=== PATIENT | female | born 1940 | race Caucasian/White ===

== ENCOUNTER 2024-11-30 10:23 | Observation (INO) | payer MEDICARE, SELFPAY ==
[2024-11-30 10:24] VITALS: BP 135/61; PULSE 84; RESP 14; TEMP 36.6; O2SAT 94; BMI 23.0
--- NOTE | 2024-11-30 10:35 | EDS_ITS ---
HPI History of Present Illness Chief Complaint: Back Detail of Chief Complaint: Atraumatic neck pain Informant: patient Onset/Context/Timing Onset: Days Context: Sudden Onset Timing: Continuous Quality: Sharp pain Location: Posterior neck Current Severity: Mild Maximum Severity: Severe Worsened by: Any type of movement Relieved by: Nothing Associated Symptoms Associated Symptoms: No radicular pain, no paresthesia, no weakness in her upper extremities Narrative Narrative: Patient is an 84-year-old woman. She presents from home by ambulance because of severe pain. Her daughter called the ambulance. She has taken [id number] medication and applied heat with no benefit. She denies direct or indirect trauma. She denies fall asleep on the sofa or chair. She denies radicular pain. She states she had some tingling in all her fingers yesterday. She did not have that before. She denies headache. She denies visual, ocular auditory symptoms. She denies cardiac or respiratory symptoms. She denies any new symptoms in her legs. She had fusion of the lumbar spine by Dr. El Jo at [facility]. She denies fever, chills night sweats. Denies weight gain or weight loss. She denies any recent dental procedures. Prior similar symptoms: No Recent Illness/Hospitalization: Yes [facility]SH [facility], 1928–1983 Home Medications ?Medication ?Instructions ?Recorded ?Last Taken ?Type hydroxyzine HCl 10 mg tablet 10 mg PO QHS 11/30/24 Unk nown History sertraline 100 mg tablet 200 mg PO DAILY 11/30/24 Unk nown History sumatriptan succinate 50 mg tablet mg PO 11/30/24 Unkn own History Allergy/AdvReac Type Severity Reaction Status Date / Time No Known Allergies Allergy Verified 11/30/24 10:25 Social History (Updated 11/30/24 @ 10:[address] Dorian Ballard MD) household members: family Smoking Status: Never smoker ROS ROS ED Constitutional Constitutional ED: Denies chills, fever(s), subjective, sweats or weight loss Eyes Eyes: Denies blurry vision or change in vision ENT ENT ED: Denies ear pain, rhinorrhea or sore throat Cardiovascular Cardiovascular: Denies chest pain, palpitations or racing heartbeat Respiratory/Chest Respiratory/Chest: Denies cough, dyspnea or dyspnea on exertion Gastrointestinal Gastrointestinal: Denies abdominal pain, nausea or vomiting Genitourinary Genitourinary ED: Denies dysuria, hematuria or urinary frequency Musculoskeletal Musculoskeletal: Reports neck pain; Denies arthralgias, back pain or myalgias Integumentary Denies rash Neurologic Neurologic: Denies paresthesias or weakness Hematologic/Lymphatic Hematologic/Lymphatic: Reports systems reviewed and no addt'l complaints, except as documented EXAM Physical Exam Const Vital Signs: 11/30/24 10:24 11/30/24 13:18 Temperature 98 F 98.1 F Temperature Source Temporal Pulse Rate 84 70 Respiratory Rate 14 14 Blood Pressure 135/61 H 113/66 Blood Pressure Mean 85 81 Pulse Ox 94 93 Oxygen Delivery Method Room Air Positive well nourished and well developed Constitutional Narrative: Patient appears uncomfortable. She is a thin woman. General Appearance ED: well developed; Negative for cyanotic, diaphoretic, NAD or pallor HEENT Reports moist mucous membranes HEENT Narrative: Head is atraumatic and normocephalic. Ears are normal. TMs normal. Nares are patent. Posterior pharynx is normal. trauma and tenderness Eyes PERRL and EOMs intact bilaterally General Eye ED: Negative for pale conjunctiva or scleral icterus Neck no lymphadenopathy, No supple and no JVD Neck Narrative: Patient has limited range of motion i.e. flexion, extension rotation right or left. She has predominantly Ilir lateral posterior cervical spine tenderness. There is no posterior cervical lymphadenopathy. There are no dermatologic lesions noted. Resp normal respiratory effort and clear to auscultation bilaterally Cardio regular rate, regular rhythm, S1 normal heart sound, S2 normal heart sound and no murmurs GI normal to inspection, nondistended, normoactive bowel sounds, non-tender, non-distended and no masses; Negative for hepatosplenomegaly Back/Spine Cervical Spine: cervical spine tenderness Cervical Spine Tenderness Details: C2, C3, C4, C5, C6 and C7 Thoracic Spine / Upper Back: Negative for thoracic spinal tenderness Lumbar Spine / Lower Back: Negative for lumbar spinal tenderness Extremity Extremity Narrative: Patient has significant surgical scar right knee. There is no clubbing or cyanosis of the upper or lower extremities. Patient has palpable distal pulses upper and lower extremity. Neuro oriented x3, CN's II-XII intact bilaterally and no sensory deficits noted Neuro Narrative: DTR are 3-4+ bicep, brachialis and tricep and 1+ at the patella and ankle. There is no abnormal sensation see 5 through T1 dermatome right or left upper extremity. Sensorium / Orientation: alert Motor Exam: strength 5/5 throughout Skin no rashes or lesions noted, no wounds and skin turgor normal General Skin Exam: Negative for elasticity normal, jaundice or pallor MDM MDM MDM Narrative Medical decision making narrative: Patient with atraumatic neck pain without radicular pain or sensory deficit. Her reflexes are hyperreflexic. Will start with x-ray. She was medicated with morphine for her pain. There are no prior records available Lab Data Attestation: I reviewed the patient's lab results. Lab results narrative: White count is slightly elevated. Patient does have anemia with normal indices. BMP has a normal BUN and creatinine however estimated creatinine clearance calculated is 37.5 with an estimated GFR of 80. Glucose slightly evaded at 112. Labs: Laboratory Results - last 24 hr 11/30/24 10:49 WBC 12.4 H RBC 3.31 L Hgb 9.0 L Hct 28.3 L MCV 85.5 MCH 27.2 MCHC 31.8 L RDW Std Deviation 45.6 H RDW Coeff of David 14.6 Plt Count 334 MPV 10.4 Sodium 141 Potassium 4.1 Chloride 102 Carbon Dioxide 27.9 Anion Gap 11 BUN 10 Creatinine 0.74 Estim Creat Clear Calc 37.60 L Est GFR (MDRD) Non-Af 80 BUN/Creatinine Ratio 14.0 Glucose 112 H Calcium 8.6 Radiography Chest X-Ray - ED: Read by ED Physician (5 view x-ray of the neck reveals some minimal degenerative changes. No significant narrowing of the cervical foramens right or left.) Diagnostic Testing: Clinical Impression(s) from Imaging Studies Cervical Spine X-Ray 11/30/24 11:00 IMPRESSION: Moderate cervical degenerative changes. Slight leftward offset of the dens of the axis, likely due to patient positioning. If continued clinical concern, CT C-spine could be obtained for further evaluation. Reading Location: [id number] Management Discussion w/another healthcare provider: Hospitalist (Spoke to Dr. Larkin. Clarification guarding patient's paresthesia, observation with consult to OT PT and case management) Treatment and Re-Evaluation :: There is states they were able to get patient off. She did ambulate with walker. She ambulated slowly. Concern by her nurse, Stevenson, is that daughter is not able to lift her so that she is able to walk. Comments:: The social services technician informed that her insurance requires a 3-day hospital stay. She just had qualified for 3-day hospital stay. She recommend observation status with OP and PT evaluation and case management to work with her insurance company for placement at nursing facility based on her age and risk for fall. Discharge Plan Dx/Rx/DC Orders Clinical Impression: Acute cervical myofascial strain, Difficulty in walking, Adult failure to thrive, Chronic anemia, Elevated blood-pressure reading without diagnosis of hypertension Disposition Disposition: Acute Care Hospital [facility]
[2024-11-30 10:55] LABS: Hematocrit 28.3 % (37-47); Mean Corp Hgb Conc 31.8 g/dL (32-36); Mean Corpuscular Hgb 27.2 pg (27.0-32.0); Mean Corpuscular Volume 85.5 fL (81-99); Mean Platelet Vol. 10.4 fl (6.2-12.0); Platelet Count 334 K/mm3 (150-450); RBC Distribution Width CV 14.6 % (11.6-14.6); RBC Distribution Width SD 45.6 fl (35.1-43.9); Red Blood Count 3.31 M/mm3 (4.2-5.4); White Blood Count 12.4 K/mm3 (4.4-11.0)
[2024-11-30] MEDS: Ondansetron 4 MG/2 ML Vial IV (10:55)
[2024-11-30] MEDS: Morphine 4 MG/ML Syringe IV (10:55)
--- NOTE | 2024-11-30 11:00 | RAD_ITS ---
PROCEDURE: CERV SPINE 4 OR 5 VIEWS 11/30/2024 REASON FOR EXAM: NECK PAIN TECHNIQUE: CERV SPINE 4 OR 5 VIEWS COMPARISON: None. FINDINGS: Vertebrae: Severe osseous demineralization. Mild multilevel vertebral body height loss. Slight leftward offset of the dens of axis on the odontoid radiograph. The bilateral lateral atlantoaxial joints are grossly symmetric. Disc spaces: At least moderate multilevel degenerative disc disease. Alignment: No obvious traumatic listhesis. Soft tissues: Unremarkable. RAD/Cerv Spine 4 or 5 Views IMPRESSION: Moderate cervical degenerative changes. Slight leftward offset of the dens of the axis, likely due to patient positioning. If continued clinical concern, CT C-spine could be obtained for further evaluation . Reading Location: [id number]
--- NOTE | 2024-11-30 11:00 | RAD_ITS ---
PROCEDURE: CERV SPINE 4 OR 5 VIEWS 11/30/2024 REASON FOR EXAM: NECK PAIN TECHNIQUE: CERV SPINE 4 OR 5 VIEWS COMPARISON: None. FINDINGS: Vertebrae: Severe osseous demineralization. Mild multilevel vertebral body height loss. Slight leftward offset of the dens of axis on the odontoid radiograph. The bilateral lateral atlantoaxial joints are grossly symmetric. Disc spaces: At least moderate multilevel degenerative disc disease. Alignment: No obvious traumatic listhesis. Soft tissues: Unremarkable. RAD/Cerv Spine 4 or 5 Views IMPRESSION: Moderate cervical degenerative changes. Slight leftward offset of the dens of the axis, likely due to patient positioning. If continued clinical concern, CT C-spine could be obtained for further evaluation . Reading Location: [id number]
[2024-11-30 11:11] LABS: Anion Gap 11 (5-15); BUN 10 mg/dL (4-19); Calcium,Total 8.6 mg/dL (7.6-11.0); Carbon Dioxide 27.9 mmol/L (21.0-32.0); Chloride 102 mmol/L (98-108); Creatinine, Serum 0.74 mg/dL (0.70-1.20); EST Glomerular Filtration Rate 80 (>60); Glucose 112 mg/dL (70-99); Potassium 4.1 mmol/L (3.3-5.1); Sodium Level 141 mmol/L (133-145)
[2024-11-30 13:18] VITALS: BP 113/66; PULSE 70; RESP 14; TEMP 36.7; O2SAT 93
--- NOTE | 2024-11-30 13:20 | CASEMGMT ---
Care Management Face to Face with patient for initial transition planning/care coordination assessment in the ED.? This screenplay writer introduced self and role at [facility]. Patient alert and oriented. Patient willing to participate in assessment and is able to answer all questions appropriately.? Care providers, pharmacy, and demographics verified. ?Patient?s daughter, Hyun Purcell, was also present and assisted when needed. Admitting Diagnosis: Acute Cervical Myofascial Strain Other diagnosis history: Including but not limited to: History of back and hand surgery, removal of kidney. PCP: Dr. Leonardo Lyles Specialists: Pain Management through [facility] in [place] (1x month), back surgeon: Dr. Tatiana Morrison and hand surgeon: Dr. Quintero [facility]: [facility] Insurance: Medicare Advantage/[facility] AARP Prescription Benefit: Yes with some co-pays Living Will/HPOA: Yes. Chemical Etch Operator requested Hyun to bring in a copy which she verbalized she would do. LNOK: Patient is and has two daughters.? Hyun resides in [place] and the whereabouts of Cheri are currently unknown as patient does not have any contact with her at this time. Living Arrangements: Patient lives alone in a [facility] apartment. Patient does not have any stairs leading in/out of apartment and denied any environmental barriers. ? Transportation: Patient drives and Hyun also assists when needed. DME: Standard walker, shower chair and grab bar in shower.? Patient appears to be in need of a RTS with handles, grab bar by toilet, lift chair, possible guard rails for bed to pull self-up, Emergency Response Device with a fall detection sensor, and a rollator in case patient needs to sit while ambulating. HHC: PT twice a week through [facility] that is supposed to start this week. Patient also reported she has a nurse and a pillowcase cutter that come out once a week through [facility]. ? SNF/Rehab: Previous SNF stay that was before 1989 after having kidney removed. Patient stated it was in [place]. Community Resources: Denied. Behavioral Health History: Anxiety, not medically treated. Patient described herself as anxious ?every day?. Patient goals: Patient wishes to discharge to an inpatient rehab/shelter facility so that she can receive more intensive skilled therapy so patient can improve strength so that she can transfer on her own, ambulate with ease and decrease overall fall risk.? Patient?s daughter Hyun has been staying with patient in her apartment since patient was discharged following a recent back surgery at [facility].? Patient stated it was supposed to be a 3 day inpatient stay that turned into a 3 week stay so patient declined therapy at that time, thinking she would be able to do it on her own, however patient has declined, become weaker and has developed a new pain in her neck that has developed since her surgery. Patient has been home for roughly a week and a half and Hyun believes that patient had already been approved for [facility]?s TCU. Patient denies any further needs or concerns at this time. Disposition Plan: Observation with referrals for OT and PT; RN CM/SW to follow for discharge planning needs that may arise. Thu Kurtz, CHIEF LOCK OPERATOR, CHAIN PERSON
--- NOTE | 2024-11-30 13:20 | CASEMGMT ---
Care Management Face to Face with patient for initial transition planning/care coordination assessment in the ED.? This flex o writer operator introduced self and role at [facility]. Patient alert and oriented. Patient willing to participate in assessment and is able to answer all questions appropriately.? Care providers, pharmacy, and demographics verified. ?Patient?s daughter, Hyun Purcell, was also present and assisted when needed. Admitting Diagnosis: Acute Cervical Myofascial Strain Other diagnosis history: Including but not limited to: History of back and hand surgery, removal of kidney. PCP: Dr. Leonardo Lyles Specialists: Pain Management through [facility] in [place] (1x month), back surgeon: Dr. Tatiana Morrison and hand surgeon: Dr. Quintero [facility]acy: [facility] Insurance: Medicare Advantage/[facility] AARP Prescription Benefit: Yes with some co-pays Living Will/HPOA: Yes. Animal Health Technician requested Hyun to bring in a copy which she verbalized she would do. LNOK: Patient is and has two daughters.? Hyun resides in [place] and the whereabouts of Cheri are currently unknown as patient does not have any contact with her at this time. Living Arrangements: Patient lives alone in a [facility] apartment. Patient does not have any stairs leading in/out of apartment and denied any environmental barriers. ? Transportation: Patient drives and Hyun also assists when needed. DME: Standard walker, shower chair and grab bar in shower.? Patient appears to be in need of a RTS with handles, grab bar by toilet, lift chair, possible guard rails for bed to pull self-up, Emergency Response Device with a fall detection sensor, and a rollator in case patient needs to sit while ambulating. HHC: PT twice a week through [facility] that is supposed to start this week. Patient also reported she has a nurse and a case filler that come out once a week through [facility]. ? SNF/Rehab: Previous SNF stay that was before 1989 after having kidney removed. Patient stated it was in [place]. Community Resources: Denied. Behavioral Health History: Anxiety, not medically treated. Patient described herself as anxious ?every day?. Patient goals: Patient wishes to discharge to an inpatient rehab/residential facility so that she can receive more intensive skilled therapy so patient can improve strength so that she can transfer on her own, ambulate with ease and decrease overall fall risk.? Patient?s daughter Hyun has been staying with patient in her apartment since patient was discharged following a recent back surgery at [facility].? Patient stated it was supposed to be a 3 day inpatient stay that turned into a 3 week stay so patient declined therapy at that time, thinking she would be able to do it on her own, however patient has declined, become weaker and has developed a new pain in her neck that has developed since her surgery. Patient has been home for roughly a week and a half and Hyun believes that patient had already been approved for [facility]?s TCU. Patient denies any further needs or concerns at this time. Disposition Plan: Observation with referrals for OT and PT; RN CM/SW to follow for discharge planning needs that may arise. Thu Kurtz, GAUGE AND WEIGH MACHINE OPERATOR, EXPORT FREIGHT SPECIALIST
[2024-11-30 13:54] VITALS: BMI 23.0
[2024-11-30] MEDS: Acetaminophen 325 MG Tablet 650 MG PO (14:29)
[2024-11-30] MEDS: oxyCODONE 5 MG Tablet PO ×2 (14:29→21:40)
[2024-11-30 14:38] VITALS: BP 107/57; PULSE 75; RESP 16; TEMP 36.8; O2SAT 94
--- NOTE | 2024-11-30 15:41 | PCM.HP.STD ---
HPI - General General Date of Admission: 11/30/24 Date of Service: 11/30/24 Chief Complaint: Weakness HPI Narrative JERSON TAMEZ, is a 84 F who presents with weakness. Approximate 3 weeks ago, patient underwent back surgery by Dr. Morrison at [facility]. Patient said that she was doing well and then became sick. And when she was sick she was not seen by therapy during then nor thereafter. And she is just progressively gotten weaker during this time. Addition over the past week she has had significant neck pain. She denies any falls or injury. But because the neck pain and weakness, she was seen in the emergency room here. She did have a CAT scan that showed questionable issue with the dens but was given patient had not fallen. But given that she was unable to ambulate safely, the hospital service was contacted for admission. [facility] Medical History Colitis due to Clostridioides difficile Pain in right hip Infection due to Norovirus species Vitamin D deficiency Severe malnutrition Gastroenteritis and colitis, viral Stress incontinence in female Bursitis of hip, right Postsurgical hypothyroidism Adjustment disorder with mixed anxiety and depressed mood Anxiety associated with depression Spinal stenosis of lumbar region Thyrotoxicosis Osteopenia of multiple sites Atrophy of vagina Major depressive disorder Low back pain Urgency of urination Myalgia Osteoporosis of lumbar spine Migraines Chronic GERD without esophagitis GERD (gastroesophageal reflux disease) Hysterectomy planned Colonoscopy planned Home Medications ?Medication ?Instructions ?Recorded ?Last Taken ?Type gabapentin 300 mg capsule 300 mg PO BID 11/30/24 11/29/24 History hydroxyzine HCl 10 mg tablet 10 mg PO QHS 11/30/24 Unknown History levothyroxine 88 mcg tablet 88 mcg PO DAILY 11/30/24 11/30/24 History oxycodone 10 mg tablet 10 mg PO Q4H PRN pain 11/30/24 11/29/24 History sertraline 100 mg tablet 200 mg PO DAILY 11/30/24 11/29/24 History sumatriptan succinate 50 mg tablet 50 mg PO .COMPLEX 11/30/24 Unknown History Allergy/AdvReac Type Severity Reaction Status Date / Time No Known Allergies Allergy Verified 11/30/24 10:25 Surgical History History of arthroplasty of right ankle History of thyroidectomy, total History of nephrectomy, right History of total hip replacement Hx of esophagogastroduodenoscopy Hx of cholecystectomy History of back surgery Social History household members: family Smoking Status: Never smoker ROS ROS Narrative All review of systems were negative except as mentioned above in the history of present illness and the other review of systems. Vital Signs Vital Signs Vital Signs: 11/30/24 10:24 11/30/24 13:18 11/30/24 14:38 Temperature 36.6 C 36.7 C 36.8 C Temperature Source Temporal Oral Pulse Rate 84 70 75 Respiratory Rate 14 14 16 Respiratory Effort Respiratory Depth Respiratory Pattern Blood Pressure 135/61 H 113/66 107/57 L Blood Pressure Mean 85 81 73 Blood Pressure Source Monitor Blood Pressure Position Semi-Fowlers Blood Pressure Location Left Arm Pulse Ox 94 93 94 Oxygen Delivery Method Room Air Room Air 11/30/24 14:46 Temperature Temperature Source Pulse Rate Respiratory Rate Respiratory Effort Normal Non-Labored Respiratory Depth Normal Respiratory Pattern Normal Blood Pressure Blood Pressure Mean Blood Pressure Source Blood Pressure Position Blood Pressure Location Pulse Ox Oxygen Delivery Method Room Air Weight Weight: 53.5 kg Body Mass Index (BMI) 23.0 Physical Exam Const alert and no apparent distress HEENT normocephalic and head/scalp atraumatic Eyes Eyes Narrative: No icterus Neck Neck Narrative: Bilateral posterior cervical muscle tenderness with that being more prominent on the left than on the right. Resp normal respiratory effort, no retractions, no use of accessory muscles and clear to auscultation bilaterally Cardio regular rate, regular rhythm, S1 normal heart sound and S2 normal heart sound GI normal to inspection, nondistended, normoactive bowel sounds, soft to palpation, non-tender and non-distended Extremity normal to inspection and no clubbing, cyanosis or edema Neuro moves all extremities Sensorium / Orientation: awake and alert Psych affect normal Results Lab / Micro Data 11/30/24 10:49 11/30/24 10:49 Labs: Laboratory Results - last 24 hr 11/30/24 10:49: WBC 12.4 H, RBC 3.31 L, Hgb 9.0 L, Hct 28.3 L, MCV 85.5, MCH 27.2, MCHC 31.8 L, RDW Std Deviation 45.6 H, RDW Coeff of David 14.6, Plt Count 334, MPV 10.4, Sodium 141, Potassium 4.1, Chloride 102, Carbon Dioxide 27.9, Anion Gap 11, BUN 10, Creatinine 0.74, Estim Creat Clear Calc 37.60 L, Est GFR (MDRD) Non-Af 80, BUN/Creatinine Ratio 14.0, Glucose 112 H, Calcium 8.6 Imaging Radiology Impression Cervical Spine X-Ray 11/30/24 11:00 IMPRESSION: Moderate cervical degenerative changes. Slight leftward offset of the dens of the axis, likely due to patient positioning. If continued clinical concern, CT C-spine could be obtained for further evaluation. Reading Location: [id number] Assessment & Plan Assessment/Plan (1) Adult failure to thrive: PLAN: Secondary recent back surgery and not being able to engage in therapy due to recent illness and then just not getting reestablished. PT OT evaluate and treat Case management to assist with disposition Anticipate the patient will require [facility] when she is ready for discharge. (2) Acute cervical myofascial strain: PLAN: Atraumatic. I suspect it is probably due to some position she may have slept in. There is no trauma so I do not feel the issue with her dens is concerning at all as she has full range of motion. Neck pain seems to be more muscular anyways. Will schedule acetaminophen, add as needed ketorolac and a Lidoderm patch. PLAN: Plan Recent back surgery: Incision appears to be clean and intact. Follow-up with Dr. Morrison as outpatient. VTE prophylaxis with enoxaparin CODE STATUS: Addressed with the patient. Patient wishes to be full code Charges/Coding Visit Charges Inpatient E&M: 59979 Init Hosp L2
[2024-11-30] MEDS: Lidocaine 5% Patch 1 PATCH TOPICAL (16:40)
[2024-11-30] MEDS: Ketorolac 15 MG/ML Vial IV (16:40)
[2024-11-30] MEDS: 0.9% Saline Lock 10 ML Syringe IV (16:40)
[2024-11-30 21:28] VITALS: BP 116/60; PULSE 65; RESP 16; TEMP 36.6; O2SAT 97
[2024-11-30] MEDS: hydrOXYzine 10 MG Tablet PO (21:40)
[2024-11-30] MEDS: Acetaminophen 500 MG Tablet 1000 MG PO (21:41)
[2024-12-01 05:15] VITALS: BP 123/67; PULSE 69; RESP 16; TEMP 36.7; O2SAT 95
[2024-12-01] MEDS: Acetaminophen 500 MG Tablet 1000 MG PO ×2 (05:17→15:04)
[2024-12-01] MEDS: 0.9% Saline Lock 10 ML Syringe IV ×2 (05:18→12:25)
[2024-12-01] MEDS: Ketorolac 15 MG/ML Vial IV ×2 (05:18→12:24)
--- NOTE | 2024-12-01 07:40 | PN.HOSP_ITS ---
Reason for Visit Reason for Visit: Diagnoses Adult failure to thrive (11/30/24) Strain of muscle, fascia and tendon at neck level, initial encounter (11/30/24) Subjective Subjective Neck pain feeling better Objective Data Objective Data Vital Signs: Vital Signs Temp Pulse Resp BP Pulse Ox O2 Del Method 36.7 C 69 16 123/67 H 95 Room Air 12/01/24 05:15 12/01/24 05:15 12/01/24 05:15 12/01/24 05:15 12/01/24 05:15 12/01/24 05:15 Oxygen Delivery Method Room Air Weight: 53.5 kg Body Mass Index (BMI) 23.0 Intake & Output: Intake and Output for Last 24 Hours 11/29/24 11/30/24 12/01/24 23:59 23:59 23:59 Intake Total 400 / 400 Balance 400 / 400 Lab / Micro Data 11/30/24 10:49 11/30/24 10:49 Labs: Laboratory Results - last 24 hr 11/30/24 10:49: WBC 12.4 H, RBC 3.31 L, Hgb 9.0 L, Hct 28.3 L, MCV 85.5, MCH 27.2, MCHC 31.8 L, RDW Std Deviation 45.6 H, RDW Coeff of David 14.6, Plt Count 334, MPV 10.4, Sodium 141, Potassium 4.1, Chloride 102, Carbon Dioxide 27.9, Anion Gap 11, BUN 10, Creatinine 0.74, Estim Creat Clear Calc 37.60 L, Est GFR (MDRD) Non-Af 80, BUN/Creatinine Ratio 14.0, Glucose 112 H, Calcium 8.6 Radiography Diagnostic Testing: Radiology Impression Cervical Spine X-Ray 11/30/24 11:00 IMPRESSION: Moderate cervical degenerative changes. Slight leftward offset of the dens of the axis, likely due to patient positioning. If continued clinical concern, CT C-spine could be obtained for further evaluation. Reading Location: [id number] Physical Exam Const alert and no apparent distress HEENT head/scalp atraumatic and moist oral mucous membranes Neck Neck Narrative: bilateral paraspinal muscle tenderness, improved. Resp normal respiratory effort, no retractions, no use of accessory muscles and clear to auscultation bilaterally Cardio regular rate, regular rhythm, S1 normal heart sound and S2 normal heart sound GI normal to inspection, nondistended, normoactive bowel sounds, soft to palpation, non-tender and non-distended Extremity normal to inspection, full ROM and no clubbing, cyanosis or edema Neuro oriented x3 and CN's II-XII intact bilaterally Sensorium / Orientation: awake and alert Assessment & Plan Assessment/Plan (1) Adult failure to thrive: PLAN: Secondary recent back surgery and not being able to engage in therapy due to recent illness and then just not getting reestablished. PT OT evaluate and treat Case management to assist with disposition Anticipate the patient will require [facility]ent[facility] facility when she is ready for discharge. (2) Acute cervical myofascial strain: PLAN: Atraumatic. I suspect it is probably due to some position she may have slept in. There is no trauma so I do not feel the issue with her dens is concerning at all as she has full range of motion. Neck pain seems to be more muscular Will schedule acetaminophen, add as needed ketorolac and a Lidoderm patch. PLAN: Plan Recent back surgery: Incision appears to be clean and intact. Follow-up with Dr. Morrison as outpatient. VTE prophylaxis with enoxaparin CODE STATUS: Addressed with the patient. Patient wishes to be full code Charges/Coding Visit Charges Inpatient E&M: 13835 Subs Hosp L1
[2024-12-01 09:17] VITALS: BP 115/54; PULSE 84; RESP 16; TEMP 36.5; O2SAT 96
[2024-12-01] MEDS: Lidocaine 5% Patch 1 PATCH TOPICAL (09:37)
[2024-12-01] MEDS: Enoxaparin 40 MG/0.4 ML Syringe SC (09:37)
[2024-12-01] MEDS: Sertraline 100 MG Tablet 200 MG PO (09:37)
[2024-12-01] MEDS: oxyCODONE 5 MG Tablet PO ×2 (09:38→15:04)
--- NOTE | 2024-12-01 11:45 | CASEMGMT ---
Addendum entered by Tonia Rodriguez 12/01/24 14:26: Social Work- SW received notice that TCU accepted and precert started. Physician notified. Pt notified. SW remains available to follow. KIM Morrison Original Note: Social Work- SW met with pt and pt dtr Hyun to discuss discharge planning. SW introduced self and role; pt agreeable to meeting. Pt dtr reports that pt was referred to TCU over a week ago while pt was at [facility]; pt dtr reports that they did not know if pt was approved. Pt reports TCU remains FOC. SW completed referral to TCU. SW remains available to follow. KIM Morrison
--- NOTE | 2024-12-01 11:45 | CASEMGMT ---
Addendum entered by Tonia Rodriguez 12/01/24 14:26: Social Work- SW received notice that TCU accepted and precert started. Physician notified. Pt notified. SW remains available to follow. KIM Morrison Original Note: Social Work- SW met with pt and pt dtr Hyun to discuss discharge planning. SW introduced self and role; pt agreeable to meeting. Pt dtr reports that pt was referred to TCU over a week ago while pt was at [facility]; pt dtr reports that they did not know if pt was approved. Pt reports TCU remains FOC. SW completed referral to TCU. SW remains available to follow. KIM Morrison
--- NOTE | 2024-12-01 12:25 | CASEMGMT ---
Received tc from Emma at [facility] stating pt was active and requesting update in [facility]. Update sent at this time.
--- NOTE | 2024-12-01 12:25 | CASEMGMT ---
Received tc from Emma at [facility] stating pt was active and requesting update in [facility]. Update sent at this time.
[2024-12-01 14:36] LABS: Absolute Lymphocyte Count 1.92 X10^3/uL (0.83-4.51); Absolute Neutrophil Count 6.6 X10^3/uL (2.0-7.7); Basophil# 0.03 X10^3/uL; Basophil% 0.3 % (0-1); Eosinophil# 0.02 X10^3/uL; Eosinophils% 0.2 % (0-5); Hematocrit 29.5 % (37-47); Hemoglobin 9.2 g/dL (12.0-15.0); Lymphocyte # 1.92 X10^3/ul (0.83-4.51); Lymphocyte % 17.7 % (19-41); Mean Corp Hgb Conc 31.2 g/dL (32-36); Mean Corpuscular Hgb 27.4 pg (27.0-32.0); Mean Corpuscular Volume 87.8 fL (81-99); Mean Platelet Vol. 10.7 fl (6.2-12.0); Monocyte# 2.17 X10^3/uL; NRBC Flagged by Analyzer 0 % (0-5); Neutrophil # 6.56 X10^3/uL (2.7-7.7); Neutrophil % 60.5 % (47-70); POSITIVE DIFFERENTIAL YES; Platelet Count 321 K/mm3 (150-450); RBC Distribution Width CV 14.7 % (11.6-14.6); RBC Distribution Width SD 47.7 fl (35.1-43.9); Red Blood Count 3.36 M/mm3 (4.2-5.4); White Blood Count 10.8 K/mm3 (4.4-11.0)
[2024-12-01 15:16] LABS: Differential Indicated SCAN CRITERIA MET
[2024-12-01 15:31] LABS: Anion Gap 12 (5-15); BUN 21 mg/dL (4-19); BUN/Creat Ratio 20.4 RATIO (10-20); Calcium,Total 8.6 mg/dL (7.6-11.0); Carbon Dioxide 27.7 mmol/L (21.0-32.0); Chloride 103 mmol/L (98-108); Creatinine, Serum 1.04 mg/dL (0.70-1.20); EST Glomerular Filtration Rate 53 (>60); Estimated Creatinine Clearance 28.92 ml/min (50-250); Glucose 108 mg/dL (70-99); Potassium 3.9 mmol/L (3.3-5.1); Sodium Level 142 mmol/L (133-145)
--- NOTE | 2024-12-01 15:37 | CASEMGMT ---
Met with patient to complete PETERS form. PETERS form and its content were verbally explained and patient's questions were answered to the best of my ability.? Patient voiced understanding and signed PETERS form.? Patient provided a copy of signed PETERS form and original placed in patient's chart.? Patient had no further questions. Emma Hernández, Discharge Planning Asst
[2024-12-01 15:55] VITALS: BP 125/59; PULSE 72; RESP 16; TEMP 36.8; O2SAT 96
--- NOTE | 2024-12-01 15:57 | PCM.TXEXTCAR ---
Diet Diet Order/Speech Therapy: INPATIENT Hospital Diet / Speech Therapy Order(s) 11/30/24 13:54 Diet: Regular - General Food consistency:: Regular Liquid Consistency:: Regular/Thin Routine Orders/Code Status Code Status: Full Code DC O2, CPAP, BIPAP needs Home O2 Discharge instructions: No Wound(s) left arm: Wound Type: Abrasion Therapies Physical Therapy: Eval and Treat Occupational Therapy: Eval and Treat Problem/Diagnosis (1) Adult failure to thrive: Status: Acute Code(s): R62.7 - Adult failure to thrive Plan: Secondary recent back surgery and not being able to engage in therapy due to recent illness and then just not getting reestablished. PT OT evaluate and treat Case management to assist with disposition Anticipate the patient will require senior care facility when she is ready for discharge. (2) Acute cervical myofascial strain: Status: Acute Code(s): S16.1XXA - Strain of muscle, fascia and tendon at neck level, initial encounter Plan: Atraumatic. I suspect it is probably due to some position she may have slept in. There is no trauma so I do not feel the issue with her dens is concerning at all as she has full range of motion. Neck pain seems to be more muscular Will schedule acetaminophen, add as needed ketorolac and a Lidoderm patch. Improving. Plan Recent back surgery: Incision appears to be clean and intact. Follow-up with Dr. Morrison as outpatient. VTE prophylaxis with enoxaparin CODE STATUS: Addressed with the patient. Patient wishes to be full code Allergies/Procedures Done in Hospital Allergies No Known Allergies Allergy (Verified 11/30/24 10:25) Type of Care/Length of Stay Estimated LOS: Convalescent Care Less Than 30 days Type of Care Needed: Skilled Rehab Potential: Good Prognosis: Good Additional Orders/Day of Discharge Day of Discharge: 12/01/24 Discharge Plan Admission Admit Date/Time: 11/30/24 13:18 Primary Reason for Your Visit: debility. neck strain. Attending Provider: Iván Larkin Primary Care Provider: [facility] ,Out of Discharge Orders/Prescriptions Prescriptions: New acetaminophen 500 mg Tablet 1,000 mg PO Q8 Qty: 0 0RF lidocaine 5 % Adhesive Patch,Medicated 1 patch topical DAILY Qty: 0 0RF Protocol: *Topical Application Instructions APPLICATION INSTRUCTIONS: to neck Continued sertraline 100 mg tablet 200 mg PO DAILY sumatriptan succinate 50 mg tablet 50 mg PO .COMPLEX Rx Instructions: 50 mg orally AT ONSET OF HANKS; hydroxyzine HCl 10 mg tablet 10 mg PO QHS levothyroxine 88 mcg tablet 88 mcg PO DAILY gabapentin 300 mg capsule 300 mg PO BID oxycodone 10 mg tablet 10 mg PO Q4H PRN (Reason: pain) 3 Days Qty: 12 0RF Referrals / Follow Up: [facility] Doctor,Out of [Primary Care Provider] - Disposition Disposition (needs filled in before D/C Order can be placed): [facility] Facility
--- NOTE | 2024-12-01 16:02 | DS.PCM_ITS ---
Providers Date of Admission: 11/30/24 Primary Care Physician: Out of [facility] Doctor Reason For Visit: FAILURE TO THRIVE Diagnosis Discharge Diagnosis (1) Adult failure to thrive: Status: Acute Code(s): R62.7 - Adult failure to thrive Plan: Secondary recent back surgery and not being able to engage in therapy due to recent illness and then just not getting reestablished. PT OT evaluate and treat Case management to assist with disposition Anticipate the patient will require snf facility when she is ready for discharge. (2) Acute cervical myofascial strain: Status: Acute Code(s): S16.1XXA - Strain of muscle, fascia and tendon at neck level, initial encounter Plan: Atraumatic. I suspect it is probably due to some position she may have slept in. There is no trauma so I do not feel the issue with her dens is concerning at all as she has full range of motion. Neck pain seems to be more muscular Will schedule acetaminophen, add as needed ketorolac and a Lidoderm patch. Improving. Plan Recent back surgery: Incision appears to be clean and intact. Follow-up with Dr. Morrison as outpatient. VTE prophylaxis with enoxaparin CODE STATUS: Addressed with the patient. Patient wishes to be full code Medications at Discharge Home Medications gabapentin 300 mg capsule 300 mg PO BID 11/30/24 hydroxyzine HCl 10 mg tablet 10 mg PO QHS 11/30/24 levothyroxine 88 mcg tablet 88 mcg PO DAILY 11/30/24 sertraline 100 mg tablet 200 mg PO DAILY 11/30/24 sumatriptan succinate 50 mg tablet 50 mg PO .COMPLEX 11/30/24 acetaminophen 500 mg tablet 1,000 mg (2 x 500 mg) PO Q8 #0 tabs 12/01/24 lidocaine 5 % topical patch 1 patch topical DAILY #0 ea 12/01/24 oxycodone 10 mg tablet 10 mg PO Q4H PRN pain 3 days #12 tabs 12/01/24 Hospital Course Operations None Procedures None Summary of Care Provided Minutes Spent on Discharge: 32 Hospital Course: This is an 84-year-old female presents with weakness. 3 weeks prior had had back surgery and was doing well but then became sick and then was not seen during therapy and then had not gotten reestablished with therapy just continue to get weaker and weaker. Complicating this she developed severe neck pain that was atraumatic. Neck pain was musculoskeletal and. Patient was brought in pain control was initiated and patient felt better. Patient was evaluated and was deemed appropriate for the transitional care unit and patient will be discharged there today. Weight / BMI Weight Weight: 53.5 kg Body Mass Index (BMI) 23.0 ABG / Lab / Microbiology Data 12/01/24 14:24 12/01/24 14:24 Laboratory: Laboratory Results - last 24 hr 12/01/24 14:24: WBC 10.8, RBC 3.36 L, Hgb 9.2 L, Hct 29.5 L, MCV 87.8, MCH 27.4, MCHC 31.2 L, RDW Std Deviation 47.7 H, RDW Coeff of David 14.7 H, Plt Count 321, MPV 10.7, Immature Gran % (Auto) 1.300 H, Neut % (Auto) 60.5, Lymph % (Auto) 17.7 L, [place] % (Auto) 20.0 H, Eos % (Auto) 0.2, Baso % (Auto) 0.3, Absolute Neuts (auto) 6.6, Absolute Lymphs (auto) 1.92, Nucleated RBC % 0, Sodium 142, Potassium 3.9, Chloride 103, Carbon Dioxide 27.7, Anion Gap 12, BUN 21 H, Creatinine 1.04, Estim Creat Clear Calc 28.92 L, Est GFR (MDRD) Non-Af 53 L, B UN/Creatinine Ratio 20.4 H, Glucose 108 H, Calcium 8.6 D/C Instructions Discharge Diet: No restrictions DC O2, CPAP, BIPAP Needs Home O2 Discharge instructions: No Meaningful Use Info Meaningful Use Meaningful Use Diagnoses (Choose all that apply): None applicable Ischemic Stroke Statin Dosing Therapy Reference: STATIN DOSE THERAPY REFERENCE: * Patients > 75 years receive moderate or high dose statin therapy. * Patients 75 years or YOUNGER should receive HIGH intensity statin dose unless contraindicated. You will be required to document reason for non-treatment if statin daily dose does not meet guidelines. HIGH DOSE STATIN THERAPY DAILY Atorvastatin > than or = to 40 mg Rosuvastatin > than or = to 20 mg Amlodipine + Atorvastatin > than or = to 2.5/40 mg Ezetimibe + Simvastatin 10/80 mg Simvastatin 80mg Discharge Plan Admission Admit Date/Time: 11/30/24 13:18 Primary Reason for Your Visit: debility. neck strain. Attending Provider: Iván Larkin Primary Care Provider: Dwayne Snyder,Out of Discharge Orders/Prescriptions Prescriptions: New acetaminophen 500 mg Tablet 1,000 mg PO Q8 Qty: 0 0RF lidocaine 5 % Adhesive Patch,Medicated 1 patch topical DAILY Qty: 0 0RF Protocol: *Topical Application Instructions APPLICATION INSTRUCTIONS: to neck Continued sertraline 100 mg tablet 200 mg PO DAILY sumatriptan succinate 50 mg tablet 50 mg PO .COMPLEX Rx Instructions: 50 mg orally AT ONSET OF HANKS; hydroxyzine HCl 10 mg tablet 10 mg PO QHS levothyroxine 88 mcg tablet 88 mcg PO DAILY gabapentin 300 mg capsule 300 mg PO BID oxycodone 10 mg tablet 10 mg PO Q4H PRN (Reason: pain) 3 Days Qty: 12 0RF Referrals / Follow Up: Dwayne Snyder,Out of [Primary Care Provider] - Disposition Disposition (needs filled in before D/C Order can be placed): [facility] Facility Charges/Coding Visit Charges Inpatient E&M: 05476 Disch Hosp >30min
[2024-12-01 16:20] LABS: Platelet Estimate A (ADEQ)
--- NOTE | 2024-12-01 16:42 | CASEMGMT ---
Social Work- TCU received precert. Physician updated and feels pt is medically ready for discharge. Pt notified. Pt bedside nurse updated. SW left a non-descript voicemil for pt dtr. Plan: TCU; skilled level of care KIM Morrison
== END 2024-12-01 17:30 | disposition skilled nursing facility (03) ==
LOC: ED 13:26 → MS3 13:28
PROVIDERS: Emergency Provider Emergency Medicine
DX: S16.1XXA Strain of muscle, fascia and tendon at neck level, initial encounter (principal); R62.7 Adult failure to thrive; D64.9 Anemia, unspecified; R26.2 Difficulty in walking, not elsewhere classified; R03.0 Elevated blood-pressure reading, without diagnosis of hypertension; R53.1 Weakness; Z79.890 Hormone replacement therapy; Z98.1 Arthrodesis status; Z79.899 Other long term (current) drug therapy; E07.9 Disorder of thyroid, unspecified; Z68.23 Body mass index [BMI] 23.0-23.9, adult; X58.XXXA Exposure to other specified factors, initial encounter
CPT/HCPCS: 72050; 80048; 85025; 85027; 96372; 96374; 96375; 96376; 97162; 97166; 99221; 99285; A4216; G0378; J2405

== ENCOUNTER 2024-12-01 17:40 | Inpatient (IN) | payer MEDICARE, SELFPAY ==
[2024-12-01 18:11] VITALS: BP 117/60; PULSE 67; RESP 16; TEMP 36.3; O2SAT 93; BMI 22.4
[2024-12-01 20:20] VITALS: BP 116/50; PULSE 64; RESP 16; O2SAT 96
--- NOTE | 2024-12-01 20:32 | HP.PCM_ITS ---
HPI - General General Date of Admission: 12/01/24 Date of Service: 12/02/24 Chief Complaint: Here for rehabilitation. HPI Narrative JERSON TAMEZ, is a 84 Female who presents with followin11/30/2024 [facility] ED atraumatic neck pain, back pain. OTC medications, heat not helpful, tingling in all fingers which is new. History lumbar spine surgery with Dr. Morrison at [facility] recently. Reflexes hyperreflexic, Morphine given for pain. Unable to get up, but able to walk slowly with walker. Unable to be cared for at home, daughter not able to lift her. 11/30/2024 Admit [facility]. Recent back surgery. PT/OT/CM for SNF. Tylenol, Toradol, Lidoderm for pain control. 12/01/2024 Neck pain better. PT/OT SNF, FTT 2/2 inability to do PT after spine surgery due to illness. Continue pain medications. 12/01/2024 Admit to TCU with debility, here for rehabilitation, strengthening, prior to discharge home with family. COUNT INCLUDES [facility] Medical History (Updated 12/01/24 @ 20:[address] Ramana Tsai MD) Colitis due to Clostridioides difficile Pain in right hip Infection due to Norovirus species Vitamin D deficiency Severe malnutrition Gastroenteritis and colitis, viral Stress incontinence in female Bursitis of hip, right Postsurgical hypothyroidism Adjustment disorder with mixed anxiety and depressed mood Anxiety associated with depression Spinal stenosis of lumbar region Thyrotoxicosis Osteopenia of multiple sites Atrophy of vagina Major depressive disorder Low back pain Urgency of urination Myalgia Osteoporosis of lumbar spine Migraines Chronic GERD without esophagitis GERD (gastroesophageal reflux disease) Hysterectomy planned Colonoscopy planned Home Medications ?Medication ?Instructions ?Recorded ?Last Taken ?Type gabapentin 300 mg capsule 300 mg PO BID Nerve Pain 11/29/24 History hydroxyzine HCl 10 mg tablet 10 mg PO QHS Anxiety 11/1011/30/24 21:40 History levothyroxine 88 mcg tablet 88 mcg PO DAILY Thyroid 11/30/24 History sertraline 100 mg tablet 200 mg PO DAILY Mood 5 12/01/24 09:40 History sumatriptan succinate 50 mg tablet 50 mg PO .COMPLEX H eadache 11/30/24 Unknown History acetaminophen 500 mg tablet 1,000 mg (2 x 500 mg) PO Q 8 Pain 12/01/24 12/01/24 15:05 Rx #0 tabs lidocaine 5 % topical patch 1 patch topical DAILY Pain #0 ea 12/01/24 12/01/24 09:40 Rx oxycodone 10 mg tablet 10 mg PO Q4H PRN pain 3 days #12 12/01/24 11/29/24 Rx tabs Allergy/AdvReac Type Severity Reaction Status Date / Time No Known Allergies Allergy Verified 11/30/24 10:25 Surgical History (Updated 12/01/24 @ 20:[address] Ramana Tsai MD) History of arthroplasty of right ankle History of thyroidectomy, total History of nephrectomy, right History of total hip replacement Hx of esophagogastroduodenoscopy Hx of cholecystectomy History of back surgery Social History (Updated 12/01/24 @ 20:[address] Ramana Tsai MD) household members: family Smoking Status: Never smoker alcohol intake: never substance use type: does not use ROS Constitutional Constitutional: Reports weakness; Denies chills, fever(s) or weight gain ENT HEENT: Denies headache(s), nasal congestion or nasal discharge Cardiovascular Cardiovascular: Denies chest pain or palpitations Respiratory/Chest Respiratory/Chest: Denies cough, excessive phlegm production or shortness of breath with exertion Gastrointestinal Gastrointestinal: Denies abdominal pain, nausea or vomiting Genitourinary Genitourinary: Denies dysuria Musculoskeletal Musculoskeletal: Denies joint pain or joint swelling Integumentary Integumentary: Denies rash or wounds Neurologic Neurologic: Denies focal weakness, numbness or tingling Psychiatric Psychiatric: Denies anxiety, auditory hallucinations, depression, homicidal ideation or suicidal ideation Vital Signs Vital Signs Vital Signs: 12/01/24 18:11 12/01/24 20:20 Temperature 97.3 F L Temperature Source Temporal Pulse Rate 67 64 Respiratory Rate 16 16 Blood Pressure 117/60 116/50 L Blood Pressure Mean 79 72 Blood Pressure Source Monitor Monitor Blood Pressure Position Semi-Fowlers Semi-Fowlers Blood Pressure Location Right Arm Left Arm Pulse Ox 93 96 Oxygen Delivery Method Room Air Room Air Weight Weight: 52.072 kg Body Mass Index (BMI) 22.4 Physical Exam Const alert General Appearance: cooperative HEENT normocephalic Eyes PERRL and EOMs intact bilaterally Neck supple, no JVD and no carotid bruits Resp normal respiratory effort, normal air movement and clear to auscultation bilaterally Cardio regular rate and regular rhythm GI normal to inspection, nondistended, normoactive bowel sounds, non-tender and non-distended Extremity normal capillary refill General Extremity: Negative for edema Skin no rashes or lesions noted General Skin Exam: no breakdown Psych affect normal Appearance: appropriate Results Lab / Micro Data 12/02/24 05:18 12/02/24 05:18 Assessment & Plan Assessment/Plan (1) Debility: (2) Failure to thrive: (3) Neck pain: (4) History of lumbosacral spine surgery: (5) Pruritus: (6) Depression: (7) Migraines: PLAN: Plan 84 year old female with below past medical history hospitalized for failure to thrive, intractable neck pain, recent lumbar spine surgery, admitted to TCU with debility, here for rehabilitation, strengthening, prior to discharge home with family. * Debility - PT/OT. * Pain - Tylenol 1000mg q8, Oxycodone 10mg q4 prn pain (1-10), Lidoderm patch td daily. * Bowel - senna/colace 2 tablets bid, Magnesium citrate 300mL daily prn. * Adult immunization - Administer pneumonia vaccine, covid vaccine, flu vaccine as appropriate. * DVT prophylaxis - Lovenox 40mg sc daily. * Neuropathic pain - Gabapentin 300mg bid. * Insomnia - Hydroxyzine 10mg qhs. * Hypothyroidism - Levothyroxine 88mcg daily. * Migraine - Maxalt 10mg x 1 prn. The following psychotropic medication was present on admission: Sertraline 200mg daily. Psychotropic medication therapy is indicated for a diagnosis of: Major Depression. Based on my clinical evaluation, continuation of the medication is necessary at this time. Gradual dose reduction plan (select one): ____ GDR will be attempted. Will monitor patient symptoms and behaviors in response to GDR. __x__ GRD contraindicated. Reason contraindicated: stable chronic group home use.
[2024-12-01] MEDS: Senna/Docusate Sodium 1 Tablet 2 TABLET PO (22:49)
[2024-12-02 05:58] LABS: Hematocrit 28.5 % (37-47); Hemoglobin 8.9 g/dL (12.0-15.0); Immature Granulocytes Count 0.150 X10^3/uL (0.0-0.0); Mean Corp Hgb Conc 31.2 g/dL (32-36); Mean Corpuscular Volume 87.4 fL (81-99); Mean Platelet Vol. 11.1 fl (6.2-12.0); NRBC Flagged by Analyzer 0 % (0-5); POSITIVE DIFFERENTIAL YES; Platelet Count 310 K/mm3 (150-450); RBC Distribution Width CV 14.6 % (11.6-14.6); RBC Distribution Width SD 46.9 fl (35.1-43.9); Red Blood Count 3.26 M/mm3 (4.2-5.4); White Blood Count 9.2 K/mm3 (4.4-11.0)
[2024-12-02 06:33] LABS: Anion Gap 12 (5-15); BUN 21 mg/dL (4-19); BUN/Creat Ratio 24.6 RATIO (10-20); Calcium,Total 8.7 mg/dL (7.6-11.0); Carbon Dioxide 26.6 mmol/L (21.0-32.0); Chloride 104 mmol/L (98-108); Estimated Creatinine Clearance 35.39 ml/min (50-250); Glucose 98 mg/dL (70-99); Potassium 3.6 mmol/L (3.3-5.1)
[2024-12-02 07:09] LABS: Differential Indicated SCAN CRITERIA MET
[2024-12-02 08:57] VITALS: BP 91/47; PULSE 74; RESP 16; TEMP 36.6; O2SAT 93
[2024-12-02 09:00] VITALS: BP 98/50; PULSE 72
[2024-12-02] MEDS: Lidocaine 5% Patch 1 PATCH TOPICAL (09:03)
[2024-12-02] MEDS: Senna/Docusate Sodium 1 Tablet 2 TABLET PO (09:04)
[2024-12-02] MEDS: 0.9% Saline Lock 10 ML Syringe IV (09:10)
[2024-12-02] MEDS: Tuberculin,Purif.prot.deriv. 50 TU/ML Vial 0.1 ML ID (09:12)
--- NOTE | 2024-12-02 11:18 | PCM.PN.DRR ---
Documented by User: Marie Ac 12/02/24 11:41 TCU RX Drug Regimen Review Subjective/Objective Subjective/Objective Subjective: TCU Admission. 84 YOF presented to the ER with neck/back pain. Hospitalized for failure to thrive, intractable neck pain, recent lumbar spine surgery. Admitted to TCU with debility for strengthening and rehabilitation. Objective: Allergies No Known Allergies Allergy (Verified 11/30/24 10:25) Current Medications Generic Name Dose Route Start Last Admin Trade Name Dee PRN Reason Stop Dose Admin Acetaminophen 1,000 mg 12/01/24 22:00 12/02/24 06:29 Acetaminophen 500 Mg Tablet PO 1,000 mg Q8 ELFEGO Administration Enoxaparin Sodium 30 mg 12/02/24 06:00 12/02/24 06:29 Enoxaparin 30 Mg/0.3 Ml Syringe SC 30 mg DAILY@0600 ELFEGO Administration Gabapentin 300 mg 12/01/24 22:00 12/02/24 09:07 Gabapentin 300 Mg Capsule PO 300 mg BID ELFEGO Administration Hydroxyzine HCl 10 mg 12/01/24 22:00 12/01/24 22:50 Hydroxyzine 10 Mg Tablet PO 10 mg QHS ELFEGO Administration Sodium Chloride 250 mls @ 15 mls/hr 12/01/24 19:09 IV .[id number] PRN Saline Flush Sodium Chloride 250 mls @ 15 mls/hr 12/01/24 19:09 IV .[id number] PRN Additional IVPB Infusion Levothyroxine Sodium 88 mcg 12/02/24 06:00 12/02/24 06:29 Levothyroxine 88 Mcg Tablet PO 88 mcg DAILY@0600 ELFEGO Administration Lidocaine 1 patch 12/02/24 10:00 12/02/24 09:03 Lidocaine 5% Patch TOPICAL 1 patch DAILY ELFEGO Administration Protocol Magnesium Citrate 300 ml 12/01/24 20:44 Magnesium Citrate 300 Ml PO DAILY PRN Constipation Oxycodone HCl 10 mg 12/01/24 18:44 12/02/24 06:29 Oxycodone 5 Mg Tablet PO 10 mg Q4H PRN Administration Pain Score 1-10 or Pre PT/OT Rizatriptan Benzoate 10 mg 12/01/24 19:13 Rizatriptan Benzoate 10 Mg Tablet PO X1 PRN MIGRAINE SYMPTOMS Senna/Docusate Sodium 2 tablet 12/01/24 22:00 12/02/24 09:04 Senna/Docusate Sodium 1 Tablet PO 2 tablet BID ELFEGO Administration Sertraline HCl 200 mg 12/02/24 10:00 12/02/24 09:04 Sertraline 100 Mg Tablet PO 200 mg DAILY ELFEGO Administration Sodium Chloride 10 - 40 ml 12/01/24 19:09 12/02/24 09:10 0.9% Saline Lock 10 Ml Syringe IV 10 ml UD PRN Administration SALINE FLUSH Tuberculin PPD 0.1 ml 12/09/24 10:00 Tuberculin,Purif.Prot.Deriv. 50 Tu/Ml Vial ID 12/09/24 10:01 X1 ONE Problem List Migraines (Acute) Depression (Acute) Pruritus (Acute) History of lumbosacral spine surgery (Acute) Neck pain (Acute) Failure to thrive (Acute) Debility (Acute) Vital Signs Temp Pulse Resp BP Pulse Ox O2 Del Method 97.8 F 72 16 98/50 L 93 Room Air 12/02/24 08:57 12/02/24 09:00 12/02/24 08:57 12/02/24 09:00 12/02/24 08:57 12/02/24 08:57 Oxygen Delivery Method Room Air Weight: 52.072 kg Body Mass Index (BMI) 22.4 Sodium 142 mmol/L (133-145) 12/02/24 05:18 Potassium 3.6 mmol/L (3.3-5.1) 12/02/24 05:18 Chloride 104 mmol/L (98-108) 12/02/24 05:18 Carbon Dioxide 26.6 mmol/L (21.0-32.0) 12/02/24 05:18 Anion Gap 12 (5-15) 12/02/24 05:18 BUN 21 mg/dL (4-19) H 12/02/24 05:18 Creatinine 0.85 mg/dL (0.70-1.20) 12/02/24 05:18 Est GFR (MDRD) Non-Af 68 (>60) 12/02/24 05:18 BUN/Creatinine Ratio 24.6 RATIO (10-20) H 12/02/24 05:18 Glucose 98 mg/dL (70-99) 12/02/24 05:18 Assessment/Plan: 1. Pain: acetaminophen 1000mg PO Q8, lidocaine 5% patch 1 patch topical daily and oxycodone 10mg PO Q4H PRN pain 1-10. Resident has had 2 doses of oxycodone for pain scores of 8-9 in the back. Please continue to monitor for increased pain, PRN usage, constipation, respiratory depression, topical irritation and falls (BEERs). 2. Bowel: senna/docusate 2T PO BID and magnesium citrate 300mL PO daily PRN constipation. No PRN doses given. Please continue to monitor for constipation and PRN usage. Last documented bowel movement was 12/01/24. 3. DVT prophylaxis: enoxaparin 40mg SC daily. Changed back to 40mg from 30 mg due to CrCl of 35 mL/min per policy. Please continue to monitor for S/S of bleeding, hemoglobin (last 8.9g/dL), platelets (last 310,000) and renal function. 4. Neuropathic pain: gabapentin 300mg PO BID. Please continue to monitor for neuropathic pain, confusion, falls/fractures (BEERs) and renal function. 5. Hypothyroidism: levothyroxine 88mcg PO daily. No history of TSH in chart. Please consider ordering a TSH if clinically appropriate. Thanks. Please continue to monitor for S/S of hypo/hyperthyroidism. 6. Migraine: rizatriptan 10mg PO x1 PRN migraine. No doses given. Please continue to monitor for PRN usage and migraines. 7. Insomnia: hydroxyzine 10mg PO QHS. Please continue to monitor for excessive daytime drowsiness, anticholinergic side effects (BEERs), dementia/delirium (BEERs), falls/fractures (BEERs). Assessment/Plan for indications treated with psychotropic medications: 1. Major depression: sertraline 200mg PO daily. Please see physician note regarding GDR. Monitor for diarrhea, nausea, headache, anxiety or drowsiness, suicidal thoughts or behaviors (Boxed Warning), symptoms of bleeding, symptoms of serotonin syndrome (including agitation, confusion, hyperreflexia, rigidity/myoclonus, tremor, tachycardia, tachypnea), sodium levels (last Na = 142mmol/L 12/02/24). Monitor for efficacy including resident symptoms, behaviors and indications of distress. Monitor for tolerability including mental status, cognition, excessive sleepiness, withdrawal or decreased participation in activities and decline in physical functioning. Maximize use of nonpharmacologic/behavioral interventions to facilitate dose reduction or discontinuation as appropriate. Please evaluate the appropriateness of GDR unless contraindicated. If appropriate, GDR should be attempted in 2 separate quarters within the first year of use or admission to TCU. If GDR attempted, monitor resident symptoms/behaviors. Medical chart and medication regimen reviewed. The following medication irregularities or issues were identified: 1. Levothyroxine 88mcg PO daily. No history of TSH in chart. Please consider ordering a TSH if clinically appropriate. Thanks. Date Date of Note: 12/02/24 Documented by User: Dr. Ramana Tsai MD 12/02/24 17:04 TCU RX Drug Regimen Review Provider Comments Provider responsibility Provider Comments to Recommendations by Pharmacy Agree
--- NOTE | 2024-12-02 11:29 | CASEMGMT ---
Social Work SW met with patient to complete initial assessment. Introduced self and role. Verified contacts. Discussed code status with pt. SW educated to differences and pt wishes to be DNR-CCA, no intubation. Nursing notified. Educated to [facility] insurance with [employer]D 12/03 and continued stay is not guaranteed with each review, providing a 3-day notice for DC date. Pt's goal is to return home alone to [facility]. SW will continue to follow for DC planning. Michelle Kirk DRYING CAN WORKER EXPERIMENTAL DISPLAY BUILDER
[2024-12-02 13:44] VITALS: BMI 22.1
[2024-12-03 09:35] VITALS: BP 140/64; PULSE 68; RESP 14; TEMP 36.7; O2SAT 95
[2024-12-03] MEDS: Lidocaine 5% Patch 1 PATCH TOPICAL (09:38)
[2024-12-03 10:00] VITALS: PULSE 69; RESP 16; O2SAT 95
--- NOTE | 2024-12-03 15:33 | NURSING ---
Licensed Sales Assistant Note; Activity Asset: Dontrell Pearlta is independent in her choice of daily activities. She prefers to do her own activities in her room at this time such as, tv, reading word puzzles and visiting w/ family. She welcomes visits from the shirt creaser and therapy dog when available. Staff will encourage social activities, remind her of weekly activities and respect her right to say no.
--- NOTE | 2024-12-03 17:30 | RAD_ITS ---
PROCEDURE: ABDOMEN SINGLE VIEW 12/03/2024 REASON FOR EXAM: POOR APPETITE, NAUSEA. TECHNIQUE: ABDOMEN SINGLE VIEW COMPARISON: None. FINDINGS: Hardware: Surgical clips along the left hemiabdomen. Prior posterior instrumentation and spinal fixation of the lumbar spine. Bladder stimulator with right flank battery pack. Bowel gas: Bowel gas pattern is normal. No evidence of bowel obstruction. Bones: There are degenerative changes of the spine. Bilateral hip arthrosis. RAD/Abdomen Single View IMPRESSION: NO ACUTE FINDINGS Reading Location: [id number]
--- NOTE | 2024-12-03 17:30 | NURSING ---
pt off unit to xray at this time
--- NOTE | 2024-12-03 17:58 | NURSING ---
dr freire notified of pt requesting imodium for loose stools, staff noted x1 liquid BM today. new order for KUB and PRN imodium. pt updated.
[2024-12-04 08:05] VITALS: PULSE 68; RESP 16; O2SAT 95
[2024-12-04] MEDS: Lidocaine 5% Patch 1 PATCH TOPICAL (09:55)
[2024-12-04 09:59] VITALS: BP 117/53; PULSE 60; RESP 16; TEMP 36.4; O2SAT 93
[2024-12-05 09:00] VITALS: BP 125/63; PULSE 68; RESP 18; TEMP 36.3; O2SAT 96
[2024-12-05] MEDS: Lidocaine 5% Patch 1 PATCH TOPICAL (09:02)
[2024-12-05] MEDS: Senna/Docusate Sodium 1 Tablet 2 TABLET PO (09:02)
[2024-12-05 10:00] VITALS: PULSE 67; RESP 21; O2SAT 95
--- NOTE | 2024-12-05 15:21 | CASEMGMT ---
Social Work SW completed BIMS (04/25) and PHQ-9 (04/06) for MDS assessment. SW explored pt's positive responses and pt expresses the decline in mood is d/t hardships medically, along with loss of independence. SW discussed medication management and counseling to assist. Pt agreed for Dr to review medications and possibly add Remeron, but denied counseling resources. - SW spoke with Dr. Tsai. Pt is on highest dose of Zoloft but agreed to add Remeron. will continue to monitor. Michelle Kirk PHYSIOLOGIST IMPORT EXPORT MANAGER
--- NOTE | 2024-12-05 20:37 | NURSING ---
Per [facility], patients benefit plan does not require a prior authorization for CT of brain without contrast. . See request below. Juanjose GUIDRY, Medical Or Surgical Instrument Maker
[2024-12-05 21:00] VITALS: BP 127/57; PULSE 68; RESP 16; TEMP 36.6; O2SAT 96
[2024-12-05 23:00] VITALS: BP 135/59; PULSE 67; RESP 16; TEMP 36.4; O2SAT 95
--- NOTE | 2024-12-06 04:23 | NURSING ---
PATIENT PUSHED BATHROOM CALL [place] AT APPROXIMATELY 1945 THIS SHIFT, THIS NURSE APPROACHED PATIENT IN BATHROOM AND FOUND PATIENT ON THE FLOOR SHE HAD FALLEN. THIS NURSE IMMEDIATELY NOTIFIED RN (Cuate.H) AND ASKED FOR HER HELP. THIS NURSE AND RN, ASSESSED PATIENT AND HELPED HER OFF OF FLOOR, PATIENT CLAIMED SHE WALKED HERSELF TO THE BATHROOM AND SLID OFF OF THE TOILET WHEN TRYING TO GET BACK TO HER BED. THIS NURSE AND RN CLEANED PATIENT UP AND RETURNED PATIENT TO HER BED. THIS NURSE AND RN EDUCATED PATIENT ON THE USE OF HER CALL LIGHT AND WAITING FOR HELP TO GET UP. THIS NURSE THEN COMPLETED NEURO CHECKS Q15 MINUTES FOR 1 HOUR, AND BP CHECKS. NOTIFIED BY RN, CT ORDERED AND PATIENT TAKEN DOWN BY WHEELCHAIR TO CT. PATIENT EXPRESSED THE NEED / WANT FOR IMODIUM, COMMUNICATION NOTE MADE FOR . PATIENT RETURNED TO BED, AND RESTING WITH EYES CLOSED. THIS NURSE AND RN NOTIFIED FAMILY. WILL CONTINUE TO MONITOR.
[2024-12-06 09:04] VITALS: BP 105/54; PULSE 75; RESP 16; TEMP 36.2; O2SAT 96
[2024-12-06] MEDS: Lidocaine 5% Patch 1 PATCH TOPICAL (09:08)
--- NOTE | 2024-12-06 10:37 | NURSING ---
Pt complains of loose stools. Imodium ordered PRN per Dr. Tsai and Berryna changed to PRN.
[2024-12-06 14:06] VITALS: BP 104/48; PULSE 67; RESP 20; TEMP 36.3; O2SAT 97
[2024-12-06 14:22] VITALS: PULSE 70; RESP 20; O2SAT 97
[2024-12-06 18:46] VITALS: BP 101/57; PULSE 72; RESP 16; TEMP 36.7; O2SAT 98
[2024-12-07 09:45] VITALS: BP 113/57; PULSE 61; RESP 16; TEMP 36.1; O2SAT 95
[2024-12-07] MEDS: Lidocaine 5% Patch 1 PATCH TOPICAL (09:49)
--- NOTE | 2024-12-07 10:30 | NURSING ---
ACCOUNTING OFFICER reported that pt requesting pain medication, entered room to administer and pt sleeping, snoring. did not disturb. will monitor. call light in reach.
--- NOTE | 2024-12-07 13:40 | NURSING ---
pt called out requesting pain med 9/10 pain, oxyir 10mg given. pt with poor appetite as well. pt's friend feels that pt is really depressed, messafe left for dr freire. pt on 200mg zoloft routinely.
[2024-12-07 15:22] VITALS: BP 139/89; PULSE 75; RESP 16; TEMP 37; O2SAT 95
[2024-12-07 21:45] VITALS: PULSE 69; RESP 18; O2SAT 96
--- NOTE | 2024-12-08 08:28 | NURSING ---
Tight Cooper Note; MDS for 12/08/2024 Complete
[2024-12-08] MEDS: Lidocaine 5% Patch 1 PATCH TOPICAL (08:53)
--- NOTE | 2024-12-08 09:02 | NURSING ---
Offered covid vaccine, VIS provided. Resident declines.
[2024-12-08 10:00] VITALS: PULSE 64; RESP 16; O2SAT 94
[2024-12-08 10:07] VITALS: BP 99/48; PULSE 68; RESP 16; TEMP 36.7; O2SAT 92
--- NOTE | 2024-12-08 12:26 | PCM.CONS.GEN ---
Assessment & Plan Assessment/Plan (1) History of lumbosacral spine surgery: (2) Acute cervical myofascial strain: PLAN: Plan She appears to be improving significantly from her low back surgery. She was in the hospital for rehab facility for the past month as she had a GI infection shortly after surgery subsequently had significant weakness. She has been starting to ambulate and move around better. She is continuing her work at [employer] to improve her debility. As her neck pain, it has only been around for about 2 weeks without clear inciting event. It is axial in nature. It appears to be most likely facetogenic versus myofascial. She does feel that it is improving a bit. Chronically she is on opioids from [facility]. Prior to surgery she was on 10-325 norco BID. She has been on 10mg oxycodone 2-4 times a day since surgery. She was already planning to switch to pain management in [place] as she moved to [facility] 1-2 weeks prior to her surgery, but had not been able to accomplish this. I discussed with her at length that given the recency of her pain and no significant clear neurologic defecit and atraumatic inciting event that further imaging could be deferred for now. If it persists or worsens would obtain CT scan. She states she cannot have MRI due to bladder stimulator. She is on oycodone 10mg up to 4x per day. Today she had not yet had a dose when I saw her around noon time. I discussed that she should try to minimize dosing as tolerated. The low back pain should continue to improve and hopefully the acute neck pain will as well. She can follow up in our office as outpatient upon discharge. Continue PT/OT. She is to also follow up with her surgical team. HPI Consult Data Date of Consult: 12/08/24 HPI Narrative HPI Narrative: JERSON TAMEZ, is a 84 F who presents with neck and lower back pain. She had lumbar fusion surgery in [place] with Dr. Pompa 11/04. She unfortunately developed a GI he will this and was treated in the hospital with antibiotics. She states she got quite weak during this time. she is then sent to rehab facility for strengthening conditioning. She has noted about a 2 week history of acute onset axial cervical pain. It waxes and wanes but can be as severe as 10/10. She denies any trauma or inciting event. She says she simply woke up 1 morning and had the pain. It has been improving a bit since her stay in the [facility]. She denies any radicular symptoms or new onset weakness. She does say she has issues with occasionally dropping items with the right hand but this she says has been the case since her hand surgeries years ago. She does feel a bit unsteady, but feels this is likely related to postoperative status. She chronically is on opioids for her pain management doctor in [place]. She was on norco 10-325 BID prior to her surgery. She has been on 10mg oxycodone since that surgery. she feels that her back pain has improved and she is hoping that the neck pain we will continue to improve as well. Cervical xray impression noted moderate cervical degenerative changes. She says the physical therapy has been helping and she is able to ambulate around the floor much better now. She is hoping to leave soon she says. She says that she was planning on trying to switch pain management to [place] as she had just moved to [place] from [place] 1-2 weeks prior to her surgery, but the referral had not been completed yet from her prior pain management she says. [facility] Medical History (Updated 12/01/24 @ 20:[address] Ramana Tsai MD) Colitis due to Clostridioides difficile Pain in right hip Infection due to Norovirus species Vitamin D deficiency Severe malnutrition Gastroenteritis and colitis, viral Stress incontinence in female Bursitis of hip, right Postsurgical hypothyroidism Adjustment disorder with mixed anxiety and depressed mood Anxiety associated with depression Spinal stenosis of lumbar region Thyrotoxicosis Osteopenia of multiple sites Atrophy of vagina Major depressive disorder Low back pain Urgency of urination Myalgia Osteoporosis of lumbar spine Migraines Chronic GERD without esophagitis GERD (gastroesophageal reflux disease) Hysterectomy planned Colonoscopy planned Home Medications ?Medication ?Instructions ?Recorded ?Last Taken ?Type gabapentin 300 mg capsule 300 mg PO BID Nerve Pain 11/30/24 11/29/24 History hydroxyzine HCl 10 mg tablet 10 mg PO QHS Anxiety 11/30/24 11/30/24 21:40 History levothyroxine 88 mcg tablet 88 mcg PO DAILY Thyroid 11/30/24 11/30/24 History sertraline 100 mg tablet 200 mg PO DAILY Mood 11/30/24 12/01/24 09:40 History sumatriptan succinate 50 mg tablet 50 mg PO .COMPLEX Headache 11/30/24 Unknown History acetaminophen 500 mg tablet 1,000 mg (2 x 500 mg) PO Q8 Pain 12/01/24 12/01/24 15:05 Rx #0 tabs lidocaine 5 % topical patch 1 patch topical DAILY Pain #0 ea 12/01/24 12/01/24 09:40 Rx oxycodone 10 mg tablet 10 mg PO Q4H PRN pain 3 days #12 12/01/24 11/29/24 Rx tabs Allergy/AdvReac Type Severity Reaction Status Date / Time No Known Allergies Allergy Verified 11/30/24 10:25 Surgical History (Updated 12/01/24 @ 20:[address] Ramana Tsai MD) History of arthroplasty of right ankle History of thyroidectomy, total History of nephrectomy, right History of total hip replacement Hx of esophagogastroduodenoscopy Hx of cholecystectomy History of back surgery Social History (Updated 12/01/24 @ 20:[address] Ramana Tsai MD) household members: family Smoking Status: Never smoker alcohol intake: never substance use type: does not use ROS Constitutional Constitutional: Reports weakness; Denies chills, fever(s) or weight gain ENT HEENT: Denies headache(s), nasal congestion or nasal discharge Cardiovascular Cardiovascular: Denies chest pain or palpitations Respiratory/Chest Respiratory/Chest: Denies cough, excessive phlegm production or shortness of breath with exertion Gastrointestinal Gastrointestinal: Denies abdominal pain, nausea or vomiting Genitourinary Genitourinary: Denies dysuria Musculoskeletal Musculoskeletal: Denies joint pain or joint swelling Integumentary Integumentary: Denies rash or wounds Neurologic Neurologic: Denies focal weakness, numbness or tingling Psychiatric Psychiatric: Denies anxiety, auditory hallucinations, depression, homicidal ideation or suicidal ideation Physical Exam Narrative Cervical paraspinal tenderness + bilaterally Facet load + bilaterally Spurling negative for radicular pain Lumbar paraspinal tenderness + bilaterally Incision looks c/d/i SLR - bilaterally DTR 2/4 in upper and lower extremities Sensation intact in upper and lower extremities 4+/5 upper extremity strength diffusely. 5/5 strength in lower extremities Const alert and oriented x3 Lab / Micro Data 12/02/24 05:18 12/02/24 05:18
[2024-12-09 06:20] LABS: Hematocrit 29.5 % (37-47); Hemoglobin 9.3 g/dL (12.0-15.0); Immature Granulocytes Count 0.240 X10^3/uL (0.0-0.0); Mean Corp Hgb Conc 31.5 g/dL (32-36); Mean Corpuscular Volume 86.8 fL (81-99); Mean Platelet Vol. 11.7 fl (6.2-12.0); NRBC Flagged by Analyzer 0 % (0-5); POSITIVE DIFFERENTIAL YES; Platelet Count 224 K/mm3 (150-450); RBC Distribution Width CV 16.2 % (11.6-14.6); RBC Distribution Width SD 50.5 fl (35.1-43.9); Red Blood Count 3.40 M/mm3 (4.2-5.4); White Blood Count 9.7 K/mm3 (4.4-11.0)
[2024-12-09 06:23] LABS: Differential Indicated SCAN CRITERIA MET
[2024-12-09 06:56] LABS: Anion Gap 10 (5-15); BUN 14 mg/dL (4-19); BUN/Creat Ratio 20.6 RATIO (10-20); Calcium,Total 8.4 mg/dL (7.6-11.0); Carbon Dioxide 26.6 mmol/L (21.0-32.0); Chloride 106 mmol/L (98-108); Estimated Creatinine Clearance 37.60 ml/min (50-250); Glucose 100 mg/dL (70-99); Potassium 3.6 mmol/L (3.3-5.1)
[2024-12-09 08:58] VITALS: BP 114/56; PULSE 66; RESP 16; TEMP 36.8; O2SAT 97
[2024-12-09] MEDS: Lidocaine 5% Patch 1 PATCH TOPICAL (09:01)
[2024-12-09] MEDS: Tuberculin,Purif.prot.deriv. 50 TU/ML Vial 0.1 ML ID (11:12)
[2024-12-09 13:00] VITALS: BMI 21.9
[2024-12-09 22:00] VITALS: PULSE 72; RESP 17; O2SAT 93
[2024-12-10] MEDS: Lidocaine 5% Patch 1 PATCH TOPICAL (08:26)
--- NOTE | 2024-12-10 09:33 | CASEMGMT ---
Social Work IDT met with patient then dtr via conference call for care plan meeting. Discussed patient's progress in PT/OT/ST/SN/RDN. Educated to [facility] insurance with NRD 12/10 and continued stay is not guaranteed; EDC 12/16. Provided pt/family with written communication of insurance process and copay coverage during stay. IDT recommending 24/ care for CGA and safety. Pt attempted to ambulate on her own to the bathroom and fell during stay. Dtr lives out of town and stated upon admission she cannot care for pt and live with her. Recommending assistance with IADLs and meds/finances. ST noted pt needs 50% help with executive functioning tasks. Offered to refer to [facility] for assistance with caregivers, MOW, life alert and possible [place] Waiver. SW also provided resources on the DHAD program, and listed programs, and [facility] list for assist with utilities and other needs that is identified in the future. SW educated to applying for Medicaid to assist with programs. Pt agreed to apply. SW educated to referral to [facility]. Dtr agrees pt needs assistance with IADLs, and requesting a 3-in-1 commode. SW encouraged dtr check in frequently with pt. DHAD programs will take time to assess and pt cannot pay for caregivers to assist in the home at [place]. Stressed the importance of pt being safe at home to prevent further falls or injury. Pt and dtr agreed. Pt appreciative of resources. Pt agreed to remain until insurance issued DC date. Discussed skilled HHC and offered to provide list proactively. Pt and dtr agreed. Pt prefers printed list and dtr prefers text link. SW provided list of skilled HHC agencies within geographical area, INN with insurance, that include quality and resource data via [employer] guide. SW educated HHC agency will contact pt for SOC date date, but typically 2-3 days after DC, pending PCP signing orders. Pt/dtr appreciative and expressed understanding. SW to place referrals to DHAD, [facility], and coordinate [facility] and skilled HHC at [place]. Michelle Kirk TESTER REGULATOR TACK PICKER
[2024-12-10 10:00] VITALS: RESP 18; O2SAT 95
--- NOTE | 2024-12-10 13:51 | CASEMGMT ---
Addendum entered by Michelle Kirk 12/10/24 18:24: [facility] can accept. but their PT will evaluate for OT needs. Order updated. Addendum entered by Michelle Kirk 12/10/24 15:45: SW followed up with pt for pt's choice of HHC. [facility]. SW sent referral via [facility]. Original Note: Social Work Insurance issued LCD 12/12, DC 12/13 SW spoke with pt to inform her of DC date. SW provided NOM[facility] to pt and educated to appeal rights. Pt verbalized understanding and denied appeal. Pt is agreeable to DC. Pt to notify dtr and converse on skilled HHC preference. Pt will notify this worker of agency of choice. SW to send referral to [facility] for 3-in-1 commode. Dtr will transport pt at [place]. SW sent referral to [facility], [facility] and [facility] for Care Coordination program. Plan: DC home alone 12/13, HHC PT/OT/ST/SN, BSC Michelle Kirk MOP MAN SAFETY INVESTIGATOR
--- NOTE | 2024-12-10 15:50 | NURSING ---
stool sample tested positive for Cdiff. pt notified and MD notified. New order for Vancomycin liquid. patient remains on contact precautions.
[2024-12-10 16:00] VITALS: BP 118/58; PULSE 79; RESP 18; TEMP 36.6; O2SAT 18
[2024-12-10] MEDS: Vancomycin 125 MG/5 ML Susp PO.SYRINGE PO ×2 (17:35→23:37)
--- NOTE | 2024-12-10 19:07 | PCM.DC.SUM ---
Providers Date of Admission: 12/01/24 Primary Care Physician: Out of [facility] Doctor Consultations 12/08/24 07:28 Consult: Pain Management Routine Consulting Provider: Aaron Alcantara Reason for Consult: Opioid overuse, chronic pain. EMERGENT Consult: No MD Notified: Yes Date Notified: 12/08/24 Time Notified: 08:00 Method of Notification: Text Reason For Visit: FAILURE TO THRIVE Diagnosis Discharge Diagnosis (1) History of lumbosacral spine surgery: Status: Acute Code(s): Z98.890 - Other specified postprocedural states (2) Acute cervical myofascial strain: Status: Acute Code(s): S16.1XXA - Strain of muscle, fascia and tendon at neck level, initial encounter Plan 84 year old female with below past medical history hospitalized for failure to thrive, intractable neck pain, recent lumbar spine surgery, admitted to TCU with debility, here for rehabilitation, strengthening, prior to discharge home with family. Debility - PT/OT. Pain - Tylenol 1000mg q8, Oxycodone 10mg q4 prn pain (1-10), Lidoderm patch td daily. Bowel - senna/colace 2 tablets bid, Magnesium citrate 300mL daily prn. Adult immunization - Administer pneumonia vaccine, covid vaccine, flu vaccine as appropriate. DVT prophylaxis - Lovenox 40mg sc daily. Neuropathic pain - Gabapentin 300mg bid. Insomnia - Hydroxyzine 10mg qhs. Hypothyroidism - Levothyroxine 88mcg daily. Migraine - Maxalt 10mg x 1 prn. The following psychotropic medication was present on admission: Sertraline 200mg daily. Psychotropic medication therapy is indicated for a diagnosis of: Major Depression. Based on my clinical evaluation, continuation of the medication is necessary at this time. Gradual dose reduction plan (select one): ____ GDR will be attempted. Will monitor patient symptoms and behaviors in response to GDR. __x__ GRD contraindicated. Reason contraindicated: stable chronic halfway use. Medications at Discharge Home Medications gabapentin 300 mg capsule 300 mg PO BID Nerve Pain 11/30/24 hydroxyzine HCl 10 mg tablet 10 mg PO QHS Anxiety 11/30/24 levothyroxine 88 mcg tablet 88 mcg PO DAILY Thyroid 11/30/24 sertraline 100 mg tablet 200 mg PO DAILY Mood 11/30/24 sumatriptan succinate 50 mg tablet 50 mg PO .COMPLEX Headache 11/30/24 acetaminophen 500 mg tablet 1,000 mg (2 x 500 mg) PO Q8 #0 tabs 12/10/24 lidocaine 5 % topical patch 1 patch topical DAILY 30 days #30 ea 12/10/24 mirtazapine 15 mg tablet 7.5 mg (1/2 x 15 mg) PO QHS 30 days #15 tabs 12/10/24 oxycodone 5 mg tablet 10 mg (2 x 5 mg) PO Q4H PRN Pain Score 1-10 Or Pre Pt/Ot 3 days #36 tabs 12/10/24 vancomycin 25 mg/mL oral solution (Firvanq) 125 mg (5 mL) PO Q6 7 days #140 mL 12/10/24 Hospital Course Operations None Procedures None Summary of Care Provided Minutes Spent on Discharge: 35 Hospital Course: 84 year old female with below past medical history hospitalized for failure to thrive, intractable neck pain, recent lumbar spine surgery, admitted to TCU with debility, here for rehabilitation, strengthening, prior to discharge home with family. 12/10/2024 C. 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 Diff, but cost maybe an issue. Discharge home alone 12/13/2024, [facility] PT/OT/ST/SN, BSC. 3-in-1 commode: Patient confined to a single room unable to safely access toilet. Patient is confined to one level of the home environment and there is no toilet on that level. Physical Exam Const alert General Appearance: cooperative HEENT normocephalic Eyes PERRL and EOMs intact bilaterally Neck supple, no JVD and no carotid bruits Resp normal respiratory effort, normal air movement and clear to auscultation bilaterally Cardio regular rate and regular rhythm GI normal to inspection, nondistended, normoactive bowel sounds, non-tender and non-distended Extremity normal capillary refill General Extremity: Negative for edema Skin no rashes or lesions noted General Skin Exam: no breakdown Psych affect normal Appearance: appropriate Weight / BMI Weight Weight: 50.887 kg Body Mass Index (BMI) 21.9 ABG / Lab / Microbiology Data 12/09/24 05:14 12/09/24 05:14 Microbiology: Microbiology 12/09/24 12:00 Stool C. difficile GDH Antigen & Toxins - Final 12/09/24 12:00 Stool Clostridioides difficile (PCR) - Final D/C Instructions Discharge Diet: No restrictions Discharge Activity: Return to Normal Activity, May Shower and Use Walker Weight Bearing Status: Weight bearing as tolerated Call your doctor if you observe: Fever of 101 or Higher, Inability to urinate, Inability to have a bowel movement, Shortness of breath, Dizziness, Fainting spells, Swelling in the ankles, Chest pain and Uncontrolled pain DC O2, CPAP, BIPAP Needs Home O2 Discharge instructions: No Additional Instructions: Discharge home alone 12/13/2024, [facility] PT/OT/ST/SN, BSC. 3-in-1 commode: Patient confined to a single room unable to safely access toilet. Patient is confined to one level of the home environment and there is no toilet on that level. Meaningful Use Info Meaningful Use Meaningful Use Diagnoses (Choose all that apply): None applicable Ischemic Stroke Statin Dosing Therapy Reference: STATIN DOSE THERAPY REFERENCE: * Patients > 75 years receive moderate or high dose statin therapy. * Patients 75 years or YOUNGER should receive HIGH intensity statin dose unless contraindicated. You will be required to document reason for non-treatment if statin daily dose does not meet guidelines. HIGH DOSE STATIN THERAPY DAILY Atorvastatin > than or = to 40 mg Rosuvastatin > than or = to 20 mg Amlodipine + Atorvastatin > than or = to 2.5/40 mg Ezetimibe + Simvastatin 10/80 mg Simvastatin 80mg Discharge Plan Admission Admit Date/Time: 12/01/24 17:40 Primary Reason for Your Visit: Debility. Attending Provider: Ramana Tsai Chi Primary Care Provider: [facility] ,Out of Consulting Providers: Aaron Alcantara Instructions Additional Instructions / Restrictions: Discharge home alone 12/13/2024, [facility] PT/OT/ST/SN, BSC. 3-in-1 commode: Patient confined to a single room unable to safely access toilet. Patient is confined to one level of the home environment and there is no toilet on that level. Discharge Orders/Prescriptions Prescriptions: New acetaminophen 500 mg Tablet 1,000 mg PO Q8 Qty: 0 0RF lidocaine 5 % Adhesive Patch,Medicated 1 patch topical DAILY 30 Days Qty: 30 0RF Protocol: *Topical Application Instructions APPLICATION INSTRUCTIONS: Apply to neck mirtazapine 15 mg Tablet 7.5 mg PO QHS 30 Days Qty: 15 0RF vancomycin [Firvanq] 25 mg/mL Recon Soln 125 mg PO Q6 7 Days Qty: 140 0RF oxycodone 5 mg Tablet 10 mg PO Q4H PRN (Reason: Pain Score 1-10 Or Pre Pt/Ot) 3 Days Qty: 36 0RF Continued sertraline 100 mg tablet 200 mg PO DAILY sumatriptan succinate 50 mg tablet 50 mg PO .COMPLEX Rx Instructions: 50 mg orally AT ONSET OF HANKS; hydroxyzine HCl 10 mg tablet 10 mg PO QHS levothyroxine 88 mcg tablet 88 mcg PO DAILY gabapentin 300 mg capsule 300 mg PO BID Discontinued acetaminophen 500 mg Tablet 1,000 mg PO Q8 Qty: 0 0RF lidocaine 5 % Adhesive Patch,Medicated 1 patch topical DAILY Qty: 0 0RF Protocol: *Topical Application Instructions APPLICATION INSTRUCTIONS: to neck oxycodone 10 mg tablet 10 mg PO Q4H PRN (Reason: pain) 3 Days Qty: 12 0RF Referrals / Follow Up: Aaron Alcantara MD [Med Staff - Active Staff] - (Follow up after DC from TCU) Ramana Tsai Chi, MD [Med Staff - Active Staff] - Within 1 Week (Transition Care Management/new office patient appt.) Disposition Disposition (needs filled in before D/C Order can be placed): Home Health Service
[2024-12-11] MEDS: Vancomycin 125 MG/5 ML Susp PO.SYRINGE PO ×4 (05:39→23:56)
[2024-12-11] MEDS: Lidocaine 5% Patch 1 PATCH TOPICAL (08:49)
[2024-12-11] MEDS: Lactobacillis Acidophilus 1 CAP PO ×2 (08:51→22:50)
[2024-12-11 08:57] VITALS: BP 105/52; PULSE 71; RESP 16; TEMP 36.5; O2SAT 94
--- NOTE | 2024-12-11 09:32 | MDS.RN ---
Information for the MDS was obtained from review of the clinical record, interview of resident, staff, and direct observation of resident?s care.
--- NOTE | 2024-12-11 10:59 | CASEMGMT ---
Social Work Clinical information sent to [facility] [place] [facility] [place] [facility] [place]. KIM Gomez
--- NOTE | 2024-12-11 17:41 | CASEMGMT ---
Social Work Teresa at [employer] called SW stating that pt will likely meet qualifications for Medicaid benefits and Teresa will assist pt in applying for benefits on Sunday. KIM Quiles
[2024-12-12] MEDS: Vancomycin 125 MG/5 ML Susp PO.SYRINGE PO ×4 (06:05→23:03)
[2024-12-12] MEDS: Lactobacillis Acidophilus 1 CAP PO ×2 (08:11→21:43)
[2024-12-12] MEDS: Lidocaine 5% Patch 1 PATCH TOPICAL (08:11)
[2024-12-12 16:00] VITALS: BP 116/63; PULSE 65; RESP 18; TEMP 36.6; O2SAT 95
[2024-12-13] MEDS: Vancomycin 125 MG/5 ML Susp PO.SYRINGE PO (05:43)
[2024-12-13] MEDS: Lactobacillis Acidophilus 1 CAP PO (10:01)
[2024-12-13] MEDS: Lidocaine 5% Patch 1 PATCH TOPICAL (10:02)
[2024-12-13 11:00] VITALS: BP 156/67; PULSE 78; RESP 16; TEMP 36.7; O2SAT 96
== END 2024-12-13 11:25 | disposition home health service (06) | DRG 560 ==
PROVIDERS: Admitting Provider Family Medicine Geriatric Medicine; Referring Provider Family Medicine Geriatric Medicine; Visit Provider Family Medicine Geriatric Medicine
DX: Z47.89 Encounter for other orthopedic aftercare (principal); A04.71 Enterocolitis due to Clostridium difficile, recurrent; R62.7 Adult failure to thrive; E89.0 Postprocedural hypothyroidism; M48.061 Spinal stenosis, lumbar region without neurogenic claudication; F41.8 Other specified anxiety disorders; G62.9 Polyneuropathy, unspecified; L29.9 Pruritus, unspecified; G43.909 Migraine, unspecified, not intractable, without status migrainosus; M54.2 Cervicalgia; S16.1XXD Strain of muscle, fascia and tendon at neck level, subsequent encounter; G47.00 Insomnia, unspecified; Z79.899 Other long term (current) drug therapy; Z79.890 Hormone replacement therapy; Z98.1 Arthrodesis status; N39.3 Stress incontinence (female) (male); X58.XXXD Exposure to other specified factors, subsequent encounter; Z79.891 Long term (current) use of opiate analgesic
CPT/HCPCS: 36415; 74018; 80048; 84443; 85025; 87493; 92507; 92523; 97110; 97112; 97116; 97162; 97166; 97530; 97535; 97802; A4216

== ENCOUNTER → 2024-12-05 | Outpatient (CLI) | payer MEDICARE, SELFPAY ==
--- NOTE | 2024-12-05 20:38 | CT_ITS ---
EXAM: CT Head Without Intravenous Contrast CLINICAL INDICATION: FALL TECHNIQUE: Axial computed tomography images of the head/brain without intravenous contrast. This CT exam was performed using one or more of the following dose reduction techniques: automated exposure control, adjustment of the mA and/or kV according to patient size, and/or use of iterative reconstruction technique. COMPARISON: No relevant prior studies available. FINDINGS: BRAIN AND EXTRA-AXIAL SPACES: The cerebral and cerebellar sulci are mildly prominent consistent with mild brain atrophy. No acute intracranial hemorrhage, midline shift or mass effect. If symptoms persist, further evaluation with MRI is recommended. Mild areas of decreased attenuation in the deep cerebral white matter are consistent with mild small vessel ischemic/degenerative changes. BONES/JOINTS: Unremarkable. No acute fracture. SOFT TISSUES: Unremarkable. SINUSES: Unremarkable as visualized. No acute sinusitis. MASTOID AIR CELLS: Unremarkable as visualized. No mastoid effusion. CT/Brain/Head without Contrast IMPRESSION: 1. No acute intracranial hemorrhage, midline shift or mass effect. If symptoms persist, further evaluation with MRI is recommended. 2. Mild small vessel ischemic/degenerative changes. Reading Location: [id number]
--- OUTSIDE RECORDS SUMMARY | 2024-12-05 20:44 | XMS RPT_ITS | CCD ---
Author Organization [facility] Care Team Providers Care Machine Repairer Name Role Phone Giovanni Dumont Primary Care Provider Farage [employer] SAF[employer], Leonardo P Primary Care Provider Marques De La Cruz MD Unavailable Farage [employer], Leonardo P Primary Care Provider [phone] Farage [employer], Leonardo P Primary Care Provider Farage [employer]AF[employer], Leonardo P Primary Care Provider [phone] Farage [employer], Leonardo P Primary Care Provider Farage, Leonardo P Primary Care Provider KEVIN WOOD Referring Unavailable FARAGE, LEONARDO P Primary Care Unavailable CJ DALE Referring Unavail able FARAGE, LEONARDO P Primary Care Unavailable LYNDON MIRANDA Referring Unavailable FARAGE, LEONARDO P Primary Care Unavailable FARAGE, LEONARDO P Primary Care Unavailable Farage, Leonardo P Primary Care Provider Prince Turpin MD, Cali Unavailable NONE, PCP Referring Unavailable FARAGE, LEONARDO Primary Care Unavailable SHERRY PRUITT Admitting Unavailable JUAN A HINDS JR Attending Unavailable FARAGE, LEONARDO Primary Care Unavailable KIARA LUND Consulting Unavailable SHELDON BERUMEN Attending Unavailable SHELDON BERUMEN Admitting Unavailable TALIWAL, CALI Attending Unavailable FRANCOISIWAL, CALI Referring Unavailable FARAGE, LEONARDO Primary Care Unavailable PRINCE, CALI Attending Unavailable FRANCOISIWAL, CALI Referring Unavailable FARAGE, LEONARDO Primary Care Unavailable Stephen MAYORGA, Mercedes Cuello Unavailable Elio ARZOLA, Dr. Alarcon Emergency Provider [facility] Doctor, Out of Primary Care Provider Jim Larkin DO, Dr. Minor Admit Provider [phone] Trae PORTILLO, Dr. Minor Attending Provider [phone] Trae PORTILLO, Dr. Minor Other Provider [phone] GABY, ALLEN Primary Care Unavailable SABDB ARZOLA~[id number], SABLE Theresa NAVEEN Attending Unavailable SABDB ARZOLA~[id number], SABLE Theresa NAVEEN Admitting Unavailable GABY, ALLEN Primary Care Unavailable SABDB ARZOLA~[id number], SABLE J NAVEEN Attending Unavailable SABDB ARZOLA~[id number], SABLE J NAVEEN Admitting Unavailable SABDB MD~[id number], SABLE Theresa NAVEEN Attending Unavailable GABY, ALLEN Primary Care Unavailable SABDB ARZOLA~[id number], SABLE J NAVEEN Admitting Unavailable SABDB ARZOLA~[id number], SABLE J NAVEEN Attending Unavailable SABDB ARZOLA~[id number], SABLE J NAVEEN Admitting Unavailable FARAGE, LEONARDO Primary Care Unavailable SABDB ARZOLA~[id number], SABLE J NAVEEN Attending Unavailable SABDB ARZOLA~[id number], SABLE J NAVEEN Admitting Unavailable FARAGE, LEONARDO Primary Care Unavailable GABY, ALLEN Primary Care Unavailable SABDB ARZOLA~[id number], SABLE J NAVEEN Attending Unavailable SABDB ARZOLA~[id number], SABLE J NAVEEN Admitting Unavailable GABY, ALLEN Primary Care Unavailable SABDB ARZOLA~[id number], SABLE J NAVEEN Attending Unavailable SABDB ARZOLA~[id number], SABLE J NAVEEN Admitting Unavailable FARAGE, LEONARDO P Primary Care Unavailable FARAGE, LEONARDO P Attending Unavailable SELF Referring Unavailable FARAGE, LEONARDO P Primary Care Unavailable FARAGE, LEONARDO P Primary Care Unavailable MINICH, VERENICE MORGAN Attending Unavailable SELF Referring Unavailable FARAGE, LEONARDO P Primary Care Unavailable MINICH, VERENICE MORGAN Referring Unavailable FARAGE, LEONARDO P Primary Care Unavailable ANGELCHVERENICE Attending Unavailable BHARATI DUMONT JR Attending Unav ailable FARAGE, LEONARDO P Primary Care Unavailable FARAGE, LEONARDO P Primary Care Unavailable BHARATI DUMONT JR Attending Unav ailable SELF Referring Unavailable BHARATI DUMONT JR Attending Unav ailable FARAGE, LEONARDO P Primary Care Unavailable SELF Referring Unavailable FARAGE, LEONARDO P Primary Care Unavailable KEVIN WOOD Attending Unavailable FARAGE, LEONARDO P Primary Care Unavailable CHITO CJCuate JACINTO Attending Unavail able FARAGE, LEONARDO P Primary Care Unavailable SELF Referring Unavailable KEVIN WOOD Attending Unavailable FARAGE, LEONARDO P Primary Care Unavailable Iván Larkin Attending Unavailable Iván Larkin Consulting Unavailable Jopperi, Iván Admitting Unavailable [facility] Doctor, Out of Primary Care Unavailable Eulalio, Ramana Chi Referring Unavailable Eulalio, Ramana Chi Attending Unavailable Eulalio, Ramana Chi Admitting Unavailable [facility] Doctor, Out of Primary Care Unavailable Pedro [facility]arkinic Attending Unavailable Trae Iván Admitting Unavailable [facility] Doctor, Out of Primary Care Unavailable Medications Current Medications Medication Drug Class(es) Dates Sig (Normalized) Sig (Original) acetaminophen 500 mg oral tablet (20 sources) Start: 12-01-2024 take 2 tablets by mouth every eight hours Acetaminophen 500 mg Tablet Active 1000 mg PO EVERY 8 HOURS 0 December 01, 2024 12:00am Start: 11-07-2024 End: 11-18-2024 take 1 tablet by mouth every six hours as needed for pain and fever acetaminophen (Tylenol) tablet 650 mg Start: 07-18-2024 End: 07-24-2024 take 1 tablet by mouth every six hours as needed for pain and fever acetaminophen (Tylenol) tablet 650 mg Start: 05-08-2021 acetaminophen (TYLENOL) tablet 650 mg Start: 04-21-2021 acetaminophen (TYLENOL) tablet 650 mg Start: 08-19-2020 End: 08-24-2020 take 2 tablets by mouth four times daily as needed for pain acetaminophen (TYLENOL) 500 MG tablet Take 2 tablets by mouth 4 times daily as needed for Pain 20 tablet 0 08/19/2020 Active take 1 tablet by jeancarlos th every six hours as needed acetaminophen (Tylenol Extra Strength) 500 MG tablet Take 1 tablet by mouth every 6 hours as needed. Active amoxicillin 875 mg / clavulanate 125 mg oral tablet (11 sources) Penicillin-class Antibacterial Start: 07-05-2022 End: 08-06-2022 take 1 tablet by mouth every twelve hours amoxicillin-clavulanic acid (AUGMENTIN) 875-125 mg per tablet Take 1 tablet by mouth every 12 hours for 21 days. 42 tablet 0 07/16/2022 08/06/2022 Active Start: 06-02-2022 End: 06-12-2022 take 1 tablet by mouth twice daily amoxicillin-clavulanic acid (AUGMENTIN) 875-125 mg per tablet Indications: Trigger middle finger of right hand Take 1 tablet by mouth twice daily for 10 days. 20 tablet 0 06/02/2022 06/08/2022 Discontinued Start: 10-07-2021 End: 10-14-2021 take 1 tablet by mouth every twelve hours amoxicillin-clavulanic acid (AUGMENTIN) 875-125 mg per tablet Indications: Acute bronchitis, unspecified organism Take 1 tablet by mouth every 12 hours for 7 days. 14 tablet 0 10/07/2021 10/14/2021 Active Comment on above: Take 1 tablet by jeancarlos th every 12 hours for 7 days. Take 1 tablet by jeancarlos th twice daily for 10 days. Take 1 tablet by jeancarlos th every 12 hours for 10 days. Take 1 tablet by jeancarlos th every 12 hours for 21 days. azelastine hydrochloride 0.137 mg/actuat metered dose nasal spray (1 source) Histamine-1 Receptor Antagonist Start: End: take 1 spray(s) nasal route twice daily azelastine (ASTELIN) 0.1% nasal spray Indications: URI, acute , Cough Use 1 [place] in each nostril twice daily. 30 mL 0 09/02/2021 10/07/2021 Discontinued Comment on above: Use 1 [place] in each nostril twice daily. chlorzoxazone 500 mg oral tablet (20 sources) Muscle Relaxant Start: 023 End: take 1 tablet by mouth four times daily as needed chlorzoxazone (PARAFON FORTE DSC) 500 mg tablet Indications: Neck pain Take 1 tablet by mouth four times a day as needed. 30 tablet 05/29/2023 07/10/2024 Discontinued Comment on above: Take 1 tablet by jeancarlos th four times a day as needed. cholecalciferol 0.025 mg oral tablet (7 sources) Vitamin D Start: 019 take 1 tablet by mouth once daily vitamin D (CHOLECALCIFEROL) 1000 UNIT TABS tablet Take 1 tablet by mouth daily 60 tablet 1 08/07/2018 Active ciprofloxacin 250 mg oral tablet (2 sources) Quinolone Antimicrobial Start: 025 End: take 1 tablet by mouth twice daily ciprofloxacin HCl (CIPRO) 250 mg tablet Indications: Recurrent UTI (urinary tract infection) Take 1 tablet by mouth two times a day for 7 days. 14 tablet 09/05/2024 09/12/2024 Active clindamycin 300 mg oral capsule (3 sources) Lincosamide Antibacterial Start: 023 End: take 1 capsule by mouth every eight hours clindamycin (CLEOCIN) 300 mg capsule Indications: Postoperative state Take 1 capsule by mouth every 8 hours for 10 days. 30 capsule 0 06/14/2022 06/24/2022 Active Comment on above: Take 1 capsule by mo [facility] every 8 hours for 10 days. clonazePAM 0.5 mg oral tablet (6 sources) Benzodiazepine Start: clonazePAM (KLONOPIN) 0.5 MG tablet Take 0.5 mg by mouth daily.. 0 07/18/2018 Active colestipol hydrochloride 1000 mg oral tablet (20 sources) Bile Acid Sequestrant Start: 023 End: take 1 tablet by mouth twice daily colestipol (COLESTID) 1 gram tablet Indications: Diarrhea, unspecified type Take 1 tablet by mouth two times a day. 180 tablet 05/29/2023 07/10/2024 Discontinued Start: 08-04-2022 End: 09-03-2022 take 1 tablet by mouth twice daily colestipol (COLESTID) 1 gram tablet Indications: Diarrhea, unspecified type Take 1 tablet by mouth twice daily. 60 tablet 2 08/04/2022 Active Comment on above: Take 1 tablet by [facility]ancarlos twice daily. [facility] cyclobenzaprine hydrochloride 5 mg oral tablet (2 sources) Muscle Relaxant Start: 10-11-19 End: 10-16-19 take 1 tablet by mouth once daily as needed for muscle spasms cyclobenzaprine (FLEXERIL) 5 MG tablet Take 1 tablet by mouth daily as needed for Muscle spasms 5 tablet 0 10/10/2021 10/15/2021 Active Start: 05-09-2021 cyclobenzaprin e (FLEXERIL) tablet 5 mg 1 ml denosumab 60 mg/ml prefilled syringe (20 sources) RANK Ligand Inhibitor Start: 03-16-2021 End: 07-10-2024 denosumab (PROLIA) 60 mg/mL Indications: Osteopenia of multiple sites Inject 1 mL subcutaneously once every 6 months. 1 mL 2 03/16/2021 07/10/2024 Discontinued Comment on above: Inject 1 mL subcutan eously once every 6 months. erythromycin 0.005 mg/mg ophthalmic ointment (1 source) Macrolide, Macrolide Antimicrobial Start: 03-20-2023 End: 03-27-2023 erythromycin (ROMYCIN) 5 mg/gram (0.5 %) ophthalmic ointment Indications: Eye drainage Use 1 application in both eyes four times daily for 7 days. 3.5 g 0 03/20/2023 03/27/2023 Active Comment on above: Use 1 application in both eyes four times daily for 7 days. gabapentin 300 mg oral capsule (20 sources) Anti-epileptic Agent Start: 09-20-2020 take 1 capsule by mouth once daily GABAPENTIN 100 MG CAPS 1 capsule by mouth every night gabapentin [id number] Trever Gutierrez LPN Start: 06-07-2018 End: 11-18-2024 take 1 capsule by mouth twice daily Gabapentin 300 mg capsule Active 300 mg PO TWICE A DAY November 30, 2024 12:00am Comment on above: Take 300 mg by mouth twice daily. Pain MGMT Take 300 mg by mouth two times a day. Pain MGMT hydrOXYzine hydrochloride 10 mg oral tablet (20 sources) Antihistamine Start: 12-01-19 take 1 tablet by mouth at bedtime Hydroxyzine Hcl 10 mg tablet Active 10 mg PO AT BEDTIME November 30, 2024 12:00am Start: 11-07-2024 End: 11-18-2024 take 1 tablet by mouth every six hours as needed for anxiety Start: 03-17-2024 End: 07-24-2024 take 1 tablet by mouth every six hours as needed hydrOXYzine HCl (Atarax) 10 MG tablet Take 10 mg by mouth every 6 hours as needed. 03/17/2024 Active Start: 09-13-2023 End: 09-05-2024 take 1 tablet by mouth once daily at bedtime hydrOXYzine HCl (ATARAX) 10 mg tablet Indications: Adjustment disorder with mixed anxiety and depressed mood Take 1 tablet by mouth daily at bedtime. 90 tablet 1 08/14/2024 09/05/2024 Discontinued Start: 05-29-2023 End: 08-27-2023 take 1 tablet by mouth at bedtime as needed for anxiety hydrOXYzine HCl (ATARAX) 10 mg tablet Indications: Adjustment disorder with mixed anxiety and depressed mood Take 1 tablet by mouth at bedtime as needed. For Anxiety 90 tablet 0 05/29/2023 08/27/2023 Active Start: 11-24-2021 End: 02-14-2023 take 1 tablet by mouth at bedtime as needed for anxiety hydrOXYzine HCl (ATARAX) 10 mg tablet Indications: Adjustment disorder with mixed anxiety and depressed mood TAKE ONE TABLET BY MOUTH AT BEDTIME NEEDED FOR ANXIETY 90 tablet 0 02/14/2023 Active Start: 07-08-2021 take 1 tablet by jeancarlos th at bedtime as needed for anxiety hydrOXYzine HCl (ATARAX) 10 mg tablet Indications: Adjustment disorder with mixed anxiety and depressed mood Take 1 tablet by mouth at bedtime as needed for anxiety. 90 tablet 1 07/08/2021 Active Comment on above: Take 1 tablet by jeancarlos th at bedtime as needed for anxiety. TAKE ONE TABLET BY M OUTH AT BEDTIME NEEDED FOR ANXIETY Take 1 tablet by jeancarlos th at bedtime as needed. For Anxiety TAKE ONE TABLET BY M OUTH EVERY DAY AT BEDTIME NEEDED FOR ANXIETY levothyroxine sodium 0.088 mg oral tablet (20 sources) l-Thyroxine Start: 11-08-2024 End: 11-18-2024 take 88 ug by mouth every twenty-four hours 88 mcg, Oral, Every 24 hours, First dose on 11/08/24 at 0600, Tube feeding (TF) interaction, obtain physician order to manage, recommend holding TF for 30 minutes before and after dose. Start: 03-17-2024 End: 07-24-2024 take 1 tablet by mouth every twenty-four hours Synthroid 88 MCG tablet Take 88 mcg by mouth Every 24 hours. 03/17/2024 Active Start: 05-29-2023 End: 10-20-2024 take 1 tablet by mouth once daily Levothyroxine 88 mcg tablet Active 88 ug PO DAILY November 30, 2024 12:00am Start: 08-10-2016 End: 02-16-2023 take 1 tablet by mouth once daily levothyroxine (SYNTHROID) 88 mcg tablet Indications: Postsurgical hypothyroidism Take 1 tablet by mouth once daily. 90 tablet 1 02/16/2023 Active Comment on above: Take 1 tablet by jeancarlos th once daily. take 1 tablet by jeancarlos th once daily take one tablet by m out once daily lidocaine 0.05 mg/mg medicated patch (17 sources) Antiarrhythmic, Amide Local Anesthetic Start: 12-01-2024 Lidocaine 5 % Adhesive Patch,Medicated Active 1 NMA TOPICAL DAILY 0 December 01, 2024 12:00am Please contact the information source for Protocol details. Start: 10-27-2024 End: 10-27-2024 1 mL, Injection - FOR ORTHO USE ONLY, ONCE, 1 dose, Starting on Sun10/27/24 at 1409, Until Sun10/27/24 at 1409 Start: 10-27-2024 End: 10-27-2024 lidocaine (PF) 10 mg/mL (1 % ) 1 mL injection (XYLOCAINE) Start: 04-16-2024 End: 04-16-2024 As needed, Starting on Sun06/16/23 at 1113, Intraprocedure Start: 02-15-2024 End: 02-15-2024 1 mL, Injection - FOR ORTHO USE ONLY, ONCE, 1 dose, Starting on Sun02/15/24 at 0923, Until Sun02/15/24 at 0923 Start: 02-15-2024 End: 02-15-2024 lidocaine (PF) 10 mg/mL (1 % ) 1 mL injection (XYLOCAINE) Start: 12-20-2022 End: 12-20-2022 lidocaine (PF) 10 mg/mL (1 % ) 2 mL injection (XYLOCAINE) Start: 04-07-2022 End: 04-07-2022 lidocaine (PF) 10 mg/mL (1 % ) 1 mL injection (XYLOCAINE) Start: 04-07-2022 End: 04-07-2022 lidocaine (PF) 10 mg/mL (1 % ) 1 mL injection (XYLOCAINE) Start: 10-10-2021 End: 10-20-2021 lidocaine (LIDODERM) 5 % Penny ce 1 patch onto the skin daily for 10 days 12 hours on, 12 hours off. 10 patch 0 10/10/2021 10/20/2021 Active Start: 08-19-2020 End: 09-18-2020 apply 1 dose transdermal route once daily lidocaine 4 % external patch Place 1 patch onto the skin daily 30 patch 0 08/19/2020 09/18/2020 Active loperamide hydrochloride 2 mg oral capsule (1 source) Opioid Agonist Start: 04-24-2021 loperamide (IMODIUM) capsule 2 mg meloxicam 15 mg oral tablet (1 source) Nonsteroidal Anti-inflammatory Drug Start: 10-10-2021 take 1 tablet by mouth once daily meloxicam (MOBIC) 15 MG tablet Take 1 tablet by mouth daily 30 tablet 0 10/10/2021 Active nitrofurantoin, macrocrystals 25 mg / nitrofurantoin, monohydrate 75 mg oral capsule (1 source) Nitrofuran Antibacterial Start: 07-04-2024 End: 07-09-2024 take 1 capsule by mouth twice daily nitrofurantoin monohydrate and macrocrystal (MACROBID) 100 mg capsule Indications: Urinary tract infection without hematuria, site unspecified Take 1 capsule by mouth two times a day for 5 days. 10 capsule 07/04/2024 07/09/2024 Active ondansetron 8 mg oral tablet (9 sources) Serotonin-3 Receptor Antagonist Start: 06-07-2022 End: 06-24-2022 take 1 tablet by mouth every twelve hours as needed for nausea ondansetron (ZOFRAN) 8 mg tablet Indications: Postoperative state , Nausea Take 1 tablet by mouth every 12 hours as needed for nausea/vomiting for up to 10 days. 20 tablet 1 06/14/2022 06/24/2022 Active Start: 10-10-2021 End: 10-10-2021 ondansetron (ZOFRAN) injecti on 4 mg Start: 04-21-2021 End: 04-21-2021 ondansetron (ZOFRAN) injecti on 4 mg Start: 04-21-2021 End: 04-21-2021 ondansetron (ZOFRAN) 4 MG/2M L injection Comment on above: Take 1 tablet by jeancarlos th every 12 hours as needed for nausea/vomiting. Take 1 tablet by jeancarlos th every 12 hours as needed for nausea/vomiting for up to 10 days. ondansetron (ZOFRAN-ODT) disintegrating tablet 4 mg (2 sources) Start: 05-08-2021 ondansetron (ZOFRAN-ODT) disintegrating tablet 4 mg Start: 04-21-2021 ondansetron (Z OFRAN-ODT) disintegrating tablet 4 mg oxyCODONE hydrochloride 10 mg oral tablet (6 sources) Opioid Agonist Start: 11-30-2024 End: 12-01-2024 take 1 tablet by mouth every four hours as needed for pain Oxycodone 10 mg tablet Active 10 mg PO Q4H as needed for pain 12 December 01, 2024 4:00pm Start: 07-17-2022 End: 07-22-2022 take 1 tablet by mouth every six hours as needed for pain oxyCODONE IR (ROXICODONE) 5 mg immediate release tablet Indications: Abscess of right middle finger Take 1 tablet by mouth every 6 hours as needed for pain for up to 5 days. 20 tablet 0 07/17/2022 07/22/2022 Active Start: 05-07-2021 oxyCODONE (ABNER ICODONE) immediate release tablet 5 mg Comment on above: Take 1 tablet by jeancarlos th every 6 hours as needed for pain for up to 5 days. pantoprazole 40 mg delayed release oral tablet (8 sources) Proton Pump Inhibitor Start: 9 take 1 tablet by mouth once daily before breakfast pantoprazole (PROTONIX) 40 MG tablet Take 1 tablet by mouth every morning (before breakfast) 30 tablet 0 08/07/2018 Active perflutren lipid microspheres (DEFINITY) injection 1.65 mg (1 source) Start: 1 End: 1 perflutren lipid microspheres (DEFINITY) injection 1.65 mg sertraline 100 mg oral tablet (20 sources) Serotonin Reuptake Inhibitor Start: 5 End: 5 take 200 mg by mouth once daily 200 mg, Oral, Daily, First dose on 11/08/24 at 0800 Start: 07-18-2024 End: 07-24-2024 take 200 mg by mouth once daily 200 mg, Oral, Daily, F irst dose on Sun07/18/24 at 1800 Start: 05-29-2023 End: 10-20-2024 take 2 tablets by mouth once daily Sertraline 100 mg tablet Active 200 mg PO DAILY November 30, 2024 12:00am Start: 07-08-2021 End: 02-14-2023 take 2 tablets by mouth once daily sertraline (ZOLOFT) 100 mg tablet Indications: Adjustment disorder with mixed anxiety and depressed mood TAKE TWO TABLETS BY MOUTH ONCE DAILY 180 tablet 0 02/14/2023 Active Start: 07-18-2018 sertraline (ZO LOFT) 50 MG tablet Take 50 mg by mouth 0 07/18/2018 Active Comment on above: Take 2 tablets by mo uth once daily. take 2 tablets by mo uth once daily TAKE TWO TABLETS BY MOUTH once DAILY sodium chloride flush 0.9 % injection 3 mL (2 sources) Start: 05-07-2021 sodium chloride flush 0.9 % injection 3 mL Start: 04-21-2021 sodium chlorid e flush 0.9 % injection 3 mL SUMAtriptan 50 mg oral table t (20 sources) Serotonin-1b and Serotonin-1d Receptor Agonist Start: 07-18-2024 End: 07-24-2024 Start: 05-29-2023 End: 10-20-2024 Sumatriptan Succinate 50 mg tablet Active 50 mg PO .COMPLEX November 30, 2024 12:00am 50 mg orally AT ONSET OF HANKS; Start: 05-29-2023 take 2 tablets by mo uth once as needed SUMAtriptan (Imitrex) 50 MG tablet Take 100 mg by mouth Once as needed for migraine. 05/29/2023 Active Start: 09-02-2021 [facility] two hours as needed for headache SUMAtriptan (IMITREX) 50 mg tablet Indications: Migraine without status migrainosus, not intractable, unspecified migraine type Take 1 tablet by mouth as needed (at onset of headache. May repeat after 2 hours.). 9 tablet 1 09/02/2021 Active Start: 05-09-2021 End: 05-09-2021 SUMAtriptan (IMITREX) tablet 50 mg Start: 08-10-2016 IMITREX 25 MG TABS tablet by mouth as needed sumatriptan succinate [id number] Dinah Wood AT Comment on above: Take 1 tablet by jeancarlos th as needed (at onset of headache. May repeat after 2 hours.). Take 1 tablet (50 mg ) by mouth as needed (at onset of headache. May repeat after 2 hours.). vancomycin 125 mg oral capsule (4 sources) Glycopeptide Antibacterial Start: End: take 1 capsule by mouth four times daily vancomycin (Vancocin) 125 MG capsule Take 1 capsule (125 mg) by mouth 4 times daily for 4 days. 16 capsule 07/23/2024 07/27/2024 Active Start: 07-20-2024 End: 07-24-2024 take 1 dose by mouth four times daily 125 mg, Oral, Every 6 hours scheduled (4 times per day), First dose on Sun07/20/24 at 1630, For 10 days, Suspected Indication (Select all that apply): Infectious Diarrhea Completed/Discontinued Medications Medication Drug Class(es) Dates Sig (Normalized) Sig (Original) Acetaminophen / HYDROcodone (20 sources) Opioid Agonist Start: 11-07-2024 End: 11-18-2024 take 1 tablet by mouth every four hours as needed for pain HYDROcodone-aceta minophen ([place]) 5-325 MG per tablet 1 tablet Start: 07-18-2024 End: 07-24-2024 take 2 tablets by mouth every six hours as needed for pain and pain 2 tablet, Oral, Every 6 hours PRN, severe pain (7-10), moderate pain (4-6), Starting on Sun07/18/24 at 1820, Maximum dose of acetaminophen is 4000 mg from all sources in 24 hours. Start: 07-18-2023 take 1 tablet by jeancarlos th every six hours as needed HYDROcodone-acetaminophen (Vicodin) 10-300 MG tablet Take 1 tablet by mouth every 6 hours as needed. 07/18/2023 Active Start: 04-21-2021 End: 04-22-2021 HYDROcodone-acetaminophen (N ORCO) 5-325 MG per tablet 1 tablet Start: 08-19-2020 End: 08-19-2020 HYDROcodone-acetaminophen (N ORCO) 5-325 MG per tablet 1 tablet Start: 09-02-2018 take 1 tablet by jeancarlos th twice daily HYDROcodone-Acetaminophen (NORCO) 7.5-325 mg per tablet Take 1 tablet by mouth twice daily. 0 09/02/2018 Suspended Start: 01-04-2017 End: 04-22-2021 HYDROcodone-acetaminophen (N ORCO) 5-325 MG per tablet Take 1 tablet by mouth 2 times daily.. 0 01/04/2017 Active Comment on above: Take 1 tablet by jeancarlos th twice daily. albuterol 0.83 mg/ml inhalation solution (2 sources) beta2-Adrenergic Agonist Start: End: 2.5 mg, Nebulization, Every 2 hour PRN, wheezing, Starting on Sun11/07/24 at 2229, Initiate RT Bronchodilator Protocol: albuterol 0.833 mg/ml / ipratropium bromide 0.167 mg/ml inhalation solution (2 sources) Anticholinergic, beta2-Adrenergic Agonist Start: End: 3 mL, Nebulization, 4 times daily, First dose (after last modification) on Sun11/08/24 at 0800 ALPRAZolam 0.5 mg disintegrating oral tablet (2 sources) Benzodiazepine Start: End: take 1 tablet by mouth once 1 mg, Oral, Once, On Sun04/16/24 at 1030, For 1 dose, Using dry hands, place tablet on top of tongue and allow to disintegrate. Administration with water is not necessary. Start: 04-16-2024 End: 04-16-2024 take 1 tablet by mouth once 1 mg, Oral, Once, On Sun06/16/23 at 1030, For 1 dose, Using dry hands, place tablet on top of tongue and allow to disintegrate. Administration with water is not necessary. azithromycin 250 mg oral tablet (2 sources) Macrolide Antimicrobial Start: 11-07-2024 End: 11-08-2024 take 1 capsule by mouth every twenty-four hours 500 mg, Oral, Every 24 hours, First dose on Sun11/07/24 at 2300, For 3 doses, Suspected Indication (Select all that apply): Pneumonia (CAP) benzonatate 100 mg oral capsule (12 sources) Non-narcotic Antitussive Start: 09-02-2021 End: 10-07-2021 take 1 capsule by mouth three times daily as needed for cough benzonatate (TESSALON PERLES) 100 mg capsule Indications: Acute bronchitis, unspecified organism Take 1 capsule by mouth three times daily as needed for cough. 30 capsule 0 10/07/2021 Active Comment on above: Take 1 capsule by [facility] three times daily as needed for cough. betamethasone 3 mg/ml / betamethasone acetate 3 mg/ml injectable suspension (9 sources) Corticosteroid Start: 10-27-2024 End: 10-27-2024 6 mg, Injection - FOR ORTHO USE ONLY, ONCE, 1 dose, Starting on Sun10/27/24 at 1409, Until Sun10/27/24 at 1409 Start: 10-27-2024 End: 10-27-2024 betamethasone acetate-betame thasone sodium phosphate 6 mg injection (CELESTONE) Start: 02-15-2024 End: 02-15-2024 6 mg, Injection - FOR ORTHO USE ONLY, ONCE, 1 dose, Starting on Sun02/15/24 at 0923, Until Sun02/15/24 at 0923 Start: 02-15-2024 End: 02-15-2024 betamethasone acetate-betame thasone sodium phosphate 6 mg injection (CELESTONE) Start: 12-20-2022 End: 12-20-2022 betamethasone acetate-betame thasone sodium phosphate 12 mg injection (CELESTONE) 168 hr buprenorphine 0.005 mg/hr transdermal system (6 sources) Partial Opioid Agonist Start: 02-26-2024 End: 07-24-2024 apply 1 dose transdermal route every week buprenorphine (Butrans) 5 MCG/HR Place 1 patch on the skin 1 (one) time per week. 02/26/2024 07/24/2024 Discontinued (Stop taking at discharge) calcium chloride 0.0014 meq/ml / potassium chloride 0.004 meq/ml / sodium chloride 0.103 meq/ml / sodium lactate 0.028 meq/ml injectable solution (6 sources) Start: 07-18-2024 End: 07-18-2024 500 mL, IntraVENous, at 1,000 mL/hr, Administer over 30 Minutes, Once, On Sun07/18/24 at 1805, For 1 dose, In accordance with Surviving Sepsis Campaign, infuse 30 mL/kg fluid challenge as rapidly as possible without overloading patient (target 30 to 60 minutes). If calculated rate exceeds 999 mL/hr, may administer wide open or using other rapid infusion mechanism. Start: 07-18-2024 End: 07-18-2024 150 mL/hr, IntraVENous, Once , On Sun07/18/24 at 1430, For 1 dose cefepime (Maxipime) 2,000 mg in sodium chloride 0.9 % 50 mL IVPB Mini-Bag Plus (4 sources) Start: 11-08-2024 End: 11-08-2024 take 2000 mg intravenously every twelve hours 2,000 mg, IntraVENous, at 12.5 mL/hr, Administer over 240 Minutes, Every 12 hours, First dose (after last modification) on Sun11/08/24 at 1100, Dosage or interval has been adjusted per [facility] Renal Dosing policy. Mini-Bag Plus bag, Suspected Indication (Select all that apply): Pneumonia (CAP) Start: 11-07-2024 End: 11-08-2024 2,000 mg, IntraVENous, at 10 0 mL/hr, Administer over 30 Minutes, Once, On Sun11/07/24 at 2245, For 1 dose, Mini-Bag Plus bag, Suspected Indication (Select all that apply): Pneumonia (CAP) cephalexin 500 mg oral capsule (1 source) Cephalosporin Antibacterial Start: 08-16-2023 End: 08-21-2023 take 1 capsule by mouth three times daily cephALEXin (KEFLEX) 500 mg capsule Take 1 capsule by mouth three times a day for 5 days. 15 capsule 0 08/16/2023 08/21/2023 Comment on above: Take 1 capsule by mo [facility] three times a day for 5 days. cetirizine hydrochloride 10 mg oral tablet (11 sources) Histamine-1 Receptor Antagonist Start: 09-02-2021 take 1 tablet by mouth once daily cetirizine (ZYRTEC) 10 mg tablet Indications: URI, acute Take 1 tablet by mouth once daily. 30 tablet 1 09/02/2021 Active Comment on above: Take 1 tablet by [facility] once daily. dicyclomine hydrochloride 10 mg oral capsule (20 sources) Anticholinergic Start: 07-18-2022 End: 08-14-2024 take 1 capsule by mouth every eight hours as needed for diarrhea and diarrhea dicyclomine (BENTYL) 10 mg capsule Indications: Diarrhea, unspecified type Take 1 capsule by mouth three times daily as needed (for abdominal pain). 60 capsule 1 07/18/2022 08/14/2024 Discontinued Comment on above: Take 1 capsule by mo [facility] three times daily as needed (for abdominal pain). doxycycline hyclate 100 mg oral tablet (9 sources) Tetracycline-class Drug Start: 05-24-2022 End: 06-03-2022 take 1 tablet by mouth twice daily doxycycline (VIBRA-TABS) 100 mg tablet Indications: Trigger middle finger of left hand Take 1 tablet by mouth twice daily for 10 days. 20 tablet 0 05/24/2022 06/03/2022 Comment on above: Take 1 tablet by [facility] twice daily for 10 days. 0.3 ml enoxaparin sodium 100 mg/ml prefilled syringe (4 sources) Low Molecular Weight Heparin Start: 07-18-2024 End: 07-24-2024 inject 30 mg by subcutaneous injection every twenty-four hours 30 mg, SubCUTAneous, Every 24 hours scheduled (Daily), First dose on Sun07/18/24 at 1805, Renal dosing, Indication of Use: Prophylaxis-DVT/PE, Indications: Prophylaxis of Venous Thromboembolism Start: 05-08-2021 enoxaparin (LO VENOX) injection 40 mg Start: 04-21-2021 enoxaparin (LO VENOX) injection 40 mg famotidine 20 mg oral tablet (20 sources) Histamine-2 Receptor Antagonist Start: 07-18-2024 End: 07-24-2024 take 20 mg by mouth once daily 20 mg, Oral, Daily, First dose on Sun07/18/24 at 1800 Start: 04-01-2024 End: 08-14-2024 take 1 tablet by mouth twice daily famotidine (Pepcid) 20 MG tablet Take 20 mg by mouth twice a day. 04/01/2024 Active fidaxomicin 200 mg oral tablet (2 sources) Macrolide Antibacterial Start: 11-07-2024 End: 11-17-2024 take 200 mg by mouth twice daily 200 mg, Oral, 2 times daily, First dose on Sun11/07/24 at 2130, For 10 days, Suspected Indication (Select all that apply): Intra-Abdominal Infection fluconazole 100 mg oral tablet (1 source) Azole Antifungal Start: 07-05-2022 take 1 tablet by mouth once daily fluconazole (DIFLUCAN) 100 mg tablet Indications: Trigger middle finger of right hand Take 1 tablet by mouth once daily. 14 tablet 0 07/05/2022 Active Comment on above: Take 1 tablet by jeancarlos once daily. 2 ml furosemide 10 mg/ml injection (4 sources) Loop Diuretic Start: 11-08-2024 End: 11-18-2024 20 mg, IntraVENous, 2 times daily, First dose on 11/08/24 at 2145, On hold since 11/09/2024 at 1009 until manually unheld Start: 11-08-2024 End: 11-08-2024 20 mg, IntraVENous, Once, On 11/08/24 at 0530, For 1 dose iopamidol (ISOVUE-300) 61 % injection 25 mL (1 source) Start: 11-09-2020 End: 11-09-2020 iopamidol (ISOVUE-300) 61 % injection 25 mL 1 ml ketorolac tromethamine 30 mg/ml cartridge (1 source) Nonsteroidal Anti-inflammatory Drug, Cyclooxygenase Inhibitor Start: 10-10-2021 End: 10-10-2021 ketorolac (TORADOL) injection 9.9 mg 50 ml magnesium sulfate 40 mg/ml injection (2 sources) Start: 11-08-2024 End: 11-08-2024 2,000 mg, IntraVENous, at 25 mL/hr, Administer over 2 Hours, Once, On 11/08/24 at 0100, For 1 dose, Recommended infusion rate not to exceed 1,000 mg (milligrams) per hour. melatonin 3 mg oral tablet (2 sources) Start: 07-22-2024 End: 07-24-2024 take 3 mg by mouth once daily as needed for sleep 3 mg, Oral, Nightly PRN, sleep, Starting on Sun07/22/24 at 0104 methocarbamol 500 mg oral tablet (2 sources) Muscle Relaxant Start: 07-21-2024 End: 02-13-2025 take 1 tablet by mouth every eight hours as needed 500 mg, Oral, Every 8 hours PRN, muscle spasms, Starting on Sun07/21/24 at 1551 methylPREDNISolone (13 sources) Corticosteroid Start: 10-27-2022 methylPREDNISolone (MEDROL, CHUCKY,) 4 mg Dose-Pack Indications: acute gouty arthritis 6 day therapy as Instructed per package 1 tablet 0 10/27/2022 Active Start: 09-13-2022 methylPREDNISo lone (MEDROL, CHUCKY,) 4 mg Dose-Pack Indications: acute gouty arthritis 6 day therapy as Instructed per package 1 tablet 1 09/13/2022 Active Comment on above: 6 day therapy as Ins tructed per package midodrine hydrochloride 2.5 mg oral tablet (13 sources) alpha-Adrenergic Agonist Start: 3 End: 3 take 1 tablet by mouth twice daily midodrine (PROAMATINE) 2.5 mg tablet Take 1 tablet by mouth twice daily for 7 days. Hold for SBP>140. 14 tablet 0 07/17/2022 Active Comment on above: Take 1 tablet by jeancarlos twice daily for 7 days. Hold for SBP>140. 1 ml morphine sulfate 4 mg/ml injection (2 sources) Opioid Agonist Start: 2 End: 2 morphine sulfate (PF) injection 4 mg Start: 04-21-2021 End: 04-21-2021 morphine sulfate (PF) inject ion 4 mg 1 ml naloxone hydrochloride 0.4 mg/ml injection (4 sources) Opioid Antagonist Start: 11-07-2024 End: 11-18-2024 0.4 mg, IntraVENous, Every 5 min PRN, opioid reversal, respiratory depression, Starting on Sun11/07/24 at 2157, +++ For RR Start: 07-18-2024 End: 07-24-2024 0.4 mg, IntraVENous, Every 5 min PRN, opioid reversal, respiratory depression, Starting on Sun07/18/24 at 1822, +++ For RR ondansetron ODT (Zofran-ODT) disintegrating tablet 4 mg (4 sources) Start: 11-07-2024 End: 11-18-2024 take 1 tablet by mouth every eight hours as needed for nausea and vomiting ondansetron ODT (Zofran-ODT) disintegrating tablet 4 mg Start: 07-18-2024 End: 07-24-2024 take 1 tablet by mouth every eight hours as needed for nausea and vomiting ondansetron ODT (Zofran-ODT) disintegrating tablet 4 mg piperacillin-tazobactam (Zosyn) 4,500 mg in sodium chloride 0.9 % 100 mL IVPB Mini-Bag Plus (2 sources) Start: 11-08-2024 End: 11-14-2024 take 4500 mg intravenously every six hours 4,500 mg, IntraVENous, at 33.3 mL/hr, Administer over 3 Hours, Every 6 hours, First dose on 11/08/24 at 1800, For 25 doses, Mini-Bag Plus bag, Suspected Indication (Select all that apply): Pneumonia (CAP) polyethylene glycol 3350 78723 mg powder for oral solution (4 sources) Osmotic Laxative Start: 07-18-2024 End: 07-24-2024 take 17 g by mouth every twenty-four hours as needed for constipation 17 g, Oral, Daily PRN, constipation, Starting on Sun07/18/24 at 1759, 1st line for treatment of constipation - give scheduled if no bowel movement in past 24 hours. Start: 05-08-2021 polyethylene g lycol (GLYCOLAX) packet 17 g Start: 04-21-2021 polyethylene g lycol (GLYCOLAX) packet 17 g microencapsulated potassium chloride 10 meq extended release oral tablet (20 sources) Start: 11-15-2024 End: 11-15-2024 40 mEq, Oral, Once, On Sun11/15/24 at 1400, For 1 dose, Best given with food and plenty of water to minimize gastric irritation. Do not crush or chew. Start: 11-11-2024 End: 11-11-2024 40 mEq, Oral, Once, On Sun at 1145, For 1 dose, Best given with food and plenty of water to minimize gastric irritation. Do not crush or chew. Start: 11-10-2024 End: 11-10-2024 take 1 [oz_av] by mouth once 40 mEq, Oral, Once, On Mo 11/10/24 at 0245, For 1 dose, Dissolve each packet in 4 ounces of water = 5 mEq per 1 oz fluid., Indications: Hypokalemia Start: 11-10-2024 End: 11-10-2024 40 mEq, IntraVENous, at 125 mL/hr, Administer over 4 Hours, Once, On 11/10/24 at 0245, For 1 dose, Max infusion rate = 10 mEq/hr Start: 11-08-2024 End: 11-09-2024 40 mEq, IntraVENous, at 125 mL/hr, Administer over 4 Hours, Once, On 11/08/24 at 2145, For 1 dose, Max infusion rate = 10 mEq/hr Start: 11-08-2024 End: 11-08-2024 take 1 [oz_av] by mouth once 40 mEq, Oral, Once, On Sa t 11/08/24 at 2145, For 1 dose, Dissolve each packet in 4 ounces of water = 5 mEq per 1 oz fluid., Indications: Hypokalemia Start: 11-08-2024 End: 11-08-2024 40 mEq, IntraVENous, at 125 mL/hr, Administer over 4 Hours, Once, On 11/08/24 at 0300, For 1 dose, Max infusion rate = 10 mEq/hr Start: 07-23-2024 End: 07-24-2024 take 1 [oz_av] by mouth twice daily at mealtime 40 mEq, Oral, 2 times daily with meals, First dose (after last reorder) on [place] 07/24/24 at 0900, For 2 doses, Dissolve each packet in 4 ounces of water = 5 mEq per 1 oz fluid. Start: 07-20-2024 End: 07-23-2024 take 1 [oz_av] by mouth once 40 mEq, Oral, Once, On Mo n 07/21/24 at 0930, For 1 dose, Dissolve each packet in 4 ounces of water = 5 mEq per 1 oz fluid. Start: 04-26-2021 End: 04-26-2021 potassium chloride (KLOR-CON M) extended release tablet 40 mEq Start: 04-22-2021 End: 04-23-2021 potassium chloride (KLOR-CON M) extended release tablet 40 mEq Start: 04-22-2021 End: 04-22-2021 potassium chloride 10 mEq/10 0 mL IVPB (Peripheral Line) 1 ml promethazine hydrochloride 25 mg/ml injection (1 source) Phenothiazine Start: 04-21-2021 End: 04-21-2021 promethazine (PHENERGAN) injection 6.25 mg Start: 04-21-2021 End: 04-21-2021 promethazine (PHENERGAN) inj ection 6.25 mg 5 ml sodium chloride 9 mg/ml injection (20 sources) Start: 11-07-2024 End: 11-18-2024 10 mL, IntraVENous, Every 12 hours scheduled (2 times per day), First dose on Sun11/07/24 at 2130 Start: 11-07-2024 End: 11-18-2024 take 100 mL intravenously every hour as needed, then take 20 mL intravenously every hour as needed 5-250 mL/hr, IntraVENous, PRN, if patient receiving piggyback infusions and maintenance fluids are not ordered OR KVO fluids to protect IV site / prevent frequent line interruptions/ long duration, Starting on Sun11/07/24 at 2120, For piggyback infusion, administer at same rate as piggyback for a total of 25 mL. Enter 25 mL into dose field and piggyback rate into rate field of order. If piggyback is infusing at a rate less than 100 mL/hr, enter 25 mL into dose field and 100 mL/hr into rate field of order. For KVO fluids, enter rate of 20 mL/hr or less into rate field of order. Start: 11-07-2024 End: 11-18-2024 take 10 mL intravenously once as needed 10 mL, IntraVENous, PRN, line care, Starting on Sun11/07/24 at 2120, After every IV line use Start: 07-18-2024 End: 07-24-2024 10 mL, IntraVENous, Every 12 hours scheduled (2 times per day), First dose on Sun07/18/24 at 2100 Start: 07-18-2024 End: 07-23-2024 take 75 mL intravenously every hour 75 mL/hr, IntraVENous, Continuous, Starting on Sun07/19/24 at 1115, For 8 hours Start: 07-18-2024 End: 07-24-2024 take 100 mL intravenously every hour as needed, then take 20 mL intravenously every hour as needed 5-250 mL/hr, IntraVENous, PRN, if patient receiving piggyback infusions and maintenance fluids are not ordered OR KVO fluids to protect IV site / prevent frequent line interruptions/ long duration, Starting on Sun07/18/24 at 1759, For piggyback infusion, administer at same rate as piggyback for a total of 25 mL. Enter 25 mL into dose field and piggyback rate into rate field of order. If piggyback is infusing at a rate less than 100 mL/hr, enter 25 mL into dose field and 100 mL/hr into rate field of order. For KVO fluids, enter rate of 20 mL/hr or less into rate field of order. Start: 07-18-2024 End: 07-24-2024 take 10 mL intravenously once as needed 10 mL, IntraVENous, PRN, line care, Starting on Sun07/18/24 at 1759, After every IV line use Start: 04-16-2024 End: 04-17-2024 take 50 mL intravenously every hour 50 mL/hr, IntraVENous, Continuous, Starting on Sun04/16/24 at 0900, Preprocedure Start: 05-08-2021 0.9 % sodium c hloride infusion Start: 05-08-2021 End: 05-11-2021 sodium chloride flush 0.9 % injection 5-40 mL Start: 05-07-2021 End: 05-07-2021 0.9 % sodium chloride bolus Start: 04-21-2021 IntraVENous, a t 75 mL/hr, CONTINUOUS, Starting on [place] 04/21/21 at 1345 Start: 04-21-2021 sodium chlorid e flush 0.9 % injection 5-40 mL Start: 04-21-2021 End: 04-21-2021 0.9 % sodium chloride bolus sulfamethoxazole 800 mg / trimethoprim 160 mg oral tablet (1 source) Dihydrofolate Reductase Inhibitor Antibacterial, Sulfonamide Antimicrobial Start: 06-08-2022 End: 06-14-2022 take 1 tablet by mouth twice daily sulfamethoxazole-trimethoprim (BACTRIM DS) 800-160 mg per tablet Indications: Trigger middle finger of right hand , Postoperative infection, unspecified type, subsequent encounter , Postoperative state Take 1 tablet by mouth twice daily for 10 days. 20 tablet 0 06/08/2022 06/14/2022 Discontinued (Changing Therapy/Dosage Form) Comment on above: Take 1 tablet by jeancarlos th twice daily for 10 days. tiZANidine 4 mg oral tablet (20 sources) Central alpha-2 Adrenergic Agonist Start: 08-25-2020 take 1 tablet by mouth every twenty-fo ur hours as needed for muscle spasms and muscle spasms tiZANidine (ZANAFLEX) 4 mg tablet Indications: Muscle spasm of right shoulder Take 1 tablet by mouth at bedtime as needed. 20 tablet 0 08/25/2020 Active Comment on above: Take 1 tablet by jeancarlos th at bedtime as needed. traMADol hydrochloride 50 mg oral tablet (3 sources) Opioid Agonist Start: 06-02-2022 End: 06-08-2022 take 1-2 tablets by mouth every eight hours as needed for pain traMADol (ULTRAM) 50 mg tablet Indications: Trigger middle finger of right hand Take 1-2 tablets by mouth every 8 hours as needed for pain. for pain. 9 tablet 0 06/02/2022 06/08/2022 Discontinued Comment on above: Take 1-2 tablets by mouth every 8 hours as needed for pain. for pain. 1 ml triamcinolone acetonide 40 mg/ml injection (2 sources) Corticosteroid Start: 04-07-2022 End: 04-07-2022 triamcinolone acetonide 40 m g injection (KeNALog 40) Start: 04-07-2022 End: 04-07-2022 triamcinolone acetonide 40 m g injection (KeNALog 40) Problems Active Problems Problem Classification Problem Date Documented Date Episodic/Chronic Acute bronchitis (2 sources) Acute bronchitis; Translations: [Acute bronchitis, unspecified] Episodic Adjustment disorders (20 sources) Adjustment disorder with mixed anxiety and depressed mood; Translations: [Adjustment disorder with mixed anxiety and depressed mood] Onset: 02-02-2020 05-07-2021 Chronic Anxiety disorders (20 sources) Mixed anxiety and depressive disorder; Translations: [Other specified anxiety disorders] Onset: 09-10-2015 05-07-2021 Chronic Complications of surgical procedures or medical care (20 sources) Postoperative hypothyroidism; Translations: [Postprocedural hypothyroidism] Onset: 09-10-2015 05-07-2021 Chronic Complications of surgical procedures or medical care (1 source) Postoperative infection; Translations: [Infection following a procedure, unspecified, subsequent encounter] Episodic Deficiency and other anemia (1 source) Anemia; Translations: [Anemia, unspecified] 08-14-2024 Episodic Deficiency and other anemia (4 sources) Chronic anemia; Translations: [Anemia, unspecified] 11-30-2024 Episodic Diseases of white blood cells (4 sources) Leukocytosis; Translations: [Elevated white blood cell count, unspecified] Onset: 07-18-2024 07-18-2024 Chronic Disorders of lipid metabolism (3 sources) Mixed hyperlipidemia; Translations: [Mixed hyperlipidemia] Onset: 08-18-2024 Chronic Esophageal disorders (20 sources) Gastroesophageal reflux disease without esophagitis; Translations: [Gastro-esophageal reflux disease without esophagitis] Onset: 10-22-2018 05-07-2021 Chronic External cause codes: Fall (2 sources) Fall; Translations: [Fall, initial encounter] Genitourinary symptoms and ill-defined conditions (20 sources) Incontinence; Translations: [Mixed incontinence] Onset: 01-25-2016 05-07-2021 Chronic Genitourinary symptoms and ill-defined conditions (20 sources) Urgent desire to urinate; Translations: [Urgency of urination] Onset: 09-10-2015 Resolved: 06-24-2018 05-07-2021 Episodic Headache; including migraine (20 sources) Migraine; Translations: [Migraine, unspecified, not intractable, without status migrainosus] Onset: 09-10-2015 05-07-2021 Chronic Intestinal infection (2 sources) Infection caused by Norovirus; Translations: [Infection due to Norovirus species] Onset: 08-06-2018 08-06-2018 Malaise and fatigue (1 source) Fatigue; Translations: [Other fatigue] Episodic Menopausal disorders (20 sources) Atrophy of vagina; Translations: [Postmenopausal atrophic vaginitis] Onset: 01-25-2016 05-07-2021 Chronic Mood disorders (20 sources) Major depression, single episode; Translations: [Major depressive disorder, single episode, unspecified] Onset: 10-22-2018 05-07-2021 Chronic Nausea and vomiting (2 sources) Nausea and vomiting; Translations: [Nausea with vomiting, unspecified] Episodic Nutritional deficiencies (20 sources) Vitamin D deficiency; Translations: [Nutritional marasmus] Onset: 08-06-2018 08-06-2018 Chronic Osteoarthritis (5 sources) Primary osteoarthritis, right hand; Translations: [Arthropathy, unspecified, hand] Onset: 02-15-2024 08-08-2023 Chronic Osteoporosis (20 sources) Osteoporosis; Translations: [Age-related osteoporosis without current pathological fracture] Onset: 12-30-2018 05-07-2021 Chronic Other aftercare (1 source) group home (current) use of opiate analgesic; Translations: [BATT PACKER CURRNT USE OPIATE ANALGES] Onset: 11-24-2024 Episodic Other aftercare (1 source) 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 therapy; Translations: [OTH BATT PACKER CURRENT DRUG THERAPY] Onset: 11-24-2024 Episodic Other circulatory disease (4 sources) Elevated blood-pressure reading without diagnosis of hypertension; Translations: [Elevated blood-pressure reading, without diagnosis of hypertension] 11-30-2024 Episodic Other connective tissue disease (1 source) Impingement syndrome of shoulder region; Translations: [Impingement syndrome of left shoulder] Onset: 09-19-2021 09-19-2021 Episodic Other connective tissue disease (8 sources) Pain in right hand; Translations: [Pain in right hand] Episodic Other connective tissue disease (3 sources) Subluxation of tendon, wrist or hand; Translations: [Spontaneous rupture of extensor tendons, right hand] 09-19-2023 Episodic Other connective tissue disease (1 source) Trigger finger, left middle finger; Translations: [Trigger middle finger of left hand] Onset: 10-27-2024 Episodic Other connective tissue disease (1 source) Trigger finger, left ring finger; Translations: [Trigger ring finger of left hand] Onset: 10-27-2024 Episodic Other ear and sense organ disorders (1 source) Bilateral hearing loss; Translations: [Unspecified hearing loss, bilateral] Chronic Other injuries and conditions due to external causes (2 sources) Osteoarthritis of wrist; Translations: [Other specified injuries of right wrist, hand and finger(s), initial encounter] Episodic Other injuries and conditions due to external causes (2 sources) Injury of left ankle; Translations: [Unspecified injury of left ankle, initial encounter] 02-01-2024 Episodic Other lower respiratory disease (3 sources) Acute pulmonary edema; Translations: [Acute pulmonary edema] Onset: 11-07-2024 11-08-2024 Episodic Other lower respiratory disease (1 source) Acute pulmonary edema; Translations: [Acute pulmonary edema (HCC)] Onset: 11-07-2024 Episodic Other nervous system disorders (20 sources) Chronic pain; Translations: [Other chronic pain] Onset: 07-22-2017 05-07-2021 Chronic Other nervous system disorders (20 sources) Chronic pain syndrome; Translations: [Chronic pain syndrome] Onset: 09-18-2017 06-28-2018 Chronic Other nervous system disorders (1 source) Carpal tunnel syndrome of right wrist; Translations: [Carpal tunnel syndrome, right upper limb] 12-20-2022 Chronic Other nervous system disorders (8 sources) Unable to walk; Translations: [Difficulty in walking, not elsewhere classified] Onset: 07-18-2024 07-18-2024 Chronic Other nervous system disorders (1 source) Other chronic pain; Translations: [Other chronic pain] Onset: 03-24-2022 Chronic Other nervous system disorders (2 sources) Difficulty in walking, not elsewhere classified; Translations: [Difficulty in walking, not elsewhere classified] Onset: 07-18-2024 Chronic Other nervous system disorders (4 sources) Difficulty walking; Translations: [Difficulty in walking, not elsewhere classified] 11-30-2024 Chronic Other nervous system disorders (1 source) Abnormal reflex; Translations: [ABNORMAL REFLEX] Onset: 11-24-2024 Episodic Other non-traumatic joint disorders (3 sources) Joint stiffness; Translations: [Stiffness of unspecified joint, not elsewhere classified] 08-29-2023 Episodic Other non-traumatic joint disorders (1 source) Pain of left wrist; Translations: [Pain in left wrist] 08-29-2023 Episodic Other nutritional; endocrine; and metabolic disorders (4 sources) Adult failure to thrive syndrome; Translations: [Adult failure to thrive] 11-30-2024 Episodic Other nutritional; endocrine; and metabolic disorders (2 sources) Adult failure to thrive; Translations: [Adult failure to thrive] Onset: 12-01-2024 Episodic Other screening for suspected conditions (not mental disorders or infectious disease) (2 sources) Patient encounter status; Translations: [Encounter for screening for diabetes mellitus] Episodic Residual codes; unclassified (4 sources) Other specified postprocedural states; Translations: [Other postprocedural status] Onset: 10-30-2016 10-30-2016 Episodic Residual codes; unclassified (3 sources) Postoperative state; Translations: [Other specified postprocedural states] Episodic Spondylosis; intervertebral disc disorders; other back problems (20 sources) Cervical spondylosis with radiculopathy; Translations: [Other spondylosis with radiculopathy, cervical region] Onset: 08-10-2016 01-22-2017 Chronic Sprains and strains (8 sources) Shoulder strain; Translations: [Strain of neck muscle] Onset: 12-01-2024 11-30-2024 Episodic Substance-related disorders (1 source) Noncompliance with medication regimen; Translations: [Continuous overuse of medication] 04-01-2024 Chronic Thyroid disorders (20 sources) Thyrotoxicosis; Translations: [Thyrotoxicosis, unspecified without thyrotoxic crisis or storm] Onset: 10-22-2018 05-07-2021 Chronic Unclassified (2 sources) Low back pain, unspecified; Translations: [Low back pain, unspecified] Onset: 03-24-2022 Unclassified (1 source) LOW BACK PAIN, UNSPECIFIED; Translations: [LOW BACK PAIN, UNSPECIFIED] Onset: 11-24-2024 Urinary tract infections (8 sources) Urinary tract infectious disease; Translations: [Urinary tract infection, site not specified] Onset: 09-15-2024 07-04-2024 Episodic Past or Other Problems Problem Classification Problem Date Documented Da te Episodic/Chronic Abdominal pain (14 sources) Abdominal pain; Translations: [Unspecified abdominal pain] Onset: 08-03-2018 08-03-2018 Episodic Deficiency and other anemia (1 source) Anemia, unspecified; Translations: [Anemia, unspecified type] Onset: 08-18-2024 Episodic E Codes: Fall (18 sources) Fall; Translations: [Unspecified fall, initial encounter] Onset: 05-07-2021 Episodic Fluid and electrolyte disorders (6 sources) Dehydration; Translations: [Dehydration] Onset: 07-18-2024 07-18-2024 Episodic Heart valve disorders (20 sources) Mitral valve prolapse; Translations: [Nonrheumatic mitral (valve) prolapse] Onset: 09-10-2015 Resolved: 07-18-2018 07-18-2018 Chronic Inflammation; infection of eye (except that caused by tuberculosis or sexually transmitteddisease) (1 source) Unspecified acute conjunctivitis, bilateral; Translations: [Acute conjunctivitis of both eyes, unspecified acute conjunctivitis type] Onset: 01-01-2024 Episodic Intestinal infection (20 sources) Viral gastroenteritis; Translations: [Infection caused by Norovirus] Onset: 08-06-2018 08-06-2018 Episodic Noninfectious gastroenteritis (4 sources) Chronic diarrhea; Translations: [Noninfective gastroenteritis and colitis, unspecified] Onset: 07-18-2024 07-18-2024 Episodic Other acquired deformities (7 sources) Lumbar spondylolisthesis; Translations: [Spondylolisthesis, lumbar region] Onset: 04-16-2024 04-16-2024 Episodic Other acquired deformities (1 source) Spondylolisthesis, lumbar region; Translations: [Spondylolisthesis, lumbar region] Onset: 04-16-2024 Episodic Other aftercare (20 sources) Long-term current use of drug therapy; Translations: [Other retirement (current) drug therapy] Onset: 09-18-2017 11-18-2018 Episodic Other aftercare (1 source) Encounter for follow-up examination after completed treatment for conditions other than malignant neoplasm; Translations: [Encounter for examination following treatment at hospital] Onset: 08-18-2024 Episodic Other bone disease and musculoskeletal deformities (20 sources) Osteopenia; Translations: [Other specified disorders of bone density and structure, multiple sites] Onset: 12-30-2018 05-07-2021 Episodic Other connective tissue disease (20 sources) Muscle pain; Translations: [Myalgia, unspecified site] Onset: 09-18-2017 05-07-2021 Episodic Other connective tissue disease (20 sources) Bursitis of right hip; Translations: [Other bursitis of hip, right hip] Onset: 06-20-2018 05-07-2021 Episodic Other connective tissue disease (1 source) Adhesive capsulitis of shoulder; Translations: [Adhesive capsulitis of right shoulder] Onset: 10-11-2020 10-11-2020 Episodic Other connective tissue disease (1 source) Disorder of rotator cuff; Translations: [Unspecified rotator cuff tear or rupture of right shoulder, not specified as traumatic] Onset: 10-11-2020 10-11-2020 Episodic Other connective tissue disease (20 sources) Bursitis of left hip; Translations: [Other bursitis of hip, left hip] Onset: 06-20-2018 06-28-2018 Episodic Other connective tissue disease (20 sources) Bursitis of hip; Translations: [Other bursitis of hip, unspecified hip] Onset: 05-23-2018 06-28-2018 Episodic Other connective tissue disease (20 sources) Triggering of digit; Translations: [Trigger finger, left middle finger] Onset: 07-26-2023 Episodic Other connective tissue disease (2 sources) Myalgia, unspecified site; Translations: [Myalgia, unspecified site] Onset: 03-24-2022 Episodic Other connective tissue disease (1 source) Repeated falls; Translations: [REPEATED FALLS] Onset: 09-01-2024 Episodic Other connective tissue disease (1 source) Pain in right leg; Translations: [PAIN IN RIGHT LEG] Onset: 05-14-2024 Episodic Other gastrointestinal disorders (16 sources) Diarrhea; Translations: [Diarrhea, unspecified] Onset: 04-21-2021 Episodic Other gastrointestinal disorders (20 sources) Incontinence of feces; Translations: [Full incontinence of feces] Onset: 01-25-2016 Resolved: 06-24-2018 06-24-2018 Episodic Other nervous system disorders (1 source) Unspecified abnormalities of gait and mobility; Translations: [UNS ABNORMALITIES GAIT AND MOBILITY] Onset: 05-14-2024 Episodic Other non-traumatic joint disorders (20 sources) Pain in right hip joint; Translations: [Pain in right hip] Onset: 11-13-2017 05-07-2021 Episodic Other non-traumatic joint disorders (20 sources) Hip pain; Translations: [Pain in left hip] Onset: 03-27-2018 06-28-2018 Episodic Other non-traumatic joint disorders (3 sources) Pain in left knee; Translations: [Pain in joint, lower leg] Onset: 02-01-2024 02-01-2024 Episodic Other non-traumatic joint disorders (1 source) Pain in unspecified hip; Translations: [PAIN IN UNSPECIFIED HIP] Onset: 01-24-2024 Episodic Other nutritional; endocrine; and metabolic disorders (3 sources) Loss of appetite; Translations: [Anorexia] Onset: 07-18-2024 07-18-2024 Episodic Other nutritional; endocrine; and metabolic disorders (1 source) Anorexia; Translations: [Anorexia] Onset: 07-18-2024 Episodic Pneumonia (except that caused by tuberculosis or sexually transmitted disease) (4 sources) Pneumonia; Translations: [Pneumonia, unspecified organism] Onset: 07-18-2024 07-18-2024 Episodic Residual codes; unclassified (1 source) Harmful pattern of use of nicotine; Translations: [Tobacco use] Onset: 09-20-2020 09-20-2020 Episodic Residual codes; unclassified (1 source) History of operative procedure on lumbar spinal structure; Translations: [Other specified postprocedural states] Onset: 08-10-2016 08-10-2016 Episodic Residual codes; unclassified (20 sources) Postprocedural state finding; Translations: [Other specified postprocedural states] Onset: 06-20-2018 06-20-2018 Episodic Residual codes; unclassified (1 source) Pain, unspecified; Translations: [PAIN UNSPECIFIED] Onset: 03-17-2024 Episodic Screening and history of mental health and substance abuse codes (20 sources) H/O: drug dependency; Translations: [Personal history of nicotine dependence] Onset: 09-18-2017 11-18-2018 Episodic Septicemia (except in labor) (6 sources) Sepsis; Translations: [Sepsis, unspecified organism] Onset: 07-18-2024 07-18-2024 Episodic Skin and subcutaneous tissue infections (20 sources) Abscess of finger; Translations: [Cutaneous abscess of right hand] Onset: 07-13-2022 07-13-2022 Episodic Spondylosis; intervertebral disc disorders; other back problems (20 sources) Low back pain; Translations: [Low back pain] Onset: 09-10-2015 05-07-2021 Episodic Unclassified (1 source) Problem Unclassified (3 sources) Postprocedural state finding 04-16-2024 Unclassified (1 source) Low back pain, unspecified; Translations: [Low back pain, unspecified] Onset: 07-18-2024 Results Test Name Value Interpretation Reference Range Facility Basic Metabolic Profile (BMP )on 12-31-2024 BUN Normal - [facility] Comment on above: Result Comment: Canc elled via OM: Order Changed Performed By: #### L [id number] #### [facility] [place], [address] BUN/CRE Normal - [facility] Comment on above: Result Comment: Canc elled via OM: Order Changed Performed By: #### L [id number] #### [facility] [address] [place], [address] Calcium Normal 7.6-11.0 [facility] Comment on above: Result Comment: Canc elled via OM: Order Changed Performed By: #### L [id number] #### [facility] [address] [place], [address] CL Normal 98-108 [facility] Comment on above: Result Comment: Canc elled via OM: Order Changed Performed By: #### L [id number] #### [facility] [address] [place], [address] CO2 Normal 21.0-32.0 [facility] Comment on above: Result Comment: Canc elled via OM: Order Changed Performed By: #### L [id number] #### [facility] [address] [place], [address] CREAT,SERUM Normal 0.70-1.20 [facility] Comment on above: Result Comment: Canc elled via OM: Order Changed Performed By: #### L [id number] #### [facility] [address] [place], [address] eGFR Normal >60 [facility] Comment on above: Result Comment: Canc elled via OM: Order Changed Performed By: #### L [id number] #### [facility] [address] [place], [address] GAP Normal 5-15 [facility] Comment on above: Result Comment: Canc elled via OM: Order Changed Performed By: #### L 500.2500 #### [facility] [address] [place], [address] GLU Normal 70-99 [facility] Comment on above: Result Comment: Canc elled via OM: Order Changed Performed By: #### L 500.2500 #### [facility] [address] [place], [address] Potassium Normal 3.3-5.1 [facility] Comment on above: Result Comment: Canc elled via OM: Order Changed Performed By: #### L 500.2500 #### [facility] [address] [place], [address] Basic Metabolic Profile (BMP) Normal 133-145 [facility] Comment on above: Result Comment: Canc elled via OM: Order Changed Performed By: #### L 500.2500 #### [facility] [address] [place], [address] BUN Normal 4-19 [facility] Comment on above: Result Comment: Canc elled via OM: Order Changed Performed By: #### L 500.2500 #### [facility] [address] [place], [address] BUN/CRE Normal 10-20 [facility] Comment on above: Result Comment: Canc elled via OM: Order Changed Performed By: #### L 500.2500 #### [facility] [address] [place], [address] Calcium Normal 7.6-11.0 [facility] Comment on above: Result Comment: Canc elled via OM: Order Changed Performed By: #### L 500.2500 #### [facility] [address] [place], [address] CL Normal 98-108 [facility] Comment on above: Result Comment: Canc elled via OM: Order Changed Performed By: #### L 500.2500 #### [facility] [address] [place], [address] CO2 Normal 21.0-32.0 [facility] Comment on above: Result Comment: Canc elled via OM: Order Changed Performed By: #### L 500.2500 #### [facility] [address] [place], [address] CREAT,SERUM Normal 0.70-1.20 [facility] Comment on above: Result Comment: Canc elled via OM: Order Changed Performed By: #### L 500.2500 #### [facility] [address] [place], [address] eGFR Normal >60 [facility] Comment on above: Result Comment: Canc elled via OM: Order Changed Performed By: #### L 500.2500 #### [facility] [address] [place], [address] GAP Normal 5-15 [facility] Comment on above: Result Comment: Canc elled via OM: Order Changed Performed By: #### L 500.2500 #### [facility] [address] [place], [address] GLU Normal 70-99 [facility] Comment on above: Result Comment: Canc elled via OM: Order Changed Performed By: #### L 500.2500 #### [facility] [address] [place], [address] Potassium Normal 3.3-5.1 [facility] Comment on above: Result Comment: Canc elled via OM: Order Changed Performed By: #### L 500.2500 #### [facility] [address] [place], [address] Basic Metabolic Profile (BMP) Normal 133-145 [facility] Comment on above: Result Comment: Canc elled via OM: Order Changed Performed By: #### L 500.2500 #### [facility] [address] [place], [address] Basic Metabolic Profile (BMP )on 12-24-2024 BUN Normal 4-19 [facility] Comment on above: Result Comment: Canc elled via OM: Order Changed Performed By: #### L 500.2500 #### [facility] [address] [place], [address] BUN/CRE Normal 10-20 [facility] Comment on above: Result Comment: Canc elled via OM: Order Changed Performed By: #### L 500.2500 #### [facility] [address] [place], [address] Calcium Normal 7.6-11.0 [facility] Comment on above: Result Comment: Canc elled via OM: Order Changed Performed By: #### L 500.2500 #### [facility] [address] [place], [address] CL Normal 98-108 [facility] Comment on above: Result Comment: Canc elled via OM: Order Changed Performed By: #### L 500.2500 #### [facility] [address] [place], [address] CO2 Normal 21.0-32.0 [facility] Comment on above: Result Comment: Canc elled via OM: Order Changed Performed By: #### L 500.2500 #### [facility] [address] [place], [address] CREAT,SERUM Normal 0.70-1.20 [facility] Comment on above: Result Comment: Canc elled via OM: Order Changed Performed By: #### L 500.2500 #### [facility] [address] [place], [address] eGFR Normal >60 [facility] Comment on above: Result Comment: Canc elled via OM: Order Changed Performed By: #### L 500.2500 #### [facility] [address] [place], [address] GAP Normal 5-15 [facility] Comment on above: Result Comment: Canc elled via OM: Order Changed Performed By: #### L 500.2500 #### [facility] [address] [place], [address] GLU Normal 70-99 [facility] Comment on above: Result Comment: Canc elled via OM: Order Changed Performed By: #### L 500.2500 #### [facility] [address] [place], [address] Potassium Normal 3.3-5.1 [facility] Comment on above: Result Comment: Canc elled via OM: Order Changed Performed By: #### L 500.2500 #### [facility] [address] [place], [address] Basic Metabolic Profile (BMP) Normal 133-145 [facility] Comment on above: Result Comment: Canc elled via OM: Order Changed Performed By: #### L 500.2500 #### [facility] [address] [place], [address] BUN Normal 4-19 [facility] Comment on above: Result Comment: Canc elled via OM: Order Changed Performed By: #### L 500.2500 #### [facility] [address] [place], [address] BUN/CRE Normal 10-20 [facility] Comment on above: Result Comment: Canc elled via OM: Order Changed Performed By: #### L 500.2500 #### [facility] [address] [place], [address] Calcium Normal 7.6-11.0 [facility] Comment on above: Result Comment: Canc elled via OM: Order Changed Performed By: #### L 500.2500 #### [facility] [address] [place], [address] CL Normal 98-108 [facility] Comment on above: Result Comment: Canc elled via OM: Order Changed Performed By: #### L 500.2500 #### [facility] [address] [place], [address] CO2 Normal 21.0-32.0 [facility] Comment on above: Result Comment: Canc elled via OM: Order Changed Performed By: #### L 500.2500 #### [facility] [address] [place], [address] CREAT,SERUM Normal 0.70-1.20 [facility] Comment on above: Result Comment: Canc elled via OM: Order Changed Performed By: #### L 500.2500 #### [facility] [address] [place], [address] eGFR Normal >60 [facility] Comment on above: Result Comment: Canc elled via OM: Order Changed Performed By: #### L 500.2500 #### [facility] [address] [place], [address] GAP Normal 5-15 [facility] Comment on above: Result Comment: Canc elled via OM: Order Changed Performed By: #### L 500.2500 #### [facility] [address] [place], [address] GLU Normal 70-99 [facility] Comment on above: Result Comment: Canc elled via OM: Order Changed Performed By: #### L 500.2500 #### [facility] [address] [place], [address] Potassium Normal 3.3-5.1 [facility] Comment on above: Result Comment: Canc elled via OM: Order Changed Performed By: #### L 500.2500 #### [facility] [address] [place], [address] Basic Metabolic Profile (BMP) Normal 133-145 [facility] Comment on above: Result Comment: Canc elled via OM: Order Changed Performed By: #### L 500.2500 #### [facility] [address] [place], [address] Basic Metabolic Profile (BMP )on 12-17-2024 BUN Normal 4-19 [facility] Comment on above: Result Comment: Canc elled via OM: Order Changed Performed By: #### L 500.2500 #### [facility] [address] [place], [address] BUN/CRE Normal 10-20 [facility] Comment on above: Result Comment: Canc elled via OM: Order Changed Performed By: #### L 500.2500 #### [facility] [address] [place], [address] Calcium Normal 7.6-11.0 [facility] Comment on above: Result Comment: Canc elled via OM: Order Changed Performed By: #### L 500.2500 #### [facility] [address] [place], [address] CL Normal 98-108 [facility] Comment on above: Result Comment: Canc elled via OM: Order Changed Performed By: #### L 500.2500 #### [facility] [address] [place], [address] CO2 Normal 21.0-32.0 [facility] Comment on above: Result Comment: Canc elled via OM: Order Changed Performed By: #### L 500.2500 #### [facility] [address] [place], [address] CREAT,SERUM Normal 0.70-1.20 [facility] Comment on above: Result Comment: Canc elled via OM: Order Changed Performed By: #### L 500.2500 #### [facility] [address] [place], [address] eGFR Normal >60 [facility] Comment on above: Result Comment: Canc elled via OM: Order Changed Performed By: #### L 500.2500 #### [facility] [address] [place], [address] GAP Normal 5-15 [facility] Comment on above: Result Comment: Canc elled via OM: Order Changed Performed By: #### L 500.2500 #### [facility] [address] [place], [address] GLU Normal 70-99 [facility] Comment on above: Result Comment: Canc elled via OM: Order Changed Performed By: #### L 500.2500 #### [facility] [address] [place], [address] Potassium Normal 3.3-5.1 [facility] Comment on above: Result Comment: Canc elled via OM: Order Changed Performed By: #### L 500.2500 #### [facility] [address] [place], [address] Basic Metabolic Profile (BMP) Normal 133-145 [facility] Comment on above: Result Comment: Canc elled via OM: Order Changed Performed By: #### L 500.2500 #### [facility] [address] [place], [address] BUN Normal 4-19 [facility] Comment on above: Result Comment: Canc elled via OM: Order Changed Performed By: #### L 500.2500 #### [facility] [address] [place], [address] BUN/CRE Normal 10-20 [facility] Comment on above: Result Comment: Canc elled via OM: Order Changed Performed By: #### L 500.2500 #### [facility] [address] [place], [address] Calcium Normal 7.6-11.0 [facility] Comment on above: Result Comment: Canc elled via OM: Order Changed Performed By: #### L 500.2500 #### [facility] [address] [place], [address] CL Normal 98-108 [facility] Comment on above: Result Comment: Canc elled via OM: Order Changed Performed By: #### L 500.2500 #### [facility] [address] [place], [address] CO2 Normal 21.0-32.0 [facility] Comment on above: Result Comment: Canc elled via OM: Order Changed Performed By: #### L 500.2500 #### [facility] [address] [place], [address] CREAT,SERUM Normal 0.70-1.20 [facility] Comment on above: Result Comment: Canc elled via OM: Order Changed Performed By: #### L 500.2500 #### [facility] [address] [place], [address] eGFR Normal >60 [facility] Comment on above: Result Comment: Canc elled via OM: Order Changed Performed By: #### L 500.2500 #### [facility] [address] [place], [address] GAP Normal 5-15 [facility] Comment on above: Result Comment: Canc elled via OM: Order Changed Performed By: #### L 500.2500 #### [facility] [address] [place], [address] GLU Normal 70-99 [facility] Comment on above: Result Comment: Canc elled via OM: Order Changed Performed By: #### L 500.2500 #### [facility] [address] [place], [address] Potassium Normal 3.3-5.1 [facility] Comment on above: Result Comment: Canc elled via OM: Order Changed Performed By: #### L 500.2500 #### [facility] [address] [place], [address] Basic Metabolic Profile (BMP) Normal 133-145 [facility] Comment on above: Result Comment: Canc elled via OM: Order Changed Performed By: #### L 500.2500 #### [facility] [address] [place], [address] Basic Metabolic Profile (BMP )on 12-10-2024 BUN Normal 4-19 [facility] Comment on above: Result Comment: Canc elled via OM: Order Changed Performed By: #### L [id number] #### [facility] [address] [place], [address] BUN/CRE Normal 10-20 [facility] Comment on above: Result Comment: Canc elled via OM: Order Changed Performed By: #### L 500.2500 #### [facility] [address] [place], [address] Calcium Normal 7.6-11.0 [facility] Comment on above: Result Comment: Canc elled via OM: Order Changed Performed By: #### L 500.2500 #### [facility] [address] [place], [address] CL Normal 98-108 [facility] Comment on above: Result Comment: Canc elled via OM: Order Changed Performed By: #### L 500.2500 #### [facility] [address] [place], [address] CO2 Normal 21.0-32.0 [facility] Comment on above: Result Comment: Canc elled via OM: Order Changed Performed By: #### L 500.2500 #### [facility] [address] [place], [address] CREAT,SERUM Normal 0.70-1.20 [facility] Comment on above: Result Comment: Canc elled via OM: Order Changed Performed By: #### L 500.2500 #### [facility] [address] [place], [address] eGFR Normal >60 [facility] Comment on above: Result Comment: Canc elled via OM: Order Changed Performed By: #### L 500.2500 #### [facility] [address] [place], [address] GAP Normal 5-15 [facility] Comment on above: Result Comment: Canc elled via OM: Order Changed Performed By: #### L 500.2500 #### [facility] [address] [place], [address] GLU Normal 70-99 [facility] Comment on above: Result Comment: Canc elled via OM: Order Changed Performed By: #### L 500.2500 #### [facility] [address] [place], [address] Potassium Normal 3.3-5.1 [facility] Comment on above: Result Comment: Canc elled via OM: Order Changed Performed By: #### L 500.2500 #### [facility] [address] [place], [address] Basic Metabolic Profile (BMP) Normal 133-145 [facility] Comment on above: Result Comment: Canc elled via OM: Order Changed Performed By: #### L 500.2500 #### [facility] [address] [place], [address] BUN Normal 4-19 [facility] Comment on above: Result Comment: Canc elled via OM: Order Changed Performed By: #### L 500.2500 #### [facility] [address] [place], [address] BUN/CRE Normal 10-20 [facility] Comment on above: Result Comment: Canc elled via OM: Order Changed Performed By: #### L 500.2500 #### [facility] [address] [place], [address] Calcium Normal 7.6-11.0 [facility] Comment on above: Result Comment: Canc elled via OM: Order Changed Performed By: #### L 500.2500 #### [facility] [address] [place], [address] CL Normal 98-108 [facility] Comment on above: Result Comment: Canc elled via OM: Order Changed Performed By: #### L 500.2500 #### [facility] [address] [place], [address] CO2 Normal 21.0-32.0 [facility] Comment on above: Result Comment: Canc elled via OM: Order Changed Performed By: #### L 500.2500 #### [facility] [address] [place], [address] CREAT,SERUM Normal 0.70-1.20 [facility] Comment on above: Result Comment: Canc elled via OM: Order Changed Performed By: #### L 500.2500 #### [facility] [address] [place], [address] eGFR Normal >60 [facility] Comment on above: Result Comment: Canc elled via OM: Order Changed Performed By: #### L 500.2500 #### [facility] [address] [place], [address] GAP Normal 5-15 [facility] Comment on above: Result Comment: Canc elled via OM: Order Changed Performed By: #### L 500.2500 #### [facility] [address] [place], [address] GLU Normal 70-99 [facility] Comment on above: Result Comment: Canc elled via OM: Order Changed Performed By: #### L 500.2500 #### [facility] [address] [place], [address] Potassium Normal 3.3-5.1 [facility] Comment on above: Result Comment: Canc elled via OM: Order Changed Performed By: #### L 500.2500 #### [facility] [address] [place], [address] Basic Metabolic Profile (BMP) Normal 133-145 [facility] Comment on above: Result Comment: Canc elled via OM: Order Changed Performed By: #### L 500.2500 #### [facility] [address] [place], [address] Abdomen Single Viewon 2024 Abdomen Single View [facility] [address] [place] [address] Abdomen Single View MR#: [id number] Acct: [id number] Name: KATHRYN TAMEZ I Rep #: [id number] : 1940 F 84 From: Caitlyn Rg nd, MD PCP: OUT OF [facility] DOCTOR Status: ADM IN Study: Abdomen Single View Date of Exam: 12/03/24 Exam# [id number] Ordering Dr: Ramana Tsai MD PROCEDURE: ABDOMEN SINGLE VIEW 12/03/2024 REASON FOR EXAM: POOR APPETITE, NAUSEA. TECHNIQUE: ABDOMEN SINGLE VIEW COMPARISON: None. FINDINGS: Hardware: Surgical clips along the left hemiabdomen. Prior posterior instrumentation and spinal fixation of the lumbar spine. Bladder stimulator with right flank battery pack. Bowel gas: Bowel gas pattern is normal. No evidence of bowel obstruction. Bones: There are degenerative changes of the spine. Bilateral hip arthrosis. RAD/Abdomen Single View IMPRESSION: NO ACUTE FINDINGS Reading Location: [facility] CC: Dr. Ramana Tsai MD Contamination Consultant: Signed Normal [facility] Basic Metabolic Profile (BMP )on 12-03-2024 BUN Normal 4-19 [facility] Comment on above: Result Comment: Canc elled via OM: Order Changed Performed By: #### L 500.2500 #### [facility] [address] [place] [place], [address] BUN/CRE Normal 10-20 [facility] Comment on above: Result Comment: Canc elled via OM: Order Changed Performed By: #### L 500.2500 #### [facility] [address] [place] [place], [address] Calcium Normal 7.6-11.0 [facility] Comment on above: Result Comment: Canc elled via OM: Order Changed Performed By: #### L 500.2500 #### [facility] [address] [place], [address] CL Normal 98-108 [facility] Comment on above: Result Comment: Canc elled via OM: Order Changed Performed By: #### L 500.2500 #### [facility] [address] [place], [address] CO2 Normal 21.0-32.0 [facility] Comment on above: Result Comment: Canc elled via OM: Order Changed Performed By: #### L 500.2500 #### [facility] [address] [place], [address] CREAT,SERUM Normal 0.70-1.20 [facility] Comment on above: Result Comment: Canc elled via OM: Order Changed Performed By: #### L 500.2500 #### [facility] [address] [place], [address] eGFR Normal >60 [facility] Comment on above: Result Comment: Canc elled via OM: Order Changed Performed By: #### L 500.2500 #### [facility] [address] [place], [address] GAP Normal 5-15 [facility] Comment on above: Result Comment: Canc elled via OM: Order Changed Performed By: #### L 500.2500 #### [facility] [address] [place], [address] GLU Normal 70-99 [facility] Comment on above: Result Comment: Canc elled via OM: Order Changed Performed By: #### L 500.2500 #### [facility] [address] [place], [address] Potassium Normal 3.3-5.1 [facility] Comment on above: Result Comment: Canc elled via OM: Order Changed Performed By: #### L 500.2500 #### [facility] [address] [place], [address] Basic Metabolic Profile (BMP) Normal 133-145 [facility] Comment on above: Result Comment: Canc elled via OM: Order Changed Performed By: #### L 500.2500 #### [facility] [address] [place], [address] BUN Normal 4-19 [facility] Comment on above: Result Comment: Canc elled via OM: Order Changed Performed By: #### L 500.2500 #### [facility] [address] [place], [address] BUN/CRE Normal 10-20 [facility] Comment on above: Result Comment: Canc elled via OM: Order Changed Performed By: #### L 500.2500 #### [facility] [address] [place], [address] Calcium Normal 7.6-11.0 [facility] Comment on above: Result Comment: Canc elled via OM: Order Changed Performed By: #### L 500.2500 #### [facility] [address] [place], [address] CL Normal 98-108 [facility] Comment on above: Result Comment: Canc elled via OM: Order Changed Performed By: #### L 500.2500 #### [facility] [address] [place], [address] CO2 Normal 21.0-32.0 [facility] Comment on above: Result Comment: Canc elled via OM: Order Changed Performed By: #### L 500.2500 #### [facility] [address] [place], [address] CREAT,SERUM Normal 0.70-1.20 [facility] Comment on above: Result Comment: Canc elled via OM: Order Changed Performed By: #### L 500.2500 #### [facility] [address] [place], [address] eGFR Normal >60 [facility] Comment on above: Result Comment: Canc elled via OM: Order Changed Performed By: #### L 500.2500 #### [facility] [address] [place], [address] GAP Normal 5-15 [facility] Comment on above: Result Comment: Canc elled via OM: Order Changed Performed By: #### L 500.2500 #### [facility] [address] [place], [address] GLU Normal 70-99 [facility] Comment on above: Result Comment: Canc elled via OM: Order Changed Performed By: #### L 500.2500 #### [facility] [address] [place], [address] Potassium Normal 3.3-5.1 [facility] Comment on above: Result Comment: Canc elled via OM: Order Changed Performed By: #### L 500.2500 #### [facility] [address] [place], [address] Basic Metabolic Profile (BMP) Normal 133-145 [facility] Comment on above: Result Comment: Canc elled via OM: Order Changed Performed By: #### L 500.2500 #### [facility] [address] [place], [address] [facility] KATHRYN TAMEZ I ([id number]) [address] [facility] Date Time Provider Department 12/03/24 LEONARDO LYLES During your visit today, we recorded the following information about you: Queenie Kirkpatrick 12/03/2024 1:46 PM Signed Cheri from [facility] called into the office and states that pt missed PT today due to being admitted into the hospital. Cheri states pt will most likely be discharged from Home Care and will have to resume once discharged from the hospital. Cheri can be reached at [phone] Queenieilan Kirkpatrick December 03, 2024 1:46 PM Leonardo Lyles, JESSICA[employer] 12/03/2024 3:31 PM Signed Noted. Leonardo Lyles APRN.MIKAEL Allergies As of Date: 12/03/2024 (No Known Allergies) Date Reviewed: 10/27/2024 Reviewed by: Kerrie Hoffmann MA - Fully Assessed Reason for Visit: Patient Update [1234] Cmt: PT update Prescriptions as of 12/03/2024 - levothyroxine (SYNTHROID) 88 mcg tablet Take 1 tablet by mouth once daily. - sertraline (ZOLOFT) 100 mg tablet Take 2 tablets by mouth once daily. - SUMAtriptan (IMITREX) 50 mg tablet Take 1 tablet by mouth as needed (at onset of headache. May repeat after 2 hours.). - gabapentin (NEURONTIN) 300 mg capsule Take 300 mg by mouth two times a day. 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] 01/25/2016 Frequency of urination [R35.0] 01/25/2016 06/24/2018 Fecal incontinence [R15.9] 01/25/2016 06/24/2018 Mixed incontinence [N39.46] 01/25/2016 Urgency of urination [R39.15] 01/25/2016 Stress incontinence in female [N39.3] 01/25/2016 Urge incontinence of urine [N39.41] 01/25/2016 Chronic pain disorder [G89.4] 09/18/2017 Low back pain [M54.50] 09/18/2017 Lumbar radiculopathy [M54.16] 06/20/2018 Myalgia [M79.10] 09/18/2017 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 therapy [Z79.899]09/18/2017 Other chronic pain [G89.29] 07/22/2017 Personal history of nicotine dependence [Z87.89*09/18/2017 Postprocedural state [Z98.890] 06/20/2018 Radiculopathy, lumbar region [M54.16] 09/18/2017 Feeling of incomplete bladder emptying [R39.14] 11/13/2017 Other bursitis of hip, left hip [M70.72] 06/20/2018 Other bursitis of hip, right hip [M70.71] 06/20/2018 Other bursitis of hip, unspecified hip [M70.70] 05/23/2018 Pain in left hip [M25.552] 03/27/2018 Pain in right hip [M25.551] 03/27/2018 Postlaminectomy syndrome, not elsewhere classif*01/24/2018 Radiculopathy, lumbosacral region [M54.17] 05/23/2018 Gastro-esophageal reflux disease without esopha*10/22/2018 Major depressive disorder, single episode, unsp*10/22/2018 Thyrotoxicosis, unspecified without thyrotoxic *10/22/2018 Gastroenteritis and colitis, viral [A08.4] 08/06/2018 Infection due to Norovirus species [A08.11] 08/06/2018 Vitamin D deficiency [E55.9] 08/06/2018 Severe malnutrition (HCC) [E43] 08/06/2018 Osteopenia of multiple sites [M85.89] 12/30/2018 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] 12/30/2018 Adjustment disorder with mixed anxiety and depr*02/02/2020 Abscess of right middle finger [L02.511] 07/13/2022 Preop examination [Z01.818] 07/26/2023 Trigger ring finger of right hand [M65.341] 07/26/2023 Trigger little finger of right hand [M65.351] 07/26/2023 Hypothyroidism [E03.9] 07/26/2023 Encounter Status:Closed by QUEENIE KIRKPATRICK on 12/03/24 Normal [facility] Basic Metabolic Profile (BMP )on 12-02-2024 BUN Normal 4-19 [facility] Comment on above: Result Comment: [facility]PLICATE ORDER. Performed By: #### L 500.2500 #### [facility] [address] [place], [address] BUN/CRE Normal 10-20 [facility] Comment on above: Result Comment: [facility] SAID IT WAS DUPLICATE ORDER. Performed By: #### L 500.2500 #### [facility] [address] [place], [address] Calcium Normal 7.6-11.0 [facility] Comment on above: Result Comment: [facility] SA[facility] IT WAS DUPLICATE ORDER. Performed By: #### L 500.2500 #### [facility] [address] [place], [address] CL Normal 98-108 [facility] Comment on above: Result Comment: [facility] SAID IT WAS DUPLICATE ORDER. Performed By: #### L 500.2500 #### [facility] [address] [place], [address] CO2 Normal 21.0-32.0 [facility] Comment on above: Result Comment: [facility] SAID IT WAS DUPLICATE ORDER. Performed By: #### L 500.2500 #### [facility] [address] [place], [address] CREAT,SERUM Normal 0.70-1.20 [facility] Comment on above: Result Comment: @[facility] MOLLY SAID IT WAS DUPLICATE ORDER. Performed By: #### L 500.2500 #### [facility] [address] [place], [address] eGFR Normal >60 [facility] Comment on above: Result Comment: @[facility] SAID IT WAS DUPLICATE ORDER. Performed By: #### L 500.2500 #### [facility] [address] [place], [address] GAP Normal 5-15 [facility] Comment on above: Result Comment: [facility] SAID IT WAS DUPLICATE ORDER. Performed By: #### L 500.2500 #### [facility] [address] [place], [address] GLU Normal 70-99 [facility] Comment on above: Result Comment: [facility] SAID IT WAS DUPLICATE ORDER. Performed By: #### L 500.2500 #### [facility] [address] [place], [address] Potassium Normal 3.3-5.1 [facility] Comment on above: Result Comment: [facility] SAID IT WAS DUPLICATE ORDER. Performed By: #### L 500.2500 #### [facility] [address] [place], [address] Basic Metabolic Profile (BMP) Normal 133-145 [facility] Comment on above: Result Comment: [facility] SAID IT WAS DUPLICATE ORDER. Performed By: #### L 500.2500 #### [facility] [address] [place], [address] BUN/CRE 24.6 RATIO High 10-20 [facility] Comment on above: Performed By: #### L 100.0100, L500.2500 #### [facility] [address] [place], [address] Calcium [Mass/Vol] 8.7 mg/dL Normal 7.6-11.0 [facility] Comment on above: Performed By: #### L 100.0100, L500.2500 #### [facility] [address] [place], [address] Chloride [Moles/Vol] 104 mmol/L Normal 98-108 [facility] Comment on above: Performed By: #### L 100.0100, L500.2500 #### [facility] [address] [place], [address] CO2 [Moles/Vol] 26.6 mmol/L Normal 21.0-32.0 [facility] Comment on above: Performed By: #### L 100.0100, L500.2500 #### [facility] [address] [place], [address] Creatinine [Mass/Vol] 0.85 mg/dL Normal 0.70-1.20 [facility] Comment on above: Performed By: #### L 100.0100, L500.2500 #### [facility] [address] [place], [address] ECRCL 35.39 ml/min Low 50-250 [facility] Comment on above: Performed By: #### L 100.0100, L500.2500 #### [facility] [address] [place], [address] GAP 12 Normal 5-15 [facility] Comment on above: Performed By: #### L 100.0100, L500.2500 #### [facility] [address] [place], [address] GFR/1.73 sq M.predicted among non-blacks MDRD (S/P/Bld) [Vol rate/Area] 68 mL/min/{1.73_m2} Normal >60 [facility] Comment on above: Result Comment: mL/m in/1.73m2 CKD-EPI Creatinine Equation (2020) Performed By: #### L 100.0100, L500.2500 #### [facility] [address] [place], [address] Glucose [Mass/Vol] 98 mg/dL Normal 70-99 [facility] Comment on above: Performed By: #### L 100.0100, L500.2500 #### [facility] [address] [place], [address] Potassium [Moles/Vol] 3.6 mmol/L Normal 3.3-5.1 [facility] Comment on above: Performed By: #### L 100.0100, L500.2500 #### [facility] [address] [place], [address] Sodium [Moles/Vol] 142 mmol/L Normal 133-145 [facility] Comment on above: Performed By: #### L 100.0100, L500.2500 #### [facility] [address] [place], [address] Urea nitrogen [Mass/Vol] 21 mg/dL High 4-19 [facility] Comment on above: Performed By: #### L 100.0100, L500.2500 #### [facility] [address] [place], [address] CBC W/Diff, Automatedon 06-2 -2024 Absolute Lymph 2.30 X10 3/uL Normal 0.83-4.51 [facility] Comment on above: Performed By: #### L 100.0100, L500.2500 #### [facility] [address] [place], [address] Absolute Neut 4.6 X10 3/uL Normal 2.0-7.7 [facility] Comment on above: Performed By: #### L 100.0100, L500.2500 #### [facility] [address] [place], [address] Basophils/100 WBC (Bld) 0.4 % Normal 0-1 [facility] Comment on above: Performed By: #### L 100.0100, L500.2500 #### [facility] [address] [place], [address] Eosinophils/100 WBC (Bld) 0.0 % Normal 0-5 [facility] Comment on above: Performed By: #### L 100.0100, L500.2500 #### [facility] [address] [place], [address] Erythrocyte distribution width (RBC) [Ratio] 14.6 % Normal 11.6-14.6 [facility] Comment on above: Performed By: #### L 100.0100, L500.2500 #### [facility] [address] [place], [address] Hematocrit (Bld) [Volume fraction] 28.5 % Low 37-47 [facility] Comment on above: Performed By: #### L 100.0100, L500.2500 #### [facility] [address] [place], [address] Hemoglobin (Bld) [Mass/Vol] 8.9 g/dL Low 12.0-15.0 [facility] Comment on above: Performed By: #### L 100.0100, L500.2500 #### [facility] [address] [place], [address] IG% 1.600 High 0.0-0.9 [facility] Comment on above: Result Comment: IG% - Immature Granulocytes (promyelocytes, myelocytes and metamyelocytes) > 1% indicates that a LEFT SHIFT is Present. Performed By: #### L 100.0100, L500.2500 #### [facility] [address] [place], [address] Lymphocytes/100 WBC (Bld) 25.1 % Normal 19-41 [facility] Comment on above: Performed By: #### L 100.0100, L500.2500 #### [facility] [address] [place], [address] MCH (RBC) [Entitic mass] 27.3 pg Normal 27.0-32.0 [facility] Comment on above: Performed By: #### L 100.0100, L500.2500 #### [facility] [address] [place], [address] MCHC (RBC) [Mass/Vol] 31.2 g/dL Low 32-36 [facility] Comment on above: Performed By: #### L 100.0100, L500.2500 #### [facility] [address] [place], [address] MCV (RBC) [Entitic vol] 87.4 fL Normal 81-99 [facility] Comment on above: Performed By: #### L 100.0100, L500.2500 #### [facility] [address] [place], [address] Monocytes/100 WBC (Bld) 22.2 % High 0-10 [facility] Comment on above: Performed By: #### L 100.0100, L500.2500 #### [facility] [address] [place], [address] Neutrophils/100 WBC (Bld) 50.7 % Normal 47-70 [facility] Comment on above: Performed By: #### L 100.0100, L500.2500 #### [facility] [address] [place], [address] Nucleated RBC (Bld) [#/Vol] 0 10*3/uL Normal 0-5 [facility] Comment on above: Performed By: #### L 100.0100, L500.2500 #### [facility] [address] [place], [address] Platelet mean volume (Bld) [Entitic vol] 11.1 fL Normal 6.2-12.0 [facility] Comment on above: Performed By: #### L 100.0100, L500.2500 #### [facility] [address] [place], [address] Platelets (Bld) [#/Vol] 310 10*3/uL Normal 150-450 [facility] Comment on above: Performed By: #### L 100.0100, L500.2500 #### [facility] [address] [place], [address] RBC (Bld) [#/Vol] 3.26 10*6/uL Low 4.2-5.4 [facility] Comment on above: Performed By: #### L 100.0100, L500.2500 #### [facility] [address] [place], [address] RDW SD 46.9 fl High 35.1-43.9 [facility] Comment on above: Performed By: #### L 100.0100, L500.2500 #### [facility] [address] [place], [address] WBC (Bld) [#/Vol] 9.2 10*3/uL Normal 4.4-11.0 [facility] Comment on above: Performed By: #### L 100.0100, L500.2500 #### [facility] [address] [place], [address] Thyroid Stim Hormone (TSH)on 12-02-2024 TSH 3.710 uIU/mL Normal 0.300-4.20 0 [facility] Comment on above: Performed By: #### L 501.9520 #### [facility] [address] [place], [address] Absolute lymphocyte countOrd ered By: Iván Larkin on 12-01-2024 Lymphocytes Auto (Unsp spec) [#/Vol] 1.92 10*3/uL 0.83-4.51 [facility] Absolute neutrophil countOrd ered By: Iván Larkin on 12-01-2024 Neutrophils (Bld) [#/Vol] 6.6 10*3/uL 2.0-7.7 [facility] Anion gap in Serum or Plasma Ordered By: Iván Larkin on 12-01-2024 Anion gap [Moles/Vol] 12 mmol/L 5-15 [facility] Automated lymphocyte count a s percentage of total leukocytesOrdered By: Iván Larkin on 12-01-2024 Lymphocytes/100 WBC Auto (Unsp spec) 17.7 % Low 19-41 [facility] BUN/creatinine ratioOrdered By: Iván Larkin on 12-01-2024 Urea nitrogen/Creatinine [Mass ratio] 20.4 mg/mg High 10-20 [facility] Basic Metabolic Profile (BMP )on 12-01-2024 BUN/CRE 20.4 RATIO High 10-20 [facility] Comment on above: Performed By: #### L 500.2500, L100.0100 #### [facility] [facility] [address] [place], [address] Calcium [Mass/Vol] 8.6 mg/dL Normal 7.6-11.0 [facility] Comment on above: Performed By: #### L 500.2500, L100.0100 #### [facility] [address] [place], [address] Chloride [Moles/Vol] 103 mmol/L Normal 98-108 [facility] Comment on above: Performed By: #### L 500.2500, L100.0100 #### [facility] [address] [place], [address] CO2 [Moles/Vol] 27.7 mmol/L Normal 21.0-32.0 [facility] Comment on above: Performed By: #### L 500.2500, L100.0100 #### [facility] [address] [place], [address] Creatinine [Mass/Vol] 1.04 mg/dL Normal 0.70-1.20 [facility] Comment on above: Performed By: #### L 500.2500, L100.0100 #### [facility] [address] [place], [address] ECRCL 28.92 ml/min Low 50-250 [facility] Comment on above: Performed By: #### L 500.2500, L100.0100 #### [facility] [address] [place], [address] GAP 12 Normal 5-15 [facility] Comment on above: Performed By: #### L 500.2500, L100.0100 #### [facility] [address] [place], [address] GFR/1.73 sq M.predicted among non-blacks MDRD (S/P/Bld) [Vol rate/Area] 53 mL/min/{1.73_m2} Low >60 [facility] Comment on above: Result Comment: mL/m in/1.73m2 CKD-EPI Creatinine Equation (2020) Performed By: #### L 500.2500, L100.0100 #### [facility] [address] [place], [address] Glucose [Mass/Vol] 108 mg/dL High 70-99 [facility] Comment on above: Performed By: #### L 500.2500, L100.0100 #### [facility] [address] [place], [address] Potassium [Moles/Vol] 3.9 mmol/L Normal 3.3-5.1 [facility] Comment on above: Performed By: #### L 500.2500, L100.0100 #### [facility] [address] [place], [address] Sodium [Moles/Vol] 142 mmol/L Normal 133-145 [facility] Comment on above: Performed By: #### L 500.2500, L100.0100 #### [facility] [address] [place], [address] Urea nitrogen [Mass/Vol] 21 mg/dL High 4-19 [facility] Comment on above: Performed By: #### L 500.2500, L100.0100 #### [facility] [address] [place], [address] Basophil percentageOrdered B y: Iván Larkin on 12-01-2024 Basophils/100 WBC (Bld) 0.3 % 0-1 [facility] CBC W/Diff, Automatedon 06- PLT EST A Normal ADEQ [facility] Comment on above: Performed By: #### L 500.2500, L100.0100 #### [facility] [address] [place] [place], [address] [facility] [facility] Telephone ([employer]) KATHRYN TAMEZ I ([id number]) 1940 F [facility] Date Time Provider Department 12/01/24 LEONARDO LYLES [facility] During your visit today, we recorded the following information about you: Queenie Kirkpatrick 12/01/2024 8:49 AM Signed Varun from [facility] called to update on pt. Varun states that he met with pt and daughter and did an evaluation on pt. Varun states that he discussed a passport program with pt and daughter which could provide terminal supervisor assistance at home for pt. Pt and daughter were agreeable to the program. Varun states he made a referral for pt for the program and should her something back in a week or so. Any questions, varun can be reached at [phone] Queenie Kirkpatrick December 01, 2024 8:49 AM Leonardo Lyles APRN.CNP 12/01/2024 1:26 PM Signed Noted. Leonardo Lyles APRN.CNP Allergies As of Date: 12/01/2024 (No Known Allergies) Date Reviewed: 10/27/2024 Reviewed by: Kerrie Hoffmann MA - Fully Assessed Reason for Visit: Patient Update [1234] Cmt: update Prescriptions as of 12/01/2024 - levothyroxine (SYNTHROID) 88 mcg tablet Take 1 tablet by mouth once daily. - sertraline (ZOLOFT) 100 mg tablet Take 2 tablets by mouth once daily. - SUMAtriptan (IMITREX) 50 mg tablet Take 1 tablet by mouth as needed (at onset of headache. May repeat after 2 hours.). - gabapentin (NEURONTIN) 300 mg capsule Take 300 mg by mouth two times a day. 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] 01/25/2016 Frequency of urination [R35.0] 01/25/2016 06/24/2018 Fecal incontinence [R15.9] 01/25/2016 06/24/2018 Mixed incontinence [N39.46] 01/25/2016 Urgency of urination [R39.15] 01/25/2016 Stress incontinence in female [N39.3] 01/25/2016 Urge incontinence of urine [N39.41] 01/25/2016 Chronic pain disorder [G89.4] 09/18/2017 Low back pain [M54.50] 09/18/2017 Lumbar radiculopathy [M54.16] 06/20/2018 Myalgia [M79.10] 09/18/2017 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 therapy [Z79.899]09/18/2017 Other chronic pain [G89.29] 07/22/2017 Personal history of nicotine dependence [Z87.89*09/18/2017 Postprocedural state [Z98.890] 06/20/2018 Radiculopathy, lumbar region [M54.16] 09/18/2017 Feeling of incomplete bladder emptying [R39.14] 11/13/2017 Other bursitis of hip, left hip [M70.72] 06/20/2018 Other bursitis of hip, right hip [M70.71] 06/20/2018 Other bursitis of hip, unspecified hip [M70.70] 05/23/2018 Pain in left hip [M25.552] 03/27/2018 Pain in right hip [M25.551] 03/27/2018 Postlaminectomy syndrome, not elsewhere classif*01/24/2018 Radiculopathy, lumbosacral region [M54.17] 05/23/2018 Gastro-esophageal reflux disease without esopha*10/22/2018 Major depressive disorder, single episode, unsp*10/22/2018 Thyrotoxicosis, unspecified without thyrotoxic *10/22/2018 Gastroenteritis and colitis, viral [A08.4] 08/06/2018 Infection due to Norovirus species [A08.11] 08/06/2018 Vitamin D deficiency [E55.9] 08/06/2018 Severe malnutrition (HCC) [E43] 08/06/2018 Osteopenia of multiple sites [M85.89] 12/30/2018 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] 12/30/2018 Adjustment disorder with mixed anxiety and depr*02/02/2020 Abscess of right middle finger [L02.511] 07/13/2022 Preop examination [Z01.818] 07/26/2023 Trigger ring finger of right hand [M65.341] 07/26/2023 Trigger little finger of right hand [M65.351] 07/26/2023 Hypothyroidism [E03.9] 07/26/2023 Encounter Status:Closed by QUEENIE KIRKPATRICK on 12/01/24 Normal [facility] Carbon dioxide, total [Moles /volume] in Central venous bloodOrdered By: Iván Larkin on 12-01-2024 CO2 [Moles/Vol] 27.7 mmol/L 21.0-32.0 [facility] Chloride assayOrdered By: Pedro Larkin on 12-01-2024 Chloride [Moles/Vol] 103 mmol/L 98-108 [facility] Eosinophil percentageOrdered By: Iván Larkin on 12-01-2024 Eosinophils/100 WBC (Bld) 0.2 % 0-5 [facility] Erythrocyte distribution wid th ratioOrdered By: Iván Larkin on 12-01-2024 Erythrocyte distribution width (RBC) [Ratio] 14.7 % High 11.6-14.6 [facility] Erythrocyte distribution wid th standard deviationOrdered By: Iván Larkin on 12-01-2024 Erythrocyte distribution width (RBC) [Ratio] 47.7 fl High 35.1-43.9 [facility] Glomerular filtration rate ( GFR) estimation/1.73 sq m using serum, plasma, or whole bOrdered By: Iván Larkin on 12-01-2024 GFR/1.73 sq M.predicted among non-blacks MDRD (S/P/Bld) [Vol rate/Area] 53 mL/min/{1.73_m2} Low >60 [facility] Comment on above: mL/min/1.73m2 CKD-EP I Creatinine Equation (2020) Hematocrit Auto (Bld) [Volum e fraction]Ordered By: Iván Larkin on 12-01-2024 Hematocrit (Bld) [Volume fraction] 29.5 % Low 37-47 [facility] Hemoglobin measurementOrdere d By: Iván Larkin on 12-01-2024 Hemoglobin (Bld) [Mass/Vol] 9.2 g/dL Low 12.0-15.0 [facility] Immature granulocytes/100 WB C Auto (Bld)Ordered By: Iván Larkin on 12-01-2024 Immature granulocytes/100 WBC (Bld) 1.300 % High 0.0-0.9 [facility] Comment on above: IG% - Immature Granu locytes (promyelocytes, myelocytes and metamyelocytes) > 1% indicates that a LEFT SHIFT is Present. MCV (mean corpuscular volume ) determinationOrdered By: Iván Larkin on 12-01-2024 MCV (RBC) [Entitic vol] 87.8 fL 81-99 [facility] Mean corpuscular hemoglobin (MCH) determinationOrdered By: Iván Larkin on 12-01-2024 MCH (RBC) [Entitic mass] 27.4 pg 27.0-32.0 [facility] Mean corpuscular hemoglobin concentration (MCHC) determinationOrdered By: Iván Larkin on 12-01-2024 MCHC (RBC) [Mass/Vol] 31.2 g/dL Low 32-36 [facility] Mean platelet volume determi nationOrdered By: Iván Larkin on 12-01-2024 Platelet mean volume (Bld) [Entitic vol] 10.7 fL 6.2-12.0 [facility] Monocyte percentageOrdered B y: Iván Larkin on 12-01-2024 Monocytes/100 WBC (Bld) 20.0 % High 0-10 [facility] Neutrophil percentageOrdered By: Iván Larkin on 12-01-2024 Neutrophils/100 WBC (Bld) 60.5 % 47-70 [facility] Nucleated red blood cell per centageOrdered By: Iván Larkin on 12-01-2024 Nucleated RBC/100 WBC (Bld) [Ratio] 0 % 0-5 [facility] Platelet countOrdered By: Pedro Larkin on 12-01-2024 Platelets (Bld) [#/Vol] 321 10*3/uL 150-450 [facility] Platelet estimateOrdered By: Iván Larkin on 12-01-2024 Platelets LM Ql (Bld) A ADEQ [facility] Potassium measurement (mass/ volume)Ordered By: Iván Larkin on 12-01-2024 Potassium (Unsp spec) [Mass/Vol] 3.9 mmol/L 3.3-5.1 [facility] RBC Auto (Bld) [#/Vol]Ordere d By: Iván Larkin on 12-01-2024 RBC (Bld) [#/Vol] 3.36 10*6/uL Low 4.2-5.4 [facility] Serum creatinine measurement (mass/volume)Ordered By: Iván Larkin on 12-01-2024 Creatinine [Mass/Vol] 1.04 mg/dL 0.70-1.20 [facility] Serum glucose measurement (m ass/volume)Ordered By: Iván Larkin on 12-01-2024 Glucose [Mass/Vol] 108 mg/dL High 70-99 [facility] Serum or plasma calcium larry urement (mass/volume)Ordered By: Iván Larkin on 12-01-2024 Calcium [Mass/Vol] 8.6 mg/dL 7.6-11.0 [facility] Serum or plasma urea nitroge n measurement (mass/volume)Ordered By: Iván Larkin on 12-01-2024 Urea nitrogen [Mass/Vol] 21 mg/dL High 4-19 [facility] Sodium levelOrdered By: Iván Larkin on 12-01-2024 Sodium [Moles/Vol] 142 mmol/L 133-145 [facility] White blood cell (WBC) count Ordered By: Iván Larkin on 12-01-2024 WBC (Bld) [#/Vol] 10.8 10*3/uL 4.4-11.0 [facility] Anion gap in Serum or Plasma Ordered By: Dorian Ballard on 11-30-2024 Anion gap [Moles/Vol] 11 mmol/L 5-15 [facility] BUN/creatinine ratioOrdered By: Dorian Ballard on 11-30-2024 Urea nitrogen/Creatinine [Mass ratio] 14.0 mg/mg 10- [facility] Basic Metabolic Profile (BMP )on 11-30-2024 BUN/CRE 14.0 RATIO Normal 03-30 [facility] Comment on above: Performed By: #### L 500.2500 #### [facility] [address] [place], [address] Calcium [Mass/Vol] 8.6 mg/dL Normal 7.6-11.0 [facility] Comment on above: Performed By: #### L 500.2500 #### [facility] [address] [place], [address] Chloride [Moles/Vol] 102 mmol/L Normal 98-108 [facility] Comment on above: Performed By: #### L 500.2500 #### [facility] [address] [place], [address] CO2 [Moles/Vol] 27.9 mmol/L Normal 21.0-32.0 [facility] Comment on above: Performed By: #### L 500.2500 #### [facility] [address] [place], [address] Creatinine [Mass/Vol] 0.74 mg/dL Normal 0.70-1.20 [facility] Comment on above: Performed By: #### L 500.2500 #### [facility] [address] [place], [address] ECRCL 37.60 ml/min Low 50-250 [facility] Comment on above: Performed By: #### L 500.2500 #### [facility] [address] [place], [address] GAP 11 Normal 5-15 [facility] Comment on above: Performed By: #### L 500.2500 #### [facility] [address] [place], [address] GFR/1.73 sq M.predicted among non-blacks MDRD (S/P/Bld) [Vol rate/Area] 80 mL/min/{1.73_m2} Normal >60 [facility] Comment on above: Result Comment: mL/m in/1.73m2 CKD-EPI Creatinine Equation (2020) Performed By: #### L 500.2500 #### [facility] [address] [place], [address] Glucose [Mass/Vol] 112 mg/dL High 70-99 [facility] Comment on above: Performed By: #### L 500.2500 #### [facility] [address] [place], [address] Potassium [Moles/Vol] 4.1 mmol/L Normal 3.3-5.1 [facility] Comment on above: Result Comment: Hemo lysis present, Results??could be affected. ?? Performed By: #### L 500.2500 #### [facility] [address] [place], [address] Sodium [Moles/Vol] 141 mmol/L Normal 133-145 [facility] Comment on above: Performed By: #### L 500.2500 #### [facility] [address] [place], [address] Urea nitrogen [Mass/Vol] 10 mg/dL Normal 4-19 [facility] Comment on above: Performed By: #### L 500.2500 #### [facility] [address] [place], [address] CBC-Complete Blood Cnt No Di ffon 11-30-2024 Erythrocyte distribution width (RBC) [Ratio] 14.6 % Normal 11.6-14.6 [facility] Comment on above: Performed By: #### L 500.2500 #### [facility] [address] [place], [address] Hematocrit (Bld) [Volume fraction] 28.3 % Low 37-47 [facility] Comment on above: Performed By: #### L 500.2500 #### [facility] [address] [place], [address] Hemoglobin (Bld) [Mass/Vol] 9.0 g/dL Low 12.0-15.0 [facility] Comment on above: Performed By: #### L 500.2500 #### [facility] [address] [place], [address] MCH (RBC) [Entitic mass] 27.2 pg Normal 27.0-32.0 [facility] Comment on above: Performed By: #### L 500.2500 #### [facility] [address] [place], [address] MCHC (RBC) [Mass/Vol] 31.8 g/dL Low 32-36 [facility] Comment on above: Performed By: #### L 500.2500 #### [facility] [address] [place], [address] MCV (RBC) [Entitic vol] 85.5 fL Normal 81-99 [facility] Comment on above: Performed By: #### L 500.2500 #### [facility] [address] [place], [address] Platelet mean volume (Bld) [Entitic vol] 10.4 fL Normal 6.2-12.0 [facility] Comment on above: Performed By: #### L 500.2500 #### [facility] [address] [place], [address] Platelets (Bld) [#/Vol] 334 10*3/uL Normal 150-450 [facility] Comment on above: Performed By: #### L 500.2500 #### [facility] [address] [place], [address] RBC (Bld) [#/Vol] 3.31 10*6/uL Low 4.2-5.4 [facility] Comment on above: Performed By: #### L 500.2500 #### [facility] [address] [place], [address] RDW SD 45.6 fl High 35.1-43.9 [facility] Comment on above: Performed By: #### L 500.2500 #### [facility] [address] [place], [address] WBC (Bld) [#/Vol] 12.4 10*3/uL High 4.4-11.0 [facility] Comment on above: Performed By: #### L 500.2500 #### [facility] [address] [place], [address] Carbon dioxide, total [Moles /volume] in Central venous bloodOrdered By: Dorian Ballard on 11-30-2024 CO2 [Moles/Vol] 27.9 mmol/L 21.0-32.0 [facility] Cerv Spine 4 or 5 Viewson Cerv Spine 4 or 5 Views [facility] [address] [place], [place] [address] Cerv Spine 4 or 5 Views MR#: [id number] Acct: [id number] Name: KATHRYN TAMEZ I Rep #: [id number] : 1940 F 84 From: Caitlyn Rg nd, MD PCP: OUT OF [facility] DOCTOR Status: REG ER Study: Cerv Spine 4 or 5 Views Date of Exam: 11/30/24 Exam# [id number] Ordering Dr: Dorian Ballard MD PROCEDURE: CERV SPINE 4 OR 5 VIEWS 11/30/2024 REASON FOR EXAM: NECK PAIN TECHNIQUE: CERV SPINE 4 OR 5 VIEWS COMPARISON: None. FINDINGS: Vertebrae: Severe osseous demineralization. Mild multilevel vertebral body height loss. Slight leftward offset of the dens of axis on the odontoid radiograph. The bilateral lateral atlantoaxial joints are grossly symmetric. Disc spaces: At least moderate multilevel degenerative disc disease. Alignment: No obvious traumatic listhesis. Soft tissues: Unremarkable. RAD/Cerv Spine 4 or 5 Views IMPRESSION: Moderate cervical degenerative changes. Slight leftward offset of the dens of the axis, likely due to patient positioning. If continued clinical concern, CT C-spine could be obtained for further evaluation. Reading Location: [id number] CC: Dr. Dorian Ballard MD Contamination Consultant: Signed Normal [facility] Chloride assayOrdered By: Jason Ballard on 11-30-2024 Chloride [Moles/Vol] 102 mmol/L 98-108 [facility] Emergency Department Summary on 11-30-2024 Emergency Department Summary [facility] Medical Records Department [address] [place] [address] Emergency Department Summary 11/30/24 MR#: [id number] Acct: [id number] Name: KATHRYN TAMEZ I Rep #: [id number] : 1940 84 From: Dorian Ballard MD PCP: OUT OF TOWN DOCTOR Status:REG ER Location: ED HPI History of Present Illness Chief Complaint: Back Detail of Chief Complaint: Atraumatic neck pain Informant: patient Onset/Context/Timing Onset: Days Context: Sudden Onset Timing: Continuous Quality: Sharp pain Location: Posterior neck Current Severity: Mild Maximum Severity: Severe Worsened by: Any type of movement Relieved by: Nothing Associated Symptoms Associated Symptoms: No radicular pain, no paresthesia, no weakness in her upper extremities Narrative Narrative: Patient is an 84-year-old woman. She presents from home by ambulance because of severe pain. Her daughter called the ambulance. She has taken [id number] medication and applied heat with no benefit. She denies direct or indirect trauma. She denies fall asleep on the sofa or chair. She denies radicular pain. She states she had some tingling in all her fingers yesterday. She did not have that before. She denies headache. She denies visual, ocular auditory symptoms. She denies cardiac or respiratory symptoms. She denies any new symptoms in her legs. She had fusion of the lumbar spine by Dr. El Jo at [facility]. She denies fever, chills night sweats. Denies weight gain or weight loss. She denies any recent dental procedures. Prior similar symptoms: No Recent Illness/Hospitalization: Yes PFSH PFSH Home Medications ???Medication ???Instructions ???Recorded ???Last Taken ???Type hydroxyzine HCl 10 mg tablet 10 mg PO QHS 11/30/24 Unknown Hist ory sertraline 100 mg tablet 200 mg PO DAILY 11/30/24 Unknown H istory sumatriptan succinate 50 mg tablet mg PO 11/30/24 Unknown History Allergy/AdvReac Type Severity Reaction Status Date / Time No Known Allergies Allergy Verified 11/30/24 10:25 Social History (Updated 11/30/24 @ 10:[address] Dorian Ballard MD) household members: family Smoking Status: Never smoker ROS ROS ED Constitutional Constitutional ED: Denies chills, fever(s), subjective, sweats or weight loss Eyes Eyes: Denies blurry vision or change in vision ENT ENT ED: Denies ear pain, rhinorrhea or sore throat Cardiovascular Cardiovascular: Denies chest pain, palpitations or racing heartbeat Respiratory/Chest Respiratory/Chest: Denies cough, dyspnea or dyspnea on exertion Gastrointestinal Gastrointestinal: Denies abdominal pain, nausea or vomiting Genitourinary Genitourinary ED: Denies dysuria, hematuria or urinary frequency Musculoskeletal Musculoskeletal: Reports neck pain; Denies arthralgias, back pain or myalgias Integumentary Denies rash Neurologic Neurologic: Denies paresthesias or weakness Hematologic/Lymphatic Hematologic/Lymphatic: Reports systems reviewed and no addt'l complaints, except as documented EXAM Physical Exam Const Vital Signs: 11/30/24 10:24 11/30/24 13:18 Temperature 98 F 98.1 F Temperature Source Temporal Pulse Rate 84 70 Respiratory Rate 14 14 Blood Pressure 135/61 H 113/66 Blood Pressure Mean 85 81 Pulse Ox 94 93 Oxygen Delivery Method Room Air Positive well nourished and well developed Constitutional Narrative: Patient appears uncomfortable. She is a thin woman. General Appearance ED: well developed; Negative for cyanotic, diaphoretic, NAD or pallor HEENT Reports moist mucous membranes HEENT Narrative: Head is atraumatic and normocephalic. Ears are normal. TMs normal. Nares are patent. Posterior pharynx is normal. trauma and tenderness Eyes PERRL and EOMs intact bilaterally General Eye ED: Negative for pale conjunctiva or scleral icterus Neck no lymphadenopathy, No supple and no JVD Neck Narrative: Patient has limited range of motion i.e. flexion, extension rotation right or left. She has predominantly Ilir lateral posterior cervical spine tenderness. There is no posterior cervical lymphadenopathy. There are no dermatologic lesions noted. Resp normal respiratory effort and clear to auscultation bilaterally Cardio regular rate, regular rhythm, S1 normal heart sound, S2 normal heart sound and no murmurs GI normal to inspection, nondistended, normoactive bowel sounds, non-tender, non-distended and no masses; Negative for hepatosplenomegaly Back/Spine Cervical Spine: cervical spine tenderness Cervical Spine Tenderness Details: C2, C3, C4, C5, C6 and C7 Thoracic Spine / Upper Back: Negative for thoracic spinal tenderness Lumbar Spine / Lower Back: Negative for lumbar spinal tenderness Extremity Extremity Narrative: Patient has significant surgical scar right knee. There i (more content not included)... Normal [facility] Erythrocyte distribution wid th ratioOrdered By: Dorian Ballard on 11-30-2024 Erythrocyte distribution width (RBC) [Ratio] 14.6 % 11.6-14.6 [facility] Erythrocyte distribution wid th standard deviationOrdered By: Dorian Daviso on 11-30-2024 Erythrocyte distribution width (RBC) [Ratio] 45.6 fl High 35.1-43.9 [facility] Glomerular filtration rate ( GFR) estimation/1.73 sq m using serum, plasma, or whole bOrdered By: Dorian Ballard on 11-30-2024 GFR/1.73 sq M.predicted among non-blacks MDRD (S/P/Bld) [Vol rate/Area] 80 mL/min/{1.73_m2} >60 [facility] Comment on above: mL/min/1.73m2 CKD-EP I Creatinine Equation (2020) H AND P Exam - [facility] 11-30-2024 H&P Exam - Hospitalist [facility] Medical Records Department [address] [place] [address] H P Exam - Hospitalist 11/30/24 1541 MR#: [id number] Acct: [id number] Name: KATHRYN TAMEZ I Rep #: [id number] : 1940 84 From: Iván Larkin DO PCP: OUT OF TOWN DOCTOR Status:ADM STEVAN Location: [place] [id number] HPI - General General Date of Admission: 11/30/24 Date of Service: 11/30/24 Chief Complaint: Weakness HPI Narrative KATHRYN TAMEZ, is a 84 F who presents with weakness. Approximate 3 weeks ago, patient underwent back surgery by Dr. Morrison at [facility]. Patient said that she was doing well and then became sick. And when she was sick she was not seen by therapy during then nor thereafter. And she is just progressively gotten weaker during this time. Addition over the past week she has had significant neck pain. She denies any falls or injury. But because the neck pain and weakness, she was seen in the emergency room here. She did have a CAT scan that showed questionable issue with the dens but was given patient had not fallen. But given that she was unable to ambulate safely, the hospital service was contacted for admission. [facility] Medical History Colitis due to Clostridioides difficile Pain in right hip Infection due to Norovirus species Vitamin D deficiency Severe malnutrition Gastroenteritis and colitis, viral Stress incontinence in female Bursitis of hip, right Postsurgical hypothyroidism Adjustment disorder with mixed anxiety and depressed mood Anxiety associated with depression Spinal stenosis of lumbar region Thyrotoxicosis Osteopenia of multiple sites Atrophy of vagina Major depressive disorder Low back pain Urgency of urination Myalgia Osteoporosis of lumbar spine Migraines Chronic GERD without esophagitis GERD (gastroesophageal reflux disease) Hysterectomy planned Colonoscopy planned Home Medications ???Medication ???Instructions ???Recorded ???Last Taken ???Type gabapentin 300 mg capsule 300 mg PO BID 11/30/24 11/29/24 Hi story hydroxyzine HCl 10 mg tablet 10 mg PO QHS 11/30/24 Unknown Hist ory levothyroxine 88 mcg tablet 88 mcg PO DAILY 11/30/24 11/30/24 History oxycodone 10 mg tablet 10 mg PO Q4H PRN pain 11/30/24 History sertraline 100 mg tablet 200 mg PO DAILY 11/30/24 11/29/24 History sumatriptan succinate 50 mg tablet 50 mg PO .COMPLEX 11/30/24 Unkno wn History Allergy/AdvReac Type Severity Reaction Status Date / Time No Known Allergies Allergy Verified 11/30/24 10:25 Surgical History History of arthroplasty of right ankle History of thyroidectomy, total History of nephrectomy, right History of total hip replacement Hx of esophagogastroduodenoscopy Hx of cholecystectomy History of back surgery Social History household members: family Smoking Status: Never smoker ROS ROS Narrative All review of systems were negative except as mentioned above in the history of present illness and the other review of systems. Vital Signs Vital Signs Vital Signs: 11/30/24 10:24 11/30/24 13:18 11/30/24 14:38 Temperature 36.6 C 36.7 C 36.8 C Temperature Source Temporal Oral Pulse Rate 84 70 75 Respiratory Rate 14 14 16 Respiratory Effort Respiratory Depth Respiratory Pattern Blood Pressure 135/61 H 113/66 107/57 L Blood Pressure Mean 85 81 73 Blood Pressure Source Monitor Blood Pressure Position Semi-Fowlers Blood Pressure Location Left Arm Pulse Ox 94 93 94 Oxygen Delivery Method Room Air Room Air 11/30/24 14:46 Temperature Temperature Source Pulse Rate Respiratory Rate Respiratory Effort Normal Non-Labored Respiratory Depth Normal Respiratory Pattern Normal Blood Pressure Blood Pressure Mean Blood Pressure Source Blood Pressure Position Blood Pressure Location Pulse Ox Oxygen Delivery Method Room Air Weight Weight: 53.5 kg Body Mass Index (BMI) 23.0 Physical Exam Const alert and no apparent distress HEENT normocephalic and head/scalp atraumatic Eyes Eyes Narrative: No icterus Neck Neck Narrative: Bilateral posterior cervical muscle tenderness with that being more prominent on the left than on the right. Resp normal respiratory effort, no retractions, no use of accessory muscles and clear to auscultation bilaterally Cardio regular rate, regular rhythm, S1 normal heart sound and S2 normal heart sound GI normal to inspection, nondistended, normoactive bowel sounds, soft to palpation, non-tender and non- distended Extremity normal to inspection and no clubbing, cyanosis or edema N (more content not included)... Normal [facility] Hematocrit Auto (Bld) [Volum e fraction]Ordered By: Dorian Ballard on 11-30-2024 Hematocrit (Bld) [Volume fraction] 28.3 % Low 37-47 [facility] Hemoglobin measurementOrdere d By: Dorian Ballard on 11-30-2024 Hemoglobin (Bld) [Mass/Vol] 9.0 g/dL Low 12.0-15.0 [facility] MCV (mean corpuscular volume ) determinationOrdered By: Dorian Ballard on 11-30-2024 MCV (RBC) [Entitic vol] 85.5 fL 81-99 [facility] Mean corpuscular hemoglobin (MCH) determinationOrdered By: Dorian Ballard on 11-30-2024 MCH (RBC) [Entitic mass] 27.2 pg 27.0-32.0 [facility] Mean corpuscular hemoglobin concentration (MCHC) determinationOrdered By: Dorian Ballard on 11-30-2024 MCHC (RBC) [Mass/Vol] 31.8 g/dL Low 32-36 [facility] Mean platelet volume determi nationOrdered By: Dorian Ballard on 11-30-2024 Platelet mean volume (Bld) [Entitic vol] 10.4 fL 6.2-12.0 [facility] Platelet countOrdered By: Jason Ballard on 11-30-2024 Platelets (Bld) [#/Vol] 334 10*3/uL 150-450 [facility] Potassium measurement (mass/ volume)Ordered By: Dorian Ballard on 11-30-2024 Potassium (Unsp spec) [Mass/Vol] 4.1 mmol/L 3.3-5.1 [facility] Comment on above: Hemolysis present, R esults could be affected. RBC Auto (Bld) [#/Vol]Ordere d By: Dorian Ballard on 11-30-2024 RBC (Bld) [#/Vol] 3.31 10*6/uL Low 4.2-5.4 [facility] Serum creatinine measurement (mass/volume)Ordered By: Dorian Ballard on 11-30-2024 Creatinine [Mass/Vol] 0.74 mg/dL 0.70-1.20 [facility] Serum glucose measurement (m ass/volume)Ordered By: Dorian Ballard on 11-30-2024 Glucose [Mass/Vol] 112 mg/dL High 70-99 [facility] Serum or plasma calcium larry urement (mass/volume)Ordered By: Dorian Ballard on 11-30-2024 Calcium [Mass/Vol] 8.6 mg/dL 7.6-11.0 [facility] Serum or plasma urea nitroge n measurement (mass/volume)Ordered By: Dorian Ballard on 11-30-2024 Urea nitrogen [Mass/Vol] 10 mg/dL 4-19 [facility] Sodium levelOrdered By: Dorian Ballard on 11-30-2024 Sodium [Moles/Vol] 141 mmol/L 133-145 [facility] White blood cell (WBC) count Ordered By: Dorian Ballard on 11-30-2024 WBC (Bld) [#/Vol] 12.4 10*3/uL High 4.4-11.0 [facility] CNPNon 11-25-2024 [facility] KATHRYN TAMEZ I ([id number]) [address] [facility] Date Time Provider Department 11/25/24 LEONARDO LYLES During your visit today, we recorded the following information about you: Dena Guy 11/25/2024 4:11 PM Signed Emma from [facility] ([phone]) [facility] stating that the pt's daughter is requesting orders for a home health aid to help the pt shower and dress. Emma states that is usually 1/2 times a week for 4 weeks. Emma also asked if she could also have an order for social work to see if there are any community resources for some retirement home health aids. Emma stated that she can take a verbal for those or they can be faxed to [phone]. Please advise. Dena Guy November 25, 2024 4:11 PM Leonardo Lyles APRN.[employer] 11/26/2024 2:49 PM Signed Please give verbal ok Leonardo Neves. JESSICA Lyles.Dena Morfin 11/26/2024 4:33 PM Signed Emma notified of verbal orders. Dena Guy November 26, 2024 4:33 PM Allergies As of Date: 11/25/2024 (No Known Allergies) Date Reviewed: 10/27/2024 Reviewed by: Kerrie Hoffmann MA - Fully Assessed Reason for Visit: Orders [681] Cmt: Home health aid and social work Prescriptions as of 11/26/2024 - levothyroxine (SYNTHROID) 88 mcg tablet Take 1 tablet by mouth once daily. - sertraline (ZOLOFT) 100 mg tablet Take 2 tablets by mouth once daily. - SUMAtriptan (IMITREX) 50 mg tablet Take 1 tablet by mouth as needed (at onset of headache. May repeat after 2 hours.). - gabapentin (NEURONTIN) 300 mg capsule Take 300 mg by mouth two times a day. Pain MGMT Problem List As Of Date 11/25/2024 Noted Resolved Spinal stenosis, lumbar region, without neuroge*09/10/2015 Anxiety associated with depression [F41.8] 09/10/2015 MVP (mitral valve prolapse) [I34.1] 09/10/2015 07/18/2018 Postsurgical hypothyroidism [E89.0] 09/10/2015 Migraines [G43.909] 09/10/2015 Urinary frequency [R35.0] 09/10/2015 06/24/2018 Spinal stenosis of lumbar region with neurogeni*09/24/2015 Atrophy of vagina [N95.2] 01/25/2016 Frequency of urination [R35.0] 01/25/2016 06/24/2018 Fecal incontinence [R15.9] 01/25/2016 06/24/2018 Mixed incontinence [N39.46] 01/25/2016 Urgency of urination [R39.15] 01/25/2016 Stress incontinence in female [N39.3] 01/25/2016 Urge incontinence of urine [N39.41] 01/25/2016 Chronic pain disorder [G89.4] 09/18/2017 Low back pain [M54.50] 09/18/2017 Lumbar radiculopathy [M54.16] 06/20/2018 Myalgia [M79.10] 09/18/2017 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 therapy [Z79.899]09/18/2017 Other chronic pain [G89.29] 07/22/2017 Personal history of nicotine dependence [Z87.89*09/18/2017 Postprocedural state [Z98.890] 06/20/2018 Radiculopathy, lumbar region [M54.16] 09/18/2017 Feeling of incomplete bladder emptying [R39.14] 11/13/2017 Other bursitis of hip, left hip [M70.72] 06/20/2018 Other bursitis of hip, right hip [M70.71] 06/20/2018 Other bursitis of hip, unspecified hip [M70.70] 05/23/2018 Pain in left hip [M25.552] 03/27/2018 Pain in right hip [M25.551] 03/27/2018 Postlaminectomy syndrome, not elsewhere classif*01/24/2018 Radiculopathy, lumbosacral region [M54.17] 05/23/2018 Gastro-esophageal reflux disease without esopha*10/22/2018 Major depressive disorder, single episode, unsp*10/22/2018 Thyrotoxicosis, unspecified without thyrotoxic *10/22/2018 Gastroenteritis and colitis, viral [A08.4] 08/06/2018 Infection due to Norovirus species [A08.11] 08/06/2018 Vitamin D deficiency [E55.9] 08/06/2018 Severe malnutrition (HCC) [E43] 08/06/2018 Osteopenia of multiple sites [M85.89] 12/30/2018 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] 12/30/2018 Adjustment disorder with mixed anxiety and depr*02/02/2020 Abscess of right middle finger [L02.511] 07/13/2022 Preop examination [Z01.818] 07/26/2023 Trigger ring finger of right hand [M65.341] 07/26/2023 Trigger little finger of right hand [M65.351] 07/26/2023 Hypothyroidism [E03.9] 07/26/2023 Encounter Status:Closed by DENA GUY on 11/25/24 [facility] 30on 11-18-2024 30 Normal [facility] [id number] 11-18-2024 [id number] HCL has tried brigido murray times today to reach both patient and daughter Hyun. Message left, awaiting response. PCP agreeable to follow for home care. [facility] [id number] 11-18-[id number] [facility] BASIC METABOLIC PANELon 11-09 Anion gap [Moles/Vol] 8 mmol/L Normal 3-13 [facility] Comment on above: Performed By: #### L [id number] ####Staff Field Engineer: LYDIA LION ([id number])[facility] ([address] Calcium [Mass/Vol] 8.3 mg/dL Low 8.8-10.0 [facility] Comment on above: Performed By: #### L AB15 ####Staff Field Engineer: LYDIA LION ([id number])[facility] ([facility])[address] [place] [address] Chloride [Moles/Vol] 107 mmol/L Normal 98-107 [facility] Comment on above: Performed By: #### L AB15 ####Staff Field Engineer: LYDIA LION ([id number])[facility] ([facility])[address] [place] [address] CO2 [Moles/Vol] 26 mmol/L Normal 23-31 [facility] Comment on above: Performed By: #### L AB15 ####Staff Field Engineer: LYDIA LION ([id number])[facility] ([facility])[address] [place] [address] Creatinine [Mass/Vol] 0.68 mg/dL Normal 0.57-1.11 [facility] Comment on above: Performed By: #### L AB15 ####Staff Field Engineer: LYDIA LION ([id number])[facility] ([facility])[address] [place] [address] GLOMERULAR FILTRATION RATE ML/MIN/1.73 SQ M.PREDICTED 86.0 mL/min/1.73m*2 Normal >60.0 [facility] Comment on above: Result Comment: Calc ulation based on the Chronic Kidney Disease Epidemiology Collaboration (CKD-EPI) equation refit without adjustment for race Performed By: #### L AB15 ####Staff Field Engineer: LYDIA LION ([id number])[facility] ([facility])[address] [place] [address] Glucose [Mass/Vol] 97 mg/dL Normal 82-115 [facility] Comment on above: Performed By: #### L AB15 ####Staff Field Engineer: LYDIA LION ([id number])[facility] ([facility])[address] [place] [address] Potassium [Moles/Vol] 4.3 mmol/L Normal 3.5-5.1 [facility] Comment on above: Result Comment: [facility] potassium values may be up to 0.5 mmol/L lower than serum values. Performed By: #### L AB15 ####Staff Field Engineer: LYDIA LION ([id number])[facility] ([facility])[address] [place] [address] Sodium [Moles/Vol] 141 mmol/L Normal 136-145 [facility] Comment on above: Performed By: #### L AB15 ####Staff Field Engineer: LYDIA LION ([id number])[facility] ([facility])[address] [place] [address] Urea nitrogen [Mass/Vol] 10 mg/dL Normal 9-23 [facility] Comment on above: Performed By: #### L AB15 ####Staff Field Engineer: LYDIA LION ([id number])[facility] ([facility])[address] [place] [address] Basic metabolic 1998 panelon 11-18-2024 Anion gap [Moles/Vol] 8 mmol/L 3 - 13 mmol/L [facility] Calcium [Mass/Vol] 8.3 mg/dL Low 8.8 - 10. 0 mg/dL [facility] Chloride [Moles/Vol] 107 mmol/L 98 - 10 7 mmol/L [facility] CO2 [Moles/Vol] 26 mmol/L 23 - 31 mmol/L [facility] Creatinine [Mass/Vol] 0.68 mg/dL 0.57 - 1.11 mg/dL [facility] GFR/1.73 sq M.predicted (S/P/Bld) [Vol rate/Area] 86 mL/min - PINF [facility] Comment on above: Calculation based on the Chronic Kidney Disease Epidemiology Collaboration (CKD-EPI) equation refit without adjustment for race Glucose [Mass/Vol] 97 mg/dL 82 - 115 mg/dL [facility] Interpretation and review of laboratory results Abnormal [facility] Potassium [Moles/Vol] 4.3 mmol/L 3.5 - 5.1 mmol/L [facility] Comment on above: Plasma potassium chandler ues may be up to 0.5 mmol/L lower than serum values. Sodium [Moles/Vol] 141 mmol/L 136 - 145 mmol/L [facility] Urea nitrogen [Mass/Vol] 10 mg/dL 9 - 23 mg/dL [facility] CBC W Auto Differential pane l (Bld)on 11-18-2024 Erythrocyte distribution width (RBC) [Ratio] 16.5 % High 11.5 - 15.0 % [facility] Hematocrit (Bld) [Volume fraction] 27.4 % Low 35.0 - 47.0 % [facility] Hemoglobin (Bld) [Mass/Vol] 8.7 g/dL Low 11.7 - 16.0 g/dL [facility] Interpretation and review of laboratory results Abnormal [facility] MCH (RBC) [Entitic mass] 27.4 pg 26.0 - 34.0 pg [facility] MCHC (RBC) [Mass/Vol] 31.8 % 30.5 - 36.0 % [facility] MCV (RBC) [Entitic vol] 86.4 fL 77.0 - 99.0 fL [facility] Platelet mean volume (Bld) [Entitic vol] 11.3 fL 9.0 - 12.7 fL [facility] Platelets (Bld) [#/Vol] 367 10*3/uL 140 - 440 10*3/uL [facility] RBC (Bld) [#/Vol] 3.17 10*6/uL Low 3.80 - 5.20 10*6/uL [facility] WBC (Bld) [#/Vol] 18.1 10*3/uL High 3.6 - 10.7 10*3/uL [facility] CBC WITH AUTO DIFFERENTIALon 11-18-2024 Erythrocyte distribution width (RBC) [Ratio] 16.5 % High 11.5-15.0 [facility] Comment on above: Performed By: #### L [id number], [id number] ####Staff Field Engineer: LYDIA LION ([id number])[address] Hematocrit (Bld) [Volume fraction] 27.4 % Low 35.0-47.0 [facility] Comment on above: Performed By: #### L [id number], [id number] ####Staff Field Engineer: LYDIA [id number])[facility] ([facility])[address] [place] [address] Hemoglobin (Bld) [Mass/Vol] 8.7 g/dL Low 11.7-16.0 [facility] Comment on above: Performed By: #### L [id number], [id number] ####Staff Field Engineer: LYDIA LION ([id number])[facility])[address] [place] [address] MCH (RBC) [Entitic mass] 27.4 pg Normal 26.0-34.0 [facility] Comment on above: Performed By: #### L [id number], [id number] ####Staff Field Engineer: LYDIA LION ([id number])[facility])[address] [place] [address] MCHC 31.8 % Normal 30.5-36.0 [facility] Comment on above: Performed By: #### L [id number], [id number] ####Staff Field Engineer: LYDIA LION ([id number])[facility] ([facility])[address] [place] [address] MCV (RBC) [Entitic vol] 86.4 fL Normal 77.0-99.0 [facility] Comment on above: Performed By: #### L [id number], [id number] ####Staff Field Engineer: LYDIA LION ([id number])[facility])[address] [place] [address] Platelet mean volume (Bld) [Entitic vol] 11.3 fL Normal 9.0-12.7 [facility] Comment on above: Performed By: #### L [id number], [id number] ####Staff Field Engineer: LYDIA LION ([id number])[address] Platelets (Bld) [#/Vol] 367 10*3/uL Normal 140-440 [facility] Comment on above: Performed By: #### L [id number], [id number] ####Staff Field Engineer: LYDIA LION ([id number])[facility])[address] [place] [address] RBC (Bld) [#/Vol] 3.17 10*6/uL Low 3.80-5.20 [facility] Comment on above: Performed By: #### L [id number], [id number] ####Staff Field Engineer: LYDIA LION ([id number])[facility])[address] [place] [address] WBC (Bld) [#/Vol] 18.1 10*3/uL High 3.6-10.7 [facility] Comment on above: Performed By: #### L [id number], [id number] ####Staff Field Engineer: LYDIA LION ([id number])[facility])[address] [place] [address] 11-18-2024 MIKAELN Telephone ([facility]) KATHRYN TAMEZ I ([id number]) 1940 [facility] Date Time Provider Department 11/18/24 LEONARDO LYLES During your visit today, we recorded the following information about you: Amee Otto, PSS 11/18/2024 2:46 PM Signed Anabell [facility] communication center coordinator calling asking if Leonardo will follow for home care. Please Advise. Amee Otto, PSS November 18, 2024 2:44 PM [phone] Leonardo Lyles APRN.[employer] 11/18/2024 2:49 PM Signed Yes I can Leonardo Neves. JESSICA Lyles.Dena Morfin 11/18/2024 3:33 PM Signed [facility] notified that Leonardo will follow. Spoke to a Anabell but she was not the right Anabell. The phone number provided was not correct. Dena Guy November 18, 2024 3:33 PM Allergies As of Date: 11/18/2024 (No Known Allergies) Date Reviewed: 10/27/2024 Reviewed by: Kerrie Hoffmann MA - Fully Assessed Reason for Visit: Orders [681] Prescriptions as of 11/18/2024 - levothyroxine (SYNTHROID) 88 mcg tablet Take 1 tablet by mouth once daily. - sertraline (ZOLOFT) 100 mg tablet Take 2 tablets by mouth once daily. - SUMAtriptan (IMITREX) 50 mg tablet Take 1 tablet by mouth as needed (at onset of headache. May repeat after 2 hours.). - gabapentin (NEURONTIN) 300 mg capsule Take 300 mg by mouth two times a day. 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] 01/25/2016 Frequency of urination [R35.0] 01/25/2016 06/24/2018 Fecal incontinence [R15.9] 01/25/2016 06/24/2018 Mixed incontinence [N39.46] 01/25/2016 Urgency of urination [R39.15] 01/25/2016 Stress incontinence in female [N39.3] 01/25/2016 Urge incontinence of urine [N39.41] 01/25/2016 Chronic pain disorder [G89.4] 09/18/2017 Low back pain [M54.50] 09/18/2017 Lumbar radiculopathy [M54.16] 06/20/2018 Myalgia [M79.10] 09/18/2017 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 therapy [Z79.899]09/18/2017 Other chronic pain [G89.29] 07/22/2017 Personal history of nicotine dependence [Z87.89*09/18/2017 Postprocedural state [Z98.890] 06/20/2018 Radiculopathy, lumbar region [M54.16] 09/18/2017 Feeling of incomplete bladder emptying [R39.14] 11/13/2017 Other bursitis of hip, left hip [M70.72] 06/20/2018 Other bursitis of hip, right hip [M70.71] 06/20/2018 Other bursitis of hip, unspecified hip [M70.70] 05/23/2018 Pain in left hip [M25.552] 03/27/2018 Pain in right hip [M25.551] 03/27/2018 Postlaminectomy syndrome, not elsewhere classif*01/24/2018 Radiculopathy, lumbosacral region [M54.17] 05/23/2018 Gastro-esophageal reflux disease without esopha*10/22/2018 Major depressive disorder, single episode, unsp*10/22/2018 Thyrotoxicosis, unspecified without thyrotoxic *10/22/2018 Gastroenteritis and colitis, viral [A08.4] 08/06/2018 Infection due to Norovirus species [A08.11] 08/06/2018 Vitamin D deficiency [E55.9] 08/06/2018 Severe malnutrition (HCC) [E43] 08/06/2018 Osteopenia of multiple sites [M85.89] 12/30/2018 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] 12/30/2018 Adjustment disorder with mixed anxiety and depr*02/02/2020 Abscess of right middle finger [L02.511] 07/13/2022 Preop examination [Z01.818] 07/26/2023 Trigger ring finger of right hand [M65.341] 07/26/2023 Trigger little finger of right hand [M65.351] 07/26/2023 Hypothyroidism [E03.9] 07/26/2023 Encounter Status:Closed by AMEE OTTO on 11/18/24 Normal [facility] Consulton 11-18-2024 Consult Normal [facility] Laboratory - Hematology and Cell countson 11-18-2024 Band form neutrophils (Bld) [#/Vol] 0.4 10*3/uL High NINF - 0.0 10*3/uL [facility] Band form neutrophils/100 WBC (Bld) 2 % High NINF - 0 % [facility] Lymphocytes (Bld) [#/Vol] 2 10*3/uL 1.0 - 4.3 10*3/uL [facility] Lymphocytes/100 WBC (Bld) 11 % Low 15 - 45 % [facility] Metamyelocytes (Bld) [#/Vol] 0.4 10*3/uL High NINF - 0.0 10*3/uL [facility] Metamyelocytes/100 WBC (Bld) 2 % High NINF - 0 % [facility] Monocytes (Bld) [#/Vol] 0.7 10*3/uL 0.0 - 0.9 10*3/uL [facility] Monocytes/100 WBC (Bld) 4 % Low 5 - 13 % [facility] Myelocytes (Bld) [#/Vol] 0.2 10*3/uL High NINF - 0.0 10*3/uL [facility] Myelocytes/100 WBC (Bld) 1 % High NINF - 0 % [facility] Neutrophils (Bld) [#/Vol] 14.8 10*3/uL High 1.8 - 7.5 10*3/uL [facility] Poikilocytosis LM Ql (Bld) Slight Abnormal (none) [facility] Polychromasia LM Ql (Bld) Slight Abnormal (none) [facility] RBC morphology finding Nom (Bld) abnormal [facility] Segmented neutrophils/100 WBC (Bld) 80 % 38 - 82 % [facility] Stomatocytes LM Ql (Bld) Slight Abnormal (none) [facility] Target cells LM Ql (Bld) Slight Abnormal (none) [facility] MANUAL DIFFERENTIAL (CELLAVI DAVON)on 11-18-2024 BAND NEUTROPHILS TOTAL PER COUNTED LEUKOCYTES BY MANUAL COUNT 2 Normal [facility] Comment on above: Performed By: #### L [id number], [id number] ####Staff Field Engineer: LYDIA LION ([id number])[address] BANDS (10*3/UL) IN BLOOD-CELLAVISION 0.4 10*3/uL High <=0.0 [facility] Comment on above: Performed By: #### L [id number], [id number] ####Staff Field Engineer: LYDIA LION ([id number])[facility] ([facility])[address] [place] [address] [place] BASOPHILS TOTAL PER COUNTED LEUKOCYTES BY MANUAL COUNT Normal [facility] Comment on above: Performed By: #### L [id number], [id number] ####Staff Field Engineer: LYDIA LION ([id number])[facility] ([facility])[address] [place] [address] [place] BLASTS TOTAL PER COUNTED LEUKOCYTES BY MANUAL COUNT [facility] Comment on above: Performed By: #### L [id number], [id number] ####Staff Field Engineer: LYDIA LION ([id number])[facility] ([facility])[address] [place] [address] EOSINOPHILS TOTAL PER COUNTED LEUKOCYTES BY MANUAL COUNT [facility] Comment on above: Performed By: #### L [id number], [id number] ####Staff Field Engineer: LYDIA LION ([id number])[facility] ([facility])[address] [place] [address] [place] LYMPHOCYTES (10*3/UL) IN BLOOD-CELLAVISION 2.0 10*3/uL Normal 1.0-4.3 [facility] Comment on above: Performed By: #### L [id number], [id number] ####Staff Field Engineer: LYDIA LION ([id number])[facility] ([facility])[address] [place] [address] [place] LYMPHOCYTES TOTAL PER COUNTED LEUKOCYTES BY MANUAL COUNT 11 Normal [facility] Comment on above: Performed By: #### L [id number], [id number] ####Staff Field Engineer: LYDIA LION ([id number])[facility])[address] [place] [address] [place] LYMPHOCYTES/100 LEUKOCYTES IN BLOOD-CELLAVISION 11 % Low 15-45 [facility] Comment on above: Performed By: #### L [id number], [id number] ####Staff Field Engineer: LYDIA [id number])[facility] ([facility])[address] [place] [address] [place] METAMYELOCYTES (10*3/UL) IN BLOOD-CELLAVISION 0.4 10*3/uL High <=0.0 [facility] Comment on above: Performed By: #### L [id number], [id number] ####Staff Field Engineer: LYDIA LION ([id number])[facility] ([facility])[address] [place] [address] [place] METAMYELOCYTES TOTAL PER COUNTED LEUKOCYTES BY MANUAL COUNT 2 Normal [facility] Comment on above: Performed By: #### L [id number], [id number] ####Staff Field Engineer: LYDIA LION ([id number])[facility] ([facility])[address] [place] [address] [place] METAMYELOCYTES/100 LEUKOCYTES IN BLOOD-CELLAVISION 2 % High <=0 [facility] Comment on above: Performed By: #### Naun [id number], [id number] ####Staff Field Engineer: LYDIA LION ([id number])[facility] ([facility])[address] [place] [address] [place] MONOCYTES (10*3/UL) IN BLOOD-CELLAVISION 0.7 10*3/uL Normal 0.0-0.9 [facility] Comment on above: Performed By: #### L [id number], [id number] ####Staff Field Engineer: LYDIA LION ([id number])[facility] ([facility])[address] [place] [address] [place] MONOCYTES TOTAL PER COUNTED LEUKOCYTES BY MANUAL COUNT 4 Normal [facility] Comment on above: Performed By: #### L [id number], [id number] ####Staff Field Engineer: LYDIA LION ([id number])[facility])[address] [place] [address] [place] MONOCYTES/100 LEUKOCYTES IN BLOOD-ELLEN 4 % Low 5-13 [facility] Comment on above: Performed By: #### L [id number], [id number] ####Staff Field Engineer: LYDIA [id number])[facility] ([facility])[address] [place] [address] [place] MYELOCYTES (10*3/UL) IN BLOOD-CELLAVISION 0.2 10*3/uL High <=0.0 [facility] Comment on above: Performed By: #### L [id number], [id number] ####Staff Field Engineer: LYDIA LION ([id number])[facility] ([facility])[address] [place] [address] [place] MYELOCYTES COUNTED BY MANUAL COUNT 1 Normal [facility] Comment on above: Performed By: #### L [id number], [id number] ####Staff Field Engineer: LYDIA LION ([id number])[facility] ([facility])[address] [place] [address] MYELOCYTES/100 LEUKOCYTES IN BLOOD-CELLAVISION 1 % High <=0 [facility] Comment on above: Performed By: #### Naun [id number], [id number] ####Staff Field Engineer: LYDIA LION ([id number])[facility] ([facility])[address] [place] [address] [place] NEUTROPHILS BAND FORM/100 LEUKOCYTES IN BLOOD-CELLAVISI 2 % High <=0 [facility] Comment on above: Performed By: #### L [id number], [id number] ####Staff Field Engineer: LYDIA LION ([id number])[facility] ([facility])[address] [place] [address] NEUTROPHILS TOTAL PER COUNTED LEUKOCYTES BY MANUAL COUNT 80 Normal [facility] Comment on above: Performed By: #### L [id number], [id number] ####Staff Field Engineer: LYDIA LION ([id number])[facility] ([facility])[address] [place] [address] [place] POIKILOCYTOSIS (PRESENCE) IN BLOOD BY LIGHT MICROSCOPY Slight Abnormal (none) [facility] Comment on above: Performed By: #### L [id number], [id number] ####Staff Field Engineer: LYDIA [id number])[facility] ([facility])[address] [place] [address] [place] POLYCHROMASIA IN BLOOD BY LIGHT MICROSCOPY Slight Abnormal (none) [facility] Comment on above: Performed By: #### L [id number], [id number] ####Staff Field Engineer: LYDIA LION ([id number])[facility] ([facility])[address] [place] [address] PROMYELOCYTES TOTAL PER COUNTED LEUKOCYTES BY MANUAL COUNT Normal [facility] Comment on above: Performed By: #### L [id number], [id number] ####Staff Field Engineer: LYDIA LION ([id number])[facility] ([facility])[address] [place] [address] RBC MORPHOLOGY IN BLOOD abnormal Normal [facility] Comment on above: Performed By: #### L [id number], [id number] ####Staff Field Engineer: LYDIA LION ([id number])[facility] ([facility])[address] [place] [address] SEGMENTED NEUTROPHILS (10*3/UL) IN BLOOD-CELLAVISION 14.8 10*3/uL High 1.8-7.5 [facility] Comment on above: Performed By: #### L [id number], [id number] ####Staff Field Engineer: LYDIA LION ([id number])[facility] ([facility])[address] [place] [address] SEGMENTED NEUTROPHILS/100 LEUKOCYTES-CE 80 % Normal 38-82 [facility] Comment on above: Performed By: #### L [id number], [id number] ####Staff Field Engineer: LYDIA LION ([id number])[facility] ([facility])[address] [place] [address] [place] STOMATOCYTES IN BLOOD BY LIGHT MICROSCOPY Slight Abnormal (none) [facility] Comment on above: Performed By: #### L [id number], [id number] ####Staff Field Engineer: LYDIA LION ([id number])[facility] ([facility])[address] [place] [address] [place] TARGET CELLS IN BLOOD BY LIGHT MICROSCOPY Slight Abnormal (none) [facility] Comment on above: Performed By: #### L [id number], [id number] ####Staff Field Engineer: LYDIA LION ([id number])[facility] ([facility])[address] [place] [address] UNCLASSIFIED CELLS TOTAL PER COUNTED LEUKOCYTES BY MANUAL COUNT [facility] Comment on above: Performed By: #### L [id number], [id number] ####Staff Field Engineer: LYDIA LION ([id number])[facility] ([facility])[address] [place] [address] VARIANT LYMPHOCYTES TOTAL PER COUNTED LEUKOCYTES BY MANUAL COUNT Normal [facility] Comment on above: Performed By: #### L [id number], [id number] ####Staff Field Engineer: LYDIA LION ([id number])[facility] ([facility])[address] [place] [address] No Panel Informationon 11-18 Atypical Lymphocytes Manual [facility] Bands Manual 2 [facility] Basophils Manual [facility] E[facility] Manual [facility] Interpretation and review of laboratory results Abnormal [facility] Lymphocytes Manual 11 [facility] Metamyelocytes Manual 2 [facility] Monocytes Manual 4 [facility] Myelocytes Manual 1 [facility] ealth Neutrophils Manual 80 [facility] Promyelocytes Manual [facility] Unclassified Cells, Manual [facility] Nursing Noteon 11-18-2024 Nursing Note Home going instructi ons given, patient verbalizes understanding Normal [facility] Nursing Note Normal [facility] Progress Noteon 11-18-2024 Progress Note Normal [facility] XR LUMBAR SPINE 4-5 VIEWon 0 11-18-2024 XR LUMBAR SPINE 4-5 VIEW Normal [facility] XR Lumbar spine Views W flex ion and W extensionon 11-18-2024 Postsurgical and degenerative changes of the lumbar spine Report Dictated on Electronically Signed By: Alonso Byrne MD Electronically Signed Date/Time: 11/18/2024 9:39 AM [facility] Patient Name: KATHRYN MCINTOSH : 1940 Exam Date/Time: 11/18/2024 08:21 Procedure: XR LUMBAR SPINE 4-5 VIEW Ordering Provider: MORRISON RAJIV Reason For Exam: IMAGING OF SPINE LUMBAR SPINE CLINICAL INDICATION: Back pain AP, lateral, right and left oblique, and cone-down lateral views of L5-S1 were performed. 5 images. COMPARISON: None. FINDINGS: Alignment: There is grade 1 anterolisthesis of L2 on L3. There is mild chronic deformity of the lumbar spine concave to the right Vertebrae: Laminectomy defect is noted involving the L2-L5 levels. Pedicle screws and posterior fusion rods are noted involving the L2-L5 levels. No compression deformities. No osseous lesions. Disc spaces: Normal Other: Midline skin maddie are noted. Sacral stimulator electrode is noted overlying the right aspect of the sacrum. [facility] Alonso Byrne MD - 11/18/2024 Patient Name: KATHRYN TAMEZ : 1940 Exam Date/Time: 11/18/2024 08:21 Procedure: XR LUMBAR SPINE 4-5 VIEW Ordering Provider: MORRISON RAJIV Reason For Exam: IMAGING OF SPINE LUMBAR SPINE CLINICAL INDICATION: Back pain AP, lateral, right and left oblique, and cone-down lateral views of L5-S1 were performed. 5 images. COMPARISON: None. FINDINGS: Alignment: There is grade 1 anterolisthesis of L2 on L3. There is mild chronic deformity of the lumbar spine concave to the right Vertebrae: Laminectomy defect is noted involving the L2-L5 levels. Pedicle screws and posterior fusion rods are noted involving the L2-L5 levels. No compression deformities. No osseous lesions. Disc spaces: Normal Other: Midline skin maddie are noted. Sacral stimulator electrode is noted overlying the right aspect of the sacrum. IMPRESSION: Postsurgical and degenerative changes of the lumbar spine Report Dictated on Electronically Signed By: Alonso Byrne MD Electronically Signed Date/Time: 11/18/2024 9:39 AM EDT [facility] Study observation (narrative) [facility] XR Lumbar spine Views W flex ion and W extensionOrdered By: Alonso Byrne on 11-18-2024 [facility] Work Phone: 30on 11-17-2024 30 Normal [facility] [id number] 11-17-2024 [id number] Normal [facility] [id number] Normal [facility] [id number] 11-17-2024 [id number] Updated placed to [facility] via [employer] per TCC request. Normal [facility] [id number] Normal [facility] BASIC METABOLIC PANELon Anion gap [Moles/Vol] 8 mmol/L Normal 3-13 [facility] Comment on above: Performed By: #### L [id number] ####Staff Field Engineer: LYDIA LION ([id number])[facility] ([facility])[address] [place] [address] Calcium [Mass/Vol] 8.4 mg/dL Low 8.8-10.0 [facility] Comment on above: Performed By: #### L AB15 ####Staff Field Engineer: LYDIA LION ([id number])[facility] ([facility])[address] [place] [address] [place] Chloride [Moles/Vol] 107 mmol/L Normal 98-107 [facility] Comment on above: Performed By: #### L AB15 ####Staff Field Engineer: LYDIA LION ([id number])[facility] ([facility])[address] [place] [address] [place] CO2 [Moles/Vol] 25 mmol/L Normal 23-31 [facility] Comment on above: Performed By: #### L AB15 ####Staff Field Engineer: LYDIA LION ([id number])[facility] ([facility])[address] [place] [address] [place] Creatinine [Mass/Vol] 0.68 mg/dL Normal 0.57-1.11 [facility] Comment on above: Performed By: #### L AB15 ####Staff Field Engineer: LYDIA LION ([id number])[facility] ([facility])[address] [place] [address] GLOMERULAR FILTRATION RATE ML/MIN/1.73 SQ M.PREDICTED 86.0 mL/min/1.73m*2 Normal >60.0 [facility] Comment on above: Result Comment: Calc ulation based on the Chronic Kidney Disease Epidemiology Collaboration (CKD-EPI) equation refit without adjustment for race Performed By: #### L AB15 ####Staff Field Engineer: LYDIA LION ([id number])[facility])[address] [place] [address] Glucose [Mass/Vol] 104 mg/dL Normal 82-115 [facility] Comment on above: Performed By: #### L AB15 ####Staff Field Engineer: LYDIA LION ([id number])[facility])[address] [place] [address] Potassium [Moles/Vol] 3.8 mmol/L Normal 3.5-5.1 [facility] Comment on above: Result Comment: [facility] potassium values may be up to 0.5 mmol/L lower than serum values. Performed By: #### L AB15 ####Staff Field Engineer: LYDIA LION ([id number])[facility] ([facility])[address] [place] [address] Sodium [Moles/Vol] 140 mmol/L Normal 136-145 [facility] Comment on above: Performed By: #### L AB15 ####Staff Field Engineer: LYDIA LION ([id number])[facility])[address] [place] [address] Urea nitrogen [Mass/Vol] 11 mg/dL Normal 9-23 [facility] Comment on above: Performed By: #### L AB15 ####Staff Field Engineer: LYDIA LION ([id number])[facility])[address] [place] [address] Basic metabolic 1998 panelon 11-17-2024 Anion gap [Moles/Vol] 8 mmol/L 3 - 13 mmol/L [facility] Calcium [Mass/Vol] 8.4 mg/dL Low 8.8 - 10. 0 mg/dL [facility] Chloride [Moles/Vol] 107 mmol/L 98 - 10 7 mmol/L [facility] CO2 [Moles/Vol] 25 mmol/L 23 - 31 mmol/L [facility] Creatinine [Mass/Vol] 0.68 mg/dL 0.57 - 1.11 mg/dL [facility] GFR/1.73 sq M.predicted (S/P/Bld) [Vol rate/Area] 86 mL/min - PINF [facility] Comment on above: Calculation based on the Chronic Kidney Disease Epidemiology Collaboration (CKD-EPI) equation refit without adjustment for race Glucose [Mass/Vol] 104 mg/dL 82 - 115 mg/dL [facility] Interpretation and review of laboratory results Abnormal [facility] Potassium [Moles/Vol] 3.8 mmol/L 3.5 - 5.1 mmol/L [facility] Comment on above: Plasma potassium chandler ues may be up to 0.5 mmol/L lower than serum values. Sodium [Moles/Vol] 140 mmol/L 136 - 145 mmol/L [facility] Urea nitrogen [Mass/Vol] 11 mg/dL 9 - 23 mg/dL [facility] CBC W Auto Differential pane l (Bld)on 11-17-2024 Erythrocyte distribution width (RBC) [Ratio] 16.4 % High 11.5 - 15.0 % [facility] Hematocrit (Bld) [Volume fraction] 26.6 % Low 35.0 - 47.0 % [facility] Hemoglobin (Bld) [Mass/Vol] 8.6 g/dL Low 11.7 - 16.0 g/dL [facility] Interpretation and review of laboratory results Abnormal [facility] MCH (RBC) [Entitic mass] 27.5 pg 26.0 - 34.0 pg [facility] MCHC (RBC) [Mass/Vol] 32.3 % 30.5 - 36.0 % [facility] MCV (RBC) [Entitic vol] 85 fL 77.0 - 99.0 fL [facility] Platelet mean volume (Bld) [Entitic vol] 11.1 fL 9.0 - 12.7 fL [facility] Platelets (Bld) [#/Vol] 341 10*3/uL 140 - 440 10*3/uL [facility] RBC (Bld) [#/Vol] 3.13 10*6/uL Low 3.80 - 5.20 10*6/uL [facility] WBC (Bld) [#/Vol] 16.6 10*3/uL High 3.6 - 10.7 10*3/uL [facility] CBC WITH AUTO DIFFERENTIALon 11-17-2024 Erythrocyte distribution width (RBC) [Ratio] 16.4 % High 11.5-15.0 [facility] Comment on above: Performed By: #### L [id number], [id number] ####Staff Field Engineer: LYDIA LION ([id number])[address] Hematocrit (Bld) [Volume fraction] 26.6 % Low 35.0-47.0 [facility] Comment on above: Performed By: #### Naun [id number], [id number] ####Staff Field Engineer: LYDIA LION ([id number])[address] Hemoglobin (Bld) [Mass/Vol] 8.6 g/dL Low 11.7-16.0 [facility] Comment on above: Performed By: #### Naun [id number], [id number] ####Staff Field Engineer: LYDIA LION ([id number])[address] MCH (RBC) [Entitic mass] 27.5 pg Normal 26.0-34.0 [facility] Comment on above: Performed By: #### Naun [id number], [id number] ####Staff Field Engineer: LYDIA LION ([id number])[address] MCHC 32.3 % Normal 30.5-36.0 [facility] Comment on above: Performed By: #### L [id number], [id number] ####Staff Field Engineer: LYDIA LION ([id number])[address] MCV (RBC) [Entitic vol] 85.0 fL Normal 77.0-99.0 [facility] Comment on above: Performed By: #### L [id number], [id number] ####Staff Field Engineer: LYDIA LION ([id number])[facility])[address] [place] [address] Platelet mean volume (Bld) [Entitic vol] 11.1 fL Normal 9.0-12.7 [facility] Comment on above: Performed By: #### L [id number], [id number] ####Staff Field Engineer: LYDIA LION ([id number])[facility])[address] [place] [address] Platelets (Bld) [#/Vol] 341 10*3/uL Normal 140-440 [facility] Comment on above: Performed By: #### Naun [id number], [id number] ####Staff Field Engineer: LYDIA LION ([id number])[facility])[address] [place] [address] RBC (Bld) [#/Vol] 3.13 10*6/uL Low 3.80-5.20 [facility] Comment on above: Performed By: #### Naun [id number], [id number] ####Staff Field Engineer: LYDIA LION ([id number])[facility])[address] [place] [address] WBC (Bld) [#/Vol] 16.6 10*3/uL High 3.6-10.7 [facility] Comment on above: Performed By: #### L [id number], [id number] ####Staff Field Engineer: LYDIA LION ([id number])[facility])[address] [place] [address] Laboratory - Hematology and Cell countson 11-17-2024 Band form neutrophils (Bld) [#/Vol] 0.7 10*3/uL High NINF - 0.0 10*3/uL [facility] Band form neutrophils/100 WBC (Bld) 4 % High NINF - 0 % [facility] Basophils (Bld) [#/Vol] 0.2 10*3/uL 0.0 - 0.2 10*3/uL [facility] Basophils/100 WBC (Bld) 1 % 0 - 2 % [facility] Lymphocytes (Bld) [#/Vol] 4.5 10*3/uL High 1.0 - 4.3 10*3/uL [facility] Lymphocytes/100 WBC (Bld) 27 % 15 - 45 % [facility] Metamyelocytes (Bld) [#/Vol] 0.2 10*3/uL High NINF - 0.0 10*3/uL [facility] Metamyelocytes/100 WBC (Bld) 1 % High NINF - 0 % [facility] Monocytes (Bld) [#/Vol] 1.8 10*3/uL High 0.0 - 0.9 10*3/uL [facility] Monocytes/100 WBC (Bld) 11 % 5 - 13 % [facility] Neutrophils (Bld) [#/Vol] 10 10*3/uL High 1.8 - 7.5 10*3/uL [facility] Poikilocytosis LM Ql (Bld) Slight Abnormal (none) [facility] RBC morphology finding Nom (Bld) abnormal [facility] Segmented neutrophils/100 WBC (Bld) 56 % 38 - 82 % [facility] Stomatocytes LM Ql (Bld) Slight Abnormal (none) [facility] Target cells LM Ql (Bld) Slight Abnormal (none) [facility] Lower GI hemoglobin spec 1 I A Ql (Stl)Ordered By: Joyce Bucio on 11-17-2024 Fecal occult blood Positive Abnormal Negative [facility] Interpretation and review of laboratory results Abnormal [facility] Methodology: Immunoassay [facility] MANUAL DIFFERENTIAL (CELLAVI DAVON)on 11-17-2024 BAND NEUTROPHILS TOTAL PER COUNTED LEUKOCYTES BY MANUAL COUNT 4 Normal [facility] Comment on above: Performed By: #### L [id number], [id number] ####Staff Field Engineer: LYDIA LION ([id number])[address] BANDS (10*3/UL) IN BLOOD-CELLAVISION 0.7 10*3/uL High <=0.0 [facility] Comment on above: Performed By: #### L [id number], [id number] ####Staff Field Engineer: LYDIA LION ([id number])[facility] ([facility])[address] [place] [address] [place] BASOPHILS (10*3/UL) IN BLOOD-CELLAVISION 0.2 10*3/uL Normal 0.0-0.2 [facility] Comment on above: Performed By: #### L [id number], [id number] ####Staff Field Engineer: LYDIA LION ([id number])[facility] ([facility])[address] [place] [address] [place] BASOPHILS TOTAL PER COUNTED LEUKOCYTES BY MANUAL COUNT 1 Normal [facility] Comment on above: Performed By: #### L [id number], [id number] ####Staff Field Engineer: LYDIA LION ([id number])[facility] ([facility])[address] [place] [address] [place] BASOPHILS/100 LEUKOCYTES IN BLOOD-CELLAVISION 1 % Normal 0-2 [facility] Comment on above: Performed By: #### L [id number], [id number] ####Staff Field Engineer: LYDIA LION ([id number])[facility] ([facility] [place] [address] [place] BLASTS TOTAL PER COUNTED LEUKOCYTES BY MANUAL COUNT Normal [facility] Comment on above: Performed By: #### L [id number], [id number] ####Staff Field Engineer: LYDIA LION ([id number])[facility] ([facility])[address] [place] [address] [place] EOSINOPHILS TOTAL PER COUNTED LEUKOCYTES BY MANUAL COUNT Normal [facility] Comment on above: Performed By: #### L [id number], [id number] ####Staff Field Engineer: LYDIA LION ([id number])[facility] ([facility])[address] [place] [address] [place] LYMPHOCYTES (10*3/UL) IN BLOOD-CELLAVISION 4.5 10*3/uL High 1.0-4.3 [facility] Comment on above: Performed By: #### L [id number], [id number] ####Staff Field Engineer: LYDIA LION ([id number])[facility] ([facility])[address] [place] [address] [place] LYMPHOCYTES TOTAL PER COUNTED LEUKOCYTES BY MANUAL COUNT 27 Normal [facility] Comment on above: Performed By: #### L [id number], [id number] ####Staff Field Engineer: LYDAI LION ([id number])[facility] ([facility])[address] [place] [address] [place] LYMPHOCYTES/100 LEUKOCYTES IN BLOOD-CELLAVISION 27 % Normal 15-45 [facility] Comment on above: Performed By: #### Naun [id number], [id number] ####Staff Field Engineer: LYDIA LION ([id number])[facility] ([facility])[address] [place] [address] [place] METAMYELOCYTES (10*3/UL) IN BLOOD-CELLAVISION 0.2 10*3/uL High <=0.0 [facility] Comment on above: Performed By: #### Naun [id number], [id number] ####Staff Field Engineer: LYDIA LION ([id number])[facility] ([facility])[address] [place], [place] [address] [place] METAMYELOCYTES TOTAL PER COUNTED LEUKOCYTES BY MANUAL COUNT 1 Normal [facility] Comment on above: Performed By: #### Naun [id number], [id number] ####Staff Field Engineer: LYDIA LION ([id number])[facility] ([facility])[address] [place] [address] [place] METAMYELOCYTES/100 LEUKOCYTES IN BLOOD-CELLAVISION 1 % High <=0 [facility] Comment on above: Performed By: #### Naun [id number], [id number] ####Staff Field Engineer: LYDIA LION ([phone])[facility] ([facility])[address] [place] [address] [place] MONOCYTES (10*3/UL) IN BLOOD-CELLAVISION 1.8 10*3/uL High 0.0-0.9 [facility] Comment on above: Performed By: #### L [id number], [id number] ####Staff Field Engineer: LYDIA LION ([phone])[facility] ([facility])[address] [place] [address] [place] MONOCYTES TOTAL PER COUNTED LEUKOCYTES BY MANUAL COUNT 11 Normal [facility] Comment on above: Performed By: #### L [id number], [id number] ####Staff Field Engineer: LYDIA LION ([id number])[facility] ([facility])[address] [place] [address] [place] MONOCYTES/100 LEUKOCYTES IN BLOOD-ELLEN 11 % Normal 5-13 [facility] Comment on above: Performed By: #### L [id number], [id number] ####Staff Field Engineer: LYDIA LION ([phone])[facility] ([facility])[address] [place] [address] [place] MYELOCYTES COUNTED BY MANUAL COUNT Normal [facility] Comment on above: Performed By: #### L [id number], [id number] ####Staff Field Engineer: LYDIA LION ([phone])[facility] ([facility])[address] [place] [address] [place] NEUTROPHILS BAND FORM/100 LEUKOCYTES IN BLOOD-CELLAVISI 4 % High <=0 [facility] Comment on above: Performed By: #### Naun [id number], [id number] ####Staff Field Engineer: LYDIA LION ([id number])[facility] ([facility])[address] [place] [address] [place] NEUTROPHILS TOTAL PER COUNTED LEUKOCYTES BY MANUAL COUNT 57 Normal [facility] Comment on above: Performed By: #### L [id number], [id number] ####Staff Field Engineer: LYDIA LION ([id number])[facility] ([facility])[address] [place] [address] [place] POIKILOCYTOSIS (PRESENCE) IN BLOOD BY LIGHT MICROSCOPY Slight Abnormal (none) [facility] Comment on above: Performed By: #### L [id number], [id number] ####Staff Field Engineer: LYDIA LION ([id number])[facility] ([facility])[address] [place] [address] [place] PROMYELOCYTES TOTAL PER COUNTED LEUKOCYTES BY MANUAL COUNT Normal [facility] Comment on above: Performed By: #### L [id number], [id number] ####Staff Field Engineer: LYDIA LION ([id number])[facility] ([facility])[address] [place] [address] [place] RBC MORPHOLOGY IN BLOOD abnormal Normal [facility] Comment on above: Performed By: #### L [id number], [id number] ####Staff Field Engineer: LYDIA LION ([id number])[facility] ([facility])[address] [place] [address] SEGMENTED NEUTROPHILS (10*3/UL) IN BLOOD-CELLAVISION 10.0 10*3/uL High 1.8-7.5 [facility] Comment on above: Performed By: #### L [id number], [id number] ####Staff Field Engineer: LYDIA LION ([id number])[facility] ([facility])[address] [place] [address] SEGMENTED NEUTROPHILS/100 LEUKOCYTES-CE 56 % Normal 38-82 [facility] Comment on above: Performed By: #### L [id number], [id number] ####Staff Field Engineer: LYDIA LION ([id number])[facility] ([facility])[address] [place] [address] [place] STOMATOCYTES IN BLOOD BY LIGHT MICROSCOPY Slight Abnormal (none) [facility] Comment on above: Performed By: #### L [id number], [id number] ####Staff Field Engineer: LYDIA LION ([id number])[facility] ([facility])[address] [place] [address] TARGET CELLS IN BLOOD BY LIGHT MICROSCOPY Slight Abnormal (none) [facility] Comment on above: Performed By: #### L [id number], [id number] ####Staff Field Engineer: LYDIA LION ([id number])[facility] ([facility])[address] [place] [address] UNCLASSIFIED CELLS TOTAL PER COUNTED LEUKOCYTES BY MANUAL COUNT Normal [facility] Comment on above: Performed By: #### L [id number], [id number] ####Staff Field Engineer: LYDIA LION ([id number])[facility] ([facility])[address] [place] [address] VARIANT LYMPHOCYTES TOTAL PER COUNTED LEUKOCYTES BY MANUAL COUNT Normal [facility] Comment on above: Performed By: #### L [id number], [id number] ####Staff Field Engineer: LYDIA LION ([id number])[facility] ([facility])[address] [place] [address] No Panel Informationon 11-17 Atypical Lymphocytes Manual [facility] Bands Manual 4 [facility] Basophils Manual 1 [facility] Blasts Manual [facility] Eosinophils Manual [facility] Interpretation and review of laboratory results Abnormal [facility] Lymphocytes Manual 27 [facility] Metamyelocytes Manual 1 [facility] Monocytes Manual 11 [facility] alth Myelocytes Manual [facility] ealth Neutrophils Manual 57 [facility] Promyelocytes Manual [facility] Unclassified Cells, Manual [facility] OCCULT BLOOD, STOOLon 2024 OCCULT BLOOD, STOOL FECAL OCCULT, STOOL (A) Reference Positive Negative ORDER COMMENTS: (A) Methodology: Immunoassay Normal [facility] Comment on above: Performed By: #### L [id number] ####Staff Field Engineer: LYDIA LION ([id number])[facility] ([facility])[address] [place] [address] Progress Noteon 11-17-2024 Progress Note Normal [facility] [facility] [employer] Progress Note Normal [facility] Progress Note Normal [facility] [employer] [facility] Progress Note Normal [facility] 30on 11-16-2024 30 Normal [facility] 30 Normal [facility] BASIC METABOLIC PANELon Anion gap [Moles/Vol] 5 mmol/L Normal 3-13 [facility] Comment on above: Performed By: #### L AB15 ####Staff Field Engineer: LYDIA LION ([id number])[facility] ([facility])[address] [place] [address] Calcium [Mass/Vol] 8.2 mg/dL Low 8.8-10.0 [facility] Comment on above: Performed By: #### L AB15 ####Staff Field Engineer: LYDIA LION ([id number])[facility] ([facility])[address] [place] [address] Chloride [Moles/Vol] 109 mmol/L High 98-107 [facility] Comment on above: Performed By: #### L AB15 ####Staff Field Engineer: LYDIA LION ([id number])[facility] ([facility])[address] [place] [address] CO2 [Moles/Vol] 27 mmol/L Normal 23-31 [facility] Comment on above: Performed By: #### L AB15 ####Staff Field Engineer: LYDIA LION ([id number])[facility] ([facility])[address] [place] [address] Creatinine [Mass/Vol] 0.64 mg/dL Normal 0.57-1.11 [facility] Comment on above: Performed By: #### L AB15 ####Staff Field Engineer: LYDIA LION ([id number])[facility] ([facility])[address] [place] [address] [place] GLOMERULAR FILTRATION RATE ML/MIN/1.73 SQ M.PREDICTED 87.3 mL/min/1.73m*2 Normal >60.0 [facility] Comment on above: Result Comment: Calc ulation based on the Chronic Kidney Disease Epidemiology Collaboration (CKD-EPI) equation refit without adjustment for race Performed By: #### L AB15 ####Staff Field Engineer: LYDIA LION ([id number])[facility] ([facility])[address] [place] [address] Glucose [Mass/Vol] 103 mg/dL Normal 82-115 [facility] Comment on above: Performed By: #### L AB15 ####Staff Field Engineer: LYDIA LION ([id number])[facility] ([facility])[address] [place] [address] Potassium [Moles/Vol] 4.2 mmol/L Normal 3.5-5.1 [facility] Comment on above: Result Comment: [facility] potassium values may be up to 0.5 mmol/L lower than serum values. Performed By: #### L AB15 ####Staff Field Engineer: LYDIA LION ([id number])[facility] ([facility])[address] [place] [address] Sodium [Moles/Vol] 141 mmol/L Normal 136-145 [facility] Comment on above: Performed By: #### L AB15 ####Staff Field Engineer: LYDIA LION ([id number])[facility] ([facility])[address] [place] [address] Urea nitrogen [Mass/Vol] 12 mg/dL Normal 9-23 [facility] Comment on above: Performed By: #### L AB15 ####Staff Field Engineer: LYDIA LION ([id number])[facility] ([facility])[address] [place] [address] Basic metabolic 1998 panelon 11-16-2024 Anion gap [Moles/Vol] 5 mmol/L 3 - 13 mmol/L [facility] Calcium [Mass/Vol] 8.2 mg/dL Low 8.8 - 10. 0 mg/dL [facility] Chloride [Moles/Vol] 109 mmol/L High 98 - 10 7 mmol/L [facility] CO2 [Moles/Vol] 27 mmol/L 23 - 31 mmol/L [facility] Creatinine [Mass/Vol] 0.64 mg/dL 0.57 - 1.11 mg/dL [facility] GFR/1.73 sq M.predicted (S/P/Bld) [Vol rate/Area] 87.3 mL/min - PINF [facility] Comment on above: Calculation based on the Chronic Kidney Disease Epidemiology Collaboration (CKD-EPI) equation refit without adjustment for race Glucose [Mass/Vol] 103 mg/dL 82 - 115 mg/dL [facility] Interpretation and review of laboratory results Abnormal [facility] Potassium [Moles/Vol] 4.2 mmol/L 3.5 - 5.1 mmol/L [facility] Comment on above: Plasma potassium chandler ues may be up to 0.5 mmol/L lower than serum values. Sodium [Moles/Vol] 141 mmol/L 136 - 145 mmol/L [facility] Urea nitrogen [Mass/Vol] 12 mg/dL 9 - 23 mg/dL [facility] CBC W Auto Differential pane l (Bld)on 11-16-2024 Erythrocyte distribution width (RBC) [Ratio] 16.2 % High 11.5 - 15.0 % [facility] Hematocrit (Bld) [Volume fraction] 28.9 % Low 35.0 - 47.0 % [facility] Hemoglobin (Bld) [Mass/Vol] 9.2 g/dL Low 11.7 - 16.0 g/dL [facility] Interpretation and review of laboratory results Abnormal [facility] MCH (RBC) [Entitic mass] 27.4 pg 26.0 - 34.0 pg [facility] MCHC (RBC) [Mass/Vol] 31.8 % 30.5 - 36.0 % [facility] MCV (RBC) [Entitic vol] 86 fL 77.0 - 99.0 fL [facility] Platelet mean volume (Bld) [Entitic vol] 11 fL 9.0 - 12.7 fL [facility] Platelets (Bld) [#/Vol] 364 10*3/uL 140 - 440 10*3/uL [facility] RBC (Bld) [#/Vol] 3.36 10*6/uL Low 3.80 - 5.20 10*6/uL [facility] WBC (Bld) [#/Vol] 17.7 10*3/uL High 3.6 - 10.7 10*3/uL [facility] CBC WITH AUTO DIFFERENTIALon 11-16-2024 Erythrocyte distribution width (RBC) [Ratio] 16.2 % High 11.5-15.0 [facility] Comment on above: Performed By: #### L [id number], [id number] ####Staff Field Engineer: LYDIA [id number])[address] Hematocrit (Bld) [Volume fraction] 28.9 % Low 35.0-47.0 [facility] Comment on above: Performed By: #### L [id number], [id number] ####Staff Field Engineer: LYDIA LION ([phone])[address] Hemoglobin (Bld) [Mass/Vol] 9.2 g/dL Low 11.7-16.0 [facility] Comment on above: Performed By: #### L [id number], [id number] ####Staff Field Engineer: LYDIA LION ([id number])[facility] ([facility])[address] [place] [address] MCH (RBC) [Entitic mass] 27.4 pg Normal 26.0-34.0 [facility] Comment on above: Performed By: #### L [id number], [id number] ####Staff Field Engineer: LYDIA LION ([id number])[facility])[address] [place] [address] MCHC 31.8 % Normal 30.5-36.0 [facility] Comment on above: Performed By: #### L [id number], [id number] ####Staff Field Engineer: LYDIA LION ([id number])[facility])[address] [place] [address] MCV (RBC) [Entitic vol] 86.0 fL Normal 77.0-99.0 [facility] Comment on above: Performed By: #### Naun [id number], [id number] ####Staff Field Engineer: LYDIA LION ([id number])[facility] ([facility])[address] [place] [address] Platelet mean volume (Bld) [Entitic vol] 11.0 fL Normal 9.0-12.7 [facility] Comment on above: Performed By: #### L [id number], [id number] ####Staff Field Engineer: LYDIA LION ([id number])[facility])[address] [place] [address] Platelets (Bld) [#/Vol] 364 10*3/uL Normal 140-440 [facility] Comment on above: Performed By: #### L [id number], [id number] ####Staff Field Engineer: LYDIA LION ([id number])[facility])[address] [place] [address] RBC (Bld) [#/Vol] 3.36 10*6/uL Low 3.80-5.20 [facility] Comment on above: Performed By: #### L [id number], [id number] ####Staff Field Engineer: LYDIA LION ([id number])[facility] ([facility])[address] [place] [address] WBC (Bld) [#/Vol] 17.7 10*3/uL High 3.6-10.7 [facility] Comment on above: Performed By: #### Naun [id number], [id number] ####Staff Field Engineer: LYDIA LION ([id number])[facility] ([facility])[address] [place] [address] Laboratory - Hematology and Cell countson 11-16-2024 Band form neutrophils (Bld) [#/Vol] 0.5 10*3/uL High NINF - 0.0 10*3/uL [facility] Band form neutrophils/100 WBC (Bld) 3 % High NINF - 0 % [facility] Lymphocytes (Bld) [#/Vol] 3.2 10*3/uL 1.0 - 4.3 10*3/uL [facility] Lymphocytes/100 WBC (Bld) 18 % 15 - 45 % [facility] Monocytes (Bld) [#/Vol] 2.3 10*3/uL High 0.0 - 0.9 10*3/uL [facility] Monocytes/100 WBC (Bld) 13 % 5 - 13 % [facility] Neutrophils (Bld) [#/Vol] 12.2 10*3/uL High 1.8 - 7.5 10*3/uL [facility] Poikilocytosis LM Ql (Bld) Moderate Abnormal (none) [facility] RBC morphology finding Nom (Bld) abnormal [facility] Segmented neutrophils/100 WBC (Bld) 66 % 38 - 82 % [facility] Stomatocytes LM Ql (Bld) Slight Abnormal (none) [facility] Target cells LM Ql (Bld) Moderate Abnormal (none) [facility] MANUAL DIFFERENTIAL (CELLAVI DAVON)on 11-16-2024 BAND NEUTROPHILS TOTAL PER COUNTED LEUKOCYTES BY MANUAL COUNT 3 Normal [facility] Comment on above: Performed By: #### Naun [id number], [id number] ####Staff Field Engineer: LYDIA LION ([id number])[facility] ([facility])[address] [place] [address] [place] BANDS (10*3/UL) IN BLOOD-CELLAVISION 0.5 10*3/uL High <=0.0 [facility] Comment on above: Performed By: #### L [id number], [id number] ####Staff Field Engineer: LYDIA LION ([id number])[facility] ([facility])[address] [place] [address] [place] BASOPHILS TOTAL PER COUNTED LEUKOCYTES BY MANUAL COUNT [facility] Comment on above: Performed By: #### L [id number], [id number] ####Staff Field Engineer: LYDIA LION ([id number])[facility] ([facility])[address] [place] [address] BLASTS TOTAL PER COUNTED LEUKOCYTES BY MANUAL COUNT [facility] Comment on above: Performed By: #### L [id number], [id number] ####Staff Field Engineer: LYDIA LION ([id number])[facility] ([facility])[address] [place] [address] [place] EOSINOPHILS TOTAL PER COUNTED LEUKOCYTES BY MANUAL COUNT [facility] Comment on above: Performed By: #### L [id number], [id number] ####Staff Field Engineer: LYDIA LION ([id number])[facility] ([facility])[address] [place] [address] LYMPHOCYTES (10*3/UL) IN BLOOD-CELLAVISION 3.2 10*3/uL Normal 1.0-4.3 [facility] Comment on above: Performed By: #### L [id number], [id number] ####Staff Field Engineer: LYDIA LION ([id number])[facility] ([facility])[address] [place] [address] [place] LYMPHOCYTES TOTAL PER COUNTED LEUKOCYTES BY MANUAL COUNT [address] [facility] Comment on above: Performed By: #### L [id number], [id number] ####Staff Field Engineer: LYDIA LION ([id number])[facility] ([facility])[address] [place] [address] [place] LYMPHOCYTES/100 LEUKOCYTES IN BLOOD-CELLAVISION 18 % Normal 15-45 [facility] Comment on above: Performed By: #### L [id number], [id number] ####Staff Field Engineer: LYDIA LION ([id number])[facility] ([facility])[address] [place] [address] METAMYELOCYTES TOTAL PER COUNTED LEUKOCYTES BY MANUAL COUNT Normal [facility] Comment on above: Performed By: #### L [id number], [id number] ####Staff Field Engineer: LYDIA LION ([id number])[facility] ([facility])[address] [place] [address] [place] MONOCYTES (10*3/UL) IN BLOOD-CELLAVISION 2.3 10*3/uL High 0.0-0.9 [facility] Comment on above: Performed By: #### L [id number], [id number] ####Staff Field Engineer: LYDIA LION ([id number])[facility] ([facility])[address] [place] [address] [place] MONOCYTES TOTAL PER COUNTED LEUKOCYTES BY MANUAL COUNT 13 Normal [facility] Comment on above: Performed By: #### L [id number], [id number] ####Staff Field Engineer: LYDIA LION ([id number])[facility] ([facility])[address] [place] [address] [place] MONOCYTES/100 LEUKOCYTES IN BLOOD-ELLEN 13 % Normal 5-13 [facility] Comment on above: Performed By: #### L [id number], [id number] ####Staff Field Engineer: LYDIA LION ([id number])[facility])[address] [place] [address] MYELOCYTES COUNTED BY MANUAL COUNT [facility] Comment on above: Performed By: #### L [id number], [id number] ####Staff Field Engineer: LYDIA LION ([id number])[facility])[address] [place] [address] [place] NEUTROPHILS BAND FORM/100 LEUKOCYTES IN BLOOD-CELLAVISI 3 % High <=0 [facility] Comment on above: Performed By: #### L [id number], [id number] ####Staff Field Engineer: LYDIA LION ([phone])[facility] ([facility])[address] [place] [address] [place] NEUTROPHILS TOTAL PER COUNTED LEUKOCYTES BY MANUAL COUNT 69 Normal [facility] Comment on above: Performed By: #### L [id number], [id number] ####Staff Field Engineer: LYDIA LION ([id number])[facility] ([facility])[address] [place] [address] POIKILOCYTOSIS (PRESENCE) IN BLOOD BY LIGHT MICROSCOPY Moderate Abnormal (none) [facility] Comment on above: Performed By: #### L [id number], [id number] ####Staff Field Engineer: LYDIA LION ([id number])[facility] ([facility])[address] [place] [address] PROMYELOCYTES TOTAL PER COUNTED LEUKOCYTES BY MANUAL COUNT Normal [facility] Comment on above: Performed By: #### L [id number], [id number] ####Staff Field Engineer: LYDIA LION ([id number])[facility] ([facility])[address] [place] [address] RBC MORPHOLOGY IN BLOOD abnormal Normal [facility] Comment on above: Performed By: #### L [id number], [id number] ####Staff Field Engineer: LYDIA LION ([id number])[facility] ([facility])[address] [place] [address] SEGMENTED NEUTROPHILS (10*3/UL) IN BLOOD-CELLAVISION 12.2 10*3/uL High 1.8-7.5 [facility] Comment on above: Performed By: #### L [id number], [id number] ####Staff Field Engineer: LYDIA LION ([id number])[facility] ([facility])[address] [place] [address] [place] SEGMENTED NEUTROPHILS/100 LEUKOCYTES-CE 66 % Normal 38-82 [facility] Comment on above: Performed By: #### L [id number], [id number] ####Staff Field Engineer: LYDIA LION ([id number])[facility] ([facility])[address] [place] [address] [place] STOMATOCYTES IN BLOOD BY LIGHT MICROSCOPY Slight Abnormal (none) [facility] Comment on above: Performed By: #### L [id number], [id number] ####Staff Field Engineer: LYDIA LION ([phone])[facility])[address] [place] [address] TARGET CELLS IN BLOOD BY LIGHT MICROSCOPY Moderate Abnormal (none) [facility] Comment on above: Performed By: #### L [id number], [id number] ####Staff Field Engineer: LYDIA LION ([id number])[facility])[address] [place] [address] UNCLASSIFIED CELLS TOTAL PER COUNTED LEUKOCYTES BY MANUAL COUNT Normal [facility] Comment on above: Performed By: #### L [id number], [id number] ####Staff Field Engineer: LYDIA LION ([id number])[facility])[address] [place] [address] VARIANT LYMPHOCYTES TOTAL PER COUNTED LEUKOCYTES BY MANUAL COUNT Normal [facility] Comment on above: Performed By: #### L [id number], [id number] ####Staff Field Engineer: LYDIA LION ([id number])[address] No Panel Informationon 11-16 Atypical Lymphocytes Manual [facility] Bands Manual 3 [facility] Basophils Manual [facility] Blasts Manual [facility] Eosinophils Manual [facility] Interpretation and review of laboratory results Abnormal [facility] Lymphocytes Manual 19 [facility] Metamyelocytes Manual [facility] Monocytes Manual 13 [facility] Myelocytes Manual [facility] Neutrophils Manual 69 [facility] Promyelocytes Manual [facility] Unclassified Cells, Manual [facility] Progress Noteon 11-16-2024 Progress Note Normal [facility] [employer] Progress Note Normal [facility] [employer] BASIC METABOLIC PANELon Anion gap [Moles/Vol] 9 mmol/L Normal 3-13 [facility] Comment on above: Performed By: #### L [id number], [id number] ####Staff Field Engineer: LYDIA LION ([id number])[facility] ([facility] [facility])[address] [place] [address] Calcium [Mass/Vol] 8.6 mg/dL Low 8.8-10.0 [facility] Comment on above: Performed By: #### L AB15, [id number] ####Staff Field Engineer: LYDIA LION ([id number])[facility] ([facility])[address] [place] [address] [place] Chloride [Moles/Vol] 103 mmol/L Normal 98-107 [facility] Comment on above: Performed By: #### L AB15, [id number] ####Staff Field Engineer: LYDIA LION ([id number])[facility] ([facility])[address] [place] [address] CO2 [Moles/Vol] 31 mmol/L Normal 23-31 [facility] Comment on above: Performed By: #### L AB15, [id number] ####Staff Field Engineer: LYDIA LION ([id number])[facility] ([facility])[address] [place] [address] Creatinine [Mass/Vol] 0.70 mg/dL Normal 0.57-1.11 [facility] Comment on above: Performed By: #### L AB15, [id number] ####Staff Field Engineer: LYDIA LION ([id number])[facility] ([facility])[address] [place] [address] [place] GLOMERULAR FILTRATION RATE ML/MIN/1.73 SQ M.PREDICTED 85.4 mL/min/1.73m*2 Normal >60.0 [facility] Comment on above: Result Comment: Calc ulation based on the Chronic Kidney Disease Epidemiology Collaboration (CKD-EPI) equation refit without adjustment for race Performed By: #### L AB15, [id number] ####Staff Field Engineer: LYDIA LION ([phone])[facility] ([facility])[address] [place] [address] [place] Glucose [Mass/Vol] 122 mg/dL High 82-115 [facility] Comment on above: Performed By: #### L AB15, [id number] ####Staff Field Engineer: LYDIA [id number])[facility] ([facility])[address] [place] [address] Potassium [Moles/Vol] 3.2 mmol/L Low 3.5-5.1 [facility] Comment on above: Result Comment: [facility] potassium values may be up to 0.5 mmol/L lower than serum values. Performed By: #### L AB15, [id number] ####Staff Field Engineer: LYDIA LION ([id number])[facility] ([facility])[address] [place] [address] Sodium [Moles/Vol] 143 mmol/L Normal 136-145 [facility] Comment on above: Performed By: #### L AB15, [id number] ####Staff Field Engineer: LYDIA LION ([id number])[facility] ([facility])[address] [place] [address] Urea nitrogen [Mass/Vol] 10 mg/dL Normal 9-23 [facility] Comment on above: Performed By: #### L AB15, [id number] ####Staff Field Engineer: LYDIA LION ([id number])[facility] ([facility])[address] [place] [address] Basic metabolic 1998 panelon 11-15-2024 Anion gap [Moles/Vol] 9 mmol/L 3 - 13 mmol/L [facility] Calcium [Mass/Vol] 8.6 mg/dL Low 8.8 - 10. 0 mg/dL [facility] Chloride [Moles/Vol] 103 mmol/L 98 - 10 7 mmol/L [facility] CO2 [Moles/Vol] 31 mmol/L 23 - 31 mmol/L [facility] Creatinine [Mass/Vol] 0.7 mg/dL 0.57 - 1.11 mg/dL [facility] GFR/1.73 sq M.predicted (S/P/Bld) [Vol rate/Area] 85.4 mL/min - PINF [facility] Comment on above: Calculation based on the Chronic Kidney Disease Epidemiology Collaboration (CKD-EPI) equation refit without adjustment for race Glucose [Mass/Vol] 122 mg/dL High 82 - 115 mg/dL [facility] Interpretation and review of laboratory results Abnormal [facility] Potassium [Moles/Vol] 3.2 mmol/L Low 3.5 - 5.1 mmol/L [facility] Comment on above: Plasma potassium chandler ues may be up to 0.5 mmol/L lower than serum values. Sodium [Moles/Vol] 143 mmol/L 136 - 145 mmol/L [facility] Urea nitrogen [Mass/Vol] 10 mg/dL 9 - 23 mg/dL [facility] CBC W Auto Differential pane l (Bld)Ordered By: Cody Wilkins on 11-15-2024 Erythrocyte distribution width (RBC) [Ratio] 15.9 % High 11.5 - 15.0 % [facility] Hematocrit (Bld) [Volume fraction] 30.5 % Low 35.0 - 47.0 % [facility] Hemoglobin (Bld) [Mass/Vol] 10 g/dL Low 11.7 - 16.0 g/dL [facility] Interpretation and review of laboratory results Abnormal [facility] MCH (RBC) [Entitic mass] 27.7 pg 26.0 - 34.0 pg [facility] MCHC (RBC) [Mass/Vol] 32.8 % 30.5 - 36.0 % [facility] MCV (RBC) [Entitic vol] 84.5 fL 77.0 - 99.0 fL [facility] Platelet mean volume (Bld) [Entitic vol] 10.8 fL 9.0 - 12.7 fL [facility] Platelets (Bld) [#/Vol] 395 10*3/uL 140 - 440 10*3/uL [facility] RBC (Bld) [#/Vol] 3.61 10*6/uL Low 3.80 - 5.20 10*6/uL [facility] WBC (Bld) [#/Vol] 20.6 10*3/uL High 3.6 - 10.7 10*3/uL [facility] CBC WITH AUTO DIFFERENTIALon 11-15-2024 Erythrocyte distribution width (RBC) [Ratio] 15.9 % High 11.5-15.0 [facility] Comment on above: Performed By: #### L [id number], [id number] ####Staff Field Engineer: LYDIA LION ([id number])[facility] ([address] Hematocrit (Bld) [Volume fraction] 30.5 % Low 35.0-47.0 [facility] Comment on above: Performed By: #### Naun [id number], [id number] ####Staff Field Engineer: LYDIA LION ([id number])[facility])[address] [place] [address] Hemoglobin (Bld) [Mass/Vol] 10.0 g/dL Low 11.7-16.0 [facility] Comment on above: Performed By: #### Naun [id number], [id number] ####Staff Field Engineer: LYDIA LION ([id number])[facility])[address] [place] [address] MCH (RBC) [Entitic mass] 27.7 pg Normal 26.0-34.0 [facility] Comment on above: Performed By: #### Naun KUMAR, [id number] ####Staff Field Engineer: LYDIA LION ([id number])[facility])[address] [place] [address] MCHC 32.8 % Normal 30.5-36.0 [facility] Comment on above: Performed By: #### Naun KUMAR, [id number] ####Staff Field Engineer: LYDIA LION ([id number])[facility])[address] [place] [address] MCV (RBC) [Entitic vol] 84.5 fL Normal 77.0-99.0 [facility] Comment on above: Performed By: #### Naun [id number], [id number] ####Staff Field Engineer: LYDIA LION ([id number])[facility])[address] [place] [address] Platelet mean volume (Bld) [Entitic vol] 10.8 fL Normal 9.0-12.7 [facility] Comment on above: Performed By: #### L [id number], [id number] ####Staff Field Engineer: LYDIA LION ([id number])[facility])[address] [place] [address] Platelets (Bld) [#/Vol] 395 10*3/uL Normal 140-440 [facility] Comment on above: Performed By: #### L [id number], [id number] ####Staff Field Engineer: LYDIA LION ([id number])[facility] ([facility])[address] [place] [address] RBC (Bld) [#/Vol] 3.61 10*6/uL Low 3.80-5.20 [facility] Comment on above: Performed By: #### Naun [id number], [id number] ####Staff Field Engineer: LYDIA LION ([id number])[facility] ([facility])[address] [place] [address] WBC (Bld) [#/Vol] 20.6 10*3/uL High 3.6-10.7 [facility] Comment on above: Performed By: #### Naun [id number], [id number] ####Staff Field Engineer: LYDIA LION ([id number])[facility] ([facility])[address] [place] [address] Laboratory - Chemistry and C hemistry - challengeon 11-15-2024 Magnesium [Mass/Vol] 1.9 mg/dL 1.6 - 2 .6 mg/dL [facility] Laboratory - Hematology and Cell countson 11-15-2024 Lymphocytes (Bld) [#/Vol] 5.8 10*3/uL High 1.0 - 4.3 10*3/uL [facility] Lymphocytes/100 WBC (Bld) 28 % 15 - 45 % [facility] Metamyelocytes (Bld) [#/Vol] 0.2 10*3/uL High NINF - 0.0 10*3/uL [facility] Metamyelocytes/100 WBC (Bld) 1 % High NINF - 0 % [facility] Monocytes (Bld) [#/Vol] 1.9 10*3/uL High 0.0 - 0.9 10*3/uL [facility] Monocytes/100 WBC (Bld) 9 % 5 - 13 % [facility] Neutrophils (Bld) [#/Vol] 12.8 10*3/uL High 1.8 - 7.5 10*3/uL [facility] Poikilocytosis LM Ql (Bld) Moderate Abnormal (none) [facility] RBC morphology finding Nom (Bld) abnormal [facility] Segmented neutrophils/100 WBC (Bld) 62 % 38 - 82 % [facility] Stomatocytes LM Ql (Bld) Slight Abnormal (none) [facility] Target cells LM Ql (Bld) Moderate Abnormal (none) [facility] MAGNESIUMon 11-15-2024 Magnesium [Mass/Vol] 1.9 mg/dL Normal 1.6-2.6 [facility] Comment on above: Result Comment: BRANDEN Rubio COMMENTS:Higher values can be expected in females during menses. Performed By: #### L AB15, [id number] ####Staff Field Engineer: LYDIA LION ([id number])[facility])[address] [place] [address] MANUAL DIFFERENTIAL (CELLAVI DAVON)on 11-15-2024 BAND NEUTROPHILS TOTAL PER COUNTED LEUKOCYTES BY MANUAL COUNT [facility] Comment on above: Performed By: #### L [id number], [id number] ####Staff Field Engineer: LYDIA LION ([id number])[facility] ([facility])[address] [place] [address] BASOPHILS TOTAL PER COUNTED LEUKOCYTES BY MANUAL COUNT [facility] Comment on above: Performed By: #### L [id number], [id number] ####Staff Field Engineer: LYDIA LION ([id number])[facility])[address] [place] [address] BLASTS TOTAL PER COUNTED LEUKOCYTES BY MANUAL COUNT [facility] Comment on above: Performed By: #### L [id number], [id number] ####Staff Field Engineer: LYDIA LION ([id number])[facility])[address] [place] [address] EOSINOPHILS TOTAL PER COUNTED LEUKOCYTES BY MANUAL COUNT [facility] Comment on above: Performed By: #### L [id number], [id number] ####Staff Field Engineer: LYDIA LION ([id number])[facility] ([facility])[address] [place] [address] [place] LYMPHOCYTES (10*3/UL) IN BLOOD-CELLAVISION 5.8 10*3/uL High 1.0-4.3 [facility] Comment on above: Performed By: #### L [id number], [id number] ####Staff Field Engineer: LYDIA LION ([id number])[facility] ([facility])[address] [place] [address] [place] LYMPHOCYTES TOTAL PER COUNTED LEUKOCYTES BY MANUAL COUNT 28 Normal [facility] Comment on above: Performed By: #### L [id number], [id number] ####Staff Field Engineer: LYDIA LION ([id number])[facility] ([facility])[address] [place] [address] [place] LYMPHOCYTES/100 LEUKOCYTES IN BLOOD-CELLAVISION 28 % Normal 15-45 [facility] Comment on above: Performed By: #### Naun [id number], [id number] ####Staff Field Engineer: LYDIA LION ([id number])[facility] ([facility])[address] [place] [address] [place] METAMYELOCYTES (10*3/UL) IN BLOOD-CELLAVISION 0.2 10*3/uL High <=0.0 [facility] Comment on above: Performed By: #### Naun [id number], [id number] ####Staff Field Engineer: LYDIA LION ([id number])[facility] ([facility])[address] [place] [address] [place] METAMYELOCYTES TOTAL PER COUNTED LEUKOCYTES BY MANUAL COUNT 1 Normal [facility] Comment on above: Performed By: #### L [id number], [id number] ####Staff Field Engineer: LYDIA LION ([id number])[facility] ([facility])[address] [place] [address] [place] METAMYELOCYTES/100 LEUKOCYTES IN BLOOD-CELLAVISION 1 % High <=0 [facility] Comment on above: Performed By: #### L [id number], [id number] ####Staff Field Engineer: LYDIA LION ([id number])[facility] ([facility])[address] [place] [address] [place] MONOCYTES (10*3/UL) IN BLOOD-CELLAVISION 1.9 10*3/uL High 0.0-0.9 [facility] Comment on above: Performed By: #### L [id number], [id number] ####Staff Field Engineer: LYDIA LION ([id number])[facility] ([facility])[address] [place] [address] [place] MONOCYTES TOTAL PER COUNTED LEUKOCYTES BY MANUAL COUNT 9 Normal [facility] Comment on above: Performed By: #### L [id number], [id number] ####Staff Field Engineer: LYDIA LION ([id number])[facility] ([facility])[address] [place] [address] [place] MONOCYTES/100 LEUKOCYTES IN BLOOD-ELLEN 9 % Normal 5-13 [facility] Comment on above: Performed By: #### L [id number], [id number] ####Staff Field Engineer: LYDIA LION ([id number])[facility] ([facility])[address] [place] [address] MYELOCYTES COUNTED BY MANUAL COUNT Normal [facility] Comment on above: Performed By: #### L [id number], [id number] ####Staff Field Engineer: LYDIA LION ([id number])[facility] ([facility])[address] [place] [address] [place] NEUTROPHILS TOTAL PER COUNTED LEUKOCYTES BY MANUAL COUNT 63 Normal [facility] Comment on above: Performed By: #### L [id number], [id number] ####Staff Field Engineer: LYDIA LION ([phone])[facility] ([facility])[address] [place] [address] [place] POIKILOCYTOSIS (PRESENCE) IN BLOOD BY LIGHT MICROSCOPY Moderate Abnormal (none) [facility] Comment on above: Performed By: #### L [id number], [id number] ####Staff Field Engineer: LYDIA LION ([phone])[facility] ([facility])[address] [place] [address] [place] PROMYELOCYTES TOTAL PER COUNTED LEUKOCYTES BY MANUAL COUNT Normal [facility] Comment on above: Performed By: #### L [id number], [id number] ####Staff Field Engineer: LYDIA LION ([id number])[facility] ([facility])[address] [place] [address] RBC MORPHOLOGY IN BLOOD abnormal Normal [facility] Comment on above: Performed By: #### L [id number], [id number] ####Staff Field Engineer: LYDIA LION ([id number])[facility])[address] [place] [address] SEGMENTED NEUTROPHILS (10*3/UL) IN BLOOD-CELLAVISION 12.8 10*3/uL High 1.8-7.5 [facility] Comment on above: Performed By: #### L [id number], [id number] ####Staff Field Engineer: LYDIA LION ([id number])[facility] ([facility])[address] [place] [address] SEGMENTED NEUTROPHILS/100 LEUKOCYTES-CE 62 % Normal 38-82 [facility] Comment on above: Performed By: #### L [id number], [id number] ####Staff Field Engineer: LYDIA LION ([id number])[facility] ([facility])[address] [place] [address] [place] STOMATOCYTES IN BLOOD BY LIGHT MICROSCOPY Slight Abnormal (none) [facility] Comment on above: Performed By: #### L [id number], [id number] ####Staff Field Engineer: LYDIA LION ([id number])[facility] ([facility])[address] [place] [address] TARGET CELLS IN BLOOD BY LIGHT MICROSCOPY Moderate Abnormal (none) [facility] Comment on above: Performed By: #### L [id number], [id number] ####Staff Field Engineer: LYDIA LION ([phone])[facility])[address] [place] [address] UNCLASSIFIED CELLS TOTAL PER COUNTED LEUKOCYTES BY MANUAL COUNT Normal [facility] Comment on above: Performed By: #### L [id number], [id number] ####Staff Field Engineer: LYDIA LION ([id number])[facility] ([facility])[address] [place] [address] VARIANT LYMPHOCYTES TOTAL PER COUNTED LEUKOCYTES BY MANUAL COUNT Normal [facility] Comment on above: Performed By: #### L [id number], [id number] ####Staff Field Engineer: LYDIA LION ([id number])[facility])[address] [place] [address] Magnesium [Mass/Vol]on 11-15 Interpretation and review of laboratory results Normal [facility] Higher values can be expected in females during menses. [facility] No Panel Informationon 11-15 Atypical Lymphocytes Manual [facility] Bands Manual [facility] Basophils Manual [facility]asts [facility] E[facility] Manual [facility] Interpretation and review of laboratory results Abnormal [facility] Lymphocytes Manual 28 [facility] Metamyelocytes Manual 1 [facility] Monocytes Manual 9 [facility] alth Myelocytes Manual [facility] ealth Neutrophils Manual 63 [facility] Promyelocytes Manual [facility] Unclassified Cells, Manual [facility] Progress Noteon 11-15-2024 Progress Note Normal [facility] 30on 11-14-2024 30 Normal [facility] 30 Normal [facility] 30 Normal [facility] [id number] 11-14-2024 [id number] Normal [facility] BASIC METABOLIC PANELon Anion gap [Moles/Vol] 5 mmol/L Normal 3-13 [facility] Comment on above: Performed By: #### L AB15, [id number] ####Staff Field Engineer: LYDIA LION ([id number])[facility] ([facility])[address] [place] [address] Calcium [Mass/Vol] 8.1 mg/dL Low 8.8-10.0 [facility] Comment on above: Performed By: #### L AB15, [id number] ####Staff Field Engineer: LYDIA LION ([id number])[facility])[address] [place] [address] Chloride [Moles/Vol] 101 mmol/L Normal 98-107 [facility] Comment on above: Performed By: #### L AB15, [id number] ####Staff Field Engineer: LYDIA LION ([id number])[facility])[address] [place] [address] CO2 [Moles/Vol] 34 mmol/L High 23-31 [facility] Comment on above: Performed By: #### L AB15, [id number] ####Staff Field Engineer: LYDIA LION ([id number])[facility])[address] [place] [address] Creatinine [Mass/Vol] 0.66 mg/dL Normal 0.57-1.11 [facility] Comment on above: Performed By: #### L AB15, [id number] ####Staff Field Engineer: LYDIA LION ([id number])[facility])[address] [place] [address] GLOMERULAR FILTRATION RATE ML/MIN/1.73 SQ M.PREDICTED 86.6 mL/min/1.73m*2 Normal >60.0 [facility] Comment on above: Result Comment: Calc ulation based on the Chronic Kidney Disease Epidemiology Collaboration (CKD-EPI) equation refit without adjustment for race Performed By: #### L AB15, [id number] ####Staff Field Engineer: LYDIA LION ([id number])[facility])[address] [place] [address] Glucose [Mass/Vol] 95 mg/dL Normal 82-115 [facility] Comment on above: Performed By: #### L AB15, [id number] ####Staff Field Engineer: LYDIA LION ([id number])[facility])[address] [place] [address] Potassium [Moles/Vol] 2.9 mmol/L Low 3.5-5.1 [facility] Comment on above: Result Comment: [facility] potassium values may be up to 0.5 mmol/L lower than serum values. Performed By: #### L AB15, [id number] ####Staff Field Engineer: LYDIA LION ([phone])[facility])[address] [place] [address] Sodium [Moles/Vol] 140 mmol/L Normal 136-145 [facility] Comment on above: Performed By: #### L AB15, [id number] ####Staff Field Engineer: LYDIA LION ([id number])[facility])[address] [place] [address] Urea nitrogen [Mass/Vol] 9 mg/dL Normal 9-23 [facility] Comment on above: Performed By: #### L AB15, [id number] ####Staff Field Engineer: LYDIA LION ([phone])[facility] ([facility])[address] [place] [address] Basic metabolic 1998 panelon 11-14-2024 Anion gap [Moles/Vol] 5 mmol/L 3 - 13 mmol/L [facility] Calcium [Mass/Vol] 8.1 mg/dL Low 8.8 - 10. 0 mg/dL [facility] Chloride [Moles/Vol] 101 mmol/L 98 - 10 7 mmol/L [facility] CO2 [Moles/Vol] 34 mmol/L High 23 - 31 mmol/L [facility] Creatinine [Mass/Vol] 0.66 mg/dL 0.57 - 1.11 mg/dL [facility] GFR/1.73 sq M.predicted (S/P/Bld) [Vol rate/Area] 86.6 mL/min - PINF [facility] Comment on above: Calculation based on the Chronic Kidney Disease Epidemiology Collaboration (CKD-EPI) equation refit without adjustment for race Glucose [Mass/Vol] 95 mg/dL 82 - 115 mg/dL [facility] Interpretation and review of laboratory results Abnormal [facility] Potassium [Moles/Vol] 2.9 mmol/L Low 3.5 - 5.1 mmol/L [facility] Comment on above: Plasma potassium chandler ues may be up to 0.5 mmol/L lower than serum values. Sodium [Moles/Vol] 140 mmol/L 136 - 145 mmol/L [facility] Urea nitrogen [Mass/Vol] 9 mg/dL 9 - 23 mg/dL [facility] CBC W Auto Differential pane l (Bld)on 11-14-2024 Erythrocyte distribution width (RBC) [Ratio] 15.9 % High 11.5 - 15.0 % [facility] Hematocrit (Bld) [Volume fraction] 28 % Low 35.0 - 47.0 % [facility] Hemoglobin (Bld) [Mass/Vol] 9.3 g/dL Low 11.7 - 16.0 g/dL [facility] Interpretation and review of laboratory results Abnormal [facility] MCH (RBC) [Entitic mass] 27.8 pg 26.0 - 34.0 pg [facility] MCHC (RBC) [Mass/Vol] 33.2 % 30.5 - 36.0 % [facility] MCV (RBC) [Entitic vol] 83.8 fL 77.0 - 99.0 fL [facility] Platelet mean volume (Bld) [Entitic vol] 10.7 fL 9.0 - 12.7 fL [facility] Platelets (Bld) [#/Vol] 334 10*3/uL 140 - 440 10*3/uL [facility] RBC (Bld) [#/Vol] 3.34 10*6/uL Low 3.80 - 5.20 10*6/uL [facility] WBC (Bld) [#/Vol] 17.8 10*3/uL High 3.6 - 10.7 10*3/uL [facility] CBC WITH AUTO DIFFERENTIALon 11-14-2024 Erythrocyte distribution width (RBC) [Ratio] 15.9 % High 11.5-15.0 [facility] Comment on above: Performed By: #### Naun [id number], [id number] ####Staff Field Engineer: LYDIA [id number])[address] Hematocrit (Bld) [Volume fraction] 28.0 % Low 35.0-47.0 [facility] Comment on above: Performed By: #### Naun [id number], [id number] ####Staff Field Engineer: LYDIA [id number])[address] Hemoglobin (Bld) [Mass/Vol] 9.3 g/dL Low 11.7-16.0 [facility] Comment on above: Performed By: #### L [id number], [id number] ####Staff Field Engineer: LYDIA [id number])[facility])[address] [place] [address] MCH (RBC) [Entitic mass] 27.8 pg Normal 26.0-34.0 [facility] Comment on above: Performed By: #### Naun [id number], [id number] ####Staff Field Engineer: LYDIA LION ([id number])[facility])[address] [place] [address] MCHC 33.2 % Normal 30.5-36.0 [facility] Comment on above: Performed By: #### Naun [id number], [id number] ####Staff Field Engineer: LYDIA LION ([id number])[facility])[address] [place] [address] MCV (RBC) [Entitic vol] 83.8 fL Normal 77.0-99.0 [facility] Comment on above: Performed By: #### Naun [id number], [id number] ####Staff Field Engineer: LYDIA LION ([id number])[facility] ([facility])[address] [place] [address] Platelet mean volume (Bld) [Entitic vol] 10.7 fL Normal 9.0-12.7 [facility] Comment on above: Performed By: #### Naun [id number], [id number] ####Staff Field Engineer: LYDIA LION ([id number])[facility])[address] [place] [address] Platelets (Bld) [#/Vol] 334 10*3/uL Normal 140-440 [facility] Comment on above: Performed By: #### L [id number], [id number] ####Staff Field Engineer: LYDIA LION ([id number])[facility])[address] [place] [address] RBC (Bld) [#/Vol] 3.34 10*6/uL Low 3.80-5.20 [facility] Comment on above: Performed By: #### Naun [id number], [id number] ####Staff Field Engineer: LYDIA [id number])[facility] ([facility])[address] [place] [address] WBC (Bld) [#/Vol] 17.8 10*3/uL High 3.6-10.7 [facility] Comment on above: Performed By: #### L [id number], [id number] ####Staff Field Engineer: LYDIA LION ([id number])[facility] ([facility])[address] [place] [address] Laboratory - Chemistry and C hemistry - challengeon 11-14-2024 Magnesium [Mass/Vol] 1.7 mg/dL 1.6 - 2 .6 mg/dL [facility] - Hematology and Cell countson 11-14-2024 Anisocytosis Ql (Bld) Moderate Abnormal (none) [facility] Lymphocytes (Bld) [#/Vol] 4.6 10*3/uL High 1.0 - 4.3 10*3/uL [facility] Lymphocytes/100 WBC (Bld) 26 % 15 - 45 % [facility] Macrocytes Ql (Bld) Moderate Abnormal (none) [facility] Metamyelocytes (Bld) [#/Vol] 0.4 10*3/uL High NINF - 0.0 10*3/uL [facility] Metamyelocytes/100 WBC (Bld) 2 % High NINF - 0 % [facility] Monocytes (Bld) [#/Vol] 2 10*3/uL High 0.0 - 0.9 10*3/uL [facility] Monocytes/100 WBC (Bld) 11 % 5 - 13 % [facility] Myelocytes (Bld) [#/Vol] 0.2 10*3/uL High NINF - 0.0 10*3/uL [facility] Myelocytes/100 WBC (Bld) 1 % High NINF - 0 % [facility] Neutrophils (Bld) [#/Vol] 10.5 10*3/uL High 1.8 - 7.5 10*3/uL [facility] Poikilocytosis LM Ql (Bld) Moderate Abnormal (none) [facility] RBC morphology finding Nom (Bld) abnormal [facility] Segmented neutrophils/100 WBC (Bld) 59 % 38 - 82 % [facility] Stomatocytes LM Ql (Bld) Moderate Abnormal (none) [facility] Target cells LM Ql (Bld) Moderate Abnormal (none) [facility] Variant lymphocytes (Bld) [#/Vol] 0.2 10*3/uL High NINF - 0.0 10*3/uL [facility] Variant lymphocytes/100 WBC (Bld) 1 % High NINF - 0 % [facility] MAGNESIUMon 11-14-2024 Magnesium [Mass/Vol] 1.7 mg/dL Normal 1.6-2.6 [facility] Comment on above: Result Comment: BRANDEN Rubio COMMENTS:Higher values can be expected in females during menses. Performed By: #### L [id number], [id number] ####Staff Field Engineer: LYDIA LION ([phone])[facility])[address] [place] [address] MANUAL DIFFERENTIAL (CELLAVI DAVON)on 11-14-2024 ANISOCYTOSIS PRESENCE IN BLOOD BY LIGHT MICROSCOPY Moderate Abnormal (none) [facility] Comment on above: Performed By: #### L [id number], [id number] ####Staff Field Engineer: LYDIA LION ([phone])[facility] ([facility])[address] [place] [address] BAND NEUTROPHILS TOTAL PER COUNTED LEUKOCYTES BY MANUAL COUNT [facility] Comment on above: Performed By: #### L [id number], [id number] ####Staff Field Engineer: LYDIA LION ([id number])[facility] ([facility])[address] [place] [address] BASOPHILS TOTAL PER COUNTED LEUKOCYTES BY MANUAL COUNT [facility] Comment on above: Performed By: #### L [id number], [id number] ####Staff Field Engineer: LYDIA LION ([id number])[facility] ([facility])[address] [place] [address] BLASTS TOTAL PER COUNTED LEUKOCYTES BY MANUAL COUNT [facility] Comment on above: Performed By: #### L [id number], [id number] ####Staff Field Engineer: LYDIA LION ([id number])[facility] ([facility])[address] [place] [address] EOSINOPHILS TOTAL PER COUNTED LEUKOCYTES BY MANUAL COUNT [facility] Comment on above: Performed By: #### L [id number], [id number] ####Staff Field Engineer: LYDIA LION ([id number])[facility])[address] [place] [address] LYMPHOCYTE VARIANT/100 LEUKOCYTES IN BLOOD- CELLAVISION 1 % High <=0 [facility] Comment on above: Performed By: #### L [id number], [id number] ####Staff Field Engineer: LYDIA LION ([id number])[facility] ([facility])[address] [place] [address] [place] LYMPHOCYTES (10*3/UL) IN BLOOD-CELLAVISION 4.6 10*3/uL High 1.0-4.3 [facility] Comment on above: Performed By: #### Naun [id number], [id number] ####Staff Field Engineer: LYDIA LION ([id number])[facility] ([facility])[address] [place] [address] [place] LYMPHOCYTES TOTAL PER COUNTED LEUKOCYTES BY MANUAL COUNT 26 Normal [facility] Comment on above: Performed By: #### Naun [id number], [id number] ####Staff Field Engineer: LYDIA LION ([id number])[facility])[address] [place] [address] [place] LYMPHOCYTES/100 LEUKOCYTES IN BLOOD-CELLAVISION 26 % Normal 15-45 [facility] Comment on above: Performed By: #### Naun [id number], [id number] ####Staff Field Engineer: LYDIA LION ([id number])[facility])[address] [place] [address] [place] MACROCYTES (PRESENCE) IN BLOOD BY LIGHT MICROSCOPY Moderate Abnormal (none) [facility] Comment on above: Performed By: #### L [id number], [id number] ####Staff Field Engineer: LYDIA LION ([id number])[facility])[address] [place] [address] [place] METAMYELOCYTES (10*3/UL) IN BLOOD-CELLAVISION 0.4 10*3/uL High <=0.0 [facility] Comment on above: Performed By: #### L [id number], [id number] ####Staff Field Engineer: LYDIA LION ([phone])[facility])[address] [place] [address] [place] METAMYELOCYTES TOTAL PER COUNTED LEUKOCYTES BY MANUAL COUNT 2 Normal [facility] Comment on above: Performed By: #### L [id number], [id number] ####Staff Field Engineer: LYDIA LION ([id number])[facility] ([facility])[address] [place] [address] [place] METAMYELOCYTES/100 LEUKOCYTES IN BLOOD-CELLAVISION 2 % High <=0 [facility] Comment on above: Performed By: #### L [id number], [id number] ####Staff Field Engineer: LYDIA LION ([id number])[facility])[address] [place] [address] [place] MONOCYTES (10*3/UL) IN BLOOD-CELLAVISION 2.0 10*3/uL High 0.0-0.9 [facility] Comment on above: Performed By: #### Naun [id number], [id number] ####Staff Field Engineer: LYDIA LION ([id number])[facility] ([facility])[address] [place] [address] [place] MONOCYTES TOTAL PER COUNTED LEUKOCYTES BY MANUAL COUNT 11 Normal [facility] Comment on above: Performed By: #### L [id number], [id number] ####Staff Field Engineer: LYDIA LION ([id number])[facility] ([facility])[address] [place] [address] [place] MONOCYTES/100 LEUKOCYTES IN BLOOD-ELLEN 11 % Normal 5-13 [facility] Comment on above: Performed By: #### L [id number], [id number] ####Staff Field Engineer: LYDIA LION ([id number])[facility] ([facility])[address] [place] [address] [place] MYELOCYTES (10*3/UL) IN BLOOD-CELLAVISION 0.2 10*3/uL High <=0.0 [facility] Comment on above: Performed By: #### L [id number], [id number] ####Staff Field Engineer: LYDIA LION ([id number])[facility] ([facility])[address] [place] [address] [place] MYELOCYTES COUNTED BY MANUAL COUNT 1 Normal [facility] Comment on above: Performed By: #### L [id number], [id number] ####Staff Field Engineer: LYDIA LION ([id number])[facility] ([facility])[address] [place] [address] [place] MYELOCYTES/100 LEUKOCYTES IN BLOOD-CELLAVISION 1 % High <=0 [facility] Comment on above: Performed By: #### L [id number], [id number] ####Staff Field Engineer: LYDIA LION ([id number])[facility] ([facility])[address] [place] [address] NEUTROPHILS TOTAL PER COUNTED LEUKOCYTES BY MANUAL COUNT 59 Normal [facility] Comment on above: Performed By: #### L [id number], [id number] ####Staff Field Engineer: LYDIA LION ([id number])[facility] ([facility])[address] [place] [address] POIKILOCYTOSIS (PRESENCE) IN BLOOD BY LIGHT MICROSCOPY Moderate Abnormal (none) [facility] Comment on above: Performed By: #### L [id number], [id number] ####Staff Field Engineer: LYDIA LION ([id number])[facility] ([facility])[address] [place] [address] [place] PROMYELOCYTES TOTAL PER COUNTED LEUKOCYTES BY MANUAL COUNT Normal [facility] Comment on above: Performed By: #### L [id number], [id number] ####Staff Field Engineer: LYDIA LION ([id number])[facility])[address] [place] [address] [place] RBC MORPHOLOGY IN BLOOD abnormal Normal [facility] Comment on above: Performed By: #### L [id number], [id number] ####Staff Field Engineer: LYDIA LION ([id number])[facility] ([facility])[address] [place] [address] [place] SEGMENTED NEUTROPHILS (10*3/UL) IN BLOOD-CELLAVISION 10.5 10*3/uL High 1.8-7.5 [facility] Comment on above: Performed By: #### L [id number], [id number] ####Staff Field Engineer: LYDIA LION ([id number])[facility] ([facility])[address] [place] [address] [place] SEGMENTED NEUTROPHILS/100 LEUKOCYTES-CE 59 % Normal 38-82 [facility] Comment on above: Performed By: #### L [id number], [id number] ####Staff Field Engineer: LYDIA LION ([id number])[facility])[address] [place] [address] STOMATOCYTES IN BLOOD BY LIGHT MICROSCOPY Moderate Abnormal (none) [facility] Comment on above: Performed By: #### Naun [id number], [id number] ####Staff Field Engineer: LYDIA LION ([id number])[facility] ([facility])[address] [place] [address] TARGET CELLS IN BLOOD BY LIGHT MICROSCOPY Moderate Abnormal (none) [facility] Comment on above: Performed By: #### L [id number], [id number] ####Staff Field Engineer: LYDIA LION ([id number])[facility])[address] [place] [address] UNCLASSIFIED CELLS TOTAL PER COUNTED LEUKOCYTES BY MANUAL COUNT Normal [facility] Comment on above: Performed By: #### L [id number], [id number] ####Staff Field Engineer: LYDIA LION ([id number])[facility] ([facility])[address] [place] [address] [place] VARIANT LYMPHOCYTES (10*3/UL) IN BLOOD-CELLAVISION 0.2 10*3/uL High <=0.0 [facility] Comment on above: Performed By: #### L [id number], [id number] ####Staff Field Engineer: LYDIA LION ([id number])[facility] ([facility])[address] [place] [address] [place] VARIANT LYMPHOCYTES TOTAL PER COUNTED LEUKOCYTES BY MANUAL COUNT 1 Normal [facility] Comment on above: Performed By: #### L [id number], [id number] ####Staff Field Engineer: LYDIA LION ([id number])[facility])[address] [place] [address] Magnesium [Mass/Vol]on 11-14 Interpretation and review of laboratory results Normal [facility] Higher values can be expected in females during menses. [facility] No Panel Informationon 11-14 Atypical Lymphocytes Manual 1 [facility] Bands Manual [facility] Basophils Manual [facility] Blasts Manual [facility] Eosinophils Manual [facility] Interpretation and review of laboratory results Abnormal [facility] Lymphocytes Manual 26 [facility] Metamyelocytes Manual 2 [facility] Monocytes Manual 11 [facility] Myelocytes Manual 1 [facility] ealth Neutrophils Manual 59 [facility] Promyelocytes Manual [facility] Unclassified Cells, Manual [facility] Progress Noteon 11-14-2024 Progress Note Normal [facility] Progress Note Normal [facility] 30on 11-13-2024 30 Normal [facility] 30 Normal [facility] BASIC METABOLIC PANELon Anion gap [Moles/Vol] 5 mmol/L Normal 3-13 [facility] Comment on above: Performed By: #### L [id number], LAB15 ####Staff Field Engineer: LYDIA LION ([id number])[facility] ([facility])[address] [place] [address] Calcium [Mass/Vol] 7.9 mg/dL Low 8.8-10.0 [facility] Comment on above: Performed By: #### L AB103, LAB15 ####Staff Field Engineer: LYDIA LION ([id number])[facility])[address] [place] [address] Chloride [Moles/Vol] 104 mmol/L Normal 98-107 [facility] Comment on above: Performed By: #### L AB103, LAB15 ####Staff Field Engineer: LYDIA LION ([id number])[facility] [place] [address] [place] CO2 [Moles/Vol] 32 mmol/L High 23-31 [facility] Comment on above: Performed By: #### L AB103, LAB15 ####Staff Field Engineer: LYDIA LION ([id number])[facility] ([facility])[address] [place] [address] Creatinine [Mass/Vol] 0.61 mg/dL Normal 0.57-1.11 [facility] Comment on above: Performed By: #### L AB103, LAB15 ####Staff Field Engineer: LYDIA LION ([id number])[facility])[address] [place] [address] GLOMERULAR FILTRATION RATE ML/MIN/1.73 SQ M.PREDICTED 88.3 mL/min/1.73m*2 Normal >60.0 [facility] Comment on above: Result Comment: Calc ulation based on the Chronic Kidney Disease Epidemiology Collaboration (CKD-EPI) equation refit without adjustment for race Performed By: #### L AB103, LAB15 ####Staff Field Engineer: LYDIA LION ([id number])[facility] ([facility])[address] [place] [address] Glucose [Mass/Vol] 97 mg/dL Normal 82-115 [facility] Comment on above: Performed By: #### L AB103, LAB15 ####Staff Field Engineer: LYDIA LION ([id number])[facility])[address] [place] [address] Potassium [Moles/Vol] 3.2 mmol/L Low 3.5-5.1 [facility] Comment on above: Result Comment: [facility] potassium values may be up to 0.5 mmol/L lower than serum values. Performed By: #### L AB103, LAB15 ####Staff Field Engineer: LYDIA LION ([id number])[facility])[address] [place] [address] Sodium [Moles/Vol] 141 mmol/L Normal 136-145 [facility] Comment on above: Performed By: #### L AB103, LAB15 ####Staff Field Engineer: LYDIA LION ([id number])[facility] ([facility])[address] [place] [address] Urea nitrogen [Mass/Vol] 11 mg/dL Normal 9-23 [facility] [employer] Comment on above: Performed By: #### L AB103, LAB15 ####Staff Field Engineer: LYDIA LION ([id number])[facility] ([facility])[address] [place] [address] Bacteria identified Cx Nom ( Bld)on 11-13-2024 Interpretation and review of laboratory results Normal [facility] Blood Collection Sit e: Left Hand [facility] Blood Collection Sit e: Right Hand [facility] Basic metabolic 1998 panelon 11-13-2024 Anion gap [Moles/Vol] 5 mmol/L 3 - 13 mmol/L [facility] Calcium [Mass/Vol] 7.9 mg/dL Low 8.8 - 10. 0 mg/dL [facility] Chloride [Moles/Vol] 104 mmol/L 98 - 10 7 mmol/L [facility] CO2 [Moles/Vol] 32 mmol/L High 23 - 31 mmol/L [facility] Creatinine [Mass/Vol] 0.61 mg/dL 0.57 - 1.11 mg/dL [facility] GFR/1.73 sq M.predicted (S/P/Bld) [Vol rate/Area] 88.3 mL/min - PINF [facility] Comment on above: Calculation based on the Chronic Kidney Disease Epidemiology Collaboration (CKD-EPI) equation refit without adjustment for race Glucose [Mass/Vol] 97 mg/dL 82 - 115 mg/dL [facility] Interpretation and review of laboratory results Abnormal [facility] Potassium [Moles/Vol] 3.2 mmol/L Low 3.5 - 5.1 mmol/L [facility] Comment on above: Plasma potassium chandler ues may be up to 0.5 mmol/L lower than serum values. Sodium [Moles/Vol] 141 mmol/L 136 - 145 mmol/L [facility] Urea nitrogen [Mass/Vol] 11 mg/dL 9 - 23 mg/dL [facility] CBC W Auto Differential pane l (Bld)Ordered By: Sugar Sánchez on 11-13-2024 Erythrocyte distribution width (RBC) [Ratio] 15.8 % High 11.5 - 15.0 % [facility] Hematocrit (Bld) [Volume fraction] 27.7 % Low 35.0 - 47.0 % [facility] Hemoglobin (Bld) [Mass/Vol] 9.2 g/dL Low 11.7 - 16.0 g/dL [facility] MCH (RBC) [Entitic mass] 27.8 pg 26.0 - 34.0 pg [facility] MCHC (RBC) [Mass/Vol] 33.2 % 30.5 - 36.0 % [facility] MCV (RBC) [Entitic vol] 83.7 fL 77.0 - 99.0 fL [facility] Platelet mean volume (Bld) [Entitic vol] 11 fL 9.0 - 12.7 fL [facility] Platelets (Bld) [#/Vol] 312 10*3/uL 140 - 440 10*3/uL [facility] RBC (Bld) [#/Vol] 3.31 10*6/uL Low 3.80 - 5.20 10*6/uL [facility] WBC (Bld) [#/Vol] 20.2 10*3/uL High 3.6 - 10.7 10*3/uL [facility] CBC WITH AUTO DIFFERENTIALon 11-13-2024 Erythrocyte distribution width (RBC) [Ratio] 15.8 % High 11.5-15.0 [facility] Comment on above: Performed By: #### L [id number], [id number] ####Staff Field Engineer: LYDIA LION ([id number])[address] Hematocrit (Bld) [Volume fraction] 27.7 % Low 35.0-47.0 [facility] Comment on above: Performed By: #### L [id number], [id number] ####Staff Field Engineer: LYDIA LION ([id number])[address] Hemoglobin (Bld) [Mass/Vol] 9.2 g/dL Low 11.7-16.0 [facility] Comment on above: Performed By: #### L [id number], [id number] ####Staff Field Engineer: LYDIA LION ([id number])[facility] ([facility])[address] [place] [address] MCH (RBC) [Entitic mass] 27.8 pg Normal 26.0-34.0 [facility] Comment on above: Performed By: #### L [id number], [id number] ####Staff Field Engineer: LYDIA LION ([id number])[facility])[address] [place] [address] MCHC 33.2 % Normal 30.5-36.0 [facility] Comment on above: Performed By: #### L [id number], [id number] ####Staff Field Engineer: LYDIA LION ([id number])[facility])[address] [place] [address] MCV (RBC) [Entitic vol] 83.7 fL Normal 77.0-99.0 [facility] Comment on above: Performed By: #### L [id number], [id number] ####Staff Field Engineer: LYDIA LION ([id number])[facility] ([facility])[address] [place] [address] Platelet mean volume (Bld) [Entitic vol] 11.0 fL Normal 9.0-12.7 [facility] Comment on above: Performed By: #### L [id number], [id number] ####Staff Field Engineer: LYDIA LION ([id number])[facility])[address] [place] [address] Platelets (Bld) [#/Vol] 312 10*3/uL Normal 140-440 [facility] Comment on above: Performed By: #### L [id number], [id number] ####Staff Field Engineer: LYDIA LION ([id number])[facility])[address] [place] [address] RBC (Bld) [#/Vol] 3.31 10*6/uL Low 3.80-5.20 [facility] Comment on above: Performed By: #### L [id number], [id number] ####Staff Field Engineer: LYDIA LION ([id number])[facility] ([facility])[address] [place] [address] WBC (Bld) [#/Vol] 20.2 10*3/uL High 3.6-10.7 [facility] [employer] [facility] [facility] Comment on above: Performed By: #### L [id number], [id number] ####Staff Field Engineer: LYDIA LION ([id number])[facility] ([facility])[address] [place] [address] Laboratory - Chemistry and C hemistry - challengeon 11-13-2024 Magnesium [Mass/Vol] 1.7 mg/dL 1.6 - 2 .6 mg/dL [facility] Laboratory - Hematology and Cell countson 11-13-2024 Basophils (Bld) [#/Vol] 0.2 10*3/uL 0.0 - 0.2 10*3/uL [facility] Basophils/100 WBC (Bld) 1 % 0 - 2 % [facility] Lymphocytes (Bld) [#/Vol] 5.3 10*3/uL High 1.0 - 4.3 10*3/uL [facility] Lymphocytes/100 WBC (Bld) 26 % 15 - 45 % [facility] Metamyelocytes (Bld) [#/Vol] 0.2 10*3/uL High NINF - 0.0 10*3/uL [facility] Metamyelocytes/100 WBC (Bld) 1 % High NINF - 0 % [facility] Monocytes (Bld) [#/Vol] 3.6 10*3/uL High 0.0 - 0.9 10*3/uL [facility] Monocytes/100 WBC (Bld) 18 % High 5 - 13 % [facility] Neutrophils (Bld) [#/Vol] 11.1 10*3/uL High 1.8 - 7.5 10*3/uL [facility] Poikilocytosis LM Ql (Bld) Slight Abnormal (none) [facility] RBC morphology finding Nom (Bld) abnormal [facility] Segmented neutrophils/100 WBC (Bld) 55 % 38 - 82 % [facility] Target cells LM Ql (Bld) Moderate Abnormal (none) [facility] - Microbiology an d Antimicrobial susceptibilityon 11-13-2024 Bacteria identified Cx Nom (Bld) No growth at 5 days [facility] MAGNESIUMon 11-13-2024 Magnesium [Mass/Vol] 1.7 mg/dL Normal 1.6-2.6 [facility] Comment on above: Result Comment: BRANDEN R COMMENTS:Higher values can be expected in females during menses. Performed By: #### L AB103, LAB15 ####Staff Field Engineer: LYDIA LION ([id number])[facility] ([facility])[address] [place] [address] MANUAL DIFFERENTIAL (CELLAVI DAVON)on 11-13-2024 BAND NEUTROPHILS TOTAL PER COUNTED LEUKOCYTES BY MANUAL COUNT [facility] Comment on above: Performed By: #### L [id number], [id number] ####Staff Field Engineer: LYDIA LION ([id number])[facility] ([facility])[address] [place] [address] [place] BASOPHILS (10*3/UL) IN BLOOD-CELLAVISION 0.2 10*3/uL Normal 0.0-0.2 [facility] Comment on above: Performed By: #### L [id number] ####Staff Field Engineer: LYDIA LION ([id number])[facility] ([facility])[address] [place] [address] [place] BASOPHILS TOTAL PER COUNTED LEUKOCYTES BY MANUAL COUNT 1 Normal [facility] Comment on above: Performed By: #### L [id number], [id number] ####Staff Field Engineer: LYDIA LION ([id number])[facility] ([facility])[address] [place] [address] [place] BASOPHILS/100 LEUKOCYTES IN BLOOD-CELLAVISION 1 % Normal 0-2 [facility] Comment on above: Performed By: #### L [id number], [id number] ####Staff Field Engineer: LYDIA LION ([id number])[facility])[address] [place] [address] [place] BLASTS TOTAL PER COUNTED LEUKOCYTES BY MANUAL COUNT [facility] Comment on above: Performed By: #### L [id number], [id number] ####Staff Field Engineer: LYDIA LION ([id number])[facility] ([facility])[address] [place] [address] [place] EOSINOPHILS TOTAL PER COUNTED LEUKOCYTES BY MANUAL COUNT Normal [facility] Comment on above: Performed By: #### L [id number], [id number] ####Staff Field Engineer: LYDIA LION ([id number])[facility] ([facility])[address] [place] [address] [place] LYMPHOCYTES (10*3/UL) IN BLOOD-CELLAVISION 5.3 10*3/uL High 1.0-4.3 [facility] Comment on above: Performed By: #### L [id number], [id number] ####Staff Field Engineer: LYDIA LION ([id number])[facility] ([facility])[address] [place] [address] [place] LYMPHOCYTES TOTAL PER COUNTED LEUKOCYTES BY MANUAL COUNT 26 Normal [facility] Comment on above: Performed By: #### L [id number], [id number] ####Staff Field Engineer: LYDIA LION ([id number])[facility] ([facility])[address] [place] [address] [place] LYMPHOCYTES/100 LEUKOCYTES IN BLOOD-CELLAVISION 26 % Normal 15-45 [facility] Comment on above: Performed By: #### L [id number], [id number] ####Staff Field Engineer: LYDIA LION ([id number])[facility] ([facility])[address] [place] [address] [place] METAMYELOCYTES (10*3/UL) IN BLOOD-CELLAVISION 0.2 10*3/uL High <=0.0 [facility] Comment on above: Performed By: #### L [id number], [id number] ####Staff Field Engineer: LYDIA LION ([id number])[facility] ([facility])[address] [place] [address] [place] METAMYELOCYTES TOTAL PER COUNTED LEUKOCYTES BY MANUAL COUNT 1 Normal [facility] Comment on above: Performed By: #### L [id number], [id number] ####Staff Field Engineer: LYDIA [id number])[facility] ([facility])[address] [place] [address] [place] METAMYELOCYTES/100 LEUKOCYTES IN BLOOD-CELLAVISION 1 % High <=0 [facility] Comment on above: Performed By: #### L [id number], [id number] ####Staff Field Engineer: LYDIA LION ([id number])[facility] ([facility])[address] [place] [address] [place] MONOCYTES (10*3/UL) IN BLOOD-CELLAVISION 3.6 10*3/uL High 0.0-0.9 [facility] Comment on above: Performed By: #### L [id number], [id number] ####Staff Field Engineer: LYDIA LION ([id number])[facility] ([facility])[address] [place] [address] MONOCYTES TOTAL PER COUNTED LEUKOCYTES BY MANUAL COUNT 18 Normal [facility] Comment on above: Performed By: #### L [id number], [id number] ####Staff Field Engineer: LYDIA LION ([id number])[facility] ([facility])[address] [place] [address] [place] MONOCYTES/100 LEUKOCYTES IN BLOOD-ELLEN 18 % High 5-13 [facility] Comment on above: Performed By: #### L [id number], [id number] ####Staff Field Engineer: LYDIA LION ([id number])[facility] ([facility])[address] [place] [address] MYELOCYTES COUNTED BY MANUAL COUNT [facility] Comment on above: Performed By: #### L [id number], [id number] ####Staff Field Engineer: LYDIA LION ([id number])[facility] ([facility])[address] [place] [address] [place] NEUTROPHILS TOTAL PER COUNTED LEUKOCYTES BY MANUAL COUNT 55 [facility] Comment on above: Performed By: #### L [id number], [id number] ####Staff Field Engineer: LYDIA LION ([id number])[facility] ([facility])[address] [place] [address] [place] POIKILOCYTOSIS (PRESENCE) IN BLOOD BY LIGHT MICROSCOPY Slight Abnormal (none) [facility] Comment on above: Performed By: #### L [id number], [id number] ####Staff Field Engineer: LYDIA LION ([phone])[facility] ([facility])[address] [place] [address] PROMYELOCYTES TOTAL PER COUNTED LEUKOCYTES BY MANUAL COUNT Normal [facility] Comment on above: Performed By: #### L [id number], [id number] ####Staff Field Engineer: LYDIA LION ([id number])[facility] ([facility])[address] [place] [address] RBC MORPHOLOGY IN BLOOD abnormal Normal [facility] Comment on above: Performed By: #### L [id number], [id number] ####Staff Field Engineer: LYDIA LION ([id number])[facility] ([facility])[address] [place] [address] SEGMENTED NEUTROPHILS (10*3/UL) IN BLOOD-CELLAVISION 11.1 10*3/uL High 1.8-7.5 [facility] Comment on above: Performed By: #### L [id number], [id number] ####Staff Field Engineer: LYDIA LION ([id number])[facility] ([facility])[address] [place] [address] SEGMENTED NEUTROPHILS/100 LEUKOCYTES-CE 55 % Normal 38-82 [facility] Comment on above: Performed By: #### L [id number], [id number] ####Staff Field Engineer: LYDIA LION ([id number])[facility] ([facility])[address] [place] [address] TARGET CELLS IN BLOOD BY LIGHT MICROSCOPY Moderate Abnormal (none) [facility] Comment on above: Performed By: #### L [id number], [id number] ####Staff Field Engineer: LYDIA LION ([id number])[facility] ([facility])[address] [place] [address] UNCLASSIFIED CELLS TOTAL PER COUNTED LEUKOCYTES BY MANUAL COUNT Normal [facility] Comment on above: Performed By: #### L [id number], [id number] ####Staff Field Engineer: LYDIA LION ([id number])[facility] ([facility])[address] [place] [address] VARIANT LYMPHOCYTES TOTAL PER COUNTED LEUKOCYTES BY MANUAL COUNT Normal [facility] Comment on above: Performed By: #### L [id number], [id number] ####Staff Field Engineer: LYDIA LION ([id number])[facility] ([facility])[address] [place] [address] Magnesium [Mass/Vol]on 11-13 Interpretation and review of laboratory results Normal [facility] Higher values can be expected in females during menses. [facility] No Panel Informationon 11-13 Atypical Lymphocytes Manual [facility] Bands Manual [facility] Basophils [facility] 1 [facility] Blasts Manual [facility] h Eosinophils Manual [facility] Interpretation and review of laboratory results Abnormal [facility] Lymphocytes Manual 26 [facility] Metamyelocytes Manual 1 [facility] Monocytes Manual 18 [facility] alth Myelocytes Manual [facility] ealth Neutrophils Manual 55 [facility] Promyelocytes Manual [facility] Unclassified Cells, Manual [facility] Nursing Noteon 11-13-2024 Nursing Note Patient is refusing morning blood/lab draw. Normal [facility] Progress Noteon 11-13-2024 Progress Note Normal [facility] [employer] Progress Note Normal [facility] [employer] Progress Note Normal [facility] [employer] 30on 11-12-2024 30 Normal [facility] 30 Normal [facility] [id number] 11-12-2024 [id number] TCC spoke with pt/gabrielle shipley, updated HCL that plan is now SNF. Home care signing off at this time, please re-consult if dcp changes. Normal [facility] [id number] 11-12-2024 [id number] Todays MAR placed to [facility] via [facility] per TCC request. [facility] [phone] [facility] requested patient home med list. SERVICE WRITER ADVISOR tasked to send home med list. TCC to assist and follow as needed. Normal [facility] [id number] Normal [facility] [id number] Normal [facility] BASIC METABOLIC PANELon 06-0 Anion gap [Moles/Vol] 9 mmol/L Normal 3-13 [facility] Comment on above: Performed By: #### L [id number] ####Staff Field Engineer: LYDIA LION ([id number])[facility])[address] [place] [address] Calcium [Mass/Vol] 7.9 mg/dL Low 8.8-10.0 [facility] Comment on above: Performed By: #### L [id number] ####Staff Field Engineer: LYDIA LION ([id number])[facility] ([facility])[address] [place] [address] Chloride [Moles/Vol] 110 mmol/L High 98-107 [facility] Comment on above: Performed By: #### L [id number] ####Staff Field Engineer: LYDIA LION ([id number])[facility] ([facility])[address] [place] [address] CO2 [Moles/Vol] 26 mmol/L Normal 23-31 [facility] Comment on above: Performed By: #### L [id number] ####Staff Field Engineer: LYDIA LION ([id number])[facility])[address] [place] [address] Creatinine [Mass/Vol] 0.62 mg/dL Normal 0.57-1.11 [facility] Comment on above: Performed By: #### L [id number] ####Staff Field Engineer: LYDIA LION ([id number])[facility])[address] [place] [address] GLOMERULAR FILTRATION RATE ML/MIN/1.73 SQ M.PREDICTED 87.9 mL/min/1.73m*2 Normal >60.0 [facility] Comment on above: Result Comment: Calc ulation based on the Chronic Kidney Disease Epidemiology Collaboration (CKD-EPI) equation refit without adjustment for race Performed By: #### L [id number] ####Staff Field Engineer: LYDIA LION ([id number])[facility] ([facility])[address] [place] [address] Glucose [Mass/Vol] 100 mg/dL Normal 82-115 [facility] Comment on above: Performed By: #### L [id number] ####Staff Field Engineer: LYDIA LION ([id number])[facility] ([facility])[address] [place] [address] Potassium [Moles/Vol] 3.6 mmol/L Normal 3.5-5.1 [facility] Comment on above: Result Comment: [facility] potassium values may be up to 0.5 mmol/L lower than serum values. Performed By: #### L [id number] ####Staff Field Engineer: LYDIA LION ([id number])[facility] ([facility])[address] [place] [address] Sodium [Moles/Vol] 145 mmol/L Normal 136-145 [facility] Comment on above: Performed By: #### L [id number] ####Staff Field Engineer: LYDIA LION ([id number])[facility])[address] [place] [address] Urea nitrogen [Mass/Vol] 15 mg/dL Normal 9-23 [facility] Comment on above: Performed By: #### L [id number] ####Staff Field Engineer: LYDIA LION ([id number])[facility])[address] [place] [address] Basic metabolic 1998 panelon 11-12-2024 Anion gap [Moles/Vol] 9 mmol/L 3 - 13 mmol/L [facility] Calcium [Mass/Vol] 7.9 mg/dL Low 8.8 - 10. 0 mg/dL [facility] Chloride [Moles/Vol] 110 mmol/L High 98 - 10 7 mmol/L [facility] CO2 [Moles/Vol] 26 mmol/L 23 - 31 mmol/L [facility] Creatinine [Mass/Vol] 0.62 mg/dL 0.57 - 1.11 mg/dL [facility] GFR/1.73 sq M.predicted (S/P/Bld) [Vol rate/Area] 87.9 mL/min - PINF [facility] Comment on above: Calculation based on the Chronic Kidney Disease Epidemiology Collaboration (CKD-EPI) equation refit without adjustment for race Glucose [Mass/Vol] 100 mg/dL 82 - 115 mg/dL [facility] Interpretation and review of laboratory results Abnormal [facility] Potassium [Moles/Vol] 3.6 mmol/L 3.5 - 5.1 mmol/L [facility] Comment on above: Plasma potassium chandler ues may be up to 0.5 mmol/L lower than serum values. Sodium [Moles/Vol] 145 mmol/L 136 - 145 mmol/L [facility] Urea nitrogen [Mass/Vol] 15 mg/dL 9 - 23 mg/dL [facility] CBC W Auto Differential pane l (Bld)Ordered By: Jeremias Riley on 11-12-2024 Erythrocyte distribution width (RBC) [Ratio] 15.9 % High 11.5 - 15.0 % [facility] Hematocrit (Bld) [Volume fraction] 26 % Low 35.0 - 47.0 % [facility] Hemoglobin (Bld) [Mass/Vol] 8.6 g/dL Low 11.7 - 16.0 g/dL [facility] Interpretation and review of laboratory results Abnormal [facility] MCH (RBC) [Entitic mass] 27.7 pg 26.0 - 34.0 pg [facility] MCHC (RBC) [Mass/Vol] 33.1 % 30.5 - 36.0 % [facility] MCV (RBC) [Entitic vol] 83.9 fL 77.0 - 99.0 fL [facility] Platelet mean volume (Bld) [Entitic vol] 11.2 fL 9.0 - 12.7 fL [facility] Platelets (Bld) [#/Vol] 277 10*3/uL 140 - 440 10*3/uL [facility] RBC (Bld) [#/Vol] 3.1 10*6/uL Low 3.80 - 5.20 10*6/uL [facility] WBC (Bld) [#/Vol] 21.2 10*3/uL High 3.6 - 10.7 10*3/uL [facility] CBC WITH AUTO DIFFERENTIALon 11-12-2024 Erythrocyte distribution width (RBC) [Ratio] 15.9 % High 11.5-15.0 [facility] Comment on above: Performed By: #### L [id number], [id number] ####Staff Field Engineer: LYDIA LION ([id number])[facility])[address] [place] [address] Hematocrit (Bld) [Volume fraction] 26.0 % Low 35.0-47.0 [facility] Comment on above: Performed By: #### L [id number], [id number] ####Staff Field Engineer: LYDIA LION ([id number])[address] Hemoglobin (Bld) [Mass/Vol] 8.6 g/dL Low 11.7-16.0 [facility] Comment on above: Performed By: #### Naun [id number], [id number] ####Staff Field Engineer: LYDIA LION ([id number])[facility])[address] [place] [address] MCH (RBC) [Entitic mass] 27.7 pg Normal 26.0-34.0 [facility] Comment on above: Performed By: #### L [id number], [id number] ####Staff Field Engineer: LYDIA LION ([id number])[address] MCHC 33.1 % Normal 30.5-36.0 [facility] Comment on above: Performed By: #### L [id number], [id number] ####Staff Field Engineer: LYDIA LION ([id number])[address] MCV (RBC) [Entitic vol] 83.9 fL Normal 77.0-99.0 [facility] Comment on above: Performed By: #### L [id number], [id number] ####Staff Field Engineer: LYDIA [id number])[facility] ([facility])[address] [place] [address] Platelet mean volume (Bld) [Entitic vol] 11.2 fL Normal 9.0-12.7 [facility] Comment on above: Performed By: #### L [id number], [id number] ####Staff Field Engineer: LYDIA LION ([id number])[facility])[address] [place] [address] Platelets (Bld) [#/Vol] 277 10*3/uL Normal 140-440 [facility] Comment on above: Performed By: #### L [id number], [id number] ####Staff Field Engineer: LDYIA LION ([id number])[facility])[address] [place] [address] RBC (Bld) [#/Vol] 3.10 10*6/uL Low 3.80-5.20 [facility] Comment on above: Performed By: #### Naun [id number], [id number] ####Staff Field Engineer: LYDIA LION ([id number])[facility] ([facility])[address] [place] [address] WBC (Bld) [#/Vol] 21.2 10*3/uL High 3.6-10.7 [facility] Comment on above: Performed By: #### L [id number], [id number] ####Staff Field Engineer: LYDIA LION ([id number])[facility])[address] [place] [address] Laboratory - Hematology and Cell countson 11-12-2024 Anisocytosis Ql (Bld) Slight Abnormal (none) [facility] Band form neutrophils (Bld) [#/Vol] 0.8 10*3/uL High NINF - 0.0 10*3/uL [facility] Band form neutrophils/100 WBC (Bld) 4 % High NINF - 0 % [facility] Lymphocytes (Bld) [#/Vol] 3.2 10*3/uL 1.0 - 4.3 10*3/uL [facility] Lymphocytes/100 WBC (Bld) 15 % 15 - 45 % [facility] Macrocytes Ql (Bld) Moderate Abnormal (none) [facility] Monocytes (Bld) [#/Vol] 3.8 10*3/uL High 0.0 - 0.9 10*3/uL [facility] Monocytes/100 WBC (Bld) 18 % High 5 - 13 % [facility] Neutrophils (Bld) [#/Vol] 14.2 10*3/uL High 1.8 - 7.5 10*3/uL [facility] Poikilocytosis LM Ql (Bld) Moderate Abnormal (none) [facility] RBC morphology finding Nom (Bld) abnormal [facility] Segmented neutrophils/100 WBC (Bld) 63 % 38 - 82 % [facility] Target cells LM Ql (Bld) Moderate Abnormal (none) [facility] MANUAL DIFFERENTIAL (CELLAVI DAVON)on 11-12-2024 ANISOCYTOSIS PRESENCE IN BLOOD BY LIGHT MICROSCOPY Slight Abnormal (none) [facility] Comment on above: Performed By: #### L [id number], [id number] ####Staff Field Engineer: LYDIA LION ([id number])[facility])[address] [place] [address] BAND NEUTROPHILS TOTAL PER COUNTED LEUKOCYTES BY MANUAL COUNT 4 Normal [facility] Comment on above: Performed By: #### L [id number], [id number] ####Staff Field Engineer: LYDIA LION ([id number])[facility])[address] [place] [address] BANDS (10*3/UL) IN BLOOD-CELLAVISION 0.8 10*3/uL High <=0.0 [facility] Comment on above: Performed By: #### L [id number], [id number] ####Staff Field Engineer: LYDIA LION ([id number])[facility])[address] [place] [address] BASOPHILS TOTAL PER COUNTED LEUKOCYTES BY MANUAL COUNT Normal [facility] Comment on above: Performed By: #### L [id number], [id number] ####Staff Field Engineer: LYDIA LION ([id number])[facility] ([facility])[address] [place] [address] [place] BLASTS TOTAL PER COUNTED LEUKOCYTES BY MANUAL COUNT [facility] Comment on above: Performed By: #### L [id number], [id number] ####Staff Field Engineer: LYDIA LION ([id number])[facility] ([facility])[address] [place] [address] [place] EOSINOPHILS TOTAL PER COUNTED LEUKOCYTES BY MANUAL COUNT Normal [facility] Comment on above: Performed By: #### L [id number], [id number] ####Staff Field Engineer: LYDIA LION ([id number])[facility] ([facility])[address] [place] [address] [place] LYMPHOCYTES (10*3/UL) IN BLOOD-CELLAVISION 3.2 10*3/uL Normal 1.0-4.3 [facility] Comment on above: Performed By: #### L [id number], [id number] ####Staff Field Engineer: LYDIA LION ([id number])[facility] ([facility])[address] [place] [address] [place] LYMPHOCYTES TOTAL PER COUNTED LEUKOCYTES BY MANUAL COUNT 15 Normal [facility] Comment on above: Performed By: #### L [id number], [id number] ####Staff Field Engineer: LYDIA LION ([id number])[facility])[address] [place] [address] [place] LYMPHOCYTES/100 LEUKOCYTES IN BLOOD-CELLAVISION 15 % Normal 15-45 [facility] Comment on above: Performed By: #### L [id number], [id number] ####Staff Field Engineer: LYDIA LION ([id number])[facility] ([facility])[address] [place] [address] [place] MACROCYTES (PRESENCE) IN BLOOD BY LIGHT MICROSCOPY Moderate Abnormal (none) [facility] Comment on above: Performed By: #### L [id number], [id number] ####Staff Field Engineer: LYDIA LION ([id number])[facility])[address] [place] [address] [place] METAMYELOCYTES TOTAL PER COUNTED LEUKOCYTES BY MANUAL COUNT Normal [facility] Comment on above: Performed By: #### L [id number], [id number] ####Staff Field Engineer: LYDIA LION ([id number])[facility] ([facility])[address] [place] [address] [place] MONOCYTES (10*3/UL) IN BLOOD-CELLAVISION 3.8 10*3/uL High 0.0-0.9 [facility] Comment on above: Performed By: #### L [id number], [id number] ####Staff Field Engineer: LYDIA LION ([id number])[facility] ([facility])[address] [place] [address] [place] MONOCYTES TOTAL PER COUNTED LEUKOCYTES BY MANUAL COUNT 19 Normal [facility] Comment on above: Performed By: #### L [id number], [id number] ####Staff Field Engineer: LYDIA LION ([id number])[facility] ([facility])[address] [place] [address] MONOCYTES/100 LEUKOCYTES IN BLOOD-ELLEN 18 % High 5-13 [facility] Comment on above: Performed By: #### L [id number], [id number] ####Staff Field Engineer: LYDIA LION ([id number])[facility] ([facility])[address] [place] [address] [place] MYELOCYTES COUNTED BY MANUAL COUNT [facility] Comment on above: Performed By: #### L [id number], [id number] ####Staff Field Engineer: LYDIA LION ([id number])[facility] ([facility])[address] [place] [address] [place] NEUTROPHILS BAND FORM/100 LEUKOCYTES IN BLOOD-CELLAVISI 4 % High <=0 [facility] Comment on above: Performed By: #### L [id number], [id number] ####Staff Field Engineer: LYDIA LION ([id number])[facility] ([facility])[address] [place] [address] [place] NEUTROPHILS TOTAL PER COUNTED LEUKOCYTES BY MANUAL COUNT 65 Normal [facility] Comment on above: Performed By: #### L [id number], [id number] ####Staff Field Engineer: LYDIA LION ([id number])[facility] ([facility])[address] [place] [address] [place] POIKILOCYTOSIS (PRESENCE) IN BLOOD BY LIGHT MICROSCOPY Moderate Abnormal (none) [facility] Comment on above: Performed By: #### L [id number], [id number] ####Staff Field Engineer: LYDIA LION ([id number])[facility] ([facility])[address] [place] [address] PROMYELOCYTES TOTAL PER COUNTED LEUKOCYTES BY MANUAL COUNT Normal [facility] Comment on above: Performed By: #### L [id number], [id number] ####Staff Field Engineer: LYDIA LION ([id number])[facility] ([facility])[address] [place] [address] RBC MORPHOLOGY IN BLOOD abnormal Normal [facility] Comment on above: Performed By: #### L [id number], [id number] ####Staff Field Engineer: LYDIA LION ([id number])[facility] ([facility])[address] [place] [address] SEGMENTED NEUTROPHILS (10*3/UL) IN BLOOD-CELLAVISION 14.2 10*3/uL High 1.8-7.5 [facility] Comment on above: Performed By: #### L [id number], [id number] ####Staff Field Engineer: LYDIA LION ([id number])[facility] ([facility])[address] [place] [address] SEGMENTED NEUTROPHILS/100 LEUKOCYTES-CE 63 % Normal 38-82 [facility] Comment on above: Performed By: #### L [id number], [id number] ####Staff Field Engineer: LYDIA LION ([id number])[facility] HOSPITAL)[address] [place] [address] [place] [employer] CELLS IN BLOOD BY LIGHT MICROSCOPY Moderate Abnormal (none) [facility] Comment on above: Performed By: #### L [id number], [id number] ####Staff Field Engineer: LYDIA LION ([id number])[facility] ([facility])[address] [place] [address] UNCLASSIFIED CELLS TOTAL PER COUNTED LEUKOCYTES BY MANUAL COUNT Normal [facility] Comment on above: Performed By: #### L [id number], [id number] ####Staff Field Engineer: LYDIA LION ([id number])[address] VARIANT LYMPHOCYTES TOTAL PER COUNTED LEUKOCYTES BY MANUAL COUNT Normal [facility] Comment on above: Performed By: #### L [id number], [id number] ####Staff Field Engineer: LYDIA LION ([id number])[facility])[address] [place] [address] No Panel Informationon 11-12 Atypical Lymphocytes Manual [facility] Bands Manual 4 [facility] Basophils Manual [facility] alth Blasts Manual [facility] Eosinophils Manual [facility] Interpretation and review of laboratory results Abnormal [facility] Lymphocytes Manual 15 [facility] Metamyelocytes Manual [facility] Monocytes Manual 19 [facility] alth Myelocytes Manual [facility] ealth Neutrophils Manual 65 [facility] Promyelocytes Manual [facility] Unclassified Cells, Manual [facility] Progress Noteon 11-12-2024 Progress Note Normal [facility] [employer] Progress Note Normal [facility] [employer] 30on 11-11-2024 30 Patient continues to make attempt at eating more, needs encouragement likes sweets. Refusing blood work Mds aware. 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 Complains of pain and weakness. Would benefit from placement for rehab. Normal [facility] BASIC METABOLIC PANELon Anion gap [Moles/Vol] 8 mmol/L Normal 3-13 [facility] Comment on above: Performed By: #### L AB15, [id number] ####Staff Field Engineer: LYDIA LION ([id number])[facility] ([facility])[address] [place] [address] Calcium [Mass/Vol] 7.7 mg/dL Low 8.8-10.0 [facility] Comment on above: Performed By: #### L AB15, [id number] ####Staff Field Engineer: LYDIA LION ([id number])[facility] ([facility])[address] [place] [address] [place] Chloride [Moles/Vol] 108 mmol/L High 98-107 [facility] Comment on above: Performed By: #### L AB15, [id number] ####Staff Field Engineer: LYDIA LION ([id number])[facility] ([facility])[address] [place] [address] CO2 [Moles/Vol] 29 mmol/L Normal 23-31 [facility] Comment on above: Performed By: #### L AB15, [id number] ####Staff Field Engineer: LYDIA LION ([id number])[facility] ([facility])[address] [place] [address] Creatinine [Mass/Vol] 0.71 mg/dL Normal 0.57-1.11 [facility] Comment on above: Performed By: #### L AB15, [id number] ####Staff Field Engineer: LYDIA LION ([id number])[facility] ([facility])[address] [place] [address] GLOMERULAR FILTRATION RATE ML/MIN/1.73 SQ M.PREDICTED 84.0 mL/min/1.73m*2 Normal >60.0 [facility] Comment on above: Result Comment: Calc ulation based on the Chronic Kidney Disease Epidemiology Collaboration (CKD-EPI) equation refit without adjustment for race Performed By: #### L AB15, [id number] ####Staff Field Engineer: LYDIA LION ([id number])[facility] ([facility])[address] [place] [address] [place] Glucose [Mass/Vol] 134 mg/dL High 82-115 [facility] Comment on above: Performed By: #### L AB15, [id number] ####Staff Field Engineer: LYDIA LION ([id number])[facility] ([facility])[address] [place] [address] Potassium [Moles/Vol] 3.0 mmol/L Low 3.5-5.1 [facility] Comment on above: Result Comment: [facility] potassium values may be up to 0.5 mmol/L lower than serum values. Performed By: #### L AB15, [id number] ####Staff Field Engineer: LYDIA LION ([id number])[facility] ([facility])[address] [place] [address] Sodium [Moles/Vol] 145 mmol/L Normal 136-145 [facility] Comment on above: Performed By: #### L AB15, [id number] ####Staff Field Engineer: LYDIA LION ([id number])[facility] ([facility])[address] [place] [address] Urea nitrogen [Mass/Vol] 23 mg/dL Normal 9-23 [facility] Comment on above: Performed By: #### L AB15, [id number] ####Staff Field Engineer: LYDIA LION ([id number])[facility] ([facility])[address] [place] [address] Basic metabolic 1998 panelon 11-10-2024 Anion gap [Moles/Vol] 8 mmol/L 3 - 13 mmol/L [facility] Calcium [Mass/Vol] 7.7 mg/dL Low 8.8 - 10. 0 mg/dL [facility] Chloride [Moles/Vol] 108 mmol/L High 98 - 10 7 mmol/L [facility] CO2 [Moles/Vol] 29 mmol/L 23 - 31 mmol/L [facility] Creatinine [Mass/Vol] 0.71 mg/dL 0.57 - 1.11 mg/dL [facility] GFR/1.73 sq M.predicted (S/P/Bld) [Vol rate/Area] 84 mL/min - PINF [facility] Comment on above: Calculation based on the Chronic Kidney Disease Epidemiology Collaboration (CKD-EPI) equation refit without adjustment for race Glucose [Mass/Vol] 134 mg/dL High 82 - 115 mg/dL [facility] Interpretation and review of laboratory results Abnormal [facility] Potassium [Moles/Vol] 3 mmol/L Low 3.5 - 5.1 mmol/L [facility] Comment on above: Plasma potassium chandler ues may be up to 0.5 mmol/L lower than serum values. Sodium [Moles/Vol] 145 mmol/L 136 - 145 mmol/L [facility] Urea nitrogen [Mass/Vol] 23 mg/dL 9 - 23 mg/dL [facility] Laboratory - Chemistry and C hemistry - challengeon 11-10-2024 Magnesium [Mass/Vol] 1.6 mg/dL 1.6 - 2 .6 mg/dL [facility] MAGNESIUMon 11-10-2024 Magnesium [Mass/Vol] 1.6 mg/dL Normal 1.6-2.6 [facility] Comment on above: Result Comment: BRANDEN Rubio COMMENTS:Higher values can be expected in females during menses. Performed By: #### L AB15, [id number] ####Staff Field Engineer: LYDIA LION ([id number])[address] Magnesium [Mass/Vol]on 11-10 Interpretation and review of laboratory results Normal [facility] Higher values can be expected in females during menses. [facility] Nursing Noteon 11-10-2024 Nursing Note Patient refusing any more blood draws at this time, as she is a very hard stick and has had to be poked many times for Ivs and blood draws. Doctor has been notified and was okay with holding off on any more blood draws at this time. Normal [facility] Progress Noteon 11-10-2024 Progress Note Normal [facility] [employer] Progress Note Normal [facility] [employer] Progress Note Normal [facility] [employer] Progress Note Normal [facility] [employer] US Heart TransthoracicOrdere d By: Cliff Jj on 11-10-2024 Ao Root Index 2.04 cm/m2 [facility] [employer] Work Phone: Aortic Root 3.1 cm [facility] [employer] Work Phone: Aortic Sinus Valsalva 3.1 cm [facility] [employer] Work Phone: Aortic Sinus Valsalva Index 2.04 cm/m2 [facility] Work Phone: [phone] Aortic valve Orifice area by US 3.1 cm2 [facility] Work Phone: [phone] Ascending Aorta 3.4 cm [facility] Work Phone: [phone] Ascending Aorta Index 2.24 cm/m2 [facility] Work Phone: [phone] AV Area by Peak Velocity 2.4 cm2 [facility] Work Phone: [phone] AV Peak Gradient 5 mmHg [facility] Work Phone: [phone] AV Peak Velocity 1.2 m/s [facility] Work Phone: [phone] AV Velocity Ratio 0.75 [facility] Work Phone: [phone] PENG/BSA Peak Velocity 1.6 cm2/m2 [facility] Work Phone: [phone] E/E' Lateral 8.88 [facility] Work Phone: [phone] E/E' Ratio (Averaged) 11.54 [facility] Work Phone: [phone] E/E' Septal 14.2 [facility] Work Phone: [phone] Est. RA Pressure 3 mmHg [facility] Work Phone: [phone] Fractional Shortening 2D 31 % 28 - 44 % [facility] Work Phone: Interpretation and review of laboratory results Abnormal [facility] Work Phone: [phone] IVC Diameter 0.6 cm [facility] Work Phone: [phone] IVSd 1 cm Abnormal 0.6 - 0.9 cm [facility] Work Phone: [phone] LA Diameter 3.2 cm [facility] Work Phone: [phone] LA Size Index 2.11 cm/m2 [facility] Work Phone: [phone] LA Volume 2C 49 mL 22 - 52 mL [facility] Work Phone: LA Volume 4C 32 mL 22 - 52 mL [facility] Work Phone: [phone] LA Volume A/L 45 mL [facility] Work Phone: [phone] LA Volume BP 41 mL 22 - 52 mL [facility] Work Phone: [phone] LA Volume Index 2C 32 mL/m2 16 - 34 mL/m2 [facility] Work Phone: [phone] LA Volume Index 4C 21 mL/m2 16 - 34 mL/m2 [facility] Work Phone: [phone] LA Volume Index A/L 30 mL/m2 16 - 34 mL/m2 [facility] Work Phone: [phone] LA Volume Index BP 27 ml/m2 16 - 34 ml/m2 [facility] Work Phone: [phone] LA/AO Root Ratio 1.03 [facility] Work Phone: [phone] Left ventricular Ejection fraction by US.2D+Calculated by biplane method of disks 61 % 55 - 100 % [facility] Work Phone: LV E' Lateral Velocity 8 cm/s [facility] Work Phone: [phone] LV E' Septal Velocity 5 cm/s [facility] Work Phone: [phone] LV EDV A2C 44 mL [facility] Work Phone: [phone] LV EDV A4C 51 mL [facility] Work Phone: [phone] LV EDV BP 51 mL Abnormal 56 - 104 mL [facility] Work Phone: [phone] LV EDV Index A2C 29 mL/m2 [facility] Work Phone: LV EDV Index A4C 34 mL/m2 [facility] Work Phone: LV EDV Index BP 34 mL/m2 [facility] Work Phone: LV Ejection Fraction A2C 62 % [facility] Work Phone: [phone] LV Ejection Fraction A4C 63 % [facility] Work Phone: [phone] LV ESV A2C 17 mL [facility] Work Phone: LV ESV A4C 19 mL [facility] Work Phone: LV ESV BP 20 mL 19 - 49 mL [facility] Work Phone: LV ESV Index A2C 11 mL/m2 [facility] Work Phone: [phone] LV ESV Index A4C 13 mL/m2 [facility] Work Phone: [phone] LV ESV Index BP 13 mL/m2 [facility] Work Phone: [phone] LV Mass 2D 113.6 g 67 - 162 g [facility] Work Phone: [phone] LV Mass 2D Index 74.7 g/m2 43 - 95 g/m2 [facility] Work Phone: [phone] LV RWT Ratio 0.46 [facility] Work Phone: [phone] LVIDd 3.9 cm 3.9 - 5.3 cm [facility] Work Phone: [phone] LVIDd Index 2.57 cm/m2 [facility] [employer] Work Phone: [phone] LVIDs 2.7 cm [facility] [employer] Work Phone: [phone] LVIDs Index 1.78 cm/m2 [facility] [employer] Work Phone: [phone] LVOT Cardiac Output 4.2 liter/mi nu te [facility] [employer] Work Phone: [phone] LVOT Diameter 2 cm [facility] Work Phone: [phone] LVOT Mean Gradient 2 mmHg [facility] [employer] Work Phone: [phone] LVOT Peak Gradient 3 mmHg [facility] [employer] Work Phone: [phone] LVOT Peak Velocity 0.9 m/s [facility] [employer] Work Phone: [phone] LVOT Stroke Volume Index 34.5 mL/m2 [facility] [employer] Work Phone: [phone] LVOT SV 52.4 ml [facility] [employer] Work Phone: [phone] LVOT VTI 16.7 cm [facility] [employer] Work Phone: [phone] LVPWd 0.9 cm 0.6 - 0.9 cm [facility] [employer] Work Phone: [phone] MV A Velocity 0.98 m/s [facility] Work Phone: [phone] MV E Velocity 0.71 m/s [facility] Work Phone: [phone] MV E Wave Deceleration Time 254.5 ms [facility] Work Phone: [phone] MV E/A 0.72 [facility] Work Phone: [phone] RA Area 4C 28.4 mL [facility] Work Phone: [phone] RV Basal Dimension 3 cm [facility] Work Phone: [phone] RV Longitudinal Dimension 5.5 cm [facility] Work Phone: [phone] RV Mid Dimension 2 cm [facility] Work Phone: [phone] RVSP 15 mmHg [facility] Work Phone: [phone] Sinotubular Junction 2.7 cm [facility] Work Phone: [phone] TR Max Velocity 1.76 m/s [facility] Work Phone: [phone] TR Peak Gradient 12 mmHg [facility] Work Phone: [phone] [facility] Work Phone: [phone] US Heart Transthoracicon Left Ventricle: Left ventricle size is normal. Normal wall thickness. Normal left ventricular systolic function. EF by 2D [employer] is 61%. Normal wall motion. Right Ventricle: Right ventricle size is normal. Normal systolic function. Tricuspid Valve: Normal RVSP. RVSP is 15 mmHg. Pericardium: Evidence of prominent epicardial fat. Very Trivial pericardial effusion present. Left pleural effusion. No significant valvular abnormalities. Left Ventricle Left ventricle size is normal. Normal wall thickness. Normal left ventricular systolic function. EF by 2D [employer]plane is 61%. Normal wall motion. Indeterminate diastolic function. Right Ventricle Right ventricle size is normal. Normal systolic function. Left Atrium Left atrium size is normal. Left atrium size is normal (LA volume index 16-34 mL/m2).LA Vol Index A/L is 30 mL/m2. Right Atrium Right atrium size is normal. IVC/SVC IVC diameter is normal and decreases greater than 50% during inspiration; therefore the estimated right atrial pressure is normal (~3 mmHg). Mitral Valve Valve structure is normal. Trace regurgitation. No stenosis noted. Tricuspid Valve Valve structure is normal. Trace regurgitation. Normal RVSP. RVSP is 15 mmHg. Aortic Valve Trileaflet. No cusp thickening. No cusp calcification. No regurgitation. No stenosis. Pulmonic Valve The pulmonic valve was not well visualized. Trace regurgitation. Ascending Aorta Normal sized sinuses of Valsalva and ascending aorta. Sinuses of Valsalva diameter is 3.1 cm. Ao ascending diameter is 3.4 cm. Pericardium Evidence of prominent epicardial fat. Very Trivial pericardial effusion present. Left pleural effusion. Septum No interatrial shunt visualized on color Doppler. Study Details Image quality: good. Heart rate: 82 bpm. Blood pressure: 106/58 mmHg. The underlying ECG rhythm was sinus rhythm. Technical qualifiers: Technically difficult study, technically difficult study with poor endocardial visualization and technically difficult study due to patient's body habitus. Patient declined use of ultrasound enhancement agent to enhance imaging. Echo Additional Conclusions No significant valvular abnormalities. CV CPACS 30on 11-09-2024 30 Normal [facility] 30 Normal [facility] [id number] 11-09-2024 [id number] Normal [facility] BASIC METABOLIC PANELon 06-0 Anion gap [Moles/Vol] 17 mmol/L High 3-13 [facility] Comment on above: Performed By: #### L [id number] ####Staff Field Engineer: LYDIA LION ([id number])[facility] ([facility])[address] [place] [address] Calcium [Mass/Vol] 7.8 mg/dL Low 8.8-10.0 [facility] Comment on above: Performed By: #### L AB15 ####Staff Field Engineer: LYDIA LION ([id number])[facility] ([facility])[address] [place] [address] [place] Chloride [Moles/Vol] 105 mmol/L Normal 98-107 [facility] Comment on above: Performed By: #### L AB15 ####Staff Field Engineer: LYDIA LION ([id number])[facility] ([facility])[address] [place] [address] CO2 [Moles/Vol] 19 mmol/L Low 23-31 [facility] Comment on above: Performed By: #### L AB15 ####Staff Field Engineer: LYDIA LION ([id number])[facility] ([facility])[address] [place] [address] Creatinine [Mass/Vol] 0.72 mg/dL Normal 0.57-1.11 [facility] Comment on above: Performed By: #### L AB15 ####Staff Field Engineer: LYDIA LION ([id number])[facility])[address] [place] [address] GLOMERULAR FILTRATION RATE ML/MIN/1.73 SQ M.PREDICTED 82.6 mL/min/1.73m*2 Normal >60.0 [facility] Comment on above: Result Comment: Calc ulation based on the Chronic Kidney Disease Epidemiology Collaboration (CKD-EPI) equation refit without adjustment for race Performed By: #### L AB15 ####Staff Field Engineer: LYDIA LION ([id number])[facility] ([facility])[address] [place] [address] Glucose [Mass/Vol] 110 mg/dL Normal 82-115 [facility] Comment on above: Performed By: #### L AB15 ####Staff Field Engineer: LYDIA LION ([id number])[facility])[address] [place] [address] Potassium [Moles/Vol] 3.8 mmol/L Normal 3.5-5.1 [facility] Comment on above: Result Comment: TCPo tential interference from hemolysis Performed By: #### L AB15 ####Staff Field Engineer: LYDIA LION ([id number])[facility] ([facility])[address] [place] [address] Sodium [Moles/Vol] 141 mmol/L Normal 136-145 [facility] Comment on above: Performed By: #### L AB15 ####Staff Field Engineer: LYDIA LION ([id number])[facility])[address] [place] [address] Urea nitrogen [Mass/Vol] 15 mg/dL Normal 9-23 [facility] Comment on above: Performed By: #### L AB15 ####Staff Field Engineer: LYDIA LION ([id number])[facility])[address] [place] [address] Basic metabolic 1998 panelOr dered By: Brianna Waddell on 11-09-2024 Anion gap [Moles/Vol] 17 mmol/L High 3 - 13 mmol/L [facility] Calcium [Mass/Vol] 7.8 mg/dL Low 8.8 - 10. 0 mg/dL [facility] Chloride [Moles/Vol] 105 mmol/L 98 - 10 7 mmol/L [facility] CO2 [Moles/Vol] 19 mmol/L Low 23 - 31 mmol/L [facility] Creatinine [Mass/Vol] 0.72 mg/dL 0.57 - 1.11 mg/dL [facility] GFR/1.73 sq M.predicted (S/P/Bld) [Vol rate/Area] 82.6 mL/min - PINF [facility] Comment on above: Calculation based on the Chronic Kidney Disease Epidemiology Collaboration (CKD-EPI) equation refit without adjustment for race Glucose [Mass/Vol] 110 mg/dL 82 - 115 mg/dL [facility] Interpretation and review of laboratory results Abnormal [facility] Potassium [Moles/Vol] 3.8 mmol/L 3.5 - 5.1 mmol/L [facility] Comment on above: TC Potential interference from hemolysis Sodium [Moles/Vol] 141 mmol/L 136 - 145 mmol/L [facility] Urea nitrogen [Mass/Vol] 15 mg/dL 9 - 23 mg/dL [facility] CBC W Auto Differential pane l (Bld)on 11-09-2024 Erythrocyte distribution width (RBC) [Ratio] 15 % 11.5 - 15.0 % [facility] Hematocrit (Bld) [Volume fraction] 26.8 % Low 35.0 - 47.0 % [facility] Hemoglobin (Bld) [Mass/Vol] 9.1 g/dL Low 11.7 - 16.0 g/dL [facility] Interpretation and review of laboratory results Abnormal [facility] MCH (RBC) [Entitic mass] 27.6 pg 26.0 - 34.0 pg [facility] MCHC (RBC) [Mass/Vol] 34 % 30.5 - 36.0 % [facility] MCV (RBC) [Entitic vol] 81.2 fL 77.0 - 99.0 fL [facility] Platelet mean volume (Bld) [Entitic vol] 12.2 fL 9.0 - 12.7 fL [facility] Platelets (Bld) [#/Vol] 200 10*3/uL 140 - 440 10*3/uL [facility] RBC (Bld) [#/Vol] 3.3 10*6/uL Low 3.80 - 5.20 10*6/uL [facility] WBC (Bld) [#/Vol] 27.2 10*3/uL High 3.6 - 10.7 10*3/uL [facility] CBC WITH AUTO DIFFERENTIALon 11-09-2024 Erythrocyte distribution width (RBC) [Ratio] 15.0 % Normal 11.5-15.0 [facility] Comment on above: Performed By: #### L [id number], [id number] ####Staff Field Engineer: LYDIA LION ([id number])[facility])[address] [place] [address] Hematocrit (Bld) [Volume fraction] 26.8 % Low 35.0-47.0 [facility] Comment on above: Performed By: #### Naun [id number], [id number] ####Staff Field Engineer: LYDIA LION ([id number])[address] Hemoglobin (Bld) [Mass/Vol] 9.1 g/dL Low 11.7-16.0 [facility] Comment on above: Performed By: #### L [id number], [id number] ####Staff Field Engineer: LYDIA LION ([id number])[address] MCH (RBC) [Entitic mass] 27.6 pg Normal 26.0-34.0 [facility] Comment on above: Performed By: #### L [id number], [id number] ####Staff Field Engineer: LYDIA LION ([id number])[address] MCHC 34.0 % Normal 30.5-36.0 [facility] Comment on above: Performed By: #### L [id number], [id number] ####Staff Field Engineer: LYDIA LION ([id number])[facility] ([facility])[address] [place] [address] MCV (RBC) [Entitic vol] 81.2 fL Normal 77.0-99.0 [facility] Comment on above: Performed By: #### Naun [id number], [id number] ####Staff Field Engineer: LYDIA LION ([id number])[facility] ([facility])[address] [place] [address] Platelet mean volume (Bld) [Entitic vol] 12.2 fL Normal 9.0-12.7 [facility] Comment on above: Performed By: #### L [id number], [id number] ####Staff Field Engineer: LYDIA LION ([id number])[facility] ([facility])[address] [place] [address] Platelets (Bld) [#/Vol] 200 10*3/uL Normal 140-440 [facility] Comment on above: Performed By: #### Naun [id number], [id number] ####Staff Field Engineer: LYDIA LION ([id number])[facility] ([facility])[address] [place] [address] RBC (Bld) [#/Vol] 3.30 10*6/uL Low 3.80-5.20 [facility] Comment on above: Performed By: #### L [id number], [id number] ####Staff Field Engineer: LYDIA LION ([id number])[facility] ([facility])[address] [place] [address] WBC (Bld) [#/Vol] 27.2 10*3/uL High 3.6-10.7 [facility] Comment on above: Performed By: #### L [id number], [id number] ####Staff Field Engineer: LYDIA LION ([phone])[facility])[address] [place] [address] ECG 12-LEADon 11-09-2024 ECG 12-LEAD IMPRESSION: Sinus tachycardia Borderline ST depression, lateral leads Electronically Signed On 11-09-2024 12:42:38 EDT by Da Tirado [facility] Laboratory - Hematology and Cell countson 11-09-2024 Hypochromia Ql (Bld) Slight Abnormal (none) [facility] Lymphocytes (Bld) [#/Vol] 1.9 10*3/uL 1.0 - 4.3 10*3/uL [facility] Lymphocytes/100 WBC (Bld) 7 % Low 15 - 45 % [facility] Monocytes (Bld) [#/Vol] 5.7 10*3/uL High 0.0 - 0.9 10*3/uL [facility] Monocytes/100 WBC (Bld) 21 % High 5 - 13 % [facility] Neutrophils (Bld) [#/Vol] 19.6 10*3/uL High 1.8 - 7.5 10*3/uL [facility] Ovalocytes LM Ql (Bld) Slight Abnormal (none) [facility] Poikilocytosis LM Ql (Bld) Slight Abnormal (none) [facility] RBC morphology finding Nom (Bld) abnormal [facility] Segmented neutrophils/100 WBC (Bld) 72 % 38 - 82 % [facility] Target cells LM Ql (Bld) Slight Abnormal (none) [facility] MANUAL DIFFERENTIAL (CELLAVI DAVON)on 11-09-2024 BAND NEUTROPHILS TOTAL PER COUNTED LEUKOCYTES BY MANUAL COUNT [facility] Comment on above: Performed By: #### L [id number], [id number] ####Staff Field Engineer: LYDIA LION ([id number])[address] BASOPHILS TOTAL PER COUNTED LEUKOCYTES BY MANUAL COUNT [facility] Comment on above: Performed By: #### L [id number], [id number] ####Staff Field Engineer: LYDIA [id number])[facility])[address] [place] [address] BLASTS TOTAL PER COUNTED LEUKOCYTES BY MANUAL COUNT [facility] Comment on above: Performed By: #### L [id number], [id number] ####Staff Field Engineer: LYDIA [id number])[facility] ([facility])[address] [place] [address] [place] EOSINOPHILS TOTAL PER COUNTED LEUKOCYTES BY MANUAL COUNT Normal [facility] Comment on above: Performed By: #### L [id number], [id number] ####Staff Field Engineer: LYDIA LION ([id number])[facility])[address] [place] [address] HYPOCHROMIA (PRESENCE) IN BLOOD BY LIGHT MICROSCOPY Slight Abnormal (none) [facility] Comment on above: Performed By: #### L [id number], [id number] ####Staff Field Engineer: LYDIA LION ([id number])[facility] ([facility])[address] [place] [address] [place] LYMPHOCYTES (10*3/UL) IN BLOOD-CELLAVISION 1.9 10*3/uL Normal 1.0-4.3 [facility] Comment on above: Performed By: #### L [id number], [id number] ####Staff Field Engineer: LYDIA LION ([id number])[facility] ([facility])[address] [place] [address] LYMPHOCYTES TOTAL PER COUNTED LEUKOCYTES BY MANUAL COUNT 7 Normal [facility] Comment on above: Performed By: #### L [id number], [id number] ####Staff Field Engineer: LYDIA LION ([id number])[facility] ([facility])[address] [place] [address] LYMPHOCYTES/100 LEUKOCYTES IN BLOOD-CELLAVISION 7 % Low 15-45 [facility] Comment on above: Performed By: #### L [id number], [id number] ####Staff Field Engineer: LYDIA LION ([id number])[facility] ([facility])[address] [place] [address] METAMYELOCYTES TOTAL PER COUNTED LEUKOCYTES BY MANUAL COUNT [facility] Comment on above: Performed By: #### L [id number], [id number] ####Staff Field Engineer: LYDIA LION ([id number])[facility] ([facility])[address] [place] [address] MONOCYTES (10*3/UL) IN BLOOD-CELLAVISION 5.7 10*3/uL High 0.0-0.9 [facility] Comment on above: Performed By: #### L [id number], [id number] ####Staff Field Engineer: LYDIA LION ([id number])[facility] ([facility])[address] [place] [address] [place] MONOCYTES TOTAL PER COUNTED LEUKOCYTES BY MANUAL COUNT 21 Normal [facility] Comment on above: Performed By: #### L [id number], [id number] ####Staff Field Engineer: LYDIA LION ([id number])[facility] ([facility])[address] [place] [address] [place] MONOCYTES/100 LEUKOCYTES IN BLOOD-ELLEN 21 % High 5-13 [facility] Comment on above: Performed By: #### L [id number], [id number] ####Staff Field Engineer: LYDIA LION ([id number])[facility] ([facility])[address] [place] [address] MYELOCYTES COUNTED BY MANUAL COUNT Normal [facility] Comment on above: Performed By: #### L [id number], [id number] ####Staff Field Engineer: LYDIA LION ([id number])[facility] ([facility])[address] [place] [address] NEUTROPHILS TOTAL PER COUNTED LEUKOCYTES BY MANUAL COUNT 73 Normal [facility] Comment on above: Performed By: #### L [id number], [id number] ####Staff Field Engineer: LYDIA LION ([id number])[facility] ([facility])[address] [place] [address] [place] OVALOCYTES PRESENCE IN BLOOD BY LIGHT MICROSCOPY Slight Abnormal (none) [facility] Comment on above: Performed By: #### L [id number], [id number] ####Staff Field Engineer: LYDIA LION ([id number])[facility] ([facility])[address] [place] [address] [place] POIKILOCYTOSIS (PRESENCE) IN BLOOD BY LIGHT MICROSCOPY Slight Abnormal (none) [facility] Comment on above: Performed By: #### L [id number], [id number] ####Staff Field Engineer: LYDIA LION ([id number])[facility] ([facility])[address] [place] [address] PROMYELOCYTES TOTAL PER COUNTED LEUKOCYTES BY MANUAL COUNT Normal [facility] Comment on above: Performed By: #### L [id number], [id number] ####Staff Field Engineer: LYDIA LION ([id number])[facility] ([facility])[address] [place] [address] RBC MORPHOLOGY IN BLOOD abnormal Normal [facility] Comment on above: Performed By: #### L [id number], [id number] ####Staff Field Engineer: LYDIA LION ([id number])[facility] ([facility])[address] [place] [address] SEGMENTED NEUTROPHILS (10*3/UL) IN BLOOD-CELLAVISION 19.6 10*3/uL High 1.8-7.5 [facility] Comment on above: Performed By: #### L [id number], [id number] ####Staff Field Engineer: LYDIA LION ([id number])[facility] ([facility])[address] [place] [address] SEGMENTED NEUTROPHILS/100 LEUKOCYTES-CE 72 % Normal 38-82 [facility] Comment on above: Performed By: #### L [id number], [id number] ####Staff Field Engineer: LYDAI LION ([id number])[facility] ([facility])[address] [place] [address] TARGET CELLS IN BLOOD BY LIGHT MICROSCOPY Slight Abnormal (none) [facility] Comment on above: Performed By: #### L [id number], [id number] ####Staff Field Engineer: LYDIA LION ([id number])[facility] ([facility])[address] [place] [address] UNCLASSIFIED CELLS TOTAL PER COUNTED LEUKOCYTES BY MANUAL COUNT Normal [facility] Comment on above: Performed By: #### L [id number], [id number] ####Staff Field Engineer: LYDIA LION ([id number])[facility] ([facility])[address] [place] [address] VARIANT LYMPHOCYTES TOTAL PER COUNTED LEUKOCYTES BY MANUAL COUNT Normal [facility] Comment on above: Performed By: #### L [id number], [id number] ####Staff Field Engineer: LYDIA LION ([id number])[facility] [place] [address] No Panel InformationOrdered By: Da Tirado on 11-09-2024 P [place] 37 degrees [facility] Work Phone: OK Interval 103 ms [facility] Work Phone: QRS [place] 17 degrees [facility] Work Phone: QRSD Interval 79 ms [facility] Work Phone: QT Interval 308 ms [facility] Work Phone: QTC Interval 407 ms [facility] Work Phone: T Wave [place] -74 degrees [facility] Work Phone: [facility] Work Phone: No Panel Informationon 11-[address] depression, lateral leads Electronically Signed On 11-09-2024 12:42:38 EDT by Da Silvestre MD - 11/09/2024 IMPRESSION: Sinus tachycardia Borderline ST depression, lateral leads Electronically Signed On 11-09-2024 12:42:38 EDT by Da Tirado [facility] Atypical Lymphocytes Manual [facility] Bands Manual [facility] Basophils Manual [facility] Blasts Manual [facility] Eosin[facility] Manual [facility] Interpretation and review of laboratory results Abnormal [facility] Lymphocytes Manual 7 [facility] Metamyelocytes Manual [facility] Monocytes Manual 21 [facility] Myelocytes Manual [facility]alth Neutrophils Manual 73 [facility] Promyelocytes Manual [facility] Unclassified Cells, Manual [facility] Progress Noteon 11-09-2024 Progress Note Normal [facility] Progress Note Nutrition rescreen completed. Patient referred to the Dietitian due to supplement order. BERTIN Doss Normal [facility] Progress Note Normal [facility] Vital signsOrdered By: Da Tirado on 11-09-2024 Heart rate 105 /min bpm [facility] Work Phone: 30on 11-08-2024 30 Normal [facility] 30 Normal [facility] BASIC METABOLIC PANELon 05- Anion gap [Moles/Vol] 16 mmol/L High 3-13 [facility] Comment on above: Performed By: #### L [id number], [id number] ####Staff Field Engineer: LYDIA LION ([id number])[facility] ([facility])[address] [place] [address] Calcium [Mass/Vol] 8.2 mg/dL Low 8.8-10.0 [facility] Comment on above: Performed By: #### L AB15, [id number] ####Staff Field Engineer: LYDIA LION ([id number])[facility] ([facility])[address] [place] [address] [place] Chloride [Moles/Vol] 107 mmol/L Normal 98-107 [facility] Comment on above: Performed By: #### L AB15, [id number] ####Staff Field Engineer: LYDIA LION ([id number])[facility] ([facility])[address] [place] [address] [place] CO2 [Moles/Vol] 20 mmol/L Low 23-31 [facility] Comment on above: Performed By: #### L AB15, [id number] ####Staff Field Engineer: LYDIA LION ([id number])[facility] ([facility])[address] [place] [address] Creatinine [Mass/Vol] 0.69 mg/dL Normal 0.57-1.11 [facility] Comment on above: Performed By: #### L AB15, [id number] ####Staff Field Engineer: LYDIA LION ([id number])[facility])[address] [place] [address] [place] GLOMERULAR FILTRATION RATE ML/MIN/1.73 SQ M.PREDICTED 85.7 mL/min/1.73m*2 Normal >60.0 [facility] Comment on above: Result Comment: Calc ulation based on the Chronic Kidney Disease Epidemiology Collaboration (CKD-EPI) equation refit without adjustment for race Performed By: #### L AB15, [id number] ####Staff Field Engineer: LYDIA LION ([id number])[address] Glucose [Mass/Vol] 114 mg/dL Normal 82-115 [facility] Comment on above: Performed By: #### L AB15, [id number] ####Staff Field Engineer: LYDIA LION ([id number])[facility])[address] [place] [address] Potassium [Moles/Vol] 3.2 mmol/L Low 3.5-5.1 [facility] Comment on above: Result Comment: [facility] potassium values may be up to 0.5 mmol/L lower than serum values. Performed By: #### L AB15, [id number] ####Staff Field Engineer: LYDIA LION ([id number])[facility])[address] [place] [address] Sodium [Moles/Vol] 143 mmol/L Normal 136-145 [facility] Comment on above: Performed By: #### L AB15, [id number] ####Staff Field Engineer: LYDIA LION ([id number])[address] Urea nitrogen [Mass/Vol] 12 mg/dL Normal 9-23 [facility] Comment on above: Performed By: #### L AB15, [id number] ####Staff Field Engineer: LYDIA LION ([id number])[address] Basic metabolic 1998 panelon 11-08-2024 Anion gap [Moles/Vol] 16 mmol/L High 3 - 13 mmol/L [facility] Calcium [Mass/Vol] 8.2 mg/dL Low 8.8 - 10. 0 mg/dL [facility] Chloride [Moles/Vol] 107 mmol/L 98 - 10 7 mmol/L [facility] CO2 [Moles/Vol] 20 mmol/L Low 23 - 31 mmol/L [facility] Creatinine [Mass/Vol] 0.69 mg/dL 0.57 - 1.11 mg/dL [facility] GFR/1.73 sq M.predicted (S/P/Bld) [Vol rate/Area] 85.7 mL/min [facility] Comment on above: Calculation based on the Chronic Kidney Disease Epidemiology Collaboration (CKD-EPI) equation refit without adjustment for race Glucose [Mass/Vol] 114 mg/dL 82 - 115 mg/dL [facility] Interpretation and review of laboratory results Abnormal [facility] Potassium [Moles/Vol] 3.2 mmol/L Low 3.5 - 5.1 mmol/L [facility] Comment on above: Plasma potassium chandler ues may be up to 0.5 mmol/L lower than serum values. Sodium [Moles/Vol] 143 mmol/L 136 - 145 mmol/L [facility] Urea nitrogen [Mass/Vol] 12 mg/dL 9 - 23 mg/dL [facility] Anion gap [Moles/Vol] 11 mmol/L 3 - 13 mmol/L [facility] Calcium [Mass/Vol] 7.8 mg/dL Low 8.8 - 10. 0 mg/dL [facility] Chloride [Moles/Vol] 105 mmol/L 98 - 10 7 mmol/L [facility] CO2 [Moles/Vol] 22 mmol/L Low 23 - 31 mmol/L [facility] Creatinine [Mass/Vol] 0.64 mg/dL 0.57 - 1.11 mg/dL [facility] GFR/1.73 sq M.predicted (S/P/Bld) [Vol rate/Area] 87.3 mL/min - [facility] Comment on above: Calculation based on the Chronic Kidney Disease Epidemiology Collaboration (CKD-EPI) equation refit without adjustment for race Glucose [Mass/Vol] 111 mg/dL 82 - 115 mg/dL [facility] Interpretation and review of laboratory results Abnormal [facility] Potassium [Moles/Vol] 3 mmol/L Low 3.5 - 5.1 mmol/L [facility] Comment on above: Plasma potassium chandler ues may be up to 0.5 mmol/L lower than serum values. Sodium [Moles/Vol] 138 mmol/L 136 - 145 mmol/L [facility] Urea nitrogen [Mass/Vol] 12 mg/dL 9 - 23 mg/dL [facility] COMPLETE URINALYSIS WITH REF SIGIFREDO TO CULTUREon 11-08-2024 BACTERIA (#/HPF) IN URINE Negative Normal Negative [facility] Comment on above: Performed By: #### L [id number] ####Staff Field Engineer: LYDIA LION ([id number])[facility] ([facility])[address] [place] [address] BILIRUBIN, TOTAL PRESENCE IN URINE Negative Normal Negative [facility] Comment on above: Performed By: #### L [id number] ####Staff Field Engineer: LYDIA LION ([id number])[facility] ([facility])[address] [place] [address] Clarity (U) Clear Normal Clear [facility] Comment on above: Performed By: #### L [id number] ####Staff Field Engineer: LYDIA LION ([id number])[facility] ([facility])[address] [place] [address] Color (U) Light Yellow Normal Lt. Yellow [facility] Comment on above: Performed By: #### L [id number] ####Staff Field Engineer: LYDIA LION ([id number])[facility] ([facility])[address] [place] [address] Glucose (U) [Mass/Vol] 50 mg/dL Normal Normal (<70) [facility] Comment on above: Performed By: #### L [id number] ####Staff Field Engineer: LYDIA LION ([id number])[facility] ([facility])[address] [place] [address] HEMOGLOBIN PRESENCE IN URINE 1.0 mg/dL Abnormal Negative [facility] Comment on above: Performed By: #### L [id number] ####Staff Field Engineer: LYDIA LION ([id number])[facility] ([facility])[address] [place] [address] Ketones Ql (U) >150 Abnormal Negative [facility] Comment on above: Performed By: #### L [id number] ####Staff Field Engineer: LYDIA LION ([id number])[facility] ([facility])[address] [place] [address] LEUKOCYTE ESTERASE PRESENCE IN URINE BY TEST STRIP Negative Normal Negative [facility] Comment on above: Performed By: #### L [id number] ####Staff Field Engineer: LYDIA LION ([id number])[facility])[address] [place] [address] MUCUS (#/LPF) IN URINE SEDIMENT Few Normal Negative [facility] Comment on above: Performed By: #### L [id number] ####Staff Field Engineer: LYDIA LION ([id number])[facility] ([facility])[address] [place] [address] NITRITE PRESENCE IN URINE Negative Normal Negative [facility] Comment on above: Performed By: #### L [id number] ####Staff Field Engineer: LYDIA LION ([id number])[facility] ([facility])[address] [place] [address] pH (U) 6.0 [pH] Normal 5.0-8.0 [facility] Comment on above: Performed By: #### L [id number] ####Staff Field Engineer: LYDIA LION ([id number])[facility] ([facility])[address] [place] [address] Protein (U) [Mass/Vol] 100 mg/dL Abnormal Negative [facility] Comment on above: Performed By: #### L [id number] ####Staff Field Engineer: LYDIA LION ([id number])[facility])[address] [place] [address] RBC (#/HPF) IN URINE SEDIMENT 26-50 Abnormal 0-2 [facility] Comment on above: Performed By: #### L [id number] ####Staff Field Engineer: LYDIA LION ([id number])[facility])[address] [place] [address] Specific gravity (U) [Rel density] 1.018 Normal 1.005-1.03 0 [facility] Comment on above: Result Comment: BRANDEN R COMMENTS:A specimen with <=10 WBC is not consistent with inflammation. This specimen will not reflex to a urine culture. Performed By: #### L [id number] ####Staff Field Engineer: LYDIA LION ([id number])[facility] ([facility])[address] [place] [address] SQUAMOUS EPITHELIAL CELLS (#/HPF) IN URINE SEDIMENT Negative Normal 3-5 [facility] Comment on above: Performed By: #### L [id number] ####Staff Field Engineer: LYDIA LION ([id number])[facility] ([facility])[address] [place] [address] UROBILINOGEN (MG/DL) IN URINE Normal Normal Normal (0-1) [facility] Comment on above: Performed By: #### L [id number] ####Staff Field Engineer: LYDIA LION ([id number])[facility] ([facility])[address] [place] [address] WBC (LEUKOCYTE) (#/HPF) IN URINE SEDIMENT 0-2 Normal 0-5 [facility] Comment on above: Performed By: #### L [id number] ####Staff Field Engineer: LYDIA LION ([id number])[facility] ([facility])[address] [place] [address] Consulton 11-08-2024 Consult Normal [facility] - Chemistry and C hemistry - challengeon 11-08-2024 Magnesium [Mass/Vol] 1.7 mg/dL 1.6 - 2 .6 mg/dL [facility] Glucose [Mass/Vol] 110 mg/dL High 70 - 100 mg/dL [facility] Procalcitonin [Mass/Vol] 0.28 ng/mL High NINF - 0.07 ng/mL [facility] Magnesium [Mass/Vol] 1.6 mg/dL 1.6 - 2 .6 mg/dL [facility] Lactate [Moles/Vol] 0.7 mmol/L 0.5 - 2. 2 mmol/L [facility] MAGNESIUMon 11-08-2024 Magnesium [Mass/Vol] 1.7 mg/dL Normal 1.6-2.6 [facility] Comment on above: Result Comment: BRANDEN Rubio COMMENTS:Higher values can be expected in females during menses. Performed By: #### L [id number], [id number] ####Staff Field Engineer: LYDIA LION ([id number])[facility] ([facility])[address] [place] [address] [place] Magnesium [Mass/Vol]on 11-08 Interpretation and review of laboratory results Normal [facility] Higher values can be expected in females during menses. [facility] Interpretation and review of laboratory results Normal [facility] Higher values can be expected in females during menses. [facility] Natriuretic peptide B [Mass/ Vol]on 11-08-2024 Interpretation and review of laboratory results Abnormal [facility] Natriuretic peptide B (Bld) [Mass/Vol] 83373 pg/mL High NINF - 450 pg/mL [facility] No Panel InformationOrdered By: Sari Cuevas on 11-08-2024 Interpretation and review of laboratory results Normal [facility] Legionella pneumophila Ag Not detected Not Detected [facility] Streptococcus pneumoniae Ag Not detected Not Detected [facility] Methodology: Lateral flow enzyme immunoassay This assay is approved for detection of antigens to Streptococcus pneumoniae and Legionella pneumophila serogroup 1; however, other L. pneumophila serogroups may also be detected. [facility] No Panel Informationon 11-08 Interpretation and review of laboratory results Abnormal [facility] Performed by: [facility], [address] [place] [address] CLIA ID: [id number] [facility] Interpretation and review of laboratory results Normal [facility] Procalcitonin [Mass/Vol]on 0 11-08-2024 Interpretation and review of laboratory results Abnormal [facility] PCT <0.50 = Low risk of severe sepsis and/or septic shock. PCT >2.00 = High risk of severe sepsis and/or septic shock. [facility] Progress Noteon 11-08-2024 Progress Note Normal [facility] Progress Note Normal [facility] Respiratory pathogens DNA an d RNA panel FREDERIC+non-probe (Nph)on 11-08-2024 Adenovirus Not detected Not Detected [facility] B. pertussis DNA FREDERIC+probe Ql (Unsp spec) Not detected Not Detected [facility] Bordetella parapertussis Not detected Not Detected [facility] Chlamydia pneumoniae Not detected Not Detected [facility] Coronavirus 229E Not detected Not Detected [facility] Coronavirus HKU1 Not detected Not Detected [facility] Coronavirus NL63 Not detected Not Detected [facility] Coronavirus OC43 Not detected Not Detected [facility] FLUAV RNA FREDERIC+non-probe Ql (Nph) Not detected Not Detected [facility] FLUBV RNA FREDERIC+non-probe Ql (Nph) Not detected Not Detected [facility] Human Metapneumovirus Not detected Not Detected [facility] Human Rhinovirus/Enteroviru s Not detected Not Detected [facility] Interpretation and review of laboratory results Normal [facility] Mycoplasma pneumoniae Not detected Not Detected [facility] Parainfluenza 1 Not detected Not Detected [facility] Parainfluenza 2 Not detected Not Detected [facility] Parainfluenza 3 Not detected Not Detected [facility] Parainfluenza 4 Not detected Not Detected [facility] Respiratory Syncytial Virus Not detected Not Detected [facility] SARS-CoV-2 (COVID-19) RNA FREDERIC+non-probe Ql (Nph) Not detected Not Detected [facility] Methodology: Multiplex PCR [facility] Urinalysis complete panel (U )Ordered By: Urvashi Armas on 11-08-2024 Bacteria LM.HPF (Urine sed) [#/Area] Negative Negative /HPF [facility] Bilirubin Ql (U) Negative Negative mg/dL [facility] Clarity (U) Clear Clear [facility] Color (U) Light Yellow Lt. Yellow [facility] Epithelial cells.squamous LM.HPF (Urine sed) [#/Area] Negative [facility] h Glucose Ql (U) 50 mg/dL Normal (<70) [facility] Hemoglobin Ql (U) 1.0 mg/dL Abnormal Negative [facility] Interpretation and review of laboratory results Abnormal [facility] Ketones (U) [Mass/Vol] mg/dL Abnormal Negative mg/dL [facility] Leukocyte esterase Test strip Ql (U) Negative Negative Fahad/uL [facility] Mucus LM.HPF (Urine sed) [#/Area] Few Negative /LPF [facility] Nitrite Ql (U) Negative Negative [facility] th pH (U) 6.0 [pH] 5.0 - 8.0 pH [facility] Protein (U) [Mass/Vol] 100 mg/dL Abnormal Negative [facility] RBC LM.HPF (Urine sed) [#/Area] 26-50 Abnormal [facility] Specific gravity (U) [Rel density] 1.018 1.005 - 1.030 [facility] Urobilinogen (U) [Mass/Vol] Normal Normal (0-1) mg/dL [facility] WBC LM.HPF (Urine sed) [#/Area] 0-2 [facility] A specimen with <=10 WBC is not consistent with inflammation. This specimen will not reflex to a urine culture. [facility] BASIC METABOLIC PANELon 05-3 0-2024 Anion gap [Moles/Vol] 11 mmol/L Normal 3-13 [facility] Comment on above: Performed By: #### L AB15, [id number], [id number], QHS566 ####Staff Field Engineer: LYDIA LION ([id number])[facility])[address] [place] [address] Calcium [Mass/Vol] 7.8 mg/dL Low 8.8-10.0 [facility] Comment on above: Performed By: #### L AB15, [id number], [id number], RQN255 ####Staff Field Engineer: LYDIA LION ([id number])[facility] ([facility])[address] [place] [address] Chloride [Moles/Vol] 105 mmol/L Normal 98-107 [facility] Comment on above: Performed By: #### L AB15, [id number], [id number], ZUH731 ####Staff Field Engineer: LYDIA LION ([id number])[facility] ([facility])[address] [place] [address] [place] CO2 [Moles/Vol] 22 mmol/L Low 23-31 [facility] Comment on above: Performed By: #### L AB15, QPA215, [id number], BXT962 ####Staff Field Engineer: LYDIA LION ([id number])[facility])[address] [place] [address] Creatinine [Mass/Vol] 0.64 mg/dL Normal 0.57-1.11 [facility] Comment on above: Performed By: #### L AB15, [id number], [id number], [id number] ####Staff Field Engineer: LYDIA LION ([id number])[facility])[address] [place] [address] GLOMERULAR FILTRATION RATE ML/MIN/1.73 SQ M.PREDICTED 87.3 mL/min/1.73m*2 Normal >60.0 [facility] Comment on above: Result Comment: Calc ulation based on the Chronic Kidney Disease Epidemiology Collaboration (CKD-EPI) equation refit without adjustment for race Performed By: #### L AB15, EXN528, [id number], FNR824 ####Staff Field Engineer: LYDIA LION ([id number])[address] Glucose [Mass/Vol] 111 mg/dL Normal 82-115 [facility] Comment on above: Performed By: #### L AB15, EIH395, [id number], ADQ274 ####Staff Field Engineer: LYDIA LION ([id number])[address] Potassium [Moles/Vol] 3.0 mmol/L Low 3.5-5.1 [facility] Comment on above: Result Comment: [facility] potassium values may be up to 0.5 mmol/L lower than serum values. Performed By: #### L AB15, CAC940, [id number], [id number] ####Staff Field Engineer: LYDIA LION ([id number])[place] [address] [place] Sodium [Moles/Vol] 138 mmol/L Normal 136-145 [facility] Comment on above: Performed By: #### L AB15, [id number], [id number], FLR552 ####Staff Field Engineer: LYDIA LION ([id number])[place] [address] [place] Urea nitrogen [Mass/Vol] 12 mg/dL Normal 9-23 [facility] Comment on above: Performed By: #### L AB15, CDR611, [id number], [id number] ####Staff Field Engineer: LYDIA LION ([id number])[facility] ([facility])[address] [place] [address] BLOOD CULTUREon 11-07-2024 Bacteria identified Cx Nom (Bld) Normal [facility] Comment on above: Performed By: #### L [id number] ####Staff Field Engineer: LYDIA LION ([id number])[facility] ([facility])[address] [place] [address] CBC W Auto Differential pane l (Bld)Ordered By: Amy Mcneil on 11-07-2024 Basophils (Bld) [#/Vol] 0 10*3/uL 0.0 - 0.2 10*3/uL [facility] Basophils/100 WBC (Bld) 0.1 % 0.0 - 2.0 % [facility] Eosinophils (Bld) [#/Vol] 0 10*3/uL 0.0 - 0.5 10*3/uL [facility] Eosinophils/100 WBC (Bld) 0.1 % 0.0 - 6.0 % [facility] Erythrocyte distribution width (RBC) [Ratio] 15.3 % High 11.5 - 15.0 % [facility] Hematocrit (Bld) [Volume fraction] 26.1 % Low 35.0 - 47.0 % [facility] Hemoglobin (Bld) [Mass/Vol] 8.7 g/dL Low 11.7 - 16.0 g/dL [facility] Immature granulocytes (Bld) [#/Vol] 0.4 10*3/uL High NINF - 0.1 10*3/uL [facility] Immature granulocytes/100 WBC (Bld) 1.5 % 0.0 - 2.0 % [facility] Interpretation and review of laboratory results Abnormal [facility] Lymphocytes (Bld) [#/Vol] 1.2 10*3/uL 1.0 - 4.3 10*3/uL [facility] Lymphocytes/100 WBC (Bld) 4.5 % Low 15.0 - 45.0 % [facility] MCH (RBC) [Entitic mass] 28.4 pg 26.0 - 34.0 pg [facility] MCHC (RBC) [Mass/Vol] 33.3 % 30.5 - 36.0 % [facility] MCV (RBC) [Entitic vol] 85.3 fL 77.0 - 99.0 fL [facility] Monocytes (Bld) [#/Vol] 6.3 10*3/uL High 0.0 - 0.9 10*3/uL [facility] Monocytes/100 WBC (Bld) 23.6 % High 5.0 - 13.0 % [facility] Neutrophils (Bld) [#/Vol] 18.7 10*3/uL High 1.8 - 7.5 10*3/uL [facility] Neutrophils/100 WBC (Bld) 70.2 % 38.0 - 82.0 % [facility] Nucleated RBC/100 WBC (Bld) [Ratio] 0 % [facility] Platelet mean volume (Bld) [Entitic vol] 12.2 fL 9.0 - 12.7 fL [facility] Platelets (Bld) [#/Vol] 148 10*3/uL 140 - 440 10*3/uL [facility] RBC (Bld) [#/Vol] 3.06 10*6/uL Low 3.80 - 5.20 10*6/uL [facility] WBC (Bld) [#/Vol] 26.7 10*3/uL High 3.6 - 10.7 10*3/uL [facility] CBC WITH AUTO DIFFERENTIALon 11-07-2024 Basophils (Bld) [#/Vol] 0.0 10*3/uL Normal 0.0-0.2 [facility] Comment on above: Performed By: #### L [id number] ####Staff Field Engineer: LYDIA [id number])[address] Basophils/100 WBC (Bld) 0.1 % Normal 0.0-2.0 [facility] Comment on above: Performed By: #### L [id number] ####Staff Field Engineer: LYDIA [id number])[address] Eosinophils (Bld) [#/Vol] 0.0 10*3/uL Normal 0.0-0.5 [facility] Comment on above: Performed By: #### L [id number] ####Staff Field Engineer: LYDIA [id number])[facility] [place] [address] Eosinophils/100 WBC (Bld) 0.1 % Normal 0.0-6.0 [facility] Comment on above: Performed By: #### L [id number] ####Staff Field Engineer: LYDIA LION ([id number])[facility])[address] [place] [address] Erythrocyte distribution width (RBC) [Ratio] 15.3 % High 11.5-15.0 [facility] Comment on above: Performed By: #### L [id number] ####Staff Field Engineer: LYDIA LION ([id number])[facility])[address] [place] [address] Hematocrit (Bld) [Volume fraction] 26.1 % Low 35.0-47.0 [facility] Comment on above: Performed By: #### L [id number] ####Staff Field Engineer: LYDIA LION ([id number])[facility])[address] [place] [address] Hemoglobin (Bld) [Mass/Vol] 8.7 g/dL Low 11.7-16.0 [facility] Comment on above: Performed By: #### L [id number] ####Staff Field Engineer: LYDIA LION ([id number])[facility])[address] [place] [address] IMMATURE GRANS % 1.5 % Normal 0.0-2.0 [facility] Comment on above: Performed By: #### L [id number] ####Staff Field Engineer: LYDIA LION ([id number])[facility])[address] [place] [address] IMMATURE GRANS ABSOLUTE 0.4 10*3/uL High <0.1 [facility] Comment on above: Performed By: #### L [id number] ####Staff Field Engineer: LYDIA LION ([id number])[facility])[address] [place] [address] Lymphocytes (Bld) [#/Vol] 1.2 10*3/uL Normal 1.0-4.3 [facility] Comment on above: Performed By: #### L [id number] ####Staff Field Engineer: LYDIA LION ([id number])[facility])[address] [place] [address] Lymphocytes/100 WBC (Bld) 4.5 % Low 15.0-45.0 [facility] Comment on above: Performed By: #### L [id number] ####Staff Field Engineer: LYDIA LION ([id number])[facility])[address] [place] [address] MCH (RBC) [Entitic mass] 28.4 pg Normal 26.0-34.0 [facility] Comment on above: Performed By: #### L [id number] ####Staff Field Engineer: LYDIA LION ([id number])[facility])[address] [place] [address] MCHC 33.3 % Normal 30.5-36.0 [facility] Comment on above: Performed By: #### L [id number] ####Staff Field Engineer: LYDIA LION ([id number])[facility])[address] [place] [address] MCV (RBC) [Entitic vol] 85.3 fL Normal 77.0-99.0 [facility] Comment on above: Performed By: #### L [id number] ####Staff Field Engineer: LYDIA LION ([id number])[facility])[address] [place] [address] Monocytes (Bld) [#/Vol] 6.3 10*3/uL High 0.0-0.9 [facility] Comment on above: Performed By: #### L [id number] ####Staff Field Engineer: LYDIA LION ([id number])[facility])[address] [place] [address] Monocytes/100 WBC (Bld) 23.6 % High 5.0-13.0 [facility] Comment on above: Performed By: #### L [id number] ####Staff Field Engineer: LYDIA LION ([id number])[facility] ([facility])[address] [place] [address] NEUTROPHILS ABSOLUTE 18.7 10*3/uL High 1.8-7.5 [facility] Comment on above: Performed By: #### L [id number] ####Staff Field Engineer: LYDIA LION ([id number])[facility])[address] [place] [address] Neutrophils/100 WBC (Bld) 70.2 % Normal 38.0-82.0 [facility] Comment on above: Performed By: #### L [id number] ####Staff Field Engineer: LYDIA LION ([id number])[facility])[address] [place] [address] NRBC 0.0 /100 WBCs Normal 0.0-2.0 [facility] Comment on above: Performed By: #### L [id number] ####Staff Field Engineer: LYDIA LION ([id number])[facility] ([facility])[address] [place] [address] Platelet mean volume (Bld) [Entitic vol] 12.2 fL Normal 9.0-12.7 [facility] Comment on above: Performed By: #### L [id number] ####Staff Field Engineer: LYDIA LION ([id number])[facility])[address] [place] [address] Platelets (Bld) [#/Vol] 148 10*3/uL Normal 140-440 [facility] Comment on above: Performed By: #### L [id number] ####Staff Field Engineer: LYDIA LION ([id number])[facility] ([facility])[address] [place] [address] RBC (Bld) [#/Vol] 3.06 10*6/uL Low 3.80-5.20 [facility] Comment on above: Performed By: #### L [id number] ####Staff Field Engineer: LYDIA LION ([id number])[facility] [address] WBC (Bld) [#/Vol] 26.7 10*3/uL High 3.6-10.7 [facility] Comment on above: Performed By: #### L [id number] ####Staff Field Engineer: LYDIA LION ([id number])[facility])[address] [place] [address] LACTIC ACID WITH REFLEXon Lactate [Moles/Vol] 0.7 mmol/L Normal 0.5-2.2 [facility] Comment on above: Performed By: #### L [id number] ####Staff Field Engineer: LYDIA LION ([id number])[address] LEGIONELLA AND STREPTOCOCCUS URINE ANTIGENon 11-07-2024 LEGIONELLA AND STREPTOCOCCUS URINE ANTIGEN Normal [facility] Comment on above: Performed By: #### L [id number] ####Staff Field Engineer: LYDIA LION ([id number])[facility])[address] [place] [address] MAGNESIUMon 11-07-2024 Magnesium [Mass/Vol] 1.6 mg/dL Normal 1.6-2.6 [facility] Comment on above: Result Comment: BRANDEN Rubio COMMENTS:Higher values can be expected in females during menses. Performed By: #### L AB15, [id number], [id number], [id number] ####Staff Field Engineer: LYDIA LION ([id number])[facility])[address] [place] [address] NT PRO BNPon 11-07-2024 Natriuretic peptide B (Bld) [Mass/Vol] 26074 pg/mL High <450 [facility] Comment on above: Performed By: #### L AB15, [id number], [id number], [id number] ####Staff Field Engineer: LYDIA LION ([id number])[facility])[address] [place] [address] PROCALCITONIN TESTon 025 PROCALCITONIN 0.28 ng/mL High <0.07 [facility] Comment on above: Result Comment: ORDE R COMMENTS:PCT <0.50 = Low risk of severe sepsis and/or septic shock.PCT >2.00 = High risk of severe sepsis and/or septic shock. Performed By: #### L AB15, [id number], [id number], [id number] ####Staff Field Engineer: LYDIA LION ([id number])[facility] ([facility])[address] [place] [address] RESPIRATORY PATHOGENS PANEL BY PCRon 11-07-2024 RESPIRATORY PATHOGENS PANEL BY PCR Normal [facility] Comment on above: Performed By: #### L [id number] ####Staff Field Engineer: LYDIA LION ([id number])[facility] ([facility])[address] [place] [address] XR CHEST 1 VIEWon 11-07-2024 XR CHEST 1 VIEW Normal [facility] [employer] [facility] XR Chest Single viewon 11-07 Consolidation in the right upper lobe likely pneumonia. Further opacity in the left lower hemithorax probably consolidation or atelectasis and pleural fluid Report Dictated on Electronically Signed By: Giovanni Irby MD Electronically Signed Date/Time: 11/07/2024 9:50 PM EDT [facility] Patient Name: KATHRYN MCINTOSH : 1940 Exam Date/Time: 11/07/2024 21:39 Procedure: XR CHEST 1 VIEW Ordering Provider: HILL ROSS Reason For Exam: decreased O2 PORTABLE CHEST CLINICAL INDICATION: Shortness of breath. TECHNIQUE: Portable AP COMPARISON: 07/18/2024 FINDINGS: Exam quality: The study is degraded due to overlying radiopaque artifacts. Heart size is normal and mediastinum is unremarkable. There is dense opacity in the left lower hemithorax obscuring the hemidiaphragm and costophrenic angle, likely consolidation or atelectasis and pleural fluid. There is further patchy consolidation throughout the right upper lobe. Right costophrenic angle is sharp. Degenerative change of the thoracic spine is noted. [facility] Giovanni Irby MD - 11/07/2024 [facility] Name: [facility] : 1940 [id number] Exam Date/Time: 11/07/2024 21:39 Procedure: XR CHEST 1 VIEW Ordering Provider: HILL ROSS Reason For Exam: decreased O2 PORTABLE CHEST CLINICAL INDICATION: Shortness of breath. TECHNIQUE: Portable AP COMPARISON: 07/18/2024 FINDINGS: Exam quality: The study is degraded due to overlying radiopaque artifacts. Heart size is normal and mediastinum is unremarkable. There is dense opacity in the left lower hemithorax obscuring the hemidiaphragm and costophrenic angle, likely consolidation or atelectasis and pleural fluid. There is further patchy consolidation throughout the right upper lobe. Right costophrenic angle is sharp. Degenerative change of the thoracic spine is noted. IMPRESSION: Consolidation in the right upper lobe likely pneumonia. Further opacity in the left lower hemithorax probably consolidation or atelectasis and pleural fluid Report Dictated on Electronically Signed By: Giovanni Irby MD Electronically Signed Date/Time: 11/07/2024 9:50 PM EDT [facility] Radiology Study observation (narrative) [facility] [employer] XR Chest Single viewOrdered By: Giovanni Irby on 11-07-2024 [facility] [employer] Work Phone: Additional Injections: L hank g A1on 10-27-2024 Bharati Dumont Jr., MD 10/27/2024 2:09 PM Additional Injections: L long A1 for trigger finger 10/27/2024 2:08 PM The procedure site was prepped in the usual sterile fashion. Medications: 6 mg betamethasone acetate-betamethasone sodium phosphate 6 mg/mL Anesthetics: 1 mL lidocaine (PF) 10 mg/mL (1 %) Outcome: tolerated well, no immediate complications Post-injection instructions were reviewed with the patient and the patient voiced understanding of these instructions. Informed Consent [place] Protocol A moment to CARE was completed. SIGN IN Personnel directly involved with the procedure wore the appropriate PPE. Patient/Surrogate Stated/Verified: Patient name, Date of , Relevant allergies and Intended procedure TIME OUT Relevant labs, photos, and/or imaging studies have been reviewed. Correct side/site marked and visible. Medications required for procedure verified. No implant(s) inserted. SIGN OUT All instruments, equipment, possible retained foreign bodies accounted for. [facility] Additional Injections: L rin g A1on 10-27-2024 Bharati Dumont Jr., MD 10/27/2024 2:09 PM Additional Injections: L ring A1 for trigger finger 10/27/2024 2:09 PM The procedure site was prepped in the usual sterile fashion. Medications: 6 mg betamethasone acetate-betamethasone sodium phosphate 6 mg/mL Anesthetics: 1 mL lidocaine (PF) 10 mg/mL (1 %) Outcome: tolerated well, no immediate complications Post-injection instructions were reviewed with the patient and the patient voiced understanding of these instructions. Informed Consent [place] Protocol A moment to CARE was completed. SIGN IN Personnel directly involved with the procedure wore the appropriate PPE. Patient/Surrogate Stated/Verified: Patient name, Date of , Relevant allergies and Intended procedure TIME OUT Relevant labs, photos, and/or imaging studies have been reviewed. Correct side/site marked and visible. Medications required for procedure verified. No implant(s) inserted. SIGN OUT All instruments, equipment, possible retained foreign bodies accounted for. [facility] CNOVon 10-27-2024 CNOV Office Visit (AGHWG1 ) KATHRYN TAMEZ I ([id number]) 1940 F Date Time Provider Department 10/27/24 1:45 PM [facility] your visit today, we recorded the following information about you: Respiration Weight Height 17/minute 54 kg 1.524 m Bharati Dmuont Jr., MD 10/27/2024 2:09 PM Signed 10/27/2024 :1940 Kathryn Tamez HISTORY OF CHIEF COMPLAINT: Kathryn is seeing me as a follow up patient today. She complains of stiffness of all fingers. She also complains of locking of her right small finger. She has difficulty making a fist. She has right wrist pain. She states she has locking of all fingers of the left hand. She wakes up at night with her fingers locked and she has to manually pull her fingers out of flexion. She denies any numbness or tingling, and otherwise has no complaints. PAST MEDICAL HISTORY Diagnosis Date Acquired hypothyroidism Acute gastritis Adjustment disorder with depressed mood Allergic rhinitis Alopecia Arthritis left knee replaced 3 times Atrophic vaginitis Basal cell carcinoma of nasolabial groove Chronic pain Chronic pelvic pain in female Constipation COPD (chronic obstructive pulmonary disease) (HCC) Depression Dysuria Epigastric pain Essential hypertension External ear conductive hearing loss Female stress incontinence Fibromyalgia Functional diarrhea Functional disorder of bladder Generalized abdominal pain H/O goiter s/p thyroidectomy Headache Hip pain History of fall History of kidney problems renal cell carcinoma Hyperkalemia Hyperlipidemia Impacted cerumen Incomplete emptying of bladder Incontinence of feces Increased frequency of urination Jaw pain Joint pain Leukocytosis Lumbar back pain Medication monitoring encounter Migraine with aura Mitral valve prolapse Muscle pain Muscle spasms of neck and/or neck Muscle weakness Must strain to pass urine Nausea and vomiting Neck pain Neoplasm of brain (HCC) Nocturia Obesity Osteoporosis Pain in lower limb Pain in wrist Painful urging to urinate Periumbilical pain Primary fibromyalgia syndrome Dr. Clay Primary malignant neoplasm of kidney (HCC) Refractory migraine with aura Restless legs Sleep deprivation Spasm of back muscles Temporomandibular joint disorder Tobacco dependence syndrome Tobacco use quit smoking in 04-25 Urinary incontinence, mixed Urinary tract infectious disease Viral gastroenteritis PAST SURGICAL HISTORY Procedure Laterality Date ANKLE SURGERY HX Right 2013 ankle ARTHRP KNE CONDYLEANDPLATU MEDIALANDLAT COMPARTMENTS Left X3 CHOLECYSTECTOMY COLONOSCOPY 08/05/2018 Dr. Guan (repeat in 10 years) HAND SURGERY HX Right 04/2022 KIDNEY SURGERY HX Left 2003 Removed- renal cell CA LEG SURGERY HX x6 PAST SURGICAL HISTORY OF 06/26/2015 Temporary Implant placed right hip for bladder control PAST SURGICAL HISTORY OF 07/02/2015 Permanent implant placed right hip for bladder control PAST SURGICAL HISTORY OF Left Hip fracture PAST SURGICAL HISTORY OF Left Broken Femur PAST SURGICAL HISTORY OF Right 07/26/2023 rt ring finger release THYROID SURGERY HX 2004 partial TOTAL ABDOMINAL HYSTERECT W/WO RMVL TUBE OVARY BSO Social History Tobacco Use Smoking status: Former Current packs/day: 0.00 Types: Cigarettes Start date: 08/18/1958 Quit date: 08/18/2018 Years since quittin.1 Smokeless tobacco: Never Tobacco comments: One pack of cigarettes every 3 weeks Vaping Use Vaping status: Never Used Substance Use Topics Alcohol use: No Comment: Rarely Drug use: No Medications: Current Outpatient Medications Medication Sig Dispense Refill levothyroxine (SYNTHROID) 88 mcg tablet Take 1 tablet by mouth once daily. 90 tablet 1 sertraline (ZOLOFT) 100 mg tablet Take 2 tablets by mouth once daily. 180 tablet 0 SUMAtriptan (IMITREX) 50 mg tablet Take 1 tablet by mouth as needed (at onset of headache. May repeat after 2 hours.). 9 tablet 1 gabapentin (NEURONTIN) 300 mg capsule Take 300 mg by mouth two times a day. Pain MGMT No current facility-administered medications for this visit. ALLERGIES No Known Allergies There were no vitals taken for this visit. PHYSICAL EXAMINATION: General: she is a well developed, well nourished female Musculoskeletal: There is no swelling or ecchymosis. There are no skin lacerations or abrasions. There are no Heberden's or Tiffanie's nodes. There is no boutonniere or swan-neck deformity of the fingers. There is no ulnar drift of the fingers. There is no intrinsic muscular atrophy. There is a negative shoulder sign over the thumb CMC joint. There is no dorsal subluxation of the ulnar head. She has active triggering left middle finger and left ring finger. ASSESSMENT: Tr (more content not included)... Normal [facility] CNOVon 10-20-2024 [facility] Office Visit (AGFAMP SS) KATHRYN TAMEZ I ([id number]) 1940 F Date Time Provider Department 10/20/24 1:20 PM KEVIN WOOD During your visit today, we recorded the following information about you: Temperature Pulse Blood pressure Weight 96.7 degrees 70/minute 123/81 54 kg Height 1.524 m Kevin Wood MD 10/20/2024 2:01 PM Signed CC: Preoperative Risk Assessment and Evaluation S: 84 year old female with history of migraines, hypothyroidism, MDD, ARABELLA, COPD presents for Preoperative Risk Assessment and Evaluation. Surgery - Posterior Fusion L2-3-4-5, Revision Decompression L2-3-4-5, Pedicle Instrumentation, Local Bone Allograft Date - 11/04/2024 Surgeon - Dr. Cali Morrison No prior reactions to anesthesia. No changes since last visit August 2024. Treated for UTI - asymptomatic today. Recent UA wnl. Revised Cardiac Risk Index: (>1 = high risk) - High risk surgery (intraperitoneal, intrathoracic or supra-inguinal vascular procedures): No - History of ischemic heart disease: No - History of CHF: No - History of CVA or TIA: No - Preop treatment with Insulin: No - Preop serum Cr > 2.0: No (may also use cardiac complication risk at ACS NSQIP [email or web address]): (> 1% = high risk) 0-3 = low risk 4+ = high risk Functional Assessment: - Climb a flight of stairs or walk up a hill? 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 Yes (4.5) SOCIAL HISTORY: Tobacco: quit smoking 4 years ago. Alcohol: very rarely. CHIDI screen: - Snoring: Yes - Tiredness: No - Observed Apnea: No - Hypertension: No - BMI > 35: No - Age > 50: Yes - Neck circumference > 17 in: No - Male gender: No MEDICAL HISTORY PAST MEDICAL HISTORY PAST MEDICAL HISTORY Diagnosis Date Acquired hypothyroidism Acute gastritis Adjustment disorder with depressed mood Allergic rhinitis Alopecia Arthritis left knee replaced 3 times Atrophic vaginitis Basal cell carcinoma of nasolabial groove Chronic pain Chronic pelvic pain in female Constipation COPD (chronic obstructive pulmonary disease) (HCC) Depression Dysuria Epigastric pain Essential hypertension External ear conductive hearing loss Female stress incontinence Fibromyalgia Functional diarrhea Functional disorder of bladder Generalized abdominal pain H/O goiter s/p thyroidectomy Headache Hip pain History of fall History of kidney problems renal cell carcinoma Hyperkalemia Hyperlipidemia Impacted cerumen Incomplete emptying of bladder Incontinence of feces Increased frequency of urination Jaw pain Joint pain Leukocytosis Lumbar back pain Medication monitoring encounter Migraine with aura Mitral valve prolapse Muscle pain Muscle spasms of neck and/or neck Muscle weakness Must strain to pass urine Nausea and vomiting Neck pain Neoplasm of brain (HCC) Nocturia Obesity Osteoporosis Pain in lower limb Pain in wrist Painful urging to urinate Periumbilical pain Primary fibromyalgia syndrome Dr. Clay Primary malignant neoplasm of kidney (HCC) Refractory migraine with aura Restless legs Sleep deprivation Spasm of back muscles Temporomandibular joint disorder Tobacco dependence syndrome Tobacco use quit smoking in 04-25 Urinary incontinence, mixed Urinary tract infectious disease Viral gastroenteritis SURGICAL HISTORY PAST SURGICAL HISTORY PAST SURGICAL HISTORY Procedure Laterality Date ANKLE SURGERY HX Right 2012 ankle ARTHRP KNE CONDYLEANDPLATU MEDIALANDLAT COMPARTMENTS Left X3 CHOLECYSTECTOMY COLONOSCOPY 08/05/2018 Dr. Guan (repeat in 10 years) HAND SURGERY HX Right 04/2022 KIDNEY SURGERY HX Left 2003 Removed- renal cell CA LEG SURGERY HX x6 PAST SURGICAL HISTORY OF 06/26/2015 Temporary Implant placed right hip for bladder control PAST SURGICAL HISTORY OF 07/02/2015 Permanent implant placed right hip for bladder control PAST SURGICAL HISTORY OF Left Hip fracture PAST SURGICAL HISTORY OF Left Broken Femur PAST SURGICAL HISTORY OF Right 07/26/2023 rt ring finger release THYROID SURGERY HX 2003 partial TOTAL ABDOMINAL HYSTERECT W/WO RMVL TUBE OVARY BSO MEDICATIONS AND ALLERGIES REVIEWED. LATEX ALLERGY: No ROS: GENERAL: No weight loss, malaise or fevers HEENT: Negative for frequent or significant headaches, No changes in hearing or vision, no nose bleeds or other nasal problems RESPIRATORY: Negative for cough, hemoptysis, wheezing, COPD, dyspnea or shortness of breath CARDIOVASCULAR: Negative for chest pain, leg swelling, hypertension, CHF or palpitations : No history of dysuria, frequency or incontinence SKIN: Negative for lesions, rash, and itching NEURO: No history of headaches, syncope, paralysis, seizures or tremors O: PHYSICAL EXAM: T (more content not included)... Normal [facility] Kylah 10-07-2024 DIOMEDES Telephone (AGFAMPSS) DASHAWNNABILKATHRYN Edith ([id number]) 1940 F Date Time Provider Department 10/07/24 LEONARDO LYLES During your visit today, we recorded the following information about you: Dena Guy 10/07/2024 10:40 AM Signed Pre op form from [facility] faxed in today. Pt scheduled with on 10/20/24 at 1:20. Form in purple folder on Dena's desk. Dena Guy October 07, 2024 10:40 AM Allergies As of Date: 10/07/2024 (No Known Allergies) Date Reviewed: 09/15/2024 Reviewed by: Cj Dale PA-C - Fully Assessed Reason for Visit: Clerical [Other] Prescriptions as of 10/07/2024 - sertraline (ZOLOFT) 100 mg tablet Take 2 tablets by mouth once daily. - levothyroxine (SYNTHROID) 88 mcg tablet Take 1 tablet by mouth once daily. - SUMAtriptan (IMITREX) 50 mg tablet Take 1 tablet (50 mg) by mouth as needed (at onset of headache. May repeat after 2 hours.). - gabapentin (NEURONTIN) 300 mg capsule Take 300 mg by mouth two times a day. 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] 01/25/2016 Frequency of urination [R35.0] 01/25/2016 06/24/2018 Fecal incontinence [R15.9] 01/25/2016 06/24/2018 Mixed incontinence [N39.46] 01/25/2016 Urgency of urination [R39.15] 01/25/2016 Stress incontinence in female [N39.3] 01/25/2016 Urge incontinence of urine [N39.41] 01/25/2016 Chronic pain disorder [G89.4] 09/18/2017 Low back pain [M54.50] 09/18/2017 Lumbar radiculopathy [M54.16] 06/20/2018 Myalgia [M79.10] 09/18/2017 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 therapy [Z79.899]09/18/2017 Other chronic pain [G89.29] 07/22/2017 Personal history of nicotine dependence [Z87.89*09/18/2017 Postprocedural state [Z98.890] 06/20/2018 Radiculopathy, lumbar region [M54.16] 09/18/2017 Feeling of incomplete bladder emptying [R39.14] 11/13/2017 Other bursitis of hip, left hip [M70.72] 06/20/2018 Other bursitis of hip, right hip [M70.71] 06/20/2018 Other bursitis of hip, unspecified hip [M70.70] 05/23/2018 Pain in left hip [M25.552] 03/27/2018 Pain in right hip [M25.551] 03/27/2018 Postlaminectomy syndrome, not elsewhere classif*01/24/2018 Radiculopathy, lumbosacral region [M54.17] 05/23/2018 Gastro-esophageal reflux disease without esopha*10/22/2018 Major depressive disorder, single episode, unsp*10/22/2018 Thyrotoxicosis, unspecified without thyrotoxic *10/22/2018 Gastroenteritis and colitis, viral [A08.4] 08/06/2018 Infection due to Norovirus species [A08.11] 08/06/2018 Vitamin D deficiency [E55.9] 08/06/2018 Severe malnutrition (HCC) [E43] 08/06/2018 Osteopenia of multiple sites [M85.89] 12/30/2018 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] 12/30/2018 Adjustment disorder with mixed anxiety and depr*02/02/2020 Abscess of right middle finger [L02.511] 07/13/2022 Preop examination [Z01.818] 07/26/2023 Trigger ring finger of right hand [M65.341] 07/26/2023 Trigger little finger of right hand [M65.351] 07/26/2023 Hypothyroidism [E03.9] 07/26/2023 Encounter Status:Closed by DENA GUY on 10/07/24 Normal [facility] Urinalysis complete panel (U )on 09-30-2024 Bacteria LM.HPF (Urine sed) [#/Area] Negative Normal Negative [facility] Comment on above: Order Comment: Speci men Type: URINE SPECIMEN Ordering Facility: [facility] Address: [address] [place] [address] Performed By: #### 2 4356-8 #### [facility] CLIA [id number] [address] [place] [address] [place] Bilirubin Ql (U) Negative Normal Negative [facility] Comment on above: Order Comment: Speci men Type: URINE SPECIMEN Ordering Facility: [facility] Address: [address] [place] [address] Performed By: #### 2 4356-8 #### [facility] CLIA [id number] [address] [place] [address] [place] Clarity (Unsp spec) Clear Normal Clear [facility] Comment on above: Order Comment: Speci men Type: URINE SPECIMEN Ordering Facility: [facility] Address: [address] [place] [address] Performed By: #### 2 4356-8 #### [facility] CLIA [id number] [address] [place] [address] [place] Color (U) Dark Yellow Abnormal Yellow [facility] Comment on above: Order Comment: Speci men Type: URINE SPECIMEN Ordering Facility: [facility] Address: [address] [place] [address] Performed By: #### 2 4356-8 #### [facility] CLIA [id number] [address] [place] [address] [place] Epithelial cells LM.HPF (Urine sed) [#/Area] None Seen Normal [facility] Comment on above: Order Comment: Speci men Type: URINE SPECIMEN Ordering Facility: [facility] Address: [address] [place] [address] Performed By: #### 2 4356-8 #### [facility] CLIA [id number] [address] [place] [address] [place] Glucose Test strip (U) [Mass/Vol] Negative Normal Negative [facility] Comment on above: Order Comment: Speci men Type: URINE SPECIMEN Ordering Facility: [facility] Address: [address] [place] [address] Performed By: #### 2 4356-8 #### [facility] CLIA [id number] [address] [place] [address] [place] Hemoglobin Ql (U) Negative Normal Negative [facility] Comment on above: Order Comment: Speci men Type: URINE SPECIMEN Ordering Facility: [facility] Address: [address] [place] [address] Performed By: #### 2 4356-8 #### [facility] CLIA [id number] [address] [place] [address] [place] Hyaline casts (Urine sed) [#/Area] 0 /[LPF] Normal 0 /LPF [facility] Comment on above: Order Comment: Speci men Type: URINE SPECIMEN Ordering Facility: [facility] Address: [address] [place] [address] Performed By: #### 2 4356-8 #### [facility] CLIA [id number] [address] [place] [address] [place] Ketones Ql (U) Negative Normal Negative [facility] Comment on above: Order Comment: Speci men Type: URINE SPECIMEN Ordering Facility: [facility] Address: [address] [place] [address] Performed By: #### 2 4356-8 #### [facility] CLIA [id number] [address] [place] [address] [place] Leukocyte esterase Test strip Ql (U) Negative Normal Negative [facility] Comment on above: Order Comment: Speci men Type: URINE SPECIMEN Ordering Facility: [facility] Address: [address] [place] [address] Performed By: #### 2 4356-8 #### [facility] CLIA [id number] [address] [place] [address] [place] Nitrite Ql (U) Negative Normal Negative [facility] Comment on above: Order Comment: Speci men Type: URINE SPECIMEN Ordering Facility: [facility] Address: [address] [place] [address] Performed By: #### 2 4356-8 #### [facility] CLIA [id number] [address] [place] [address] [place] pH (U) 5.5 [pH] Normal <8.5 [facility] Comment on above: Order Comment: Speci men Type: URINE SPECIMEN Ordering Facility: [facility] Address: [address] [place] [address] Performed By: #### 2 4356-8 #### [facility] CLIA [id number] [address] [place], [place] [address] [place] Protein (U) [Mass/Vol] Negative Normal Negative [facility] Comment on above: Order Comment: Speci men Type: URINE SPECIMEN Ordering Facility: [facility] Address: [address] [place] [address] Performed By: #### 2 4356-8 #### [facility] CLIA [id number] [address] [place] [address] [place] RBC LM.HPF (Urine sed) [#/Area] 3-5 /HPF Abnormal 0-2 /HPF [facility] Comment on above: Order Comment: Speci men Type: URINE SPECIMEN Ordering Facility: [facility] Address: [address] [place] [address] Performed By: #### 2 4356-8 #### [facility] CLIA [id number] [address] [place] [address] [place] Specific gravity (U) [Rel density] 1.023 Normal 1.005-1.03 0 [facility] Comment on above: Order Comment: Speci men Type: URINE SPECIMEN Ordering Facility: [facility] Address: [address] [place] [address] Performed By: #### 2 4356-8 #### [facility] CLIA [id number] [address] [place] [address] [place] [facility] [place] Urobilinogen Ql (U) 0.2 EU/dL Normal 0.2-1.0 EU/dL [facility] Comment on above: Order Comment: Speci men Type: URINE SPECIMEN Ordering Facility: [facility] Address: [address] [place] [address] Performed By: #### 2 4356-8 #### [facility] CLIA [id number] [address] [place] [address] [place] WBC LM.HPF (Urine sed) [#/Area] 0-5 /HPF Normal 0-5 /HPF [facility] Comment on above: Order Comment: Speci men Type: URINE SPECIMEN Ordering Facility: [facility] Address: [address] [place] [address] Performed By: #### 2 4356-8 #### [facility] CLIA [id number] [address] [place] [address] [place] Kylah 09-29-2024 DIOMEDES Telephone (AGFAMPSS) KATHRYN TAMEZ I ([id number]) 1940 F Date Time Provider Department 09/29/24 LEONARDO LYLES During your visit today, we recorded the following information about you: Iva Bullock 09/29/2024 10:16 AM Signed The pt called in to let pcp know that she has finished her antibiotic and would like to know if she is cleared for her back surgery. The pt was previously seen by for her preop apt. She also was seen by Cj for abnormal urinalysis and was told to finish medication then let office know for next steps. She would like a call back on if she needs scheduled again or to retake urian test. Please advise thank you Iva Bullock September 29, 2024 10:13 AM Kevin Wood MD 09/29/2024 3:15 PM Signed I have placed an order for urine culture that needs to be repeated again to make sure she is cleared. Has she established with urology? Kevin Wood MD 09/29/2024 3:15 PM Signed Addended by: KEVIN WOOD on: 09/29/2024 03:15 PM Modules accepted: Orders Maren Lobato MA 09/29/2024 3:28 PM Signed Patient notified Patient states she has to call urology back for an appointment EZEKIEL Urias Ravi Shashank, MD 09/30/2024 8:21 AM Signed Addended by: KEVIN WOOD on: 09/30/2024 08:21 AM Modules accepted: Orders Allergies As of Date: 09/29/2024 (No Known Allergies) Date Reviewed: 09/15/2024 Reviewed by: Cj Dale PA-C - Fully Assessed Primary Visit Diagnosis:Recurrent UTI (urinary tract infection) [N39.0] Order(s):URINALYSIS (WITH MICROSCOPIC) WITH CULTURE IF INDICATED [SQUACII] Order #: [id number] FUTURE Prescriptions as of 09/30/2024 - sertraline (ZOLOFT) 100 mg tablet Take 2 tablets by mouth once daily. - levothyroxine (SYNTHROID) 88 mcg tablet Take 1 tablet by mouth once daily. - SUMAtriptan (IMITREX) 50 mg tablet Take 1 tablet (50 mg) by mouth as needed (at onset of headache. May repeat after 2 hours.). - gabapentin (NEURONTIN) 300 mg capsule Take 300 mg by mouth two times a day. 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] 01/25/2016 Frequency of urination [R35.0] 01/25/2016 06/24/2018 Fecal incontinence [R15.9] 01/25/2016 06/24/2018 Mixed incontinence [N39.46] 01/25/2016 Urgency of urination [R39.15] 01/25/2016 Stress incontinence in female [N39.3] 01/25/2016 Urge incontinence of urine [N39.41] 01/25/2016 Chronic pain disorder [G89.4] 09/18/2017 Low back pain [M54.50] 09/18/2017 Lumbar radiculopathy [M54.16] 06/20/2018 Myalgia [M79.10] 09/18/2017 Other retirement (current) drug therapy [Z79.899]09/18/2017 Other chronic pain [G89.29] 07/22/2017 Personal history of nicotine dependence [Z87.89*09/18/2017 Postprocedural state [Z98.890] 06/20/2018 Radiculopathy, lumbar region [M54.16] 09/18/2017 Feeling of incomplete bladder emptying [R39.14] 11/13/2017 Other bursitis of hip, left hip [M70.72] 06/20/2018 Other bursitis of hip, right hip [M70.71] 06/20/2018 Other bursitis of hip, unspecified hip [M70.70] 05/23/2018 Pain in left hip [M25.552] 03/27/2018 Pain in right hip [M25.551] 03/27/2018 Postlaminectomy syndrome, not elsewhere classif*01/24/2018 Radiculopathy, lumbosacral region [M54.17] 05/23/2018 Gastro-esophageal reflux disease without esopha*10/22/2018 Major depressive disorder, single episode, unsp*10/22/2018 Thyrotoxicosis, unspecified without thyrotoxic *10/22/2018 Gastroenteritis and colitis, viral [A08.4] 08/06/2018 Infection due to Norovirus species [A08.11] 08/06/2018 Vitamin D deficiency [E55.9] 08/06/2018 Severe malnutrition (HCC) [E43] 08/06/2018 Osteopenia of multiple sites [M85.89] 12/30/2018 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] 12/30/2018 Adjustment disorder with mixed anxiety and depr*02/02/2020 Abscess of right middle finger [L02.511] 07/13/2022 Preop examination [Z01.818] 07/26/2023 Trigger ring finger of right hand [M65.341] 07/26/2023 Trigger little finger of right hand [M65.351] 07/26/2023 Hypothyroidism [E03.9] 07/26/2023 Encounter Status:Closed by IVA BULLOCK on 09/29/24 [facility] Bacteria Ur Culton 5 Bacteria identified Cx Nom (U) ORGANISM ID: 1 >=100,000 CFU/ml Mucoid pseudomonas aeruginosa ORGANISM ID: 1 (MUCOID PSEUDOMONAS AERUGINOSA) --------- ANTIBIOTIC INTERPRETATION FARRAH STATUS REFERENCE RANGE --------- Cefepime S <=2 F Susceptible <=8 , Intermediate >8 , Resistant >16 Meropenem S <=0.5 F Susceptible <=2 , Intermediate >2 , Resistant >4 Piperacillin/Tazobac S <=8 F Susceptible <=16 , Intermediate >16 , Resistant >=64 Gentamicin R F Tobramycin NI <=2 F This isolate is intermediate or susceptible to tobramycin. If discrimination between intermediate and susceptible is needed, please call the lab to request additional testing. Amikacin S <=8 F Susceptible <=16 , Intermediate >16 , Resistant >32 Ciprofloxacin S <=0.06 F Susceptible <=0.5 , Intermediate >.5 , Resistant >1 Abnormal [facility] Comment on above: Performed By: #### 2 4356-8, 630-4 #### [facility] CLIA [id number] [address] [place] [address] [place] Urinalysis complete panel (U )on 09-17-2024 BACTERIA UL 4166.1 uL High Negative [facility] Comment on above: Order Comment: Speci men Type: URINE SPECIMEN Ordering Facility: [facility] Address: [address] [place] [address] Performed By: #### 2 4356-8, 630-4 #### [facility] CLIA [id number] [address] [place] [address] [place] Bilirubin Ql (U) Negative Normal Negative [facility] Comment on above: Order Comment: Speci men Type: URINE SPECIMEN Ordering Facility: [facility] Address: [address] [place] [address] Performed By: #### 2 4356-8, 630-4 #### [facility] CLIA [id number] [address] [place] [address] [place] Clarity (Unsp spec) Clear Normal Clear [facility] Comment on above: Order Comment: Speci men Type: URINE SPECIMEN Ordering Facility: [facility] Address: [address] [place] [address] Performed By: #### 2 4356-8, 630-4 #### [facility] CLIA [id number] [address] [place] [address] [place] Color (U) Yellow Normal Yellow [facility] Comment on above: Order Comment: Speci men Type: URINE SPECIMEN Ordering Facility: [facility] Address: [address] [place] [address] Performed By: #### 2 4356-8, 630-4 #### [facility] CLIA [id number] [address] [place] [address] [place] Epithelial cells LM.HPF (Urine sed) [#/Area] None Seen Normal [facility] Comment on above: Order Comment: Speci men Type: URINE SPECIMEN Ordering Facility: [facility] Address: [address] [place] [address] Performed By: #### 2 4356-8, 630-4 #### [facility] CLIA [id number] [address] [place], [place] [address] [place] Glucose Test strip (U) [Mass/Vol] Negative Normal Negative [facility] Comment on above: Order Comment: Speci men Type: URINE SPECIMEN Ordering Facility: [facility] Address: [address] [place] [address] Performed By: #### 2 4356-8, 630-4 #### [facility] CLIA [id number] [address] [place], [place] [address] [place] Hemoglobin Ql (U) 1+ Abnormal Negative [facility] Comment on above: Order Comment: Speci men Type: URINE SPECIMEN Ordering Facility: [facility] Address: [address] [place] [address] Performed By: #### 2 4356-8, 630-4 #### [facility] CLIA [id number] [address] [place] [address] [place] Hyaline casts (Urine sed) [#/Area] 1-3 /LPF Abnormal 0 /LPF [facility] Comment on above: Order Comment: Speci men Type: URINE SPECIMEN Ordering Facility: [facility] Address: [address] [place] [address] Performed By: #### 2 4356-8, 630-4 #### [facility] CLIA [id number] [address] [place] [address] [place] Ketones Ql (U) Negative Normal Negative [facility] Comment on above: Order Comment: Speci men Type: URINE SPECIMEN Ordering Facility: [facility] Address: [address] [place] [address] Performed By: #### 2 4356-8, 630-4 #### [facility] CLIA [id number] [address] [place] [address] [place] Leukocyte esterase Test strip Ql (U) Negative Normal Negative [facility] Comment on above: Order Comment: Speci men Type: URINE SPECIMEN Ordering Facility: [facility] Address: [address] [place] [address] Performed By: #### 2 4356-8, 630-4 #### [facility] CLIA [id number] [address] [place] [address] [place] Nitrite Ql (U) Positive Abnormal Negative [facility] Comment on above: Order Comment: Speci men Type: URINE SPECIMEN Ordering Facility: [facility] Address: [address] [place] [address] Performed By: #### 2 4356-8, 630-4 #### [facility] CLIA [id number] [address] [place] [address] [place] pH (U) 6.0 [pH] Normal <8.5 [facility] Comment on above: Order Comment: Speci men Type: URINE SPECIMEN Ordering Facility: [facility] Address: [address] [place] [address] Performed By: #### 2 4356-8, 630-4 #### [facility] CLIA [id number] [address] [place] [address] [place] Protein (U) [Mass/Vol] Negative Normal Negative [facility] Comment on above: Order Comment: Speci men Type: URINE SPECIMEN Ordering Facility: [facility] Address: [address] [place] [address] Performed By: #### 2 4356-8, 630-4 #### [facility] CLIA [id number] [address] [place] [address] [place] RBC LM.HPF (Urine sed) [#/Area] 0-2 /HPF Normal 0-2 /HPF [facility] Comment on above: Order Comment: Speci men Type: URINE SPECIMEN Ordering Facility: [facility] Address: [address] [place] [address] Performed By: #### 2 4356-8, 630-4 #### [facility] CLIA [id number] [address] [place] [address] [place] Specific gravity (U) [Rel density] 1.016 Normal 1.005-1.03 0 [facility] Comment on above: Order Comment: Speci men Type: URINE SPECIMEN Ordering Facility: [facility] Address: [address] [place] [address] Performed By: #### 2 4356-8, 630-4 #### [facility] CLIA [id number] [address] [place] [address] [place] Urobilinogen Ql (U) 0.2 EU/dL Normal 0.2-1.0 EU/dL [facility] Comment on above: Order Comment: Speci men Type: URINE SPECIMEN Ordering Facility: [facility] Address: [address] [place] [address] Performed By: #### 2 4356-8, 630-4 #### [facility] CLIA [id number] [address] [place] [address] [place] WBC LM.HPF (Urine sed) [#/Area] 0-5 /HPF Normal 0-5 /HPF [facility] Comment on above: Order Comment: Speci men Type: URINE SPECIMEN Ordering Facility: [facility] Address: [address] [place] [address] Performed By: #### 2 4356-8, 630-4 #### [facility] CLIA [id number] [address] [place] [address] OF [place]ESS[place] CNPNon 09-16-2024 CNPN Telephone (AGFAMPSS) KATHRYN TAMEZ I ([id number]) 1940 F Date Time Provider Department 09/16/24 LEONARDO LYLES During your visit today, we recorded the following information about you: Dena Guy 09/16/2024 9:39 AM Signed Samantha from 's office M wanting to know if we were getting the results from the UA's that they are doing. I returned Samantha's call and advised her of the appointment notes from the Pt's appointment with Cj yesterday 09/15/24. Samantha appreciated the update. Dena Guy September 16, 2024 9:38 AM Allergies As of Date: 09/16/2024 (No Known Allergies) Date Reviewed: 09/15/2024 Reviewed by: Cj Dale PA-C - Fully Assessed Prescriptions as of 09/16/2024 - sertraline (ZOLOFT) 100 mg tablet Take 2 tablets by mouth once daily. - levothyroxine (SYNTHROID) 88 mcg tablet Take 1 tablet by mouth once daily. - SUMAtriptan (IMITREX) 50 mg tablet Take 1 tablet (50 mg) by mouth as needed (at onset of headache. May repeat after 2 hours.). - gabapentin (NEURONTIN) 300 mg capsule Take 300 mg by mouth two times a day. 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] 01/25/2016 Frequency of urination [R35.0] 01/25/2016 06/24/2018 Fecal incontinence [R15.9] 01/25/2016 06/24/2018 Mixed incontinence [N39.46] 01/25/2016 Urgency of urination [R39.15] 01/25/2016 Stress incontinence in female [N39.3] 01/25/2016 Urge incontinence of urine [N39.41] 01/25/2016 Chronic pain disorder [G89.4] 09/18/2017 Low back pain [M54.50] 09/18/2017 Lumbar radiculopathy [M54.16] 06/20/2018 Myalgia [M79.10] 09/18/2017 Other retirement (current) drug therapy [Z79.899]09/18/2017 Other chronic pain [G89.29] 07/22/2017 Personal history of nicotine dependence [Z87.89*09/18/2017 Postprocedural state [Z98.890] 06/20/2018 Radiculopathy, lumbar region [M54.16] 09/18/2017 Feeling of incomplete bladder emptying [R39.14] 11/13/2017 Other bursitis of hip, left hip [M70.72] 06/20/2018 Other bursitis of hip, right hip [M70.71] 06/20/2018 Other bursitis of hip, unspecified hip [M70.70] 05/23/2018 Pain in left hip [M25.552] 03/27/2018 Pain in right hip [M25.551] 03/27/2018 Postlaminectomy syndrome, not elsewhere classif*01/24/2018 Radiculopathy, lumbosacral region [M54.17] 05/23/2018 Gastro-esophageal reflux disease without esopha*10/22/2018 Major depressive disorder, single episode, unsp*10/22/2018 Thyrotoxicosis, unspecified without thyrotoxic *10/22/2018 Gastroenteritis and colitis, viral [A08.4] 08/06/2018 Infection due to Norovirus species [A08.11] 08/06/2018 Vitamin D deficiency [E55.9] 08/06/2018 Severe malnutrition (HCC) [E43] 08/06/2018 Osteopenia of multiple sites [M85.89] 12/30/2018 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 Recollect if clinically indicated. Abnormal [facility] Comment on above: Performed By: #### 6 30-4 ####[facility] [id number] [address] OF [facility] CNOVon 09-15-2024 [facility] KATHRYN TAMEZ I ([id number]) 1940 F Date Time Provider Department 09/15/24 2:40 PM CJ DALE During your visit today, we recorded the following information about you: Temperature Pulse Blood pressure Weight 98 degrees 63/minute 132/74 55.6 kg Cj Dale PA-C 09/15/2024 3:39 PM Signed [facility] [place] [address] Date of Evaluation: 09/15/2024 Patient Name: Kathryn Tamez : 1940 Chief Complaint: Patient presents with: UTI Subjective Ms. Tamez is a 84 year old female who presents with the following complaint(s): abnormal UA/concerns for UTI HPI Patient of Leonardo Lyles APRN.CNP, who is new to [place] Patient was scheduled to have surgery with Dr. Clai Morrison at [facility] tomorrow, 09/16/24 ( Posterior Fusion L2-3-4-5, Revision Decompression L2-3-4-5, Pedicle Instrumentation, Local Bone Allograft ) but surgery was canceled due to a positive urine culture on Sunday for pseudomonas (preliminary result). Patient denies any symptoms of a UTI. She was treated for a + UA on 08/19 with Macrobid for 5 days and then recently treated with Cipro for 7 days on 09/05-09/12 based on urine culture results from Dr. Morrison's office. Patient reports that surgery has not been rescheduled yet. Review of Systems Constitutional: Negative for appetite change, chills, fatigue and fever. Respiratory: Negative for cough, shortness of breath and wheezing. Cardiovascular: Negative for chest pain and palpitations. Gastrointestinal: Negative for abdominal pain, nausea and vomiting. Genitourinary: Negative for difficulty urinating, dysuria, flank pain, frequency, hematuria and urgency. Musculoskeletal: Positive for back pain (chronic). PAST MEDICAL HISTORY Diagnosis Date Acquired hypothyroidism Acute gastritis Adjustment disorder with depressed mood Allergic rhinitis Alopecia Arthritis left knee replaced 3 times Atrophic vaginitis Basal cell carcinoma of nasolabial groove Chronic pain Chronic pelvic pain in female Constipation COPD (chronic obstructive pulmonary disease) (HCC) Depression Dysuria Epigastric pain Essential hypertension External ear conductive hearing loss Female stress incontinence Fibromyalgia Functional diarrhea Functional disorder of bladder Generalized abdominal pain H/O goiter s/p thyroidectomy Headache Hip pain History of fall History of kidney problems renal cell carcinoma Hyperkalemia Hyperlipidemia Impacted cerumen Incomplete emptying of bladder Incontinence of feces Increased frequency of urination Jaw pain Joint pain Leukocytosis Lumbar back pain Medication monitoring encounter Migraine with aura Mitral valve prolapse Muscle pain Muscle spasms of neck and/or neck Muscle weakness Must strain to pass urine Nausea and vomiting Neck pain Neoplasm of brain (HCC) Nocturia Obesity Osteoporosis Pain in lower limb Pain in wrist Painful urging to urinate Periumbilical pain Primary fibromyalgia syndrome Dr. Clay Primary malignant neoplasm of kidney (HCC) Refractory migraine with aura Restless legs Sleep deprivation Spasm of back muscles Temporomandibular joint disorder Tobacco dependence syndrome Tobacco use quit smoking in 04-25 Urinary incontinence, mixed Urinary tract infectious disease Viral gastroenteritis PAST SURGICAL HISTORY Procedure Laterality Date ANKLE SURGERY HX Right 2013 ankle ARTHRP KNE CONDYLEANDPLATU MEDIALANDLAT COMPARTMENTS Left X3 CHOLECYSTECTOMY COLONOSCOPY 08/05/2018 Dr. Guan (repeat in 10 years) HAND SURGERY HX Right 04/2022 KIDNEY SURGERY HX Left 2003 Removed- renal cell CA LEG SURGERY HX x6 PAST SURGICAL HISTORY OF 06/26/2015 Temporary Implant placed right hip for bladder control PAST SURGICAL HISTORY OF 07/02/2015 Permanent implant placed right hip for bladder control PAST SURGICAL HISTORY OF Left Hip fracture PAST SURGICAL HISTORY OF Left Broken Femur PAST SURGICAL HISTORY OF Right 07/26/2023 rt ring finger release THYROID SURGERY HX 2004 partial TOTAL ABDOMINAL HYSTERECT W/WO RMVL TUBE OVARY BSO FAMILY HISTORY Problem Relation Age of Onset Cancer Father Hypertension Sister Stroke Sister Coronary Artery Disease Sister Diabetes Sister Leukemia Sister Colon Cancer No Family History Social History Tobacco Use Smoking status: Former Current packs/day: 0.00 Types: Cigarettes Start date: 08/18/1958 Quit date: 08/18/2018 Years since quittin.0 Smokeless tobacco: Never Tobacco comments: One pack of cigarettes every 3 weeks Vaping Use Vaping status: Never Used Substance Use Topics Alcohol (more content not included)... Normal [facility] UA DIP, URINE (POC)on 2024 BILIRUBIN UA (POCT) Negative Negative [facility] CLARITY UA (POCT) Clear [facility] COLOR UA (POCT) Yellow [facility] GLUCOSE UA (POCT) Negative Negative mg/dL [facility] Hemoglobin Ql (U) Small Abnormal Negative [facility] Interpretation and review of laboratory results Abnormal [facility] KETONE UA (POCT) Negative Negative mg/dL [facility] LEUKOCYTES UA (POCT) Trace Abnormal Negative [facility] NITRITE UA (POCT) Negative Negative [facility] PH UA (POCT) 7 4.5 - 8.0 [facility] Protein Ql (U) Trace Abnormal Negative mg/dL [facility] SPECIFIC GRAVITY UA (POCT) 1.01 1.005 - 1.030 [facility] UROBILINOGEN UA (POCT) 0.2 Normal E.U./dL [facility] Location:[facility], [address] [place] [address], [address] [place] [address] POINT OF CARE [facility] Kylah 09-11-2024 MIKAELN Telephone (OREN) KATHRYN TAMEZ I ([id number]) 1940 F Date Time Provider Department 09/11/24 LEONARDO LYLES During your visit today, we recorded the following information about you: Queenie Kirkpatrick 09/11/2024 9:28 AM Signed Pt called into the office stating she is having surgery on (09-16-24). Pt states her lab showed signs of UTI and Dr Morrison would like another urine analysis done before her surgery, Pt states she is not experiencing any symptoms. Informed pt that we would inform PCP. To see if he wanted to order an analysis. Pt states she is going to call and call us back to see who should order the analysis for her. Pt is concerned that the results will not be back in time for her surgery. Please advise Queenie Kirkpatrick September 11, 2024 9:27 AM Leonardo Lyles APRN.CNP 09/11/2024 11:04 AM Signed Urinalysis ordered. The results should come back in the next few days if she gets it done today. SARAH Melendez Adam P, APRN.CNP 09/11/2024 11:04 AM Signed Addended by: LEONARDO LYLES on: 09/11/2024 11:04 AM Modules accepted: Orders Maren Lobato MA 09/11/2024 11:08 AM Signed Lv for return call EZEKIEL Urias Nora, MA 09/12/2024 8:29 AM Signed Patient notified Maren Lobato MA Allergies As of Date: 09/11/2024 (No Known Allergies) Date Reviewed: 09/03/2024 Reviewed by: Maren Lobato MA - Fully Assessed Reason for Visit: Orders [681] Cmt: Urine Analosis Primary Visit Diagnosis:Recurrent UTI (urinary tract infection) [N39.0] Order(s):URINALYSIS (WITH MICROSCOPIC) WITH CULTURE IF INDICATED [SQUACII] Order #: [id number] FUTURE Prescriptions as of 09/12/2024 - ciprofloxacin HCl (CIPRO) 250 mg tablet Take 1 tablet by mouth two times a day for 7 days. - sertraline (ZOLOFT) 100 mg tablet Take 2 tablets by mouth once daily. - levothyroxine (SYNTHROID) 88 mcg tablet Take 1 tablet by mouth once daily. - SUMAtriptan (IMITREX) 50 mg tablet Take 1 tablet (50 mg) by mouth as needed (at onset of headache. May repeat after 2 hours.). - gabapentin (NEURONTIN) 300 mg capsule Take 300 mg by mouth two times a day. Pain MGMT Problem List As Of Date 09/11/2024 Noted Resolved Spinal stenosis, lumbar region, without neuroge*09/10/2015 Anxiety associated with depression [F41.8] 09/10/2015 MVP (mitral valve prolapse) [I34.1] 09/10/2015 07/18/2018 Postsurgical hypothyroidism [E89.0] 09/10/2015 Migraines [G43.909] 09/10/2015 Urinary frequency [R35.0] 09/10/2015 06/24/2018 Spinal stenosis of lumbar region with neurogeni*09/24/2015 Atrophy of vagina [N95.2] 01/25/2016 Frequency of urination [R35.0] 01/25/2016 06/24/2018 Fecal incontinence [R15.9] 01/25/2016 06/24/2018 Mixed incontinence [N39.46] 01/25/2016 Urgency of urination [R39.15] 01/25/2016 Stress incontinence in female [N39.3] 01/25/2016 Urge incontinence of urine [N39.41] 01/25/2016 Chronic pain disorder [G89.4] 09/18/2017 Low back pain [M54.50] 09/18/2017 Lumbar radiculopathy [M54.16] 06/20/2018 Myalgia [M79.10] 09/18/2017 Other retirement (current) drug therapy [Z79.899]09/18/2017 Other chronic pain [G89.29] 07/22/2017 Personal history of nicotine dependence [Z87.89*09/18/2017 Postprocedural state [Z98.890] 06/20/2018 Radiculopathy, lumbar region [M54.16] 09/18/2017 Feeling of incomplete bladder emptying [R39.14] 11/13/2017 Other bursitis of hip, left hip [M70.72] 06/20/2018 Other bursitis of hip, right hip [M70.71] 06/20/2018 Other bursitis of hip, unspecified hip [M70.70] 05/23/2018 Pain in left hip [M25.552] 03/27/2018 Pain in right hip [M25.551] 03/27/2018 Postlaminectomy syndrome, not elsewhere classif*01/24/2018 Radiculopathy, lumbosacral region [M54.17] 05/23/2018 Gastro-esophageal reflux disease without esopha*10/22/2018 Major depressive disorder, single episode, unsp*10/22/2018 Thyrotoxicosis, unspecified without thyrotoxic *10/22/2018 Gastroenteritis and colitis, viral [A08.4] 08/06/2018 Infection due to Norovirus species [A08.11] 08/06/2018 Vitamin D deficiency [E55.9] 08/06/2018 Severe malnutrition (HCC) [E43] 08/06/2018 Osteopenia of multiple sites [M85.89] 12/30/2018 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] 12/30/2018 Adjustment disorder with mixed anxiety and depr*02/02/2020 Abscess of right middle finger [L02.511] 07/13/2022 Preop examination [Z01.818] 07/26/2023 Trigger ring finger of right hand [M65.341] 07/26/2023 Trigger little finger of right hand [M65.351] 07/26/2023 Hypothyroidism [E03.9] 07/26/2023 Encounter Status:Closed by QUEENIE KIRKPATRICK [facility]11/[facility] [facility] Telephone (AGFAMPSS) KATHRYN TAMEZ I ([id number]) 1940 F Date Time Provider Department 09/05/24 [facility] During your visit today, we recorded the following information about you: Misty Green 09/05/2024 1:00 PM Signed Fax received from [facility], Dr. Morrison's office, regarding pt's UA culture results. Results given to covering provider, Dr. Zapien. Misty Doron September 05, 2024 12:59 PM Dena Guy 09/05/2024 1:22 PM Signed Samantha from 's office LVM asking if the pt will be put in antibiotics for the UTI and if she will have a follow up appointment to retest before her surgery on 09/16/24. Samantha can be reached at [phone]. Please advise. Dena Guy September 05, 2024 1:22 PM Yumiko Zapien, 09/05/2024 2:46 PM Signed Let patient know that she cannot take the antibiotic for urinary tract infection with her Atarax. Yumiko Zapien DO 09/05/2024 2:46 PM Signed Addended by: YUMIKO ZAPIEN on: 09/05/2024 02:46 PM Modules accepted: Iona Pederson MA 09/05/2024 2:55 PM Signed Patient informed Iona Navarrete MA Allergies As of Date: 09/05/2024 (No Known Allergies) Date Reviewed: 09/03/2024 Reviewed by: Maren Lobato MA - Fully Assessed Reason for Visit: Patient Update [1234] Cmt: UTI Primary Visit Diagnosis:Recurrent UTI (urinary tract infection) [N39.0] Order(s):ciprofloxacin HCl (CIPRO) 250 mg tabletTake 1 tablet by mouth two times a day for 7 days.Disp: 14 tabletRfl: 0 Prescriptions as of 09/05/2024 - ciprofloxacin HCl (CIPRO) 250 mg tablet Take 1 tablet by mouth two times a day for 7 days. - sertraline (ZOLOFT) 100 mg tablet Take 2 tablets by mouth once daily. - levothyroxine (SYNTHROID) 88 mcg tablet Take 1 tablet by mouth once daily. - SUMAtriptan (IMITREX) 50 mg tablet Take 1 tablet (50 mg) by mouth as needed (at onset of headache. May repeat after 2 hours.). - gabapentin (NEURONTIN) 300 mg capsule Take 300 mg by mouth two times a day. Pain MGMT Problem List As Of Date 09/05/2024 Noted Resolved Spinal stenosis, lumbar region, without neuroge*09/10/2015 Anxiety associated with depression [F41.8] 09/10/2015 MVP (mitral valve prolapse) [I34.1] 09/10/2015 07/18/2018 Postsurgical hypothyroidism [E89.0] 09/10/2015 Migraines [G43.909] 09/10/2015 Urinary frequency [R35.0] 09/10/2015 06/24/2018 Spinal stenosis of lumbar region with neurogeni*09/24/2015 Atrophy of vagina [N95.2] 01/25/2016 Frequency of urination [R35.0] 01/25/2016 06/24/2018 Fecal incontinence [R15.9] 01/25/2016 06/24/2018 Mixed incontinence [N39.46] 01/25/2016 Urgency of urination [R39.15] 01/25/2016 Stress incontinence in female [N39.3] 01/25/2016 Urge incontinence of urine [N39.41] 01/25/2016 Chronic pain disorder [G89.4] 09/18/2017 Low back pain [M54.50] 09/18/2017 Lumbar radiculopathy [M54.16] 06/20/2018 Myalgia [M79.10] 09/18/2017 Other retirement (current) drug therapy [Z79.899]09/18/2017 Other chronic pain [G89.29] 07/22/2017 Personal history of nicotine dependence [Z87.89*09/18/2017 Postprocedural state [Z98.890] 06/20/2018 Radiculopathy, lumbar region [M54.16] 09/18/2017 Feeling of incomplete bladder emptying [R39.14] 11/13/2017 Other bursitis of hip, left hip [M70.72] 06/20/2018 Other bursitis of hip, right hip [M70.71] 06/20/2018 Other bursitis of hip, unspecified hip [M70.70] 05/23/2018 Pain in left hip [M25.552] 03/27/2018 Pain in right hip [M25.551] 03/27/2018 Postlaminectomy syndrome, not elsewhere classif*01/24/2018 Radiculopathy, lumbosacral region [M54.17] 05/23/2018 Gastro-esophageal reflux disease without esopha*10/22/2018 Major depressive disorder, single episode, unsp*10/22/2018 Thyrotoxicosis, unspecified without thyrotoxic *10/22/2018 Gastroenteritis and colitis, viral [A08.4] 08/06/2018 Infection due to Norovirus species [A08.11] 08/06/2018 Vitamin D deficiency [E55.9] 08/06/2018 Severe malnutrition (HCC) [E43] 08/06/2018 Osteopenia of multiple sites [M85.89] 12/30/2018 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] 12/30/2018 Adjustment disorder with mixed anxiety and depr*02/02/2020 Abscess of right middle finger [L02.511] 07/13/2022 Preop examination [Z01.818] 07/26/2023 Trigger ring finger of right hand [M65.341] 07/26/2023 Trigger little finger of right hand [M65.351] 07/26/2023 Hypothyroidism [E03.9] 07/26/2023 Prescriptions ordered this encounter Disp Refills Start End CIPROFLOXACIN 250 MG TABLET 14 t* 0 09/05/2024 09/12/2024 Route: ORAL Sig: Take 1 tablet by mouth two times a day for 7 days. Medications Discontinued During This Encounter Prescriptions - hydrOXYzine HCl (ATARAX) 10 mg tablet (Discontinued) Take 1 tablet by mouth daily at bedtime. Encounter Status:Closed by MISTY GREEN [facility]05/[facility] ([facility]) KATHRYN TAMEZ I ([id number]) 1940 F Date Time Provider Department 09/03/24 1:20 PM [facility] During your visit today, we recorded the following information about you: Temperature Pulse Blood pressure Weight 97.9 degrees 60/minute 132/67 55.3 kg Kevin Wodo MD 09/03/2024 2:18 PM Signed CC: Preoperative Risk Assessment and Evaluation S: 84 year old female with history of migraines, hypothyroidism, MDD, ARABELLA, COPD presents for Preoperative Risk Assessment and Evaluation. Surgery - Posterior Fusion L2-3-4-5, Revision Decompression L2-3-4-5, Pedicle Instrumentation, Local Bone Allograft Date - 09/16/2024 Surgeon - Dr. Cali Morrison No prior reactions to anesthesia. Revised Cardiac Risk Index: (>1 = high risk) - High risk surgery (intraperitoneal, intrathoracic or supra-inguinal vascular procedures): No - History of ischemic heart disease: No - History of CHF: No - History of CVA or TIA: No - Preop treatment with Insulin: No - Preop serum Cr > 2.0: No (may also use cardiac complication risk at [facility] NSQIP [email or web address]): (> 1% = high risk) 0-3 = low risk 4+ = high risk Functional Assessment: - Climb a flight of stairs or walk up a hill? 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 Yes (4.5) SOCIAL HISTORY: Tobacco: quit smoking 4 years ago. Alcohol: very rarely. CHIDI screen: - Snoring: Yes - Tiredness: No - Observed Apnea: No - Hypertension: No - BMI > 35: No - Age > 50: Yes - Neck circumference > 17 in: No - Male gender: No MEDICAL HISTORY PAST MEDICAL HISTORY Diagnosis Date Acquired hypothyroidism Acute gastritis Adjustment disorder with depressed mood Allergic rhinitis Alopecia Arthritis left knee replaced 3 times Atrophic vaginitis Basal cell carcinoma of nasolabial groove Chronic pain Chronic pelvic pain in female Constipation COPD (chronic obstructive pulmonary disease) (HCC) Depression Dysuria Epigastric pain Essential hypertension External ear conductive hearing loss Female stress incontinence Fibromyalgia Functional diarrhea Functional disorder of bladder Generalized abdominal pain H/O goiter s/p thyroidectomy Headache Hip pain History of fall History of kidney problems renal cell carcinoma Hyperkalemia Hyperlipidemia Impacted cerumen Incomplete emptying of bladder Incontinence of feces Increased frequency of urination Jaw pain Joint pain Leukocytosis Lumbar back pain Medication monitoring encounter Migraine with aura Mitral valve prolapse Muscle pain Muscle spasms of neck and/or neck Muscle weakness Must strain to pass urine Nausea and vomiting Neck pain Neoplasm of brain (HCC) Nocturia Obesity Osteoporosis Pain in lower limb Pain in wrist Painful urging to urinate Periumbilical pain Primary fibromyalgia syndrome Dr. Clay Primary malignant neoplasm of kidney (HCC) Refractory migraine with aura Restless legs Sleep deprivation Spasm of back muscles Temporomandibular joint disorder Tobacco dependence syndrome Tobacco use quit smoking in 04-25 Urinary incontinence, mixed Urinary tract infectious disease Viral gastroenteritis SURGICAL HISTORY PAST SURGICAL HISTORY Procedure Laterality Date ANKLE SURGERY HX Right 2012 ankle ARTHRP KNE CONDYLEANDPLATU MEDIALANDLAT COMPARTMENTS Left X3 CHOLECYSTECTOMY COLONOSCOPY 08/05/2018 Dr. Guan (repeat in 10 years) HAND SURGERY HX Right 04/2022 KIDNEY SURGERY HX Left 2003 Removed- renal cell CA LEG SURGERY HX x6 PAST SURGICAL HISTORY OF 06/26/2015 Temporary Implant placed right hip for bladder control PAST SURGICAL HISTORY OF 07/02/2015 Permanent implant placed right hip for bladder control PAST SURGICAL HISTORY OF Left Hip fracture PAST SURGICAL HISTORY OF Left Broken Femur PAST SURGICAL HISTORY OF Right 07/26/2023 rt ring finger release THYROID SURGERY HX 2003 partial TOTAL ABDOMINAL HYSTERECT W/WO RMVL TUBE OVARY BSO MEDICATIONS AND ALLERGIES REVIEWED. LATEX ALLERGY: No ROS: GENERAL: No weight loss, malaise or fevers HEENT: Negative for frequent or significant headaches, No changes in hearing or vision, no nose bleeds or other nasal problems RESPIRATORY: Negative for cough, hemoptysis, wheezing, COPD, dyspnea or shortness of breath CARDIOVASCULAR: Negative for chest pain, leg swelling, hypertension, CHF or palpitations : No history of dysuria, frequency or incontinence SKIN: Negative for lesions, rash, and itching NEURO: No history of headaches, syncope, paralysis, seizures or tremors O: PHYSICAL EXAM: There were no vitals taken for this visit. There is no height or weight on file to calculate BMI. -CMP, CBC, TSH, Lipid Panel, UA reviewed. UA appears contami (more content not included)... Normal [facility] DASHAWNKATHRYN I ([id number]) 1940 F Date Time Provider Department 09/03/24 KEVIN WOODSHUN LOTT During your visit today, we recorded the following information about you: Misty Green 09/03/2024 2:32 PM Signed Pt's clearance faxed: Fax Sent To: [facility], Attn: Dr. Morrison Document: Last OV and Pre-Operative Clearance Form F: [phone] On September 03, 2024 2:32 PM Misty Green September 03, 2024 2:32 PM Misty Green 10/01/2024 3:17 PM Signed Pt's lab result faxed: Fax Sent To: [facility] Document: *Face Sheet and *Lab Results (Recent) F: [phone] On October 01, 2024 3:13 PM Misty Green October 01, 2024 3:13 PM Allergies As of Date: 09/03/2024 (No Known Allergies) Date Reviewed: 09/03/2024 Reviewed by: Maren Lobato MA - Fully Assessed Reason for Visit: Clerical [Other] Cmt: Pre-Operative Clearance Prescriptions as of 10/01/2024 - sertraline (ZOLOFT) 100 mg tablet Take 2 tablets by mouth once daily. - levothyroxine (SYNTHROID) 88 mcg tablet Take 1 tablet by mouth once daily. - SUMAtriptan (IMITREX) 50 mg tablet Take 1 tablet (50 mg) by mouth as needed (at onset of headache. May repeat after 2 hours.). - gabapentin (NEURONTIN) 300 mg capsule Take 300 mg by mouth two times a day. Pain MGMT Problem List As Of Date 09/03/2024 Noted Resolved Spinal stenosis, lumbar region, without neuroge*09/10/2015 Anxiety associated with depression [F41.8] 09/10/2015 MVP (mitral valve prolapse) [I34.1] 09/10/2015 07/18/2018 Postsurgical hypothyroidism [E89.0] 09/10/2015 Migraines [G43.909] 09/10/2015 Urinary frequency [R35.0] 09/10/2015 06/24/2018 Spinal stenosis of lumbar region with neurogeni*09/24/2015 Atrophy of vagina [N95.2] 01/25/2016 Frequency of urination [R35.0] 01/25/2016 06/24/2018 Fecal incontinence [R15.9] 01/25/2016 06/24/2018 Mixed incontinence [N39.46] 01/25/2016 Urgency of urination [R39.15] 01/25/2016 Stress incontinence in female [N39.3] 01/25/2016 Urge incontinence of urine [N39.41] 01/25/2016 Chronic pain disorder [G89.4] 09/18/2017 Low back pain [M54.50] 09/18/2017 Lumbar radiculopathy [M54.16] 06/20/2018 Myalgia [M79.10] 09/18/2017 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 therapy [Z79.899]09/18/2017 Other chronic pain [G89.29] 07/22/2017 Personal history of nicotine dependence [Z87.89*09/18/2017 Postprocedural state [Z98.890] 06/20/2018 Radiculopathy, lumbar region [M54.16] 09/18/2017 Feeling of incomplete bladder emptying [R39.14] 11/13/2017 Other bursitis of hip, left hip [M70.72] 06/20/2018 Other bursitis of hip, right hip [M70.71] 06/20/2018 Other bursitis of hip, unspecified hip [M70.70] 05/23/2018 Pain in left hip [M25.552] 03/27/2018 Pain in right hip [M25.551] 03/27/2018 Postlaminectomy syndrome, not elsewhere classif*01/24/2018 Radiculopathy, lumbosacral region [M54.17] 05/23/2018 Gastro-esophageal reflux disease without esopha*10/22/2018 Major depressive disorder, single episode, unsp*10/22/2018 Thyrotoxicosis, unspecified without thyrotoxic *10/22/2018 Gastroenteritis and colitis, viral [A08.4] 08/06/2018 Infection due to Norovirus species [A08.11] 08/06/2018 Vitamin D deficiency [E55.9] 08/06/2018 Severe malnutrition (HCC) [E43] 08/06/2018 Osteopenia of multiple sites [M85.89] 12/30/2018 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] 12/30/2018 Adjustment disorder with mixed anxiety and depr*02/02/2020 Abscess of right middle finger [L02.511] 07/13/2022 Preop examination [Z01.818] 07/26/2023 Trigger ring finger of right hand [M65.341] 07/26/2023 Trigger little finger of right hand [M65.351] 07/26/2023 Hypothyroidism [E03.9] 07/26/2023 Encounter Status:Closed by MISTY GREEN on 09/03/24 [facility] CNPNon 08-27-2024 CNPN Telephone (AGFAMailboxSS) KATHRYN TAMEZ I ([id number]) 1940 F Date Time Provider Department [facility] During your visit today, we recorded the following information about you: Dena Guy 08/27/2024 9:52 AM Signed Pt's pre op form was faxed over and pt is scheduled for 09/03/24 with . Pt's pre op form scanned in and placed in surgical clearance fold on Dena's desk. Dena Guy August 27, 2024 9:52 AM Allergies As of Date: 08/27/2024 (No Known Allergies) Date Reviewed: 08/14/2024 Reviewed by: Leonardo Lyles, [employer] - Fully Assessed Reason for Visit: Patient Update [1234] Cmt: [facility] pre op form Prescriptions as of 08/27/2024 - hydrOXYzine HCl (ATARAX) 10 mg tablet Take 1 tablet by mouth daily at bedtime. - sertraline (ZOLOFT) 100 mg tablet Take 2 tablets by mouth once daily. - levothyroxine (SYNTHROID) 88 mcg tablet Take 1 tablet by mouth once daily. - SUMAtriptan (IMITREX) 50 mg tablet Take 1 tablet (50 mg) by mouth as needed (at onset of headache. May repeat after 2 hours.). - gabapentin (NEURONTIN) 300 mg capsule Take 300 mg by mouth two times a day. Pain MGMT Problem List As Of Date 08/27/2024 Noted Resolved Spinal stenosis, lumbar region, without neuroge*09/10/2015 Anxiety associated with depression [F41.8] 09/10/2015 MVP (mitral valve prolapse) [I34.1] 09/10/2015 07/18/2018 Postsurgical hypothyroidism [E89.0] 09/10/2015 Migraines [G43.909] 09/10/2015 Urinary frequency [R35.0] 09/10/2015 06/24/2018 Spinal stenosis of lumbar region with neurogeni*09/24/2015 Atrophy of vagina [N95.2] 01/25/2016 Frequency of urination [R35.0] 01/25/2016 06/24/2018 Fecal incontinence [R15.9] 01/25/2016 06/24/2018 Mixed incontinence [N39.46] 01/25/2016 Urgency of urination [R39.15] 01/25/2016 Stress incontinence in female [N39.3] 01/25/2016 Urge incontinence of urine [N39.41] 01/25/2016 Chronic pain disorder [G89.4] 09/18/2017 Low back pain [M54.50] 09/18/2017 Lumbar radiculopathy [M54.16] 06/20/2018 Myalgia [M79.10] 09/18/2017 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 therapy [Z79.899]09/18/2017 Other chronic pain [G89.29] 07/22/2017 Personal history of nicotine dependence [Z87.89*09/18/2017 Postprocedural state [Z98.890] 06/20/2018 Radiculopathy, lumbar region [M54.16] 09/18/2017 Feeling of incomplete bladder emptying [R39.14] 11/13/2017 Other bursitis of hip, left hip [M70.72] 06/20/2018 Other bursitis of hip, right hip [M70.71] 06/20/2018 Other bursitis of hip, unspecified hip [M70.70] 05/23/2018 Pain in left hip [M25.552] 03/27/2018 Pain in right hip [M25.551] 03/27/2018 Postlaminectomy syndrome, not elsewhere classif*01/24/2018 Radiculopathy, lumbosacral region [M54.17] 05/23/2018 Gastro-esophageal reflux disease without esopha*10/22/2018 Major depressive disorder, single episode, unsp*10/22/2018 Thyrotoxicosis, unspecified without thyrotoxic *10/22/2018 Gastroenteritis and colitis, viral [A08.4] 08/06/2018 Infection due to Norovirus species [A08.11] 08/06/2018 Vitamin D deficiency [E55.9] 08/06/2018 Severe malnutrition (HCC) [E43] 08/06/2018 Osteopenia of multiple sites [M85.89] 12/30/2018 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] 12/30/2018 Adjustment disorder with mixed anxiety and depr*02/02/2020 Abscess of right middle finger [L02.511] 07/13/2022 Preop examination [Z01.818] 07/26/2023 Trigger ring finger of right hand [M65.341] 07/26/2023 Trigger little finger of right hand [M65.351] 07/26/2023 Hypothyroidism [E03.9] 07/26/2023 Encounter Status:Closed by DENA GUY on 08/27/24 Normal [facility] CBC panel Auto (Bld)on 08-18 Erythrocyte distribution width (RBC) [Ratio] 14.5 % Normal 11.5-15.0 [facility] Comment on above: Order Comment: Speci men Type: BLOOD SPECIMENOrdering Facility: [facility] Address: [address] [place] [address] [place] [address] Performed By: #### 5 8410-2 ####[facility] LABORATORYCLIA [id number] [address] OF [facility] Hematocrit (Bld) [Volume fraction] 41.8 % Normal 36.0-46.0 [facility] Comment on above: Order Comment: Speci men Type: BLOOD SPECIMENOrdering Facility: [facility] Address: [address] [place] [address] Performed By: #### 5 8410-2 ####[facility] LABORATORYCLIA [id number] [address] OF [facility] Hemoglobin (Bld) [Mass/Vol] 13.5 g/dL Normal 11.5-15.5 [facility] Comment on above: Order Comment: Speci men Type: BLOOD SPECIMENOrdering Facility: [facility] Address: [address] [place] [address] Performed By: #### 5 8410-2 ####[facility] LABORATORYCLIA [id number] [address] STATES [facility] MCH (RBC) [Entitic mass] 29.1 pg Normal 26.0-34.0 [facility] Comment on above: Order Comment: Speci men Type: BLOOD SPECIMENOrdering Facility: [facility] Address: [address] [place] [address] Performed By: #### 5 8410-2 ####[facility]ORATORYCLIA [id number] [address] [place] MCHC (RBC) [Mass/Vol] 32.3 g/dL Normal 30.5-36.0 [facility] Comment on above: Order Comment: Speci men Type: BLOOD SPECIMENOrdering Facility: [facility] Address: [address] [place] [address] Performed By: #### 5 8410-2 ####[facility] LABORATORYCLIA [id number] [address] [place] MCV (RBC) [Entitic vol] 90.1 fL Normal 80.0-100.0 [facility] Comment on above: Order Comment: Speci men Type: BLOOD SPECIMENOrdering Facility: [facility] Address: [address] [place] [address] Performed By: #### 5 8410-2 ####[facility]ORATORYCLIA [id number] [address] Nucleated RBC (Bld) [#/Vol] 10*3/uL Normal <0.01 [facility] Comment on above: Order Comment: Speci men Type: BLOOD SPECIMENOrdering Facility: [facility] Address: [address] [place] [address] Performed By: #### 5 8410-2 ####[facility] LABORATORYCLIA [id number] [address] [place] Platelet mean volume (Bld) [Entitic vol] 12.7 fL Normal 9.0-12.7 [facility] Comment on above: Order Comment: Speci men Type: BLOOD SPECIMENOrdering Facility: [facility] Address: [address] [place] [address] Performed By: #### 5 8410-2 ####[facility] LABORATORYCLIA [id number] [address] [place] Platelets (Bld) [#/Vol] 199 10*3/uL Normal 150-400 [facility] Comment on above: Order Comment: Speci men Type: BLOOD SPECIMENOrdering Facility: [facility] Address: [address] [place] [address] Performed By: #### 5 8410-2 ####[facility] LABORATORYCLIA [id number] [address] [place] RBC (Bld) [#/Vol] 4.64 10*6/uL Normal 3.90-5.20 [facility] Comment on above: Order Comment: Speci men Type: BLOOD SPECIMENOrdering Facility: [facility] Address: [address] [place] [address] Performed By: #### 5 8410-2 ####[facility]ORATORYCLIA [id number] [address] [place] WBC (Bld) [#/Vol] 10.83 10*3/uL Normal 3.70-11.00 [facility] Comment on above: Order Comment: Speci men Type: BLOOD SPECIMENOrdering Facility: [facility] Address: [address] [place] [address] Performed By: #### 5 8410-2 ####[facility] LABORATORYCLIA [id number] [address] Comprehensive metabolic 2000 panelon 08-18-2024 Albumin [Mass/Vol] 4.4 g/dL Normal 3.9-4.9 [facility] Comment on above: Order Comment: Speci men Type: BLOOD SPECIMENOrdering Facility: [facility] Address: [address] [place] [address] Performed By: #### 2 4323-8, 18445-4, 6-3 ####[facility] LABORATORYCLIA [id number] [address] STATES OF [facility] ALP [Catalytic activity/Vol] 77 U/L Normal 34-123 [facility] Comment on above: Order Comment: Speci men Type: BLOOD SPECIMENOrdering Facility: [facility] Address: [address] [place] [address] Performed By: #### 2 4323-8, 71497-9, 6-3 ####[facility] LABORATORYCLIA [id number] [address] ALT With P-5'-P [Catalytic activity/Vol] 12 U/L Normal 7-38 [facility] Comment on above: Order Comment: Speci men Type: BLOOD SPECIMENOrdering Facility: [facility] Address: [address] [place] [address] Performed By: #### 2 4323-8, 32340-7, 3016-3 ####[facility]ORATORYCLIA [id number] [address] Anion gap [Moles/Vol] 13 mmol/L Normal 8-15 [facility] Comment on above: Order Comment: Speci men Type: BLOOD SPECIMENOrdering Facility: [facility] Address: [address] [place] [address] Performed By: #### 2 4323-8, 23076-7, 3015-3 ####[facility] LABORATORYCLIA [id number] [place] [address] [place] AST With P-5'-P [Catalytic activity/Vol] 14 U/L Normal 13-35 [facility] Comment on above: Order Comment: Speci men Type: BLOOD SPECIMENOrdering Facility: [facility] Address: [address] [place] [address] Performed By: #### 2 4323-8, 11260-1, 3 ####[facility]ORATORYCLIA [id number] [place] [address] [place] Bilirubin [Mass/Vol] 0.2 mg/dL Normal 0.2-1.3 [facility] Comment on above: Order Comment: Speci men Type: BLOOD SPECIMENOrdering Facility: [facility] Address: [address] [place] [address] Performed By: #### 2 4323-8, 59890-7, 3 ####[facility] LABORATORYCLIA [id number] [place] [address] [place] Calcium [Mass/Vol] 9.2 mg/dL Normal 8.5-10.2 [facility] Comment on above: Order Comment: Speci men Type: BLOOD SPECIMENOrdering Facility: [facility] Address: [address] [place] [address] Performed By: #### 2 4323-8, 68786-1, 3015-3 ####[facility] LABORATORYCLIA [id number] [place] [address] [place] Chloride [Moles/Vol] 105 mmol/L Normal 98-107 [facility] Comment on above: Order Comment: Speci men Type: BLOOD SPECIMENOrdering Facility: [facility] Address: [address] [place] [address] Performed By: #### 2 4323-8, 62652-4, 3 ####[facility] LABORATORYCLIA [id number] [place] [address] [place] CO2 [Moles/Vol] 26 mmol/L Normal 22-30 [facility] Comment on above: Order Comment: Speci men Type: BLOOD SPECIMENOrdering Facility: [facility] Address: [address] [place] [address] Performed By: #### 2 4323-8, 70076-4, 3 ####[facility]MELCLIA [id number] [place] [address] [place] [facility] Creatinine [Mass/Vol] 0.86 mg/dL Normal 0.58-0.96 [facility] Comment on above: Order Comment: Speci men Type: BLOOD SPECIMENOrdering Facility: [facility] Address: [address] [place] [address] Performed By: #### 2 4323-8, 51027-6, 3015-08 ####[facility]PITALIA [id number] [address] Creatinine and Glomerular filtration rate.predicted panel (S/P/Bld) 67 mL/min/1.73m??? Normal >=60 [facility] Comment on above: Order Comment: Speci men Type: BLOOD SPECIMENOrdering Facility: [facility] Address: [address] [place] [address] Result Comment: Maddie mated Glomerular Filtration Rate (eGFR) is calculated using the 2020 CKD-EPI creatinine equation. This equation utilizes serum creatinine, sex, and age as parameters. The creatinine assay has traceable calibration to isotope dilution-mass spectrometry. Refer to KDIGO guidelines for clinical interpretation. In patients with unstable renal function, e.g. those with acute kidney injury, the eGFR may not accurately reflect actual GFR. Performed By: #### 2 4323-8, 77421-2, 3 ####[facility] LABORATORYCLIA [id number] [place] [address] [place] Glucose [Mass/Vol] 107 mg/dL High 74-99 [facility] Comment on above: Order Comment: Speci men Type: BLOOD SPECIMENOrdering Facility: [facility] Address: [address] [place] [address] Result Comment: The [place] Diabetes [employer] (ADA) provides guidance for cutoff values for fasting glucose and random glucose. The ADA defines fasting as no caloric intake for at least 8 hours. Fasting plasma glucose results between 100 to 125 mg/dL indicate increased risk for diabetes (prediabetes). Fasting plasma glucose results greater than or equal to 126 mg/dL meet the criteria for diagnosis of diabetes. In the absence of unequivocal hyperglycemia, results should be confirmed by repeat testing. In a patient with classic symptoms of hyperglycemia or hyperglycemic crisis, random plasma glucose results greater than or equal to 200 mg/dL meet the criteria for diagnosis of diabetes. Reference: Standards of Medical Care in Diabetes 2016, [place] [employer] Association. Diabetes Care. 2016.39(Suppl 1). Performed By: #### 2 4323-8, 82674-0, 3015-3 ####[facility] LABORATORYCLIA [id number] [place] [address] [place] Potassium [Moles/Vol] 4.4 mmol/L Normal 3.7-5.1 [facility] Comment on above: Order Comment: Speci men Type: BLOOD SPECIMENOrdering Facility: [facility] Address: [address] [place] [address] Performed By: #### 2 4323-8, 69173-2, 3 ####[facility]ORATORYCLIA [id number] [place] [address] [place] Protein [Mass/Vol] 7.2 g/dL Normal 6.3-8.0 [facility] Comment on above: Order Comment: Speci men Type: BLOOD SPECIMENOrdering Facility: [facility] Address: [address] [place], [place] [address] Performed By: #### 2 4323-8, 68289-9, 3 ####[facility]ORATORYCLIA [id number] [place] [address] [place] Sodium [Moles/Vol] 144 mmol/L Normal 136-144 [facility] Comment on above: Order Comment: Speci men Type: BLOOD SPECIMENOrdering Facility: [facility] Address: [address] [place] [address] Performed By: #### 2 4323-8, 62715-0, 3 ####[facility] LABORATORYCLIA [id number] [place], [place] [address] [place] [address] [place] Urea nitrogen [Mass/Vol] 17 mg/dL Normal 7-21 [facility] Comment on above: Order Comment: Speci men Type: BLOOD SPECIMENOrdering Facility: [facility] Address: [address] [place] [address] Performed By: #### 2 4323-8, 22062-9, 3 ####[facility] LABORATORYCLIA [id number] [address] Lipid 1996 panelon 5 Cholesterol [Mass/Vol] 210 mg/dL High <200 [facility] Comment on above: Order Comment: Speci men Type: BLOOD SPECIMENOrdering Facility: [facility] Address: [address] [place] [address] Result Comment: <200 mg/dL, Desirable 200-239 mg/dL, Borderline high >239 mg/dL, High Performed By: #### 2 4323-8, 29680-4, 3 ####[facility]ATORYCLIA [id number] [address] STATES OF [facility] Cholesterol in HDL [Mass/Vol] 43 mg/dL Normal >39 [facility] Comment on above: Order Comment: Speci men Type: BLOOD SPECIMENOrdering Facility: [facility] Address: [address] [place] [address] Result Comment: 40-5 9 mg/dL, Acceptable >59 mg/dL, High: Negative risk factor for coronary heart disease <40 mg/dL, Low: Positive risk factor for coronary heart disease Performed By: #### 2 4323-8, 92051-9, 3 ####[facility] LABORATORYCLIA [id number] [place], [place] [address] [place] [address] [place] [facility] Cholesterol in LDL [Mass/Vol] 134 mg/dL High <100 [facility] Comment on above: Order Comment: Speci men Type: BLOOD SPECIMENOrdering Facility: [facility] Address: [address] [place] [address] Result Comment: <100 mg/dL, Optimal 100-129 mg/dL, Near optimal/above optimal 130-159 mg/dL, Borderline high 160-189 mg/dL, High >189 mg/dL, Very high Secondary prevention optimal LDL Cholesterol levels are recommended to be < 70 mg/dL Performed By: #### 2 4323-8, 26539-0, 3015-3 ####[facility] LABORATORYCLIA [id number] [place] [address] [place] Cholesterol in LDL/Cholesterol in HDL [Mass ratio] 3.12 {ratio} High <2.54 [facility] Comment on above: Order Comment: Speci men Type: BLOOD SPECIMENOrdering Facility: [facility] Address: [address] [place] [address] Result Comment: Refe rence: 1. National Cholesterol Education Program ATP III Guideline At-A-Glance Quick Desk Reference: National Heart, Lung, and Blood [place]. National Institutes of Health. 2001: NIH Publication No. 01-3305. 2. An International Atherosclerosis Society position paper: global recommendations for the management of dyslipidemia: executive summary, Atherosclerosis. 2014: 232(2):410-413. Performed By: #### 2 4323-8, 32410-1, 3015-3 ####[facility]ORATORYCLIA [id number] [place] [address] [place] Cholesterol in VLDL [Mass/Vol] 33 mg/dL High <30 [facility] Comment on above: Order Comment: Speci men Type: BLOOD SPECIMENOrdering Facility: [facility] Address: [address] [place] [address] Performed By: #### 2 4323-8, 32464-5, 3015-3 ####[facility]ORATORYCLIA [id number] [place] [address] [place] Cholesterol non HDL [Mass/Vol] 167 mg/dL High <130 [facility] Comment on above: Order Comment: Speci men Type: BLOOD SPECIMENOrdering Facility: [facility] Address: [address] [place] [address] Result Comment: <130 mg/dL, Optimal 130-159 mg/dL, Near optimal/above optimal 160-189 mg/dL, Borderline high 190-219 mg/dL, High >219 mg/dL, Very high Secondary prevention optimal non HDL Cholesterol levels are recommended to be <100 mg/dL Performed By: #### 2 4323-8, 11977-5, 3016-3 ####[facility]ORATORYCLIA [id number] [place], [place] [address] [place] [address] Cholesterol.total/Cho lesterol in HDL [Mass ratio] 4.88 {ratio} Normal <5.10 [facility] Comment on above: Order Comment: Speci men Type: BLOOD SPECIMENOrdering Facility: [facility] Address: [address] [place] [address] Performed By: #### 2 4323-8, 28917-3, 6-3 ####[facility]ATORYCLIA [id number] [address] FASTING TIME 12 hrs Normal [facility] Comment on above: Order Comment: Speci men Type: BLOOD SPECIMENOrdering Facility: [facility] Address: [address] [place] [address] Performed By: #### 2 4323-8, 76049-6, 3016-3 ####[facility]ATORYCLIA [id number] [place], [place] [address] [place] [address] [place] Triglyceride [Mass/Vol] 166 mg/dL High <150 [facility] Comment on above: Order Comment: Speci men Type: BLOOD SPECIMENOrdering Facility: [facility] Address: [address] [place] [address] Result Comment: <150 mg/dL, Normal 150-199 mg/dL, Borderline high 200-499 mg/dL, High >499 mg/dL, Very high Performed By: #### 2 4323-8, 34542-3, 3016-3 ####[facility]ATORYCLIA [id number] [place] [address] [place] TSH SerPl-aCncon 08-18-2024 TSH Qn 2.970 m[IU]/L Normal 0.270-4.20 0 [facility] Comment on above: Order Comment: Speci men Type: BLOOD SPECIMENOrdering Facility: [facility] Address: [address] [place] [address] Performed By: #### 2 4323-8, 36501-9, 3016-3 ####[facility]ATORYCLIA [id number] [address] [place] Urinalysis complete panel (U )on 08-18-2024 Bilirubin Ql (U) Negative Normal Negative [facility] Comment on above: Order Comment: Speci men Type: URINE SPECIMENOrdering Facility: [facility] Address: [address] [place] [address] Performed By: #### 2 4356-8 ####[facility]ATORYCLIA [id number] [address] [place] Clarity (Unsp spec) Clear Normal Clear [facility] Comment on above: Order Comment: Speci men Type: URINE SPECIMENOrdering Facility: [facility] Address: [address] [place] [address] Performed By: #### 2 4356-8 ####[facility]ATORYCLIA [id number] [address] [place] Color (U) Light Yellow Normal yellow [facility] Comment on above: Order Comment: Speci men Type: URINE SPECIMENOrdering Facility: [facility] Address: [address] [place] [address] Performed By: #### 2 4356-8 ####[facility]ATORYCLIA [id number] [address] [place] Epithelial cells LM.HPF (Urine sed) [#/Area] Few Normal [facility] Comment on above: Order Comment: Speci men Type: URINE SPECIMENOrdering Facility: [facility] Address: [address] [place] [address] Result Comment: Few Performed By: #### 2 4356-8 ####[facility]ATORYCLIA [id number] [address] Glucose Test strip (U) [Mass/Vol] Negative Normal Trace, Negative [facility] Comment on above: Order Comment: Speci men Type: URINE SPECIMENOrdering Facility: [facility] Address: [address] [place] [address] Performed By: #### 2 4356-8 ####[facility]ATORYCLIA [id number] [address] [place] Hemoglobin Ql (U) 2+ Abnormal Negative, Trace [facility] Comment on above: Order Comment: Speci men Type: URINE SPECIMENOrdering Facility: [facility] Address: [address] [place] [address] Performed By: #### 2 4356-8 ####[facility]ATORYCLIA [id number] [address] Ketones Ql (U) Negative Normal Negative, Trace [facility] Comment on above: Order Comment: Speci men Type: URINE SPECIMENOrdering Facility: [facility] Address: [address] [place] [address] Performed By: #### 2 4356-8 ####[facility]ATORYCLIA [id number] [address] Leukocyte esterase Test strip Ql (U) 75 Fah[place]/uL Abnormal Negative, 25 [place]ahad/uL [facility] Comment on above: Order Comment: Speci men Type: URINE SPECIMENOrdering Facility: [facility] Address: [address] [place] [address] Performed By: #### 2 4356-8 ####[facility]ATORYCLIA [id number] [address] Nitrite Ql (U) 1+ Abnormal Negative [facility] Comment on above: Order Comment: Speci men Type: URINE SPECIMENOrdering Facility: [facility] Address: [facility] [place] [address] Performed By: #### 2 4356-8 ####[facility]ORATORYCLIA [id number] [address] [place] pH (U) 5.5 [pH] Normal 5.0-8.0 [facility] Comment on above: Order Comment: Speci men Type: URINE SPECIMENOrdering Facility: [facility] Address: [address] [place] [address] Performed By: #### 2 4356-8 ####[facility]ATORYCLIA [id number] [address] Protein (U) [Mass/Vol] Negative Normal Trace, Negative [facility] Comment on above: Order Comment: Speci men Type: URINE SPECIMENOrdering Facility: [facility] Address: [address] [place] [address] Performed By: #### 2 4356-8 ####[facility]ATORYCLIA [id number] [address] STATES [facility] RBC LM.HPF (Urine sed) [#/Area] 3-5 /HPF Abnormal 0-3 /HPF [facility] Comment on above: Order Comment: Speci men Type: URINE SPECIMENOrdering Facility: [facility] Address: [address] [place] [address] Performed By: #### 2 4356-8 ####[facility]ATORYCLIA [id number] [address] [place] Specific gravity (U) [Rel density] 1.020 Normal 1.005-1.03 0 [facility] Comment on above: Order Comment: Speci men Type: URINE SPECIMENOrdering Facility: [facility] Address: [address] [place] [address] Performed By: #### 2 4356-8 ####[facility]ATORYCLIA [id number] [address] Urobilinogen Ql (U) Normal Normal Normal [facility] Comment on above: Order Comment: Speci men Type: URINE SPECIMENOrdering Facility: [facility] Address: [address] [place] [address] Performed By: #### 2 4356-8 ####[facility]ATORYCLIA [id number] [place] [address] [place] WBC LM.HPF (Urine sed) [#/Area] 6-10 /HPF Abnormal 0-5 /HPF [facility] Comment on above: Order Comment: Speci men Type: URINE SPECIMENOrdering Facility: [facility] Address: [facility] [place] [address] Performed By: #### 2 4356-8 ####[facility]ORATORYCLIA [id number] [place] [address] [place] CNCOon 08-14-2024 CNCO Letter Text Normal [facility] CNOVon 08-14-2024 CNOV Office Visit ([facility]) KATHRYN TAMEZ I ([id number]) 1940 F Date Time Provider Department 08/14/24 2:40 PM LEONARDO LYLES During your visit today, we recorded the following information about you: Temperature Pulse Blood pressure Weight 97.5 degrees 85/minute 117/62 54 kg Leonardo Lyles, [employer] 08/14/2024 4:42 PM Signed Visit Date: August 14, 2024 Patient Name: Ms.Marjorie Edith Tamez Date of : 1940 MRN/E #: [id number] Chief Complaint Patient presents with: Hospital F/U History of present illness Kathryn Tamez is a 84 year old female presents for hospital follow-up. States was diagnosed with C. difficile and was in the hospital for 6 days. I did review recent imaging and labs from [facility]. She states she is feeling back to normal. Appetite mostly back to baseline. Bowels are normal with no diarrhea. No issues with urination. No abdominal pain. She finished vancomycin as ordered. She does feel tired still but is slowly getting better. Shortness of breath at baseline. She does plan to follow-up for back surgery that had to cancel due to hospitalization. I have confirmed and edited as necessary, the PFSH and ROS obtained by others. PAIN EVALUATION No data found in the last 1 encounters. ALLERGIES No Known Allergies PAST MEDICAL HISTORY Diagnosis Date Acquired hypothyroidism Acute gastritis Adjustment disorder with depressed mood Allergic rhinitis Alopecia Arthritis left knee replaced 3 times Atrophic vaginitis Basal cell carcinoma of nasolabial groove Chronic pain Chronic pelvic pain in female Constipation COPD (chronic obstructive pulmonary disease) (HCC) Depression Dysuria Epigastric pain Essential hypertension External ear conductive hearing loss Female stress incontinence Fibromyalgia Functional diarrhea Functional disorder of bladder Generalized abdominal pain H/O goiter s/p thyroidectomy Headache Hip pain History of fall History of kidney problems renal cell carcinoma Hyperkalemia Hyperlipidemia Impacted cerumen Incomplete emptying of bladder Incontinence of feces Increased frequency of urination Jaw pain Joint pain Leukocytosis Lumbar back pain Medication monitoring encounter Migraine with aura Mitral valve prolapse Muscle pain Muscle spasms of neck and/or neck Muscle weakness Must strain to pass urine Nausea and vomiting Neck pain Neoplasm of brain (HCC) Nocturia Obesity Osteoporosis Pain in lower limb Pain in wrist Painful urging to urinate Periumbilical pain Primary fibromyalgia syndrome Dr. Clay Primary malignant neoplasm of kidney (HCC) Refractory migraine with aura Restless legs Sleep deprivation Spasm of back muscles Temporomandibular joint disorder Tobacco dependence syndrome Tobacco use quit smoking in 04-25 Urinary incontinence, mixed Urinary tract infectious disease Viral gastroenteritis PAST SURGICAL HISTORY Procedure Laterality Date ANKLE SURGERY HX Right 2012 ankle ARTHRP KNE CONDYLEANDPLATU MEDIALANDLAT COMPARTMENTS Left X3 CHOLECYSTECTOMY COLONOSCOPY 08/05/2018 Dr. Guan (repeat in 10 years) HAND SURGERY HX Right 04/2022 KIDNEY SURGERY HX Left 2003 Removed- renal cell CA LEG SURGERY HX x6 PAST SURGICAL HISTORY OF 06/26/2015 Temporary Implant placed right hip for bladder control PAST SURGICAL HISTORY OF 07/02/2015 Permanent implant placed right hip for bladder control PAST SURGICAL HISTORY OF Left Hip fracture PAST SURGICAL HISTORY OF Left Broken Femur PAST SURGICAL HISTORY OF Right 07/26/2023 rt ring finger release THYROID SURGERY HX 2004 partial TOTAL ABDOMINAL HYSTERECT W/WO RMVL TUBE OVARY BSO Social History Tobacco Use Smoking status: Former Current packs/day: 0.00 Types: Cigarettes Start date: 08/18/1958 Quit date: 08/18/2018 Years since quittin.9 Smokeless tobacco: Never Tobacco comments: One pack of cigarettes every 3 weeks Vaping Use Vaping status: Never Used Substance Use Topics Alcohol use: No Comment: Rarely Drug use: No FAMILY HISTORY Problem Relation Age of Onset Cancer Father Hypertension Sister Stroke Sister Coronary Artery Disease Sister Diabetes Sister Leukemia Sister Colon Cancer No Family History Review of Systems Constitutional: Negative for chills and fever. Respiratory: Negative for shortness of breath. Cardiovascular: Negative for chest pain. Neurological: Negative for dizziness and headaches. BP 117/62 Pulse 85 Temp (Src) 97.5 (Temporal) Wt 119 lb (54.0kg) SpO2 96% Last 3 Encounter BP Readings: Date: BP: 08/14/2024 117/62 07/10/2024 118/70 04/01/2024 120/68 Last 3 Encounter Wt Readings: Date: Wt: 08/14/2024 119 lb (54 kg) 07/10/2024 120 lb 12.8 oz (54.8 kg) 04/01/2024 109 lb (49.4 kg) Physica (more content not included)... Normal [facility] 30on 07-24-2024 30 Normal [facility] BASIC METABOLIC PANELon 07-12 Anion gap [Moles/Vol] 6 mmol/L Normal - [facility] Comment on above: Performed By: #### L AB15, [id number] ####Staff Field Engineer: LYDIA LION ([id number])[address] Calcium [Mass/Vol] 7.9 mg/dL Low 8.8-10.0 [facility] Comment on above: Performed By: #### L AB15, [id number] ####Staff Field Engineer: LYDIA LION ([id number])[address] Chloride [Moles/Vol] 113 mmol/L High 98-107 [facility] Comment on above: Performed By: #### L AB15, [id number] ####Staff Field Engineer: LYDIA LION ([id number])[facility] ([facility])[address] [place] [address] CO2 [Moles/Vol] 23 mmol/L Normal 23-31 [facility] Comment on above: Performed By: #### L AB15, [id number] ####Staff Field Engineer: LYDIA LION ([id number])[facility] ([facility])[address] [place] [address] Creatinine [Mass/Vol] 0.68 mg/dL Normal 0.57-1.11 [facility] Comment on above: Performed By: #### L AB15, [id number] ####Staff Field Engineer: LYDIA LION ([id number])[facility])[address] [place] [address] GLOMERULAR FILTRATION RATE ML/MIN/1.73 SQ M.PREDICTED 86.0 mL/min/1.73m*2 Normal >60.0 [facility] Comment on above: Result Comment: Calc ulation based on the Chronic Kidney Disease Epidemiology Collaboration (CKD-EPI) equation refit without adjustment for race Performed By: #### L AB15, [id number] ####Staff Field Engineer: LYDIA LION ([id number])[facility] ([facility])[address] [place] [address] Glucose [Mass/Vol] 98 mg/dL Normal 82-115 [facility] Comment on above: Performed By: #### L AB15, [id number] ####Staff Field Engineer: LYDIA LION ([id number])[facility])[address] [place] [address] Potassium [Moles/Vol] 3.3 mmol/L Low 3.5-5.1 [facility] Comment on above: Result Comment: [facility] potassium values may be up to 0.5 mmol/L lower than serum values. Performed By: #### L AB15, [id number] ####Staff Field Engineer: LYDIA LION ([id number])[facility])[address] [place] [address] Sodium [Moles/Vol] 142 mmol/L Normal 136-145 [facility] Comment on above: Performed By: #### L AB15, [id number] ####Staff Field Engineer: LYDIA LION ([id number])[facility])[address] [place] [address] Urea nitrogen [Mass/Vol] 5 mg/dL Low 9-23 [facility] Comment on above: Performed By: #### L AB15, [id number] ####Staff Field Engineer: LYDIA LION ([id number])[facility])[address] [place] [address] Basic metabolic 1998 panelon 07-24-2024 Anion gap [Moles/Vol] 6 mmol/L 3 - 13 mmol/L [facility] Calcium [Mass/Vol] 7.9 mg/dL Low 8.8 - 10. 0 mg/dL [facility] Chloride [Moles/Vol] 113 mmol/L High 98 - 10 7 mmol/L [facility] CO2 [Moles/Vol] 23 mmol/L 23 - 31 mmol/L [facility] Creatinine [Mass/Vol] 0.68 mg/dL 0.57 - 1.11 mg/dL [facility] GFR/1.73 sq M.predicted (S/P/Bld) [Vol rate/Area] 86 mL/min - PINF [facility] Comment on above: Calculation based on the Chronic Kidney Disease Epidemiology Collaboration (CKD-EPI) equation refit without adjustment for race Glucose [Mass/Vol] 98 mg/dL 82 - 115 mg/dL [facility] Interpretation and review of laboratory results Abnormal [facility] Potassium [Moles/Vol] 3.3 mmol/L Low 3.5 - 5.1 mmol/L [facility] Comment on above: Plasma potassium chandler ues may be up to 0.5 mmol/L lower than serum values. Sodium [Moles/Vol] 142 mmol/L 136 - 145 mmol/L [facility] Urea nitrogen [Mass/Vol] 5 mg/dL Low 9 - 23 mg/dL [facility] CBC (HEMOGRAM)on 07-24-2024 Erythrocyte distribution width (RBC) [Ratio] 13.8 % Normal 11.5-15.0 [facility] Comment on above: Performed By: #### L [id number] ####Staff Field Engineer: LYDIA LION ([id number])[facility])[address] [place] [address] Hematocrit (Bld) [Volume fraction] 32.0 % Low 35.0-47.0 [facility] Comment on above: Performed By: #### L AB294 ####Staff Field Engineer: LYDIA LION ([id number])[facility])[address] [place] [address] Hemoglobin (Bld) [Mass/Vol] 10.9 g/dL Low 11.7-16.0 [facility] Comment on above: Performed By: #### L AB294 ####Staff Field Engineer: LYDIA LION ([id number])[facility])[address] [place] [address] MCH (RBC) [Entitic mass] 28.7 pg Normal 26.0-34.0 [facility] Comment on above: Performed By: #### L AB294 ####Staff Field Engineer: LYDIA LION ([id number])[facility])[address] [place] [address] MCHC 34.1 % Normal 30.5-36.0 [facility] Comment on above: Performed By: #### L AB294 ####Staff Field Engineer: LYDIA LION ([id number])[facility])[address] [place] [address] MCV (RBC) [Entitic vol] 84.2 fL Normal 77.0-99.0 [facility] Comment on above: Performed By: #### L AB294 ####Staff Field Engineer: LYDIA LOIN ([id number])[facility])[address] [place] [address] Platelet mean volume (Bld) [Entitic vol] 11.4 fL Normal 9.0-12.7 [facility] Comment on above: Performed By: #### L AB294 ####Staff Field Engineer: LYDIA LION ([id number])[facility])[address] [place] [address] Platelets (Bld) [#/Vol] 193 10*3/uL Normal 140-440 [facility] Comment on above: Performed By: #### L AB294 ####Staff Field Engineer: LYDIA LION ([id number])[address] RBC (Bld) [#/Vol] 3.80 10*6/uL Normal 3.80-5.20 [facility] Comment on above: Performed By: #### L AB294 ####Staff Field Engineer: LYDIA LION ([id number])[facility] ([facility])[address] [place] [address] WBC (Bld) [#/Vol] 9.8 10*3/uL Normal 3.6-10.7 [facility] Comment on above: Performed By: #### L AB294 ####Staff Field Engineer: LYDIA LION ([id number])[address] CBC panel Auto (Bld)on 07-24 Erythrocyte distribution width (RBC) [Ratio] 13.8 % 11.5 - 15.0 % [facility] Hematocrit (Bld) [Volume fraction] 32 % Low 35.0 - 47.0 % [facility] Hemoglobin (Bld) [Mass/Vol] 10.9 g/dL Low 11.7 - 16.0 g/dL [facility] Interpretation and review of laboratory results Abnormal [facility] MCH (RBC) [Entitic mass] 28.7 pg 26.0 - 34.0 pg [facility] MCHC (RBC) [Mass/Vol] 34.1 % 30.5 - 36.0 % [facility] MCV (RBC) [Entitic vol] 84.2 fL 77.0 - 99.0 fL [facility] Platelet mean volume (Bld) [Entitic vol] 11.4 fL 9.0 - 12.7 fL [facility] Platelets (Bld) [#/Vol] 193 10*3/uL 140 - 440 10*3/uL [facility] RBC (Bld) [#/Vol] 3.8 10*6/uL 3.80 - 5.20 10*6/uL [facility] WBC (Bld) [#/Vol] 9.8 10*3/uL 3.6 - 10.7 10*3/uL [facility] Laboratory - Chemistry and C hemistry - challengeon 07-24-2024 Magnesium [Mass/Vol] 1.8 mg/dL 1.6 - 2 .6 mg/dL [facility] MAGNESIUMon 07-24-2024 Magnesium [Mass/Vol] 1.8 mg/dL Normal 1.6-2.6 [facility] Comment on above: Result Comment: BRANDEN Rubio COMMENTS:Higher values can be expected in females during menses. Performed By: #### L AB15, [id number] ####Staff Field Engineer: LYDIA LION ([id number])[facility] ([facility])[address] [place] [address] Magnesium [Mass/Vol]on 07-24 Interpretation and review of laboratory results Normal [facility] Higher values can be expected in females during menses. [facility] 30on 07-23-2024 30 Normal [facility] BASIC METABOLIC PANELon 07-12 Anion gap [Moles/Vol] 5 mmol/L Normal 3-13 [facility] Comment on above: Performed By: #### L AB15, [id number] ####Staff Field Engineer: LYDIA LION ([id number])[facility] ([facility])[address] [place] [address] Calcium [Mass/Vol] 7.6 mg/dL Low 8.8-10.0 [facility] Comment on above: Performed By: #### L AB15, [id number] ####Staff Field Engineer: LYDIA LION ([id number])[facility] ([facility])[address] [place] [address] [place] Chloride [Moles/Vol] 112 mmol/L High 98-107 [facility] Comment on above: Performed By: #### L AB15, [id number] ####Staff Field Engineer: LYDIA LION ([id number])[facility] ([facility])[address] [place] [address] [place] CO2 [Moles/Vol] 22 mmol/L Low 23-31 [facility] Comment on above: Performed By: #### L AB15, [id number] ####Staff Field Engineer: LYIDA LION ([id number])[facility])[address] [place] [address] Creatinine [Mass/Vol] 0.67 mg/dL Normal 0.57-1.11 [facility] Comment on above: Performed By: #### L AB15, [id number] ####Staff Field Engineer: LYDIA LION ([id number])[facility])[address] [place] [address] GLOMERULAR FILTRATION RATE ML/MIN/1.73 SQ M.PREDICTED 86.3 mL/min/1.73m*2 Normal >60.0 [facility] Comment on above: Result Comment: Calc ulation based on the Chronic Kidney Disease Epidemiology Collaboration (CKD-EPI) equation refit without adjustment for race Performed By: #### L AB15, [id number] ####Staff Field Engineer: LYDIA LION ([id number])[facility])[address] [place] [address] Glucose [Mass/Vol] 100 mg/dL Normal 82-115 [facility] Comment on above: Performed By: #### L AB15, [id number] ####Staff Field Engineer: LYDIA LION ([id number])[address] Potassium [Moles/Vol] 3.1 mmol/L Low 3.5-5.1 [facility] Comment on above: Result Comment: [facility] potassium values may be up to 0.5 mmol/L lower than serum values. Performed By: #### L AB15, [id number] ####Staff Field Engineer: LYDIA LION ([id number])[facility])[address] [place] [address] Sodium [Moles/Vol] 139 mmol/L Normal 136-145 [facility] Comment on above: Performed By: #### L AB15, [id number] ####Staff Field Engineer: LYDIA LION ([id number])[address] Urea nitrogen [Mass/Vol] 4 mg/dL Low 9-23 [facility] Comment on above: Performed By: #### L AB15, [id number] ####Staff Field Engineer: LYDIA LION ([id number])[facility] ([facility])[address] Bacteria identified Cx Nom ( Bld)on 07-23-2024 Interpretation and review of laboratory results Normal [facility] Blood Collection Sit e: Left Antecubital [facility] Basic metabolic 1998 panelon 07-23-2024 Anion gap [Moles/Vol] 5 mmol/L 3 - 13 mmol/L [facility] Calcium [Mass/Vol] 7.6 mg/dL Low 8.8 - 10. 0 mg/dL [facility] Chloride [Moles/Vol] 112 mmol/L High 98 - 10 7 mmol/L [facility] CO2 [Moles/Vol] 22 mmol/L Low 23 - 31 mmol/L [facility] Creatinine [Mass/Vol] 0.67 mg/dL 0.57 - 1.11 mg/dL [facility] GFR/1.73 sq M.predicted (S/P/Bld) [Vol rate/Area] 86.3 mL/min - PINF [facility] Comment on above: Calculation based on the Chronic Kidney Disease Epidemiology Collaboration (CKD-EPI) equation refit without adjustment for race Glucose [Mass/Vol] 100 mg/dL 82 - 115 mg/dL [facility] Interpretation and review of laboratory results Abnormal [facility] Potassium [Moles/Vol] 3.1 mmol/L Low 3.5 - 5.1 mmol/L [facility] Comment on above: Plasma potassium chandler ues may be up to 0.5 mmol/L lower than serum values. Sodium [Moles/Vol] 139 mmol/L 136 - 145 mmol/L [facility] Urea nitrogen [Mass/Vol] 4 mg/dL Low 9 - 23 mg/dL [facility] CBC (HEMOGRAM)on 07-23-2024 Erythrocyte distribution width (RBC) [Ratio] 13.7 % Normal 11.5-15.0 [facility] Comment on above: Performed By: #### L [id number] ####Staff Field Engineer: LYDIA LION ([id number])[facility] ([facility])[address] [place] [address] Hematocrit (Bld) [Volume fraction] 31.5 % Low 35.0-47.0 [facility] Comment on above: Performed By: #### L [id number] ####Staff Field Engineer: LYDIA LION ([id number])[facility] ([facility])[address] [place] [address] Hemoglobin (Bld) [Mass/Vol] 10.6 g/dL Low 11.7-16.0 [facility] Comment on above: Performed By: #### L [id number] ####Staff Field Engineer: LYDIA LION ([id number])[facility] ([facility])[address] [place] [address] MCH (RBC) [Entitic mass] 28.2 pg Normal 26.0-34.0 [facility] Comment on above: Performed By: #### L [id number] ####Staff Field Engineer: LYDIA LION ([id number])[facility] ([facility])[address] [place] [address] MCHC 33.7 % Normal 30.5-36.0 [facility] Comment on above: Performed By: #### L [id number] ####Staff Field Engineer: LYDIA LION ([id number])[facility] ([facility])[address] [place] [address] MCV (RBC) [Entitic vol] 83.8 fL Normal 77.0-99.0 [facility] Comment on above: Performed By: #### L [id number] ####Staff Field Engineer: LYDIA LION ([id number])[facility] ([facility])[address] [place] [address] Platelet mean volume (Bld) [Entitic vol] 11.7 fL Normal 9.0-12.7 [facility] Comment on above: Performed By: #### L [id number] ####Staff Field Engineer: LYDIA LION ([id number])[facility] ([facility])[address] [place] [address] [place] Platelets (Bld) [#/Vol] 195 10*3/uL Normal 140-440 [facility] Comment on above: Performed By: #### L [id number] ####Staff Field Engineer: LYDIA LION ([id number])[facility])[address] [place] [address] RBC (Bld) [#/Vol] 3.76 10*6/uL Low 3.80-5.20 [facility] Comment on above: Performed By: #### L [id number] ####Staff Field Engineer: LYDIA LION ([id number])[facility] ([facility])[address] [place] [address] WBC (Bld) [#/Vol] 9.9 10*3/uL Normal 3.6-10.7 [facility] Comment on above: Performed By: #### L [id number] ####Staff Field Engineer: LYDIA LION ([id number])[address] CBC panel Auto (Bld)on 07-23 Erythrocyte distribution width (RBC) [Ratio] 13.7 % 11.5 - 15.0 % [facility] Hematocrit (Bld) [Volume fraction] 31.5 % Low 35.0 - 47.0 % [facility] Hemoglobin (Bld) [Mass/Vol] 10.6 g/dL Low 11.7 - 16.0 g/dL [facility] Interpretation and review of laboratory results Abnormal [facility] MCH (RBC) [Entitic mass] 28.2 pg 26.0 - 34.0 pg [facility] MCHC (RBC) [Mass/Vol] 33.7 % 30.5 - 36.0 % [facility] MCV (RBC) [Entitic vol] 83.8 fL 77.0 - 99.0 fL [facility] Platelet mean volume (Bld) [Entitic vol] 11.7 fL 9.0 - 12.7 fL [facility] Platelets (Bld) [#/Vol] 195 10*3/uL 140 - 440 10*3/uL [facility] RBC (Bld) [#/Vol] 3.76 10*6/uL Low 3.80 - 5.20 10*6/uL [facility] WBC (Bld) [#/Vol] 9.9 10*3/uL 3.6 - 10.7 10*3/uL [facility] Laboratory - Chemistry and C hemistry - challengeon 07-23-2024 Magnesium [Mass/Vol] 2 mg/dL 1.6 - 2 .6 mg/dL [facility] Laboratory - Microbiology an d Antimicrobial susceptibilityon 07-23-2024 Bacteria identified Cx Nom (Bld) No growth at 5 days [facility] MAGNESIUMon 07-23-2024 Magnesium [Mass/Vol] 2.0 mg/dL Normal 1.6-2.6 [facility] Comment on above: Result Comment: ORDE R COMMENTS:Higher values can be expected in females during menses. Performed By: #### L AB15, [id number] ####Staff Field Engineer: LYDIA LION ([id number])[facility] ([facility])[address] [place] [address] Magnesium [Mass/Vol]on 07-23 Interpretation and review of laboratory results Normal [facility] Higher values can be expected in females during menses. [facility] Progress Noteon 07-23-2024 Progress Note Normal [facility] Progress Note Normal [facility] Progress Note Normal [facility] 30on 07-22-2024 30 Normal [facility] 30 Normal [facility] 30 Normal [facility] BASIC METABOLIC PANELon 07-12 Anion gap [Moles/Vol] 7 mmol/L Normal 3-13 [facility] Comment on above: Performed By: #### L AB15 ####Staff Field Engineer: LYDIA LION ([id number])[facility] ([facility])[address] [place] [address] [place] Calcium [Mass/Vol] 7.5 mg/dL Low 8.8-10.0 [facility] Comment on above: Performed By: #### L AB15 ####Staff Field Engineer: LYDIA LION ([id number])[facility] ([facility])[address] [place] [address] [place] Chloride [Moles/Vol] 112 mmol/L High 98-107 [facility] Comment on above: Performed By: #### L AB15 ####Staff Field Engineer: LYDIA LION ([id number])[facility])[address] [place] [address] CO2 [Moles/Vol] 21 mmol/L Low 23-31 [facility] Comment on above: Performed By: #### L AB15 ####Staff Field Engineer: LYDIA LION ([id number])[facility])[address] [place] [address] Creatinine [Mass/Vol] 0.73 mg/dL Normal 0.57-1.11 [facility] Comment on above: Performed By: #### L AB15 ####Staff Field Engineer: LYDIA LION ([id number])[facility])[address] [place] [address] GLOMERULAR FILTRATION RATE ML/MIN/1.73 SQ M.PREDICTED 81.2 mL/min/1.73m*2 Normal >60.0 [facility] Comment on above: Result Comment: Calc ulation based on the Chronic Kidney Disease Epidemiology Collaboration (CKD-EPI) equation refit without adjustment for race Performed By: #### L AB15 ####Staff Field Engineer: LYDIA LION ([id number])[facility])[address] [place] [address] Glucose [Mass/Vol] 133 mg/dL High 82-115 [facility] Comment on above: Performed By: #### L AB15 ####Staff Field Engineer: LYDIA LION ([id number])[facility])[address] [place] [address] Potassium [Moles/Vol] 3.2 mmol/L Low 3.5-5.1 [facility] Comment on above: Result Comment: [facility] potassium values may be up to 0.5 mmol/L lower than serum values. Performed By: #### L AB15 ####Staff Field Engineer: LYDIA LION ([id number])[facility])[address] [place] [address] [place] Sodium [Moles/Vol] 140 mmol/L Normal 136-145 [facility] Comment on above: Performed By: #### L AB15 ####Staff Field Engineer: LYDIA LION ([id number])[facility])[address] [place] [address] Urea nitrogen [Mass/Vol] 6 mg/dL Low 9-23 [facility] Comment on above: Performed By: #### L AB15 ####Staff Field Engineer: LYDIA LION ([id number])[facility] ([facility])[address] [place] [address] Basic metabolic 1998 panelon 07-22-2024 Anion gap [Moles/Vol] 7 mmol/L 3 - 13 mmol/L [facility] Calcium [Mass/Vol] 7.5 mg/dL Low 8.8 - 10. 0 mg/dL [facility] Chloride [Moles/Vol] 112 mmol/L High 98 - 10 7 mmol/L [facility] CO2 [Moles/Vol] 21 mmol/L Low 23 - 31 mmol/L [facility] Creatinine [Mass/Vol] 0.73 mg/dL 0.57 - 1.11 mg/dL [facility] GFR/1.73 sq M.predicted (S/P/Bld) [Vol rate/Area] 81.2 mL/min - PINF [facility] Comment on above: Calculation based on the Chronic Kidney Disease Epidemiology Collaboration (CKD-EPI) equation refit without adjustment for race Glucose [Mass/Vol] 133 mg/dL High 82 - 115 mg/dL [facility] Interpretation and review of laboratory results Abnormal [facility] Potassium [Moles/Vol] 3.2 mmol/L Low 3.5 - 5.1 mmol/L [facility] Comment on above: Plasma potassium chandler ues may be up to 0.5 mmol/L lower than serum values. Sodium [Moles/Vol] 140 mmol/L 136 - 145 mmol/L [facility] Urea nitrogen [Mass/Vol] 6 mg/dL Low 9 - 23 mg/dL [facility] CBC (HEMOGRAM)on 07-22-2024 Erythrocyte distribution width (RBC) [Ratio] 13.7 % Normal 11.5-15.0 [facility] Comment on above: Performed By: #### L [id number] ####Staff Field Engineer: LYDIA LION ([id number])[facility])[address] [place] [address] Hematocrit (Bld) [Volume fraction] 31.8 % Low 35.0-47.0 [facility] Comment on above: Performed By: #### L [id number] ####Staff Field Engineer: LYDIA LION ([id number])[facility])[address] [place] [address] Hemoglobin (Bld) [Mass/Vol] 10.2 g/dL Low 11.7-16.0 [facility] Comment on above: Performed By: #### L [id number] ####Staff Field Engineer: LYDIA LION ([id number])[facility])[address] [place] [address] MCH (RBC) [Entitic mass] 28.1 pg Normal 26.0-34.0 [facility] Comment on above: Performed By: #### L [id number] ####Staff Field Engineer: LYDIA LION ([id number])[facility])[address] [place] [address] MCHC 32.1 % Normal 30.5-36.0 [facility] Comment on above: Performed By: #### L [id number] ####Staff Field Engineer: LYDIA LION ([id number])[facility])[address] [place] [address] MCV (RBC) [Entitic vol] 87.6 fL Normal 77.0-99.0 [facility] Comment on above: Performed By: #### L [id number] ####Staff Field Engineer: LYDIA LION ([id number])[facility])[address] [place] [address] Platelet mean volume (Bld) [Entitic vol] 11.9 fL Normal 9.0-12.7 [facility] Comment on above: Performed By: #### L [id number] ####Staff Field Engineer: LYDIA LION ([id number])[facility])[address] [place] [address] Platelets (Bld) [#/Vol] 191 10*3/uL Normal 140-440 [facility] Comment on above: Performed By: #### L [id number] ####Staff Field Engineer: LYDIA LION ([id number])[facility])[address] [place] [address] RBC (Bld) [#/Vol] 3.63 10*6/uL Low 3.80-5.20 [facility] Comment on above: Performed By: #### L [id number] ####Staff Field Engineer: LYDIA LION ([id number])[address] WBC (Bld) [#/Vol] 10.1 10*3/uL Normal 3.6-10.7 [facility] Comment on above: Performed By: #### L [id number] ####Staff Field Engineer: LYDIA LION ([id number])[address] CBC panel Auto (Bld)on 07-22 Erythrocyte distribution width (RBC) [Ratio] 13.7 % 11.5 - 15.0 % [facility] Hematocrit (Bld) [Volume fraction] 31.8 % Low 35.0 - 47.0 % [facility] Hemoglobin (Bld) [Mass/Vol] 10.2 g/dL Low 11.7 - 16.0 g/dL [facility] Interpretation and review of laboratory results Abnormal [facility] MCH (RBC) [Entitic mass] 28.1 pg 26.0 - 34.0 pg [facility] MCHC (RBC) [Mass/Vol] 32.1 % 30.5 - 36.0 % [facility] MCV (RBC) [Entitic vol] 87.6 fL 77.0 - 99.0 fL [facility] Platelet mean volume (Bld) [Entitic vol] 11.9 fL 9.0 - 12.7 fL [facility] Platelets (Bld) [#/Vol] 191 10*3/uL 140 - 440 10*3/uL [facility] RBC (Bld) [#/Vol] 3.63 10*6/uL Low 3.80 - 5.20 10*6/uL [facility] WBC (Bld) [#/Vol] 10.1 10*3/uL 3.6 - 10.7 10*3/uL [facility] Nursing Noteon 07-22-2024 Nursing Note Normal [facility] [employer] Progress Noteon 07-22-2024 Progress Note Normal [facility] [employer] Progress Note Normal [facility] [employer] [id number] 07-21-2024 [id number] Normal [facility] CBC W Auto Differential pane l (Bld)Ordered By: Cody Wilkins on 07-21-2024 Basophils (Bld) [#/Vol] 0 10*3/uL 0.0 - 0.2 10*3/uL [facility] Basophils/100 WBC (Bld) 0.2 % 0.0 - 2.0 % [facility] Eosinophils (Bld) [#/Vol] 0 10*3/uL 0.0 - 0.5 10*3/uL [facility] Eosinophils/100 WBC (Bld) 0 % 0.0 - 6.0 % [facility] Erythrocyte distribution width (RBC) [Ratio] 13.8 % 11.5 - 15.0 % [facility] Hematocrit (Bld) [Volume fraction] 31.8 % Low 35.0 - 47.0 % [facility] Hemoglobin (Bld) [Mass/Vol] 10.3 g/dL Low 11.7 - 16.0 g/dL [facility] Immature granulocytes (Bld) [#/Vol] 0 10*3/uL NINF - 0.1 10*3/uL [facility] Immature granulocytes/100 WBC (Bld) 0.4 % 0.0 - 2.0 % [facility] Interpretation and review of laboratory results Abnormal [facility] Lymphocytes (Bld) [#/Vol] 2.7 10*3/uL 1.0 - 4.3 10*3/uL [facility] Lymphocytes/100 WBC (Bld) 26.9 % 15.0 - 45.0 % [facility] MCH (RBC) [Entitic mass] 28.4 pg 26.0 - 34.0 pg [facility] MCHC (RBC) [Mass/Vol] 32.4 % 30.5 - 36.0 % [facility] [employer] MCV (RBC) [Entitic vol] 87.6 fL 77.0 - 99.0 fL [facility] [employer] Monocytes (Bld) [#/Vol] 2.7 10*3/uL High 0.0 - 0.9 10*3/uL [facility] Monocytes/100 WBC (Bld) 27 % High 5.0 - 13.0 % [facility] Neutrophils (Bld) [#/Vol] 4.5 10*3/uL 1.8 - 7.5 10*3/uL [facility] Neutrophils/100 WBC (Bld) 45.5 % 38.0 - 82.0 % [facility] Nucleated RBC/100 WBC (Bld) [Ratio] 0 % [facility] [employer] Platelet mean volume (Bld) [Entitic vol] 12.1 fL 9.0 - 12.7 fL [facility] Platelets (Bld) [#/Vol] 187 10*3/uL 140 - 440 10*3/uL [facility] RBC (Bld) [#/Vol] 3.63 10*6/uL Low 3.80 - 5.20 10*6/uL [facility] WBC (Bld) [#/Vol] 10 10*3/uL 3.6 - 10.7 10*3/uL [facility] CBC WITH AUTO DIFFERENTIALon 07-21-2024 Basophils (Bld) [#/Vol] 0.0 10*3/uL Normal 0.0-0.2 [facility] Comment on above: Performed By: #### L [id number] ####Staff Field Engineer: LYDIA LION ([id number])[address] Basophils/100 WBC (Bld) 0.2 % Normal 0.0-2.0 [facility] Comment on above: Performed By: #### L [id number] ####Staff Field Engineer: LYDIA LION ([id number])[facility])[address] [place] [address] Eosinophils (Bld) [#/Vol] 0.0 10*3/uL Normal 0.0-0.5 [facility] Comment on above: Performed By: #### L [id number] ####Staff Field Engineer: LYDIA LION ([id number])[facility])[address] [place] [address] Eosinophils/100 WBC (Bld) 0.0 % Normal 0.0-6.0 [facility] Comment on above: Performed By: #### L [id number] ####Staff Field Engineer: LYDIA LION ([id number])[facility])[address] [place] [address] Erythrocyte distribution width (RBC) [Ratio] 13.8 % Normal 11.5-15.0 [facility] Comment on above: Performed By: #### L [id number] ####Staff Field Engineer: LYDIA LION ([id number])[address] Hematocrit (Bld) [Volume fraction] 31.8 % Low 35.0-47.0 [facility] Comment on above: Performed By: #### L [id number] ####Staff Field Engineer: LYDIA LION ([id number])[address] Hemoglobin (Bld) [Mass/Vol] 10.3 g/dL Low 11.7-16.0 [facility] Comment on above: Performed By: #### L [id number] ####Staff Field Engineer: LYDIA LION ([id number])[facility])[address] [place] [address] IMMATURE GRANS % 0.4 % Normal 0.0-2.0 [facility] Comment on above: Performed By: #### L [id number] ####Staff Field Engineer: LYDIA LION ([id number])[address] IMMATURE GRANS ABSOLUTE 0.0 10*3/uL Normal <0.1 [facility] Comment on above: Performed By: #### L [id number] ####Staff Field Engineer: LYDIA LION ([phone])[facility])[address] [place] [address] Lymphocytes (Bld) [#/Vol] 2.7 10*3/uL Normal 1.0-4.3 [facility] Comment on above: Performed By: #### L [id number] ####Staff Field Engineer: LYDIA LION ([id number])[facility])[address] [place] [address] Lymphocytes/100 WBC (Bld) 26.9 % Normal 15.0-45.0 [facility] Comment on above: Performed By: #### L [id number] ####Staff Field Engineer: LYDIA LION ([id number])[facility])[address] [place] [address] MCH (RBC) [Entitic mass] 28.4 pg Normal 26.0-34.0 [facility] Comment on above: Performed By: #### L [id number] ####Staff Field Engineer: LYDIA LION ([id number])[facility])[address] [place] [address] MCHC 32.4 % Normal 30.5-36.0 [facility] Comment on above: Performed By: #### L [id number] ####Staff Field Engineer: LYDIA LION ([id number])[facility])[address] [place] [address] MCV (RBC) [Entitic vol] 87.6 fL Normal 77.0-99.0 [facility] Comment on above: Performed By: #### L [id number] ####Staff Field Engineer: LYDIA LION ([id number])[facility])[address] [place] [address] Monocytes (Bld) [#/Vol] 2.7 10*3/uL High 0.0-0.9 [facility] Comment on above: Performed By: #### L [id number] ####Staff Field Engineer: LYDIA LION ([id number])[facility])[address] [place] [address] Monocytes/100 WBC (Bld) 27.0 % High 5.0-13.0 [facility] Comment on above: Performed By: #### L [id number] ####Staff Field Engineer: LYDIA LION ([id number])[facility] ([facility])[address] [place] [address] NEUTROPHILS ABSOLUTE 4.5 10*3/uL Normal 1.8-7.5 [facility] Comment on above: Performed By: #### L [id number] ####Staff Field Engineer: LYDIA LION ([id number])[facility] ([facility])[address] [place] [address] Neutrophils/100 WBC (Bld) 45.5 % Normal 38.0-82.0 [facility] Comment on above: Performed By: #### L [id number] ####Staff Field Engineer: LYDIA LION ([id number])[facility] ([facility])[address] [place] [address] NRBC 0.0 /100 WBCs Normal 0.0-2.0 [facility] Comment on above: Performed By: #### L [id number] ####Staff Field Engineer: LYDIA LION ([id number])[facility] ([facility])[address] [place] [address] Platelet mean volume (Bld) [Entitic vol] 12.1 fL Normal 9.0-12.7 [facility] Comment on above: Performed By: #### L [id number] ####Staff Field Engineer: LYDIA LION ([id number])[facility] ([facility])[address] [place] [address] Platelets (Bld) [#/Vol] 187 10*3/uL Normal 140-440 [facility] Comment on above: Performed By: #### L [id number] ####Staff Field Engineer: LYDIA LION ([id number])[facility] ([facility])[address] [place] [address] RBC (Bld) [#/Vol] 3.63 10*6/uL Low 3.80-5.20 [facility] Comment on above: Performed By: #### L [id number] ####Staff Field Engineer: LYDIA LION ([id number])[facility] ([facility])[address] [place] [address] WBC (Bld) [#/Vol] 10.0 10*3/uL Normal 3.6-10.7 [facility] Comment on above: Performed By: #### L [id number] ####Staff Field Engineer: LYDIA LION ([id number])[facility] ([facility])[address] [place] [address] COMPREHENSIVE METABOLIC PANE Hank 07-21-2024 Albumin [Mass/Vol] 3.2 g/dL Low 3.4-4.8 [facility] Comment on above: Performed By: #### Naun AB103, LAB17, [id number] ####Staff Field Engineer: LYDIA LION ([id number])[facility] ([facility])[address] [place] [address] ALP [Catalytic activity/Vol] 57 U/L Normal 40-150 [facility] Comment on above: Performed By: #### Naun AB103, LAB17, [id number] ####Staff Field Engineer: LYDIA LION ([id number])[facility] ([facility])[address] [place] [address] ALT [Catalytic activity/Vol] 17 U/L Normal <30 [facility] Comment on above: Performed By: #### Naun AB103, LAB17, [id number] ####Staff Field Engineer: LYDIA LION ([id number])[facility])[address] [place] [address] Anion gap [Moles/Vol] 8 mmol/L Normal 3-13 [facility] Comment on above: Performed By: #### L AB103, LAB17, [id number] ####Staff Field Engineer: LYDIA LION ([id number])[facility])[address] [place] [address] AST [Catalytic activity/Vol] 15 U/L Normal <34 [facility] Comment on above: Performed By: #### L AB103, LAB17, [id number] ####Staff Field Engineer: LYDIA [id number])[facility] ([facility])[address] [place] [address] [place] Bilirubin [Mass/Vol] 0.2 mg/dL Normal <1.2 [facility] Comment on above: Performed By: #### L AB103, LAB17, [id number] ####Staff Field Engineer: LYDIA LION ([id number])[facility] ([facility] [place] [address] Calcium [Mass/Vol] 7.6 mg/dL Low 8.8-10.0 [facility] Comment on above: Performed By: #### Naun ABJonathan, LAB17, [id number] ####Staff Field Engineer: LYDIA LION ([id number])[facility] ([facility])[address] [place] [address] Chloride [Moles/Vol] 110 mmol/L High 98-107 [facility] Comment on above: Performed By: #### Naun AB103, LAB17, [id number] ####Staff Field Engineer: LYDIA LION ([id number])[facility] ([facility])[address] [place] [address] [place] CO2 [Moles/Vol] 23 mmol/L Normal 23-31 [facility] Comment on above: Performed By: #### L AB103, LAB17, [id number] ####Staff Field Engineer: LYDIA LION ([id number])[facility] ([facility])[address] [place] [address] Creatinine [Mass/Vol] 0.79 mg/dL Normal 0.57-1.11 [facility] Comment on above: Performed By: #### L AB103, LAB17, [id number] ####Staff Field Engineer: LYDIA LION ([id number])JOINT [facility] ([facility])[address] [place] [address] [place] GLOMERULAR FILTRATION RATE ML/MIN/1.73 SQ M.PREDICTED 73.9 mL/min/1.73m*2 Normal >60.0 [facility] Comment on above: Result Comment: Calc ulation based on the Chronic Kidney Disease Epidemiology Collaboration (CKD-EPI) equation refit without adjustment for race Performed By: #### Naun FRITZ, [id number], [id number] ####Staff Field Engineer: LYDIA LION ([id number])[facility])[address] [place] [address] Glucose [Mass/Vol] 89 mg/dL Normal 82-115 [facility] Comment on above: Performed By: #### Naun FRITZ, LAB17, [id number] ####Staff Field Engineer: LYDIA LION ([id number])[facility])[address] [place] [address] Potassium [Moles/Vol] 3.3 mmol/L Low 3.5-5.1 [facility] Comment on above: Result Comment: [facility] potassium values may be up to 0.5 mmol/L lower than serum values. Performed By: #### Naun FRITZ, LAB17, [id number] ####Staff Field Engineer: LYDIA LION ([id number])[facility])[address] [place] [address] Protein [Mass/Vol] 5.9 g/dL Low 6.4-8.3 [facility] Comment on above: Performed By: #### Naun FRITZ LAB17, [id number] ####Staff Field Engineer: LYDIA LION ([id number])[facility])[address] [place] [address] Sodium [Moles/Vol] 141 mmol/L Normal 136-145 [facility] Comment on above: Performed By: #### Naun FRITZ, LAB17, [id number] ####Staff Field Engineer: LYDIA LION ([phone])[facility])[address] [place] [address] Urea nitrogen [Mass/Vol] 8 mg/dL Low 9-23 [facility] Comment on above: Performed By: #### Naun FRITZ, LAB17, [id number] ####Staff Field Engineer: LYDIA LION ([phone])[facility])[address] [place] [address] Comprehensive metabolic 1998 panelon 07-21-2024 Albumin [Mass/Vol] 3.2 g/dL Low 3.4 - 4.8 g/dL [facility] ALP [Catalytic activity/Vol] 57 U/L 40 - 150 U/L [facility] ALT [Catalytic activity/Vol] 17 U/L NINF - 30 U/L [facility] Anion gap [Moles/Vol] 8 mmol/L 3 - 13 mmol/L [facility] AST [Catalytic activity/Vol] 15 U/L NINF - 34 U/L [facility] Bilirubin [Mass/Vol] 0.2 mg/dL NINF - 1.2 mg/dL [facility] Calcium [Mass/Vol] 7.6 mg/dL Low 8.8 - 10. 0 mg/dL [facility] Chloride [Moles/Vol] 110 mmol/L High 98 - 10 7 mmol/L [facility] CO2 [Moles/Vol] 23 mmol/L 23 - 31 mmol/L [facility] Creatinine [Mass/Vol] 0.79 mg/dL 0.57 - 1.11 mg/dL [facility] GFR/1.73 sq M.predicted (S/P/Bld) [Vol rate/Area] 73.9 mL/min - PINF [facility] Comment on above: Calculation based on the Chronic Kidney Disease Epidemiology Collaboration (CKD-EPI) equation refit without adjustment for race Glucose [Mass/Vol] 89 mg/dL 82 - 115 mg/dL [facility] Interpretation and review of laboratory results Abnormal [facility] Potassium [Moles/Vol] 3.3 mmol/L Low 3.5 - 5.1 mmol/L [facility] Comment on above: Plasma potassium chandler ues may be up to 0.5 mmol/L lower than serum values. Protein [Mass/Vol] 5.9 g/dL Low 6.4 - 8.3 g/dL [facility] Sodium [Moles/Vol] 141 mmol/L 136 - 145 mmol/L [facility] Urea nitrogen [Mass/Vol] 8 mg/dL Low 9 - 23 mg/dL [facility] Consulton 07-21-2024 Consult Normal [facility] Laboratory - Chemistry and C hemistry - challengeon 07-21-2024 Procalcitonin [Mass/Vol] 2.28 ng/mL High NINF - 0.07 ng/mL [facility] Magnesium [Mass/Vol] 1.7 mg/dL 1.6 - 2 .6 mg/dL [facility] MAGNESIUMon 07-21-2024 Magnesium [Mass/Vol] 1.7 mg/dL Normal 1.6-2.6 [facility] [employer] [facility] Comment on above: Result Comment: ORDE R COMMENTS:Higher values can be expected in females during menses. Performed By: #### L AB103, LAB17, [id number] ####Staff Field Engineer: LYDIA LION ([id number])[facility])[address] [place] [address] Magnesium [Mass/Vol]on 07-21 Interpretation and review of laboratory results Normal [facility] Higher values can be expected in females during menses. [facility] [employer] No Panel Informationon 07-21 [facility] PROCALCITONIN TESTon 025 PROCALCITONIN 2.28 ng/mL High <0.07 [facility] Comment on above: Result Comment: ORDE R COMMENTS:PCT <0.50 = Low risk of severe sepsis and/or septic shock.PCT >2.00 = High risk of severe sepsis and/or septic shock. Performed By: #### L AB103, LAB17, [id number] ####Staff Field Engineer: LYDIA LION ([id number])[facility])[address] [place] [address] Procalcitonin [Mass/Vol]on 0 07-21-2024 Interpretation and review of laboratory results Abnormal [facility] PCT <0.50 = Low risk of severe sepsis and/or septic shock. PCT >2.00 = High risk of severe sepsis and/or septic shock. [facility] Progress Noteon 07-21-2024 Progress Note Normal [facility] Progress Note Normal [facility] C. DIFFICILE BY PCR WITH REF SIGIFREDO TO EIAon 07-20-2024 C. DIFFICILE BY PCR WITH REFLEX TO EIA Normal [facility] Comment on above: Performed By: #### L [id number], [id number], [id number] ####Staff Field Engineer: LYDIA LION ([id number])[facility] ([facility])[address] [place] [address] C. difficile toxin A+B tcdA+ tcdB genes FREDERIC+probe Ql (Stl)on 07-20-2024 C difficile Toxins A+B, EIA Negative Negative [facility] Interpretation and review of laboratory results Normal [facility] Results indicate colonization with C. Difficile. Correlate with clinical data and/or consider other causes for symptoms. Methodology: Enzyme Immunoassay [facility] C. difficile toxin genes FREDERIC +probe Ql (Stl)on 07-20-2024 C. difficile toxin B tcdB gene FREDERIC+probe Ql (Stl) Detected Abnormal Not Detected [facility] Interpretation and review of laboratory results Abnormal [facility] This test screens fo r possible C. difficile infection. Additional testing is required and has been ordered by Laboratory. See C. difficile Toxins EIA for final results. Additional charges apply. Methodology: Real-time PCR [facility] CBC W Auto Differential pane l (Bld)Ordered By: Urvashi Armas on 07-20-2024 Basophils (Bld) [#/Vol] 0 10*3/uL 0.0 - 0.2 10*3/uL [facility] Basophils/100 WBC (Bld) 0.2 % 0.0 - 2.0 % [facility] Eosinophils (Bld) [#/Vol] 0 10*3/uL 0.0 - 0.5 10*3/uL [facility] Eosinophils/100 WBC (Bld) 0.2 % 0.0 - 6.0 % [facility] Erythrocyte distribution width (RBC) [Ratio] 14 % 11.5 - 15.0 % [facility] Hematocrit (Bld) [Volume fraction] 32.5 % Low 35.0 - 47.0 % [facility] Hemoglobin (Bld) [Mass/Vol] 10.6 g/dL Low 11.7 - 16.0 g/dL [facility] Immature granulocytes (Bld) [#/Vol] 0.1 10*3/uL High NINF - 0.1 10*3/uL [facility] Immature granulocytes/100 WBC (Bld) 0.6 % 0.0 - 2.0 % [facility] Interpretation and review of laboratory results Abnormal [facility] Lymphocytes (Bld) [#/Vol] 2.6 10*3/uL 1.0 - 4.3 10*3/uL [facility] Lymphocytes/100 WBC (Bld) 21.3 % 15.0 - 45.0 % [facility] MCH (RBC) [Entitic mass] 28.5 pg 26.0 - 34.0 pg [facility] MCHC (RBC) [Mass/Vol] 32.6 % 30.5 - 36.0 % [facility] MCV (RBC) [Entitic vol] 87.4 fL 77.0 - 99.0 fL [facility] Monocytes (Bld) [#/Vol] 2.6 10*3/uL High 0.0 - 0.9 10*3/uL [facility] Monocytes/100 WBC (Bld) 21.3 % High 5.0 - 13.0 % [facility] Neutrophils (Bld) [#/Vol] 7 10*3/uL 1.8 - 7.5 10*3/uL [facility] Neutrophils/100 WBC (Bld) 56.4 % 38.0 - 82.0 % [facility] Nucleated RBC/100 WBC (Bld) [Ratio] 0 % [facility] Platelet mean volume (Bld) [Entitic vol] 11.7 fL 9.0 - 12.7 fL [facility] Platelets (Bld) [#/Vol] 175 10*3/uL 140 - 440 10*3/uL [facility] RBC (Bld) [#/Vol] 3.72 10*6/uL Low 3.80 - 5.20 10*6/uL [facility] WBC (Bld) [#/Vol] 12.4 10*3/uL High 3.6 - 10.7 10*3/uL [facility] CBC WITH AUTO DIFFERENTIALon 07-20-2024 Basophils (Bld) [#/Vol] 0.0 10*3/uL Normal 0.0-0.2 [facility] Comment on above: Performed By: #### L [id number] ####Staff Field Engineer: LYDIA LION ([id number])[facility] ([address] Basophils/100 WBC (Bld) 0.2 % Normal 0.0-2.0 [facility] Comment on above: Performed By: #### L [id number] ####Staff Field Engineer: LYDIA [id number])[facility])[address] [place] [address] Eosinophils (Bld) [#/Vol] 0.0 10*3/uL Normal 0.0-0.5 [facility] Comment on above: Performed By: #### L [id number] ####Staff Field Engineer: LYDIA LION ([id number])[facility])[address] [place] [address] Eosinophils/100 WBC (Bld) 0.2 % Normal 0.0-6.0 [facility] Comment on above: Performed By: #### L [id number] ####Staff Field Engineer: LYDIA LION ([id number])[address] Erythrocyte distribution width (RBC) [Ratio] 14.0 % Normal 11.5-15.0 [facility] Comment on above: Performed By: #### L [id number] ####Staff Field Engineer: LYDIA LION ([id number])[facility])[address] [place] [address] Hematocrit (Bld) [Volume fraction] 32.5 % Low 35.0-47.0 [facility] Comment on above: Performed By: #### L [id number] ####Staff Field Engineer: LYDIA LION ([id number])[address] Hemoglobin (Bld) [Mass/Vol] 10.6 g/dL Low 11.7-16.0 [facility] Comment on above: Performed By: #### L [id number] ####Staff Field Engineer: LYDIA LION ([id number])[facility])[address] [place] [address] IMMATURE GRANS % 0.6 % Normal 0.0-2.0 [facility] Comment on above: Performed By: #### L [id number] ####Staff Field Engineer: LYDIA LION ([id number])[facility])[address] [place] [address] IMMATURE GRANS ABSOLUTE 0.1 10*3/uL High <0.1 [facility] Comment on above: Performed By: #### L [id number] ####Staff Field Engineer: LYDIA LION ([id number])[facility])[address] [place] [address] Lymphocytes (Bld) [#/Vol] 2.6 10*3/uL Normal 1.0-4.3 [facility] Comment on above: Performed By: #### L [id number] ####Staff Field Engineer: LYDIA LION ([id number])[facility])[address] [place] [address] Lymphocytes/100 WBC (Bld) 21.3 % Normal 15.0-45.0 [facility] Comment on above: Performed By: #### L [id number] ####Staff Field Engineer: LYDIA LION ([phone])[facility])[address] [place] [address] MCH (RBC) [Entitic mass] 28.5 pg Normal 26.0-34.0 [facility] Comment on above: Performed By: #### L [id number] ####Staff Field Engineer: LYDIA LION ([id number])[facility])[address] [place] [address] MCHC 32.6 % Normal 30.5-36.0 [facility] Comment on above: Performed By: #### L [id number] ####Staff Field Engineer: LYDIA LION ([id number])[facility])[address] [place] [address] MCV (RBC) [Entitic vol] 87.4 fL Normal 77.0-99.0 [facility] Comment on above: Performed By: #### L [id number] ####Staff Field Engineer: LYDIA LION ([id number])[facility])[address] [place] [address] Monocytes (Bld) [#/Vol] 2.6 10*3/uL High 0.0-0.9 [facility] Comment on above: Performed By: #### L [id number] ####Staff Field Engineer: LYDIA LION ([id number])[facility] ([facility])[address] [place] [address] Monocytes/100 WBC (Bld) 21.3 % High 5.0-13.0 [facility] Comment on above: Performed By: #### L [id number] ####Staff Field Engineer: LYDIA LION ([phone])[facility] ([facility])[address] [place] [address] NEUTROPHILS ABSOLUTE 7.0 10*3/uL Normal 1.8-7.5 [facility] Comment on above: Performed By: #### L [id number] ####Staff Field Engineer: LYDIA LION ([id number])[facility])[address] [place] [address] Neutrophils/100 WBC (Bld) 56.4 % Normal 38.0-82.0 [facility] Comment on above: Performed By: #### L [id number] ####Staff Field Engineer: LYDIA LION ([id number])[facility] ([facility])[address] [place] [address] NRBC 0.0 /100 WBCs Normal 0.0-2.0 [facility] Comment on above: Performed By: #### L [id number] ####Staff Field Engineer: LYDIA LION ([id number])[facility] ([facility])[address] [place] [address] Platelet mean volume (Bld) [Entitic vol] 11.7 fL Normal 9.0-12.7 [facility] Comment on above: Performed By: #### L [id number] ####Staff Field Engineer: LYDIA LION ([id number])[facility] ([facility])[address] [place] [address] [place] Platelets (Bld) [#/Vol] 175 10*3/uL Normal 140-440 [facility] Comment on above: Performed By: #### L [id number] ####Staff Field Engineer: LYDIA LION ([id number])[facility])[address] [place] [address] RBC (Bld) [#/Vol] 3.72 10*6/uL Low 3.80-5.20 [facility] Comment on above: Performed By: #### L [id number] ####Staff Field Engineer: LYDIA LION ([id number])[facility])[address] [place] [address] WBC (Bld) [#/Vol] 12.4 10*3/uL High 3.6-10.7 [facility] Comment on above: Performed By: #### L [id number] ####Staff Field Engineer: LYDIA LION ([id number])[facility])[address] [place] [address] COMPREHENSIVE METABOLIC PANE Hank 07-20-2024 Albumin [Mass/Vol] 3.0 g/dL Low 3.4-4.8 [facility] Comment on above: Performed By: #### L AB17, [id number] ####Staff Field Engineer: LYDIA LION ([id number])[facility] ([facility])[address] [place] [address] ALP [Catalytic activity/Vol] 54 U/L Normal 40-150 [facility] Comment on above: Performed By: #### L AB17, [id number] ####Staff Field Engineer: LYDIA LION ([id number])[facility])[address] [place] [address] ALT [Catalytic activity/Vol] 21 U/L Normal <30 [facility] Comment on above: Performed By: #### L AB17, [id number] ####Staff Field Engineer: LYDIA LION ([id number])[facility])[address] [place] [address] Anion gap [Moles/Vol] 7 mmol/L Normal 3-13 [facility] Comment on above: Performed By: #### L AB17, [id number] ####Staff Field Engineer: LYDIA LION ([id number])[facility])[address] [place] [address] AST [Catalytic activity/Vol] 18 U/L Normal <34 [facility] Comment on above: Performed By: #### Naun SAEED, [id number] ####Staff Field Engineer: LYDIA LION ([id number])[facility] ([facility])[address] [place] [address] Bilirubin [Mass/Vol] 0.3 mg/dL Normal <1.2 [facility] Comment on above: Performed By: #### Naun SAEED, [id number] ####Staff Field Engineer: LYDIA LION ([id number])[facility] ([facility])[address] [place] [address] Calcium [Mass/Vol] 7.4 mg/dL Low 8.8-10.0 [facility] Comment on above: Performed By: #### Naun SAEED, [id number] ####Staff Field Engineer: LYDIA LION ([id number])[facility] ([facility])[address] [place] [address] [place] Chloride [Moles/Vol] 112 mmol/L High 98-107 [facility] Comment on above: Performed By: #### Naun SAEED, [id number] ####Staff Field Engineer: LYDIA LION ([id number])[facility] ([facility])[address] [place] [address] [place] CO2 [Moles/Vol] 23 mmol/L Normal 23-31 [facility] Comment on above: Performed By: #### Naun SAEED, [id number] ####Staff Field Engineer: LYDIA LION ([id number])[facility] ([facility])[address] [place] [address] [place] Creatinine [Mass/Vol] 0.79 mg/dL Normal 0.57-1.11 [facility] Comment on above: Performed By: #### Naun SAEED, [id number] ####Staff Field Engineer: LYDIA LION ([phone])[facility] ([facility])[address] [place] [address] [place] GLOMERULAR FILTRATION RATE ML/MIN/1.73 SQ M.PREDICTED 73.9 mL/min/1.73m*2 Normal >60.0 [facility] Comment on above: Result Comment: Calc ulation based on the Chronic Kidney Disease Epidemiology Collaboration (CKD-EPI) equation refit without adjustment for race Performed By: #### Naun SAEED, [id number] ####Staff Field Engineer: LYDIA LION ([phone])[facility] ([facility])[address] [place] [address] Glucose [Mass/Vol] 92 mg/dL Normal 82-115 [facility] Comment on above: Performed By: #### Naun CLEMENTS17, [id number] ####Staff Field Engineer: LYDIA LION ([id number])[facility])[address] [place] [address] Potassium [Moles/Vol] 3.2 mmol/L Low 3.5-5.1 [facility] Comment on above: Result Comment: [facility] potassium values may be up to 0.5 mmol/L lower than serum values. Performed By: #### Naun SAEED, [id number] ####Staff Field Engineer: LYDIA LION ([id number])[facility] ([facility])[address] [place] [address] Protein [Mass/Vol] 5.6 g/dL Low 6.4-8.3 [facility] Comment on above: Performed By: #### Naun CLEMENTS17, [id number] ####Staff Field Engineer: LYDIA LION ([phone])[facility] ([facility])[address] [place] [address] [place] Sodium [Moles/Vol] 142 mmol/L Normal 136-145 [facility] Comment on above: Performed By: #### Naun CLEMENTS17, [id number] ####Staff Field Engineer: LYDIA LION ([id number])[facility])[address] [place] [address] Urea nitrogen [Mass/Vol] 10 mg/dL Normal 9-23 [facility] Comment on above: Performed By: #### Naun AB17, [id number] ####Staff Field Engineer: LYDIA LION ([id number])[facility])[address] [place] [address] Comprehensive metabolic 1998 panelon 07-20-2024 Albumin [Mass/Vol] 3 g/dL Low 3.4 - 4.8 g/dL [facility] ALP [Catalytic activity/Vol] 54 U/L 40 - 150 U/L [facility] ALT [Catalytic activity/Vol] 21 U/L NINF - 30 U/L [facility] Anion gap [Moles/Vol] 7 mmol/L 3 - 13 mmol/L [facility] AST [Catalytic activity/Vol] 18 U/L NINF - 34 U/L [facility] Bilirubin [Mass/Vol] 0.3 mg/dL NINF - 1.2 mg/dL [facility] Calcium [Mass/Vol] 7.4 mg/dL Low 8.8 - 10. 0 mg/dL [facility] Chloride [Moles/Vol] 112 mmol/L High 98 - 10 7 mmol/L [facility] CO2 [Moles/Vol] 23 mmol/L 23 - 31 mmol/L [facility] Creatinine [Mass/Vol] 0.79 mg/dL 0.57 - 1.11 mg/dL [facility] GFR/1.73 sq M.predicted (S/P/Bld) [Vol rate/Area] 73.9 mL/min - PINF [facility] Comment on above: Calculation based on the Chronic Kidney Disease Epidemiology Collaboration (CKD-EPI) equation refit without adjustment for race Glucose [Mass/Vol] 92 mg/dL 82 - 115 mg/dL [facility] Interpretation and review of laboratory results Abnormal [facility] Potassium [Moles/Vol] 3.2 mmol/L Low 3.5 - 5.1 mmol/L [facility] Comment on above: Plasma potassium chandler ues may be up to 0.5 mmol/L lower than serum values. Protein [Mass/Vol] 5.6 g/dL Low 6.4 - 8.3 g/dL [facility] Sodium [Moles/Vol] 142 mmol/L 136 - 145 mmol/L [facility] Urea nitrogen [Mass/Vol] 10 mg/dL 9 - 23 mg/dL [facility] GASTROINTESTINAL PCR PANELon 07-20-2024 GASTROINTESTINAL PCR PANEL Normal [facility] [employer] Comment on above: Performed By: #### L [id number], [id number], [id number] ####Staff Field Engineer: LYDIA LION ([id number])[facility] ([facility])[address] [place] [address] Gastrointestinal pathogens p mignon FREDERIC+probe (Stl)Ordered By: Clay Lam on 07-20-2024 Adenovirus F 40/41 Not detected Not Detected [facility] Astrovirus Not detected Not Detected [facility] Campylobacter Not detected Not Detected [facility] Cryptosporidium Not detected Not Detected [facility] Cyclospora cayetanensis Not detected Not Detected [facility] Entamoeba histolytica Not detected Not Detected [facility] Enterotoxigenic E coli (ETEC) Not detected Not Detected [facility] Giardia lamblia Not detected Not Detected [facility] Interpretation and review of laboratory results Normal [facility] Norovirus GI/GII Not detected Not Detected [facility] Plesiomonas shigelloides Not detected Not Detected [facility] Rotavirus A Not detected Not Detected [facility] Salmonella Not detected Not Detected [facility] Sapovirus Not detected Not Detected [facility] Shiga toxin-producing E coli (STEC) Not detected Not Detected [facility] Shigella/Enteroinvasi ve E coli (EIEC) Not detected Not Detected [facility] Vibrio cholerae Not detected Not Detected [facility] Vibrio species Not detected Not Detected [facility] Yersinia enterocolitica Not detected Not Detected [facility] A positive Norovirus result on the Film Array GI panel should be interpreted in the context of the patient's history and clinical picture. If results are not consistent, result should be confirmed with a Norovirus specific assay. Methodology: Multiplex PCR [facility] LAB ONLY - C DIFF EIAon LAB ONLY - C DIFF EIA Normal [facility] Comment on above: Performed By: #### L [id number], [id number], [id number] ####Staff Field Engineer: LYDIA LION ([id number])[facility] ([facility])[address] [place] [address] Laboratory - Chemistry and C hemistry - challengeon 07-20-2024 Procalcitonin [Mass/Vol] 4.14 ng/mL High NINF - 0.07 ng/mL [facility] PROCALCITONIN TESTon 025 PROCALCITONIN 4.14 ng/mL High <0.07 [facility] Comment on above: Result Comment: BRANDEN Rubio COMMENTS:PCT <0.50 = Low risk of severe sepsis and/or septic shock.PCT >2.00 = High risk of severe sepsis and/or septic shock. Performed By: #### L AB17, [id number] ####Staff Field Engineer: LYDIA LION ([id number])[facility] [place] [address] Procalcitonin [Mass/Vol]on 07-20-2024 Interpretation and review of laboratory results Abnormal [facility] PCT <0.50 = Low risk of severe sepsis and/or septic shock. PCT >2.00 = High risk of severe sepsis and/or septic shock. [facility] Progress Noteon 07-20-2024 Progress Note Normal [facility] [employer] Progress Note Normal [facility] [facility] [employer] CBC W Auto Differential pane l (Bld)Ordered By: Amy Mcneil on 07-19-2024 Basophils (Bld) [#/Vol] 0 10*3/uL 0.0 - 0.2 10*3/uL [facility] [employer] Basophils/100 WBC (Bld) 0.2 % 0.0 - 2.0 % [facility] Eosinophils (Bld) [#/Vol] 0.1 10*3/uL 0.0 - 0.5 10*3/uL [facility] [employer] Eosinophils/100 WBC (Bld) 0.4 % 0.0 - 6.0 % [facility] [employer] Erythrocyte distribution width (RBC) [Ratio] 14.2 % 11.5 - 15.0 % [facility] [employer] Hematocrit (Bld) [Volume fraction] 32.3 % Low 35.0 - 47.0 % [facility] [employer] Hemoglobin (Bld) [Mass/Vol] 10.9 g/dL Low 11.7 - 16.0 g/dL [facility] [employer] Immature granulocytes (Bld) [#/Vol] 0.3 10*3/uL High NINF - 0.1 10*3/uL [facility] [employer] Immature granulocytes/100 WBC (Bld) 1 % 0.0 - 2.0 % [facility] Interpretation and review of laboratory results Abnormal [facility] Lymphocytes (Bld) [#/Vol] 3.5 10*3/uL 1.0 - 4.3 10*3/uL [facility] Lymphocytes/100 WBC (Bld) 13.8 % Low 15.0 - 45.0 % [facility] MCH (RBC) [Entitic mass] 28.8 pg 26.0 - 34.0 pg [facility] MCHC (RBC) [Mass/Vol] 33.7 % 30.5 - 36.0 % [facility] MCV (RBC) [Entitic vol] 85.4 fL 77.0 - 99.0 fL [facility] Monocytes (Bld) [#/Vol] 5.3 10*3/uL High 0.0 - 0.9 10*3/uL [facility] Monocytes/100 WBC (Bld) 20.5 % High 5.0 - 13.0 % [facility] Neutrophils (Bld) [#/Vol] 16.4 10*3/uL High 1.8 - 7.5 10*3/uL [facility] Neutrophils/100 WBC (Bld) 64.1 % 38.0 - 82.0 % [facility] Nucleated RBC/100 WBC (Bld) [Ratio] 0 % [facility] Platelet mean volume (Bld) [Entitic vol] 11.4 fL 9.0 - 12.7 fL [facility] Platelets (Bld) [#/Vol] 175 10*3/uL 140 - 440 10*3/uL [facility] RBC (Bld) [#/Vol] 3.78 10*6/uL Low 3.80 - 5.20 10*6/uL [facility] WBC (Bld) [#/Vol] 25.6 10*3/uL High 3.6 - 10.7 10*3/uL [facility] CBC WITH AUTO DIFFERENTIALon 07-19-2024 Basophils (Bld) [#/Vol] 0.0 10*3/uL Normal 0.0-0.2 [facility] Comment on above: Performed By: #### L [id number] ####Staff Field Engineer: LYDIA LION ([id number])[address] Basophils/100 WBC (Bld) 0.2 % Normal 0.0-2.0 [facility] Comment on above: Performed By: #### L [id number] ####Staff Field Engineer: LYDIA ILON ([id number])[facility])[address] [place] [address] Eosinophils (Bld) [#/Vol] 0.1 10*3/uL Normal 0.0-0.5 [facility] Comment on above: Performed By: #### L [id number] ####Staff Field Engineer: LYDIA LION ([id number])[facility])[address] [place] [address] Eosinophils/100 WBC (Bld) 0.4 % Normal 0.0-6.0 [facility] Comment on above: Performed By: #### L [id number] ####Staff Field Engineer: LYDIA LION ([id number])[address] Erythrocyte distribution width (RBC) [Ratio] 14.2 % Normal 11.5-15.0 [facility] Comment on above: Performed By: #### L [id number] ####Staff Field Engineer: LYDIA LION ([phone])[facility])[address] [place] [address] Hematocrit (Bld) [Volume fraction] 32.3 % Low 35.0-47.0 [facility] Comment on above: Performed By: #### L [id number] ####Staff Field Engineer: LYDIA LION ([id number])[address] Hemoglobin (Bld) [Mass/Vol] 10.9 g/dL Low 11.7-16.0 [facility] Comment on above: Performed By: #### L [id number] ####Staff Field Engineer: LYDIA LION ([id number])[facility])[address] [place] [address] IMMATURE GRANS % 1.0 % Normal 0.0-2.0 [facility] Comment on above: Performed By: #### L [id number] ####Staff Field Engineer: LYDIA LION ([id number])[address] IMMATURE GRANS ABSOLUTE 0.3 10*3/uL High <0.[address] [facility] Comment on above: Performed By: #### L [id number] ####Staff Field Engineer: LYDIA LION ([id number])[facility])[address] [place] [address] Lymphocytes (Bld) [#/Vol] 3.5 10*3/uL Normal 1.0-4.3 [facility] Comment on above: Performed By: #### L [id number] ####Staff Field Engineer: LYDIA LION ([id number])[facility])[address] [place] [address] Lymphocytes/100 WBC (Bld) 13.8 % Low 15.0-45.0 [facility] Comment on above: Performed By: #### L [id number] ####Staff Field Engineer: LYDIA LION ([id number])[facility])[address] [place] [address] MCH (RBC) [Entitic mass] 28.8 pg Normal 26.0-34.0 [facility] Comment on above: Performed By: #### L [id number] ####Staff Field Engineer: LYDIA LION ([id number])[facility])[address] [place] [address] MCHC 33.7 % Normal 30.5-36.0 [facility] Comment on above: Performed By: #### L [id number] ####Staff Field Engineer: LYDIA ILON ([id number])[facility])[address] [place] [address] MCV (RBC) [Entitic vol] 85.4 fL Normal 77.0-99.0 [facility] Comment on above: Performed By: #### L [id number] ####Staff Field Engineer: LYDIA LION ([phone])[facility])[address] [place] [address] Monocytes (Bld) [#/Vol] 5.3 10*3/uL High 0.0-0.9 [facility] Comment on above: Performed By: #### L [id number] ####Staff Field Engineer: LYDIA LION ([id number])[facility])[address] [place] [address] Monocytes/100 WBC (Bld) 20.5 % High 5.0-13.0 [facility] Comment on above: Performed By: #### L [id number] ####Staff Field Engineer: LYDIA LION ([id number])[facility] ([facility])[address] [place] [address] NEUTROPHILS ABSOLUTE 16.4 10*3/uL High 1.8-7.5 [facility] Comment on above: Performed By: #### L [id number] ####Staff Field Engineer: LYDIA LION ([id number])[facility])[address] [place] [address] Neutrophils/100 WBC (Bld) 64.1 % Normal 38.0-82.0 [facility] Comment on above: Performed By: #### L [id number] ####Staff Field Engineer: LYDIA LION ([id number])[facility] ([facility])[address] [place] [address] NRBC 0.0 /100 WBCs Normal 0.0-2.0 [facility] Comment on above: Performed By: #### L [id number] ####Staff Field Engineer: LYDIA LION ([id number])[facility])[address] [place] [address] Platelet mean volume (Bld) [Entitic vol] 11.4 fL Normal 9.0-12.7 [facility] Comment on above: Performed By: #### L [id number] ####Staff Field Engineer: LYDIA LION ([id number])[facility])[address] [place] [address] Platelets (Bld) [#/Vol] 175 10*3/uL Normal 140-440 [facility] Comment on above: Performed By: #### L [id number] ####Staff Field Engineer: LYDIA [id number])[facility] ([facility])[address] [place] [address] RBC (Bld) [#/Vol] 3.78 10*6/uL Low 3.80-5.20 [facility] Comment on above: Performed By: #### L [id number] ####Staff Field Engineer: LYDIA LION ([id number])[facility] ([facility])[address] [place] [address] WBC (Bld) [#/Vol] 25.6 10*3/uL High 3.6-10.7 [facility] Comment on above: Performed By: #### L [id number] ####Staff Field Engineer: LYDIA LION ([id number])[facility])[address] [place] [address] COMPREHENSIVE METABOLIC PANE Hank 07-19-2024 Albumin [Mass/Vol] 3.2 g/dL Low 3.4-4.8 [facility] Comment on above: Performed By: #### L [id number] ####Staff Field Engineer: LYDIA LION ([id number])[facility] ([facility])[address] [place] [address] ALP [Catalytic activity/Vol] 64 U/L Normal 40-150 [facility] Comment on above: Performed By: #### L AB17 ####Staff Field Engineer: LYDIA LION ([id number])[facility])[address] [place] [address] ALT [Catalytic activity/Vol] 35 U/L High <30 [facility] Comment on above: Performed By: #### L AB17 ####Staff Field Engineer: LYDIA LION ([id number])[facility])[address] [place] [address] Anion gap [Moles/Vol] 4 mmol/L Normal 3-13 [facility] Comment on above: Performed By: #### L AB17 ####Staff Field Engineer: LYDIA LION ([id number])[facility] ([facility])[address] [place] [address] AST [Catalytic activity/Vol] 37 U/L High <34 [facility] Comment on above: Performed By: #### L AB17 ####Staff Field Engineer: LYDIA LION ([id number])[facility])[address] [place] [address] Bilirubin [Mass/Vol] 0.4 mg/dL Normal <1.2 [facility] Comment on above: Performed By: #### L AB17 ####Staff Field Engineer: LYDIA LION ([id number])[facility])[address] [place] [address] Calcium [Mass/Vol] 8.1 mg/dL Low 8.8-10.0 [facility] Comment on above: Performed By: #### L AB17 ####Staff Field Engineer: LYDIA LION ([id number])[facility])[address] [place] [address] Chloride [Moles/Vol] 112 mmol/L High 98-107 [facility] Comment on above: Performed By: #### L AB17 ####Staff Field Engineer: LYDIA LION ([id number])[facility] ([facility])[address] [place] [address] CO2 [Moles/Vol] 25 mmol/L Normal 23-31 [facility] Comment on above: Performed By: #### L AB17 ####Staff Field Engineer: LYDIA LION ([id number])[facility])[address] [place] [address] Creatinine [Mass/Vol] 0.88 mg/dL Normal 0.57-1.11 [facility] Comment on above: Performed By: #### L [id number] ####Staff Field Engineer: LYDIA LION ([id number])[facility])[address] [place] [address] GLOMERULAR FILTRATION RATE ML/MIN/1.73 SQ M.PREDICTED 64.9 mL/min/1.73m*2 Normal >60.0 [facility] Comment on above: Result Comment: Calc ulation based on the Chronic Kidney Disease Epidemiology Collaboration (CKD-EPI) equation refit without adjustment for race Performed By: #### L AB17 ####Staff Field Engineer: LYDIA LION ([id number])[facility])[address] [place] [address] Glucose [Mass/Vol] 101 mg/dL Normal 82-115 [facility] Comment on above: Performed By: #### L AB17 ####Staff Field Engineer: LYDIA LION ([id number])[facility])[address] [place] [address] Potassium [Moles/Vol] 3.6 mmol/L Normal 3.5-5.1 [facility] Comment on above: Result Comment: [facility] potassium values may be up to 0.5 mmol/L lower than serum values. Performed By: #### L [id number] ####Staff Field Engineer: LYDIA LION ([phone])[facility])[address] [place] [address] Protein [Mass/Vol] 5.8 g/dL Low 6.4-8.3 [facility] Comment on above: Performed By: #### L [id number] ####Staff Field Engineer: LYDIA LION ([id number])[facility])[address] [place] [address] Sodium [Moles/Vol] 141 mmol/L Normal 136-145 [facility] Comment on above: Performed By: #### L [id number] ####Staff Field Engineer: LYDIA LION ([id number])[facility])[address] [place] [address] Urea nitrogen [Mass/Vol] 17 mg/dL Normal 9-23 [facility] Comment on above: Performed By: #### L [id number] ####Staff Field Engineer: LYDIA LION ([id number])[facility])[address] [place] [address] Comprehensive metabolic 1998 panelon 07-19-2024 Albumin [Mass/Vol] 3.2 g/dL Low 3.4 - 4.8 g/dL [facility] ALP [Catalytic activity/Vol] 64 U/L 40 - 150 U/L [facility] ALT [Catalytic activity/Vol] 35 U/L High [facility] - 30 U/L [facility] Anion gap [Moles/Vol] 4 mmol/L 3 - 13 mmol/L [facility] AST [Catalytic activity/Vol] 37 U/L High [facility] - 34 U/L [facility] Bilirubin [Mass/Vol] 0.4 mg/dL NINF - 1.2 mg/dL [facility] Calcium [Mass/Vol] 8.1 mg/dL Low 8.8 - 10. 0 mg/dL [facility] Chloride [Moles/Vol] 112 mmol/L High 98 - 10 7 mmol/L [facility] CO2 [Moles/Vol] 25 mmol/L 23 - 31 mmol/L [facility] Creatinine [Mass/Vol] 0.88 mg/dL 0.57 - 1.11 mg/dL [facility] GFR/1.73 sq M.predicted (S/P/Bld) [Vol rate/Area] 64.9 mL/min - PINF [facility] Comment on above: Calculation based on the Chronic Kidney Disease Epidemiology Collaboration (CKD-EPI) equation refit without adjustment for race Glucose [Mass/Vol] 101 mg/dL 82 - 115 mg/dL [facility] Interpretation and review of laboratory results Abnormal [facility] Potassium [Moles/Vol] 3.6 mmol/L 3.5 - 5.1 mmol/L [facility] Comment on above: Plasma potassium chandler ues may be up to 0.5 mmol/L lower than serum values. Protein [Mass/Vol] 5.8 g/dL Low 6.4 - 8.3 g/dL [facility] Sodium [Moles/Vol] 141 mmol/L 136 - 145 mmol/L [facility] Urea nitrogen [Mass/Vol] 17 mg/dL 9 - 23 mg/dL [facility] Consulton 07-19-2024 Consult Normal [facility] ED Nursing Noteon 07-19-2024 ED Nursing Note Spoke with family an d informed them that she is going to her room upstairs. Normal [facility] No Panel InformationOrdered By: Cari Hurley on 07-19-2024 Interpretation and review of laboratory results Normal [facility] Legionella pneumophila Ag Not detected Not Detected [facility] Streptococcus pneumoniae Ag Not detected Not Detected [facility] Methodology: Lateral flow enzyme immunoassay This assay is approved for detection of antigens to Streptococcus pneumoniae and Legionella pneumophila serogroup 1; however, other L. pneumophila serogroups may also be detected. [facility] No Panel Informationon 07-19 Extra Tube Hold for add-ons. [facility] Comment on above: Auto resulted. [facility] Progress Noteon 07-19-2024 Progress Note Normal [facility] Progress Note Normal [facility] BLOOD CULTUREon 07-18-2024 Bacteria identified Cx Nom (Bld) Normal [facility] Comment on above: Performed By: #### L [id number] ####Staff Field Engineer: LYDIA LION ([id number])[facility])[address] [place] [address] Bacteria identified Cx Nom (Bld) Normal [facility] Comment on above: Performed By: #### L [id number] ####Staff Field Engineer: LYDIA LION ([id number])[facility] ([facility])[address] [place] [address] C-REACTIVE PROTEINon 025 CRP [Mass/Vol] 28.0 mg/L High <5.0 [facility] Comment on above: Performed By: #### L AB149, LAB17, LAB62, [id number] ####Staff Field Engineer: LYDIA LION ([id number])[address] CBC W Auto Differential pane l (Bld)Ordered By: Anabell Dukes on 07-18-2024 Erythrocyte distribution width (RBC) [Ratio] 13.9 % 11.5 - 15.0 % [facility] Hematocrit (Bld) [Volume fraction] 36.2 % 35.0 - 47.0 % [facility] Hemoglobin (Bld) [Mass/Vol] 12 g/dL 11.7 - 16.0 g/dL [facility] Interpretation and review of laboratory results Abnormal [facility] MCH (RBC) [Entitic mass] 28.6 pg 26.0 - 34.0 pg [facility] MCHC (RBC) [Mass/Vol] 33.1 % 30.5 - 36.0 % [facility] MCV (RBC) [Entitic vol] 86.2 fL 77.0 - 99.0 fL [facility] Platelet mean volume (Bld) [Entitic vol] 11.1 fL 9.0 - 12.7 fL [facility] Platelets (Bld) [#/Vol] 180 10*3/uL 140 - 440 10*3/uL [facility] RBC (Bld) [#/Vol] 4.2 10*6/uL 3.80 - 5.20 10*6/uL [facility] WBC (Bld) [#/Vol] 32.1 10*3/uL Critically high 3.6 - 1 0.7 10*3/uL [facility] CBC WITH AUTO DIFFERENTIALon 07-18-2024 Erythrocyte distribution width (RBC) [Ratio] 13.9 % Normal 11.5-15.0 [facility] Comment on above: Performed By: #### Naun AB322, [id number], [id number] ####Staff Field Engineer: LYDIA LION ([id number])[address] Hematocrit (Bld) [Volume fraction] 36.2 % Normal 35.0-47.0 [facility] Comment on above: Performed By: #### Naun AB322, [id number], [id number] ####Staff Field Engineer: LYDIA [id number])[address] Hemoglobin (Bld) [Mass/Vol] 12.0 g/dL Normal 11.7-16.0 [facility] Comment on above: Performed By: #### Naun AB322, [id number], [id number] ####Staff Field Engineer: LYDIA LION ([id number])[address] MCH (RBC) [Entitic mass] 28.6 pg Normal 26.0-34.0 [facility] Comment on above: Performed By: #### Naun AB322, [id number], [id number] ####Staff Field Engineer: LYDIA [id number])[facility] [place] [address] MCHC 33.1 % Normal 30.5-36.0 [facility] Comment on above: Performed By: #### Naun AB322, [id number], [id number] ####Staff Field Engineer: LYDIA LION ([id number])[facility] ([facility])[address] [place] [address] MCV (RBC) [Entitic vol] 86.2 fL Normal 77.0-99.0 [facility] Comment on above: Performed By: #### Naun AB322, [id number], [id number] ####Staff Field Engineer: LYDIA LION ([id number])[facility] ([facility])[address] [place] [address] Platelet mean volume (Bld) [Entitic vol] 11.1 fL Normal 9.0-12.7 [facility] Comment on above: Performed By: #### Naun AB322, [id number], [id number] ####Staff Field Engineer: LYDIA LION ([id number])[facility] ([facility])[address] [place] [address] Platelets (Bld) [#/Vol] 180 10*3/uL Normal 140-440 [facility] Comment on above: Performed By: #### Naun AB322, [id number], [id number] ####Staff Field Engineer: LYDIA LION ([id number])[facility] ([facility])[address] [place] [address] RBC (Bld) [#/Vol] 4.20 10*6/uL Normal 3.80-5.20 [facility] Comment on above: Performed By: #### Naun AB322, [id number], [id number] ####Staff Field Engineer: LYDIA LION ([id number])[facility])[address] [place] [address] WBC (Bld) [#/Vol] 32.1 10*3/uL Critically high 3.6-10.7 [facility] Comment on above: Performed By: #### L AB322, [id number], [id number] ####Staff Field Engineer: LYDIA LION ([id number])[facility])[address] [place] [address] [place] CKon 07-18-2024 CK [Catalytic activity/Vol] 37 U/L Normal 30-185 [facility] Comment on above: Performed By: #### L AB149, LAB17, LAB62, [id number] ####Staff Field Engineer: LYDIA LION ([id number])[facility])[address] [place] [address] CK [Catalytic activity/Vol]o n 07-18-2024 Interpretation and review of laboratory results Normal [facility] COMPLETE URINALYSISon 2024 BACTERIA (#/HPF) IN URINE Negative Normal Negative [facility] Comment on above: Performed By: #### L AB347 ####Staff Field Engineer: LYDIA LION ([id number])[facility])[address] [place] [address] BILIRUBIN, TOTAL PRESENCE IN URINE Negative Normal Negative [facility] Comment on above: Performed By: #### L AB347 ####Staff Field Engineer: LYDIA LION ([id number])[facility])[address] [place] [address] Clarity (U) Clear Normal Clear [facility] Comment on above: Performed By: #### L AB347 ####Staff Field Engineer: LYDIA LION ([id number])[facility])[address] [place] [address] Color (U) Light Yellow Normal Lt. Yellow [facility] Comment on above: Performed By: #### L AB347 ####Staff Field Engineer: LYDIA LION ([id number])[facility])[address] [place] [address] GLUCOSE (MG/DL) IN URINE Normal Normal Normal (<70) [facility] Comment on above: Performed By: #### L AB347 ####Staff Field Engineer: LYDIA LION ([id number])[facility])[address] [place] [address] HEMOGLOBIN PRESENCE IN URINE 0.06 mg/dL Abnormal Negative [facility] Comment on above: Performed By: #### L AB347 ####Staff Field Engineer: LYDIA LION ([id number])[facility])[address] [place] [address] HYALINE CASTS (#/LPF) IN URINE SEDIMENT BY MICROSCOPY Negative Normal Negative [facility] Comment on above: Performed By: #### L AB347 ####Staff Field Engineer: LYDIA LION ([id number])[facility] ([facility])[address] [place] [address] Ketones Ql (U) Negative Normal Negative [facility] Comment on above: Performed By: #### L AB347 ####Staff Field Engineer: LYDIA LION ([id number])[facility])[address] [place] [address] LEUKOCYTE ESTERASE PRESENCE IN URINE BY TEST STRIP Negative Normal Negative [facility] Comment on above: Performed By: #### L AB347 ####Staff Field Engineer: LYDIA LION ([id number])[address] NITRITE PRESENCE IN URINE Negative Normal Negative [facility] Comment on above: Performed By: #### L AB347 ####Staff Field Engineer: LYDIA LION ([id number])[facility] ([facility])[address] [place] [address] pH (U) 6.0 [pH] Normal 5.0-8.0 [facility] Comment on above: Performed By: #### L AB347 ####Staff Field Engineer: LYDIA LION ([id number])[facility])[address] [place] [address] Protein (U) [Mass/Vol] Negative Normal Negative [facility] Comment on above: Performed By: #### L AB347 ####Staff Field Engineer: LYDIA LION ([id number])[facility])[address] [place] [address] RBC (#/HPF) IN URINE SEDIMENT 0-2 Normal 0-2 [facility] Comment on above: Performed By: #### L AB347 ####Staff Field Engineer: LYDIA LION ([id number])[facility])[address] [place] [address] Specific gravity (U) [Rel density] 1.012 Normal 1.005-1.03 0 [facility] Comment on above: Performed By: #### L AB347 ####Staff Field Engineer: LYDIA LION ([id number])[facility])[address] [place] [address] SQUAMOUS EPITHELIAL CELLS (#/HPF) IN URINE SEDIMENT 0-2 Normal 3-5 [facility] Comment on above: Performed By: #### L AB347 ####Staff Field Engineer: LYDIA LION ([id number])[facility] ([facility])[address] [place] [address] UROBILINOGEN (MG/DL) IN URINE Normal Normal Normal (0-1) [facility] Comment on above: Performed By: #### L AB347 ####Staff Field Engineer: LYDIA LION ([id number])[facility])[address] [place] [address] WBC (LEUKOCYTE) (#/HPF) IN URINE SEDIMENT 0-2 Normal 0-5 [facility] Comment on above: Performed By: #### L [id number] ####Staff Field Engineer: LYDIA LION ([id number])[facility])[address] [place] [address] COMPREHENSIVE METABOLIC PANE Hank 07-18-2024 Albumin [Mass/Vol] 3.8 g/dL Normal 3.4-4.8 [facility] Comment on above: Performed By: #### L AB149, LAB17, LAB62, [id number] ####Staff Field Engineer: LYDIA LION ([id number])[facility])[address] [place] [address] [place] ALP [Catalytic activity/Vol] 79 U/L Normal 40-150 [facility] Comment on above: Performed By: #### L ABAmanda, LAB17, LAB62, [id number] ####Staff Field Engineer: LYDIA LION ([id number])[facility] H[facility])[address] [place] [address] ALT [Catalytic activity/Vol] 44 U/L High <30 [facility] Comment on above: Performed By: #### Naun ABAmanda, LAB17, LAB62, [id number] ####Staff Field Engineer: LYDIA LION ([id number])[facility] ([facility])[address] [place] [address] Anion gap [Moles/Vol] 9 mmol/L Normal 3-13 [facility] Comment on above: Performed By: #### Naun ABAmanda, LAB17, LAB62, [id number] ####Staff Field Engineer: LYDIA LION ([id number])[facility] ([facility])[address] [place] [address] AST [Catalytic activity/Vol] 58 U/L High <34 [facility] Comment on above: Performed By: #### Naun WIGGINS, LAB17, LAB62, [id number] ####Staff Field Engineer: LYDIA LION ([id number])[facility] ([facility])[address] [place] [address] Bilirubin [Mass/Vol] 0.4 mg/dL Normal <1.2 [facility] Comment on above: Performed By: #### Naun ABAmanda, LAB17, LAB62, [id number] ####Staff Field Engineer: LYDIA LION ([id number])[facility] ([facility])[address] [place] [address] Calcium [Mass/Vol] 8.8 mg/dL Normal 8.8-10.0 [facility] Comment on above: Performed By: #### L AB149, LAB17, LAB62, [id number] ####Staff Field Engineer: LYDIA LION ([id number])[facility] ([facility])[address] [place] [address] [place] Chloride [Moles/Vol] 107 mmol/L Normal 98-107 [facility] Comment on above: Performed By: #### Naun ABAmanda, LAB17, LAB62, [id number] ####Staff Field Engineer: LYDIA LION ([id number])[facility])[address] [place] [address] CO2 [Moles/Vol] 25 mmol/L Normal 23-31 [facility] Comment on above: Performed By: #### Naun ABAmanda, LAB17, LAB62, [id number] ####Staff Field Engineer: LYDIA LION ([phone])[facility])[address] [place] [address] Creatinine [Mass/Vol] 1.02 mg/dL Normal 0.57-1.11 [facility] Comment on above: Performed By: #### Naun WIGGINS, LAB17, LAB62, [id number] ####Staff Field Engineer: LYDIA LION ([phone])[facility])[address] [place] [address] GLOMERULAR FILTRATION RATE ML/MIN/1.73 SQ M.PREDICTED 54.4 mL/min/1.73m*2 Low >60.0 [facility] Comment on above: Result Comment: Calc ulation based on the Chronic Kidney Disease Epidemiology Collaboration (CKD-EPI) equation refit without adjustment for race Performed By: #### L FELICIANO, LAB17, LAB62, [id number] ####Staff Field Engineer: LYDIA LION ([id number])[facility] ([facility])[address] [place] [address] Glucose [Mass/Vol] 154 mg/dL High 82-115 [facility] Comment on above: Performed By: #### L ABAmanda, LAB17, LAB62, [id number] ####Staff Field Engineer: LYDIA LION ([id number])[facility])[address] [place] [address] Potassium [Moles/Vol] 4.0 mmol/L Normal 3.5-5.1 [facility] Comment on above: Result Comment: Plas ma potassium values may be up to 0.5 mmol/L lower than serum values. Performed By: #### L AB149, LAB17, LAB62, [id number] ####Staff Field Engineer: LYDIA LION ([phone])[facility])[address] [place] [address] Protein [Mass/Vol] 6.5 g/dL Normal 6.4-8.3 [facility] Comment on above: Performed By: #### L AB149, LAB17, LAB62, [id number] ####Staff Field Engineer: LYDIA LION ([id number])[facility])[address] [place] [address] Sodium [Moles/Vol] 141 mmol/L Normal 136-145 [facility] Comment on above: Performed By: #### L AB149, LAB17, LAB62, [id number] ####Staff Field Engineer: LYDIA LION ([id number])[facility])[address] [place] [address] Urea nitrogen [Mass/Vol] 19 mg/dL Normal 9-23 [facility] Comment on above: Performed By: #### L AB149, LAB17, LAB62, [id number] ####Staff Field Engineer: LYDIA LION ([id number])[facility])[address] [place] [address] CRP [Mass/Vol]on 07-18-2024 Interpretation and review of laboratory results Abnormal [facility] CT CERVICAL SPINE WO IV CONT RASTon 07-18-2024 CT CERVICAL SPINE WO IV CONTRAST Normal [facility] CT Cervical spine WO contras ton 07-18-2024 Mild cervical spondylosis. No fracture or traumatic malalignment. Report Dictated on Electronically Signed By: Alonso Byrne MD Electronically Signed Date/Time: 07/18/2024 3:34 PM [facility] [place] [email or web address] Patient Name: KATHRYN MCINTOSH : 1940 Exam Date/Time: 07/18/2024 15:15 Procedure: CT CERVICAL SPINE WO IV CONTRAST Ordering Provider: BALLARD DOUGLAS Reason For Exam: fall, fails pakistani EXAMINATION: CT CERVICAL SPINE WO IV CONTRAST CLINICAL HISTORY: fall, fails pakistani. Back pain and weakness COMPARISON: None TECHNIQUE: Thin isotropic axial images were obtained from the skull base to the upper thoracic spine without intravenous contrast. Dose reduction was employed with automated exposure control. FINDINGS: Craniocervical Junction: Normal alignment. Alignment: Anatomic Vertebrae: No acute fracture or traumatic malalignment. No aggressive osseous lesions. Soft Tissues: No acute abnormality. Canal and Foramina: Mild cervical degenerative changes without significant spinal canal stenosis. [facility] Alonso Byrne MD - 07/18/2024 [facility] Name[facility] 1940 [id number] Exam Date/Time: 07/18/2024 15:15 Procedure: CT CERVICAL SPINE WO IV CONTRAST Ordering Provider: BALLARD DOUGLAS Reason For Exam: fall, fails pakistani EXAMINATION: CT CERVICAL SPINE WO IV CONTRAST CLINICAL HISTORY: fall, fails pakistani. Back pain and weakness COMPARISON: None TECHNIQUE: Thin isotropic axial images were obtained from the skull base to the upper thoracic spine without intravenous contrast. Dose reduction was employed with automated exposure control. FINDINGS: Craniocervical Junction: Normal alignment. Alignment: Anatomic Vertebrae: No acute fracture or traumatic malalignment. No aggressive osseous lesions. Soft Tissues: No acute abnormality. Canal and Foramina: Mild cervical degenerative changes without significant spinal canal stenosis. IMPRESSION: Mild cervical spondylosis. No fracture or traumatic malalignment. Report Dictated on Electronically Signed By: Alonso Byrne MD Electronically Signed Date/Time: 07/18/2024 3:34 PM EST [facility] CT HEAD WO IV CONTRASTon CT HEAD WO IV CONTRAST Normal [facility] CT Head WO contraston [address] evidence of an acute intracranial abnormality. Chronic microvascular ischemia Report Dictated on Electronically Signed By: Alonso Byrne MD Electronically Signed Date/Time: 07/18/2024 3:30 PM EST [facility] Patient Name: KATHRYN MCINTOSH : 1940 Exam Date/Time: 07/18/2024 15:15 Procedure: CT HEAD WO IV CONTRAST Ordering Provider: BALLARD DOUGLAS Reason For Exam: fall, headstrike. can't walk EXAMINATION: CT HEAD WO IV CONTRAST HISTORY: fall, headstrike. can't walk - - - - - [id number] - - - - hit head. Weakness TECHNIQUE: CT head without contrast. Dose reduction was employed with automated exposure control. COMPARISON: None. RESULT: Acute change: No evidence of an acute intracranial process. Hemorrhage: No evidence of acute intracranial hemorrhage. Mass Lesion / Mass Effect: No evidence of an intracranial mass, extra-axial fluid collection, or significant localized mass effect. Chronic change: Scattered patchy foci of low attenuation are present within supratentorial white matter which is a nonspecific finding but likely represents mild microvascular ischemia. Parenchyma: There is no significant volume loss. The brain parenchyma is otherwise within normal limits for age. Ventricles: Normal caliber and morphology. Other: Atherosclerotic calcifications of the carotid siphons. Sports Commentator (topogram) images: No additional findings. [facility] Alonso Byrne MD - 07/18/2024 Patient Name: KATHRYN TAMEZ : 1940 Exam Date/Time: 07/18/2024 15:15 Procedure: CT HEAD WO IV CONTRAST Ordering Provider: BALLARD DOUGLAS Reason For Exam: fall, headstrike. can't walk EXAMINATION: CT HEAD WO IV CONTRAST HISTORY: fall, headstrike. can't walk - - - - - [id number] - - - - hit head. Weakness TECHNIQUE: CT head without contrast. Dose reduction was employed with automated exposure control. COMPARISON: None. RESULT: Acute change: No evidence of an acute intracranial process. Hemorrhage: No evidence of acute intracranial hemorrhage. Mass Lesion / Mass Effect: No evidence of an intracranial mass, extra-axial fluid collection, or significant localized mass effect. Chronic change: Scattered patchy foci of low attenuation are present within supratentorial white matter which is a nonspecific finding but likely represents mild microvascular ischemia. Parenchyma: There is no significant volume loss. The brain parenchyma is otherwise within normal limits for age. Ventricles: Normal caliber and morphology. Other: Atherosclerotic calcifications of the carotid siphons. Sports Commentator (topogram) images: No additional findings. IMPRESSION: No CT evidence of an acute intracranial abnormality. Chronic microvascular ischemia Report Dictated on Electronically Signed By: Alonso Byrne MD Electronically Signed Date/Time: 07/18/2024 3:[address] [facility] [address] Head WO contrastOrdered B y: Alonso Byrne on 07-18-2024 [employer] Work Phone: CT LUMBAR SPINE WO IV CONTRA STon 07-18-2024 CT LUMBAR SPINE WO IV CONTRAST Normal [employer] [facility] CT Lumbar spine WO contrasto n 07-18-2024 Mild lumbar spondylo sis. No acute osseous abnormalities in the thoracic or lumbar spine. Report Dictated on Electronically Signed By: Alonso Byrne MD Electronically Signed Date/Time: 07/18/2024 3:45 PM [employer] [facility] Name[facility]H [facility] 1940 [id number] Exam Date/Time: 07/18/2024 15:15 Procedure: CT LUMBAR SPINE WO IV CONTRAST Ordering Provider: BALLARD DOUGLAS Reason For Exam: low back pain, missed her operation for it. can't walk now EXAMINATION: CT LUMBAR SPINE WO IV CONTRAST CLINICAL HISTORY: low back pain, missed her operation for it. Can't walk now COMPARISON: None TECHNIQUE: Thin axial images were obtained through the lumbar region without intravenous contrast. 2D sagittal and coronal reconstructions were obtained from the axial data. Dose reduction was employed with automated exposure control. FINDINGS: Alignment: There is grade 1 anterolisthesis of L3 on L4 There is scoliotic deformity lumbar spine concave to the right. Vertebrae: No evidence of an acute fracture. No aggressive osseous lesions. There is diffuse osteopenia. Laminectomy defect is noted involving the L4 and L5 levels. Canal and foramina: Mild multilevel spondylosis, without critical spinal canal or neural foraminal stenosis. Visible sacrum and pelvis: Normal. The presacral soft tissues are normal in appearance. Soft tissues: Sacral stimulator is noted extending through the right S3-S4 sacral foramina. The left kidney is surgically absent. [facility] Alonso Byrne MD - 07/18/2024 Patient Name: KATHRYN TAMEZ : 1940 [id number] Exam Date/Time: 07/18/2024 15:15 Procedure: CT LUMBAR SPINE WO IV CONTRAST Ordering Provider: BALLARD DOUGLAS Reason For Exam: low back pain, missed her operation for it. can't walk now EXAMINATION: CT LUMBAR SPINE WO IV CONTRAST CLINICAL HISTORY: low back pain, missed her operation for it. Can't walk now COMPARISON: None TECHNIQUE: Thin axial images were obtained through the lumbar region without intravenous contrast. 2D sagittal and coronal reconstructions were obtained from the axial data. Dose reduction was employed with automated exposure control. FINDINGS: Alignment: There is grade 1 anterolisthesis of L3 on L4 There is scoliotic deformity lumbar spine concave to the right. Vertebrae: No evidence of an acute fracture. No aggressive osseous lesions. There is diffuse osteopenia. Laminectomy defect is noted involving the L4 and L5 levels. Canal and foramina: Mild multilevel spondylosis, without critical spinal canal or neural foraminal stenosis. Visible sacrum and pelvis: Normal. The presacral soft tissues are normal in appearance. Soft tissues: Sacral stimulator is noted extending through the right S3-S4 sacral foramina. The left kidney is surgically absent. IMPRESSION: Mild lumbar spondylosis. No acute osseous abnormalities in the thoracic or lumbar spine. Report Dictated on Electronically Signed By: Alonso Byrne MD Electronically Signed Date/Time: 07/18/2024 3:45 PM EST [facility] CT THORACIC SPINE WO IV CONT RASTon 07-18-2024 CT THORACIC SPINE WO IV CONTRAST Normal [facility] CT Thoracic spine WO contras ton 07-18-2024 Mild thoracic spondy losis. Diffuse osteopenia. Groundglass densities in the bilateral lungs may represent atypical infection. Report Dictated on Electronically Signed By: Alonso Byrne MD Electronically Signed Date/Time: 07/18/2024 3:48 PM [facility] Patient Name: KATHRYN MCINTOSH : 1940 Exam Date/Time: 07/18/2024 15:15 Procedure: CT THORACIC SPINE WO IV CONTRAST Ordering Provider: BALLARD DOUGLAS Reason For Exam: midline spine pain. fracture? CT THORACIC SPINE : CLINICAL INDICATION: midline spine pain. fracture? TECHNIQUE: Transaxial sequence through the thoracic spine. Multiplanar reconstruction imaging was performed. Dose reduction was employed with automated exposure control. COMPARISON: None FINDINGS: Thoracic vertebrae and joints: No fracture, subluxation or other malalignment. Facet joints are unremarkable. No bone lesion identified. Intervertebral disc spaces and spinal canal: No intervertebral disc space narrowing identified. Mild thoracic spondylosis is noted. Soft tissues: Groundglass densities are noted in bilateral lungs.. [facility] Alonso Byrne MD - 07/18/2024 Patient Name: KATHRYN TAMEZ : 1940 Exam Date/Time: 07/18/2024 15:15 Procedure: CT THORACIC SPINE WO IV CONTRAST Ordering Provider: BALLARD DOUGLAS Reason For Exam: midline spine pain. fracture? CT THORACIC SPINE : CLINICAL INDICATION: midline spine pain. fracture? TECHNIQUE: Transaxial sequence through the thoracic spine. Multiplanar reconstruction imaging was performed. Dose reduction was employed with automated exposure control. COMPARISON: None FINDINGS: Thoracic vertebrae and joints: No fracture, subluxation or other malalignment. Facet joints are unremarkable. No bone lesion identified. Intervertebral disc spaces and spinal canal: No intervertebral disc space narrowing identified. Mild thoracic spondylosis is noted. Soft tissues: Groundglass densities are noted in bilateral lungs.. IMPRESSION: Mild thoracic spondylosis. Diffuse osteopenia. Groundglass densities in the bilateral lungs may represent atypical infection. Report Dictated on Electronically Signed By: Alonso Byrne MD Electronically Signed Date/Time: 07/18/2024 3:48 PM [facility] Comprehensive metabolic 1998 panelon 07-18-2024 Albumin [Mass/Vol] 3.8 g/dL 3.4 - 4.8 g/dL [facility] ALP [Catalytic activity/Vol] 79 U/L 40 - 150 U/L [facility] ALT [Catalytic activity/Vol] 44 U/L [facility]L [facility] Anion gap [Moles/Vol] 9 mmol/L 3 - 13 mmol/L [facility] AST [Catalytic activity/Vol] 58 U/L High NINF - 34 U/L [facility] Bilirubin [Mass/Vol] 0.4 mg/dL NINF - 1.2 mg/dL [facility] Calcium [Mass/Vol] 8.8 mg/dL 8.8 - 10. 0 mg/dL [facility] Chloride [Moles/Vol] 107 mmol/L 98 - 10 7 mmol/L [facility] CO2 [Moles/Vol] 25 mmol/L 23 - 31 mmol/L [facility] Creatinine [Mass/Vol] 1.02 mg/dL 0.57 - 1.11 mg/dL [facility] GFR/1.73 sq M.predicted (S/P/Bld) [Vol rate/Area] 54.4 mL/min Low - PINF [facility] Comment on above: Calculation based on the Chronic Kidney Disease Epidemiology Collaboration (CKD-EPI) equation refit without adjustment for race Glucose [Mass/Vol] 154 mg/dL High 82 - 115 mg/dL [facility] Interpretation and review of laboratory results Abnormal [facility] Potassium [Moles/Vol] 4 mmol/L 3.5 - 5.1 mmol/L [facility] Comment on above: Plasma potassium chandler ues may be up to 0.5 mmol/L lower than serum values. Protein [Mass/Vol] 6.5 g/dL 6.4 - 8.3 g/dL [facility] Sodium [Moles/Vol] 141 mmol/L 136 - 145 mmol/L [facility] Urea nitrogen [Mass/Vol] 19 mg/dL 9 - 23 mg/dL [facility] ECG 12-LEADon 07-18-2024 ECG 12-LEAD IMPRESSION: EKG shows NSR, normal axis, normal OK QRS and QTC intervals, no STEMI, no SVT, no LVH. Low voltage. Previous EKG unchanged. Electronically Signed On 07-18-2024 20:17:03 EST by Marcell Ballard [facility] ED Nursing Noteon 07-18-2024 ED Nursing Note [place] to use restroom/bedpan and returned to [facility] Normal [facility] ED Nursing Note [facility] ED Nursing Note Attempted to contact admitting provider about fluid orders via secured chat. No reply at this time. [facility] ED Nursing Note Delay on medication due to RN that was assisting unable to further assist. Will continue to ask Rns for assistance until assistance achieved. Normal [facility] ED Nursing Note Vehicle Mechanic JONATHAN attempt ed to obtain blood cultures and was unsuccessful. Delay on orders due to this. [facility] ED Nursing Note Dinner ordered in compliance with diet order previously placed. [facility] ED Nursing Note Delay on LR 150/HR i nfusion due to pt frequently self occluding her vascular access delaying the initial 250/hr up to [address] [facility] ED Nursing Note Report received from other global account executive. Normal [facility] ED Nursing Note Lab called with WBC 32.1, same reported to Dr. Ballard via secure chat [facility] ED Provider Noteon ED Provider Note [facility] ESR (Bld) [Velocity]on 07-18 Interpretation and review of laboratory results Normal [facility] HIGH SENSITIVITY TROPONIN, S ERIAL BASELINEon 07-18-2024 TROPONIN HS SERIAL BASELINE 18 ng/L High <=14 [facility] Comment on above: Result Comment: In i ndividuals presenting with symptoms > 2h, a baseline troponin <= 5 ng/L suggests acutecardiac injury is unlikely and further serial testing is generally not indicated. Performed By: #### L AB149, LAB17, LAB62, [id number] ####Staff Field Engineer: LYDIA LION ([id number])[address] HIGH SENSITIVITY TROPONIN, S ERIAL, SECOND TESTon 07-18-2024 2H TROPONIN HS (SERIAL 2ND TROPONIN) 17 ng/L High <=14 [facility] Comment on above: Result Comment: 2h t roponin (2nd troponin) samples collected between 1h 40 min and 2h and 20 min of the baseline collection time can be utilized to interpret delta troponins as per [facility] algorithms. Samples collected outside this timeframe need to be interpreted clinically.Rising or falling troponin delta below 2 ng/L as compared to baseline value suggests thatacute cardiac injury is unlikely. Performed By: #### L [id number], [id number] ####Staff Field Engineer: LYDIA LION ([id number])[facility])[address] [place] [address] LACTIC ACID WITH REFLEXon Lactate [Moles/Vol] 0.7 mmol/L Normal 0.5-2.2 [facility] Comment on above: Performed By: #### L [id number] ####Staff Field Engineer: LYDIA LION ([id number])[facility])[address] [place] [address] Lactate [Moles/Vol] 2.9 mmol/L High 0.5-2.2 [facility] Comment on above: Performed By: #### L [id number] ####Staff Field Engineer: LYDIA LION ([id number])[facility] ([facility])[address] [place] [address] LEGIONELLA AND STREPTOCOCCUS URINE ANTIGENon 07-18-2024 LEGIONELLA AND STREPTOCOCCUS URINE ANTIGEN Normal [facility] Comment on above: Performed By: #### L [id number] ####Staff Field Engineer: LYDIA LION ([id number])[facility])[address] [place] [address] Laboratory - Chemistry and C hemistry - challengeon 07-18-2024 Lactate [Moles/Vol] 0.7 mmol/L 0.5 - 2. 2 mmol/L [facility] CRP [Mass/Vol] 28 mg/L High NINF - 5.0 mg/L [facility] Procalcitonin [Mass/Vol] 6.9 ng/mL High NINF - 0.07 ng/mL [facility] Lactate [Moles/Vol] 2.9 mmol/L High 0.5 - 2. 2 mmol/L [facility] CK [Catalytic activity/Vol] 37 U/L 30 - 185 U/L [facility] Laboratory - Hematology and Cell countson 07-18-2024 ESR (Bld) [Velocity] 12 mm/h [facility] Band form neutrophils (Bld) [#/Vol] 1.6 10*3/uL High NINF - 0.0 10*3/uL [facility] Band form neutrophils/100 WBC (Bld) 5 % High NINF - 0 % [facility] Lymphocytes (Bld) [#/Vol] 2.2 10*3/uL 1.0 - 4.3 10*3/uL [facility] Lymphocytes/100 WBC (Bld) 7 % Low 15 - 45 % [facility] Monocytes (Bld) [#/Vol] 4.8 10*3/uL High 0.0 - 0.9 10*3/uL [facility] Monocytes/100 WBC (Bld) 15 % High 5 - 13 % [facility] Neutrophils (Bld) [#/Vol] 25.4 10*3/uL High 1.8 - 7.5 10*3/uL [facility] RBC morphology finding Nom (Bld) Normal [facility] Segmented neutrophils/100 WBC (Bld) 74 % 38 - 82 % [facility] Laboratory - Microbiology an d Antimicrobial susceptibilityon 07-18-2024 FLUAV RNA FREDERIC+probe Ql (Resp) Not detected Not Detected [facility] FLUBV RNA FREDERIC+probe Ql (Resp) Not detected Not Detected [facility] RSV RNA FREDERIC+probe Ql (Resp) Not detected Not Detected [facility] SARS-CoV-2 (COVID-19) RNA FREDERIC+probe Ql (Resp) Not detected Not Detected [facility] MANUAL DIFFERENTIAL (CELLAVI DAVON)on 07-18-2024 BAND NEUTROPHILS TOTAL PER COUNTED LEUKOCYTES BY MANUAL COUNT 5 Normal [facility] Comment on above: Performed By: #### L [id number], [id number], [id number] ####Staff Field Engineer: LYDIA LION ([id number])[address] BANDS (10*3/UL) IN BLOOD-CELLAVISION 1.6 10*3/uL High <=0.0 [facility] Comment on above: Performed By: #### L AB322, [id number], [id number] ####Staff Field Engineer: LYDIA LOIN ([id number])[facility] ([facility])[address] [place] [address] [place] BASOPHILS TOTAL PER COUNTED LEUKOCYTES BY MANUAL COUNT [facility] Comment on above: Performed By: #### L AB322, [id number], [id number] ####Staff Field Engineer: LYDIA LION ([id number])[facility])[address] [place] [address] [place] BLASTS TOTAL PER COUNTED LEUKOCYTES BY MANUAL COUNT [facility] Comment on above: Performed By: #### L AB322, [id number], [id number] ####Staff Field Engineer: LYDIA LION ([id number])[facility])[address] [place] [address] [place] EOSINOPHILS TOTAL PER COUNTED LEUKOCYTES BY MANUAL COUNT [facility] Comment on above: Performed By: #### L AB322, [id number], [id number] ####Staff Field Engineer: LYDIA LION ([id number])[facility] ([facility])[address] [place] [address] [place] LYMPHOCYTES (10*3/UL) IN BLOOD-CELLAVISION 2.2 10*3/uL Normal 1.0-4.3 [facility] Comment on above: Performed By: #### L [id number], [id number], [id number] ####Staff Field Engineer: LYDIA LION ([id number])[facility] ([facility])[address] [place] [address] [place] LYMPHOCYTES TOTAL PER COUNTED LEUKOCYTES BY MANUAL COUNT 7 Normal [facility] Comment on above: Performed By: #### L [id number], [id number], [id number] ####Staff Field Engineer: LYDIA LION ([id number])[facility])[address] [place] [address] [place] LYMPHOCYTES/100 LEUKOCYTES IN BLOOD-CELLAVISION 7 % Low 15-45 [facility] Comment on above: Performed By: #### L AB322, [id number], [id number] ####Staff Field Engineer: LYDIA [id number])[facility] ([facility])[address] [place] [address] [place] METAMYELOCYTES TOTAL PER COUNTED LEUKOCYTES BY MANUAL COUNT [facility] Comment on above: Performed By: #### Naun AB322, [id number], [id number] ####Staff Field Engineer: LYDIA LION ([id number])[facility] ([facility])[address] [place] [address] [place] MONOCYTES (10*3/UL) IN BLOOD-CELLAVISION 4.8 10*3/uL High 0.0-0.9 [facility] Comment on above: Performed By: #### L [id number], [id number], [id number] ####Staff Field Engineer: LYDIA LION ([id number])[facility] ([facility])[address] [place] [address] [place] MONOCYTES TOTAL PER COUNTED LEUKOCYTES BY MANUAL COUNT [address] [facility] Comment on above: Performed By: #### Naun AB322, [id number], [id number] ####Staff Field Engineer: LYDIA LION ([id number])[facility] ([facility])[address] [place] [address] [place] MONOCYTES/100 LEUKOCYTES IN BLOOD-ELLEN 15 % High 5-13 [facility] Comment on above: Performed By: #### L AB322, [id number], [id number] ####Staff Field Engineer: LYDIA LION ([id number])[facility] ([facility])[address] [place] [address] [place] MYELOCYTES COUNTED BY MANUAL COUNT [facility] Comment on above: Performed By: #### L AB322, [id number], [id number] ####Staff Field Engineer: LYDIA LION ([id number])[facility] ([facility])[address] [place] [address] [place] NEUTROPHILS BAND FORM/100 LEUKOCYTES IN BLOOD-CELLAVISI 5 % High <=0 [facility] Comment on above: Performed By: #### L AB322, [id number], [id number] ####Staff Field Engineer: LYDIA LION ([id number])[facility] ([facility])[address] [place] [address] [place] NEUTROPHILS TOTAL PER COUNTED LEUKOCYTES BY MANUAL COUNT 76 Normal [facility] Comment on above: Performed By: #### L AB322, [id number], [id number] ####Staff Field Engineer: LYDIA LION ([id number])[facility] ([facility])[address] [place] [address] PROMYELOCYTES TOTAL PER COUNTED LEUKOCYTES BY MANUAL COUNT Normal [facility] Comment on above: Performed By: #### L AB322, [id number], [id number] ####Staff Field Engineer: LYDIA LION ([id number])[facility] ([facility])[address] [place] [address] RBC MORPHOLOGY IN BLOOD Normal Normal [facility] Comment on above: Performed By: #### Naun AB322, [id number], [id number] ####Staff Field Engineer: LYDIA LION ([id number])[facility] ([facility])[address] [place] [address] SEGMENTED NEUTROPHILS (10*3/UL) IN BLOOD-CELLAVISION 25.4 10*3/uL High 1.8-7.5 [facility] Comment on above: Performed By: #### L AB322, [id number], [id number] ####Staff Field Engineer: LYDIA LION ([id number])[facility] ([facility])[address] [place] [address] [place] SEGMENTED NEUTROPHILS/100 LEUKOCYTES-CE 74 % Normal 38-82 [facility] Comment on above: Performed By: #### L AB322, [id number], [id number] ####Staff Field Engineer: LYDIA LION ([id number])[facility] ([facility])[address] [place] [address] UNCLASSIFIED CELLS TOTAL PER COUNTED LEUKOCYTES BY MANUAL COUNT Normal [facility] Comment on above: Performed By: #### L AB322, [id number], [id number] ####Staff Field Engineer: LYDIA LION ([id number])[facility] ([facility])[address] VARIANT LYMPHOCYTES TOTAL PER COUNTED LEUKOCYTES BY MANUAL COUNT Normal [facility] [employer] Comment on above: Performed By: #### L AB322, [id number], [id number] ####Staff Field Engineer: LYDIA LION ([id number])[facility] ([facility])[address] [place] [address] No Panel Informationon 07-18 Interpretation and review of laboratory results Normal [facility] P [place] 73 degrees [facility] OK Interval 119 ms [facility] QRS [place] 7 degrees [facility] QRSD Interval 81 ms [facility] h QT Interval 377 ms [facility] QTC Interval 431 ms [facility] T Wave [place] 26 degrees [facility] EKG shows NSR, cali l axis, normal [place] QRS and QTC intervals, no STEMI, no SVT, no LVH. Low voltage. Previous EKG unchanged. Electronically Signed On 07-18-2024 20:17:03 EST by Marcell Puente MD - 07/18/2024 IMPRESSION: EKG shows NSR, normal axis, normal [place] QRS and QTC intervals, no STEMI, no SVT, no LVH. Low voltage. Previous EKG unchanged. Electronically Signed On 07-18-2024 20:17:03 EST by Marcell Ballard [facility] 2h Troponin HS (Serial 2nd Troponin) 17 ng/L High NINF - 14 ng/L [facility] Comment on above: 2h troponin (2nd tro ponin) samples collected between 1h 40 min and 2h and 20 min of the baseline collection time can be utilized to interpret delta [facility]onins [facility]. Samples collected outside this timeframe need to be interpreted clinically. Rising or falling troponin delta below 2 ng/L as compared to baseline value suggests that acute cardiac injury is unlikely. Interpretation and review of laboratory results Abnormal [facility] Interpretation and review of laboratory results Abnormal [facility] Atypical Lymphocytes Manual [facility] Bands Manual 5 [facility] Basophils Manual [facility] alth Blasts Manual [facility] Healt h Eosinophils Manual [facility] Interpretation and review of laboratory results Abnormal [facility] Lymphocytes Manual 7 [facility] Metamyelocytes Manual [facility] Monocytes Manual 15 [facility] alth Myelocytes Manual [facility] ealth Neutrophils Manual 76 [facility] Promyelocytes Manual [facility] Unclassified Cells, Manual [facility] Interpretation and review of laboratory results Abnormal [facility] Troponin HS Serial Baseline 18 ng/L High NINF - 14 ng/L [facility] Comment on above: In individuals prese nting with symptoms > 2h, a baseline troponin <= 5 ng/L suggests acute cardiac injury is unlikely and further serial testing is generally not indicated. [facility] Radiology Study observation (narrative) [facility] PROCALCITONIN TESTon 025 PROCALCITONIN 6.90 ng/mL High <0.07 [facility] [employer] Comment on above: Result Comment: ORDE R COMMENTS:PCT <0.50 = Low risk of severe sepsis and/or septic shock.PCT >2.00 = High risk of severe sepsis and/or septic shock. Performed By: #### L [id number], [id number] ####Staff Field Engineer: LYDIA LION ([id number])[address] Procalcitonin [Mass/Vol]on 0 07-18-2024 Interpretation and review of laboratory results Abnormal [facility] PCT <0.50 = Low risk of severe sepsis and/or septic shock. PCT >2.00 = High risk of severe sepsis and/or septic shock. [facility] SARS-COV-2, FLU A/B, AND RSV COMBOon 07-18-2024 SARS-CoV-2 (COVID-19) RNA FREDERIC+probe Ql (Unsp spec) Normal [facility] Comment on above: Performed By: #### L [id number] ####Staff Field Engineer: LYDIA LION ([id number])[address] SARS-CoV-2, Flu A/B, and RSV Comboon 07-18-2024 Interpretation and review of laboratory results Normal [facility] Methodology: real-ti me, RT-PCR [facility] SEDIMENTATION RATE, AUTOMATE Don 07-18-2024 SEDIMENTATION RATE, ERYTHROCYTE 12 mm/hr Normal 0-20 [facility] Comment on above: Performed By: #### L [id number], [id number], [id number] ####Staff Field Engineer: LYDIA LION ([id number])[address] Urinalysis complete panel (U )Ordered By: Danya Jc on 07-18-2024 Bacteria LM.HPF (Urine sed) [#/Area] Negative Negative /HPF [facility] Bilirubin Ql (U) Negative Negative mg/dL [facility] Clarity (U) Clear Clear [facility] Color (U) Light Yellow Lt. Yellow [facility] Epithelial cells.squamous LM.HPF (Urine sed) [#/Area] [facility] [facility] Gl[facility] Ql (U) Normal Normal (<70) mg/dL [facility] Hemoglobin Ql (U) 0.06 mg/dL Abnormal Negative [facility] ealth Hyaline casts Auto (Urine sed) [#/Area] Negative Negative /LPF [facility] Interpretation and review of laboratory results Abnormal [facility] Ketones (U) [Mass/Vol] Negative Negative mg/dL [facility] Leukocyte esterase Test strip Ql (U) Negative Negative [place]/uL [facility] Nitrite Ql (U) Negative Negative [facility] th pH (U) 6.0 [pH] 5.0 - 8.0 pH [facility] Protein (U) [Mass/Vol] Negative Negative mg/dL [facility] RBC LM.HPF (Urine sed) [#/Area] 0-2 [facility] Specific gravity (U) [Rel density] 1.012 1.005 - 1.030 [facility] Urobilinogen (U) [Mass/Vol] Normal Normal (0-1) mg/dL [facility] WBC LM.HPF (Urine sed) [#/Area] 0-2 [facility] Vital signson 07-18-2024 Heart rate 78 /min bpm [facility] XR Chest 2 Viewson Chronic obstructive pulmonary disease without acute abnormality Report Dictated on Electronically Signed By: Giovanni Irby MD Electronically Signed Date/Time: 07/18/2024 6:47 PM [facility] Patient Name: KATHRYN MCINTOSH : 1940 Exam Date/Time: 07/18/2024 18:42 Procedure: XR CHEST 2 VIEWS Ordering Provider: KITCHEN DEEPTHI Reason For Exam: Pneumonia EXAM: XR Chest, 2 Views CLINICAL INDICATION: Pneumonia . Cough TECHNIQUE: Frontal and lateral views of the chest. COMPARISON: 05/07/2021 FINDINGS: Limitations: EKG leads obscure small portions of the chest. There is also rotation to the left. Lungs and pleural spaces: Hyperinflation of the lungs is noted along with accentuated interstitial opacities. Apical pleural thickening is noted on the right. There is no consolidation or atelectasis. Heart: Unremarkable. No cardiomegaly. Mediastinum: Normal mediastinal contour. Bones/joints: Degenerative change of the thoracic spine. No acute fracture. [facility] Giovanni Irby MD - 07/18/2024 [facility] Name[facility] : 1940 [id number] Exam Date/Time: 07/18/2024 18:42 Procedure: XR CHEST 2 VIEWS Ordering Provider: KITCHEN DEEPTHI Reason For Exam: Pneumonia EXAM: XR Chest, 2 Views CLINICAL INDICATION: Pneumonia . Cough TECHNIQUE: Frontal and lateral views of the chest. COMPARISON: 05/07/2021 FINDINGS: Limitations: EKG leads obscure small portions of the chest. There is also rotation to the left. Lungs and pleural spaces: Hyperinflation of the lungs is noted along with accentuated interstitial opacities. Apical pleural thickening is noted on the right. There is no consolidation or atelectasis. Heart: Unremarkable. No cardiomegaly. Mediastinum: Normal mediastinal contour. Bones/joints: Degenerative change of the thoracic spine. No acute fracture. IMPRESSION: Chronic obstructive pulmonary disease without acute abnormality Report Dictated on Electronically Signed By: Giovanni Irby MD Electronically Signed Date/Time: 07/18/2024 6:47 PM EST [facility] [employer] [facility] [employer] [facility] Radiology Study observation (narrative) [facility] [facility] [employer] [facility] XR Chest 2 ViewsOrdered By: Giovanni Irby on 07-18-2024 [employer] Work Phone: CNOVon 07-10-2024 CNOV Office Visit ([facility] ) KATHRYN TAMEZ I ([id number]) 1940 F Date Time Provider Department 07/10/24 9:20 AM VERENICE ROCA During your visit today, we recorded the following information about you: Temperature Pulse Blood pressure Weight 96.8 degrees 69/minute 118/70 54.8 kg Verenice Roca MD 07/10/2024 9:44 AM Signed Visit Date: July 10, 2024 Ms.Marjorie Edith Tamez Date of : 1940 MRN/E #: [id number] Chief Complaint: Patient presents with: Pre-Op Visit History of Present Illness Kathryn Tamez is a 84 year old female. Patient is in for preop clearance for back surgery. She has spinal stenosis with some lumbar radiculopathy. I did review all of her blood work from preop. Reviewed other blood work 2 as well as an echo from 2020 she did have 64% ejection fraction. No complaints except for her back pain. She is a former smoker. Told her to make sure she does not take any aspirin or NSAIDs [id number] for a week prior to her surgery. PAST MEDICAL HISTORY Diagnosis Date Acquired hypothyroidism Acute gastritis Adjustment disorder with depressed mood Allergic rhinitis Alopecia Arthritis left knee replaced 3 times Atrophic vaginitis Basal cell carcinoma of nasolabial groove Chronic pain Chronic pelvic pain in female Constipation COPD (chronic obstructive pulmonary disease) (HCC) Depression Dysuria Epigastric pain Essential hypertension External ear conductive hearing loss Female stress incontinence Fibromyalgia Functional diarrhea Functional disorder of bladder Generalized abdominal pain H/O goiter s/p thyroidectomy Headache Hip pain History of fall History of kidney problems renal cell carcinoma Hyperkalemia Hyperlipidemia Impacted cerumen Incomplete emptying of bladder Incontinence of feces Increased frequency of urination Jaw pain Joint pain Leukocytosis Lumbar back pain Medication monitoring encounter Migraine with aura Mitral valve prolapse Muscle pain Muscle spasms of neck and/or neck Muscle weakness Must strain to pass urine Nausea and vomiting Neck pain Neoplasm of brain (HCC) Nocturia Obesity Osteoporosis Pain in lower limb Pain in wrist Painful urging to urinate Periumbilical pain Primary fibromyalgia syndrome Dr. Clay Primary malignant neoplasm of kidney (HCC) Refractory migraine with aura Restless legs Sleep deprivation Spasm of back muscles Temporomandibular joint disorder Tobacco dependence syndrome Tobacco use quit smoking in 04-25 Urinary incontinence, mixed Urinary tract infectious disease Viral gastroenteritis PAST SURGICAL HISTORY Procedure Laterality Date ANKLE SURGERY HX Right 2013 ankle ARTHRP KNE CONDYLEANDPLATU MEDIALANDLAT COMPARTMENTS Left X3 CHOLECYSTECTOMY COLONOSCOPY 08/05/2018 Dr. Guan (repeat in 10 years) HAND SURGERY HX Right 04/2022 KIDNEY SURGERY HX Left 2003 Removed- renal cell CA LEG SURGERY HX x6 PAST SURGICAL HISTORY OF 06/26/2015 Temporary Implant placed right hip for bladder control PAST SURGICAL HISTORY OF 07/02/2015 Permanent implant placed right hip for bladder control PAST SURGICAL HISTORY OF Left Hip fracture PAST SURGICAL HISTORY OF Left Broken Femur PAST SURGICAL HISTORY OF Right 07/26/2023 rt ring finger release THYROID SURGERY HX 2004 partial TOTAL ABDOMINAL HYSTERECT W/WO RMVL TUBE OVARY BSO Social History Tobacco Use Smoking status: Former Current packs/day: 0.00 Types: Cigarettes Start date: 08/18/1958 Quit date: 08/18/2018 Years since quittin.8 Smokeless tobacco: Never Tobacco comments: One pack of cigarettes every 3 weeks Vaping Use Vaping status: Never Used Substance Use Topics Alcohol use: No Comment: Rarely Drug use: No Family History Reviewed Including Cardiac Diseases, Psychiatric Diseases, AND Substance Abuse Problem: Cancer Relation: Father Age of Onset: (Not Specified) Problem: Hypertension Relation: Sister Age of Onset: (Not Specified) Problem: Stroke Relation: Sister Age of Onset: (Not Specified) Problem: Coronary Artery Disease Relation: Sister Age of Onset: (Not Specified) Problem: Diabetes Relation: Sister Age of Onset: (Not Specified) Problem: Leukemia Relation: Sister Age of Onset: (Not Specified) Problem: Colon Cancer Relation: No Family History Age of Onset: (Not Specified) ALLERGIES No Known Allergies Current Outpatient Medications Medication Sig famotidine (PEPCID) 20 mg tablet TAKE ONE TABLET BY MOUTH TWO TIMES A DAY sertraline (ZOLOFT) 100 mg tablet TAKE TWO TABLETS BY MOUTH ONCE DAILY levothyroxine (SYNTHROID) 88 mcg tablet take one tablet by mouth daily hydrOXYzine HCl (ATARAX) 10 mg tablet TAKE ONE TABLET BY MOUTH EVERY DAY AT BEDTIME NEEDED FOR ANXIETY (more content not included)... Normal [facility] 07-04-2024 MIKAELN Telephone (AGFAMPSS) KATHRYN TAMEZ I ([id number]) 1940 F Date Time Provider Department 07/04/24 LEONARDO LYLES [facility] During your visit today, we recorded the following information about you: Leonardo Lyles APRN.[facility] 07/04/2024 12:23 PM Signed Please let the patient know [facility] sent over results of positive urine culture for E. coli. Macrobid twice a day for 5 days has been ordered. Please encourage the patient to stay well-hydrated while taking this. Please ask them to follow-up with ongoing symptoms. Leonardo Lyles APRN.Geraldine Santiago MA 07/04/2024 12:51 PM Signed Mailbox full, unable to leave ms. EZEKIEL Lara [place], MA 07/04/2024 3:05 PM Signed Mailbox full, unable to leave [facility] EZEKIEL Lara Nora, MA 07/07/2024 8:35 AM Signed Mailbox is full and cannot accept messages .EZEIKEL Urias Nora, MA 07/08/2024 8:43 AM Addendum Patient notified Maren Lobato MA Allergies As of Date: 07/04/2024 (No Known Allergies) Date Reviewed: 04/01/2024 Reviewed by: Trent Rossi MA - Fully Assessed Reason for Visit: Results [95] Primary Visit Diagnosis:Urinary tract infection without hematuria, site unspecified [N39.0] Order(s):nitrofurantoin monohydrate and macrocrystal (MACROBID) 100 mg capsuleTake 1 capsule by mouth two times a day for 5 days.Disp: 10 capsuleRfl: 0 Prescriptions as of 07/08/2024 - nitrofurantoin monohydrate and macrocrystal (MACROBID) 100 mg capsule Take 1 capsule by mouth two times a day for 5 days. - famotidine (PEPCID) 20 mg tablet TAKE ONE TABLET BY MOUTH TWO TIMES A DAY - sertraline (ZOLOFT) 100 mg tablet TAKE TWO TABLETS BY MOUTH ONCE DAILY - levothyroxine (SYNTHROID) 88 mcg tablet take one tablet by mouth daily - hydrOXYzine HCl (ATARAX) 10 mg tablet TAKE ONE TABLET BY MOUTH EVERY DAY AT BEDTIME NEEDED FOR ANXIETY - SUMAtriptan (IMITREX) 50 mg tablet Take 1 tablet (50 mg) by mouth as needed (at onset of headache. May repeat after 2 hours.). - colestipol (COLESTID) 1 gram tablet Take 1 tablet by mouth two times a day. - chlorzoxazone (PARAFON FORTE DSC) 500 mg tablet Take 1 tablet by mouth four times a day as needed. - dicyclomine (BENTYL) 10 mg capsule Take 1 capsule by mouth three times daily as needed (for abdominal pain). - denosumab (PROLIA) 60 mg/mL Inject 1 mL subcutaneously once every 6 months. - gabapentin (NEURONTIN) 300 mg capsule Take 300 mg by mouth two times a day. 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] 09/10/2015 Migraines [G43.909] 09/10/2015 Urinary frequency [R35.0] 09/10/2015 06/24/2018 Spinal stenosis of lumbar region with neurogeni*09/24/2015 Atrophy of vagina [N95.2] 01/25/2016 Frequency of urination [R35.0] 01/25/2016 06/24/2018 Fecal incontinence [R15.9] 01/25/2016 06/24/2018 Mixed incontinence [N39.46] 01/25/2016 Urgency of urination [R39.15] 01/25/2016 Stress incontinence in female [N39.3] 01/25/2016 Urge incontinence of urine [N39.41] 01/25/2016 Chronic pain disorder [G89.4] 09/18/2017 Low back pain [M54.50] 09/18/2017 Lumbar radiculopathy [M54.16] 06/20/2018 Myalgia [M79.10] 09/18/2017 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 therapy [Z79.899]09/18/2017 Other chronic pain [G89.29] 07/22/2017 Personal history of nicotine dependence [Z87.89*09/18/2017 Postprocedural state [Z98.890] 06/20/2018 Radiculopathy, lumbar region [M54.16] 09/18/2017 Feeling of incomplete bladder emptying [R39.14] 11/13/2017 Other bursitis of hip, left hip [M70.72] 06/20/2018 Other bursitis of hip, right hip [M70.71] 06/20/2018 Other bursitis of hip, unspecified hip [M70.70] 05/23/2018 Pain in left hip [M25.552] 03/27/2018 Pain in right hip [M25.551] 03/27/2018 Postlaminectomy syndrome, not elsewhere classif*01/24/2018 Radiculopathy, lumbosacral region [M54.17] 05/23/2018 Gastro-esophageal reflux disease without esopha*10/22/2018 Major depressive disorder, single episode, unsp*10/22/2018 Thyrotoxicosis, unspecified without thyrotoxic *10/22/2018 Gastroenteritis and colitis, viral [A08.4] 08/06/2018 Infection due to Norovirus species [A08.11] 08/06/2018 Vitamin D deficiency [E55.9] 08/06/2018 Severe malnutrition (HCC) [E43] 08/06/2018 Osteopenia of multiple sites [M85.89] 12/30/2018 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] 12/30/2018 Adjustment disorder with mixed anxiety and depr*02/02/2020 Abscess of right middle finger [L02.511] 07/13/2022 Preop examination [Z01.818] 07/26/2023 Trigger ring finger of right hand [M65.341] 07/26/2023 Trigger little finger of right hand [M65.351] 07/26/2023 Hypothyroidism [E03.9] 07/26/2023 Prescriptions ordered this (more content not included)... Normal [facility] CBC (HEMOGRAM)on 04-16-2024 Erythrocyte distribution width (RBC) [Ratio] 13.8 % Normal 11.5-15.0 [facility] Comment on above: Performed By: #### L [id number] ####Staff Field Engineer: LYDIA LION ([id number])[address] Hematocrit (Bld) [Volume fraction] 38.7 % Normal 35.0-47.0 [facility] Comment on above: Performed By: #### L [id number] ####Staff Field Engineer: LYDIA LION ([id number])[address] Hemoglobin (Bld) [Mass/Vol] 12.7 g/dL Normal 11.7-16.0 [facility] Comment on above: Performed By: #### L [id number] ####Staff Field Engineer: LYDIA LION ([id number])[address] MCH (RBC) [Entitic mass] 28.4 pg Normal 26.0-34.0 [facility] Comment on above: Performed By: #### L [id number] ####Staff Field Engineer: LYDIA LION ([id number])[address] MCHC 32.8 % Normal 30.5-36.0 [facility] Comment on above: Performed By: #### L [id number] ####Staff Field Engineer: LYDIA LION ([id number])[address] [place] [address] [place] MCV (RBC) [Entitic vol] 86.6 fL Normal 77.0-99.0 [facility] Comment on above: Performed By: #### L [id number] ####Staff Field Engineer: LYDIA LION ([id number])[facility])[address] [place] [address] Platelet mean volume (Bld) [Entitic vol] 11.7 fL Normal 9.0-12.7 [facility] Comment on above: Performed By: #### L [id number] ####Staff Field Engineer: LYDIA LION ([id number])[facility] ([facility])[address] [place] [address] Platelets (Bld) [#/Vol] 218 10*3/uL Normal 140-440 [facility] Comment on above: Performed By: #### L [id number] ####Staff Field Engineer: LYDIA LINO ([id number])[facility] ([facility])[address] [place] [address] RBC (Bld) [#/Vol] 4.47 10*6/uL Normal 3.80-5.20 [facility] Comment on above: Performed By: #### L [id number] ####Staff Field Engineer: LYDIA LION ([id number])[facility] ([facility])[address] [place] [address] WBC (Bld) [#/Vol] 9.3 10*3/uL Normal 3.6-10.7 [facility] Comment on above: Performed By: #### L [id number] ####Staff Field Engineer: LYDIA LION ([id number])[facility])[address] [place] [address] CBC panel Auto (Bld)on 04-16 Erythrocyte distribution width (RBC) [Ratio] 13.8 % 11.5 - 15.0 % [facility] Hematocrit (Bld) [Volume fraction] 38.7 % 35.0 - 47.0 % [facility] Hemoglobin (Bld) [Mass/Vol] 12.7 g/dL 11.7 - 16.0 g/dL [facility] Interpretation and review of laboratory results Normal [facility] MCH (RBC) [Entitic mass] 28.4 pg 26.0 - 34.0 pg [facility] MCHC (RBC) [Mass/Vol] 32.8 % 30.5 - 36.0 % [facility] MCV (RBC) [Entitic vol] 86.6 fL 77.0 - 99.0 fL [facility] Platelet mean volume (Bld) [Entitic vol] 11.7 fL 9.0 - 12.7 fL [facility] Platelets (Bld) [#/Vol] 218 10*3/uL 140 - 440 10*3/uL [facility] RBC (Bld) [#/Vol] 4.47 10*6/uL 3.80 - 5.20 10*6/uL [facility] WBC (Bld) [#/Vol] 9.3 10*3/uL 3.6 - 10.7 10*3/uL [facility] Laboratory - Coagulationon 1 06-16-2023 PT Coag (Bld) [Time] 11.9 s 9.0 - 1 2.0 s [facility] No Panel Informationon 04-16 Technically successf ul uncomplicated fluoroscopically-guided lumbar puncture for lumbar CT myelogram. EXAMINATION: CT of the lumbar spine with intrathecal contrast (lumbar CT myelogram). EXAM DATE & TIME: 04/16/2024 1:44 PM EST INDICATION: m47.27/m43.16/[id number] ADDITIONAL INFORMATION: 83-year-old female with a history of low back pain presents for lumbar CT myelogram COMPARISON: CT abdomen pelvis dated 06/06/2022 LIMITATIONS: None TECHNIQUE: Thin isotropic axial images were obtained through the lumbar region after the administration of intrathecal contrast as above. Images were reformatted in coronal and sagittal projections using the raw CT data and were interpreted in conjunction with the axial images to render the findings listed below. Before infusion of intravenous contrast, radiology personnel investigated the possibility of an allergic history and any history of reaction to iodinated contrast material. Dose reduction was employed with automated exposure control. FINDINGS: Alignment: 5 nonrib-bearing lumbar vertebral bodies are seen. There is grade 1 anterolisthesis of L3 on L4 and L4 on L5. Vertebrae: No evidence of acute fracture. No aggressive osseous lesions. Vertebral body levels: T12-L1: There is a focal disc protrusion, asymmetric to the left with effacement of the left subarticular zone. This results in mild canal stenosis without cord flattening. No significant foraminal stenosis. L1-L2: No significant canal or foraminal stenosis. L2-L3: There is hypertrophic facet arthropathy and ligamentum flavum hypertrophy which results in mild canal stenosis. There is moderate bilateral foraminal stenosis at this level. L3-L4: No significant canal stenosis. There is mild bilateral foraminal stenosis. L4-L5: No significant canal or foraminal stenosis. L5-S1: No significant canal or foraminal stenosis. Soft tissues: Surgical absence of the left kidney is noted. No soft tissue nodularity within the resection bed. A couple of scattered colonic diverticula are also seen. IMPRESSION: Varying degrees of canal and foraminal stenosis as discussed, most significant at L2-L3. Report Dictated on Electronically Signed By: Ulises Schilling MD Electronically Signed Date/Time: 04/16/2024 10:27 PM EST [facility] RAD[facility] 1940 [id number] Exam Date/Time: 04/16/2024 13:44 Procedure: IR MYELOGRAPHY LUMBOSACRAL SI Ordering Provider: MORRISON RAJIV Reason For Exam: [id number]/m43.16/[id number] EXAMINATION: Fluoroscopically-guided lumbar puncture for lumbar CT myelogram. EXAM DATE & TIME: 04/16/2024 1:44 PM EST INDICATION: m47.27/m43.16/z98.890 ADDITIONAL INFORMATION: 83-year-old female with low back pain presents for fluoroscopically guided lumbar puncture for lumbar CT myelogram COMPARISON: None INFORMED CONSENT: Written informed consent was obtained. The procedure, risks, benefits, and alternatives were discussed. All questions were answered. TIMEOUT: Physician-led timeout was conducted documenting correct patient, procedure, site, fire risk, antibiotics and allergies. COMPLICATIONS: None. ESTIMATED BLOOD LOSS: Less than 10 mL. MEDICATIONS: Antibiotics: None. Contrast dose: Approximately 15 mL of Isovue-M 200 were injected into the thecal sac during the course of the procedure. STERILE TECHNIQUE: All elements of maximal sterile technique were applied: cap, mask, sterile gown, proper hand hygiene including sterile gloves, a large sterile sheet, and hospital-approved cutaneous antisepsis at the site (Betadine solution). ANESTHESIA/SEDATION: Local. FLUOROSCOPY: Fluoroscopy time: 0.5 minutes Fluoroscopy dose: Ka,r = 8.1 mGy Angiographic runs: 0 Fluoroscopic spot images: 0 Fluoroscopic saved images were obtained. These images do NOT add additional exposure to ionizing radiation and were captured electronically from the imaging chain. Dose reduction fluoroscopic and/or angiographic technology was employed. PROCEDURE/TECHNIQUE: The patient was placed in the prone position on the fluoroscopic table. The L3-L4 interspace was localized fluoroscopically and the skin overlying the L3-L4 region was prepped and draped in the usual aseptic fashion. Local anesthesia was achieved with 1% lidocaine solution. The L3-L4 space was then accessed with a 20-gauge spinal needle. A fluoroscopic image documenting appropriate needle position was saved. The inner stylette was withdrawn and contrast was injected into the thecal sac. The needle was removed and a sterile dressing was applied. The patient tolerated the procedure well without immediate complication and was transferred from the interventional suite in stable condition. FINDINGS: A saved fluoroscopic image demonstrates the needle tip projecting over the L3-L4 interspace. There is free passage of the contrast column throughout the thecal sac in the lumbar region. [facility] Ulises Schilling MD - 04/16/2024 [facility] Name: [facility]Z : 1940 [id number] Exam Date/Time: 04/16/2024 13:44 Procedure: IR MYELOGRAPHY LUMBOSACRAL SI Ordering Provider: MORRISON RAJIV Reason For Exam: [id number]/m43.16/[id number] EXAMINATION: Fluoroscopically-guided lumbar puncture for lumbar CT myelogram. EXAM DATE & TIME: 04/16/2024 1:44 PM EST INDICATION: m47.27/m43.16/z98.890 ADDITIONAL INFORMATION: 83-year-old female with low back pain presents for fluoroscopically guided lumbar puncture for lumbar CT myelogram COMPARISON: None INFORMED CONSENT: Written informed consent was obtained. The procedure, risks, benefits, and alternatives were discussed. All questions were answered. TIMEOUT: Physician-led timeout was conducted documenting correct patient, procedure, site, fire risk, antibiotics and allergies. COMPLICATIONS: None. ESTIMATED BLOOD LOSS: Less than 10 mL. MEDICATIONS: Antibiotics: None. Contrast dose: Approximately 15 mL of Isovue-M 200 were injected into the thecal sac during the course of the procedure. STERILE TECHNIQUE: All elements of maximal sterile technique were applied: cap, mask, sterile gown, proper hand hygiene including sterile gloves, a large sterile sheet, and hospital-approved cutaneous antisepsis at the site (Betadine solution). ANESTHESIA/SEDATION: Local. FLUOROSCOPY: Fluoroscopy time: 0.5 minutes Fluoroscopy dose: Ka,r = 8.1 mGy Angiographic runs: 0 Fluoroscopic spot images: 0 Fluoroscopic saved images were obtained. These images do NOT add additional exposure to ionizing radiation and were captured electronically from the imaging chain. Dose reduction fluoroscopic and/or angiographic technology was employed. PROCEDURE/TECHNIQUE: The patient was placed in the prone position on the fluoroscopic table. The L3-L4 interspace was localized fluoroscopically and the skin overlying the L3-L4 region was prepped and draped in the usual aseptic fashion. Local anesthesia was achieved with 1% lidocaine solution. The L3-L4 space was then accessed with a 20-gauge spinal needle. A fluoroscopic image documenting appropriate needle position was saved. The inner stylette was withdrawn and contrast was injected into the thecal sac. The needle was removed and a sterile dressing was applied. The patient tolerated the procedure well without immediate complication and was transferred from the interventional suite in stable condition. FINDINGS: A saved fluoroscopic image demonstrates the needle tip projecting over the L3-L4 interspace. There is free passage of the contrast column throughout the thecal sac in the lumbar region. IMPRESSION: Technically successful uncomplicated fluoroscopically-guided lumbar puncture for lumbar CT myelogram. EXAMINATION: CT of the lumbar spine with intrathecal contrast (lumbar CT myelogram). EXAM DATE & TIME: 04/16/2024 1:44 PM EST INDICATION: m47.27/m43.16/z98.890 ADDITIONAL INFORMATION: 83-year-old female with a history of low back pain presents for lumbar CT myelogram COMPARISON: CT abdomen pelvis dated 06/06/2022 LIMITATIONS: None TECHNIQUE: Thin isotropic axial images were obtained through the lumbar region after the administration of intrathecal contrast as above. Images were reformatted in coronal and sagittal projections using the raw CT data and were interpreted in conjunction with the axial images to render the findings listed below. Before infusion of intravenous contrast, radiology personnel investigated the possibility of an allergic history and any history of reaction to iodinated contrast material. Dose reduction was employed with automated exposure control. FINDINGS: Alignment: 5 nonrib-bearing lumbar vertebral bodies are seen. There is grade 1 anterolisthesis of L3 on L4 and L4 on L5. Vertebrae: No evidence of acute fracture. No aggressive osseous lesions. Vertebral body levels: T12-L1: There is a focal disc protrusion, asymmetric to the left with effacement of the left subarticular zone. This results in mild canal stenosis without cord flattening. No significant foraminal stenosis. L1-L2: No significant canal or foraminal stenosis. L2-L3: There is hypertrophic facet arthropathy and ligamentum flavum hypertrophy which results in mild canal stenosis. There is moderate bilateral foraminal stenosis at this level. L3-L4: No significant canal stenosis. There is mild bilateral foraminal stenosis. L4-L5: No significant canal or foraminal stenosis. L5-S1: No significant canal or foraminal stenosis. Soft tissues: Surgical absence of the left kidney is noted. No soft tissue nodularity within the resection bed. A couple of scattered colonic diverticula are also seen. IMPRESSION: Varying degrees of canal and foraminal stenosis as discussed, most significant at L2-L3. Report Dictated o (more content not included)... [facility] Radiology Study observation (narrative) [facility] Nursing Noteon 04-16-2024 Nursing Note Phase 2 care complet ed. Iv removed. Will dc to home with her son Normal [facility] Nursing Note Normal [facility] PROTHROMBIN TIMEon INR Coag (PPP) [Relative time] 1.1 {INR} Normal 0.9-1.1 [facility] Comment on above: Result Comment: Matthew mmended Anticoagulant Therapy: SEE BELOW----- INR of 2.0 - 3.0 : - Prophylaxis of Venous Thrombosis (high-risk surgery) - Treatment of Venous Thrombosis - Treatment of Pulmonary Embolism (Includes tissue heart valves, Acute Myocardial Infarction to prevent systemic embolism, Valvular Heart Disease, and Atrial Fibrillation)----- INR of 2.5 - 3.5 : - Mechanical Prosthetic Valves (high risk) - If oral anticoagulant therapy is used to prevent Myocardial Infarction Performed By: #### L [id number] ####Staff Field Engineer: LYDIA LION ([id number])[facility] ([facility])[address] [place] [address] PT Coag (PPP) [Time] 11.9 s Normal 9.0-12.0 [facility] Comment on above: Performed By: #### Naun [id number] ####Staff Field Engineer: LYDIA LION ([id number])[facility] ([facility])[address] [place] [address] PT Coag (Bld) [Time]on 04-16 INR Coag (PPP) [Relative time] 1.1 {INR} 0.9 - 1.1 [facility] Comment on above: Recommended Anticoag ulant Therapy: SEE BELOW ----- INR of 2.0 - 3.0 : - Prophylaxis of Venous Thrombosis (high-risk surgery) - Treatment of Venous Thrombosis - Treatment of Pulmonary Embolism (Includes tissue heart valves, Acute Myocardial Infarction to prevent systemic embolism, Valvular Heart Disease, and Atrial Fibrillation) ----- INR of 2.5 - 3.5 : - Mechanical Prosthetic Valves (high risk) - If oral anticoagulant therapy is used to prevent Myocardial Infarction Interpretation and review of laboratory results Normal [facility] Progress Noteon 04-16-2024 Progress Note Normal [facility] [place] [facility] [employer] [facility] [id number] 04-07-[id number] [facility] Kylah 04-07-2024 [facility] KATHRYN TAMEZ I ([id number]) 1940 F Date Time Provider Department 04/07/24 VERENICE ROCA During your visit today, we recorded the following information about you: Meron Borja MA 04/07/2024 8:54 AM Signed ----- Message from Verenice Roca MD sent at 04/05/2024 2:53 PM EDT ----- No acute findings on abd x ray Meron Borja MA 04/07/2024 8:55 AM Signed Called pt and relayed message. Pt verbalized understanding and had no questions or concerns. Allergies As of Date: 04/07/2024 (No Known Allergies) Date Reviewed: 04/01/2024 Reviewed by: Trent Rossi MA - Fully Assessed Reason for Visit: Results [95] Prescriptions as of 04/07/2024 - famotidine (PEPCID) 20 mg tablet Take 1 tablet by mouth two times a day. - levothyroxine (SYNTHROID) 88 mcg tablet take one tablet by mouth daily - hydrOXYzine HCl (ATARAX) 10 mg tablet TAKE ONE TABLET BY MOUTH EVERY DAY AT BEDTIME NEEDED FOR ANXIETY - sertraline (ZOLOFT) 100 mg tablet take two tablets by mouth once daily - SUMAtriptan (IMITREX) 50 mg tablet Take 1 tablet (50 mg) by mouth as needed (at onset of headache. May repeat after 2 hours.). - colestipol (COLESTID) 1 gram tablet Take 1 tablet by mouth two times a day. - chlorzoxazone (PARAFON FORTE DSC) 500 mg tablet Take 1 tablet by mouth four times a day as needed. - dicyclomine (BENTYL) 10 mg capsule Take 1 capsule by mouth three times daily as needed (for abdominal pain). - denosumab (PROLIA) 60 mg/mL Inject 1 mL subcutaneously once every 6 months. - gabapentin (NEURONTIN) 300 mg capsule Take 300 mg by mouth two times a day. Pain MGMT Problem List As Of Date 04/07/2024 Noted Resolved Spinal stenosis, lumbar region, without neuroge*09/10/2015 Anxiety associated with depression [F41.8] 09/10/2015 MVP (mitral valve prolapse) [I34.1] 09/10/2015 07/18/2018 Postsurgical hypothyroidism [E89.0] 09/10/2015 Migraines [G43.909] 09/10/2015 Urinary frequency [R35.0] 09/10/2015 06/24/2018 Spinal stenosis of lumbar region with neurogeni*09/24/2015 Atrophy of vagina [N95.2] 01/25/2016 Frequency of urination [R35.0] 01/25/2016 06/24/2018 Fecal incontinence [R15.9] 01/25/2016 06/24/2018 Mixed incontinence [N39.46] 01/25/2016 Urgency of urination [R39.15] 01/25/2016 Stress incontinence in female [N39.3] 01/25/2016 Urge incontinence of urine [N39.41] 01/25/2016 Chronic pain disorder [G89.4] 09/18/2017 Low back pain [M54.50] 09/18/2017 Lumbar radiculopathy [M54.16] 06/20/2018 Myalgia [M79.10] 09/18/2017 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 therapy [Z79.899]09/18/2017 Other chronic pain [G89.29] 07/22/2017 Personal history of nicotine dependence [Z87.89*09/18/2017 Postprocedural state [Z98.890] 06/20/2018 Radiculopathy, lumbar region [M54.16] 09/18/2017 Feeling of incomplete bladder emptying [R39.14] 11/13/2017 Other bursitis of hip, left hip [M70.72] 06/20/2018 Other bursitis of hip, right hip [M70.71] 06/20/2018 Other bursitis of hip, unspecified hip [M70.70] 05/23/2018 Pain in left hip [M25.552] 03/27/2018 Pain in right hip [M25.551] 03/27/2018 Postlaminectomy syndrome, not elsewhere classif*01/24/2018 Radiculopathy, lumbosacral region [M54.17] 05/23/2018 Gastro-esophageal reflux disease without esopha*10/22/2018 Major depressive disorder, single episode, unsp*10/22/2018 Thyrotoxicosis, unspecified without thyrotoxic *10/22/2018 Gastroenteritis and colitis, viral [A08.4] 08/06/2018 Infection due to Norovirus species [A08.11] 08/06/2018 Vitamin D deficiency [E55.9] 08/06/2018 Severe malnutrition (HCC) [E43] 08/06/2018 Osteopenia of multiple sites [M85.89] 12/30/2018 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] 12/30/2018 Adjustment disorder with mixed anxiety and depr*02/02/2020 Abscess of right middle finger [L02.511] 07/13/2022 Preop examination [Z01.818] 07/26/2023 Trigger ring finger of right hand [M65.341] 07/26/2023 Trigger little finger of right hand [M65.351] 07/26/2023 Hypothyroidism [E03.9] 07/26/2023 Encounter Status:Closed by MERON [facility]JA [facility] Visit (AGFAMP ) KATHRYN TAMEZ I ([id number]) 1940 F Date Time Provider Department 04/01/24 10:00 AM VERENICE ROCA During your visit today, we recorded the following information about you: Temperature Pulse Blood pressure Weight 96.9 degrees 72/minute 120/68 49.4 kg Verenice Roca MD 04/01/2024 12:22 PM Signed Visit Date: April 01, 2024 Ms.Marjorie Edith Terryihsanpedro Date of : 1940 MRN/E #: [id number] Chief Complaint: Patient presents with: Abdominal Pain: 2 solid bowel movements yesterday Gas: Bloating, pain Diarrhea: 3 straight days last week History of Present Illness Kathryn Tamez is a 83 year old female. Has been having some GI symptoms for probably over a year 2. Over the past couple of months has gotten worse. She says get bouts of loose stools and started taking Imodium. She she has increased her Imodium to 4 tablets at a time and takes it most days of the week. Usually she takes it 1 time a day but sometimes 2 or more times a day. He has diarrhea she has some liquid but with chunks of stool in and I told her that it is just loose bowel movements and she did not take Imodium and should not take that much Imodium. In between she seems to get constipated and bloated right now she is bloated last bowel movement was yesterday was a normal bowel movement. Time she takes the Imodium just to prevent her from having a loose bowel movement if she goes somewhere. Explained to her that she can cause more GI problems getting constipated them behind to get in some loose stools. She has a lot of bloating a lot of mild abdominal tenderness throughout. The x-ray of her abdomen. And see what that shows have her stop the Imodium. Have her try align as a probiotic and increasing the fiber in her diet to see if that gets her GI tract regulated. If symptoms get severe go to the ER but no more Imodium. Told her she is overdosing on Imodium and that may be triggering a lot of her problems of bloating and everything. PAST MEDICAL HISTORY Diagnosis Date Acquired hypothyroidism Acute gastritis Adjustment disorder with depressed mood Allergic rhinitis Alopecia Arthritis left knee replaced 3 times Atrophic vaginitis Basal cell carcinoma of nasolabial groove Chronic pain Chronic pelvic pain in female Constipation COPD (chronic obstructive pulmonary disease) (HCC) Depression Dysuria Epigastric pain Essential hypertension External ear conductive hearing loss Female stress incontinence Fibromyalgia Functional diarrhea Functional disorder of bladder Generalized abdominal pain H/O goiter s/p thyroidectomy Headache Hip pain History of fall History of kidney problems renal cell carcinoma Hyperkalemia Hyperlipidemia Impacted cerumen Incomplete emptying of bladder Incontinence of feces Increased frequency of urination Jaw pain Joint pain Leukocytosis Lumbar back pain Medication monitoring encounter Migraine with aura Mitral valve prolapse Muscle pain Muscle spasms of neck and/or neck Muscle weakness Must strain to pass urine Nausea and vomiting Neck pain Neoplasm of brain (HCC) Nocturia Obesity Osteoporosis Pain in lower limb Pain in wrist Painful urging to urinate Periumbilical pain Primary fibromyalgia syndrome Dr. Clay Primary malignant neoplasm of kidney (HCC) Refractory migraine with aura Restless legs Sleep deprivation Spasm of back muscles Temporomandibular joint disorder Tobacco dependence syndrome Tobacco use quit smoking in 04-25 Urinary incontinence, mixed Urinary tract infectious disease Viral gastroenteritis PAST SURGICAL HISTORY Procedure Laterality Date ANKLE SURGERY HX Right 2012 ankle ARTHRP KNE CONDYLEANDPLATU MEDIALANDLAT COMPARTMENTS Left X3 CHOLECYSTECTOMY COLONOSCOPY 08/05/2018 Dr. Guan (repeat in 10 years) HAND SURGERY HX Right 04/2022 KIDNEY SURGERY HX Left 2003 Removed- renal cell CA LEG SURGERY HX x6 PAST SURGICAL HISTORY OF 06/26/2015 Temporary Implant placed right hip for bladder control PAST SURGICAL HISTORY OF 07/02/2015 Permanent implant placed right hip for bladder control PAST SURGICAL HISTORY OF Left Hip fracture PAST SURGICAL HISTORY OF Left Broken Femur PAST SURGICAL HISTORY OF Right 07/26/2023 rt ring finger release THYROID SURGERY HX 2003 partial TOTAL ABDOMINAL HYSTERECT W/WO RMVL TUBE OVARY BSO Social History Tobacco Use Smoking status: Former Current packs/day: 0.00 Types: Cigarettes Start date: 08/18/1958 Quit date: 08/18/2018 Years since quittin.6 Smokeless tobacco: Never Tobacco comments: One pack of cigarettes every 3 weeks Vaping Use Vaping status: Never Used Substance Use Topics Alcohol use: No Comment: Rarely Drug use: No Family History Revi (more content not included)... Normal [facility] XR ACUTE ABD SERIES 2V ABD+C XRon 04-01-2024 XR ACUTE ABD SERIES 2V ABD+CXR * * *Final Report* * * DATE OF EXAM: Apr 01 2024 2:58PM [id number] [id number] - XR ACUTE ABD SERIES 2V ABD+CXR / PROCEDURE REASON: Generalized abdominal pain * * * * Physician Interpretation * * * * CLINICAL: Abdominal pain] TECHNIQUE: AP view of the chest, two views of the abdomen including an upright view. RESULT: The heart is not enlarged. The lungs are free of infiltrate and effusion. There is scattered gas in the large and small bowel. No specific abnormalities demonstrates degenerative change in the lumbar spine. A stimulation device overlies the right iliac bone. No free air is appreciated. IMPRESSION: Nonspecific nonobstructive bowel gas pattern. Contamination Consultant: ABIGAIL Transcribe Date/Time: Apr 04 2024 12:36P Dictated by : RENETTA CASILLAS MD This examination was interpreted and the report reviewed and electronically signed by: RENETTA CASILLAS MD on Apr 04 2024 12:37PM EST [id number] Normal [facility] CNOVon 02-15-2024 CNOV Office Visit (AGHWG1 ) KATHRYN TAMEZ I ([id number]) 1940 F Date Time Provider Department 02/15/24 9:15 AM BHARATI DUMONT JR AGHWG1 During your visit today, we recorded the following information about you: Respiration Weight Height 18/minute 54 kg 1.524 m Bharati Dumont Jr., MD 02/15/2024 9:24 AM Signed 02/15/2024 :1940 Kathryn Tamez HISTORY OF CHIEF COMPLAINT: Kathryn is seeing me as a follow up patient today. She is status post centralization extensor tendons right middle and ring fingers on 08/16/2023. She complains of bilateral hand pain and stiffness. She has pain at the right middle finger MCP joint. She also complains of left middle finger pain at the MCP joint. She denies any numbness or tingling, and otherwise has no complaints. PAST MEDICAL HISTORY No date: Acquired hypothyroidism No date: Acute gastritis No date: Adjustment disorder with depressed mood No date: Allergic rhinitis No date: Alopecia No date: Arthritis Comment: left knee replaced 3 times No date: Atrophic vaginitis No date: Basal cell carcinoma of nasolabial groove No date: Chronic pain No date: Chronic pelvic pain in female No date: Constipation No date: COPD (chronic obstructive pulmonary disease) (HCC) No date: Depression No date: Dysuria No date: Epigastric pain No date: Essential hypertension No date: External ear conductive hearing loss No date: Female stress incontinence No date: Fibromyalgia No date: Functional diarrhea No date: Functional disorder of bladder No date: Generalized abdominal pain No date: H/O goiter Comment: s/p thyroidectomy No date: Headache No date: Hip pain No date: History of fall No date: History of kidney problems Comment: renal cell carcinoma No date: Hyperkalemia No date: Hyperlipidemia No date: Impacted cerumen No date: Incomplete emptying of bladder No date: Incontinence of feces No date: Increased frequency of urination No date: Jaw pain No date: Joint pain No date: Leukocytosis No date: Lumbar back pain No date: Medication monitoring encounter No date: Migraine with aura No date: Mitral valve prolapse No date: Muscle pain No date: Muscle spasms of neck Comment: and/or neck No date: Muscle weakness No date: Must strain to pass urine No date: Nausea and vomiting No date: Neck pain No date: Neoplasm of brain (HCC) No date: Nocturia No date: Obesity No date: Osteoporosis No date: Pain in lower limb No date: Pain in wrist No date: Painful urging to urinate No date: Periumbilical pain No date: Primary fibromyalgia syndrome Comment: Dr. Clay No date: Primary malignant neoplasm of kidney (HCC) No date: Refractory migraine with aura No date: Restless legs No date: Sleep deprivation No date: Spasm of back muscles No date: Temporomandibular joint disorder No date: Tobacco dependence syndrome No date: Tobacco use Comment: quit smoking in 04-25 No date: Urinary incontinence, mixed No date: Urinary tract infectious disease No date: Viral gastroenteritis PAST SURGICAL HISTORY 2013: ANKLE SURGERY HX; Right Comment: ankle No date: ARTHRP KNE CONDYLEANDPLATU MEDIALANDLAT COMPARTMENTS; Left Comment: X3 No date: CHOLECYSTECTOMY 08/05/2018: COLONOSCOPY Comment: Dr. Guan (repeat in 10 years) No date: HAND SURGERY HX; Right Comment: 04/2022 2004: KIDNEY SURGERY HX; Left Comment: Removed- renal cell CA No date: LEG SURGERY HX Comment: x6 06/26/2015: PAST SURGICAL HISTORY OF Comment: Temporary Implant placed right hip for bladder control 07/02/2015: PAST SURGICAL HISTORY OF Comment: Permanent implant placed right hip for bladder control No date: PAST SURGICAL HISTORY OF; Left Comment: Hip fracture No date: PAST SURGICAL HISTORY OF; Left Comment: Broken Femur 07/26/2023: PAST SURGICAL HISTORY OF; Right Comment: rt ring finger release 2004: THYROID SURGERY HX Comment: partial No date: TOTAL ABDOMINAL HYSTERECT W/WO RMVL TUBE OVARY Comment: BSO Social History Tobacco Use Smoking status: Former Current packs/day: 0.00 Types: Cigarettes Start date: 08/18/1958 Quit date: 08/18/2018 Years since quittin.4 Smokeless tobacco: Never Tobacco comments: One pack of cigarettes every 3 weeks Vaping Use Vaping status: Never Used Substance Use Topics Alcohol use: No Comment: Rarely Drug use: No Medications: Current Outpatient Medications Medication Sig Dispense Refill hydrOXYzine HCl (ATARAX) 10 mg tablet TAKE ONE TABLET BY MOUTH EVERY DAY AT BEDTIME NEEDED FOR ANXIETY 90 tablet 0 sertraline (ZOLOFT) 100 mg tablet take two tablets by mouth once daily 180 tablet 0 levothyroxine (SYNTHROID) 88 mcg tablet take one tablet by mouth once daily 90 tablet 0 SUMAtriptan (IMITREX) 50 mg tablet Take 1 tablet (50 mg) by mouth as needed (at o (more content not included)... Normal [facility] Small Joint Arthro/Inj: bila teral long MCPon 02-15-2024 Bharati Dumont Jr., MD 02/15/2024 9:24 AM Small Joint Arthro/Inj: bilateral long MCP Informed Consent [place] Protocol A moment to CARE was completed. SIGN IN Personnel directly involved with the procedure wore the appropriate PPE. Patient/Surrogate Stated/Verified: Patient name, Date of , Relevant allergies and Intended procedure TIME OUT Relevant labs, photos, and/or imaging studies have been reviewed. Correct side/site marked and visible. Medications required for procedure verified. No implant(s) inserted. 02/15/2024 9:23 AM The procedure site was prepped in the usual sterile fashion. Medications (Right): 6 mg betamethasone acetate-betamethasone sodium phosphate 6 mg/mL Medications (Left): 6 mg betamethasone acetate-betamethasone sodium phosphate 6 mg/mL Anesthetics (Right): 1 mL lidocaine (PF) 10 mg/mL (1 %) Anesthetics (Left): 1 mL lidocaine (PF) 10 mg/mL (1 %) Outcome: tolerated well, no immediate complications Post-injection instructions were reviewed with the patient and the patient voiced understanding of these instructions. SIGN OUT All instruments, equipment, possible retained foreign bodies accounted for. [facility] CNOVon 02-01-2024 CNOV Office Visit (UCWSTR ) KATHRYN TAMZE I ([id number]) 1940 F Date Time Provider Department 02/01/24 9:30 AM [facility]YNDON [facility] During your visit today, we recorded the following information about you: Temperature Pulse Respiration Blood pressure 97.2 degrees 66/minute 20/minute 129/73 Weight 54 kg Lyndon Miranda APRN.[employer] 02/01/2024 10:52 AM Signed Subjective Pain (foot) Pertinent negatives include no fever. Kathryn Tamez is a 83 year old female who presents with left ankle injury and left knee pain. She stepped on a rock and rolled her ankle. Since then has had pain and swelling in left ankle and pain in left knee. She has been keeping her ankle elevated which has helped the swelling go down. She rates her pain 7/10. She has not taken any medication for pain. Review of Systems Constitutional: Negative for chills and fever. Musculoskeletal: Positive for joint pain. Negative for falls. Skin: Negative for rash. BP 129/73 Pulse 66 Temp 36.2 ?C (97.2 ?F) Resp 20 Wt 54 kg (119 lb 0.8 oz) SpO2 97% BMI 23.25 kg/m? PAST MEDICAL HISTORY No date: Acquired hypothyroidism No date: Acute gastritis No date: Adjustment disorder with depressed mood No date: Allergic rhinitis No date: Alopecia No date: Arthritis Comment: left knee replaced 3 times No date: Atrophic vaginitis No date: Basal cell carcinoma of nasolabial groove No date: Chronic pain No date: Chronic pelvic pain in female No date: Constipation No date: COPD (chronic obstructive pulmonary disease) ([facility]) No date: Depression No date: Dysuria No date: Epigastric pain No date: Essential hypertension No date: External ear conductive hearing loss No date: Female stress incontinence No date: Fibromyalgia No date: Functional diarrhea No date: Functional disorder of bladder No date: Generalized abdominal pain No date: H/O goiter Comment: s/p thyroidectomy No date: Headache No date: Hip pain No date: History of fall No date: History of kidney problems Comment: renal cell carcinoma No date: Hyperkalemia No date: Hyperlipidemia No date: Impacted cerumen No date: Incomplete emptying of bladder No date: Incontinence of feces No date: Increased frequency of urination No date: Jaw pain No date: Joint pain No date: Leukocytosis No date: Lumbar back pain No date: Medication monitoring encounter No date: Migraine with aura No date: Mitral valve prolapse No date: Muscle pain No date: Muscle spasms of neck Comment: and/or neck No date: Muscle weakness No date: Must strain to pass urine No date: Nausea and vomiting No date: Neck pain No date: Neoplasm of brain (HCC) No date: Nocturia No date: Obesity No date: Osteoporosis No date: Pain in lower limb No date: Pain in wrist No date: Painful urging to urinate No date: Periumbilical pain No date: Primary fibromyalgia syndrome Comment: Dr. Clay No date: Primary malignant neoplasm of kidney (HCC) No date: Refractory migraine with aura No date: Restless legs No date: Sleep deprivation No date: Spasm of back muscles No date: Temporomandibular joint disorder No date: Tobacco dependence syndrome No date: Tobacco use Comment: quit smoking in 04-25 No date: Urinary incontinence, mixed No date: Urinary tract infectious disease No date: Viral gastroenteritis PAST SURGICAL HISTORY 2013: ANKLE SURGERY HX; Right Comment: ankle No date: ARTHRP KNE CONDYLEANDPLATU MEDIALANDLAT COMPARTMENTS; Left Comment: X3 No date: CHOLECYSTECTOMY 08/05/2018: COLONOSCOPY Comment: Dr. Guan (repeat in 10 years) No date: HAND SURGERY HX; Right Comment: 04/2022 2004: KIDNEY SURGERY HX; Left Comment: Removed- renal cell CA No date: LEG SURGERY HX Comment: x6 06/26/2015: PAST SURGICAL HISTORY OF Comment: Temporary Implant placed right hip for bladder control 07/02/2015: PAST SURGICAL HISTORY OF Comment: Permanent implant placed right hip for bladder control No date: PAST SURGICAL HISTORY OF; Left Comment: Hip fracture No date: PAST SURGICAL HISTORY OF; Left Comment: Broken Femur 07/26/2023: PAST SURGICAL HISTORY OF; Right Comment: rt ring finger release 2004: THYROID SURGERY HX Comment: partial No date: TOTAL ABDOMINAL HYSTERECT W/WO RMVL TUBE OVARY Comment: BSO ALLERGIES Patient has no known allergies. MEDICATIONS hydrOXYzine HCl (ATARAX) 10 mg tablet TAKE ONE TABLET BY MOUTH EVERY DAY AT BEDTIME NEEDED FOR ANXIETY sertraline (ZOLOFT) 100 mg tablet take two tablets by mouth once daily levothyroxine (SYNTHROID) 88 mcg tablet take one tablet by mouth once daily SUMAtriptan (IMITREX) 50 mg tablet Take 1 tablet (50 mg) by mouth as needed (at onset of headache. May repeat after 2 hours.). dicyclomine (BENTYL) 10 mg capsule Take 1 capsule by mouth three times daily as needed (for ab (more content not included)... Normal [facility] No Panel Informationon 01-31 Radiology Study observation (narrative) [facility] XR ANKLE 3V AP/LAT/OBL LTon 02-01-2024 XR ANKLE 3V AP/LAT/OBL LT * * *Final Report* * * DATE OF EXAM: Feb 01 2024 10:17AM WOX 5298 - XR ANKLE 3V AP/LAT/OBL LT / PROCEDURE REASON: Left ankle injury, initial encounter * * * * Physician Interpretation * * * * EXAMINATION: XR ANKLE 3V AP/LAT/OBL LT CLINICAL HISTORY: Trauma Technique: XR ANKLE 3V AP/LAT/OBL LT -- LEFT with 3 views on 3 images Comparison: None RESULT: Generalized osteopenia. No acute fracture or dislocation. Mild talonavicular joint space narrowing. Ankle mortise is maintained. IMPRESSION: No acute osseous abnormality Contamination Consultant: ABIGAIL Transcribe Date/Time: Feb 01 2024 10:43A Dictated by : TABITHA TATE MD This examination was interpreted and the report reviewed and electronically signed by: TABITHA TATE MD on Feb 01 2024 10:44AM EST [id number] Normal [facility] XR Ankle - left AP and Later al and obliqueon 02-01-2024 IMPRESSION: No acute osseous abnormality Contamination Consultant: PSCB Transcribe Date/Time: Feb 01 2024 10:43A Dictated by : TABITHA TATE MD This examination was interpreted and the report reviewed and electronically signed by: TABITHA TATE MD on Feb 01 2024 10:44AM EST DIVISION OF RADIOLOGY * * *Final Report* * * DATE OF EXAM: Feb 01 2024 10:17AM WOX 5298 - XR ANKLE 3V AP/LAT/OBL LT / PROCEDURE REASON: Left ankle injury, initial encounter * * * * Physician Interpretation * * * * EXAMINATION: XR ANKLE 3V AP/LAT/OBL LT CLINICAL HISTORY: Trauma Technique: XR ANKLE 3V AP/LAT/OBL LT -- LEFT with 3 views on 3 images Comparison: None RESULT: Generalized osteopenia. No acute fracture or dislocation. Mild talonavicular joint space narrowing. Ankle mortise is maintained. DIVISION OF RADIOLOGY Provider, [facility] - 02/01/2024 * * *Final Report* * * DATE OF EXAM: Feb 01 2024 10:17AM WOX 5298 - XR ANKLE 3V AP/LAT/OBL LT / PROCEDURE REASON: Left ankle injury, initial encounter * * * * Physician Interpretation * * * * EXAMINATION: XR ANKLE 3V AP/LAT/OBL LT CLINICAL HISTORY: Trauma Technique: XR ANKLE 3V AP/LAT/OBL LT -- LEFT with 3 views on 3 images Comparison: None RESULT: Generalized osteopenia. No acute fracture or dislocation. Mild talonavicular joint space narrowing. Ankle mortise is maintained. IMPRESSION IMPRESSION: No acute osseous abnormality Contamination Consultant: PSCB Transcribe Date/Time: Feb 01 2024 10:43A Dictated by : TABITHA TATE MD This examination was interpreted and the report reviewed and electronically signed by: TABITHA TATE MD on Feb 01 2024 10:44AM EST [facility] XR KNEE 4V AP/PA BOTH+LAT/ME R LTon 02-01-2024 XR KNEE 4V AP/PA BOTH+LAT/ИВАН LT * * *Final Report* * * DATE OF EXAM: Feb 01 2024 10:17AM WOX 5202 - XR KNEE 4V AP/PA BOTH+LAT/ИВАН LT / PROCEDURE REASON: Acute pain of left knee * * * * Physician Interpretation * * * * EXAMINATION: XR KNEE 4V AP/PA BOTH+LAT/ИВАН LT PATIENT/TECHNOLOGIST PROVIDED HISTORY: stepped on a rock a few days ago and twisted left ankle and fell pain lateral ankle and lateral side of knee CLINICAL INFORMATION: 83 years old Female with Acute pain of left knee TECHNIQUE: XR KNEE 4V AP/PA BOTH+LAT/ИВАН LT Laterality: LEFT Number of different views (projections): 4 COMPARISON: None. RESULT: Status post constrained LEFT total knee arthroplasty and patellectomy in satisfactory alignment and position. No periprosthetic lucency or fracture. IMPRESSION: LEFT total knee arthroplasty without apparent complication. Contamination Consultant: ABIGAIL Transcribe Date/Time: Feb 01 2024 10:24A Dictated by : NORMAN MONTOYA DO This examination was interpreted and the report reviewed and electronically signed by: NORMAN MONTOYA DO on Feb 01 2024 10:26AM EST [id number] Normal [facility] XR Knee - left 4 Viewson IMPRESSION: LEFT total knee arthroplasty without apparent complication. Contamination Consultant: [employer] Transcribe Date/Time: Feb 01 2024 10:24A Dictated by : NORMAN MONTOYA DO This examination was interpreted and the report reviewed and electronically signed by: NORMAN MONTOYA DO on Feb 01 2024 10:26AM EST DIVISION OF RADIOLOGY * * *Final Report* * * DATE OF EXAM: Feb 01 2024 10:17AM WOX 5202 - XR KNEE 4V AP/PA BOTH+LAT/ИВАН LT / PROCEDURE REASON: Acute pain of left knee * * * * Physician Interpretation * * * * EXAMINATION: XR KNEE 4V AP/PA BOTH+LAT/ИВАН LT PATIENT/TECHNOLOGIST PROVIDED HISTORY: stepped on a rock a few days ago and twisted left ankle and fell pain lateral ankle and lateral side of knee CLINICAL INFORMATION: 83 years old Female with Acute pain of left knee TECHNIQUE: XR KNEE 4V AP/PA BOTH+LAT/ИВАН LT Laterality: LEFT Number of different views (projections): 4 COMPARISON: None. RESULT: Status post constrained LEFT total knee arthroplasty and patellectomy in satisfactory alignment and position. No periprosthetic lucency or fracture. DIVISION OF RADIOLOGY [facility] * * *Final Report* * * DATE OF EXAM: Feb 01 2024 10:17AM WOX 5202 - XR KNEE 4V AP/PA BOTH+LAT/ИВАН LT / PROCEDURE REASON: Acute pain of left knee * * * * Physician Interpretation * * * * EXAMINATION: XR KNEE 4V AP/PA BOTH+LAT/ИВАН LT PATIENT/TECHNOLOGIST PROVIDED HISTORY: stepped on a rock a few days ago and twisted left ankle and fell pain lateral ankle and lateral side of knee CLINICAL INFORMATION: 83 years old Female with Acute pain of left knee TECHNIQUE: XR KNEE 4V AP/PA BOTH+LAT/ИВАН LT Laterality: LEFT Number of different views (projections): 4 COMPARISON: None. RESULT: Status post constrained LEFT total knee arthroplasty and patellectomy in satisfactory alignment and position. No periprosthetic lucency or fracture. IMPRESSION IMPRESSION: LEFT total knee arthroplasty without apparent complication. Contamination Consultant: ABIGAIL Transcribe Date/Time: Feb 01 2024 10:24A Dictated by : NORMAN MONTOYA DO This examination was interpreted and the report reviewed and electronically signed by: NORMAN MONTOYA DO on Feb 01 2024 10:26AM EST [facility] XR Knee - left 4 ViewsOrdere d By: Shabbir Provider on 02-01-2024 [facility] ED PROV NOTEon 01-01-2024 ED PROV NOTE HNO ID: [id number] Author: CLARENCE GONZALEZ APRN.MIKAEL Service: ? Author Type: Nurse Practitioner Type: ED Provider Notes Filed: 01/04/2024 16:39 Note Text: ED Provider Note Patient Name: Kathryn Tamez : 1940 SERVICE DATE: 01/01/24 History Patient presents with: Eye Complaint: Pt complaining of redness and drainage to right eye that started over one week ago Stated is starting in the left; Stated initially thought had something in it so used some eye drops but did not get any better This is an 83 year old female that presents to the ED with right eye redness and drainage. Left eye is also draining now. These symptoms started 1 week ago. She denies pain or vision changes. She does not wear glasses or contacts. She has no other complaints today. PAST MEDICAL HISTORY Diagnosis Date Acquired hypothyroidism Acute gastritis Adjustment disorder with depressed mood Allergic rhinitis Alopecia Arthritis left knee replaced 3 times Atrophic vaginitis Basal cell carcinoma of nasolabial groove Chronic pain Chronic pelvic pain in female Constipation COPD (chronic obstructive pulmonary disease) (HCC) Depression Dysuria Epigastric pain Essential hypertension External ear conductive hearing loss Female stress incontinence Fibromyalgia Functional diarrhea Functional disorder of bladder Generalized abdominal pain H/O goiter s/p thyroidectomy Headache Hip pain History of fall History of kidney problems renal cell carcinoma Hyperkalemia Hyperlipidemia Impacted cerumen Incomplete emptying of bladder Incontinence of feces Increased frequency of urination Jaw pain Joint pain Leukocytosis Lumbar back pain Medication monitoring encounter Migraine with aura Mitral valve prolapse Muscle pain Muscle spasms of neck and/or neck Muscle weakness Must strain to pass urine Nausea and vomiting Neck pain Neoplasm of brain (HCC) Nocturia Obesity Osteoporosis Pain in lower limb Pain in wrist Painful urging to urinate Periumbilical pain Primary fibromyalgia syndrome Dr. Clay Primary malignant neoplasm of kidney (HCC) Refractory migraine with aura Restless legs Sleep deprivation Spasm of back muscles Temporomandibular joint disorder Tobacco dependence syndrome Tobacco use quit smoking in 04-25 Urinary incontinence, mixed Urinary tract infectious disease Viral gastroenteritis PAST SURGICAL HISTORY Procedure Laterality Date ANKLE SURGERY HX Right 2013 ankle ARTHRP KNE CONDYLEANDPLATU MEDIALANDLAT COMPARTMENTS Left X3 CHOLECYSTECTOMY COLONOSCOPY 08/05/2018 Dr. Guan (repeat in 10 years) HAND SURGERY HX Right 04/2022 KIDNEY SURGERY HX Left 2004 Removed- renal cell CA LEG SURGERY HX x6 PAST SURGICAL HISTORY OF 06/26/2015 Temporary Implant placed right hip for bladder control PAST SURGICAL HISTORY OF 07/02/2015 Permanent implant placed right hip for bladder control PAST SURGICAL HISTORY OF Left Hip fracture PAST SURGICAL HISTORY OF Left Broken Femur PAST SURGICAL HISTORY OF Right 07/26/2023 rt ring finger release THYROID SURGERY HX 2004 partial TOTAL ABDOMINAL HYSTERECT W/WO RMVL TUBE OVARY BSO FAMILY HISTORY Problem Relation Age of Onset Cancer Father Hypertension Sister Stroke Sister Coronary Artery Disease Sister Diabetes Sister Leukemia Sister Colon Cancer No Family History Social History Tobacco Use Smoking status: Former Years: 60 Types: Cigarettes Quit date: 08/18/2018 Years since quittin.3 Smokeless tobacco: Never Tobacco comments: One pack of cigarettes every 3 weeks Vaping Use Vaping Use: Never used Substance and Sexual Activity Alcohol use: No Comment: Rarely Drug use: No Sexual activity: Not on file ALLERGIES No Known Allergies Review of Systems Constitutional: Negative. HENT: Negative. Eyes: Positive for discharge and redness. Respiratory: Negative. Cardiovascular: Negative. Musculoskeletal: Negative. Skin: Negative. Neurological: Negative. Psychiatric/Behavioral: Negative. Physical Exam Vitals BP Pulse Temp Temp src Resp SpO2 Weight Height 01/01/24 1133 01/01/24 1133 01/01/24 1133 01/01/24 1133 01/01/24 1133 01/01/24 1133 01/01/24 1131 01/01/24 1131 136/75 75 36.9 ?C (98.4 ?F) Temporal 20 96 % 49.9 kg (110 lb) 1.524 m (5') Physical Exam Vitals and nursing note reviewed. Constitutional: Appearance: Normal appearance. HENT: Head: Normocephalic and atraumatic. Eyes: General: Right eye: Discharge present. Left eye: Discharge present. Extraocular Movements: Extraocular movements intact. Pupils: Pupils are equal, round, and reactive to light. Cardiovascular: Rate and Rhythm: Normal rate. Pulmonary: Effort: Pulmonary effort is normal. Musculoskeletal: General: Normal range of motion. Skin: General: Skin is warm and dry. Capillary Refill: Capil (more content not included)... Normal [facility] CT Cervical Spine WO Contras ton 10-10-2021 Patient Name: KATHRYN MCINTOSH I Computed Tomography ACCESSION EXAM DATE/TIME PROCEDURE ORDERING PROVIDER [id number] 10/10/2021 14:[address] Spine Cervical w/o [id number] -JOSEFA MEZA Contrast CPT code 30151 Reason For Exam (CT Spine Cervical w/o Contrast) midline tenderness, limited rom, no trauma/fall. Report CT CERVICAL SPINE WITHOUT CONTRAST CLINICAL INDICATION: Neck pain. Limited range of motion. Serial axial CT images of the cervical spine were obtained without intravenous contrast. Coronal and sagittal reformatted images were also made available for interpretation. COMPARISON: 05/07/2021 FINDINGS: Cervical vertebral bodies normal height without anterior or posterior listhesis. Degenerative endplate changes at C4-C5, C5-C6 and C6-C7. Moderate disc space narrowing at C5-C6 and C6-C7. Mild bilateral foraminal compromise at C5-C6 bilaterally. Skull base is intact. C1-C2 alignment is within normal limits. Odontoid is intact. Prevertebral soft tissues are within normal limits. Emphysematous changes noted at the lung apices. IMPRESSION: Degenerative disc and endplate changes, primarily at C5-C6 and C6 to. Mild bilateral foraminal compromise at C5-C6 bilaterally. Findings are similar to the prior CT examination. Report Dictated on --- Final --- Dictated: 10/10/2021 3:12 pm Dictating Physician: MD VILLA LAURA Signed Date and Time: 10/10/2021 3:16 pm Signed by: MD VILLA LAURA Transcribed Date and Time: 10/10/2021 3:12 [facility] Roberta Villa MD - 10/10/2021 Patient Name: KATHRYN TAMEZ I Computed Tomography ACCESSION EXAM DATE/TIME PROCEDURE ORDERING PROVIDER [id number] 10/10/2021 14:[address] Spine Cervical w/o [id number] -JOSEFA MEZA Contrast CPT code 43193 Reason For Exam (CT Spine Cervical w/o Contrast) midline tenderness, limited rom, no trauma/fall. Report CT CERVICAL SPINE WITHOUT CONTRAST CLINICAL INDICATION: Neck pain. Limited range of motion. Serial axial CT images of the cervical spine were obtained without intravenous contrast. Coronal and sagittal reformatted images were also made available for interpretation. COMPARISON: 05/07/2021 FINDINGS: Cervical vertebral bodies normal height without anterior or posterior listhesis. Degenerative endplate changes at C4-C5, C5-C6 and C6-C7. Moderate disc space narrowing at C5-C6 and C6-C7. Mild bilateral foraminal compromise at C5-C6 bilaterally. Skull base is intact. C1-C2 alignment is within normal limits. Odontoid is intact. Prevertebral soft tissues are within normal limits. Emphysematous changes noted at the lung apices. IMPRESSION: Degenerative disc and endplate changes, primarily at C5-C6 and C6 to. Mild bilateral foraminal compromise at C5-C6 bilaterally. Findings are similar to the prior CT examination. Report Dictated on --- Final --- Dictated: 10/10/2021 3:12 pm Dictating Physician: MD VILLA LAURA Signed Date and Time: 10/10/2021 3:16 pm Signed by: MD VILLA LAURA Transcribed Date and Time: 10/10/2021 3:12 [facility] Work Phone: Radiology Study observation (narrative) [facility] Work Phone: CT Cervical Spine WO Contras tOrdered By: Roberta Villa on 10-10-2021 [facility] Work Phone: CT Spine Cervical w/o Contra ston 10-10-2021 CT Spine Cervical w/o Contrast Patient Name: KATHRYN TAMEZ I Computed Tomography ACCESSION EXAM DATE/TIME PROCEDURE ORDERING PROVIDER [id number] 10/10/2021 14:[address] Spine Cervical w/o [id number] -JOSEFA MEZA Contrast CPT code 11100 Reason For Exam (CT Spine Cervical w/o Contrast) midline tenderness, limited rom, no trauma/fall. Report CT CERVICAL SPINE WITHOUT CONTRAST CLINICAL INDICATION: Neck pain. Limited range of motion. Serial axial CT images of the cervical spine were obtained without intravenous contrast. Coronal and sagittal reformatted images were also made available for interpretation. COMPARISON: 05/07/2021 FINDINGS: Cervical vertebral bodies normal height without anterior or posterior listhesis. Degenerative endplate changes at C4-C5, C5-C6 and C6-C7. Moderate disc space narrowing at C5-C6 and C6-C7. Mild bilateral foraminal compromise at C5-C6 bilaterally. Skull base is intact. C1-C2 alignment is within normal limits. Odontoid is intact. Prevertebral soft tissues are within normal limits. Emphysematous changes noted at the lung apices. IMPRESSION: Degenerative disc and endplate changes, primarily at C5-C6 and C6 to. Mild bilateral foraminal compromise at C5-C6 bilaterally. Findings are similar to the prior CT examination. Report Dictated on Final Dictated: 10/10/2021 3:12 pm Dictating Physician: MD VILLA LAURA Signed Date and Time: 10/10/2021 3:16 pm Signed by: MD VILLA LAURA Transcribed Date and Time: 10/10/2021 3:12 [facility] ED Provider Noteon ED Provider Note Emergency Department Encounter [facility] DEPT Patient: Kathryn Tamez : 1940 Date of Evaluation: 10/10/2021 ED Provider: Josefa Meza MD I saw the patient as the Clinician in Triage and performed a brief history and physical exam, established acuity, and ordered appropriate tests to develop basic plan of care. Patient will be seen by KELLEY, resident and/or my physician partner who will evaluate the patient. If seen by the KELLEY I will manage the patient in a supervisory role and will be available for co-management and this will serve as my KELLEY Supervisory note and shared attestation. I did perform a substantive portion of the visit including all aspects of the Medical Decision Making. I wore appropriate PPE for the entirety of this encounter. Brief HPI: In brief, Kathryn Tamez is a 81 y.o. female that presents for evaluation of severe neck pain since yesterday. Patient denies fall or trauma. The patient is crying and writhing in pain. No focal neurologic deficits. Ambulates with a steady gait. Focused Physical exam: Limited range of motion secondary to pain. Midline cervical spinal tenderness. Bilateral paraspinous tenderness. NIHSS 0 Plan/MDM: Analgesia and CT imaging of the head and neck. Please see subsequent provider note for further details and disposition Comment: Please note this report has been produced using speech recognition software and may contain errors related to that system including errors in grammar, punctuation, and spelling as well as words and phrases that may be inappropriate. If there are any questions or concerns please feel free to contact the dictating provider for clarification Josefa Meza MD [employer] Josefa Meza MD 10/10/21 7338 [facility] ED Provider Note Emergency Department Encounter [facility] Patient: Kathryn Tamez : 1940 Date of Evaluation: 10/10/2021 ED Supervising Physician: Alonso Hernandez DO I independently examined and evaluated Kathryn Tamez. In brief, Kathryn Tamez is a 81 y.o. female that presents to the emergency department with neck pain that started at rest, no associated trauma. No numbness or weakness in the arms or legs. Complaining of severe pain in the back of her neck bilaterally. Focused exam: Vital signs noted. Well-appearing patient sitting up in bed in a well lit room, normal respiratory pattern without conversational dyspnea or respiratory distress. Is rocking back and forth and appears very uncomfortable. Normal speech and mental status. Neurologically normal. Palpable tightness and spasm in the cervical portion of the trapezius musculature bilaterally. Brief ED course/MDM: CT ordered by resident is negative other than some arthritic changes. Will be safe for discharge once we get her pain under better control. All diagnostic, treatment, and disposition decisions were made by myself in conjunction with the Resident. I also supervised medeiros portions of any procedures performed by the Resident. For all further details of the patient's emergency department visit, please see their documentation. (Please note that portions of this note may have been completed with a voice recognition program. Efforts were made to edit the dictations but occasionally words are mis-transcribed.) Alonso Hernandez DO [employer] Alonso Hernandez DO 10/10/21 1530 [facility] ED Provider Note [facility] EMERGENCY DEPARTMENT ENCOUNTER Pt Name: Kathryn Tamez Birthdate 1940 Date of evaluation: 10/10/2021 Provider: Nallely Fisher DO CHIEF COMPLAINT Chief Complaint Patient presents with ? Neck Pain pt c/o neck pain radiating into head since yesterday. pt denies fall or trauma. HISTORY OF PRESENT ILLNESS (Location/Symptom, Timing/Onset, Context/Setting, Quality, Duration, Modifying Factors, Severity) Note limiting factors. I wore a kn95 mask for the entirety of this encounter. HPI Kathryn Tamez is a 81 y.o. female who presents to the emergency department presenting today with lower posterior headache as well as posterior neck pain that radiates down her shoulders. She states symptoms started yesterday while she was watching TV acutely worsened overnight while she was trying to sleep. She states she has any pain with rotating her neck. Denies any numbness tingling dizziness lightheadedness nausea vomiting chest pain or shortness of breath. Denies any recent falls injuries or traumatic events. States she has not had this before. She does state she is had a history of degenerative disc disease in her neck. She follows an orthopedic doctor for this. However she has never felt symptoms this bad before she has been taking Tylenol for symptomatic relief however it is only provided very minimal relief. Nursing Notes were reviewed. REVIEW OF SYSTEMS (2+ for level 4; 10+ for level 5) Review of Systems Constitutional: Negative for diaphoresis and fever. HENT: Negative for congestion, sinus pressure and sore throat. Eyes: Negative for photophobia and redness. Respiratory: Negative for cough, shortness of breath and wheezing. Cardiovascular: Negative for chest pain, palpitations and leg swelling. Gastrointestinal: Negative for abdominal pain, nausea and vomiting. Genitourinary: Negative for dysuria, flank pain and hematuria. Musculoskeletal: Positive for neck pain. Negative for arthralgias, back pain and neck stiffness. Skin: Negative for rash and wound. Neurological: Positive for headaches. Negative for dizziness, syncope and light-headedness. Psychiatric/Behavioral: Negative for agitation and confusion. PAST MEDICAL HISTORY Past Medical History: Diagnosis Date ? Back pain ? Depression ? Gastritis ? GERD (gastroesophageal reflux disease) ? Hypothyroid SURGICAL HISTORY Past Surgical History: Procedure Laterality Date ? BACK SURGERY 2017 ? CHOLECYSTECTOMY 1981 ? COLONOSCOPY 07/2018 ? ENDOSCOPY, COLON, DIAGNOSTIC 07/2018 EGD with biopsy ? HYSTERECTOMY 2004 ? JOINT REPLACEMENT Left left hip ? KIDNEY REMOVAL Left ? KIDNEY SURGERY Right right kideny remove, due tto cancer ? THYROIDECTOMY, PARTIAL ? TOTAL ANKLE ARTHROPLASTY Right CURRENT MEDICATIONS Previous Medications ACETAMINOPHEN (TYLENOL) 500 MG TABLET Take 2 tablets by mouth 4 times daily as needed for Pain CLONAZEPAM (KLONOPIN) 0.5 MG TABLET Take 0.5 mg by mouth daily.. GABAPENTIN (NEURONTIN) 300 MG CAPSULE Take 300 mg by mouth daily.. HYDROCODONE-ACETAMINOPHEN (NORCO) 5-325 MG PER TABLET Take 1 tablet by mouth 2 times daily.. LEVOTHYROXINE (SYNTHROID) 88 MCG TABLET Take 88 mcg by mouth PANTOPRAZOLE (PROTONIX) 40 MG TABLET Take 1 tablet by mouth every morning (before breakfast) SERTRALINE (ZOLOFT) 50 MG TABLET Take 50 mg by mouth VITAMIN D (CHOLECALCIFEROL) 1000 UNIT TABS TABLET Take 1 tablet by mouth daily ALLERGIES Patient has no known allergies. FAMILY HISTORY Family History Problem Relation Age of Onset ? Coronary Art Dis Mother ? Heart Attack Mother ? Stroke Mother ? Cancer Father unknow ? Colon Cancer Neg Hx ? Stomach Cancer Neg Hx ? Liver Cancer Neg Hx SOCIAL HISTORY Social History Socioeconomic History ? Marital status: Spouse name: Not on file ? Number of children: Not on file ? Years of education: Not on file ? Highest education level: Not on file Occupational History ? Not on file Tobacco Use ? Smoking status: Former Smoker Packs/day: 1.00 Years: 36.00 Pack years: 36.00 Start date: 08/04/1970 Quit date: 08/04/2016 Years since quittin.1 ? Smokeless tobacco: Never Used Vaping Use ? Vaping Use: Never used Substance and Sexual Activity ? Alcohol use: No Comment: ast drinking 05/2018, no hx EtOH, never attended AA progran ? Drug use: No ? Sexual activity: Never Comment: divorce Other Topics Concern ? Not on file Social History Narrative ? Not on file Social Determinants of Health Financial Resource Strain: ? Difficulty of Paying Living Expenses: Not on file Food Insecurity: ? Worried About Running Out of Food in the Last Year: Not on file ? Ran Out of Food in the Last Year: Not on file Transportation Needs: ? Lack of Transportation (Medical): Not on file ? Lack of Transportation (Non-Medical): Not on file Physical Activity: ? Days of Exercis (more content not included)... [facility] ED Provider Note I did not participat e in the care of this patient. Theresa Lainez MD 10/13/21 1258 [facility] XR CHEST 2V FRONTAL/LATon [facility] Clinical Summary: Vicente john 09-19-2021 [facility] OP Visit Invalid Interpretation Code [facility] Work Phone: CBC auto differentialon 04-12 Absolute Baso # 0.0 10*3/uL 0.0 - 0.2 10*3/uL [facility] Absolute Neut # 1.9 10*3/uL 1.8 - 7.0 10*3/uL [facility] Basophils/100 WBC (Bld) 0.7 % 0.0 - 2.0 % [facility] Eosinophils (Bld) [#/Vol] 0.0 10*3/uL 0.0 - 0.5 10*3/uL [facility] Eosinophils/100 WBC (Bld) 0.1 % Low 1.0 - 6.0 % [facility] Granulocytes/100 WBC (Bld) 27.8 % Low 40.0 - 80.0 % [facility] Hematocrit (Bld) [Volume fraction] 33.7 % Low 35.0 - 47.0 % [facility] Hemoglobin.gastrointe stinal spec 1 Ql (Stl) 11.0 g/dL Low 11.7 - 16.0 g/dL [facility] Interpretation and review of laboratory results Abnormal [facility] Lymphocytes (Bld) [#/Vol] 2.7 10*3/uL 1.0 - 4.3 10*3/uL [facility] Lymphocytes/100 WBC (Bld) 39.6 % 20.0 - 40.0 % [facility] MCH (RBC) [Entitic mass] 29.2 pg 26.0 - 34.0 pg [facility] MCHC (RBC) [Mass/Vol] 32.8 % 32.0 - 36.0 % [facility] MCV (RBC) [Entitic vol] 89.0 fL 79.0 - 98.0 fL [facility] Monocytes (Bld) [#/Vol] 2.1 10*3/uL High 0.0 - 0.8 10*3/uL [facility] Monocytes/100 WBC (Bld) 31.8 % High 2.0 - 10.0 % [facility] Platelet distribution width (Bld) [Ratio] 14.9 % High 11.5 - 14.5 % [facility] Platelet mean volume (Bld) [Entitic vol] 9.7 fL 7.4 - 10.4 fL [facility] Platelets (Bld) [#/Vol] 192 10*3/uL 140 - 440 10*3/uL [facility] RBC (Bld) [#/Vol] 3.78 10*6/uL Low 3.80 - 5.20 10*6/uL [facility] WBC (Bld) [#/Vol] 6.7 10*3/uL 3.6 - 10.7 10*3/uL [facility] Test Performed by [facility], [address] [place] [id number] [facility] Comp Panel with Mg Reflexon 05-09-2021 Calcium [Mass/Vol] 7.8 mg/dL Low 8.4-10.4 [facility] Comment on above: Performed By: #### L ACT3, TSH5, BMP3, HEMOG, FT4M, TROPN, LIPA4 #### [address] ALP [Catalytic activity/Vol] 56 U/L Normal 38-126 [facility] Comment on above: Performed By: #### L ACT3, TSH5, BMP3, HEMOG, FT4M, TROPN, LIPA4 #### [address] ALT [Catalytic activity/Vol] 13 U/L Normal 0-34 [facility] Comment on above: Result Comment: The ALT test is performed by an updated assay method. Please note that the reference intervals have been changed and are now sex specific. Performed By: #### L ACT3, TSH5, BMP3, HEMOG, FT4M, TROPN, LIPA4 #### [address] Anion gap [Moles/Vol] 5 mmol/L Normal 3-13 [facility] Comment on above: Performed By: #### L ACT3, TSH5, BMP3, HEMOG, FT4M, TROPN, LIPA4 #### [address] AST [Catalytic activity/Vol] 22 U/L Normal 15-46 [facility] Comment on above: Performed By: #### L ACT3, TSH5, BMP3, HEMOG, FT4M, TROPN, LIPA4 #### [address] Bilirubin [Mass/Vol] 0.4 mg/dL Normal 0.2-1.3 [facility] Comment on above: Performed By: #### L ACT3, TSH5, BMP3, HEMOG, FT4M, TROPN, LIPA4 #### [address] [id number] CO2 [Moles/Vol] 26 mmol/L Normal 22-30 [facility] Comment on above: Performed By: #### L ACT3, TSH5, BMP3, HEMOG, FT4M, TROPN, LIPA4 #### [address] [phone] Creatinine [Mass/Vol] 0.75 mg/dL Normal 0.52-1.25 [facility] Comment on above: Performed By: #### L ACT3, TSH5, BMP3, HEMOG, FT4M, TROPN, LIPA4 #### [address] [phone] GFR/1.73 sq M.predicted among blacks MDRD (S/P/Bld) [Vol rate/Area] 86.7 mL/min/{1.73_m2} Normal >60 [facility] Comment on above: Performed By: #### L ACT3, TSH5, BMP3, HEMOG, FT4M, TROPN, LIPA4 #### [address] [phone] GFR/1.73 sq M.predicted among non-blacks MDRD (S/P/Bld) [Vol rate/Area] 74.8 mL/min/{1.73_m2} Normal >60 [facility] Comment on above: Result Comment: KDIG O guidelines provide the following GFR categories: Stage GFR(ml/min/1.73 m2) Terms G1 >=90 Normal or high G2 60-89 Mildly decreased* G3a 45-59 Mildly to moderately decreased G3b 30-44 Moderately to severely decreased G4 15-29 Severely decreased G5 <15 Kidney failure *Relative to young adult level. In the absence of evidence of kidney damage, neither GFR category G1 nor G2 fulfill the criteria for CKD. The CKD-EPI equation is validated in individuals 18 years of age and older. Currently the best equation for estimating glomerular filtration rate (GFR) from serum creatinine in children is the Bedside De Leon equation. It is less accurate in patients with extremes of muscle mass, restriction of dietary protein, ingestion of creatine, extra-renal metabolism of creatinine, or treatment with medications that affect renal tubular creatinine secretion. Performed By: #### L ACT3, TSH5, BMP3, HEMOG, FT4M, TROPN, LIPA4 #### [place] [address] [address] [place], [place] Glucose [Mass/Vol] 97 mg/dL Normal 70-100 [facility] Comment on above: Performed By: #### L ACT3, TSH5, BMP3, HEMOG, FT4M, TROPN, LIPA4 #### [place] [address] [address] [place], [place] Protein [Mass/Vol] 5.6 g/dL Low 6.3-8.2 [facility] Comment on above: Performed By: #### L ACT3, TSH5, BMP3, HEMOG, FT4M, TROPN, LIPA4 #### [place] [address] [address] [place], [place] Urea nitrogen [Mass/Vol] 8 mg/dL Low 9-20 [facility] Comment on above: Performed By: #### L ACT3, TSH5, BMP3, HEMOG, FT4M, TROPN, LIPA4 #### [place] [address] [address] [place], [place] Potassium [Moles/Vol] 3.9 mmol/L Normal 3.5-5.1 [facility] Comment on above: Performed By: #### L ACT3, TSH5, BMP3, HEMOG, FT4M, TROPN, LIPA4 #### [place] [address] [address] [place], [place] Albumin [Mass/Vol] 3.2 g/dL Low 3.5-5.0 [facility] Comment on above: Performed By: #### L ACT3, TSH5, BMP3, HEMOG, FT4M, TROPN, LIPA4 #### [place] [address] [address] [place], [place] Chloride [Moles/Vol] 107 mmol/L Normal 98-107 [facility] Comment on above: Performed By: #### L ACT3, TSH5, BMP3, HEMOG, FT4M, TROPN, LIPA4 #### [place] [address] [place] [address] Sodium [Moles/Vol] 139 mmol/L Normal 135-145 [facility] Comment on above: Performed By: #### L ACT3, TSH5, BMP3, HEMOG, FT4M, TROPN, LIPA4 #### [facility] [address] [place] [address] Comprehensive Metabolic Pane l w/ Reflex to MGon 05-09-2021 Albumin [Mass/Vol] 3.2 g/dL Low 3.5 - 5.0 g/dL [facility] ALP (Bld) [Catalytic activity/Vol] 56 U/L 38 - 126 U/L [facility] ALT [Catalytic activity/Vol] 13 U/L 0 - 34 U/L [facility] Comment on above: The ALT test is perf ormed by an updated assay method. Please note that the reference intervals have been changed and are now sex specific. Anion gap [Moles/Vol] 5 mmol/L 3 - 13 mmol/L [facility] AST [Catalytic activity/Vol] 22 U/L 15 - 46 U/L [facility] Bilirubin [Mass/Vol] 0.4 mg/dL 0.2 - 1 .3 mg/dL [facility] Calcium [Mass/Vol] 7.8 mg/dL Low 8.4 - 10. 4 mg/dL [facility] Chloride [Moles/Vol] 107 mmol/L 98 - 10 7 mmol/L [facility] CO2 [Moles/Vol] 26 mmol/L 22 - 30 mmol/L [facility] Creatinine [Mass/Vol] 0.75 mg/dL 0.52 - 1.25 mg/dL [facility] EGFR IF NonAfrican [place] 74.8 mL/min >60 [facility] Comment on above: KDIGO guidelines pro vide the following GFR categories: Stage GFR(ml/min/1.73 m2) Terms G1 >=90 Normal or high G2 60-89 Mildly decreased* G3a 45-59 Mildly to moderately decreased G3b 30-44 Moderately to severely decreased G4 15-29 Severely decreased G5 <15 Kidney failure *Relative to young adult level. In the absence of evidence of kidney damage, neither GFR category G1 nor G2 fulfill the criteria for CKD. The CKD-EPI equation is validated in individuals 18 years of age and older. Currently the best equation for estimating glomerular filtration rate (GFR) from serum creatinine in children is the Bedside De Leon equation. It is less accurate in patients with extremes of muscle mass, restriction of dietary protein, ingestion of creatine, extra-renal metabolism of creatinine, or treatment with medications that affect renal tubular creatinine secretion. Free PSA/Total PSA [Mass fraction] 5.6 g/dL Low 6.3 - 8.2 g/dL [facility] GFR/1.73 sq M.predicted among blacks MDRD (S/P/Bld) [Vol rate/Area] 86.7 mL/min/{1.73_m2} >60 [facility] Glucose [Mass/Vol] 97 mg/dL 70 - 100 mg/dL [facility] Interpretation and review of laboratory results Abnormal [facility] Potassium [Moles/Vol] 3.9 mmol/L 3.5 - 5.1 mmol/L [facility] Sodium [Moles/Vol] 139 mmol/L 135 - 145 mmol/L [facility] Urea nitrogen (BldV) [Mass/Vol] 8 mg/dL Low 9 - 20 mg/dL [facility] Test Performed by [id number] [place] [address] LAB [facility] ECHO Complete 2D W Doppler W Coloron 05-09-2021 TRANSTHORACIC ECHOCARDIOGRAM PATIENT: Dashawn, STUDY DATE: 05/09/2021 Kathryn Sharma : 1940 AGE: 80 HT/WT: 152.4 cm (60 48.1 kg (105.8 in) lb) GENDER: F BP: 112 / 53 LOCATION: [facility] PATIENT Observation main STATUS: *ORDERING PHYSICIAN: * Kay Ivey *READING PHYSICIAN: * Olivier, LmGUEST SERVICE HOST: * Theresa ERICKSON INDICATIONS: Syncope. CONCLUSIONS SUMMARY: 1. Left ventricle: The cavity size is normal. Wall thickness is mildly increased. Systolic function is normal by the biplane method of disks. The estimated ejection fraction is 64%. There are no regional wall motion abnormalities. 2. Right ventricle: The cavity size is normal. Systolic function is normal. 3. Tricuspid valve: There is mild, 1+ regurgitation. 4. Technically difficult study. STUDY DATA: Complete transthoracic echocardiogram. Procedure: Image quality was adequate. M-mode, complete 2D, complete spectral Doppler, and color flow Doppler images were acquired and archived for permanent storage and are available for subsequent review. Study status: Routine. Patient status: Observation. FINDINGS LEFT VENTRICLE: The cavity size is normal. Wall thickness is mildly increased. Systolic function is normal by the biplane method of disks. The estimated ejection fraction is 64%. There are no regional wall motion abnormalities. Left ventricular diastolic function parameters are normal. RIGHT VENTRICLE: The cavity size is normal. Systolic function is normal. Right ventricular systolic pressure is within the normal range. VENTRICULAR SEPTUM: There is no evidence of a ventricular septal defect. LEFT ATRIUM: The atrium is normal in size. RIGHT ATRIUM: The atrium is normal in size. ATRIAL SEPTUM: Color Doppler shows no shunt. MITRAL VALVE: Structurally normal valve. Doppler: There is no regurgitation. The peak diastolic gradient is 2 mm Hg. AORTIC VALVE: Structurally normal valve. Trileaflet. Doppler: There is no regurgitation. Dimensionless index: 1. The valve area by the velocity-time integral method is 2.9 cm^2. The valve area index by the velocity-time integral method is 2 cm^2/m^2. The mean systolic gradient is 3 mm Hg. The peak systolic gradient is 5 mm Hg. The peak systolic velocity is 1.2 m/sec. TRICUSPID VALVE: Structurally normal valve. Doppler: There is mild, 1+ regurgitation. PULMONIC VALVE: Structurally normal valve. Doppler: There is trivial, less than 1+ regurgitation. AORTA: The aorta is normal. PULMONARY ARTERY: Main pulmonary artery: Normal. PERICARDIUM: Prominent epicardial fat is present. There is no pericardial effusion. SYSTEMIC VEINS: Inferior vena cava: The vessel is normal. The IVC collapses by greater than 50% with inspiration. Hepatic veins: The flow pattern is normal. Measurements Value Reference Aortic root ID 3.0 cm <3.7 Aortic root ID, STJ, ED 2.3 cm 2.0 - 3.2 Aortic root ID/bsa, STJ, ED 1.6 cm/m^2 1.1 - 1.9 Value Reference Ascending aorta ID 2.9 cm 1.9 - 3.5 Ascending aorta ID/bsa, A-P 2.0 cm/m^2 1.0 - 2.2 Ascending aorta ID, A-P, S 2.9 cm Ascending aorta ID/bsa, A-P, S 2.0 cm/m^2 IVC Value Reference ID 1.5 cm Left ventricle Value Reference LV ID, ED 4.6 cm 3.8 - 5.2 LV ID, ES 2.9 cm 2.2 - 3.5 LV ID/bsa, ED (H) 3.2 cm/m^2 2.3 - 3.1 LV ID/bsa, ES 2.0 cm/m^2 1.3 - 2.1 LV PW thickness, ED (H) 1.1 cm 0.6 - 0.9 LV PW/LV ID ratio, ED 0.23 LV wall mass (H) 193 g 66 - 150 LV wall mass/bsa (H) 135 g/m^2 44 - 88 Stroke volume/bsa, 1-p A2C 21.9 ml/m^2 LV end-diastolic volume, 1-p A4C 54 ml 48 - 140 LV end-systolic volume, 1-p A4C 20 (more content not included)... [facility] Pallavi Aguayo M D - 05/09/2021 TRANSTHORACIC ECHOCARDIOGRAM PATIENT: Dsahawn, STUDY DATE: 05/09/2021 Kathryn Sharma : 1940 AGE: 80 HT/WT: 152.4 cm (60 48.1 kg (105.8 in) lb) GENDER: F BP: 112 / 53 LOCATION: [facility] PATIENT Observation main STATUS: *ORDERING PHYSICIAN: * Kay Ivey *READING PHYSICIAN: * Olivier, *GUEST SERVICE HOST: * Theresa ERICKSON INDICATIONS: Syncope. CONCLUSIONS SUMMARY: 1. Left ventricle: The cavity size is normal. Wall thickness is mildly increased. Systolic function is normal by the biplane method of disks. The estimated ejection fraction is 64%. There are no regional wall motion abnormalities. 2. Right ventricle: The cavity size is normal. Systolic function is normal. 3. Tricuspid valve: There is mild, 1+ regurgitation. 4. Technically difficult study. STUDY DATA: Complete transthoracic echocardiogram. Procedure: Image quality was adequate. M-mode, complete 2D, complete spectral Doppler, and color flow Doppler images were acquired and archived for permanent storage and are available for subsequent review. Study status: Routine. Patient status: Observation. FINDINGS LEFT VENTRICLE: The cavity size is normal. Wall thickness is mildly increased. Systolic function is normal by the biplane method of disks. The estimated ejection fraction is 64%. There are no regional wall motion abnormalities. Left ventricular diastolic function parameters are normal. RIGHT VENTRICLE: The cavity size is normal. Systolic function is normal. Right ventricular systolic pressure is within the normal range. VENTRICULAR SEPTUM: There is no evidence of a ventricular septal defect. LEFT ATRIUM: The atrium is normal in size. RIGHT ATRIUM: The atrium is normal in size. ATRIAL SEPTUM: Color Doppler shows no shunt. MITRAL VALVE: Structurally normal valve. Doppler: There is no regurgitation. The peak diastolic gradient is 2 mm Hg. AORTIC VALVE: Structurally normal valve. Trileaflet. Doppler: There is no regurgitation. Dimensionless index: 1. The valve area by the velocity-time integral method is 2.9 cm^2. The valve area index by the velocity-time integral method is 2 cm^2/m^2. The mean systolic gradient is 3 mm Hg. The peak systolic gradient is 5 mm Hg. The peak systolic velocity is 1.2 m/sec. TRICUSPID VALVE: Structurally normal valve. Doppler: There is mild, 1+ regurgitation. PULMONIC VALVE: Structurally normal valve. Doppler: There is trivial, less than 1+ regurgitation. AORTA: The aorta is normal. PULMONARY ARTERY: Main pulmonary artery: Normal. PERICARDIUM: Prominent epicardial fat is present. There is no pericardial effusion. SYSTEMIC VEINS: Inferior vena cava: The vessel is normal. The IVC collapses by greater than 50% with inspiration. Hepatic veins: The flow pattern is normal. Measurements Value Reference Aortic root ID 3.0 cm <3.7 Aortic root ID, STJ, ED 2.3 cm 2.0 - 3.2 Aortic root ID/bsa, STJ, ED 1.6 cm/m^2 1.1 - 1.9 Value Reference Ascending aorta ID 2.9 cm 1.9 - 3.5 Ascending aorta ID/bsa, A-P 2.0 cm/m^2 1.0 - 2.2 Ascending aorta ID, A-P, S 2.9 cm Ascending aorta ID/bsa, A-P, S 2.0 cm/m^2 IVC Value Reference ID 1.5 cm Left ventricle Value Reference LV ID, ED 4.6 cm 3.8 - 5.2 LV ID, ES 2.9 cm 2.2 - 3.5 LV ID/bsa, ED (H) 3.2 cm/m^2 2.3 - 3.1 LV ID/bsa, ES 2.0 cm/m^2 1.3 - 2.1 LV PW thickness, ED (H) 1.1 cm 0.6 - 0.9 LV PW/LV ID ratio, ED 0.23 LV wall mass (H) 193 g 66 - 150 LV wall mass/bsa (H) 135 g/m^2 44 - 88 Stroke volume/bsa, 1-p A2C 21.9 ml/m^2 LV end-diastolic volume, 1-p A4C 54 ml 48 - 140 LV end-systolic volume, 1-p A4C 20 ml 12 - 60 LV end-diastolic volume, 2-p 51 ml 46 - 106 LV end-systolic volume, 2-p 18 ml 14 - 42 LV ejection fraction, 2-p 64 % 54 - 74 LV E/e', lateral 9.1 LV E/e', medial 9.9 LV E/e', average 9.5 Ventricular septum Value Reference IVS thickness, ED (H) 1.2 cm 0.6 - 0.9 LVOT Value Reference LVOT ID, A-P 1.9 cm LVOT mean velocity, S 0.7 m/sec LVOT peak gradient, S 5 mm Hg Stroke volume (SV), LVOT DP 66 ml Stroke index (SV/bsa), LVOT DP 46 ml/m^2 Aortic valve Value Reference Aortic valve peak velocity, S 1.2 m/sec Aortic valve mean velocity, S 0.8 m/sec Aortic mean gradient, S 3 mm (more content not included)... [employer] Work Phone: ECHO Complete 2D W Doppler W ColorOrdered By: Pallavi Aguayo on 05-09-2021 [place] Phone: Echo Complete w/wo Contrasto n 05-09-2021 Echo Complete w/wo Contrast Patient Name: KATHRYN TAMEZ I Ultrasound ACCESSION EXAM DATE/TIME PROCEDURE ORDERING PROVIDER [id number] 05/09/2021 09:44 EST Echo Complete w/wo [id number] -KAY IVEY Reason For Exam (Echo Complete w/wo Contrast) syncope Report TRANSTHORACIC ECHOCARDIOGRAM PATIENT: Dashawn, STUDY DATE: 05/09/2021 Kathryn Sharma : 1940 AGE: 80 HT/WT: 152.4 cm (60 48.1 kg (105.8 in) lb) GENDER: F BP: 112 / 53 LOCATION: [facility] PATIENT Observation main STATUS: *ORDERING PHYSICIAN: * Kay Ivey *READING PHYSICIAN: * Lm AguayoGUEST SERVICE HOST: * Theresa Olivo RCS INDICATIONS: Syncope. CONCLUSIONS SUMMARY: 1. Left ventricle: The cavity size is normal. Wall thickness is mildly increased. Systolic function is normal by the biplane method of disks. The estimated ejection fraction is 64%. There are no regional wall motion abnormalities. 2. Right ventricle: The cavity size is normal. Systolic function is normal. 3. Tricuspid valve: There is mild, 1+ regurgitation. 4. Technically difficult study. STUDY DATA: Complete transthoracic echocardiogram. Procedure: Image quality was adequate. M-mode, complete 2D, complete spectral Doppler, and color flow Doppler images were acquired and archived for permanent storage and are available for subsequent review. Study status: Routine. Patient status: Observation. FINDINGS LEFT VENTRICLE: The cavity size is normal. Wall thickness is mildly increased. Systolic function is normal by the biplane method of disks. The estimated ejection fraction is 64%. There are no regional wall Ultrasound Report motion abnormalities. Left ventricular diastolic function parameters are normal. RIGHT VENTRICLE: The cavity size is normal. Systolic function is normal. Right ventricular systolic pressure is within the normal range. VENTRICULAR SEPTUM: There is no evidence of a ventricular septal defect. LEFT ATRIUM: The atrium is normal in size. RIGHT ATRIUM: The atrium is normal in size. ATRIAL SEPTUM: Color Doppler shows no shunt. MITRAL VALVE: Structurally normal valve. Doppler: There is no regurgitation. The peak diastolic gradient is 2 mm Hg. AORTIC VALVE: Structurally normal valve. Trileaflet. Doppler: There is no regurgitation. Dimensionless index: 1. The valve area by the velocity-time integral method is 2.9 cm^2. The valve area index by the velocity-time integral method is 2 cm^2/m^2. The mean systolic gradient is 3 mm Hg. The peak systolic gradient is 5 mm Hg. The peak systolic velocity is 1.2 m/sec. TRICUSPID VALVE: Structurally normal valve. Doppler: There is mild, 1+ regurgitation. PULMONIC VALVE: Structurally normal valve. Doppler: There is trivial, less than 1+ regurgitation. AORTA: The aorta is normal. PULMONARY ARTERY: Main pulmonary artery: Normal. PERICARDIUM: Prominent epicardial fat is present. There is no pericardial effusion. SYSTEMIC VEINS: Inferior vena cava: The vessel is normal. The IVC collapses by greater than 50% with inspiration. Hepatic veins: The flow pattern is normal. Measurements Value Reference Aortic root ID 3.0 cm <3.7 Aortic root ID, STJ, ED 2.3 cm 2.0 - 3.2 Aortic root ID/bsa, STJ, ED 1.6 cm/m^2 1.1 - 1.9 Value Reference Ascending aorta ID 2.9 cm 1.9 - 3.5 Ascending aorta ID/bsa, A-P 2.0 cm/m^2 1.0 - 2.2 Ascending aorta ID, A-P, S 2.9 cm Ascending aorta ID/bsa, A-P, S 2.0 cm/m^2 IVC Value Reference ID 1.5 cm Left ventricle Value Reference LV ID, ED 4.6 cm 3.8 - 5.2 LV ID, ES 2.9 cm 2.2 - 3.5 LV ID/bsa, ED (H) 3.2 cm/m^2 2.3 - 3.1 LV ID/bsa, ES 2.0 cm/m^2 1.3 - 2.1 LV PW thickness, ED (H) 1.1 cm 0.6 - 0.9 LV PW/LV ID ratio, ED 0.23 LV wall mass (H) 193 g 66 - 150 LV wall mass/bsa (H) 135 g/m^2 44 - 88 Stroke volume/bsa, 1-p A2C 21.9 ml/m^2 LV end-diastolic volume, 1-p A4C 54 ml 48 - 140 LV end-systolic volume, 1-p A4C 20 ml 12 - 60 LV end-diastolic volume, 2-p 51 ml 46 - 106 LV end-systolic volume, 2-p 18 ml 14 - 42 LV ejection fraction, 2-p 64 % 54 - 74 Ultrasound Report LV E/e', lateral 9.1 LV E/e', medial 9.9 LV E/e', average 9.5 Ventricular septum Value Reference IVS thickness, ED (H) 1.2 cm 0.6 - 0.9 LVOT Value Reference LVOT ID, A-P 1.9 cm LVOT mean velocity, S 0.7 m/sec LVOT peak gradient, S 5 mm Hg Stroke volume (SV), LVO (more content not included)... Normal [facility] Hemogram w/ Autodiffon 05-09 Abs Baso Cnt 0.0 10*3/uL Normal 0.0-0.2 [facility] Comment on above: Performed By: #### L ACT3, TSH5, BMP3, HEMOG, FT4M, TROPN, LIPA4 #### [place] [address] [place], [place] Abs Neutrophile Cnt 1.9 10*3/uL Normal 1.8-7.0 [facility] Comment on above: Performed By: #### L ACT3, TSH5, BMP3, HEMOG, FT4M, TROPN, LIPA4 #### [place] [address] [place], [place] Basophils/100 WBC (Bld) 0.7 % Normal 0.0-2.0 [facility] Comment on above: Performed By: #### L ACT3, TSH5, BMP3, HEMOG, FT4M, TROPN, LIPA4 #### [address] Eosinophils (Bld) [#/Vol] 0.0 10*3/uL Normal 0.0-0.5 [facility] Comment on above: Performed By: #### L ACT3, TSH5, BMP3, HEMOG, FT4M, TROPN, LIPA4 #### [address] Eosinophils/100 WBC (Bld) 0.1 % Low 1.0-6.0 [facility] Comment on above: Performed By: #### L ACT3, TSH5, BMP3, HEMOG, FT4M, TROPN, LIPA4 #### [address] Granulocytes/100 WBC (Bld) 27.8 % Low 40.0-80.0 [facility] Comment on above: Performed By: #### L ACT3, TSH5, BMP3, HEMOG, FT4M, TROPN, LIPA4 #### [address] [id number] Lymphocytes (Bld) [#/Vol] 2.7 10*3/uL Normal 1.0-4.3 [facility] Comment on above: Performed By: #### L ACT3, TSH5, BMP3, HEMOG, FT4M, TROPN, LIPA4 #### [address] [address] [place], [place] Lymphocytes/100 WBC (Bld) 39.6 % Normal 20.0-40.0 [facility] Comment on above: Performed By: #### L ACT3, TSH5, BMP3, HEMOG, FT4M, TROPN, LIPA4 #### [place] [address] [place], [place] Monocytes (Bld) [#/Vol] 2.1 10*3/uL High 0.0-0.8 [facility] Comment on above: Performed By: #### L ACT3, TSH5, BMP3, HEMOG, FT4M, TROPN, LIPA4 #### [place] [address] [place], [place] Monocytes/100 WBC (Bld) 31.8 % High 2.0-10.0 [facility] Comment on above: Performed By: #### L ACT3, TSH5, BMP3, HEMOG, FT4M, TROPN, LIPA4 #### [place] [address] [place], [place] Erythrocyte distribution width (RBC) [Ratio] 14.9 % High 11.5-14.5 [facility] Comment on above: Performed By: #### L ACT3, TSH5, BMP3, HEMOG, FT4M, TROPN, LIPA4 #### [place] [address] [place], [place] Hematocrit (Bld) [Volume fraction] 33.7 % Low 35.0-47.0 [facility] Comment on above: Performed By: #### L ACT3, TSH5, BMP3, HEMOG, FT4M, TROPN, LIPA4 #### [place] [address] [place], [place] Hemoglobin (Bld) [Mass/Vol] 11.0 g/dL Low 11.7-16.0 [facility] Comment on above: Performed By: #### L ACT3, TSH5, BMP3, HEMOG, FT4M, TROPN, LIPA4 #### [place] [address] [place], [place] MCH (RBC) [Entitic mass] 29.2 pg Normal 26.0-34.0 [facility] Comment on above: Performed By: #### L ACT3, TSH5, BMP3, HEMOG, FT4M, TROPN, LIPA4 #### [place] [address] [place], [place] MCHC 32.8 % Normal 32.0-36.0 [facility] Comment on above: Performed By: #### L ACT3, TSH5, BMP3, HEMOG, FT4M, TROPN, LIPA4 #### [address] MCV (RBC) [Entitic vol] 89.0 fL Normal 79.0-98.0 [facility] Comment on above: Performed By: #### L ACT3, TSH5, BMP3, HEMOG, FT4M, TROPN, LIPA4 #### [address] Platelet mean volume (Bld) [Entitic vol] 9.7 fL Normal 7.4-10.4 [facility] Comment on above: Performed By: #### L ACT3, TSH5, BMP3, HEMOG, FT4M, TROPN, LIPA4 #### [place] [address] [place], [place] Platelets (Bld) [#/Vol] 192 10*3/uL Normal 140-440 [facility] Comment on above: Performed By: #### L ACT3, TSH5, BMP3, HEMOG, FT4M, TROPN, LIPA4 #### [address] RBC (Bld) [#/Vol] 3.78 10*6/uL Low 3.80-5.20 [facility] Comment on above: Performed By: #### L ACT3, TSH5, BMP3, HEMOG, FT4M, TROPN, LIPA4 #### [facility] [address] [place] [address] WBC (Bld) [#/Vol] 6.7 10*3/uL Normal 3.6-10.7 [facility] [employer] [facility] Comment on above: Performed By: #### L ACT3, TSH5, BMP3, HEMOG, FT4M, TROPN, LIPA4 #### [facility] [address] [place] [address] VL CAROTID BILATERALon 05-09 [facility] Carotid Duplex Report Patient Dashawn : 1940 Study 05/08/2021 Name: Kathryn Sharma (80yrs) Date: Patient [id number] Age: 80 Account: [id number] ID: Gender: F Loc: 1449 BP: Ordering Physician: Kay Ivey Borough Coordinator: Karma Gold RVT Interpreting Physician: Amandeep Beasley MD Location: [facility] Indications: Dizziness. Conclusions 1. Normal antegrade flow involving the left vertebral artery. 2. Normal antegrade flow involving the right vertebral artery. 3. Mild carotid disease present with less than 50% stenosis involving the right internal carotid artery. 4. Mild carotid disease present with less than 50% stenosis involving the left internal carotid artery. History: Risk factors: Former tobacco use. Study data: Complete carotid duplex study. Grayscale 2D imaging, color Doppler imaging, and spectral Doppler analysis. Location: Vascular laboratory. Procedure: A vascular evaluation was performed with the patient in the supine position. Images were obtained using a Catglobe E9 vascular ultrasound machine. Findings Carotid/vertebral arteries: Right common carotid: The vessel is tortuous. The distal vessel has heterogeneous plaque. Right internal carotid: The vessel is tortuous. The proximal vessel has heterogeneous plaque. Right external carotid: The vessel is normal; it has no evidence of disease. Right vertebral: The arterial flow direction is antegrade. Left vertebral: The arterial flow direction is antegrade. Left common carotid: The distal vessel has heterogeneous plaque. Left internal carotid: The vessel is tortuous. The proximal vessel has heterogeneous plaque. Left external carotid: The proximal vessel has heterogeneous plaque. Arterial flow: + + + + +Location +PSV(cm/sec)+EDV(cm/sec)+ + + + + +R CCA , prox +50 +13 + + + + + +R CCA , mid +56 +17 + + + + + +R CCA , distal+48 +17 + + + + + +R ICA , prox +70 +27 + + + + + +R ICA , mid +77 +27 + + + + + +R ICA , distal+60 +23 + + + + + +R ECA +65 +8 + + + + + +R vertebral +105 +22 + + + + + +R subclavian +75 +0 + + + + + +L CCA , prox +66 +15 + + + + + +L CCA , mid +62 +19 + + + + + +L CCA , distal+69 +24 + + + + + +L ICA , prox +58 +22 + + + + + +L ICA , mid +77 +28 + + + + + +L ICA , distal+65 +23 + + + + + +L ECA +48 +0 + + + + + +L vertebral +66 +24 + + + + + +L subclavian +81 +8 + + + + + Velocity ratios: + +-- ---+-----+ + +R PSV+L PSV+ + +-- ---+-----+ +Max ICA / Mid CCA Ratio+1.38 +1.24 + + +-- ---+-----+ Prepared and electronically signed by Amandeep Beasley MD 05/09/2021 08:22 [facility] Amandeep Beasley MD - 05/09/2021 [facility] Carotid Duplex Report Patient DO DashawnB: 1940 Study 05/08/2021 Name: Kathryn Sharma (80yrs) Date: Patient [id number] Age: 80 Account: [id number] ID: Gender: F Loc: 1449 BP: Ordering Physician: Kay Ivey Borough Coordinator: Karma Gold RVT Interpreting Physician: Amandeep Beasley MD Location: [facility] Indications: Dizziness. Conclusions 1. Normal antegrade flow involving the left vertebral artery. 2. Normal antegrade flow involving the right vertebral artery. 3. Mild carotid disease present with less than 50% stenosis involving the right internal carotid artery. 4. Mild carotid disease present with less than 50% stenosis involving the left internal carotid artery. History: Risk factors: Former tobacco use. Study data: Complete carotid duplex study. Grayscale 2D imaging, color Doppler imaging, and spectral Doppler analysis. Location: Vascular laboratory. Procedure: A vascular evaluation was performed with the patient in the supine position. Images were obtained using a Catglobe E9 vascular ultrasound machine. Findings Carotid/vertebral arteries: Right common carotid: The vessel is tortuous. The distal vessel has heterogeneous plaque. Right internal carotid: The vessel is tortuous. The proximal vessel has heterogeneous plaque. Right external carotid: The vessel is normal; it has no evidence of disease. Right vertebral: The arterial flow direction is antegrade. Left vertebral: The arterial flow direction is antegrade. Left common carotid: The distal vessel has heterogeneous plaque. Left internal carotid: The vessel is tortuous. The proximal vessel has heterogeneous plaque. Left external carotid: The proximal vessel has heterogeneous plaque. Arterial flow: + + + + +Location +PSV(cm/sec)+EDV(cm/sec)+ + + + + +R CCA , prox +50 +13 + + + + + +R CCA , mid +56 +17 + + + + + +R CCA , distal+48 +17 + + + + + +R ICA , prox +70 +27 + + + + + +R ICA , mid +77 +27 + + + + + +R ICA , distal+60 +23 + + + + + +R ECA +65 +8 + + + + + +R vertebral +105 +22 + + + + + +R subclavian +75 +0 + + + + + +L CCA , prox +66 +15 + + + + + +L CCA , mid +62 +19 + + + + + +L CCA , distal+69 +24 + + + + + +L ICA , prox +58 +22 + + + + + +L ICA , mid +77 +28 + + + + + +L ICA , distal+65 +23 + + + + + +L ECA +48 +0 + + + + + +L vertebral +66 +24 + + + + + +L subclavian +81 +8 + + + + + Velocity ratios: + +-- ---+-----+ + +R PSV+L PSV+ + +-- ---+-----+ +Max ICA / Mid CCA Ratio+1.38 +1.24 + + +-- ---+-----+ Prepared and electronically signed by Amandeep Beasley MD 05/09/2021 08:22 [employer] Work Phone: VL CAROTID BILATERALOrdered By: Amandeep Beasley on 05-09-2021 [place] Phone: EKG 12 Leadon 05-08-2021 [facility] Test Date: 2021-05-07 Pat Name: KATHRYN TAMEZ Department: [facility] Room: 1449 Gender: F Machine Finisher: ZARINA : 1940 Requested By: JOSH MCCARTY Order Number: [id number] Zackary MD: Da Tirado Measurements Intervals [place] Rate: 62 P: 79 OK: 120 QRS: 33 QRSD: 91 T: 45 QT: 428 QTc: 435 Interpretive Statements Sinus rhythm Electronically Signed On 05-08-2021 9:58:04 EST by Da Tirado [facility] Da Tirado MD - 05/08/2021 [facility] Test Date: 2021-05-07 Pat Name: KATHRYN TAMEZ Department: [facility] Room: 1449 Gender: F Machine Finisher: ZARINA : 1940 Requested By: JOSH MCCARTY Order Number: [id number] Reading MD: Da Tirado Measurements Intervals [place] Rate: 62 P: 79 OK: 120 QRS: 33 QRSD: 91 T: 45 QT: 428 QTc: 435 Interpretive Statements Sinus rhythm Electronically Signed On 05-08-2021 9:58:04 EST by Da Tirado [facility] Work Phone: EKG 12 LeadOrdered By: Da iTrado on 05-08-2021 [facility] Work Phone: VL Carotid Duplex Ultrasound Completeon 05-08-2021 VL Carotid Duplex Ultrasound Complete Patient Name: KATHRYN TAMEZ I Ultrasound ACCESSION EXAM DATE/TIME PROCEDURE ORDERING PROVIDER [id number] 05/08/2021 16:17 EST VL Carotid Duplex [id number] -KAY IVEY Ultrasound Complete CPT code 17791 Reason For Exam (VL Carotid Duplex Ultrasound Complete) syncope Report [facility] Carotid Duplex Report Patient Dashawn : 1940 Study 05/08/2021 Name: Kathryn Sharma (80yrs) Date: Patient [id number] Age: 80 Account: [id number] ID: Gender: F Loc: 1449 BP: Ordering Physician: Kay Ivey Borough Coordinator: Karma Gold T Interpreting Physician: Amandeep Beasley MD Location: [facility] Indications: Dizziness. Conclusions 1. Normal antegrade flow involving the left vertebral artery. 2. Normal antegrade flow involving the right vertebral artery. 3. Mild carotid disease present with less than 50% stenosis involving the right internal carotid artery. 4. Mild carotid disease present with less than 50% stenosis involving the left internal carotid artery. History: Risk factors: Former tobacco use. Study data: Complete carotid duplex study. Grayscale 2D imaging, color Doppler imaging, and spectral Doppler analysis. Location: Vascular laboratory. Procedure: A vascular evaluation was performed with the patient in the supine position. Images were obtained using a Catglobe E9 vascular ultrasound machine. Ultrasound Report Findings Carotid/vertebral arteries: Right common carotid: The vessel is tortuous. The distal vessel has heterogeneous plaque. Right internal carotid: The vessel is tortuous. The proximal vessel has heterogeneous plaque. Right external carotid: The vessel is normal; it has no evidence of disease. Right vertebral: The arterial flow direction is antegrade. Left vertebral: The arterial flow direction is antegrade. Left common carotid: The distal vessel has heterogeneous plaque. Left internal carotid: The vessel is tortuous. The proximal vessel has heterogeneous plaque. Left external carotid: The proximal vessel has heterogeneous plaque. Arterial flow: + + + + +Location +PSV(cm/sec)+EDV(cm/sec)+ + + + + +R CCA , prox +50 +13 + + + + + +R CCA , mid +56 +17 + + + + + +R CCA , distal+48 +17 + + + + + +R ICA , prox +70 +27 + + + + + +R ICA , mid +77 +27 + + + + + +R ICA , distal+60 +23 + + + + + +R ECA +65 +8 + + + + + +R vertebral +105 +22 + + + + + +R subclavian +75 +0 + + + + + +L CCA , prox +66 +15 + + + + + +L CCA , mid +62 +19 + + + + + +L CCA , distal+69 +24 + + + + + +L ICA , prox +58 +22 + + + + + +L ICA , mid +77 +28 + + + + + +L ICA , distal+65 +23 + + + + + +L ECA +48 +0 + + + + + +L vertebral +66 +24 + + + + + +L subclavian +81 +8 + + + + + Velocity ratios: Ultrasound Report + +-- ---+-----+ + +R PSV+L PSV+ + +-- ---+-----+ +Max ICA / Mid CCA Ratio+1.38 +1.24 + + +-- ---+-----+ Prepared and electronically signed by Amandeep Beasley MD 05/09/2021 08:22 Final Dictated: 05/09/2021 8:22 am Dictating Physician: AMANDEEP BEASLEY Signed Date and Time: 05/09/2021 8:22 am Signed by: AMANDEEP BEASLEY Cardiovascular ACCESSION EXAM DATE/TIME PROCEDURE [id number] 05/08/2021 16:17 EST VL Carotid Duplex Ultrasound Complete CPT code 33724 Reason For Exam (VL Carotid Duplex Ultrasound Complete) syncope Report [facility] Carotid Duplex Report Patie (more content not included)... Normal [facility] Basic Metabolic Panelon 11-2 Anion gap [Moles/Vol] 6 mmol/L Normal 3-13 [facility] Comment on above: Performed By: #### L ACT3, TSH5, BMP3, HEMOG, FT4M, TROPN, LIPA4 #### [place] [address] [place], [place] Calcium [Mass/Vol] 8.5 mg/dL Normal 8.4-10.4 [facility] Comment on above: Performed By: #### L ACT3, TSH5, BMP3, HEMOG, FT4M, TROPN, LIPA4 #### [place] [address] [address] [place], [place] CO2 [Moles/Vol] 28 mmol/L Normal 22-30 [facility] Comment on above: Performed By: #### L ACT3, TSH5, BMP3, HEMOG, FT4M, TROPN, LIPA4 #### [address] [address] [place], [place] Glucose [Mass/Vol] 100 mg/dL Normal 70-100 [facility] Comment on above: Performed By: #### L ACT3, TSH5, BMP3, HEMOG, FT4M, TROPN, LIPA4 #### [address] [address] [place], [place] Urea nitrogen [Mass/Vol] 14 mg/dL Normal 9-20 [facility] Comment on above: Performed By: #### L ACT3, TSH5, BMP3, HEMOG, FT4M, TROPN, LIPA4 #### [address] Creatinine [Mass/Vol] 0.75 mg/dL Normal 0.52-1.25 [facility] Comment on above: Performed By: #### L ACT3, TSH5, BMP3, HEMOG, FT4M, TROPN, LIPA4 #### [address] [phone] GFR/1.73 sq M.predicted among blacks MDRD (S/P/Bld) [Vol rate/Area] 86.7 mL/min/{1.73_m2} Normal >60 [facility] Comment on above: Performed By: #### L ACT3, TSH5, BMP3, HEMOG, FT4M, TROPN, LIPA4 #### [address] GFR/1.73 sq M.predicted among non-blacks MDRD (S/P/Bld) [Vol rate/Area] 74.8 mL/min/{1.73_m2} Normal >60 [facility] Comment on above: Result Comment: KDIG O guidelines provide the following GFR categories: Stage GFR(ml/min/1.73 m2) Terms G1 >=90 Normal or high G2 60-89 Mildly decreased* G3a 45-59 Mildly to moderately decreased G3b 30-44 Moderately to severely decreased G4 15-29 Severely decreased G5 <15 Kidney failure *Relative to young adult level. In the absence of evidence of kidney damage, neither GFR category G1 nor G2 fulfill the criteria for CKD. The CKD-EPI equation is validated in individuals 18 years of age and older. Currently the best equation for estimating glomerular filtration rate (GFR) from serum creatinine in children is the Bedside [place] equation. It is less accurate in patients with extremes of muscle mass, restriction of dietary protein, ingestion of creatine, extra-renal metabolism of creatinine, or treatment with medications that affect renal tubular creatinine secretion. Performed By: #### L ACT3, TSH5, BMP3, HEMOG, FT4M, TROPN, LIPA4 #### [address] Chloride [Moles/Vol] 106 mmol/L Normal 98-107 [facility] Comment on above: Performed By: #### L ACT3, TSH5, BMP3, HEMOG, FT4M, TROPN, LIPA4 #### [address] Potassium [Moles/Vol] 4.3 mmol/L Normal 3.5-5.1 [facility] Comment on above: Performed By: #### L ACT3, TSH5, BMP3, HEMOG, FT4M, TROPN, LIPA4 #### [address] Sodium [Moles/Vol] 140 mmol/L Normal 135-145 [facility] Comment on above: Performed By: #### L ACT3, TSH5, BMP3, HEMOG, FT4M, TROPN, LIPA4 #### [address] Anion gap [Moles/Vol] 6 mmol/L 3 - 13 mmol/L [facility] Calcium [Mass/Vol] 8.5 mg/dL 8.4 - 10. 4 mg/dL [facility] Chloride [Moles/Vol] 106 mmol/L 98 - 10 7 mmol/L [facility] CO2 [Moles/Vol] 28 mmol/L 22 - 30 mmol/L [facility] Creatinine [Mass/Vol] 0.75 mg/dL 0.52 - 1.25 mg/dL [facility] EGFR IF NonAfrican [place] 74.8 mL/min >60 [facility] Comment on above: KDIGO guidelines pro vide the following GFR categories: Stage GFR(ml/min/1.73 m2) Terms G1 >=90 Normal or high G2 60-89 Mildly decreased* G3a 45-59 Mildly to moderately decreased G3b 30-44 Moderately to severely decreased G4 15-29 Severely decreased G5 <15 Kidney failure *Relative to young adult level. In the absence of evidence of kidney damage, neither GFR category G1 nor G2 fulfill the criteria for CKD. The CKD-EPI equation is validated in individuals 18 years of age and older. Currently the best equation for estimating glomerular filtration rate (GFR) from serum creatinine in children is the Bedside De Elon equation. It is less accurate in patients with extremes of muscle mass, restriction of dietary protein, ingestion of creatine, extra-renal metabolism of creatinine, or treatment with medications that affect renal tubular creatinine secretion. GFR/1.73 sq M.predicted among blacks MDRD (S/P/Bld) [Vol rate/Area] 86.7 mL/min/{1.73_m2} >60 [facility] Glucose [Mass/Vol] 100 mg/dL 70 - 100 mg/dL [facility] Potassium [Moles/Vol] 4.3 mmol/L 3.5 - 5.1 mmol/L [facility] Sodium [Moles/Vol] 140 mmol/L 135 - 145 mmol/L [facility] Urea nitrogen (BldV) [Mass/Vol] 14 mg/dL 9 - 20 mg/dL [facility] CR Chest Portableon 05-07-20 CR Chest Portable Patient Name: KATHRYN MCINTOSH I Diagnostic Radiology ACCESSION EXAM DATE/TIME PROCEDURE ORDERING PROVIDER [id number] 05/07/2021 18:54 EST CR Chest Portable [id number] JOSH MENDOZA CPT code 02128 Reason For Exam (CR Chest Portable) Syncope Report CHEST: CLINICAL INDICATION: Syncope TECHNIQUE: AP portable chest COMPARISON: 08/03/2018 FINDINGS: Support devices: None The cardiomediastinal silhouette appears unchanged from the prior exam. There are coarse interstitial markings likely related to chronic pulmonary disease. No consolidation or pulmonary edema. There is no sizable pleural effusion. The osseous structures are unremarkable. IMPRESSION: Coarse interstitial markings likely related to chronic pulmonary disease. No consolidation or pulmonary edema. Report Dictated on Final Dictated: 05/07/2021 6:41 pm Dictating Physician: MD LOPEZ NICHOLAS Signed Date and Time: 05/07/2021 6:53 pm Signed by: MD LOPEZ NICHOLAS Transcribed Date and Time: 05/07/2021 6:43 Normal [facility] CR Knee 3 Views Lefton 05-07 CR Knee 3 Views Left Patient Name: KATHRYN SINGLETON I Diagnostic Radiology ACCESSION EXAM DATE/TIME PROCEDURE ORDERING PROVIDER [id number] 05/07/2021 20:27 EST CR Knee 3 Views Left [id number] YOUSIF HUNT CPT code 55711 Reason For Exam (CR Knee 3 Views Left) knee swelling s/p fall Report LEFT KNEE: CLINICAL INDICATION: Swelling after fall. TECHNIQUE: AP, lateral and tunnel COMPARISON: 06/25/2014 FINDINGS: There is no evidence for fracture or subluxation. Redemonstration of postsurgical changes in the left knee with longstem femoral and tibial components. There is no joint effusion. No bone lesion is identified. There is no other soft tissue abnormality. Report Dictated on Final Dictated: 05/07/2021 8:24 pm Dictating Physician: MD LOPEZ NICHOLAS Signed Date and Time: 05/07/2021 8:24 pm Signed by: MD LOPEZ NICHOLAS Transcribed Date and Time: 05/07/2021 8:24 Normal [facility] CT Cervical Spine WO Contras ton 05-07-2021 Patient Name: KATHRYN MCINTOSH I Computed Tomography ACCESSION EXAM DATE/TIME PROCEDURE ORDERING PROVIDER [id number] 05/07/2021 19:[address] Spine Cervical w/o [id number] -MCCARTY, Contrast JOSH CPT code 83250 Reason For Exam (CT Spine Cervical w/o Contrast) Fall Report CT CERVICAL SPINE: CLINICAL INDICATION: Trauma, pain TECHNIQUE: Transaxial sequence through the cervical spine. Coronal and sagittal reconstructions included. Three dimensional volume rendered and maximum intensity projection reconstruction was performed concurrently with independent workstation software by the radiologist to better visualize the osseous structures in various orientations. COMPARISON: None FINDINGS: Cervical vertebrae, disc spaces and joints: No fracture, subluxation or other malalignment. There are multilevel degenerative changes including facet joint and uncovertebral joint hypertrophy and degenerative endplate changes with disc space narrowing. No bone lesion identified. Spinal canal: Posterior disc osteophyte complexes are present at C4-C5, C5-C6 and C6-C7 No bony encroachment upon the cervical spinal canal. Soft tissues: The left thyroid lobe is either markedly atrophic or absent. Other: Mild biapical emphysematous changes and biapical scarring. IMPRESSION: 1. No acute abnormality identified throughout the cervical spine. 2. Multilevel cervical spondylosis. 3. Biapical emphysematous changes and biapical scarring. Report Dictated on --- Final --- Dictated: 05/07/2021 7:41 pm Dictating Physician: MD LOPEZ NICHOLAS Signed Date and Time: 05/07/2021 7:47 pm Signed by: MD LOPEZ NICHOLAS Transcribed Date and Time: 05/07/2021 7:41 [facility] Aaron Lopez MD - 05/07/2021 Patient Name: KATHRYN TAMEZ I Computed Tomography ACCESSION EXAM DATE/TIME PROCEDURE ORDERING PROVIDER [id number] 05/07/2021 19:[address] Spine Cervical w/o [id number] -MCCARTY, Contrast JOSH CPT code 90360 Reason For Exam (CT Spine Cervical w/o Contrast) Fall Report CT CERVICAL SPINE: CLINICAL INDICATION: Trauma, pain TECHNIQUE: Transaxial sequence through the cervical spine. Coronal and sagittal reconstructions included. Three dimensional volume rendered and maximum intensity projection reconstruction was performed concurrently with independent workstation software by the radiologist to better visualize the osseous structures in various orientations. COMPARISON: None FINDINGS: Cervical vertebrae, disc spaces and joints: No fracture, subluxation or other malalignment. There are multilevel degenerative changes including facet joint and uncovertebral joint hypertrophy and degenerative endplate changes with disc space narrowing. No bone lesion identified. Spinal canal: Posterior disc osteophyte complexes are present at C4-C5, C5-C6 and C6-C7 No bony encroachment upon the cervical spinal canal. Soft tissues: The left thyroid lobe is either markedly atrophic or absent. Other: Mild biapical emphysematous changes and biapical scarring. IMPRESSION: 1. No acute abnormality identified throughout the cervical spine. 2. Multilevel cervical spondylosis. 3. Biapical emphysematous changes and biapical scarring. Report Dictated on --- Final --- Dictated: 05/07/2021 7:41 pm Dictating Physician: MD LOPEZ NICHOLAS Signed Date and Time: 05/07/2021 7:47 pm Signed by: MD LOPEZ NICHOLAS Transcribed Date and Time: 05/07/2021 7:41 [facility] Work Phone: [facility] Work Phone: CT Head WO Contraston 2020 Patient Name: KATHRYN MCINTOSH I Computed Tomography ACCESSION EXAM DATE/TIME PROCEDURE ORDERING PROVIDER [id number] 05/07/2021 19:[address] Head or Brain w/o [id number] -MCCARTY, Contrast JOSH CPT code 45439 Reason For Exam (CT Head or Brain w/o Contrast) Fall Report CLINICAL INDICATION: Fall COMPARISON: None Technique: Unenhanced [address] images were obtained from skull base to vertex. Images were reformatted in coronal and sagittal projections. Findings: Ventricles: Appropriate in size for the patient's age. Brain Parenchyma There is no CT evidence of an acute intracranial hemorrhage, territorial infarction, midline shift, mass effect, or extra-axial collection. The hernandez-white differentiation remains preserved and the basal cisterns are patent. Bones: The osseous structures are unremarkable without evidence of a fracture. The paranasal sinuses and mastoid air cells remain well aerated. IMPRESSION: No acute intracranial trauma Report Dictated on --- Final --- Dictated: 05/07/2021 7:37 pm Dictating Physician: MD ROSADO YUN ROBERT Signed Date and Time: 05/07/2021 7:41 pm Signed by: MD ROSADO YUN ROBERT Transcribed Date and Time: 05/07/2021 7:37 [facility] Melba Rosado - 05/07/2021 Patient Name: KATHRYN TAMEZ I Computed Tomography ACCESSION EXAM DATE/TIME PROCEDURE ORDERING PROVIDER [id number] 05/07/2021 19:[address] Head or Brain w/o [id number] -MCCARTY, Contrast JOSH CPT code 73995 Reason For Exam (CT Head or Brain w/o Contrast) Fall Report CLINICAL INDICATION: Fall COMPARISON: None Technique: Unenhanced [address] images were obtained from skull base to vertex. Images were reformatted in coronal and sagittal projections. Findings: Ventricles: Appropriate in size for the patient's age. Brain Parenchyma There is no CT evidence of an acute intracranial hemorrhage, territorial infarction, midline shift, mass effect, or extra-axial collection. The hernandez-white differentiation remains preserved and the basal cisterns are patent. Bones: The osseous structures are unremarkable without evidence of a fracture. The paranasal sinuses and mastoid air cells remain well aerated. IMPRESSION: No acute intracranial trauma Report Dictated on --- Final --- Dictated: 05/07/2021 7:37 pm Dictating Physician: MD ROSADO YUN ROBERT Signed Date and Time: 05/07/2021 7:41 pm Signed by: MD ROSADO YUN ROBERT Transcribed Date and Time: 05/07/2021 7:37 [facility] Work Phone: CT Head WO ContrastOrdered B y: Melba Rosado on 05-07-2021 [facility] Work Phone: CT Head or Brain w/o Contras ton 05-07-2021 CT Head or Brain w/o Contrast Patient Name: KATHRYN TAMEZ I Computed Tomography ACCESSION EXAM DATE/TIME PROCEDURE ORDERING PROVIDER [id number] 05/07/2021 19:[address] Head or Brain w/o [id number] -MCCARTY, Contrast JOSH CPT code 16338 Reason For Exam (CT Head or Brain w/o Contrast) Fall Report CLINICAL INDICATION: Fall COMPARISON: None Technique: Unenhanced [address] images were obtained from skull base to vertex. Images were reformatted in coronal and sagittal projections. Findings: Ventricles: Appropriate in size for the patient's age. Brain Parenchyma There is no CT evidence of an acute intracranial hemorrhage, territorial infarction, midline shift, mass effect, or extra-axial collection. The hernandez-white differentiation remains preserved and the basal cisterns are patent. Bones: The osseous structures are unremarkable without evidence of a fracture. The paranasal sinuses and mastoid air cells remain well aerated. IMPRESSION: No acute intracranial trauma Report Dictated on Final Dictated: 05/07/2021 7:37 pm Dictating Physician: MD ROSADO YUN ROBERT Signed Date and Time: 05/07/2021 7:41 pm Signed by: MD ROSADO YUN ROBERT Transcribed Date and Time: 05/07/2021 7:37 Normal [facility] CT Spine Cervical w/o Contra ston 05-07-2021 CT Spine Cervical w/o Contrast Patient [facility]: [id number] Tomography ACCESSION EXAM DATE/TIME PROCEDURE ORDERING PROVIDER [id number] 05/07/2021 19:[address] Spine Cervical w/o [id number] -MCCARTY, Contrast JOSH CPT code 77834 Reason For Exam (CT Spine Cervical w/o Contrast) Fall Report CT CERVICAL SPINE: CLINICAL INDICATION: Trauma, pain TECHNIQUE: Transaxial sequence through the cervical spine. Coronal and sagittal reconstructions included. Three dimensional volume rendered and maximum intensity projection reconstruction was performed concurrently with independent workstation software by the radiologist to better visualize the osseous structures in various orientations. COMPARISON: None FINDINGS: Cervical vertebrae, disc spaces and joints: No fracture, subluxation or other malalignment. There are multilevel degenerative changes including facet joint and uncovertebral joint hypertrophy and degenerative endplate changes with disc space narrowing. No bone lesion identified. Spinal canal: Posterior disc osteophyte complexes are present at C4-C5, C5-C6 and C6-C7 No bony encroachment upon the cervical spinal canal. Soft tissues: The left thyroid lobe is either markedly atrophic or absent. Other: Mild biapical emphysematous changes and biapical scarring. IMPRESSION: 1. No acute abnormality identified throughout the cervical spine. 2. Multilevel cervical spondylosis. 3. Biapical emphysematous changes and biapical scarring. Report Dictated on Final Dictated: 05/07/2021 7:41 pm Dictating Physician: MD LOPEZ NICHOLAS Signed Date and Time: 05/07/2021 7:47 pm Signed by: MD LOPEZ NICHOLAS Transcribed Date and Time: 05/07/2021 7:41 Normal [facility] ED Provider Noteon ED Provider Note Emergency Department Encounter [facility] EMERGENCY DEPT Patient: Kathryn Tamez : 1940 Date of Evaluation: 05/07/2021 ED Provider: MAXINE Chaidez As the [id number], I performed a medical screening history and physical exam on this patient. An N95 and gloves were worn during the entirety of this encounter. HISTORY OF PRESENT ILLNESS In brief, Kathryn Tamez is a 80 y.o. female that presents for fall, syncopal episode. Patient was at home, and walking into the kitchen, when she lost consciousness and fell forward on her right forehead, patient does not know why she fell. Patient states he thinks he lost Consciousness for a couple of seconds, is not on any blood thinners. It was a witnessed fall, patient was able to get up soon after falling. Patient denies any chest pain, lightheadedness, dizziness, shortness of breath, abdominal pain, extremity pain or extremity swelling.. PHYSICAL EXAM ED Triage Vitals Enc Vitals Group BP 05/07/211718 125/63 Pulse 05/07/211718 71 Resp 05/07/211718 18 Temp 05/07/211718 98.6 ?F (37 ?C) Temp Source 05/07/211718 Temporal SpO2 05/07/211718 95 % Weight 05/07/211715 106 lb (48.1 kg) Height 05/07/21 171 5' (1.524 m) Head Circumference -- Peak Flow -- Pain Score -- Pain Loc -- Pain Edu? -- Excl. in GC? -- On brief exam, regular heart rate and rhythm, lungs are clear to auscultation bilateral lung rothman, abdomen is soft, nontender, patient has a 4 cm hematoma right forehead, tender to palpation, with a superficial abrasion. Some mild midline neck tenderness present, no step-offs or deformities. No pain, or deformities of upper or lower extremities. We will initiate diagnostics/treatments as indicated and place in main ED as soon as available. MAXINE Chaidez [employer] [employer] MAXINE Chaidez 05/07/21 1740 Normal [facility] ED Provider Note [facility] 4N MED SURG EMERGENCY DEPARTMENT ENCOUNTER Pt Name: Kathryn Tamez Birthdate 1940 Date of evaluation: 05/07/2021 Provider: YOUSIF GALLO MD CHIEF COMPLAINT Chief Complaint Patient presents with ? Fall HISTORY OF PRESENT ILLNESS (Location/Symptom, Timing/Onset, Context/Setting, Quality, Duration, Modifying Factors, Severity) Note limiting factors. I wore a KN95 mask for the entirety of this encounter. Does this patient come from an ECF, SNF, Rehab, Penitentiary or other Congregate setting: No (If yes to above patient needs a Covid-19 test) HPI Kathryn Tamez is a 80 y.o. female who presents to the emergency department with chief complaint of fall. Patient's past medical history of GERD, hypothyroidism, depression, gastritis. Around 4:30 PM patient was walking to the family room when fell. Patient was unable to catch herself and landed on her head. It is unclear what caused her to fall she normally ambulates on her own. Does not take a blood thinner. Has abdominal pain the patient is recovering from a diarrheal illness and has not changed. Denies loss of consciousness, chest pain, shortness of breath, fevers, dysuria, lightheadedness, headache, changes in vision. Nursing Notes were reviewed. REVIEW OF SYSTEMS (2+ for level 4; 10+ for level 5) Review of Systems Constitutional: Negative for chills and fever. HENT: Positive for facial swelling. Negative for nosebleeds. Eyes: Negative for pain and visual disturbance. Respiratory: Negative for cough and shortness of breath. Cardiovascular: Negative for chest pain and palpitations. Gastrointestinal: Positive for abdominal pain. Negative for diarrhea, nausea and vomiting. Genitourinary: Negative for dysuria and flank pain. Musculoskeletal: Positive for joint swelling. Negative for back pain and neck pain. Skin: Positive for wound. Negative for rash. Neurological: Negative for syncope, facial asymmetry, speech difficulty, light-headedness and headaches. Psychiatric/Behavioral: Negative for agitation and confusion. PAST MEDICAL HISTORY Past Medical History: Diagnosis Date ? Back pain ? Depression ? Gastritis ? GERD (gastroesophageal reflux disease) ? Hypothyroid SURGICAL HISTORY Past Surgical History: Procedure Laterality Date ? BACK SURGERY 2018 ? CHOLECYSTECTOMY 1981 ? COLONOSCOPY 07/2018 ? ENDOSCOPY, COLON, DIAGNOSTIC 07/2018 EGD with biopsy ? HYSTERECTOMY 2004 ? JOINT REPLACEMENT Left left hip ? KIDNEY REMOVAL Left ? KIDNEY SURGERY Right right kideny remove, due tto cancer ? THYROIDECTOMY, PARTIAL ? TOTAL ANKLE ARTHROPLASTY Right CURRENT MEDICATIONS Current Discharge Medication List CONTINUE these medications which have NOT CHANGED Details acetaminophen (TYLENOL) 500 MG tablet Take 2 tablets by mouth 4 times daily as needed for Pain Qty: 20 tablet, Refills: 0 vitamin D (CHOLECALCIFEROL) 1000 UNIT TABS tablet Take 1 tablet by mouth daily Qty: 60 tablet, Refills: 1 pantoprazole (PROTONIX) 40 MG tablet Take 1 tablet by mouth every morning (before breakfast) Qty: 30 tablet, Refills: 0 clonazePAM (KLONOPIN) 0.5 MG tablet Take 0.5 mg by mouth daily.. gabapentin (NEURONTIN) 300 MG capsule Take 300 mg by mouth daily.. HYDROcodone-acetaminophen (NORCO) 5-325 MG per tablet Take 1 tablet by mouth 2 times daily.. levothyroxine (SYNTHROID) 88 MCG tablet Take 88 mcg by mouth sertraline (ZOLOFT) 50 MG tablet Take 50 mg by mouth ALLERGIES Patient has no known allergies. FAMILY HISTORY Family History Problem Relation Age of Onset ? Coronary Art Dis Mother ? Heart Attack Mother ? Stroke Mother ? Cancer Father unknow ? Colon Cancer Neg Hx ? Stomach Cancer Neg Hx ? Liver Cancer Neg Hx SOCIAL HISTORY Social History Socioeconomic History ? Marital status: Spouse name: None ? Number of children: None ? Years of education: None ? Highest education level: None Occupational History ? None Tobacco Use ? Smoking status: Former Smoker Packs/day: 1.00 Years: 36.00 Pack years: 36.00 Start date: 08/04/1970 Quit date: 08/04/2016 Years since quittin.7 ? Smokeless tobacco: Never Used Vaping Use ? Vaping Use: Never used Substance and Sexual Activity ? Alcohol use: No Comment: ast drinking 05/2018, no hx EtOH, never attended [facility] ? Drug use: No ? Sexual activity: Never Comment: divorce Other Topics Concern ? None Social History Narrative ? None Social Determinants of Health Financial Resource Strain: ? Difficulty of Paying Living Expenses: Not on file Food Insecurity: ? Worried About Running Out of Food in the Last Year: Not on file ? Ran Out of Food in the Last Year: Not on file Transportation Needs: ? Lack of Transportation (Medical): Not on file ? Lack of Transportation (Non-Medical): Not on file Physical Activity: ? Days of Exercise per Week: Not on file ? Minutes (more content not included)... Normal [facility] ED Provider Note Emergency Department Encounter [facility] EMERGENC[facility] DE[facility] Patient: Kathryn Tamez : 1940 Date of Evaluation: 05/07/2021 ED Supervising Physician: Brant Mckee MD I independently examined and evaluated Kathryn Tamez. In brief, Kathryn Tamez is a 80 y.o. female that presents to the emergency department after a fall. She is not on blood thinning medication. Patient is unsure of the events prior to the fall. She does deny any chest pain, back pain, shortness of breath, abdominal pain. Exam: GENERAL APPEARANCE: This patient is in no acute distress. Awake and alert. VITAL SIGNS: As per the triage vitals HEENT: Normocephalic, forehead cephalohematoma noted. Extraocular muscles are intact. NECK: Supple LUNGS: No stridor. Breathing comfortably. CARDIOVASCULAR: Regular rhythm without murmurs. ABDOMEN: Nontender, soft, nondistended, no palpable pulsatile masses. MUSCULOSKELETAL: Active range of motion. There is no clubbing, cyanosis, or edema. NEUROLOGICAL: Awake, alert and oriented x 3. PSYCH: Normal mood and affect. DERMATOLOGIC: No petechiae, rashes, or ecchymoses. Skin has normal temperature. There's no cyanosis, erythema, pallor or edema. Brief ED course/MDM: CT scan of the head unremarkable. Given the episode of syncope, will place in the hospital for further management. All diagnostic, treatment, and disposition decisions were made by myself in conjunction with the resident/KELLEY. For all further details of the patient's emergency department visit, please see their documentation. (Please note that portions of this note may have been completed with a voice recognition program. Efforts were made to edit the dictations but occasionally words are mis-transcribed.) Brant Mckee MD [employer] Brant Mckee MD 05/07/212136 Normal [facility] Hemogram (CBC) w/Auto Diffon 05-07-2021 Hematocrit (Bld) [Volume fraction] 35.9 % 35.0 - 47.0 % [facility] Hemoglobin.gastrointe stinal spec 1 Ql (Stl) 11.7 g/dL 11.7 - 16.0 g/dL [facility] Interpretation and review of laboratory results Abnormal [facility] MCH (RBC) [Entitic mass] 28.4 pg 26.0 - 34.0 pg [facility] MCHC (RBC) [Mass/Vol] 32.6 % 32.0 - 36.0 % [facility] MCV (RBC) [Entitic vol] 87.1 fL 79.0 - 98.0 fL [facility] Platelet distribution width (Bld) [Ratio] 14.8 % High 11.5 - 14.5 % [facility] Platelet mean volume (Bld) [Entitic vol] 9.8 fL 7.4 - 10.4 fL [facility] Platelets (Bld) [#/Vol] 216 10*3/uL 140 - 440 10*3/uL [facility] RBC (Bld) [#/Vol] 4.12 10*6/uL 3.80 - 5.20 10*6/uL [facility] WBC (Bld) [#/Vol] 6.7 10*3/uL 3.6 - 10.7 10*3/uL [facility] Test Performed by [facility], [address] [place] [address] LAB [facility] Hemogram w/ Autodiffon 05-07 Erythrocyte distribution width (RBC) [Ratio] 14.8 % High 11.5-14.5 [facility] Comment on above: Performed By: #### L ACT3, TSH5, BMP3, HEMOG, FT4M, TROPN, LIPA4 #### [address] Hematocrit (Bld) [Volume fraction] 35.9 % Normal 35.0-47.0 [facility] Comment on above: Performed By: #### L ACT3, TSH5, BMP3, HEMOG, FT4M, TROPN, LIPA4 #### [address] Hemoglobin (Bld) [Mass/Vol] 11.7 g/dL Normal 11.7-16.0 [facility] Comment on above: Performed By: #### L ACT3, TSH5, BMP3, HEMOG, FT4M, TROPN, LIPA4 #### [place] [address] [address] [place], [place] MCH (RBC) [Entitic mass] 28.4 pg Normal 26.0-34.0 [facility] Comment on above: Performed By: #### L ACT3, TSH5, BMP3, HEMOG, FT4M, TROPN, LIPA4 #### [place] [address] [place], [place] MCHC 32.6 % Normal 32.0-36.0 [facility] Comment on above: Performed By: #### L ACT3, TSH5, BMP3, HEMOG, FT4M, TROPN, LIPA4 #### [address] MCV (RBC) [Entitic vol] 87.1 fL Normal 79.0-98.0 [facility] Comment on above: Performed By: #### L ACT3, TSH5, BMP3, HEMOG, FT4M, TROPN, LIPA4 #### [place] [address] [place], [place] Platelet mean volume (Bld) [Entitic vol] 9.8 fL Normal 7.4-10.4 [facility] Comment on above: Performed By: #### L ACT3, TSH5, BMP3, HEMOG, FT4M, TROPN, LIPA4 #### [address] Platelets (Bld) [#/Vol] 216 10*3/uL Normal 140-440 [facility] Comment on above: Performed By: #### L ACT3, TSH5, BMP3, HEMOG, FT4M, TROPN, LIPA4 #### [address] RBC (Bld) [#/Vol] 4.12 10*6/uL Normal 3.80-5.20 [facility] Comment on above: Performed By: #### L ACT3, TSH5, BMP3, HEMOG, FT4M, TROPN, LIPA4 #### [address] WBC (Bld) [#/Vol] 6.7 10*3/uL Normal 3.6-10.7 [facility] Comment on above: Performed By: #### L ACT3, TSH5, BMP3, HEMOG, FT4M, TROPN, LIPA4 #### [place] [address] [address] [place], [place] Magnesiumon 05-07-2021 Magnesium [Mass/Vol] 2.0 mg/dL Normal 1.6-2.3 [facility] Comment on above: Performed By: #### L ACT3, TSH5, BMP3, HEMOG, FT4M, TROPN, LIPA4 #### [place] [address] [place], [place] Magnesium [Mass/Vol] 2.0 mg/dL 1.6 - 2 .3 mg/dL [facility] Manual Diffon 05-07-2021 Abs Lymph Cnt 2.1 10*3/uL Normal 1.1-4.5 [facility] Comment on above: Performed By: #### L ACT3, TSH5, BMP3, HEMOG, FT4M, TROPN, LIPA4 #### [place] [address] [address] [place], [place] Abs Monocyte Cnt 1.5 10*3/uL High 0.2-1.1 [facility] Comment on above: Performed By: #### L ACT3, TSH5, BMP3, HEMOG, FT4M, TROPN, LIPA4 #### [place] [address] [address] [place], [place] Abs Neutrophile Cnt 3.1 10*3/uL Normal 2.2-8.2 [facility] Comment on above: Performed By: #### L ACT3, TSH5, BMP3, HEMOG, FT4M, TROPN, LIPA4 #### [address] Lymphocytes 31 % Normal 20-40 [facility] Comment on above: Performed By: #### L ACT3, TSH5, BMP3, HEMOG, FT4M, TROPN, LIPA4 #### [place] [address] [address] [place], [place] Monocytes 22 % High 2-10 [facility] Comment on above: Performed By: #### L ACT3, TSH5, BMP3, HEMOG, FT4M, TROPN, LIPA4 #### [place] [address] [address] [place], [place] RBC Morphology Normal Normal [facility] Comment on above: Performed By: #### L ACT3, TSH5, BMP3, HEMOG, FT4M, TROPN, LIPA4 #### [address] [address] [address] [place], [place] Seg Neutrophils 47 % Normal 40-80 [facility] Comment on above: Performed By: #### L ACT3, TSH5, BMP3, HEMOG, FT4M, TROPN, LIPA4 #### [address] [address] [place], [place] Abs Baso Cnt 0.0 10*3/uL Normal 0.0-0.2 [facility] Comment on above: Performed By: #### L ACT3, TSH5, BMP3, HEMOG, FT4M, TROPN, LIPA4 #### [address] [address] [address] [place], [place] Abs Eosin Cnt 0.0 10*3/uL Normal 0.0-0.5 [facility] Comment on above: Performed By: #### L ACT3, TSH5, BMP3, HEMOG, FT4M, TROPN, LIPA4 #### [address] [address] [address] [place], [place] Bands 0 % Normal 0-3 [facility] Comment on above: Performed By: #### L ACT3, TSH5, BMP3, HEMOG, FT4M, TROPN, LIPA4 #### [address] [address] [address] [place], [place] Basophils 0 % Normal 0-2 [facility] Comment on above: Performed By: #### L ACT3, TSH5, BMP3, HEMOG, FT4M, TROPN, LIPA4 #### [address] [address] [place] [address] Cells counted 100 [facility] Comment on above: Performed By: #### L ACT3, TSH5, BMP3, HEMOG, FT4M, TROPN, LIPA4 #### [address] [address] Eosinophils 0 % Low 1-6 [facility] Comment on above: Performed By: #### L ACT3, TSH5, BMP3, HEMOG, FT4M, TROPN, LIPA4 #### [address] [address] Manual Differentialon 2020 Absolute Baso # 0.0 10*3/uL 0.0 - 0.2 10*3/uL [facility] Absolute Eos # 0.0 10*3/uL 0.0 - 0.5 10*3/uL [facility] Absolute Lymph # 2.1 10*3/uL 1.1 - 4.5 10*3/uL [facility] Absolute [place] # 1.5 10*3/uL High 0.2 - 1.1 10*3/uL [facility] Absolute Neut # 3.1 10*3/uL 2.2 - 8.2 10*3/uL [facility] Bands 0 % 0 - 3 % [facility] Basophils/100 WBC (Bld) 0 % 0 - 2 % [facility] Eosinophils/100 WBC (Bld) 0 % Low 1 - 6 % [facility] Interpretation and review of laboratory results Abnormal [facility] Lymphocytes/100 WBC (Bld) 31 % 20 - 40 % [facility] Monocytes/100 WBC (Bld) 22 % High 2 - 10 % [facility] RBC (Bld) [#/Vol] Normal [facility] Seg Neutrophils 47 % 40 - 80 % [facility] TOTAL CELLS COUNTED 100 [facility] No Panel Informationon 05-07 Test Performed by [facility], [address] [place] [id number] [place] [address] LAB [facility] Test Performed by [facility], [address] [place] [id number] [place] [address] LAB [facility] Radiology Study observation (narrative) [facility] Work Phone: Troponin Ion 05-07-2021 Troponin I.cardiac [Mass/Vol] ng/mL Normal 0.000-0.03 4 [facility] Comment on above: Result Comment: . Performed By: #### L ACT3, TSH5, BMP3, HEMOG, FT4M, TROPN, LIPA4 #### [facility] [address] [place] [address] Troponin x1on 05-07-2021 Troponin I.cardiac [Mass/Vol] ng/mL 0.000 - 0.034 ng/mL [facility] Comment on above: . XR CHEST PORTABLEon 05-07-20 Patient Name: KATHRYN MCINTOSH I Diagnostic Radiology ACCESSION EXAM DATE/TIME PROCEDURE ORDERING PROVIDER [id number] 05/07/2021 18:54 EST CR Chest Portable [id number] SÁNCHEZ CPT code 48729 Reason For Exam (CR Chest Portable) Syncope Report CHEST: CLINICAL INDICATION: Syncope TECHNIQUE: AP portable chest COMPARISON: 08/03/2018 FINDINGS: Support devices: None The cardiomediastinal silhouette appears unchanged from the prior exam. There are coarse interstitial markings likely related to chronic pulmonary disease. No consolidation or pulmonary edema. There is no sizable pleural effusion. The osseous structures are unremarkable. IMPRESSION: Coarse interstitial markings likely related to chronic pulmonary disease. No consolidation or pulmonary edema. Report Dictated on --- Final --- Dictated: 05/07/2021 6:41 pm Dictating Physician: MD LOPEZ NICHOLAS Signed Date and Time: 05/07/2021 6:53 pm Signed by: MD LOPEZ NICHOLAS Transcribed Date and Time: 05/07/2021 6:43 [facility] Aaron Lopez MD - 05/07/2021 Patient Name: KATHRYN TAMEZ I Diagnostic Radiology ACCESSION EXAM DATE/TIME PROCEDURE ORDERING PROVIDER [id number] 05/07/2021 18:54 EST CR Chest Portable [id number] BROWN CPT code 45506 Reason For Exam (CR Chest Portable) Syncope Report CHEST: CLINICAL INDICATION: Syncope TECHNIQUE: AP portable chest COMPARISON: 08/03/2018 FINDINGS: Support devices: None The cardiomediastinal silhouette appears unchanged from the prior exam. There are coarse interstitial markings likely related to chronic pulmonary disease. No consolidation or pulmonary edema. There is no sizable pleural effusion. The osseous structures are unremarkable. IMPRESSION: Coarse interstitial markings likely related to chronic pulmonary disease. No consolidation or pulmonary edema. Report Dictated on --- Final --- Dictated: 05/07/2021 6:41 pm Dictating Physician: MD LOPEZ NICHOLAS Signed Date and Time: 05/07/2021 6:53 pm Signed by: MD LOPEZ NICHOLAS Transcribed Date and Time: 05/07/2021 6:43 [facility] Work Phone: XR CHEST PORTABLEOrdered By: Aaron Lopez on 05-07-2021 [facility] Work Phone: XR KNEE LEFT (3 VIEWS)on Patient Name: KATHRYN MCINTOSH I Diagnostic Radiology ACCESSION EXAM DATE/TIME PROCEDURE ORDERING PROVIDER [id number] 05/07/2021 20:27 EST CR Knee 3 Views Left [id number] -YOUSIF GALLO CPT code 18301 Reason For Exam (CR Knee 3 Views Left) knee swelling s/p fall Report LEFT KNEE: CLINICAL INDICATION: Swelling after fall. TECHNIQUE: AP, lateral and tunnel COMPARISON: 06/25/2014 FINDINGS: There is no evidence for fracture or subluxation. Redemonstration of postsurgical changes in the left knee with longstem femoral and tibial components. There is no joint effusion. No bone lesion is identified. There is no other soft tissue abnormality. Report Dictated on --- Final --- Dictated: 05/07/2021 8:24 pm Dictating Physician: MD LOPEZ NICHOLAS Signed Date and Time: 05/07/2021 8:24 pm Signed by: MD LOPEZ NICHOLAS Transcribed Date and Time: 05/07/2021 8:24 [facility] Aaron Lopez MD - 05/07/2021 Patient [id number] Diagnostic Radiology ACCESSION EXAM DATE/TIME PROCEDURE ORDERING PROVIDER [id number] 05/07/2021 20:27 EST CR Knee 3 Views Left [id number] -CONSSANGEETHA, YOUSIF CPT code 23699 Reason For Exam (CR Knee 3 Views Left) knee swelling s/p fall Report LEFT KNEE: CLINICAL INDICATION: Swelling after fall. TECHNIQUE: AP, lateral and tunnel COMPARISON: 06/25/2014 FINDINGS: There is no evidence for fracture or subluxation. Redemonstration of postsurgical changes in the left knee with longstem femoral and tibial components. There is no joint effusion. No bone lesion is identified. There is no other soft tissue abnormality. Report Dictated on --- Final --- Dictated: 05/07/2021 8:24 pm Dictating Physician: MD LOPEZ NICHOLAS Signed Date and Time: 05/07/2021 8:24 pm Signed by: MD LOPEZ NICHOLAS Transcribed Date and Time: 05/07/2021 8:24 [facility] Work Phone: [facility] Work Phone: Radiology Study observation (narrative) [facility] Work Phone: Basic Metabolic Panelon 11 Calcium [Mass/Vol] 7.7 mg/dL Low 8.4-10.4 [facility] Comment on above: Performed By: #### L ACT3, TSH5, BMP3, HEMOG, FT4M, TROPN, LIPA4 #### [facility] [address] [place] [address] Anion gap [Moles/Vol] 4 mmol/L Normal 3-13 [facility] Comment on above: Performed By: #### L ACT3, TSH5, BMP3, HEMOG, FT4M, TROPN, LIPA4 #### [facility] [address] [place] [address] CO2 [Moles/Vol] 28 mmol/L Normal 22-30 [facility] Comment on above: Performed By: #### L ACT3, TSH5, BMP3, HEMOG, FT4M, TROPN, LIPA4 #### [address] [address] Creatinine [Mass/Vol] 0.56 mg/dL Normal 0.52-1.25 [facility] Comment on above: Performed By: #### L ACT3, TSH5, BMP3, HEMOG, FT4M, TROPN, LIPA4 #### [address] [address] GFR/1.73 sq M.predicted among blacks MDRD (S/P/Bld) [Vol rate/Area] mL/min/{1.73_m2} Normal >60 [facility] Comment on above: Performed By: #### L ACT3, TSH5, BMP3, HEMOG, FT4M, TROPN, LIPA4 #### [address] [address] GFR/1.73 sq M.predicted among non-blacks MDRD (S/P/Bld) [Vol rate/Area] 87.6 mL/min/{1.73_m2} Normal >60 [facility] Comment on above: Result Comment: KDIG O guidelines provide the following GFR categories: Stage GFR(ml/min/1.73 m2) Terms G1 >=90 Normal or high G2 60-89 Mildly decreased* G3a 45-59 Mildly to moderately decreased G3b 30-44 Moderately to severely decreased G4 15-29 Severely decreased G5 <15 Kidney failure *Relative to young adult level. In the absence of evidence of kidney damage, neither GFR category G1 nor G2 fulfill the criteria for CKD. The CKD-EPI equation is validated in individuals 18 years of age and older. Currently the best equation for estimating glomerular filtration rate (GFR) from serum creatinine in children is the Bedside De Leon equation. It is less accurate in patients with extremes of muscle mass, restriction of dietary protein, ingestion of creatine, extra-renal metabolism of creatinine, or treatment with medications that affect renal tubular creatinine secretion. Performed By: #### L ACT3, TSH5, BMP3, HEMOG, FT4M, TROPN, LIPA4 #### [address] [address] [address] [place], [place] Glucose [Mass/Vol] 92 mg/dL Normal 70-100 [facility] Comment on above: Performed By: #### L ACT3, TSH5, BMP3, HEMOG, FT4M, TROPN, LIPA4 #### [address] [address] [address] [place], [place] Urea nitrogen [Mass/Vol] 5 mg/dL Low 9-20 [facility] Comment on above: Performed By: #### L ACT3, TSH5, BMP3, HEMOG, FT4M, TROPN, LIPA4 #### [address] [address] [address] [place], [place] Chloride [Moles/Vol] 110 mmol/L High 98-107 [facility] Comment on above: Performed By: #### L ACT3, TSH5, BMP3, HEMOG, FT4M, TROPN, LIPA4 #### [address] [address] [address] [place], [place] Potassium [Moles/Vol] 3.2 mmol/L Low 3.5-5.1 [facility] Comment on above: Performed By: #### L ACT3, TSH5, BMP3, HEMOG, FT4M, TROPN, LIPA4 #### [address] [address] [address] [place], [place] Sodium [Moles/Vol] 142 mmol/L Normal 135-145 [facility] Comment on above: Performed By: #### L ACT3, TSH5, BMP3, HEMOG, FT4M, TROPN, LIPA4 #### [address] [address] [address] [place], [place] Basic Metabolic Panel w/ Ref sigifredo to MGon 04-26-2021 Anion gap [Moles/Vol] 4 mmol/L 3 - 13 mmol/L [facility] Work Phone: Calcium [Mass/Vol] 7.7 mg/dL Low 8.4 - 10. 4 mg/dL [facility] Work Phone: Chloride [Moles/Vol] 110 mmol/L High 98 - 10 7 mmol/L [facility] Work Phone: [phone] CO2 [Moles/Vol] 28 mmol/L 22 - 30 mmol/L [facility] Work Phone: [phone] Creatinine [Mass/Vol] 0.56 mg/dL 0.52 - 1.25 mg/dL [facility] Work Phone: [phone] EGFR IF NonAfrican [place] 87.6 mL/min >60 [facility] Work Phone: [phone] Comment on above: KDIGO guidelines pro vide the following GFR categories: Stage GFR(ml/min/1.73 m2) Terms G1 >=90 Normal or high G2 60-89 Mildly decreased* G3a 45-59 Mildly to moderately decreased G3b 30-44 Moderately to severely decreased G4 15-29 Severely decreased G5 <15 Kidney failure *Relative to young adult level. In the absence of evidence of kidney damage, neither GFR category G1 nor G2 fulfill the criteria for CKD. The CKD-EPI equation is validated in individuals 18 years of age and older. Currently the best equation for estimating glomerular filtration rate (GFR) from serum creatinine in children is the Bedside De Leon equation. It is less accurate in patients with extremes of muscle mass, restriction of dietary protein, ingestion of creatine, extra-renal metabolism of creatinine, or treatment with medications that affect renal tubular creatinine secretion. GFR/1.73 sq M.predicted among blacks MDRD (S/P/Bld) [Vol rate/Area] mL/min/{1.73_m2} >60 mL/min [facility] Work Phone: [phone] Glucose [Mass/Vol] 92 mg/dL 70 - 100 mg/dL [facility] Work Phone: [phone] Interpretation and review of laboratory results Abnormal [facility] Work Phone: [phone] Potassium [Moles/Vol] 3.2 mmol/L Low 3.5 - 5.1 mmol/L [facility] Work Phone: [phone] Sodium [Moles/Vol] 142 mmol/L 135 - 145 mmol/L [facility] Work Phone: [phone] Urea nitrogen (BldV) [Mass/Vol] 5 mg/dL Low 9 - 20 mg/dL [facility] Work Phone: [phone] Test Performed by [facility] [address] [address] [facility] Work Phone: Magnesiumon 04-26-2021 Magnesium [Mass/Vol] 1.5 mg/dL Low 1.6-2.3 [facility] Comment on above: Performed By: #### L ACT3, TSH5, BMP3, HEMOG, FT4M, TROPN, LIPA4 #### [address] Interpretation and review of laboratory results Abnormal [facility] Work Phone: [phone] Magnesium [Mass/Vol] 1.5 mg/dL Low 1.6 - 2 .3 mg/dL [facility] Work Phone: [phone] Test Performed by [facility], [address] [place] [id number] [place] [address] - [facility] Work Phone: Basic Metabolic Panelon 04-11 Calcium [Mass/Vol] 8.1 mg/dL Low 8.4-10.4 [facility] Comment on above: Performed By: #### L ACT3, TSH5, BMP3, HEMOG, FT4M, TROPN, LIPA4 #### [address] Glucose [Mass/Vol] 98 mg/dL Normal 70-100 [facility] Comment on above: Performed By: #### L ACT3, TSH5, BMP3, HEMOG, FT4M, TROPN, LIPA4 #### [address] Anion gap [Moles/Vol] 6 mmol/L Normal 3-13 [facility] Comment on above: Performed By: #### L ACT3, TSH5, BMP3, HEMOG, FT4M, TROPN, LIPA4 #### [address] CO2 [Moles/Vol] 20 mmol/L Low 22-30 [facility] Comment on above: Performed By: #### L ACT3, TSH5, BMP3, HEMOG, FT4M, TROPN, LIPA4 #### [facility] [address] [place], [place] Creatinine [Mass/Vol] 0.61 mg/dL Normal 0.52-1.25 [facility] Comment on above: Performed By: #### L ACT3, TSH5, BMP3, HEMOG, FT4M, TROPN, LIPA4 #### [facility] [address] [place], [place] GFR/1.73 sq M.predicted among blacks MDRD (S/P/Bld) [Vol rate/Area] mL/min/{1.73_m2} Normal >60 [facility] Comment on above: Performed By: #### L ACT3, TSH5, BMP3, HEMOG, FT4M, TROPN, LIPA4 #### [address] [address] [place], [place] GFR/1.73 sq M.predicted among non-blacks MDRD (S/P/Bld) [Vol rate/Area] 85.1 mL/min/{1.73_m2} Normal >60 [facility] Comment on above: Result Comment: KDIG O guidelines provide the following GFR categories: Stage GFR(ml/min/1.73 m2) Terms G1 >=90 Normal or high G2 60-89 Mildly decreased* G3a 45-59 Mildly to moderately decreased G3b 30-44 Moderately to severely decreased G4 15-29 Severely decreased G5 <15 Kidney failure *Relative to young adult level. In the absence of evidence of kidney damage, neither GFR category G1 nor G2 fulfill the criteria for CKD. The CKD-EPI equation is validated in individuals 18 years of age and older. Currently the best equation for estimating glomerular filtration rate (GFR) from serum creatinine in children is the Bedside De Leon equation. It is less accurate in patients with extremes of muscle mass, restriction of dietary protein, ingestion of creatine, extra-renal metabolism of creatinine, or treatment with medications that affect renal tubular creatinine secretion. Performed By: #### L ACT3, TSH5, BMP3, HEMOG, FT4M, TROPN, LIPA4 #### [facility] [address] [place], [place] Urea nitrogen [Mass/Vol] 4 mg/dL Low 9-20 [facility] Comment on above: Performed By: #### L ACT3, TSH5, BMP3, HEMOG, FT4M, TROPN, LIPA4 #### [address] [address] [place] [address] Chloride [Moles/Vol] 112 mmol/L High 98-107 [facility] Work Phone: [phone] Comment on above: Performed By: #### L ACT3, TSH5, BMP3, HEMOG, FT4M, TROPN, LIPA4 #### [address] [address] [place] [address] Potassium [Moles/Vol] 3.6 mmol/L Normal 3.5-5.1 [facility] Work Phone: [phone] Comment on above: Performed By: #### L ACT3, TSH5, BMP3, HEMOG, FT4M, TROPN, LIPA4 #### [address] [address] [place] [address] Sodium [Moles/Vol] 138 mmol/L Normal 135-145 [facility] Work Phone: [phone] Comment on above: Performed By: #### L ACT3, TSH5, BMP3, HEMOG, FT4M, TROPN, LIPA4 #### [address] [address] [place] [address] Anion gap [Moles/Vol] 6 mmol/L 3 - 13 mmol/L [facility] Work Phone: [phone] Calcium [Mass/Vol] 8.1 mg/dL Low 8.4 - 10. 4 mg/dL [facility] Work Phone: [phone] CO2 [Moles/Vol] 20 mmol/L Low 22 - 30 mmol/L [facility] Work Phone: [phone] Creatinine [Mass/Vol] 0.61 mg/dL 0.52 - 1.25 mg/dL [facility] Work Phone: [phone] IF NonAfrican [place] 85.1 mL/min >60 [facility] Work Phone: [phone] Comment on above: KDIGO guidelines pro vide the following GFR categories: Stage GFR(ml/min/1.73 m2) Terms G1 >=90 Normal or high G2 60-89 Mildly decreased* G3a 45-59 Mildly to moderately decreased G3b 30-44 Moderately to severely decreased G4 15-29 Severely decreased G5 <15 Kidney failure *Relative to young adult level. In the absence of evidence of kidney damage, neither GFR category G1 nor G2 fulfill the criteria for CKD. The CKD-EPI equation is validated in individuals 18 years of age and older. Currently the best equation for estimating glomerular filtration rate (GFR) from serum creatinine in children is the Bedside De Leon equation. It is less accurate in patients with extremes of muscle mass, restriction of dietary protein, ingestion of creatine, extra-renal metabolism of creatinine, or treatment with medications that affect renal tubular creatinine secretion. GFR/1.73 sq M.predicted among blacks MDRD (S/P/Bld) [Vol rate/Area] mL/min/{1.73_m2} >60 mL/min [facility] Work Phone: Glucose [Mass/Vol] 98 mg/dL 70 - 100 mg/dL [facility] Work Phone: Interpretation and review of laboratory results Abnormal [facility] Work Phone: Urea nitrogen (BldV) [Mass/Vol] 4 mg/dL Low 9 - 20 mg/dL [facility] Phone: Test Performed by [facility], [address] [place] [address] [id number] [facility] Work Phone: CULTURE URINEon 04-23-2021 CULTURE URINE 1 Organism Escherich ia coli >100,000 CFU/ml -- 1 Organism -- Antibiotic Result Intrp -- Ampicillin(FARRAH) <= 2 S Cefazolin(FARRAH) <= 4 S Ceftriaxone(FARRAH) <= 1 S Cefepime(FARRAH) <= 1 S Aztreonam(FARRAH) <= 1 S Amoxicillin/Clavulanic Acid(FARRAH) <= 2 S Ampicillin/Sulbactam(FARRAH) <= 2 S Pip/Tazobactam(FARRAH) <= 4 S Meropenem(FARRAH) <= 0.25 S Ciprofloxacin(FARRAH) <= 0.25 S Trimeth/Sulfa(FARRAH) <= 20 S Nitrofurantoin(FARRAH) <= 16 S Gentamicin(FARRAH) <= 1 S Amikacin(FARRAH) <= 2 S Normal [facility] Comment on above: Performed By: #### L ACT3, TSH5, BMP3, HEMOG, FT4M, TROPN, LIPA4 #### [address] [address] Culture, Urineon 04-23-2021 Bacteria identified Cx Nom (U) Escherichia coli Abnormal [facility] Bacteria identified Cx Nom (U) >100,000 CFU/ml [facility] Interpretation and review of laboratory results Abnormal [facility] Test Performed by [facility], [address] [place] [address] LAB [facility] Potassiumon 04-23-2021 Potassium [Moles/Vol] 3.4 mmol/L Low 3.5-5.1 [facility] Comment on above: Performed By: #### L ACT3, TSH5, BMP3, HEMOG, FT4M, TROPN, LIPA4 #### [address] [address] Interpretation and review of laboratory results Abnormal [facility] Work Phone: Potassium [Moles/Vol] 3.4 mmol/L Low 3.5 - 5.1 mmol/L [facility] Work Phone: Test Performed by [facility], [address] [place] [id number] [place] [address] LAB [facility] Work Phone: CBCon 04-22-2021 Hemoglobin.gastrointe stinal spec 1 Ql (Stl) 12.5 g/dL 11.7 - 16.0 g/dL [facility] MCHC (RBC) [Mass/Vol] 32.5 % 32.0 - 36.0 % [facility] Platelet distribution width (Bld) [Ratio] 14.3 % 11.5 - 14.5 % [facility] Test Performed by [facility], [address] [place] [address] [facility] Comp Panel with Mg Reflexon 04-22-2021 ALP [Catalytic activity/Vol] 66 U/L Normal 38-126 [facility] Comment on above: Performed By: #### L ACT3, TSH5, BMP3, HEMOG, FT4M, TROPN, LIPA4 #### [address] ALT [Catalytic activity/Vol] 11 U/L Normal 0-34 [facility] Comment on above: Result Comment: The ALT test is performed by an updated assay method. Please note that the reference intervals have been changed and are now sex specific. Performed By: #### L ACT3, TSH5, BMP3, HEMOG, FT4M, TROPN, LIPA4 #### [address] AST [Catalytic activity/Vol] 24 U/L Normal 15-46 [facility] Comment on above: Performed By: #### L ACT3, TSH5, BMP3, HEMOG, FT4M, TROPN, LIPA4 #### [address] Calcium [Mass/Vol] 8.4 mg/dL Normal 8.4-10.4 [facility] Comment on above: Performed By: #### L ACT3, TSH5, BMP3, HEMOG, FT4M, TROPN, LIPA4 #### [address] Glucose [Mass/Vol] 77 mg/dL Normal 70-100 [facility] Comment on above: Performed By: #### L ACT3, TSH5, BMP3, HEMOG, FT4M, TROPN, LIPA4 #### [address] [address] [place], [place] Protein [Mass/Vol] 6.5 g/dL Normal 6.3-8.2 [facility] Comment on above: Performed By: #### L ACT3, TSH5, BMP3, HEMOG, FT4M, TROPN, LIPA4 #### [address] [address] [place], [place] Urea nitrogen [Mass/Vol] 11 mg/dL Normal 9-20 [facility] Comment on above: Performed By: #### L ACT3, TSH5, BMP3, HEMOG, FT4M, TROPN, LIPA4 #### [address] Anion gap [Moles/Vol] 11 mmol/L Normal 3-13 [facility] Comment on above: Performed By: #### L ACT3, TSH5, BMP3, HEMOG, FT4M, TROPN, LIPA4 #### [address] Bilirubin [Mass/Vol] 0.5 mg/dL Normal 0.2-1.3 [facility] Comment on above: Performed By: #### L ACT3, TSH5, BMP3, HEMOG, FT4M, TROPN, LIPA4 #### [address] [address] [place], [place] CO2 [Moles/Vol] 16 mmol/L Low 22-30 [facility] Comment on above: Performed By: #### L ACT3, TSH5, BMP3, HEMOG, FT4M, TROPN, LIPA4 #### [address] Creatinine [Mass/Vol] 0.73 mg/dL Normal 0.52-1.25 [facility] Comment on above: Performed By: #### L ACT3, TSH5, BMP3, HEMOG, FT4M, TROPN, LIPA4 #### [address] [place] [address] GFR/1.73 sq M.predicted among blacks MDRD (S/P/Bld) [Vol rate/Area] 89.6 mL/min/{1.73_m2} Normal >60 [facility] Comment on above: Performed By: #### L ACT3, TSH5, BMP3, HEMOG, FT4M, TROPN, LIPA4 #### [address] [address] [place] [address] GFR/1.73 sq M.predicted among non-blacks MDRD (S/P/Bld) [Vol rate/Area] 77.3 mL/min/{1.73_m2} Normal >60 [facility] Comment on above: Result Comment: KDIG O guidelines provide the following GFR categories: Stage GFR(ml/min/1.73 m2) Terms G1 >=90 Normal or high G2 60-89 Mildly decreased* G3a 45-59 Mildly to moderately decreased G3b 30-44 Moderately to severely decreased G4 15-29 Severely decreased G5 <15 Kidney failure *Relative to young adult level. In the absence of evidence of kidney damage, neither GFR category G1 nor G2 fulfill the criteria for CKD. The CKD-EPI equation is validated in individuals 18 years of age and older. Currently the best equation for estimating glomerular filtration rate (GFR) from serum creatinine in children is the Bedside De Leon equation. It is less accurate in patients with extremes of muscle mass, restriction of dietary protein, ingestion of creatine, extra-renal metabolism of creatinine, or treatment with medications that affect renal tubular creatinine secretion. Performed By: #### L ACT3, TSH5, BMP3, HEMOG, FT4M, TROPN, LIPA4 #### [address] Albumin [Mass/Vol] 4.0 g/dL Normal 3.5-5.0 [facility] Comment on above: Performed By: #### L ACT3, TSH5, BMP3, HEMOG, FT4M, TROPN, LIPA4 #### [address] Chloride [Moles/Vol] 112 mmol/L High 98-107 [facility] Comment on above: Performed By: #### L ACT3, TSH5, BMP3, HEMOG, FT4M, TROPN, LIPA4 #### [address] [address] [place] Potassium [Moles/Vol] 3.1 mmol/L Low 3.5-5.1 [facility] Comment on above: Performed By: #### L ACT3, TSH5, BMP3, HEMOG, FT4M, TROPN, LIPA4 #### [facility] [address], [place] Sodium [Moles/Vol] 139 mmol/L Normal 135-145 [facility] Comment on above: Performed By: #### L ACT3, TSH5, BMP3, HEMOG, FT4M, TROPN, LIPA4 #### [place] [address], [place] Comprehensive Metabolic Pane l w/ Reflex to MGon 04-22-2021 Albumin [Mass/Vol] 4.0 g/dL 3.5 - 5.0 g/dL [facility] ALP (Bld) [Catalytic activity/Vol] 66 U/L 38 - 126 U/L [facility] ALT [Catalytic activity/Vol] 11 U/L 0 - 34 U/L [facility] Comment on above: The ALT test is perf ormed by an updated assay method. Please note that the reference intervals have been changed and are now sex specific. Anion gap [Moles/Vol] 11 mmol/L 3 - 13 mmol/L [facility] AST [Catalytic activity/Vol] 24 U/L 15 - 46 U/L [facility] Bilirubin [Mass/Vol] 0.5 mg/dL 0.2 - 1 .3 mg/dL [facility] Calcium [Mass/Vol] 8.4 mg/dL 8.4 - 10. 4 mg/dL [facility] Chloride [Moles/Vol] 112 mmol/L High 98 - 10 7 mmol/L [facility] CO2 [Moles/Vol] 16 mmol/L Low 22 - 30 mmol/L [facility] Creatinine [Mass/Vol] 0.73 mg/dL 0.52 - 1.25 mg/dL [facility] EGFR IF NonAfrican [place] 77.3 mL/min >60 [facility] Comment on above: KDIGO guidelines pro vide the following GFR categories: Stage GFR(ml/min/1.73 m2) Terms G1 >=90 Normal or high G2 60-89 Mildly decreased* G3a 45-59 Mildly to moderately decreased G3b 30-44 Moderately to severely decreased G4 15-29 Severely decreased G5 <15 Kidney failure *Relative to young adult level. In the absence of evidence of kidney damage, neither GFR category G1 nor G2 fulfill the criteria for CKD. The CKD-EPI equation is validated in individuals 18 years of age and older. Currently the best equation for estimating glomerular filtration rate (GFR) from serum creatinine in children is the Bedside De Leon equation. It is less accurate in patients with extremes of muscle mass, restriction of dietary protein, ingestion of creatine, extra-renal metabolism of creatinine, or treatment with medications that affect renal tubular creatinine secretion. Free PSA/Total PSA [Mass fraction] 6.5 g/dL 6.3 - 8.2 g/dL [facility] GFR/1.73 sq M.predicted among blacks MDRD (S/P/Bld) [Vol rate/Area] 89.6 mL/min/{1.73_m2} >60 [facility] Glucose [Mass/Vol] 77 mg/dL 70 - 100 mg/dL [facility] Interpretation and review of laboratory results Abnormal [facility] Potassium [Moles/Vol] 3.1 mmol/L Low 3.5 - 5.1 mmol/L [facility] Sodium [Moles/Vol] 139 mmol/L 135 - 145 mmol/L [facility] Urea nitrogen (BldV) [Mass/Vol] 11 mg/dL 9 - 20 mg/dL [facility] Test Performed by [facility], [address] [place] [address] LAB [facility] 04-22-2021 Erythrocyte distribution width (RBC) [Ratio] 14.3 % Normal 11.5-14.5 [facility] Comment on above: Performed By: #### L ACT3, TSH5, BMP3, HEMOG, FT4M, TROPN, LIPA4 #### [address] [address] Hemoglobin (Bld) [Mass/Vol] 12.5 g/dL Normal 11.7-16.0 [facility] Comment on above: Performed By: #### L ACT3, TSH5, BMP3, HEMOG, FT4M, TROPN, LIPA4 #### [address] MCHC 32.5 % Normal 32.0-36.0 [facility] Comment on above: Performed By: #### L ACT3, TSH5, BMP3, HEMOG, FT4M, TROPN, LIPA4 #### [address] Hematocrit (Bld) [Volume fraction] 38.5 % Normal 35.0-47.0 [facility] Comment on above: Performed By: #### L ACT3, TSH5, BMP3, HEMOG, FT4M, TROPN, LIPA4 #### [address] MCH (RBC) [Entitic mass] 28.4 pg Normal 26.0-34.0 [facility] Comment on above: Performed By: #### L ACT3, TSH5, BMP3, HEMOG, FT4M, TROPN, LIPA4 #### [address] MCV (RBC) [Entitic vol] 87.5 fL Normal 79.0-98.0 [facility] Comment on above: Performed By: #### L ACT3, TSH5, BMP3, HEMOG, FT4M, TROPN, LIPA4 #### [address] Platelet mean volume (Bld) [Entitic vol] 9.7 fL Normal 7.4-10.4 [facility] Comment on above: Performed By: #### L ACT3, TSH5, BMP3, HEMOG, FT4M, TROPN, LIPA4 #### [address] Platelets (Bld) [#/Vol] 167 10*3/uL Normal 140-440 [facility] Comment on above: Performed By: #### L ACT3, TSH5, BMP3, HEMOG, FT4M, TROPN, LIPA4 #### [address] RBC (Bld) [#/Vol] 4.40 10*6/uL Normal 3.80-5.20 [facility] Comment on above: Performed By: #### L ACT3, TSH5, BMP3, HEMOG, FT4M, TROPN, LIPA4 #### [address] WBC (Bld) [#/Vol] 8.3 10*3/uL Normal 3.6-10.7 [facility] Comment on above: Performed By: #### L ACT3, TSH5, BMP3, HEMOG, FT4M, TROPN, LIPA4 #### [address] Magnesiumon 04-22-2021 Magnesium [Mass/Vol] 1.9 mg/dL Normal 1.6-2.3 [facility] Comment on above: Performed By: #### L ACT3, TSH5, BMP3, HEMOG, FT4M, TROPN, LIPA4 #### [address] Magnesium [Mass/Vol] 1.9 mg/dL 1.6 - 2 .3 mg/dL [facility] Test Performed by [address] LAB [facility] Add On Lab Teston 04-21-2021 Add On Accepted [facility] Comment on above: Specimen available & acceptable for analysis. Test Performed by [id number] [place] [address] LAB [facility] Add On Accepted [facility] Comment on above: Specimen available & acceptable for analysis. Test Performed by [id number] [place] [address] LAB [facility] Add on test from HISon 04-21 Add on test from HIS Accepted Normal [facility] Comment on above: Result Comment: Spec imen available & acceptable for analysis. Performed By: #### L ACT3, TSH5, BMP3, HEMOG, FT4M, TROPN, LIPA4 #### [place] [address] Add on test from HIS Accepted Normal [facility] Comment on above: Result Comment: Spec imen available & acceptable for analysis. Performed By: #### A DDON #### [place] [address], [place] Basic Metabolic Panelon 11- Calcium [Mass/Vol] 8.9 mg/dL Normal 8.4-10.4 [facility] Comment on above: Performed By: #### L ACT3, TSH5, BMP3, HEMOG, FT4M, TROPN, LIPA4 #### [place] [address], [place] Glucose [Mass/Vol] 109 mg/dL High 70-100 [facility] Comment on above: Performed By: #### L ACT3, TSH5, BMP3, HEMOG, FT4M, TROPN, LIPA4 #### [place] [address], [place] Anion gap [Moles/Vol] 11 mmol/L Normal 3-13 [facility] Comment on above: Performed By: #### L ACT3, TSH5, BMP3, HEMOG, FT4M, TROPN, LIPA4 #### [place] [address], [place] CO2 [Moles/Vol] 22 mmol/L Normal 22-30 [facility] Comment on above: Performed By: #### L ACT3, TSH5, BMP3, HEMOG, FT4M, TROPN, LIPA4 #### [place] [address], [place] Creatinine [Mass/Vol] 0.82 mg/dL Normal 0.52-1.25 [facility] Comment on above: Performed By: #### L ACT3, TSH5, BMP3, HEMOG, FT4M, TROPN, LIPA4 #### [place] [address] [place], [place] GFR/1.73 sq M.predicted among blacks MDRD (S/P/Bld) [Vol rate/Area] 77.9 mL/min/{1.73_m2} Normal >60 [facility] Comment on above: Performed By: #### L ACT3, TSH5, BMP3, HEMOG, FT4M, TROPN, LIPA4 #### [address] [address] GFR/1.73 sq M.predicted among non-blacks MDRD (S/P/Bld) [Vol rate/Area] 67.2 mL/min/{1.73_m2} Normal >60 [facility] Comment on above: Result Comment: KDIG O guidelines provide the following GFR categories: Stage GFR(ml/min/1.73 m2) Terms G1 >=90 Normal or high G2 60-89 Mildly decreased* G3a 45-59 Mildly to moderately decreased G3b 30-44 Moderately to severely decreased G4 15-29 Severely decreased G5 <15 Kidney failure *Relative to young adult level. In the absence of evidence of kidney damage, neither GFR category G1 nor G2 fulfill the criteria for CKD. The CKD-EPI equation is validated in individuals 18 years of age and older. Currently the best equation for estimating glomerular filtration rate (GFR) from serum creatinine in children is the Bedside De Leon equation. It is less accurate in patients with extremes of muscle mass, restriction of dietary protein, ingestion of creatine, extra-renal metabolism of creatinine, or treatment with medications that affect renal tubular creatinine secretion. Performed By: #### L ACT3, TSH5, BMP3, HEMOG, FT4M, TROPN, LIPA4 #### [address] Urea nitrogen [Mass/Vol] 18 mg/dL Normal 9-20 [facility] Comment on above: Performed By: #### L ACT3, TSH5, BMP3, HEMOG, FT4M, TROPN, LIPA4 #### [place] [address] [place], [place] Chloride [Moles/Vol] 106 mmol/L Normal 98-107 [facility] Comment on above: Performed By: #### L ACT3, TSH5, BMP3, HEMOG, FT4M, TROPN, LIPA4 #### [address] Potassium [Moles/Vol] 3.7 mmol/L Normal 3.5-5.1 [facility] Comment on above: Performed By: #### L ACT3, TSH5, BMP3, HEMOG, FT4M, TROPN, LIPA4 #### [facility] [address] [place] [address] Sodium [Moles/Vol] 139 mmol/L Normal 135-145 [facility] Comment on above: Performed By: #### L ACT3, TSH5, BMP3, HEMOG, FT4M, TROPN, LIPA4 #### [facility] [address] [place] [address] Anion gap [Moles/Vol] 11 mmol/L 3 - 13 mmol/L [facility] Calcium [Mass/Vol] 8.9 mg/dL 8.4 - 10. 4 mg/dL [facility] Chloride [Moles/Vol] 106 mmol/L 98 - 10 7 mmol/L [facility] CO2 [Moles/Vol] 22 mmol/L 22 - 30 mmol/L [facility] Creatinine [Mass/Vol] 0.82 mg/dL 0.52 - 1.25 mg/dL [facility] EGFR IF NonAfrican [place] 67.2 mL/min >60 [facility] Comment on above: KDIGO guidelines pro vide the following GFR categories: Stage GFR(ml/min/1.73 m2) Terms G1 >=90 Normal or high G2 60-89 Mildly decreased* G3a 45-59 Mildly to moderately decreased G3b 30-44 Moderately to severely decreased G4 15-29 Severely decreased G5 <15 Kidney failure *Relative to young adult level. In the absence of evidence of kidney damage, neither GFR category G1 nor G2 fulfill the criteria for CKD. The CKD-EPI equation is validated in individuals 18 years of age and older. Currently the best equation for estimating glomerular filtration rate (GFR) from serum creatinine in children is the Bedside De Leon equation. It is less accurate in patients with extremes of muscle mass, restriction of dietary protein, ingestion of creatine, extra-renal metabolism of creatinine, or treatment with medications that affect renal tubular creatinine secretion. GFR/1.73 sq M.predicted among blacks MDRD (S/P/Bld) [Vol rate/Area] 77.9 mL/min/{1.73_m2} >60 [facility] Glucose [Mass/Vol] 109 mg/dL High 70 - 100 mg/dL [facility] Interpretation and review of laboratory results Abnormal [facility] Potassium [Moles/Vol] 3.7 mmol/L 3.5 - 5.1 mmol/L [facility] Sodium [Moles/Vol] 139 mmol/L 135 - 145 mmol/L [facility] Urea nitrogen (BldV) [Mass/Vol] 18 mg/dL 9 - 20 mg/dL [facility] C. difficile toxin Molecular on 04-21-2021 C. difficile toxin Molecular NEGATIVE Methodology - Real Time PCR (Graph Story) Clinical judgement must be used when interpreting results. Positive results may reflect colonization. Indeterminate results suggest a new specimen be submitted. [address] LAB [facility] CT Abdomen and Pelvis W cont rast Nazario 04-21-2021 Patient Name: KATHRYN SINGLETON I Computed Tomography ACCESSION EXAM DATE/TIME PROCEDURE ORDERING PROVIDER [id number] 04/21/2021 04:[address] Abdomen/Pelvis w/ IV [id number] -NESHEIM, DEJON Contrast (IV Onl CPT code 54581 Q9967 Reason For Exam (CT Abdomen/Pelvis w/ IV Contrast (IV Onl) nausea, vomiting, diarrhea, lower abdominal pain Report CT ABDOMEN AND PELVIS WITH CONTRAST CLINICAL INDICATION: Nausea, vomiting, diarrhea and lower abdominal pain. TECHNIQUE: Multi-axial 3mm sections through the abdomen and pelvis following 75 mL of Isoview contrast media. No oral contrast was administered. Coronal and sagittal reconstructions were reviewed. COMPARISON: 08/03/2018. FINDINGS: Lung bases: Normal. Liver: Normal size and contours. No focal lesion. Biliary tree: Cholecystectomy. Mild intra and extrahepatic biliary dilatation is likely secondary to postcholecystectomy state, unchanged from prior exam. Spleen: Normal. Adrenals: Normal. Pancreas: Normal. Kidneys: Right kidney is normal in size and enhances normally. 1.5 cm right mid renal cortical cyst, unchanged. Left kidney is surgically absent. Free air or fluid: None. Mesenteric/retroperitoneal: No adenopathy or inflammation. Aorta: Atherosclerotic calcific aortic and iliac artery changes. Bowel: The appendix is not visualized and no pericecal inflammatory changes are evident.. No dilatation is noted. Abdominal wall: No ventral hernia is evident. Computed Tomography Report Pelvic organs/viscera: No mass identified. Inguinal lymphadenopathy: None. Osseous structures: Levo convexity lumbar spine. Lumbar degenerative spondylosis. Remote healed fracture deformity of left femoral neck fracture with ghost like linear tracts in femoral neck from prior hardware. Right-sided sacral stimulator lead is identified. IMPRESSION: No acute abdominal or pelvic findings to explain symptoms. Prior left nephrectomy. No residual mass or recurrent disease. 1.5 cm right inferior renal cortical cysts. Report Dictated on --- Final --- Dictated: 04/21/2021 5:10 am Dictating Physician: URVASHI GIRALDO DO, I Signed Date and Time: 04/21/2021 5:16 am Signed by: URVASHI GIRALDO DO, I Transcribed Date and Time: 04/21/2021 5:10 [facility] Urvashi Dominguez DO - 04/21/2021 [id number] Comput[facility] Tomography ACCESSION EXAM DATE/TIME PROCEDURE ORDERING PROVIDER [id number] 04/21/2021 04:[address] Abdomen/Pelvis w/ IV [id number] -NESHEIM, DEJON Contrast (IV Onl CPT code 86156 Q9967 Reason For Exam (CT Abdomen/Pelvis w/ IV Contrast (IV Onl) nausea, vomiting, diarrhea, lower abdominal pain Report CT ABDOMEN AND PELVIS WITH CONTRAST CLINICAL INDICATION: Nausea, vomiting, diarrhea and lower abdominal pain. TECHNIQUE: Multi-axial 3mm sections through the abdomen and pelvis following 75 mL of Isoview contrast media. No oral contrast was administered. Coronal and sagittal reconstructions were reviewed. COMPARISON: 08/03/2018. FINDINGS: Lung bases: Normal. Liver: Normal size and contours. No focal lesion. Biliary tree: Cholecystectomy. Mild intra and extrahepatic biliary dilatation is likely secondary to postcholecystectomy state, unchanged from prior exam. Spleen: Normal. Adrenals: Normal. Pancreas: Normal. Kidneys: Right kidney is normal in size and enhances normally. 1.5 cm right mid renal cortical cyst, unchanged. Left kidney is surgically absent. Free air or fluid: None. Mesenteric/retroperitoneal: No adenopathy or inflammation. Aorta: Atherosclerotic calcific aortic and iliac artery changes. Bowel: The appendix is not visualized and no pericecal inflammatory changes are evident.. No dilatation is noted. Abdominal wall: No ventral hernia is evident. Computed Tomography Report Pelvic organs/viscera: No mass identified. Inguinal lymphadenopathy: None. Osseous structures: Levo convexity lumbar spine. Lumbar degenerative spondylosis. Remote healed fracture deformity of left femoral neck fracture with ghost like linear tracts in femoral neck from prior hardware. Right-sided sacral stimulator lead is identified. IMPRESSION: No acute abdominal or pelvic findings to explain symptoms. Prior left nephrectomy. No residual mass or recurrent disease. 1.5 cm right inferior renal cortical cysts. Report Dictated on --- Final --- Dictated: 04/21/2021 5:10 am Dictating Physician: URVASHI GIRALDO DO, I Signed Date and Time: 04/21/2021 5:16 am Signed by: URVASHI GIRALDO DO, I Transcribed Date and Time: 04/21/2021 5:10 [facility] Work Phone: Radiology Study observation (narrative) [facility] Work Phone: CT Abdomen and Pelvis W cont rast IVOrdered By: Urvashi Giraldo on 04-21-2021 [facility] Work Phone: CT Abdomen/Pelvis w/ Contras ton 04-21-2021 CT Abdomen/Pelvis w/ Contrast Patient Name: KATHRYN TAMEZ I Computed Tomography ACCESSION EXAM DATE/TIME PROCEDURE ORDERING PROVIDER [id number] 04/21/2021 04:[address] Abdomen/Pelvis w/ IV [id number] -NESHEIM, DEJON Contrast (IV Onl CPT code 67063 Q9967 Reason For Exam (CT Abdomen/Pelvis w/ IV Contrast (IV Onl) nausea, vomiting, diarrhea, lower abdominal pain Report CT ABDOMEN AND PELVIS WITH CONTRAST CLINICAL INDICATION: Nausea, vomiting, diarrhea and lower abdominal pain. TECHNIQUE: Multi-axial 3mm sections through the abdomen and pelvis following 75 mL of Isoview contrast media. No oral contrast was administered. Coronal and sagittal reconstructions were reviewed. COMPARISON: 08/03/2018. FINDINGS: Lung bases: Normal. Liver: Normal size and contours. No focal lesion. Biliary tree: Cholecystectomy. Mild intra and extrahepatic biliary dilatation is likely secondary to postcholecystectomy state, unchanged from prior exam. Spleen: Normal. Adrenals: Normal. Pancreas: Normal. Kidneys: Right kidney is normal in size and enhances normally. 1.5 cm right mid renal cortical cyst, unchanged. Left kidney is surgically absent. Free air or fluid: None. Mesenteric/retroperitoneal: No adenopathy or inflammation. Aorta: Atherosclerotic calcific aortic and iliac artery changes. Bowel: The appendix is not visualized and no pericecal inflammatory changes are evident.. No dilatation is noted. Abdominal wall: No ventral hernia is evident. Computed Tomography Report Pelvic organs/viscera: No mass identified. Inguinal lymphadenopathy: None. Osseous structures: Levo convexity lumbar spine. Lumbar degenerative spondylosis. Remote healed fracture deformity of left femoral neck fracture with ghost like linear tracts in femoral neck from prior hardware. Right-sided sacral stimulator lead is identified. IMPRESSION: No acute abdominal or pelvic findings to explain symptoms. Prior left nephrectomy. No residual mass or recurrent disease. 1.5 cm right inferior renal cortical cysts. Report Dictated on Final Dictated: 04/21/2021 5:10 am Dictating Physician: URVASHI GIRALDO DO, I Signed Date and Time: 04/21/2021 5:16 am Signed by: URVASHI GIRALDO DO, I Transcribed Date and Time: 04/21/2021 5:10 Normal [facility] Clostridium difficile PCRon 04-21-2021 Clostridium difficile PCR Clostridium difficile by PCR --> Status: F NEGATIVE Methodology - Real Time PCR (Cepheid) Clinical judgement must be used when interpreting results. Positive results may reflect colonization. Indeterminate results suggest a new specimen be submitted. Methodology - Real Time PCR (Cepheid) Clinical judgement must be used when interpreting results. Positive results may reflect colonization. Indeterminate results suggest a new specimen be submitted. Normal [facility] Comment on above: Performed By: #### L ACT3, TSH5, BMP3, HEMOG, FT4M, TROPN, LIPA4 #### [facility] [address] [place] [address] Complete Urinalysison 2020 Appearance (U) Clear Normal Clear [facility] Comment on above: Result Comment: . Performed By: #### C UA2 #### [facility] [address], [place] Bacteria Moderate Abnormal Negative [facility] Comment on above: Result Comment: . Performed By: #### C UA2 #### [facility] [address], [place] Bilirubin,Urine Negative Normal Negative [facility] Comment on above: Result Comment: . Performed By: #### C UA2 #### [facility] [address], [place] Cast, Hyaline Negative Normal Negative [facility] Comment on above: Result Comment: . Performed By: #### C UA2 #### [place] [address], [place] Color (U) Light-Yellow Normal Lt. Yellow [facility] Comment on above: Result Comment: . Performed By: #### C UA2 #### [place] [address], [place] Glucose Ql (U) Normal Normal Normal (<70) [facility] Comment on above: Result Comment: . Performed By: #### C UA2 #### [place] [address], [place] Ketone,Urine 10 mg/dL Abnormal Negative [facility] Comment on above: Result Comment: . Performed By: #### C UA2 #### [place] [address] [place], [place] Leukocytes,Urine Negative Normal Negative [facility] Comment on above: Result Comment: . Performed By: #### C UA2 #### [facility] [address], [place] Mucous Threads Few Normal Negative [facility] Comment on above: Result Comment: . Performed By: #### C UA2 #### [place] [address] [place], [place] Nitrites,Urine Positive Abnormal Negative [facility] Comment on above: Result Comment: . Performed By: #### C UA2 #### [place] [address] [place], [place] Occult Blood,Urine 0.2 mg/dL Abnormal Negative [facility] Comment on above: Result Comment: . Performed By: #### C UA2 #### [facility] [address], [place] pH,Urine 5.5 Normal 5.0-8.0 [facility] Comment on above: Result Comment: . Performed By: #### C UA2 #### [facility] [address], [place] RBC, Urine 0 - 2 Normal 0-2 [facility] Comment on above: Result Comment: . Performed By: #### C UA2 #### [facility] [address], [place] Specific [place],Urine 1.008 Normal 1.005 - 1.030 [facility] Comment on above: Result Comment: . Performed By: #### C UA2 #### [place] [address] [place], [place] Squamous Epithelial 0 - 2 Normal 3-5 [facility] Comment on above: Result Comment: . Performed By: #### C UA2 #### [place] [address] [place], [place] Total Protein,Urine Negative Normal Negative [facility] Comment on above: Result Comment: . Performed By: #### C UA2 #### [facility] [address], [place] Urobilinogen,Urine Normal Normal Normal (0-1) [facility] Comment on above: Result Comment: . Performed By: #### C UA2 #### [facility] [address], [place] WBC, Urine 0 - 2 Normal 0-5 [facility] Comment on above: Result Comment: . Performed By: #### C UA2 #### [place] [address], [place] ED Provider Noteon ED Provider Note Emergency Department Encounter [facility] EMERGENCY DEPT Patient: Kathryn Tamez : 1940 Date of Evaluation: 04/21/2021 ED Provider: Dejon Tripp, DO Chief Complaint Chief Complaint Patient presents with ? Abdominal Pain pt brought in by 34 by rivas for NV/D since Sunday. pt in pain management and was changed from oral vicodin to buprenorphine 5mcg/hr patch. per rivas, there is concern that she is misusing the pain patches and replacing them too soon ? Nausea ? Emesis TYONEK I wore appropriate PPE for the entirety of this encounter. Does this patient come from an ECF, SNF, Rehab, Penitentiary or other Congregate setting: no (If yes to above patient needs a Covid-19 test) Kathryn Tamez is a 80 y.o. female who presents to the emergency department complaining of abdominal pain, nausea and vomiting. Patient reports she is had pain throughout the abdomen for about 3 to 4 days. She has been vomiting. She cannot keep any thing down. When she is vomiting she is also having loose stools. She states is water. She was previously on oxycodone for back pain. She was switched to buprenorphine patch. She has been on this for about 3 weeks. Denies other symptoms including chest pain, shortness of breath, fevers or chills. ROS: 10 systems reviewed and otherwise acutely negative except as in the TYONEK. Past History Past Medical History: Diagnosis Date ? Back pain ? Depression ? Gastritis ? GERD (gastroesophageal reflux disease) ? Hypothyroid Past Surgical History: Procedure Laterality Date ? BACK SURGERY 2017 ? CHOLECYSTECTOMY 1981 ? COLONOSCOPY 07/2018 ? ENDOSCOPY, COLON, DIAGNOSTIC 07/2018 EGD with biopsy ? HYSTERECTOMY 2004 ? JOINT REPLACEMENT Left left hip ? KIDNEY REMOVAL Left ? KIDNEY SURGERY Right right kideny remove, due tto cancer ? THYROIDECTOMY, PARTIAL ? TOTAL ANKLE ARTHROPLASTY Right Social History Socioeconomic History ? Marital status: Spouse name: Not on file ? Number of children: Not on file ? Years of education: Not on file ? Highest education level: Not on file Occupational History ? Not on file Tobacco Use ? Smoking status: Former Smoker Packs/day: 1.00 Years: 36.00 Pack years: 36.00 Start date: 08/04/1970 Quit date: 08/04/2016 Years since quittin.7 ? Smokeless tobacco: Never Used Substance and Sexual Activity ? Alcohol use: No Comment: ast drinking 05/2018, no hx EtOH, never attended [facility] ? Drug use: No ? Sexual activity: Never Comment: divorce Other Topics Concern ? Not on file Social History Narrative ? Not on file Social Determinants of Health Financial Resource Strain: ? Difficulty of Paying Living Expenses: Not on file Food Insecurity: ? Worried About Running Out of Food in the Last Year: Not on file ? Ran Out of Food in the Last Year: Not on file Transportation Needs: ? Lack of Transportation (Medical): Not on file ? Lack of Transportation (Non-Medical): Not on file Physical Activity: ? Days of Exercise per Week: Not on file ? Minutes of Exercise per Session: Not on file Stress: ? Feeling of Stress : Not on file Social Connections: ? Frequency of Communication with Friends and Family: Not on file ? Frequency of Social Gatherings with Friends and Family: Not on file ? Attends Advent Services: Not on file ? Active Member of Clubs or Organizations: Not on file ? Attends Club or Organization Meetings: Not on file ? Marital Status: Not on file Intimate Partner Violence: ? Fear of Current or Ex-Partner: Not on file ? Emotionally Abused: Not on file ? Physically Abused: Not on file ? Sexually Abused: Not on file Housing Stability: ? Unable to Pay for Housing in the Last Year: Not on file ? Number of Places Lived in the Last Year: Not on file ? Unstable Housing in the Last Year: Not on file Medications/Allergies Previous Medications ACETAMINOPHEN (TYLENOL) 500 MG TABLET Take 2 tablets by mouth 4 times daily as needed for Pain CLONAZEPAM (KLONOPIN) 0.5 MG TABLET Take 0.5 mg by mouth daily.. GABAPENTIN (NEURONTIN) 300 MG CAPSULE Take 300 mg by mouth daily.. HYDROCODONE-ACETAMINOPHEN (NORCO) 5-325 MG PER TABLET Take 1 tablet by mouth 2 times daily.. LEVOTHYROXINE (SYNTHROID) 88 MCG TABLET Take 88 mcg by mouth PANTOPRAZOLE (PROTONIX) 40 MG TABLET Take 1 tablet by mouth every morning (before breakfast) SERTRALINE (ZOLOFT) 50 MG TABLET Take 50 mg by mouth VITAMIN D (CHOLECALCIFEROL) 1000 UNIT TABS TABLET Take 1 tablet by mouth daily No Known Allergies Physical Exam ED Triage Vitals [04/21/21 0149] BP Temp Temp Source Pulse Resp SpO2 Height Weight 94/71 97.6 ?F (36.4 ?C) Oral 65 20 100 % 5' 1 (1.549 m) 110 lb (49.9 kg) GENERAL: The patient appears nourished and normally developed. Vital signs as documented. EYES: Head exam is unremarkable. No scleral icterus or orbital trauma noted. HEENT: Mucous membranes (more content not included)... 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: [facility] [place] : 1940 Requested By: DEJON TRIPP Order Number: [id number] Reading MD: Misty Humphries Measurements Intervals [place] Rate: 66 P: 49 OK: 136 QRS: 19 QRSD: 99 T: -29 QT: 428 QTc: 449 Interpretive Statements Sinus rhythm Low voltage, extremity and precordial leads Nonspecific T abnormalities, inferior leads Electronically Signed On 04-21-2021 13:54:04 EST by Misty Humphries [facility] Work Phone: EKG 12 Lead - Chest PainOrde red By: Misty Humphries on 04-21-2021 [employer] Work Phone: Free T4on 04-21-2021 Free T4 [Mass/Vol] 1.16 ng/dL Normal 0.78-2.19 [facility] Comment on above: Performed By: #### L ACT3, TSH5, BMP3, HEMOG, FT4M, TROPN, LIPA4 #### [address] [address] GASTROINTESTINAL PCR PANELon 04-21-2021 GASTROINTESTINAL PCR PANEL GASTROINTESTINAL PCR PANEL --> Status: F POSITIVE: Astrovirus. _ The [employer] Gastrointestinal PCR Panel can detect the following targets: Campylobacter, Plesiomonas shigelloides, Salmonella, Vibrio species, Vibrio cholerae, Yersinia enterocolitica, Shiga toxin-producing E coli (STEC) including E coli O157, Enterotoxigenic E coli (ETEC), Shigella/Enteroinvasive E coli (EIEC), Cryptosporidium, Cyclospora cayetanensis, Entamoeba histolytica, Giardia lamblia, Adenovirus F 40/41, Astrovirus, Norovirus GI/GII, Rotavirus A, Sapovirus _ The [employer] Gastrointestinal PCR Panel can detect the following targets: Campylobacter, Plesiomonas shigelloides, Salmonella, Vibrio species, Vibrio cholerae, Yersinia enterocolitica, Shiga toxin-producing E coli (STEC) including E coli O157, Enterotoxigenic E coli (ETEC), Shigella/Enteroinvasive E coli (EIEC), Cryptosporidium, Cyclospora cayetanensis, Entamoeba histolytica, Giardia lamblia, Adenovirus F 40/41, Astrovirus, Norovirus GI/GII, Rotavirus A, Sapovirus Abnormal [facility] Comment on above: Performed By: #### L ACT3, TSH5, BMP3, HEMOG, FT4M, TROPN, LIPA4 #### [address] [address] Gastrointestinal Panel by CHAPO Vasquez 04-21-2021 Gastrointestinal PCR Panel POSITIVE: Astrovirus. _ The [employer] Gastrointestinal PCR Panel can detect the following targets: Campylobacter, Plesiomonas shigelloides, Salmonella, Vibrio species, Vibrio cholerae, Yersinia enterocolitica, Shiga toxin-producing E coli (STEC) including E coli O157, Enterotoxigenic E coli (ETEC), Shigella/Enteroinvasive E coli (EIEC), Cryptosporidium, Cyclospora cayetanensis, Entamoeba histolytica, Giardia lamblia, Adenovirus F 40/41, Astrovirus, Norovirus GI/GII, Rotavirus A, Sapovirus Abnormal [facility] Interpretation and review of laboratory results Abnormal [facility] Test Performed by [address], [place] [id number] [place] [address] Hemogram 04-21-2021 Erythrocyte distribution width (RBC) [Ratio] 14.3 % Normal 11.5-14.5 [facility] Comment on above: Performed By: #### L ACT3, TSH5, BMP3, HEMOG, FT4M, TROPN, LIPA4 #### [address] Hematocrit (Bld) [Volume fraction] 39.2 % Normal 35.0-47.0 [facility] Comment on above: Performed By: #### L ACT3, TSH5, BMP3, HEMOG, FT4M, TROPN, LIPA4 #### [address] Hemoglobin (Bld) [Mass/Vol] 13.0 g/dL Normal 11.7-16.0 [facility] Comment on above: Performed By: #### L ACT3, TSH5, BMP3, HEMOG, FT4M, TROPN, LIPA4 #### [address] MCH (RBC) [Entitic mass] 28.6 pg Normal 26.0-34.0 [facility] Comment on above: Performed By: #### L ACT3, TSH5, BMP3, HEMOG, FT4M, TROPN, LIPA4 #### [address] MCHC 33.1 % Normal 32.0-36.0 [facility] Comment on above: Performed By: #### L ACT3, TSH5, BMP3, HEMOG, FT4M, TROPN, LIPA4 #### [address] MCV (RBC) [Entitic vol] 86.5 fL Normal 79.0-98.0 [facility] Comment on above: Performed By: #### L ACT3, TSH5, BMP3, HEMOG, FT4M, TROPN, LIPA4 #### [address] Platelet mean volume (Bld) [Entitic vol] 10.2 fL Normal 7.4-10.4 [facility] Comment on above: Performed By: #### L ACT3, TSH5, BMP3, HEMOG, FT4M, TROPN, LIPA4 #### [place] [address] [address] [place], [place] Platelets (Bld) [#/Vol] 165 10*3/uL Normal 140-440 [facility] Comment on above: Performed By: #### L ACT3, TSH5, BMP3, HEMOG, FT4M, TROPN, LIPA4 #### [address] [address] [address] [place], [place] RBC (Bld) [#/Vol] 4.53 10*6/uL Normal 3.80-5.20 [facility] Comment on above: Performed By: #### L ACT3, TSH5, BMP3, HEMOG, FT4M, TROPN, LIPA4 #### [address] [place] [address] [address] [place], [place] WBC (Bld) [#/Vol] 7.3 10*3/uL Normal 3.6-10.7 [facility] Comment on above: Performed By: #### L ACT3, TSH5, BMP3, HEMOG, FT4M, TROPN, LIPA4 #### [address] [address] [address] [place], [place] Hemogram (CBC)on 04-21-2021 Hematocrit (Bld) [Volume fraction] 39.2 % 35.0 - 47.0 % [facility] Hemoglobin.gastrointe stinal spec 1 Ql (Stl) 13.0 g/dL 11.7 - 16.0 g/dL [facility] MCH (RBC) [Entitic mass] 28.6 pg 26.0 - 34.0 pg [facility] MCHC (RBC) [Mass/Vol] 33.1 % 32.0 - 36.0 % [facility] MCV (RBC) [Entitic vol] 86.5 fL 79.0 - 98.0 fL [facility] Platelet distribution width (Bld) [Ratio] 14.3 % 11.5 - 14.5 % [facility] Platelet mean volume (Bld) [Entitic vol] 10.2 fL 7.4 - 10.4 fL [facility] Platelets (Bld) [#/Vol] 165 10*3/uL 140 - 440 10*3/uL [facility] RBC (Bld) [#/Vol] 4.53 10*6/uL 3.80 - 5.20 10*6/uL [facility] WBC (Bld) [#/Vol] 7.3 10*3/uL 3.6 - 10.7 10*3/uL [facility] Test Performed by [facility], [address] [place] [address] LAB [facility] Lactic Acidon 04-21-2021 Lactate [Moles/Vol] 0.8 mmol/L Normal 0.7-2.0 [facility] Comment on above: Performed By: #### L ACT3, TSH5, BMP3, HEMOG, FT4M, TROPN, LIPA4 #### [address] [address] Lactic Acid, Plasmaon 2020 Lactate [Moles/Vol] 0.8 mmol/L 0.7 - 2. 0 mmol/L [facility] Test Performed by [facility], [address] [place] [address] LAB [facility] Lipaseon 04-21-2021 Lipase [Catalytic activity/Vol] 58 U/L Normal 23-300 [facility] Comment on above: Performed By: #### L ACT3, TSH5, BMP3, HEMOG, FT4M, TROPN, LIPA4 #### [address] [address] Lipase [Catalytic activity/Vol] 58 U/L 23 - 300 U/L [facility] No Panel Informationon 04-21 Test Performed by [facility], [address] [place] [id number] [place] [address] LAB [facility] T4, Freeon 04-21-2021 Free T4 [Mass/Vol] 1.16 ng/dL 0.78 - 2.19 ng/dL [facility] Test Performed by [facility], [address] [place] [id number] [place] [address] LAB [facility] TSH without Reflexon 021 Interpretation and review of laboratory results Abnormal [facility] TSH Qn 12.423 u[IU]/mL High 0.465 - 4.680 u[IU]/mL [facility] Test Performed by [facility], [address] [place] [id number] [place] [address] LAB [facility] Thyroid Stim. Hormoneon 04-11 Thyroid Stim. Hormone 12.423 u[IU]/mL High 0.4 65-4.68 0 [facility] Comment on above: Performed By: #### L ACT3, TSH5, BMP3, HEMOG, FT4M, TROPN, LIPA4 #### [address] [address] Troponin Ion 04-21-2021 Troponin I.cardiac [Mass/Vol] ng/mL Normal 0.000-0.03 4 [facility] Comment on above: Result Comment: . Performed By: #### L ACT3, TSH5, BMP3, HEMOG, FT4M, TROPN, LIPA4 #### [address] [address] Troponin x1on 04-21-2021 Troponin I.cardiac [Mass/Vol] ng/mL 0.000 - 0.034 ng/mL [facility] Comment on above: . Test Performed by [facility], [address] [place] [id number] [place] [address] LAB [facility] Urinalysison 04-21-2021 Appearance (U) Clear Clear NA [facility] Comment on above: . Bacteria, UA Moderate Abnormal Negative /[HPF] [facility] Comment on above: . Bilirubin Urine Negative Negative mg/dL [facility] Comment on above: . Color (U) Light-Yellow Lt. Yellow NA [facility] Comment on above: . Glucose, Ur Normal Normal (<70) mg/dL [facility] Comment on above: . Hyaline Casts, UA Negative Negative /[LPF] [facility] Comment on above: . Interpretation and review of laboratory results Abnormal [facility] Ketones Ql (U) 10 mg/dL Abnormal Negative [facility] Comment on above: . LEUKOCYTES, UA Negative Negative Fahad/uL [facility] Comment on above: . Mucous Threads Few Negative /[LPF] [facility] Comment on above: . Nitrite, Urine Positive Abnormal Negative NA [facility] Comment on above: . Occult Blood,Urine 0.2 mg/dL Abnormal Negative [facility] Comment on above: . pH (U) 5.5 [pH] [facility] Comment on above: . RBC, UA 0-2 0 - 2 /[HPF] [facility] Comment on above: . Specific [place], Urine 1.008 [facility] Comment on above: . Squam Epithel, UA 0-2 3 - 5 /[HPF] [facility] Comment on above: . Total Protein, Urine Negative Negativ e mg/dL [facility] Comment on above: . Urobilinogen, Urine Normal Normal (0-1) mg/dL [facility] Comment on above: . WBC, UA 0-2 0 - 5 /[HPF] [facility] Comment on above: . Test Performed by [facility], [address] [place] [phone] [place] [address] [facility] [address] UPPER EXTREMITY RIGHT W C ONTRASTOrdered By: Marques De La Cruz on 11-09-2020 [id number] Computed Tomography ACCESSION EXAM DATE/TIME PROCEDURE ORDERING PROVIDER [id number] 11/09/2020 14:[address] Up Ext w/ Contrast MD KATHRYN, MARQUES Taylor Right CPT code 72074 Reason For Exam (CT Up Ext w/ Contrast Right) RIGHT ROTATOR CUFF TEAR ARTHROGRAM Report Exam Type: CT Up Ext w/ Contrast Right Exam Date and Time: 11/09/2020 2:51 PM EDT Indication: Right shoulder pain Comparison: None available. Technique: CT imaging of the right shoulder was performed following the intra-articular administration of iodinated contrast. Axial, coronal and sagittal reconstructions were submitted for review. Findings: Contrast readily distends the lateral humeral joint. Humeral head is slightly high riding. There is low-grade partial thickness cartilage loss along the glenoid and reciprocal inferior humeral head. No acute fracture or dislocation is seen. There is a full-thickness tear of the posterior fibers of the supraspinatus extending into the anterior fibers of the infraspinatus at the critical zone measuring approximately 17 mm in AP dimension. There is medial tendon retraction of approximately 12 mm. No high-grade subscapularis tear is seen. Rotator cuff muscle bulk is grossly within normal limits. The long head biceps tendon is normally located within the intertubercular groove. The tendon is grossly intact. Perineurovascular fat planes in the axilla are maintained. Acromioclavicular alignment is anatomic. Coronary artery calcifications. Biapical pleural parenchymal scarring. Subacute nondisplaced fracture of the proximal right clavicle. Old posterior right eighth rib fracture. Impression: 1. Subacute nondisplaced fracture of the proximal right clavicle. 2. Full-thickness tear of the posterior fibers of the supraspinatus Computed Tomography Report extending into the anterior fibers of the infraspinatus at the critical zone Report Dictated on --- Final --- Dictated: 11/09/2020 3:22 pm Dictating Physician: MD FLOREZ NEIL Signed Date and Time: 11/09/2020 4:22 pm Signed by: MD FLOREZ NEIL Transcribed Date and Time: 11/09/2020 3:22 [facility] Work Phone: [facility], [facility] Incoming Radiology Results From [facility] - 11/09/2020 4:24 PM EDT Patient [facility]: [id number] Computed Tomography ACCESSION EXAM DATE/TIME PROCEDURE ORDERING PROVIDER [id number] 11/09/2020 14:[address] Up Ext w/ Contrast MD KATHRYN, MARQUES Taylor Right CPT code 87549 Reason For Exam (CT Up Ext w/ Contrast Right) RIGHT ROTATOR CUFF TEAR ARTHROGRAM Report Exam Type: CT Up Ext w/ Contrast Right Exam Date and Time: 11/09/2020 2:51 PM EDT Indication: Right shoulder pain Comparison: None available. Technique: CT imaging of the right shoulder was performed following the intra-articular administration of iodinated contrast. Axial, coronal and sagittal reconstructions were submitted for review. Findings: Contrast readily distends the lateral humeral joint. Humeral head is slightly high riding. There is low-grade partial thickness cartilage loss along the glenoid and reciprocal inferior humeral head. No acute fracture or dislocation is seen. There is a full-thickness tear of the posterior fibers of the supraspinatus extending into the anterior fibers of the infraspinatus at the critical zone measuring approximately 17 mm in AP dimension. There is medial tendon retraction of approximately 12 mm. No high-grade subscapularis tear is seen. Rotator cuff muscle bulk is grossly within normal limits. The long head biceps tendon is normally located within the intertubercular groove. The tendon is grossly intact. Perineurovascular fat planes in the axilla are maintained. Acromioclavicular alignment is anatomic. Coronary artery calcifications. Biapical pleural parenchymal scarring. Subacute nondisplaced fracture of the proximal right clavicle. Old posterior right eighth rib fracture. Impression: 1. Subacute nondisplaced fracture of the proximal right clavicle. 2. Full-thickness tear of the posterior fibers of the supraspinatus Computed Tomography Report extending into the anterior fibers of the infraspinatus at the critical zone Report Dictated on --- Final --- Dictated: 11/09/2020 3:22 pm Dictating Physician: MD FLOREZ NEIL Signed Date and Time: 11/09/2020 4:22 pm Signed by: MD FLOREZ NEIL Transcribed Date and Time: 11/09/2020 3:22 [facility] Work Phone: [facility] Work Phone: CT Up Ext w/ Contrast Righto n 11-09-2020 CT Up Ext w/ Contrast Right Patient Name: KATHRYN TAMEZ I [facility]#: [id number] Computed Tomography ACCESSION EXAM DATE/TIME PROCEDURE ORDERING PROVIDER [id number] 11/09/2020 14:[address] Up Ext w/ Contrast MD KATHRYN, MARQUES Taylor Right CPT code 19593 Reason For Exam (CT Up Ext w/ Contrast Right) RIGHT ROTATOR CUFF TEAR ARTHROGRAM Report Exam Type: CT Up Ext w/ Contrast Right Exam Date and Time: 11/09/2020 2:51 PM EDT Indication: Right shoulder pain Comparison: None available. Technique: CT imaging of the right shoulder was performed following the intra-articular administration of iodinated contrast. Axial, coronal and sagittal reconstructions were submitted for review. Findings: Contrast readily distends the lateral humeral joint. Humeral head is slightly high riding. There is low-grade partial thickness cartilage loss along the glenoid and reciprocal inferior humeral head. No acute fracture or dislocation is seen. There is a full-thickness tear of the posterior fibers of the supraspinatus extending into the anterior fibers of the infraspinatus at the critical zone measuring approximately 17 mm in AP dimension. There is medial tendon retraction of approximately 12 mm. No high-grade subscapularis tear is seen. Rotator cuff muscle bulk is grossly within normal limits. The long head biceps tendon is normally located within the intertubercular groove. The tendon is grossly intact. Perineurovascular fat planes in the axilla are maintained. Acromioclavicular alignment is anatomic. Coronary artery calcifications. Biapical pleural parenchymal scarring. Subacute nondisplaced fracture of the proximal right clavicle. Old posterior right eighth rib fracture. Impression: 1. Subacute nondisplaced fracture of the proximal right clavicle. 2. Full-thickness tear of the posterior fibers of the supraspinatus Computed Tomography Report extending into the anterior fibers of the infraspinatus at the critical zone Report Dictated on Final Dictated: 11/09/2020 3:22 pm Dictating Physician: MD FLOREZ NEIL Signed Date and Time: 11/09/2020 4:22 pm Signed by: MD FLOREZ NEIL Transcribed Date and Time: 11/09/2020 3:22 Normal [facility] [place] ARTHR/ASP/INJ MAJOR JT/BU RSA RT WO USOrdered By: Marques De La Cruz on 11-09-2020 Patient [id number] Fluoroscopy ACCESSION EXAM DATE/TIME PROCEDURE ORDERING PROVIDER [id number] 11/09/2020 14:55 EDT RF Arthrogram Aspir Elisa DE LA CRUZ MD, MARUQES Bonner Jt Right CPT code 10819 [id number] Reason For Exam (RF Arthrogram Aspir Inj Ha Jt Right) Rotator cuff tear right shoulder Report FLUOROSCOPIC-GUIDED RIGHT SHOULDER ARTHROGRAM INJECTION Exam Date and Time: 11/09/2020 2:55 PM EDT Indication: Right shoulder pain PROCEDURE AND FINDINGS: Informed consent was obtained. Following this the patient was prepped and draped in a sterile fashion. Approximately 3 mL 0.5% ropivacaine was used for local anesthesia. Fluoroscopic guidance was used to introduce a 20-gauge spinal needle into the glenohumeral joint along the medial margin of the humeral head using an anterior approach. A small amount of contrast (1-2 mL Isovue 300) was used to verify position within the joint. Approximately 15 mL of iodinated contrast was subsequently injected. There were no immediate complications. Total fluoroscopy time of 0.5 minutes. 1 fluoroscopic image was obtained. IMPRESSION: Uncomplicated intra-articular right shoulder arthrogram injection of 15 mL iodinated contrast. Report Dictated on --- Final --- Dictated: 11/09/2020 4:23 pm Dictating Physician: MD FLOREZ NEIL Signed Date and Time: 11/09/2020 4:24 pm Signed by: MD FLOREZ NEIL Transcribed Date and Time: 11/09/2020 4:23 [facility] Work Phone: [facility], [facility] Incoming Radiology Results From [facility] - 11/09/2020 4:25 PM EDT Patient [facility]: [id number] Fluoroscopy ACCESSION EXAM DATE/TIME PROCEDURE ORDERING PROVIDER [id number] 11/09/2020 14:55 EDT RF Arthrogram Aspir Inj MD KATHRYN, MARQUES Bonner Jt Right CPT code 10921 [id number] [id number] Reason For Exam (RF Arthrogram Aspir Inj Ha Jt Right) Rotator cuff tear right shoulder Report FLUOROSCOPIC-GUIDED RIGHT SHOULDER ARTHROGRAM INJECTION Exam Date and Time: 11/09/2020 2:55 PM EDT Indication: Right shoulder pain PROCEDURE AND FINDINGS: Informed consent was obtained. Following this the patient was prepped and draped in a sterile fashion. Approximately 3 mL 0.5% ropivacaine was used for local anesthesia. Fluoroscopic guidance was used to introduce a 20-gauge spinal needle into the glenohumeral joint along the medial margin of the humeral head using an anterior approach. A small amount of contrast (1-2 mL Isovue 300) was used to verify position within the joint. Approximately 15 mL of iodinated contrast was subsequently injected. There were no immediate complications. Total fluoroscopy time of 0.5 minutes. 1 fluoroscopic image was obtained. IMPRESSION: Uncomplicated intra-articular right shoulder arthrogram injection of 15 mL iodinated contrast. Report Dictated on --- Final --- Dictated: 11/09/2020 4:23 pm Dictating Physician: MD FLOREZ NEIL Signed Date and Time: 11/09/2020 4:24 pm Signed by: MD FLOREZ NEIL Transcribed Date and Time: 11/09/2020 4:23 [facility] Work Phone: [facility] Work Phone: RF Arthrogram Aspir Inj Ha Jt Righton 11-09-2020 RF Arthrogram Aspir Inj Ha Jt Right Patient Name: KATHRYN TAMEZ I [facility]#: [id number] Fluoroscopy ACCESSION EXAM DATE/TIME PROCEDURE ORDERING PROVIDER [id number] 11/09/2020 14:55 EDT RF Arthrogram Aspir Elisa DE LA CRUZ MD, MARQUES Taylor Ha Jt Right CPT code 60998 [id number] Reason For Exam (RF Arthrogram Aspir Inj Ha Jt Right) Rotator cuff tear right shoulder Report FLUOROSCOPIC-GUIDED RIGHT SHOULDER ARTHROGRAM INJECTION Exam Date and Time: 11/09/2020 2:55 PM EDT Indication: Right shoulder pain PROCEDURE AND FINDINGS: Informed consent was obtained. Following this the patient was prepped and draped in a sterile fashion. Approximately 3 mL 0.5% ropivacaine was used for local anesthesia. Fluoroscopic guidance was used to introduce a 20-gauge spinal needle into the glenohumeral joint along the medial margin of the humeral head using an anterior approach. A small amount of contrast (1-2 mL Isovue 300) was used to verify position within the joint. Approximately 15 mL of iodinated contrast was subsequently injected. There were no immediate complications. Total fluoroscopy time of 0.5 minutes. 1 fluoroscopic image was obtained. IMPRESSION: Uncomplicated intra-articular right shoulder arthrogram injection of 15 mL iodinated contrast. Report Dictated on Final Dictated: 11/09/2020 4:23 pm Dictating Physician: MD FLOREZ NEIL Signed Date and Time: 11/09/2020 4:24 pm Signed by: MD FLOREZ NEIL Transcribed Date and Time: 11/09/2020 4:23 Normal [facility] Other 08-19-2020 Patient Name: KATHRYN MCINTOSH I Diagnostic Radiology ACCESSION EXAM DATE/TIME PROCEDURE ORDERING PROVIDER [id number] 08/19/2020 18:35 EST CR Shoulder 2+ Views MD ECHEVARRIA [place] Right CPT code 88704 Reason For Exam (CR Shoulder 2+ Views Right) right shoulder pain, fall off ladder Report RIGHT SHOULDER THREE VIEWS CLINICAL INDICATION: right shoulder pain, fall off ladder TECHNIQUE: Three views of the right shoulder. COMPARISON: None FINDINGS: Minor degenerative spurring lower margin of the glenoid. No fracture or dislocation seen. IMPRESSION: 1. No acute finding. Report Dictated on --- Final --- Dictated: 08/19/2020 6:41 pm Dictating Physician: MD MADISON JOHN R Signed Date and Time: 08/19/2020 6:42 pm Signed by: MD MADISON JOHN R Transcribed Date and Time: 08/19/2020 6:41 [facility] Work Phone: [place] [address] Incoming Radiology Results From [facility] - 08/19/2020 6:43 PM EST Patient Name: KATHRYN TAMEZ I Diagnostic Radiology ACCESSION EXAM DATE/TIME PROCEDURE ORDERING PROVIDER [id number] 08/19/2020 18:35 EST CR Shoulder 2+ Views MD ECHEVARRIA AUSTIN Right CPT code 95700 Reason For Exam (CR Shoulder 2+ Views Right) right shoulder pain, fall off ladder Report RIGHT SHOULDER THREE VIEWS CLINICAL INDICATION: right shoulder pain, fall off ladder TECHNIQUE: Three views of the right shoulder. COMPARISON: None FINDINGS: Minor degenerative spurring lower margin of the glenoid. No fracture or dislocation seen. IMPRESSION: 1. No acute finding. Report Dictated on --- Final --- Dictated: 08/19/2020 6:41 pm Dictating Physician: MD MADISON JOHN R Signed Date and Time: 08/19/2020 6:42 pm Signed by: MD MADISON JOHN R Transcribed Date and Time: 08/19/2020 6:41 [facility] Work Phone: XR HUMERUS RIGHT (MIN 2 VIEW S)on 08-19-2020 Patient Name: KATHRYN MCINTOSH I Diagnostic Radiology ACCESSION EXAM DATE/TIME PROCEDURE ORDERING PROVIDER [id number] 08/19/2020 19:41 EST CR Humerus 2+ Views [id number] -REANTA GUERRIER Right CPT code 10741 Reason For Exam (CR Humerus 2+ Views Right) Right arm pain after fall Report Examination: Right humerus Clinical Indication: Pain/trauma, fall Comparison: 08/19/2020. Findings: Two views of the right humerus demonstrate no cortical or trabecular irregularity to suggest a fracture. Bones are grossly normal anatomic alignment. No definite soft tissue abnormality is appreciated. Small enthesophyte seen at the olecranon process at the triceps tendon insertion. Mild osteoarthropathy right shoulder acromioclavicular and glenohumeral joints. Impression: No evidence for fracture or other gross abnormality of the right humerus. Report Dictated on --- Final --- Dictated: 08/19/2020 7:28 pm Dictating Physician: MD MEADOWS ANTHONY J Signed Date and Time: 08/19/2020 7:28 pm Signed by: MD MEADOWS ANTHONY J Transcribed Date and Time: 08/19/2020 7:28 [facility] Work Phone: [place] Incoming Radiology Results From [facility] - 08/19/2020 7:41 PM EST Patient Name: KATHRYN TAMEZ I Diagnostic Radiology ACCESSION EXAM DATE/TIME PROCEDURE ORDERING PROVIDER [id number] 08/19/2020 19:41 EST CR Humerus 2+ Views [id number] -RENATA GUERRIER Right CPT code 76613 Reason For Exam (CR Humerus 2+ Views Right) Right arm pain after fall Report Examination: Right humerus Clinical Indication: Pain/trauma, fall Comparison: 08/19/2020. Findings: Two views of the right humerus demonstrate no cortical or trabecular irregularity to suggest a fracture. Bones are grossly normal anatomic alignment. No definite soft tissue abnormality is appreciated. Small enthesophyte seen at the olecranon process at the triceps tendon insertion. Mild osteoarthropathy right shoulder acromioclavicular and glenohumeral joints. Impression: No evidence for fracture or other gross abnormality of the right humerus. Report Dictated on --- Final --- Dictated: 08/19/2020 7:28 pm Dictating Physician: MD MEADOWS ANTHONY J Signed Date and Time: 08/19/2020 7:28 pm Signed by: MD MEADOWS ANTHONY J Transcribed Date and Time: 08/19/2020 7:28 [facility] Work Phone: Total 25-OH Vitamin Don 02-10 Total 25-OH Vitamin D 41.4 ng/mL Normal 30.0-100.0 [facility] Comment on above: Performed By: #### 2 5VD1 #### [place] [address] Free Thyroxineon 03-08-2020 Free T4 [Mass/Vol] 0.9 ng/dL Normal 0.9-1.7 [facility] Comment on above: Result Comment: Luma ents taking a biotin dose of up to 5 mg/day should refrain from taking biotin for 4 hours prior to sample collection. Patients taking a biotin dose of 5 to 10 mg/day should refrain from taking biotin for 8 hours prior to sample collection. Patients taking a biotin dose > 10 mg/day should consult with their physician or the laboratory prior to having a sample taken. Clinicians should consider biotin interference as a source of error, when clinically suspicious of the laboratory result. Performed By: #### F T4A #### [place] [address] TSHon 03-08-2020 TSH 2.190 uIU/mL Normal 0.270-4.20 0 [facility] Comment on above: Result Comment: Preg mat: 1st trimester:(9-12 weeks):0.180-2.900 uIU/mL 2nd trimester: 0.110-3.980 uIU/mL 3rd trimester: 0.480-4.710 uIU/mL Patients taking a biotin dose of up to 5 mg/day should refrain from taking biotin for 4 hours prior to sample collection. Patients taking a biotin dose of 5 to 10 mg/day should refrain from taking biotin for 8 hours prior to sample collection. Patients taking a biotin dose > 10 mg/day should consult with their physician or the laboratory prior to having a sample taken. Clinicians should consider biotin interference as a source of error, when clinically suspicious of the laboratory result. Performed By: #### T SH3 #### [place] [address] Total 25-OH Vitamin Don 12-09 Total 25-OH Vitamin D 23.1 ng/mL Low 30.0-100.0 [facility] Comment on above: Performed By: #### 2 5VD1 #### [place] [address] MDRD GFRon 12-19-2019 GFR/1.73 sq M.predicted among non-blacks MDRD (S/P/Bld) [Vol rate/Area] mL/min/{1.73_m2} Normal >60mL/min/ 1.73m2 [facility] Comment on above: Result Comment: If t he patient is , multiply the result by 1.210. Performed By: #### G FR #### [place] [address] Renal Function Panelon 12-18 Albumin [Mass/Vol] 4.5 g/dL Normal 3.9-4.9 [facility] Comment on above: Performed By: #### R FP #### [place] [address] Anion gap [Moles/Vol] 11 mmol/L Normal 9-18 [facility] Comment on above: Performed By: #### R FP #### [facility] [address] [place], [place] [address] Calcium [Mass/Vol] 9.3 mg/dL Normal 8.5-10.2 [facility] Comment on above: Performed By: #### R FP #### [facility] [address] [place], [place] [address] Chloride [Moles/Vol] 105 mmol/L Normal 97-105 [facility] Comment on above: Performed By: #### R FP #### [facility] [address] [place], [place] [address] CO2 [Moles/Vol] 25 mmol/L Normal 22-30 [facility] Comment on above: Performed By: #### R FP #### [facility] [address] [place], [place] [address] Creatinine [Mass/Vol] 0.85 mg/dL Normal 0.58-0.96 [facility] Comment on above: Performed By: #### R FP #### [facility] [address] [place], [place] [address] Glucose [Mass/Vol] 80 mg/dL Normal 74-99 [facility] Comment on above: Result Comment: The [place] [employer] (ADA) provides guidance for cutoff values for fasting glucose and random glucose. The ADA defines fasting as no caloric intake for at least 8 hours.Fasting plasma glucose results between 100 to 125 mg/dL indicate increased risk for diabetes (prediabetes). Fasting plasma glucose results greater than or equal to 126 mg/dL meet the criteria for diagnosis of diabetes. In the absence of unequivocal hyperglycemia, results should be confirmed by repeat testing. In a patient with classic symptoms of hyperglycemia or hyperglycemic crisis, random plasma glucose results greater than or equal to 200 mg/dL meet the criteria for diagnosis of diabetes. Reference: Standards of Medical Care in Diabetes 2016; [place] [employer]. Diabetes Care. 2016;39(Suppl 1). Performed By: #### R FP #### [facility] [address] [place], [place] [address] Phosphate [Mass/Vol] 3.9 mg/dL Normal 2.7-4.8 [facility] Comment on above: Performed By: #### R FP #### [facility] [address] [place], [place] [address] Potassium [Moles/Vol] 4.6 mmol/L Normal 3.7-5.1 [facility] Comment on above: Performed By: #### R FP #### [facility] [address] [place], [place] [address] Sodium [Moles/Vol] 141 mmol/L Normal 136-144 [facility] Comment on above: Performed By: #### R FP #### [facility] [address] [place], [place] [address] Urea nitrogen [Mass/Vol] 13 mg/dL Normal 7-21 [facility] Comment on above: Performed By: #### R FP #### [facility] [address] [place], [place] [address] No Panel Information [facility] Vital Signs Date Time Vital Sign Value Performing Clinician Facility 12-01-2024 15:55-0400 Body temperature 98.3 [degF] Dr. Dorian Ballard MD Work Phone: 4(285)530-865711 [address] 12-01-2024 15:55-0400 Diastolic blood pressure 59 mm[Hg] Dr. Dorian Ballard MD Work Phone: 1(051)717-882538 [place] [address] 12-01-2024 15:55-0400 Heart rate 72 /min Dr. Dorian Ballard MD Work Phone: 8(510)981-414033 [place] [address] 12-01-2024 15:55-0400 Respiratory rate 16 /min Dr. Dorian Ballard MD Work Phone: 8(186)058-018833 [place] [address] 12-01-2024 15:55-0400 SaO2% (BldA) [Mass fraction] 96 % Dr. Dorian Ballard MD Work Phone: 9(456)219-852611 [address] 12-01-2024 15:55-0400 Systolic blood pressure 125 mm[Hg] Dr. Dorian Ballard MD Work Phone: 2(387)210-231511 [address] 11-30-2024 13:54-0400 Body height 152.[address] Dorian Ballard MD Work Phone: 1(449)847-066738 [place] [address] 11-30-2024 13:54-0400 Body mass index (BMI) [Ratio] 23 kg/m2 Dr. Dorian Ballard MD Work Phone: 3(957)780-445838 [place] [address] 11-30-2024 13:54-0400 Body weight 53.[address] Dorian Ballard MD Work Phone: 2(076)831-672538 [place] [address] 11-30-2024 13:18-0400 Body temperature 98.1 [degF] Dr. Dorian Ballard MD Work Phone: 6(155)063-666738 [place] [address] 11-30-2024 13:18-0400 Diastolic blood pressure 66 mm[Hg] Dr. Dorian Ballard MD Work Phone: 7(241)117-258838 [place] [address] 11-30-2024 13:18-0400 Heart rate 70 /min Dr. Dorian Ballard MD Work Phone: 0(260)188-805038 [place] [address] 11-30-2024 13:18-0400 Respiratory rate 14 /min Dr. Dorian Ballard MD Work Phone: 7(300)032-731938 [place] [address] 11-30-2024 13:18-0400 SaO2% (BldA) [Mass fraction] 93 % Dr. Dorian Ballard MD Work Phone: 1(530)234-222138 [place] [address] 11-30-2024 13:18-0400 Systolic blood pressure 113 mm[Hg] Dr. Dorian Ballard MD Work Phone: 9(562)731-335638 [place] [address] 11-30-2024 10:24-0400 Body height 152.[address] Dorian Ballard MD Work Phone: 3(604)157-861838 [place] [address] 11-30-2024 10:24-0400 Body mass index (BMI) [Ratio] 23 kg/m2 Dr. Dorian Ballard MD Work Phone: 2(183)029-732238 [place] [address] 11-30-2024 10:24-0400 Body weight 53.[address] Dorian Ballard MD Work Phone: 1(895)495-480838 [place] [address] 11-18-2024 07:34-0400 Body temperature 97.7 [degF] Devyn Etowah DO Work Phone: [facility] [employer] 11-18-2024 07:34-0400 Diastolic blood pressure 65 mm[Hg] Devyn Etowah DO Work Phone: [facility] 11-18-2024 07:34-0400 Heart rate 70 /min Devyn Etowah DO Work Phone: [facility] 11-18-2024 07:34-0400 Respiratory rate 16 /min Devyn Marcell DO Work Phone: [facility] 11-18-2024 07:34-0400 SaO2% (BldA) [Mass fraction] 94 % Devyn Etowah DO Work Phone: [facility] 11-18-2024 07:34-0400 Systolic blood pressure 128 mm[Hg] Devyn Etowah DO Work Phone: [facility] 11-10-2024 13:35-0400 Body height 154.9 cm Devyn Marcell DO Work Phone: [facility] 11-09-2024 19:34-0400 Body mass index (BMI) [Ratio] 22.5 kg/m2 Devyn Etowah DO Work Phone: [facility] 11-09-2024 19:34-0400 Body weight 53.98 kg Devyn Marcell DO Work Phone: [facility] 10-27-2024 13:28-0400 Body height 152.4 cm Bharati Dumont Jr., MD Work Phone: [facility] 10-27-2024 13:28-0400 Body mass index (BMI) [Ratio] 23.24 kg/m2 Bharati Dumont Jr., MD Work Phone: [facility] 10-27-2024 13:28-0400 Body weight 53.98 kg Bharati Dumont Jr., MD Work Phone: [facility] 10-27-2024 13:28-0400 Respiratory rate 17 /min Bharati Dumont Jr., MD Work Phone: [facility] 10-20-2024 13:17-0400 Body height 152.4 cm Kevin Wood MD Work Phone: [facility] 10-20-2024 13:17-0400 Body mass index (BMI) [Ratio] 23.24 kg/m2 Kevin Wood MD Work Phone: [facility] 10-20-2024 13:17-0400 Body temperature 96.69 [degF] Kevin Wood MD Work Phone: [facility] 10-20-2024 13:17-040 Body weight 53.98 kg Kevin Wood MD Work Phone: [facility] 10-20-2024 13:17-0400 Diastolic blood pressure 81 mm[Hg] Kevin Wood MD Work Phone: [facility] 10-20-2024 13:17-0400 Heart rate 70 /min Kevin Wood MD Work Phone: [facility] 10-20-2024 13:17-0400 SaO2% (BldA) [Mass fraction] 96 % Kevin Wood MD Work Phone: [facility] 10-20-2024 13:17-0400 Systolic blood pressure 123 mm[Hg] Kevin Wood MD Work Phone: [facility] 09-15-2024 14:28-0400 Body mass index (BMI) [Ratio] 23.94 kg/m2 Cj Dale PA-C Work Phone: [facility] 09-15-2024 14:28-0400 Body temperature 98.01 [degF] Cj Dale PA-C Work Phone: [facility] 09-15-2024 14:28-0400 Body weight 55.61 kg Cj Dale PA-C Work Phone: [facility] 09-15-2024 14:28-0400 Diastolic blood pressure 74 mm[Hg] Cj Dale PA-C Work Phone: [facility] 09-15-2024 14:28-0400 Heart rate 63 /min Cj De La Cruzlinda PA-C Work Phone: [facility] 09-15-2024 14:28-0400 SaO2% (BldA) [Mass fraction] 97 % Cj De La Cruzlinda PA-C Work Phone: [facility] 09-15-2024 14:28-0400 Systolic blood pressure 132 mm[Hg] Cj De La Cruzlinad PA-C Work Phone: [facility] 09-03-2024 13:59-0400 Body mass index (BMI) [Ratio] 23.83 kg/m2 Kevin Wood MD Work Phone: [facility] 09-03-2024 13:59-0400 Body temperature 97.9 [degF] Kevin Wood MD Work Phone: [facility] 09-03-2024 13:59-0400 Body weight 55.34 kg Kevin Wood MD Work Phone: [facility] 09-03-2024 13:59-0400 Diastolic blood pressure 67 mm[Hg] Kevin Wood MD Work Phone: [facility] 09-03-2024 13:59-0400 Heart rate 60 /min Kevin Wood MD Work Phone: [facility] 09-03-2024 13:59-0400 SaO2% (BldA) [Mass fraction] 95 % Kevin Wood MD Work Phone: [facility] 09-03-2024 13:59-0400 Systolic blood pressure 132 mm[Hg] Kevin Wood MD Work Phone: [facility] 08-14-2024 14:28-0500 Body mass index (BMI) [Ratio] 23.24 kg/m2 Leonardo Lyles APRN.CNP Work Phone: [facility] 08-14-2024 14:28-0500 Body temperature 97.5 [degF] Leonardo Lyles [employer] Work Phone: [facility] 08-14-2024 14:28-0500 Body weight 53.98 kg Leonardo Lyles [employer] Work Phone: [facility] 08-14-2024 14:28-0500 Diastolic blood pressure 62 mm[Hg] Leonardo Lyles [employer] Work Phone: [facility] 08-14-2024 14:28-0500 Heart rate 85 /min Leonardo Lyles [employer] Work Phone: [facility] 08-14-2024 14:28-0500 SaO2% (BldA) [Mass fraction] 96 % Leonardo Lyles [employer] Work Phone: [facility] 08-14-2024 14:28-0500 Systolic blood pressure 117 mm[Hg] Leonardo Lyles [employer] Work Phone: [facility] 07-24-2024 08:08-0500 Body temperature 97.39 [degF] Marclel Ballard MD Work Phone: [facility] 07-24-2024 08:08-0500 Diastolic blood pressure 76 mm[Hg] Marcell Ballard MD Work Phone: [facility] 07-24-2024 08:08-0500 Heart rate 62 /min Marcell Ballard MD Work Phone: [facility] 07-24-2024 08:08-0500 Respiratory rate 18 /min Marcell Ballard MD Work Phone: [facility] 07-24-2024 08:08-0500 SaO2% (BldA) [Mass fraction] 94 % Marcell Ballard MD Work Phone: [facility] 07-24-2024 08:08-0500 Systolic blood pressure 141 mm[Hg] Marcell Ballard MD Work Phone: [facility] 07-23-2024 00:44-0500 Body mass index (BMI) [Ratio] 24.15 kg/m2 Marcell Ballard MD Work Phone: [facility] 07-23-2024 00:44-0500 Body weight 56.1 kg Marcell Ballard MD Work Phone: [facility] 07-21-2024 07:38-0500 Body height 152.4 cm Marcell Ballard MD Work Phone: [facility] 07-10-2024 09:04-0500 Body mass index (BMI) [Ratio] 23.59 kg/m2 Verenice Roca MD Work Phone: [facility] 07-10-2024 09:04-0500 Body temperature 96.8 [degF] Verenice Roca MD Work Phone: [facility] 07-10-2024 09:04-0500 Body weight 54.8 kg Verenice Roca MD Work Phone: [facility] 07-10-2024 09:04-0500 Diastolic blood pressure 70 mm[Hg] Verenice Roca MD Work Phone: [facility] 07-10-2024 09:04-0500 Heart rate 69 /min Verenice Roca MD Work Phone: [facility] 07-10-2024 09:04-0500 SaO2% (BldA) [Mass fraction] 95 % Verenice Roca MD Work Phone: [facility] 07-10-2024 09:04-0500 Systolic blood pressure 118 mm[Hg] Verenice Roca MD Work Phone: [facility] 04-16-2024 09:14-0500 Body height 152.4 cm Cali Turpin MD Work Phone: [facility] 04-16-2024 09:14-0500 Body mass index (BMI) [Ratio] 23.24 kg/m2 Cali Turpin MD Work Phone: [facility] 04-16-2024 09:14-0500 Body temperature 98.8 [degF] Cali Turpin MD Work Phone: [facility] 04-16-2024 09:14-0500 Body weight 53.98 kg Cali Turpin MD Work Phone: [facility] 04-16-2024 09:14-0500 Diastolic blood pressure 73 mm[Hg] Cali Turpin MD Work Phone: [facility] 04-16-2024 09:14-0500 Heart rate 70 /min Cali Turpin MD Work Phone: [facility] 04-16-2024 09:14-0500 Respiratory rate 18 /min Cali Turpin MD Work Phone: [facility] 04-16-2024 09:14-0500 SaO2% (BldA) [Mass fraction] 97 % Cali Turpin MD Work Phone: [facility] 04-16-2024 09:14-0500 Systolic blood pressure 123 mm[Hg] Cali Turpin MD Work Phone: [facility] 04-01-2024 10:15-0400 Body mass index (BMI) [Ratio] 21.29 kg/m2 Verenice Roca MD Work Phone: [facility] 04-01-2024 10:15-0400 Body temperature 96.91 [degF] Verenice Roca MD Work Phone: [facility] 04-01-2024 10:15-0400 Body weight 49.44 kg Verenice Roca MD Work Phone: [facility] 04-01-2024 10:15-0400 Diastolic blood pressure 68 mm[Hg] Verenice Roca MD Work Phone: [facility] 04-01-2024 10:15-0400 Heart rate 72 /min Verenice Roca MD Work Phone: [facility] 04-01-2024 10:15-0400 SaO2% (BldA) [Mass fraction] 96 % Verenice Roca MD Work Phone: [facility] 04-01-2024 10:15-0400 Systolic blood pressure 120 mm[Hg] Verenice Roca MD Work Phone: [facility] 02-15-2024 09:03-0400 Body height 152.4 cm Bharati Dumont Jr., MD Work Phone: [facility] 02-15-2024 09:03-0400 Body mass index (BMI) [Ratio] 23.24 kg/m2 Bharati Dumont Jr., MD Work Phone: [facility] 02-15-2024 09:03-0400 Body weight 53.98 kg Bharati Dumont Jr., MD Work Phone: [facility] 02-15-2024 09:03-0400 Respiratory rate 18 /min Bharati Dumont Jr., MD Work Phone: [facility] 02-01-2024 09:23-0400 Body mass index (BMI) [Ratio] 23.25 kg/m2 [place] Praisler-Wood [employer] Work Phone: [facility] 02-01-2024 09:23-0400 Body temperature 97.2 [degF] [place] Praisler-Wood [employer] Work Phone: [facility] 02-01-2024 09:23-0400 Body weight 54 kg [place] Praisler-Wood [employer] Work Phone: [facility] 02-01-2024 09:23-0400 Diastolic blood pressure 73 mm[Hg] [place] Praisler-Wood [employer] Work Phone: [facility] 02-01-2024 09:23-0400 Heart rate 66 /min [place] Praisler-Wood [employer] Work Phone: [facility] 02-01-2024 09:23-0400 Respiratory rate 20 /min [place] Praisler-Wood [employer] Work Phone: [facility] 02-01-2024 09:23-0400 SaO2% (BldA) [Mass fraction] 97 % [place] Ruben [employer] Work Phone: [facility] 02-01-2024 09:23-0400 Systolic blood pressure 129 mm[Hg] [place] Miranda [employer] Work Phone: [facility] 11-09-2023 09:44-0400 Body height 152.4 cm Bharati Dumont Jr., MD Work Phone: [facility] 11-09-2023 09:44-0400 Body mass index (BMI) [Ratio] 22.46 kg/m2 Bharati Dumont Jr., MD Work Phone: [facility] 11-09-2023 09:44-0400 Body weight 52.16 kg Bharati Dumont Jr., MD Work Phone: [facility] 11-09-2023 09:44-0400 Respiratory rate 18 /min Bharati Dumont Jr., MD Work Phone: [facility] 09-19-2023 13:43-0400 Body height 152.4 cm Bharati Dumont Jr., MD Work Phone: [facility] 09-19-2023 13:43-0400 Body weight 52.16 kg Bharati Dumont Jr., MD Work Phone: [facility] 09-19-2023 13:43-0400 Respiratory rate 18 /min Bharati Dumont Jr., MD Work Phone: [facility] 08-29-2023 10:10-0400 Body height 152.4 cm Bharati Dumont Jr., MD Work Phone: [facility] 08-29-2023 10:10-0400 Body mass index (BMI) [Ratio] 22.46 kg/m2 Bharati Dumont Jr., MD Work Phone: [facility] 08-29-2023 10:10-0400 Body weight 52.16 kg Bharati Dumont Jr., MD Work Phone: [facility] 08-29-2023 10:10-0400 Respiratory rate 18 /min Bharati Dumont Jr., MD Work Phone: [facility] 08-08-2023 10:27-0500 Body height 152.4 cm Bharati Dumont Jr., MD Work Phone: [facility] 08-08-2023 10:27-0500 Body weight 54.43 kg Bharati Dumont Jr., MD Work Phone: [facility] 08-08-2023 10:27-0500 Respiratory rate 18 /min Bharati Dumont Jr., MD Work Phone: [facility] 12-20-2022 10:22-0400 Body height 152.4 cm Bharati Dumont Jr., MD Work Phone: [facility] 12-20-2022 10:22-0400 Body weight 54.43 kg Bharati Dumont Jr., MD Work Phone: [facility] 12-20-2022 10:22-0400 Respiratory rate 18 /min Bharati Dumont Jr., MD Work Phone: [facility] 11-24-2022 10:36-0400 Body height 152.4 cm Britany Mikulski PA-C Work Phone: [facility] 11-24-2022 10:36-0400 Body weight 54.43 kg Britany Mikulski PA-C Work Phone: [facility] 11-24-2022 10:36-0400 Respiratory rate 18 /min Britany Mikulski PA-C Work Phone: [facility] 09-13-2022 09:58-0400 Body height 152.4 cm Bharati Dumont Jr., MD Work Phone: [facility] 09-13-2022 09:58-0400 Body weight 54.43 kg Bharati Dumont Jr., MD Work Phone: [facility] 09-13-2022 09:58-0400 Respiratory rate 18 /min Bharati Dumont Jr., MD Work Phone: [facility] 07-24-2022 13:15-0500 Body height 152.4 cm Britany Mikulski PA-C Work Phone: [facility] 07-24-2022 13:15-0500 Body weight 54.43 kg Britany Mikulski PA-C Work Phone: [facility] 07-24-2022 13:15-0500 Respiratory rate 18 /min Britany Mikulski PA-C Work Phone: [facility] 07-05-2022 13:46-0500 Body height 152.4 cm Bharati Dumont Jr., MD Work Phone: [facility] 07-05-2022 13:46-0500 Body weight 50.8 kg Bharati Dumont Jr., MD Work Phone: [facility] 07-05-2022 13:46-0500 Respiratory rate 17 /min Bharati Dumont Jr., MD Work Phone: [facility] 06-28-2022 08:50-0500 Body height 152.4 cm Bharati Dumont Jr., MD Work Phone: [facility] 06-28-2022 08:50-0500 Body weight 50.8 kg Bharati Dumont Jr., MD Work Phone: [facility] 06-28-2022 08:50-0500 Respiratory rate 16 /min Bharati Dumont Jr., MD Work Phone: [facility] 06-21-2022 13:02-0500 Body height 152.4 cm Bharati Dumont Jr., MD Work Phone: [facility] 06-21-2022 13:02-0500 Body weight 50.8 kg Bharati Dumont Jr., MD Work Phone: [facility] 06-21-2022 13:02-0500 Respiratory rate 16 /min Bharati Dumont Jr., MD Work Phone: [facility] 06-14-2022 10:19-0500 Body height 152.4 cm Britany Mikulski PA-C Work Phone: [facility] 06-14-2022 10:19-0500 Body weight 50.8 kg Britany Mikulski PA-C Work Phone: [facility] 06-14-2022 10:19-0500 Respiratory rate 20 /min Britany Mikulski PA-C Work Phone: [facility] 06-02-2022 10:37-0500 Body height 154.9 cm Bharati Dumont Jr., MD Work Phone: [facility] 06-02-2022 10:37-0500 Body weight 52.16 kg Bharati Dumont Jr., MD Work Phone: [facility] 06-02-2022 10:37-0500 Respiratory rate 18 /min Bharati Dumont Jr., MD Work Phone: [facility] 05-26-2022 11:31-0500 Body weight 52.16 kg Leonardo Lyles APRN.[employer] Work Phone: [facility] 05-26-2022 11:31-0500 Diastolic blood pressure 70 mm[Hg] Leonardo Lyles APRN.[employer] Work Phone: [facility] 05-26-2022 11:31-0500 Heart rate 70 /min Leonardo Lyles APRN.[employer] Work Phone: [facility] 05-26-2022 11:31-0500 SaO2% (BldA) [Mass fraction] 95 % Leonardo Lyles APRN.[employer] Work Phone: [facility] 05-26-2022 11:31-0500 Systolic blood pressure 122 mm[Hg] Leonardo Lyles APRN.[employer] Work Phone: [facility] 05-24-2022 14:06-0500 Body height 154.9 cm Bharati Dumont Jr., MD Work Phone: [facility] 05-24-2022 14:06-0500 Body weight 50.35 kg Bharati Dumont Jr., MD Work Phone: [facility] 05-24-2022 14:06-0500 Respiratory rate 18 /min Bharati Dumont Jr., MD Work Phone: [facility] 05-10-2022 08:13-0500 Body height 151.1 cm Bharati Dumont Jr., MD Work Phone: [facility] 05-10-2022 08:13-0500 Body weight 50.8 kg Bharati Dumont Jr., MD Work Phone: [facility] 05-10-2022 08:13-0500 Respiratory rate 16 /min Bharati Dumont Jr., MD Work Phone: [facility] 04-05-2022 10:02-0400 Body height 151.1 cm Bharati Dumont Jr., MD Work Phone: [facility] 04-05-2022 10:02-0400 Body weight 50.8 kg Bharati Dumont Jr., MD Work Phone: [facility] 04-05-2022 10:02-0400 Respiratory rate 18 /min Bharati Dumont Jr., MD Work Phone: [facility] 10-10-2021 16:50-0400 Diastolic blood pressure 60 mm[Hg] REED Lainez MD Work Phone: [facility] 10-10-2021 16:50-0400 Heart rate 80 /min REED Lainez MD Work Phone: [facility] 10-10-2021 16:50-0400 Respiratory rate 18 /min REED Lainez MD Work Phone: [facility] 10-10-2021 16:50-0400 SaO2% (BldA) [Mass fraction] 95 % REED Lainez MD Work Phone: [facility] 10-10-2021 16:50-0400 Systolic blood pressure 120 mm[Hg] REED Lainez MD Work Phone: [facility] 10-10-2021 14:01-0400 Body mass index (BMI) [Ratio] 21.48 kg/m2 REED Lainez MD Work Phone: [facility] 10-10-2021 14:01-0400 Body weight 49.9 kg REED Lainez MD Work Phone: [facility] 10-10-2021 13:55-0400 Body temperature 98.71 [degF] REED Lainez MD Work Phone: [facility] 10-07-2021 09:30-0400 Body weight 50.8 kg Leonardo Lyles [employer] Work Phone: [facility] 10-07-2021 09:30-0400 Diastolic blood pressure 74 mm[Hg] Leonardo Miltonage [employer] Work Phone: [facility] 10-07-2021 09:30-0400 Heart rate 82 /min Leonardo Miltonage [employer] Work Phone: [facility] 10-07-2021 09:30-0400 SaO2% (BldA) [Mass fraction] 98 % Leonardo Lyles [employer] Work Phone: [facility] 10-07-2021 09:30-0400 Systolic blood pressure 126 mm[Hg] Leonardo Miltonage [employer] Work Phone: [facility] 05-10-2021 09:56-0500 Body temperature 97.9 [degF] Brant Mckee MD Work Phone: [facility] 05-10-2021 09:56-0500 Diastolic blood pressure 49 mm[Hg] Brant Mckee MD Work Phone: [facility] 05-10-2021 09:56-0500 Heart rate 64 /min Brant Mckee MD Work Phone: [facility] 05-10-2021 09:56-0500 Respiratory rate 16 /min Barnt Mckee MD Work Phone: [facility] 05-10-2021 09:56-0500 SaO2% (BldA) [Mass fraction] 97 % Brant Mckee MD Work Phone: [facility] 05-10-2021 09:56-0500 Systolic blood pressure 114 mm[Hg] Brant Mckee MD Work Phone: [facility] 05-07-2021 17:16-0500 Body height 152.4 cm Brant Mckee MD Work Phone: [facility] 05-07-2021 17:16-0500 Body mass index (BMI) [Ratio] 20.7 kg/m2 Brant Mckee MD Work Phone: [facility] 05-07-2021 17:16-0500 Body weight 48.08 kg Brant Mckee MD Work Phone: [facility] 04-26-2021 07:40-0500 Body temperature 97.3 [degF] Dejon Nesheim DO Work Phone: [facility] 04-26-2021 07:40-0500 Diastolic blood pressure 52 mm[Hg] Dejon Nesheim DO Work Phone: [facility] 04-26-2021 07:40-0500 Heart rate 58 /min Dejon Nesheim DO Work Phone: [facility] 04-26-2021 07:40-0500 Respiratory rate 17 /min Dejon Nesheim DO Work Phone: [facility] 04-26-2021 07:40-0500 SaO2% (BldA) [Mass fraction] 94 % Dejon Nesheim DO Work Phone: [facility] 04-26-2021 07:40-0500 Systolic blood pressure 116 mm[Hg] Dejon Nesheim DO Work Phone: [facility] 04-24-2021 06:00-0500 Body mass index (BMI) [Ratio] 20.22 kg/m2 Dejon Nesheim DO Work Phone: [facility] 04-24-2021 06:00-0500 Body weight 48.53 kg Dejon Nesheim DO Work Phone: [facility] 04-22-2021 15:15-0500 Body height 154.9 cm Dejon Nesheim DO Work Phone: [facility] 08-19-2020 19:07-0500 BP Diastolic 85 mm[Hg] Malik PARK Work Phone: 08-19-2020 19:07-0500 BP Systolic 137 mm[Hg] Malik PARK Work Phone: 08-19-2020 19:07-0500 Pulse (Heart Rate) 80 /min Malik PARK Work Phone: 08-19-2020 19:07-0500 Pulse Oximetry 97 % Malik PARK Work Phone: 08-19-2020 19:07-0500 Respiratory Rate 16 /min Malik PARK Work Phone: 08-19-2020 17:39-0500 BMI (Body Mass Index) 20.49 kg/m2 Malik PARK Work Phone: 08-19-2020 17:39-0500 Body weight 50.8 kg Malik PARK Work Phone: 08-19-2020 17:39-0500 Height 157.5 cm Malik PARK Work Phone: 08-19-2020 17:37-0500 Body Temperature 99.1 [degF] Malik PARK Work Phone: 08-19-2020 17:37-0500 BP Diastolic 77 mm[Hg] Malik PARK Work Phone: 08-19-2020 17:37-0500 BP Systolic 143 mm[Hg] Malik PARK Work Phone: 08-19-2020 17:37-0500 Pulse (Heart Rate) 86 /min Malik PARK Work Phone: 08-19-2020 17:37-0500 Pulse Oximetry 98 % Malik PARK Work Phone: 08-19-2020 17:37-0500 Respiratory Rate 18 /min Malik PARK Work Phone: NEGATED: Osmani henriquez04-11-2022 09:22-0400 Body height 152.4 cm Dm Carmen AT [facility] Work Phone: NEGATED: Highlighted [id number] 09:22-040 Body height 152 cm Dm Carmen AT [facility] Work Phone: NEGATED: Highlighted [id number] 09:22-0400 Body mass index (BMI) [Ratio] 21.56 kg/m2 Dm Carmen AT [facility] Work Phone: NEGATED: Highlighted [id number] 09:22-0400 Body weight 49.9 kg Dm Carmen AT [facility] Work Phone: NEGATED: Highlighted [id number] 09:-0400 Body weight 50 kg Dm Carmen AT [facility] Work Phone: Encounters Encounter Date Encounter Type Care Provider Facility Start: 12-17-2024 ambulatory LEONARDO LYLES Facility: [facility] Start: 12-03-2024 End: 12-03-2024 Telephone encounter Leonardo Lyles [employer] Work Phone: [facility] Comment on above: Patient Update (PT u pdate) Start: 12-03-2024 ambulatory JAYDA MONTELONGO MD~[id number] [facility] Start: 12-01-2024 Evaluation and management of inpatient Ramana Chi Eulalio Facility:[facility] Start: 12-01-2024 End: 12-01-2024 Telephone encounter Leonardo Lyles APRN.[employer] Work Phone: [facility] Comment on above: Patient Update (upda te) Start: 12-01-2024 Non-patient / Non-visit Dr. Pedro Larkin [facility] Work Phone: Start: 11-30-2024 Non-patient / Non-visit Dr. Pedro Larkin DO [facility] Work Phone: Start: 11-30-2024 End: 12-01-2024 ambulatory Iván Larkin Facility:[facility] Start: 11-30-2024 End: 12-01-2024 Evaluation and management of inpatient Dr. Iván Larkin DO -[facility] 3 Work Phone: Start: 11-30-2024 End: 12-01-[address] Dorian Ballard MD Work Phone: [facility] Work Phone: Start: 11-25-2024 End: 11-25-2024 Telephone encounter Leonardo Lyles APRN.[employer] Work Phone: [facility] Comment on above: Orders (Home health aid and social work ) Start: 11-19-2024 End: 11-19-2024 ambulatory Mercedes Tovar RN Work Phone: [employer] Start: 11-19-2024 End: 11-19-2024 Home visit Mercedes Tovar RN Work Phone: [employer] Comment on above: Initial phone contac t for Transitional Care Management Start: 11-18-2024 End: 11-18-2024 Telephone encounter Leonardo Lyles APRN.[employer] Work Phone: [facility] Comment on above: Orders Start: 11-07-2024 End: 11-18-2024 Evaluation and management of inpatient Devyn Faith DO Work Phone: [facility] PCU H6 Comment on above: Colitis due to Clost ridioides difficile (Primary Dx); Acute pulmonary edema (HCC) Start: 10-27-2024 End: 10-27-2024 Patient encounter procedure Bharati Dumont MD Work Phone: [facility] Comment on above: Trigger middle finge r of left hand (Primary Dx); Trigger ring finger of left hand Start: 10-27-2024 End: 10-27-2024 ambulatory BHARATI DUMONT JR Facility:[facility] Start: 10-24-2024 End: 10-24-2024 ambulatory JAYDA MONTELONGO MD~[id number] [facility] Start: 10-20-2024 End: 10-20-2024 Telephone encounter Leonardo Lyles APRN.[employer] Work Phone: [facility] Comment on above: Opened In Error Start: 10-20-2024 End: 10-20-2024 Office outpatient visit 15 minutes Kevin Wood MD Work Phone: [facility] Comment on above: Preop examination (P rimary Dx); Postsurgical hypothyroidism; Adjustment disorder with mixed anxiety and depressed mood; Migraine without status migrainosus, not intractable, unspecified migraine type Start: 10-20-2024 End: 10-20-2024 Preprocedural examination done Kevin Wood MD Work Phone: [facility] Work Phone: Start: 10-20-2024 End: 10-20-2024 ambulatory KEVIN WOOD Facility:[facility] Start: 10-07-2024 End: 10-07-2024 Telephone encounter Leonardo Lyles APRN.[employer] Work Phone: [facility] Comment on above: Clerical Start: 10-01-2024 End: 10-01-2024 Follow-up encounter Kevin Wood MD Work Phone: [facility] Start: 09-30-2024 End: 09-30-2024 ambulatory KEVIN WOOD Facility:[facility] Start: 09-29-2024 End: 09-29-2024 Telephone encounter Leonardo Lyles APRN.[employer] Work Phone: [facility] Start: 09-17-2024 End: 09-17-2024 ambulatory CJ DALE Facility:[facility] Start: 09-17-2024 End: 09-17-2024 Follow-up encounter Cj Dale PA-C Work Phone: [facility] Start: 09-16-2024 End: 09-16-2024 Telephone encounter Leonardo Lyles APRN.[employer] Work Phone: [facility] Start: 09-15-2024 End: 09-15-2024 Office outpatient visit 15 minutes Cj Dale PA-C Work Phone: [facility] Comment on above: Abnormal urinalysis (Primary Dx); Recurrent UTI (urinary tract infection) Start: 09-15-2024 End: 09-15-2024 ambulatory CJ DALE Facility:[facility] Start: 09-11-2024 End: 09-11-2024 Telephone encounter Leonardo Lyles APRN.[employer] Work Phone: [facility] Comment on above: Orders (Urine Analos is) Start: 09-05-2024 End: 09-05-2024 Telephone encounter Yumiko Zapien DO Work Phone: [facility] Comment on above: Patient Update (UTI) Start: 09-03-2024 End: 09-03-2024 ambulatory KEVIN WOOD Facility:[facility] Start: 09-03-2024 End: 09-03-2024 Telephone encounter Kevin Wood MD Work Phone: [facility] Comment on above: Clerical (Pre-Operat mikayla Clearance) Start: 09-03-2024 End: 09-03-2024 Office outpatient visit 15 minutes Kevin Wood MD Work Phone: [facility] Comment on above: Preop examination (P rimary Dx) Start: 09-03-2024 End: 09-03-2024 Preprocedural examination done Kevin Wood MD Work Phone: [facility] Work Phone: Start: 08-18-2024 End: 08-18-2024 Follow-up encounter Leonardo Lyles APRN.[employer] Work Phone: [facility] Start: 08-18-2024 End: 08-18-2024 ambulatory LEONARDO LYLES Facility:[facility] Start: 08-14-2024 End: 08-14-2024 Patient encounter procedure Leonardo Neves Yoanmeagan LOPEZ.[employer] Work Phone: [facility] Comment on above: Encounter for examin ation following treatment at hospital (Primary Dx); Anemia, unspecified type; Hypokalemia; Adjustment disorder with mixed anxiety and depressed mood; Postsurgical hypothyroidism; Generalized abdominal pain; Hypothyroidism, acquired; Hyperlipidemia, mixed Start: 08-14-2024 End: 08-14-2024 ambulatory LEONARDO Pura LYLES Facility:[facility] Start: 08-06-2024 End: 08-06-2024 ambulatory JAYDA MONTELONGO MD~[id number] [facility] Start: 07-18-2024 End: 07-24-2024 ambulatory [facility] Start: 07-18-2024 End: 07-24-2024 Emergency department patient visit Marcell Ballard MD Work Phone: [facility] Comment on above: Severe sepsis (HCC) (Primary Dx); Chronic midline low back pain without sciatica; Inability to walk; Anorexia; Myalgia; Dehydration; Chronic diarrhea; Pneumonia due to infectious organism, unspecified laterality, unspecified part of lung; Leukocytosis, unspecified type; Fall, initial encounter Start: 07-10-2024 End: 07-10-2024 Patient encounter procedure Verenice Roca MD Work Phone: [facility] Comment on above: Lumbar radiculopathy (Primary Dx); Preoperative clearance Start: 07-10-2024 End: 07-10-2024 Preoperative state Verenice Roca MD Work Phone: [facility] Start: 07-10-2024 End: 07-10-2024 ambulatory LEONARDO LYLES Facility:[facility] Start: 07-10-2024 Encounter for other preprocedural examination VERENICE ROCA [facility] Start: 07-04-2024 End: 07-04-2024 Telephone encounter Leonardo Lyles [employer] Work Phone: [facility] Comment on above: Results Start: 06-27-2024 End: 06-27-2024 Refill Leonardo Lyles [employer] Work Phone: [facility] Comment on above: Refill Request Start: 06-19-2024 End: 06-19-[address] Start: 05-07-2024 End: 05-07-2024 Refill Verenice Roca MD Work Phone: [facility] Comment on above: Refill Request Start: 04-23-2024 End: 04-23-2024 ambulatory [facility] Start: 04-16-2024 End: 04-16-2024 ambulatory [facility] Start: 04-16-2024 End: 04-16-2024 Subsequent hospital visit by physician Cali Morrison MD Work Phone: [facility] Comment on above: Other spondylosis wi th radiculopathy, lumbosacral region; Spondylolisthesis, lumbar region; Other specified postprocedural states Arrived Start: 04-16-2024 End: 04-16-2024 ambulatory [facility] Start: 04-07-2024 End: 04-07-2024 Telephone encounter Leonardo Lyles [employer] Work Phone: [facility] Comment on above: Erroneous encounter- disregard Results Start: 04-01-2024 ambulatory LEONARDO LYLES Facility: [facility] Start: 04-01-2024 End: 04-01-2024 Subsequent hospital visit by physician Edilberto Atkins [facility] Comment on above: Generalized abdomina l pain [R10.84] Start: 04-01-2024 End: 04-01-2024 ambulatory LEONARDO LYLES Facility:[facility] Start: 04-01-2024 End: 04-01-2024 Patient encounter procedure Verenice Roca MD Work Phone: [facility] Comment on above: Generalized abdomina l pain (Primary Dx); Continuous overuse of medication Start: 03-31-2024 End: 06-30-2024 Transcribe Orders Cali Morrison MD Work Phone: [facility] Comment on above: Other spondylosis wi th radiculopathy, lumbosacral region (Primary Dx); Spondylolisthesis, lumbar region; Other specified postprocedural states Start: 03-15-2024 End: 03-17-2024 Refill Leonardo Lyles [employer] Work Phone: [facility] Comment on above: Refill Request Start: 02-26-2024 End: 02-26-2024 ambulatory [facility] Start: 02-15-2024 End: 02-15-2024 Patient encounter procedure Bharati Dumont MD Work Phone: [facility] Comment on above: 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 Start: 02-01-2024 End: 02-01-2024 Patient encounter procedure Lyndon Miranda [employer] Work Phone: [facility] Comment on above: Acute pain of left k nee (Primary Dx); Left ankle injury, initial encounter Start: 01-01-2024 End: 01-01-2024 Emergency department patient visit LEONARDO LYLES Facility:[facility] Start: 12-28-2023 End: 12-28-2023 ambulatory ALL[facility] Start: 12-12-2023 Refill Leslie Sharma MD Work Phone: [facility] Comment on above: Refill Request Start: 11-09-2023 End: 11-09-2023 Patient encounter procedure Bharati Dumont MD Work Phone: [employer] Comment on above: 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, right (Primary Dx) Start: 10-17-2023 End: 10-17-2023 ambulatory Emma Funai OT/L Work Phone: [facility] Comment on above: Right hand pain (Chloe brandon Dx); Stiffness of joint Start: 09-25-2023 End: 09-25-2023 ambulatory Emma Funai OT/L Work Phone: [facility] Comment on above: Right hand pain (Chloe brandon Dx) Start: 09-19-2023 End: 09-19-2023 ambulatory Emma Funai OT/L Work Phone: [facility] Comment on above: Right hand pain (Chloe brandon Dx); Stiffness of joint Start: 09-19-2023 End: 09-19-2023 Patient encounter procedure Bharati Dumont MD Work Phone: [employer] Comment on above: 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, right (Primary Dx) Start: 09-12-2023 End: 09-12-2023 ambulatory Emma Funai OT/L Work Phone: [employer] [facility] Comment on above: Right hand pain (Chloe brandon Dx) Start: 09-12-2023 Refill Leia cuello DO Work Phone: [facility] Comment on above: Refill Request Start: 08-29-2023 End: 08-29-2023 ambulatory Emma Funai OT/L Work Phone: [employer] [facility] Comment on above: Right hand pain (Chloe brandon Dx); Stiffness of joint Start: 08-29-2023 End: 08-29-2023 Patient encounter procedure Bharati Dumont MD Work Phone: [facility] [employer] Comment on above: 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, right (Primary Dx); Pain in left wrist Start: 08-21-2023 End: 08-21-2023 ambulatory Emma Funai OT/L Work Phone: [facility] Comment on above: Right hand pain (Chloe brandon Dx) Start: 08-08-2023 End: 08-08-2023 Patient encounter procedure Bharati Dumont MD Work Phone: [employer] [facility] Comment on above: Trigger little finge r of right hand (Primary Dx); Trigger ring finger of right hand; Arthritis of right hand Trigger little finge r of right hand (Primary Dx); Trigger finger, right ring finger Start: 07-26-2023 Preprocedural examination done Bharati Dumont Jr., MD Work Phone: [facility] Work Phone: Start: 07-26-2023 Encounter for other preprocedural examination KEVIN [facility] Start: 04-18-2023 Telephone encounter Leonardo rhodes [employer] Work Phone: [facility] Comment on above: Missed Appointment ( #2 No Show #2 Letter) Start: 03-20-2023 Telephone encounter Leonardo rhodes [employer] Work Phone: [facility] Comment on above: Referral Request (Op hthalmology ) Start: 02-16-2023 Refill Leonardo P Farage [employer] Work Phone: [facility] Comment on above: Refill Request Start: 02-13-2023 Refill Leonardo P Farage [employer] Work Phone: [facility] Comment on above: Refill Request Start: 12-20-2022 End: 12-20-2022 Patient encounter procedure Bharati Dumont MD Work Phone: [employer] [facility] [employer] Comment on above: Injury of triangular fibrocartilage complex (TFCC) of right wrist, subsequent encounter (Primary Dx); Right hand pain; Carpal tunnel syndrome of right wrist Start: 11-24-2022 End: 11-24-2022 Patient encounter procedure Britany Hodges PA-C Work Phone: [facility] [employer] Comment on above: Injury of triangular fibrocartilage complex (TFCC) of right wrist, initial encounter (Primary Dx); Right hand pain Start: 11-13-2022 Refill Leonardo P Farage [employer] Work Phone: [facility] Comment on above: Refill Request Start: 09-13-2022 End: 09-13-2022 Patient encounter procedure Bharati Dumont MD Work Phone: [facility] [employer] Comment on above: Trigger middle finge r of right hand (Primary Dx); Abscess of right middle finger Start: 08-15-2022 Refill Leonardo P Farage [employer] Work Phone: [facility] Comment on above: Refill Request Start: 08-14-2022 Refill Leonardo P Farage [employer] Work Phone: [facility] Comment on above: Refill Request Start: 08-11-2022 Refill Leonardo P Farage [employer] Work Phone: [facility] Comment on above: Rx Refills; Refill R equest Start: 08-07-2022 Telephone encounter Eloisa Salazar bisi PA-C Work Phone: [facility] Comment on above: Orders Start: 08-02-2022 End: 08-02-2022 Patient encounter procedure Bharati Dumont MD Work Phone: [facility] Comment on above: Trigger middle finge r of right hand (Primary Dx); Abscess of right middle finger Start: 07-24-2022 End: 07-24-2022 Patient encounter procedure Britany Hodges PA-C Work Phone: [facility] Comment on above: Postoperative state (Primary Dx) Start: 07-18-2022 Patient Outreach Leonardo Lyles APRN.[employer] Work Phone: [facility] Comment on above: Transition Of Care ( [facility]- D/C 07/17/22) Start: 07-17-2022 Refill Kristal chadwick [employer] Work Phone: [facility] Comment on above: Refill Request Start: 07-14-2022 Telephone encounter Bharati Hunter MD Work Phone: [facility] Comment on above: Patient Update (Luma ent was a Direct-Admit per [facility]) Start: 07-05-2022 End: 07-05-2022 Patient encounter procedure Bharati Dumont MD Work Phone: [facility] Comment on above: Trigger middle finge r of right hand (Primary Dx) Start: 06-28-2022 End: 06-28-2022 Patient encounter procedure Bharati Dumont MD Work Phone: [facility] Comment on above: Trigger middle finge r of right hand (Primary Dx) Start: 06-21-2022 End: 06-21-2022 Patient encounter procedure Bharati Dumont MD Work Phone: [facility] Comment on above: Trigger middle finge r of right hand (Primary Dx) Start: 06-19-2022 End: 06-19-2022 ambulatory Leonardo Pura Miltonmeagan [employer] Work Phone: [facility] Comment on above: Diarrhea, unspecifie d type (Primary Dx); Abdominal pain, unspecified abdominal location; Postoperative state; Fatigue, unspecified type Start: 06-19-2022 End: 06-19-2022 Telemedicine consultation with patient Leonardo Lyles [employer] Work Phone: [facility] Start: 06-14-2022 End: 06-14-2022 Patient encounter procedure Britany Hodges PA-C Work Phone: [facility] Comment on above: Postoperative state (Primary Dx); Nausea Start: 06-07-2022 Orders Only Bharati Dumont MD Work Phone: [facility] [employer] Comment on above: Trigger middle finge r of right hand (Primary Dx); Postoperative infection, unspecified type, subsequent encounter Start: 06-02-2022 Telephone encounter Leonardo Pura Yoan rhodes [employer] Work Phone: [facility] Comment on above: Results Start: 06-02-2022 End: 06-02-2022 Patient encounter procedure Bharati Dumont MD Work Phone: [facility] [employer] Comment on above: Trigger middle finge r of right hand (Primary Dx) Start: 05-31-2022 Telephone encounter Leonardo rhodes [employer] Work Phone: [facility] Comment on above: Appointment Missed Appointment ( #2 No Show #1 Letter) Start: 05-26-2022 Telephone encounter Leonardo rhodes [employer] Work Phone: [facility] Comment on above: Referral Request (ga stro) Start: 05-26-2022 End: 05-26-2022 Patient encounter procedure Leonardo Lyles [employer] Work Phone: [facility] Comment on above: Diarrhea, unspecifie d type (Primary Dx); Abdominal pain, unspecified abdominal location; Screening for diabetes mellitus; Hyperlipidemia, mixed; Hypothyroidism, acquired; Bilateral hearing loss, unspecified hearing loss type; Severe malnutrition (HCC) Start: 05-25-2022 Telephone encounter Leonardo rhodes [employer] Work Phone: [facility] Comment on above: Medication Request Refill Request Start: 05-24-2022 End: 05-24-2022 Patient encounter procedure Bharati Dumont MD Work Phone: [facility] Comment on above: Trigger middle finge r of left hand (Primary Dx) Start: 05-10-2022 End: 05-10-2022 Patient encounter procedure Bharati Dumont MD Work Phone: [facility] Comment on above: Trigger middle finge r of left hand (Primary Dx); Trigger middle finger of right hand Trigger middle finge r of right hand (Primary Dx) Start: 04-27-2022 Refill Leonardo Lyles [employer] Work Phone: [facility] Comment on above: Refill Request Start: 04-05-2022 End: 04-05-2022 Patient encounter procedure Bharati Dumont MD Work Phone: [facility] Comment on above: Trigger middle finge r of left hand (Primary Dx); Trigger middle finger of right hand Start: 12-29-2021 Telephone encounter Leonardo rhodes [employer] Work Phone: [facility] Comment on above: Missed Appointment ( #1 no show , no letter spoke with patient, rescheduled) Start: 11-24-2021 Telephone encounter Leonardo rhodes [employer] Work Phone: [facility] Comment on above: Patient Question Start: 11-22-2021 Telephone encounter Leonardo rhodes [employer] Work Phone: [facility] Comment on above: Patient Question Start: 11-15-2021 End: 11-15-2021 Subsequent hospital visit by physician Edilberto Atkins 2 [facility] Comment on above: Spondylosis without myelopathy or radiculopathy, 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] Start: 10-10-2021 Telephone encounter Leonardo rhodes [employer] Work Phone: [facility] Comment on above: Patient Question Start: 10-10-2021 End: 10-10-2021 Emergency department patient visit Theresa Lainez MD Work Phone: [facility] Emergency Dept Comment on above: Neck pain (Primary D x) Start: 10-07-2021 End: 10-07-2021 Subsequent hospital visit by physician Edilberto Atkins 2 [facility] Comment on above: Acute bronchitis, un specified organism [J20.9] Start: 10-07-2021 End: 10-07-2021 Patient encounter procedure Leonardo Lyles [employer] Work Phone: [facility] Comment on above: Acute bronchitis, un specified organism (Primary Dx) Start: 09-19-2021 End: 09-19-2021 Pt evaluation Marques De La Cruz MD Work Phone: [facility] Work Phone: Start: 05-07-2021 End: 05-10-2021 Emergency department patient visit Brant Mckee MD Work Phone: [facility] Comment on above: Fall, initial encoun ter (Primary Dx) Start: 04-21-2021 End: 04-26-2021 Evaluation and management of inpatient Dejon Cordelia Selina DO Work Phone: [facility] 7E Oncology Comment on above: Nausea and vomiting, intractability of vomiting not specified, unspecified vomiting type (Primary Dx); Diarrhea, unspecified type; Generalized abdominal pain Start: 11-09-2020 End: 11-09-2020 Subsequent hospital visit by physician Marques De La Cruz MD Work Phone: [facility] Start: 08-19-2020 End: 08-19-2020 Emergency department patient visit Malik Echevarria Work Phone: [facility] Emergency Dept Comment on above: Strain of right shou lder, initial encounter (Primary Dx); Fall, initial encounter Procedures Date Procedure Procedure Detail Performing Clinician Start: 12-01-[address] Dorian Ballard MD Work Phone: Start: 11-30-2024 X-ray of cervical spine Dr. Dorian Ballard MD Work Phone: Start: 11-30-[address] Dorian Ballard MD Work Phone: Start: 11-18-2024 Radex spine lumbosac ral minimum 4 views Cali Morrison MD Work Phone: Start: 11-18-2024 Basic metabolic pane l calcium total Justus Herrera MD Work Phone: Start: 11-18-2024 Manual Differential panel - Blood Justus Herrera MD Work Phone: Start: 11-17-2024 Blood occult peroxid ase actv qual feces 1-3 spec Justus Herrera MD Work Phone: Start: 11-17-2024 Basic metabolic pane l calcium total Justus Herrera MD Work Phone: Start: 11-17-2024 Manual Differential panel - Blood Justus Herrera MD Work Phone: Start: 11-16-2024 Basic metabolic pane l calcium total Justus Herrera MD Work Phone: Start: 11-16-2024 Manual Differential panel - Blood Justus Herrera MD Work Phone: Start: 11-15-2024 Basic metabolic pane l calcium total Justus Herrera MD Work Phone: Start: 11-15-2024 Manual Differential panel - Blood Justus Herrera MD Work Phone: Start: 11-14-2024 Basic metabolic pane l calcium total Justus Herrera MD Work Phone: Start: 11-14-2024 Manual Differential panel - Blood Justus Herrera MD Work Phone: Start: 11-13-2024 Basic metabolic pane l calcium total Justus Herrera MD Work Phone: Start: 11-13-2024 Manual Differential panel - Blood Justus Herrera MD Work Phone: Start: 11-12-2024 Basic metabolic pane l calcium total Justus Herrera MD Work Phone: Start: 11-12-2024 Manual Differential panel - Blood Justus Herrrea MD Work Phone: Start: 11-10-2024 Basic metabolic pane l calcium total Zoltan T. Lauren DO Work Phone: Start: 11-09-2024 Echo tthrc r-t 2d w/wom-mode compl spec&colr d Nico Cordelia Liz [employer] Work Phone: Start: 11-09-2024 Basic metabolic pane l calcium total Nico Cordelia Liz [employer]IDE Work Phone: Start: 11-09-2024 Manual Differential panel - Blood Nico Cordelia Liz [employer]IDE Work Phone: Start: 11-08-2024 Urnls dip stick/tabl et reagent auto microscopy Nico Cordelia Liz [employer]IDE Work Phone: Start: 11-08-2024 Basic metabolic pane l calcium total Nico Cordelia Liz [employer]IDE Work Phone: Start: 11-08-2024 Ecg routine ecg w/le ast 12 lds trcg only w/o i&r Zoltan T. Lauren DO Work Phone: Start: 11-08-2024 Glucose quantitative blood xcpt reagent strip Devyn Galveze DO Work Phone: Start: 11-07-2024 Iaadiadoo not otherw ise specified Nico Hill [employer]IDE Work Phone: Start: 11-07-2024 Respiratory pathogen s DNA and RNA panel - Nasopharynx by FREDERIC with non-probe detection Nico Hill [employer]IDE Work Phone: Start: 11-07-2024 Bacteria identified in Blood by Culture Nico Hill [employer] AIDE Work Phone: Start: 11-07-2024 Basic metabolic pane l calcium total Nico Hill [employer]IDE Work Phone: Start: 11-07-2024 Radiologic exam ches t single view Nico Hill [employer]IDE Work Phone: Start: 10-27-2024 End: 10-27-2024 Injection 1 tendon sheath/ligament aponeurosis Bharati Dumont MD Work Phone: Start: 09-15-2024 Urnls dip stick/tabl et rgnt auto w/o microscopy Cj Dale PA-C Work Phone: Start: 08-18-2024 Thyrotropin [Units/volume] in Serum or Plasma Devyn Etowah DO Work Phone: Start: 07-24-2024 Basic metabolic pane l calcium total Sheldon Berumen DO Work Phone: Start: 07-23-2024 Basic metabolic pane l calcium total Sheldon Berumen DO Work Phone: Start: 07-22-2024 Basic metabolic pane l calcium total Marcell López MD Work Phone: Start: 07-21-2024 Comprehensive metabo lic panel Radha Kitchen MD Work Phone: Start: 07-20-2024 Iaad ia clostridium difficile toxin Waylon Steel DO Work Phone: Start: 07-20-2024 Inf agent det nuclei c acid clostridium amp probe Waylon Steel DO Work Phone: Start: 07-20-2024 Comprehensive metabo lic panel Radha Kitchen MD Work Phone: Start: 07-19-2024 Comprehensive metabo lic panel Radha Kitchen MD Work Phone: Start: 07-18-2024 Assay of lactate Wade Tripathi DO Work Phone: Start: 07-18-2024 LEGIONELLA AND STREPTOCOCCUS URINE ANTIGEN, ORDERABLE Marcell López MD Work Phone: Start: 07-18-2024 Urinalysis complete panel - Urine Radha Kitchen MD Work Phone: Start: 07-18-2024 URINE HOLD CUP Marcell López MD Work Phone: Start: 07-18-2024 Urnls dip stick/tabl et reagent auto microscopy Radha Kitchen MD Work Phone: Start: 07-18-2024 Radiologic exam ches t 2 views Radha Kitchen MD Work Phone: Start: 07-18-2024 End: 07-18-2024 Bacteria identified in Blood by Culture Wade Tripathi DO Work Phone: Start: 07-18-2024 Procalcitonin (pct) Zulema berenice Kitchen MD Work Phone: Start: 07-18-2024 Ct cervical spine w/ o contrast material Marcell Ballard MD Work Phone: Start: 07-18-2024 Ct head/brain w/o contrast material Marcell Ballard MD Work Phone: Start: 07-18-2024 SARS-COV-2, FLU A/B, AND RSV COMBO Marcell Ballard MD Work Phone: Start: 07-18-2024 C-reactive protein Malachi Ballard MD Work Phone: Start: 07-18-2024 Comprehensive metabo lic panel Marcell Ballard MD Work Phone: Start: 07-18-2024 Manual Differential panel - Blood Marcell Ballard MD Work Phone: Start: 07-18-2024 Ecg routine ecg w/le ast 12 lds trcg only w/o i&r Marcell Ballard MD Work Phone: Start: 04-16-2024 Myelography via lumb ar inject rs&i lumbosacral Cali Morrison MD Work Phone: Start: 04-16-2024 Blood count complete automated Ulises Schilling MD Work Phone: Start: 02-15-2024 Arthrocentesis aspir &/inj small jt/bursa w/o us Bharati Dumont MD Work Phone: Start: 02-01-2024 Radex ankle complete minimum 3 views Lyndon Miranda [employer] Work Phone: Start: 12-20-2022 Injection therapeuti c carpal tunnel Bharati Dumnot MD Work Phone: Start: 11-24-2022 Radex hand minimum 3 views Britany Hodges PA-C Work Phone: Start: 06-02-2022 Thyrotropin [Units/volume] in Serum or Plasma Alexandra Louise RN Start: 04-07-2022 Injection 1 tendon sheath/ligament aponeurosis Bharati Dumont MD Work Phone: Start: 10-10-2021 Ct cervical spine w/ o contrast material Josefa Meza MD Work Phone: Start: 10-07-2021 Radiologic exam ches t 2 views Leonardo Lyles [employer] Work Phone: Start: 09-19-2021 End: 09-19-2021 BP scrn no perf at interval Marques De La Cruz MD Work Phone: Start: 09-19-2021 End: 09-19-2021 Calc BMI norm parameters Marques Mckinney Work Phone: Start: 09-19-2021 End: 09-19-2021 Docrev cur meds by argelia De La Cruz MD Work Phone: Start: 09-19-2021 End: 09-19-2021 Falls plan of care not done for unspecified reasons Marques De La Cruz MD Work Phone: Start: 09-19-2021 End: 09-19-2021 Falls risk not documented - reason not given Marques De La Cruz MD Work Phone: Start: 09-19-2021 End: 09-19-2021 No doc of pain Marques De La Cruz MD Work Phone: Start: 09-19-2021 End: 09-19-2021 Patient encounter procedure Marques De La Cruz MD Work Phone: Start: 09-19-2021 End: 09-19-2021 Pt falls assess docd 2/> falls/fall w/injury/yr Marques De La Cruz MD Work Phone: Start: 09-19-2021 End: 09-19-2021 Pt scrnd tobacco use rcvd tobacco cessation talk Marques De La Cruz MD Work Phone: Start: 09-19-2021 End: 09-19-2021 Radex shoulder complete minimum 2 views Marques De La Cruz MD Work Phone: Start: 05-09-2021 Echo tthrc r-t 2d w/wom-mode compl spec&colr d Kay Ivey APRN - [employer] Work Phone: Start: 05-09-2021 Blood count complete auto&auto difrntl wbc Kay Ivey APRN - [employer] Work Phone: Start: 05-08-2021 Duplex scan extracra nial art compl bi study Kay Ivey APRN - [employer] Work Phone: Start: 05-07-2021 Radiologic examinati on knee 3 views Yousif Gallo MD Work Phone: Start: 05-07-2021 Ct cervical spine w/ o contrast material Josh GOODMAN Work Phone: Start: 05-07-2021 Ct head/brain w/o contrast material Josh GOODMAN Work Phone: Start: 05-07-2021 Basic metabolic pane l calcium total Josh Mccarty MAXINE Work Phone: Start: 05-07-2021 Manual Differential panel - Blood Josh Mccarty MAXINE Work Phone: Start: 05-07-2021 Radiologic exam ches t single view Josh Mccarty MAXINE Work Phone: Start: 05-07-2021 Ecg routine ecg w/le ast 12 lds w/i&r Josh Lul GOODMAN Work Phone: Start: 04-26-2021 Assay of magnesium Zoya Cottrell MD Work Phone: Start: 04-26-2021 BASIC METABOLIC PANE L W/ REFLEX TO MG FOR LOW K Mhd Balta Gonzalez MD Work Phone: Start: 04-24-2021 Basic metabolic pane l calcium total Griffin Cottrell MD Work Phone: Start: 04-23-2021 Potassium serum plasma/whole blood Nils Little MD Work Phone: Start: 04-22-2021 Assay of magnesium Faina Edge MD Work Phone: Start: 04-21-2021 Iadna-dna/rna gi pth gn multiplex probe tq 12- Malik Echevarria MD Work Phone: Start: 04-21-2021 Inf agent det nuclei c acid clostridium amp probe Malik Echevarria MD Work Phone: Start: 04-21-2021 ADD ON LAB TEST Faina Edge MD Work Phone: Start: 04-21-2021 ADD ON LAB TEST Faina Edge MD Work Phone: Start: 04-21-2021 Computed tomography of abdomen and pelvis with contrast Dejon G Nesheim DO Work Phone: Start: 04-21-2021 Basic metabolic pane l calcium total Djeon G Nesheim DO Work Phone: Start: 04-21-2021 Culture bacterial quanttative colony count urine Dejon G Nesheim DO Work Phone: Start: 04-21-2021 Urnls dip stick/tabl et rgnt auto w/o microscopy Dejon G Miriamheim DO Work Phone: Start: 04-21-2021 Ecg routine ecg w/le ast 12 lds w/i&r Dejon Cordelia Pinedaheim DO Work Phone: Start: 11-09-2020 Ct upper extremity w/contrast material Marques De La Cruz MD Work Phone: Start: 11-09-2020 Arthrocentesis aspir &/inj major jt/bursa w/o us Marques De La Cruz MD Work Phone: Start: 08-19-2020 Radex humerus minimu m 2 views Renatadaniel Guerrier Work Phone: Start: 08-19-2020 Radex shoulder compl ete minimum 2 views Malik Echevarria Work Phone: [employer]: Highlighted rowStart: 09-19-2021 End: 09-19-2021 Documentation of current medications Dm Carmen AT NEGATED: Highlighted rowStart: 09-19-2021 End: 09-19-2021 Smoking cessation education Dm Carmen AT Plan of Treatment Date Care Activity Detail Author Start: 05-07-2031 DTaP/Tdap/Td vaccine (2 - Td or Tdap) DTaP/Tdap/Td vaccine (2 - Td or Tdap) [facility] Start: 05-07-2031 DTaP/Tdap/Td Vaccines (2 - Td or Tdap) DTaP/Tdap/Td Vaccines (2 - Td or Tdap) [facility] Start: 05-07-2031 Urine microalbumin profile [facility] Start: 11-19-2027 Diabetes Screening Diabetes Screening [facility] Start: 08-19-2027 Diabetes Screening Diabetes Screening [facility] Start: 07-24-2027 Diabetes Screening Diabetes Screening [facility] Start: 03-20-2026 Diabetes Screening Diabetes Screening [facility] Start: 08-18-2025 Thyroid stimulating hormone measurement TSH Level [facility] Start: 07-17-2025 DIABETES SCREEN DIABETES SCREEN [facility] Start: 07-17-2025 Diabetes Screening Diabetes Screening [facility] Start: 07-13-2025 DIABETES SCREEN DIABETES SCREEN [facility] Start: 06-02-2025 DIABETES SCREEN DIABETES SCREEN [facility] Start: 02-17-2025 End: 02-17-2025 Patient encounter procedure 02/17/2025 1:20 PM EDT Office Visit [facility] [address] [place] [address] Leonardo Lyles, [employer] [address] [place] [address] Return in about 6 months (around 02/14/2025) for 40 Min Wellness Exam. [facility] Comment on above: Return in about 6 months (around ) for 40 Min Wellness Exam. Start: 02-09-2025 Influenza vaccination Influenza Vaccine (Season Ended) [facility] Start: 02-06-2025 End: 02-06-2025 Patient encounter procedure 02/06/2025 10:00 AM EDT Office Visit [facility] [address] [place] [address] Ester Hu, [employer] [address] [place] [address] est care [facility] Comment on above: est care Start: 12-17-2024 End: 12-17-2024 Patient encounter procedure 12/17/2024 1:45 PM EDT Office Visit [facility] [address] [place] [address] Bharati Dumont Jr., MD [address] [address] rt hand pain [facility] Comment on above: rt hand pain Start: 12-01-2024 Patient discharge [facility] Start: 11-30-2024 Following clinical pathway protocol [facility] Start: 11-30-2024 Assessment of risk of venous thromboembolism [facility] Start: 11-30-2024 Insertion of catheter into peripheral vein [facility] Start: 11-30-2024 Providing care according to standard [facility] Start: 11-30-2024 Provision of activity privileges [facility] Start: 11-30-2024 Referral to occupational therapist [facility] Start: 11-30-2024 Referral to service [facility] Start: 11-30-2024 [facility] Start: 11-30-2024 Hospital admission, emergency, from emergency room, medical nature [facility] Start: 11-30-2024 Admission procedure [facility] Start: 11-30-2024 Referral to service [facility] Start: 11-25-2024 End: 11-25-2024 Patient encounter procedure 11/25/2024 2:40 PM EDT Office Visit [facility] [address] [place] [place] [address] Leonardo Lyles, [employer] [address] [place] [address] Hospital follow up [facility] Comment on above: Hospital follow up Start: 10-27-2024 End: 10-27-2024 Patient encounter procedure 10/27/2024 1:45 PM EDT Office Visit [facility] [address] [place] [address] Bharati Dumont Jr., MD [address] [address] Right Hand Pain/ Stiffness [facility] Comment on above: Right Hand Pain/ Stiffness Start: 10-20-2024 End: 10-20-2024 Patient encounter procedure 10/20/2024 1:20 PM EDT Office Visit [facility] [address] [place] [place] [address] Kevin Wood MD [address] [place] [address] Pre op [facility] Comment on above: Pre op Start: 09-30-2024 End: 12-30-2024 Urinalysis complete panel - Urine URINALYSIS (WITH MICROSCOPIC) WITH CULTURE IF INDICATED Lab Routine Recurrent UTI (urinary tract infection) Expected: 09/30/2024, Expires: 12/30/2024 [facility] Work Phone: Comment on above: Expected: 09/30/2024, Expires: Start: 09-17-2024 End: 12-17-2024 Urinalysis complete panel - Urine [facility] Work Phone: Comment on above: Expected: 09/17/2024, Expires: Start: 09-11-2024 End: 12-11-2024 Urinalysis complete panel - Urine URINALYSIS (WITH MICROSCOPIC) WITH CULTURE IF INDICATED Lab Routine Recurrent UTI (urinary tract infection) Expected: 09/11/2024, Expires: 12/11/2024 [facility] Work Phone: Comment on above: Expected: 09/11/2024, Expires: Start: 08-14-2024 End: 11-13-2024 CBC panel - Blood by Automated count COMPLETE BLOOD COUNT Lab Routine Anemia, unspecified type Expected: 08/14/2024, Expires: 11/13/2024 [facility] Comment on above: Expected: 08/14/2024, Expires: Start: 08-14-2024 End: 11-13-2024 Comprehensive metabolic 2000 panel - Serum or Plasma COMPREHENSIVE METABOLIC PANEL Lab Routine Hypokalemia Expected: 08/14/2024, Expires: 11/13/2024 [facility] Work Phone: Comment on above: Expected: 08/14/2024, Expires: Start: 08-14-2024 End: 11-13-2024 Lipid 1996 panel - Serum or Plasma LIPID PANEL BASIC Lab Routine Hyperlipidemia, mixed Expected: 08/14/2024, Expires: 11/13/2024 [facility] Comment on above: Expected: 08/14/2024, Expires: Start: 08-14-2024 End: 11-13-2024 Thyrotropin [Units/volume] in Serum or Plasma THYROID STIMULATING HORMONE Lab Routine Hypothyroidism, acquired Expected: 08/14/2024, Expires: 11/13/2024 [facility] Comment on above: Expected: 08/14/2024, Expires: Start: 08-14-2024 End: 11-13-2024 Urinalysis complete panel - Urine URINALYSIS (WITH MICROSCOPIC) WITH CULTURE IF INDICATED Lab Routine Encounter for examination following treatment at hospital Expected: 08/14/2024, Expires: 11/13/2024 [facility] Comment on above: Expected: 08/14/2024, Expires: Start: 07-28-2024 DIABETES SCREEN DIABETES SCREEN [facility] Start: 07-01-2024 End: 07-01-2024 Patient encounter procedure 07/01/2024 8:20 AM EST [facility] [address] [facility] [address] [place], [place] [id number] [place] [address] [place] [address]. [address] [place] [address] Est care [facility] Comment on above: Est care Start: 06-11-2024 Advance Directive Discussion Advance Directive Discussion [facility] Start: 06-11-2024 Medicare Advantage Annual Wellness Visit Medicare Advantage Annual Wellness Visit [facility] Start: 05-09-2024 End: 05-09-2024 Patient encounter procedure 05/09/2024 4:30 PM EST Appointment RADIO [facility] SCAN [facility] [address] [place], [place] [id number] scan doc & syngo RADIO CT SCAN [facility] Comment on above: scan doc & syngo Start: 04-16-2024 End: 04-16-2024 Patient encounter procedure [facility] Start: 02-15-2024 End: 02-15-2024 Patient encounter procedure 02/15/2024 9:15 AM EDT Office Visit ORTH [facility] [address] [place] [address] Bharati Dumont Jr., MD [address] [place] [address] Right Hand: Pain [facility] Comment on above: Right Hand: Pain Start: 02-10-2024 Covid-19 Vaccine ( season) Covid-19 Vaccine () [facility] Start: 02-10-2024 Covid-19 Vaccine () Covid-19 Vaccine () [facility] Start: 02-10-2024 Influenza vaccination [facility] Start: 11-15-2023 End: 11-15-2023 Patient encounter procedure 11/15/2023 2:00 PM EDT Office Visit [facility] Ear, Nose, and Throat (ENT) [address] [place] [id number] Hearing Test [facility] (ENT) Comment on above: Hearing Test Start: 10-31-2023 End: 10-31-2023 Patient encounter procedure 10/31/2023 10:45 AM EDT Office Visit [facility] [address] [place] [address] Bharati Dumont Jr., MD [address] [place] [address] right hand [facility] Comment on above: right hand Start: 10-31-2023 End: 10-31-2023 ambulatory 10/31/2023 10:15 AM EDT OT/PT/Speech Visit [facility] [address] [place] [address] Emma Saucedo, OT/L [address] [place], [place] [id number] PO-RT HAND [facility] Comment on above: PO-RT HAND Start: 06-11-2023 Advance Directive Discussion Advance Directive Discussion [facility] Start: 06-11-2023 Medicare Advantage Annual Wellness Visit Medicare Advantage Annual Wellness Visit [facility] Start: 06-02-2023 Thyroid stimulating hormone measurement TSH Level [facility] Start: 02-09-2023 Covid-19 Vaccine () Covid-19 Vaccine () [facility] Start: 02-09-2023 Influenza vaccination [facility] Start: 06-11-2022 ADVANCE DIRECTIVE DISCUSSION ADVANCE DIRECTIVE DISCUSSION [facility] Start: 05-26-2022 End: 07-26-2022 Amylase [Enzymatic activity/volume] in Serum or Plasma AMYLASE BLD Lab Routine Diarrhea, unspecified type Abdominal pain, unspecified abdominal location Expected: 05/26/2022, Expires: 07/26/2022 [facility] Work Phone: Comment on above: Expected: 05/26/2022, Expires: 3 Start: 05-26-2022 End: 07-26-2022 CBC panel - Blood by Automated count CBC Lab Routine Diarrhea, unspecified type Expected: 05/26/2022, Expires: 07/26/2022 [facility] Work Phone: Comment on above: Expected: 05/26/2022, Expires: 3 Start: 05-26-2022 End: 07-26-2022 Clostridioides difficile toxin genes [Presence] in Stool by FREDERIC with probe detection C. DIFFICILE PCR Lab Routine Diarrhea, unspecified type Expected: 05/26/2022, Expires: 07/26/2022 [facility] Work Phone: Comment on above: Expected: 05/26/2022, Expires: 3 Start: 05-26-2022 End: 07-26-2022 Comprehensive metabolic 2000 panel - Serum or Plasma COMP METABOLIC PANEL Lab Routine Diarrhea, unspecified type Expected: 05/26/2022, Expires: 07/26/2022 [facility] Work Phone: Comment on above: Expected: 05/26/2022, Expires: 3 Start: 05-26-2022 End: 07-26-2022 Gastrointestinal pathogens panel - Stool by Culture STOOL CULTURE/EIA Microbiology Routine Diarrhea, unspecified type Expected: 05/26/2022, Expires: 07/26/2022 [facility] Work Phone: Comment on above: Expected: 05/26/2022, Expires: 3 Start: 05-26-2022 End: 07-26-2022 Giardia lamblia+Cryptosporidium sp Ag [Presence] in Stool by Immunoassay CRYPTOSPORIDIUM AND GIARDIA ANTIGENS BY EIA Microbiology Routine Diarrhea, unspecified type Expected: 05/26/2022, Expires: 07/26/2022 [facility] Work Phone: Comment on above: Expected: 05/26/2022, Expires: 3 Start: 05-26-2022 End: 07-26-2022 Lipase [Enzymatic activity/volume] in Serum or Plasma LIPASE BLD Lab Routine Diarrhea, unspecified type Abdominal pain, unspecified abdominal location Expected: 05/26/2022, Expires: 07/26/2022 [facility] Work Phone: Comment on above: Expected: 05/26/2022, Expires: 3 Start: 05-26-2022 End: 07-26-2022 Lipid 1996 panel - Serum or Plasma LIPID PANEL BASIC Lab Routine Hyperlipidemia, mixed Expected: 05/26/2022, Expires: 07/26/2022 [facility] Work Phone: Comment on above: Expected: 05/26/2022, Expires: 3 Start: 05-26-2022 End: 07-26-2022 Thyrotropin [Units/volume] in Serum or Plasma TSH BLD Lab Routine Hypothyroidism, acquired Expected: 05/26/2022, Expires: 07/26/2022 [facility] Work Phone: Comment on above: Expected: 05/26/2022, Expires: 3 Start: 05-26-2022 End: 07-26-2022 Urinalysis complete panel - Urine URINALYSIS WITH MICROSCOPIC, REFLEX CULTURE Lab Routine Screening for diabetes mellitus Expected: 05/26/2022, Expires: 07/26/2022 [facility] Work Phone: Comment on above: Expected: 05/26/2022, Expires: 3 Start: 04-21-2022 Thyroid stimulating hormone measurement [facility] Start: 02-09-2022 Influenza vaccination [facility] Start: 10-19-2021 COVID-19 VACCINE (4 - Booster for Moderna series) COVID-19 VACCINE (4 - Booster for Moderna series) [facility] Start: 09-19-2021 End: 09-19-2021 Patient encounter procedure Appointment [facility] Work Phone: Start: 08-16-2021 COVID-19 VACCINE (4 - Booster for Moderna series) COVID-19 VACCINE (4 - Booster for Moderna series) [facility] Start: 08-16-2021 COVID-19 VACCINE (4 - Moderna series) COVID-19 VACCINE (4 - Moderna series) [facility] Start: 05-01-2021 COVID-19 Vaccine (3 - Booster for Moderna series) COVID-19 Vaccine (3 - Booster for Moderna series) [facility] Start: 03-31-2021 COVID-19 Vaccine (3 - Booster for Moderna series) COVID-19 Vaccine (3 - Booster for Moderna series) [facility] Start: 02-09-2021 Influenza vaccination [facility] Start: 08-12-2020 Screening for osteoporosis [facility] Start: 02-10-2020 Influenza vaccination Flu vaccine (#1) [facility] Work Phone: Start: 12-01-2018 Annual Wellness Visit (AWV) Annual Wellness Visit (AWV) [facility] Start: 2015 RSV Immunization for Adults (1 - 1-dose 75+ series) RSV Immunization for Adults (1 - 1-dose 75+ series) [facility] Start: 2015 RSV Vaccine (1 - 1-dose 75+ series) RSV Vaccine (1 - 1-dose 75+ series) [facility] Start: 2000 RSV Vaccine (1 - 1-dose 60+ series) RSV Vaccine (1 - 1-dose 60+ series) [facility] Start: 1995 Screening for osteoporosis DEXA (modify frequency per FRAX score) [facility] Start: 1990 Screening for malignant neoplasm of lung Low dose CT lung screening [facility] Start: 1990 Shingles Vaccine (1 of 2) Shingles Vaccine (1 of 2) [facility] Start: 1990 SHINGRIX VACCINE (1 of 2) SHINGRIX VACCINE (1 of 2) [facility] Start: 1990 Zoster Vaccines (1 of 2) Zoster Vaccines (1 of 2) [facility] Start: 1959 DTaP/Tdap/Td vaccine (1 - Tdap) DTaP/Tdap/Td vaccine (1 - Tdap) [facility] Start: 1956 COVID-19 Vaccine (1 of 2) COVID-19 Vaccine (1 of 2) [facility] Work Phone: Start: 1952 Depression Monitoring Depression Monitoring [facility] Start: 1940 Annual Wellness Visit (AWV) Annual Wellness Visit (AWV) [facility] Start: 1940 Lipid panel Lipid Panel [facility] Bacteria identified in Urine by Culture BACTERIAL CULTURE, URINE Microbiology Routine Abnormal urinalysis Recurrent UTI (urinary tract infection) 09/15/2024 3:08 PM EDT [facility] Basic metabolic 2000 panel - Serum or Plasma Basic Metabolic Panel Lab Routine Daily until discontinued starting 04/24/2021, 1 completed [facility] Work Phone: Comment on above: Daily until discontinued starting 2020, 1 completed End: 11-07-2024 Legionella and Streptococcus Urine Antigen [facility] Work Phone: Comment on above: Once (Lab) for 1 Occurrences starting until 11/07/2024 Oxygen therapy [[facility] Data Set] Initiate Oxygen Therapy Protocol Respiratory Care Routine Daily until discontinued starting 05/08/2021 [facility] Work Phone: Comment on above: Daily until discontinued starting 2020 End: 07-18-2024 Pathology Review [facility] Work Phone: Comment on above: Once (Lab) for 1 Occurrences starting until 07/18/2024, 1 completed Patient Education \cps-[id number]\CPS_ PtEducatio [id number].pdf [facility] Work Phone: Patient referral [facility] Work Phone: End: 11-06-2022 Radiologic exam chest 2 views XR CHEST 2V FRONTAL/LAT Radiology Routine Acute bronchitis, unspecified organism 1 Occurrences starting 10/07/2021 until 11/06/2022 [facility] Work Phone: Comment on above: 1 Occurrences starting 10/07/2021 until 11/06/2022 End: 05-08-2021 Troponin I.cardiac [Mass/volume] in Serum or Plasma Troponin Lab Timed Now Then Every 4hr for 2 Occurrences starting 05/08/2021 until 05/08/2021 [facility] Work Phone: Comment on above: Now Then Every 4hr for 2 Occurrences sta rting 05/08/2021 until 05/08/2021 UA DIP B/O UA DIP B/O Lab R outine Abnormal urinalysis Ordered: 09/15/2024 [facility] Work Phone: Comment on above: Ordered: 09/15/2024 End: 11-07-2024 Urine Hold Cup Urine Hold Cup Lab Timed Once for 1 Occurrences starting 11/07/2024 until 11/07/2024 [facility] Comment on above: Once for 1 Occurrences starting 11/08/19 25 until 11/07/2024 End: 05-01-2025 XR Abdomen 3 Views XR ACUTE ABD SERIES 3V (2V ABD/1V CXR) Radiology Routine Generalized abdominal pain 1 Occurrences starting 04/01/2024 until 05/01/2025 [facility] Work Phone: Comment on above: 1 Occurrences starting 04/01/2024 until 05/01/2025 End: 04-01-2024 XR Abdomen 3 Views [facility] Comment on above: 1 Occurrences starting 04/01/2024 until 04/01/2024 End: 08-19-2020 XR HUMERUS RIGHT (MIN 2 VIEWS) XR HUMERUS RIGHT (MIN 2 VIEWS) Imaging STAT Once for 1 Occurrences starting 08/19/2020 until 08/19/2020 [facility] Work Phone: Comment on above: Once for 1 Occurrences starting 08/20/19 until 08/19/2020 [facility] Immunizations Immunization Date Immunization Notes Care Provider Fa [facility] 06-21-2021 Covid (Moderna) Dr. Dorian yoon MD Work Phone: [facility] 05-07-2021 tetanus toxoid, redu mariia diphtheria toxoid, and acellular pertussis vaccine, adsorbed Brant Mckee MD Work Phone: [facility] 10-29-2020 Covid (Moderna) Dr. Dorian yoon MD Work Phone: [facility] 09-30-2020 Covid (Moderna) Dr. Dorian yoon MD Work Phone: [facility] 06-24-2018 influenza, high dose seasonal, preservative-free Leonardo Lyles [employer] Work Phone: [facility] 06-24-2018 pneumococcal conjuga te vaccine, 13 valent Leonardo Lyles APRN.[employer] Work Phone: [facility] 06-24-2018 influenza virus vacc ine, unspecified formulation Leonardo Lyles [employer] Work Phone: [facility] 04-16-2017 influenza, high dose seasonal, preservative-free Leonardo Yoanmeagan LOPEZ.[employer] Work Phone: [facility] 04-27-2010 influenza, seasonal, injectable Leonardo Miltonmeagan [employer]OPEZ.[employer] Work Phone: [facility] 02-09-2006 pneumococcal polysaccharide vaccine, 23 valent Leonardo Miltonmeagan [employer]OPEZ[employer] Work Phone: [facility] Payers Date Payer Category Payer Self-pay 2024 Unknown [id number] 2023 Medicare (Managed Care) [facility] MEDIC[facility] O [id number] 2023 Medicare HMO [employer] A[employer] MEDICAR E ADVANTAGE [id number] 2021 Medicare [id number] 2021 Medicare [id number] 2017 Medicare [id number] 1959 Medicare [id number] 1940 Unknown [id number] [id number] 1940 Unknown [id number]. [id number] 1940 Unknown [id number]. [id number] 1940 Unknown [id number]. [id number] 1940 Unknown [id number]. [id number] 1940 Unknown [id number]. [id number] 1940 Unknown [id number] [id number] Unknown [id number] [id number] Unknown [id number] [id number] Unknown [id number] [id number] Unknown [id number] [id number] Social History Date Type Detail Facility Start: 08-05-2018 End: 02-01-2024 Tobacco smoking status [facility] Former smoker [facility] Start: 08-18-1958 End: 08-18-2018 History of tobacco use Current smoker [facility] Work Phone: Start: 08-05-2018 End: 10-20-2024 Cigarettes smoked current (pack per day) - Reported [facility] Start: 08-05-2018 End: 02-01-2024 Tobacco use and exposure Never used [facility] Work Phone: Start: 08-05-2018 End: 10-27-2024 Alcohol intake Current non-drinker of alcohol (finding) [facility] Phone: Start: 08-04-2018 Alcohol Comment ast drinking 07/2017, no hx EtOH, never attended [employer] Work Phone: Start: 1940 Sex Assigned At Not on file S [employer] Work Phone: Start: 09-27-2021 End: 05-10-2022 Exposure to SARS-CoV-2 (event) Not sure [facility] Work Phone: Start: 08-04-2018 Alcohol Comment ast drinking 07/2017, no hx EtOH, never attended [employer] Work Phone: Start: 09-19-2021 End: 09-19-2021 Assertion Unknown if ever smoked [facility] Work Phone: Start: 08-18-1958 End: 08-18-2018 History of tobacco use Cigarette Smoker [facility] Start: 11-18-2018 History SDOH Alcohol Comment Rarely [facility] Start: 11-18-2018 End: 05-16-2022 Tobacco Comment One pack of cigarettes every 3 weeks [facility] Start: 12-19-2021 End: 12-29-2021 Exposure to SARS-CoV-2 (event) Unable to assess [facility] Start: 12-20-2022 End: 10-20-2024 Tobacco use panel [facility] Adult Depression Screening Assessment 1 [facility] Start: 01-09-2022 Sex Female (finding) [facility] Start: 08-04-1970 Tobacco smoking status NHIS Occasional tobacco smoker [employer] Start: 07-18-2024 End: 11-13-2024 Alcoholic beverage intake Current drinker of alcohol (finding) [employer] Has the [employer], gas, oil, or water company threatened to shut off services in your home in past 12Mo No [facility] How often to you hav e a drink containing alcohol? Never [facility] (I/We) worried whether (my/our) food would run out before (I/we) got money to buy more. Never true [facility] Start: 07-18-2024 Alcohol Comment rarely [facility] Start: 11-30-2024 End: 11-30-2024 Tobacco smoking status NHIS Never smoked tobacco (finding) [facility] Start: 1940 Sex Assigned At Female W [facility] NEGATED: Highlighted rowStart: 09-19-2021 End: 09-19-2021 Tobacco use and exposure Tobacco use and exposure [facility] Work Phone: Functional Status Date Assessment Result Facility 12-01-2024 Functional status Bedside Commode [facility] Work Phone: 11-30-2024 Functional status None [facility] Work Phone: 07-17-2022 Are you deaf, or do you have serious difficulty hearing No 07/17/2022 2:52 PM Liam Hollingsworth RN No [facility] 07-17-2022 Are you blind, or do you have serious difficulty seeing, even when wearing glasses No 07/17/2022 2:52 PM Liam Hollingsworth RN No [facility] 07-17-2022 Do you have serious difficulty walking or climbing stairs No 07/17/2022 2:52 PM Liam Hollingsworth RN No [facility] 07-17-2022 Do you have difficul ty dressing or bathing No 07/17/2022 2:52 PM Liam Hollingsworth RN No [facility] 07-17-2022 Because of a physica l, mental, or emotional condition, do you have difficulty doing errands alone such as visiting a physician's office or shopping Yes 07/17/2022 2:52 PM Liam Hollingsworth RN Yes [facility] Mental Status Date Assessment Result Facility 12-01-2024 Cognitive function Voice/Name [facility] Work Phone: 07-17-2022 Because of a physica l, mental, or emotional condition, do you have serious difficulty concentrating, remembering, or making decisions No 07/17/2022 2:52 PM Liam Hollingsworth RN No [facility] Clinical Notes 01-25-2016 to 12-03-2024 Telephone Encounter - Leonardo Lyles APRN.CNP - 12/03/2024 3:31 PM EDTTelephone Encounter - Leonardo Lyles APRN.CNP - 12/03/2024 3:31 PM EDT Note Date & Type Note Facility 12-03-2024 Telephone encounter Note Noted. Leonardo Lyles APRN.CNP [facility] 12-03-2024 Miscellaneous Notes Noted. Leonardo Lyles APRN.CNP Cheri from [facility] called into the office and states that pt missed PT today due to being admitted into the hospital. Cheri states pt will most likely be discharged from Home Care and will have to resume once discharged from the hospital. Cheri can be reached at [phone] Queenie Kirkpatrick December 03, 2024 1:46 PM documented in this encounter [facility] 12-03-2024 Telephone encounter Note Cheir from [facility] [place] called into the office and states that pt missed PT today due to being admitted into the hospital. Cheri states pt will most likely be discharged from Home Care and will have to resume once discharged from the hospital. Cheri can be reached at [phone] Queenie Kirkpatrick December 03, 2024 1:46 PM [facility] 12-01-2024 Note [facility] Medical Records Department [address] [place] [address] History Physical Exam 12/01/242031 MR#: [id number] Acct: [id number] Name: KATHRYN TAMEZ I Rep #: [id number] : 1940 84 From: Ramana Tsai MD PCP: OUT OF TOWN DOCTOR Status:ADM IN Location: [place] [address] HPI - General General Date of Admission: 12/01/24 Date of Service: 12/02/24 Chief Complaint: Here for rehabilitation. HPI Narrative KATHRYN TAMEZ, is a 84 Female who presents with followin11/30/2024 [facility] ED atraumatic neck pain, back pain. OTC medications, heat not helpful, tingling in all fingers which is new. History lumbar spine surgery with Dr. Morrison at [facility] recently. Reflexes hyperreflexic, Morphine given for pain. Unable to get up, but able to walk slowly with walker. Unable to be cared for at home, daughter not able to lift her. 11/30/2024 Admit [facility]. Recent back surgery. PT/OT/CM for SNF. Tylenol, Toradol, Lidoderm for pain control. 12/01/2024 Neck pain better. PT/OT SNF, FTT 2/2 inability to do PT after spine surgery due to illness. Continue pain medications. 12/01/2024 Admit to TCU with debility, here for rehabilitation, strengthening, prior to discharge home with family. [facility] Medical History (Updated 12/01/24 @ 20:[address] Ramana Tsai MD) Colitis due to Clostridioides difficile Pain in right hip Infection due to Norovirus species Vitamin D deficiency Severe malnutrition Gastroenteritis and colitis, viral Stress incontinence in female Bursitis of hip, right Postsurgical hypothyroidism Adjustment disorder with mixed anxiety and depressed mood Anxiety associated with depression Spinal stenosis of lumbar region Thyrotoxicosis Osteopenia of multiple sites Atrophy of vagina Major depressive disorder Low back pain Urgency of urination Myalgia Osteoporosis of lumbar spine Migraines Chronic GERD without esophagitis GERD (gastroesophageal reflux disease) Hysterectomy planned Colonoscopy planned Home Medications ???Medication ???Instructions ???Recorded ???Last Taken ???Type gabapentin 300 mg capsule 300 mg PO BID Nerve Pain 11/30/24 11/29/24 History hydroxyzine HCl 10 mg tablet 10 mg PO QHS Anxiety 11/30/24/08/05 21:40 History levothyroxine 88 mcg tablet 88 mcg PO DAILY Thyroid 11/30/24 0 11/30/24 History sertraline 100 mg tablet 200 mg PO DAILY Mood 11/30/24/09/02 09:40 History sumatriptan succinate 50 mg tablet 50 mg PO .COMPLEX Headache 11/30 Unknown History acetaminophen 500 mg tablet 1,000 mg (2 x 500 mg) PO Q8 Pain 0 12/01/24 12/01/24 15:05 Rx #0 tabs lidocaine 5 % topical patch 1 patch topical DAILY Pain #0 ea 0 12/01/24 12/01/24 09:40 Rx oxycodone 10 mg tablet 10 mg PO Q4H PRN pain 3 days #12 0 12/01/24 11/29/24 Rx tabs Allergy/AdvReac Type Severity Reaction Status Date / Time No Known Allergies Allergy Verified 11/30/24 10:25 Surgical History (Updated 12/01/24 @ 20:[address] Ramana Tsai MD) History of arthroplasty of right ankle History of thyroidectomy, total History of nephrectomy, right History of total hip replacement Hx of esophagogastroduodenoscopy Hx of cholecystectomy History of back surgery Social History (Updated 12/01/24 @ 20:[address] Ramana Tsai MD) household members: family Smoking Status: Never smoker alcohol intake: never substance use type: does not use ROS Constitutional Constitutional: Reports weakness; Denies chills, fever(s) or weight gain ENT HEENT: Denies headache(s), nasal congestion or nasal discharge Cardiovascular Cardiovascular: Denies chest pain or palpitations Respiratory/Chest Respiratory/Chest: Denies cough, excessive phlegm production or shortness of breath with exertion Gastrointestinal Gastrointestinal: Denies abdominal pain, nausea or vomiting Genitourinary Genitourinary: Denies dysuria Musculoskeletal Musculoskeletal: Denies joint pain or joint swelling Integumentary Integumentary: Denies rash or wounds Neurologic Neurologic: Denies focal weakness, numbness or tingling Psychiatric Psychiatric: Denies anxiety, auditory hallucinations, depression, homicidal ideation or suicidal ideation Vital Signs Vital Signs Vital Signs: 12/01/24 18:11 12/01/24 20:20 Temperature 97.3 F L Temperature Source Temporal Pulse Rate 67 64 Respiratory Rate 16 16 Blood Pressure 117/60 116/50 L Blood Pressure Mean 79 72 Blood Pressure Source Monitor Monitor Blood Pressure Position Semi-Fowlers Semi-Fowlers Blood Pressure Location Right Arm Left Arm Pulse Ox 93 96 Oxygen Delivery Method Room Air Room Air Weight Weight: 52.072 kg Body Mass Index (BMI) 22.4 Physical Exam Const alert General Appearance: cooperative HEENT normocephalic Eyes (more content not included)... [facility] 12-01-2024 Discharge summary [facility] 12-01-2024 Discharge summary [facility] 12-01-2024 Note [facility] Medical Records Department [address] [place] [address] Discharge Summary 12/01/24 1602 MR#: [id number] Acct: [id number] Name: KATHRYN TAMEZ I Rep #: [id number] : 1940 84 From: Iván Larkin DO PCP: OUT OF TOWN DOCTOR Status:ADM STEVAN [id number] Providers Date of Admission: 11/30/24 Primary Care Physician: Out of [facility] Doctor Reason For Visit: FAILURE TO THRIVE Diagnosis Discharge Diagnosis (1) Adult failure to thrive: Status: Acute Code(s): R62.7 - Adult failure to thrive Plan: Secondary recent back surgery and not being able to engage in therapy due to recent illness and then just not getting reestablished. PT OT evaluate and treat Case management to assist with disposition Anticipate the patient will require longterm facility when she is ready for discharge. (2) Acute cervical myofascial strain: Status: Acute Code(s): S16.1XXA - Strain of muscle, fascia and tendon at neck level, initial encounter Plan: Atraumatic. I suspect it is probably due to some position she may have slept in. There is no trauma so I do not feel the issue with her dens is concerning at all as she has full range of motion. Neck pain seems to be more muscular Will schedule acetaminophen, add as needed ketorolac and a Lidoderm patch. Improving. Plan Recent back surgery: Incision appears to be clean and intact. Follow-up with Dr. Morrison as outpatient. VTE prophylaxis with enoxaparin CODE STATUS: Addressed with the patient. Patient wishes to be full code Medications at Discharge Home Medications gabapentin 300 mg capsule 300 mg PO BID 11/30/24 hydroxyzine HCl 10 mg tablet 10 mg PO QHS 11/30/24 levothyroxine 88 mcg tablet 88 mcg PO DAILY 11/30/24 sertraline 100 mg tablet 200 mg PO DAILY 11/30/24 sumatriptan succinate 50 mg tablet 50 mg PO .COMPLEX 11/30/24 acetaminophen 500 mg tablet 1,000 mg (2 x 500 mg) PO Q8 #0 tabs 12/01/24 lidocaine 5 % topical patch 1 patch topical DAILY #0 ea 12/01/24 oxycodone 10 mg tablet 10 mg PO Q4H PRN pain 3 days #12 tabs 12/01/24 Hospital Course Operations None Procedures None Summary of Care Provided Minutes Spent on Discharge: 32 Hospital Course: This is an 84-year-old female presents with weakness. 3 weeks prior had had back surgery and was doing well but then became sick and then was not seen during therapy and then had not gotten reestablished with therapy just continue to get weaker and weaker. Complicating this she developed severe neck pain that was atraumatic. Neck pain was musculoskeletal and. Patient was brought in pain control was initiated and patient felt better. Patient was evaluated and was deemed appropriate for the transitional care unit and patient will be discharged there today. Weight / BMI Weight Weight: 53.5 kg Body Mass Index (BMI) 23.0 ABG / Lab / Microbiology Data 12/01/24 14:24 12/01/24 14:24 Laboratory: Laboratory Results - last 24 hr 12/01/24 14:24: WBC 10.8, RBC 3.36 L, Hgb 9.2 L, Hct 29.5 L, MCV 87.8, MCH 27.4, MCHC 31.2 L, RDW Std Deviation 47.7 H, RDW Coeff of David 14.7 H, Plt Count 321, MPV 10.7, Immature Gran % (Auto) 1.300 H, Neut % (Auto) 60.5, Lymph % (Auto) 17.7 L, [place] % (Auto) 20.0 H, Eos % (Auto) 0.2, Baso % (Auto) 0.3, Absolute Neuts (auto) 6.6, Absolute Lymphs (auto) 1.92, Nucleated RBC % 0, Sodium 142, Potassium 3.9, Chloride 103, Carbon Dioxide 27.7, Anion Gap 12, BUN 21 H, Creatinine 1.04, Estim Creat Clear Calc 28.92 L, Est GFR (MDRD) Non-Af 53 L, BUN/Creatinine Ratio 20.4 H, Glucose 108 H, Calcium 8.6 D/C Instructions Discharge Diet: No restrictions DC O2, CPAP, BIPAP Needs Home O2 Discharge instructions: No Meaningful Use Info Meaningful Use Meaningful Use Diagnoses (Choose all that apply): None applicable Ischemic Stroke Statin Dosing Therapy Reference: STATIN DOSE THERAPY REFERENCE: * Patients > 75 years receive moderate or high dose statin therapy. * Patients 75 years or YOUNGER should receive HIGH intensity statin dose unless contraindicated. You will be required to document reason for non-treatment if statin daily dose does not meet guidelines. HIGH DOSE STATIN THERAPY DAILY Atorvastatin > than or = to 40 mg Rosuvastatin > than or = to 20 mg Amlodipine + Atorvastatin > than or = to 2.5/40 mg Ezetimibe + Simvastatin 10/80 mg Simvastatin 80mg Discharge Plan Admission Admit Date/Time: 11/30/24 13:18 Primary Reason for Your Visit: debility. neck strain. Attending Provider: Iván Larkin Primary Care Provider: [facility] Doctor,Out of Discharge Orders/Prescriptions Prescriptions: New acetaminophen 500 mg Tablet 1,000 mg PO Q8 Qty: 0 0RF lidocaine 5 % Adhesive Patch,Medicated 1 patch topical DAILY Qty: 0 0RF Protocol: *Topical Application Instruc (more content not included)... [facility] 12-01-2024 Progress note Note Date/Time December 01, 2024 11:30am [facility] Medical Records Department [address] [place] [id number] Progress Note - Hospitalist 12/01/24 0740 MR#: [id number] Acct: [id number] Name: KATHRYN TAMEZ I Rep #:[id number] : 1940 84 From: Iván Larkin DO PCP: OUT OF TOWN DOCTOR Status:ADM STEVAN Location: [place] [address] Reason for Visit Reason for Visit: Diagnoses Adult failure to thrive (11/30/24) Strain of muscle, fascia and tendon at neck level, initial encounter (11/30/24) Subjective Subjective Neck pain feeling better Objective Data Objective Data Vital Signs: Vital Signs Temp Pulse Resp BP Pulse Ox O2 Del Method 36.7 C 69 16 123/67 H 95 Room Air 12/01/24 05:15 12/01/24 05:15 12/01/24 05:15 12/01/24 05:15 12/01/24 05:15 12/01/24 05:15 Oxygen Delivery Method Room Air Weight: 53.5 kg Body Mass Index (BMI) 23.0 Intake & Output: Intake and Output for Last 24 Hours 11/29/24 11/30/24 12/01/24 23:59 23:59 23:59 Intake Total 400 / 400 Balance 400 / 400 Lab / Micro Data 11/30/24 10:49 11/30/24 10:49 Labs: Laboratory Results - last 24 hr 11/30/24 10:49: WBC 12.4 H, RBC 3.31 L, Hgb 9.0 L, Hct 28.3 L, MCV 85.5, MCH 27.2, MCHC 31.8 L, RDW Std Deviation 45.6 H, RDW Coeff of David 14.6, Plt Count 334, MPV 10.4, Sodium 141, Potassium 4.1, Chloride 102, Carbon Dioxide 27.9, Anion Gap 11, BUN 10, Creatinine 0.74, Estim Creat Clear Calc 37.60 L, Est GFR (MDRD) Non-Af 80, BUN/Creatinine Ratio 14.0, Glucose 112 H, Calcium 8.6 Radiography Diagnostic Testing: Radiology Impression Cervical Spine X-Ray 11/30/24 11:00 IMPRESSION: Moderate cervical degenerative changes. Slight leftward offset of the dens of the axis, likely due to patient positioning. If continued clinical concern, CT C-spine could be obtained for further evaluation. Reading Location: [id number] Physical Exam Const alert and no apparent distress HEENT head/scalp atraumatic and moist oral mucous membranes Neck Neck Narrative: bilateral paraspinal muscle tenderness, improved. Resp normal respiratory effort, no retractions, no use of accessory muscles and clearto auscultation bilaterally Cardio regular rate, regular rhythm, S1 normal heart sound and S2 normal heart sound GI normal to inspection, nondistended, normoactive bowel sounds, soft to palpation,non-tender and non-distended Extremity normal to inspection, full ROM and no clubbing, cyanosis or edema Neuro oriented x3 and CN's II-XII intact bilaterally Sensorium / Orientation: awake and alert Assessment & Plan Assessment/Plan (1) Adult failure to thrive: PLAN: Secondary recent back surgery and not being able to engage in therapy due to recent illness and then just not getting reestablished. PT OT evaluate and treat Case management to assist with disposition Anticipate the patient will require longterm facility when she is ready for discharge. (2) Acute cervical myofascial strain: PLAN: Atraumatic. I suspect it is probably due to some position she may have slept in. There is no trauma so I do not feel the issue with her dens is concerning at allas she has full range of motion. Neck pain seems to be more muscular Will schedule acetaminophen, add as needed ketorolac and a Lidoderm patch. PLAN: Plan Recent back surgery: Incision appears to be clean and intact. Follow-up with Dr. Morrison as outpatient. VTE prophylaxis with enoxaparin CODE STATUS: Addressed with the patient. Patient wishes to be full code Charges/Coding Visit Charges Inpatient E&M: 44480 Subs Hosp L1 12/01/24 1130 <Electronically signed by Iván Larkin DO> Cosigner Signature (if applicable): CC: ~ Signed [facility] Work Phone: 1(428) 107-177106-23-2025 Telephone encounter Note* Telephone Encounter - Leonardo Lyles APRN.CNP - 12/01/2024 1:26 PM EDT Noted. Leonardo Lyles APRN.CNP [facility]06-23-2025 Miscellaneous Notes* Telephone Encounter - Leonardo Lyles APRN.CNP - 12/01/2024 1:26 PM EDT Noted. Leonardo Lyles APRN.CNP * Telephone Encounter - Queenie Kirkpatrick - 12/01/2024 8:43 AM EDT Varun from [facility] called to update on pt. Varun states that he met with pt and daughter and did an evaluation on pt. Varun states that he discussed a passport program with pt and daughter which could provide long termassistance at home for pt. Pt and daughter were agreeable to the program. Varun states he made a referral for pt for the program and should her something back in a week or so. Any questions, varun can be reached at [phone] Queenie Kirkpatrick December 01, 2024 8:49 AM documented in this encounterL[facility]06-[facility] Progress note [facility] Medical Records Department [address] [place] [address] Progress Note - Hospitalist 12/01/24 0740 MR#: [id number] Acct: [id number] Name: KATHRYN TAMEZ I Rep #:[id number] : 1940 84 From: Iván Larkin DO PCP: OUT OF TOWN DOCTOR Status:ADM STEVAN Location: [place] [id number] Reason for Visit Reason for Visit: Diagnoses Adult failure to thrive (11/30/24) Strain of muscle, fascia and tendon at neck level, initial encounter (11/30/24) Subjective Subjective Neck pain feeling better Objective Data Objective Data Vital Signs: Vital Signs Temp Pulse Resp BP Pulse Ox O2 Del Method 36.7 C 69 16 123/67 H 95 Room Air 12/01/24 05:15 12/01/24 05:15 12/01/24 05:15 12/01/24 05:15 12/01/24 05:15 12/01/24 05:15 Oxygen Delivery Method Room Air Weight: 53.5 kg Body Mass Index (BMI) 23.0 Intake & Output: Intake and Output for Last 24 Hours 11/29/24 11/30/24 12/01/24 23:59 23:59 23:59 Intake Total 400 / 400 Balance 400 / 400 Lab / Micro Data 11/30/24 10:49 11/30/24 10:49 Labs: Laboratory Results - last 24 hr 11/30/24 10:49: WBC 12.4 H, RBC 3.31 L, Hgb 9.0 L, Hct 28.3 L, MCV 85.5, MCH 27.2, MCHC 31.8 L, RDWStd Deviation 45.6 H, RDW Coeff of David 14.6, Plt Count 334, MPV 10.4, Sodium 141, Potassium 4.1, Chloride 102, Carbon Dioxide 27.9, Anion Gap 11, BUN 10, Creatinine 0.74, Estim Creat Clear Calc 37.60L, Est GFR (MDRD) Non-Af 80, BUN/Creatinine Ratio 14.0, Glucose 112 H, Calcium 8.6 Radiography Diagnostic Testing: Radiology Impression Cervical Spine X-Ray 11/30/24 11:00 IMPRESSION: Moderate cervical degenerative changes. Slight leftward offset of the dens of the axis, likely due to patient positioning. If continued clinical concern, CT C-spine could be obtained for further evaluation. Reading Location: [facility] Physical Exam Const alert and no apparent distress HEENT head/scalp atraumatic and moist oral mucous membranes Neck Neck Narrative: bilateral paraspinal muscle tenderness, improved. Resp normal respiratory effort, no retractions, no use of accessory muscles and clearto auscultation bilaterally Cardio regular rate, regular rhythm, S1 normal heart sound and S2 normal heart sound GI normal to inspection, nondistended, normoactive bowel sounds, soft to palpation,non-tender and non-distended Extremity normal to inspection, full ROM and no clubbing, cyanosis or edema Neuro oriented x3 and CN's II-XII intact bilaterally Sensorium / Orientation: awake and alert Assessment & Plan Assessment/Plan (1) Adult failure to thrive: PLAN: Secondary recent back surgery and not being able to engage in therapy due to recent illness and then just not getting reestablished. PT OT evaluate and treat Case management to assist with disposition Anticipate the patient will require longterm facility when she is ready for discharge. (2) Acute cervical myofascial strain: PLAN: Atraumatic. I suspect it is probably due to some position she may have slept in. There is no trauma so I do not feel the issue with her dens is concerning at allas she has full range of motion. Neck pain seems to be more muscular Will schedule acetaminophen, add as needed ketorolac and a Lidoderm patch. PLAN: Plan Recent back surgery: Incision appears to be clean and intact. Follow-up with Dr. Morrison as outpatient. VTE prophylaxis with enoxaparin CODE STATUS: Addressed with the patient. Patient wishes to be full code Charges/Coding Visit Charges Inpatient E&M: 29283 Subs Hosp L1 12/01/24 1130 Cosigner Signature (if applicable): CC: ~ Signed [facility]06-23-2025 Telephone encounter Note* Telephone Encounter - Queenie Kirkpatrick - 12/01/2024 8:43 AM EDT Varun from [facility] called to update on pt. Varun states that he met with pt and daughter and did an evaluation on pt. Varun states that he discussed a passport program with pt and daughter which could provide long termassistance at home for pt. Pt and daughter were agreeable to the program. Varun states he made a referral for pt for the program and should her something back in a week or so. Any questions, varun can be reached at [phone] Queenie Kirkpatrick December 01, 2024 8:49 AM [facility]06-22-2025 History and physical note Author Iván Larkin [facility] Note Date/Time November 30, 2024 3:46 pm [facility] Medical Records Department [address] [place] [address] H&P Exam - Hospitalist 11/30/24 1541 MR#: [id number] Acct: [id number] Name: KATHRYN TAMEZ I Rep #:[id number] : 1940 84 From: Iván Larkin DO PCP: OUT OF TOWN DOCTOR Status:ADM STEVAN Location: [facility] [id number] HPI - General General Date of Admission: 11/30/24 Date of Service: 11/30/24 Chief Complaint: Weakness HPI Narrative KATHRYN TAMEZ, is a 84 F who presents with weakness. Approximate 3 weeks ago, patient underwent back surgery by Dr. Morrison at [facility]. Patient said that she was doing well and then became sick. And when she was sick she was not seen by therapy during then nor thereafter. And she is just progressively gotten weaker during this time. Addition over the past week she has had significant neck pain. She denies any falls or injury. But because theneck pain and weakness, she was seen in the emergency room here. She did have aCAT scan that showed questionable issue with the dens but was given patient had not fallen. But given that she was unable to ambulate safely, the hospital service was contacted for admission. [facility] Medical History Colitis due to Clostridioides difficile Pain in right hip Infection due to Norovirus species Vitamin D deficiency Severe malnutrition Gastroenteritis and colitis, viral Stress incontinence in female Bursitis of hip, right Postsurgical hypothyroidism Adjustment disorder with mixed anxiety and depressed mood Anxiety associated with depression Spinal stenosis of lumbar region Thyrotoxicosis Osteopenia of multiple sites Atrophy of vagina Major depressive disorder Low back pain Urgency of urination Myalgia Osteoporosis of lumbar spine Migraines Chronic GERD without esophagitis GERD (gastroesophageal reflux disease) Hysterectomy planned Colonoscopy planned Home Medications ?Medication ?Instructions ?Recorded ?Last Taken ?Type gabapentin 300 mg capsule 300 mg PO BID 11/30/2411/29 History hydroxyzine HCl 10 mg tablet 10 mg PO QHS 11/30/24 Unk nown History levothyroxine 88 mcg tablet 88 mcg PO DAILY 11/30/24 0 11/30/24 History oxycodone 10 mg tablet 10 mg PO Q4H PRN pain 11/29/24 History sertraline 100 mg tablet 200 mg PO DAILY 11/30/24 History sumatriptan succinate 50 mg tablet 50 mg PO .COMPLEX 0 11/30/24 Unknown History Allergy/AdvReac Type Severity Reaction Status Date / Time No Known Allergies Allergy Verified 11/30/24 10:25 Surgical History History of arthroplasty of right ankle History of thyroidectomy, total History of nephrectomy, right History of total hip replacement Hx of esophagogastroduodenoscopy Hx of cholecystectomy History of back surgery Social History household members: family Smoking Status: Never smoker ROS ROS Narrative All review of systems were negative except as mentioned above in the history of present illness and the other review of systems. Vital Signs Vital Signs Vital Signs: 11/30/24 10:24 11/30/24 13:18 11/30/24 14:38 Temperature 36.6 C 36.7 C 36.8 C Temperature Source Temporal Oral Pulse Rate 84 70 75 Respiratory Rate 14 14 16 Respiratory Effort Respiratory Depth Respiratory Pattern Blood Pressure 135/61 H 113/66 107/57 L Blood Pressure Mean 85 81 73 Blood Pressure Source Monitor Blood Pressure Position Semi-Fowlers Blood Pressure Location Left Arm Pulse Ox 94 93 94 Oxygen Delivery Method Room Air Room Air 11/30/24 14:46 Temperature Temperature Source Pulse Rate Respiratory Rate Respiratory Effort Normal Non-Labored Respiratory Depth Normal Respiratory Pattern Normal Blood Pressure Blood Pressure Mean Blood Pressure Source Blood Pressure Position Blood Pressure Location Pulse Ox Oxygen Delivery Method Room Air Weight Weight: 53.5 kg Body Mass Index (BMI) 23.0 Physical Exam Const alert and no apparent distress HEENT normocephalic and head/scalp atraumatic Eyes Eyes Narrative: No icterus Neck Neck Narrative: Bilateral posterior cervical muscle tenderness with that being more prominent onthe left than on the right. Resp normal respiratory effort, no retractions, no use of accessory muscles and clearto auscultation bilaterally Cardio regular rate, regular rhythm, S1 normal heart sound and S2 normal heart sound GI normal to inspection, nondistended, normoactive bowel sounds, soft to palpation,non-tender and non-distended Extremity normal to inspection and no clubbing, cyanosis or edema Neuro moves all extremities Sensorium / Orientation: awake and alert Psych affect normal Results Lab / Micro Data 11/30/24 10:49 11/30/24 10:49 Labs: Laboratory Results - last 24 hr 11/30/24 10:49: WBC 12.4 H, RBC 3.31 L, Hgb 9.0 L, Hct 28.3 L, MCV 85.5, MCH 27.2, MCHC 31.8 L, RDW Std Deviation 45.6 H, RDW Coeff of David 14.6, Plt Count 334, MPV 10.4, Sodium 141, Potassium 4.1, Chloride 102, Carbon Dioxide 27.9, Anion Gap 11, BUN 10, Creatinine 0.74, Estim Creat Clear Calc 37.60 L, Est GFR (MDRD) Non-Af 80, BUN/Creatinine Ratio 14.0, Glucose 112 H, Calcium 8.6 Imaging Radiology Impression Cervical Spine X-Ray 11/30/24 11:00 IMPRESSION: Moderate cervical degenerative changes. Slight leftward offset of the dens of the axis, likely due to patient positioning. If continued clinical concern, CT C-spine could be obtained for further evaluation. Reading Location: [facility] Assessment & Plan Assessment/Plan (1) Adult failure to thrive: PLAN: Secondary recent back surgery and not being able to engage in therapy due to recent illness and then just not getting reestablished. PT OT evaluate and treat Case management to assist with disposition Anticipate the patient will require longterm facility when she is ready for discharge. (2) Acute cervical myofascial strain: PLAN: Atraumatic. I suspect it is probably due to some position she may have slept in. There is no trauma so I do not feel the issue with her dens is concerning at allas she has full range of motion. Neck pain seems to be more muscular anyways. Will schedule acetaminophen, add as needed ketorolac and a Lidoderm patch. PLAN: Plan Recent back surgery: Incision appears to be clean and intact. Follow-up with Dr. Morrison as outpatient. VTE prophylaxis with enoxaparin CODE STATUS: Addressed with the patient. Patient wishes to be full code Charges/Coding Visit Charges Inpatient E&M: 48360 Init Hosp L2 11/30/24 1546 <Electronically signed by Iván Larkin DO> Cosigner Signature (if applicable): CC: Dr. Iván Larkin DO; Dr. Cali Morrison MD~ Signed [facility] Work Phone: 1([phone]) 104-441406-22-2025 History and physical note [facility] Medical Records Department [address] [place] [address] H&P Exam - Hospitalist 11/30/24 1541 MR#: [id number] Acct: [id number] Name: KATHYRN TAMEZ I Rep #:[id number] : 1940 84 From: Iván Larkin DO PCP: OUT OF TOWN DOCTOR Status:ADM STEVAN Location: [facility] [id number] HPI - General General Date of Admission: 11/30/24 Date of Service: 11/30/24 Chief Complaint: Weakness HPI Narrative KATHRYN TAMEZ, is a 84 F who presents with weakness. Approximate 3 weeks ago, patient underwent back surgery by Dr. Morrison at [facility]. Patient said that she was doing well and then became sick. And when she was sick she was not seen by therapy during then nor thereafter. And she is just progressively gotten weaker during this time. Addition over the past week she has had significant neck pain. She denies any falls or injury. But because theneck pain and weakness, she was seen in the emergency room here. She did have aCAT scan that showed questionable issue with the dens but was given patient had not fallen. But given that she was unable to ambulate safely, the hospital service w as contacted for admission. [facility] Medical History Colitis due to Clostridioides difficile Pain in right hip Infection due to Norovirus species Vitamin D deficiency Severe malnutrition Gastroenteritis and colitis, viral Stress incontinence in female Bursitis of hip, right Postsurgical hypothyroidism Adjustment disorder with mixed anxiety and depressed mood Anxiety associated with depression Spinal stenosis of lumbar region Thyrotoxicosis Osteopenia of multiple sites Atrophy of vagina Major depressive disorder Low back pain Urgency of urination Myalgia Osteoporosis of lumbar spine Migraines Chronic GERD without esophagitis GERD (gastroesophageal reflux disease) Hysterectomy planned Colonoscopy planned Home Medications ?Medication ?Instructions ?Recorded ?Last Taken ?Type gabapentin 300 mg capsule 300 mg PO BID 11/30/2411/29 History hydroxyzine HCl 10 mg tablet 10 mg PO QHS 11/30/24 Unk nown History levothyroxine 88 mcg tablet 88 mcg PO DAILY 11/30/24 0 11/30/24 History oxycodone 10 mg tablet 10 mg PO Q4H PRN pain 11/29/24 History sertraline 100 mg tablet 200 mg PO DAILY 11/30/24 History sumatriptan succinate 50 mg tablet 50 mg PO .COMPLEX 0 11/30/24 Unknown History Allergy/AdvReac Type Severity Reaction Status Date / Time No Known Allergies Allergy Verified 11/30/24 10:25 Surgical History History of arthroplasty of right ankle History of thyroidectomy, total History of nephrectomy, right History of total hip replacement Hx of esophagogastroduodenoscopy Hx of cholecystectomy History of back surgery Social History household members: family Smoking Status: Never smoker ROS ROS Narrative All review of systems were negative except as mentioned above in the history of present illness andthe other review of systems. Vital Signs Vital Signs Vital Signs: 11/30/24 10:24 11/30/24 13:18 11/30/24 14:38 Temperature 36.6 C 36.7 C 36.8 C Temperature Source Temporal Oral Pulse Rate 84 70 75 Respiratory Rate 14 14 16 Respiratory Effort Respiratory Depth Respiratory Pattern Blood Pressure 135/61 H 113/66 107/57 L Blood Pressure Mean 85 81 73 Blood Pressure Source Monitor Blood Pressure Position Semi-Fowlers Blood Pressure Location Left Arm Pulse Ox 94 93 94 Oxygen Delivery Method Room Air Room Air 11/30/24 14:46 Temperature Temperature Source Pulse Rate Respiratory Rate Respiratory Effort Normal Non-Labored Respiratory Depth Normal Respiratory Pattern Normal Blood Pressure Blood Pressure Mean Blood Pressure Source Blood Pressure Position Blood Pressure Location Pulse Ox Oxygen Delivery Method Room Air Weight Weight: 53.5 kg Body Mass Index (BMI) 23.0 Physical Exam Const alert and no apparent distress HEENT normocephalic and head/scalp atraumatic Eyes Eyes Narrative: No icterus Neck Neck Narrative: Bilateral posterior cervical muscle tenderness with that being more prominent onthe left than on the right. Resp normal respiratory effort, no retractions, no use of accessory muscles and clearto auscultation bilaterally Cardio regular rate, regular rhythm, S1 normal heart sound and S2 normal heart sound GI normal to inspection, nondistended, normoactive bowel sounds, soft to palpation,non-tender and non-distended Extremity normal to inspection and no clubbing, cyanosis or edema Neuro moves all extremities Sensorium / Orientation: awake and alert Psych affect normal Results Lab / Micro Data 11/30/24 10:49 11/30/24 10:49 Labs: Laboratory Results - last 24 hr 11/30/24 10:49: WBC 12.4 H, RBC 3.31 L, Hgb 9.0 L, Hct 28.3 L, MCV 85.5, MCH 27.2, MCHC 31.8 L, RDWStd Deviation 45.6 H, RDW Coeff of David 14.6, Plt Count 334, MPV 10.4, Sodium 141, Potassium 4.1, Chloride 102, Carbon Dioxide 27.9, Anion Gap 11, BUN 10, Creatinine 0.74, Estim Creat Clear Calc 37.60L, Est GFR (MDRD) Non-Af 80, BUN/Creatinine Ratio 14.0, Glucose 112 H, Calcium 8.6 Imaging Radiology Impression Cervical Spine X-Ray 11/30/24 11:00 IMPRESSION: Moderate cervical degenerative changes. Slight leftward offset of the dens of the axis, likely due to patient positioning. If continued clinical concern, CT C-spine could be obtained for further evaluation. Reading Location: [id number] Assessment & Plan Assessment/Plan (1) Adult failure to thrive: PLAN: Secondary recent back surgery and not being able to engage in therapy due to recent illness and then just not getting reestablished. PT OT evaluate and treat Case management to assist with disposition Anticipate the patient will require longterm facility when she is ready for discharge. (2) Acute cervical myofascial strain: PLAN: Atraumatic. I suspect it is probably due to some position she may have slept in. There is no trauma so I do not feel the issue with her dens is concerning at allas she has full range of motion. Neck pain seems to be more muscular anyways. Will schedule acetaminophen, add as needed ketorolac and a Lidoderm patch. PLAN: Plan Recent back surgery: Incision appears to be clean and intact. Follow-up with Dr. Morrison as outpatient. VTE prophylaxis with enoxaparin CODE STATUS: Addressed with the patient. Patient wishes to be full code Charges/Coding Visit Charges Inpatient E&M: 76390 Init Hosp L2 11/30/24 1547 Cosigner Signature (if applicable): CC: Dr. Iván Larkin DO; Dr. Cali Morrison MD~ Signed [facility]06-22-2025 Discharge summary [facility] Note Date/Time November 30, 2024 1:20 pm [facility] Medical Records Department [address] [place] [address] Emergency Department Summary 11/30/24 MR#: [id number] Acct: [id number] Name: KATHRYN TAMEZ I Rep #:[id number] : 1940 84 From: Dorian Ballard MD PCP: OUT OF TOWN DOCTOR Status:REG ER Location: ED HPI History of Present Illness Chief Complaint: Back Detail of Chief Complaint: Atraumatic neck pain Informant: patient Onset/Context/Timing Onset: Days Context: Sudden Onset Timing: Continuous Quality: Sharp pain Location: Posterior neck Current Severity: Mild Maximum Severity: Severe Worsened by: Any type of movement Relieved by: Nothing Associated Symptoms Associated Symptoms: No radicular pain, no paresthesia, no weakness in her upperextremities Narrative Narrative: Patient is an 84-year-old woman. She presents from home by ambulance because ofsevere pain. Her daughter called the ambulance. She has taken qwmi-rsi-etbaieclnxtbdlhix and applied heat with no benefit. She denies direct or indirect trauma. She denies fall asleep on the sofa or chair. She denies radicular pain. She states she had some tingling in all her fingers yesterday. She did not have that before. She denies headache. She denies visual, ocular auditory symptoms. She denies cardiac or respiratory symptoms. She denies any new symptoms in her legs. She had fusion of the lumbar spine by Dr. El Jo at [facility]. She denies fever, chills night sweats. Denies weight gain or weight loss. She denies any recent dental procedures. Prior similar symptoms: No Recent Illness/Hospitalization: Yes PFSH PFSH Home Medications ?Medication ?Instructions ?Recorded ?Last Taken ?Type hydroxyzine HCl 10 mg tablet 10 mg PO QHS 11/30/24 Unk nown History sertraline 100 mg tablet 200 mg PO DAILY 11/30/24 Unk nown History sumatriptan succinate 50 mg tablet mg PO 11/30/24 Unkn own History Allergy/AdvReac Type Severity Reaction Status Date / Time No Known Allergies Allergy Verified 11/30/24 10:25 Social History (Updated 11/30/24 @ 10:[address] Dorian Ballard MD) household members: family Smoking Status: Never smoker ROS ROS ED Constitutional Constitutional ED: Denies chills, fever(s), subjective, sweats or weight loss Eyes Eyes: Denies blurry vision or change in vision ENT ENT ED: Denies ear pain, rhinorrhea or sore throat Cardiovascular Cardiovascular: Denies chest pain, palpitations or racing heartbeat Respiratory/Chest Respiratory/Chest: Denies cough, dyspnea or dyspnea on exertion Gastrointestinal Gastrointestinal: Denies abdominal pain, nausea or vomiting Genitourinary Genitourinary ED: Denies dysuria, hematuria or urinary frequency Musculoskeletal Musculoskeletal: Reports neck pain; Denies arthralgias, back pain or myalgias Integumentary Denies rash Neurologic Neurologic: Denies paresthesias or weakness Hematologic/Lymphatic Hematologic/Lymphatic: Reports systems reviewed and no addt'l complaints, exceptas documented EXAM Physical Exam Const Vital Signs: 11/30/24 10:24 11/30/24 13:18 Temperature 98 F 98.1 F Temperature Source Temporal Pulse Rate 84 70 Respiratory Rate 14 14 Blood Pressure 135/61 H 113/66 Blood Pressure Mean 85 81 Pulse Ox 94 93 Oxygen Delivery Method Room Air Positive well nourished and well developed Constitutional Narrative: Patient appears uncomfortable. She is a thin woman. General Appearance ED: well developed; Negative for cyanotic, diaphoretic, NAD or pallor HEENT Reports moist mucous membranes HEENT Narrative: Head is atraumatic and normocephalic. Ears are normal. TMs normal. Nares are patent. Posterior pharynx is normal. trauma and tenderness Eyes PERRL and EOMs intact bilaterally General Eye ED: Negative for pale conjunctiva or scleral icterus Neck no lymphadenopathy, No supple and no JVD Neck Narrative: Patient has limited range of motion i.e. flexion, extension rotation right or left. She has predominantly Ilir lateral posterior cervical spine tenderness. There is no posterior cervical lymphadenopathy. There are no dermatologic lesions noted. Resp normal respiratory effort and clear to auscultation bilaterally Cardio regular rate, regular rhythm, S1 normal heart sound, S2 normal heart sound and no murmurs GI normal to inspection, nondistended, normoactive bowel sounds, non-tender, non-distended and no masses; Negative for hepatosplenomegaly Back/Spine Cervical Spine: cervical spine tenderness Cervical Spine Tenderness Details: C2,C3, C4, C5, C6 and C7 Thoracic Spine / Upper Back: Negative for thoracic spinal tenderness Lumbar Spine / Lower Back: Negative for lumbar spinal tenderness Extremity Extremity Narrative: Patient has significant surgical scar right knee. There is no clubbing or cyanosis of the upper or lower extremities. Patient has palpable distal pulses upper and lower extremity. Neuro oriented x3, CN's II-XII intact bilaterally and no sensory deficits noted Neuro Narrative: DTR are 3-4+ bicep, brachialis and tricep and 1+ at the patella and ankle. There is no abnormal sensation see 5 through T1 dermatome right or left upper extremity. Sensorium / Orientation: alert Motor Exam: strength 5/5 throughout Skin no rashes or lesions noted, no wounds and skin turgor normal General Skin Exam: Negative for elasticity normal, jaundice or pallor MDM MDM MDM Narrative Medical decision making narrative: Patient with atraumatic neck pain without radicular pain or sensory deficit. Her reflexes are hyperreflexic. Will start with x-ray. She was medicated with morphine for her pain. There are no prior records available Lab Data Attestation: I reviewed the patient's lab results. Lab results narrative: White count is slightly elevated. Patient does have anemia with normal indices. BMP has a normal BUN and creatinine however estimated creatinine clearance calculated is 37.5 with an estimated GFR of 80. Glucose slightly evaded at 112. Labs: Laboratory Results - last 24 hr 11/30/24 10:49 WBC 12.4 H RBC 3.31 L Hgb 9.0 L Hct 28.3 L MCV 85.5 MCH 27.2 MCHC 31.8 L RDW Std Deviation 45.6 H RDW Coeff of David 14.6 Plt Count 334 MPV 10.4 Sodium 141 Potassium 4.1 Chloride 102 Carbon Dioxide 27.9 Anion Gap 11 BUN 10 Creatinine 0.74 Estim Creat Clear Calc 37.60 L Est GFR (MDRD) Non-Af 80 BUN/Creatinine Ratio 14.0 Glucose 112 H Calcium 8.6 Radiography Chest X-Ray - ED: Read by ED Physician (5 view x-ray of the neck reveals some minimal degenerative changes. No significant narrowing of the cervical foramensright or left.) Diagnostic Testing: Clinical Impression(s) from Imaging Studies Cervical Spine X-Ray 11/30/24 11:00 IMPRESSION: Moderate cervical degenerative changes. Slight leftward offset of the dens of the axis, likely due to patient positioning. If continued clinical concern, CT C-spine could be obtained for further evaluation. Reading Location: [id number] Management Discussion w/another healthcare provider: Hospitalist (Spoke to Dr. Larkin. Clarification guarding patient's paresthesia, observation with consult to OT PT and case management) Treatment and Re-Evaluation :: There is states they were able to get patient off. She did ambulate with walker. She ambulated slowly. Concern by her nurse, Renata, is that daughter is not able to lift her so that she is able to walk. Comments:: The social service liaison informed that her insurance requires a 3-day hospital stay. She just had qualified for 3-day hospital stay. She recommend observation status with OP and PT evaluation and case management to work with her insurance company for placement at nursing facility based on her age and risk for fall. Discharge Plan Dx/Rx/DC Orders Clinical Impression: Acute cervical myofascial strain, Difficulty in walking, Adult failure to thrive, Chronic anemia, Elevated blood-pressure reading without diagnosis of hypertension Disposition Disposition: Acute Care Hospital [facility] What to do if you have Problems For any increased pain, shortness of breath, bleeding, nausea or vomiting, chestpain, or any unexpected problems, contact your Primary Care Provider. Call [facility] ([phone]) or report to the closest Emergency Room. Call 911 if necessary. 11/30/24 1320 <Electronically signed by Dorian Ballard MD> Cosigner Signature (if applicable): CC: ~ Signed [facility] Work Phone: 1(400) 787-366406-22-2025 Evaluation note* Diagnosis Onset Date Resolution Status Admit Date Acute cervical myofascial strain acu te November 30, 2024 1:18pm Adult failure to thrive acute J une 2024 1:18pm Difficulty in walking acute Antonino e 2024 1:18pm Elevated blood-pressure read ing without diagnosis of hypertension acute November 30, 2024 1:18pm Chronic anemia chronic November 30, 2024 1:18pm [facility] Work Phone: 1(630) 817-482206-22-2025 Discharge summary [facility] Medical Records Department [address] [place] [address] Emergency Department Summary 11/30/24 MR#: [id number] Acct: [id number] Name: KATHRYN TAMEZ I Rep #:[id number] : 1940 84 From: Dorian Ballard MD PCP: OUT OF TOWN DOCTOR Status:REG ER Location: ED HPI History of Present Illness Chief Complaint: Back Detail of Chief Complaint: Atraumatic neck pain Informant: patient Onset/Context/Timing Onset: Days Context: Sudden Onset Timing: Continuous Quality: Sharp pain Location: Posterior neck Current Severity: Mild Maximum Severity: Severe Worsened by: Any type of movement Relieved by: Nothing Associated Symptoms Associated Symptoms: No radicular pain, no paresthesia, no weakness in her upperextremities Narrative Narrative: Patient is an 84-year-old woman. She presents from home by ambulance because ofsevere pain. Her daughter called the ambulance. She has taken ivwa-nou-cgkqmzcpqynqbwvct and applied heat with no benefit. She denies direct or indirect trauma. She denies fall asleep on the sofa or chair. She denies radi cular pain. She states she had some tingling in all her fingers yesterday. She did not have that before. She denies headache. She denies visual, ocular auditory symptoms. She denies cardiac or respiratorysymptoms. She denies any new symptoms in her legs. She had fusion of the lumbar spine by Dr. Kramer at [facility]. She denies fever, chills night sweats. Denies weight gain or weight loss. She denies any recent dental procedures. Prior similar symptoms: No Recent Illness/Hospitalization: Yes PFSH PFSH Home Medications ?Medication ?Instructions ?Recorded ?Last Taken ?Type hydroxyzine HCl 10 mg tablet 10 mg PO QHS 11/30/24 Unk nown History sertraline 100 mg tablet 200 mg PO DAILY 11/30/24 Unk nown History sumatriptan succinate 50 mg tablet mg PO 11/30/24 Unkn own History Allergy/AdvReac Type Severity Reaction Status Date / Time No Known Allergies Allergy Verified 11/30/24 10:25 Social History (Updated 11/30/24 @ 10:[address] Dorian Ballard MD) household members: family Smoking Status: Never smoker ROS ROS ED Constitutional Constitutional ED: Denies chills, fever(s), subjective, sweats or weight loss Eyes Eyes: Denies blurry vision or change in vision ENT ENT ED: Denies ear pain, rhinorrhea or sore throat Cardiovascular Cardiovascular: Denies chest pain, palpitations or racing heartbeat Respiratory/Chest Respiratory/Chest: Denies cough, dyspnea or dyspnea on exertion Gastrointestinal Gastrointestinal: Denies abdominal pain, nausea or vomiting Genitourinary Genitourinary ED: Denies dysuria, hematuria or urinary frequency Musculoskeletal Musculoskeletal: Reports neck pain; Denies arthralgias, back pain or myalgias Integumentary Denies rash Neurologic Neurologic: Denies paresthesias or weakness Hematologic/Lymphatic Hematologic/Lymphatic: Reports systems reviewed and no addt'l complaints, exceptas documented EXAM Physical Exam Const Vital Signs: 11/30/24 10:24 11/30/24 13:18 Temperature 98 F 98.1 F Temperature Source Temporal Pulse Rate 84 70 Respiratory Rate 14 14 Blood Pressure 135/61 H 113/66 Blood Pressure Mean 85 81 Pulse Ox 94 93 Oxygen Delivery Method Room Air Positive well nourished and well developed Constitutional Narrative: Patient appears uncomfortable. She is a thin woman. General Appearance ED: well developed; Negative for cyanotic, diaphoretic, NAD or pallor HEENT Reports moist mucous membranes HEENT Narrative: Head is atraumatic and normocephalic. Ears are normal. TMs normal. Nares are patent. Posterior pharynx is normal. trauma and tenderness Eyes PERRL and EOMs intact bilaterally General Eye ED: Negative for pale conjunctiva or scleral icterus Neck no lymphadenopathy, No supple and no JVD Neck Narrative: Patient has limited range of motion i.e. flexion, extension rotation right or left. She has predominantly Ilir lateral posterior cervical spine tenderness. There is no posterior cervical lymphadenopathy. There are no dermatologic lesions noted. Resp normal respiratory effort and clear to auscultation bilaterally Cardio regular rate, regular rhythm, S1 normal heart sound, S2 normal heart sound and no murmurs GI normal to inspection, nondistended, normoactive bowel sounds, non-tender, non- distended and no masses; Negative for hepatosplenomegaly Back/Spine Cervical Spine: cervical spine tenderness Cervical Spine Tenderness Details: C2,C3, C4, C5, C6 and C7 Thoracic Spine / Upper Back: Negative for thoracic spinal tenderness Lumbar Spine / Lower Back: Negative for lumbar spinal tenderness Extremity Extremity Narrative: Patient has significant surgical scar right knee. There is no clubbing or cyanosis of the upper or lower extremities. Patient has palpable distal pulses upper and lower extremity. Neuro oriented x3, CN's II-XII intact bilaterally and no sensory deficits noted Neuro Narrative: DTR are 3-4+ bicep, brachialis and tricep and 1+ at the patella and ankle. There is no abnormal sensation see 5 through T1 dermatome right or left upper extremity. Sensorium / Orientation: alert Motor Exam: strength 5/5 throughout Skin no rashes or lesions noted, no wounds and skin turgor normal General Skin Exam: Negative for elasticity normal, jaundice or pallor MDM MDM MDM Narrative Medical decision making narrative: Patient with atraumatic neck pain without radicular pain or sensory deficit. Her reflexes are hyperreflexic. Will start with x-ray. She was medicated with morphine for her pain. There are no prior records available Lab Data Attestation: I reviewed the patient's lab results. Lab results narrative: White count is slightly elevated. Patient does have anemia with normal indices. BMP has a normal BUN and creatinine however estimated creatinine clearance calculated is 37.5 with an estimated GFR of 80. Glucose slightly evaded at 112. Labs: Laboratory Results - last 24 hr 11/30/24 10:49 WBC 12.4 H RBC 3.31 L Hgb 9.0 L Hct 28.3 L MCV 85.5 MCH 27.2 MCHC 31.8 L RDW Std Deviation 45.6 H RDW Coeff of David 14.6 Plt Count 334 MPV 10.4 Sodium 141 Potassium 4.1 Chloride 102 Carbon Dioxide 27.9 Anion Gap 11 BUN 10 Creatinine 0.74 Estim Creat Clear Calc 37.60 L Est GFR (MDRD) Non-Af 80 BUN/Creatinine Ratio 14.0 Glucose 112 H Calcium 8.6 Radiography Chest X-Ray - ED: Read by ED Physician (5 view x-ray of the neck reveals some minimal degenerative changes. No significant narrowing of the cervical foramensright or left.) Diagnostic Testing: Clinical Impression(s) from Imaging Studies Cervical Spine X-Ray 11/30/24 11:00 IMPRESSION: Moderate cervical degenerative changes. Slight leftward offset of the dens of the axis, likely due to patient positioning. If continued clinical concern, CT C-spine could be obtained for further evaluation. Reading Location: [id number] Management Discussion w/another healthcare provider: Hospitalist (Spoke to Dr. Larkin. Clarification guardingpatient's paresthesia, observation with consult to OT PT and case management) Treatment and Re-Evaluation :: There is states they were able to get patient off. She did ambulate with walker. She ambulated slowly. Concern by her nurse, Renata, is that daughter is not able to lift her so that she is able to walk. Comments:: The social service liaison informed that her insurance requires a 3-day hospital stay. She just had qualified for 3-day hospital stay. She recommend observation status with OP and PT evaluation andcase management to work with her insurance company for placement at nursing facility based on her age and risk for fall. Discharge Plan Dx/Rx/DC Orders Clinical Impression: Acute cervical myofascial strain, Difficulty in walking, Adult failure to thrive, Chronic anemia, Elevated blood-pressure reading without diagnosis of hypertension Disposition Disposition: Acute Care Hospital [facility] What to do if you have Problems For any increased pain, shortness of breath, bleeding, nausea or vomiting, chestpain, or any unexpected problems, contact your Primary Care Provider. Call [facility] ([phone]) or report tothe closest Emergency Room. Call 911 if necessary. 11/30/24 1320 Cosigner Signature (if applicable): CC: ~ Signed [facility]06-22-2025 Radiology Diagnostic study note [facility] Imaging Services [address] [place] [address] Cerv Spine 4 or 5 Views MR#: [id number] Acct: [id number] Name: KATHRYN TAMEZ I Rep #: [id number] : 1940 F 84 From: Arleen Cochran MD PCP: OUT OF TOWN DOCTOR Status: REG ER Study:Cerv Spine 4 or 5 Views Date of Exam: 11/30/24 Exam# [id number] Ordering Dr: Jason Ballard MD PROCEDURE: CERV SPINE 4 OR 5 VIEWS 11/30/2024 REASON FOR EXAM: NECK PAIN TECHNIQUE: CERV SPINE 4 OR 5 VIEWS COMPARISON: None. FINDINGS: Vertebrae: Severe osseous demineralization. Mild multilevel vertebral body height loss. Slight leftward offset of the dens of axis on the odontoid radiograph. The bilateral lateral atlantoaxial joints are grossly symmetric. Disc spaces: At least moderate multilevel degenerative disc disease. Alignment: No obvious traumatic listhesis. Soft tissues: Unremarkable. RAD/Cerv Spine 4 or 5 Views IMPRESSION: Moderate cervical degenerative changes. Slight leftward offset of the dens of the axis, likely due to patient positioning. If continued clinical concern, CT C-spine could be obtained for further evaluation. Reading Location: [id number] CC: Dr. Dorian Ballard MD ~ Contamination Consultant: Signed [facility]06-17-2025 Telephone encounter Note* Telephone Encounter - Dena Guy - 11/25/2024 4:05 PM EDT Emma from [facility] ([phone]) LVM stating that the pt's daughter is requesting orders for a home health aid to help the pt shower and dress. Emma states that is usually 1/2 times a week for 4 weeks. Emma also asked if she could also have an order for social work to see if there are any community resources for some terminal supervisor home health aids. Emma stated that she can take a verbal for those or they can be faxed to [phone]. Please advise. Dena Guy November 25, 2024 4:11 PM [facility]06-17-2025 Miscellaneous Notes* Telephone Encounter - Dena Guy - 11/25/2024 4:05 PM EDT Emma from [facility] ([phone]) LVM stating that the pt's daughter is requesting orders for a home health aid to help the pt shower and dress. Emma states that is usually 1/2 times a week for 4 weeks. Emma also asked if she could also have an order for social work to see if there are any community resources for some terminal supervisor home health aids. Emma stated that she can take a verbal for those or they can be faxed to [phone]. Please advise. Dena Guy November 25, 2024 4:11 PM documented in this encounterL[facility] NoteHNO ID: [id number] Author: MERCEDES TOVAR, RN Service: ? Author Type: Registered Nurse Type: Progress Notes Filed: 11/19/2024 10:48 Note Text: TRANSITIONAL CARE MANAGEMENT (TCM) COMMUNITY MONITORING PROGRAM - [facility] Provider Action/FYI: Patient/daughter would like to know if atarax can be reordered for patient's anxiety. It was discontinued 09/05/24 because she was on an ATB for a UTI at that time. Mercedes Tovar RN SUMMARY: Pt discharged from [facility] on 11/18/24. Admitted for: Colitis due to C diff Patient seen Inpatient KAVYA Visit? N/A. Patient seen ICARE Program? N/A. Contact made with patient: Yes Hi my name is Mercedes Tovar RN and I am calling from the [facility] on behalf of your PCP, Leonardo Lyles APRN.[employer]IVATE [employer] B[employer]ER SAFE I understand you were recently in the hospital so I am calling to check in with you to ensure you are feeling well now that you?re home. Do you mind if I ask you a few questions related to your hospital stay and well-being Yes Contact with patient post discharge, spoke to patient. Patient identified by name and . Do you feel your health is BETTER, WORSE, or the SAME since leaving the hospital? Better ACTION TAKEN: Patient indicated symptoms are better or same, no action required. Continue outreach. N/A MEDICATIONS: Many patients have questions or concerns about their medications once they are home. Do you have any questions about taking your medications or which medication you should be on? No Do you need any medication refills at this time, including any of the medications you might take only when needed? Would like atarax restarted. ACTION TAKEN: Patient has questions about medications - Inform PCP care team or pharmacist - they will be in contact to discuss further. Routed to Primary Care Provider or TCM Pharmacist, indicated in the FYI box. For RNs or Pharmacy completing outreach ONLY, was a medication review completed? Yes Current/Discharged Medications reviewed: Yes Medication List Medication Directions Comments Action/Plan gabapentin (NEURONTIN) 300 mg capsule Take 300 mg by mouth two times a day. Pain MGMT levothyroxine (SYNTHROID) 88 mcg tablet Take 1 tablet by mouth once daily. sertraline (ZOLOFT) 100 mg tablet Take 2 tablets by mouth once daily. SUMAtriptan (IMITREX) 50 mg tablet Take 1 tablet by mouth as needed (at onset of headache. May repeat after 2 hours.). SOCIAL: We would like to make sure you have what you need so that your basics needs are met - including your personal safety. HEALTH LEADS SCREENING TOOL QUESTIONS: Do you often feel you lack companionship? No Do you ever need help reading or understanding hospital materials? No In the last 12 months, have you changed how you take medications to save money? No In the past 12 months, has lack of transportation kept you from medical appointments, work or getting things you need like food, or supplies? No In the last 12 months, did you ever eat less than you felt you should because there wasn't enough money for food? No During the winter, do you anticipate having a problem paying your heating bill? No In the next 2 months, are you worried you might not have stable housing? No Would you like to speak with a social work steam oven operator to help give you support for any of these needs? No It can be normal to feel anxious or down during a time like this. Would you like to talk to a mental health professional about how you have been feeling? No ACTION TAKEN: No action taken DISCHARGE INTRUCTIONS: Your discharge instructions / After Visit Summary (AVS) are important in guiding you through the recovery process. Do you have any questions related to your discharge instructions? No Do you have all the necessary equipment and supplies at home? Yes ACTION TAKEN: No action required WRAP AROUND SERVICES: N/A Patient educated on importance of primary care provider follow up visit as well as specialty provider follow up visits as indicated. Inform the patient that if they have any questions or concerns prior to that appointment, to call their Primary Care Provider 's office right away. Primary care provider first education provided. I would like to help you schedule a hospital follow-up virtual or telephone visit with your PCP. ACTION TAKEN: TCM Primary Care Provider Visit Scheduled: Yes - Appt date: 11/25/24 with Leonardo Lyles CNP Your doctor would like us to remind you of the recommendations regarding the coronavirus (Covid19) outbreak: Avoid public places as much as possible. Avoid close contact (within 6 feet) with others you don't live with, especially if they are sick. Stay home if you are sick. Wash your hands regularly for at least 20 seconds with soap and water. Wear a cloth mask in public places to help reduce community spread. Do not go to your Doctor's office unless instructed to do so. For any non-emergency symptoms, ca (more content not included)...[facility]06-11-2025 History of Present illness Narrative* Mercedes Tovar RN - 11/19/2024 10:32 AM EDT TRANSITIONAL CARE MANAGEMENT (TCM) COMMUNITY MONITORING PROGRAM - [place] Provider Action/FYI: Patient/daughter would like to know if atarax can be reordered for patient's anxiety. It was discontinued 09/05/24 because she was on an ATB for a UTI at that time. Mercedes Tovar, MUKESH SUMMARY: Pt discharged from [facility] on 11/18/24. Admitted for: Colitis due to C diff Patient seen Inpatient KAVYA Visit? N/A. Patient seen ICARE Program? N/A. Contact made with patient: Yes Hi my name is Mercedes Tovar RN and I am calling from the [facility] on behalfof your PCP, Leonardo Lyles APRN.MIKAEL I understand you were recently in the hospital so I am calling to check in with you to ensure you are feeling well now that you re home. Do you mind if I ask youa few questions related to your hospital stay and well-being Yes Contact with patient post discharge, spoke to patient. Patient identified by name and . Do you feel your health is BETTER, WORSE, or the SAME since leaving the hospital? Better ACTION TAKEN: Patient indicated symptoms are better or same, no action required. Continue outreach. N/A MEDICATIONS: Many patients have questions or concerns about their medications once they are home. Do you have any questions about taking your medications or which medication you should be on? No Do you need any medication refills at this time, including any of the medications you might take only when needed? Would like atarax restarted. ACTION TAKEN: Patient has questions about medications - Inform PCP care team or pharmacist - they will be in contact to discuss further. Routed to Primary Care Provider or TCM Pharmacist, indicated in the FYI box. For RNs or Pharmacy completing outreach ONLY, was a medication review completed? Yes Current/Discharged Medications reviewed: Yes Medication List Medication Directions Comments Action/Plan gabapentin (NEURONTIN) 300 mg capsule Take 300 mg by mouth two times a day. Pain MGMT levothyroxine (SYNTHROID) 88 mcg tablet Take 1 tablet by mouth once daily. sertraline (ZOLOFT) 100 mg tablet Take 2 tablets by mouth once daily. SUMAtriptan (IMITREX) 50 mg tablet Take 1 tablet by mouth as needed (at onset of headache. May repeat after 2 hours.). SOCIAL: We would like to make sure you have what you need so that your basics needs are met - including your personal safety. HEALTH LEADS SCREENING TOOL QUESTIONS: Do you often feel you lack companionship? No Do you ever need help reading or understanding hospital materials? No In the last 12 months, have you changed how you take medications to save money? No In the past 12 months, has lack of transportation kept you from medical appointments, work or getting things you need like food, or supplies? No In the last 12 months, did you ever eat less than you felt you should because there wasn't enough money for food? No During the winter, do you anticipate having a problem paying your heating bill? No In the next 2 months, are you worried you might not have stable housing? No Would you like to speak with a social work steam oven operator to help give you support for any of these needs? No It can be normal to feel anxious or down during a time like this. Would you like to talk to a mental health professional about how you have been feeling? No ACTION TAKEN: No action taken DISCHARGE INTRUCTIONS: Your discharge instructions / After Visit Summary (AVS) are important in guiding you through the recovery process. Do you have any questions related to your discharge instructions? No Do you have all the necessary equipment and supplies at home? Yes ACTION TAKEN: No action required WRAP AROUND SERVICES: N/A Patient educated on importance of primary care provider follow up visit as well as specialty provider follow up visits as indicated. Inform the patient that if they have any questions or concerns prior to that appointment, to call their Primary Care Provider 's office right away. Primary care provider first education provided. I would like to help you schedule a hospital follow-up virtual or telephone visit with your PCP. ACTION TAKEN: TCM Primary Care Provider Visit Scheduled: Yes - Appt date: 11/25/24 with Leonardo Lyles CNP Your doctor would like us to remind you of the recommendations regarding the coronavirus (Covid19) outbreak: Avoid public places as much as possible. Avoid close contact (within 6 feet) with others you don't live with, especially if they are sick. Stay home if you are sick. Wash your hands regularly for at least 20 seconds with soap and water. Wear a cloth mask in public places to help reduce community spread. Do not go to your Doctor's office unless instructed to do so. For any non- emergency symptoms, call your Doctor's office to get instructions on how to manage (we might recommend a telephone or virtualvisit). For emergency symptoms, proceed to Emergency Department as usual but inform them of cough and fever symptoms FRANCIA if present (or call on the way if possible). Mercedes Tovar RN documented in this encounterL[facility]06-[facility] NotePatient Outreach (AGACM) KATHRYN TAMEZ I ([id number]) 1940 F T Date Time Provider Department 11/19/24 MERCEDES TOVAR AGAJOSSIE During your visit today, we recorded the following information about you: Mercedes Tovar, RN 11/19/2024 10:48 AM Signed TRANSITIONAL CARE MANAGEMENT (TCM) COMMUNITY MONITORING PROGRAM - YARY Provider Action/FYI: Patient/daughter would like to know if atarax can be reordered for patient's anxiety. It was discontinued 09/05/24 because she was on an ATB for a UTI at that time. Mercedes Tovar RN SUMMARY: Pt discharged from [facility] on 11/18/24. Admitted for: Colitis due to C diff Patient seen Inpatient KAVYA Visit? N/A. Patient seen ICARE Program? N/A. Contact made with patient: Yes Hi my name is Mercedes Tovar RN and I am calling from the [facility] on behalf of your PCP, Leonardo Lyles APRN.PRIVATE [employer] BANKER SAFE I understand you were recently in the hospital so I am calling to check in with you to ensure you are feeling well now that you?re home. Do you mind if I ask you a few questions related to your hospital stay and well-being Yes Contact with patient post discharge, spoke to patient. Patient identified by name and . Do you feel your health is BETTER, WORSE, or the SAME since leaving the hospital? Better ACTION TAKEN: Patient indicated symptoms are better or same, no action required. Continue outreach. N/A MEDICATIONS: Many patients have questions or concerns about their medications once they are home. Do you have any questions about taking your medications or which medication you should be on? No Do you need any medication refills at this time, including any of the medications you might take only when needed? Would like atarax restarted. ACTION TAKEN: Patient has questions about medications - Inform PCP care team or pharmacist - they will be in contact to discuss further. Routed to Primary Care Provider or TCM Pharmacist, indicated in the FYI box. For RNs or Pharmacy completing outreach ONLY, was a medication review completed? Yes Current/Discharged Medications reviewed: Yes Medication List Medication Directions Comments Action/Plan gabapentin (NEURONTIN) 300 mg capsule Take 300 mg by mouth two times a day. Pain MGMT levothyroxine (SYNTHROID) 88 mcg tablet Take 1 tablet by mouth once daily. sertraline (ZOLOFT) 100 mg tablet Take 2 tablets by mouth once daily. SUMAtriptan (IMITREX) 50 mg tablet Take 1 tablet by mouth as needed (at onset of headache. May repeat after 2 hours.). SOCIAL: We would like to make sure you have what you need so that your basics needs are met - including your personal safety. HEALTH LEADS SCREENING TOOL QUESTIONS: Do you often feel you lack companionship? No Do you ever need help reading or understanding hospital materials? No In the last 12 months, have you changed how you take medications to save money? No In the past 12 months, has lack of transportation kept you from medical appointments, work or getting things you need like food, or supplies? No In the last 12 months, did you ever eat less than you felt you should because there wasn't enough money for food? No During the winter, do you anticipate having a problem paying your heating bill? No In the next 2 months, are you worried you might not have stable housing? No Would you like to speak with a social work steam oven operator to help give you support for any of these needs? No It can be normal to feel anxious or down during a time like this. Would you like to talk to a mental health professional about how you have been feeling? No ACTION TAKEN: No action taken DISCHARGE INTRUCTIONS: Your discharge instructions / After Visit Summary (AVS) are important in guiding you through the recovery process. Do you have any questions related to your discharge instructions? No Do you have all the necessary equipment and supplies at home? Yes ACTION TAKEN: No action required WRAP AROUND SERVICES: N/A Patient educated on importance of primary care provider follow up visit as well as specialty provider follow up visits as indicated. Inform the patient that if they have any questions or concerns prior to that appointment, to call their Primary Care Provider 's office right away. Primary care provider first education provided. I would like to help you schedule a hospital follow-up virtual or telephone visit with your PCP. ACTION TAKEN: [facility] Primary Care Provider Visit Scheduled: Yes - Appt date: 11/25/24 with Leonardo Lyles CNP Your doctor would like us to remind you of the recommendations regarding the coronavirus (Covid19) outbreak: Avoid public places as much as possible. Avoid close contact (within 6 feet) with others you don't live with, especially if they are sick. Stay home if you are sick. Wash your hands regularly for at least 20 secon (more content not included)... [facility]06-10-2025 Telephone encounter Note* Telephone Encounter - Dena Guy - 11/18/2024 3:31 PM EDT [facility] notified that Loenardo will follow. Spoke to a [place]ell but she was not the right Anabell. The phone number provided was not correct. Dena Guy November 18, 2024 3:33 PM [facility]06-10-[facility] Miscellaneous Notes* Telephone Encounter - Dena Guy - 11/18/2024 3:31 PM EDT [facility] notified that Leonardo will follow. Spoke to a Anabell but she was not the right Anabell. The phone number provided was not correct. Dena Guy November 18, 2024 3:33 PM * Telephone Encounter - Leonardo Lyles APRN.CNP - 11/18/2024 2:49 PM EDT Yes I can Leonardo Lyles APRN.CNP * Telephone Encounter - Amee Otto PSS - 11/18/2024 2:41 PM EDT [facility] communication center coordinator calling asking if Leonardo will follow for home care. Please Advise. FRANKO Unger November 18, 2024 2:44 PM [phone] documented in this encounterLake[facility]06-10-2025 Telephone encounter Note * Telephone Encounter - Leonardo Lyles APRN.CNP - 11/18/2024 2:49 PM EDT Yes I can Leonardo Lyles APRN.CNP [facility]06-10-[facility] Telephone encounter Note* Telephone Encounter - Amee Otto PSS - 11/18/2024 2:41 PM EDT [place] communication center coordinator calling asking if Leonardo will follow for home care. Please Advise. FRANKO Unger November 18, 2024 2:44 PM [phone] [facility]06-10-[facility] Hospital course Narrative* Juan A Hinds Jr., DO - 11/18/2024 12:30 PM EDT Hospitalist Discharge Summary Kathryn Tamez : 1940 Admit date: 11/07/2024 Discharge date: 11/18/2024 Admitting Physician: Sherry Pruitt MD Primary Care Physician: Leonardo Lyles Visit Status: stable for DC home Code Status: Prior BRIEF HOSPITAL COURSE: This is a 84 y.o. female s/p L2-L5 revision and decompression done on 11/[address] Morrison.On reviewof documentation from [facility], patient was seen to have had an intraoperative dural tear which was repaired during surgery and complaining of intermittent headaches. She began passing flatus and had a liquid bowel movement on 11/07 and was tolerating regular diet. She was recently treated forc-diff in September with course of PO vancomycin. Due to diarrhea, stool tested again and positive again (C-diff) so pt was transferred to [facility]. Upon arrival, pt hypoxic in the 80s on RA and did admit to some sob and cough. CXR with RUL infiltrate. Pt was admitted, started on cefepime/azithro for pneumonia and fidaxomycin for recurrent c-diff. Labs showed initial leukocytosis of 32.6. Diarrhea and leukocytosis improved with treatment. Legionella/strep negative. Azithromycin discontinued on 11/08. Continued to have diarrhea, poor appetite and poor mobility. Nation maintained. Added nutritional supplements. Discontinued lasix due to excessive diarrhea and risk of dehydration. Respiratory status improved. No productive cough since admission so sputum labs cancelled. Echocardiogram unremarkable. Shehad an extended stay due to cost of Dificid with improvement in symptoms. PT/OT recommended SNF - patient reports good suppot at home and politely declined and asked for HHC. She reported black stool- fecal occult POS on 11/17 and GI was consulted. Deemed stable for OP follow up. Discharged in stable condition. 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 Now on zosyn and improved Hypokalemia Stable chronic problems affecting care, new non-acute diagnoses: Hypothryoid Depression GERD Medical History[1] Procedures: as above Hospital Course: See discharge diagnoses list above and medication adjustments below in med rec.Thepatient is discharged in improved and stable condition. Consults: IP CONSULT TO GI IP CONSULT TO HOME CARE NEEDS Discharge Instructions: Diet: Activity: as tolerated Recommended Outpatient Tests: Disposition: Patient discharged in stable condition to Home. Greater than 31 minutes spent discharging the patient and coming up with patient discharge plan. Vitals: BP 128/65 (BP Location: Right arm, Patient Position: Sitting) Pulse 70 Temp 36.5 C (97.7 F) (Temporal) Resp 16 Ht 5' 0.98 (1.549 m) Wt 119 lb (54 kg) LMP (LMP Unknown) SpO2 94% BMI 22.50 kg/m Pulse Ox: SpO2 Av % Min: 94 % Max: 94 % Supplemental O2: O2 Flow Rate (L/min): 2 L/min Physical Exam Vitals and nursing note reviewed. Constitutional: General: She is not in acute distress. Appearance: Normal appearance. Cardiovascular: Rate and Rhythm: Normal rate and regular rhythm. Heart sounds: Normal heart sounds. Pulmonary: Effort: Pulmonary effort is normal. Breath sounds: Normal breath sounds. No wheezing. Musculoskeletal: Right lower leg: No edema. Left lower leg: No edema. Neurological: Mental Status: She is alert. LABS: Recent Labs 11/16/24 0532 11/17/24 0343 11/18/24 0435 NA 141 140 141 K 4.2 3.8 4.3 CL 109* 107 107 CO2 27 25 26 BUN 12 11 10 CREATININE 0.64 0.68 0.68 GLUCOSE 103 104 97 CALCIUM 8.2* 8.4* 8.3* Recent Labs 11/16/24 0532 11/17/24 0343 11/18/24 0435 WBC 17.7* 16.6* 18.1* RBC 3.36* 3.13* 3.17* HGB 9.2* 8.6* 8.7* HCT 28.9* 26.6* 27.4* MCV 86.0 85.0 86.4 MCH 27.4 27.5 27.4 MCHC 31.8 32.3 31.8 RDW 16.2* 16.4* 16.5* PLT 364 341 367 MPV 11.0 11.1 11.3 Discharge Medications: Medication List CONTINUE taking these medications famotidine 20 MG tablet Commonly known as: Pepcid gabapentin 300 MG capsule Commonly known as: Neurontin HYDROcodone-acetaminophen 10-300 MG tablet Commonly known as: Vicodin hydrOXYzine HCl 10 MG tablet Commonly known as: Atarax sertraline 100 MG tablet Commonly known as: Zoloft SUMAtriptan 50 MG tablet Commonly known as: Imitrex Synthroid 88 MCG tablet Generic drug: levothyroxine Tylenol Extra Strength 500 MG tablet Generic drug: acetaminophen Recommended Follow-up: Cali Turpin MD [address] [facility] [address] Call in 2 week(s) Follow up for scheduled post operative appointment Leonardo Lyles [address] [facility] [address] Go on 11/25/2024 11/25/24 at 2:[address] Lyles Complexity of Follow up: [] Moderate Complexity: follow up within 7-14 calendar days (46450) [x] Severe Complexity: follow up within 7 calendar days (51734) Follow up Testing, Pending results or Referrals at Transitional Care Visit: [x] yes [] no Instructions to MA: Please call patient on day after discharge (must document patient contacted within 2 business days of discharge). Follow up questions for MA: 1. Did you get medications filled and taking them as instructed from discharge? 2. Are you following your discharge instructions from your hospital stay? 3. Please confirm patient is scheduled for a follow up appointment within the above time frame. Signed: Juan A Hinds DO Division of Hospitalist Medicine [facility] 11/18/2024, 5:52 PM [1] Past Medical History: Diagnosis Date Back pain Depression Gastritis GERD (gastroesophageal reflux disease) Hypothyroid documented in this [facility]06-10-2025 Miscellaneous Notes* Care Coordination - Unknown Case Management - 11/18/2024 12:30 PM EDT Patient Choice Patient Name: KATHRYN TAMEZ I Date of : 1940 All Providers Sent [facility]: [phone] [address]: [address] [place] [address] * Home Care - Vannessa Ryder RN - 11/18/2024 12:30 PM EDT [facility] has tried several times today to reach both patient and daughter Hyun. Message left, awaiting response. PCP agreeable to follow for home care. * Care Plan - Matteo Klein RN - 11/18/2024 11:06 AM EDT Problem: Knowledge Deficit Goal: Patient/family/caregiver demonstrates understanding of disease process, treatment plan, medications, and discharge instructions Outcome: Progressing Problem: Potential for Compromised Skin Integrity Goal: Skin Integrity is Maintained or Improved Outcome: Progressing Goal: Nutritional status is improving Outcome: Progressing * Home Care - Vannessa Ryder RN - 11/17/2024 2:06 PM EDT Discussed in rounds this AM that plan was [facility], but now plan has changed to home with home care. Attempted to reach pt in room, no answer. Attempted to reach pt's daughter, no answer, left message. Awaiting response. Will follow-up. * Home Care - Vannessa Ryder RN - 11/17/2024 2:04 PM EDT Start [facility] Note Home Health Referral Educated patient and daughter on Home Care and services available. Patient offered choice of available HHC and agreeable to SN/PT services with [facility]. Care Types: None Isolation Precautions: Enhanced Contact Social Determinates of Health: Tobacco Use: Medium Risk (11/13/2024) Patient History Smoking Tobacco Use: Former Smokeless Tobacco Use: Never Passive Exposure: Not on file Social History Substance and Sexual Activity Alcohol Use Yes Comment: rarely Social History Substance and Sexual Activity Drug Use No Does the patient have any financial resource strain? No Does the patient have any food insecurities? No Does the patient have any housing instabilities? No If any of the above is noted as yes - consider a PRINCIPAL ARCHITECT evaluation once the patient returns home. START PATIENT REGISTRATION INFORMATION Order Information Order Signing Physician: Justus Herrera MD Service Ordered RN ?: Yes Service Ordered PT ?: Yes Service Ordered OT ?: No Service Ordered ST ?: No Service Ordered PRINCIPAL ARCHITECT?:No Service Ordered EXPERIENCE DESIGN DIRECTOR?: No Following Physician: Leonardo Lyles Following Physician Overseeing Physician: Leonardo Lyles (Required for Residents only) Agreeable to Follow? Yes Date/Time of Call 11/17/24 2:04 PM, Spoke with: Dena at Leonardo Lyles's office Care Coordination Same Day SOC?: No Primary Care Physician: Leonardo Lyles Primary Care Physician Primary Care Physician Address: [address] [place] [address] / REPLACED BY [facility] [id number] Visit Instructions: N/A Service Discharge Location Type: Home with Home Care Service Facility Name: N/A Service Floor Facility: N/A Service Room No: N/A Demographics Patient Last Name: Dashawn Patient First Name: Kathryn Language/Communication Barrier: n/a Service Address: [address] [place] [address] Service City: [place] Service ST: [place] Service ZIP: [address] Service (home) Other phone numbers: Telephone Information: Emergency Contact: Extended Emergency Contact Information Primary Emergency Contact: Hyun Purcell Mobile Relation: Daughter Admission Information Admit Date: 11/07/2024 Patient status at discharge: Inpatient Admitting Diagnosis: Colitis due to Clostridioides difficile [A04.72] Caregiver Information Caregiver First Name: Hyun Caregiver Last Name: Jazzy Caregiver Relationship to Patient: daughter Caregiver Caregiver Notes: N/A [employer] List HIGHTECH: ImmuVen TECH - NEXT DAY REQUEST Requests Next Available SOC/JERRY END PATIENT REGISTRATION INFORMATION Pt Home Health goal home COVID Status 1. Do you have any upper respiratory symptoms (cough, SOB, Fever)? No 2. Have you been exposed to anyone with COVID-19 Virus? No Answer only if pending or positive for COVID-19? 1. Agreeable to wear PPE at each visit? No 2. Is the hospital supplying them with PPE upon Discharge? No Start PACC Summary General Report/ Additional Comments This is a 84 y.o. female s/p L2-L5 revision and decompression done on 11/[address] Morrison.On reviewof documentation from [facility], patient was seen to have had an intraoperative dural tear which was repaired during surgery and complaining of intermittent headaches. She began passing flatus and had a liquid bowel movement on 11/07 and was tolerating regular diet. She was recently treated forc-diff in September with course of PO vancomycin. Due to diarrhea, stool tested again and positive again (C-diff) so pt was transferred to [facility]. Upon arrival, pt hypoxic in the 80s on RA and did admit to some sob and cough. CXR with RUL infiltrate. Pt was admitted, started on cefepime/azithro for pneumonia and fidaxomycin for recurrent c-diff. Labs showed initial leukocytosis of 32.6. Diarrhea and leukocytosis improved with treatment. Legionella/strep negative. Azithromycin discontinued on 11/08. Continued to have diarrhea, poor appetite and poor mobility. Nation maintained. Added nutritional supplements. Discontinued lasix due to excessive diarrhea and risk of dehydration. Respiratory status improved. No productive cough since admission so sputum labs cancelled. Echocardiogram unremarkable. Shehad an extended stay due to cost of Dificid with improvement in symptoms. PT/OT recommended SNF - patient reports good suppot at home and politely declined and asked for HHC. She reported black stool- fecal occult POS on 11/17 and GI was consulted. Agreeable to SN/PT/eval for OT with [facility]. Denied DME needs. Pt finished course of dificid prior to dc. Discharge Date: pending Referral Source-PACC: (Hospital/Unit): [facility] / H-[id number]/H-[id number] A End PACC Note * Care Coordination - Pepper Boyer - 11/17/2024 7:57 AM EDT Updated placed to [facility] SNF via Careport per TCC request. * Care Coordination - Nicki Warner RN - 11/17/2024 7:45 AM EDT Care Management Progress Note 11/17/24 0744 Rapid Rounds Attendance Seo Manager Planned Discharge Disposition SNF ([facility]) Today we still await Other (comment);Facility pre-cert Additional Comments: completion of Dificid [facility] requesting updates via CarePort to start authorization; [facility] tasked to send. CM will continue to follow. Addendum: Per Dr Herrera, Dificid completed and patient is medically stable for discharge, and would like togo home instead of SNF. Spoke with patient, wants to return home with HC-daughter will be staying with her for 2 weeks. [facility] aware and is following. [facility] aware of DCP home instead of placement. Patient will check with daughter to arrange transportiation home-no current discharge orders. CM will continue to follow. Addendum: Discharge order placed. Patient's daughter will provide transportation for discharge home tomorrow. * Care Plan - Keren Jenkins RN - 11/17/2024 5:40 AM EDT Problem: Potential for Compromised Skin Integrity Goal: Skin Integrity is Maintained or Improved Outcome: Progressing Goal: Nutritional status is improving Outcome: Progressing Problem: Problem Interventions Goal: Assess Nutritional Intake Outcome: Progressing * Care Plan - Alisson Murillo RN - 11/16/2024 5:12 PM EDT Problem: Knowledge Deficit Goal: Patient/family/caregiver demonstrates understanding of disease process, treatment plan, medications, and discharge instructions Outcome: Progressing Problem: Potential for Compromised Skin Integrity Goal: Skin Integrity is Maintained or Improved Outcome: Progressing Goal: Nutritional status is improving Outcome: Progressing Problem: Urinary Incontinence Goal: Perineal skin integrity is maintained or improved Outcome: Progressing Problem: Problem Interventions Goal: Assess Nutritional Intake Outcome: Progressing * Care Plan - Cheri Simon RN - 11/16/2024 1:51 AM EDT Problem: Knowledge Deficit Goal: Patient/family/caregiver demonstrates understanding of disease process, treatment plan, medications, and discharge instructions Outcome: Progressing Problem: Potential for Compromised Skin Integrity Goal: Skin Integrity is Maintained or Improved Outcome: Progressing Goal: Nutritional status is improving Outcome: Progressing Problem: Urinary Incontinence Goal: Perineal skin integrity is maintained or improved Outcome: Progressing Problem: Problem Interventions Goal: Assess Nutritional Intake Outcome: Progressing * Care Plan - Matteo Klein RN - 11/15/2024 1:09 PM EDT Problem: Potential for Compromised Skin Integrity Goal: Skin Integrity is Maintained or Improved Outcome: Progressing Goal: Nutritional status is improving Outcome: Progressing * Care Plan - Alice Granado RN - 11/14/2024 10:32 PM EDT Problem: Knowledge Deficit Goal: Patient/family/caregiver demonstrates understanding of disease process, treatment plan, medications, and discharge instructions Outcome: Progressing Problem: Potential for Compromised Skin Integrity Goal: Skin Integrity is Maintained or Improved Outcome: Progressing Goal: Nutritional status is improving Outcome: Progressing Problem: Urinary Incontinence Goal: Perineal skin integrity is maintained or improved Outcome: Progressing Problem: Problem Interventions Goal: Assess Nutritional Intake Outcome: Progressing * Care Plan - Matteo Klein RN - 11/14/2024 1:09 PM EDT Problem: Knowledge Deficit Goal: Patient/family/caregiver demonstrates understanding of disease process, treatment plan, medications, and discharge instructions Outcome: Progressing Problem: Potential for Compromised Skin Integrity Goal: Skin Integrity is Maintained or Improved Outcome: Progressing Goal: Nutritional status is improving Outcome: Progressing * Care Coordination - Nicki Warner RN - 11/14/2024 9:07 AM EDT Care Management Progress Note 11/14/24 0737 Rapid Rounds Attendance Seo Manager Planned Discharge Disposition Other (TBD, HC vs [place] [facility]) Today we still await Administering IV medications;Post-discharge arrangement completion (comment);Other (comment) Additional Comments: Awaiting [facility] ability to accept, O2 wean S/P previous lumbar decopression 10/2024, returned for cdiff and pneumonia. Currently on O2 NL, per Dr Herrera wean as appropriate, IV antibiotics until 11/14/24 and PO fidaxomicin for 10 days. Lives at home alone. DCP [facility], awaiting ability to accept. Patient is also interested in [facility] liaison following. CM will continue to follow. Addendum: [facility] unable to accept until 10 day completion of Dificid. Out of pocket expense $977 per [facility], informed patient who is unable to cover this cost. Discussed with Dr Herrera via securechat; plan to complete Dificid before discharge. Patient and facility aware. * Care Plan - Alice Granado RN - 11/14/2024 1:18 AM EDT Problem: Knowledge Deficit Goal: Patient/family/caregiver demonstrates understanding of disease process, treatment plan, medications, and discharge instructions Outcome: Progressing Problem: Potential for Compromised Skin Integrity Goal: Skin Integrity is Maintained or Improved Outcome: Progressing Goal: Nutritional status is improving Outcome: Progressing Problem: Urinary Incontinence Goal: Perineal skin integrity is maintained or improved Outcome: Progressing Problem: Problem Interventions Goal: Assess Nutritional Intake Outcome: Progressing * Care Plan - Ness Hill RN - 11/13/2024 5:03 PM EDT Problem: Knowledge Deficit Goal: Patient/family/caregiver demonstrates understanding of disease process, treatment plan, medications, and discharge instructions Outcome: Progressing Problem: Potential for Compromised Skin Integrity Goal: Skin Integrity is Maintained or Improved Outcome: Progressing Goal: Nutritional status is improving Outcome: Progressing Problem: Urinary Incontinence Goal: Perineal skin integrity is maintained or improved Outcome: Progressing Problem: Problem Interventions Goal: Assess Nutritional Intake Outcome: Progressing * Care Plan - Cheri Simon RN - 11/13/2024 3:40 AM EDT Problem: Knowledge Deficit Goal: Patient/family/caregiver demonstrates understanding of disease process, treatment plan, medications, and discharge instructions Outcome: Progressing Problem: Potential for Compromised Skin Integrity Goal: Skin Integrity is Maintained or Improved Outcome: Progressing Goal: Nutritional status is improving Outcome: Progressing Problem: Urinary Incontinence Goal: Perineal skin integrity is maintained or improved Outcome: Progressing Problem: Problem Interventions Goal: Assess Nutritional Intake Outcome: Progressing * Care Plan - Ness Hill RN - 11/12/2024 5:33 PM EDT Problem: Knowledge Deficit Goal: Patient/family/caregiver demonstrates understanding of disease process, treatment plan, medications, and discharge instructions Outcome: Progressing Problem: Potential for Compromised Skin Integrity Goal: Skin Integrity is Maintained or Improved Outcome: Progressing Goal: Nutritional status is improving Outcome: Progressing Problem: Urinary Incontinence Goal: Perineal skin integrity is maintained or improved Outcome: Progressing Problem: Problem Interventions Goal: Assess Nutritional Intake Outcome: Progressing * Care Coordination - Pepper Boyer - 11/12/2024 1:03 PM EDT Todays MAR placed to [facility]CU via Careport per TCC request. * Care Coordination - Vikki Garrison RN - 11/12/2024 12:49 PM EDT [facility] requested patient home med list. SERVICE WRITER ADVISOR tasked to send home med list. TCC to assist and follow as needed. * Home Care - Vannessa Ryder RN - 11/12/2024 12:25 PM EDT TCC spoke with pt/daughter, updated HCL that plan is now SNF. Home care signing off at this time, please re-consult if dcp changes. * Care Coordination - Pepper Boyer - 11/12/2024 11:54 AM EDT Referral placed to SNF [facility] SNF via Careport per TCC request. Await review and response regarding ability to accept. TCC notified. * Care Coordination - Vikki Garrison RN - 11/12/2024 11:49 AM EDT TCC received call from Hyun, patient daughter and discussed discharge planning. Hyun is in agreement that patient is not able to go home safely. Hyun feels her mom is a bit confused. TCC reviewed patient snf choice list with Hyun. Hyun is agreeable to make a referral to [facility] snf. SERVICE WRITER ADVISOR tasked to make a referral to [facility] snf. TCC to assist and follow as needed. * Care Coordination - Vikki Garrison RN - 11/12/2024 11:24 AM EDT Per RN in rounds patient is an assist to move in bed. clinical science liaison Kimberlee spoke with Hyun yesterday and daughter was in agreement that short term snf is a safer option. Hyun to discuss with mom.TCC spoke with Dr. Herrera and he was in agreement with snf. TCC placed call to daughter Hyun regarding discharge planning for her mom. TCC left message. TCC to assist and follow as needed. * Care Plan - Cheri Simon RN - 11/12/2024 1:18 AM EDT Problem: Knowledge Deficit Goal: Patient/family/caregiver demonstrates understanding of disease process, treatment plan, medications, and discharge instructions Outcome: Progressing Problem: Potential for Compromised Skin Integrity Goal: Skin Integrity is Maintained or Improved Outcome: Progressing Goal: Nutritional status is improving Outcome: Progressing Problem: Urinary Incontinence Goal: Perineal skin integrity is maintained or improved Outcome: Progressing Problem: Problem Interventions Goal: Assess Nutritional Intake Outcome: Progressing * Care Plan - Aris Davenport RN - 11/11/2024 4:02 PM EDT Patient continues to make attempt at eating more, needs encouragement likes sweets. Refusing blood work Mds aware. * Home Care - Vannessa Ryder RN - 11/11/2024 3:20 PM EDT Tasked by TCC to set up home care, as pt was agreeable to home care, but did not want SNF placement. Pt did not answer room phone, but was able to reach daughter listed as emergency contact and noted to be available to help pt at home. She plans to talk with pt later today or tomorrow and encourage her to consider short-term placement d/t her currently level of weakness, in order to get stronger prior to going home. TCC updated, Sheet Finisher following case for Discharge Needs. * Care Coordination - Aurora Sheth RN - 11/11/2024 10:52 AM EDT CM following, chart reviewed. Noted PT recommendation for SNF and OT eval pending. Updated on patient by her nurse during daily rounds. Met at bedside with patient, introduced self and role. Discussed with patient SNF recommendation. Patient reports she went to a SNF in [place] years ago and cannot recall its name. Patient reportsbecky recently moved to a [facility] complex in [place] and it is equipped for her needs includinggrab bars. She is unsure about SNF at this time. CM discussed with patient and also provided optionof home with home therapies. Offered to provide list of SNF's to her for review-she declined at this time. She asked for time to think about this. CM encouraged her to discuss with her family/supports and CM will follow up with her this afternoon. Patient agreeable. CM requested OT see today to assist patient with decision making. 1507-Met at bedside with patient to follow-up on SNF v [facility]. Patient spoke with her daughter and sheprefers to discharge to home. Reports she will have her daughter to help her and is agreeable to home care. CM updated [facility] Liaison and Dr. Herrera. Assigned CM will continue to follow. * Care Plan - Sacha Medina RN - 11/10/2024 8:11 PM EDT Problem: Knowledge Deficit Goal: Patient/family/caregiver demonstrates understanding of disease process, treatment plan, medications, and discharge instructions Outcome: Progressing Problem: Potential for Compromised Skin Integrity Goal: Skin Integrity is Maintained or Improved Outcome: Progressing * Care Plan - Aris Davenport RN - 11/10/2024 3:24 PM EDT Patient still with loose stools from C-Diff, worked with therapy. Complains of pain and weakness. Would benefit from placement for rehab. * Care Plan - Nancy Fisher RN - 11/09/2024 11:17 PM EDT Problem: Knowledge Deficit Goal: Patient/family/caregiver demonstrates understanding of disease process, treatment plan, medications, and discharge instructions Outcome: Progressing Problem: Potential for Compromised Skin Integrity Goal: Skin Integrity is Maintained or Improved Outcome: Progressing Goal: Nutritional status is improving Outcome: Progressing Problem: Urinary Incontinence Goal: Perineal skin integrity is maintained or improved Outcome: Progressing * Care Coordination - Kiesha Patrick RN - 11/09/2024 3:19 PM EDT Care Management Progress Note 11/09/24 1518 Rapid Rounds Attendance Seo Manager Planned Discharge Disposition (TBD) From Home alone Therapy recommending SNF Confirmed with Attempted to speak with patient over the phone and discuss discharge planning, no answer X2 Today we still await Post-discharge arrangement completion (need to discuss with patient) Symptomatic control Patient/caregiver facility choice/Facility pre-cert (if SNF is chosen) Clinical stability Attending completion of discharge workflow Chart reviewed. Patient currently unavailable/off unit. Will try again as time allows to discuss discharge planning. regional facilities manager will continue to follow for transitional care needs and discharge planning. Length of Stay (Days): 2 GMLOS: No GMLOS Documented * Care Plan - Nancy Fisher RN - 11/09/2024 2:16 AM EDT Problem: Knowledge Deficit Goal: Patient/family/caregiver demonstrates understanding of disease process, treatment plan, medications, and discharge instructions Outcome: Progressing Problem: Potential for Compromised Skin Integrity Goal: Skin Integrity is Maintained or Improved Outcome: Progressing Goal: Nutritional status is improving Outcome: Progressing Problem: Urinary Incontinence Goal: Perineal skin integrity is maintained or improved Outcome: Progressing * Care Plan - Vannessa Walden RN - 11/08/2024 4:21 PM EDT Problem: Knowledge Deficit Goal: Patient/family/caregiver demonstrates understanding of disease process, treatment plan, medications, and discharge instructions Outcome: Progressing Problem: Potential for Compromised Skin Integrity Goal: Skin Integrity is Maintained or Improved Outcome: Progressing Goal: Nutritional status is improving Outcome: Progressing Problem: Urinary Incontinence Goal: Perineal skin integrity is maintained or improved Outcome: Progressing * Care Plan - Selena Melgar RN - 11/08/2024 4:13 AM EDT Problem: Knowledge Deficit Goal: Patient/family/caregiver demonstrates understanding of disease process, treatment plan, medications, and discharge instructions Outcome: Progressing Problem: Potential for Compromised Skin Integrity Goal: Skin Integrity is Maintained or Improved Outcome: Progressing Goal: Nutritional status is improving Outcome: Progressing Problem: Urinary Incontinence Goal: Perineal skin integrity is maintained or improved Outcome: Progressing documented in this [facility]06-10-2025 Note* Care Coordination - Unknown Case Management - 11/18/2024 12:30 PM EDT Patient Choice Patient Name: KATHRYN TAMEZ I Date of : 1940 All Providers Sent Referral Name: [facility] Phone: [phone] Address: [address] [place] [id number] [id number] [facility]* Home Care - Vannessa Ryder RN - 11/18/2024 12:30 PM EDT [facility] has tried several times today to reach both patient and daughter Hyun. Message left, awaiting response. PCP agreeable to follow for home care. [id number] [facility]* Care Coordination - Unknown Case Management - 11/18/2024 12:30 PM EDT Patient Choice Patient Name: KATHRYN TAMEZ I Date of : 1940 All Providers Sent Referral Name: [facility] Phone: [phone] Address: [address] [place] [id number] [facility] [id number] Note* Home Care - Vannessa Ryder RN - 11/18/2024 12:30 PM EDT [facility] has tried several times today to reach both patient and daughter Hyun. Message left, awaiting response. PCP agreeable to follow for home care. [facility] [id number] [facility]06-10-2025 Nurse Note* Keren Osuna RN - 11/18/2024 12:15 PM EDT Home going instructions given, patient verbalizes understanding [id number] Nurse Note* Keren Osuna RN - 11/18/2024 12:15 PM EDT Home going instructions given, patient verbalizes understanding * Leslie Hernandez RN - 11/18/2024 6:54 AM EDT Wound Care consulted for Pressure Injury Prevention. Pt's Wing= 20, pt is no longer at risk at this time. Skin Care Precaution order set in place. Dietitian consult in place. PT consult in place. Will continue to follow peripherally. Please vocera or secure chat message with any questions. Myriam Hernandez RN, [facility] * Cheri Simon RN - 11/13/2024 3:41 AM EDT Patient is refusing morning blood/lab draw. * Nancy Fisher RN - 11/10/2024 1:47 AM EDT Patient refusing any more blood draws at this time, as she is a very hard stick and has had to be poked many times for Ivs and blood draws. Doctor has been notified and was okay with holding off on any more blood draws at this time. documented in this [facility]06-10-2025 Plan of care note* Care Plan - Matteo Klein RN - 11/18/2024 11:06 AM EDT Problem: Knowledge Deficit Goal: Patient/family/caregiver demonstrates understanding of disease process, treatment plan, medications, and discharge instructions Outcome: Progressing Problem: Potential for Compromised Skin Integrity Goal: Skin Integrity is Maintained or Improved Outcome: Progressing Goal: Nutritional status is improving Outcome: Progressing [facility] [id number] History of Present illness Narrative* Jenny Doss PTA - 11/18/2024 11:05 AM EDT Images from the original note were not included. PHYSICAL THERAPY [facility] Name/MRN: Kathryn Tamez ([id number]) Date: 11/18/2024 Patient politely declined PT states she is going home and moving around well. Patient reports she has no entry steps into house and already owns a walker. Jenny Doss PTA Cosigned by Josh Li PT at 11/18/2024 3:15 PM EDT * Justus Herrera MD - 11/17/2024 6:15 PM EDT Hospitalist Progress Note 11/17/2024 Subjective: Admit Date: 11/07/2024 PCP: Leonardo Lyles Room#: [id number]/[id number] A BRIEF HOSPITAL COURSE: This is a 84 y.o. female s/p L2-L5 revision and decompression done on 11/[address] Morrison.On reviewof documentation from [facility], patient was seen to have had an intraoperative dural tear which was repaired during surgery and complaining of intermittent headaches. She began passing flatus and had a liquid bowel movement on 11/07 and was tolerating regular diet. She was recently treated forc-diff in September with course of PO vancomycin. Due to diarrhea, stool tested again and positive again (C-diff) so pt was transferred to [facility]. Upon arrival, pt hypoxic in the 80s on RA and did admit to some sob and cough. CXR with RUL infiltrate. Pt was admitted, started on cefepime/azithro for pneumonia and fidaxomycin for recurrent c-diff. Labs showed initial leukocytosis of 32.6. Diarrhea and leukocytosis improved with treatment. Legionella/strep negative. Azithromycin discontinued on 11/08. Continued to have diarrhea, poor appetite and poor mobility. Nation maintained. Added nutritional supplements. Discontinued lasix due to excessive diarrhea and risk of dehydration. Respiratory status improved. No productive cough since admission so sputum labs cancelled. Echocardiogram unremarkable. Shehad an extended stay due to cost of Dificid with improvement in symptoms. PT/OT recommended SNF - patient reports good suppot at home and politely declined and asked for HHC. She reported black stool- fecal occult POS on 11/17 and GI was consulted. Interval History: 11/17: Diarrhea all but resolved. Occult stool ordered but not collected. Hb slight decline but stable overall, no bleeding noted. Patient requested DC home. Addendum - occult stool collected and POS - will consult GI, did D/W patient, with dark stool suspicious for Upper GIB. 11/16: Diarrhea improved, occult stool ordered - no results, Hb essential stable. Will complete dificid in house. She looks better today overall. 11/15: Large diarrhea this AM - black. No other complaints. All questions answered. 11/14: Diarrhea improved. She is off O2. Nation out. No acute events overnight. Will need to complete Dificid in house due to cost. 11/13: One episode of diarrhea so far today. Poor appetite. No acute events overnight. No other complaints. Will try to wean O2. 11/12: She c/o diarrhea - 4 episodes today. She c/o fatigue and not feeling well. Poor appetite. She has no other complaints. 11/11: No acute events overnight. Diarrhea overall improved, but remains. No CP or SOB. No labs today- will draw tomorrow. All questions answered. 11/10: Pt seen and examined. Still having multiple episodes of watery diarrhea today. Unable to move herself so requiring frequent cleanup by nursing. Continues to be on 4L O2 despite SpO2 documented> 95%. Turned down to 2L while in the room as pt without any respiratory complaints. K replaced today. No CBC drawn? Despite orders in place. Echo completed and unremarkable. Adult diet Regular 24HR INTAKE/OUTPUT: Intake/Output Summary (Last 24 hours) at 11/17/20241814 Last data filed at 11/17/2024 1200 Gross per 24 hour Intake 220 ml Output -- Net 220 ml Past Medical History: Medical History[1] LABS: CBC: Recent Labs 11/15/247 11/16/24 0532 11/17/24 0343 WBC 20.6* 17.7* 16.6* RBC 3.61* 3.36* 3.13* HGB 10.0* 9.2* 8.6* HCT 30.5* 28.9* 26.6* MCV 84.5 86.0 85.0 RDW 15.9* 16.2* 16.4* PLT 395 364 341 BMP: Recent Labs 11/15/242611/16/24 0532 11/17/24 0343 NA 143 141 140 K 3.2* 4.2 3.8 CL 103 109* 107 CO2 31 27 25 BUN 10 12 11 CREATININE 0.70 0.64 0.68 GLUCOSE 122* 103 104 CALCIUM 8.6* 8.2* 8.4* ANIONGAP 9 5 8 LIVER PROFILE:No results for input(s): AST, ALT, BILITOT, ALKPHOS, PROT in the last 72 hours. No lab exists for component: LABALBU PT/INR: No results for input(s): PROTIME, INR in the last 72 hours. CARDIAC ENZYMES: No results for input(s): TROPONINI in the last 72 hours. Procalcitonin: No results found for: PROCAL COVID-19 PCR: No results for input(s): COVID19 in the last 72 hours. Objective: Vitals: BP 106/50 (BP Location: Left arm, Patient Position: Sitting) Pulse 69 Temp 36.2 C (97.1F) (Temporal) Resp 16 Ht 5' 0.98 (1.549 m) Wt 119 lb (54 kg) LMP (LMP Unknown) SpO2 95% BMI 22.50 kg/m Pulse Ox: SpO2 Av % Min: 93 % Max: 95 % Supplemental O2: O2 Flow Rate (L/min): 2 L/min GENERAL: Lying in bed comfortably, awake and alert HEENT: normocephalic, non-traumatic, MMM NECK: supple, trachea midline HEART: RRR, normal S1 and S2 LUNGS: non labored, no crackles, no wheeze ABD: soft, non-tender MSK: no edema noted SKIN: warm, dry PSYCH: appropriate affect Medications: Scheduled PRN Scheduled Meds[2] PRN Meds[3] Continuous Continuous Meds[4] Assessment Data: Acute, acute on chronic, unstable/uncontrolled chronic problems/diagnoses: 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 Now on zosyn and improved Hypokalemia Stable chronic problems affecting care, new non-acute diagnoses: Hypothryoid Depression GERD Plan As a result of the above findings & factors, the following mgmt was pursued: - cont meds as ordered - discontinued azithro as legionella negative. Viral PCR negative. Discontinued sputum culture/pneumonia panel as no sputum production. Changed cefepime to zosyn on 11/08 due to mild confusion and nowimproved. Zosyn to end 11/14 per ID stewardship. - cont fidaxomycin x 10 day course - wean O2 as as tolerated as SpO2>95% - DC lasix due to excessive diarrhea, improved respiratory status and risk of dehydration, resume at DC - ortho consulted in setting of recent surgery at [facility] - am labs, replace lytes prn - PT/OT/CM/SW - delirium precautions: increase activity and limit nighttime disturbances - DVT prophylaxis: per ortho recs Advance Directive: Full Code Anticipated Discharge - Date - 11/17 - Location - Skilled Facility - Pending the following - placement/auth Total time spent (which include face to face and non face to face encounters) : 35 minutes Extended Emergency Contact Information Primary Emergency Contact: Hyun Purcell Mobile Relation: Daughter Justus Dm Herrera MD Division of Hospitalist Medicine [facility] [1] Past Medical History: Diagnosis Date Back pain Depression Gastritis GERD (gastroesophageal reflux disease) Hypothyroid [2] [Held by provider] furosemide, 20 mg, IntraVENous, BID gabapentin, 300 mg, Oral, BID levothyroxine, 88 mcg, Oral, q24h sertraline, 200 mg, Oral, Daily sodium chloride 0.9%, 10 mL, IntraVENous, 2 times per day [3] PRN medications: acetaminophen OR acetaminophen, albuterol, HYDROcodone - acetaminophen OR HYDROcodone - acetaminophen, hydrOXYzine HCl, naloxone, ondansetron ODT OR ondansetron, sodium chloride, sodium chloride 0.9% [4] * Lisa Noble, RD - 11/17/2024 12:14 PM EDT Nutrition Assessment Type and Reason for Visit: Reassess Nutrition Recommendations/Plan: Continue with regular diet as tolerated. Per MNT protocol will discontinue Ensure Plus HP TID. Monitor overall nutritional status. RD to follow. Malnutrition Assessment: Malnutrition Status: Moderate malnutrition Context: Acute Illness Findings of the 6 clinical characteristics of malnutrition: Energy Intake: 50% or less of estimated energy requirements for 5 or more days Weight Loss: 5% over 1 month (5% (6#) wt loss x 1 month(119# 10/27/24 -->113# 11/17/24)) Body Fat Loss: Unable to assess Muscle Mass Loss: Unable to assess Fluid Accumulation: No significant fluid accumulation (per chart) Coil Maker Strength: Not Performed Nutrition Assessment: Per chart: 84 y.o. female with history of GERD, gastritis, depression, Left nephrectomy, She is s/pL2-L5 revision and decompression done on 11/[address] Morrison. On review of documentation from [facility], patient was seen to have had an intraoperative dural tear which was repaired during surgery and complaining of intermittent headaches. She began passing flatus and had a liquid bowel movement on 11/07 and was tolerating regular diet. She was recently treated for c-diff in September with courseof PO vancomycin. Due to diarrhea, stool tested again and positive again so pt was transferred to [facility]. Upon arrival, pt hypoxic in the 80s on RA and did admit to some sob and cough. CXR with RUL infil trate. Pt was admitted, started on cefepime/azithro for pneumonia and fidaxomycin for recurrent c-diff. Labs showed initial leukocytosis of 32.6. Diarrhea and leukocytosis improved with treatment. Legionella/strep negative. Azithromycin discontinued on 11/08. Continued to have diarrhea, poor appetite and poor mobility. Nation maintained. Added nutritional supplements. Discontinued lasix due to excessive diarrhea and risk of dehydration. Respiratory status improved. No productive cough since admission so sputum labs cancelled. Echocardiogram unremarkable. She had an extended stay due to cost of Dificid with improvement in symptoms. PT/OT recommended SNF - patient reports good suppot at home and politely declined and asked for HHC. RD spoke with patient this afternoon. She repots 1 BM this am and 2 BM yesterday. She reports eating 1/2 bowel of oatmeal for breakfast. She recalls eating 1 opener tender, a couple of steak fries, 100% jello, 100% milk, and maybe a box of rice krispies yesterday. She is avoiding greasy foods. There are 6 packages of Ensure visible in her room- patient states she is drinking some of Ensure. She would like to discontinue oral nutrition supplement at this time- she anticipates discharge either today or tomorrow. RD discontinued other oral nutrition supplements available. RD assisted with lunchand dinner orders tonight. RD obtained bed scale weight of 113# this am. Estimated Daily Nutrient Needs: Energy Requirements Based On: Kcal/kg Weight Used for Energy Requirements: [place] Weight for Energy Calculation (kg): 48 kg Total Energy Requirements (kcals/day): 5600-0804 kcals per day (25-30) Weight Used for Protein Requirements: [place] Weight in Kg Used for Protein Requirements: 48 kg Estimated Total Protein (g/day): 58-67 gm per day (1.2-1.4) Estimated Daily Total Fluid (ml/day): Per MD Nutrition Related Findings: Wing = 21, GI WDL, BM on 11/17, upper dentures, no edema, I/O: -[phone] (since admit), room service selective Wound Type: Surgical Incision BMP: Recent Labs 11/15/24 0027 11/16/24 0532 11/17/24 0343 NA 143 141 140 K 3.2* 4.2 3.8 CL 103 109* 107 CO2 31 27 25 BUN 10 12 11 CREATININE 0.70 0.64 0.68 GLUCOSE 122* 103 104 CALCIUM 8.6* 8.2* 8.4* MG 1.9 -- -- HEPATIC: No results for input(s): AST, ALT, BILITOT, ALKPHOS in the last 72 hours. No lab exists for component: ALB Medications: Scheduled Meds[1] PRN Meds[2] Current Nutrition Therapies: Adult diet Regular Current Oral Intake Average Meal Intake: 1-25% Average Supplements Intake: Unable to assess Anthropometric Measures: Height: 154.9 cm (5' 0.98) Current Body Weight: 51.3 kg (113 lb) (11/17/24) Weight Source: Bed Scale Admission Body Weight: 54 kg (119 lb) (stated on 11/07/24 and 11/09/24) Usual Body Weight: (Per Epic: 119# on 02/15/24, 109# on 04/01/24, 119# stated on 04/16/24, 120# on 07/10/24, 119# stated on 07/18/24, 124# bed scale on 07/21/24, 119# on 10/27/24) [place] Body Weight (lbs) (Calculated): 105 lbs [place] Body Weight (Kg) (Calculated): 48 kg % [place] Body Weight (Calculated): 123.8 % BMI (kg/m2) (Calculated): 21.4 Weight Adjustment For: No Adjustment BMI Categories: Normal Weight (BMI 22.0 to 24.9) age over 65 Nutrition Diagnosis: In context of acute illness or injury, Moderate malnutrition related to altered taste perception (diarrhea) as evidenced by weight loss greater than or equal to 5% in 1 month, poor intake prior to admission Nutrition Interventions: Nutrition Education/Counseling: No recommendation at this time Coordination of Nutrition Care: Continue to monitor while inpatient Goals: Goals: PO intake 50% or greater, prior to discharge Nutrition Monitoring and Evaluation: Behavioral-Environmental Outcomes: None Identified Food/Nutrient Intake Outcomes: Food and Nutrient Intake, Supplement Intake, Diet Advancement/Tolerance Physical Signs/Symptoms Outcomes: Biochemical Data, Chewing or Swallowing, Diarrhea, GI Status, Fluid Status or Edema, Meal Time Behavior, Nutrition Focused Physical Findings, Skin, Weight Discharge Planning: Too soon to determine Lisa Noble RD Contact: *[phone] [1] [Held by provider] furosemide, 20 mg, IntraVENous, BID gabapentin, 300 mg, Oral, BID levothyroxine, 88 mcg, Oral, q24h sertraline, 200 mg, Oral, Daily sodium chloride 0.9%, 10 mL, IntraVENous, 2 times per day [2] PRN medications: acetaminophen OR acetaminophen, albuterol, HYDROcodone - acetaminophen OR HYDROcodone - acetaminophen, hydrOXYzine HCl, naloxone, ondansetron ODT OR ondansetron, sodium chloride, sodium chloride 0.9% * Georgia Greco MD - 11/17/2024 6:51 AM EDT Images from the original note were not included. [facility] PC[facility] [address] [address] Dept: [phone] Loc: [phone] Orthopedic Progress Note Name: Kathryn Tamez Date:11/17/2024 Attending:Justus Herrera MD Subjective Patient doing well this morning, she was sleeping comfortably in bed on arrival. Denies any paresthesias in her legs. She has no concerns this am. Preop symptoms: improving Objective Vitals: Vitals: 11/15/24 0756 11/15/24202511/16/24 0824 11/16/242025 BP: 130/53 136/64 120/56 127/54 BP Location: Right arm Left arm Patient Position: Sitting Lying Pulse: 68 70 79 74 Resp: 16 16 16 16 Temp: 36.3 C (97.4 F) 36.7 C (98 F) 36.4 C (97.6 F) 36.5 C (97.7 F) TempSrc: Temporal Temporal Temporal Temporal SpO2: 93% 94% 95% 93% Weight: Height: Spine Exam: Direct Spine Inspection: dressing CDI HF KE DF EHL PF RLE 4+ 5 5 5 5 Sensation: Intact L2-S1 with normal sensation Pulses: DP Palpable HF KE DF EHL PF LLE 4+ 4 5 5 5 Sensation: Intact L2-S1 with normal sensation Pulses: DP Palpable LABS: Recent Labs 11/15/24 0027 11/16/24 0532 11/17/24 0343 WBC 20.6* 17.7* 16.6* HGB 10.0* 9.2* 8.6* HCT 30.5* 28.9* 26.6* PLT 395 364 341 Recent Labs 11/15/24 0027 11/16/24 0532 11/17/24 0343 NA 143 141 140 K 3.2* 4.2 3.8 CL 103 109* 107 CO2 31 27 25 BUN 10 12 11 CREATININE 0.70 0.64 0.68 CALCIUM 8.6* 8.2* 8.4* No results for input(s): INR in the last 72 hours. No results for input(s): SEDRATE, CRP in the last 72 hours. No results for input(s): HCG in the last 72 hours. Assessment Kathryn is a 84 y.o.female s/p L2-L5 revision decompression with Dr. Morrison on 11/04/2024 transferred to [facility] for C. difficile colitis and right upper lobe pneumonia Plan - No additional operative intervention indicated, no further plans for surgery - Nursing communication placed for daily dressing changes (clean dressing to consist of ABDs and silk tape). Area is to be cleaned with betadine prior to placement of new dressing. Additionally recommend daily showers if possible. - Weight-bear as tolerated bilateral lower extremities - No brace indicated - No additional imaging indicated of the spine - Activity as tolerated. Okay to elevate HOB - Okay for regular diet from ortho perspective - Neurovascular checks - Skin checks - Medical management/antibiotics per medicine/infectious disease team - Ortho to follow peripherally. Georgia Greco MD * Justus Herrera MD - 11/16/2024 1:14 PM EDT Hospitalist Progress Note 11/16/2024 Subjective: Admit Date: 11/07/2024 PCP: Leonardo Lyles Room#: [id number] A BRIEF HOSPITAL COURSE: This is a 84 y.o. female s/p L2-L5 revision and decompression done on 11/[address] Morrison.On reviewof documentation from [facility], patient was seen to have had an intraoperative dural tear which was repaired during surgery and complaining of intermittent headaches. She began passing flatus and had a liquid bowel movement on 11/07 and was tolerating regular diet. She was recently treated forc-diff in September with course of PO vancomycin. Due to diarrhea, stool tested again and positive again so pt was transferred to [facility]. Upon arrival, pt hypoxic in the 80s on RA and did admit to some sob and cough. CXR with RUL infiltrate. Pt was admitted, started on cefepime/azithro for pneumonia and fi daxomycin for recurrent c-diff. Labs showed initial leukocytosis of 32.6. Diarrhea and leukocytosisimproved with treatment. Legionella/strep negative. Azithromycin discontinued on 11/08. Continued tohave diarrhea, poor appetite and poor mobility. Nation maintained. Added nutritional supplements. Discontinued lasix due to excessive diarrhea and risk of dehydration. Respiratory status improved. No productive cough since admission so sputum labs cancelled. Echocardiogram unremarkable. She had an extended stay due to cost of Dificid. Interval History: 11/16: Diarrhea improved, occult stool ordered - no results, Hb essential stable. Will complete dificid in house. She looks better today overall. 11/15: Large diarrhea this AM - black. No other complaints. All questions answered. 11/14: Diarrhea improved. She is off O2. Nation out. No acute events overnight. Will need to complete Dificid in house due to cost. 11/13: One episode of diarrhea so far today. Poor appetite. No acute events overnight. No other complaints. Will try to wean O2. 11/12: She c/o diarrhea - 4 episodes today. She c/o fatigue and not feeling well. Poor appetite. She has no other complaints. 11/11: No acute events overnight. Diarrhea overall improved, but remains. No CP or SOB. No labs today- will draw tomorrow. All questions answered. 11/10: Pt seen and examined. Still having multiple episodes of watery diarrhea today. Unable to move herself so requiring frequent cleanup by nursing. Continues to be on 4L O2 despite SpO2 documented> 95%. Turned down to 2L while in the room as pt without any respiratory complaints. K replaced today. No CBC drawn? Despite orders in place. Echo completed and unremarkable. Adult diet Regular 24HR INTAKE/OUTPUT: Intake/Output Summary (Last 24 hours) at 11/16/2024 1315 Last data filed at 11/16/2024 0511 Gross per 24 hour Intake 120 ml Output -- Net 120 ml Past Medical History: Medical History[1] LABS: CBC: Recent Labs 11/14/24 0541 11/15/24 0027 11/16/24 0532 WBC 17.8* 20.6* 17.7* RBC 3.34* 3.61* 3.36* HGB 9.3* 10.0* 9.2* HCT 28.0* 30.5* 28.9* MCV 83.8 84.5 86.0 RDW 15.9* 15.9* 16.2* PLT 334 395 364 BMP: Recent Labs 11/14/24 0541 11/15/24 0027 11/16/24 0532 NA 140 143 141 K 2.9* 3.2* 4.2 CL 101 103 109* CO2 34* 31 27 BUN 9 10 12 CREATININE 0.66 0.70 0.64 GLUCOSE 95 122* 103 CALCIUM 8.1* 8.6* 8.2* ANIONGAP 5 9 5 LIVER PROFILE:No results for input(s): AST, ALT, BILITOT, ALKPHOS, PROT in the last 72 hours. No lab exists for component: LABALBU PT/INR: No results for input(s): PROTIME, INR in the last 72 hours. CARDIAC ENZYMES: No results for input(s): TROPONINI in the last 72 hours. Procalcitonin: No results found for: PROCAL COVID-19 PCR: No results for input(s): COVID19 in the last 72 hours. Objective: Vitals: BP 120/56 (BP Location: Left arm, Patient Position: Lying) Pulse 79 Temp 36.4 C (97.6 F) (Temporal) Resp 16 Ht 5' 0.98 (1.549 m) Wt 119 lb (54 kg) LMP (LMP Unknown) SpO2 95% BMI 22.50 kg/m Pulse Ox: SpO2 Av.5 % Min: 94 % Max: 95 % Supplemental O2: O2 Flow Rate (L/min): 2 L/min GENERAL: Lying in bed comfortably, awake and alert HEENT: normocephalic, non-traumatic, MMM NECK: supple, trachea midline HEART: RRR, normal S1 and S2 LUNGS: non labored, no crackles, no wheeze ABD: soft, non-tender MSK: no edema noted SKIN: warm, dry PSYCH: appropriate affect Medications: Scheduled PRN Scheduled Meds[2] PRN Meds[3] Continuous Continuous Meds[4] Assessment Data: Acute, acute on chronic, unstable/uncontrolled chronic problems/diagnoses: 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 Now on zosyn and improved Hypokalemia Stable chronic problems affecting care, new non-acute diagnoses: Hypothryoid Depression GERD Plan As a result of the above findings & factors, the following mgmt was pursued: - cont meds as ordered - discontinued azithro as legionella negative. Viral PCR negative. Discontinued sputum culture/pneumonia panel as no sputum production. Changed cefepime to zosyn on 11/08 due to mild confusion and nowimproved. Zosyn to end 11/14 per ID stewardship. - cont fidaxomycin x 10 day course - wean O2 as as tolerated as SpO2>95% - DC lasix due to excessive diarrhea, improved respiratory status and risk of dehydration, follow when can resume - check occult for dark stool - ortho consulted in setting of recent surgery at [facility] - am labs, replace lytes prn - PT/OT/CM/SW - delirium precautions: increase activity and limit nighttime disturbances - DVT prophylaxis: per ortho recs Advance Directive: Full Code Anticipated Discharge - Date - after completion of dificit - Location - Skilled Facility - Pending the following - placement/auth Total time spent (which include face to face and non face to face encounters) : 40 minutes Extended Emergency Contact Information Primary Emergency Contact: Hyun Purcell Mobile Relation: Daughter Justus Dm Herrera MD Division of Hospitalist Medicine [facility] [employer] [1] Past Medical History: Diagnosis Date Back pain Depression Gastritis GERD (gastroesophageal reflux disease) Hypothyroid [2] fidaxomicin, 200 mg, Oral, BID [Held by provider] furosemide, 20 mg, IntraVENous, BID gabapentin, 300 mg, Oral, BID levothyroxine, 88 mcg, Oral, q24h sertraline, 200 mg, Oral, Daily sodium chloride 0.9%, 10 mL, IntraVENous, 2 times per day [3] PRN medications: acetaminophen OR acetaminophen, albuterol, HYDROcodone - acetaminophen OR HYDROcodone - acetaminophen, hydrOXYzine HCl, naloxone, ondansetron ODT OR ondansetron, sodium chloride, sodium chloride 0.9% [4] * Tracie Quinn PTA - 11/16/2024 9:42 AM EDT Images from the original note were not included. PHYSICAL THERAPY [facility] Treatment Note Name/MRN: Kathryn Tamez ([id number]) Date of : 1940 Age: 84 y.o. Room/Bed: -6123/[facility] A Discharge Recommendation: Alf Facility Equipment Needed: No Prior Level of Function Prior Level of ADL Function: Independent Prior Level of Mobility: Independent; Device: None Prior Level of Transfers: Independent Assessment Patient is progressing well towards goals, good effort during session. Performs bed mobility with SBA and transfers with min assist. Ambulates short distances in room with FWW and min assist, most limited by weakness and decreased endurance. General instability with ambulation and balance tasks. Recommend SNF level therapies at discharge. Subjective Supine upon arrival, agreeable to PT. Pain: 0-10 pain scale: 8/10 Location: back Medical Precautions: Enhanced Contact Proper PPE donned/doffed in accordance with facility standards. Fall Risk: Reese Fall Risk Score: 35 (Medium Risk) Precautions/Restrictions: Spine Precautions: No Bending, No Lifting, No Twisting Lines/Drains/Airways: PIV, nation Fall Precautions Overall Cognitive Status: WFL Overall Orientation Status: Oriented x4 Family/Caregiver Present: none Objective Bed Mobility Supine to sit: SBA Sit to supine: SBA Scooting: SBA HOB elevated, use of bed rail, cues to maintain spinal precautions. Transfers/Mobility Sit to stand: Min Assist Stand to sit: Min Assist Toilet: Min Assist Cues for UE placement, good weight shifting and eccentric control noted. Device(s) used: Front wheeled walker Ambulation Ambulation 1 Assistive device(s) used: Front wheeled walker Assist level: Min Assist Distance (ft): 40ft, 15ft x 2 Quality of gait: reciprocal stepping, uneven step length, narrow KOURTNEY, slow renetta, postural sway. General instability, fatigues quickly. Requires frequent seated rest breaks. Balance During Session: Posture: fair Sitting - Static: Supervision Sitting - Dynamic: SBA Standing - Static: Contact Guard, Min Assist Standing - Dynamic: Min Assist, Mod Assist Standing balance tasks with intermittent UE support; able to perform pericare independently, requires min assist for balance. Able to reach outside KOURTNEY for balance tasks without LOB. Standing tolerance for ~2-3 min periods Exercises Exercises Hip Flexion: BLE AROM x 10 reps Hip Abduction: BLE AROM x 10 reps Knee Long Arc Quad: BLE AROM x 10 reps Ankle Pumps: BLE AROM x 10 reps Plan Continue acute PT per plan of care. Safety/Education Safety Safety Devices in place: All fall risk precautions in place, call light within reach, and left in bed Restraints: No Education Gait, transfers, exercises, balance Outcome Measures AM-PAC AM-PAC Inpatient Mobility Raw Score (No Stairs) : 17 JH-HLM JH-HLM Score: Walked 25 ft or more (i.e. walked outside of room) Goals Patient Stated Goal: to feel better Encounter Problems Encounter Problems (Active) Mobility Patient will ambulate 50 feet with supervision and least restrictive device in order to improve safety and independence with mobility. (Progressing) Start: 11/08/24 Expected End: 12/06/24 Patient will ascend and descend 2 stairs with least restrictive device and supervision in order to safely negotiate home. (Not Addressed) Start: 11/08/24 Expected End: 12/06/24 Transfers Patient will perform bed mobility with supervision in order to improve independence and prepare forout of bed mobility. (Progressing) Start: 11/08/24 Expected End: 12/06/24 Patient will complete functional transfer with least restrictive device with supervision in order to prepare for ambulation. (Progressing) Start: 11/08/24 Expected End: 12/06/24 Therapy Time Individual Co-treatment Time In 912 Time Out 0939 Minutes 26 Timed Code Treatment Minutes: 26 Minutes (Gait, FA) Tracie Quinn PTA Cosigned by Alonso Mijares, PT at 11/16/2024 3:37 PM EDT * Justus Herrera MD - 11/15/2024 1:48 PM EDT Hospitalist Progress Note 11/15/2024 Subjective: Admit Date: 11/07/2024 PCP: Leonardo Lyles Room#: [id number] A BRIEF HOSPITAL COURSE: This is a 84 y.o. female s/p L2-L5 revision and decompression done on 11/[address] Morrison.On reviewof documentation from [facility], patient was seen to have had an intraoperative dural tear which was repaired during surgery and complaining of intermittent headaches. She began passing flatus and had a liquid bowel movement on 11/07 and was tolerating regular diet. She was recently treated forc-diff in September with course of PO vancomycin. Due to diarrhea, stool tested again and positive again so pt was transferred to [facility]. Upon arrival, pt hypoxic in the 80s on RA and did admit to some sob and cough. CXR with RUL infiltrate. Pt was admitted, started on cefepime/azithro for pneumonia and fi daxomycin for recurrent c-diff. Labs showed initial leukocytosis of 32.6. Diarrhea and leukocytosisimproved with treatment. Legionella/strep negative. Azithromycin discontinued on 11/08. Continued tohave diarrhea, poor appetite and poor mobility. Nation maintained. Added nutritional supplements. Discontinued lasix due to excessive diarrhea and risk of dehydration. Respiratory status improved. No productive cough since admission so sputum labs cancelled. Echocardiogram unremarkable. She had an extended stay due to cost of Dificid. Interval History: 11/15: Large diarrhea this AM - black. No other complaints. All questions answered. 11/14: Diarrhea improved. She is off O2. Nation out. No acute events overnight. Will need to complete Dificid in house due to cost. 11/13: One episode of diarrhea so far today. Poor appetite. No acute events overnight. No other complaints. Will try to wean O2. 11/12: She c/o diarrhea - 4 episodes today. She c/o fatigue and not feeling well. Poor appetite. She has no other complaints. 11/11: No acute events overnight. Diarrhea overall improved, but remains. No CP or SOB. No labs today- will draw tomorrow. All questions answered. 11/10: Pt seen and examined. Still having multiple episodes of watery diarrhea today. Unable to move herself so requiring frequent cleanup by nursing. Continues to be on 4L O2 despite SpO2 documented> 95%. Turned down to 2L while in the room as pt without any respiratory complaints. K replaced today. No CBC drawn? Despite orders in place. Echo completed and unremarkable. Adult diet Regular 24HR INTAKE/OUTPUT: No intake or output data in the 24 hours ending 11/15/24 1348 Past Medical History: Medical History[1] LABS: CBC: Recent Labs 11/13/24 0825 11/14/24 0541 11/15/24 0027 WBC 20.2* 17.8* 20.6* RBC 3.31* 3.34* 3.61* HGB 9.2* 9.3* 10.0* HCT 27.7* 28.0* 30.5* MCV 83.7 83.8 84.5 RDW 15.8* 15.9* 15.9* PLT 312 334 395 BMP: Recent Labs 11/13/24 0825 11/14/24 0541 11/15/24 0027 NA 141 140 143 K 3.2* 2.9* 3.2* CL 104 101 103 CO2 32* 34* 31 BUN 11 9 10 CREATININE 0.61 0.66 0.70 GLUCOSE 97 95 122* CALCIUM 7.9* 8.1* 8.6* ANIONGAP 5 5 9 LIVER PROFILE:No results for input(s): AST, ALT, BILITOT, ALKPHOS, PROT in the last 72 hours. No lab exists for component: LABALBU PT/INR: No results for input(s): PROTIME, INR in the last 72 hours. CARDIAC ENZYMES: No results for input(s): TROPONINI in the last 72 hours. Procalcitonin: No results found for: PROCAL COVID-19 PCR: No results for input(s): COVID19 in the last 72 hours. Objective: Vitals: BP 130/53 (BP Location: Right arm, Patient Position: Sitting) Pulse 68 Temp 36.3 C (97.4 F) (Temporal) Resp 16 Ht 5' 0.98 (1.549 m) Wt 119 lb (54 kg) LMP (LMP Unknown) SpO2 93% BMI 22.50 kg/m Pulse Ox: SpO2 Av.5 % Min: 92 % Max: 93 % Supplemental O2: O2 Flow Rate (L/min): 2 L/min GENERAL: Lying in bed comfortably, awake and alert HEENT: normocephalic, non-traumatic, MMM NECK: supple, trachea midline HEART: RRR, normal S1 and S2 LUNGS: non labored, no crackles, no wheeze ABD: soft, non-tender MSK: no edema noted SKIN: warm, dry PSYCH: appropriate affect Medications: Scheduled PRN Scheduled Meds[2] PRN Meds[3] Continuous Continuous Meds[4] Assessment Data: Acute, acute on chronic, unstable/uncontrolled chronic problems/diagnoses: 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 Now on zosyn and improved Hypokalemia Stable chronic problems affecting care, new non-acute diagnoses: Hypothryoid Depression GERD Plan As a result of the above findings & factors, the following mgmt was pursued: - cont meds as ordered - discontinued azithro as legionella negative. Viral PCR negative. Discontinued sputum culture/pneumonia panel as no sputum production. Changed cefepime to zosyn on 11/08 due to mild confusion and nowimproved. Zosyn to end 11/14 per ID stewardship. - cont fidaxomycin x 10 day course - wean O2 as as tolerated as SpO2>95% - DC lasix due to excessive diarrhea, improved respiratory status and risk of dehydration, follow when can resume - check occult for dark stool - ortho consulted in setting of recent surgery at [facility] - am labs, replace lytes prn - PT/OT/CM/SW - delirium precautions: increase activity and limit nighttime disturbances - DVT prophylaxis: per ortho recs Advance Directive: Full Code Anticipated Discharge - Date - after completion of dificit - Location - Skilled Facility - Pending the following - placement/auth Total time spent (which include face to face and non face to face encounters) : 40 minutes Extended Emergency Contact Information Primary Emergency Contact: Hyun Purcell Mobile Relation: Daughter Justus Chaidez MD [place] Division of Hospitalist Medicine Acute [facility] [1] Past Medical History: Diagnosis Date Back pain Depression Gastritis GERD (gastroesophageal reflux disease) Hypothyroid [2] fidaxomicin, 200 mg, Oral, BID [Held by provider] furosemide, 20 mg, IntraVENous, BID gabapentin, 300 mg, Oral, BID levothyroxine, 88 mcg, Oral, q24h sertraline, 200 mg, Oral, Daily sodium chloride 0.9%, 10 mL, IntraVENous, 2 times per day [3] PRN medications: acetaminophen OR acetaminophen, albuterol, HYDROcodone - acetaminophen OR HYDROcodone - acetaminophen, hydrOXYzine HCl, naloxone, ondansetron ODT OR ondansetron, sodium chloride, sodium chloride 0.9% [4] * Justus Herrera MD - 11/14/2024 1:43 PM EDT Hospitalist Progress Note 11/14/2024 Subjective: Admit Date: 11/07/2024 PCP: Leonardo Lyles Room#: [id number] A BRIEF HOSPITAL COURSE: This is a 84 y.o. female s/p L2-L5 revision and decompression done on 11/[address] Morrison.On reviewof documentation from [facility], patient was seen to have had an intraoperative dural tear which was repaired during surgery and complaining of intermittent headaches. She began passing flatus and had a liquid bowel movement on 11/07 and was tolerating regular diet. She was recently treated forc-diff in September with course of PO vancomycin. Due to diarrhea, stool tested again and positive again so pt was transferred to [facility]. Upon arrival, pt hypoxic in the 80s on RA and did admit to some sob and cough. CXR with RUL infiltrate. Pt was admitted, started on cefepime/azithro for pneumonia and fi daxomycin for recurrent c-diff. Labs showed initial leukocytosis of 32.6. Diarrhea and leukocytosisimproved with treatment. Legionella/strep negative. Azithromycin discontinued on 11/08. Continued tohave diarrhea, poor appetite and poor mobility. Nation maintained. Added nutritional supplements. Discontinued lasix due to excessive diarrhea and risk of dehydration. Respiratory status improved. No productive cough since admission so sputum labs cancelled. Echocardiogram unremarkable. Interval History: 11/14: Diarrhea improved. She is off O2. Nation out. No acute events overnight. Will need to complete Dificid in house due to cost. 11/13: One episode of diarrhea so far today. Poor appetite. No acute events overnight. No other complaints. Will try to wean O2. 11/12: She c/o diarrhea - 4 episodes today. She c/o fatigue and not feeling well. Poor appetite. She has no other complaints. 11/11: No acute events overnight. Diarrhea overall improved, but remains. No CP or SOB. No labs today- will draw tomorrow. All questions answered. 11/10: Pt seen and examined. Still having multiple episodes of watery diarrhea today. Unable to move herself so requiring frequent cleanup by nursing. Continues to be on 4L O2 despite SpO2 documented> 95%. Turned down to 2L while in the room as pt without any respiratory complaints. K replaced today. No CBC drawn? Despite orders in place. Echo completed and unremarkable. Adult diet Regular 24HR INTAKE/OUTPUT: No intake or output data in the 24 hours ending 11/14/24 1343 Past Medical History: Medical History[1] LABS: CBC: Recent Labs 11/12/24 0319 11/13/24 0825 11/14/24 0541 WBC 21.2* 20.2* 17.8* RBC 3.10* 3.31* 3.34* HGB 8.6* 9.2* 9.3* HCT 26.0* 27.7* 28.0* MCV 83.9 83.7 83.8 RDW 15.9* 15.8* 15.9* PLT 277 312 334 BMP: Recent Labs 11/12/24 0319 11/13/24 0825 11/14/24 0541 NA 145 141 140 K 3.6 3.2* 2.9* CL 110* 104 101 CO2 26 32* 34* BUN 15 11 9 CREATININE 0.62 0.61 0.66 GLUCOSE 100 97 95 CALCIUM 7.9* 7.9* 8.1* ANIONGAP 9 5 5 LIVER PROFILE:No results for input(s): AST, ALT, BILITOT, ALKPHOS, PROT in the last 72 hours. No lab exists for component: LABALBU PT/INR: No results for input(s): PROTIME, INR in the last 72 hours. CARDIAC ENZYMES: No results for input(s): TROPONINI in the last 72 hours. Procalcitonin: No results found for: PROCAL COVID-19 PCR: No results for input(s): COVID19 in the last 72 hours. Objective: Vitals: BP 141/65 (BP Location: Right arm, Patient Position: Sitting) Pulse 71 Temp 36.2 C (97.2 F) (Temporal) Resp 16 Ht 5' 0.98 (1.549 m) Wt 119 lb (54 kg) LMP (LMP Unknown) SpO2 93% BMI 22.50 kg/m Pulse Ox: SpO2 Av.3 % Min: 93 % Max: 97 % Supplemental O2: O2 Flow Rate (L/min): 2 L/min GENERAL: Lying in bed comfortably, awake and alert HEENT: normocephalic, non-traumatic, MMM NECK: supple, trachea midline HEART: RRR, normal S1 and S2 LUNGS: non labored, no crackles, no wheeze ABD: soft, non-tender MSK: no edema noted SKIN: warm, dry PSYCH: appropriate affect Medications: Scheduled PRN Scheduled Meds[2] PRN Meds[3] Continuous Continuous Meds[4] Assessment Data: Acute, acute on chronic, unstable/uncontrolled chronic problems/diagnoses: 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 Now on zosyn and improved Hypokalemia Stable chronic problems affecting care, new non-acute diagnoses: Hypothryoid Depression GERD Plan As a result of the above findings & factors, the following mgmt was pursued: - cont meds as ordered - discontinued azithro as legionella negative. Viral PCR negative. Discontinued sputum culture/pneumonia panel as no sputum production. Changed cefepime to zosyn on 11/08 due to mild confusion and nowimproved. Zosyn to end 11/14 per ID stewardship. - cont fidaxomycin x 10 day course - wean O2 as as tolerated as SpO2>95% - DC lasix due to excessive diarrhea, improved respiratory status and risk of dehydration - ortho consulted in setting of recent surgery at [facility] - am labs, replace lytes prn - PT/OT/CM/SW - delirium precautions: increase activity and limit nighttime disturbances - DVT prophylaxis: per ortho recs Advance Directive: Full Code Anticipated Discharge - Date - after completion of dificit - Location - Skilled Facility - Pending the following - placement/auth Total time spent (which include face to face and non face to face encounters) : 45 minutes Extended Emergency Contact Information Primary Emergency Contact: Hyun Purcell Mobile Relation: Daughter Justus Dm Herrera MD Division of Hospitalist Medicine [facility] [1] Past Medical History: Diagnosis Date Back pain Depression Gastritis GERD (gastroesophageal reflux disease) Hypothyroid [2] fidaxomicin, 200 mg, Oral, BID [Held by provider] furosemide, 20 mg, IntraVENous, BID gabapentin, 300 mg, Oral, BID levothyroxine, 88 mcg, Oral, q24h piperacillin-tazobactam, 4,500 mg, IntraVENous, q6h sertraline, 200 mg, Oral, Daily sodium chloride 0.9%, 10 mL, IntraVENous, 2 times per day [3] PRN medications: acetaminophen OR acetaminophen, albuterol, HYDROcodone - acetaminophen OR HYDROcodone - acetaminophen, hydrOXYzine HCl, naloxone, ondansetron ODT OR ondansetron, sodium chloride, sodium chloride 0.9% [4] * Alonso Roman MD - 11/14/2024 6:15 AM EDT Images from the original note were not included. [facility] [address] [address] Dept: [phone] Loc: [phone] Orthopedic Progress Note Name: Kathryn Tamez Date:11/14/2024 Attending:Justus Herrera MD Subjective No events o/n. State her pain is under control. Feels that she is making some improvement with her bowel movements. Denies any paresthesias in her legs, or any new weakness. She has no concerns this am, all questions answered. Preop symptoms: improving Objective Vitals: Vitals: 11/13/24 0500 11/13/24 0805 11/13/24 1231 11/13/24 2040 BP: 121/60 135/69 131/63 132/57 BP Location: Left arm Right arm Right arm Right arm Patient Position: Lying Sitting Sitting Sitting Pulse: 67 68 68 66 Resp: 12 20 16 Temp: 36.1 C (97 F) 36.1 C (96.9 F) 36.1 C (97 F) TempSrc: Temporal Temporal Temporal SpO2: 96% 96% 99% 96% Weight: Height: Spine Exam: Direct Spine Inspection: dressing CDI HF KE DF EHL PF RLE 4 5 5 5 5 Sensation: Intact L2-S1 with normal sensation Pulses: DP Palpable HF KE DF EHL PF LLE 4 4 5 5 5 Sensation: Intact L2-S1 with normal sensation Pulses: DP Palpable LABS: Recent Labs 11/12/2431811/13/24 0825 11/14/24 0541 WBC 21.2* 20.2* 17.8* HGB 8.6* 9.2* 9.3* HCT 26.0* 27.7* 28.0* PLT 277 312 334 Recent Labs 11/12/2431811/13/24 0825 NA 145 141 K 3.6 3.2* CL 110* 104 CO2 26 32* BUN 15 11 CREATININE 0.62 0.61 CALCIUM 7.9* 7.9* No results for input(s): INR in the last 72 hours. No results for input(s): SEDRATE, CRP in the last 72 hours. No results for input(s): HCG in the last 72 hours. Assessment Kathryn is a 84 y.o.female s/p L2-L5 revision decompression with Dr. Morrison on 11/04/2024 transferred to [facility] for C. difficile colitis and right upper lobe pneumonia Plan - No additional operative intervention indicated, no further plans for surgery -If dressing comes saturated okay to replace with ABDs and silk tape, will change at DC - Weight-bear as tolerated bilateral lower extremities - No brace indicated - No additional imaging indicated of the spine -Activity as tolerated. Okay to elevate HOB - Okay for regular diet from ortho perspective -Neurovascular checks -Skin checks - Medical management/antibiotics per medicine/infectious disease team - Currently has a Nation catheter in place. Okay to remove from an orthopedic surgery standpoint. Pneumonia and C. difficile colitis per medicine - Ortho to follow Alonso Roman MD * Justus Herrera MD - 11/13/2024 1:53 PM EDT Hospitalist Progress Note 11/13/2024 Subjective: Admit Date: 11/07/2024 PCP: Leonardo Lyles Room#: [id number] A BRIEF HOSPITAL COURSE: This is a 84 y.o. female s/p L2-L5 revision and decompression done on 11/[address] Morrison.On reviewof documentation from [facility], patient was seen to have had an intraoperative dural tear which was repaired during surgery and complaining of intermittent headaches. She began passing flatus and had a liquid bowel movement on 11/07 and was tolerating regular diet. She was recently treated forc-diff in September with course of PO vancomycin. Due to diarrhea, stool tested again and positive again so pt was transferred to [facility]. Upon arrival, pt hypoxic in the 80s on RA and did admit to some sob and cough. CXR with RUL infiltrate. Pt was admitted, started on cefepime/azithro for pneumonia and fi daxomycin for recurrent c-diff. Labs showed initial leukocytosis of 32.6. Diarrhea and leukocytosisimproved with treatment. Legionella/strep negative. Azithromycin discontinued on 11/08. Continued tohave diarrhea, poor appetite and poor mobility. Nation maintained. Added nutritional supplements. Discontinued lasix due to excessive diarrhea and risk of dehydration. Respiratory status improved. No productive cough since admission so sputum labs cancelled. Echocardiogram unremarkable. Interval History: 11/13: One episode of diarrhea so far today. Poor appetite. No acute events overnight. No other complaints. Will try to wean O2. 11/12: She c/o diarrhea - 4 episodes today. She c/o fatigue and not feeling well. Poor appetite. She has no other complaints. 11/11: No acute events overnight. Diarrhea overall improved, but remains. No CP or SOB. No labs today- will draw tomorrow. All questions answered. 11/10: Pt seen and examined. Still having multiple episodes of watery diarrhea today. Unable to move herself so requiring frequent cleanup by nursing. Continues to be on 4L O2 despite SpO2 documented> 95%. Turned down to 2L while in the room as pt without any respiratory complaints. K replaced today. No CBC drawn? Despite orders in place. Echo completed and unremarkable. Adult diet Regular 24HR INTAKE/OUTPUT: Intake/Output Summary (Last 24 hours) at 11/13/2024 1353 Last data filed at 11/13/2024 0604 Gross per 24 hour Intake 120 ml Output 775 ml Net -655 ml Past Medical History: Medical History[1] LABS: CBC: Recent Labs 11/12/24 03111/13/24 0825 WBC 21.2* 20.2* RBC 3.10* 3.31* HGB 8.6* 9.2* HCT 26.0* 27.7* MCV 83.9 83.7 RDW 15.9* 15.8* PLT 277 312 BMP: Recent Labs 11/12/2431811/13/24 0825 NA 145 141 K 3.6 3.2* CL 110* 104 CO2 26 32* BUN 15 11 CREATININE 0.62 0.61 GLUCOSE 100 97 CALCIUM 7.9* 7.9* ANIONGAP 9 5 LIVER PROFILE:No results for input(s): AST, ALT, BILITOT, ALKPHOS, PROT in the last 72 hours. No lab exists for component: LABALBU PT/INR: No results for input(s): PROTIME, INR in the last 72 hours. CARDIAC ENZYMES: No results for input(s): TROPONINI in the last 72 hours. Procalcitonin: No results found for: PROCAL COVID-19 PCR: No results for input(s): COVID19 in the last 72 hours. Objective: Vitals: BP 131/63 (BP Location: Right arm, Patient Position: Sitting) Pulse 68 Temp 36.1 C (96.9 F) (Temporal) Resp 16 Ht 5' 0.98 (1.549 m) Wt 119 lb (54 kg) LMP (LMP Unknown) SpO2 99% BMI 22.50 kg/m Pulse Ox: SpO2 Av.7 % Min: 96 % Max: 99 % Supplemental O2: O2 Flow Rate (L/min): 2 L/min GENERAL: Lying in bed comfortably, awake and alert HEENT: normocephalic, non-traumatic, MMM NECK: supple, trachea midline HEART: RRR, normal S1 and S2 LUNGS: non labored, no crackles, no wheeze ABD: soft, non-tender MSK: no edema noted SKIN: warm, dry PSYCH: appropriate affect Medications: Scheduled PRN Scheduled Meds[2] PRN Meds[3] Continuous Continuous Meds[4] Assessment Data: Acute, acute on chronic, unstable/uncontrolled chronic problems/diagnoses: 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 Now on zosyn and improved Hypokalemia Stable chronic problems affecting care, new non-acute diagnoses: Hypothryoid Depression GERD Plan As a result of the above findings & factors, the following mgmt was pursued: - cont meds as ordered - discontinued azithro as legionella negative. Viral PCR negative. Discontinued sputum culture/pneumonia panel as no sputum production. Changed cefepime to zosyn on 11/08 due to mild confusion and nowimproved. Zosyn to end 11/14 per ID stewardship. - cont fidaxomycin x 10 day course - wean O2 as as tolerated as SpO2>95% - DC lasix due to excessive diarrhea, improved respiratory status and risk of dehydration - ortho consulted in setting of recent surgery at [facility] - am labs, replace lytes prn - PT/OT/CM/SW - delirium precautions: increase activity and limit nighttime disturbances - DVT prophylaxis: per ortho recs Advance Directive: Full Code Anticipated Discharge - Date - 2-3 days - Location - Skilled Facility - Pending the following - placement/auth, wean O2, improved diarrhea, nation Total time spent (which include face to face and non face to face encounters) : 45 minutes Extended Emergency Contact Information Primary Emergency Contact: Hyun Purcell Mobile Relation: Daughter Justus Herrera MD Division of Hospitalist Medicine Acute care [facility] [1] Past Medical History: Diagnosis Date Back pain Depression Gastritis GERD (gastroesophageal reflux disease) Hypothyroid [2] fidaxomicin, 200 mg, Oral, BID [Held by provider] furosemide, 20 mg, IntraVENous, BID gabapentin, 300 mg, Oral, BID levothyroxine, 88 mcg, Oral, q24h piperacillin-tazobactam, 4,500 mg, IntraVENous, q6h sertraline, 200 mg, Oral, Daily sodium chloride 0.9%, 10 mL, IntraVENous, 2 times per day [3] PRN medications: acetaminophen OR acetaminophen, albuterol, HYDROcodone - acetaminophen OR HYDROcodone - acetaminophen, hydrOXYzine HCl, naloxone, ondansetron ODT OR ondansetron, sodium chloride, sodium chloride 0.9% [4] * Lin Rios, LEGISLATIVE ANALYST - 11/13/2024 1:27 PM EDT Images from the original note were not included. PHYSICAL THERAPY [facility] Treatment Note Name/MRN: Kathryn Tamez ([id number]) Date of : 1940 Age: 84 y.o. Room/Bed: H-6123/H-6123 A Discharge Recommendation: Alf Facility Equipment Needed: No Prior Level of Function Prior Level of ADL Function: Independent Prior Level of Mobility: Independent; Device: None Prior Level of Transfers: Independent Assessment Pt presents with the listed deficits and decreased functional mobility. Tolerated session well. BedMobility demo'd Khal[place] with use of bed features. Transfers demo'd [place]. Ambulation demo'd with use ofFWW at [place] for lateral steps to HOB and minimal forward steps. CGA/SBA required for sitting balance. [place] required for standing balance. Pt limited by weakness, fatigue and pain. Reviewed Spinal Precautions. Required cues for recall and to maintain Spinal Precautions. Increased time required to complete tasks. PT goals progressing. Pt would benefit from continued skilled PT. Recommend SNF at discharge. Subjective Pt supine. Agreeable to therapy. RN cleared for PT. Pain: Lopez- Pain Ratin = Hurts even more Pain Location: back Medical Precautions: Enhanced Contact Proper PPE donned/doffed in accordance with facility standards. Fall Risk: Reese Fall Risk Score: 35 (Medium Risk) Precautions/Restrictions: Spine Precautions: No Bending, No Lifting, No Twisting Lines/Drains/Airways: PIV, nation Fall Precautions Overall Cognitive Status: WFL Overall Orientation Status: Oriented to Place, Oriented to Situation, and Oriented to Person Family/Caregiver Present: child(nandini) Objective Bed Mobility Supine to sit: Min Assist Sit to supine: Min Assist Scooting: Min Assist Increased time and effort required to complete. HOB elevated 30 degrees with use of bed rails. [place] maintain Spinal Precautions. Cues for log roll sequencing required. Required physical assist with trunk elevation and LE management back to supine. Denies dizziness. Rest break required once sitting EOB. Transfers/Mobility Sit to stand: Min Assist Stand to sit: Min Assist X 3 from EOB. Cues for anterior wt shift and use of momentum. Cues for proper hand and foot placement. Cues to reach for safety awareness and maintain eccentric control when returning to seated surface. Cues for upright posture. No overt LOB. General unsteadiness. Denies dizziness. Device(s) used: Front wheeled walker Ambulation Ambulation 1 Assistive device(s) used: Front wheeled walker Assist level: Min Assist Distance (ft): 3 steps forward and back Quality of gait: B foot clearance, shuffling, narrow KOURTNEY, slow renetta, postural sway, instability through all phases Cues for FWW management and safety. Cues obstacle negotiation. Pt able to maintain KOURTNEY within FWW. Cues to maintain close proximity to FWW. Cues for continuous reciprocal gait with increased step height and length to normalize gait pattern. Cues for management and safety when turning with use of FWW. Cues for upright posture with some carryover. Denies dizziness and increase in pain. No overt LOB. General instability/unsteadiness. Ambulation 2 Assistive device(s) used: Front wheeled walker Assist level: Min Assist Distance (ft): 4 steps laterally to HOB Quality of gait: step to pattern, B foot clearance, shuffling, narrow KOURTNEY, slow renetta, postural sway, instability through all phases FWW management cues and assist Balance During Session: Posture: fair Sitting - Static: SBA, Contact Guard Sitting - Dynamic: SBA, Contact Guard Standing - Static: Min Assist Standing - Dynamic: Min Assist Exercises Exercises Quad Sets: BLE AROM x 10 reps Heelslides: BLE AAROM x 10 reps Gluteal Sets: BLE AROM x 10 reps Hip Flexion: BLE AROM x 10 reps Hip Abduction: BLE AROM x 10 reps Knee Long Arc Quad: BLE AROM x 10 reps Knee Short Arc Quad: BLE AROM x 10 reps Ankle Pumps: BLE AROM x 10 reps Comments: .Educated on LE Therapeutic Exercise to improve muscle strength and therefore improve ease with functional transfers. Instruction for proper technique and alignment. Cues for appropriate pace and focus on eccentric control. Rest breaks provided due to fatigue and pain. Educated on benefits of performing exercise throughout the day. Recommend 2-3 sets of 5-10 reps, 2x daily. Plan Continue acute PT per plan of care. Safety/Education Safety Safety Devices in place: All fall risk precautions in place, call light within reach, left in bed, gait belt, patient at risk for falls, and nurse notified Restraints: No Education Education Given To: patient Education Provided: PT Role, PT Goals, Gait Training, Plan of Care, Home Exercise Program, Precautions, Transfer Training, Energy Conservation, Equipment, Fall Prevention Education, Discharge Recommendations, Benefits of Increasing Activity, and Breathing Techniques Education Method: Verbal, Demonstration, and Teach Back Barriers to Learning: None Education Outcome: Verbalized Understanding, Demonstrated Understanding, and Continued Education Needed Outcome Measures AM-PAC AM-PAC Inpatient Mobility Raw Score (No Stairs) : 15 JH-HLM -HLM Score: Static standing (1 or more minutes) Goals Patient Stated Goal: to feel better Encounter Problems Encounter Problems (Active) Mobility Patient will ambulate 50 feet with supervision and least restrictive device in order to improve safety and independence with mobility. (Progressing) Start: 11/08/24 Expected End: 12/06/24 Patient will ascend and descend 2 stairs with least restrictive device and supervision in order to safely negotiate home. (Not Addressed) Start: 11/08/24 Expected End: 12/06/24 Transfers Patient will perform bed mobility with supervision in order to improve independence and prepare forout of bed mobility. (Progressing) Start: 11/08/24 Expected End: 12/06/24 Patient will complete functional transfer with least restrictive device with supervision in order to prepare for ambulation. (Progressing) Start: 11/08/24 Expected End: 12/06/24 Therapy Time Individual Co-treatment Time In 1218 Time Out 1244 Minutes 26 Timed Code Treatment Minutes: 26 Minutes (FA, TP) LEGISLATIVE ANALYST wore PPE in compliance with hospital guidelines and regulation when treating this patient. Lin Rios PTA Cosigned by [place] PT at 11/13/2024 3:19 PM EDT * Edwardo Santana MD - 11/13/2024 6:25 AM EDT Images from the original note were not included. [facility] PCU [address] [address] Dept: [phone] Loc: [phone] Orthopedic Progress Note Name: Kathryn Tamez Date:11/13/2024 Attending:Justus Herrera MD Subjective No events o/n. Patient doing okay, feels that she is improving with regards to mobility and bowel movements. Denies any paresthesias in her legs. She has no concerns this am. Preop symptoms: improving Objective Vitals: Vitals: 11/12/24 1741 11/12/24 2034 11/12/24 2335 11/13/24 0500 BP: 129/67 121/64 124/65 121/60 BP Location: Right arm Left arm Left arm Left arm Patient Position: Sitting Lying Lying Lying Pulse: 72 65 67 67 Resp: 16 12 12 12 Temp: 36.2 C (97.1 F) 36.2 C (97.2 F) 36.1 C (97 F) 36.1 C (97 F) TempSrc: Temporal Temporal Temporal Temporal SpO2: 96% 97% 96% 96% Weight: Height: Spine Exam: Direct Spine Inspection: dressing CDI HF KE DF EHL PF RLE 4 5 5 5 5 Sensation: Intact L2-S1 with normal sensation Pulses: DP Palpable HF KE DF EHL PF LLE 4 4 5 5 5 Sensation: Intact L2-S1 with normal sensation Pulses: DP Palpable LABS: Recent Labs 11/12/24 0319 WBC 21.2* HGB 8.6* HCT 26.0* PLT 277 Recent Labs 11/12/24 0319 NA 145 K 3.6 CL 110* CO2 26 BUN 15 CREATININE 0.62 CALCIUM 7.9* No results for input(s): INR in the last 72 hours. No results for input(s): SEDRATE, CRP in the last 72 hours. No results for input(s): HCG in the last 72 hours. Assessment Kathryn is a 84 y.o.female s/p L2-L5 revision decompression with Dr. Morrison on 11/04/2024 transferred to [facility] for C. difficile colitis and right upper lobe pneumonia Plan - No additional operative intervention indicated, no further plans for surgery -If dressing comes saturated okay to replace with ABDs and silk tape, will change at DC - Weight-bear as tolerated bilateral lower extremities - No brace indicated - No additional imaging indicated of the spine -Activity as tolerated. Okay to elevate HOB - Okay for regular diet from ortho perspective -Neurovascular checks -Skin checks - Medical management/antibiotics per medicine/infectious disease team - Currently has a Nation catheter in place. Okay to remove from an orthopedic surgery standpoint. Pneumonia and C. difficile colitis per medicine - Ortho to follow Edwardo Santana MD * Justus Herrera MD - 11/12/2024 1:36 PM EDT Hospitalist Progress Note 11/12/2024 Subjective: Admit Date: 11/07/2024 PCP: Leonardo Lyles Room#: H-6123/H-6123 A BRIEF HOSPITAL COURSE: This is a 84 y.o. female s/p L2-L5 revision and decompression done on 11/[address] Morrison.On reviewof documentation from [facility], patient was seen to have had an intraoperative dural tear which was repaired during surgery and complaining of intermittent headaches. She began passing flatus and had a liquid bowel movement on 11/07 and was tolerating regular diet. She was recently treated forc-diff in September with course of PO vancomycin. Due to diarrhea, stool tested again and positive again so pt was transferred to [facility]. Upon arrival, pt hypoxic in the 80s on RA and did admit to some sob and cough. CXR with RUL infiltrate. Pt was admitted, started on cefepime/azithro for pneumonia and fi daxomycin for recurrent c-diff. Labs showed initial leukocytosis of 32.6. Diarrhea and leukocytosisimproved with treatment. Legionella/strep negative. Azithromycin discontinued on 11/08. Continued tohave diarrhea, poor appetite and poor mobility. Nation maintained. Added nutritional supplements. Discontinued lasix due to excessive diarrhea and risk of dehydration. Respiratory status improved. No productive cough since admission so sputum labs cancelled. Echocardiogram unremarkable. Interval History: 11/12: She c/o diarrhea - 4 episodes today. She c/o fatigue and not feeling well. Poor appetite. She has no other complaints. 11/11: No acute events overnight. Diarrhea overall improved, but remains. No CP or SOB. No labs today- will draw tomorrow. All questions answered. 11/10: Pt seen and examined. Still having multiple episodes of watery diarrhea today. Unable to move herself so requiring frequent cleanup by nursing. Continues to be on 4L O2 despite SpO2 documented> 95%. Turned down to 2L while in the room as pt without any respiratory complaints. K replaced today. No CBC drawn? Despite orders in place. Echo completed and unremarkable. Adult diet Regular 24HR INTAKE/OUTPUT: Intake/Output Summary (Last 24 hours) at 11/12/2024 1336 Last data filed at 11/12/2024 1136 Gross per 24 hour Intake 560 ml Output 1300 ml Net -740 ml Past Medical History: Medical History[1] LABS: CBC: Recent Labs 11/12/24 0319 WBC 21.2* RBC 3.10* HGB 8.6* HCT 26.0* MCV 83.9 RDW 15.9* PLT 277 BMP: Recent Labs 11/10/24 0140 11/12/24 0319 NA 145 145 K 3.0* 3.6 CL 108* 110* CO2 29 26 BUN 23 15 CREATININE 0.71 0.62 GLUCOSE 134* 100 CALCIUM 7.7* 7.9* ANIONGAP 8 9 LIVER PROFILE:No results for input(s): AST, ALT, BILITOT, ALKPHOS, PROT in the last 72 hours. No lab exists for component: LABALBU PT/INR: No results for input(s): PROTIME, INR in the last 72 hours. CARDIAC ENZYMES: No results for input(s): TROPONINI in the last 72 hours. Procalcitonin: No results found for: PROCAL COVID-19 PCR: No results for input(s): COVID19 in the last 72 hours. Objective: Vitals: BP 125/58 (BP Location: Left arm, Patient Position: Sitting) Pulse 71 Temp 36.4 C (97.6F) (Temporal) Resp 16 Ht 5' 0.98 (1.549 m) Wt 119 lb (54 kg) LMP (LMP Unknown) SpO2 95% BMI 22.50 kg/m Pulse Ox: SpO2 Av.5 % Min: 92 % Max: 95 % Supplemental O2: O2 Flow Rate (L/min): 2 L/min GENERAL: Lying in bed comfortably, awake and alert HEENT: normocephalic, non-traumatic, MMM NECK: supple, trachea midline HEART: RRR, normal S1 and S2 LUNGS: non labored, no crackles, no wheeze ABD: soft, non-tender MSK: no edema noted SKIN: warm, dry PSYCH: appropriate affect Medications: Scheduled PRN Scheduled Meds[2] PRN Meds[3] Continuous Continuous Meds[4] Assessment Data: Acute, acute on chronic, unstable/uncontrolled chronic problems/diagnoses: 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 Now on zosyn and improved Hypokalemia Stable chronic problems affecting care, new non-acute diagnoses: Hypothryoid Depression GERD Plan As a result of the above findings & factors, the following mgmt was pursued: - cont meds as ordered - discontinued azithro as legionella negative. Viral PCR negative. Discontinued sputum culture/pneumonia panel as no sputum production. Changed cefepime to zosyn on 11/08 due to mild confusion and nowimproved. Zosyn to end 11/14 per ID stewardship. - cont fidaxomycin x 10 day course - wean O2 as as tolerated as SpO2>95% - DC lasix due to excessive diarrhea, improved respiratory status and risk of dehydration - ortho consulted in setting of recent surgery at [facility] - am labs, replace lytes prn - PT/OT/CM/SW - delirium precautions: increase activity and limit nighttime disturbances - DVT prophylaxis: per ortho recs Advance Directive: Full Code Anticipated Discharge - Date - 2-3 days - Location - Skilled Facility - Pending the following - placement/auth, wean O2, improved diarrhea Total time spent (which include face to face and non face to face encounters) : 45 minutes Extended Emergency Contact Information Primary Emergency Contact: Hyun Purcell Mobile Relation: Daughter Justus Dm Herrera MD Division of Hospitalist Medicine Acute care [facility] [1] Past Medical History: Diagnosis Date Back pain Depression Gastritis GERD (gastroesophageal reflux disease) Hypothyroid [2] fidaxomicin, 200 mg, Oral, BID [Held by provider] furosemide, 20 mg, IntraVENous, BID gabapentin, 300 mg, Oral, BID levothyroxine, 88 mcg, Oral, q24h piperacillin-tazobactam, 4,500 mg, IntraVENous, q6h sertraline, 200 mg, Oral, Daily sodium chloride 0.9%, 10 mL, IntraVENous, 2 times per day [3] PRN medications: acetaminophen OR acetaminophen, albuterol, HYDROcodone - acetaminophen OR HYDROcodone - acetaminophen, hydrOXYzine HCl, naloxone, ondansetron ODT OR ondansetron, sodium chloride, sodium chloride 0.9% [4] * Win Alexander MD - 11/12/2024 5:58 AM EDT Images from the original note were not included. Orthopaedic Spine Progress Note Name: Kathryn Tamez Date of : 1940 Age: 84 y.o. Admission Date/Time: 11/07/2024 7:30 PM Assessment: Kathryn Tamez is a 84 y.o. female s/p L2-L5 revision decompression with Dr. Morrison on 11/04/2024 transferred to [facility] for C. difficile colitis and right upper lobe pneumonia Plan: - No additional operative intervention indicated, no further plans for surgery -If dressing comes saturated okay to replace with ABDs and silk tape - Weight-bear as tolerated bilateral lower extremities - No brace indicated - No additional imaging indicated of the spine -Activity as tolerated. Okay to elevate HOB - Okay for regular diet from ortho perspective -Neurovascular checks -Skin checks - Medical management/antibiotics per medicine/infectious disease team - Currently has a Nation catheter in place. Okay to remove from an orthopedic surgery standpoint. Pneumonia and C. difficile colitis per medicine - Ortho to follow Subjective: Patient states she is still doing well. Her pain is controlled. Denies any new numbness or tinglingin her legs. Feels like she is progressing and has no concerns. All questions answered this morning. Objective Most Recent Vitals: Vitals: 11/11/24 0804 11/11/24 1721 11/11/24 2145 11/12/24 0324 BP: 132/62 112/54 138/71 129/59 BP Location: Right arm Right arm Right arm Patient Position: Sitting Sitting Sitting Pulse: 71 72 70 71 Resp: 16 16 18 16 Temp: 36.8 C (98.2 F) 36.1 C (96.9 F) 36.2 C (97.2 F) 36.5 C (97.7 F) TempSrc: Temporal Temporal Temporal Temporal SpO2: 96% 92% 92% 92% Weight: Height: Intake/Output last 24 hours: I/O last 3 completed shifts: In: 1320 (24.5 mL/kg) [P.O.:1320] Out: 900 (16.7 mL/kg) [Urine:900 (0.5 mL/kg/hr)] Weight: 54 kg I/O this shift: In: 240 [P.O.:240] Out: 475 [Urine:475] Recent Labs 11/12/24318 WBC 21.2* HGB 8.6* HCT 26.0* MCV 83.9 Recent Labs 11/12/24 031 NA 145 K 3.6 CL 110* CO2 26 Gen: Uncomfortable. Alert and oriented Neck: supple Chest: Normal respiratory effort. Unlabored breathing Heart:: Regular rate Extremity: Lower Extremity Motor: HF Q TA EHL GSC Right 4+ 5 5 5 5 Left 5 4* 5 5 5 *Extensor lag Lower extremity sensation to light touch: L2 L3 L4 L5 S1 Right Intact Intact Intact Intact Intact Left Intact Intact Intact Intact Intact Lower extremity pulses: DP Right 2+ Left 2+ Wound: Dressing CDI. No evidence of hematoma. Win Alexander MD 11/12/2024 5:58 AM * Faby Bowen - 11/11/2024 2:56 PM EDT Images from the original note were not included. OCCUPATIONAL THERAPY [facility] Initial Evaluation Name/MRN: Kathryn Tamez ([id number]) Evaluation Date: 11/11/2024 Date of : 1940 Admission Date: 11/07/2024 7:30 PM Age: 84 y.o. Room[facility]Bed: [facility] A Discharge Recommendation: Alf Facility Assessment IMPRESSION: Pt admitted from [facility] with c-diff colitis. Initial admission for posterior fusion L2-L5, revision and decompression L2-L4, and dural defect repair (11/04). Prior to initial admission pt was living alone and completing ADLs independently without a device. Currently pt is performing below functional basline and would be unsafe to return home. Pt is unable to complete basic ADLsand daily routines without hands on assistance. Rec SNF to address deficits and return to baseline function. Admitting Diagnosis: Colitis d/t C Diff Performance Deficits /Impairments: Increased Pain, Decreased Functional Mobility, Decreased ADL status, Decreased Strength, Decreased Safety Awareness, Decreased Endurance, Decreased Balance, Decreased ROM, Decreased High Level IADLs, and Decreased Fine Motor Control Prognosis: Good Decision Making: Medium Complexity Subjective Pt cooperative and agreeable to therapy. Pt requiring assistance with posterior hygiene in bed uponarrival. Pain: 0-10 pain scale: 9/10 Location: back Past Medical History: Medical History[1] Past Surgical History: Surgical History[2] Admission Diagnosis: Patient Active Problem List Diagnosis Date Noted Colitis due to Clostridioides difficile 11/07/2024 Inability to walk 07/18/2024 Fall at home, initial encounter 05/07/2021 Mixed incontinence 05/07/2021 Gastro-esophageal reflux disease without esophagitis 05/07/2021 Migraines 05/07/2021 Osteoporosis of lumbar spine 05/07/2021 Myalgia 05/07/2021 Urgency of urination 05/07/2021 Urge incontinence of urine 05/07/2021 Low back pain 05/07/2021 Other chronic pain 05/07/2021 Major depressive disorder, single episode, unspecified 05/07/2021 Atrophy of vagina 05/07/2021 Osteopenia of multiple sites 05/07/2021 Thyrotoxicosis, unspecified without thyrotoxic crisis or storm 05/07/2021 Spinal stenosis of lumbar region 05/07/2021 Anxiety associated with depression 05/07/2021 Adjustment disorder with mixed anxiety and depressed mood 05/07/2021 Postsurgical hypothyroidism 05/07/2021 Other bursitis of hip, right hip 05/07/2021 Stress incontinence in female 05/07/2021 Pain in right hip 05/07/2021 Diarrhea 04/21/2021 Gastroenteritis and colitis, viral 08/06/2018 Severe malnutrition (CMS/HCC) (HCC) 08/06/2018 Vitamin D deficiency 08/06/2018 Infection due to Norovirus species 08/06/2018 Medical Precautions: Enhanced Contact Proper PPE donned/doffed in accordance with facility standards. Fall Risk: Reese Fall Risk Score: 45 (Medium Risk) Reese Fall Risk Score: 45 (High Risk) Precautions/Restrictions: Spine Precautions: No Bending, No Lifting, No Twisting Lines/Drains/Airways: PIV, nation, 2L O2 NC Fall Precautions Family/Caregiver Present: none Overall Cognitive Status: Required extra time for cognitive processing, and extra time responding to stimuli. Appears delayed: requiring extra cues for mobility and ADL tasks this date. Overall Orientation Status: Oriented x4 Social/Functional History Patient admitted from [facility], prior to admission pt from home alone: Type of Home: single family home Home Layout: Single Level Home Home Access: Stairs to Enter with Rails (# of stairs: 2) Bathroom Shower/Tub: Toilet: Standard Home Equipment: none Homemaking Responsibilities: Independent Receives Help From: None Prior Level of Function Prior Level of ADL Function: Independent Prior Level of Mobility: Independent; Device: None Prior Level of Transfers: Independent Objective ADLs LE Dressing: Min Assist, donning socks while seated EOB. Required assist maintaining figure four pose for RLE. Toileting: Dependent, at bed level d/t extent of soiled sergio pads. Feeding: Modified Independent, beverage management sitting up in bed. With functional observation, anticipate pt will require mod/max assistance for LB dressing, LB bathing, and toileting tasks due to limited standing tolerance, slight unsteadiness while standing, and hesitancy to let go of walker during transfers. Appearing SOB with minimal exertion. Upper Extremity Assessment AROM: Impaired: Shoulder flexion ~95-100 degrees bilaterally. Distally WFL PROM: WFL Bilateral shoulder flexion progressing to ~110 degrees with PROM. Strength: Exceptions: Shoulder flexion bilaterally 3+/5 despite ROM deficit. Bilateral elbow flexion and extension 4-/5. States pain in back during testing. Gross grasp fair. Bed Mobility Supine to sit: SBA Sit to supine: Mod Assist, for leg elevation Rolling to right: SBA Rolling to left: SBA HOB Elevated Use of bed rail(s) Transfers/Mobility Sit to stand: Min Assist Stand to sit: Min Assist Sitting balance: SBA Standing balance: Min Assist, able to progress to SBA. Static stand ~2 minutes before walking. Functional mobility: Min Assist, Ambulated ~3 feet forward and back from EOB. Very slow while ambulating, required extra time for all activities d/t decreased endurance. Appears globally weak and fatigued. Device(s) used: Standard walker AM-PAC AM-PAC Inpatient Daily Activity Raw Score: 18 ADL Inpatient CMS G-Code Modifier: CK Plan Pt would benefit from skilled acute OT services to address Strengthening, ROM, Gait Training, Balance Training, Self-Care/ADL Training, Functional Mobility Training, Endurance Training, Safety Education and Training, Pain Management, Home Management Training, and Patient/Caregiver Training. Frequency: 3x/week for 4 weeks Barriers: Pain, Impaired balance, Lower extremity weakness, Limited safety awareness, and Decreasedendurance Safety/Education Safety Safety Devices in place: All fall risk precautions in place, call light within reach, left in bed, gait belt, and no alarms engaged upon entry Restraints: No Education Education Given To: patient Education Provided: OT Role and Plan of Care Education Method: Verbal Barriers to Learning: None Education Outcome: Verbalized Understanding Goals Patient Stated Goal: Improve function Encounter Problems Encounter Problems (Active) Balance Patient will maintain dynamic standing balance for 4 minutes with supervision in prep for standing ADLs Start: 11/11/24 Expected End: 12/09/24 Bathing Patient will utilize adaptive techniques to bathe lower body min A Start: 11/11/24 Expected End: 12/09/24 Dressings Lower Extremities Patient will utilize adaptive techniques to dress lower body min A Start: 11/11/24 Expected End: 12/09/24 Toileting Patient will complete toileting tasks at OOB toilet with min assist. Start: 11/11/24 Expected End: 12/09/24 Transfers Pt will complete toilet transfer with least restrictive device with SBA Start: 11/11/24 Expected End: 12/09/24 Therapy Time Individual Co-Treatment Co-Evaluation Time In 1415 Time Out 1443 Minutes 28 Timed Code Treatment Minutes: 10 Minutes (1- FA) Patient's Occupational Therapy Plan of Care supervision is transferred to a [facility] Occupational Therapist. Goals and/or treatment plan was established in collaboration with patient/family/other representatives. Faby Bowen, S/OT [1] Past Medical History: Diagnosis Date Back pain Depression Gastritis GERD (gastroesophageal reflux disease) Hypothyroid [2] Past Surgical History: Procedure Laterality Date BACK SURGERY 2018 CHOLECYSTECTOMY 1981 COLONOSCOPY 07/2018 EGD with biopsy COLONOSCOPY 07/2018 HYSTERECTOMY 2004 JOINT REPLACEMENT Left left hip KIDNEY SURGERY Right right kideny remove, due tto cancer NEPHRECTOMY Left THYROIDECTOMY, PARTIAL TOTAL ANKLE ARTHROPLASTY Right Cosigned by Kim Keller OT at 11/11/2024 3:32 PM EDT * Justus Herrera MD - 11/11/2024 1:57 PM EDT Hospitalist Progress Note 11/11/2024 Subjective: Admit Date: 11/07/2024 PCP: Leonardo Lyles Room#: [id number] A BRIEF HOSPITAL COURSE: This is a 84 y.o. female s/p L2-L5 revision and decompression done on 11/[address] Morrison.On reviewof documentation from [facility], patient was seen to have had an intraoperative dural tear which was repaired during surgery and complaining of intermittent headaches. She began passing flatus and had a liquid bowel movement on 11/07 and was tolerating regular diet. She was recently treated forc-diff in September with course of PO vancomycin. Due to diarrhea, stool tested again and positive again so pt was transferred to [facility]. Upon arrival, pt hypoxic in the 80s on RA and did admit to some sob and cough. CXR with RUL infiltrate. Pt was admitted, started on cefepime/azithro for pneumonia and fi daxomycin for recurrent c-diff. Labs showed initial leukocytosis of 32.6. Diarrhea and leukocytosisimproved with treatment. Legionella/strep negative. Azithromycin discontinued on 11/08. Continued tohave diarrhea, poor appetite and poor mobility. Nation maintained. Added nutritional supplements. Discontinued lasix due to excessive diarrhea and risk of dehydration. Respiratory status improved. No productive cough since admission so sputum labs cancelled. Echocardiogram unremarkable. Interval History: 11/11: No acute events overnight. Diarrhea overall improved, but remains. No CP or SOB. No labs today- will draw tomorrow. All questions answered. 11/10: Pt seen and examined. Still having multiple episodes of watery diarrhea today. Unable to move herself so requiring frequent cleanup by nursing. Continues to be on 4L O2 despite SpO2 documented> 95%. Turned down to 2L while in the room as pt without any respiratory complaints. K replaced today. No CBC drawn? Despite orders in place. Echo completed and unremarkable. Adult diet Regular 24HR INTAKE/OUTPUT: Intake/Output Summary (Last 24 hours) at 11/11/2024 1357 Last data filed at 11/11/2024 1138 Gross per 24 hour Intake 400 ml Output 900 ml Net -500 ml Past Medical History: Medical History[1] LABS: CBC: Recent Labs 11/09/24 0002 WBC 27.2* RBC 3.30* HGB 9.1* HCT 26.8* MCV 81.2 RDW 15.0 PLT 200 BMP: Recent Labs 11/08/24 1801 11/09/24 0002 11/10/24 0140 NA 143 141 145 K 3.2* 3.8 3.0* CL 107 105 108* CO2 20* 19* 29 BUN 12 15 23 CREATININE 0.69 0.72 0.71 GLUCOSE 114 110 134* CALCIUM 8.2* 7.8* 7.7* ANIONGAP 16* 17* 8 LIVER PROFILE:No results for input(s): AST, ALT, BILITOT, ALKPHOS, PROT in the last 72 hours. No lab exists for component: LABALBU PT/INR: No results for input(s): PROTIME, INR in the last 72 hours. CARDIAC ENZYMES: No results for input(s): TROPONINI in the last 72 hours. Procalcitonin: No results found for: PROCAL COVID-19 PCR: No results for input(s): COVID19 in the last 72 hours. Objective: Vitals: BP 132/62 (BP Location: Right arm, Patient Position: Sitting) Pulse 71 Temp 36.8 C (98.2 F) (Temporal) Resp 16 Ht 5' 0.98 (1.549 m) Wt 119 lb (54 kg) LMP (LMP Unknown) SpO2 96% BMI 22.50 kg/m Pulse Ox: SpO2 Av.3 % Min: 92 % Max: 96 % Supplemental O2: O2 Flow Rate (L/min): 2 L/min GENERAL: Lying in bed comfortably, awake and alert HEENT: normocephalic, non-traumatic, MMM NECK: supple, trachea midline HEART: RRR, normal S1 and S2 LUNGS: non labored, no crackles, no wheeze ABD: soft, non-tender MSK: no edema noted SKIN: warm, dry PSYCH: appropriate affect Medications: Scheduled PRN Scheduled Meds[2] PRN Meds[3] Continuous Continuous Meds[4] Assessment Data: Acute, acute on chronic, unstable/uncontrolled chronic problems/diagnoses: 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 Now on zosyn and improved Hypokalemia Stable chronic problems affecting care, new non-acute diagnoses: Hypothryoid Depression GERD Plan As a result of the above findings & factors, the following mgmt was pursued: - cont meds as ordered - discontinued azithro as legionella negative. Viral PCR negative. Discontinued sputum culture/pneumonia panel as no sputum production. Changed cefepime to zosyn on 11/08 due to mild confusion and nowimproved - cont fidaxomycin x 10 day course - wean O2 as as tolerated as SpO2>95% - DC lasix due to excessive diarrhea, improved respiratory status and risk of dehydration - ortho consulted in setting of recent surgery at [facility] - am labs, replace lytes prn - PT/OT/CM/SW - delirium precautions: increase activity and limit nighttime disturbances - DVT prophylaxis: per ortho recs Advance Directive: Full Code Anticipated Discharge - Date - 2-3 days - Location - Skilled Facility - Pending the following - placement/auth, wean O2, improved diarrhea Total time spent (which include face to face and non face to face encounters) : 45 minutes Extended Emergency Contact Information Primary Emergency Contact: Hyun Purcell Mobile Relation: Daughter Justus Dm Herrera MD Division of Hospitalist Medicine [facility] [1] Past Medical History: Diagnosis Date Back pain Depression Gastritis GERD (gastroesophageal reflux disease) Hypothyroid [2] fidaxomicin, 200 mg, Oral, BID [Held by provider] furosemide, 20 mg, IntraVENous, BID gabapentin, 300 mg, Oral, BID levothyroxine, 88 mcg, Oral, q24h piperacillin-tazobactam, 4,500 mg, IntraVENous, q6h sertraline, 200 mg, Oral, Daily sodium chloride 0.9%, 10 mL, IntraVENous, 2 times per day [3] PRN medications: acetaminophen OR acetaminophen, albuterol, HYDROcodone - acetaminophen OR HYDROcodone - acetaminophen, hydrOXYzine HCl, naloxone, ondansetron ODT OR ondansetron, sodium chloride, sodium chloride 0.9% [4] * Alonso Roman MD - 11/11/2024 6:48 AM EDT Images from the original note were not included. Orthopaedic Spine Progress Note Name: Kathryn Tamez Date of : 1940 Age: 84 y.o. Admission Date/Time: 11/07/2024 7:30 PM Assessment: Kathryn Tamez is a 84 y.o. female s/p L2-L5 revision decompression with Dr. Morrison on 11/04/2024 transferred to [facility] for C. difficile colitis and right upper lobe pneumonia Plan: - No additional operative intervention indicated, no further plans for surgery -If dressing comes saturated okay to replace with ABDs and silk tape - Weight-bear as tolerated bilateral lower extremities - No brace indicated - No additional imaging indicated of the spine -Activity as tolerated. Okay to elevate HOB - Okay for regular diet from ortho perspective -Neurovascular checks -Skin checks - Medical management/antibiotics per medicine/infectious disease team - Currently has a Nation catheter in place. Okay to remove from an orthopedic surgery standpoint. Pneumonia and C. difficile colitis per medicine - Ortho to follow Subjective: Patient states she is doing well this morning. States her pain is well controlled. Denies any new numbness or tingling in her legs. States that she has been able to work with therapy during the day. Feels like she is progressing and has no concerns. All questions answered this morning. Objective Most Recent Vitals: Vitals: 11/10/24 1557 11/10/24 1558 11/10/24205211/10/24 2339 BP: 98/51 101/51 106/52 115/55 BP Location: Right arm Right arm Patient Position: Lying Lying Pulse: 63 66 65 66 Resp: 16 18 16 Temp: 36.2 C (97.1 F) 36.2 C (97.2 F) 36.8 C (98.2 F) TempSrc: Temporal Temporal Temporal SpO2: 94% 92% 95% Weight: Height: Intake/Output last 24 hours: I/O last 3 completed shifts: In: 1320 (24.5 mL/kg) [P.O.:1120; IV Piggyback:200] Out: 2325 (43.1 mL/kg) [Urine:2325 (1.2 mL/kg/hr)] Weight: 54 kg No intake/output data recorded. Recent Labs 11/09/24 0002 WBC 27.2* HGB 9.1* HCT 26.8* MCV 81.2 Recent Labs 11/10/24 0140 NA 145 K 3.0* CL 108* CO2 29 Gen: Uncomfortable. Alert and oriented Neck: supple Chest: Normal respiratory effort. Unlabored breathing Heart:: Regular rate Extremity: Lower Extremity Motor: HF Q TA EHL GSC Right 4+ 5 5 5 5 Left 5 4* 5 5 5 *Extensor lag Lower extremity sensation to light touch: L2 L3 L4 L5 S1 Right Intact Intact Intact Intact Intact Left Intact Intact Intact Intact Intact Lower extremity pulses: DP Right 2+ Left 2+ Wound: Dressing CDI. No evidence of hematoma. Alonso Roman MD 11/11/2024 6:48 AM * Jenny Doss, LEGISLATIVE ANALYST - 11/10/2024 2:14 PM EDT Images from the original note were not included. PHYSICAL THERAPY [facility] Treatment Note Name/MRN: Kathryn Tamez ([id number]) Date of : 1940 Age: 84 y.o. Room/Bed: 61/61 A Discharge Recommendation: Alf Facility Equipment Needed: No Prior Level of Function Prior Level of ADL Function: Independent Prior Level of Mobility: Independent; Device: None Prior Level of Transfers: Independent Assessment Pt moves extremely slow with all activity. Also limited by two bouts of diarrhea during session. Overall min assist for bed mobility, transfers, and standing balance. Currently recommend SNF level therapy at discharge. Subjective Pt supine in bed with HOB up. Agreeable to PT with encouragement. Pain: 0-10 pain scale: 9/10 Location: back Medical Precautions: Enhanced Contact Proper PPE donned/doffed in accordance with facility standards. Fall Risk: Reese Fall Risk Score: 45 (Medium Risk) Reese Fall Risk Score: 45 (High Risk) Precautions/Restrictions: Spine Precautions: No Bending, No Lifting, No Twisting Lines/Drains/Airways: PIV, nation, O2 Fall Precautions Overall Cognitive Status: WNL Overall Orientation Status: Oriented x4 Family/Caregiver Present: none Objective Bed Mobility Supine to sit: Min Assist Sit to supine: Mod Assist Rolling to right: Min Assist Rolling to left: Min Assist Use of bed rail(s) Rolled right and left several times for pericare with wipes, then with soap and washclothes. Barrier cream applied as well. Increased time to complete all bed mobility. Transfers/Mobility Sit to stand: Min Assist Stand to sit: Min Assist Stood from EOB Device(s) used: Standard walker Ambulation Ambulation 1 Assistive device(s) used: Standard walker Assist level: Min Assist Distance (ft): 2 steps forward and backwards 2 side steps to the right Quality of gait: B foot clearance, shuffling, slow renetta Balance During Session: Static stand ~ 4-5 minutes with std walker, min assist. Pt dependent for pericare a 2nd times whilestanding. Posture: fair Exercises Supine: ankle pumps, quad sets, glut sets, heel slides all x 10 reps, BLE, AROM/AAROM Sitting EOB: BLE LAQ x 10 reps Plan Continue acute PT per plan of care. Safety/Education Safety Safety Devices in place: All fall risk precautions in place, call light within reach, left in bed, and no alarms engaged upon entry Restraints: No Education Bed mobility, transfers, gait, HEP Outcome Measures AM-PAC AM-PAC Inpatient Mobility Raw Score (No Stairs) : 14 JH-HLM -HLM Score: Static standing (1 or more minutes) Goals Patient Stated Goal: to feel better Encounter Problems Encounter Problems (Active) Mobility Patient will ambulate 50 feet with supervision and least restrictive device in order to improve safety and independence with mobility. (Progressing) Start: 11/08/24 Expected End: 12/06/24 Patient will ascend and descend 2 stairs with least restrictive device and supervision in order to safely negotiate home. (Not Addressed) Start: 11/08/24 Expected End: 12/06/24 Transfers Patient will perform bed mobility with supervision in order to improve independence and prepare forout of bed mobility. (Progressing) Start: 11/08/24 Expected End: 12/06/24 Patient will complete functional transfer with least restrictive device with supervision in order to prepare for ambulation. 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 Encourage po intake. Please continue to document % of meals and oral nutrition supplement consumed daily on flow sheets. Monitor weight, labs, I/O, skin assessment, BM, and overall nutritional status. RD will follow up weekly. Malnutrition Assessment: Malnutrition Status: At risk for malnutrition (Comment) Context: Acute Illness Findings of the 6 clinical characteristics of malnutrition: Energy Intake: 50% or less of estimated energy requirements for 5 or more days Weight Loss: No significant weight loss Body Fat Loss: Unable to assess Muscle Mass Loss: Unable to assess Fluid Accumulation: No significant fluid accumulation Coil Maker Strength: Not Performed Nutrition Assessment: Per chart: 84 y.o. female with history of GERD, gastritis, depression, Left nephrectomy, She is s/pL2-L5 revision and decompression done on 11/[address] Morrison. On review of documentation from [facility], patient was seen to have had an intraoperative dural tear which was repaired during surgery and complaining of intermittent headaches. She began passing flatus and had a liquid bowel movement on 11/07 and was tolerating regular diet. She was recently treated for c-diff in September with courseof PO vancomycin. Due to diarrhea, stool tested again and positive again so pt was transferred to [facility]. Upon arrival, pt hypoxic in the 80s on RA and did admit to some sob and cough. CXR with RUL infiltrate. Pt was admitted, started on cefepime/azithro for pneumonia and fidaxomycin for recurrent c-diff. Labs showed initial leukocytosis of 32.6. Diarrhea and leukocytosis improved with treatment. Legionella/strep negative. Azithromycin discontinued on 11/08. Continued to have diarrhea, poor appetite and poor mobility. Nation maintained. Added nutritional supplements. Discontinued lasix due to excessive diarrhea and risk of dehydration. Respiratory status improved. No productive cough since admission so sputum labs cancelled RD spoke with patient this afternoon. She reports no appetite for the past month as well as food does not taste good. Breakfast and lunch were ordered- pt mentions that she only ate ice cream so far today. Patient states that she consumed an Ensure Plus yesterday- prefers strawberry or chocolate flavors. RD notified diet office of patient's flavor preferences. Patient requesting jello which RD provided. Obtained a bed scale weight of 130# which patient feels is inaccurate. She states her weightprior to surgery was around 116-117# which is around her UBW. Denies N/V. Per patient- two bowel movements today and feels no improvement in diarrhea. + Upper and lower dentures- denies difficulties chewing or swallowing. NFKA. Estimated Daily Nutrient Needs: Energy Requirements Based On: Kcal/kg Weight Used for Energy Requirements: [place] Weight for Energy Calculation (kg): 48 kg Total Energy Requirements (kcals/day): 3556-4994 kcals per day (25-30) Weight Used for Protein Requirements: [place] Weight in Kg Used for Protein Requirements: 48 kg Estimated Total Protein (g/day): 58-67 gm per day (1.2-1.4) Estimated Daily Total Fluid (ml/day): Per MD Nutrition Related Findings: Wing = 18, abdomen rounded, active bowel sounds, loose BM on 11/10, + upper and lower dentures, nonpitting BLE edema, room service selective Wound Type: Surgical Incision BMP: Recent Labs 11/07/24 2343 11/08/24 1801 11/09/24 0002 11/10/24 0140 NA 138 143 141 145 K 3.0* 3.2* 3.8 3.0* CL 105 107 105 108* CO2 22* 20* 19* 29 BUN 12 12 15 23 CREATININE 0.64 0.69 0.72 0.71 GLUCOSE 111 114 110 134* CALCIUM 7.8* 8.2* 7.8* 7.7* MG 1.6 1.7 -- 1.6 11/07/24 C difficile toxin PCR, A+B, EIA: positive Medications: Scheduled Meds[1] PRN Meds[2] Current Nutrition Therapies: Adult diet Regular Current Oral Intake Average Meal Intake: 26-50%, 1-25%, 0% Average Supplements Intake: 26-50% Anthropometric Measures: Height: 154.9 cm (5' 0.98) Current Body Weight: 59 kg (130 lb) (11/10/24) Weight Source: Bed Scale Admission Body Weight: 54 kg (119 lb) (stated on 11/07/24 and 11/09/24) Usual Body Weight: (Per Epic: 119# on 02/15/24, 109# on 04/01/24, 119# stated on 04/16/24, 120# on 07/10/24, 119# stated on 07/18/24, 124# bed scale on 07/21/24, 119# on 10/27/24) [place] Body Weight (lbs) (Calculated): 105 lbs [place] Body Weight (Kg) (Calculated): 48 kg % [place] Body Weight (Calculated): 123.8 % BMI (kg/m2) (Calculated): 24.6 Weight Adjustment For: No Adjustment BMI Categories: Normal Weight (BMI 22.0 to 24.9) age over 65 Nutrition Diagnosis: Inadequate oral intake related to altered taste perception (diarrhea) as evidenced by intake 26-50%, intake 0-25% Nutrition Interventions: Nutrition Education/Counseling: No recommendation at this time Coordination of Nutrition Care: Continue to monitor while inpatient Goals: Goals: PO intake 50% or greater, by next RD assessment Nutrition Monitoring and Evaluation: Behavioral-Environmental Outcomes: None Identified Food/Nutrient Intake Outcomes: Food and Nutrient Intake, Supplement Intake Physical Signs/Symptoms Outcomes: Biochemical Data, Chewing or Swallowing, GI Status, Diarrhea, Fluid Status or Edema, Meal Time Behavior, Nutrition Focused Physical Findings, Skin, Weight Discharge Planning: Too soon to determine Lisa Noble RD Contact: *[phone] [1] fidaxomicin, 200 mg, Oral, BID [Held by provider] furosemide, 20 mg, IntraVENous, BID gabapentin, 300 mg, Oral, BID levothyroxine, 88 mcg, Oral, q24h piperacillin-tazobactam, 4,500 mg, IntraVENous, q6h sertraline, 200 mg, Oral, Daily sodium chloride 0.9%, 10 mL, IntraVENous, 2 times per day [2] PRN medications: acetaminophen OR acetaminophen, albuterol, HYDROcodone - acetaminophen OR HYDROcodone - acetaminophen, hydrOXYzine HCl, naloxone, ondansetron ODT OR ondansetron, sodium chloride, sodium chloride 0.9% * Zoltan Lauren, - 11/10/2024 1:34 PM EDT Hospitalist Progress Note 11/10/2024 Subjective: Admit Date: 11/07/2024 PCP: Leonardo Lyles Room#: [id number] A BRIEF HOSPITAL COURSE: This is a 84 y.o. female s/p L2-L5 revision and decompression done on 11/[address] Morrison.On reviewof documentation from [facility], patient was seen to have had an intraoperative dural tear which was repaired during surgery and complaining of intermittent headaches. She began passing flatus and had a liquid bowel movement on 11/07 and was tolerating regular diet. She was recently treated forc-diff in September with course of PO vancomycin. Due to diarrhea, stool tested again and positive again so pt was transferred to [facility]. Upon arrival, pt hypoxic in the 80s on RA and did admit to some sob and cough. CXR with RUL infiltrate. Pt was admitted, started on cefepime/azithro for pneumonia and fi daxomycin for recurrent c-diff. Labs showed initial leukocytosis of 32.6. Diarrhea and leukocytosisimproved with treatment. Legionella/strep negative. Azithromycin discontinued on 11/08. Continued tohave diarrhea, poor appetite and poor mobility. Nation maintained. Added nutritional supplements. Discontinued lasix due to excessive diarrhea and risk of dehydration. Respiratory status improved. No productive cough since admission so sputum labs cancelled Interval History: 11/10: Pt seen and examined. Still having multiple episodes of watery diarrhea today. Unable to move herself so requiring frequent cleanup by nursing. Continues to be on 4L O2 despite SpO2 documented> 95%. Turned down to 2L while in the room as pt without any respiratory complaints. K replaced today. No CBC drawn? Despite orders in place. Echo completed and unremarkable. Adult diet Regular 24HR INTAKE/OUTPUT: Intake/Output Summary (Last 24 hours) at 11/10/2024 1334 Last data filed at 11/10/2024 1233 Gross per 24 hour Intake 700 ml Output 525 ml Net 175 ml Past Medical History: Medical History[1] LABS: CBC: Recent Labs 11/07/24 2343 11/09/24 0002 WBC 26.7* 27.2* RBC 3.06* 3.30* HGB 8.7* 9.1* HCT 26.1* 26.8* MCV 85.3 81.2 RDW 15.3* 15.0 PLT 148 200 BMP: Recent Labs 11/08/24 1801 11/09/24 0002 11/10/24 0140 NA 143 141 145 K 3.2* 3.8 3.0* CL 107 105 108* CO2 20* 19* 29 BUN 12 15 23 CREATININE 0.69 0.72 0.71 GLUCOSE 114 110 134* CALCIUM 8.2* 7.8* 7.7* ANIONGAP 16* 17* 8 LIVER PROFILE:No results for input(s): AST, ALT, BILITOT, ALKPHOS, PROT in the last 72 hours. No lab exists for component: LABALBU PT/INR: No results for input(s): PROTIME, INR in the last 72 hours. CARDIAC ENZYMES: No results for input(s): TROPONINI in the last 72 hours. Procalcitonin: Lab Results Component Value Date PROCAL 0.28 (H) 11/07/2024 COVID-19 PCR: No results for input(s): COVID19 in the last 72 hours. Objective: Vitals: BP 112/53 Pulse 72 Temp 36.1 C (97 F) (Temporal) Resp 16 Ht 5' 1 (1.549 m) Wt 119 lb (54 kg) LMP (LMP Unknown) SpO2 93% BMI 22.48 kg/m Pulse Ox: SpO2 Av.5 % Min: 93 % Max: 97 % Supplemental O2: O2 Flow Rate (L/min): 3 L/min GENERAL: Lying in bed comfortably, awake and alert HEENT: normocephalic, non-traumatic, MMM NECK: supple, trachea midline HEART: RRR, normal S1 and S2 LUNGS: non labored, no crackles, no wheeze ABD: soft, non-tender MSK: no edema noted SKIN: warm, dry PSYCH: appropriate affect Medications: Scheduled PRN Scheduled Meds[2] PRN Meds[3] Continuous Continuous Meds[4] Assessment Data: Acute, acute on chronic, unstable/uncontrolled chronic problems/diagnoses: 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 Now on zosyn and improved Hypokalemia Stable chronic problems affecting care, new non-acute diagnoses: Hypothryoid Depression GERD Plan As a result of the above findings & factors, the following mgmt was pursued: - cont meds as ordered - discontinued azithro as legionella negative. Viral PCR negative. Discontinued sputum culture/pneumonia panel as no sputum production. Changed cefepime to zosyn on 11/08 due to mild confusion and nowimproved - cont fidaxomycin x 10 day course - wean O2 as as tolerated as SpO2>95% - DC lasix due to excessive diarrhea, improved respiratory status and risk of dehydration - ortho consulted in setting of recent surgery at [facility] - am labs, replace lytes prn - PT/OT/CM/SW - delirium precautions: increase activity and limit nighttime disturbances - DVT prophylaxis: per ortho recs Advance Directive: Full Code Anticipated Discharge - Date - 2-3 days - Location - Skilled Facility - Pending the following - placement/auth, wean O2, improved diarrhea Total time spent (which include face to face and non face to face encounters) : 50 minutes Extended Emergency Contact Information Primary Emergency Contact: Hyun Purcell Mobile Relation: Daughter Zoltan Lam DO [facility] Division of Hospitalist Medicine [facility] [1] Past Medical History: Diagnosis Date Back pain Depression Gastritis GERD (gastroesophageal reflux disease) Hypothyroid [2] fidaxomicin, 200 mg, Oral, BID [Held by provider] furosemide, 20 mg, IntraVENous, BID gabapentin, 300 mg, Oral, BID levothyroxine, 88 mcg, Oral, q24h piperacillin-tazobactam, 4,500 mg, IntraVENous, q6h sertraline, 200 mg, Oral, Daily sodium chloride 0.9%, 10 mL, IntraVENous, 2 times per day [3] PRN medications: acetaminophen OR acetaminophen, albuterol, HYDROcodone - acetaminophen OR HYDROcodone - acetaminophen, hydrOXYzine HCl, naloxone, ondansetron ODT OR ondansetron, sodium chloride, sodium chloride 0.9% [4] * Alonso Rmoan MD - 11/10/2024 8:10 AM EDT Images from the original note were not included. Orthopaedic Spine Progress Note Name: Kathryn Tamez Date of : 1940 Age: 84 y.o. Admission Date/Time: 11/07/2024 7:30 PM Assessment: Kathryn Tamez is a 84 y.o. female s/p L2-L5 revision decompression with Dr. Morrison on 11/04/2024 transferred to [facility] for C. difficile colitis and right upper lobe pneumonia Plan: - No additional operative intervention indicated, no further plans for surgery -If dressing comes saturated okay to replace with ABDs and silk tape - Weight-bear as tolerated bilateral lower extremities - No brace indicated - No additional imaging indicated of the spine -Activity as tolerated. Okay to elevate HOB - Okay for regular diet from ortho perspective -Neurovascular checks -Skin checks - Medical management/antibiotics per medicine/infectious disease team - Currently has a Nation catheter in place. Okay to remove from an orthopedic surgery standpoint. Pneumonia and C. difficile colitis per medicine - Ortho to follow Subjective: Patient states she is doing well this morning. States her pain is well controlled. Denies any new numbness or tingling in her legs. All questions answered this morning. Objective Most Recent Vitals: Vitals: 11/09/24 1939 11/10/24 0056 11/10/24 0508 11/10/24 0758 BP: 106/58 119/58 121/62 126/66 BP Location: Patient Position: Pulse: 85 70 73 70 Resp: 20 22 20 16 Temp: (!) 35.9 C (96.7 F) 36.1 C (96.9 F) (!) 35.6 C (96 F) (!) 35.9 C (96.6 F) TempSrc: Temporal Temporal Temporal Temporal SpO2: 96% 93% 94% 97% Weight: Height: Intake/Output last 24 hours: I/O last 3 completed shifts: In: 560 (10.4 mL/kg) [P.O.:360; IV Piggyback:200] Out: 4175 (77.3 mL/kg) [Urine:4175 (2.1 mL/kg/hr)] Weight: 54 kg No intake/output data recorded. Recent Labs 11/09/24 0002 WBC 27.2* HGB 9.1* HCT 26.8* MCV 81.2 Recent Labs 11/10/24 0140 NA 145 K 3.0* CL 108* CO2 29 Gen: Uncomfortable. Alert and oriented Neck: supple Chest: Normal respiratory effort. Unlabored breathing Heart:: Regular rate Extremity: Lower Extremity Motor: HF Q TA EHL GSC Right 4+ 5 5 5 5 Left 5 4* 5 5 5 *Extensor lag Lower extremity sensation to light touch: L2 L3 L4 L5 S1 Right Intact Intact Intact Intact Intact Left Intact Intact Intact Intact Intact Lower extremity pulses: DP Right 2+ Left 2+ Wound: Dressing CDI. No evidence of hematoma. Alonso Roman MD 11/10/2024 8:10 AM * Zoltan Niveland, DO - 11/09/2024 1:30 PM EDT Hospitalist Progress Note 11/09/2024 Subjective: Admit Date: 11/07/2024 PCP: Leonardo Lyles Room#: [id number] A BRIEF HOSPITAL COURSE: This is a 84 y.o. female s/p L2-L5 revision and decompression done on 11/[address] Morrison.On reviewof documentation from [facility], patient was seen to have had an intraoperative dural tear which was repaired during surgery and complaining of intermittent headaches. She began passing flatus and had a liquid bowel movement on 11/07 and was tolerating regular diet. She was recently treated forc-diff in September with course of PO vancomycin. Due to diarrhea, stool tested again and positive again so pt was transferred to [facility]. Upon arrival, pt hypoxic in the 80s on RA and did admit to some sob and cough. CXR with RUL infiltrate. Pt was admitted, started on cefepime/azithro for pneumonia and fidaxomycin for recurrent c-diff. Labs showed initial leukocytosis of 32.6. Diarrhea and leukocytosisimproved with treatment. Legionella/strep negative. Azithromycin discontinued on 11/08. Continued tohave diarrhea, poor appetite and poor mobility. Nation maintained. Added nutritional supplements. Discontinued lasix due to excessive diarrhea and risk of dehydration. Respiratory status improved. No productive cough since admission so sputum labs cancelled Interval History: 11/09: Pt seen and examined. Still having multiple episodes of watery diarrhea today. Unable to move herself so requiring frequent cleanup by nursing. Spoke with nursing and will maintain nation due to immobility and excessive diarrhea due to risk of developing UTI. Pt states respiratory status improved today and denies sob - 95% on 4L. Will attempt to wean today. No sputum production since admission so sputum labs cancelled. Pt states she is drinking a lot of water, but feels dehydrated. Discontinued lasix and encouraged continued PO hydration. Added on nutritional supplements due to poor appetite Adult diet Regular 24HR INTAKE/OUTPUT: Intake/Output Summary (Last 24 hours) at 11/09/2024 1331 Last data filed at 11/09/2024 1320 Gross per 24 hour Intake 220 ml Output 3650 ml Net -3430 ml Past Medical History: Medical History[1] LABS: CBC: Recent Labs 11/07/24 0617 11/07/24 2343 11/09/24 0002 WBC 32.6* 26.7* 27.2* RBC 3.26* 3.06* 3.30* HGB 9.1* 8.7* 9.1* HCT 28.0* 26.1* 26.8* MCV 85.9 85.3 81.2 RDW 15.3* 15.3* 15.0 PLT 134* 148 200 BMP: Recent Labs 11/07/24 2343 11/08/24 1801 11/09/24 0002 NA 138 143 141 K 3.0* 3.2* 3.8 CL 105 107 105 CO2 22* 20* 19* BUN 12 12 15 CREATININE 0.64 0.69 0.72 GLUCOSE 111 114 110 CALCIUM 7.8* 8.2* 7.8* ANIONGAP 11 16* 17* LIVER PROFILE:No results for input(s): AST, ALT, BILITOT, ALKPHOS, PROT in the last 72 hours. No lab exists for component: LABALBU PT/INR: No results for input(s): PROTIME, INR in the last 72 hours. CARDIAC ENZYMES: No results for input(s): TROPONINI in the last 72 hours. Procalcitonin: Lab Results Component Value Date PROCAL 0.28 (H) 11/07/2024 COVID-19 PCR: No results for input(s): COVID19 in the last 72 hours. Objective: Vitals: BP 126/59 (BP Location: Left arm, Patient Position: Sitting) Pulse 92 Temp 36.1 C (96.9F) (Temporal) Resp 16 Ht 5' 1.02 (1.55 m) Wt 119 lb (54 kg) LMP (LMP Unknown) SpO2 97% BMI 22.47 kg/m Pulse Ox: SpO2 Av.2 % Min: 91 % Max: 97 % Supplemental O2: O2 Flow Rate (L/min): 4 L/min GENERAL: Lying in bed comfortably, awake and alert HEENT: normocephalic, non-traumatic, MMM NECK: supple, trachea midline HEART: RRR, normal S1 and S2 LUNGS: non labored, no crackles, no wheeze ABD: soft, non-tender MSK: no edema noted SKIN: warm, dry PSYCH: appropriate affect Medications: Scheduled PRN Scheduled Meds[2] PRN Meds[3] Continuous Continuous Meds[4] Assessment Data: Acute, acute on chronic, unstable/uncontrolled chronic problems/diagnoses: 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 Now on zosyn and improved Stable chronic problems affecting care, new non-acute diagnoses: Hypothryoid Depression GERD Plan As a result of the above findings & factors, the following mgmt was pursued: - cont meds as ordered - discontinued azithro as legionella negative. Viral PCR negative. Discontinued sputum culture/pneumonia panel as no sputum production. Changed cefepime to zosyn on 11/08 due to mild confusion and nowimproved - cont fidaxomycin x 10 day course - wean O2 as as tolerated as SpO2>95% - holding lasix due to excessive diarrhea, improved respiratory status and risk of dehydration - ortho consulted in setting of recent surgery at [facility] - will obtain echo given elevated BNP and hypoxia - am labs, replace lytes prn - PT/OT/CM/SW - delirium precautions: increase activity and limit nighttime disturbances - DVT prophylaxis: per ortho recs Advance Directive: Full Code Anticipated Discharge - Date - 2-3 days - Location - Skilled Facility - Pending the following - placement/auth, wean O2, echo, improved diarrhea Total time spent (which include face to face and non face to face encounters) : 50 minutes Extended Emergency Contact Information Primary Emergency Contact: Hyun Purcell Mobile Relation: Daughter Zoltan Lauren Division of Hospitalist Medicine [facility] [1] Past Medical History: Diagnosis Date Back pain Depression Gastritis GERD (gastroesophageal reflux disease) Hypothyroid [2] fidaxomicin, 200 mg, Oral, BID [Held by provider] furosemide, 20 mg, IntraVENous, BID gabapentin, 300 mg, Oral, BID levothyroxine, 88 mcg, Oral, q24h piperacillin-tazobactam, 4,500 mg, IntraVENous, q6h sertraline, 200 mg, Oral, Daily sodium chloride 0.9%, 10 mL, IntraVENous, 2 times per day [3] PRN medications: acetaminophen OR acetaminophen, albuterol, HYDROcodone - acetaminophen OR HYDROcodone - acetaminophen, hydrOXYzine HCl, naloxone, ondansetron ODT OR ondansetron, sodium chloride, sodium chloride 0.9% [4] * Thu Cedeno - 11/09/2024 1:09 PM EDT Nutrition rescreen completed. Patient referred to the Dietitian due to supplement order. BERTIN Doss * Aniceto Hernandez MD - 11/09/2024 8:51 AM EDT Images from the original note were not included. Orthopaedic Spine Progress Note Name: Kathryn Tamez Date of : 1940 Age: 84 y.o. Admission Date/Time: 11/07/2024 7:30 PM Assessment: Kathryn Tamez is a 84 y.o. female s/p L2-L5 revision decompression with Dr. Morrison on 11/04/2024 transferred to [facility] for C. difficile colitis and right upper lobe pneumonia Plan: - No additional operative intervention indicated, no further plans for surgery -If dressing comes saturated okay to replace with ABDs and silk tape - Weight-bear as tolerated bilateral lower extremities - No brace indicated - No additional imaging indicated of the spine -Activity as tolerated. Okay to elevate HOB - Okay for regular diet from ortho perspective -Neurovascular checks -Skin checks - Medical management/antibiotics per medicine/infectious disease team - Currently has a Nation catheter in place. Okay to remove from an orthopedic surgery standpoint. Pneumonia and C. difficile colitis per medicine - Ortho to follow Subjective: Uncomfortable this morning after having a bowel movement in bed. After being cleaned up her pain iswell-controlled with no new numbness, tingling, or weakness. She is somewhat slow to respond and isquestionably confused Objective Most Recent Vitals: Vitals: 11/08/24 2052 11/08/24 2106 11/09/24 0835 11/09/24 0847 BP: 145/80 155/77 BP Location: Right arm Right arm Patient Position: Sitting Sitting Pulse: 110 96 Resp: 17 20 Temp: 36.1 C (96.9 F) 36.7 C (98.1 F) 36.2 C (97.2 F) 36.3 C (97.3 F) TempSrc: Temporal Oral Temporal Temporal SpO2: 95% 95% Weight: Height: Intake/Output last 24 hours: I/O last 3 completed shifts: In: 150 (2.8 mL/kg) [P.O.:100; I.V.:50 (0.9 mL/kg)] Out: 4950 (91.7 mL/kg) [Urine:4950 (2.5 mL/kg/hr)] Weight: 54 kg No intake/output data recorded. Recent Labs 11/09/24 0002 WBC 27.2* HGB 9.1* HCT 26.8* MCV 81.2 Recent Labs 11/09/24 0002 NA 141 K 3.8 CL 105 CO2 19* Gen: Uncomfortable. Alert and oriented Neck: supple Chest: Normal respiratory effort. Unlabored breathing Heart:: Regular rate Extremity: Lower Extremity Motor: HF Q TA EHL GSC Right 4+ 5 5 5 5 Left 5 4* 5 5 5 *Extensor lag Lower extremity sensation to light touch: L2 L3 L4 L5 S1 Right Intact Intact Intact Intact Intact Left Intact Intact Intact Intact Intact Lower extremity pulses: DP Right 2+ Left 2+ Wound: Dressing CDI. No evidence of hematoma. ANICETO HERNANDEZ MD 11/09/2024 8:51 AM * Zoltan Lauren DO - 11/08/2024 1:40 PM EDT Hospitalist Progress Note 11/08/2024 Subjective: Admit Date: 11/07/2024 PCP: Leonardo Lyles Room#: [id number] A BRIEF HOSPITAL COURSE: This is a 84 y.o. female s/p L2-L5 revision and decompression done on 11/[address] Morrison.On reviewof documentation from [facility], patient was seen to have had an intraoperative dural tear which was repaired during surgery and complaining of intermittent headaches. She began passing flatus and had a liquid bowel movement on 11/07 and was tolerating regular diet. She was recently treated forc-diff in September with course of PO vancomycin. Due to diarrhea, stool tested again and positive again so pt was transferred to [facility]. Upon arrival, pt hypoxic in the 80s on RA and did admit to some sob and cough. CXR with RUL infiltrate. Pt was admitted, started on cefepime/azithro for pneumonia and fidaxomycin for recurrent c-diff. Labs showed initial leukocytosis of 32.6. Diarrhea and leukocytosisimproved with treatment. Legionella/strep negative. Azithromycin discontinued on 11/08 Interval History: 11/08: Pt seen and examined. States she feels about the same, though states cough and loose stools improved. States non-productive today. Leukocytosis improving. PT recommending SNF and pt agreeable. Adult diet Regular 24HR INTAKE/OUTPUT: Intake/Output Summary (Last 24 hours) at 11/08/2024 1340 Last data filed at 11/08/2024 1143 Gross per 24 hour Intake 150 ml Output 2700 ml Net -2550 ml Past Medical History: Medical History[1] LABS: CBC: Recent Labs 11/07/24 0617 11/07/24 2343 WBC 32.6* 26.7* RBC 3.26* 3.06* HGB 9.1* 8.7* HCT 28.0* 26.1* MCV 85.9 85.3 RDW 15.3* 15.3* PLT 134* 148 BMP: Recent Labs 11/07/24 2343 NA 138 K 3.0* CL 105 CO2 22* BUN 12 CREATININE 0.64 GLUCOSE 111 CALCIUM 7.8* ANIONGAP 11 LIVER PROFILE:No results for input(s): AST, ALT, BILITOT, ALKPHOS, PROT in the last 72 hours. No lab exists for component: LABALBU PT/INR: No results for input(s): PROTIME, INR in the last 72 hours. CARDIAC ENZYMES: No results for input(s): TROPONINI in the last 72 hours. Procalcitonin: Lab Results Component Value Date PROCAL 0.28 (H) 11/07/2024 COVID-19 PCR: No results for input(s): COVID19 in the last 72 hours. Objective: Vitals: BP 127/69 (BP Location: Right arm, Patient Position: Lying) Pulse 98 Temp (!) 35.8 C (96.4 F) (Temporal) Resp 14 Ht 5' 1.02 (1.55 m) Wt 119 lb (54 kg) LMP (LMP Unknown) SpO2 93% BMI 22.47 kg/m Pulse Ox: SpO2 Av.3 % Min: 93 % Max: 94 % Supplemental O2: O2 Flow Rate (L/min): 4 L/min GENERAL: Lying in bed comfortably, awake and alert HEENT: normocephalic, non-traumatic, MMM NECK: supple, trachea midline HEART: RRR, normal S1 and S2 LUNGS: non labored, R sided minimal crackles, no wheeze ABD: soft, non-tender MSK: no edema noted SKIN: warm, dry PSYCH: appropriate affect Medications: Scheduled PRN Scheduled Meds[2] PRN Meds[3] Continuous Continuous Meds[4] Assessment Data: Acute, acute on chronic, unstable/uncontrolled chronic problems/diagnoses: 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 Viral PCR negative. Awaiting sputum culture/pneumonia panel, but so far no sputum production. Will DC 11/09 if still no productive cough. Cont cefepime - cont fidaxomycin x 10 day course - ortho consulted in setting of recent surgery at [facility] - will obtain echo given elevated BNP and hypoxia - am labs, replace lytes prn - PT/OT/CM/SW - delirium precautions: increase activity and limit nighttime disturbances - DVT prophylaxis: per ortho recs Advance Directive: Full Code Anticipated Discharge - Date - 11/11-11/12 - Location - Skilled Facility - Pending the following - placement/auth, wean O2, echo, pneumonia workup Total time spent (which include face to face and non face to face encounters) : 50 minutes Extended Emergency Contact Information Primary Emergency Contact: Hyun Purcell Mobile Relation: Daughter Zoltan Lam DO [facility] Division of Hospitalist Medicine [facility] [1] Past Medical History: Diagnosis Date Back pain Depression Gastritis GERD (gastroesophageal reflux disease) Hypothyroid [2] cefepime, 2,000 mg, IntraVENous, q12h fidaxomicin, 200 mg, Oral, BID gabapentin, 300 mg, Oral, BID levothyroxine, 88 mcg, Oral, q24h sertraline, 200 mg, Oral, Daily sodium chloride 0.9%, 10 mL, IntraVENous, 2 times per day [3] PRN medications: acetaminophen OR acetaminophen, albuterol, HYDROcodone - acetaminophen OR HYDROcodone - acetaminophen, hydrOXYzine HCl, naloxone, ondansetron ODT OR ondansetron, sodium chloride, sodium chloride 0.9% [4] * Josh Li, PT - 11/08/2024 10:16 AM EDT Images from the original note were not included. PHYSICAL THERAPY [facility] Initial Evaluation Name/MRN: Kathryn Tamez ([id number]) Evaluation Date: 11/08/2024 Date of : 1940 Admission Date: 11/07/2024 7:30 PM Age: 84 y.o. Room/Bed: [id number]/[id number] A Discharge Recommendation: Alf Facility Equipment Needed: No Assessment IMPRESSION: 84 y.o. pt admitted to [facility] for colitis d/t c.diff, admitted from [facility] after having L2-5 PSF 11/04. They were Min A - Mod A for bed mobility, Min A for transfers, and CGA for standing balance. Highly limited d/t fatigue and weakness. She is from home alone, stated her daughter can come stay with her at discharge. Below baseline, at high risk for falls. Would recommend SNF at discharge. Admitting Diagnosis: colitis d/t c.diff, admitted from [facility] after having L2-5 PSF 11/04 Prognosis: fair Performance Deficits /Impairments: Decreased Functional Mobility, Decreased Strength, Decreased Endurance, and Decreased Balance Decision Making: Medium Complexity Subjective Pt supine in bed. Agreeable to PT session with slight encouragement. Cleared by nursing Pain: Lopez- Pain Ratin = Hurts little more Pain Location: low back Past Medical History: Medical History[1] Past Surgical History: Surgical History[2] Admission Diagnosis: Patient Active Problem List Diagnosis Date Noted Colitis due to Clostridioides difficile 11/07/2024 Inability to walk 07/18/2024 Fall at home, initial encounter 05/07/2021 Mixed incontinence 05/07/2021 Gastro-esophageal reflux disease without esophagitis 05/07/2021 Migraines 05/07/2021 Osteoporosis of lumbar spine 05/07/2021 Myalgia 05/07/2021 Urgency of urination 05/07/2021 Urge incontinence of urine 05/07/2021 Low back pain 05/07/2021 Other chronic pain 05/07/2021 Major depressive disorder, single episode, unspecified 05/07/2021 Atrophy of vagina 05/07/2021 Osteopenia of multiple sites 05/07/2021 Thyrotoxicosis, unspecified without thyrotoxic crisis or storm 05/07/2021 Spinal stenosis of lumbar region 05/07/2021 Anxiety associated with depression 05/07/2021 Adjustment disorder with mixed anxiety and depressed mood 05/07/2021 Postsurgical hypothyroidism 05/07/2021 Other bursitis of hip, right hip 05/07/2021 Stress incontinence in female 05/07/2021 Pain in right hip 05/07/2021 Diarrhea 04/21/2021 Gastroenteritis and colitis, viral 08/06/2018 Severe malnutrition (CMS/HCC) (HCC) 08/06/2018 Vitamin D deficiency 08/06/2018 Infection due to Norovirus species 08/06/2018 Medical Precautions: Enhanced Contact, Droplet Proper PPE donned/doffed in accordance with facility standards. Fall Risk: Reese Fall Risk Score: 60 (Medium Risk) Reese Fall Risk Score: 60 (High Risk) Precautions/Restrictions: Spine Precautions: No Bending, No Lifting, No Twisting Lines/Drains/Airways: PIV, nation Fall Precautions Family/Caregiver Present: none Overall Cognitive Status: Exceptions - Following commands: follows one step commands with increased time and follows one step commands with repetition - Initiation: requires cues for some - Sequencing: requires cues for some Overall Orientation Status: Oriented to Place, Oriented to Situation, and Oriented to Person Vision: Not Assessed Hearing: normal Social/Functional History Patient admitted from home. 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 With return to bed, rolling L <> R for dependent pericare performed. Min A for hip rotation, increased time for commandprocessing Transfers Sit to stand: Min Assist Stand to sit: Min Assist EOB x1 at FWW, upon standing experienced episode of bowel incontinence, standing ~2 min for dependent pericare with CGA Ambulation Did not assess this session. Outcome Measures AM-PAC How much HELP from another person do you currently need Turning from your back to your side while in a flat bed without using bedrails?: A Little Moving from lying on your back to sitting on the side of a flat bed without using bedrails?: A Little Moving to and from a bed to a chair (including a wheelchair)?: A Little Standing up from a chair using your arms (wheelchair or bedside chair)?: A Little Walking in a hospital room?: A Lot Stair climbing assessed?: No AM-PAC Inpatient Mobility Raw Score (No Stairs) : 14 JH-HLM -HLM Score: Static standing (1 or more minutes) Plan Pt would benefit from skilled acute PT services to address Strengthening, Gait Training, Balance Training, Functional Mobility Training, Endurance Training, Safety Education and Training, Stair Training, Equipment Evaluation/Education, Neuromuscular Re-Education Training, and Patient/Caregiver Training. Frequency: 5x/week for 4 weeks Barriers: Pain, Impaired balance, Lower extremity weakness, and Decreased endurance Safety/Education Safety Safety Devices in place: call light within reach, left in bed, gait belt, patient at risk for falls, and nurse notified Restraints: No Education Education Given To: patient Education Provided: PT Role, PT Goals, Plan of Care, Precautions, Transfer Training, Fall Prevention Education, Discharge Recommendations, and Benefits of Increasing Activity Education Method: Verbal Barriers to Learning: None Education Outcome: Verbalized Understanding Goals Patient Stated Goal: to feel better Encounter Problems Encounter Problems (Active) Mobility Patient will ambulate 50 feet with supervision and least restrictive device in order to improve safety and independence with mobility. Start: 11/08/24 Expected End: 12/06/24 Patient will ascend and descend 2 stairs with least restrictive device and supervision in order to safely negotiate home. Start: 11/08/24 Expected End: 12/06/24 Transfers Patient will perform bed mobility with supervision in order to improve independence and prepare forout of bed mobility. Start: 11/08/24 Expected End: 12/06/24 Patient will complete functional transfer with least restrictive device with supervision in order to prepare for ambulation. Start: 11/08/24 Expected End: 12/06/24 Therapy Time Individual Co-Treatment Co-Evaluation Time In 0822 Time Out 0900 Minutes 38 Timed Code Treatment Minutes: 33 Minutes (Mod eval, 1 FA) Variance: 5 (waiting on assistance) Josh Li PT Patient's Physical Therapy Plan of Care supervision is transferred to a [facility] Physical Therapist. Goals and/or treatment plan was established in collaboration with patient/family/other representatives. [1] Past Medical History: Diagnosis Date Back pain Depression Gastritis GERD (gastroesophageal reflux disease) Hypothyroid [2] Past Surgical History: Procedure Laterality Date BACK SURGERY 2018 CHOLECYSTECTOMY 1981 COLONOSCOPY 07/2018 EGD with biopsy COLONOSCOPY 07/2018 HYSTERECTOMY 2004 JOINT REPLACEMENT Left left hip KIDNEY SURGERY Right right kideny remove, due tto cancer NEPHRECTOMY Left THYROIDECTOMY, PARTIAL TOTAL ANKLE ARTHROPLASTY Right * Jo Cottrell, PHOTO INTERN - 11/08/2024 8:52 AM EDT [facility] Respiratory Care Department Progress Note As part of the Respiratory Assessment Program (RAP), the following Respiratory Therapist evaluationhas been completed, including a chart review and clinical/physical assessment. Respiratory Therapist RAP Evaluation Guideline Points 0 1 2 3 4 Points Strongly Consider History Factor No Pulmonary conditions Stable Pulmonary condition(s) Surgery or Intervention that may impact Pulmonary system (at risk) Surgery or Intervention that is impacting Pulmonary system Active Exacerbation of Pulmonary Condition 0 Respiratory Pattern Regular, RR= 12-18 CORBETT or Increased RR= 19-24 Irregular, or RR= 25-30 SOB, talk in short sentences, or RR= 31-35 Severe SOB, accessory muscle use, one word answers, or RR>35 0 Aerosol Med(s), High Flow O2 Breath Sounds Clear Diminished in 1 lobe Diminished in <= 2 lobes Adventitious breath sounds Coarse crackles, Wheezes, or Diminished in >2 lobes 1 Aerosol Med(s), Bronchial Hygiene, Hyperinflation Cough & Sputum Strong cough, no secretion retention or production Weak cough, no secretion retention or production Weak cough, w/ production (less often than Q2hr), or secretion retention No cough, w/ secretion retention or production (less often than Q2hr) Significant secretion production (more often than Q2hr) or mucus plug 0 Aerosol Med(s), Bronchial Hygiene, Hyperinflation Level of Activity Ambulatory Ambulatory with Assist Up in chair or edge of bed (dangle) Non-ambulatory, bedridden with active ROM Completely paralyzed or without active ROM 1 Triage 5 0-2 Triage 4 3-5 Triage 3 6-10 Triage 2 11-14 Triage 1 >=15 Total 2 Triage Score = 5 TRIAGE SCORING - SUGGESTED FREQUENCIES Aerosol Therapy Bronchial Hygiene Hyperinflation Triage Score Q4h & PRN 1 Q4hWA (QID) & PRN 2 TID & PRN 3 BID & PRN 4 PRN 5 Therapy(s) Indicated Yes/No Aerosol Medication Hyperinflation Bronchial Hygiene High Flow Oxygen Flow Rates PEF (L/Sec) IVC FVC FEV1 FEV1/FVC Patient instructed and returned demonstration on use of MDI (with spacer, as appropriate) RT to enter/modify frequency of treatment order in EMR/EHR to match this RAP evaluation. Based on this RAP evaluation the following therapy is being initiated: At the following frequency: prn Comments: Thank you for involving Respiratory in the care of this patient, documented in this [facility]06-10-2025 Consult note* Lily Post PA-C - 11/18/2024 8:26 AM EDTAssociated Order(s): IP CONSULT TO GI Images from the original note were not included. Department of Internal Medicine Gastroenterology Attending Consult Note Reason for Consult: The patient was seen in consultation at the request of Dr. Herrera re: fecal occult positive. CHIEF COMPLAINT: C. Diff History Obtained From: patient and EMR HISTORY OF PRESENT ILLNESS: The patient is a 84 y.o. female with significant past medical history of GERD, hypothyroidism, depression who presented to [facility] after testing positive for C. difficile at the [facility]. She had a L2-L5 revision and decompression done on 11/04/2024. She was transferred to [facility] on 11/07/24. Upon arrival to [facility] patient was found to have a right upper lobe infiltrate, she was started on cefepime and azithromycin for pneumonia and for Dificid for recurrent C. difficile. Initial labs showed a leukocytosis of 32.6. Azithromycin discontinued on 11/08/2024. Her stay has been extended due to cost of Dificid as outpatient. Patient reported black stool and fecal occult was obtained and positive yesterday therefore GI consulted. Patient with history of C. difficile, last on 07/18/2024 at which time she was given oral vancomycin. Patient reports that since admission she has had complete resolution of her diarrhea. Hemoglobin slightly declined over admission but overall stable. 8.7 this morning. Report is that 3 days ago she had a large black bowel movement. Yesterday she had a small dark BM but she does not describe and tarry or liquid. Yesterday FOBT was obtained and positive. Patient has finished her course of Dificid. Patient reports wanting to go home today. She denies abdominal pain, nausea, vomiting. Non-smoker, quit in 2017, rare alcohol use, no illicit drug use. History of cholecystectomy and nephrectomy. No OAC or chronic NSAID use. Colonoscopy 2-3 years ago, normal per patient, unsure where she got it. No prior EGD. Allergies: Patient has no known allergies. Current Medications: Current Medications[1] Past Medical History: Active Ambulatory Problems Diagnosis Date Noted Fall at home, initial encounter 05/07/2021 Mixed incontinence 05/07/2021 Gastro-esophageal reflux disease without esophagitis 05/07/2021 Migraines 05/07/2021 Osteoporosis of lumbar spine 05/07/2021 Diarrhea 04/21/2021 Myalgia 05/07/2021 Urgency of urination 05/07/2021 Urge incontinence of urine 05/07/2021 Low back pain 05/07/2021 Other chronic pain 05/07/2021 Major depressive disorder, single episode, unspecified 05/07/2021 Atrophy of vagina 05/07/2021 Osteopenia of multiple sites 05/07/2021 Thyrotoxicosis, unspecified without thyrotoxic crisis or storm 05/07/2021 Spinal stenosis of lumbar region 05/07/2021 Anxiety associated with depression 05/07/2021 Adjustment disorder with mixed anxiety and depressed mood 05/07/2021 Postsurgical hypothyroidism 05/07/2021 Other bursitis of hip, right hip 05/07/2021 Stress incontinence in female 05/07/2021 Gastroenteritis and colitis, viral 08/06/2018 Severe malnutrition (CMS/HCC) ([facility]) 08/06/2018 Vitamin D deficiency 08/06/2018 Infection due to Norovirus species 08/06/2018 Pain in right hip 05/07/2021 Inability to walk 07/18/2024 Resolved Ambulatory Problems Diagnosis Date Noted No Resolved Ambulatory Problems Past Medical History: Diagnosis Date Back pain Depression Gastritis GERD (gastroesophageal reflux disease) Hypothyroid Past Surgical History: Social History Socioeconomic History Marital status: Spouse name: Not on file Number of children: Not on file Years of education: Not on file Highest education level: Not on file Occupational History Not on file Tobacco Use Smoking status: Former Current packs/day: 0.00 Average packs/day: 1 pack/day for 46.0 years (46.0 ttl pk-yrs) Types: Cigarettes Start date: 08/04/1970 Quit date: 08/04/2016 Years since quittin.2 Smokeless tobacco: Never Substance and Sexual Activity Alcohol use: Yes Comment: rarely Drug use: No Sexual activity: Not on file Comment: divorce Other Topics Concern Not on file Social History Narrative Not on file Social Drivers of Health Financial Resource Strain: Not on file Food Insecurity: No Food Insecurity (07/24/2024) Hunger Vital Sign Worried About Running Out of Food in the Last Year: Never true Ran Out of Food in the Last Year: Never true Transportation Needs: No Transportation Needs (11/08/2024) PRAPARE - Transportation Lack of Transportation (Medical): No Lack of Transportation (Non-Medical): No Physical Activity: Not on file Stress: Not on file Social Connections: Not on file Intimate Partner Violence: Not At Risk (11/08/2024) Humiliation, Afraid, Rape, and Kick questionnaire Fear of Current or Ex-Partner: No Emotionally Abused: No Physically Abused: No Sexually Abused: No Housing Stability: Low Risk (11/08/2024) Housing Stability Vital Sign Unable to Pay for Housing in the Last Year: No Number of Times Moved in the Last Year: 0 Homeless in the Last Year: No Family History: Family History[2] No family history colon or stomach cancer. Social History: TOBACCO: reports that she quit smoking about 8 years ago. Her smoking use included cigarettes. She started smoking about 54 years ago. She has a 46 pack- year smoking history. She has never used smokeless tobacco. ETOH: reports current alcohol use. DRUGS: reports no history of drug use. 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 Normal appetite and weight. No HANKS, visual disturbance, eye pain, jaundice, sore throat or mouth ulcers. No skin rash or itching. No CP, SOB, CORBETT, cough or wheeze. No urinary frequency, urgency, hematuria, or dysuria. No myalgia, arthralgia, or joint swelling. No weakness, numbness, or confusion. GI per HPI. No polyuria, polydipsia, heat or cold intolerance. PHYSICAL EXAM: VS: BP 128/65 (BP Location: Right arm, Patient Position: Sitting) Pulse 70 Temp 36.5 C (97.7 F)(Temporal) Resp 16 Ht 5' 0.98 (1.549 m) Wt 119 lb (54 kg) LMP (LMP Unknown) SpO2 94% BMI 22.50 kg/m Body mass index is 22.5 kg/m . Constitutional: No acute distress. Well-nourished. Frail. Head/Eyes: Pupils are equal and round; Conjunctiva are not injected; Sclera are non-icteric. ENT: Ears/nose without external abnormalities. Oral mucosa is pink and moist. Respiratory: Clear to auscultation bilaterally without any added sounds. Effort is normal Heart: Regular, Normal S1 and S2. No murmur; No added sounds. Abdomen: Normal BS, soft, non-tender, non-distended; no hepatomegaly. Extremities/Skin: No LE edema; Skin warm to touch and well perfused. Musculoskeletal: Head - normocephalic. Neck - supple Psychiatric: AAO x 3, answers appropriately, normal mood, normal affect. Non-focal. DATA: Recent blood work and relevant radiologic and endoscopic studies were reviewed and discussed with the patient. CBC: Recent Labs 11/16/24 0532 11/17/24 0343 11/18/24 0435 WBC 17.7* 16.6* 18.1* RBC 3.36* 3.13* 3.17* HGB 9.2* 8.6* 8.7* HCT 28.9* 26.6* 27.4* MCV 86.0 85.0 86.4 MCH 27.4 27.5 27.4 MCHC 31.8 32.3 31.8 RDW 16.2* 16.4* 16.5* PLT 364 341 367 MPV 11.0 11.1 11.3 CMP: Recent Labs 11/16/24 0532 11/17/24 0343 11/18/24 0435 NA 141 140 141 K 4.2 3.8 4.3 CL 109* 107 107 CO2 27 25 26 BUN 12 11 10 CREATININE 0.64 0.68 0.68 GLUCOSE 103 104 97 CALCIUM 8.2* 8.4* 8.3* Radiologic Review None pertinent. Endoscopic Review No EGD or Colonoscopy found on chart review, care everywhere, and 3M. IMPRESSION/RECOMMENDATIONS: Melena FOBT + stool Anemia- multifactorial Diarrhea- resolved, 2/2 below C. difficile colitis- Dificid course completed on 11/18/24 Hospital acquired pneumonia Recent lumbar surgery- 11/04/24 - No plans for inpatient endoscopic evaluation at this time, patient declines and would like discharge as planned, discussed reasons to return to ED/overt signs of GI bleeding - Continue medical management and supportive care per primary team - Continue to monitor H/H and transfuse per primary team - Recommend Protonix 40 mg daily The GI/Liver consult service will sign off. Please call if there are any questions, concerns or change of patient's GI condition. Thanks. [1] Current Facility-Administered Medications: acetaminophen (Tylenol) tablet 650 mg, 650 mg, Oral, q6h PRN, 650 mg at 11/09/24 1657 OR acetaminophen (Tylenol) suppository 650 mg, 650 mg, Rectal, q6h PRN, Nico Hill NP albuterol (2.5 MG/3ML) 0.083% nebulizer solution 2.5 mg, 2.5 mg, Nebulization, q2h PRN, Nico Hill NP [Held by provider] furosemide (Lasix) injection 20 mg, 20 mg, IntraVENous, BID, Nico Hill NP,20 mg at 11/09/24 0833 gabapentin (Neurontin) capsule 300 mg, 300 mg, Oral, BID, Zoltan Lauren, DO, 300 mg at 017 HYDROcodone-acetaminophen ([place]) 5-325 MG per tablet 1 tablet, 1 tablet, Oral, q4h PRN, 1 tablet at 11/17/24 0941 OR HYDROcodone-acetaminophen ([place]) 5- 325 MG per tablet 2 tablet, 2 tablet, Oral, q4h PRN, Nico Hill NP, 2 tablet at 11/18/24 0426 hydrOXYzine HCl (Atarax) tablet 10 mg, 10 mg, Oral, q6h PRN, Nico Hill NP levothyroxine (Synthroid, Levoxyl) tablet 88 mcg, 88 mcg, Oral, q24h, Nico Hill NP, 88 mcg at11/18/24 0426 naloxone (Narcan) injection 0.4 mg, 0.4 mg, IntraVENous, q5 min PRN, Nico Baileys, COMM[employer]GAN[employer] AIDE ondansetron ODT (Zofran-ODT) disintegrating tablet 4 mg, 4 mg, Oral, q8h PRN OR ondansetron (Zofran) injection 4 mg, 4 mg, IntraVENous, q6h PRN, Nico Baileys, COMMUNITY ORGANIZATION AIDE, 4 mg at 11/12/24 0926 sertraline (Zoloft) tablet 200 mg, 200 mg, Oral, Daily, Nico Storey Herington, COMMUNITY ORGANIZATION AIDE, 200 mg at 11/17/24 0942 sodium chloride 0.9 % infusion, 5-250 mL/hr, IntraVENous, PRN, Nico Storey Herington, COMMUNITY ORGANIZATION AIDE sodium chloride 0.9% (NS) flush 10 mL, 10 mL, IntraVENous, 2 times per day, Nico Storey Herington, COMMUNITY ORGANIZATION AIDE, 10 mL at 11/17/242016 sodium chloride 0.9% (NS) flush 10 mL, 10 mL, IntraVENous, PRN, Nico Baileys, COMMUNITY ORGANIZATION AIDE [2] Family History Problem Relation Name Age of Onset Liver cancer Neg Hx Stomach cancer Neg Hx Heart attack Mother Coronary artery disease Mother Colon cancer Neg Hx Stroke Mother Cancer Father unknow Cosigned by Bharati Blood MD at 11/18/2024 3:22 PM EDT [place] Phone: [phone] Consult note* Lily Post PA-C - 11/18/2024 8:26 AM EDTAssociated Order(s): IP CONSULT TO GI Images from the original note were not included. Department of Internal Medicine Gastroenterology Attending Consult Note Reason for Consult: The patient was seen in consultation at the request of Dr. Herrera re: fecal occult positive. CHIEF COMPLAINT: C. Diff History Obtained From: patient and EMR HISTORY OF PRESENT ILLNESS: The patient is a 84 y.o. female with significant past medical history of GERD, hypothyroidism, depression who presented to [facility] after testing positive for C. difficile at the [facility]. She had a L2-L5 revision and decompression done on 11/04/2024. She was transferred to [facility] on 11/07/24. Upon arrival to [facility] patient was found to have a right upper lobe infiltrate, she was started on cefepime and azithromycin for pneumonia and for Dificid for recurrent C. difficile. Initial labs showed a leukocytosis of 32.6. Azithromycin discontinued on 11/08/2024. Her stay has been extended due to cost of Dificid as outpatient. Patient reported black stool and fecal occult was obtained and positive yesterday therefore GI consulted. Patient with history of C. difficile, last on 07/18/2024 at which time she was given oral vancomycin. Patient reports that since admission she has had complete resolution of her diarrhea. Hemoglobin slightly declined over admission but overall stable. 8.7 this morning. Report is that 3 days ago she had a large black bowel movement. Yesterday she had a small dark BM but she does not describe and tarry or liquid. Yesterday FOBT was obtained and positive. Patient has finished her course of Dificid. Patient reports wanting to go home today. She denies abdominal pain, nausea, vomiting. Non-smoker, quit in 2017, rare alcohol use, no illicit drug use. History of cholecystectomy and nephrectomy. No OAC or chronic NSAID use. Colonoscopy 2-3 years ago, normal per patient, unsure where she got it. No prior EGD. Allergies: Patient has no known allergies. Current Medications: Current Medications[1] Past Medical History: Active Ambulatory Problems Diagnosis Date Noted Fall at home, initial encounter 05/07/2021 Mixed incontinence 05/07/2021 Gastro-esophageal reflux disease without esophagitis 05/07/2021 Migraines 05/07/2021 Osteoporosis of lumbar spine 05/07/2021 Diarrhea 04/21/2021 Myalgia 05/07/2021 Urgency of urination 05/07/2021 Urge incontinence of urine 05/07/2021 Low back pain 05/07/2021 Other chronic pain 05/07/2021 Major depressive disorder, single episode, unspecified 05/07/2021 Atrophy of vagina 05/07/2021 Osteopenia of multiple sites 05/07/2021 Thyrotoxicosis, unspecified without thyrotoxic crisis or storm 05/07/2021 Spinal stenosis of lumbar region 05/07/2021 Anxiety associated with depression 05/07/2021 Adjustment disorder with mixed anxiety and depressed mood 05/07/2021 Postsurgical hypothyroidism 05/07/2021 Other bursitis of hip, right hip 05/07/2021 Stress incontinence in female 05/07/2021 Gastroenteritis and colitis, viral 08/06/2018 Severe malnutrition (CMS/HCC) (HCC) 08/06/2018 Vitamin D deficiency 08/06/2018 Infection due to Norovirus species 08/06/2018 Pain in right hip 05/07/2021 Inability to walk 07/18/2024 Resolved Ambulatory Problems Diagnosis Date Noted No Resolved Ambulatory Problems Past Medical History: Diagnosis Date Back pain Depression Gastritis GERD (gastroesophageal reflux disease) Hypothyroid Past Surgical History: Social History Socioeconomic History Marital status: Spouse name: Not on file Number of children: Not on file Years of education: Not on file Highest education level: Not on file Occupational History Not on file Tobacco Use Smoking status: Former Current packs/day: 0.00 Average packs/day: 1 pack/day for 46.0 years (46.0 ttl pk-yrs) Types: Cigarettes Start date: 08/04/1970 Quit date: 08/04/2016 Years since quittin.2 Smokeless tobacco: Never Substance and Sexual Activity Alcohol use: Yes Comment: rarely Drug use: No Sexual activity: Not on file Comment: divorce Other Topics Concern Not on file Social History Narrative Not on file Social Drivers of Health Financial Resource Strain: Not on file Food Insecurity: No Food Insecurity (07/24/2024) Hunger Vital Sign Worried About Running Out of Food in the Last Year: Never true Ran Out of Food in the Last Year: Never true Transportation Needs: No Transportation Needs (11/08/2024) PRAPARE - Transportation Lack of Transportation (Medical): No Lack of Transportation (Non-Medical): No Physical Activity: Not on file Stress: Not on file Social Connections: Not on file Intimate Partner Violence: Not At Risk (11/08/2024) Humiliation, Afraid, Rape, and Kick questionnaire Fear of Current or Ex-Partner: No Emotionally Abused: No Physically Abused: No Sexually Abused: No Housing Stability: Low Risk (11/08/2024) Housing Stability Vital Sign Unable to Pay for Housing in the Last Year: No Number of Times Moved in the Last Year: 0 Homeless in the Last Year: No Family History: Family History[2] No family history colon or stomach cancer. Social History: TOBACCO: reports that she quit smoking about 8 years ago. Her smoking use included cigarettes. She started smoking about 54 years ago. She has a 46 pack- year smoking history. She has never used smokeless tobacco. ETOH: reports current alcohol use. DRUGS: reports no history of drug use. 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 Normal appetite and weight. No HANKS, visual disturbance, eye pain, jaundice, sore throat or mouth ulcers. No skin rash or itching. No CP, SOB, CORBETT, cough or wheeze. No urinary frequency, urgency, hematuria, or dysuria. No myalgia, arthralgia, or joint swelling. No weakness, numbness, or confusion. GI per HPI. No polyuria, polydipsia, heat or cold intolerance. PHYSICAL EXAM: VS: BP 128/65 (BP Location: Right arm, Patient Position: Sitting) Pulse 70 Temp 36.5 C (97.7 F)(Temporal) Resp 16 Ht 5' 0.98 (1.549 m) Wt 119 lb (54 kg) LMP (LMP Unknown) SpO2 94% BMI 22.50 kg/m Body mass index is 22.5 kg/m . Constitutional: No acute distress. Well-nourished. Frail. Head/Eyes: Pupils are equal and round; Conjunctiva are not injected; Sclera are non-icteric. ENT: Ears/nose without external abnormalities. Oral mucosa is pink and moist. Respiratory: Clear to auscultation bilaterally without any added sounds. Effort is normal Heart: Regular, Normal S1 and S2. No murmur; No added sounds. Abdomen: Normal BS, soft, non-tender, non-distended; no hepatomegaly. Extremities/Skin: No LE edema; Skin warm to touch and well perfused. Musculoskeletal: Head - normocephalic. Neck - supple Psychiatric: AAO x 3, answers appropriately, normal mood, normal affect. Non-focal. DATA: Recent blood work and relevant radiologic and endoscopic studies were reviewed and discussed with the patient. CBC: Recent Labs 11/16/24 0532 11/17/24 0343 11/18/24 0435 WBC 17.7* 16.6* 18.1* RBC 3.36* 3.13* 3.17* HGB 9.2* 8.6* 8.7* HCT 28.9* 26.6* 27.4* MCV 86.0 85.0 86.4 MCH 27.4 27.5 27.4 MCHC 31.8 32.3 31.8 RDW 16.2* 16.4* 16.5* PLT 364 341 367 MPV 11.0 11.1 11.3 CMP: Recent Labs 11/16/24 0532 11/17/24 0343 11/18/24 0435 NA 141 140 141 K 4.2 3.8 4.3 CL 109* 107 107 CO2 BUN 12 11 10 CREATININE 0.64 0.68 0.68 GLUCOSE 103 104 97 CALCIUM 8.2* 8.4* 8.3* Radiologic Review None pertinent. Endoscopic Review No EGD or Colonoscopy found on chart review, care everywhere, and 3M. IMPRESSION/RECOMMENDATIONS: Melena FOBT + stool Anemia- multifactorial Diarrhea- resolved, 2/2 below C. difficile colitis- Dificid course completed on 11/18/24 Hospital acquired pneumonia Recent lumbar surgery- 11/04/24 - No plans for inpatient endoscopic evaluation at this time, patient declines and would like discharge as planned, discussed reasons to return to ED/overt signs of GI bleeding - Continue medical management and supportive care per primary team - Continue to monitor H/H and transfuse per primary team - Recommend Protonix 40 mg daily The GI/Liver consult service will sign off. Please call if there are any questions, concerns or change of patient's GI condition. Thanks. [1] Current Facility-Administered Medications: acetaminophen (Tylenol) tablet 650 mg, 650 mg, Oral, q6h PRN, 650 mg at 11/09/24 1657 OR acetaminophen (Tylenol) suppository 650 mg, 650 mg, Rectal, q6h PRN, Nico Hill NP albuterol (2.5 MG/3ML) 0.083% nebulizer solution 2.5 mg, 2.5 mg, Nebulization, q2h PRN, Nico Hill NP [Held by provider] furosemide (Lasix) injection 20 mg, 20 mg, IntraVENous, BID, Nico Hill NP,20 mg at 11/09/24 0833 gabapentin (Neurontin) capsule 300 mg, 300 mg, Oral, BID, Zoltan Lauren DO, 300 mg at HYDROcodone-acetaminophen ([place]) 5-325 MG per tablet 1 tablet, 1 tablet, Oral, q4h PRN, 1 tablet at 11/17/24 0941 OR HYDROcodone-acetaminophen ([place]) 5- 325 MG per tablet 2 tablet, 2 tablet, Oral, q4h PRN, Nico Hill NP, 2 tablet at 11/18/24 0426 hydrOXYzine HCl (Atarax) tablet 10 mg, 10 mg, Oral, q6h PRN, Nico Hill NP levothyroxine (Synthroid, Levoxyl) tablet 88 mcg, 88 mcg, Oral, q24h, Nico Hill NP, 88 mcg at11/18/24 042 naloxone (Narcan) injection 0.4 mg, 0.4 mg, IntraVENous, q5 min PRN, Nico Hill NP ondansetron ODT (Zofran-ODT) disintegrating tablet 4 mg, 4 mg, Oral, q8h PRN OR ondansetron (Zofran) injection 4 mg, 4 mg, IntraVENous, q6h PRN, Nico Hill NP, 4 mg at 11/12/24 09 sertraline (Zoloft) tablet 200 mg, 200 mg, Oral, Daily, Nico Hill NP, 200 mg at 11/17/24 0942 sodium chloride 0.9 % infusion, 5-250 mL/hr, IntraVENous, PRN, Nico Hill NP sodium chloride 0.9% (NS) flush 10 mL, 10 mL, IntraVENous, 2 times per day, Nico Hill NP, 10 mL at 11/17/242016 sodium chloride 0.9% (NS) flush 10 mL, 10 mL, IntraVENous, PRN, Nico Hill NP [2] Family History Problem Relation Name Age of Onset Liver cancer Neg Hx Stomach cancer Neg Hx Heart attack Mother Coronary artery disease Mother Colon cancer Neg Hx Stroke Mother Cancer Father unknow Cosigned by Bharati Blood MD at 11/18/2024 3:22 PM EDT * Nancy Macedo - 11/08/2024 3:00 AM EDT Images from the original note were not included. Ortho Spine Consult Patient: Kathryn Tamez Date of : 1940 Acct: [id number] PCP: Leonardo Lyles Date of Admission: 11/07/2024 Date of Service: Pt seen/examined on 11/08/2024 Chief Complaint: C diff colitis s/p posterior fusion L2-5, revision decompression L2-4, dural defect repair on 11/04 History Of Present Illness:: This is a 84 y.o. female s/p L2-L5 revision and decompression done on 11/[address] Morrison.On review of documentation from [facility], patient was seen to have had an intraoperative dural tear which was repaired during surgery and complaining of intermittent headaches. Infectious disease was consulted and following patient over at the [facility]. On 11/06/2024, she was placed on activity as tolerated and elevated head of bed as tolerated. A.m. progress note on09/08/2024 documented that patient had been unable to report improvement in preop symptoms since shehad not been up and out of bed but at the time was denying new or worsening weakness or radicular discomfort postoperatively. Patient was alert and oriented but slow to respond. Not complaining of headache on 09/08. She began passing flatus and had a liquid bowel movement on 11/07 and was tolerating regular diet at INSPECTOR OF WEIGHTS AND MEASURES see prior to transfer. She does have a history of documented admission in July 2024 for pneumonia with sepsis complicated by C. difficile and a urine culture from September 2024 that showed Pseudomonas aeruginosa bacteuria. Currently, she states her back is painful but that the medicine does help. She states she has been able to ambulate since surgery. She denies any current headache. Denies any new saddle anesthesia, bowel or bladder incontinence or acute extremity weakness. Former smoker, occasional alcohol use, no IVDU Hx Hx from chart and/or Pt. Patient ambulation status: mild difficulty and ambulates with: cane and walker. Antiplatelets/Anticoagulation includes: none. Past Medical History: Medical History[1] Past Surgical History: Recent Surgeries in Orthopedic Surgery No cases to display Home Medications: Prior to Admission medications Medication Sig Start Date End Date Taking? Authorizing Provider acetaminophen (Tylenol Extra Strength) 500 MG tablet Take 1 tablet by mouth every 6 hours as needed. Historical Provider, famotidine (Pepcid) 20 MG tablet Take 20 mg by mouth twice a day. 04/01/24 Historical Provider, gabapentin (Neurontin) 300 MG capsule Take 300 mg by mouth 2 times daily. Historical Provider, HYDROcodone-acetaminophen (Vicodin) 10-300 MG tablet Take 1 tablet by mouth every 6 hours as needed. 07/18/23 Historical Provider, hydrOXYzine HCl (Atarax) 10 MG tablet Take 10 mg by mouth every 6 hours as needed. 03/17/24 Historical Provider, sertraline (Zoloft) 100 MG tablet Take 200 mg by mouth daily. 09/13/23 Historical Provider, SUMAtriptan (Imitrex) 50 MG tablet Take 100 mg by mouth Once as needed for migraine. 05/29/23 Historical Provider, Synthroid 88 MCG tablet Take 88 mcg by mouth Every 24 hours. 03/17/24 Historical Provider, Current Hospital Medications: Current Medications[2] Allergies: Patient has no known allergies. Social History: Social History Socioeconomic History Marital status: Spouse name: Not on file Number of children: Not on file Years of education: Not on file Highest education level: Not on file Occupational History Not on file Tobacco Use Smoking status: Some Days Current packs/day: 0.00 Average packs/day: 1 pack/day for 46.0 years (46.0 ttl pk-yrs) Types: Cigarettes Start date: 08/04/1970 Last attempt to quit: 08/04/2016 Years since quittin.2 Smokeless tobacco: Never Substance and Sexual Activity Alcohol use: Yes Comment: rarely Drug use: No Sexual activity: Not on file Comment: divorce Other Topics Concern Not on file Social History Narrative Not on file Social Drivers of Health Financial Resource Strain: Not on file Food Insecurity: No Food Insecurity (07/24/2024) Hunger Vital Sign Worried About Running Out of Food in the Last Year: Never true Ran Out of Food in the Last Year: Never true Transportation Needs: No Transportation Needs (07/24/2024) PRAPARE - Transportation Lack of Transportation (Medical): No Lack of Transportation (Non-Medical): No Physical Activity: Not on file Stress: Not on file Social Connections: Not on file Intimate Partner Violence: Not At Risk (07/24/2024) Humiliation, Afraid, Rape, and Kick questionnaire Fear of Current or Ex-Partner: No Emotionally Abused: No Physically Abused: No Sexually Abused: No Housing Stability: Low Risk (07/24/2024) Housing Stability Vital Sign Unable to Pay for Housing in the Last Year: No Number of Times Moved in the Last Year: 0 Homeless in the Last Year: No Family History: Family History[3] Further Family History is noncontributory to this injury. REVIEW OF SYSTEMS: Review of Systems - General ROS: negative for - chills, fatigue, fever, malaise or night sweats Psychological ROS: negative Ophthalmic ROS: negative ENT ROS: negative for - headaches or sore throat Hematological and Lymphatic ROS: negative for - bleeding problems or blood clots Respiratory ROS: no cough, shortness of breath, or wheezing Cardiovascular ROS: no chest pain or dyspnea on exertion Gastrointestinal ROS: negative Musculoskeletal ROS: See HPI Neurological ROS: See HPI All other systems reviewed and are negative PHYSICAL EXAM: BP 121/64 (BP Location: Left arm, Patient Position: Lying) Pulse 91 Temp 37 C (98.6 F) (Temporal) Resp 14 LMP (LMP Unknown) SpO2 93% GENERAL APPEARANCE: Awake and oriented x3. No acute distress, except appropriate to injury. MOOD AND AFFECT: Appropriate to situation GAIT AND STATION: Patient is in bed and unable to ambulate secondary to known injury. COORDINATION and BALANCE: Patient is grossly coordinated unable to ambulate secondary to known injury. Spine Exam: * Exam was limited due to pain: No Direct Spine Inspection: TTP was present in lumbar spine, within proportion for recent surgery SA EF WE EE WF GS HI RUE 4+ 4+ 5 4+ 5 4 4+ Sensation: Intact C3-T1 with normal sensation in all distributions Radial pulse: Palpable TTP in the following areas: nontender throughout extremity. Nontender throughout remainder of extremity SA EF WE EE WF GS HI LUE 4+ 4+ 5 4+ 5 4 4+ Sensation: Intact C3-T1 with normal sensation in all distributions Radial pulse: Palpable TTP in the following areas: nontender throughout extremity. Nontender throughout remainder of extremity HF KE DF EHL PF RLE 5 5 5 5 5 Sensation: Intact L2-S1 with normal sensation Pulses: DP Palpable TTP in the following areas: Nontender throughout extremity. Nontender throughout remainder of extremity Pain w Straight leg raise: No HF KE DF EHL PF LLE 5 5 5 5 5 Sensation: Intact L2-S1 with normal sensation Pulses: DP Palpable TTP in the following areas: Nontender throughout extremity. Nontender throughout remainder of extremity Pain w Straight leg raise: Yes Deep Tendon Reflexes: Right Bicep: 2+ Left Bicep: 2+ Right Brachioradialis: 1+ Left Brachioradialis: 1+ Haney: absent Right Knee: 2+ Left Knee: 2+ Right Ankle: 1+ Left Ankle: 1+ Right Ankle Clonus: absent Left Ankle Clonus: absent Babinski: equivocal Rectal Exam: Deferred, no bowel or bladder sx Labs: Recent Labs 11/07/24 0617 11/07/24 2343 WBC 32.6* 26.7* HGB 9.1* 8.7* HCT 28.0* 26.1* PLT 134* 148 Recent Labs 11/07/24 2343 NA 138 K 3.0* CL 105 CO2 22* BUN 12 CREATININE 0.64 CALCIUM 7.8* No results for input(s): INR in the last 72 hours. Recent Labs 11/07/24 0617 CRP 274.7* No results for input(s): HCG in the last 72 hours. The above labs were reviewed by me. Radiology: The following images were independently reviewed and interpreted XR: X-ray lumbar spine from 11/06/2024 ([facility]) spinal instrumentation from L2-L5 is visualized. Total of 6 pedicle screws and [address] and intact without evidence of hardware breakage, failure, or lucency surrounding the hardware. There is maintenance of lumbar lordosis without fracture, dislocation, or spondylolisthesis. There is no evidence of fracture, malposition, breakage or hardware failure of the visualized instrumentation. Bladder stimulator is also visualized on the film and there are surgical maddie in the skin of the back Radiology report reviewed. ASSESSMENT: 84 y.o. female s/p posterior fusion L2-5, revision decompression L2-4, dural defect repair on 11/04 PLAN: -Dr. Morrison aware of transfer to [facility] - No additional operative intervention indicated, no further plans for surgery - Weight-bear as tolerated bilateral lower extremities - No brace indicated - No additional imaging indicated of the spine -Activity as tolerated. Okay to elevate HOB - Okay for regular diet from ortho perspective -Neurovascular checks -Skin checks - Medical management/antibiotics per medicine/infectious disease team -Orthopaedic surgery will continue to follow. Please page ignition specialist orthopaedic resident for questions or concerns. Delilah Elizabeth MD Orthopaedic Surgery PGY-1 Epic Chat Patient was independently seen and examined by me and I independently reviewed the imaging. Agree with the clinical history, exam, assessment, and plan as described above. Nancy Macedo MD MPH PGY-3 Orthopedic Surgery 11/08/2024 6:43 AM [1] Past Medical History: Diagnosis Date Back pain Depression Gastritis GERD (gastroesophageal reflux disease) Hypothyroid [2] Current Facility-Administered Medications: acetaminophen (Tylenol) tablet 650 mg, 650 mg, Oral, q6h PRN OR acetaminophen (Tylenol) suppository 650 mg, 650 mg, Rectal, q6h PRN, Nico Baileys, COMMUNITY ORGANIZATION AIDE albuterol (2.5 MG/3ML) 0.083% nebulizer solution 2.5 mg, 2.5 mg, Nebulization, q2h PRN, Nico Baileys, COMMUNITY ORGANIZATION AIDE azithromycin (Zithromax) tablet 500 mg, 500 mg, Oral, q24h, Nico G Liz, COMMUNITY ORGANIZATION AIDE, 500 mg at 11/08/24 0138 cefepime (Maxipime) 2,000 mg in sodium chloride 0.9 % 50 mL IVPB Mini-Bag Plus, 2,000 mg, IntraVENous, q8h, Nico Rodriguezvins, COMMUNITY ORGANIZATION AIDE fidaxomicin (Dificid) tablet 200 mg, 200 mg, Oral, BID, Ross G Liz, COMMUNITY ORGANIZATION AIDE, 200 mg at 11/07/24 2215 gabapentin (Neurontin) capsule 300 mg, 300 mg, Oral, BID, Nico G Liz, COMMUNITY ORGANIZATION AIDE, 300 mg at 11/07/24 2215 HYDROcodone-acetaminophen ([place]) 5-325 MG per tablet 1 tablet, 1 tablet, Oral, q4h PRN OR HYDROcodone-acetaminophen ([place]) 5-325 MG per tablet 2 tablet, 2 tablet, Oral, q4h PRN, Nico Hill NP, 2 tablet at 11/07/242214 hydrOXYzine HCl (Atarax) tablet 10 mg, 10 mg, Oral, q6h PRN, Nico Hill NP ipratropium-albuterol (Duo-Neb) 0.5-2.5 mg/3 mL nebulizer solution 3 mL, 3 mL, Nebulization, Q4H while awake, Nico Hill NP levothyroxine (Synthroid, Levoxyl) tablet 88 mcg, 88 mcg, Oral, q24h, Nico Hill NP magnesium sulfate IVPB premix 2,000 mg, 2,000 mg, IntraVENous, Once, Nico Hill NP, Last Rate:25 mL/hr at 11/08/24132, 2,000 mg at 11/08/24132 naloxone (Narcan) injection 0.4 mg, 0.4 mg, IntraVENous, q5 min PRN, Nico Hill NP ondansetron ODT (Zofran-ODT) disintegrating tablet 4 mg, 4 mg, Oral, q8h PRN OR ondansetron (Zofran) injection 4 mg, 4 mg, IntraVENous, q6h PRN, Nico Hill NP potassium chloride 40 mEq in NS 500 mL IVPB (premix), 40 mEq, IntraVENous, Once, Nico Hill NP, Last Rate: 125 mL/hr at 11/08/24132, 40 mEq at 11/08/24132 sertraline (Zoloft) tablet 200 mg, 200 mg, Oral, Daily, Nico Hill NP sodium chloride 0.9 % infusion, 5-250 mL/hr, IntraVENous, PRN, Nico Hill NP sodium chloride 0.9% (NS) flush 10 mL, 10 mL, IntraVENous, 2 times per day, Nico Hill NP, 10 mL at 11/07/242217 sodium chloride 0.9% (NS) flush 10 mL, 10 mL, IntraVENous, PRN, Nico Hill NP [3] Family History Problem Relation Name Age of Onset Liver cancer Neg Hx Stomach cancer Neg Hx Heart attack Mother Coronary artery disease Mother Colon cancer Neg Hx Stroke Mother Cancer Father unknow Cosigned by Cali Turpin MD at 11/12/2024 11:29 AM EDT documented in this [facility]06-10-2025 Nurse Note* Leslie Hernandez RN - 11/18/2024 6:54 AM EDT Wound Care consulted for Pressure Injury Prevention. Pt's Wing= 20, pt is no longer at risk at this time. Skin Care Precaution order set in place. Dietitian consult in place. PT consult in place. Will continue to follow peripherally. Please vocera or secure chat message with any questions. Myriam Hernandez RN, [facility] [id number] Note* Home Care - Vannessa Ryder RN - 11/17/2024 2:06 PM EDT Discussed in rounds this AM that plan was [facility], but now plan has changed to home with home care. Attempted to reach pt in room, no answer. Attempted to reach pt's daughter, no answer, left message. Awaiting response. Will follow-up. [facility] [id number] Note* Home Care - Vannessa Ryder RN - 11/17/2024 2:06 PM EDT Discussed in rounds this AM that plan was [facility], but now plan has changed to home with home care. Attempted to reach pt in room, no answer. Attempted to reach pt's daughter, no answer, left message. Awaiting response. Will follow-up. [id number] Note* Home Care - Vannessa Ryder RN - 11/17/2024 2:04 PM EDT Start PACC Note Home Health Referral Educated patient and daughter on Home Care and services available. Patient offered choice of available HHC and agreeable to SN/PT services with [facility]. Care Types: None Isolation Precautions: Enhanced Contact Social Determinates of Health: Tobacco Use: Medium Risk (11/13/2024) Patient History Smoking Tobacco Use: Former Smokeless Tobacco Use: Never Passive Exposure: Not on file Social History Substance and Sexual Activity Alcohol Use Yes Comment: rarely Social History Substance and Sexual Activity Drug Use No Does the patient have any financial resource strain? No Does the patient have any food insecurities? No Does the patient have any housing instabilities? No If any of the above is noted as yes - consider a PRINCIPAL ARCHITECT evaluation once the patient returns home. START PATIENT REGISTRATION INFORMATION Order Information Order Signing Physician: Justus Herrera MD Service Ordered RN ?: Yes Service Ordered PT ?: Yes Service Ordered OT ?: No Service Ordered ST ?: No Service Ordered PRINCIPAL ARCHITECT?:No Service Ordered EXPERIENCE DESIGN DIRECTOR?: No Following Physician: Leonardo Lyles Following Physician Overseeing Physician: Leonardo Lyles (Required for Residents only) Agreeable to Follow? Yes Date/Time of Call 11/17/24 2:04 PM, Spoke with: Dena at Leonardo Lyles's office Care Coordination Same Day SOC?: No Primary Care Physician: Leonardo Lyles Primary Care Physician Primary Care Physician Address: [address] [place] [address] / [facility]PLACED [facility] [id number] Visit Instructions: N/A Service Discharge Location Type: Home with Home Care Service Facility Name: N/A Service Floor Facility: N/A Service Room No: N/A Demographics Patient Last Name: aDshawn Patient First Name: Kathryn Language/Communication Barrier: n/a Service Address: [address] Service City: [facility] ST: [place] Service ZIP: [address] Service (home) Other phone numbers: Telephone Information: Emergency Contact: Extended Emergency Contact Information Primary Emergency Contact: Hyun Purcell Mobile Relation: Daughter Admission Information Admit Date: 11/07/2024 Patient status at discharge: Inpatient Admitting Diagnosis: Colitis due to Clostridioides difficile [A04.72] Caregiver Information Caregiver First Name: Hyun Caregiver Last Name: Jazzy Caregiver Relationship to Patient: daughter Caregiver Caregiver Notes: N/A [email or web address] List [facility]: [employer] TECH - NEXT DAY REQUEST Requests Next Available SOC/JERRY END PATIENT REGISTRATION INFORMATION Pt Home Health goal home COVID Status 1. Do you have any upper respiratory symptoms (cough, SOB, Fever)? No 2. Have you been exposed to anyone with COVID-19 Virus? No Answer only if pending or positive for COVID-19? 1. Agreeable to wear PPE at each visit? No 2. Is the hospital supplying them with PPE upon Discharge? No Start PACC Summary General Report/ Additional Comments This is a 84 y.o. female s/p L2-L5 revision and decompression done on 11/[address] Morrison.On reviewof documentation from [facility], patient was seen to have had an intraoperative dural tear which was repaired during surgery and complaining of intermittent headaches. She began passing flatus and had a liquid bowel movement on 11/07 and was tolerating regular diet. She was recently treated forc-diff in September with course of PO vancomycin. Due to diarrhea, stool tested again and positive again (C-diff) so pt was transferred to [facility]. Upon arrival, pt hypoxic in the 80s on RA and did admit to some sob and cough. CXR with RUL infiltrate. Pt was admitted, started on cefepime/azithro for pneumonia and fidaxomycin for recurrent c-diff. Labs showed initial leukocytosis of 32.6. Diarrhea and leukocytosis improved with treatment. Legionella/strep negative. Azithromycin discontinued on 11/08. Continued to have diarrhea, poor appetite and poor mobility. Nation maintained. Added nutritional supplements. Discontinued lasix due to excessive diarrhea and risk of dehydration. Respiratory status improved. No productive cough since admission so sputum labs cancelled. Echocardiogram unremarkable. Shehad an extended stay due to cost of Dificid with improvement in symptoms. PT/OT recommended SNF - patient reports good suppot at home and politely declined and asked for HHC. She reported black stool- fecal occult POS on 11/17 and GI was consulted. Agreeable to SN/PT/eval for OT with [facility]. Denied DME needs. Pt finished course of dificid prior to dc. Discharge Date: pending Referral Source-PACC: (Hospital/Unit): [facility] / H-[id number]/H-[id number] A End PACC Note [facility] [id number] Note* Home Care - Vannessa Ryder RN - 11/17/2024 2:04 PM EDT Start PACC Note Home Health Referral Educated patient and daughter on Home Care and services available. Patient offered choice of available HHC and agreeable to SN/PT services with [facility]. Care Types: None Isolation Precautions: Enhanced Contact Social Determinates of Health: Tobacco Use: Medium Risk (11/13/2024) Patient History Smoking Tobacco Use: Former Smokeless Tobacco Use: Never Passive Exposure: Not on file Social History Substance and Sexual Activity Alcohol Use Yes Comment: rarely Social History Substance and Sexual Activity Drug Use No Does the patient have any financial resource strain? No Does the patient have any food insecurities? No Does the patient have any housing instabilities? No If any of the above is noted as yes - consider a PRINCIPAL ARCHITECT evaluation once the patient returns home. START PATIENT REGISTRATION INFORMATION Order Information Order Signing Physician: Justus Herrera MD Service Ordered RN ?: Yes Service Ordered PT ?: Yes Service Ordered OT ?: No Service Ordered ST ?: No Service Ordered PRINCIPAL ARCHITECT?:No Service Ordered EXPERIENCE DESIGN DIRECTOR?: No Following Physician: Leonardo Lyles Following Physician Overseeing Physician: Leonardo Lyles (Required for Residents only) Agreeable to Follow? Yes Date/Time of Call 11/17/24 2:04 PM, Spoke with: Dena at Leonardo Lyles's office Care Coordination Same Day SOC?: No Primary Care Physician: Leonardo Lyles Primary Care Physician Primary Care Physician Address: [address] [facility] / REPLACED [facility] [id number] Visit Instructions: N/A Service Discharge Location Type: Home with Home Care Service Facility Name: N/A Service Floor Facility: N/A Service Room No: N/A Demographics Patient Last Name: Dashawn Patient First Name: Kathryn Language/Communication Barrier: n/a Service Address: [address] [place] [address] Service City: [facility] ST: [place] Service [place]IP: [address] Service (home) Other phone numbers: Telephone Information: Emergency Contact: Extended Emergency Contact Information Primary Emergency Contact: Hyun Purcell Mobile Relation: Daughter Admission Information Admit Date: 11/07/2024 Patient status at discharge: Inpatient Admitting Diagnosis: Colitis due to Clostridioides difficile [A04.72] Caregiver Information Caregiver First Name: Hyun Caregiver Last Name: Jazzy Caregiver Relationship to Patient: daughter Caregiver Caregiver Notes: N/A [employer] List [facility]: ImmuVen TECH - NEXT DAY REQUEST Requests Next Available SOC/JERRY END PATIENT REGISTRATION INFORMATION Pt Home Health goal home COVID Status 1. Do you have any upper respiratory symptoms (cough, SOB, Fever)? No 2. Have you been exposed to anyone with COVID-19 Virus? No Answer only if pending or positive for COVID-19? 1. Agreeable to wear PPE at each visit? No 2. Is the hospital supplying them with PPE upon Discharge? No Start PACC Summary General Report/ Additional Comments This is a 84 y.o. female s/p L2-L5 revision and decompression done on 11/[address] Morrison.On reviewof documentation from [facility], patient was seen to have had an intraoperative dural tear which was repaired during surgery and complaining of intermittent headaches. She began passing flatus and had a liquid bowel movement on 11/07 and was tolerating regular diet. She was recently treated forc-diff in September with course of PO vancomycin. Due to diarrhea, stool tested again and positive again (C-diff) so pt was transferred to [facility]. Upon arrival, pt hypoxic in the 80s on RA and did admit to some sob and cough. CXR with RUL infiltrate. Pt was admitted, started on cefepime/azithro for pneumonia and fidaxomycin for recurrent c-diff. Labs showed initial leukocytosis of 32.6. Diarrhea and leukocytosis improved with treatment. Legionella/strep negative. Azithromycin discontinued on 11/08. Continued to have diarrhea, poor appetite and poor mobility. Nation maintained. Added nutritional supplements. Discontinued lasix due to excessive diarrhea and risk of dehydration. Respiratory status improved. No productive cough since admission so sputum labs cancelled. Echocardiogram unremarkable. Shehad an extended stay due to cost of Dificid with improvement in symptoms. PT/OT recommended SNF - patient reports good suppot at home and politely declined and asked for HHC. She reported black stool- fecal occult POS on 11/17 and GI was consulted. Agreeable to SN/PT/yogesh for OT with [facility]. Denied DME needs. Pt finished course of dificid prior to dc. Discharge Date: pending Referral Source-PACC: (Hospital/Unit): [facility] / H-[id number]/H-[id number] A End PACC Note [facility] [id number] [facility]06-09-2025 Note* Care Coordination - Pepper Boyer - 11/17/2024 7:57 AM EDT Updated placed to [facility] via [facility] per TCC request. [facility] [id number] Note* Care Coordination - Pepper Boyer - 11/17/2024 7:57 AM EDT Updated placed to [facility] via [facility]port per TCC request. [facility] [id number] Note* Care Coordination - Nicki Warner RN - 11/17/2024 7:45 AM EDT Care Management Progress Note 11/17/24 0744 Rapid Rounds Attendance Seo Manager Planned Discharge Disposition SNF ([facility]) Today we still await Other (comment);Facility pre-cert Additional Comments: completion of Dificid [facility] requesting updates via [facility]Port to start authorization; SERVICE WRITER ADVISOR tasked to send. CM will continue to follow. Addendum: Per Dr Herrera, Ilya completed and patient is medically stable for discharge, and would like togo home instead of SNF. Spoke with patient, wants to return home with HC-daughter will be staying with her for 2 weeks. [facility] aware and is following. [facility] SNF aware of DCP home instead of placement. Patient will check with daughter to arrange transportiation home-no current discharge orders. CM will continue to follow. Addendum: Discharge order placed. Patient's daughter will provide transportation for discharge home tomorrow. [facility] [id number] Note* Care Coordination - Nicki Warner RN - 11/17/2024 7:45 AM EDT Care Management Progress Note 11/17/24 0744 Rapid Rounds Attendance Seo Manager Planned Discharge Disposition SNF ([facility]) Today we still await Other (comment);Facility pre-cert Additional Comments: completion of Dificid [facility] requesting updates via CarePort to start authorization; SERVICE WRITER ADVISOR tasked to send. CM will continue to follow. Addendum: Per Dr Herrera, Shawnd completed and patient is medically stable for discharge, and would like togo home instead of SNF. Spoke with patient, wants to return home with HC-daughter will be staying with her for 2 weeks. STRONG aware and is following. [facility] SNF aware of DCP home instead of placement. Patient will check with daughter to arrange transportiation home-no current discharge orders. CM will continue to follow. Addendum: Discharge order placed. Patient's daughter will provide transportation for discharge home tomorrow. [facility] [id number] Plan of care note* Care Plan - Keren Jenkins RN - 11/17/2024 5:40 AM EDT Problem: Potential for Compromised Skin Integrity Goal: Skin Integrity is Maintained or Improved Outcome: Progressing Goal: Nutritional status is improving Outcome: Progressing Problem: Problem Interventions Goal: Assess Nutritional Intake Outcome: Progressing [facility] HospitalUieqdh07-44-9828 Plan of care note* Care Plan - Alisson Murillo RN - 11/16/2024 5:12 PM EDT Problem: Knowledge Deficit Goal: Patient/family/caregiver demonstrates understanding of disease process, treatment plan, medications, and discharge instructions Outcome: Progressing Problem: Potential for Compromised Skin Integrity Goal: Skin Integrity is Maintained or Improved Outcome: Progressing Goal: Nutritional status is improving Outcome: Progressing Problem: Urinary Incontinence Goal: Perineal skin integrity is maintained or improved Outcome: Progressing Problem: Problem Interventions Goal: Assess Nutritional Intake Outcome: Progressing [facility] HospitalVcodyb15-50-0645 Plan of care note* Care Plan - Cheri Simon RN - 11/16/2024 1:51 AM EDT Problem: Knowledge Deficit Goal: Patient/family/caregiver demonstrates understanding of disease process, treatment plan, medications, and discharge instructions Outcome: Progressing Problem: Potential for Compromised Skin Integrity Goal: Skin Integrity is Maintained or Improved Outcome: Progressing Goal: Nutritional status is improving Outcome: Progressing Problem: Urinary Incontinence Goal: Perineal skin integrity is maintained or improved Outcome: Progressing Problem: Problem Interventions Goal: Assess Nutritional Intake Outcome: Progressing [facility] HospitalEbuadv37-08-4103 NoteProblem: Potential for Compromised Skin Integrity Goal: Skin Integrity is Maintained or Improved Outcome: Progressing Goal: Nutritional status is improving [facility] Plan of care note* Care Plan - Matteo Klein RN - 11/15/2024 1:09 PM EDT Problem: Potential for Compromised Skin Integrity Goal: Skin Integrity is Maintained or Improved Outcome: Progressing Goal: Nutritional status is improving Outcome: Progressing [facility] HospitalTlhvbj06-07-7685 Plan of care note* Care Plan - Alice Granado RN - 11/14/2024 10:32 PM EDT Problem: Knowledge Deficit Goal: Patient/family/caregiver demonstrates understanding of disease process, treatment plan, medications, and discharge instructions Outcome: Progressing Problem: Potential for Compromised Skin Integrity Goal: Skin Integrity is Maintained or Improved Outcome: Progressing Goal: Nutritional status is improving Outcome: Progressing Problem: Urinary Incontinence Goal: Perineal skin integrity is maintained or improved Outcome: Progressing Problem: Problem Interventions Goal: Assess Nutritional Intake Outcome: Progressing [facility] HospitalRikise34-25-1698 Plan of care note* Care Plan - Matteo Klein RN - 11/14/2024 1:09 PM EDT Problem: Knowledge Deficit Goal: Patient/family/caregiver demonstrates understanding of disease process, treatment plan, medications, and discharge instructions Outcome: Progressing Problem: Potential for Compromised Skin Integrity Goal: Skin Integrity is Maintained or Improved Outcome: Progressing Goal: Nutritional status is improving Outcome: Progressing [facility] HospitalJknmlz48-62-8807 Note* Care Coordination - Nicki Warner RN - 11/14/2024 9:07 AM EDT Care Management Progress Note 11/14/24 0737 Rapid Rounds Attendance Seo Manager Planned Discharge Disposition Other (TBD, [facility] vs [facility]) Today we still await Administering IV medications;Post-discharge arrangement completion (comment);Other (comment) Additional Comments: Awaiting [facility] ability to accept, O2 wean S/P previous lumbar decopression 10/2024, returned for cdiff and pneumonia. Currently on O2 NL, per Dr Sharon foreman as appropriate, IV antibiotics until 11/14/24 and PO fidaxomicin for 10 days. Lives at home alone. DCP [facility], awaiting ability to accept. Patient is also interested in [facility] liaison following. CM will continue to follow. Addendum: [facility] unable to accept until 10 day completion of Dificid. Out of pocket expense $977 per Meds to Beds, informed patient who is unable to cover this cost. Discussed with Dr Herrera via securechat; plan to complete Dificid before discharge. Patient and facility aware. [facility] HospitalYbdqst61-20-0704 Note* Care Coordination - Nicki Warner RN - 11/14/2024 9:07 AM EDT Care Management Progress Note 11/14/24 0737 Rapid Rounds Attendance Seo Manager Planned Discharge Disposition Other (TBD, [facility] vs [facility]) Today we still await Administering IV medications;Post-discharge arrangement completion (comment);Other (comment) Additional Comments: Awaiting [facility] ability to accept, O2 wean S/P previous lumbar decopression 10/2024, returned for cdiff and pneumonia. Currently on O2 NL, per Dr Herrera wean as appropriate, IV antibiotics until 11/14/24 and PO fidaxomicin for 10 days. Lives at home alone. DCP [facility], awaiting ability to accept. Patient is also interested in [facility] liaison following. CM will continue to follow. Addendum: [facility] unable to accept until 10 day completion of Dificid. Out of pocket expense $977 per Meds to Beds, informed patient who is unable to cover this cost. Discussed with Dr Herrera via securechat; plan to complete Dificid before discharge. Patient and facility aware. [facility] HospitalPlhstr98-60-5804 Plan of care note* Care Plan - Alice Granado RN - 11/14/2024 1:18 AM EDT Problem: Knowledge Deficit Goal: Patient/family/caregiver demonstrates understanding of disease process, treatment plan, medications, and discharge instructions Outcome: Progressing Problem: Potential for Compromised Skin Integrity Goal: Skin Integrity is Maintained or Improved Outcome: Progressing Goal: Nutritional status is improving Outcome: Progressing Problem: Urinary Incontinence Goal: Perineal skin integrity is maintained or improved Outcome: Progressing Problem: Problem Interventions Goal: Assess Nutritional Intake Outcome: Progressing [facility] HospitalRyqgdt07-58-9100 Plan of care note* Care Plan - Ness Hill RN - 11/13/2024 5:03 PM EDT Problem: Knowledge Deficit Goal: Patient/family/caregiver demonstrates understanding of disease process, treatment plan, medications, and discharge instructions Outcome: Progressing Problem: Potential for Compromised Skin Integrity Goal: Skin Integrity is Maintained or Improved Outcome: Progressing Goal: Nutritional status is improving Outcome: Progressing Problem: Urinary Incontinence Goal: Perineal skin integrity is maintained or improved Outcome: Progressing Problem: Problem Interventions Goal: Assess Nutritional Intake Outcome: Progressing [facility] HospitalVdpics76-41-6752 Nurse Note* Cheri Simon RN - 11/13/2024 3:41 AM EDT Patient is refusing morning blood/lab draw. [facility] HospitalVphscj78-95-5959 Plan of care note* Care Plan - Cheri Simon RN - 11/13/2024 3:40 AM EDT Problem: Knowledge Deficit Goal: Patient/family/caregiver demonstrates understanding of disease process, treatment plan, medications, and discharge instructions Outcome: Progressing Problem: Potential for Compromised Skin Integrity Goal: Skin Integrity is Maintained or Improved Outcome: Progressing Goal: Nutritional status is improving Outcome: Progressing Problem: Urinary Incontinence Goal: Perineal skin integrity is maintained or improved Outcome: Progressing Problem: Problem Interventions Goal: Assess Nutritional Intake Outcome: Progressing [facility] HospitalAblftr87-36-3669 Plan of care note* Care Plan - Ness Hill RN - 11/12/2024 5:33 PM EDT Problem: Knowledge Deficit Goal: Patient/family/caregiver demonstrates understanding of disease process, treatment plan, medications, and discharge instructions Outcome: Progressing Problem: Potential for Compromised Skin Integrity Goal: Skin Integrity is Maintained or Improved Outcome: Progressing Goal: Nutritional status is improving Outcome: Progressing Problem: Urinary Incontinence Goal: Perineal skin integrity is maintained or improved Outcome: Progressing Problem: Problem Interventions Goal: Assess Nutritional Intake Outcome: Progressing [facility] HospitalTtxmwg17-98-8808 Note* Care Coordination - Pepper Boyer - 11/12/2024 1:03 PM EDT Celia FERRER placed to [facility] TCU via Careport per TCC request. [facility] HospitalVsrtjl29-74-2050 Note* Care Coordination - Pepper Boyer - 11/12/2024 1:03 PM EDT Celia FERRER placed to [facility] TCU via Careport per TCC request. [facility] HospitalPlsbby23-73-4940 Note* Care Coordination - Vikki Garrison RN - 11/12/2024 12:49 PM EDT [facility] TCU requested patient home med list. SERVICE WRITER ADVISOR tasked to send home med list. TCC to assist and follow as needed. [facility] HospitalQkfhji12-94-1459 Note* Care Coordination - Vikki Garrison RN - 11/12/2024 12:49 PM EDT [facility] TCU requested patient home med list. SERVICE WRITER ADVISOR tasked to send home med list. TCC to assist and follow as needed. [facility] HospitalPfvjrx07-90-4118 Note* Home Care - Vannessa Ryder RN - 11/12/2024 12:25 PM EDT TCC spoke with pt/daughter, updated HCL that plan is now SNF. Home care signing off at this time, please re-consult if dcp changes. [facility] HospitalLoewmy67-62-7000 Note* Home Care - Vannessa Ryder RN - 11/12/2024 12:25 PM EDT TCC spoke with pt/daughter, updated HCL that plan is now SNF. Home care signing off at this time, please re-consult if dcp changes. [facility] HospitalVgjvtx33-94-0653 Note* Care Coordination - Pepper Boyer - 11/12/2024 11:54 AM EDT [facility] TCC request. Await review and response regarding ability to accept. TCC notified. [facility] HospitalZadqbx91-57-1270 Note* Care Coordination - Pepper Boyer - 11/12/2024 11:54 AM EDT [facility] TCC request. Await review and response regarding ability to accept. TCC notified. [facility] HospitalCogfmf36-84-2925 NoteReferral placed to SNF [facility] SNF via Careport per TCC request. Await review and response regarding ability to accept. TCC notified. [facility]06-04-2025 Note* Care Coordination - Vikki Garrison RN - 11/12/2024 11:49 AM EDT TCC received call from Hyun, patient daughter and discussed discharge planning. Hyun is in agreement that patient is not able to go home safely. Hyun feels her mom is a bit confused. TCC reviewed patient snf choice list with Hyun. Hynu is agreeable to make a referral to [facility]. SERVICE WRITER ADVISOR tasked to make a referral to [facility]. TCC to assist and follow as needed. [facility] HospitalOsgbdc64-62-8401 Note* Care Coordination - Vikki Garrison RN - 11/12/2024 11:49 AM EDT TCC received call from Hyun, patient daughter and discussed discharge planning. Hyun is in agreement that patient is not able to go home safely. Hyun feels her mom is a bit confused. TCC reviewed patient snf choice list with Hyun. Hyun is agreeable to make a referral to [facility] snf. SERVICE WRITER ADVISOR tasked to make a referral to [facility] snf. TCC to assist and follow as needed. [facility] HospitalJscmvx59-89-2508 Note* Care Coordination - Vikki Garrison RN - 11/12/2024 11:24 AM EDT Per RN in rounds patient is an assist to move in bed. clinical science liaison Kimberlee spoke with Hyun yesterday and daughter was in agreement that short term snf is a safer option. Hyun to discuss with mom.TCC spoke with Dr. Herrera and he was in agreement with snf. TCC placed call to daughter Hyun regarding discharge planning for her mom. TCC left message. TCC to assist and follow as needed. [facility] [id number] Note* Care Coordination - Vikki Garrison RN - 11/12/2024 11:24 AM EDT Per RN in rounds patient is an assist to move in bed. clinical science liaison Kimberlee spoke with Hyun yesterday and daughter was in agreement that short term snf is a safer option. Hyun to discuss with mom.TCC spoke with Dr. Herrera and he was in agreement with snf. TCC placed call to daughter Hyun regarding discharge planning for her mom. TCC left message. TCC to assist and follow as needed. [facility] [id number] Plan of care note* Care Plan - Cheri Simon RN - 11/12/2024 1:18 AM EDT Problem: Knowledge Deficit Goal: Patient/family/caregiver demonstrates understanding of disease process, treatment plan, medications, and discharge instructions Outcome: Progressing Problem: Potential for Compromised Skin Integrity Goal: Skin Integrity is Maintained or Improved Outcome: Progressing Goal: Nutritional status is improving Outcome: Progressing Problem: Urinary Incontinence Goal: Perineal skin integrity is maintained or improved Outcome: Progressing Problem: Problem Interventions Goal: Assess Nutritional Intake Outcome: Progressing [facility] HospitalZemqfm24-10-1153 Plan of care note* Care Plan - Aris Davenport RN - 11/11/2024 4:02 PM EDT Patient continues to make attempt at eating more, needs encouragement likes sweets. Refusing blood work Mds aware. [facility] HospitalKkudly94-18-3674 Note* Home Care - Vannessa Ryder RN - 11/11/2024 3:20 PM EDT Tasked by [facility] to set up home care, as pt was agreeable to home care, but did not want SNF placement. Pt did not answer room phone, but was able to reach daughter listed as emergency contact and noted to be available to help pt at home. She plans to talk with pt later today or tomorrow and encourage her to consider short-term placement d/t her currently level of weakness, in order to get stronger prior to going home. TCC updated, Sheet Finisher following case for Discharge Needs. [facility] HospitalKfenup70-97-1532 Note* Home Care - Vannessa Ryder RN - 11/11/2024 3:20 PM EDT Tasked by TCC to set up home care, as pt was agreeable to home care, but did not want SNF placement. Pt did not answer room phone, but was able to reach daughter listed as emergency contact and noted to be available to help pt at home. She plans to talk with pt later today or tomorrow and encourage her to consider short-term placement d/t her currently level of weakness, in order to get stronger prior to going home. TCC updated, Sheet Finisher following case for Discharge Needs. [facility] HospitalJqdart77-62-4434 Note* Care Coordination - Aurora Sheth RN - 11/11/2024 10:52 AM EDT CM following, chart reviewed. Noted PT recommendation for SNF and OT eval pending. Updated on patient by her nurse during daily rounds. Met at bedside with patient, introduced self and role. Discussed with patient SNF recommendation. Patient reports she went to a SNF in [place] years ago and cannot recall its name. Patient reportsshe recently moved to a [facility] [place] in [place] and it is equipped for her needs includinggrab bars. She is unsure about SNF at this time. CM discussed with patient and also provided optionof home with home therapies. Offered to provide list of SNF's to her for review-she declined at this time. She asked for time to think about this. CM encouraged her to discuss with her family/supports and CM will follow up with her this afternoon. Patient agreeable. CM requested OT see today to assist patient with decision making. 1507-Met at bedside with patient to follow-up on SNF v [facility]. Patient spoke with her daughter and sheprefers to discharge to home. Reports she will have her daughter to help her and is agreeable to home care. CM updated [facility] Liaison and Dr. Herrera. Assigned CM will continue to follow. [facility] HospitalNpijip34-25-2803 Note* Care Coordination - Aurora Sheth RN - 11/11/2024 10:52 AM EDT CM following, chart reviewed. Noted PT recommendation for SNF and OT eval pending. Updated on patient by her nurse during daily rounds. Met at bedside with patient, introduced self and role. Discussed with patient SNF recommendation. Patient reports she went to a SNF in [place] years ago and cannot recall its name. Patient iram recently moved to a [facility] complex in [place] and it is equipped for her needs includinggrab bars. She is unsure about SNF at this time. CM discussed with patient and also provided optionof home with home therapies. Offered to provide list of SNF's to her for review-she declined at this time. She asked for time to think about this. CM encouraged her to discuss with her family/supports and CM will follow up with her this afternoon. Patient agreeable. CM requested OT see today to assist patient with decision making. 1507-Met at bedside with patient to follow-up on SNF v [facility]. Patient spoke with her daughter and sheprefers to discharge to home. Reports she will have her daughter to help her and is agreeable to home care. CM updated [facility] Liaison and Dr. Herrera. Assigned CM will continue to follow. [facility] HospitalMpvlcy82-33-6012 Plan of care note* Care Plan - Sacha Medina RN - 11/10/2024 8:11 PM EDT Problem: Knowledge Deficit Goal: Patient/family/caregiver demonstrates understanding of disease process, treatment plan, medications, and discharge instructions Outcome: Progressing Problem: Potential for Compromised Skin Integrity Goal: Skin Integrity is Maintained or Improved Outcome: Progressing [facility] HospitalXhuute41-24-6969 Plan of care note* Care Plan - Aris Davenport RN - 11/10/2024 3:24 PM EDT Patient still with loose stools from C-Diff, worked with therapy. Complains of pain and weakness. Would benefit from placement for rehab. [facility] HospitalVcdscp62-15-1825 Nurse Note* Nancy Fisher RN - 11/10/2024 1:47 AM EDT Patient refusing any more blood draws at this time, as she is a very hard stick and has had to be poked many times for Ivs and blood draws. Doctor has been notified and was okay with holding off on any more blood draws at this time. [facility] HospitalPqaued73-73-0322 Plan of care note* Care Plan - Nancy Fisher RN - 11/09/2024 11:17 PM EDT Problem: Knowledge Deficit Goal: Patient/family/caregiver demonstrates understanding of disease process, treatment plan, medications, and discharge instructions Outcome: Progressing Problem: Potential for Compromised Skin Integrity Goal: Skin Integrity is Maintained or Improved Outcome: Progressing Goal: Nutritional status is improving Outcome: Progressing Problem: Urinary Incontinence Goal: Perineal skin integrity is maintained or improved Outcome: Progressing [facility] HospitalAeagbg82-53-8461 Note* Care Coordination - Kiesha Patrick RN - 11/09/2024 3:19 PM EDT Care Management Progress Note 11/09/24 1518 Rapid Rounds Attendance Seo Manager Planned Discharge Disposition (TBD) From Home alone Therapy recommending SNF Confirmed with Attempted to speak with patient over the phone and discuss discharge planning, no answer X2 Today we still await Post-discharge arrangement completion (need to discuss with patient) Symptomatic control Patient/caregiver facility choice/Facility pre-cert (if SNF is chosen) Clinical stability Attending completion of discharge workflow Chart reviewed. Patient currently unavailable/off unit. Will try again as time allows to discuss discharge planning. regional facilities manager will continue to follow for transitional care needs and discharge planning. Length of Stay (Days): 2 GMLOS: No GMLOS Documented [facility] [id number] Note* Care Coordination - Kiesha Patrick RN - 11/09/2024 3:19 PM EDT Care Management Progress Note 11/09/24 1518 Rapid Rounds Attendance Seo Manager Planned Discharge Disposition (TBD) From Home alone Therapy recommending SNF Confirmed with Attempted to speak with patient over the phone and discuss discharge planning, no answer X2 Today we still await Post-discharge arrangement completion (need to discuss with patient) Symptomatic control Patient/caregiver facility choice/Facility pre-cert (if SNF is chosen) Clinical stability Attending completion of discharge workflow Chart reviewed. Patient currently unavailable/off unit. Will try again as time allows to discuss discharge planning. regional facilities manager will continue to follow for transitional care needs and discharge planning. Length of Stay (Days): 2 GMLOS: No GMLOS Documented [facility] HospitalTiofkp10-52-1490 Plan of care note* Care Plan - Nancy Fisher RN - 11/09/2024 2:16 AM EDT Problem: Knowledge Deficit Goal: Patient/family/caregiver demonstrates understanding of disease process, treatment plan, medications, and discharge instructions Outcome: Progressing Problem: Potential for Compromised Skin Integrity Goal: Skin Integrity is Maintained or Improved Outcome: Progressing Goal: Nutritional status is improving Outcome: Progressing Problem: Urinary Incontinence Goal: Perineal skin integrity is maintained or improved Outcome: Progressing [facility] HospitalUhjwtq63-59-9395 Hospital Discharge instructions* Discharge Instructions* Georgia Greco MD - 11/08/2024 8:46 PM EDT DISCHARGE INSTRUCTIONS LUMBAR DECOMPRESSION/LAMINECTOMY Your surgeon has performed an operation on your lumbar spine (low back) to relieve pressure on one or more nerves. Many times, patients feel better immediately after surgery and can overdo it. Evenif you feel well, it is important that you follow these activity guidelines. If you do not let yourback heal properly from the surgery, you can increase the chance of experiencing a recurrent disc herniation and return of your symptoms. The following are instructions to help in your recovery once you have been discharged from the hospital. INCISION: Please make sure to check around your bandage at least twice daily for signs and symptoms of infection: ALWAYS wash your hands before touching your incision or the area surrounding it You do not have any sutures that need to be removed. You may have Steri-Strips, which will begin to peel away within 5-7 days You may remove the outer dressing at 7 days post-operatively There will be surgical glue over the incision- DO NOT pick or remove this glue, it will fall of naturally. DO NOT apply anything over your incision including lotions, creams, Neosporin, or scar creams. SHOWERING: You may shower as normal with outer dressing still in place. You may continue to shower once you have removed your outer dressing (see above). No tub baths, hot tubs or whirlpools for 6 weeks. Keep Incision dry as possible- you may wash your incision daily with gentle soap and water. Do not scrub your incision, rub or scratching her incision. Use a soft cloth and lightly dab/pat dry your incision You may reapply a clean dry dressing to the incision daily after showering or leave open to air. EXERCISE/ ACTIVITY RESTRICTIONS: You have unlimited walking and stair climbing privileges. Walking outside (in nice weather only andon stable ground) or walking on a treadmill (no incline) is also allowed Please get up and walk at least 4 times daily This will help prevent post-operative blood clots and promote circulation NO deep bending, lifting or twisting. Bend at the knees Avoid lifting objects heavier than 10-15 pounds We recommend that you avoid strenuous exercise. Do not jog, run, bicycle, lift weights or do any other strenuous exercise unless your doctor says that it is ok Where possible, avoid household activities that involve lifting, reaching, pushing or pulling, suchas laundry, vacuuming and childcare Wear your brace, if given, while out of bed. PAIN: Take pain medication as prescribed. As your pain level decreases, you may begin to take [id number] Extra Strength Tylenol. The maximum Tylenol you are able to take is 3000 mg a day total. You should try to wean from your pain medicine in 2-3 weeks. It is not recommended to drive or operate heavy machinery while taking narcotic pain medication. You will be provided with a prescription for pain medication when you are discharged from the hospital Moving forward, you are to contact the office at [phone] or via [employer], for additional refills You can receive up to 2 additional refills after discharge Please contact our office 2-3 days before you run out of your medication, that way we can refill your prescription in a timely manner Refills will NOT be given over the weekend or after office hours (8:30am-4:00pm). Narcotic pain medicine can cause constipation. You may obtain the following medication to prevent constipation. Colace twice daily. Purchase over the counter. (May substitute with similar med such as Senna.) Miralax 1-2 times daily. Over the counter. Twice daily if you are feeling constipated. Magnesium Citrate. OTC. If no bowel movement in a few days and you are becoming uncomfortable. Enema. Over the counter. If no relief with above regiment. You may also be given a prescription for a steroid and a muscle relaxer to help with pain. SEXUAL ACTIVITY: You may resume sexual activity when your pain level reduces and you can do activities comfortably AND within the activity restrictions we have listed (as above) If it hurts, don't do it DRIVING: You may NOT drive a car until told otherwise by your physician (usually at your first office visit). You may be a passenger for short distances (20-30 minutes). If you must take a longer trip, make sure to make several pit stops so that you can walk around andstretch your legs. Reclining the passenger seat seems to be the most comfortable position for most patients. FOLLOW-UP APPOINTMENTS: You will be given a postop appointment 2-3 weeks from your surgery date. You may see either your surgeon or one of our Advanced Practice Providers. QUESTIONS, CONCERNS and WHEN TO CALL US: Although your surgery and recovery will likely be uneventful, you may have some residual numbness, muscle aches and pains in your back and/or legs; this is normal and should improve in the next few weeks Should you experience any of the following: CONTACT US IMMEDIATELY: New numbness or weakness Pain that is progressively getting worse and is not relieved by your pain medication, muscle relaxers, rest and warm compresses Bleeding, redness, swelling, pain, drainage from your surgical incision or if your incision is opening Chills or flu-like symptoms Fever greater than 101.0 F Inability to eat, drink fluids or take medications Problems with bowel or bladder functions Difficulty breathing or shortness of breath Warmth, tenderness or swelling in your calf CONTACT/OFFICE INFORMATION: If you have any additional questions/concerns, please contact the office. Contact information is included in your discharge instructions. For life- threathening emergency, please call 911 * Discharge Instr - JASIEL* Vannessa Ryder RN - 11/17/2024 2:09 PM EDT Images from the original note were not included. Continuity of Care Form Patient Name: Kathryn Tamez : 1940 Admit date: 11/07/2024 Discharge date: Code Status Order: Full Code Advance Directives: N Admitting Physician: Sherry Pruitt MD PCP: Leonardo Lyles Discharging Nurse: Discharging Hospital Unit/Room#: [id number]/[id number] A Discharging Unit Phone Number: Emergency Contact: Extended Emergency Contact Information Primary Emergency Contact: Hyun Purcell Mobile Relation: Daughter Past Surgical History: Past Surgical History: Procedure Laterality Date BACK SURGERY 2018 CHOLECYSTECTOMY 1981 COLONOSCOPY 07/2018 EGD with biopsy COLONOSCOPY 07/2018 HYSTERECTOMY 2004 JOINT REPLACEMENT Left left hip KIDNEY SURGERY Right right kideny remove, due tto cancer NEPHRECTOMY Left THYROIDECTOMY, PARTIAL TOTAL ANKLE ARTHROPLASTY Right Immunization History: Immunization History Administered Date(s) Administered Moderna SARS-CoV-2 Vaccination 09/30/2020, 10/29/2020, 06/21/2021 Tdap 05/07/2021 Active Problems: Medical Problems Problem List * (Principal) Colitis due to Clostridioides difficile Inability to walk Moderate malnutrition (CMS/HCC) ([facility]) Fall at home, initial encounter Mixed incontinence Gastro-esophageal reflux disease without esophagitis Migraines Osteoporosis of lumbar spine Diarrhea Myalgia Urgency of urination Urge incontinence of urine Low back pain Other chronic pain Major depressive disorder, single episode, unspecified Atrophy of vagina Osteopenia of multiple sites Thyrotoxicosis, unspecified without thyrotoxic crisis or storm Spinal stenosis of lumbar region Anxiety associated with depression Adjustment disorder with mixed anxiety and depressed mood Postsurgical hypothyroidism Other bursitis of hip, right hip Stress incontinence in female Gastroenteritis and colitis, viral Severe malnutrition (CMS/HCC) ([facility]) Vitamin D deficiency Infection due to Norovirus species Pain in right hip Isolation/Infection: Enhanced Contact C. difficile Nurse Assessment: Last Vital Signs: BP 106/50 (BP Location: Left arm, Patient Position: Sitting) Pulse 69 Temp 36.2 C (97.1 F) (Temporal) Resp 16 Ht 1.549 m (5' 0.98) Wt 54 kg (119 lb) LMP (LMP Unknown) SpO2 95% BMI 22.50 kg/m Last documented pain score (0-10 scale): Last Weight: Wt Readings from Last 1 Encounters: 11/09/24 54 kg (119 lb) Mental Status: {JASIEL Patient Mental Status:30560} IV Access: {JASIEL IV Access:09764} Nursing Mobility/ADLs: Walking {TRACY ADL:26150::Independent} Transfer {TRACY ADL:51223::Independent} Bathing {TRACY ADL:55177::Independent} Dressing {TRACY ADL:68936::Independent} Toileting {TRACY ADL:63442::Independent} Feeding {TRACY ADL:20853::Independent} [place] {TRACY ADL:55403::Independent} Med Delivery {yes/no:00338} Wound Care Documentation and Therapy: Wound/Incision 11/07/24 Incision Back Lower;Midline (Active) Site Assessment Dry;Intact;Clean 11/17/24 1200 Sera-Wound Assessment Clean;Dry;Intact;[place] 11/17/24 1200 Odor None 11/17/24 1200 Drainage Amount None 11/17/24 1200 Treatments Cleansed;Site care 11/17/24 1200 Primary Dressing ABD 11/17/24 1200 Dressing Status New dressing;Clean, dry & intact 11/17/24 1200 Number of days: 9 Elimination: Continence: Bowel: {yes/no:80425} Bladder: {yes/no:28899} Urinary Catheter: {JASIEL Urinary Catheter:69352} Colostomy/Ileostomy/Ileal Conduit: {YES / NO:85093} Date of Last BM: Intake/Output Summary (Last 24 hours) at 11/17/2024 1409 Last data filed at 11/17/2024 0845 Gross per 24 hour Intake 120 ml Output -- Net 120 ml I/O last 3 completed shifts: In: 120 (2.2 mL/kg) [P.O.:120] Out: - (0 mL/kg) Weight: 54 kg Safety Concerns: {JASIEL Safety Concerns:49714} Impairments/Disabilities: {JASIEL Impairments/Disabilities:25139} Nutrition Therapy: Current Nutrition Therapy: {JASIEL Diet List:97052} Routes of Feeding: {routes of feedin} Liquids: {liquid consistency:92053} Daily Fluid Restriction: {daily fluid restriction:08435} Last Modified Barium Swallow with Video (Video Swallowing Test): {done not done:92634} Treatments at the Time of Hospital Discharge: Respiratory Treatments: Oxygen Therapy: {Therapy; copd oxygen:66813} Ventilator: {JASIEL Ventilator:99106} Rehab Therapies: {GEN THERAPY DISCIPLINE SCAL:3868581} Weight Bearing Status/Restrictions: {POD WEIGHT BEARIN} Other Medical Equipment (for information only, NOT a DME order): {Assistive Devices DME:57321} Other Treatments: Patient's personal belongings (please select all that are sent with patient): {JASIEL Patient Belongings:37938} RN SIGNATURE: {E-signature:90880} CASE MANAGEMENT/SOCIAL WORK SECTION Inpatient Status Date: Discharging to Facility/ Agency Name: Address: Phone: Fax: Dialysis Facility (if applicable) Name: Address: Dialysis Schedule: Phone: Fax: Seo Manager/Mortician Investigator signature: {E-signature:81974} PHYSICIAN SECTION Name: Kathryn Tamez Prognosis: {Rehab Prognosis:24994} Condition at Discharge: {Patient Condition:37714} Rehab Potential (if transferring to Rehab): {Rehab Prognosis:08741} Recommended Labs or Other Treatments After Discharge: The individual is being admitted to a nursing facility directly from an [facility] or a unit of a [facility] that is not operated by or licensed by [facility] under section 5119.14 or 5160-3-15.1 5 The individual requires the level of services provided by a nursing facility for the condition for which he or she was treated in the hospital and, Physician Certification: I certify the above information and transfer of Kathryn Tamez is necessary for the continuing treatment of the diagnosis listed and that she requires {JASIEL Level of Care:55396} for {greater less than:54526} 30 days. Update Admission H&P: {JASIEL Changes in H&P:41091} PHYSICIAN SIGNATURE: {E-signature:99520} documented in this [facility]05-31-2025 Plan of care note* Care Plan - Vannessa Walden RN - 11/08/2024 4:21 PM EDT Problem: Knowledge Deficit Goal: Patient/family/caregiver demonstrates understanding of disease process, treatment plan, medications, and discharge instructions Outcome: Progressing Problem: Potential for Compromised Skin Integrity Goal: Skin Integrity is Maintained or Improved Outcome: Progressing Goal: Nutritional status is improving Outcome: Progressing Problem: Urinary Incontinence Goal: Perineal skin integrity is maintained or improved Outcome: Progressing [id number] Plan of care note* Care Plan - Selena Melgar RN - 11/08/2024 4:13 AM EDT Problem: Knowledge Deficit Goal: Patient/family/caregiver demonstrates understanding of disease process, treatment plan, medications, and discharge instructions Outcome: Progressing Problem: Potential for Compromised Skin Integrity Goal: Skin Integrity is Maintained or Improved Outcome: Progressing Goal: Nutritional status is improving Outcome: Progressing Problem: Urinary Incontinence Goal: Perineal skin integrity is maintained or improved Outcome: Progressing [id number] Consult note* Nancy Macedo - 11/08/2024 3:00 AM EDT Images from the original note were not included. Ortho Spine Consult Patient: Kathryn Tamez Date of : 1940 Acct: [id number] PCP: Leonardo Lyles Date of Admission: 11/07/2024 Date of Service: Pt seen/examined on 11/08/2024 Chief Complaint: C diff colitis s/p posterior fusion L2-5, revision decompression L2-4, dural defect repair on 11/04 History Of Present Illness:: This is a 84 y.o. female s/p L2-L5 revision and decompression done on 11/[address] Morrison.On review of documentation from [facility], patient was seen to have had an intraoperative dural tear which was repaired during surgery and complaining of intermittent headaches. Infectious disease was consulted and following patient over at the [facility]. On 11/06/2024, she was placed on activity as tolerated and elevated head of bed as tolerated. A.m. progress note on09/08/2024 documented that patient had been unable to report improvement in preop symptoms since shehad not been up and out of bed but at the time was denying new or worsening weakness or radicular discomfort postoperatively. Patient was alert and oriented but slow to respond. Not complaining of headache on 09/08. She began passing flatus and had a liquid bowel movement on 11/07 and was tolerating regular diet at [facility] see prior to transfer. She does have a history of documented admission in July 2024 for pneumonia with sepsis complicated by C. difficile and a urine culture from September 2024 that showed Pseudomonas aeruginosa bacteuria. Currently, she states her back is painful but that the medicine does help. She states she has been able to ambulate since surgery. She denies any current headache. Denies any new saddle anesthesia, bowel or bladder incontinence or acute extremity weakness. Former smoker, occasional alcohol use, no IVDU Hx Hx from chart and/or Pt. Patient ambulation status: mild difficulty and ambulates with: cane and walker. Antiplatelets/Anticoagulation includes: none. Past Medical History: Medical History[1] Past Surgical History: Recent Surgeries in Orthopedic Surgery No cases to display Home Medications: Prior to Admission medications Medication Sig Start Date End Date Taking? Authorizing Provider acetaminophen (Tylenol Extra Strength) 500 MG tablet Take 1 tablet by mouth every 6 hours as needed. Historical Provider, famotidine (Pepcid) 20 MG tablet Take 20 mg by mouth twice a day. 04/01/24 Historical Provider, gabapentin (Neurontin) 300 MG capsule Take 300 mg by mouth 2 times daily. Historical Provider, HYDROcodone-acetaminophen (Vicodin) 10-300 MG tablet Take 1 tablet by mouth every 6 hours as needed. 07/18/23 Historical Provider, hydrOXYzine HCl (Atarax) 10 MG tablet Take 10 mg by mouth every 6 hours as needed. 03/17/24 Historical Provider, sertraline (Zoloft) 100 MG tablet Take 200 mg by mouth daily. 09/13/23 Historical Provider, SUMAtriptan (Imitrex) 50 MG tablet Take 100 mg by mouth Once as needed for migraine. 05/29/23 Historical Provider, Synthroid 88 MCG tablet Take 88 mcg by mouth Every 24 hours. 03/17/24 Historical Provider, Current Hospital Medications: Current Medications[2] Allergies: Patient has no known allergies. Social History: Social History Socioeconomic History Marital status: Spouse name: Not on file Number of children: Not on file Years of education: Not on file Highest education level: Not on file Occupational History Not on file Tobacco Use Smoking status: Some Days Current packs/day: 0.00 Average packs/day: 1 pack/day for 46.0 years (46.0 ttl pk-yrs) Types: Cigarettes Start date: 08/04/1970 Last attempt to quit: 08/04/2016 Years since quittin.2 Smokeless tobacco: Never Substance and Sexual Activity Alcohol use: Yes Comment: rarely Drug use: No Sexual activity: Not on file Comment: divorce Other Topics Concern Not on file Social History Narrative Not on file Social Drivers of Health Financial Resource Strain: Not on file Food Insecurity: No Food Insecurity (07/24/2024) Hunger Vital Sign Worried About Running Out of Food in the Last Year: Never true Ran Out of Food in the Last Year: Never true Transportation Needs: No Transportation Needs (07/24/2024) PRAPARE - Transportation Lack of Transportation (Medical): No Lack of Transportation (Non-Medical): No Physical Activity: Not on file Stress: Not on file Social Connections: Not on file Intimate Partner Violence: Not At Risk (07/24/2024) Humiliation, Afraid, Rape, and Kick questionnaire Fear of Current or Ex-Partner: No Emotionally Abused: No Physically Abused: No Sexually Abused: No Housing Stability: Low Risk (07/24/2024) Housing Stability Vital Sign Unable to Pay for Housing in the Last Year: No Number of Times Moved in the Last Year: 0 Homeless in the Last Year: No Family History: Family History[3] Further Family History is noncontributory to this injury. REVIEW OF SYSTEMS: Review of Systems - General ROS: negative for - chills, fatigue, fever, malaise or night sweats Psychological ROS: negative Ophthalmic ROS: negative ENT ROS: negative for - headaches or sore throat Hematological and Lymphatic ROS: negative for - bleeding problems or blood clots Respiratory ROS: no cough, shortness of breath, or wheezing Cardiovascular ROS: no chest pain or dyspnea on exertion Gastrointestinal ROS: negative Musculoskeletal ROS: See HPI Neurological ROS: See HPI All other systems reviewed and are negative PHYSICAL EXAM: BP 121/64 (BP Location: Left arm, Patient Position: Lying) Pulse 91 Temp 37 C (98.6 F) (Temporal) Resp 14 LMP (LMP Unknown) SpO2 93% GENERAL APPEARANCE: Awake and oriented x3. No acute distress, except appropriate to injury. MOOD AND AFFECT: Appropriate to situation GAIT AND STATION: Patient is in bed and unable to ambulate secondary to known injury. COORDINATION and BALANCE: Patient is grossly coordinated unable to ambulate secondary to known injury. Spine Exam: * Exam was limited due to pain: No Direct Spine Inspection: TTP was present in lumbar spine, within proportion for recent surgery SA EF WE EE WF GS HI RUE 4+ 4+ 5 4+ 5 4 4+ Sensation: Intact C3-T1 with normal sensation in all distributions Radial pulse: Palpable TTP in the following areas: nontender throughout extremity. Nontender throughout remainder of extremity SA EF WE EE WF GS HI LUE 4+ 4+ 5 4+ 5 4 4+ Sensation: Intact C3-T1 with normal sensation in all distributions Radial pulse: Palpable TTP in the following areas: nontender throughout extremity. Nontender throughout remainder of extremity HF KE DF EHL PF RLE 5 5 5 5 5 Sensation: Intact L2-S1 with normal sensation Pulses: DP Palpable TTP in the following areas: Nontender throughout extremity. Nontender throughout remainder of extremity Pain w Straight leg raise: No HF KE DF EHL PF LLE 5 5 5 5 5 Sensation: Intact L2-S1 with normal sensation Pulses: DP Palpable TTP in the following areas: Nontender throughout extremity. Nontender throughout remainder of extremity Pain w Straight leg raise: Yes Deep Tendon Reflexes: Right Bicep: 2+ Left Bicep: 2+ Right Brachioradialis: 1+ Left Brachioradialis: 1+ Haney: absent Right Knee: 2+ Left Knee: 2+ Right Ankle: 1+ Left Ankle: 1+ Right Ankle Clonus: absent Left Ankle Clonus: absent Babinski: equivocal Rectal Exam: Deferred, no bowel or bladder sx Labs: Recent Labs 11/07/24 0617 11/07/24 2343 WBC 32.6* 26.7* HGB 9.1* 8.7* HCT 28.0* 26.1* PLT 134* 148 Recent Labs 11/07/24 2343 NA 138 K 3.0* CL 105 CO2 22* BUN 12 CREATININE 0.64 CALCIUM 7.8* No results for input(s): INR in the last 72 hours. Recent Labs 11/07/24 0617 CRP 274.7* No results for input(s): HCG in the last 72 hours. The above labs were reviewed by me. Radiology: The following images were independently reviewed and interpreted XR: X-ray lumbar spine from 11/06/2024 ([facility]) spinal instrumentation from L2-L5 is visualized. Total of 6 pedicle screws and [address] and intact without evidence of hardware breakage, failure, or lucency surrounding the hardware. There is maintenance of lumbar lordosis without fracture, dislocation, or spondylolisthesis. There is no evidence of fracture, malposition, breakage or hardware failure of the visualized instrumentation. Bladder stimulator is also visualized on the film and there are surgical maddie in the skin of the back Radiology report reviewed. ASSESSMENT: 84 y.o. female s/p posterior fusion L2-5, revision decompression L2-4, dural defect repair on 11/04 PLAN: -Dr. Morrison aware of transfer to [facility] - No additional operative intervention indicated, no further plans for surgery - Weight-bear as tolerated bilateral lower extremities - No brace indicated - No additional imaging indicated of the spine -Activity as tolerated. Okay to elevate HOB - Okay for regular diet from ortho perspective -Neurovascular checks -Skin checks - Medical management/antibiotics per medicine/infectious disease team -Orthopaedic surgery will continue to follow. Please page ignition specialist orthopaedic resident for questions or concerns. Delilah Elizabeth MD Orthopaedic Surgery PGY-1 Epic Chat Patient was independently seen and examined by me and I independently reviewed the imaging. Agree with the clinical history, exam, assessment, and plan as described above. Nancy Macedo MD MPH PGY-3 Orthopedic Surgery 11/08/2024 6:43 AM [1] Past Medical History: Diagnosis Date Back pain Depression Gastritis GERD (gastroesophageal reflux disease) Hypothyroid [2] Current Facility-Administered Medications: acetaminophen (Tylenol) tablet 650 mg, 650 mg, Oral, q6h PRN OR acetaminophen (Tylenol) suppository 650 mg, 650 mg, Rectal, q6h PRN, Ross G Herington, COMMUNITY ORGANIZATION AIDE albuterol (2.5 MG/3ML) 0.083% nebulizer solution 2.5 mg, 2.5 mg, Nebulization, q2h PRN, Ross G Herington, COMMUNITY ORGANIZATION AIDE azithromycin (Zithromax) tablet 500 mg, 500 mg, Oral, q24h, Ross G Herington, COMMUNITY ORGANIZATION AIDE, 500 mg at 11/08/24 0138 cefepime (Maxipime) 2,000 mg in sodium chloride 0.9 % 50 mL IVPB Mini-Bag Plus, 2,000 mg, IntraVENous, q8h, Ross G Herington, COMMUNITY ORGANIZATION AIDE fidaxomicin (Dificid) tablet 200 mg, 200 mg, Oral, BID, Ross G Liz, COMMUNITY ORGANIZATION AIDE, 200 mg at 11/07/24 2215 gabapentin (Neurontin) capsule 300 mg, 300 mg, Oral, BID, Ross G Herington, COMMUNITY ORGANIZATION AIDE, 300 mg at 11/07/245 HYDROcodone-acetaminophen ([place]) 5-325 MG per tablet 1 tablet, 1 tablet, Oral, q4h PRN OR HYDROcodone-acetaminophen ([place]) 5-325 MG per tablet 2 tablet, 2 tablet, Oral, q4h PRN, Nico Hill NP, 2 tablet at 11/07/242214 hydrOXYzine HCl (Atarax) tablet 10 mg, 10 mg, Oral, q6h PRN, Nico Hill NP ipratropium-albuterol (Duo-Neb) 0.5-2.5 mg/3 mL nebulizer solution 3 mL, 3 mL, Nebulization, Q4H while awake, Nico Hill NP levothyroxine (Synthroid, Levoxyl) tablet 88 mcg, 88 mcg, Oral, q24h, Nico Hill NP magnesium sulfate IVPB premix 2,000 mg, 2,000 mg, IntraVENous, Once, Nico Hill NP, Last Rate:25 mL/hr at 11/08/24132, 2,000 mg at 11/08/24132 naloxone (Narcan) injection 0.4 mg, 0.4 mg, IntraVENous, q5 min PRN, Nico Hill NP ondansetron ODT (Zofran-ODT) disintegrating tablet 4 mg, 4 mg, Oral, q8h PRN OR ondansetron (Zofran) injection 4 mg, 4 mg, IntraVENous, q6h PRN, Nico Hill NP potassium chloride 40 mEq in NS 500 mL IVPB (premix), 40 mEq, IntraVENous, Once, Nico Hill NP, Last Rate: 125 mL/hr at 11/08/24132, 40 mEq at 11/08/24132 sertraline (Zoloft) tablet 200 mg, 200 mg, Oral, Daily, Nico Hill NP sodium chloride 0.9 % infusion, 5-250 mL/hr, IntraVENous, PRN, Nico Hill NP sodium chloride 0.9% (NS) flush 10 mL, 10 mL, IntraVENous, 2 times per day, Nico Hill NP, 10 mL at 11/07/242217 sodium chloride 0.9% (NS) flush 10 mL, 10 mL, IntraVENous, PRN, Nico Hill NP [3] Family History Problem Relation Name Age of Onset Liver cancer Neg Hx Stomach cancer Neg Hx Heart attack Mother Coronary artery disease Mother Colon cancer Neg Hx Stroke Mother Cancer Father unknow Cosigned by Cali Turpin MD at 11/12/2024 11:29 AM EDT [place] Phone: [phone] 213-793105-30-2025 History and physical note* Sherry Pruitt MD - 11/07/2024 9:56 PM EDT Attending History and Physical Admit Date: 11/07/2024 PCP: Leonardo Lyles CHIEF COMPLAINT: C difficile infection Reason for Admission: C difficile infection History Obtained From: patient HISTORY OF PRESENT ILLNESS: Kathryn is a 84 y.o. female with past medical history below who presents with chief complaint listed above. Patient was transferred from [facility] due to testing positive for C-difficile infection. Patient had a L2-L5 revision and decompression done on 11/[address] Morrison. Patient was having abdominal pain and diarrhea at [facility] so patient was tested for C-difficile which tested positive. Patient was receiving antibiotics at [facility] associated with her surgery but not long enough as would be typical for a C-diff presentation. Patient admits that she did have C-diff duringprior admission this year on 07/18/24. Patient at that time was given oral vancomycin. Of note patient's WBC was elevated at 32.6. Patient's O2 was in the 70s on room air. Patient was placed on 4 l O2 and recovered to 92%. CXR was obtained which showed RUL consolidation likely pneumonia and left lower hemithorax probably consolidation or atelectasis and pleural fluid. Patient complains of abdominalpain all throughout her abdomen, back pain from surgery, and diarrhea. Patient denies any chest pain, shortness of breath, chest tightness, nausea, vomiting, weakness, fatigue, fever, or chills. Willadmit for further evaluation and management. Past Medical History: Medical History[1] Past Surgical History: Surgical History[2] Social History: Social History Socioeconomic History Marital status: Spouse name: Not on file Number of children: Not on file Years of education: Not on file Highest education level: Not on file Occupational History Not on file Tobacco Use Smoking status: Some Days Current packs/day: 0.00 Average packs/day: 1 pack/day for 46.0 years (46.0 ttl pk-yrs) Types: Cigarettes Start date: 08/04/1970 Last attempt to quit: 08/04/2016 Years since quittin.2 Smokeless tobacco: Never Substance and Sexual Activity Alcohol use: Yes Comment: rarely Drug use: No Sexual activity: Not on file Comment: divorce Other Topics Concern Not on file Social History Narrative Not on file Social Drivers of Health Financial Resource Strain: Not on file Food Insecurity: No Food Insecurity (07/24/2024) Hunger Vital Sign Worried About Running Out of Food in the Last Year: Never true Ran Out of Food in the Last Year: Never true Transportation Needs: No Transportation Needs (07/24/2024) PRAPARE - Transportation Lack of Transportation (Medical): No Lack of Transportation (Non-Medical): No Physical Activity: Not on file Stress: Not on file Social Connections: Not on file Intimate Partner Violence: Not At Risk (07/24/2024) Humiliation, Afraid, Rape, and Kick questionnaire Fear of Current or Ex-Partner: No Emotionally Abused: No Physically Abused: No Sexually Abused: No Housing Stability: Low Risk (07/24/2024) Housing Stability Vital Sign Unable to Pay for Housing in the Last Year: No Number of Times Moved in the Last Year: 0 Homeless in the Last Year: No Family History: Family History[3] Medications Prior to Admission: Current Medications[4] Allergies: Allergies[5] REVIEW OF SYSTEMS: A focused review of systems was performed and is negative except as stated in above HPI. Vitals: BP 121/64 (BP Location: Left arm, Patient Position: Lying) Pulse 91 Temp 37 C (98.6 F) (Temporal) Resp 14 LMP (LMP Unknown) SpO2 93% BMI Classification: Normal Weight (BMI 18.5-24.9) Pulse Ox: SpO2 Av % Min: 93 % Max: 93 % Supplemental O2: O2 Flow Rate (L/min): 4 L/min PHYSICAL EXAM: Physical Exam Constitutional: General: She is not in acute distress. Appearance: Normal appearance. She is ill-appearing. She is not toxic-appearing or diaphoretic. HENT: Head: Normocephalic and atraumatic. Nose: No congestion or rhinorrhea. Eyes: General: Right eye: No discharge. Left eye: No discharge. Cardiovascular: Rate and Rhythm: Normal rate and regular rhythm. Pulses: Normal pulses. Heart sounds: Normal heart sounds. Pulmonary: Effort: Pulmonary effort is normal. No respiratory distress. Breath sounds: No stridor. Rhonchi and rales present. No wheezing. Chest: Chest wall: No tenderness. Abdominal: General: Abdomen is flat. There is no distension. Palpations: Abdomen is soft. There is no mass. Tenderness: There is abdominal tenderness. There is no right CVA tenderness, left CVA tenderness, guarding or rebound. Hernia: No hernia is present. Musculoskeletal: General: Normal range of motion. Skin: General: Skin is warm and dry. Capillary Refill: Capillary refill takes less than 2 seconds. Neurological: General: No focal deficit present. Mental Status: She is alert and oriented to person, place, and time. DATA: CBC: Recent Labs 11/07/24 0617 WBC 32.6* RBC 3.26* HGB 9.1* HCT 28.0* MCV 85.9 RDW 15.3* PLT 134* BMP:No results for input(s): NA, K, CL, CO2, BUN, CREATININE, GLUCOSE, CALCIUM, ANIONGAP in the last 72 hours. LIVER PROFILE:No results for input(s): AST, ALT, BILITOT, ALKPHOS, PROT in the last 72 hours. No lab exists for component: LABALBU PT/INR: No results for input(s): PROTIME, INR in the last 72 hours. CARDIAC ENZYMES: No results for input(s): TROPONINI in the last 72 hours. Procalcitonin: No results found for: PROCAL Urine Culture: Results for orders placed or performed in visit on 09/12/24 Urine culture Collection Time: 09/12/24 10:20 AM Specimen: Urine, Clean Catch Result Value Ref Range Urine Culture >100,000 CFU/mL Pseudomonas aeruginosa (A) Susceptibility Pseudomonas aeruginosa - BROTH MICRODILUTION Cefepime 0.25 Susceptible ug/ml Ciprofloxacin <=0.06 Susceptible ug/ml Levofloxacin 0.25 Susceptible ug/ml Meropenem <=0.25 Susceptible ug/ml Piperacillin / Tazobactam <=4 Susceptible ug/ml Tobramycin <=1 Susceptible ug/ml COVID-19 PCR: No results for input(s): COVID19 in the last 72 hours. I reviewed: [x] laboratory results [x] radiographic results At the time of today's encounter. Pt was advised of the results. Data: (CAT1) Reviewed 3 or more notes from different specialty or health system (each=1). (CAT1) Reviewed 3 or more labs/studies ordered by another provider not previously counted (each=1, panels count as 1). (CAT1) Reviewed 3 or more labs/studies previously ordered by me not previously counted (each=1, panels count as 1). (CAT3) Mgmt of the patient was discussed with Dr. Pruitt, who stated, in summary: Patient previouslyadmitted with C-diff on Vancomycin. (LOW: 2x CAT1 or independent historian MOD: 3x CAT1 or 1x CAT3 EXTENSIVE: 3x CAT1 and 1x CAT3) Assessment Discussed management with the ED provider and agree with hospitalization. Acute, acute on chronic, unstable/uncontrolled chronic problems/diagnoses: C-difficile colitis Right upper lobe pneumonia Hypokalemia Stable chronic problems affecting care, new non-acute diagnoses: GERD Hypothyroidism Depression Neuropathy L2-L5 decompression 11/04/24 Plan As a result of the above findings & factors, the following mgmt was pursued: - Start on Oral Fidaxomicin for C-Diff - Start on azithromycin and Cefepime for RUL pneumonia - Enhanced contact isolation - Sputum culture ordered - Respiratory panel ordered - Duo-Neb q 4hrs while awake - Albuterol PRN - Continue pain medication from [facility] from 11/04 L2-L5 decompression - Echo cardiogram ordered due to elevated BNP - One time lasix IV - am labs, replace lytes prn - PT/OT ordered - delirium precautions: increase activity - DVT prophylaxis: SCDs and encourage ambulation Complexity: Acute illness or injury posing a threat to life or body function (HIGH). Acute illness with systemic symptoms (MOD). Risk: Admission to hospital-level care was considered or occurred (HIGH). Prescription drug/IVF/colloid was initiated, discontinued, adjusted; or reviewed with decision to maintain current orders (MOD). Advance Directive: Full Code Anticipated Discharge - Date - 11/11/24 - Location - Home - Pending the following - Response to treatment Total time spent (which include face to face and non face to face encounters) : 75 minutes. Extended Emergency Contact Information Primary Emergency Contact: Hyun Purcell Mobile Relation: Daughter [employer] Kathryn Tamez : 1940 Primary Care Physician: Leonardo Lyles The patient and/or family/surrogate voluntarily agreed to participate in ACP services. Patient s cognitive capacity: A&Ox4 Code Status: [X] [FULL CODE - Continue all advanced life support: CPR,intubation,invasive procedures] [_] [DNR-CCA - DO NOT do CPR, intubation] [_] [DNR-INSPECTOR OF WEIGHTS AND MEASURES - Comfort care only] [_] DNR form [was/was not] signed Summary of discussion: I answered all the patient/family questions that I could within the range and scope of the current medical situation. We discussed the medical conditions, risks, benefits, outcomes, and goals of careat this time for the patient's medical issues at hand in the face of the patient's chronic issues and current presentation. Total time spent: 5 minutes were spent discussing the patient's resuscitation status, advance care planning, and end of life care, with patient and/or family/surrogate. Nico Hill NP Division of Hospitalist Medicine Attestation: I have participated and agree with the diagnosis and treatment plan as stated above. Huy Pruitt MD [1] Past Medical History: Diagnosis Date Back pain Depression Gastritis GERD (gastroesophageal reflux disease) Hypothyroid [2] Past Surgical History: Procedure Laterality Date BACK SURGERY 2018 CHOLECYSTECTOMY 1981 COLONOSCOPY 07/2018 EGD with biopsy COLONOSCOPY 07/2018 HYSTERECTOMY 2004 JOINT REPLACEMENT Left left hip KIDNEY SURGERY Right right kideny remove, due tto cancer NEPHRECTOMY Left THYROIDECTOMY, PARTIAL TOTAL ANKLE ARTHROPLASTY Right [3] Family History Problem Relation Name Age of Onset Liver cancer Neg Hx Stomach cancer Neg Hx Heart attack Mother Coronary artery disease Mother Colon cancer Neg Hx Stroke Mother Cancer Father unknow [4] Current Facility-Administered Medications: acetaminophen (Tylenol) tablet 650 mg, 650 mg, Oral, q6h PRN OR acetaminophen (Tylenol) suppository 650 mg, 650 mg, Rectal, q6h PRN, Nico Hill NP fidaxomicin (Dificid) tablet 200 mg, 200 mg, Oral, BID, Nico Hill NP gabapentin (Neurontin) capsule 300 mg, 300 mg, Oral, BID, Nico iHll NP HYDROcodone-acetaminophen ([place]) 5-325 MG per tablet 1 tablet, 1 tablet, Oral, q4h PRN OR HYDROcodone-acetaminophen ([place]) 5-325 MG per tablet 2 tablet, 2 tablet, Oral, q4h PRN, Nico Hill NP hydrOXYzine HCl (Atarax) tablet 10 mg, 10 mg, Oral, q6h PRN, Nico Hill NP levothyroxine (Synthroid, Levoxyl) tablet 88 mcg, 88 mcg, Oral, q24h, Nico Hill NP ondansetron ODT (Zofran-ODT) disintegrating tablet 4 mg, 4 mg, Oral, q8h PRN OR ondansetron (Zofran) injection 4 mg, 4 mg, IntraVENous, q6h PRN, Nico Hill NP [START ON 11/08/2024] sertraline (Zoloft) tablet 200 mg, 200 mg, Oral, Daily, Nico Hill NP sodium chloride 0.9 % infusion, 5-250 mL/hr, IntraVENous, PRN, Nico Hill NP sodium chloride 0.9% (NS) flush 10 mL, 10 mL, IntraVENous, 2 times per day, Nico Hill NP sodium chloride 0.9% (NS) flush 10 mL, 10 mL, IntraVENous, PRN, Nico Hill NP [5] No Known Allergies [place] Phone: [phone] [facility]05-30-2025 History and physical note* Sherry Pruitt MD - 11/07/2024 9:56 PM EDT Attending History and Physical Admit Date: 11/07/2024 PCP: Leonardo Lyles CHIEF COMPLAINT: C difficile infection Reason for Admission: C difficile infection History Obtained From: patient HISTORY OF PRESENT ILLNESS: Kathryn is a 84 y.o. female with past medical history below who presents with chief complaint listed above. Patient was transferred from [facility] due to testing positive for C-difficile infection. Patient had a L2-L5 revision and decompression done on 11/[address] Morrison. Patient was having abdominal pain and diarrhea at [facility] so patient was tested for C-difficile which tested positive. Patient was receiving antibiotics at [facility] associated with her surgery but not long enough as would be typical for a C-diff presentation. Patient admits that she did have C-diff duringprior admission this year on 07/18/24. Patient at that time was given oral vancomycin. Of note patient's WBC was elevated at 32.6. Patient's O2 was in the 70s on room air. Patient was placed on 4 l O2 and recovered to 92%. CXR was obtained which showed RUL consolidation likely pneumonia and left lower hemithorax probably consolidation or atelectasis and pleural fluid. Patient complains of abdominalpain all throughout her abdomen, back pain from surgery, and diarrhea. Patient denies any chest pain, shortness of breath, chest tightness, nausea, vomiting, weakness, fatigue, fever, or chills. Willadmit for further evaluation and management. Past Medical History: Medical History[1] Past Surgical History: Surgical History[2] Social History: Social History Socioeconomic History Marital status: Spouse name: Not on file Number of children: Not on file Years of education: Not on file Highest education level: Not on file Occupational History Not on file Tobacco Use Smoking status: Some Days Current packs/day: 0.00 Average packs/day: 1 pack/day for 46.0 years (46.0 ttl pk-yrs) Types: Cigarettes Start date: 08/04/1970 Last attempt to quit: 08/04/2016 Years since quittin.2 Smokeless tobacco: Never Substance and Sexual Activity Alcohol use: Yes Comment: rarely Drug use: No Sexual activity: Not on file Comment: divorce Other Topics Concern Not on file Social History Narrative Not on file Social Drivers of Health Financial Resource Strain: Not on file Food Insecurity: No Food Insecurity (07/24/2024) Hunger Vital Sign Worried About Running Out of Food in the Last Year: Never true Ran Out of Food in the Last Year: Never true Transportation Needs: No Transportation Needs (07/24/2024) PRAPARE - Transportation Lack of Transportation (Medical): No Lack of Transportation (Non-Medical): No Physical Activity: Not on file Stress: Not on file Social Connections: Not on file Intimate Partner Violence: Not At Risk (07/24/2024) Humiliation, Afraid, Rape, and Kick questionnaire Fear of Current or Ex-Partner: No Emotionally Abused: No Physically Abused: No Sexually Abused: No Housing Stability: Low Risk (07/24/2024) Housing Stability Vital Sign Unable to Pay for Housing in the Last Year: No Number of Times Moved in the Last Year: 0 Homeless in the Last Year: No Family History: Family History[3] Medications Prior to Admission: Current Medications[4] Allergies: Allergies[5] REVIEW OF SYSTEMS: A focused review of systems was performed and is negative except as stated in above HPI. Vitals: BP 121/64 (BP Location: Left arm, Patient Position: Lying) Pulse 91 Temp 37 C (98.6 F) (Temporal) Resp 14 LMP (LMP Unknown) SpO2 93% BMI Classification: Normal Weight (BMI 18.5-24.9) Pulse Ox: SpO2 Av % Min: 93 % Max: 93 % Supplemental O2: O2 Flow Rate (L/min): 4 L/min PHYSICAL EXAM: Physical Exam Constitutional: General: She is not in acute distress. Appearance: Normal appearance. She is ill-appearing. She is not toxic-appearing or diaphoretic. HENT: Head: Normocephalic and atraumatic. Nose: No congestion or rhinorrhea. Eyes: General: Right eye: No discharge. Left eye: No discharge. Cardiovascular: Rate and Rhythm: Normal rate and regular rhythm. Pulses: Normal pulses. Heart sounds: Normal heart sounds. Pulmonary: Effort: Pulmonary effort is normal. No respiratory distress. Breath sounds: No stridor. Rhonchi and rales present. No wheezing. Chest: Chest wall: No tenderness. Abdominal: General: Abdomen is flat. There is no distension. Palpations: Abdomen is soft. There is no mass. Tenderness: There is abdominal tenderness. There is no right CVA tenderness, left CVA tenderness, guarding or rebound. Hernia: No hernia is present. Musculoskeletal: General: Normal range of motion. Skin: General: Skin is warm and dry. Capillary Refill: Capillary refill takes less than 2 seconds. Neurological: General: No focal deficit present. Mental Status: She is alert and oriented to person, place, and time. DATA: CBC: Recent Labs 11/07/24 0617 WBC 32.6* RBC 3.26* HGB 9.1* HCT 28.0* MCV 85.9 RDW 15.3* PLT 134* BMP:No results for input(s): NA, K, CL, CO2, BUN, CREATININE, GLUCOSE, CALCIUM, ANIONGAP in the last 72 hours. LIVER PROFILE:No results for input(s): AST, ALT, BILITOT, ALKPHOS, PROT in the last 72 hours. No lab exists for component: LABALBU PT/INR: No results for input(s): PROTIME, INR in the last 72 hours. CARDIAC ENZYMES: No results for input(s): TROPONINI in the last 72 hours. Procalcitonin: No results found for: PROCAL Urine Culture: Results for orders placed or performed in visit on 09/12/24 Urine culture Collection Time: 09/12/24 10:20 AM Specimen: Urine, Clean Catch Result Value Ref Range Urine Culture >100,000 CFU/mL Pseudomonas aeruginosa (A) Susceptibility Pseudomonas aeruginosa - BROTH MICRODILUTION Cefepime 0.25 Susceptible ug/ml Ciprofloxacin <=0.06 Susceptible ug/ml Levofloxacin 0.25 Susceptible ug/ml Meropenem <=0.25 Susceptible ug/ml Piperacillin / Tazobactam <=4 Susceptible ug/ml Tobramycin <=1 Susceptible ug/ml COVID-19 PCR: No results for input(s): COVID19 in the last 72 hours. I reviewed: [x] laboratory results [x] radiographic results At the time of today's encounter. Pt was advised of the results. Data: (CAT1) Reviewed 3 or more notes from different specialty or health system (each=1). (CAT1) Reviewed 3 or more labs/studies ordered by another provider not previously counted (each=1, panels count as 1). (CAT1) Reviewed 3 or more labs/studies previously ordered by me not previously counted (each=1, panels count as 1). (CAT3) Mgmt of the patient was discussed with Dr. Pruitt, who stated, in summary: Patient previouslyadmitted with C-diff on Vancomycin. (LOW: 2x CAT1 or independent historian MOD: 3x CAT1 or 1x CAT3 EXTENSIVE: 3x CAT1 and 1x CAT3) Assessment Discussed management with the ED provider and agree with hospitalization. Acute, acute on chronic, unstable/uncontrolled chronic problems/diagnoses: C-difficile colitis Right upper lobe pneumonia Hypokalemia Stable chronic problems affecting care, new non-acute diagnoses: GERD Hypothyroidism Depression Neuropathy L2-L5 decompression 11/04/24 Plan As a result of the above findings & factors, the following mgmt was pursued: - Start on Oral Fidaxomicin for C-Diff - Start on azithromycin and Cefepime for RUL pneumonia - Enhanced contact isolation - Sputum culture ordered - Respiratory panel ordered - Duo-Neb q 4hrs while awake - Albuterol PRN - Continue pain medication from [facility] from 11/04 L2-L5 decompression - Echo cardiogram ordered due to elevated BNP - One time lasix IV - am labs, replace lytes prn - PT/OT ordered - delirium precautions: increase activity - DVT prophylaxis: SCDs and encourage ambulation Complexity: Acute illness or injury posing a threat to life or body function (HIGH). Acute illness with systemic symptoms (MOD). Risk: Admission to hospital-level care was considered or occurred (HIGH). Prescription drug/IVF/colloid was initiated, discontinued, adjusted; or reviewed with decision to maintain current orders (MOD). Advance Directive: Full Code Anticipated Discharge - Date - 11/11/24 - Location - Home - Pending the following - Response to treatment Total time spent (which include face to face and non face to face encounters) : 75 minutes. Extended Emergency Contact Information Primary Emergency Contact: Hyun Purcell Mobile Relation: Daughter [employer] Kathryn Tamez : 1940 Primary Care Physician: Leonardo Lyles The patient and/or family/surrogate voluntarily agreed to participate in ACP services. Patient s cognitive capacity: A&Ox4 Code Status: [X] [FULL CODE - Continue all advanced life support: CPR,intubation,invasive procedures] [_] [DNR-CCA - DO NOT do CPR, intubation] [_] [DNR-INSPECTOR OF WEIGHTS AND MEASURES - Comfort care only] [_] DNR form [was/was not] signed Summary of discussion: I answered all the patient/family questions that I could within the range and scope of the current medical situation. We discussed the medical conditions, risks, benefits, outcomes, and goals of careat this time for the patient's medical issues at hand in the face of the patient's chronic issues and current presentation. Total time spent: 5 minutes were spent discussing the patient's resuscitation status, advance care planning, and end of life care, with patient and/or family/surrogate. Nico Hill NP Division of Hospitalist Medicine Attestation: I have participated and agree with the diagnosis and treatment plan as stated above. Huy Pruitt MD [1] Past Medical History: Diagnosis Date Back pain Depression Gastritis GERD (gastroesophageal reflux disease) Hypothyroid [2] Past Surgical History: Procedure Laterality Date BACK SURGERY 2018 CHOLECYSTECTOMY 1981 COLONOSCOPY 07/2018 EGD with biopsy COLONOSCOPY 07/2018 HYSTERECTOMY 2004 JOINT REPLACEMENT Left left hip KIDNEY SURGERY Right right kideny remove, due tto cancer NEPHRECTOMY Left THYROIDECTOMY, PARTIAL TOTAL ANKLE ARTHROPLASTY Right [3] Family History Problem Relation Name Age of Onset Liver cancer Neg Hx Stomach cancer Neg Hx Heart attack Mother Coronary artery disease Mother Colon cancer Neg Hx Stroke Mother Cancer Father unknow [4] Current Facility-Administered Medications: acetaminophen (Tylenol) tablet 650 mg, 650 mg, Oral, q6h PRN OR acetaminophen (Tylenol) suppository 650 mg, 650 mg, Rectal, q6h PRN, Nico Hill NP fidaxomicin (Dificid) tablet 200 mg, 200 mg, Oral, BID, Nico Hill NP gabapentin (Neurontin) capsule 300 mg, 300 mg, Oral, BID, Nico Hill NP HYDROcodone-acetaminophen ([place]) 5-325 MG per tablet 1 tablet, 1 tablet, Oral, q4h PRN OR HYDROcodone-acetaminophen ([place]) 5-325 MG per tablet 2 tablet, 2 tablet, Oral, q4h PRN, Nico Hill NP hydrOXYzine HCl (Atarax) tablet 10 mg, 10 mg, Oral, q6h PRN, Nico Hill NP levothyroxine (Synthroid, Levoxyl) tablet 88 mcg, 88 mcg, Oral, q24h, Nico Hill NP ondansetron ODT (Zofran-ODT) disintegrating tablet 4 mg, 4 mg, Oral, q8h PRN OR ondansetron (Zofran) injection 4 mg, 4 mg, IntraVENous, q6h PRN, Nico Hill NP [START ON 11/08/2024] sertraline (Zoloft) tablet 200 mg, 200 mg, Oral, Daily, Nico Hill NP sodium chloride 0.9 % infusion, 5-250 mL/hr, IntraVENous, PRN, Nico Hill NP sodium chloride 0.9% (NS) flush 10 mL, 10 mL, IntraVENous, 2 times per day, Nico Hill NP sodium chloride 0.9% (NS) flush 10 mL, 10 mL, IntraVENous, PRN, Nico Hill NP [5] No Known Allergies documented in this [facility]05-19-2025 NoteHNO ID: [id number] Author: CLEO CHACKO LPN Service: ? Author Type: LICENSED NURSE Type: Progress Notes Filed: 10/27/2024 14:09 Note Text: Prepared injections times two per Dr. Dumont's order and handed to him. Cleo Matchett, LP[facility] History of Present illness Narrative* Cleo Chacko LPN - 10/27/2024 2:02 PM EDT Prepared injections times two per Dr. Dumont's order and handed to him. Cleo Chacko LPN * Bharati Dumont Jr., MD - 10/27/2024 8:06 AM EDTAssociated Order(s): Additional Injections: L long A1; Additional Injections: L ring A1 Post-Procedure Diagnose(s): Trigger ring finger of left hand; Trigger middle finger of left hand 10/27/2024 :1940 Kathryn Sharma Dashawn HISTORY OF CHIEF COMPLAINT: Kathryn is seeing me as a follow up patient today. She complains of stiffness of all fingers. She also complains of locking of her right small finger. She has difficulty making a fist. She has right wrist pain. She states she has locking of all fingers of the left hand.She wakes up at night with her fingers locked and she has to manually pull her fingers out of flexio n. She denies any numbness or tingling, and otherwise has no complaints. PAST MEDICAL HISTORY Diagnosis Date Acquired hypothyroidism Acute gastritis Adjustment disorder with depressed mood Allergic rhinitis Alopecia Arthritis left knee replaced 3 times Atrophic vaginitis Basal cell carcinoma of nasolabial groove Chronic pain Chronic pelvic pain in female Constipation COPD (chronic obstructive pulmonary disease) (HCC) Depression Dysuria Epigastric pain Essential hypertension External ear conductive hearing loss Female stress incontinence Fibromyalgia Functional diarrhea Functional disorder of bladder Generalized abdominal pain H/O goiter s/p thyroidectomy Headache Hip pain History of fall History of kidney problems renal cell carcinoma Hyperkalemia Hyperlipidemia Impacted cerumen Incomplete emptying of bladder Incontinence of feces Increased frequency of urination Jaw pain Joint pain Leukocytosis Lumbar back pain Medication monitoring encounter Migraine with aura Mitral valve prolapse Muscle pain Muscle spasms of neck and/or neck Muscle weakness Must strain to pass urine Nausea and vomiting Neck pain Neoplasm of brain (HCC) Nocturia Obesity Osteoporosis Pain in lower limb Pain in wrist Painful urging to urinate Periumbilical pain Primary fibromyalgia syndrome Dr. Clay Primary malignant neoplasm of kidney (HCC) Refractory migraine with aura Restless legs Sleep deprivation Spasm of back muscles Temporomandibular joint disorder Tobacco dependence syndrome Tobacco use quit smoking in 04-25 Urinary incontinence, mixed Urinary tract infectious disease Viral gastroenteritis PAST SURGICAL HISTORY Procedure Laterality Date ANKLE SURGERY HX Right 2012 ankle ARTHRP KNE CONDYLE&PLATU MEDIAL&LAT COMPARTMENTS Left X3 CHOLECYSTECTOMY COLONOSCOPY 08/05/2018 Dr. Guan (repeat in 10 years) HAND SURGERY HX Right 04/2022 KIDNEY SURGERY HX Left 2003 Removed- renal cell CA LEG SURGERY HX x6 PAST SURGICAL HISTORY OF 06/26/2015 Temporary Implant placed right hip for bladder control PAST SURGICAL HISTORY OF 07/02/2015 Permanent implant placed right hip for bladder control PAST SURGICAL HISTORY OF Left Hip fracture PAST SURGICAL HISTORY OF Left Broken Femur PAST SURGICAL HISTORY OF Right 07/26/2023 rt ring finger release THYROID SURGERY HX 2003 partial TOTAL ABDOMINAL HYSTERECT W/WO RMVL TUBE OVARY BSO Social History Tobacco Use Smoking status: Former Current packs/day: 0.00 Types: Cigarettes Start date: 08/18/1958 Quit date: 08/18/2018 Years since quittin.1 Smokeless tobacco: Never Tobacco comments: One pack of cigarettes every 3 weeks Vaping Use Vaping status: Never Used Substance Use Topics Alcohol use: No Comment: Rarely Drug use: No Medications: Current Outpatient Medications Medication Sig Dispense Refill levothyroxine (SYNTHROID) 88 mcg tablet Take 1 tablet by mouth once daily. 90 tablet 1 sertraline (ZOLOFT) 100 mg tablet Take 2 tablets by mouth once daily. 180 tablet 0 SUMAtriptan (IMITREX) 50 mg tablet Take 1 tablet by mouth as needed (at onset of headache. May repeat after 2 hours.). 9 tablet 1 gabapentin (NEURONTIN) 300 mg capsule Take 300 mg by mouth two times a day. Pain MGMT No current facility-administered medications for this visit. ALLERGIES No Known Allergies There were no vitals taken for this visit. PHYSICAL EXAMINATION: General: she is a well developed, well nourished female Musculoskeletal: There is no swelling or ecchymosis. There are no skin lacerations or abrasions. There are no Heberden's or Tiffanie's nodes. There is no boutonniere or swan-neck deformity of the fingers. There is no ulnar drift of the fingers. There is no intrinsic muscular atrophy. There is a negative shoulder sign over the thumb CMC joint. There is no dorsal subluxation of the ulnar head. She has active triggering left middle finger and left ring finger. ASSESSMENT: Trigger middle finger of left hand Trigger ring finger of left hand PLAN: I did discuss splinting, and injection, vs surgical intervention. The patient wants to proceed with steroid injections. I did offer her steroid injections in her left middle and ring fingers. Iexplained the risks, benefits, and potential complications of injection. Patient understands that it may take 3-5 days before experiencing resolution of symptoms and agrees with the plan to proceed. I did offer her a Medrol Dose Chucky, but I will wait on this since she has an upcoming spine surgery. She will return in 6-8 weeks after her spine surgery, and we will reassess the need for a Medrol Dose Chucky. All of the patients questions were answered to her satisfaction. I reviewed diagnosis with patient verbally. We discussed her treatment options in depth and established a course of treatment suited to her. Additional Injections: L long A1 for trigger finger 10/27/2024 2:08 PM The procedure site was prepped in the usual sterile fashion. Medications: 6 mg betamethasone acetate-betamethasone sodium phosphate 6 mg/mL Anesthetics: 1 mL lidocaine (PF) 10 mg/mL (1 %) Outcome: tolerated well, no immediate complications Post-injection instructions were reviewed with the patient and the patient voiced understanding of these instructions. Informed Consent [place] Protocol A moment to CARE was completed. SIGN IN Personnel directly involved with the procedure wore the appropriate PPE. Patient/Surrogate Stated/Verified: Patient name, Date of , Relevant allergies and Intended procedure TIME OUT Relevant labs, photos, and/or imaging studies have been reviewed. Correct side/site marked and visible. Medications required for procedure verified. No implant(s) inserted. SIGN OUT All instruments, equipment, possible retained foreign bodies accounted for. Additional Injections: L ring A1 for trigger finger 10/27/2024 2:09 PM The procedure site was prepped in the usual sterile fashion. Medications: 6 mg betamethasone acetate-betamethasone sodium phosphate 6 mg/mL Anesthetics: 1 mL lidocaine (PF) 10 mg/mL (1 %) Outcome: tolerated well, no immediate complications Post-injection instructions were reviewed with the patient and the patient voiced understanding of these instructions. Informed Consent [place] Protocol A moment to CARE was completed. SIGN IN Personnel directly involved with the procedure wore the appropriate PPE. Patient/Surrogate Stated/Verified: Patient name, Date of , Relevant allergies and Intended procedure TIME OUT Relevant labs, photos, and/or imaging studies have been reviewed. Correct side/site marked and visible. Medications required for procedure verified. No implant(s) inserted. SIGN OUT All instruments, equipment, possible retained foreign bodies accounted for. Scribe Attestation: By signing my name below, I, Abena Mock MA, attest that this documentation has been prepared under the direction and in the presence of Bharati Dumont Jr., MD. Electronically Signed: Abena Mock MA, Scribe. October 27, 2024 1:45 PM. Clinician Attestation Statement: The information in this document, created by the biomedical photographer for me, accurately reflects the services I personally performed and the decisions made by me. I have reviewed and approved this document for accuracy. Bharati Dumont MD Please note: This note has been produced using speech recognition software and may contain errors related to that system including grammar, punctuation, spelling, gender and words and phrases that may be inappropriate. documented in this encounterL[facility] NoteHNO ID: [id number] Author: BHARATI DUMONT JR, MD Service: ? Author Type: Physician Type: Progress Notes Filed: 10/27/2024 14:09 Note Text: 10/27/2024 :1940 Kathryn Tamez HISTORY OF CHIEF COMPLAINT: Kathryn is seeing me as a follow up patient today. She complains of stiffness of all fingers. She also complains of locking of her right small finger. She has difficulty making a fist. She has right wrist pain. She states she has locking of all fingers of the left hand. She wakes up at night with her fingers locked and she has to manually pull her fingers out of flexion. She denies any numbness or tingling, and otherwise has no complaints. PAST MEDICAL HISTORY Diagnosis Date Acquired hypothyroidism Acute gastritis Adjustment disorder with depressed mood Allergic rhinitis Alopecia Arthritis left knee replaced 3 times Atrophic vaginitis Basal cell carcinoma of nasolabial groove Chronic pain Chronic pelvic pain in female Constipation COPD (chronic obstructive pulmonary disease) (HCC) Depression Dysuria Epigastric pain Essential hypertension External ear conductive hearing loss Female stress incontinence Fibromyalgia Functional diarrhea Functional disorder of bladder Generalized abdominal pain H/O goiter s/p thyroidectomy Headache Hip pain History of fall History of kidney problems renal cell carcinoma Hyperkalemia Hyperlipidemia Impacted cerumen Incomplete emptying of bladder Incontinence of feces Increased frequency of urination Jaw pain Joint pain Leukocytosis Lumbar back pain Medication monitoring encounter Migraine with aura Mitral valve prolapse Muscle pain Muscle spasms of neck and/or neck Muscle weakness Must strain to pass urine Nausea and vomiting Neck pain Neoplasm of brain (HCC) Nocturia Obesity Osteoporosis Pain in lower limb Pain in wrist Painful urging to urinate Periumbilical pain Primary fibromyalgia syndrome Dr. Clay Primary malignant neoplasm of kidney (HCC) Refractory migraine with aura Restless legs Sleep deprivation Spasm of back muscles Temporomandibular joint disorder Tobacco dependence syndrome Tobacco use quit smoking in 04-25 Urinary incontinence, mixed Urinary tract infectious disease Viral gastroenteritis PAST SURGICAL HISTORY Procedure Laterality Date ANKLE SURGERY HX Right 2013 ankle ARTHRP KNE CONDYLEANDPLATU MEDIALANDLAT COMPARTMENTS Left X3 CHOLECYSTECTOMY COLONOSCOPY 08/05/2018 Dr. Guan (repeat in 10 years) HAND SURGERY HX Right 04/2022 KIDNEY SURGERY HX Left 2004 Removed- renal cell CA LEG SURGERY HX x6 PAST SURGICAL HISTORY OF 06/26/2015 Temporary Implant placed right hip for bladder control PAST SURGICAL HISTORY OF 07/02/2015 Permanent implant placed right hip for bladder control PAST SURGICAL HISTORY OF Left Hip fracture PAST SURGICAL HISTORY OF Left Broken Femur PAST SURGICAL HISTORY OF Right 07/26/2023 rt ring finger release THYROID SURGERY HX 2004 partial TOTAL ABDOMINAL HYSTERECT W/WO RMVL TUBE OVARY BSO Social History Tobacco Use Smoking status: Former Current packs/day: 0.00 Types: Cigarettes Start date: 08/18/1958 Quit date: 08/18/2018 Years since quittin.1 Smokeless tobacco: Never Tobacco comments: One pack of cigarettes every 3 weeks Vaping Use Vaping status: Never Used Substance Use Topics Alcohol use: No Comment: Rarely Drug use: No Medications: Current Outpatient Medications Medication Sig Dispense Refill levothyroxine (SYNTHROID) 88 mcg tablet Take 1 tablet by mouth once daily. 90 tablet 1 sertraline (ZOLOFT) 100 mg tablet Take 2 tablets by mouth once daily. 180 tablet 0 SUMAtriptan (IMITREX) 50 mg tablet Take 1 tablet by mouth as needed (at onset of headache. May repeat after 2 hours.). 9 tablet 1 gabapentin (NEURONTIN) 300 mg capsule Take 300 mg by mouth two times a day. Pain MGMT No current facility-administered medications for this visit. ALLERGIES No Known Allergies There were no vitals taken for this visit. PHYSICAL EXAMINATION: General: she is a well developed, well nourished female Musculoskeletal: There is no swelling or ecchymosis. There are no skin lacerations or abrasions. There are no Heberden's or Tiffanie's nodes. There is no boutonniere or swan-neck deformity of the fingers. There is no ulnar drift of the fingers. There is no intrinsic muscular atrophy. There is a negative shoulder sign over the thumb CMC joint. There is no dorsal subluxation of the ulnar head. She has active triggering left middle finger and left ring finger. ASSESSMENT: Trigger middle finger of left hand Trigger ring finger of left hand PLAN: I did discuss splinting, and injection, vs surgical intervention. The patient wants to proceed with steroid injections. I did offer her steroid injections in her left middle and ring finger (more content not included)... [facility]05-12-2025 Telephone encounter Note* Telephone Encounter - Queenie Kirkpatrick - 10/20/2024 2:11 PM EDT Pt's form faxed: Fax Sent To: [facility] Stephy/Dr Morrison Document: Surgical Optimization Form, *Last OV, and ECG F: [phone] On October 20, 2024 2:12 PM Queenie Kirkpatrick October 20, 2024 2:12 PM [facility]05-12-[facility] Miscellaneous Notes* Telephone Encounter - Queenie Kirkpartick - 10/20/2024 2:11 PM EDT Pt's form faxed: Fax Sent To: [facility] Ortho/Dr Morrison Document: Surgical Optimization Form, *Last OV, and ECG F: [phone] On October 20, 2024 2:12 PM Queenie Kirkpatrick October 20, 2024 2:12 PM documented in this encounterLake[facility]05-12-2025 NoteHNO ID: [id number] Author: KEVIN WOOD MD Service: ? Author Type: Physician Type: Progress Notes Filed: 10/20/2024 14:01 Note Text: CC: Preoperative Risk Assessment and Evaluation S: 84 year old female with history of migraines, hypothyroidism, MDD, ARABELLA, COPD presents for Preoperative Risk Assessment and Evaluation. Surgery - Posterior Fusion L2-3-4-5, Revision Decompression L2-3-4-5, Pedicle Instrumentation, Local Bone Allograft Date - 11/04/2024 Surgeon - Dr. Cali Morrison No prior reactions to anesthesia. No changes since last visit August 2024. Treated for UTI - asymptomatic today. Recent UA wnl. Revised Cardiac Risk Index: (>1 = high risk) - High risk surgery (intraperitoneal, intrathoracic or supra-inguinal vascular procedures): No - History of ischemic heart disease: No - History of CHF: No - History of CVA or TIA: No - Preop treatment with Insulin: No - Preop serum Cr > 2.0: No (may also use cardiac complication risk at ACS NSQIP [email or web address]): (> 1% = high risk) 0-3 = low risk 4+ = high risk Functional Assessment: - Climb a flight of stairs or walk up a hill? 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 Yes (4.5) SOCIAL HISTORY: Tobacco: quit smoking 4 years ago. Alcohol: very rarely. CHIDI screen: - Snoring: Yes - Tiredness: No - Observed Apnea: No - Hypertension: No - BMI > 35: No - Age > 50: Yes - Neck circumference > 17 in: No - Male gender: No MEDICAL HISTORY PAST MEDICAL HISTORY PAST MEDICAL HISTORY Diagnosis Date Acquired hypothyroidism Acute gastritis Adjustment disorder with depressed mood Allergic rhinitis Alopecia Arthritis left knee replaced 3 times Atrophic vaginitis Basal cell carcinoma of nasolabial groove Chronic pain Chronic pelvic pain in female Constipation COPD (chronic obstructive pulmonary disease) (HCC) Depression Dysuria Epigastric pain Essential hypertension External ear conductive hearing loss Female stress incontinence Fibromyalgia Functional diarrhea Functional disorder of bladder Generalized abdominal pain H/O goiter s/p thyroidectomy Headache Hip pain History of fall History of kidney problems renal cell carcinoma Hyperkalemia Hyperlipidemia Impacted cerumen Incomplete emptying of bladder Incontinence of feces Increased frequency of urination Jaw pain Joint pain Leukocytosis Lumbar back pain Medication monitoring encounter Migraine with aura Mitral valve prolapse Muscle pain Muscle spasms of neck and/or neck Muscle weakness Must strain to pass urine Nausea and vomiting Neck pain Neoplasm of brain (HCC) Nocturia Obesity Osteoporosis Pain in lower limb Pain in wrist Painful urging to urinate Periumbilical pain Primary fibromyalgia syndrome Dr. Clay Primary malignant neoplasm of kidney (HCC) Refractory migraine with aura Restless legs Sleep deprivation Spasm of back muscles Temporomandibular joint disorder Tobacco dependence syndrome Tobacco use quit smoking in 04-25 Urinary incontinence, mixed Urinary tract infectious disease Viral gastroenteritis SURGICAL HISTORY PAST SURGICAL HISTORY PAST SURGICAL HISTORY Procedure Laterality Date ANKLE SURGERY HX Right 2013 ankle ARTHRP KNE CONDYLEANDPLATU MEDIALANDLAT COMPARTMENTS Left X3 CHOLECYSTECTOMY COLONOSCOPY 08/05/2018 Dr. Guan (repeat in 10 years) HAND SURGERY HX Right 04/2022 KIDNEY SURGERY HX Left 2003 Removed- renal cell CA LEG SURGERY HX x6 PAST SURGICAL HISTORY OF 06/26/2015 Temporary Implant placed right hip for bladder control PAST SURGICAL HISTORY OF 07/02/2015 Permanent implant placed right hip for bladder control PAST SURGICAL HISTORY OF Left Hip fracture PAST SURGICAL HISTORY OF Left Broken Femur PAST SURGICAL HISTORY OF Right 07/26/2023 rt ring finger release THYROID SURGERY HX 2004 partial TOTAL ABDOMINAL HYSTERECT W/WO RMVL TUBE OVARY BSO MEDICATIONS AND ALLERGIES REVIEWED. LATEX ALLERGY: No ROS: GENERAL: No weight loss, malaise or fevers HEENT: Negative for frequent or significant headaches, No changes in hearing or vision, no nose bleeds or other nasal problems RESPIRATORY: Negative for cough, hemoptysis, wheezing, COPD, dyspnea or shortness of breath CARDIOVASCULAR: Negative for chest pain, leg swelling, hypertension, CHF or palpitations : No history of dysuria, frequency or incontinence SKIN: Negative for lesions, rash, and itching NEURO: No history of headaches, syncope, paralysis, seizures or tremors O: PHYSICAL EXAM: There were no vitals taken for this visit. There is no height or weight on file to calculate BMI. -CMP, CBC, TSH, Lipid Panel, UA reviewed. UA appears contaminated. General Appearance: Well appearing, alert, in no acute distress, well-hydrated, well nourished.. Skin: Skin color, texture, turgor normal, no hernandez (more content not included)... [facility]05-12-2025 History of Present illness Narrative* Kevin Wood MD - 10/20/2024 1:50 PM EDT CC: Preoperative Risk Assessment and Evaluation S: 84 year old female with history of migraines, hypothyroidism, MDD, ARABELLA, COPD presents for Preoperative Risk Assessment and Evaluation. Surgery - Posterior Fusion L2-3-4-5, Revision Decompression L2-3-4-5, Pedicle Instrumentation, Local Bone Allograft Date - 11/04/2024 Surgeon - Dr. Cali Morrison No prior reactions to anesthesia. No changes since last visit August 2024. Treated for UTI - asymptomatic today. Recent UA wnl. Revised Cardiac Risk Index: (>1 = high risk) - High risk surgery (intraperitoneal, intrathoracic or supra-inguinal vascular procedures): No - History of ischemic heart disease: No - History of CHF: No - History of CVA or TIA: No - Preop treatment with Insulin: No - Preop serum Cr > 2.0: No (may also use cardiac complication risk at ACS NSQIP [email or web address]): (> 1% = high risk) 0-3 = low risk 4+ = high risk Functional Assessment: - Climb a flight of stairs or walk up a hill? 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 Yes (4.5) SOCIAL HISTORY: Tobacco: quit smoking 4 years ago. Alcohol: very rarely. CHIDI screen: - Snoring: Yes - Tiredness: No - Observed Apnea: No - Hypertension: No - BMI > 35: No - Age > 50: Yes - Neck circumference > 17 in: No - Male gender: No MEDICAL HISTORY PAST MEDICAL HISTORY PAST MEDICAL HISTORY Diagnosis Date Acquired hypothyroidism Acute gastritis Adjustment disorder with depressed mood Allergic rhinitis Alopecia Arthritis left knee replaced 3 times Atrophic vaginitis Basal cell carcinoma of nasolabial groove Chronic pain Chronic pelvic pain in female Constipation COPD (chronic obstructive pulmonary disease) (HCC) Depression Dysuria Epigastric pain Essential hypertension External ear conductive hearing loss Female stress incontinence Fibromyalgia Functional diarrhea Functional disorder of bladder Generalized abdominal pain H/O goiter s/p thyroidectomy Headache Hip pain History of fall History of kidney problems renal cell carcinoma Hyperkalemia Hyperlipidemia Impacted cerumen Incomplete emptying of bladder Incontinence of feces Increased frequency of urination Jaw pain Joint pain Leukocytosis Lumbar back pain Medication monitoring encounter Migraine with aura Mitral valve prolapse Muscle pain Muscle spasms of neck and/or neck Muscle weakness Must strain to pass urine Nausea and vomiting Neck pain Neoplasm of brain (HCC) Nocturia Obesity Osteoporosis Pain in lower limb Pain in wrist Painful urging to urinate Periumbilical pain Primary fibromyalgia syndrome Dr. Clay Primary malignant neoplasm of kidney (HCC) Refractory migraine with aura Restless legs Sleep deprivation Spasm of back muscles Temporomandibular joint disorder Tobacco dependence syndrome Tobacco use quit smoking in 04-25 Urinary incontinence, mixed Urinary tract infectious disease Viral gastroenteritis SURGICAL HISTORY PAST SURGICAL HISTORY PAST SURGICAL HISTORY Procedure Laterality Date ANKLE SURGERY HX Right 2013 ankle ARTHRP KNE CONDYLE&PLATU MEDIAL&LAT COMPARTMENTS Left X3 CHOLECYSTECTOMY COLONOSCOPY 08/05/2018 Dr. Guan (repeat in 10 years) HAND SURGERY HX Right 04/2022 KIDNEY SURGERY HX Left 2003 Removed- renal cell CA LEG SURGERY HX x6 PAST SURGICAL HISTORY OF 06/26/2015 Temporary Implant placed right hip for bladder control PAST SURGICAL HISTORY OF 07/02/2015 Permanent implant placed right hip for bladder control PAST SURGICAL HISTORY OF Left Hip fracture PAST SURGICAL HISTORY OF Left Broken Femur PAST SURGICAL HISTORY OF Right 07/26/2023 rt ring finger release THYROID SURGERY HX 2004 partial TOTAL ABDOMINAL HYSTERECT W/WO RMVL TUBE OVARY BSO MEDICATIONS AND ALLERGIES REVIEWED. LATEX ALLERGY: No ROS: GENERAL: No weight loss, malaise or fevers HEENT: Negative for frequent or significant headaches, No changes in hearing or vision, no nose bleeds or other nasal problems RESPIRATORY: Negative for cough, hemoptysis, wheezing, COPD, dyspnea or shortness of breath CARDIOVASCULAR: Negative for chest pain, leg swelling, hypertension, CHF or palpitations : No history of dysuria, frequency or incontinence SKIN: Negative for lesions, rash, and itching NEURO: No history of headaches, syncope, paralysis, seizures or tremors O: PHYSICAL EXAM: There were no vitals taken for this visit. There is no height or weight on file to calculate BMI. -CMP, CBC, TSH, Lipid Panel, UA reviewed. UA appears contaminated. General Appearance: Well appearing, alert, in no acute distress, well-hydrated, well nourished.. Skin: Skin color, texture, turgor normal, no suspicious rashes or lesions. Head: Normocephalic, no masses, lesions, tenderness or abnormalities. Eyes: Anicteric sclera. Pupils are equally round and reactive to light. Extraocular movements are intact. . Ears: External ears normal, canals clear. Nose/Sinuses: Nares normal, septum midline, mucosa normal, no drainage or sinus tenderness. Oropharynx: Dentures and Lips, mucosa, and tongue normal, teeth and gums normal, oropharynx normal. Lungs: Lungs clear to auscultation. No wheezing, rhonchi, rales.. Heart: RRR without murmur, gallop, or rubs. No ectopy. Abdomen: Normal abdominal exam, Abdomen soft, non-tender. Bowel sounds normal. No masses, organomegaly. Musculoskeletal: No joint swelling, deformity, or tenderness, Spine ROM limited 2/2 pain.. Neurologic: Gait normal. Reflexes normal and symmetric. Sensation grossly intact.. A/P: 84 year old female presenting for preoperative risk assessment and evaluation ASSESSMENT/PLAN: 1. Preop examination - ICD9: V72.84, ICD10: Z01.818 Patient is medically optimized to undergo her posterior fusion, revision decompression, pedicle instrumentation, local bone allograft. Labs and EKG reviewed. Patient has minor clinical predictors of increased perioperative cardiovascular risk. Patient is scheduled for a intermediate- risk procedure. Functional Capacity: >4 METs In careful consideration of the patient's history, physical, and relevant medical records I believethe patient is LOW RISK for cardiovascular complications from the proposed procedure. - Generally, high risk patients who are able to achieve >4 METS require no further cardiovascular testing. - I recommend no further cardiovascular testing. EKG completed and reviewed 10/20/2024. 2. 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 - Refilled levothyroxine prescription. 3. Adjustment disorder with mixed anxiety and depressed mood (F43.23) Stable on current medication regimen. - Refilled sertraline prescription. 4. Migraine without status migrainosus, not intractable, unspecified migraine type (G43.909) Stable on current medication regimen. - Refilled sumatriptan prescription. Kevin Wood MD Oct 20 2024 1:59 PM documented in this encounterLake[facility]04-29-2025 Telephone encounter Note * Telephone Encounter - Dena Guy - 10/07/2024 10:39 AM EDT Pre op form from [facility] faxed in today. Pt scheduled with on 10/20/24 at 1:20. Form in purple folder on [facility]'s desk. Dena Guy October 07, 2024 10:40 AM [facility]04-29-2025 Miscellaneous Notes* Telephone Encounter - Dena Guy - 10/07/2024 10:39 AM EDT Pre op form from [facility] faxed in today. Pt scheduled with on 10/20/24 at 1:20. Form in purple folder on [facility]'s desk. Dena Guy October 07, 2024 10:40 AM documented in this encounterLake[facility]04-23-[facility]25 Telephone encounter Note * Telephone Encounter - Dena Guy - 10/01/2024 2:09 PM EDT Pt LVM stating that she was returning a missed call from the office. Please advise. Dena Guy October 01, 2024 2:10 PM [facility]04-23-2025 Miscellaneous Notes* Telephone Encounter - Dena Guy - 10/01/2024 2:09 PM EDT Pt LVM stating that she was returning a missed call from the office. Please advise. Dena Guy October 01, 2024 2:10 PM * Telephone Encounter - Antonieta Junior MA - 10/01/2024 12:57 PM EDT Left vm to call the office back regarding results. Antonieta Junior MA * Telephone Encounter - Antonieta Junior MA - 10/01/2024 12:51 PM EDT ----- Message from Kevin Wood MD sent at 10/01/2024 11:05 AM EDT ----- Please inform the patient that her urine appears to be clear when infection. Please also let her surgeon - Dr. Morrison know. We can send the results of the UA to their office. Thanks. Kevin Wood MD documented in this encounterLake[facility]04-23-2025 Telephone encounter Note * Telephone Encounter - Antonieta Junior MA - 10/01/2024 12:57 PM EDT Left vm to call the office back regarding results. Antonieta Junior MA [facility] Work Phone: [phone] Telephone encounter Note* Telephone Encounter - Antonieta Junior MA - 10/01/2024 12:51 PM EDT ----- Message from Kevin Wood MD sent at 10/01/2024 11:05 AM EDT ----- Please inform the patient that her urine appears to be clear when infection. Please also let her surgeon - Dr. Morrison know. We can send the results of the UA to their office. Thanks. Kevin Wood MD [facility]04-22-2025 Note* Addendum Note - Kevin Wood MD - 09/30/2024 8:21 AM EDTAddended by: KEVIN WOOD on: 09/30/2024 08:21 AM Modules accepted: Orders [facility]04-22-2025 Miscellaneous Notes* Addendum Note - Kevin Wood MD - 09/30/2024 8:21 AM EDTAddended by: KEVIN WOOD on: 09/30/2024 08:21 AM Modules accepted: Orders * Telephone Encounter - Maren Lobato MA - 09/29/2024 3:27 PM EDT Patient notified Patient states she has to call urology back for an appointment Maren Lobato MA * Addendum Note - Kevin Wood MD - 09/29/2024 3:15 PM EDTAddended by: KEVIN WOOD on: 09/29/2024 03:15 PM Modules accepted: Orders * Telephone Encounter - Kevin Wood MD - 09/29/2024 3:14 PM EDT I have placed an order for urine culture that needs to be repeated again to make sure she is cleared. Has she established with urology? * Telephone Encounter - Iva Bullock - 09/29/2024 10:07 AM EDT The pt called in to let pcp know that she has finished her antibiotic and would like to know if sheis cleared for her back surgery. The pt was previously seen by for her preop apt. She also was seen by Cj for abnormal urinalysis and was told to finish medication then let office know for next steps. She would like a call back on if she needs scheduled again or to retake urian test. Please advise thank you Iva Bullock September 29, 2024 10:13 AM documented in this encounterLake[facility]04-21-2025 Telephone encounter Note * Telephone Encounter - Maren Lobato MA - 09/29/2024 3:27 PM EDT Patient notified Patient states she has to call urology back for an appointment Maren Lobato MA [facility]04-21-2025 Note* Addendum Note - Kevin Wodo MD - 09/29/2024 3:15 PM EDTAddended by: KEVIN WOOD on: 09/29/2024 03:15 PM Modules accepted: Orders [facility]04-21-2025 Telephone encounter Note* Telephone Encounter - Kevin Wood MD - 09/29/2024 3:14 PM EDT I have placed an order for urine culture that needs to be repeated again to make sure she is cleared. Has she established with urology? [facility]04-21-[facility] Telephone encounter Note* Telephone Encounter - Iva Bullock - 09/29/2024 10:07 AM EDT The pt called in to let pcp know that she has finished her antibiotic and would like to know if sheis cleared for her back surgery. The pt was previously seen by for her preop apt. She also was seen by Cj for abnormal urinalysis and was told to finish medication then let office know for next steps. She would like a call back on if she needs scheduled again or to retake urian test. Please advise thank you Iva Bullock September 29, 2024 10:13 AM [facility]04-09-2025 Telephone encounter Note* Telephone Encounter - Iona Navarrete MA - 09/17/2024 11:13 AM EDT Patient informed Iona Navarrete MA [facility]04-09-2025 Telephone encounter Note* Telephone Encounter - Iona Navarrete MA - 09/17/2024 11:13 AM EDT ----- Message from Cj Dale PA-C sent at 09/17/2024 9:56 AM EDT ----- Please inform patient that her urine showed 3 or more organisms, suggesting a contaminated specimen. She will need to repeat the urine culture. Order placed for patient to obtain at the lab. Cj Dale PA-C [facility]04-09-2025 Miscellaneous Notes* Telephone Encounter - Iona Navarrete MA - 09/17/2024 11:13 AM EDT Patient informed Iona Navarrete MA * Telephone Encounter - Iona Navarrete MA - 09/17/2024 11:13 AM EDT ----- Message from Cj Dale PA-C sent at 09/17/2024 9:56 AM EDT ----- Please inform patient that her urine showed 3 or more organisms, suggesting a contaminated specimen. She will need to repeat the urine culture. Order placed for patient to obtain at the lab. Cj Dale PA-C documented in this encounterLakehealth [facility]04-08-2025 Telephone encounter Note * Telephone Encounter - Dena Guy - 09/16/2024 9:36 AM EDT Samantha from 's office LVM wanting to know if we were getting the results from the UA'sthat they are doing. I returned Samantha's call and advised her of the appointment notes from the Pt's appointment withCj yesterday 09/15/24. Samantha appreciated the update. Dena Guy September 16, 2024 9:38 AM [facility]04-08-2025 Miscellaneous Notes* Telephone Encounter - Dena Guy - 09/16/2024 9:36 AM EDT Samantha from 's office LVM wanting to know if we were getting the results from the UA'sthat they are doing. I returned Samantha's call and advised her of the appointment notes from the Pt's appointment withCj yesterday 09/15/24. Samantha appreciated the update. Dena Guy September 16, 2024 9:38 AM documented in this encounterLakehealth [facility]04-07-2025 NoteHNO ID: [id number] Author: GEMMA TELLES MA Service: ? Author Type: Landscaping Manager Type: Progress Notes Filed: 09/15/2024 15:39 Note Text: Urine dip back office completed and result strip given to provider for review. Urine culture collected and sent to lab for processing. [facility]elles [facility] History of Present illness Narrative* Gemma Telles MA - 09/15/2024 2:55 PM EDT Urine dip back office completed and result strip given to provider for review. Urine culture collected and sent to lab for processing. Gemma Telles MA * Cj Dale PA-C - 09/15/2024 2:30 PM EDT Images from the original note were not included. [facility] Care [address] [address] Date of Evaluation: 09/15/2024 Patient Name: Kathryn Tamez : 1940 Chief Complaint: Patient presents with: UTI Subjective Ms. Tamez is a 84 year old female who presents with the following complaint(s): abnormal UA/concerns for UTI HPI Patient of Leonardo Lyles APRN.CNP, who is new to [place] Patient was scheduled to have surgery with Dr. Cali Morrison at [facility] tomorrow, 09/16/24 ( Posterior Fusion L2-3-4-5, Revision Decompression L2-3-4-5, Pedicle Instrumentation, Local Bone Allograft ) but surgery was canceled due to a positive urine culture on Sunday for pseudomonas (preliminary result). Patient denies any symptoms of a UTI. She was treated for a + UA on 08/19 with Macrobid for 5 days and then recently treated with Cipro for 7 days on 09/05-09/12 based on urine culture results from Dr. Morrison's office. Patient reports that surgery has not been rescheduled yet. Review of Systems Constitutional: Negative for appetite change, chills, fatigue and fever. Respiratory: Negative for cough, shortness of breath and wheezing. Cardiovascular: Negative for chest pain and palpitations. Gastrointestinal: Negative for abdominal pain, nausea and vomiting. Genitourinary: Negative for difficulty urinating, dysuria, flank pain, frequency, hematuria and urgency. Musculoskeletal: Positive for back pain (chronic). PAST MEDICAL HISTORY Diagnosis Date Acquired hypothyroidism Acute gastritis Adjustment disorder with depressed mood Allergic rhinitis Alopecia Arthritis left knee replaced 3 times Atrophic vaginitis Basal cell carcinoma of nasolabial groove Chronic pain Chronic pelvic pain in female Constipation COPD (chronic obstructive pulmonary disease) (HCC) Depression Dysuria Epigastric pain Essential hypertension External ear conductive hearing loss Female stress incontinence Fibromyalgia Functional diarrhea Functional disorder of bladder Generalized abdominal pain H/O goiter s/p thyroidectomy Headache Hip pain History of fall History of kidney problems renal cell carcinoma Hyperkalemia Hyperlipidemia Impacted cerumen Incomplete emptying of bladder Incontinence of feces Increased frequency of urination Jaw pain Joint pain Leukocytosis Lumbar back pain Medication monitoring encounter Migraine with aura Mitral valve prolapse Muscle pain Muscle spasms of neck and/or neck Muscle weakness Must strain to pass urine Nausea and vomiting Neck pain Neoplasm of brain (HCC) Nocturia Obesity Osteoporosis Pain in lower limb Pain in wrist Painful urging to urinate Periumbilical pain Primary fibromyalgia syndrome Dr. Clay Primary malignant neoplasm of kidney (HCC) Refractory migraine with aura Restless legs Sleep deprivation Spasm of back muscles Temporomandibular joint disorder Tobacco dependence syndrome Tobacco use quit smoking in 04-25 Urinary incontinence, mixed Urinary tract infectious disease Viral gastroenteritis PAST SURGICAL HISTORY Procedure Laterality Date ANKLE SURGERY HX Right 2013 ankle ARTHRP KNE CONDYLE&PLATU MEDIAL&LAT COMPARTMENTS Left X3 CHOLECYSTECTOMY COLONOSCOPY 08/05/2018 Dr. Guan (repeat in 10 years) HAND SURGERY HX Right 04/2022 KIDNEY SURGERY HX Left 2003 Removed- renal cell CA LEG SURGERY HX x6 PAST SURGICAL HISTORY OF 06/26/2015 Temporary Implant placed right hip for bladder control PAST SURGICAL HISTORY OF 07/02/2015 Permanent implant placed right hip for bladder control PAST SURGICAL HISTORY OF Left Hip fracture PAST SURGICAL HISTORY OF Left Broken Femur PAST SURGICAL HISTORY OF Right 07/26/2023 rt ring finger release THYROID SURGERY HX 2004 partial TOTAL ABDOMINAL HYSTERECT W/WO RMVL TUBE OVARY BSO FAMILY HISTORY Problem Relation Age of Onset Cancer Father Hypertension Sister Stroke Sister Coronary Artery Disease Sister Diabetes Sister Leukemia Sister Colon Cancer No Family History Social History Tobacco Use Smoking status: Former Current packs/day: 0.00 Types: Cigarettes Start date: 08/18/1958 Quit date: 08/18/2018 Years since quittin.0 Smokeless tobacco: Never Tobacco comments: One pack of cigarettes every 3 weeks Vaping Use Vaping status: Never Used Substance Use Topics Alcohol use: No Comment: Rarely Drug use: No Current Outpatient Medications Medication Sig sertraline (ZOLOFT) 100 mg tablet Take 2 tablets by mouth once daily. levothyroxine (SYNTHROID) 88 mcg tablet Take 1 tablet by mouth once daily. SUMAtriptan (IMITREX) 50 mg tablet Take 1 tablet (50 mg) by mouth as needed (at onset of headache. May repeat after 2 hours.). gabapentin (NEURONTIN) 300 mg capsule Take 300 mg by mouth two times a day. Pain MGMT No current facility-administered medications for this visit. I have confirmed and edited as necessary the chief complaint, medications, past medical, family andsocial histories obtained by others. Objective BP 132/74 Pulse 63 Temp 98 Wt 122 lb 9.6 oz (55.6kg) SpO2 97% Physical Exam Vitals and nursing note reviewed. Constitutional: General: She is not in acute distress. Appearance: Normal appearance. She is not ill-appearing, toxic-appearing or diaphoretic. HENT: Mouth/Throat: Mouth: Mucous membranes are moist. Cardiovascular: Rate and Rhythm: Normal rate and regular rhythm. Pulses: Normal pulses. Heart sounds: Normal heart sounds. Pulmonary: Effort: Pulmonary effort is normal. Breath sounds: Normal breath sounds. Abdominal: General: Bowel sounds are normal. There is no distension. Palpations: Abdomen is soft. Tenderness: There is no abdominal tenderness. There is no right CVA tenderness, left CVA tenderness, guarding or rebound. Skin: General: Skin is warm and dry. Neurological: Mental Status: She is alert and oriented to person, place, and time. Mental status is at baseline. Psychiatric: Mood and Affect: Mood normal. Behavior: Behavior normal. Thought Content: Thought content normal. Judgment: Judgment normal. Data Reviewed: Most recent labs and imaging results. Latest Ref Rng 09/15/2024 GLUCOSE UA (POCT) Negative mg/dL Negative BILIRUBIN UA (POCT) Negative Negative KETONE UA (POCT) Negative mg/dL Negative SPECIFIC GRAVITY UA (POCT) 1.005 - 1.030 1.010 HEMOGLOBIN/BLOOD UA (POCT) Negative Small ! PH UA (POCT) 4.5 - 8.0 7.0 PROTEIN UA (POCT) Negative mg/dL Trace ! UROBILINOGEN UA (POCT) Normal E.U./dL 0.2 NITRITE UA (POCT) Negative Negative LEUKOCYTES UA (POCT) Negative Trace ! COLOR UA (POCT) Yellow CLARITY UA (POCT) Clear Legend: ! Abnormal ASSESSMENT/PLAN: 1. Abnormal urinalysis - ICD9: 791.9, ICD10: R82.90 (primary diagnosis) 2. Recurrent UTI (urinary tract infection) - ICD9: 599.0, ICD10: N39.0 - UA positive for trace fahad esterase, hematuria, and proteinuria - Send urine for culture - Discussed with PCP; since patient recently finished 2nd abx on Sunday and is asymptomatic, hold off on treating until final urine culture results from collect today come in. Overall UA has improvedsince UA from early August and from UA on Sunday through [facility]. Patient expresses understanding of plan. - If positive results continue, consider consult to urology - UA DIP B/O - BACTERIAL CULTURE, URINE Cj Dale PA-C Return if symptoms worsen or fail to improve. Discussed the above with the patient using shared decision making. The patient is in agreement with the diagnostic and treatment plans. documented in this encounterLakehealth [facility]04-07-2025 NoteHNO ID: [id number] Author: CJ DALE PA-C Service: ? Author Type: Physician Electric System Operator Type: Progress Notes Filed: 09/15/2024 15:39 Note Text: [facility] Primary Care [address] [address] Date of Evaluation: 09/15/2024 Patient Name: Kathryn Tamez : 1940 Chief Complaint: Patient presents with: UTI Subjective Ms. Tamez is a 84 year old female who presents with the following complaint(s): abnormal UA/concerns for UTI HPI Patient of Leonardo Lyles APRN.CNP, who is new to me Patient was scheduled to have surgery with Dr. Cali Morrison at [facility] tomorrow, 09/16/24 ( Posterior Fusion L2-3-4-5, Revision Decompression L2-3-4-5, Pedicle Instrumentation, Local Bone Allograft ) but surgery was canceled due to a positive urine culture on Sunday for pseudomonas (preliminary result). Patient denies any symptoms of a UTI. She was treated for a + UA on 08/19 with Macrobid for 5 days and then recently treated with Cipro for 7 days on 09/05-09/12 based on urine culture results from Dr. Morrison's office. Patient reports that surgery has not been rescheduled yet. Review of Systems Constitutional: Negative for appetite change, chills, fatigue and fever. Respiratory: Negative for cough, shortness of breath and wheezing. Cardiovascular: Negative for chest pain and palpitations. Gastrointestinal: Negative for abdominal pain, nausea and vomiting. Genitourinary: Negative for difficulty urinating, dysuria, flank pain, frequency, hematuria and urgency. Musculoskeletal: Positive for back pain (chronic). PAST MEDICAL HISTORY Diagnosis Date Acquired hypothyroidism Acute gastritis Adjustment disorder with depressed mood Allergic rhinitis Alopecia Arthritis left knee replaced 3 times Atrophic vaginitis Basal cell carcinoma of nasolabial groove Chronic pain Chronic pelvic pain in female Constipation COPD (chronic obstructive pulmonary disease) (HCC) Depression Dysuria Epigastric pain Essential hypertension External ear conductive hearing loss Female stress incontinence Fibromyalgia Functional diarrhea Functional disorder of bladder Generalized abdominal pain H/O goiter s/p thyroidectomy Headache Hip pain History of fall History of kidney problems renal cell carcinoma Hyperkalemia Hyperlipidemia Impacted cerumen Incomplete emptying of bladder Incontinence of feces Increased frequency of urination Jaw pain Joint pain Leukocytosis Lumbar back pain Medication monitoring encounter Migraine with aura Mitral valve prolapse Muscle pain Muscle spasms of neck and/or neck Muscle weakness Must strain to pass urine Nausea and vomiting Neck pain Neoplasm of brain (HCC) Nocturia Obesity Osteoporosis Pain in lower limb Pain in wrist Painful urging to urinate Periumbilical pain Primary fibromyalgia syndrome Dr. Clay Primary malignant neoplasm of kidney (HCC) Refractory migraine with aura Restless legs Sleep deprivation Spasm of back muscles Temporomandibular joint disorder Tobacco dependence syndrome Tobacco use quit smoking in - Urinary incontinence, mixed Urinary tract infectious disease Viral gastroenteritis PAST SURGICAL HISTORY Procedure Laterality Date ANKLE SURGERY HX Right 2012 ankle ARTHRP KNE CONDYLEANDPLATU MEDIALANDLAT COMPARTMENTS Left X3 CHOLECYSTECTOMY COLONOSCOPY 08/05/2018 Dr. Guan (repeat in 10 years) HAND SURGERY HX Right 04/2022 KIDNEY SURGERY HX Left 2004 Removed- renal cell CA LEG SURGERY HX x6 PAST SURGICAL HISTORY OF 06/26/2015 Temporary Implant placed right hip for bladder control PAST SURGICAL HISTORY OF 07/02/2015 Permanent implant placed right hip for bladder control PAST SURGICAL HISTORY OF Left Hip fracture PAST SURGICAL HISTORY OF Left Broken Femur PAST SURGICAL HISTORY OF Right 07/26/2023 rt ring finger release THYROID SURGERY HX 2004 partial TOTAL ABDOMINAL HYSTERECT W/WO RMVL TUBE OVARY BSO FAMILY HISTORY Problem Relation Age of Onset Cancer Father Hypertension Sister Stroke Sister Coronary Artery Disease Sister Diabetes Sister Leukemia Sister Colon Cancer No Family History Social History Tobacco Use Smoking status: Former Current packs/day: 0.00 Types: Cigarettes Start date: [birth year]/18/1958 Quit date: 08/18/2018 Years since quittin.0 Smokeless tobacco: Never Tobacco comments: One pack of cigarettes every 3 weeks Vaping Use Vaping status: Never Used Substance Use Topics Alcohol use: No Comment: Rarely Drug use: No Current Outpatient Medications Medication Sig sertraline (ZOLOFT) 100 mg tablet Take 2 tablets by mouth once daily. levothyroxine (SYNTHROID) 88 mcg tablet Take 1 tablet by mouth once daily. SUMAtriptan (IMITREX) 50 mg tablet Take 1 table (more content not included)... [facility]04-03-2025 Telephone encounter Note* Telephone Encounter - Maren Lobato MA - 09/11/2024 11:07 AM EDT Lvm for return call Maren Lobato MA [facility]04-03-2025 Miscellaneous Notes* Telephone Encounter - Maren Lobato MA - 09/11/2024 11:07 AM EDT Lvm for return call Maren Lobato MA * Addendum Note - Leonardo Lyles APRN.CNP - 09/11/2024 11:04 AM EDTAddended by: LEONARDO LYLES on: 09/11/2024 11:04 AM Modules accepted: Orders * Telephone Encounter - Leonardo Lyles APRN.CNP - 09/11/2024 11:04 AM EDT Urinalysis ordered. The results should come back in the next few days if she gets it done today. Leonardo Lyles APRN.CNP * Telephone Encounter - Queenie Kirkpatrick - 09/11/2024 9:20 AM EDT Pt called into the office stating she is having surgery on (09-16-24). Pt states her lab showed signs of UTI and Dr Morrison would like another urine analysis done before her surgery, Pt states she is not experiencing any symptoms. Informed pt that we would inform PCP. To see if he wanted to order an analysis. Pt states she is going to call and call us back to see who should order the analysis forher. Pt is concerned that the results will not be back in time for her surgery. Please advise Queenie Kirkpatrick September 11, 2024 9:27 AM documented in this encounterLakehealth [facility]04-03-2025 Note* Addendum Note - Leonardo Lyles APRN.CNP - 09/11/2024 11:04 AM EDTAddended by: LEONARDO LYLES on: 09/11/2024 11:04 AM Modules accepted: Orders [facility]04-03-2025 Telephone encounter Note* Telephone Encounter - Leonardo Lyles APRN.CNP - 09/11/2024 11:04 AM EDT Urinalysis ordered. The results should come back in the next few days if she gets it done today. Leonardo Lyles APRN.CNP [facility]04-03-2025 Telephone encounter Note* Telephone Encounter - Queenie Kirkpatrick - 09/11/2024 9:20 AM EDT Pt called into the office stating she is having surgery on (09-16-24). Pt states her lab showed signs of UTI and Dr Morrison would like another urine analysis done before her surgery, Pt states she is not experiencing any symptoms. Informed pt that we would inform PCP. To see if he wanted to order an analysis. Pt states she is going to call and call us back to see who should order the analysis forher. Pt is concerned that the results will not be back in time for her surgery. Please advise Queenie Kirkpatrick September 11, 2024 9:27 AM [facility]03-28-2025 Telephone encounter Note* Telephone Encounter - Iona Navarrete MA - 09/05/2024 2:55 PM EDT Patient informed Iona Navarrete MA [facility]03-28-2025 Miscellaneous Notes* Telephone Encounter - Iona Navarrete MA - 09/05/2024 2:55 PM EDT Patient informed Iona Navarrete MA * Addendum Note - Yumiko Zapien DO - 09/05/2024 2:46 PM EDTAddended by: YUMIKO ZAPIEN on: 09/05/2024 02:46 PM Modules accepted: Orders * Telephone Encounter - Yumiko Zapien DO - 09/05/2024 2:45 PM EDT Let patient know that she cannot take the antibiotic for urinary tract infection with her Atarax. * Telephone Encounter - Dena Guy - 09/05/2024 1:16 PM EDT Samantha from 's office LVM asking if the pt will be put in antibiotics for the UTI and if she will have a follow up appointment to retest before her surgery on 09/16/24. Samantha can be reached at [phone]. Please advise. Dena Guy September 05, 2024 1:22 PM * Telephone Encounter - Misty Green - 09/05/2024 12:54 PM EDT Fax received from [facility], Dr. Morrison's office, regarding pt's UA culture results. Results given to covering provider, Dr. Zapien. Misty Green September 05, 2024 12:59 PM documented in this encounterLakehealth [facility] Center03-28-2025 Note* Addendum Note - Yumiko Zapien DO - 09/05/2024 2:46 PM EDTAddended by: YUMIKO ZAPIEN on: 09/05/2024 02:46 PM Modules accepted: Orders [facility]03-28-2025 Telephone encounter Note* Telephone Encounter - Yumiko Zapien DO - 09/05/2024 2:45 PM EDT Let patient know that she cannot take the antibiotic for urinary tract infection with her Atarax. [facility]03-28-[facility] Telephone encounter Note* Telephone Encounter - Dena Guy - 09/05/2024 1:16 PM EDT Samantha from 's office LVM asking if the pt will be put in antibiotics for the UTI and if she will have a follow up appointment to retest before her surgery on 09/16/24. Samantha can be reached at [phone]. Please advise. Dena Guy September 05, 2024 1:22 PM [facility]03-28-2025 Telephone encounter Note* Telephone Encounter - Misty Green - 09/05/2024 12:54 PM EDT Fax received from [facility]ib[facility], Dr. Morrison's office, regarding pt's UA culture results. Results given to covering provider, Dr. Zapien. Misty Green September 05, 2024 12:59 PM [facility]03-26-2025 Telephone encounter Note* Telephone Encounter - Misty Green - 09/03/2024 2:31 PM EDT Pt's clearance faxed: Fax Sent To: Meghan [facility]ib[facility], Attn: Dr. Morrison Document: Last OV and Pre-Operative Clearance Form F: [phone] On September 03, 2024 2:32 PM Misty Green September 03, 2024 2:32 PM [facility]03-26-2025 Miscellaneous Notes* Telephone Encounter - Misty Green - 09/03/2024 2:31 PM EDT Pt's clearance faxed: Fax Sent To: [facility], Attn: Dr. Morrison Document: Last OV and Pre-Operative Clearance Form F: [phone] On September 03, 2024 2:32 PM Misty Green September 03, 2024 2:32 PM documented in this encounterLake[facility]03-26-[facility] History of Present illness Narrative* Kevin Wood MD - 09/03/2024 1:20 PM EDT CC: Preoperative Risk Assessment and Evaluation S: 84 year old female with history of migraines, hypothyroidism, MDD, ARABELLA, COPD presents for Preoperative Risk Assessment and Evaluation. Surgery - Posterior Fusion L2-3-4-5, Revision Decompression L2-3-4-5, Pedicle Instrumentation, Local Bone Allograft Date - 09/16/2024 Surgeon - Dr. Cali Morrison No prior reactions to anesthesia. Revised Cardiac Risk Index: (>1 = high risk) - High risk surgery (intraperitoneal, intrathoracic or supra-inguinal vascular procedures): No - History of ischemic heart disease: No - History of CHF: No - History of CVA or TIA: No - Preop treatment with Insulin: No - Preop serum Cr > 2.0: No (may also use cardiac complication risk at [facility] NSQIP [email or web address]): (> 1% = high risk) 0-3 = low risk 4+ = high risk Functional Assessment: - Climb a flight of stairs or walk up a hill? 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 Yes (4.5) SOCIAL HISTORY: Tobacco: quit smoking 4 years ago. Alcohol: very rarely. CHIDI screen: - Snoring: Yes - Tiredness: No - Observed Apnea: No - Hypertension: No - BMI > 35: No - Age > 50: Yes - Neck circumference > 17 in: No - Male gender: No MEDICAL HISTORY PAST MEDICAL HISTORY Diagnosis Date Acquired hypothyroidism Acute gastritis Adjustment disorder with depressed mood Allergic rhinitis Alopecia Arthritis left knee replaced 3 times Atrophic vaginitis Basal cell carcinoma of nasolabial groove Chronic pain Chronic pelvic pain in female Constipation COPD (chronic obstructive pulmonary disease) (HCC) Depression Dysuria Epigastric pain Essential hypertension External ear conductive hearing loss Female stress incontinence Fibromyalgia Functional diarrhea Functional disorder of bladder Generalized abdominal pain H/O goiter s/p thyroidectomy Headache Hip pain History of fall History of kidney problems renal cell carcinoma Hyperkalemia Hyperlipidemia Impacted cerumen Incomplete emptying of bladder Incontinence of feces Increased frequency of urination Jaw pain Joint pain Leukocytosis Lumbar back pain Medication monitoring encounter Migraine with aura Mitral valve prolapse Muscle pain Muscle spasms of neck and/or neck Muscle weakness Must strain to pass urine Nausea and vomiting Neck pain Neoplasm of brain (HCC) Nocturia Obesity Osteoporosis Pain in lower limb Pain in wrist Painful urging to urinate Periumbilical pain Primary fibromyalgia syndrome Dr. Clay Primary malignant neoplasm of kidney (HCC) Refractory migraine with aura Restless legs Sleep deprivation Spasm of back muscles Temporomandibular joint disorder Tobacco dependence syndrome Tobacco use quit smoking in -15 Urinary incontinence, mixed Urinary tract infectious disease Viral gastroenteritis SURGICAL HISTORY PAST SURGICAL HISTORY Procedure Laterality Date ANKLE SURGERY HX Right 2012 ankle ARTHRP KNE CONDYLE&PLATU MEDIAL&LAT COMPARTMENTS Left X3 CHOLECYSTECTOMY COLONOSCOPY 08/05/2018 Dr. Guan (repeat in 10 years) HAND SURGERY HX Right 04/2022 KIDNEY SURGERY HX Left 2003 Removed- renal cell CA LEG SURGERY HX x6 PAST SURGICAL HISTORY OF 06/26/2015 Temporary Implant placed right hip for bladder control PAST SURGICAL HISTORY OF 07/02/2015 Permanent implant placed right hip for bladder control PAST SURGICAL HISTORY OF Left Hip fracture PAST SURGICAL HISTORY OF Left Broken Femur PAST SURGICAL HISTORY OF Right 07/26/2023 rt ring finger release THYROID SURGERY HX 2003 partial TOTAL ABDOMINAL HYSTERECT W/WO RMVL TUBE OVARY BSO MEDICATIONS AND ALLERGIES REVIEWED. LATEX ALLERGY: No ROS: GENERAL: No weight loss, malaise or fevers HEENT: Negative for frequent or significant headaches, No changes in hearing or vision, no nose bleeds or other nasal problems RESPIRATORY: Negative for cough, hemoptysis, wheezing, COPD, dyspnea or shortness of breath CARDIOVASCULAR: Negative for chest pain, leg swelling, hypertension, CHF or palpitations : No history of dysuria, frequency or incontinence SKIN: Negative for lesions, rash, and itching NEURO: No history of headaches, syncope, paralysis, seizures or tremors O: PHYSICAL EXAM: There were no vitals taken for this visit. There is no height or weight on file to calculate BMI. -CMP, CBC, TSH, Lipid Panel, UA reviewed. UA appears contaminated. General Appearance: Well appearing, alert, in no acute distress, well-hydrated, well nourished.. Skin: Skin color, texture, turgor normal, no suspicious rashes or lesions. Head: Normocephalic, no masses, lesions, tenderness or abnormalities. Eyes: Anicteric sclera. Pupils are equally round and reactive to light. Extraocular movements are intact. . Ears: External ears normal, canals clear. Nose/Sinuses: Nares normal, septum midline, mucosa normal, no drainage or sinus tenderness. Oropharynx: Dentures and Lips, mucosa, and tongue normal, teeth and gums normal, oropharynx normal. Lungs: Lungs clear to auscultation. No wheezing, rhonchi, rales.. Heart: RRR without murmur, gallop, or rubs. No ectopy. Abdomen: Normal abdominal exam, Abdomen soft, non-tender. Bowel sounds normal. No masses, organomegaly. Musculoskeletal: No joint swelling, deformity, or tenderness, Spine ROM limited 2/2 pain.. Neurologic: Gait normal. Reflexes normal and symmetric. Sensation grossly intact.. A/P: 84 year old female presenting for preoperative risk assessment and evaluation ASSESSMENT/PLAN: 1. Preop examination - ICD9: V72.84, ICD10: Z01.818 Patient is medically optimized to undergo her posterior fusion, revision decompression, pedicle instrumentation, local bone allograft. Labs and EKG reviewed. Patient has minor clinical predictors of increased perioperative cardiovascular risk. Patient is scheduled for a intermediate- risk procedure. Functional Capacity: >4 METs In careful consideration of the patient's history, physical, and relevant medical records I believethe patient is LOW RISK for cardiovascular complications from the proposed procedure. - Generally, high risk patients who are able to achieve >4 METS require no further cardiovascular testing. - I recommend no further cardiovascular testing. EKG reviewed 07/18/2024. Kevin Wood MD September 03, 2024 12:47 PM documented in this encounterLakehealth [facility]03-26-2025 NoteHNO ID: [id number] Author: KEVIN WOOD MD Service: ? Author Type: Physician Type: Progress Notes Filed: 09/03/2024 14:18 Note Text: CC: Preoperative Risk Assessment and Evaluation S: 84 year old female with history of migraines, hypothyroidism, MDD, ARABELLA, COPD presents for Preoperative Risk Assessment and Evaluation. Surgery - Posterior Fusion L2-3-4-5, Revision Decompression L2-3-4-5, Pedicle Instrumentation, Local Bone Allograft Date - 09/16/2024 Surgeon - Dr. Cali Morrison No prior reactions to anesthesia. Revised Cardiac Risk Index: (>1 = high risk) - High risk surgery (intraperitoneal, intrathoracic or supra-inguinal vascular procedures): No - History of ischemic heart disease: No - History of CHF: No - History of CVA or TIA: No - Preop treatment with Insulin: No - Preop serum Cr > 2.0: No (may also use cardiac complication risk at [facility] NSQIP [email or web address]): (> 1% = high risk) 0-3 = low risk 4+ = high risk Functional Assessment: - Climb a flight of stairs or walk up a hill? 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 Yes (4.5) SOCIAL HISTORY: Tobacco: quit smoking 4 years ago. Alcohol: very rarely. CHIDI screen: - Snoring: Yes - Tiredness: No - Observed Apnea: No - Hypertension: No - BMI > 35: No - Age > 50: Yes - Neck circumference > 17 in: No - Male gender: No MEDICAL HISTORY PAST MEDICAL HISTORY Diagnosis Date Acquired hypothyroidism Acute gastritis Adjustment disorder with depressed mood Allergic rhinitis Alopecia Arthritis left knee replaced 3 times Atrophic vaginitis Basal cell carcinoma of nasolabial groove Chronic pain Chronic pelvic pain in female Constipation COPD (chronic obstructive pulmonary disease) (HCC) Depression Dysuria Epigastric pain Essential hypertension External ear conductive hearing loss Female stress incontinence Fibromyalgia Functional diarrhea Functional disorder of bladder Generalized abdominal pain H/O goiter s/p thyroidectomy Headache Hip pain History of fall History of kidney problems renal cell carcinoma Hyperkalemia Hyperlipidemia Impacted cerumen Incomplete emptying of bladder Incontinence of feces Increased frequency of urination Jaw pain Joint pain Leukocytosis Lumbar back pain Medication monitoring encounter Migraine with aura Mitral valve prolapse Muscle pain Muscle spasms of neck and/or neck Muscle weakness Must strain to pass urine Nausea and vomiting Neck pain Neoplasm of brain (HCC) Nocturia Obesity Osteoporosis Pain in lower limb Pain in wrist Painful urging to urinate Periumbilical pain Primary fibromyalgia syndrome Dr. Clay Primary malignant neoplasm of kidney (HCC) Refractory migraine with aura Restless legs Sleep deprivation Spasm of back muscles Temporomandibular joint disorder Tobacco dependence syndrome Tobacco use quit smoking in -15 Urinary incontinence, mixed Urinary tract infectious disease Viral gastroenteritis SURGICAL HISTORY PAST SURGICAL HISTORY Procedure Laterality Date ANKLE SURGERY HX Right 2013 ankle ARTHRP KNE CONDYLEANDPLATU MEDIALANDLAT COMPARTMENTS Left X3 CHOLECYSTECTOMY COLONOSCOPY 08/05/2018 Dr. Guan (repeat in 10 years) HAND SURGERY HX Right 04/2022 KIDNEY SURGERY HX Left 2003 Removed- renal cell CA LEG SURGERY HX x6 PAST SURGICAL HISTORY OF 06/26/2015 Temporary Implant placed right hip for bladder control PAST SURGICAL HISTORY OF 07/02/2015 Permanent implant placed right hip for bladder control PAST SURGICAL HISTORY OF Left Hip fracture PAST SURGICAL HISTORY OF Left Broken Femur PAST SURGICAL HISTORY OF Right 07/26/2023 rt ring finger release THYROID SURGERY HX 2003 partial TOTAL ABDOMINAL HYSTERECT W/WO RMVL TUBE OVARY BSO MEDICATIONS AND ALLERGIES REVIEWED. LATEX ALLERGY: No ROS: GENERAL: No weight loss, malaise or fevers HEENT: Negative for frequent or significant headaches, No changes in hearing or vision, no nose bleeds or other nasal problems RESPIRATORY: Negative for cough, hemoptysis, wheezing, COPD, dyspnea or shortness of breath CARDIOVASCULAR: Negative for chest pain, leg swelling, hypertension, CHF or palpitations : No history of dysuria, frequency or incontinence SKIN: Negative for lesions, rash, and itching NEURO: No history of headaches, syncope, paralysis, seizures or tremors O: PHYSICAL EXAM: There were no vitals taken for this visit. There is no height or weight on file to calculate BMI. -CMP, CBC, TSH, Lipid Panel, UA reviewed. UA appears contaminated. General Appearance: Well appearing, alert, in no acute distress, well-hydrated, well nourished.. Skin: Skin color, texture, turgor normal, no suspicious rashes or lesions. Head: Normocephalic, no masses, lesions, tenderness or abnormalities. Eyes: Anicteric sclera. Pupils are equally (more content not included)...[facility]03-10-2025 Telephone encounter Note* Telephone Encounter - Leonardo Lyles APRN.CNP - 08/18/2024 4:22 PM EDT Can you please inquire if the patient is having any urinary symptoms such as dysuria, hematuria, frequency, urgency, flank pain, back pain or suprapubic pain? Their urine is suspicious for a UTI. Leonardo Lyles APRN.CNP [facility]03-10-2025 Miscellaneous Notes* Telephone Encounter - Leonardo Lyles APRN.CNP - 08/18/2024 4:22 PM EDT Can you please inquire if the patient is having any urinary symptoms such as dysuria, hematuria, frequency, urgency, flank pain, back pain or suprapubic pain? Their urine is suspicious for a UTI. Leonardo Lyles APRN.CNP documented in this encounterLakehealth [facility]03-06-2025 NoteHNO ID: [id number] Author: LEONARDO LYLES APRN.CNP Service: ? Author Type: Nurse Practitioner Type: Progress Notes Filed: 08/14/2024 16:42 Note Text: Visit Date: August 14, 2024 Patient Name: Ms.Marjorie Edith Tamez Date of : 1940 MRN/E #: [id number] Chief Complaint Patient presents with: Hospital F/U History of present illness Kathryn Tamez is a 84 year old female presents for hospital follow-up. States was diagnosed with C. difficile and was in the hospital for 6 days. I did review recent imaging and labs from [facility]. She states she is feeling back to normal. Appetite mostly back to baseline. Bowels are normal with no diarrhea. No issues with urination. No abdominal pain. She finished vancomycin as ordered. She does feel tired still but is slowly getting better. Shortness of breath at baseline. She does plan to follow-up for back surgery that had to cancel due to hospitalization. I have confirmed and edited as necessary, the PFSH and ROS obtained by others. PAIN EVALUATION No data found in the last 1 encounters. ALLERGIES No Known Allergies PAST MEDICAL HISTORY Diagnosis Date Acquired hypothyroidism Acute gastritis Adjustment disorder with depressed mood Allergic rhinitis Alopecia Arthritis left knee replaced 3 times Atrophic vaginitis Basal cell carcinoma of nasolabial groove Chronic pain Chronic pelvic pain in female Constipation COPD (chronic obstructive pulmonary disease) (HCC) Depression Dysuria Epigastric pain Essential hypertension External ear conductive hearing loss Female stress incontinence Fibromyalgia Functional diarrhea Functional disorder of bladder Generalized abdominal pain H/O goiter s/p thyroidectomy Headache Hip pain History of fall History of kidney problems renal cell carcinoma Hyperkalemia Hyperlipidemia Impacted cerumen Incomplete emptying of bladder Incontinence of feces Increased frequency of urination Jaw pain Joint pain Leukocytosis Lumbar back pain Medication monitoring encounter Migraine with aura Mitral valve prolapse Muscle pain Muscle spasms of neck and/or neck Muscle weakness Must strain to pass urine Nausea and vomiting Neck pain Neoplasm of brain (HCC) Nocturia Obesity Osteoporosis Pain in lower limb Pain in wrist Painful urging to urinate Periumbilical pain Primary fibromyalgia syndrome Dr. Clay Primary malignant neoplasm of kidney (HCC) Refractory migraine with aura Restless legs Sleep deprivation Spasm of back muscles Temporomandibular joint disorder Tobacco dependence syndrome Tobacco use quit smoking in 04-25 Urinary incontinence, mixed Urinary tract infectious disease Viral gastroenteritis PAST SURGICAL HISTORY Procedure Laterality Date ANKLE SURGERY HX Right 2012 ankle ARTHRP KNE CONDYLEANDPLATU MEDIALANDLAT COMPARTMENTS Left X3 CHOLECYSTECTOMY COLONOSCOPY 08/05/2018 Dr. Guan (repeat in 10 years) HAND SURGERY HX Right 04/2022 KIDNEY SURGERY HX Left 2003 Removed- renal cell CA LEG SURGERY HX x6 PAST SURGICAL HISTORY OF 06/26/2015 Temporary Implant placed right hip for bladder control PAST SURGICAL HISTORY OF 07/02/2015 Permanent implant placed right hip for bladder control PAST SURGICAL HISTORY OF Left Hip fracture PAST SURGICAL HISTORY OF Left Broken Femur PAST SURGICAL HISTORY OF Right 07/26/2023 rt ring finger release THYROID SURGERY HX 2004 partial TOTAL ABDOMINAL HYSTERECT W/WO RMVL TUBE OVARY BSO Social History Tobacco Use Smoking status: Former Current packs/day: 0.00 Types: Cigarettes Start date: 08/18/1958 Quit date: 08/18/2018 Years since quittin.9 Smokeless tobacco: Never Tobacco comments: One pack of cigarettes every 3 weeks Vaping Use Vaping status: Never Used Substance Use Topics Alcohol use: No Comment: Rarely Drug use: No FAMILY HISTORY Problem Relation Age of Onset Cancer Father Hypertension Sister Stroke Sister Coronary Artery Disease Sister Diabetes Sister Leukemia Sister Colon Cancer No Family History Review of Systems Constitutional: Negative for chills and fever. Respiratory: Negative for shortness of breath. Cardiovascular: Negative for chest pain. Neurological: Negative for dizziness and headaches. BP 117/62 Pulse 85 Temp (Src) 97.5 (Temporal) Wt 119 lb (54.0kg) SpO2 96% Last 3 Encounter BP Readings: Date: BP: 08/14/2024 117/62 07/10/2024 118/70 04/01/2024 120/68 Last 3 Encounter Wt Readings: Date: Wt: 08/14/2024 119 lb (54 kg) 07/10/2024 120 lb 12.8 oz (54.8 kg) 04/01/2024 109 lb (49.4 kg) Physical Exam Vitals and nursing note reviewed. Constitutional: General: She is not in acute distress. Appearance: Normal appearance. She is not diaphoretic. HENT: Head: Normocephalic. Cardiovascular: Rate and Rhythm: Normal rate and regular rhythm. Heart sounds: (more content not included)...[facility] 08-14-2024 History of Present illness Narrative* Leonardo Lyles APRN.[employer] - 08/14/2024 2:31 PM EST Visit Date: August 14, 2024 Patient Name: Ms.Marjorie Edith Tamez Date of : 1940 MRN/E #: [id number] Chief Complaint Patient presents with: Hospital F/U History of present illness Kathryn Tamez is a 84 year old female presents for hospital follow-up. States was diagnosed with C. difficile and was in the hospital for 6 days. I did review recent imaging and labs from [facility]. She states she is feeling back to normal. Appetite mostly back to baseline. Bowels are normal with no diarrhea. No issues with urination. No abdominal pain. She finished vancomycin as ordered. She does feel tired still but is slowly getting better. Shortness of breath at baseline. She does plan to follow-up for back surgery that had to cancel due to hospitalization. I have confirmed and edited as necessary, the PFSH and ROS obtained by others. PAIN EVALUATION No data found in the last 1 encounters. ALLERGIES No Known Allergies PAST MEDICAL HISTORY Diagnosis Date Acquired hypothyroidism Acute gastritis Adjustment disorder with depressed mood Allergic rhinitis Alopecia Arthritis left knee replaced 3 times Atrophic vaginitis Basal cell carcinoma of nasolabial groove Chronic pain Chronic pelvic pain in female Constipation COPD (chronic obstructive pulmonary disease) (HCC) Depression Dysuria Epigastric pain Essential hypertension External ear conductive hearing loss Female stress incontinence Fibromyalgia Functional diarrhea Functional disorder of bladder Generalized abdominal pain H/O goiter s/p thyroidectomy Headache Hip pain History of fall History of kidney problems renal cell carcinoma Hyperkalemia Hyperlipidemia Impacted cerumen Incomplete emptying of bladder Incontinence of feces Increased frequency of urination Jaw pain Joint pain Leukocytosis Lumbar back pain Medication monitoring encounter Migraine with aura Mitral valve prolapse Muscle pain Muscle spasms of neck and/or neck Muscle weakness Must strain to pass urine Nausea and vomiting Neck pain Neoplasm of brain (HCC) Nocturia Obesity Osteoporosis Pain in lower limb Pain in wrist Painful urging to urinate Periumbilical pain Primary fibromyalgia syndrome Dr. Clay Primary malignant neoplasm of kidney (HCC) Refractory migraine with aura Restless legs Sleep deprivation Spasm of back muscles Temporomandibular joint disorder Tobacco dependence syndrome Tobacco use quit smoking in - Urinary incontinence, mixed Urinary tract infectious disease Viral gastroenteritis PAST SURGICAL HISTORY Procedure Laterality Date ANKLE SURGERY HX Right 2012 ankle ARTHRP KNE CONDYLE&PLATU MEDIAL&LAT COMPARTMENTS Left X3 CHOLECYSTECTOMY COLONOSCOPY 08/05/2018 Dr. Guan (repeat in 10 years) HAND SURGERY HX Right 04/2022 KIDNEY SURGERY HX Left 2003 Removed- renal cell CA LEG SURGERY HX x6 PAST SURGICAL HISTORY OF 06/26/2015 Temporary Implant placed right hip for bladder control PAST SURGICAL HISTORY OF 07/02/2015 Permanent implant placed right hip for bladder control PAST SURGICAL HISTORY OF Left Hip fracture PAST SURGICAL HISTORY OF Left Broken Femur PAST SURGICAL HISTORY OF Right 07/26/2023 rt ring finger release THYROID SURGERY HX 2004 partial TOTAL ABDOMINAL HYSTERECT W/WO RMVL TUBE OVARY BSO Social History Tobacco Use Smoking status: Former Current packs/day: 0.00 Types: Cigarettes Start date: 08/18/1958 Quit date: 08/18/2018 Years since quittin.9 Smokeless tobacco: Never Tobacco comments: One pack of cigarettes every 3 weeks Vaping Use Vaping status: Never Used Substance Use Topics Alcohol use: No Comment: Rarely Drug use: No FAMILY HISTORY Problem Relation Age of Onset Cancer Father Hypertension Sister Stroke Sister Coronary Artery Disease Sister Diabetes Sister Leukemia Sister Colon Cancer No Family History Review of Systems Constitutional: Negative for chills and fever. Respiratory: Negative for shortness of breath. Cardiovascular: Negative for chest pain. Neurological: Negative for dizziness and headaches. BP 117/62 Pulse 85 Temp (Src) 97.5 (Temporal) Wt 119 lb (54.0kg) SpO2 96% Last 3 Encounter BP Readings: Date: BP: 08/14/2024 117/62 07/10/2024 118/70 04/01/2024 120/68 Last 3 Encounter Wt Readings: Date: Wt: 08/14/2024 119 lb (54 kg) 07/10/2024 120 lb 12.8 oz (54.8 kg) 04/01/2024 109 lb (49.4 kg) Physical Exam Vitals and nursing note reviewed. Constitutional: General: She is not in acute distress. Appearance: Normal appearance. She is not diaphoretic. HENT: Head: Normocephalic. Cardiovascular: Rate and Rhythm: Normal rate and regular rhythm. Heart sounds: Normal heart sounds. Pulmonary: Effort: Pulmonary effort is normal. Breath sounds: Normal breath sounds. Abdominal: General: Abdomen is flat. Bowel sounds are normal. Tenderness: There is no abdominal tenderness. Skin: General: Skin is warm and dry. Neurological: Mental Status: She is alert and oriented to person, place, and time. Gait: Gait is intact. Psychiatric: Attention and Perception: Attention normal. Mood and Affect: Affect normal. Speech: Speech normal. ASSESSMENT/PLAN: 1. Encounter for examination following treatment at hospital - ICD9: V67.9, ICD10: Z09 (primary diagnosis) - Unclear patient may have contracted C. difficile, discussed good hand hygiene -Follow-up right away with recurrent symptoms -Patient doing well post discharge -Discussed benefit of probiotics -Discussed importance of staying hydrated, getting plenty of rest - URINALYSIS (WITH MICROSCOPIC) WITH CULTURE IF INDICATED 2. Anemia, unspecified type - ICD9: 285.9, ICD10: D64.9 -Trend labs since discharge from hospital - COMPLETE BLOOD COUNT 3. Hypokalemia - ICD9: 276.8, ICD10: E87.6 -Trend labs since discharge from hospital - COMPREHENSIVE METABOLIC PANEL 4. Adjustment disorder with mixed anxiety and depressed mood - ICD9: 309.28, ICD10: F43.23 - HYDROXYZINE HCL 10 MG TABLET - SERTRALINE 100 MG TABLET 5. Postsurgical hypothyroidism - ICD9: 244.0, ICD10: E89.0 - LEVOTHYROXINE 88 MCG TABLET 6. Generalized abdominal pain - ICD9: 789.07, ICD10: R10.84 -Call to schedule with GI 7. Hypothyroidism, acquired - ICD9: 244.9, ICD10: E03.9 -Await labs - THYROID STIMULATING HORMONE 8. Hyperlipidemia, mixed - ICD9: 272.2, ICD10: E78.2 - Control undetermined, due for labs - Continue current medications - Counseled on healthy diet and regular exercise - LIPID PANEL BASIC Leonardo Neves. JESSICA Lyles.MIKAEL Return in about 6 months (around 02/14/2025) for 40 Min Wellness Exam. Discussed above plan with patient. Pt agreeable with above plan. Please note: This note has been produced using speech recognition software and may contain errors related to that system including grammar, punctuation, spelling, gender and words and phrases that may be inappropriate. documented in this encounterLakehealth [facility] Center02-13-2025 Plan of care note* Care Plan - Ayse Junior LPN - 07/24/2024 10:23 AM EST Problem: Knowledge Deficit Goal: Patient/family/caregiver demonstrates understanding of disease process, treatment plan, medications, and discharge instructions Outcome: Adequate for Discharge Problem: Potential for Compromised Skin Integrity Goal: Skin Integrity is Maintained or Improved Outcome: Adequate for Discharge Goal: Nutritional status is improving Outcome: Adequate for Discharge Problem: Urinary Incontinence Goal: Perineal skin integrity is maintained or improved Outcome: Adequate for Discharge Problem: Potential for Falls Goal: I will remain free of falls Outcome: Adequate for Discharge Problem: Discharge Barriers Goal: My discharge needs are met Outcome: Adequate for Discharge Problem: Problem Interventions Goal: Assess Nutritional Intake Outcome: Adequate for Discharge [id number] Miscellaneous Notes* Care Plan - Ayse Junior LPN - 07/24/2024 10:23 AM EST Problem: Knowledge Deficit Goal: Patient/family/caregiver demonstrates understanding of disease process, treatment plan, medications, and discharge instructions Outcome: Adequate for Discharge Problem: Potential for Compromised Skin Integrity Goal: Skin Integrity is Maintained or Improved Outcome: Adequate for Discharge Goal: Nutritional status is improving Outcome: Adequate for Discharge Problem: Urinary Incontinence Goal: Perineal skin integrity is maintained or improved Outcome: Adequate for Discharge Problem: Potential for Falls Goal: I will remain free of falls Outcome: Adequate for Discharge Problem: Discharge Barriers Goal: My discharge needs are met Outcome: Adequate for Discharge Problem: Problem Interventions Goal: Assess Nutritional Intake Outcome: Adequate for Discharge * Care Plan - Ayse Junior LPN - 07/23/2024 5:20 PM EST Problem: Potential for Compromised Skin Integrity Goal: Nutritional status is improving Outcome: Progressing * Care Plan - Ayse Junior LPN - 07/23/2024 10:53 AM EST Problem: Knowledge Deficit Goal: Patient/family/caregiver demonstrates understanding of disease process, treatment plan, medications, and discharge instructions Outcome: Progressing Problem: Urinary Incontinence Goal: Perineal skin integrity is maintained or improved Outcome: Progressing * Care Plan - Kavitha Lovett RN - 07/22/2024 6:36 PM EST Problem: Knowledge Deficit Goal: Patient/family/caregiver demonstrates understanding of disease process, treatment plan, medications, and discharge instructions 07/22/20241835 by Kavitha Lovett RN Outcome: Progressing 07/22/20241124 by Kavitha Lovett RN Outcome: Progressing Problem: Potential for Compromised Skin Integrity Goal: Skin Integrity is Maintained or Improved 07/22/20241835 by Kavitha Lovett RN Outcome: Progressing 07/22/20241124 by Kavitha Lovett RN Outcome: Progressing Goal: Nutritional status is improving 07/22/20241835 by Kavitha Lovett RN Outcome: Progressing 07/22/20241124 by Kavitha Lovett RN Outcome: Progressing Problem: Urinary Incontinence Goal: Perineal skin integrity is maintained or improved 07/22/20241835 by Kavitha Lovett RN Outcome: Progressing 07/22/2024 1125 by Kavitha Lovett RN Outcome: Progressing Problem: Potential for Falls Goal: I will remain free of falls 07/22/2024 1836 by Kavitha Lovett RN Outcome: Progressing 07/22/2024 1125 by Kavitha Lovett RN Outcome: Progressing Problem: Discharge Barriers Goal: My discharge needs are met 07/22/2024 1836 by Kavitha Lovett RN Outcome: Progressing 07/22/2024 112 by Kavitha Lovett RN Outcome: Progressing Problem: Problem Interventions Goal: Assess Nutritional Intake 07/22/20241835 by Kavitha Lovett RN Outcome: Progressing 07/22/20241124 by Kavitha Lovett RN Outcome: Progressing * Care Plan - Kavitha Lovett RN - 07/22/2024 11:25 AM EST Problem: Knowledge Deficit Goal: Patient/family/caregiver demonstrates understanding of disease process, treatment plan, medications, and discharge instructions Outcome: Progressing Problem: Potential for Compromised Skin Integrity Goal: Skin Integrity is Maintained or Improved Outcome: Progressing Goal: Nutritional status is improving Outcome: Progressing Problem: Urinary Incontinence Goal: Perineal skin integrity is maintained or improved Outcome: Progressing Problem: Potential for Falls Goal: I will remain free of falls Outcome: Progressing Problem: Discharge Barriers Goal: My discharge needs are met Outcome: Progressing Problem: Problem Interventions Goal: Assess Nutritional Intake Outcome: Progressing * Care Plan - Salena Miller RN - 07/22/2024 4:19 AM EST Problem: Knowledge Deficit Goal: Patient/family/caregiver demonstrates understanding of disease process, treatment plan, medications, and discharge instructions Outcome: Progressing Problem: Potential for Compromised Skin Integrity Goal: Skin Integrity is Maintained or Improved Outcome: Progressing Goal: Nutritional status is improving Outcome: Progressing * Care Coordination - Darcy Zarate RN - 07/21/2024 12:03 PM EST Care Managment Initial Assessment Date: 07/21/2024 Patient Name: Kathryn Tamez : 1940 Patient Information Source of Information: Patient Cognition/Language: WFL - Within Functional Limits Permission given to speak with patient sales development representative/caregiver as indicated: Yes Confirmation of Payer with patient/family: Yes Payer Name: [employer] Medicare : Confirmation of Primary Care Physician: Confirmed PCP Name: Dr. Leonardo Lyles Seen in last 2 years?: Yes Primary Caregiver: Self If assistance needed, confirmed caregiver ready, willing and able to care for patient at discharge: Confirmed with: Living Arrangements Current Residence: House Number of Floors 2 Number of Entry Steps: Bed/Bath Levels: Both second floor Facility: Facility Name: Plan to Return: Lives with: Extended family members Support Systems: Family members, Children Activities of Daily Living Ambulation: Independent Bathing/Dressing: Independent Elimination/Continence/Toileting: Independent Feeding: Independent Who Assists with Activities of Daily Living: Instrumental Activities of Daily Living Prescription Coverage: Yes Pharmacy Used: [facility] Medication Management: Independent Transportation/Shopping: Independent Transportation Mode: Car Needs Assistance with Transportation at Discharge: No Meal Preparation: Independent Laundry/Cleaning: Independent Finances/Bill Paying: Independent Communication: Independent Types of Care Services/Equipment Utilized Care Services: Dialysis Type: NA Durable Medical Equipment: Cane, Walker, Bedside Commode, Shower Seat Patient's Goal/Discharge Plan Patient expects to be discharged to: home with cousin Discharge Planning Actions: No needs identified, Continue to follow Patient's Choice Rights and [employer] and Collaborative Relationships Disclosed as Indicated for Post-Acute Care: NA Interdisciplinary Team Engagement: Social Work Referral for: Additional Information: Met with patient, states cousin is living with her and is available 01/01. Admitted with back pain and inability to walk. ?PNA, on IV abx, ID following. +cdiff. Was to have back surgery per notes on 07/15 but needed to be cancelled due to insurance issues. OT rec home OT vs SNF depending on progress. Patient states only going home, does not even want HHC. Electronically signed by Darcy Zarate RN on07/21/2024 at 12:05 PM Darcy Zarate RN documented in this [facility]02-13-2025 Hospital Discharge instructions* Discharge Instr - JASIEL* Ayse Junior LPN - 07/24/2024 10:06 AM EST * Additional Instructions* Sheldon Berumen DO - 07/23/2024 10:36 AM EST You were found to have C Diff. Please inform your provider of your history of C Diff for all futureprescriptions of antibiotics. Follow up with PCP within 1 week to review all medications and findings of this admission. Thank you for letting me take part of your care. Wish you a speedy recovery. Call your PCP or go to ED if symptoms return. Thanks, Dr. Sheldon Berumen [place] [facility] [place] Answering Service documented in this [facility]02-13-2025 [facility] 07-24-2024 Hospital course Narrative* Sheldon Berumen DO - 07/24/2024 8:55 AM EST Hospitalist Discharge Summary - [facility] - [facility] [place] Kathryn Tamez : 1940 Admit date: 07/18/2024 Discharge date: 07/24/2024 Admitting Physician: Sheldon Berumen DO Primary Care Physician: Leonardo Lyles Recommended Follow-up: No follow-up provider specified. Disposition: Patient discharged in stable condition. Greater than 31 minutes spent discharging the patient and coming up with patient discharge plan. Follow up with Leonardo Lyles in 1-2 weeks as appropriate. Hospital Course: Kathryn is a 84 y.o. female with past medical history of hypothyroidism, GERD, chronic back pain, depression, scheduled for lumbar spinal surgery on 07/15 but was canceled because of insurance approval. Around the same time, she has stopped taking all her pain medication. Daughter at bedside providingadditional history stated that, she has progressively gotten weak since Sunday, to the point whereshe is unable to walk. This morning she had fever, chills. Patient reports abdominal pain, chronic diarrhea, worsening back pain, urine incontinence, denies any cough. Admitted for further evaluation and management. Evaluated by ID. Found to have C Diff and started on Oral Vanc x 10 days. DC home today Discharge Diagnoses: Acute, acute on chronic, unstable/uncontrolled chronic problems/diagnoses: Sepsis POA 07/13 C Diff C dif colitis Leukocytosis Hypokalemia Stable chronic problems affecting care, new non-acute diagnoses: Spinal stenosis Hypothyroidism Neuropathy Adult diet Regular Vitals: BP 141/76 (BP Location: Right arm, Patient Position: Sitting) Pulse 62 Temp 36.3 C (97.4 F) (Temporal) Resp 18 Ht 5' (1.524 m) Wt 123 lb 10.9 oz (56.1 kg) LMP (LMP Unknown) AyA870% BMI 24.15 kg/m Pulse Ox: SpO2 Av % Min: 94 % Max: 94 % Supplemental O2: GENERAL: in bed without acute distress CARDIOVASCULAR: RRR no rubs RESPIRATORY: good breath sounds throughout ABDOMEN: non-tender, no acute abd pain EXTREMITIES: no open wounds Recent Labs 07/22/245107/23/24 0043 07/24/24 0533 WBC 10.1 9.9 9.8 HGB 10.2* 10.6* 10.9* PLT 191 195 193 Recent Labs 07/22/245107/23/24 0043 07/24/24 0533 NA 140 139 142 K 3.2* 3.1* 3.3* CL 112* 112* 113* CO2 21* 22* 23 BUN 6* 4* 5* CREATININE 0.73 0.67 0.68 GLUCOSE 133* 100 98 No results for input(s): AST, ALT, BILITOT, ALKPHOS in the last 72 hours. No lab exists for component: ALB No results found for: TRIG, HDL, LDLCALC, CHOL No results found for: PHART, PO2ART, OAF0RSW No results for input(s): INR in the last 72 hours. No results for input(s): DDIMER in the last 72 hours. No results found for: HGBA1C No results found for: TSH Urine Culture: Results for orders placed or performed in visit on 06/30/24 Urine culture Collection Time: 06/30/24 2:34 PM Specimen: Urine, Clean Catch Result Value Ref Range Urine Culture >100,000 CFU/mL Escherichia coli (A) Susceptibility Escherichia coli - BROTH MICRODILUTION Amoxicillin / Clavulanate 8 Susceptible ug/ml Ampicillin >=32 Resistant ug/ml Ampicillin / Sulbactam 8 Susceptible ug/ml Aztreonam <=1 Susceptible ug/ml Cefazolin <=4 Susceptible ug/ml Cefepime <=1 Susceptible ug/ml Ceftriaxone <=1 Susceptible ug/ml Ciprofloxacin 0.5 Susceptible ug/ml Gentamicin <=1 Susceptible ug/ml Meropenem <=0.25 Susceptible ug/ml Nitrofurantoin <=16 Susceptible ug/ml Piperacillin / Tazobactam <=4 Susceptible ug/ml Trimethoprim / Sulfamethoxazole >=320 Resistant ug/ml Imaging: ECG 12 lead Result Date: 07/18/2024 EKG shows NSR, normal axis, normal OK QRS and QTC intervals, no STEMI, no SVT, no LVH. Low voltage.Previous EKG unchanged. Electronically Signed On 07-18-2024 20:17:03 EST by Marcell Ballard XR chest 2 views Result Date: 07/18/2024 Patient Name: KATHRYN TAMEZ : 1940 Exam Date/Time: 07/18/2024 18:42 Procedure: XR CHEST 2 VIEWS Ordering Provider: KITCHEN DEEPTHI Reason For Exam: Pneumonia EXAM: XR Chest, 2 Views CLINICAL INDICATION: Pneumonia . Cough TECHNIQUE: Frontal and lateral views of the chest. COMPARISON: 05/07/2021 FINDINGS: Limitations: EKG leadsobscure small portions of the chest. There is also rotation to the left. Lungs and pleural spaces: Hyperinflation of the lungs is noted along with accentuated interstitial opacities. Apical pleural thickening is noted on the right. There is no consolidation or atelectasis. Heart: Unremarkable. No ca rdiomegaly. Mediastinum: Normal mediastinal contour. Bones/joints: Degenerative change of the thoracic spine. No acute fracture. Chronic obstructive pulmonary disease without acute abnormality Report Dictated on Electronically Signed By: Giovanni Irby MD Electronically Signed Date/Time: 07/18/2024 6:[address] thoracic spine wo IV contrast Result Date: 07/18/2024 Patient Name: KATHRYN TAMEZ : 1940 Exam Date/Time: 07/18/2024 15:15 Procedure: CT THORACIC SPINE WO IV CONTRAST Ordering Provider: BALLARD DOUGLAS Reason For Exam: midline spine pain. fracture? CT THORACIC SPINE : CLINICAL INDICATION: midline spine pain. fracture? TECHNIQUE: Transaxial sequence through the thoracic spine. Multiplanar reconstruction imaging was performed. Dose reduction was employed with automated exposure control. COMPARISON: None FINDINGS: Thoracic vertebrae and joints: No fracture, subluxation or other malalignment. Facet joints are unremarkable. No bone lesion identified. Intervertebral disc spaces and spinal canal: No intervertebral disc space narrowing identified. Mild thoracic spondylosis is noted. Soft tissues: Groundglass densities are noted in bilateral lungs.. Mild thoracic spondylosis. Diffuse osteopenia. Groundglass densities in the bilateral lungs may represent atypical infection. Report Dictated on Electronically Signed By: Alonso Byrne MD Electronically Signed Date/Time: 07/18/2024 3:[address] lumbar spine wo IV contrast Result Date: 07/18/2024 Patient Name: KATHRYN TAMEZ : 1940 Exam Date/Time: 07/18/2024 15:15 Procedure: CT LUMBAR SPINE WO IV CONTRAST Ordering Provider: BALLARD DOUGLAS Reason For Exam: low back pain, missed her operation for it. can't walk now EXAMINATION: CT LUMBAR SPINE WO IV CONTRAST CLINICAL HISTORY: low back pain, missed her operation for it. Can't walk now COMPARISON: None TECHNIQUE: Thin axial images were obtained through the lumbar region without intravenous contrast. 2D sagittal and coronal reconstructions were obtained from the axial data. Dose reduction was employed with automated exposure control. FINDINGS: Alignment: There is grade 1 anterolisthesis of L3 on L4 There is scoliotic deformity lumbar spine concave to the right. Vertebrae: No evidence of an acute fracture. No aggressive osseous lesions. There is diffuse osteopenia.Laminectomy defect is noted involving the L4 and L5 levels. Canal and foramina: Mild multilevel spondylosis, without critical spinal canal or neural foraminal stenosis. Visible sacrum and pelvis: Normal. The presacral soft tissues are normal in appearance. Soft tissues: Sacral stimulator is noted extending through the right S3-S4 sacral foramina. The left kidney is surgically absent. Mild lumbar spondylosis. No acute osseous abnormalities in the thoracic or lumbar spine. Report Dictated on Electronically Signed By: Alonso Byrne MD ElectronicallySigned Date/Time: 07/18/2024 3:[address] cervical spine wo IV contrast Result Date: 07/18/2024 [facility] : 1940 [id number] Exam Date/Time: 07/18/2024 15:15 Procedure: CT CERVICAL SPINE WO IV CONTRAST Ordering Provider: BALLARD DOUGLAS Reason For Exam: fall, fails pakistani EXAMINATION: CT CERVICAL SPINE WO IV CONTRAST CLINICAL HISTORY: fall, fails pakistani. Back pain and weakness COMPARISON: None TECHNIQUE: Thin is otropic axial images were obtained from the skull base to the upper thoracic spine without intravenous contrast. Dose reduction was employed with automated exposure control. FINDINGS: Craniocervical Junction: Normal alignment. Alignment: Anatomic Vertebrae: No acute fracture or traumatic malalignment. No aggressive osseous lesions. Soft Tissues: No acute abnormality. Canal and Foramina: Mild cervical degenerative changes without significant spinal canal stenosis. Mild cervical spondylosis. No fracture or traumatic malalignment. Report Dictated on Electronically Signed By: Alonso Byrne MD Electronically Signed Date/Time: 07/18/2024 3:[address] head wo IV contrast Result Date: 07/18/2024 Patient Name: KATHRYN TAMEZ : 1940 [facility]#: [id number] Exam Date/Time: 07/18/2024 15:15 Procedure: CT HEAD WO IV CONTRAST Ordering Provider: BALLARD DOUGLAS Reason For Exam: fall, headstrike. can't walk EXAMINATION: CT HEAD WO IV CONTRAST HISTORY: fall, headstrike. can't walk - - - - - [id number] - - - - hit head. Weakness TECHNIQUE: CT head without contrast. Dose reduction was employed with automated exposure control. COMPARISON: None. RESULT: Acute change: No evidence of an acute intracranial process. Hemorrhage: No evidence of acute intracranial hemorrhage. Mass Lesion / Mass Effect: No evidence of an intracranial mass, extra-axial fluid collection, or significant localized mass effect. Chronic change: Scattered patchy foci of low attenuation are present within supratentorial white matter which is a nonspecific finding but likely represents mild microvascular ischemia. Parenchyma: There is no significant volume loss. The brain parenchyma is otherwise within normal limits for age. Ventricles: Normal caliber and morphology. Other: Atherosclerotic calcifications of the carotid siphons. Sports Commentator (topogram) images: No additional findings. No CT evidence of an acute intracranial abnormality. Chronic microvascular ischemia Report Dictatedon Electronically Signed By: Alonso Byrne MD Electronically Signed Date/Time: 07/18/2024 3:30 PM EST Consults: IP CONSULT TO INFECTIOUS DISEASES IP WOUND CARE NURSE CONSULT TO EVAL IP CONSULT TO DIETITIAN Discharge Medications: Medication List START taking these medications vancomycin 125 MG capsule Commonly known as: Vancocin Take 1 capsule (125 mg) by mouth 4 times daily for 4 days. CONTINUE taking these medications famotidine 20 MG tablet Commonly known as: Pepcid gabapentin 300 MG capsule Commonly known as: Neurontin HYDROcodone-acetaminophen 10-300 MG tablet Commonly known as: Vicodin hydrOXYzine HCl 10 MG tablet Commonly known as: Atarax sertraline 100 MG tablet Commonly known as: Zoloft SUMAtriptan 50 MG tablet Commonly known as: Imitrex Synthroid 88 MCG tablet Generic drug: levothyroxine Tylenol Extra Strength 500 MG tablet Generic drug: acetaminophen STOP taking these medications buprenorphine 5 MCG/HR Commonly known as: Butrans Where to Get Your Medications These medications were sent to [id number] - [place], [place] - [address] [place] [address] vancomycin 125 MG capsule Signed: Sheldon Berumen DO 07/24/2024, 1:51 PM documented in this [facility]02-12-2025 NoteProblem: Potential for Compromised Skin Integrity Goal: Nutritional status is improving Outcome: [facility]02-12-2025 Plan of care note* Care Plan - Ayse Junior LPN - 07/23/2024 5:20 PM EST Problem: Potential for Compromised Skin Integrity Goal: Nutritional status is improving Outcome: Progressing [id number] History of Present illness Narrative* Meron Ward, PT - 07/23/2024 2:48 PM EST Images from the original note were not included. PHYSICAL THERAPY [facility] Treatment Note Name/MRN: Kathryn Tamez ([id number]) Date of : 1940 Age: 84 y.o. Room[facility]Bed: [facility] A Discharge Recommendation: Alf Facility (could progress to home pending progress) Equipment Needed: (Likely FWW pending progress) Prior Level of Function Prior Level of ADL Function: Independent Prior Level of Mobility: Independent; Device: None Prior Level of Transfers: Independent Assessment Pt demo improved mobility, still limited by back pain and isolation status, was not able to addressstairs. Pt reports she is going home tomorrow. She demo bed mobility Mod I, transfer to FWW SBA andambulation with FWW and SBA. Limited by pain, if discahrge home would rec C PT. Pt reports owns awalker Subjective Per RN pt okay for therapy, is pleasant and agree to PT Pain: RN managing pain. 0-10 pain scale: 7/10 Location: back Medical Precautions: Enhanced Contact Proper PPE donned/doffed in accordance with facility standards. Fall Risk: Reese Fall Risk Score: 75 (Medium Risk) Reese Fall Risk Score: 75 (High Risk) Precautions/Restrictions: N/A Overall Cognitive Status: WFL Overall Orientation Status: Oriented x4 Family/Caregiver Present: none Objective Bed Mobility Supine to sit: Modified Independent, pt denies dizziness, demo bed mobility with HOB slightly elevated, Mod I with no concerns Transfers/Mobility Sit to stand: SBA, Pt transfer to FWW SBA. She require slight increased time 2/2 pain, no LOB, sloweccentric control to sit Stand to sit: SBA Device(s) used: Front wheeled walker Ambulation Ambulation 1 Assistive device(s) used: Front wheeled walker Assist level: SBA, pt ambulate with FWW and SBA, demo short reciprocal pattern with standing rest breaks 2/2 pain. She demo good walker management, cues for upright trunk/head. Educated on rationale for FWW use at home, she agrees. She denies concerns for home mobility Distance (ft): ~80 Quality of gait: No LOB, reciprocal stepping, slow renetta Unable to address stairs today 2/2 pain and isolation status Plan Continue acute PT per plan of care. Safety/Education Safety Safety Devices in place: All fall risk precautions in place, call light within reach, left in bed, gait belt, patient at risk for falls, and nurse notified Restraints: No Education Education Given To: patient Education Provided: PT Role, PT Goals, Gait Training, Plan of Care, Precautions, Transfer Training,Energy Conservation, Equipment, Fall Prevention Education, Discharge Recommendations, Benefits of Increasing Activity, and Breathing Techniques Education Method: Verbal Barriers to Learning: None Education Outcome: Verbalized Understanding and Demonstrated Understanding Outcome Measures AM-PAC AM-PAC Inpatient Mobility Raw Score (No Stairs) : 17 -[facility] Goals Patient Stated Goal: to go home Encounter Problems Encounter Problems (Active) Mobility Patient will ambulate 200 feet with modified independence and least restrictive device in order to improve safety and independence with mobility. (Progressing) Start: 07/19/24 Expected End: 08/02/24 Patient will ascend and descend 8 stairs with least restrictive device and min assist in order to safely negotiate home. (Not Addressed) Start: 07/19/24 Expected End: 08/02/24 Transfers Patient will perform bed mobility with modified independence in order to improve independence and prepare for out of bed mobility. (Completed) Start: 07/19/24 Expected End: 08/02/24 Resolved: 07/23/24 Patient will complete sit to stand transfer with modified independence to LRD in order to improve safety and prepare for out of bed mobility. (Progressing) Start: 07/19/24 Expected End: 08/02/24 Therapy Time Individual Co-treatment Time In 1407 Time Out 1420 Minutes 13 Timed Code Treatment Minutes: 10 Minutes (gait x1) Meron Ward PT * Kiara Lund MD - 07/23/2024 12:20 PM EST Images from the original note were not included. [facility] - Infectious Diseases Attending Progress Note Subjective: Patient is seen for follow up of c.diff Afebrile, no leukocytosis, diarrhea episodes have reduced in frequency Objective: Vitals: Patient Vitals for the past 24 hrs: BP Temp Temp src Pulse Resp SpO2 Weight 07/23/24 0728 128/61 36.2 C (97.2 F) Temporal 59 20 93 % -- 07/23/244 -- -- -- -- -- -- 123 lb 10.9 oz (56.1 kg) 07/22/24 1935 132/67 36.5 C (97.7 F) Temporal 67 15 95 % -- Physical Exam General Appearance: Alert, NAD HEENT: wnl Neck: Supple Lungs: Clear to auscultation b/l on room air Cardiovascular: RRR Gastrointestinal: Soft NT, ND, BS+, no palpable masses, hernia : no CVAT. No nation Neurologic: wnl Skin: No rashes Psychiatry: alert and oriented Extremities: No edema, No joint inflammation Lines: sites clean Labs: Recent Labs 07/21/24 0533 07/22/24 0052 07/23/24 0043 NA 141 140 139 K 3.3* 3.2* 3.1* CL 110* 112* 112* CO2 23 21* 22* BUN 8* 6* 4* CREATININE 0.79 0.73 0.67 GLUCOSE 89 133* 100 CALCIUM 7.6* 7.5* 7.6* PROT 5.9* -- -- BILITOT 0.2 -- -- ALKPHOS 57 -- -- AST 15 -- -- ALT 17 -- -- PROCAL 2.28* -- -- Recent Labs 07/21/24 0533 07/22/24 0052 07/23/24 0043 WBC 10.0 10.1 9.9 HGB 10.3* 10.2* 10.6* HCT 31.8* 31.8* 31.5* PLT 187 191 195 LYMPHOPCT 26.9 -- -- MONOPCT 27.0* -- -- BASOPCT 0.2 -- -- NEUTROABS 4.5 -- -- Micro: C diff pcr positive, EIA negative GI PCR negative Blood cx negative Lines: PIV Radiography/Echo/Other: Chest x ray- negative for pneumonia Antimicrobials, Start/End Dates: Azithromyicn 07/20- present Ceftriaxone 07/18 Vancomycin 07/20 Impression: C.diff Leukocytosis Hypokalemia (2/ diarrhea) Depression GERD Hypothyroidism H/o renal CA s/p nephrectomy Plan: Presented with weakness, dehydration and diarrhea (listed as chronic but patient reports new on presentation) C/w po vancomycin. Plan 10 day course Stool log Trend wbc and temps Discharge planning: PO vancomycin for 10 days. Ok for discharge from ID perspective. Some episodes of diarrhea due to post infectious irritable bowel syndrome may still occur for a fewweeks. This was discussed with patient. Signs and symptoms of when to return to hospital were discussed with patient. Educated on c diff and recurrence. Total time of 50 minutes on this day of encounter spent on, but not limited to review of tests, medical records , counseling and education (patient, family member, caregiver), and counseling for risks, benefits, and consideration of use of antimicrobials. Kiara Lund MD 07/23/2024 12:21 PM * Sheldon Berumen DO - 07/23/2024 7:32 AM EST Hospitalist Progress Note [facility] [place] 07/23/2024 7:32 AM [phone]: Please page me for patient care issues. [phone]: Please page [facility] Hospitalist - [facility] for any issues. Subjective and Objective: Admit Date: 07/18/2024 PCP: Leonardo Lyles Chief Complaint Patient presents with Weakness, Gen Back Pain Pt arrived by EMS from home due to weakness / back pain. Report states ' pt is from home and complain of weakness / back pain / urine retention/ headache'. Upon assessment pt is a&ox msps intact - sob + pain -n/v - dizziness + weakness . Urinary Retention Adult diet Regular Dietary Orders (From admission, onward) Start Ordered 07/21/24942 Supplement:AM Snack; Chocolate Ensure Plus Until discontinued Question Answer Comment Frequency AM Snack Select supplement: Chocolate Ensure Plus 07/21/2494107/21/24942 Supplement:PM Snack; Apple Ensure Clear Until discontinued Question Answer Comment Frequency PM Snack Select supplement: Apple Ensure Clear 07/21/2442 07/18/24 1800 Adult diet Regular Diet effective now Question: Diet type Answer: Regular 07/18/24 180 No intake/output data recorded. @IODETAILS@ @[email or web address]@ Medications: enoxaparin, 30 mg, SubCUTAneous, Daily famotidine, 20 mg, Oral, Daily gabapentin, 300 mg, Oral, BID levothyroxine, 88 mcg, Oral, q24h sertraline, 200 mg, Oral, Daily sodium chloride 0.9%, 10 mL, IntraVENous, 2 times per day vancomycin, 125 mg, Oral, 4 times per day Recent Labs 07/21/2433 07/22/245107/23/24 0043 WBC 10.0 10.1 9.9 HGB 10.3* 10.2* 10.6* PLT 187 191 195 Recent Labs 07/21/2433 07/22/242 07/23/24 0043 NA 141 140 139 K 3.3* 3.2* 3.1* CL 110* 112* 112* CO2 23 21* 22* BUN 8* 6* 4* CREATININE 0.79 0.73 0.67 GLUCOSE 89 133* 100 Recent Labs 07/21/24532 AST 15 ALT 17 BILITOT 0.2 ALKPHOS 57 No results found for: TRIG, HDL, LDLCALC, CHOL No results found for: PHART, PO2ART, [id number] No results for input(s): INR in the last 72 hours. No results for input(s): CKTOTAL, CKMB, TROPONINI in the last 72 hours. No results for input(s): DDIMER in the last 72 hours. No results found for: HGBA1C No results found for: TSH Urine Culture: Results for orders placed or performed in visit on 06/30/24 Urine culture Collection Time: 06/30/24 2:34 PM Specimen: Urine, Clean Catch Result Value Ref Range Urine Culture >100,000 CFU/mL Escherichia coli (A) Susceptibility Escherichia coli - BROTH MICRODILUTION Amoxicillin / Clavulanate 8 Susceptible ug/ml Ampicillin >=32 Resistant ug/ml Ampicillin / Sulbactam 8 Susceptible ug/ml Aztreonam <=1 Susceptible ug/ml Cefazolin <=4 Susceptible ug/ml Cefepime <=1 Susceptible ug/ml Ceftriaxone <=1 Susceptible ug/ml Ciprofloxacin 0.5 Susceptible ug/ml Gentamicin <=1 Susceptible ug/ml Meropenem <=0.25 Susceptible ug/ml Nitrofurantoin <=16 Susceptible ug/ml Piperacillin / Tazobactam <=4 Susceptible ug/ml Trimethoprim / Sulfamethoxazole >=320 Resistant ug/ml Objective: Vitals: BP 128/61 (BP Location: Right arm, Patient Position: Sitting) Pulse 59 Temp 36.2 C (97.2 F) (Temporal) Resp 20 Ht 5' (1.524 m) Wt 123 lb 10.9 oz (56.1 kg) LMP (LMP Unknown) [id number]% BMI 24.15 kg/m Pulse Ox: SpO2 Av.7 % Min: 93 % Max: 95 % Supplemental O2: Past 24 hours events: fluids stopped overnight GENERAL: calm, no complaints CARDIOVASCULAR: no palpitations, regular RESPIRATORY: no rhonchi or crackles ABDOMEN: non-distended EXTREMITIES: moving spontaneously ANATOMY/TUBES/LINES: N/A Running Summary, Assessment, and Plan Kathryn is a 84 y.o. female with past medical history of hypothyroidism, GERD, chronic back pain, depression, scheduled for lumbar spinal surgery on 07/15 but was canceled because of insurance approval. Around the same time, she has stopped taking all her pain medication. Daughter at bedside providingadditional history stated that, she has progressively gotten weak since Sunday, to the point whereshe is unable to walk. This morning she had fever, chills. Patient reports abdominal pain, chronic diarrhea, worsening back pain, urine incontinence, denies any cough. Admitted for further evaluation and management. Evaluated by ID. Found to have C Diff and started on Oral Vanc. Planning on DC home tomorrow Acute, acute on chronic, unstable/uncontrolled chronic problems/diagnoses: Sepsis POA 07/13 C Diff C dif colitis Leukocytosis Hypokalemia Stable chronic problems affecting care, new non-acute diagnoses: Spinal stenosis Hypothyroidism Neuropathy As a result of the above findings & factors, the following mgmt was pursued: - Monitoring electrolytes - Oral Vanc x 10 days, script sent - OARRS reviewed, takes Vicodin 10s at home - am labs, replace lytes prn - 40 KCL 07/22 - 40 KCL BID 07/23 - PT/OT/CM/SW as appropriate - delirium precautions: limit night-time awakening - DVT prophylaxis: Lovenox Complexity: Acute illness or injury posing a threat to life or body function (HIGH). Risk: Admission to hospital-level care was considered or occurred (HIGH). Advance Directive: Full Anticipated Discharge - Date - 07/23 - 07/25 - Location - home - Pending the following - improved symptoms, stable renal function Total time spent (which include face to face and non face to face encounters) in minutes: 52 Toxic drug monitoring/narrow therapeutic index drug monitoring : # Drug name : Lovenox # Route administered : SQ # Method of monitoring : H&H and renal function # Drug name : Vicodin # Route administered : oral # Method of monitoring : RR, lethargy Extended Emergency Contact Information Primary Emergency Contact: Hyun Purcell Mobile Relation: Daughter Sheldon Berumen DO Division of Hospitalist Medicine [facility]patient Medical Services[place] * Tracie Quinn, LEGISLATIVE ANALYST - 07/22/2024 9:42 AM EST Images from the original note were not included. PHYSICAL THERAPY [facility] Treatment Note Name/MRN: Kathryn Tamez ([id number]) Date of : 1940 Age: 84 y.o. Room/Bed: W643/W643 A Discharge Recommendation: Alf Facility (could progress to home pending progress) Equipment Needed: (Likely FWW pending progress) Prior Level of Function Prior Level of ADL Function: Independent Prior Level of Mobility: Independent; Device: None Prior Level of Transfers: Independent Assessment Patient is most limited by stool incontinence and back pain during session. Able to perform bed mobility with SBA and transfers with CGA/min assist. Ambulates short distances in room with FWW and CGA. Standing tolerance of ~4 min, some postural sway and no LOB. Currently recommending SNF however patient could progress to home pending improvement in stool incontinence and back pain. Subjective Supine upon arrival, pleasant and agreeable to PT. Pain: back pain, did not rate Medical Precautions: Enhanced Contact Proper PPE donned/doffed in accordance with facility standards. Fall Risk: Reese Fall Risk Score: 75 (Medium Risk) Reese Fall Risk Score: 75 (High Risk) Precautions/Restrictions: N/A Overall Cognitive Status: WNL Overall Orientation Status: Oriented to Person Family/Caregiver Present: none Objective Bed Mobility Supine to sit: SBA Sit to supine: SBA Scooting: SBA HOB elevated, use of bed rail, cues for sequencing. Transfers/Mobility Sit to stand: Contact Guard, Min Assist Stand to sit: Contact Guard, Min Assist Good UE placement Device(s) used: Front wheeled walker Ambulation Ambulation 1 Assistive device(s) used: Front wheeled walker Assist level: Contact Guard Distance (ft): 20ft x 2 Quality of gait: No LOB, reciprocal stepping, narrow KOURTNEY, slow renetta. Requires rest breaks due tofatigue and decreased endurance Balance During Session: Posture: fair Sitting - Static: SBA Sitting - Dynamic: SBA Standing - Static: Contact Guard Standing - Dynamic: Min Assist Standing balance with intermittent UE support and focus on balance, able to reach outside KOURTNEY and across midline with no LOB. Stands for ~4 min before rest. Exercises Exercises Ankle Pumps: x20 reps Plan Continue acute PT per plan of care. Safety/Education Safety Safety Devices in place: All fall risk precautions in place, call light within reach, and left in bed Restraints: No Education Transfers, gait, balance Outcome Measures AM-PAC AM-PAC Inpatient Mobility Raw Score (No Stairs) : 18 JH-HLM JH-HLM Score: Walked 25 ft or more (i.e. walked outside of room) Goals Patient Stated Goal: stated she did not have any therapy goals at this time. Encounter Problems Encounter Problems (Active) Mobility Patient will ambulate 200 feet with modified independence and least restrictive device in order to improve safety and independence with mobility. (Progressing) Start: 07/19/24 Expected End: 08/02/24 Patient will ascend and descend 8 stairs with least restrictive device and min assist in order to safely negotiate home. (Not Addressed) Start: 07/19/24 Expected End: 08/02/24 Transfers Patient will perform bed mobility with modified independence in order to improve independence and prepare for out of bed mobility. (Progressing) Start: 07/19/24 Expected End: 08/02/24 Patient will complete sit to stand transfer with modified independence to LRD in order to improve safety and prepare for out of bed mobility. (Progressing) Start: 07/19/24 Expected End: 08/02/24 Therapy Time Individual Co-treatment Time In 0907 Time Out 0938 Minutes 31 Timed Code Treatment Minutes: 31 Minutes (Gait, FA) Tracie Quinn PTA Cosigned by Anne Jones, PT at 07/22/2024 9:54 AM EST * Sheldon Berumen DO - 07/22/2024 9:16 AM EST Hospitalist Progress Note - [facility] [place] 07/22/2024 9:16 AM [phone]: Please page me for patient care issues. [phone]: Please page [facility] Hospitalist - [facility] for any issues. Subjective and Objective: Admit Date: 07/18/2024 PCP: Leonardo Lyles Chief Complaint Patient presents with Weakness, Gen Back Pain Pt arrived by EMS from home due to weakness / back pain. Report states ' pt is from home and complain of weakness / back pain / urine retention/ headache'. Upon assessment pt is a&ox msps intact - sob + pain -n/v - dizziness + weakness . Urinary Retention Adult diet Regular Dietary Orders (From admission, onward) Start Ordered 07/21/24942 Supplement:AM Snack; Chocolate Ensure Plus Until discontinued Question Answer Comment Frequency AM Snack Select supplement: Chocolate Ensure Plus 07/21/2494107/21/24942 Supplement:PM Snack; Apple Ensure Clear Until discontinued Question Answer Comment Frequency PM Snack Select supplement: Apple Ensure Clear 07/21/2442 07/18/24 1800 Adult diet Regular Diet effective now Question: Diet type Answer: Regular 07/18/24 180 I/O last 3 completed shifts: In: 2014 (35.9 mL/kg) [I.V.:2014 (35.9 mL/kg)] Out: - (0 mL/kg) Weight: 56.2 kg @IODETAILS@ @[id number]@ Medications: sodium chloride, 75 mL/hr, Last Rate: 75 mL/hr (07/22/24 0736) enoxaparin, 30 mg, SubCUTAneous, Daily famotidine, 20 mg, Oral, Daily gabapentin, 300 mg, Oral, BID levothyroxine, 88 mcg, Oral, q24h sertraline, 200 mg, Oral, Daily sodium chloride 0.9%, 10 mL, IntraVENous, 2 times per day vancomycin, 125 mg, Oral, 4 times per day Recent Labs 07/20/24 0641 07/21/24 0533 07/22/24 0052 WBC 12.4* 10.0 10.1 HGB 10.6* 10.3* 10.2* PLT 175 187 191 Recent Labs 07/20/24 0641 07/21/24 0533 07/22/24 0052 NA 142 141 140 K 3.2* 3.3* 3.2* CL 112* 110* 112* CO2 23 23 21* BUN 10 8* 6* CREATININE 0.79 0.79 0.73 GLUCOSE 92 89 133* Recent Labs 07/20/24 0641 07/21/24 0533 AST 18 15 ALT 21 17 BILITOT 0.3 0.2 ALKPHOS 54 57 No results found for: TRIG, HDL, LDLCALC, CHOL No results found for: PHART, PO2ART, OUA5DPM No results for input(s): INR in the last 72 hours. No results for input(s): CKTOTAL, CKMB, TROPONINI in the last 72 hours. No results for input(s): DDIMER in the last 72 hours. No results found for: HGBA1C No results found for: TSH Urine Culture: Results for orders placed or performed in visit on 06/30/24 Urine culture Collection Time: 06/30/24 2:34 PM Specimen: Urine, Clean Catch Result Value Ref Range Urine Culture >100,000 CFU/mL Escherichia coli (A) Susceptibility Escherichia coli - BROTH MICRODILUTION Amoxicillin / Clavulanate 8 Susceptible ug/ml Ampicillin >=32 Resistant ug/ml Ampicillin / Sulbactam 8 Susceptible ug/ml Aztreonam <=1 Susceptible ug/ml Cefazolin <=4 Susceptible ug/ml Cefepime <=1 Susceptible ug/ml Ceftriaxone <=1 Susceptible ug/ml Ciprofloxacin 0.5 Susceptible ug/ml Gentamicin <=1 Susceptible ug/ml Meropenem <=0.25 Susceptible ug/ml Nitrofurantoin <=16 Susceptible ug/ml Piperacillin / Tazobactam <=4 Susceptible ug/ml Trimethoprim / Sulfamethoxazole >=320 Resistant ug/ml Objective: Vitals: BP 131/68 (BP Location: Right arm, Patient Position: Sitting) Pulse 54 Temp (!) 35.8 C (96.5 F) (Temporal) Resp 18 Ht 5' (1.524 m) Wt 123 lb 14.4 oz (56.2 kg) LMP (LMP Unknown) SpO2 93% BMI 24.20 kg/m Pulse Ox: SpO2 Av % Min: 93 % Max: 97 % Supplemental O2: Past 24 hours events: diarrhea improving GENERAL: alert and oriented, no acute distress CARDIOVASCULAR: RRR, no murmurs RESPIRATORY: clear without wheezes ABDOMEN: soft, non tender EXTREMITIES: no edema ANATOMY/TUBES/LINES: N/A Running Summary, Assessment, and Plan Kathryn is a 84 y.o. female with past medical history of hypothyroidism, GERD, chronic back pain, depression, scheduled for lumbar spinal surgery on 07/15 but was canceled because of insurance approval. Around the same time, she has stopped taking all her pain medication. Daughter at bedside providingadditional history stated that, she has progressively gotten weak since [place], to the point whereshe is unable to walk. This morning she had fever, chills. Patient reports abdominal pain, chronic diarrhea, worsening back pain, urine incontinence, denies any cough. Admitted for further evaluation and management. Found to have C Diff and started on Oral Vanc. Acute, acute on chronic, unstable/uncontrolled chronic problems/diagnoses: Sepsis POA 2/ C Diff C dif colitis Leukocytosis Hypokalemia Stable chronic problems affecting care, new non-acute diagnoses: Spinal stenosis Hypothyroidism Neuropathy As a result of the above findings & factors, the following mgmt was pursued: - IV saline - monitoring electrolytes - Oral Vanc - OARRS reviewed, takes Vicodin 10s at home - am labs, replace lytes prn - 40 KCL 07/22 - PT/OT/CM/SW as appropriate - delirium precautions: limit night-time awakening - DVT prophylaxis: Lovenox Complexity: Acute illness or injury posing a threat to life or body function (HIGH). Risk: Admission to hospital-level care was considered or occurred (HIGH). Advance Directive: Full Anticipated Discharge - Date - 07/23 - 07/25 - Location - home vs. SNF - Pending the following - improved symptoms, stable renal function Total time spent (which include face to face and non face to face encounters) in minutes: 51 Toxic drug monitoring/narrow therapeutic index drug monitoring : # Drug name : Lovenox # Route administered : SQ # Method of monitoring : H&H and renal function # Drug name : Vicodin # Route administered : oral # Method of monitoring : RR, lethargy Extended Emergency Contact Information Primary Emergency Contact: Hyun Purcell Mobile Relation: Daughter Sheldon Berumen DO Division of Hospitalist Medicine [place]patient Medical Services[place] * Marcell López MD - 07/21/2024 1:15 PM EST Hospitalist Progress Note Subjective: Admit Date: 07/18/2024 PCP: Leonardo Lyles Room#: W2-553/W5-754 A Brief Hospital course: Kathryn is a 84 y.o. female with past medical history of hypothyroidism, GERD, chronic back pain, depression, scheduled for lumbar spinal surgery on 07/15 but was canceled because of insurance approval. Around the same time, she has stopped taking all her pain medication. Daughter at bedside providingadditional history stated that, she has progressively gotten weak since Sunday, to the point whereshe is unable to walk. This morning she had fever, chills. Patient reports abdominal pain, chronic diarrhea, worsening back pain, urine incontinence, denies any cough. Interval History: 07/19/2024-No overnight issues. Still doesn't feel great this AM - no appetite this AM - had some diarrhea this AM which has been present for a month. - having some nausea - no abdominal pain - slight HANKS 07/20 - still with diarrhea - poor appetite - feeling a little bit better overall today 07/21 - pt states her diarrhea is improved - no episodes today as of yet - still with poor appetite Case and plan discussed with patient and bedside nurse. All questions answered. Past Medical History: Past Medical History: Diagnosis Date Back pain Depression Gastritis GERD (gastroesophageal reflux disease) Hypothyroid Adult diet Regular 24HR INTAKE/OUTPUT: Intake/Output Summary (Last 24 hours) at 07/21/2024 1315 Last data filed at 07/21/2024 0305 Gross per 24 hour Intake 2014 ml Output -- Net 2014 ml LABS: CBC: Recent Labs 07/19/2430207/20/24 0641 07/21/24 0533 WBC 25.6* 12.4* 10.0 RBC 3.78* 3.72* 3.63* HGB 10.9* 10.6* 10.3* HCT 32.3* 32.5* 31.8* MCV 85.4 87.4 87.6 RDW 14.2 14.0 13.8 PLT 175 175 187 BMP: Recent Labs 07/19/2430207/20/24 0641 07/21/24 0533 NA 141 142 141 K 3.6 3.2* 3.3* CL 112* 112* 110* CO2 25 23 23 BUN 17 10 8* CREATININE 0.88 0.79 0.79 GLUCOSE 101 92 89 CALCIUM 8.1* 7.4* 7.6* ANIONGAP 4 7 8 LIVER PROFILE: Recent Labs 07/19/2430207/20/24 0641 07/21/24 0533 AST 37* 18 15 ALT 35* 21 17 BILITOT 0.4 0.3 0.2 ALKPHOS 64 54 57 PROT 5.8* 5.6* 5.9* PT/INR: No results for input(s): PROTIME, INR in the last 72 hours. CARDIAC ENZYMES: No results for input(s): TROPONINI in the last 72 hours. Procalcitonin: Lab Results Component Value Date PROCAL 2.28 (H) 07/21/2024 COVID-19 PCR: No results for input(s): COVID19 in the last 72 hours. Objective: Vitals: BP 138/72 (BP Location: Right arm, Patient Position: Sitting) Pulse 60 Temp (!) 35.8 C (96.5 F) (Temporal) Resp 14 Ht 5' (1.524 m) Wt 124 lb 1.6 oz (56.3 kg) LMP (LMP Unknown) SpO2 94% BMI 24.24 kg/m Pulse Ox: SpO2 Av.5 % Min: 94 % Max: 95 % Supplemental O2: Physical Exam HENT: Mouth/Throat: Mouth: Mucous membranes are moist. Cardiovascular: Rate and Rhythm: Normal rate and regular rhythm. Pulses: Normal pulses. Heart sounds: Normal heart sounds. Pulmonary: Effort: Pulmonary effort is normal. Abdominal: General: Abdomen is flat. Bowel sounds are normal. Palpations: Abdomen is soft. Skin: General: Skin is warm. Neurological: General: No focal deficit present. Mental Status: She is alert and oriented to person, place, and time. Medications: Scheduled PRN enoxaparin, 30 mg, SubCUTAneous, Daily famotidine, 20 mg, Oral, Daily gabapentin, 300 mg, Oral, BID levothyroxine, 88 mcg, Oral, q24h sertraline, 200 mg, Oral, Daily sodium chloride 0.9%, 10 mL, IntraVENous, 2 times per day vancomycin, 125 mg, Oral, 4 times per day PRN medications: acetaminophen OR acetaminophen, HYDROcodone - acetaminophen, hydrOXYzine HCl, naloxone, ondansetron ODT OR ondansetron, polyethylene glycol (PEG) 3350, sodium chloride, sodium chloride 0.9%, SUMAtriptan Continuous sodium chloride, 75 mL/hr, Last Rate: 75 mL/hr (07/21/24 0305) Assessment Data: (CAT1) Reviewed 3 or more labs/studies previously ordered by me not previously counted (each=1, panels count as 1). (LOW: 2x CAT1 or independent historian MOD: 3x CAT1 or 1x CAT3 EXTENSIVE: 3x CAT1 and 1x CAT3) Acute, acute on chronic, unstable/uncontrolled chronic problems/diagnoses: Sepsis POA - ? PNA - groundglass infiltrates seen on CT spine C dif colitis Leukocytosis Hypokalemia Stable chronic problems affecting care, new non-acute diagnoses: Spinal stenosis Hypothyroidism Neuropathy Plan As a result of the above findings & factors, the following mgmt was pursued: - ID input appreciated - completed course of zmax - complete course of PO vanco for cdiff - monitor stools - BC negative at 48 hours - trend WBC - much improved to 10 today - gentle IVF while poor PO intake - am labs, replace lytes prn - PT/OT/CM/SW - delirium precautions: increase activity - DVT prophylaxis: enoxaparin and encourage ambulation Complexity: Acute illness with systemic symptoms (MOD). Risk: Prescription drug/IVF/colloid was initiated, discontinued, adjusted; or reviewed with decision to maintain current orders (MOD). Advance Directive: Full Code Anticipated Discharge - Date - 07/22 - Location - Home - Pending the following - infectious workup and improvement in diarrhea Total time spent (which include face to face and non face to face encounters) : 41 minutes Extended Emergency Contact Information Primary Emergency Contact: Hyun Purcell Mobile Relation: Daughter Marcell López MD Division of Hospital Medicine [facility]patient Medical Services[place] * Kiara Lund MD - 07/21/2024 11:43 AM EST Images from the original note were not included. [facility] - Infectious Diseases Attending Progress Note Subjective: Patient is seen for follow up of c.diff D/w patient and RN- patient is good historian. Listed on the chart as having chronic diarrhea but patient tells me that she has a BM once a day or sometimes once in 2 days. Per RN, now having diarrhea 6-7 times a day Wbc trended down Objective: Vitals: Patient Vitals for the past 24 hrs: BP Temp Temp src Pulse Resp SpO2 Height Weight 07/21/24 0932 -- -- -- -- -- -- -- 124 lb 1.6 oz (56.3 kg) 07/21/24 0757 138/72 (!) 35.8 C (96.5 F) Temporal 60 14 94 % -- -- 07/21/24 0738 -- -- -- -- -- -- 5' (1.524 m) -- 07/20/242055 130/63 36.7 C (98.1 F) Temporal 63 24 95 % -- -- Physical Exam Labs: Recent Labs 07/18/24181007/19/2430207/20/24 0641 07/21/24 0533 NA -- 141 142 141 K -- 3.6 3.2* 3.3* CL -- 112* 112* 110* CO2 -- 23 BUN -- 17 10 8* CREATININE -- 0.88 0.79 0.79 GLUCOSE -- 101 92 89 CALCIUM -- 8.1* 7.4* 7.6* PROT -- 5.8* 5.6* 5.9* BILITOT -- 0.4 0.3 0.2 ALKPHOS -- 64 54 57 AST -- 37* 18 15 ALT -- 35* 21 17 PROCAL 6.90* -- 4.14* 2.28* Recent Labs 07/19/2430207/20/24 0641 07/21/24 0533 WBC 25.6* 12.4* 10.0 HGB 10.9* 10.6* 10.3* HCT 32.3* 32.5* 31.8* PLT 175 175 187 LYMPHOPCT 13.8* 21.3 26.9 MONOPCT 20.5* 21.3* 27.0* BASOPCT 0.2 0.2 0.2 NEUTROABS 16.4* 7.0 4.5 Micro: C diff pcr positive, EIA negative GI PCR negative Blood cx negative Lines: PIV Radiography/Echo/Other: Chest x ray- negative for pneumonia Antimicrobials, Start/End Dates: Azithromyicn 07/20- present Ceftriaxone 07/18 Vancomycin 07/20 Impression: C.diff Leukocytosis Hypokalemia (2/2 diarrhea) Depression GERD Hypothyroidism H/o renal CA s/p nephrectomy Plan: Presented with weakness, dehydration and diarrhea (listed as chronic but patient reports new on presentation) C/w po vancomycin. Plan 10 day course Dc azithromycin Stool log Trend wbc and temps Based on diagnoses and management, combination of acute and chronic problems, exacerbations and/or acuity, this visit should be considered to be of moderate complexity. Kiara Lund MD 07/21/2024 11:49 AM * Karmen Polo, OT - 07/20/2024 12:22 PM EST Images from the original note were not included. OCCUPATIONAL THERAPY [facility] Initial Evaluation Name/MRN: Kathryn Tamez ([id number]) Evaluation Date: 07/20/2024 Date of : 1940 Admission Date: 07/18/2024 1:53 PM Age: 84 y.o. Room/Bed: [facility] A Discharge Recommendation: Home with Home health OT, Alf Facility, Continue to assess pending progress Other: continue to assess Assessment IMPRESSION: Pt admit w/ inability to walk. Pt lives at home with her cousin, reportedly independentwith ADLs and IADLs at baseline, ambulating without a device. Pt at this time requiring MIN-CGA assist for functional mobility and transfers as well as ADL participation. Continue to assess discharge recommendations, pt at this time demo'ing unsteadiness throughout gate and decreased endurance which would impact ability for home going today. Continue to assess as pt may likely progress to home with home OT Admitting Diagnosis: Inability to walk Performance Deficits /Impairments: Decreased Functional Mobility, Decreased ADL status, Decreased Endurance, Decreased Balance, and Decreased High Level IADLs Prognosis: Good Decision Making: Medium Complexity Subjective Pt in bed upon OT arrlval. Agreeable with max encouragement Pain: RN managing pain. 0-10 pain scale: 7/10 Location: BLEs, back - chronic per report \ Past Medical History: Past Medical History: Diagnosis Date Back pain Depression Gastritis GERD (gastroesophageal reflux disease) Hypothyroid Past Surgical History: Past Surgical History: Procedure Laterality Date BACK SURGERY 2018 CHOLECYSTECTOMY 1981 COLONOSCOPY 07/2018 EGD with biopsy COLONOSCOPY 07/2018 HYSTERECTOMY 2004 JOINT REPLACEMENT Left left hip KIDNEY SURGERY Right right kideny remove, due tto cancer NEPHRECTOMY Left THYROIDECTOMY, PARTIAL TOTAL ANKLE ARTHROPLASTY Right Admission Diagnosis: Patient Active Problem List Diagnosis Date Noted Inability to walk 07/18/2024 Fall at home, initial encounter 05/07/2021 Mixed incontinence 05/07/2021 Gastro-esophageal reflux disease without esophagitis 05/07/2021 Migraines 05/07/2021 Osteoporosis of lumbar spine 05/07/2021 Myalgia 05/07/2021 Urgency of urination 05/07/2021 Urge incontinence of urine 05/07/2021 Low back pain 05/07/2021 Other chronic pain 05/07/2021 Major depressive disorder, single episode, unspecified 05/07/2021 Atrophy of vagina 05/07/2021 Osteopenia of multiple sites 05/07/2021 Thyrotoxicosis, unspecified without thyrotoxic crisis or storm 05/07/2021 Spinal stenosis of lumbar region 05/07/2021 Anxiety associated with depression 05/07/2021 Adjustment disorder with mixed anxiety and depressed mood 05/07/2021 Postsurgical hypothyroidism 05/07/2021 Other bursitis of hip, right hip 05/07/2021 Stress incontinence in female 05/07/2021 Pain in right hip 05/07/2021 Diarrhea 04/21/2021 Gastroenteritis and colitis, viral 08/06/2018 Severe malnutrition ([facility]) ([facility]) 08/06/2018 Vitamin D deficiency 08/06/2018 Infection due to Norovirus species 08/06/2018 Medical Precautions: Enhanced Contact Proper PPE donned/doffed in accordance with facility standards. Fall Risk: Reese Fall Risk Score: 75 (Medium Risk) Reese Fall Risk Score: 75 (High Risk) Precautions/Restrictions: N/A Family/Caregiver Present: none Overall Cognitive Status: Exceptions - Arousal/alertness: delayed responses to stimuli and inconsistent responses to stimuli - Following commands: follows one step commands with increased time and follows one step commands with repetition - Safety judgement: decreased awareness of need for assistance - Insights: decreased awareness of deficits Overall Orientation Status: Oriented x4 Social/Functional History Patient admitted from home. Lives With: cousin Type of Home: single family home Home Layout: Two Level Home and full bath on 1st, bed on 2nd. > 9 steps to enter with no rail. 6+7 steps to bed room with 1 rail. 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 Increased time required, standing rest break required 1/2 to doorway d/t back pain per pt report Device(s) used: Front wheeled walker and Used therapist for support AM-PAC AM-PAC Inpatient Daily Activity Raw Score: 21 ADL Inpatient CMS G-Code Modifier: CJ Plan Pt would benefit from skilled acute OT services to address Strengthening, Balance Training, Self-Care/ADL Training, Functional Mobility Training, Endurance Training, Safety Education and Training, Pain Management, Equipment Evaluation/Education, Home Management Training, Patient/Caregiver Training,and Cognitive/Perceptual Training. Frequency: 3x/week for 4 weeks Barriers: Pain, Impaired balance, Decreased endurance, and Stairs at home Safety/Education Safety Safety Devices in place: call light within reach, left in bed, gait belt, and no alarms engaged upon entry Restraints: No Education Education Given To: patient Education Provided: OT Role, Plan of Care, Discharge Recommendations, and Benefits of Increasing Activity Education Method: Verbal Barriers to Learning: None Education Outcome: Verbalized Understanding Goals Patient Stated Goal: Home Encounter Problems Encounter Problems (Active) Balance Patient will maintain dynamic standing balance for 10+ minutes with independence in order to demonstrate decreased risk of falling. Start: 07/20/24 Expected End: 08/17/24 Dressings Lower Extremities Patient will dress lower body indep Start: 07/20/24 Expected End: 08/17/24 Grooming Patient will complete daily grooming tasks sink side indep Start: 07/20/24 Expected End: 08/17/24 Toileting Patient will complete toileting tasks at standard toilet with independence. Start: 07/20/24 Expected End: 08/17/24 Transfers Patient will complete functional transfer with least restrictive device with independence in order to prepare for ambulation. Start: 07/20/24 Expected End: 08/17/24 Therapy Time Individual Co-Treatment Co-Evaluation Time In 1142 Time Out 1156 Minutes 14 Karmen Polo OT Patient's Occupational Therapy Plan of Care supervision is transferred to a [facility] Occupational Therapist. Goals and/or treatment plan was established in collaboration with patient/family/other representatives. * Marcell López MD - 07/20/2024 10:51 AM EST Hospitalist Progress Note Subjective: Admit Date: 07/18/2024 PCP: Leonardo Lyles Room#: W6-643/[id number] A Brief Hospital course: Kathryn is a 84 y.o. female with past medical history of hypothyroidism, GERD, chronic back pain, depression, scheduled for lumbar spinal surgery on 07/15 but was canceled because of insurance approval. Around the same time, she has stopped taking all her pain medication. Daughter at bedside providingadditional history stated that, she has progressively gotten weak since Sunday, to the point whereshe is unable to walk. This morning she had fever, chills. Patient reports abdominal pain, chronic diarrhea, worsening back pain, urine incontinence, denies any cough. Interval History: 07/19/2024-No overnight issues. Still doesn't feel great this AM - no appetite this AM - had some diarrhea this AM which has been present for a month. - having some nausea - no abdominal pain - slight HANKS 07/20 - still with diarrhea - poor appetite - feeling a little bit better overall today Case and plan discussed with patient and bedside nurse. All questions answered. Past Medical History: Past Medical History: Diagnosis Date Back pain Depression Gastritis GERD (gastroesophageal reflux disease) Hypothyroid Adult diet Regular 24HR INTAKE/OUTPUT: Intake/Output Summary (Last 24 hours) at 07/20/2024 1051 Last data filed at 07/20/2024 0021 Gross per 24 hour Intake 2126.25 ml Output -- Net 2126.25 ml LABS: CBC: Recent Labs 07/18/24 1446 07/19/2430207/20/24 0641 WBC 32.1* 25.6* 12.4* RBC 4.20 3.78* 3.72* HGB 12.0 10.9* 10.6* HCT 36.2 32.3* 32.5* MCV 86.2 85.4 87.4 RDW 13.9 14.2 14.0 PLT 180 175 175 BMP: Recent Labs 07/18/24 14407/19/2430207/20/24640 NA 141 141 142 K 4.0 3.6 3.2* CL 107 112* 112* CO2 BUN 19 17 10 CREATININE 1.02 0.88 0.79 GLUCOSE 154* 101 92 CALCIUM 8.8 8.1* 7.4* ANIONGAP 9 4 7 LIVER PROFILE: Recent Labs 07/18/24 14407/19/2430207/20/2441 AST 58* 37* 18 ALT 44* 35* 21 BILITOT 0.4 0.4 0.3 ALKPHOS 79 64 54 PROT 6.5 5.8* 5.6* PT/INR: No results for input(s): PROTIME, INR in the last 72 hours. CARDIAC ENZYMES: No results for input(s): TROPONINI in the last 72 hours. Procalcitonin: Lab Results Component Value Date PROCAL 4.14 (H) 07/20/2024 COVID-19 PCR: No results for input(s): COVID19 in the last 72 hours. Objective: Vitals: BP 109/58 (BP Location: Right arm) Pulse 62 Temp 36.4 C (97.5 F) (Temporal) Resp 20 Ht 5' (1.524 m) Wt 119 lb (54 kg) LMP (LMP Unknown) SpO2 97% BMI 23.24 kg/m Pulse Ox: SpO2 Av % Min: 93 % Max: 97 % Supplemental O2: Physical Exam HENT: Mouth/Throat: Mouth: Mucous membranes are moist. Cardiovascular: Rate and Rhythm: Normal rate and regular rhythm. Pulses: Normal pulses. Heart sounds: Normal heart sounds. Pulmonary: Effort: Pulmonary effort is normal. Abdominal: General: Abdomen is flat. Bowel sounds are normal. Palpations: Abdomen is soft. Skin: General: Skin is warm. Neurological: General: No focal deficit present. Mental Status: She is alert and oriented to person, place, and time. Medications: Scheduled PRN azithromycin, 500 mg, Oral, q24h enoxaparin, 30 mg, SubCUTAneous, Daily famotidine, 20 mg, Oral, Daily gabapentin, 300 mg, Oral, BID levothyroxine, 88 mcg, Oral, q24h potassium chloride, 40 mEq, Oral, Once sertraline, 200 mg, Oral, Daily sodium chloride 0.9%, 10 mL, IntraVENous, 2 times per day PRN medications: acetaminophen OR acetaminophen, HYDROcodone - acetaminophen, hydrOXYzine HCl, naloxone, ondansetron ODT OR ondansetron, polyethylene glycol (PEG) 3350, sodium chloride, sodium chloride 0.9%, SUMAtriptan Continuous sodium chloride, 75 mL/hr, Last Rate: 75 mL/hr (07/20/24 0021) Assessment Data: (CAT1) Reviewed 3 or more labs/studies previously ordered by me not previously counted (each=1, panels count as 1). (LOW: 2x CAT1 or independent historian MOD: 3x CAT1 or 1x CAT3 EXTENSIVE: 3x CAT1 and 1x CAT3) Acute, acute on chronic, unstable/uncontrolled chronic problems/diagnoses: Sepsis POA - ? PNA - groundglass infiltrates seen on CT spine Leukocytosis Hypokalemia Stable chronic problems affecting care, new non-acute diagnoses: Spinal stenosis Hypothyroidism Neuropathy Plan As a result of the above findings & factors, the following mgmt was pursued: - ID input appreciated - on zmax for now to cover for atypical PNA - urinary strep/legionella antigens negative - BC negative at 24 hours - trend WBC - much improved to 12 today - stool studies collected today - add imodium for diarrhea if cultures negative - gentle IVF while poor PO intake - am labs, replace lytes prn - PT/OT/CM/SW - delirium precautions: increase activity - DVT prophylaxis: enoxaparin and encourage ambulation Complexity: Acute illness with systemic symptoms (MOD). Risk: Prescription drug/IVF/colloid was initiated, discontinued, adjusted; or reviewed with decision to maintain current orders (MOD). Advance Directive: Full Code Anticipated Discharge - Date - 07/22 - Location - Home - Pending the following - infectious workup Total time spent (which include face to face and non face to face encounters) : 41 minutes Extended Emergency Contact Information Primary Emergency Contact: Hyun Purcell Mobile Relation: Daughter Marcell Yonny MD [place] Division of Hospital Medicine [place] Medical Services[place] * Marcell López MD - 07/19/2024 10:28 AM EST Hospitalist Progress Note Subjective: Admit Date: 07/18/2024 PCP: Leonardo Lyles Room#: W6-643/W6-643 A Brief Hospital course: Kathryn is a 84 y.o. female with past medical history of hypothyroidism, GERD, chronic back pain, depression, scheduled for lumbar spinal surgery on 07/15 but was canceled because of insurance approval. Around the same time, she has stopped taking all her pain medication. Daughter at bedside providingadditional history stated that, she has progressively gotten weak since Sunday, to the point whereshe is unable to walk. This morning she had fever, chills. Patient reports abdominal pain, chronic diarrhea, worsening back pain, urine incontinence, denies any cough. Interval History: 07/19/2024-No overnight issues. Still doesn't feel great this AM - no appetite this AM - had some diarrhea this AM which has been present for a month. - having some nausea - no abdominal pain - slight HANKS Case and plan discussed with patient and bedside nurse. All questions answered. Past Medical History: Past Medical History: Diagnosis Date Back pain Depression Gastritis GERD (gastroesophageal reflux disease) Hypothyroid Adult diet Regular 24HR INTAKE/OUTPUT: Intake/Output Summary (Last 24 hours) at 07/19/2024 1028 Last data filed at 07/18/2024 2224 Gross per 24 hour Intake 1547.5 ml Output -- Net 1547.5 ml LABS: CBC: Recent Labs 07/18/24 1446 07/19/24 0303 WBC 32.1* 25.6* RBC 4.20 3.78* HGB 12.0 10.9* HCT 36.2 32.3* MCV 86.2 85.4 RDW 13.9 14.2 PLT 180 175 BMP: Recent Labs 07/18/24 1446 07/19/24 0303 NA 141 141 K 4.0 3.6 CL 107 112* CO2 BUN 19 17 CREATININE 1.02 0.88 GLUCOSE 154* 101 CALCIUM 8.8 8.1* ANIONGAP 9 4 LIVER PROFILE: Recent Labs 07/18/24 1446 07/19/24 0303 AST 58* 37* ALT 44* 35* BILITOT 0.4 0.4 ALKPHOS 79 64 PROT 6.5 5.8* PT/INR: No results for input(s): PROTIME, INR in the last 72 hours. CARDIAC ENZYMES: No results for input(s): TROPONINI in the last 72 hours. Procalcitonin: Lab Results Component Value Date PROCAL 6.90 (H) 07/18/2024 COVID-19 PCR: No results for input(s): COVID19 in the last 72 hours. Objective: Vitals: BP 107/52 (BP Location: Right arm) Pulse 62 Temp 36.8 C (98.2 F) (Temporal) Resp 20 Ht 5' (1.524 m) Wt 119 lb (54 kg) LMP (LMP Unknown) SpO2 98% BMI 23.24 kg/m Pulse Ox: SpO2 Av.7 % Min: 92 % Max: 100 % Supplemental O2: Physical Exam HENT: Mouth/Throat: Mouth: Mucous membranes are moist. Cardiovascular: Rate and Rhythm: Normal rate and regular rhythm. Pulses: Normal pulses. Heart sounds: Normal heart sounds. Pulmonary: Effort: Pulmonary effort is normal. Abdominal: General: Abdomen is flat. Bowel sounds are normal. Palpations: Abdomen is soft. Skin: General: Skin is warm. Neurological: General: No focal deficit present. Mental Status: She is alert and oriented to person, place, and time. Medications: Scheduled PRN cefTRIAXone, 1 g, IntraVENous, q24h And azithromycin, 500 mg, Oral, q24h enoxaparin, 30 mg, SubCUTAneous, Daily famotidine, 20 mg, Oral, Daily gabapentin, 300 mg, Oral, BID levothyroxine, 88 mcg, Oral, q24h sertraline, 200 mg, Oral, Daily sodium chloride 0.9%, 10 mL, IntraVENous, 2 times per day PRN medications: acetaminophen OR acetaminophen, acetaminophen, HYDROcodone - acetaminophen, hydrOXYzine HCl, naloxone, ondansetron ODT OR ondansetron, polyethylene glycol (PEG) 3350, sodium chloride, sodium chloride 0.9%, SUMAtriptan Continuous sodium chloride, 75 mL/hr, Last Rate: 75 mL/hr (07/18/24 7167) Assessment Data: (CAT1) Reviewed 3 or more labs/studies previously ordered by me not previously counted (each=1, panels count as 1). (LOW: 2x CAT1 or independent historian MOD: 3x CAT1 or 1x CAT3 EXTENSIVE: 3x CAT1 and 1x CAT3) Acute, acute on chronic, unstable/uncontrolled chronic problems/diagnoses: Sepsis POA - ? PNA - groundglass infiltrates seen on CT spine Leukocytosis Stable chronic problems affecting care, new non-acute diagnoses: Spinal stenosis Hypothyroidism Neuropathy Plan As a result of the above findings & factors, the following mgmt was pursued: - ID input appreciated - on zmax/rocephin for now to cover for PNA - check urinary strep/legionella antigens - await blood culture results - trend WBC - add imodium for diarrhea - gentle IVF while poor PO intake - am labs, replace lytes prn - PT/OT/CM/SW - delirium precautions: increase activity - DVT prophylaxis: enoxaparin and encourage ambulation Complexity: Acute illness with systemic symptoms (MOD). Risk: Prescription drug/IVF/colloid was initiated, discontinued, adjusted; or reviewed with decision to maintain current orders (MOD). Advance Directive: Full Code Anticipated Discharge - Date - 07/22 - Location - Home - Pending the following - infectious workup Total time spent (which include face to face and non face to face encounters) : 41 minutes Extended Emergency Contact Information Primary Emergency Contact: Hyun Purcell Mobile Relation: Daughter Marcell López MD Division of Hospital Medicine Inpatient Medical Services[place] * Muriel Lockwood, PT - 07/19/2024 9:40 AM EST Images from the original note were not included. PHYSICAL THERAPY [facility] Initial Evaluation Name/MRN: Kathryn Tamez ([id number]) Evaluation Date: 07/19/2024 Date of : 1940 Admission Date: 07/18/2024 1:53 PM Age: 84 y.o. Room/Bed: [facility] A Discharge Recommendation: Continue to assess pending progress (SNF vs home with home health PT pending progress, pt with multiple entry steps) Equipment Needed: (Likely FWW pending progress) Assessment IMPRESSION: Pt presented from home with progressing weakness, admitted for inability to walk and possible sepsis from pneumonia. Pt was also scheduled for L/S surgery 07/15 but states it was canceled due to insurance not having the paperwork completed. Prior to admission pt reports indep with ADLs , IADLs, and community distance mobility without assistive device. (+) fall hx. Pt demonstrates with min/CGA level mobility with limited amb with FWW at evaluation. Pt has >9 steps to enter home without rail. Rec SNF at this time as pt is currently below baseline level and demonstrates with decreased activity tolerance. Will continue to assess progress towards goals regarding discharge rec with pt hopefully progressing to home with home health PT if able to achieve step goal. Admitting Diagnosis: inabiliyt to walk, pneumonia Prognosis: excellent Performance Deficits /Impairments: Decreased Functional Mobility, Decreased ADL status, Decreased Strength, Decreased Safety Awareness, Decreased Endurance, Decreased Balance, Decreased ROM, and Decreased Sensation Decision Making: Medium Complexity Subjective Pt reclined in bed with eyes closed. Agreeable to therapy with encouragement and education of benefits of increased mobility. Pt reports chronic R LE numbness. Denies dizziness/nausea at rest but didreport increased nausea after amb resolving with supine in bed. RN cleared pt for PT eval. Pain: 0-10 pain scale: 7/10 Location: back, R LE, and HANKS Past Medical History: Past Medical History: Diagnosis Date Back pain Depression Gastritis GERD (gastroesophageal reflux disease) Hypothyroid Past Surgical History: Past Surgical History: Procedure Laterality Date BACK SURGERY 2018 CHOLECYSTECTOMY 1981 COLONOSCOPY 07/2018 EGD with biopsy COLONOSCOPY 07/2018 HYSTERECTOMY 2004 JOINT REPLACEMENT Left left hip KIDNEY SURGERY Right right kideny remove, due tto cancer NEPHRECTOMY Left THYROIDECTOMY, PARTIAL TOTAL ANKLE ARTHROPLASTY Right Admission Diagnosis: Patient Active Problem List Diagnosis Date Noted Inability to walk 07/18/2024 Fall at home, initial encounter 05/07/2021 Mixed incontinence 05/07/2021 Gastro-esophageal reflux disease without esophagitis 05/07/2021 Migraines 05/07/2021 Osteoporosis of lumbar spine 05/07/2021 Myalgia 05/07/2021 Urgency of urination 05/07/2021 Urge incontinence of urine 05/07/2021 Low back pain 05/07/2021 Other chronic pain 05/07/2021 Major depressive disorder, single episode, unspecified 05/07/2021 Atrophy of vagina 05/07/2021 Osteopenia of multiple sites 05/07/2021 Thyrotoxicosis, unspecified without thyrotoxic crisis or storm 05/07/2021 Spinal stenosis of lumbar region 05/07/2021 Anxiety associated with depression 05/07/2021 Adjustment disorder with mixed anxiety and depressed mood 05/07/2021 Postsurgical hypothyroidism 05/07/2021 Other bursitis of hip, right hip 05/07/2021 Stress incontinence in female 05/07/2021 Pain in right hip 05/07/2021 Diarrhea 04/21/2021 Gastroenteritis and colitis, viral 08/06/2018 Severe malnutrition (CMS/HCC) (HCC) 08/06/2018 Vitamin D deficiency 08/06/2018 Infection due to Norovirus species 08/06/2018 Medical Precautions: No active isolations Proper PPE donned/doffed in accordance with facility standards. Fall Risk: Reese Fall Risk Score: 75 (Medium Risk) Reese Fall Risk Score: 75 (High Risk) Precautions/Restrictions: Other Position/Activity Restriction: bed alarm Lines/Drains/Airways: PIV Family/Caregiver Present: none Overall Cognitive Status: Exceptions - Arousal/alertness: delayed responses to stimuli and maintains eyes closed thru most of eval but will open on command - Following commands: follows one step commands with increased time and follows one step commands with repetition - Safety judgement: decreased awareness of need for assistance - Insights: decreased awareness of deficits Overall Orientation Status: Oriented x4 Vision: Not Assessed Hearing: normal Social/Functional History Patient admitted from home. Lives With: cousin Type of Home: single family home Home Layout: Two Level Home and full bath on 1st, bed on 2nd. > 9 steps to enter with no rail. 6+7 steps to bed room with 1 rail. Home Access: Stairs to Enter without Rails (# of stairs: 9) Bathroom Shower/Tub: Tub/Shower Combo and seat Toilet: Standard Home Equipment: none Homemaking Responsibilities: Independent Receives Help From: None States her and cousin share home tasks and also notes her cousin is in good health and can assist as needed 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: Yes Prior Level of Function Prior Level of ADL Function: Independent Prior Level of Mobility: Independent; Device: None Prior Level of Transfers: Independent Objective Lower Extremity Assessment AROM: Impaired: bilat knee ext at EOB ~ 20 deg. Full knee ext noted supine in bed. L DF ~5 deg. Maintain bilat feet plantar flexed while supine and seated at EOB. PROM: Not assessed this session Strength: Lower Extremity Strength Right Left Hip Flexion 3 3 Hip Abduction Hip Extension Hip External Rotation (ER) Hip Internal Rotation (IR) Knee Extension 3- 3- Knee Flexion Ankle Dorsiflexion (DF) 3+ 3- Ankle Plantarflexion (PF) Inversion Eversion Sensation: Impaired: decreased light touch R LE Balance: Balance During Session: Posture: fair Sitting - Static: Supervision Sitting - Dynamic: Supervision Standing - Static: Contact Guard Standing - Dynamic: Contact Guard, Min Assist Bed Mobility: Supine to sit: Min Assist Sit to supine: Supervision Rolling to right: Min Assist Transfers Sit to stand: Contact Guard Stand to sit: Supervision, increased time needed to complete task Ambulation Ambulation 1 Assistive device(s) used: Front wheeled walker Assist level: Contact Guard, Min Assist Distance (ft): 20'x1 Quality of gait: reciprocal stepping, uneven step length, slow renetta, path deviations Outcome Measures AM-PAC How much HELP from another person do you currently need Turning from your back to your side while in a flat bed without using bedrails?: A Little Moving from lying on your back to sitting on the side of a flat bed without using bedrails?: A Little Moving to and from a bed to a chair (including a wheelchair)?: A Little Standing up from a chair using your arms (wheelchair or bedside chair)?: None Walking in a hospital room?: A Little Stair climbing assessed?: No AM-PAC Inpatient Mobility Raw Score (No Stairs) : 16 JH-HLM -HLM Score: Walked 10 steps or more (i.e. walked to restroom) Plan Pt would benefit from skilled acute PT services to address Strengthening, ROM, Gait Training, Balance Training, Self-Care/ADL Training, Functional Mobility Training, Endurance Training, Safety Education and Training, Stair Training, Pain Management, Equipment Evaluation/Education, and Patient/Caregiver Training. Frequency: 3x/week for 2 weeks Barriers: Limited participation Safety/Education Safety Safety Devices in place: call light within reach, left in bed, bed alarm in place, gait belt, and nurse notified Restraints: No Education Education Given To: patient Education Provided: PT Role, Gait Training, Plan of Care, Discharge Recommendations, and Benefits of Increasing Activity Education Method: Verbal Barriers to Learning: None Education Outcome: Verbalized Understanding and Continued Education Needed Goals Patient Stated Goal: stated she did not have any therapy goals at this time. Encounter Problems Encounter Problems (Active) Mobility Patient will ambulate 200 feet with modified independence and least restrictive device in order to improve safety and independence with mobility. Start: 07/19/24 Expected End: 08/02/24 Patient will ascend and descend 8 stairs with least restrictive device and min assist in order to safely negotiate home. Start: 07/19/24 Expected End: 08/02/24 Transfers Patient will perform bed mobility with modified independence in order to improve independence and prepare for out of bed mobility. Start: 07/19/24 Expected End: 08/02/24 Patient will complete sit to stand transfer with modified independence to LRD in order to improve safety and prepare for out of bed mobility. Start: 07/19/24 Expected End: 08/02/24 Therapy Time Individual Co-Treatment Co-Evaluation Time In 0912 Time Out 0933 Minutes 21 Muriel Lockwood PT Patient's Physical Therapy Plan of Care supervision is transferred to a [facility] Physical Therapist. Goals and/or treatment plan was established in collaboration with patient/family/other representatives. documented in this [facility]02-12-2025 Plan of care note* Care Plan - Ayse Junior LPN - 07/23/2024 10:53 AM EST Problem: Knowledge Deficit Goal: Patient/family/caregiver demonstrates understanding of disease process, treatment plan, medications, and discharge instructions Outcome: Progressing Problem: Urinary Incontinence Goal: Perineal skin integrity is maintained or improved Outcome: [facility]ing [id number] Plan of care note* Care Plan - Kavitha Lovett RN - 07/22/2024 6:36 PM EST Problem: Knowledge Deficit Goal: Patient/family/caregiver demonstrates understanding of disease process, treatment plan, medications, and discharge instructions 07/22/2024 183 by Kavitha Lovett RN Outcome: Progressing 07/22/2024 112 by Kavitha Lovett RN Outcome: Progressing Problem: Potential for Compromised Skin Integrity Goal: Skin Integrity is Maintained or Improved 07/22/20241835 by Kavitha Lovett RN Outcome: Progressing 07/22/2024 1125 by Kavitha Lovett RN Outcome: Progressing Goal: Nutritional status is improving 07/22/20241835 by Kavitha Lovett RN Outcome: Progressing 07/22/2024 1125 by Kavitha Lovett RN Outcome: Progressing Problem: Urinary Incontinence Goal: Perineal skin integrity is maintained or improved 07/22/20241835 by Kavitha Lovett RN Outcome: Progressing 07/22/2024 1125 by Kavitha Lovett RN Outcome: Progressing Problem: Potential for Falls Goal: I will remain free of falls 07/22/20241835 by Kavitha Lovett RN Outcome: Progressing 07/22/2024 1125 by Kavitha Lovett RN Outcome: Progressing Problem: Discharge Barriers Goal: My discharge needs are met 07/22/20241835 by Kavitha Lovett RN Outcome: Progressing 07/22/2024 112 by Kavitha Lovett RN Outcome: Progressing Problem: Problem Interventions Goal: Assess Nutritional Intake 07/22/20241835 by Kavitha Lovett RN Outcome: Progressing 07/22/2024 1125 by Kavitha Lovett RN Outcome: Progressing [facility]02-11-2025 Nurse Note* Tiffany Florence RN - 07/22/2024 2:24 PM EST Wound Care consulted for Pressure Injury Prevention. Pt's Wing score= 18 on 2 Pt's pressure points assessed. Pt's Heels, Buttocks/coccyx, Back, Elbows, Occiput and ears all intact. Pt turns well and moves well in the bed. Prevention Measures in place, including: Hannibal sheet with pillows/wedges, Heels elevated off bed on pillows, Zinc/Moisture Barrier ointment, Waffle chair cushion (obtain for pt once floor stock replenishes). Skin Care precaution order set in place. Dietitian consult in place. PT/OT consult in place. Will continue to follow pt. Please Voicera for any questions or concerns. Tiffany Florence RN [facility]02-11-2025 Nurse Note* Tiffany Florence RN - 07/22/2024 2:24 PM EST Wound Care consulted for Pressure Injury Prevention. Pt's Wing score= 18 on 2 Pt's pressure points assessed. Pt's Heels, Buttocks/coccyx, Back, Elbows, Occiput and ears all intact. Pt turns well and moves well in the bed. Prevention Measures in place, including: Hannibal sheet with pillows/wedges, Heels elevated off bed on pillows, Zinc/Moisture Barrier ointment, Waffle chair cushion (obtain for pt once floor stock replenishes). Skin Care precaution order set in place. Dietitian consult in place. PT/OT consult in place. Will continue to follow pt. Please Voicera for any questions or concerns. Tiffany Florence RN documented in this [facility]02-11-2025 Plan of care note* Care Plan - Kavitha Lovett RN - 07/22/2024 11:25 AM EST Problem: Knowledge Deficit Goal: Patient/family/caregiver demonstrates understanding of disease process, treatment plan, medications, and discharge instructions Outcome: Progressing Problem: Potential for Compromised Skin Integrity Goal: Skin Integrity is Maintained or Improved Outcome: Progressing Goal: Nutritional status is improving Outcome: Progressing Problem: Urinary Incontinence Goal: Perineal skin integrity is maintained or improved Outcome: Progressing Problem: Potential for Falls Goal: I will remain free of falls Outcome: Progressing Problem: Discharge Barriers Goal: My discharge needs are met Outcome: Progressing Problem: Problem Interventions Goal: Assess Nutritional Intake Outcome: Progressing [facility] [id number] Plan of care note* Care Plan - Salena Miller RN - 07/22/2024 4:19 AM EST Problem: Knowledge Deficit Goal: Patient/family/caregiver demonstrates understanding of disease process, treatment plan, medications, and discharge instructions Outcome: Progressing Problem: Potential for Compromised Skin Integrity Goal: Skin Integrity is Maintained or Improved Outcome: Progressing Goal: Nutritional status is improving Outcome: Progressing [facility] [id number] Note* Care Coordination - Darcy Zarate RN - 07/21/2024 12:03 PM EST Care Managment Initial Assessment Date: 07/21/2024 Patient Name: Kathryn Tamez : 1940 Patient Information Source of Information: Patient Cognition/Language: WFL - Within Functional Limits Permission given to speak with patient sales development representative/caregiver as indicated: Yes Confirmation of Payer with patient/family: Yes Payer Name: [employer] Medicare [place]: Confirmation of Primary Care Physician: Confirmed PCP Name: Dr. Leonardo Lyles Seen in last 2 years?: Yes Primary Caregiver: Self If assistance needed, confirmed caregiver ready, willing and able to care for patient at discharge: Confirmed with: Living Arrangements Current Residence: House Number of Floors 2 Number of Entry Steps: Bed/Bath Levels: Both second floor Facility: Facility Name: Plan to Return: Lives with: Extended family members Support Systems: Family members, Children Activities of Daily Living Ambulation: Independent Bathing/Dressing: Independent Elimination/Continence/Toileting: Independent Feeding: Independent Who Assists with Activities of Daily Living: Instrumental Activities of Daily Living Prescription Coverage: Yes [facility] Used[facility] Medication Management: Independent Transportation/Shopping: Independent Transportation Mode: Car Needs Assistance with Transportation at Discharge: No Meal Preparation: Independent Laundry/Cleaning: Independent Finances/Bill Paying: Independent Communication: Independent Types of Care Services/Equipment Utilized Care Services: Dialysis Type: NA Durable Medical Equipment: Cane, Walker, Bedside Commode, Shower Seat Patient's Goal/Discharge Plan Patient expects to be discharged to: home with cousin Discharge Planning Actions: No needs identified, Continue to follow Patient's Choice Rights and [employer] and Collaborative Relationships Disclosed as Indicated for Post-Acute Care: NA Interdisciplinary Team Engagement: Social Work Referral for: Additional Information: Met with patient, states cousin is living with her and is available 01/01. Admitted with back pain and inability to walk. ?PNA, on IV abx, ID following. +cdiff. Was to have back surgery per notes on 07/15 but needed to be cancelled due to insurance issues. OT rec home OT vs SNF depending on progress. Patient states only going home, does not even want HHC. Electronically signed by Darcy Zarate RN on07/21/2024 at 12:05 PM Darcy Zarate RN [facility] [id number] Note* Care Coordination - Darcy Zarate RN - 07/21/2024 12:03 PM EST Care Managment Initial Assessment Date: 07/21/2024 Patient Name: Kathryn Tamez : 1940 Patient Information Source of Information: Patient Cognition/Language: WFL - Within Functional Limits Permission given to speak with patient sales development representative/caregiver as indicated: Yes Confirmation of Payer with patient/family: Yes Payer Name: [employer] Medicare : Confirmation of Primary Care Physician: Confirmed PCP Name: Dr. Leonardo Lyles Seen in last 2 years?: Yes Primary Caregiver: Self If assistance needed, confirmed caregiver ready, willing and able to care for patient at discharge: Confirmed with: Living Arrangements Current Residence: House Number of Floors 2 Number of Entry Steps: Bed/Bath Levels: Both second floor Facility: Facility Name: Plan to Return: Lives with: Extended family members Support Systems: Family members, Children Activities of Daily Living Ambulation: Independent Bathing/Dressing: Independent Elimination/Continence/Toileting: Independent Feeding: Independent Who Assists with Activities of Daily Living: Instrumental Activities of Daily Living Prescription Coverage: Yes [facility] Medication Management: Independent Transportation/Shopping: Independent Transportation Mode: Car Needs Assistance with Transportation at Discharge: No Meal Preparation: Independent Laundry/Cleaning: Independent Finances/Bill Paying: Independent Communication: Independent Types of Care Services/Equipment Utilized Care Services: Dialysis Type: NA Durable Medical Equipment: Cane, Walker, Bedside Commode, Shower Seat Patient's Goal/Discharge Plan Patient expects to be discharged to: home with cousin Discharge Planning Actions: No needs identified, Continue to follow Patient's Choice Rights and [employer] and Collaborative Relationships Disclosed as Indicated for Post-Acute Care: NA Interdisciplinary Team Engagement: Social Work Referral for: Additional Information: Met with patient, states cousin is living with her and is available 01/01. Admitted with back pain and inability to walk. ?PNA, on IV abx, ID following. +cdiff. Was to have back surgery per notes on 07/15 but needed to be cancelled due to insurance issues. OT rec home OT vs SNF depending on progress. Patient states only going home, does not even want C. Electronically signed by Darcy Zarate RN on07/21/2024 at 12:05 PM Darcy Zarate RN [facility] [id number] Consult note* Roxanne Muñoz RD - 07/21/2024 9:39 AM EST Associated Order(s): IP CONSULT TO DIETITIAN Nutrition Assessment Type and Reason for Visit: Initial, Consult (Wing Sub Score <2) Nutrition Recommendations/Plan: Continue a Regular diet. Please document %PO intake in the flowsheets. Per MNT protocol, will trial Ensure Plus chocolate once daily and Ensure Clear apple once daily. Will monitor weights. Monitor weight, labs, I/Os, skin integrity and overall nutrition status. RD to follow up weekly. Malnutrition Assessment: Malnutrition Status: At risk for malnutrition (Comment) (Decreased appetite for unknown duration, acute on chronic diarrhea, +C-Diff) Context: Acute Illness Findings of the 6 clinical characteristics of malnutrition: Energy Intake: Mild decrease in energy intake (Comment) (Pt is a vague historian. Reports she has been eating less than normal but is unable to say for how long. The only %PO per flowsheets is 26-50%x 1 meal 07/19.) Weight Loss: Unable to assess (Pt reports UBW 120#. Bed weight 124.1# but ?accuracy, as her weight in the past 1-2 years per chart has been between 109-120#.) Body Fat Loss: No significant body fat loss (None visually observed) Muscle Mass Loss: Unable to assess Fluid Accumulation: No significant fluid accumulation Coil Maker Strength: Not Performed Nutrition Assessment: 84yo F with PMHx Hypothyroidism, GERD, Chronic Back Pain, Chronic Diarrhea, Neuropathy, Depression,Gastritis and Hx Nephrectomy d/t Cancer who presented with weakness and inability to ambulate. She was scheduled for lumbar spinal surgery on 07/15 but was canceled because of insurance approval. Around the same time, she has stopped taking all her pain medication. Daughter at bedside providing additional history stated that she has progressively gotten weak since Sunday, to the point where she isunable to walk. This morning she had fever, chills. Pt also reports abdominal pain, acute on chronic diarrhea, worsening back pain, urine incontinence. ED w/u showed T99.4F, BP 95/46, RR 22, WBC 32.1. CT spine showed mild spondylosis, diffuse osteopenia, GGOs in b/l lungs, possibly representing atypical infection. She was given IV CTX, azithromycin and admitted for sepsis 2/2 likely PNA. ID consulted and dc'd IV CTX, continue azithromycin through today (07/21). Pt still with diarrhea and no appetite, +imodium. Blood cx NGTD, PCR +C-Diff. On a Regular diet, ate 26-50% x 1 meal on 07/19 with no further PO documented. RD visited pt this AM. She c/o hip pain. She is a limited/vague historian--stated at home I eat when I want to. She reports eating less than normal recently but when asked for how long, she stated I don't know. States diarrhea has been ongoing for a long time. She does not drink ONS at home and is indifferent to receiving Ensure here. Agreeable to chocolate flavor. Observed oatmeal and banana at bedside, pt declines wanting assistance with setting up breakfast. She reports a UBW of 120#. RD obtained a bed weight of 124.1#, ?accuracy. Chart review of weights: 07/10/24 120#, 06/19/24 120#, 04/16/24 119# stated, 04/01/24 109#, 02/15/24 119#, 01/01/24 110#, 07/13/22 119#. Estimated Daily Nutrient Needs: Energy Requirements Based On: Kcal/kg Weight Used for Energy Requirements: [place] Weight for Energy Calculation (kg): 45 kg Total Energy Requirements (kcals/day): 25-30 kcal/kg = 9248-9242 kcal/day Weight Used for Protein Requirements: [place] Weight in Kg Used for Protein Requirements: 45 kg Estimated Total Protein (g/day): 0.9-1.1 g/kg = 40-50 g/day Estimated Daily Total Fluid (ml/day): per MD Nutrition Related Findings: Labs: Pot 3.3, Meds: Synthroid, IVF Orientation Level: Oriented to person, Oriented to place, Oriented to situation, Cognition: Followscommands, , Teeth: Missing teeth Feeding: Independent Room Service Room Service: Assist Wing Scale Score: 18. Wound Type: None Net IO Since Admission: 5,688.75 mL [07/21/24 0941] Gastrointestinal (WDL): Exceptions to WDL Last BM Date: 07/21/24, Stool Appearance: Watery, Stool Color: Brown, Black Oxygen Therapy: None (Room air), Current Nutrition Therapies: Adult diet Regular Current Oral Intake Average Meal Intake: 26-50%, Unable to assess (Limited %PO documented) Average Supplements Intake: None Ordered Anthropometric Measures: Height: 152.4 cm (5') Current Body Weight: 56.3 kg (124 lb 1.6 oz) (07/21 bed) Admission Body Weight: 54 kg (119 lb) (07/18 stated) Usual Body Weight: 54.4 kg (120 lb) (120# stated. Per chart: 07/10/24 120#, 06/19/24 120#, 04/16/24 119# stated, 04/01/24 109#, 02/15/24 119#, 01/01/24 110#, 07/13/22 119#) % Weight Change (Calculated): 3.4 [place] Body Weight (lbs) (Calculated): 100 lbs [place] Body Weight (Kg) (Calculated): 45 kg % [place] Body Weight (Calculated): 124.1 % BMI (kg/m2) (Calculated): 24.2 Weight Adjustment For: No Adjustment BMI Categories: Normal Weight (BMI 22.0 to 24.9) age over 65 Nutrition Diagnosis: Predicted inadequate energy intake related to altered GI function as evidenced by diarrhea Nutrition Interventions: Nutrition Education/Counseling: No recommendation at this time Coordination of Nutrition Care: Continue to monitor while inpatient Goals: Goals: PO intake 50% or greater, by next RD assessment Nutrition Monitoring and Evaluation: Behavioral-Environmental Outcomes: None Identified Food/Nutrient Intake Outcomes: Food and Nutrient Intake, Supplement Intake Physical Signs/Symptoms Outcomes: Biochemical Data, Nutrition Focused Physical Findings, Weight, Skin, Diarrhea, GI Status, Hemodynamic Status, Meal Time Behavior Discharge Planning: Too soon to determine Roxanne Muñoz RD Contact: *[phone] [facility] [id number] Consult note* Roxanne Muñoz RD - 07/21/2024 9:39 AM EST Associated Order(s): IP CONSULT TO DIETITIAN Nutrition Assessment Type and Reason for Visit: Initial, Consult (Wing Sub Score <2) Nutrition Recommendations/Plan: Continue a Regular diet. Please document %PO intake in the flowsheets. Per MNT protocol, will trial Ensure Plus chocolate once daily and Ensure Clear apple once daily. Will monitor weights. Monitor weight, labs, I/Os, skin integrity and overall nutrition status. RD to follow up weekly. Malnutrition Assessment: Malnutrition Status: At risk for malnutrition (Comment) (Decreased appetite for unknown duration, acute on chronic diarrhea, +C-Diff) Context: Acute Illness Findings of the 6 clinical characteristics of malnutrition: Energy Intake: Mild decrease in energy intake (Comment) (Pt is a vague historian. Reports she has been eating less than normal but is unable to say for how long. The only %PO per flowsheets is 26-50%x 1 meal 07/19.) Weight Loss: Unable to assess (Pt reports UBW 120#. Bed weight 124.1# but ?accuracy, as her weight in the past 1-2 years per chart has been between 109-120#.) Body Fat Loss: No significant body fat loss (None visually observed) Muscle Mass Loss: Unable to assess Fluid Accumulation: No significant fluid accumulation Coil Maker Strength: Not Performed Nutrition Assessment: 84yo F with PMHx Hypothyroidism, GERD, Chronic Back Pain, Chronic Diarrhea, Neuropathy, Depression,Gastritis and Hx Nephrectomy d/t Cancer who presented with weakness and inability to ambulate. She was scheduled for lumbar spinal surgery on 07/15 but was canceled because of insurance approval. Around the same time, she has stopped taking all her pain medication. Daughter at bedside providing additional history stated that she has progressively gotten weak since Sunday, to the point where she isunable to walk. This morning she had fever, chills. Pt also reports abdominal pain, acute on chronic diarrhea, worsening back pain, urine incontinence. ED w/u showed T99.4F, BP 95/46, RR 22, WBC 32.1. CT spine showed mild spondylosis, diffuse osteopenia, GGOs in b/l lungs, possibly representing atypical infection. She was given IV CTX, azithromycin and admitted for sepsis 2/ likely PNA. ID consulted and dc'd IV CTX, continue azithromycin through today (07/21). Pt still with diarrhea and no appetite, +imodium. Blood cx NGTD, PCR +C-Diff. On a Regular diet, ate 26-50% x 1 meal on 07/19 with no further PO documented. RD visited pt this AM. She c/o hip pain. She is a limited/vague historian--stated at home I eat when I want to. She reports eating less than normal recently but when asked for how long, she stated I don't know. States diarrhea has been ongoing for a long time. She does not drink ONS at home and is indifferent to receiving Ensure here. Agreeable to chocolate flavor. Observed oatmeal and banana at bedside, pt declines wanting assistance with setting up breakfast. She reports a UBW of 120#. RD obtained a bed weight of 124.1#, ?accuracy. Chart review of weights: 07/10/24 120#, 06/19/24 120#, 04/16/24 119# stated, 04/01/24 109#, 02/15/24 119#, 01/01/24 110#, 07/13/22 119#. Estimated Daily Nutrient Needs: Energy Requirements Based On: Kcal/kg Weight Used for Energy Requirements: [place] Weight for Energy Calculation (kg): 45 kg Total Energy Requirements (kcals/day): 25-30 kcal/kg = 5615-6570 kcal/day Weight Used for Protein Requirements: [place] Weight in Kg Used for Protein Requirements: 45 kg Estimated Total Protein (g/day): 0.9-1.1 g/kg = 40-50 g/day Estimated Daily Total Fluid (ml/day): per MD Nutrition Related Findings: Labs: Pot 3.3, Meds: Synthroid, IVF Orientation Level: Oriented to person, Oriented to place, Oriented to situation, Cognition: Followscommands, , Teeth: Missing teeth Feeding: Independent Room Service Room Service: Assist Wing Scale Score: 18. Wound Type: None Net IO Since Admission: 5,688.75 mL [07/21/24 0941] Gastrointestinal (WDL): Exceptions to WDL Last BM Date: 07/21/24, Stool Appearance: Watery, Stool Color: Brown, Black Oxygen Therapy: None (Room air), Current Nutrition Therapies: Adult diet Regular Current Oral Intake Average Meal Intake: 26-50%, Unable to assess (Limited %PO documented) Average Supplements Intake: None Ordered Anthropometric Measures: Height: 152.4 cm (5') Current Body Weight: 56.3 kg (124 lb 1.6 oz) (07/21 bed) Admission Body Weight: 54 kg (119 lb) (07/18 stated) Usual Body Weight: 54.4 kg (120 lb) (120# stated. Per chart: 07/10/24 120#, 06/19/24 120#, 04/16/24 119# stated, 04/01/24 109#, 02/15/24 119#, 01/01/24 110#, 07/13/22 119#) % Weight Change (Calculated): 3.4 [place] Body Weight (lbs) (Calculated): 100 lbs [place] Body Weight (Kg) (Calculated): 45 kg % [place] Body Weight (Calculated): 124.1 % BMI (kg/m2) (Calculated): 24.2 Weight Adjustment For: No Adjustment BMI Categories: Normal Weight (BMI 22.0 to 24.9) age over 65 Nutrition Diagnosis: Predicted inadequate energy intake related to altered GI function as evidenced by diarrhea Nutrition Interventions: Nutrition Education/Counseling: No recommendation at this time Coordination of Nutrition Care: Continue to monitor while inpatient Goals: Goals: PO intake 50% or greater, by next RD assessment Nutrition Monitoring and Evaluation: Behavioral-Environmental Outcomes: None Identified Food/Nutrient Intake Outcomes: Food and Nutrient Intake, Supplement Intake Physical Signs/Symptoms Outcomes: Biochemical Data, Nutrition Focused Physical Findings, Weight, Skin, Diarrhea, GI Status, Hemodynamic Status, Meal Time Behavior Discharge Planning: Too soon to determine Roxanne Muñoz RD Contact: [phone] * Waylon Steel DO - 07/19/2024 7:40 AM ESTAssociated Order(s): IP CONSULT TO INFECTIOUS DISEASES Images from the original note were not included. [facility] - Infectious Diseases Attending Consult Note Reason for Consult: PNA, sepsis History of Present Illness: Ms. Tamez is an 84 y/o F w/ PMH of chronic back pain, depression, GERD, hypothyroidism, hx of renal CA s/p nephrectomy. Presented to [facility] ED w/ weakness, back pain, urinary retention, HANKS. Initially scheduled for lumbar surgery 07/15; cancelled d/t insurance approval. Around the same time, she stopped taking pain medication. Pet pt's daughter, she had become progressively weak and couldn't walk. Developed F/C on date of presentation. Also endorsed abdominal pain, chronic diarrhea. ED w/u showed T99.4F, BP 95/46, RR 22, WBC 32.1. CT spine showed mild spondylosis, diffuse osteopenia, GGOs in b/l lungs, possibly representing atypical infection. She was given IV CTX, azithromycin.ID is consulted d/t sepsis, concern for PNA. During my assessment, patient reports that she is not feeling well. She reports ongoing fatigue, vague abdominal discomfort, and loose bowel movements over the past 3 weeks. She states that she has had an occasional dry cough, but denies any current cough, dyspnea, or increased sputum production. Appetite has been diminished. Still has ongoing low back pain. Denies fevers or chills. Patient History: Medical history: Chronic back pain, depression, GERD, hypothyroidism, hx of renal CA s/p nephrectomy Surgical history: Back surgery 2018, cholecystectomy 1980, hysterectomy 2004, R LORNA, R TAA, nephrectomy, partial thyroidectomy Family history: CA in father Social history: Former tobacco use Allergies: NKDA Code status: FULL Current Medications: Current Facility-Administered Medications Medication Dose Route Frequency Provider Last Rate Last Admin acetaminophen (Tylenol) tablet 650 mg 650 mg Oral q6h PRN Radha Kitchen MD Or acetaminophen (Tylenol) suppository 650 mg 650 mg Rectal q6h PRN Radha Kitchen MD acetaminophen (Tylenol) tablet 500 mg 500 mg Oral q6h PRN Radha Kitchen MD cefTRIAXone (Rocephin) 1 g in sodium chloride 0.9 % 50 mL IVPB Mini-Bag Plus 1 g IntraVENous q24h Radha Kitchen MD Stopped at 07/18/242099 And azithromycin (Zithromax) tablet 500 mg 500 mg Oral q24h Radha Kitchen MD 500 mg at 07/18/242119 enoxaparin (Lovenox) syringe 30 mg 30 mg SubCUTAneous Daily Radha Kitchen MD 30 mg at 07/18/242119 famotidine (Pepcid) tablet 20 mg 20 mg Oral Daily Radha Kitchen MD 20 mg at 07/18/242015 gabapentin (Neurontin) capsule 300 mg 300 mg Oral BID Radha Kitchen MD 300 mg at 07/18/242015 HYDROcodone-acetaminophen ([place]) 5-325 MG per tablet 2 tablet 2 tablet Oral q6h PRN Radha Kitchen MD 2 tablet at 07/19/24 0256 hydrOXYzine HCl (Atarax) tablet 10 mg 10 mg Oral q6h PRN Radha Kitchen MD levothyroxine (Synthroid, Levoxyl) tablet 88 mcg 88 mcg Oral q24h Radha Kitchen MD 88 mcg at 07/18/242015 naloxone (Narcan) injection 0.4 mg 0.4 mg IntraVENous q5 min PRN Radha Kitchen MD ondansetron ODT (Zofran-ODT) disintegrating tablet 4 mg 4 mg Oral q8h PRN Radha Kitchen MD Or ondansetron (Zofran) injection 4 mg 4 mg IntraVENous q6h PRN Radha Kicthen MD polyethylene glycol (PEG) 3350 (Miralax) packet 17 g 17 g Oral Daily PRN Radha Kitchen MD sertraline (Zoloft) tablet 200 mg 200 mg Oral Daily Radha Kitchen MD 200 mg at 07/18/242015 sodium chloride 0.9 % infusion 75 mL/hr IntraVENous Continuous Radha Kitchen MD 75 mL/hr at 07/18/242257 75 mL/hr at 07/18/242257 sodium chloride 0.9 % infusion 5-250 mL/hr IntraVENous PRN Radha Kitchen MD sodium chloride 0.9% (NS) flush 10 mL 10 mL IntraVENous 2 times per day Radha Kitchen MD 10 mL at07/18/242099 sodium chloride 0.9% (NS) flush 10 mL 10 mL IntraVENous PRN Radha Kitchen MD SUMAtriptan (Imitrex) tablet 100 mg 100 mg Oral Once PRN Radha Kitchen MD Review of Systems: Review of Systems Constitutional: Positive for appetite change and fatigue. Negative for chills, diaphoresis and fever. Respiratory: Negative for shortness of breath and wheezing. Cardiovascular: Negative for palpitations and leg swelling. Gastrointestinal: Positive for diarrhea. Negative for abdominal distention, abdominal pain, nausea and vomiting. Musculoskeletal: Negative for arthralgias, joint swelling and myalgias. Skin: Negative for color change, pallor, rash and wound. Vitals: Patient Vitals for the past 24 hrs: BP Temp Temp src Pulse Resp SpO2 Height Weight 07/19/24 0018 105/53 36.5 C (97.7 F) Temporal 67 18 95 % -- -- 07/18/24 2349 98/51 -- -- 64 18 98 % -- -- 07/18/24 2102 91/51 -- -- 65 22 95 % -- -- 07/18/24 1843 132/84 -- -- 94 20 100 % -- -- 07/18/24 1809 (!) 93/43 -- -- 88 18 94 % -- -- 07/18/24 1727 103/55 -- -- -- -- -- -- -- 07/18/24 1608 (!) 95/46 -- -- 82 22 95 % -- -- 07/18/24 1440 101/52 -- -- 79 20 94 % -- -- 07/18/24 1357 106/54 37.4 C (99.4 F) Oral 84 16 (!) 92 % 5' (1.524 m) 119 lb (54 kg) Physical Exam: Physical Exam Constitutional: General: She is not in acute distress. Appearance: Normal appearance. She is normal weight. She is ill-appearing. She is not toxic-appearing or diaphoretic. HENT: Head: Normocephalic and atraumatic. Nose: Nose normal. Mouth/Throat: Mouth: Mucous membranes are moist. Pharynx: Oropharynx is clear. No oropharyngeal exudate or posterior oropharyngeal erythema. Eyes: General: No scleral icterus. Extraocular Movements: Extraocular movements intact. Pupils: Pupils are equal, round, and reactive to light. Cardiovascular: Rate and Rhythm: Normal rate and regular rhythm. Pulses: Normal pulses. Heart sounds: Normal heart sounds. No murmur heard. No friction rub. No gallop. Pulmonary: Effort: No respiratory distress. Breath sounds: No wheezing, rhonchi or rales. Comments: +Diminished breath sounds b/l Abdominal: General: Abdomen is flat. Palpations: Abdomen is soft. Tenderness: There is abdominal tenderness. There is no guarding or rebound. Comments: +Vague abdominal discomfort Musculoskeletal: General: No swelling or deformity. Normal range of motion. Right lower leg: No edema. Left lower leg: No edema. Skin: General: Skin is warm and dry. Coloration: Skin is not pale. Findings: No erythema, lesion or rash. Neurological: Mental Status: She is alert. Motor: Weakness present. Comments: +Global weakness Psychiatric: Mood and Affect: Mood normal. Judgment: Judgment normal. Labs: Recent Labs 07/18/24 1446 07/18/24 1811 07/19/24 0303 NA 141 -- 141 K 4.0 -- 3.6 CL 107 -- 112* CO2 25 -- 25 BUN 19 -- 17 CREATININE 1.02 -- 0.88 GLUCOSE 154* -- 101 CALCIUM 8.8 -- 8.1* PROT 6.5 -- 5.8* BILITOT 0.4 -- 0.4 ALKPHOS 79 -- 64 AST 58* -- 37* ALT 44* -- 35* PROCAL -- 6.90* -- Recent Labs 07/18/24 1446 07/19/24 0303 WBC 32.1* 25.6* HGB 12.0 10.9* HCT 36.2 32.3* PLT 180 175 LYMPHOPCT 7* 13.8* MONOPCT 15* 20.5* BASOPCT -- 0.2 NEUTROABS -- 16.4* Micro: 07/18 Legionella/Streptococcus urine Ag pending 07/18 Blood CX x2 NGTD 07/18 SARS-CoV-2, Flu A/B, RSV Combo - 06/30 Urine CX + for E coli, >100k CFU/mL Lines/Drains/Airways: 07/18 RUE PIV 07/18 LIE PIV Radiography/Echo/Other: 07/18 CXR 2V Chronic obstructive pulmonary disease without acute abnormality 07/[address] evidence of an acute intracranial abnormality. Chronic microvascular ischemia 07/18 CT cervical/thoracic/lumbar spine Mild cervical spondylosis. No fracture or traumatic malalignment. Mild thoracic spondylosis. Diffuse osteopenia. Groundglass densities in the bilateral lungs may represent atypical infection. Mild lumbar spondylosis. No acute osseous abnormalities in the thoracic or lumbar spine. Antimicrobials,Start/End Dates: 07/18- azithromycin 07/18- CTX Hospital Summary: 84 y/o F w/ PMH of chronic back pain, depression, GERD, hypothyroidism. Presented to [facility] ED w/ weakness, back pain, urinary retention, HANKS. ED w/u showed T99.4F, BP 95/46, RR 22, WBC 32.1. CT spine showed mild spondylosis, diffuse osteopenia, GGOs in b/l lungs, possibly representing atypical infection. On IV CTX, azithromycin. ID consulted d/t sepsis, concern for PNA. Assessment: Acute, acute on chronic, unstable/uncontrolled chronic diagnoses: Pneumonia Leukocytosis Stable/chronic diagnoses: Neuropathy Chronic back pain Chronic diarrhea Depression GERD Hypothyroidism Hx of renal CA s/p nephrectomy Plan: Based on patient's current symptoms, low suspicion for pneumococcal or other typical bacterial PNA. She has had an occasional cough for the last couple of weeks. Recommend stopping IV CTX; continue azithromycin for 2 more days. Given ongoing loose stools, check for C diff PCR and GI panel. Thank you for the consult. The ID service will continue to follow. Total time 77 minutes on this day of encounter includes counseling, coordinating plan of care, record and documentation review before and after visit including documentation and time not explicitly included on EMR time stamp for accounting for open encounter. Waylon Steel DO, AAHIVS documented in this [facility]02-08-2025 Consult note* Waylon Steel DO - 07/19/2024 7:40 AM ESTAssociated Order(s): IP CONSULT TO INFECTIOUS DISEASES Images from the original note were not included. [facility] - Infectious Diseases Attending Consult Note Reason for Consult: PNA, sepsis History of Present Illness: Ms. Tamez is an 84 y/o F w/ PMH of chronic back pain, depression, GERD, hypothyroidism, hx of renal CA s/p nephrectomy. Presented to [facility] ED w/ weakness, back pain, urinary retention, HANKS. Initially scheduled for lumbar surgery 07/15; cancelled d/t insurance approval. Around the same time, she stopped taking pain medication. Pet pt's daughter, she had become progressively weak and couldn't walk. Developed F/C on date of presentation. Also endorsed abdominal pain, chronic diarrhea. ED w/u showed T99.4F, BP 95/46, RR 22, WBC 32.1. CT spine showed mild spondylosis, diffuse osteopenia, GGOs in b/l lungs, possibly representing atypical infection. She was given IV CTX, azithromycin.ID is consulted d/t sepsis, concern for PNA. During my assessment, patient reports that she is not feeling well. She reports ongoing fatigue, vague abdominal discomfort, and loose bowel movements over the past 3 weeks. She states that she has had an occasional dry cough, but denies any current cough, dyspnea, or increased sputum production. Appetite has been diminished. Still has ongoing low back pain. Denies fevers or chills. Patient History: Medical history: Chronic back pain, depression, GERD, hypothyroidism, hx of renal CA s/p nephrectomy Surgical history: Back surgery 2018, cholecystectomy 1981, hysterectomy 2004, R LORNA, R TAA, nephrectomy, partial thyroidectomy Family history: CA in father Social history: Former tobacco use Allergies: NKDA Code status: FULL Current Medications: Current Facility-Administered Medications Medication Dose Route Frequency Provider Last Rate Last Admin acetaminophen (Tylenol) tablet 650 mg 650 mg Oral q6h PRN Radha Kitchen MD Or acetaminophen (Tylenol) suppository 650 mg 650 mg Rectal q6h PRN Radha Kitchen MD acetaminophen (Tylenol) tablet 500 mg 500 mg Oral q6h PRN Radha Kitchen MD cefTRIAXone (Rocephin) 1 g in sodium chloride 0.9 % 50 mL IVPB Mini-Bag Plus 1 g IntraVENous q24h Radha Kitchen MD Stopped at 07/18/242099 And azithromycin (Zithromax) tablet 500 mg 500 mg Oral q24h Radha Kitchen MD 500 mg at 07/18/242119 enoxaparin (Lovenox) syringe 30 mg 30 mg SubCUTAneous Daily Radha Kitchen MD 30 mg at 07/18/242119 famotidine (Pepcid) tablet 20 mg 20 mg Oral Daily Radha Kitchen MD 20 mg at 07/18/242015 gabapentin (Neurontin) capsule 300 mg 300 mg Oral BID Radha Kitchen MD 300 mg at 07/18/242015 HYDROcodone-acetaminophen ([place]) 5-325 MG per tablet 2 tablet 2 tablet Oral q6h PRN Radha Kitchen MD 2 tablet at 07/19/24 0256 hydrOXYzine HCl (Atarax) tablet 10 mg 10 mg Oral q6h PRN Radha Kitchen MD levothyroxine (Synthroid, Levoxyl) tablet 88 mcg 88 mcg Oral q24h Radha Kitchen MD 88 mcg at 07/18/242015 naloxone (Narcan) injection 0.4 mg 0.4 mg IntraVENous q5 min PRN Radha Kitchen MD ondansetron ODT (Zofran-ODT) disintegrating tablet 4 mg 4 mg Oral q8h PRN Radha Kitchen MD Or ondansetron (Zofran) injection 4 mg 4 mg IntraVENous q6h PRN Radha Kitchen MD polyethylene glycol (PEG) 3350 (Miralax) packet 17 g 17 g Oral Daily PRN Radha Kitchen MD sertraline (Zoloft) tablet 200 mg 200 mg Oral Daily Radha Kitchen MD 200 mg at 07/18/242015 sodium chloride 0.9 % infusion 75 mL/hr IntraVENous Continuous Radha Kitchen MD 75 mL/hr at 07/18/242257 75 mL/hr at 07/18/242257 sodium chloride 0.9 % infusion 5-250 mL/hr IntraVENous PRN Radha Kitchen MD sodium chloride 0.9% (NS) flush 10 mL 10 mL IntraVENous 2 times per day Radha Kitchen MD 10 mL at07/18/24 2100 sodium chloride 0.9% (NS) flush 10 mL 10 mL IntraVENous PRN Radha Kitchen MD SUMAtriptan (Imitrex) tablet 100 mg 100 mg Oral Once PRN Radha Kitchen MD Review of Systems: Review of Systems Constitutional: Positive for appetite change and fatigue. Negative for chills, diaphoresis and fever. Respiratory: Negative for shortness of breath and wheezing. Cardiovascular: Negative for palpitations and leg swelling. Gastrointestinal: Positive for diarrhea. Negative for abdominal distention, abdominal pain, nausea and vomiting. Musculoskeletal: Negative for arthralgias, joint swelling and myalgias. Skin: Negative for color change, pallor, rash and wound. Vitals: Patient Vitals for the past 24 hrs: BP Temp Temp src Pulse Resp SpO2 Height Weight 07/19/24 0018 105/53 36.5 C (97.7 F) Temporal 67 18 95 % -- -- 07/18/24 2349 98/51 -- -- 64 18 98 % -- -- 07/18/24 2102 91/51 -- -- 65 22 95 % -- -- 07/18/24 1843 132/84 -- -- 94 20 100 % -- -- 07/18/24 1809 (!) 93/43 -- -- 88 18 94 % -- -- 07/18/24 1727 103/55 -- -- -- -- -- -- -- 07/18/24 1608 (!) 95/46 -- -- 82 22 95 % -- -- 07/18/24 1440 101/52 -- -- 79 20 94 % -- -- 07/18/24 1357 106/54 37.4 C (99.4 F) Oral 84 16 (!) 92 % 5' (1.524 m) 119 lb (54 kg) Physical Exam: Physical Exam Constitutional: General: She is not in acute distress. Appearance: Normal appearance. She is normal weight. She is ill-appearing. She is not toxic-appearing or diaphoretic. HENT: Head: Normocephalic and atraumatic. Nose: Nose normal. Mouth/Throat: Mouth: Mucous membranes are moist. Pharynx: Oropharynx is clear. No oropharyngeal exudate or posterior oropharyngeal erythema. Eyes: General: No scleral icterus. Extraocular Movements: Extraocular movements intact. Pupils: Pupils are equal, round, and reactive to light. Cardiovascular: Rate and Rhythm: Normal rate and regular rhythm. Pulses: Normal pulses. Heart sounds: Normal heart sounds. No murmur heard. No friction rub. No gallop. Pulmonary: Effort: No respiratory distress. Breath sounds: No wheezing, rhonchi or rales. Comments: +Diminished breath sounds b/l Abdominal: General: Abdomen is flat. Palpations: Abdomen is soft. Tenderness: There is abdominal tenderness. There is no guarding or rebound. Comments: +Vague abdominal discomfort Musculoskeletal: General: No swelling or deformity. Normal range of motion. Right lower leg: No edema. Left lower leg: No edema. Skin: General: Skin is warm and dry. Coloration: Skin is not pale. Findings: No erythema, lesion or rash. Neurological: Mental Status: She is alert. Motor: Weakness present. Comments: +Global weakness Psychiatric: Mood and Affect: Mood normal. Judgment: Judgment normal. Labs: Recent Labs 07/18/24 1446 07/18/24 1811 07/19/24 0303 NA 141 -- 141 K 4.0 -- 3.6 CL 107 -- 112* CO2 25 -- 25 BUN 19 -- 17 CREATININE 1.02 -- 0.88 GLUCOSE 154* -- 101 CALCIUM 8.8 -- 8.1* PROT 6.5 -- 5.8* BILITOT 0.4 -- 0.4 ALKPHOS 79 -- 64 AST 58* -- 37* ALT 44* -- 35* PROCAL -- 6.90* -- Recent Labs 07/18/24 1446 07/19/24 0303 WBC 32.1* 25.6* HGB 12.0 10.9* HCT 36.2 32.3* PLT 180 175 LYMPHOPCT 7* 13.8* MONOPCT 15* 20.5* BASOPCT -- 0.2 NEUTROABS -- 16.4* Micro: 07/18 Legionella/Streptococcus urine Ag pending 07/18 Blood CX x2 NGTD 07/18 SARS-CoV-2, Flu A/B, RSV Combo - 06/30 Urine CX + for E coli, >100k CFU/mL Lines/Drains/Airways: 07/18 RUE PIV 07/18 LIE PIV Radiography/Echo/Other: 07/18 CXR 2V Chronic obstructive pulmonary disease without acute abnormality 07/[address] evidence of an acute intracranial abnormality. Chronic microvascular ischemia 07/18 CT cervical/thoracic/lumbar spine Mild cervical spondylosis. No fracture or traumatic malalignment. Mild thoracic spondylosis. Diffuse osteopenia. Groundglass densities in the bilateral lungs may represent atypical infection. Mild lumbar spondylosis. No acute osseous abnormalities in the thoracic or lumbar spine. Antimicrobials,Start/End Dates: 07/18- azithromycin 07/18- CTX Hospital Summary: 84 y/o F w/ PMH of chronic back pain, depression, GERD, hypothyroidism. Presented to [facility] ED w/ weakness, back pain, urinary retention, HANKS. ED w/u showed T99.4F, BP 95/46, RR 22, WBC 32.1. CT spine showed mild spondylosis, diffuse osteopenia, GGOs in b/l lungs, possibly representing atypical infection. On IV CTX, azithromycin. ID consulted d/t sepsis, concern for PNA. Assessment: Acute, acute on chronic, unstable/uncontrolled chronic diagnoses: Pneumonia Leukocytosis Stable/chronic diagnoses: Neuropathy Chronic back pain Chronic diarrhea Depression GERD Hypothyroidism Hx of renal CA s/p nephrectomy Plan: Based on patient's current symptoms, low suspicion for pneumococcal or other typical bacterial PNA. She has had an occasional cough for the last couple of weeks. Recommend stopping IV CTX; continue azithromycin for 2 more days. Given ongoing loose stools, check for C diff PCR and GI panel. Thank you for the consult. The ID service will continue to follow. Total time 77 minutes on this day of encounter includes counseling, coordinating plan of care, record and documentation review before and after visit including documentation and time not explicitly included on EMR time stamp for accounting for open encounter. Waylon Steel DO, AAHIVS [employer] Work Phone: [phone] 621-679402-08-2025 Emergency department Note* NEGRITA Sutherland - 07/19/2024 12:06 AM EST Spoke with family and informed them that she is going to her room upstairs. [facility] [id number] Emergency department Note* NEGRITA Sutherland - 07/19/2024 12:06 AM EST Spoke with family and informed them that she is going to her room upstairs. * NEGRITA Peterson - 07/18/2024 11:51 PM EST Pt taken to [facility] to use restroom/bedpan and returned to [facility] * NEGRITA Peterson - 07/18/2024 11:44 PM EST Pts daughter called for update as to when pt would be getting moved into a room. I attempted to explain to daughter that we would be moving her into a room as soon as one came available. Daughter became more agitated and stated she's seen other pts come in after and were given rooms first. Another family member in the background began yelling obscenities and threatening to anjali the hospital if pt w asn't moved to a room soon. The daughter and other family member then began arguing and I hung up the phone. This has been reported to maddie Nicole RN. * NEGRITA Sutherland - 07/18/2024 8:55 PM EST Attempted to contact admitting provider about fluid orders via secured chat. No reply at this time. * NEGRITA Sutherland - 07/18/2024 8:20 PM EST Delay on medication due to RN that was assisting unable to further assist. Will continue to ask Rnsfor assistance until assistance achieved. * NEGRITA Sutherland - 07/18/2024 6:15 PM EST Vehicle Mechanic JONATHAN attempted to obtain blood cultures and was unsuccessful. Delay on orders due to this. * NEGRITA Sutherland - 07/18/2024 6:14 PM EST Dinner ordered in compliance with diet order previously placed. * NEGRITA Sutherland - 07/18/2024 4:32 PM EST Delay on LR 150/HR infusion due to pt frequently self occluding her vascular access delaying the initial 250/hr up to 500 infusion. * NEGRITA Sutherland - 07/18/2024 3:39 PM EST Report received from other global account executive. * Carolyn Chang RN - 07/18/2024 3:02 PM EST Lab called with WBC 32.1, same reported to Dr. Ballard via secure chat * Wade Tripathi DO - 07/18/2024 1:24 PM EST EMERGENCY DEPARTMENT ENCOUNTER Pt Name: Kathryn Tamez Birthdate 1940 Date of evaluation: 07/18/2024 ED Provider: Wade Tripathi DO Subjective: CHIEF COMPLAINT Chief Complaint Patient presents with Weakness, Gen Back Pain Pt arrived by EMS from home due to weakness / back pain. Report states ' pt is from home and complain of weakness / back pain / urine retention/ headache'. Upon assessment pt is a&ox msps intact - sob + pain -n/v - dizziness + weakness . Urinary Retention HISTORY OF PRESENT ILLNESS (Location/Symptom, Timing/Onset, Context/Setting, Quality, Duration, Modifying Factors, Severity) Note limiting factors. I wore appropriate PPE for the entirety of this encounter. HPI Kathryn Tamez is a 84 y.o. who presents to the emergency department chief complaint of weakness back pain headache and urinary retention. She has a history of urinary urgency/ incontinence, chronic back, hip pain, and spinal stenosis. Patient and her daughter, Hyun, report that she was scheduled to have lumbar spinal surgery on 07-15 but this was canceled because it was not approved by insurance. Around this time the patient stopped taking her home pain meds because she believed her doctor wanted her to do this. Since Sunday the patient has felt extremely weak and has progressed to thepoint where she has unable to walk or get up from her bed. Patient also reports a fall on 07-13. She does not remember any details from this fall. She is not able to say if she hit her head or lost consciousness. Patient also endorses anorexia and has reportedly eaten or drank very little in the last 3 days. Patient is reportedly usually independent at home does not require oxygen. Endorses urinary incontinence, bilateral radiculopathic pain in her lower extremities, lower extremity paresthesias and weakness denies saddle anesthesia Endorses fevers and chills at home, reportedly measured a 103 Fahrenheit fever at some point at home Endorses shortness of breath Endorses diarrhea and abdominal pain (chronic) Nursing Notes were reviewed. Limitations to history: Memory problems, pain Outside historians: The patient's daughter, Hyun REVIEW OF SYSTEMS Review of Systems Pertinent positives and negatives as per HPI. PAST MEDICAL HISTORY Past Medical History: Diagnosis Date Back pain Depression Gastritis GERD (gastroesophageal reflux disease) Hypothyroid SURGICAL HISTORY Past Surgical History: Procedure Laterality Date BACK SURGERY 2018 CHOLECYSTECTOMY 1981 COLONOSCOPY 07/2018 EGD with biopsy COLONOSCOPY 07/2018 HYSTERECTOMY 2004 JOINT REPLACEMENT Left left hip KIDNEY SURGERY Right right kideny remove, due tto cancer NEPHRECTOMY Left THYROIDECTOMY, PARTIAL TOTAL ANKLE ARTHROPLASTY Right CURRENT MEDICATIONS Previous Medications ACETAMINOPHEN (TYLENOL EXTRA STRENGTH) 500 MG TABLET Take 1 tablet by mouth every 6 hours as needed. BUPRENORPHINE (BUTRANS) 5 MCG/HR Place 1 patch on the skin 1 (one) time per week. FAMOTIDINE (PEPCID) 20 MG TABLET Take 20 mg by mouth twice a day. GABAPENTIN (NEURONTIN) 300 MG CAPSULE Take 300 mg by mouth 2 times daily. HYDROCODONE-ACETAMINOPHEN (VICODIN) 10-300 MG TABLET Take 1 tablet by mouth every 6 hours as needed. HYDROXYZINE HCL (ATARAX) 10 MG TABLET Take 10 mg by mouth every 6 hours as needed. SERTRALINE (ZOLOFT) 100 MG TABLET Take 200 mg by mouth daily. SUMATRIPTAN (IMITREX) 50 MG TABLET Take 100 mg by mouth Once as needed for migraine. SYNTHROID 88 MCG TABLET Take 88 mcg by mouth Every 24 hours. ALLERGIES Patient has no known allergies. FAMILY HISTORY Family History Problem Relation Name Age of Onset Liver cancer Neg Hx Stomach cancer Neg Hx Heart attack Mother Coronary artery disease Mother Colon cancer Neg Hx Stroke Mother Cancer Father unknow SOCIAL HISTORY Social History Socioeconomic History Marital status: Tobacco Use Smoking status: Some Days Current packs/day: 0.00 Average packs/day: 1 pack/day for 46.0 years (46.0 ttl pk-yrs) Types: Cigarettes Start date: 08/04/1970 Last attempt to quit: 08/04/2016 Years since quittin.9 Smokeless tobacco: Never Substance and Sexual Activity Alcohol use: Yes Comment: rarely Drug use: No SCREENINGS Objective: PHYSICAL EXAM ED Triage Vitals [07/18/24 1357] Temp Heart Rate Resp BP 37.4 C (99.4 F) 84 16 106/54 SpO2 Temp Source Heart Rate Source Patient Position (!) 92 % Oral Monitor Sitting BP Location FiO2 (%) Left arm -- Physical Exam Constitutional: General: She is not in acute distress. Appearance: She is ill-appearing. Comments: Alert, drowsy, moaning in pain HENT: Head: Normocephalic and atraumatic. Mouth/Throat: Mouth: Mucous membranes are dry. Cardiovascular: Rate and Rhythm: Normal rate and regular rhythm. Heart sounds: No murmur heard. No friction rub. No gallop. Pulmonary: Effort: Pulmonary effort is normal. Breath sounds: No wheezing, rhonchi or rales. Abdominal: Palpations: Abdomen is soft. Comments: Generalized tenderness to palpation. No rebound tenderness guarding Musculoskeletal: Right lower leg: No edema. Left lower leg: No edema. Comments: The patient has generalized tenderness to palpation at all points on her body that were attempted to be palpated. These include cervical and thoracic spine, proximal and distal lower extremities, all quadrants of her abdomen. Skin: General: Skin is dry. Coloration: Skin is not jaundiced or pale. Findings: No bruising. Neurological: Comments: Patient has motor and sensory function in her distal lower extremities DIAGNOSTIC RESULTS RADIOLOGY (Per Emergency Physician): Interpretation per the Radiologist below, if available at the time of this note: CT head wo IV contrast Final Result No CT evidence of an acute intracranial abnormality. Chronic microvascular ischemia Report Dictated on Electronically Signed By: Alonso Byrne MD Electronically Signed Date/Time: 07/18/2024 3:[address] cervical spine wo IV contrast Final Result Mild cervical spondylosis. No fracture or traumatic malalignment. Report Dictated on Electronically Signed By: Alonso Byrne MD Electronically Signed Date/Time: 07/18/2024 3:[address] lumbar spine wo IV contrast Final Result Mild lumbar spondylosis. No acute osseous abnormalities in the thoracic or lumbar spine. Report Dictated on Electronically Signed By: Alonso Byrne MD Electronically Signed Date/Time: 07/18/2024 3:[address] thoracic spine wo IV contrast Final Result Mild thoracic spondylosis. Diffuse osteopenia. Groundglass densities in the bilateral lungs may represent atypical infection. Report Dictated on Electronically Signed By: Alonso Byrne MD Electronically Signed Date/Time: 07/18/2024 3:48 PM EST SEP-1 CORE MEASURE DATA SIRS Criteria Sepsis Criteria Severe Sepsis Criteria Septic Shock Criteria Must meet 2: [] Temperature > 100.4 F (38 C) or < 96.8 F (36 C) [] HR > 90 [x] RR > 20 [x] WBC > 12 or < 4 or 10% bands Must be confirmed or suspected to move forward with diagnosis of sepsis. Must select at least one: [x] Bacterial Infection Confirmed or Suspected. [] Viral Infection Confirmed or Suspected. [] No infection present. Patient does not meet criteria for Sepsis. Must meet 1: [] Lactate > 2 or [] Signs of Organ Dysfunction: - SBP < 90 or MAP < 65 - Altered mental status - Creatinine > 2 or increased from baseline - Urine Output < 0.5 ml/kg/hr - Bilirubin > 2 - INR > 1.5 - Platelets < 100,000 - Acute Respiratory Failure as evidenced by new need for NIPPV or mechanical ventilation [] No criteria met for Severe Sepsis. Must meet 1: [] Lactate = or > 4 or [] SBP < 90 or MAP < 65 for at least two readings in the first hour after fluid bolus administration [] No criteria met for Septic Shock. No data found. Recent Labs 07/18/24 1446 WBC 32.1* CREATININE 1.02 BILITOT 0.4 PLT 180 Sepsis Identified at 1746 Fluid Resuscitation Rational: concern for fluid overload Infection Source: Pulmonary - Nosocomial Reassessment Exam: Not applicable. Patient does not have Septic Shock. Wade Tripathi, DO LABS: Labs Reviewed COMPREHENSIVE METABOLIC PANEL - Abnormal Result Value SODIUM 141 POTASSIUM 4.0 CHLORIDE 107 CARBON DIOXIDE 25 ANION GAP 9 UREA NITROGEN 19 CREATININE 1.02 GLUCOSE 154 (*) CALCIUM 8.8 AST (SGOT) 58 (*) ALT 44 (*) ALKALINE PHOSPHATASE 79 ALBUMIN 3.8 BILIRUBIN, TOTAL 0.4 TOTAL PROTEIN 6.5 eGFR 54.4 (*) CBC WITH AUTO DIFFERENTIAL - Abnormal Auto WBC 32.1 (*) RBC 4.20 Hemoglobin 12.0 Hematocrit 36.2 MCV 86.2 MCH 28.6 MCHC 33.1 RDW 13.9 Platelets 180 MPV 11.1 HIGH SENSITIVITY TROPONIN, SERIAL BASELINE - Abnormal Troponin HS Serial Baseline 18 (*) MANUAL DIFFERENTIAL (CELLAVISION) - Abnormal RBC Morphology Normal Neutrophils % 74 Bands % 5 (*) Lymphocytes % 7 (*) Monocytes % 15 (*) Absolute Neutrophil Count 25.4 (*) Bands Absolute 1.6 (*) Lymphocytes Absolute 2.2 Monocytes Absolute 4.8 (*) Neutrophils Manual 76 Lymphocytes Manual 7 Monocytes Manual 15 Eosinophils Manual Basophils Manual Bands Manual 5 Metamyelocytes Manual Myelocytes Manual Promyelocytes Manual Blasts Manual Atypical Lymphocytes Manual Unclassified Cells, Manual SARS-COV-2, FLU A/B, AND RSV COMBO - Normal SARS-CoV-2 Not Detected Respiratory Syncytial Virus Not Detected Influenza A Not Detected Influenza B Not Detected Narrative: Methodology: real-time, RT-PCR CK - Normal CK 37 SEDIMENTATION RATE, AUTOMATED - Normal Sed Rate 12 BLOOD CULTURE BLOOD CULTURE HIGH SENSITIVITY TROPONIN, SERIAL, SECOND TEST C-REACTIVE PROTEIN PATHOLOGY REVIEW LACTIC ACID WITH REFLEX All other labs were within normal range or not returned as of this dictation. EMERGENCY DEPARTMENT COURSE and DIFFERENTIAL DIAGNOSIS/MDM: Vitals: Vitals: 07/18/24 1357 07/18/24 1440 07/18/24 1608 07/18/24 1727 BP: 106/54 101/52 (!) 95/46 103/55 BP Location: Left arm Left arm Patient Position: Sitting Lying Lying Pulse: 84 79 82 Resp: 16 20 22 Temp: 37.4 C (99.4 F) TempSrc: Oral SpO2: (!) 92% 94% 95% Weight: 54 kg (119 lb) Height: 1.524 m (5') The patient presented with a chief complaint of weakness, back and generalized pain, anorexia. The differential diagnosis associated with this patient's presentation includes flu, COVID, RSV, opioid withdrawal, dehydration and acute renal failure, ACS, subdural hemorrhage. Our workup consisted of or dering/reviewing CT scans blood work x-rays. ED Course as of 07/18/242020Jul 18, [address] head reviewed. Per my personal interpretation there is no evidence of intracranial bleeding, mass, or fracture. [SC] 1611 Significant leukocytosis 32.1 [SC] 1611 Patient's troponin is elevated this may represent either a type I or type II NSTEMI. Only repeat troponin [SC] 1613 EKG reviewed. Per my personal interpretation there is no evidence of acute myocardial ischemiaor heart block. [SC] 1615 CT spine reviewed. There is no evidence of traumatic injury however there are groundglass opacities present in bilateral lungs per radiologist review. This may represent atypical pneumonia. [SC] ED Course User Index [SC] Wade Tripathi DO Diagnoses as of 07/18/242020 Chronic midline low back pain without sciatica Inability to walk Anorexia Myalgia Dehydration Chronic diarrhea Pneumonia due to infectious organism, unspecified laterality, unspecified part of lung Leukocytosis, unspecified type Severe sepsis (HCC) Fall, initial encounter The patient's presentation indicates likely multifactorial issues causing her recent decline in function and pain. I do believe she is experiencing opioid withdrawal and exacerbations of her known chronic medical problems. She appears to be dehydrated. Her kidney function and electrolyte status as well as glucose will need to be investigated. Imaging was obtained due to concern for new injuries following her fall last Sunday. Additionally there may be an infectious element such as a viral infection or bacterial pneumonia. She does not meet SIRS criteria. She was initially given fluids and her home pain medications while medical tests were conducted. External records reviewed: Home med list Diagnostics interpreted by me: EKG(s) Discussions with other clinicians: Hospitalist Chronic conditions impacting care: Chronic pain, spinal stenosis Social determinants of health affecting care: ED Medications managed: Medications buprenorphine (Butrans) 5 MCG/HR 5 mcg (has no administration in time range) gabapentin (Neurontin) capsule 300 mg (300 mg Oral Not Given 07/18/24 1430) lactated Ringer's infusion (has no administration in time range) azithromycin (Zithromax) 500 mg in sodium chloride 0.9 % 250 mL IVPB (ADD- [place]und[place]) (has no administration in time range) cefTRIAXone (Rocephin) 1,000 mg in sodium chloride 0.9 % 50 mL IVPB Mini-Bag Plus (has no administration in time range) lactated ringers bolus 500 mL (500 mL IntraVENous New Bag 07/18/24 1459) Prescription drugs considered: PROCEDURES: Unless otherwise noted below, none Procedures FINAL IMPRESSION 1. Inability to walk 2. Chronic midline low back pain without sciatica 3. Anorexia 4. Myalgia 5. Dehydration 6. Chronic diarrhea DISPOSITION Admit 07/18/2024 05:44:32 PM PATIENT REFERRED TO: No follow-up provider specified. DISCHARGE MEDICATIONS: New Prescriptions No medications on file (Comment: Please note this report has been produced using speech recognition software and may contain errors related to that system including errors in grammar, punctuation, and spelling, as well as words and phrases that may be inappropriate. If there are any questions or concerns please feel freeto contact the dictating provider for clarification.) Wade Tripathi DO (electronically signed) Emergency Medicine Provider Wade Tripathi DO Resident 07/18/24 1748 Cosigned by Marcell Ballard MD at 07/18/2024 8:02 PM EST * Marcell Ballard MD - 07/18/2024 1:24 PM EST Emergency Department Encounter EMERGENCY DEPARTMENT Patient: Kathryn Tamez : 1940 Date of Evaluation: 07/18/2024 ED Supervising Physician: Marcell Ballard MD I independently examined and evaluated Kathryn Tamez. This will serve as my Supervisory note and shared attestation. I did perform a substantive portion of the visit including all aspects of the Medical Decision Making. I wore appropriate PPE for the entirety of this encounter. In brief, Kathryn Tamez is a 84 y.o. that presents to the emergency department with fall, inability to walk, anorexia, generalized bodyaches, diffuse back pain Patient has chronic pain, chronic lumbar spinal stenosis, had back surgery in 2018. Ex-smoker. Doesnot drink. Family says she normally walks on her own but has been having more and more back pain recently. Patient was supposed to have an operation on her back on this past Sunday, but the family says that the operation was canceled for financial reasons. As part of the prep for the operation, the patient stopped all of her chronic pain medication that she takes for her back. She has not resumed the chronic pain medication since the surgery was canceled either, so she is now very uncomfortable and may actually be in a degree of narcotic withdrawal. She is complaining of diffuse body pain all over, diffuse myalgias, and is curled up in a ball on the bed crying. Family says that the patient has not had anything to eat or drink in several days, she has chronic diarrhea but this is unchanged. No nausea no vomiting no abdominal pain. She denies any chest pain or shortness of breath, but she does have subtle tachypnea noted on examination. She appears tired and dehydrated and depleted. Of note, in terms of neurological red flags, patient has chronic urinary retention which is unchanged, she has no saddle anesthesia, she has no radiculopathy. Her motor function in all 4 extremities remains intact. She has chronic numbness in her feet and legs, this is unchanged today. She has no numbness in bilateral hands. However, family also noted the patient fell on Sunday and this has not been evaluated by any clinician. It is difficult for the patient to tell us if she injured her head or her neck or her back during the fall because she has chronic back pain 01/01 and has pain all over right now. There is no laceration to suture. ED Triage Vitals [07/18/24 1357] Temp Heart Rate Resp BP 37.4 C (99.4 F) 84 16 106/54 SpO2 Temp Source Heart Rate Source Patient Position (!) 92 % Oral Monitor Sitting BP Location FiO2 (%) Left arm -- Focused exam: General: Elderly female lying on her side in bed, appears tired depleted. Curled up in a ball crying HENT: Head NCAT, EOMI with no erythema, swelling or discharge. Pupils 4 mm PERRL. No raccoon's eyes No Mora sign Face is stable No CSF rhinorrhea or otorrhea No epistaxis Oropharyngeal mucus membranes very dry, pink, no exudate Neck: Full ROM, supple, no rigidity Cardio: Heart rate in the upper 90s, normotensive, nl s1 s2 no m/r/g, extremities warm, dry, well perfused, non-edematous, 2+ bilateral radial pulses, 2+ bilateral DP pulses Lungs: Patient denies any dyspnea but she does have subtle tachypnea noted on exam, with bibasilar crackles noted on exam. Rare dry cough on exam. SaO2 92% on room air. No wheezes no rales. Abdomen: Soft, NT, ND, non-rigid, BS x 4 normal MSK: The entirety of the patient's cervical thoracic and lumbar spine is tender to palpation, no one area hurts more than any other. There are no obvious step- offs or bony deformities noted. 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 Diffusely diminished 3/5 strength in bilateral lower extremities with chronic unchanged numbness bilateral feet andlower legs Normal coordination in upper and lower extremities, though patient's ability to do [id number] and asmy-on-fhas testing is limited by pain Gait not tested, patient is too uncomfortable to stand up Slow speech, not slurred speech. Patient is not dysarthric No aphasia No facial droop No pronator drift Negative test of skew bilaterally Negative saddle anesthesia Normal rectal tone Negative bilateral lower extremity straight leg raise, patient complains of generalized body aches,not radiculopathy symptoms Brief ED course/MDM: 84-year-old female presents for inability to walk, fall several days ago, off of all of her chronic pain medication, Tuesdays back surgery was canceled MDM elements: The patient presented with chief complaint of see above. The differential diagnosis associated with this patient's presentation includes patient may be having pain all over secondary to being off of all of her chronic pain medication for several days, patient may have pain all over secondary to underlying infection such as pneumonia COVID-19 RSV influenza, patient may have pain all over following fall several days ago; it is honestly difficult for the patient to determine whether or not the pain in her cervical thoracic or lumbar spine is secondary to her fall or secondary to her chronic back pain. She appears dehydrated and miserable, family says patient has stopped eating but she has a completely benign abdominal examination so this makes bowelobstruction or colitis or diverticulitis less likely. Our workup consisted of ordering/reviewing: CT head CT cervical spine CT thoracic spine CT lumbar spine and chest x-ray given the subtle tachypnea and rhonchi noted on examination. Rehydration, restarting patient's missing buprenorphine patches and gabapentin medication, hospitalization given inability to walk. Diagnostic tests considered but not performed: I did consider the possibility of an MRI of the patient's spinal cord, but clinically her neurological examination (though not 100% normal for the average patient) is normal/chronic/steady state for her. The numbness in her feet and legs is chronic, the urinary retention is chronic, she has no lateralizing motor weakness and the arms and legs are equa lly weak in all 4 extremities, she has no saddle anesthesia and she has no radiculopathy. Thereforeno emergent MRI spinal cord is required To aid in management, I performed an independent interpretation of Xray(s) see below CT scan(s) see below EKG; see my interpretation elsewhere in the chart Blood work, see below. I also reviewed external records from past medical records in [facility] to obtain collateral history. I discussed their care with Supervisor [employer] . The patient will be Admitted. Patient is in agreement with this plan. Patient's care was impacted by chronic back pain, inability to walk, Tuesdays back surgery was canceled. SCREENINGS EKG: I read and interpreted this EKG. My interpretation can be found in the [employer] EKG system. EKG shows NSR, normal axis, normal OK QRS and QTC intervals, no STEMI, no SVT, no LVH. Low voltage. Previous EKG unchanged. Labs Reviewed COMPREHENSIVE METABOLIC PANEL - Abnormal Result Value SODIUM 141 POTASSIUM 4.0 CHLORIDE 107 CARBON DIOXIDE 25 ANION GAP 9 UREA NITROGEN 19 CREATININE 1.02 GLUCOSE 154 (*) CALCIUM 8.8 AST (SGOT) 58 (*) ALT 44 (*) ALKALINE PHOSPHATASE 79 ALBUMIN 3.8 BILIRUBIN, TOTAL 0.4 TOTAL PROTEIN 6.5 eGFR 54.4 (*) CBC WITH AUTO DIFFERENTIAL - Abnormal Auto WBC 32.1 (*) RBC 4.20 Hemoglobin 12.0 Hematocrit 36.2 MCV 86.2 MCH 28.6 MCHC 33.1 RDW 13.9 Platelets 180 MPV 11.1 HIGH SENSITIVITY TROPONIN, SERIAL BASELINE - Abnormal Troponin HS Serial Baseline 18 (*) HIGH SENSITIVITY TROPONIN, SERIAL, SECOND TEST - Abnormal 2h Troponin HS (Serial 2nd Troponin) 17 (*) MANUAL DIFFERENTIAL (CELLAVISION) - Abnormal RBC Morphology Normal Neutrophils % 74 Bands % 5 (*) Lymphocytes % 7 (*) Monocytes % 15 (*) Absolute Neutrophil Count 25.4 (*) Bands Absolute 1.6 (*) Lymphocytes Absolute 2.2 Monocytes Absolute 4.8 (*) Neutrophils Manual 76 Lymphocytes Manual 7 Monocytes Manual 15 Eosinophils Manual Basophils Manual Bands Manual 5 Metamyelocytes Manual Myelocytes Manual Promyelocytes Manual Blasts Manual Atypical Lymphocytes Manual Unclassified Cells, Manual C-REACTIVE PROTEIN - Abnormal C REACTIVE PROTEIN 28.0 (*) LACTIC ACID WITH REFLEX - Abnormal LACTIC ACID 2.9 (*) PROCALCITONIN TEST - Abnormal PROCALCITONIN 6.90 (*) Narrative: PCT <0.50 = Low risk of severe sepsis and/or septic shock. PCT >2.00 = High risk of severe sepsis and/or septic shock. SARS-COV-2, FLU A/B, AND RSV COMBO - Normal SARS-CoV-2 Not Detected Respiratory Syncytial Virus Not Detected Influenza A Not Detected Influenza B Not Detected Narrative: Methodology: real-time, RT-PCR CK - Normal CK 37 SEDIMENTATION RATE, AUTOMATED - Normal Sed Rate 12 BLOOD CULTURE BLOOD CULTURE PATHOLOGY REVIEW COMPLETE URINALYSIS WITH REFLEX TO CULTURE Narrative: The following orders were created for panel order Complete Urinalysis with reflex to Culture. Procedure Abnormality Status --------- ------ Complete Urinalysis[[id number]] Please view results for these tests on the individual orders. COMPLETE URINALYSIS CBC WITH AUTO DIFFERENTIAL COMPREHENSIVE METABOLIC PANEL LACTIC ACID WITH REFLEX XR chest 2 views Final Result Chronic obstructive pulmonary disease without acute abnormality Report Dictated on Electronically Signed By: Giovanni Irby MD Electronically Signed Date/Time: 07/18/2024 6:[address] head wo IV contrast Final Result No CT evidence of an acute intracranial abnormality. Chronic microvascular ischemia Report Dictated on Electronically Signed By: Alonso Byrne MD Electronically Signed Date/Time: 07/18/2024 3:[address] cervical spine wo IV contrast Final Result Mild cervical spondylosis. No fracture or traumatic malalignment. Report Dictated on Electronically Signed By: Alonso Byrne MD Electronically Signed Date/Time: 07/18/2024 3:[address] lumbar spine wo IV contrast Final Result Mild lumbar spondylosis. No acute osseous abnormalities in the thoracic or lumbar spine. Report Dictated on Electronically Signed By: Alonso Byrne MD Electronically Signed Date/Time: 07/18/2024 3:[address] thoracic spine wo IV contrast Final Result Mild thoracic spondylosis. Diffuse osteopenia. Groundglass densities in the bilateral lungs may represent atypical infection. Report Dictated on Electronically Signed By: Alonso Byrne MD Electronically Signed Date/Time: 07/18/2024 3:48 PM EST Metabolic panel shows no metabolic acidosis, good kidney function, glucose elevated 154 Mild transaminitis Alk phos unremarkable CK negative, argues against rhabdomyolysis HST #1 is elevated at 18, however HST #2 is slightly less elevated at 17 for a delta of -1 Lactic acidosis at 2.9 Procalcitonin 6.90, concerning for bacterial infection Significant leukocytosis at 30 2.1K. This coupled with the patient's subtle tachypnea and subtle tachycardia is concerning for sepsis Not anemic Normal platelet count ESR is negative but CRP is elevated at 28 COVID-[address] influenza all negative CT cervical spine shows mild cervical spondylosis. No fracture or traumatic malalignment. Interpreted by radiology and by me. CT head shows no evidence of acute intracranial abnormality. No mass next axial fluid collection nosignificant localized mass effect. No acute intracranial process no acute intracranial hemorrhage no skull fracture by my read. Interpreted by radiology and by me. CT lumbar spine shows mild lumbar spondylosis. No acute osseous abnormalities in the lumbar spine. No evidence of acute fracture. No aggressive osseous lesions. There is diffuse osteopenia. Laminectomy defect noted involving L4 and L5 levels. Sacrum and pelvis are normal, the presacral soft tissuesare normal. There is mild multilevel spondylosis without critical spinal canal or neural foraminal stenosis. Interpreted by radiology and by me. CT thoracic spine shows no fracture or subluxation or other malalignment. Facet joints are unremarkable. No bone lesion identified. Of note, groundglass densities are noted in bilateral lungs. Overall, mild thoracic spondylosis and diffuse osteopenia, but groundglass densities in bilateral lungs may represent atypical infection i.e. pneumonia. This may explain patient's leukocytosis and tachypneaand bibasilar crackles on examination. Therefore patient will be started on IV antibiotics on suspicion for sepsis. Interpreted by radiology and by me. Patient was medicated as above with IV antibiotics on suspicion for sepsis, which coupled with her dehydration and chronic body aches and missing all of her home pain medication may explain why she feels so poorly. As patient cannot walk, patient will need to be admitted to the hospital. Results ofworkup and plan of care were explained to patient's family and the patient herself by me. They indicated understanding and agreed to inpatient admission. All questions answered to their satisfaction. SEP-1 CORE MEASURE DATA SIRS Criteria Sepsis Criteria Severe Sepsis Criteria Septic Shock Criteria Must meet 2: [] Temperature > 100.4 F (38 C) or < 96.8 F (36 C) [x] HR > 90 [x] RR > 20 [x] WBC > 12 or < 4 or 10% bands Must be confirmed or suspected to move forward with diagnosis of sepsis. Must select at least one: [x] Bacterial Infection Confirmed or Suspected. [] Viral Infection Confirmed or Suspected. [] No infection present. Patient does not meet criteria for Sepsis. Must meet 1: [x] Lactate > 2 or [] Signs of Organ Dysfunction: - SBP < 90 or MAP < 65 - Altered mental status - Creatinine > 2 or increased from baseline - Urine Output < 0.5 ml/kg/hr - Bilirubin > 2 - INR > 1.5 - Platelets < 100,000 - Acute Respiratory Failure as evidenced by new need for NIPPV or mechanical ventilation [] No criteria met for Severe Sepsis. Must meet 1: [] Lactate = or > 4 or [] SBP < 90 or MAP < 65 for at least two readings in the first hour after fluid bolus administration [x] No criteria met for Septic Shock. No data found. Recent Labs 07/18/24 1446 07/18/24 1811 WBC 32.1* -- LACTATE -- 2.9* CREATININE 1.02 -- BILITOT 0.4 -- PLT 180 -- Sepsis Identified at [id number] Fluid Resuscitation Rationale: Patient does not have hypotension or lactic acid above 4.0. 30 mL/kgIV fluid resuscitation not indicated Infection Source: Pulmonary - Community Acquired Reassessment Exam: Not applicable. Patient does not have Septic Shock. Marcell Ballard MD On reassessment, patient is neurologically unchanged, normotensive, heart rate hovering in the upper 90s, SaO2 is 100%, she is not tachypneic she is not febrile she does not require noninvasive positive pressure ventilation or endotracheal intubation. She does not have septic shock. There is no indication for ICU admission at this time, however the patient needs to be admitted to the [facility], so hospitalist service was paged for admission. Disposition: Admitted Critical Care Attestation: The patient required critical care because the patient suffered severe sepsis. Critical care provided to the patient included: Lab review, multiple reassessments of patient, working with consultants,treating severe sepsis, updating and educating patient and family, documentation time. Critical care time does not include any procedures performed. I personally saw the patient and independently provided 45 minutes of non-concurrent critical care. 1. Severe sepsis (HCC) 2. Chronic midline low back pain without sciatica 3. Inability to walk 4. Anorexia 5. Myalgia 6. Dehydration 7. Chronic diarrhea 8. Pneumonia due to infectious organism, unspecified laterality, unspecified part of lung 9. Leukocytosis, unspecified type 10. Fall, initial encounter All diagnostic, treatment, and disposition decisions were made by myself in conjunction with the Resident. I also supervised medeiros portions of any procedures performed by the Resident. For all further details of the patient's emergency department visit, please see their documentation. (Comment: Please note this report has been produced using speech recognition software and may contain errors related to that system including errors in grammar, punctuation, and spelling, as well as words and phrases that may be inappropriate. If there are any questions or concerns please feel freeto contact the dictating provider for clarification.) Marcell Ballard MD [employer] Marcell Ballard MD 07/18/242030 documented in this [facility]02-07-2025 Emergency department Note* NEGRITA Peterson - 07/18/2024 11:51 PM EST Pt taken to [place] to use restroom/bedpan and returned to [facility] [place] [id number] Emergency department Note* NEGRITA Peterson - 07/18/2024 11:44 PM EST Pts daughter called for update as to when pt would be getting moved into a room. I attempted to explain to daughter that we would be moving her into a room as soon as one came available. Daughter became more agitated and stated she's seen other pts come in after and were given rooms first. Another family member in the background began yelling obscenities and threatening to anjali the hospital if pt wasn't moved to a room soon. The daughter and other family member then began arguing and I hung up the phone. This has been reported to Zoraida Rodriguez, dry charge process attendant. [address]07[address] Emergency department Note* NEGRITA Sutherland - 07/18/2024 8:55 PM EST Attempted to contact admitting provider about fluid orders via secured chat. No reply at this time. [place] [id number] Emergency department Note* NEGRITA Sutherland - 07/18/2024 8:20 PM EST Delay on medication due to RN that was assisting unable to further assist. Will continue to ask Rnsfor assistance until assistance achieved. [address] Emergency department Note* NEGRITA Sutherland - 07/18/2024 6:15 PM EST Vehicle Mechanic JONATHAN attempted to obtain blood cultures and was unsuccessful. Delay on orders due to this. [address]25 Emergency department Note* NEGRITA Sutherland - 07/18/2024 6:14 PM EST Dinner ordered in compliance with diet order previously placed[id number] History and physical note* Radha Kitchen MD - 07/18/2024 6:04 PM EST [facility] History and Physical Admit Date: 07/18/2024 PCP: Leonardo Lyles CHIEF COMPLAINT: History Obtained From: patient,EMR HISTORY OF PRESENT ILLNESS: Kathryn is a 84 y.o. female with past medical history of hypothyroidism, GERD, chronic back pain, depression, scheduled for lumbar spinal surgery on 07/15 but was canceled because of insurance approval. Around the same time, she has stopped taking all her pain medication. Daughter at bedside providingadditional history stated that, she has progressively gotten weak since Sunday, to the point whereshe is unable to walk. This morning she had fever, chills. Patient reports abdominal pain, chronic diarrhea, worsening back pain, urine incontinence, denies any cough. Work up in the ED Temp of 99.4 pulse 84, blood pressure dropped down to 95/46, respirations 22 at 1608 CBC-WBC 32.1 with left shift BMP-unremarkable Troponins-indeterminate elevated at 18 U/A- not obtained Respiratory viral panel negative EKG-normal sinus rhythm CT head no acute process, CT cervical spine no acute process CT lumbar spine showed mild lumbar spine spondylosis CT thoracic spine showed spondylosis. Groundglass densities in bilateral lung which represent atypical infection Patient was given IV Rocephin, Zithromax, and bolus of LR 500 cc. Blood cultures were not obtained when I was called. Requested ED resident obtain blood cultures and lactic acid Past Medical History: Past Medical History: Diagnosis Date Back pain Depression Gastritis GERD (gastroesophageal reflux disease) Hypothyroid Past Surgical History: Past Surgical History: Procedure Laterality Date BACK SURGERY 2018 CHOLECYSTECTOMY 1981 COLONOSCOPY 07/2018 EGD with biopsy COLONOSCOPY 07/2018 HYSTERECTOMY 2004 JOINT REPLACEMENT Left left hip KIDNEY SURGERY Right right kideny remove, due tto cancer NEPHRECTOMY Left THYROIDECTOMY, PARTIAL TOTAL ANKLE ARTHROPLASTY Right Social History: Social History Socioeconomic History Marital status: Spouse name: Not on file Number of children: Not on file Years of education: Not on file Highest education level: Not on file Occupational History Not on file Tobacco Use Smoking status: Some Days Current packs/day: 0.00 Average packs/day: 1 pack/day for 46.0 years (46.0 ttl pk-yrs) Types: Cigarettes Start date: 08/04/1970 Last attempt to quit: 08/04/2016 Years since quittin.9 Smokeless tobacco: Never Substance and Sexual Activity Alcohol use: Yes Comment: rarely Drug use: No Sexual activity: Not on file Comment: divorce Other Topics Concern Not on file Social History Narrative Not on file Social Drivers of Health Financial Resource Strain: Not on file Food Insecurity: Not on file Transportation Needs: Not on file Physical Activity: Not on file Stress: Not on file Social Connections: Not on file Intimate Partner Violence: Not on file Housing Stability: Not on file Family History: Family History Problem Relation Name Age of Onset Liver cancer Neg Hx Stomach cancer Neg Hx Heart attack Mother Coronary artery disease Mother Colon cancer Neg Hx Stroke Mother Cancer Father unknow Medications Prior to Admission: No current facility-administered medications on file prior to encounter. Current Outpatient Medications on File Prior to Encounter Medication Sig Dispense Refill acetaminophen (Tylenol Extra Strength) 500 MG tablet Take 1 tablet by mouth every 6 hours as needed. buprenorphine (Butrans) 5 MCG/HR Place 1 patch on the skin 1 (one) time per week. famotidine (Pepcid) 20 MG tablet Take 20 mg by mouth twice a day. gabapentin (Neurontin) 300 MG capsule Take 300 mg by mouth 2 times daily. HYDROcodone-acetaminophen (Vicodin) 10-300 MG tablet Take 1 tablet by mouth every 6 hours as needed. hydrOXYzine HCl (Atarax) 10 MG tablet Take 10 mg by mouth every 6 hours as needed. sertraline (Zoloft) 100 MG tablet Take 200 mg by mouth daily. SUMAtriptan (Imitrex) 50 MG tablet Take 100 mg by mouth Once as needed for migraine. Synthroid 88 MCG tablet Take 88 mcg by mouth Every 24 hours. Medication list reviewed Allergies: No Known Allergies REVIEW OF SYSTEMS: Other than Patient's chronic conditions and those complaints in the history above, the rest of the 10 systems review were done and were negative. Positive finding as documented in HPI Vitals: BP 103/55 Pulse 82 Temp 37.4 C (99.4 F) (Oral) Resp 22 Ht 5' (1.524 m) Wt 119 lb (54 kg) LMP (LMP Unknown) SpO2 95% BMI 23.24 kg/m BMI Classification: Normal Weight (BMI 18.5-24.9) Pulse Ox: SpO2 Av.7 % Min: 92 % Max: 95 % Supplemental O2: PHYSICAL EXAM: General appearance: No apparent distress, ill looking HEENT: Eyes: No scleral icterus,no pallor Oral: Tongue is semi-moist Cardiovascular: S1/S2 heard, RRR Respiratory: Clear to auscultation bilaterally Abdomen: Soft, non-tender, non-distended bowel sounds positive,no mass palpable Extremity: no peripheral edema Neurology:no focal neurological deficits,awake, alert DATA: BC: Recent Labs 07/18/24 1446 WBC 32.1* RBC 4.20 HGB 12.0 HCT 36.2 MCV 86.2 RDW 13.9 PLT 180 BMP: Recent Labs 07/18/24 1446 NA 141 K 4.0 CL 107 CO2 25 BUN 19 CREATININE 1.02 GLUCOSE 154* CALCIUM 8.8 ANIONGAP 9 LIVER PROFILE: Recent Labs 07/18/24 1446 AST 58* ALT 44* BILITOT 0.4 ALKPHOS 79 PROT 6.5 PT/INR: No results for input(s): PROTIME, INR in the last 72 hours. CARDIAC ENZYMES: No results for input(s): TROPONINI in the last 72 hours. Procalcitonin: No results found for: PROCAL Urine Culture: Results for orders placed or performed in visit on 06/30/24 Urine culture Collection Time: 06/30/24 2:34 PM Specimen: Urine, Clean Catch Result Value Ref Range Urine Culture >100,000 CFU/mL Escherichia coli (A) Susceptibility Escherichia coli - BROTH MICRODILUTION Amoxicillin / Clavulanate 8 Susceptible ug/ml Ampicillin >=32 Resistant ug/ml Ampicillin / Sulbactam 8 Susceptible ug/ml Aztreonam <=1 Susceptible ug/ml Cefazolin <=4 Susceptible ug/ml Cefepime <=1 Susceptible ug/ml Ceftriaxone <=1 Susceptible ug/ml Ciprofloxacin 0.5 Susceptible ug/ml Gentamicin <=1 Susceptible ug/ml Meropenem <=0.25 Susceptible ug/ml Nitrofurantoin <=16 Susceptible ug/ml Piperacillin / Tazobactam <=4 Susceptible ug/ml Trimethoprim / Sulfamethoxazole >=320 Resistant ug/ml COVID-19 PCR: No results for input(s): COVID19 in the last 72 hours. I reviewed: [x] laboratory results [x] radiographic results At the time of today's encounter. Pt was advised of the results. IMPRESSION: Discussed management with the ED provider and agree with hospitalization Acute, acute on chronic, unstable/uncontrolled chronic problems/diagnoses: Sepsis likely from pneumonia Atypical pneumonia Acute on chronic back pain Mild transaminitis likely from sepsis Stable chronic problems affecting care, new non-acute diagnoses: GERD Depression PLAN: Requested ED physician to obtain blood cultures, lactic acid follow-up IV hydration Started on IV Rocephin and Zithromax Check chest x-ray, urine analysis Consult ID Reviewed OARRS, patient has not been prescribed Butrans patch since March 2024, was only given hydrocodone 10/300. Will resume only hydrocodone at this time. Discussed with pharmacy team PT, OT Discussed CODE STATUS with patient and her daughter at bedside, confirmed full code DVT /GI prophylaxis Labs for AM ordered Patient was informed about all workup and treatment plan -see below for additional orders, further recommendations to follow Orders Placed This Encounter Procedures SARS-CoV-2, Flu A/B, and RSV Combo Blood culture Site #1 - Suspected Infection Blood culture Site #2 - Suspected Infection CT head wo IV contrast CT cervical spine wo IV contrast CT lumbar spine wo IV contrast CT thoracic spine wo IV contrast XR chest 2 views CK Comprehensive metabolic panel CBC auto differential Serial Troponin, High Sensitivity Troponin, High Sensitivity, Serial, Second Test MANUAL DIFFERENTIAL (CELLAVISION) Sedimentation rate, automated C-reactive protein Pathology Review Lactic acid with reflex CBC auto differential Procalcitonin Test Comprehensive metabolic panel Complete Urinalysis with reflex to Culture Complete Urinalysis Adult diet Regular Vital signs Activity Up With Assistance Vital Signs Notify patient's primary care provider of admission Daily weights Intake and output Full code Inpatient consult to Infectious Diseases--[facility] INFECTIOUS DISEASE; PNEUMONIA, SEPSIS OT eval and treat PT eval and treat Initiate Oxygen Therapy Protocol ECG 12 lead Admit to inpatient Code status: Full Code- NOTE: This report was transcribed using voice recognition software. Every effort was made to ensureaccuracy; however, inadvertent computerized yarn skeins examiner errors may be present. Radha Kitchen MD,MD Division of Hospitalist Medicine [employer] Please forward a copy of this H&P to the patient's PCP. Thank you. Electronically signed by Radha Kitchen MD at 6:04 PM [employer] Work Phone: [phone] [facility]02-07-2025 History and physical note* Radha Kitchen MD - 07/18/2024 6:04 PM EST [facility] [place] History and Physical Admit Date: 07/18/2024 PCP: Leonardo Lyles CHIEF COMPLAINT: History Obtained From: patient,EMR HISTORY OF PRESENT ILLNESS: Kathryn is a 84 y.o. female with past medical history of hypothyroidism, GERD, chronic back pain, depression, scheduled for lumbar spinal surgery on 07/15 but was canceled because of insurance approval. Around the same time, she has stopped taking all her pain medication. Daughter at bedside providingadditional history stated that, she has progressively gotten weak since Sunday, to the point whereshe is unable to walk. This morning she had fever, chills. Patient reports abdominal pain, chronic diarrhea, worsening back pain, urine incontinence, denies any cough. Work up in the ED Temp of 99.4 pulse 84, blood pressure dropped down to 95/46, respirations 22 at 1608 CBC-WBC 32.1 with left shift BMP-unremarkable Troponins-indeterminate elevated at 18 U/A- not obtained Respiratory viral panel negative EKG-normal sinus rhythm CT head no acute process, CT cervical spine no acute process CT lumbar spine showed mild lumbar spine spondylosis CT thoracic spine showed spondylosis. Groundglass densities in bilateral lung which represent atypical infection Patient was given IV Rocephin, Zithromax, and bolus of LR 500 cc. Blood cultures were not obtained when I was called. Requested ED resident obtain blood cultures and lactic acid Past Medical History: Past Medical History: Diagnosis Date Back pain Depression Gastritis GERD (gastroesophageal reflux disease) Hypothyroid Past Surgical History: Past Surgical History: Procedure Laterality Date BACK SURGERY 2018 CHOLECYSTECTOMY 1981 COLONOSCOPY 07/2018 EGD with biopsy COLONOSCOPY 07/2018 HYSTERECTOMY 2004 JOINT REPLACEMENT Left left hip KIDNEY SURGERY Right right kideny remove, due tto cancer NEPHRECTOMY Left THYROIDECTOMY, PARTIAL TOTAL ANKLE ARTHROPLASTY Right Social History: Social History Socioeconomic History Marital status: Spouse name: Not on file Number of children: Not on file Years of education: Not on file Highest education level: Not on file Occupational History Not on file Tobacco Use Smoking status: Some Days Current packs/day: 0.00 Average packs/day: 1 pack/day for 46.0 years (46.0 ttl pk-yrs) Types: Cigarettes Start date: 08/04/1970 Last attempt to quit: 08/04/2016 Years since quittin.9 Smokeless tobacco: Never Substance and Sexual Activity Alcohol use: Yes Comment: rarely Drug use: No Sexual activity: Not on file Comment: divorce Other Topics Concern Not on file Social History Narrative Not on file Social Drivers of Health Financial Resource Strain: Not on file Food Insecurity: Not on file Transportation Needs: Not on file Physical Activity: Not on file Stress: Not on file Social Connections: Not on file Intimate Partner Violence: Not on file Housing Stability: Not on file Family History: Family History Problem Relation Name Age of Onset Liver cancer Neg Hx Stomach cancer Neg Hx Heart attack Mother Coronary artery disease Mother Colon cancer Neg Hx Stroke Mother Cancer Father unknow Medications Prior to Admission: No current facility-administered medications on file prior to encounter. Current Outpatient Medications on File Prior to Encounter Medication Sig Dispense Refill acetaminophen (Tylenol Extra Strength) 500 MG tablet Take 1 tablet by mouth every 6 hours as needed. buprenorphine (Butrans) 5 MCG/HR Place 1 patch on the skin 1 (one) time per week. famotidine (Pepcid) 20 MG tablet Take 20 mg by mouth twice a day. gabapentin (Neurontin) 300 MG capsule Take 300 mg by mouth 2 times daily. HYDROcodone-acetaminophen (Vicodin) 10-300 MG tablet Take 1 tablet by mouth every 6 hours as needed. hydrOXYzine HCl (Atarax) 10 MG tablet Take 10 mg by mouth every 6 hours as needed. sertraline (Zoloft) 100 MG tablet Take 200 mg by mouth daily. SUMAtriptan (Imitrex) 50 MG tablet Take 100 mg by mouth Once as needed for migraine. Synthroid 88 MCG tablet Take 88 mcg by mouth Every 24 hours. Medication list reviewed Allergies: No Known Allergies REVIEW OF SYSTEMS: Other than Patient's chronic conditions and those complaints in the history above, the rest of the 10 systems review were done and were negative. Positive finding as documented in HPI Vitals: BP 103/55 Pulse 82 Temp 37.4 C (99.4 F) (Oral) Resp 22 Ht 5' (1.524 m) Wt 119 lb (54 kg) LMP (LMP Unknown) SpO2 95% BMI 23.24 kg/m BMI Classification: Normal Weight (BMI 18.5-24.9) Pulse Ox: SpO2 Av.7 % Min: 92 % Max: 95 % Supplemental O2: PHYSICAL EXAM: General appearance: No apparent distress, ill looking HEENT: Eyes: No scleral icterus,no pallor Oral: Tongue is semi-moist Cardiovascular: S1/S2 heard, RRR Respiratory: Clear to auscultation bilaterally Abdomen: Soft, non-tender, non-distended bowel sounds positive,no mass palpable Extremity: no peripheral edema Neurology:no focal neurological deficits,awake, alert DATA: BC: Recent Labs 07/18/24 1446 WBC 32.1* RBC 4.20 HGB 12.0 HCT 36.2 MCV 86.2 RDW 13.9 PLT 180 BMP: Recent Labs 07/18/24 1446 NA 141 K 4.0 CL 107 CO2 25 BUN 19 CREATININE 1.02 GLUCOSE 154* CALCIUM 8.8 ANIONGAP 9 LIVER PROFILE: Recent Labs 07/18/24 1446 AST 58* ALT 44* BILITOT 0.4 ALKPHOS 79 PROT 6.5 PT/INR: No results for input(s): PROTIME, INR in the last 72 hours. CARDIAC ENZYMES: No results for input(s): TROPONINI in the last 72 hours. Procalcitonin: No results found for: PROCAL Urine Culture: Results for orders placed or performed in visit on 06/30/24 Urine culture Collection Time: 06/30/24 2:34 PM Specimen: Urine, Clean Catch Result Value Ref Range Urine Culture >100,000 CFU/mL Escherichia coli (A) Susceptibility Escherichia coli - BROTH MICRODILUTION Amoxicillin / Clavulanate 8 Susceptible ug/ml Ampicillin >=32 Resistant ug/ml Ampicillin / Sulbactam 8 Susceptible ug/ml Aztreonam <=1 Susceptible ug/ml Cefazolin <=4 Susceptible ug/ml Cefepime <=1 Susceptible ug/ml Ceftriaxone <=1 Susceptible ug/ml Ciprofloxacin 0.5 Susceptible ug/ml Gentamicin <=1 Susceptible ug/ml Meropenem <=0.25 Susceptible ug/ml Nitrofurantoin <=16 Susceptible ug/ml Piperacillin / Tazobactam <=4 Susceptible ug/ml Trimethoprim / Sulfamethoxazole >=320 Resistant ug/ml COVID-19 PCR: No results for input(s): COVID19 in the last 72 hours. I reviewed: [x] laboratory results [x] radiographic results At the time of today's encounter. Pt was advised of the results. IMPRESSION: Discussed management with the ED provider and agree with hospitalization Acute, acute on chronic, unstable/uncontrolled chronic problems/diagnoses: Sepsis likely from pneumonia Atypical pneumonia Acute on chronic back pain Mild transaminitis likely from sepsis Stable chronic problems affecting care, new non-acute diagnoses: GERD Depression PLAN: Requested ED physician to obtain blood cultures, lactic acid follow-up IV hydration Started on IV Rocephin and Zithromax Check chest x-ray, urine analysis Consult ID Reviewed OARRS, patient has not been prescribed Butrans patch since March 2024, was only given hydrocodone 10/300. Will resume only hydrocodone at this time. Discussed with pharmacy team PT, OT Discussed CODE STATUS with patient and her daughter at bedside, confirmed full code DVT /GI prophylaxis Labs for AM ordered Patient was informed about all workup and treatment plan -see below for additional orders, further recommendations to follow Orders Placed This Encounter Procedures SARS-CoV-2, Flu A/B, and RSV Combo Blood culture Site #1 - Suspected Infection Blood culture Site #2 - Suspected Infection CT head wo IV contrast CT cervical spine wo IV contrast CT lumbar spine wo IV contrast CT thoracic spine wo IV contrast XR chest 2 views CK Comprehensive metabolic panel CBC auto differential Serial Troponin, High Sensitivity Troponin, High Sensitivity, Serial, Second Test MANUAL DIFFERENTIAL (CELLAVISION) Sedimentation rate, automated C-reactive protein Pathology Review Lactic acid with reflex CBC auto differential Procalcitonin Test Comprehensive metabolic panel Complete Urinalysis with reflex to Culture Complete Urinalysis Adult diet Regular Vital signs Activity Up With Assistance Vital Signs Notify patient's primary care provider of admission Daily weights Intake and output Full code Inpatient consult to Infectious Diseases--[facility] INFECTIOUS DISEASE; PNEUMONIA, SEPSIS OT eval and treat PT eval and treat Initiate Oxygen Therapy Protocol ECG 12 lead Admit to inpatient Code status: Full Code- NOTE: This report was transcribed using voice recognition software. Every effort was made to ensureaccuracy; however, inadvertent computerized yarn skeins examiner errors may be present. Radha Kitchen MD,MD Division of Hospitalist Medicine [facility] Please forward a copy of this H&P to the patient's PCP. Thank you. Electronically signed by Radha Kitchen MD at 6:04 PM documented in this [facility]02-07-2025 Emergency department Note* NEGRITA Sutherland - 07/18/2024 4:32 PM EST Delay on LR 150/HR infusion due to pt frequently self occluding her vascular access delaying the initial 250/hr up to [address]07-[address]25 Emergency department Note* NEGRITA Sutherland - 07/18/2024 3:39 PM EST Report received from other global account executive. [address]07-[address]25 Emergency department Note* Carolyn Chang RN - 07/18/2024 3:02 PM EST Lab called with WBC 32.1, same reported to Dr. Ballard via secure chat [address]07-[address]25 Physician Emergency department Note* Wade Tripathi DO - 07/18/2024 1:24 PM EST EMERGENCY DEPARTMENT ENCOUNTER Pt Name: Katrhyn Tamez Birthdate 1940 Date of evaluation: 07/18/2024 ED Provider: Wade D Deuce, DO Subjective: CHIEF COMPLAINT Chief Complaint Patient presents with Weakness, Gen Back Pain Pt arrived by EMS from home due to weakness / back pain. Report states ' pt is from home and complain of weakness / back pain / urine retention/ headache'. Upon assessment pt is a&ox msps intact - sob + pain -n/v - dizziness + weakness . Urinary Retention HISTORY OF PRESENT ILLNESS (Location/Symptom, Timing/Onset, Context/Setting, Quality, Duration, Modifying Factors, Severity) Note limiting factors. I wore appropriate PPE for the entirety of this encounter. HPI Kathryn Tamez is a 84 y.o. who presents to the emergency department chief complaint of weakness back pain headache and urinary retention. She has a history of urinary urgency/ incontinence, chronic back, hip pain, and spinal stenosis. Patient and her daughter, Hyun, report that she was scheduled to have lumbar spinal surgery on 07-15 but this was canceled because it was not approved by insurance. Around this time the patient stopped taking her home pain meds because she believed her doctor wanted her to do this. Since Sunday the patient has felt extremely weak and has progressed to thepoint where she has unable to walk or get up from her bed. Patient also reports a fall on 07-13. She does not remember any details from this fall. She is not able to say if she hit her head or lost consciousness. Patient also endorses anorexia and has reportedly eaten or drank very little in the last 3 days. Patient is reportedly usually independent at home does not require oxygen. Endorses urinary incontinence, bilateral radiculopathic pain in her lower extremities, lower extremity paresthesias and weakness denies saddle anesthesia Endorses fevers and chills at home, reportedly measured a 103 Fahrenheit fever at some point at home Endorses shortness of breath Endorses diarrhea and abdominal pain (chronic) Nursing Notes were reviewed. Limitations to history: Memory problems, pain Outside historians: The patient's daughterHyun REVIEW OF SYSTEMS Review of Systems Pertinent positives and negatives as per HPI. PAST MEDICAL HISTORY Past Medical History: Diagnosis Date Back pain Depression Gastritis GERD (gastroesophageal reflux disease) Hypothyroid SURGICAL HISTORY Past Surgical History: Procedure Laterality Date BACK SURGERY 2018 CHOLECYSTECTOMY 1981 COLONOSCOPY 07/2018 EGD with biopsy COLONOSCOPY 07/2018 HYSTERECTOMY 2004 JOINT REPLACEMENT Left left hip KIDNEY SURGERY Right right kideny remove, due tto cancer NEPHRECTOMY Left THYROIDECTOMY, PARTIAL TOTAL ANKLE ARTHROPLASTY Right CURRENT MEDICATIONS Previous Medications ACETAMINOPHEN (TYLENOL EXTRA STRENGTH) 500 MG TABLET Take 1 tablet by mouth every 6 hours as needed. BUPRENORPHINE (BUTRANS) 5 MCG/HR Place 1 patch on the skin 1 (one) time per week. FAMOTIDINE (PEPCID) 20 MG TABLET Take 20 mg by mouth twice a day. GABAPENTIN (NEURONTIN) 300 MG CAPSULE Take 300 mg by mouth 2 times daily. HYDROCODONE-ACETAMINOPHEN (VICODIN) 10-300 MG TABLET Take 1 tablet by mouth every 6 hours as needed. HYDROXYZINE HCL (ATARAX) 10 MG TABLET Take 10 mg by mouth every 6 hours as needed. SERTRALINE (ZOLOFT) 100 MG TABLET Take 200 mg by mouth daily. SUMATRIPTAN (IMITREX) 50 MG TABLET Take 100 mg by mouth Once as needed for migraine. SYNTHROID 88 MCG TABLET Take 88 mcg by mouth Every 24 hours. ALLERGIES Patient has no known allergies. FAMILY HISTORY Family History Problem Relation Name Age of Onset Liver cancer Neg Hx Stomach cancer Neg Hx Heart attack Mother Coronary artery disease Mother Colon cancer Neg Hx Stroke Mother Cancer Father unknow SOCIAL HISTORY Social History Socioeconomic History Marital status: Tobacco Use Smoking status: Some Days Current packs/day: 0.00 Average packs/day: 1 pack/day for 46.0 years (46.0 ttl pk-yrs) Types: Cigarettes Start date: 08/04/1970 Last attempt to quit: 08/04/2016 Years since quittin.9 Smokeless tobacco: Never Substance and Sexual Activity Alcohol use: Yes Comment: rarely Drug use: No SCREENINGS Objective: PHYSICAL EXAM ED Triage Vitals [07/18/24 1357] Temp Heart Rate Resp BP 37.4 C (99.4 F) 84 16 106/54 SpO2 Temp Source Heart Rate Source Patient Position (!) 92 % Oral Monitor Sitting BP Location FiO2 (%) Left arm -- Physical Exam Constitutional: General: She is not in acute distress. Appearance: She is ill-appearing. Comments: Alert, drowsy, moaning in pain HENT: Head: Normocephalic and atraumatic. Mouth/Throat: Mouth: Mucous membranes are dry. Cardiovascular: Rate and Rhythm: Normal rate and regular rhythm. Heart sounds: No murmur heard. No friction rub. No gallop. Pulmonary: Effort: Pulmonary effort is normal. Breath sounds: No wheezing, rhonchi or rales. Abdominal: Palpations: Abdomen is soft. Comments: Generalized tenderness to palpation. No rebound tenderness guarding Musculoskeletal: Right lower leg: No edema. Left lower leg: No edema. Comments: The patient has generalized tenderness to palpation at all points on her body that were attempted to be palpated. These include cervical and thoracic spine, proximal and distal lower extremities, all quadrants of her abdomen. Skin: General: Skin is dry. Coloration: Skin is not jaundiced or pale. Findings: No bruising. Neurological: Comments: Patient has motor and sensory function in her distal lower extremities DIAGNOSTIC RESULTS RADIOLOGY (Per Emergency Physician): Interpretation per the Radiologist below, if available at the time of this note: CT head wo IV contrast Final Result No CT evidence of an acute intracranial abnormality. Chronic microvascular ischemia Report Dictated on Electronically Signed By: Alonso Byrne MD Electronically Signed Date/Time: 07/18/2024 3:[address] cervical spine wo IV contrast Final Result Mild cervical spondylosis. No fracture or traumatic malalignment. Report Dictated on Electronically Signed By: Alonso Byrne MD Electronically Signed Date/Time: 07/18/2024 3:[address] lumbar spine wo IV contrast Final Result Mild lumbar spondylosis. No acute osseous abnormalities in the thoracic or lumbar spine. Report Dictated on Electronically Signed By: Alonso Byrne MD Electronically Signed Date/Time: 07/18/2024 3:[address] thoracic spine wo IV contrast Final Result Mild thoracic spondylosis. Diffuse osteopenia. Groundglass densities in the bilateral lungs may represent atypical infection. Report Dictated on Electronically Signed By: Alonso Byrne MD Electronically Signed Date/Time: 07/18/2024 3:48 PM EST SEP-1 CORE MEASURE DATA SIRS Criteria Sepsis Criteria Severe Sepsis Criteria Septic Shock Criteria Must meet 2: [] Temperature > 100.4 F (38 C) or < 96.8 F (36 C) [] HR > 90 [x] RR > 20 [x] WBC > 12 or < 4 or 10% bands Must be confirmed or suspected to move forward with diagnosis of sepsis. Must select at least one: [x] Bacterial Infection Confirmed or Suspected. [] Viral Infection Confirmed or Suspected. [] No infection present. Patient does not meet criteria for Sepsis. Must meet 1: [] Lactate > 2 or [] Signs of Organ Dysfunction: - SBP < 90 or MAP < 65 - Altered mental status - Creatinine > 2 or increased from baseline - Urine Output < 0.5 ml/kg/hr - Bilirubin > 2 - INR > 1.5 - Platelets < 100,000 - Acute Respiratory Failure as evidenced by new need for NIPPV or mechanical ventilation [] No criteria met for Severe Sepsis. Must meet 1: [] Lactate = or > 4 or [] SBP < 90 or MAP < 65 for at least two readings in the first hour after fluid bolus administration [] No criteria met for Septic Shock. No data found. Recent Labs 07/18/24 1446 WBC 32.1* CREATININE 1.02 BILITOT 0.4 PLT 180 Sepsis Identified at 1746 Fluid Resuscitation Rational: concern for fluid overload Infection Source: Pulmonary - Nosocomial Reassessment Exam: Not applicable. Patient does not have Septic Shock. Wade Tripathi, DO LABS: Labs Reviewed COMPREHENSIVE METABOLIC PANEL - Abnormal Result Value SODIUM 141 POTASSIUM 4.0 CHLORIDE 107 CARBON DIOXIDE 25 ANION GAP 9 UREA NITROGEN 19 CREATININE 1.02 GLUCOSE 154 (*) CALCIUM 8.8 AST (SGOT) 58 (*) ALT 44 (*) ALKALINE PHOSPHATASE 79 ALBUMIN 3.8 BILIRUBIN, TOTAL 0.4 TOTAL PROTEIN 6.5 eGFR 54.4 (*) CBC WITH AUTO DIFFERENTIAL - Abnormal Auto WBC 32.1 (*) RBC 4.20 Hemoglobin 12.0 Hematocrit 36.2 MCV 86.2 MCH 28.6 MCHC 33.1 RDW 13.9 Platelets 180 MPV 11.1 HIGH SENSITIVITY TROPONIN, SERIAL BASELINE - Abnormal Troponin HS Serial Baseline 18 (*) MANUAL DIFFERENTIAL (CELLAVISION) - Abnormal RBC Morphology Normal Neutrophils % 74 Bands % 5 (*) Lymphocytes % 7 (*) Monocytes % 15 (*) Absolute Neutrophil Count 25.4 (*) Bands Absolute 1.6 (*) Lymphocytes Absolute 2.2 Monocytes Absolute 4.8 (*) Neutrophils Manual 76 Lymphocytes Manual 7 Monocytes Manual 15 Eosinophils Manual Basophils Manual Bands Manual 5 Metamyelocytes Manual Myelocytes Manual Promyelocytes Manual Blasts Manual Atypical Lymphocytes Manual Unclassified Cells, Manual SARS-COV-2, FLU A/B, AND RSV COMBO - Normal SARS-CoV-2 Not Detected Respiratory Syncytial Virus Not Detected Influenza A Not Detected Influenza B Not Detected Narrative: Methodology: real-time, RT-PCR CK - Normal CK 37 SEDIMENTATION RATE, AUTOMATED - Normal Sed Rate 12 BLOOD CULTURE BLOOD CULTURE HIGH SENSITIVITY TROPONIN, SERIAL, SECOND TEST C-REACTIVE PROTEIN PATHOLOGY REVIEW LACTIC ACID WITH REFLEX All other labs were within normal range or not returned as of this dictation. EMERGENCY DEPARTMENT COURSE and DIFFERENTIAL DIAGNOSIS/MDM: Vitals: Vitals: 07/18/24 1357 07/18/24 1440 07/18/24 1608 07/18/24 1727 BP: 106/54 101/52 (!) 95/46 103/55 BP Location: Left arm Left arm Patient Position: Sitting Lying Lying Pulse: 84 79 82 Resp: 16 20 22 Temp: 37.4 C (99.4 F) TempSrc: Oral SpO2: (!) 92% 94% 95% Weight: 54 kg (119 lb) Height: 1.524 m (5') The patient presented with a chief complaint of weakness, back and generalized pain, anorexia. The differential diagnosis associated with this patient's presentation includes flu, COVID, RSV, opioid withdrawal, dehydration and acute renal failure, ACS, subdural hemorrhage. Our workup consisted of or dering/reviewing CT scans blood work x-rays. ED Course as of 07/18/242020Jul 18, [address] head reviewed. Per my personal interpretation there is no evidence of intracranial bleeding, mass, or fracture. [SC] 1611 Significant leukocytosis 32.1 [SC] 1611 Patient's troponin is elevated this may represent either a type I or type II NSTEMI. Only repeat troponin [SC] 1613 EKG reviewed. Per my personal interpretation there is no evidence of acute myocardial ischemiaor heart block. [SC] 1615 CT spine reviewed. There is no evidence of traumatic injury however there are groundglass opacities present in bilateral lungs per radiologist review. This may represent atypical pneumonia. [SC] ED Course User Index [SC] Wade Tripathi DO Diagnoses as of 07/18/242020 Chronic midline low back pain without sciatica Inability to walk Anorexia Myalgia Dehydration Chronic diarrhea Pneumonia due to infectious organism, unspecified laterality, unspecified part of lung Leukocytosis, unspecified type Severe sepsis (HCC) Fall, initial encounter The patient's presentation indicates likely multifactorial issues causing her recent decline in function and pain. I do believe she is experiencing opioid withdrawal and exacerbations of her known chronic medical problems. She appears to be dehydrated. Her kidney function and electrolyte status as well as glucose will need to be investigated. Imaging was obtained due to concern for new injuries following her fall last Sunday. Additionally there may be an infectious element such as a viral infection or bacterial pneumonia. She does not meet SIRS criteria. She was initially given fluids and her home pain medications while medical tests were conducted. External records reviewed: Home med list Diagnostics interpreted by me: EKG(s) Discussions with other clinicians: Hospitalist Chronic conditions impacting care: Chronic pain, spinal stenosis Social determinants of health affecting care: ED Medications managed: Medications buprenorphine (Butrans) 5 MCG/HR 5 mcg (has no administration in time range) gabapentin (Neurontin) capsule 300 mg (300 mg Oral Not Given 07/18/24 1430) lactated Ringer's infusion (has no administration in time range) azithromycin (Zithromax) 500 mg in sodium chloride 0.9 % 250 mL IVPB (ADD- [place]) (has no administration in time range) cefTRIAXone (Rocephin) 1,000 mg in sodium chloride 0.9 % 50 mL IVPB Mini-Bag Plus (has no administration in time range) lactated ringers bolus 500 mL (500 mL IntraVENous New Bag 07/18/24 1459) Prescription drugs considered: PROCEDURES: Unless otherwise noted below, none Procedures FINAL IMPRESSION 1. Inability to walk 2. Chronic midline low back pain without sciatica 3. Anorexia 4. Myalgia 5. Dehydration 6. Chronic diarrhea DISPOSITION Admit 07/18/2024 05:44:32 PM PATIENT REFERRED TO: No follow-up provider specified. DISCHARGE MEDICATIONS: New Prescriptions No medications on file (Comment: Please note this report has been produced using speech recognition software and may contain errors related to that system including errors in grammar, punctuation, and spelling, as well as words and phrases that may be inappropriate. If there are any questions or concerns please feel freeto contact the dictating provider for clarification.) Wade Tripathi DO (electronically signed) Emergency Medicine Provider Wade Tripathi DO Resident 07/18/24 1582 Cosigned by Marcell Ballard MD at 07/18/2024 8:02 PM EST [id number] Emergency department Note* Marcell Ballard MD - 07/18/2024 1:24 PM EST Emergency Department Encounter EMERGENCY DEPARTMENT Patient: Kathryn Tamez : 1940 Date of Evaluation: 07/18/2024 ED Supervising Physician: Marcell Ballard MD I independently examined and evaluated Kathryn Tamez. This will serve as my Supervisory note and shared attestation. I did perform a substantive portion of the visit including all aspects of the Medical Decision Making. I wore appropriate PPE for the entirety of this encounter. In brief, Kathryn Tamez is a 84 y.o. that presents to the emergency department with fall, inability to walk, anorexia, generalized bodyaches, diffuse back pain Patient has chronic pain, chronic lumbar spinal stenosis, had back surgery in 2018. Ex-smoker. Doesnot drink. Family says she normally walks on her own but has been having more and more back pain recently. Patient was supposed to have an operation on her back on this past Sunday, but the family says that the operation was canceled for financial reasons. As part of the prep for the operation, the patient stopped all of her chronic pain medication that she takes for her back. She has not resumed the chronic pain medication since the surgery was canceled either, so she is now very uncomfortable and may actually be in a degree of narcotic withdrawal. She is complaining of diffuse body pain all over, diffuse myalgias, and is curled up in a ball on the bed crying. Family says that the patient has not had anything to eat or drink in several days, she has chronic diarrhea but this is unchanged. No nausea no vomiting no abdominal pain. She denies any chest pain or shortness of breath, but she does have subtle tachypnea noted on examination. She appears tired and dehydrated and depleted. Of note, in terms of neurological red flags, patient has chronic urinary retention which is unchanged, she has no saddle anesthesia, she has no radiculopathy. Her motor function in all 4 extremities remains intact. She has chronic numbness in her feet and legs, this is unchanged today. She has no numbness in bilateral hands. However, family also noted the patient fell on Sunday and this has not been evaluated by any clinician. It is difficult for the patient to tell us if she injured her head or her neck or her back during the fall because she has chronic back pain 01/01 and has pain all over right now. There is no laceration to suture. ED Triage Vitals [07/18/24 1357] Temp Heart Rate Resp BP 37.4 C (99.4 F) 84 16 106/54 SpO2 Temp Source Heart Rate Source Patient Position (!) 92 % Oral Monitor Sitting BP Location FiO2 (%) Left arm -- Focused exam: General: Elderly female lying on her side in bed, appears tired depleted. Curled up in a ball crying HENT: Head NCAT, EOMI with no erythema, swelling or discharge. Pupils 4 mm PERRL. No raccoon's eyes No Mora sign Face is stable No CSF rhinorrhea or otorrhea No epistaxis Oropharyngeal mucus membranes very dry, pink, no exudate Neck: Full ROM, supple, no rigidity Cardio: Heart rate in the upper 90s, normotensive, nl s1 s2 no m/r/g, extremities warm, dry, well perfused, non-edematous, 2+ bilateral radial pulses, 2+ bilateral DP pulses Lungs: Patient denies any dyspnea but she does have subtle tachypnea noted on exam, with bibasilar crackles noted on exam. Rare dry cough on exam. SaO2 92% on room air. No wheezes no rales. Abdomen: Soft, NT, ND, non-rigid, BS x 4 normal MSK: The entirety of the patient's cervical thoracic and lumbar spine is tender to palpation, no one area hurts more than any other. There are no obvious step- offs or bony deformities noted. 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 Diffusely diminished 3/5 strength in bilateral lower extremities with chronic unchanged numbness bilateral feet andlower legs Normal coordination in upper and lower extremities, though patient's ability to do [id number] and aiyu-zo-[id number] testing is limited by pain Gait not tested, patient is too uncomfortable to stand up Slow speech, not slurred speech. Patient is not dysarthric No aphasia No facial droop No pronator drift Negative test of skew bilaterally Negative saddle anesthesia Normal rectal tone Negative bilateral lower extremity straight leg raise, patient complains of generalized body aches,not radiculopathy symptoms Brief ED course/MDM: 84-year-old female presents for inability to walk, fall several days ago, off of all of her chronic pain medication, Tuesdays back surgery was canceled MDM elements: The patient presented with chief complaint of see above. The differential diagnosis associated with this patient's presentation includes patient may be having pain all over secondary to being off of all of her chronic pain medication for several days, patient may have pain all over secondary to underlying infection such as pneumonia COVID-19 RSV influenza, patient may have pain all over following fall several days ago; it is honestly difficult for the patient to determine whether or not the pain in her cervical thoracic or lumbar spine is secondary to her fall or secondary to her chronic back pain. She appears dehydrated and miserable, family says patient has stopped eating but she has a completely benign abdominal examination so this makes bowelobstruction or colitis or diverticulitis less likely. Our workup consisted of ordering/reviewing: CT head CT cervical spine CT thoracic spine CT lumbar spine and chest x-ray given the subtle tachypnea and rhonchi noted on examination. Rehydration, restarting patient's missing buprenorphine patches and gabapentin medication, hospitalization given inability to walk. Diagnostic tests considered but not performed: I did consider the possibility of an MRI of the patient's spinal cord, but clinically her neurological examination (though not 100% normal for the average patient) is normal/chronic/steady state for her. The numbness in her feet and legs is chronic, the urinary retention is chronic, she has no lateralizing motor weakness and the arms and legs are equa lly weak in all 4 extremities, she has no saddle anesthesia and she has no radiculopathy. Thereforeno emergent MRI spinal cord is required To aid in management, I performed an independent interpretation of Xray(s) see below CT scan(s) see below EKG; see my interpretation elsewhere in the chart Blood work, see below. I also reviewed external records from past medical records in [facility] to obtain collateral history. I discussed their care with Supervisor [employer] . The patient will be Admitted. Patient is in agreement with this plan. Patient's care was impacted by chronic back pain, inability to walk, Tues back surgery was canceled. SCREENINGS EKG: I read and interpreted this EKG. My interpretation can be found in the [employer] EKG system. EKG shows NSR, normal axis, normal OK QRS and QTC intervals, no STEMI, no SVT, no LVH. Low voltage. Previous EKG unchanged. Labs Reviewed COMPREHENSIVE METABOLIC PANEL - Abnormal Result Value SODIUM 141 POTASSIUM 4.0 CHLORIDE 107 CARBON DIOXIDE 25 ANION GAP 9 UREA NITROGEN 19 CREATININE 1.02 GLUCOSE 154 (*) CALCIUM 8.8 AST (SGOT) 58 (*) ALT 44 (*) ALKALINE PHOSPHATASE 79 ALBUMIN 3.8 BILIRUBIN, TOTAL 0.4 TOTAL PROTEIN 6.5 eGFR 54.4 (*) CBC WITH AUTO DIFFERENTIAL - Abnormal Auto WBC 32.1 (*) RBC 4.20 Hemoglobin 12.0 Hematocrit 36.2 MCV 86.2 MCH 28.6 MCHC 33.1 RDW 13.9 Platelets 180 MPV 11.1 HIGH SENSITIVITY TROPONIN, SERIAL BASELINE - Abnormal Troponin HS Serial Baseline 18 (*) HIGH SENSITIVITY TROPONIN, SERIAL, SECOND TEST - Abnormal 2h Troponin HS (Serial 2nd Troponin) 17 (*) MANUAL DIFFERENTIAL (CELLAVISION) - Abnormal RBC Morphology Normal Neutrophils % 74 Bands % 5 (*) Lymphocytes % 7 (*) Monocytes % 15 (*) Absolute Neutrophil Count 25.4 (*) Bands Absolute 1.6 (*) Lymphocytes Absolute 2.2 Monocytes Absolute 4.8 (*) Neutrophils Manual 76 Lymphocytes Manual 7 Monocytes Manual 15 Eosinophils Manual Basophils Manual Bands Manual 5 Metamyelocytes Manual Myelocytes Manual Promyelocytes Manual Blasts Manual Atypical Lymphocytes Manual Unclassified Cells, Manual C-REACTIVE PROTEIN - Abnormal C REACTIVE PROTEIN 28.0 (*) LACTIC ACID WITH REFLEX - Abnormal LACTIC ACID 2.9 (*) PROCALCITONIN TEST - Abnormal PROCALCITONIN 6.90 (*) Narrative: PCT <0.50 = Low risk of severe sepsis and/or septic shock. PCT >2.00 = High risk of severe sepsis and/or septic shock. SARS-COV-2, FLU A/B, AND RSV COMBO - Normal SARS-CoV-2 Not Detected Respiratory Syncytial Virus Not Detected Influenza A Not Detected Influenza B Not Detected Narrative: Methodology: real-time, RT-PCR CK - Normal CK 37 SEDIMENTATION RATE, AUTOMATED - Normal Sed Rate 12 BLOOD CULTURE BLOOD CULTURE PATHOLOGY REVIEW COMPLETE URINALYSIS WITH REFLEX TO CULTURE Narrative: The following orders were created for panel order Complete Urinalysis with reflex to Culture. Procedure Abnormality Status --------- ------ Complete Urinalysis[[id number]] Please view results for these tests on the individual orders. COMPLETE URINALYSIS CBC WITH AUTO DIFFERENTIAL COMPREHENSIVE METABOLIC PANEL LACTIC ACID WITH REFLEX XR chest 2 views Final Result Chronic obstructive pulmonary disease without acute abnormality Report Dictated on Electronically Signed By: Giovanni Irby MD Electronically Signed Date/Time: 07/18/2024 6:[address] head wo IV contrast Final Result No CT evidence of an acute intracranial abnormality. Chronic microvascular ischemia Report Dictated on Electronically Signed By: Alonso Byrne MD Electronically Signed Date/Time: 07/18/2024 3:[address] cervical spine wo IV contrast Final Result Mild cervical spondylosis. No fracture or traumatic malalignment. Report Dictated on Electronically Signed By: Alonso Byrne MD Electronically Signed Date/Time: 07/18/2024 3:[address] lumbar spine wo IV contrast Final Result Mild lumbar spondylosis. No acute osseous abnormalities in the thoracic or lumbar spine. Report Dictated on Electronically Signed By: Alonso Byrne MD Electronically Signed Date/Time: 07/18/2024 3:[address] thoracic spine wo IV contrast Final Result Mild thoracic spondylosis. Diffuse osteopenia. Groundglass densities in the bilateral lungs may represent atypical infection. Report Dictated on Electronically Signed By: Alonso Byrne MD Electronically Signed Date/Time: 07/18/2024 3:48 PM EST Metabolic panel shows no metabolic acidosis, good kidney function, glucose elevated 154 Mild transaminitis Alk phos unremarkable CK negative, argues against rhabdomyolysis HST #1 is elevated at 18, however HST #2 is slightly less elevated at 17 for a delta of -1 Lactic acidosis at 2.9 Procalcitonin 6.90, concerning for bacterial infection Significant leukocytosis at 30 2.1K. This coupled with the patient's subtle tachypnea and subtle tachycardia is concerning for sepsis Not anemic Normal platelet count ESR is negative but CRP is elevated at 28 COVID-[address] influenza all negative CT cervical spine shows mild cervical spondylosis. No fracture or traumatic malalignment. Interpreted by radiology and by me. CT head shows no evidence of acute intracranial abnormality. No mass next axial fluid collection nosignificant localized mass effect. No acute intracranial process no acute intracranial hemorrhage no skull fracture by my read. Interpreted by radiology and by me. CT lumbar spine shows mild lumbar spondylosis. No acute osseous abnormalities in the lumbar spine. No evidence of acute fracture. No aggressive osseous lesions. There is diffuse osteopenia. Laminectomy defect noted involving L4 and L5 levels. Sacrum and pelvis are normal, the presacral soft tissuesare normal. There is mild multilevel spondylosis without critical spinal canal or neural foraminal stenosis. Interpreted by radiology and by me. CT thoracic spine shows no fracture or subluxation or other malalignment. Facet joints are unremarkable. No bone lesion identified. Of note, groundglass densities are noted in bilateral lungs. Overall, mild thoracic spondylosis and diffuse osteopenia, but groundglass densities in bilateral lungs may represent atypical infection i.e. pneumonia. This may explain patient's leukocytosis and tachypneaand bibasilar crackles on examination. Therefore patient will be started on IV antibiotics on suspicion for sepsis. Interpreted by radiology and by me. Patient was medicated as above with IV antibiotics on suspicion for sepsis, which coupled with her dehydration and chronic body aches and missing all of her home pain medication may explain why she feels so poorly. As patient cannot walk, patient will need to be admitted to the hospital. Results ofworkup and plan of care were explained to patient's family and the patient herself by me. They indicated understanding and agreed to inpatient admission. All questions answered to their satisfaction. SEP-1 CORE MEASURE DATA SIRS Criteria Sepsis Criteria Severe Sepsis Criteria Septic Shock Criteria Must meet 2: [] Temperature > 100.4 F (38 C) or < 96.8 F (36 C) [x] HR > 90 [x] RR > 20 [x] WBC > 12 or < 4 or 10% bands Must be confirmed or suspected to move forward with diagnosis of sepsis. Must select at least one: [x] Bacterial Infection Confirmed or Suspected. [] Viral Infection Confirmed or Suspected. [] No infection present. Patient does not meet criteria for Sepsis. Must meet 1: [x] Lactate > 2 or [] Signs of Organ Dysfunction: - SBP < 90 or MAP < 65 - Altered mental status - Creatinine > 2 or increased from baseline - Urine Output < 0.5 ml/kg/hr - Bilirubin > 2 - INR > 1.5 - Platelets < 100,000 - Acute Respiratory Failure as evidenced by new need for NIPPV or mechanical ventilation [] No criteria met for Severe Sepsis. Must meet 1: [] Lactate = or > 4 or [] SBP < 90 or MAP < 65 for at least two readings in the first hour after fluid bolus administration [x] No criteria met for Septic Shock. No data found. Recent Labs 07/18/24 1446 07/18/24 1811 WBC 32.1* -- LACTATE -- 2.9* CREATININE 1.02 -- BILITOT 0.4 -- PLT 180 -- Sepsis Identified at 1746 Fluid Resuscitation Rationale: Patient does not have hypotension or lactic acid above 4.0. 30 mL/kgIV fluid resuscitation not indicated Infection Source: Pulmonary - Community Acquired Reassessment Exam: Not applicable. Patient does not have Septic Shock. Marcell Ballard MD On reassessment, patient is neurologically unchanged, normotensive, heart rate hovering in the upper 90s, SaO2 is 100%, she is not tachypneic she is not febrile she does not require noninvasive positive pressure ventilation or endotracheal intubation. She does not have septic shock. There is no indication for ICU admission at this time, however the [facility], so hospitalist service was paged for admission. Disposition: Admitted Critical Care Attestation: The patient required critical care because the patient suffered severe sepsis. Critical care provided to the patient included: Lab review, multiple reassessments of patient, working with consultants,treating severe sepsis, updating and educating patient and family, documentation time. Critical care time does not include any procedures performed. I personally saw the patient and independently provided 45 minutes of non-concurrent critical care. 1. Severe sepsis (HCC) 2. Chronic midline low back pain without sciatica 3. Inability to walk 4. Anorexia 5. Myalgia 6. Dehydration 7. Chronic diarrhea 8. Pneumonia due to infectious organism, unspecified laterality, unspecified part of lung 9. Leukocytosis, unspecified type 10. Fall, initial encounter All diagnostic, treatment, and disposition decisions were made by myself in conjunction with the Resident. I also supervised medeiros portions of any procedures performed by the Resident. For all further details of the patient's emergency department visit, please see their documentation. (Comment: Please note this report has been produced using speech recognition software and may contain errors related to that system including errors in grammar, punctuation, and spelling, as well as words and phrases that may be inappropriate. If there are any questions or concerns please feel freeto contact the dictating provider for clarification.) Marcell Ballard MD Acute Care [facility] Marcell Ballard MD 07/18/242030 [facility]01-30-2025 NoteHNO ID: [id number] Author: VERENICE ROCA MD Service: ? Author Type: Physician Type: Progress Notes Filed: 07/10/2024 09:44 Note Text: Visit Date: July 10, 2024 Ms.Marjorie Edith Tamez Date of : 1940 MRN/E #: [id number] Chief Complaint: Patient presents with: Pre-Op Visit History of Present Illness Kathryn Tamez is a 84 year old female. Patient is in for preop clearance for back surgery. She has spinal stenosis with some lumbar radiculopathy. I did review all of her blood work from preop. Reviewed other blood work 2 as well as an echo from 2020 she did have 64% ejection fraction. No complaints except for her back pain. She is a former smoker. Told her to make sure she does not take any aspirin or NSAIDs [id number] for a week prior to her surgery. PAST MEDICAL HISTORY Diagnosis Date Acquired hypothyroidism Acute gastritis Adjustment disorder with depressed mood Allergic rhinitis Alopecia Arthritis left knee replaced 3 times Atrophic vaginitis Basal cell carcinoma of nasolabial groove Chronic pain Chronic pelvic pain in female Constipation COPD (chronic obstructive pulmonary disease) (HCC) Depression Dysuria Epigastric pain Essential hypertension External ear conductive hearing loss Female stress incontinence Fibromyalgia Functional diarrhea Functional disorder of bladder Generalized abdominal pain H/O goiter s/p thyroidectomy Headache Hip pain History of fall History of kidney problems renal cell carcinoma Hyperkalemia Hyperlipidemia Impacted cerumen Incomplete emptying of bladder Incontinence of feces Increased frequency of urination Jaw pain Joint pain Leukocytosis Lumbar back pain Medication monitoring encounter Migraine with aura Mitral valve prolapse Muscle pain Muscle spasms of neck and/or neck Muscle weakness Must strain to pass urine Nausea and vomiting Neck pain Neoplasm of brain (HCC) Nocturia Obesity Osteoporosis Pain in lower limb Pain in wrist Painful urging to urinate Periumbilical pain Primary fibromyalgia syndrome Dr. Clay Primary malignant neoplasm of kidney (HCC) Refractory migraine with aura Restless legs Sleep deprivation Spasm of back muscles Temporomandibular joint disorder Tobacco dependence syndrome Tobacco use quit smoking in 04-25 Urinary incontinence, mixed Urinary tract infectious disease Viral gastroenteritis PAST SURGICAL HISTORY Procedure Laterality Date ANKLE SURGERY HX Right 2013 ankle ARTHRP KNE CONDYLEANDPLATU MEDIALANDLAT COMPARTMENTS Left X3 CHOLECYSTECTOMY COLONOSCOPY 08/05/2018 Dr. Guan (repeat in 10 years) HAND SURGERY HX Right 04/2022 KIDNEY SURGERY HX Left 2003 Removed- renal cell CA LEG SURGERY HX x6 PAST SURGICAL HISTORY OF 06/26/2015 Temporary Implant placed right hip for bladder control PAST SURGICAL HISTORY OF 07/02/2015 Permanent implant placed right hip for bladder control PAST SURGICAL HISTORY OF Left Hip fracture PAST SURGICAL HISTORY OF Left Broken Femur PAST SURGICAL HISTORY OF Right 07/26/2023 rt ring finger release THYROID SURGERY HX 2004 partial TOTAL ABDOMINAL HYSTERECT W/WO RMVL TUBE OVARY BSO Social History Tobacco Use Smoking status: Former Current packs/day: 0.00 Types: Cigarettes Start date: 08/18/1958 Quit date: 08/18/2018 Years since quittin.8 Smokeless tobacco: Never Tobacco comments: One pack of cigarettes every 3 weeks Vaping Use Vaping status: Never Used Substance Use Topics Alcohol use: No Comment: Rarely Drug use: No Family History Reviewed Including Cardiac Diseases, Psychiatric Diseases, AND Substance Abuse Problem: Cancer Relation: Father Age of Onset: (Not Specified) Problem: Hypertension Relation: Sister Age of Onset: (Not Specified) Problem: Stroke Relation: Sister Age of Onset: (Not Specified) Problem: Coronary Artery Disease Relation: Sister Age of Onset: (Not Specified) Problem: Diabetes Relation: Sister Age of Onset: (Not Specified) Problem: Leukemia Relation: Sister Age of Onset: (Not Specified) Problem: Colon Cancer Relation: No Family History Age of Onset: (Not Specified) ALLERGIES No Known Allergies Current Outpatient Medications Medication Sig famotidine (PEPCID) 20 mg tablet TAKE ONE TABLET BY MOUTH TWO TIMES A DAY sertraline (ZOLOFT) 100 mg tablet TAKE TWO TABLETS BY MOUTH ONCE DAILY levothyroxine (SYNTHROID) 88 mcg tablet take one tablet by mouth daily hydrOXYzine HCl (ATARAX) 10 mg tablet TAKE ONE TABLET BY MOUTH EVERY DAY AT BEDTIME NEEDED FOR ANXIETY SUMAtriptan (IMITREX) 50 mg tablet Take 1 tablet (50 mg) by mouth as needed (at onset of headache. May repeat after 2 hours.). colestipol (COLESTID) 1 gram tablet Take 1 tablet by mouth two times a day. chlorzoxazone (PARAFON FORTE DSC) 500 mg tablet Take 1 tablet by mouth four times a (more content not included)...[facility]01-30-2025 History of Present illness Narrative* Verenice Roca MD - 07/10/2024 9:26 AM EST Visit Date: July 10, 2024 Ms.Marjorie Edith Tamez Date of : 1940 MRN/E #: [id number] Chief Complaint: Patient presents with: Pre-Op Visit History of Present Illness Kathryn Tamez is a 84 year old female. Patient is in for preop clearance for back surgery. She has spinal stenosis with some lumbar radiculopathy. I did review all of her blood work from preop. Reviewed other blood work 2 as well as an echo from 2020 she did have 64% ejection fraction. No complaints except for her back pain. She is a former smoker. Told her to make sure she does not take any aspirin or NSAIDs [id number] for a week prior to her surgery. PAST MEDICAL HISTORY Diagnosis Date Acquired hypothyroidism Acute gastritis Adjustment disorder with depressed mood Allergic rhinitis Alopecia Arthritis left knee replaced 3 times Atrophic vaginitis Basal cell carcinoma of nasolabial groove Chronic pain Chronic pelvic pain in female Constipation COPD (chronic obstructive pulmonary disease) (HCC) Depression Dysuria Epigastric pain Essential hypertension External ear conductive hearing loss Female stress incontinence Fibromyalgia Functional diarrhea Functional disorder of bladder Generalized abdominal pain H/O goiter s/p thyroidectomy Headache Hip pain History of fall History of kidney problems renal cell carcinoma Hyperkalemia Hyperlipidemia Impacted cerumen Incomplete emptying of bladder Incontinence of feces Increased frequency of urination Jaw pain Joint pain Leukocytosis Lumbar back pain Medication monitoring encounter Migraine with aura Mitral valve prolapse Muscle pain Muscle spasms of neck and/or neck Muscle weakness Must strain to pass urine Nausea and vomiting Neck pain Neoplasm of brain (HCC) Nocturia Obesity Osteoporosis Pain in lower limb Pain in wrist Painful urging to urinate Periumbilical pain Primary fibromyalgia syndrome Dr. Clay Primary malignant neoplasm of kidney (HCC) Refractory migraine with aura Restless legs Sleep deprivation Spasm of back muscles Temporomandibular joint disorder Tobacco dependence syndrome Tobacco use quit smoking in 04-25 Urinary incontinence, mixed Urinary tract infectious disease Viral gastroenteritis PAST SURGICAL HISTORY Procedure Laterality Date ANKLE SURGERY HX Right 2013 ankle ARTHRP KNE CONDYLE&PLATU MEDIAL&LAT COMPARTMENTS Left X3 CHOLECYSTECTOMY COLONOSCOPY 08/05/2018 Dr. Guan (repeat in 10 years) HAND SURGERY HX Right 04/2022 KIDNEY SURGERY HX Left 2003 Removed- renal cell CA LEG SURGERY HX x6 PAST SURGICAL HISTORY OF 06/26/2015 Temporary Implant placed right hip for bladder control PAST SURGICAL HISTORY OF 07/02/2015 Permanent implant placed right hip for bladder control PAST SURGICAL HISTORY OF Left Hip fracture PAST SURGICAL HISTORY OF Left Broken Femur PAST SURGICAL HISTORY OF Right 07/26/2023 rt ring finger release THYROID SURGERY HX 2004 partial TOTAL ABDOMINAL HYSTERECT W/WO RMVL TUBE OVARY BSO Social History Tobacco Use Smoking status: Former Current packs/day: 0.00 Types: Cigarettes Start date: 08/18/1958 Quit date: 08/18/2018 Years since quittin.8 Smokeless tobacco: Never Tobacco comments: One pack of cigarettes every 3 weeks Vaping Use Vaping status: Never Used Substance Use Topics Alcohol use: No Comment: Rarely Drug use: No Family History Reviewed Including Cardiac Diseases, Psychiatric Diseases, & Substance Abuse Problem: Cancer Relation: Father Age of Onset: (Not Specified) Problem: Hypertension Relation: Sister Age of Onset: (Not Specified) Problem: Stroke Relation: Sister Age of Onset: (Not Specified) Problem: Coronary Artery Disease Relation: Sister Age of Onset: (Not Specified) Problem: Diabetes Relation: Sister Age of Onset: (Not Specified) Problem: Leukemia Relation: Sister Age of Onset: (Not Specified) Problem: Colon Cancer Relation: No Family History Age of Onset: (Not Specified) ALLERGIES No Known Allergies Current Outpatient Medications Medication Sig famotidine (PEPCID) 20 mg tablet TAKE ONE TABLET BY MOUTH TWO TIMES A DAY sertraline (ZOLOFT) 100 mg tablet TAKE TWO TABLETS BY MOUTH ONCE DAILY levothyroxine (SYNTHROID) 88 mcg tablet take one tablet by mouth daily hydrOXYzine HCl (ATARAX) 10 mg tablet TAKE ONE TABLET BY MOUTH EVERY DAY AT BEDTIME NEEDED FOR ANXIETY SUMAtriptan (IMITREX) 50 mg tablet Take 1 tablet (50 mg) by mouth as needed (at onset of headache. May repeat after 2 hours.). colestipol (COLESTID) 1 gram tablet Take 1 tablet by mouth two times a day. chlorzoxazone (PARAFON FORTE DSC) 500 mg tablet Take 1 tablet by mouth four times a day as needed. dicyclomine (BENTYL) 10 mg capsule Take 1 capsule by mouth three times daily as needed (for abdominal pain). denosumab (PROLIA) 60 mg/mL Inject 1 mL subcutaneously once every 6 months. gabapentin (NEURONTIN) 300 mg capsule Take 300 mg by mouth two times a day. Pain MGMT No current facility-administered medications for this visit. Review of Systems Review of Systems Constitutional: Negative for chills, diaphoresis, fever, malaise/fatigue and weight loss. HENT: Negative for congestion, ear discharge, ear pain, hearing loss, nosebleeds, sinus pain, sore throat and tinnitus. Eyes: Negative for blurred vision, discharge and redness. Respiratory: Negative for cough, hemoptysis, sputum production, shortness of breath, wheezing and stridor. Cardiovascular: Negative for chest pain, palpitations, orthopnea, claudication, leg swelling and PND. Gastrointestinal: Negative for abdominal pain, blood in stool, constipation, diarrhea, heartburn, melena, nausea and vomiting. Genitourinary: Negative for dysuria, frequency and urgency. Musculoskeletal: Positive for back pain. Negative for falls, joint pain, myalgias and neck pain. Skin: Negative for itching and rash. Neurological: Negative for dizziness, tingling, tremors and headaches. Psychiatric/Behavioral: Positive for depression. Negative for hallucinations, memory loss, substance abuse and suicidal ideas. The patient is not nervous/anxious and does not have insomnia. BP 118/70 Pulse 69 Temp (Src) 96.8 (Temporal) Wt 120 lb 12.8 oz (54.8kg) SpO2 95% Physical Exam Physical Exam Vitals reviewed. Constitutional: General: She is not in acute distress. Appearance: Normal appearance. She is not diaphoretic. HENT: Head: Normocephalic and atraumatic. Right Ear: External ear normal. There is no impacted cerumen. Left Ear: External ear normal. There is no impacted cerumen. Nose: Nose normal. No congestion or rhinorrhea. Eyes: General: No scleral icterus. Right eye: No discharge. Left eye: No discharge. Conjunctiva/sclera: Conjunctivae normal. Pupils: Pupils are equal, round, and reactive to light. Neck: Thyroid: No thyromegaly. Vascular: No carotid bruit. Trachea: No tracheal deviation. Cardiovascular: Rate and Rhythm: Normal rate and regular rhythm. Heart sounds: Normal heart sounds. No murmur heard. No friction rub. No gallop. Pulmonary: Effort: Pulmonary effort is normal. No respiratory distress. Breath sounds: Normal breath sounds. No stridor. No wheezing or rales. Chest: Chest wall: No tenderness. Abdominal: General: Bowel sounds are normal. There is no distension. Palpations: Abdomen is soft. Abdomen is not rigid. There is no mass. Tenderness: There is no abdominal tenderness. There is no guarding or rebound. Musculoskeletal: General: No swelling or tenderness. Normal range of motion. Cervical back: Normal range of motion and neck supple. No rigidity or tenderness. Lymphadenopathy: Cervical: No cervical adenopathy. Skin: General: Skin is warm and dry. Coloration: Skin is not jaundiced or pale. Findings: No erythema or rash. Neurological: General: No focal deficit present. Mental Status: She is alert and oriented to person, place, and time. Cranial Nerves: No cranial nerve deficit. Motor: No abnormal muscle tone. Coordination: Coordination normal. Deep Tendon Reflexes: Reflexes normal. Psychiatric: Mood and Affect: Mood and affect normal. Cognition and Memory: Memory normal. Judgment: Judgment normal. ASSESSMENT/PLAN: 1. Lumbar radiculopathy - ICD9: 724.4, ICD10: M54.16 (primary diagnosis) Chronic low back pain - Ice for localized tenderness - Warm moist heat for 20 min three times a day 2. Preoperative clearance - ICD9: V72.84, ICD10: Z01.818 Medically cleared for surgery Verenice Roca MD Medical Decision Making: Problems: Moderate: 1+ chronic illnesses with change Data: Unique test result(s) reviewed: 3+ Risk: High: Decision on elective major surgery w/ risk factors Medical Decision Making Level: 4 - Moderate PRN with PCP Discussed above plan with patient. Pt agreeable with above plan. [facility] encounter Note * Telephone Encounter - Geraldine Gonzales MA - 07/04/2024 3:05 PM EST Mailbox full, unable to leave msg. Geraldine Gonzales MA [facility]01-24-2025 Miscellaneous Notes* Telephone Encounter - Geraldine Gonzales MA - 07/04/2024 3:05 PM EST Mailbox full, unable to leave msg. Geraldine Gonzales MA * Telephone Encounter - Geraldine Gonzales MA - 07/04/2024 12:51 PM EST Mailbox full, unable to leave msg. Geraldine Gonzales MA * Telephone Encounter - Leonardo Lyles APRN.[employer] - 07/04/2024 12:22 PM EST Please let the patient know [facility] sent over results of positive urine culture for E. coli.Macrobid twice a day for 5 days has been ordered. Please encourage the patient to stay well-hydrated while taking this. Please ask them to follow-up with ongoing symptoms. Leonardo Lyles APRN.CNP documented [facility] Telephone encounter Note * Telephone Encounter - Geraldine Gonzales MA - 07/04/2024 12:51 PM EST Mailbox full, unable to leave msg. Geraldine Gonzales MA [facility]01-24-[facility] Telephone encounter Note* Telephone Encounter - Leonardo Lyles APRN.CNP - 07/04/2024 12:22 PM EST Please let the patient know [facility] sent over results of positive urine culture for E. coli.Macrobid twice a day for 5 days has been ordered. Please encourage the patient to stay well-hydrated while taking this. Please ask them to follow-up with ongoing symptoms. Leonardo Lyles APRN.CNP [facility]01-17-20[facility] Telephone encounter Note* Telephone Encounter - Leonardo Lyles APRN.CNP - 06/27/2024 11:26 AM EST Please let the patient know they are overdue for an office visit. Please assist with scheduling. Leonardo Lyles APRN.CNP [facility]01-17-2025 Miscellaneous Notes* Telephone Encounter - Leonardo Lyles APRN.CNP - 06/27/2024 11:26 AM EST Please let the patient know they are overdue for an office visit. Please assist with scheduling. Leonardo Lyles APRN.MIKAEL * Telephone Encounter - Geraldine Gonzales MA - 06/27/2024 9:30 AM EST Pharmacy called requesting the following refill Refill(s) Requested: Requested Prescriptions Pending Prescriptions Disp Refills famotidine (PEPCID) 20 mg tablet [Pharmacy Med Name: Famotidine Oral Tablet 20 MG] 60 tablet 0 Sig: TAKE ONE TABLET BY MOUTH TWO TIMES A DAY ALLERGIES No Known Allergies (home) [phone] (cell) Last Office Visit Date: 04/01/2024 Last [facility] Visit: Visit date not found Future Appointment: Visit date not found The patients preferred pharmacy has been captured for this encounter? yes Request is for script(s) to be escript to pharmacy. Geraldine Gonzales MA documented in [facility] Telephone encounter Note * Telephone Encounter - Geraldine Gonzales MA - 06/27/2024 9:30 AM EST Pharmacy called requesting the following refill Refill(s) Requested: Requested Prescriptions Pending Prescriptions Disp Refills famotidine (PEPCID) 20 mg tablet [Pharmacy Med Name: Famotidine Oral Tablet 20 MG] 60 tablet 0 Sig: TAKE ONE TABLET BY MOUTH TWO TIMES A DAY ALLERGIES No Known Allergies (home) [phone] (cell) Last Office Visit Date: 04/01/2024 Last [facility] Visit: Visit date not found Future Appointment: Visit date not found The patients preferred pharmacy has been captured for this encounter? yes Request is for script(s) to be escript to pharmacy. Geraldine Gonzales MA [facility]11-27-2024 Telephone encounter Note* Telephone Encounter - Meron Borja MA - 05/07/2024 3:23 PM EST Patient sent a [employer] message requesting the following refill Refill(s) Requested: Requested Prescriptions Pending Prescriptions Disp Refills sertraline (ZOLOFT) 100 mg tablet [Pharmacy Med Name: Sertraline HCl Oral Tablet 100 MG] 180 tablet0 Sig: TAKE TWO TABLETS BY MOUTH ONCE DAILY ALLERGIES No Known Allergies (home) [phone] (cell) Last Office Visit Date: 04/01/2024 Last [facility] Visit: Visit date not found Future Appointment: 07/01/2024 The patients preferred pharmacy has been captured for this encounter? yes Request is for script(s) to be escript to pharmacy. Meron Borja MA [facility]11-27-[facility] Miscellaneous Notes* Telephone Encounter - Meron Borja MA - 05/07/2024 3:23 PM EST Patient sent a [employer] message requesting the following refill Refill(s) Requested: Requested Prescriptions Pending Prescriptions Disp Refills sertraline (ZOLOFT) 100 mg tablet [Pharmacy Med Name: Sertraline HCl Oral Tablet 100 MG] 180 tablet0 Sig: TAKE TWO TABLETS BY MOUTH ONCE DAILY ALLERGIES No Known Allergies (home) [phone] (cell) Last Office Visit Date: 04/01/2024 Last [facility] Visit: Visit date not found Future Appointment: 07/01/2024 The patients preferred pharmacy has been captured for this encounter? yes Request is for script(s) to be escript to pharmacy. Meron Borja MA documented in this encounterL[facility]11-[facility]24 Telephone encounter Note * Telephone Encounter - Meron Borja MA - 05/07/2024 3:00 PM EST Patient sent a [employer] message requesting the following refill Refill(s) Requested: Requested Prescriptions Pending Prescriptions Disp Refills famotidine (PEPCID) 20 mg tablet [Pharmacy Med Name: Famotidine Oral Tablet 20 MG] 60 tablet 0 Sig: TAKE ONE TABLET BY MOUTH TWO TIMES A DAY ALLERGIES No Known Allergies (home) [phone] (cell) Last Office Visit Date: 04/01/2024 Last [facility] Visit: Visit date not found Future Appointment: Visit date not found The patients preferred pharmacy has been captured for this encounter? yes Request is for script(s) to be escript to pharmacy. Meron Borja MA [facility]11-27-2024 Miscellaneous Notes* Telephone Encounter - Meron Borja MA - 05/07/2024 3:00 PM EST Patient sent a Custom C[employer] message requesting the following refill Refill(s) Requested: Requested Prescriptions Pending Prescriptions Disp Refills famotidine (PEPCID) 20 mg tablet [Pharmacy Med Name: Famotidine Oral Tablet 20 MG] 60 tablet 0 Sig: TAKE ONE TABLET BY MOUTH TWO TIMES A DAY ALLERGIES No Known Allergies (home) [phone] (cell) Last Office Visit Date: 04/01/2024 Last Distance Health Visit: Visit date not found Future Appointment: Visit date not found The patients preferred pharmacy has been captured for this encounter? yes Request is for script(s) to be escript to pharmacy. Meron Borja MA documented in this encounterL[facility] Note* Perioperative Nursing Note - Donny Mahan RN - 04/16/2024 1:59 PM EST Phase 2 care completed. Iv removed. Will dc to home with her [facility]Ohwgis91-08-5257 Note* Perioperative Nursing Note - Donny Mahan RN - 04/16/2024 1:59 PM EST Phase 2 care completed. Iv removed. Will dc to home with her son [facility] HospitalItwmxs34-16-3889 Miscellaneous Notes* Perioperative Nursing Note - Donny Mahan RN - 04/16/2024 1:59 PM EST Phase 2 care completed. Iv removed. Will dc to home with her son * Perioperative Nursing Note - Tamiko Guy RN - 04/16/2024 10:19 AM EST PRE-PROCEDURE ROUNDING COMPLETE. 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); Spondylolisthesis, lumbar region (M43.16) Postprocedure Diagnosis: no change Staff: Staff Role Ulises Schilling MD Radiologist Giovanni Garcia, RT (R) [employer] Win Hackett [employer] Oliva Graff services mgr Nurse Description of procedure: fluoroscopically guided lumbar puncture for lumbar CT myelogram Estimated Blood Loss: Minimal Medications Medications (Filter: Administrations occurring from 2203 to 2203 on 04/16/24) As of 04/16/242203 None Specimens No specimens collected Findings: thecal sac accessed at the L3-L4 level Plan: routine postop care Complications: None Anesthesia: local See detailed result report with images in PACS. The patient tolerated the procedure well without incident or complication and is in stable condition. Ulises Schilling MD Interventional Radiology Pager: documented in this [facility]11-06-2024 NoteVital signs were monitored throughout the procedure. Patient tolerated the procedure well. Patient taken to CT for further imaging and then back to IR prep and recovery area.[facility]11-06-2024 Nurse Note* Oliva Graff RN - 04/16/2024 11:20 AM EST Vital signs were monitored throughout the procedure. Patient tolerated the procedure well. Patient taken to CT for further imaging and then back to IR prep and recovery area. [facility] [id number] Nurse Note* Oliva Graff RN - 04/16/2024 11:20 AM EST Vital signs were monitored throughout the procedure. Patient tolerated the procedure well. Patient taken to CT for further imaging and then back to IR prep and recovery area. * Oliva Graff RN - 04/16/2024 11:06 AM EST Patient arrived from the same day surgery department for a lumbosacral myelogram. Dr. Alex Schilling into speak with the patient regarding the procedure, and consent was obtained. Patient's lab values and allergies were reviewed. Patient was placed prone on exam table, prepped and draped in sterile fashion. Telemetry monitors were placed. * Sadie Gross RN - 04/16/2024 10:19 AM EST To IR for Myelogram. Consent for procedure obtained . Pt given time for questions and verbal feedback of her understanding received. Pt complaint of anxiety new orders given. documented in this [facility]11-06-2024 Nurse Note* Oliav Graff RN - 04/16/2024 11:06 AM EST Patient arrived from the same day surgery department for a lumbosacral myelogram. Dr. Alex Schilling into speak with the patient regarding the procedure, and consent was obtained. Patient's lab values and allergies were reviewed. Patient was placed prone on exam table, prepped and draped in sterile fashion. Telemetry monitors were placed. [place] [id number] NoteTo IR for Myelogram. Consent for procedure obtained . Pt given time for questions and verbal feedback of her understanding received. Pt complaint of anxiety new orders given.[facility]11-06-2024 Nurse Note* Sadie Gross RN - 04/16/2024 10:19 AM EST To IR for Myelogram. Consent for procedure obtained . Pt given time for questions and verbal feedback of her understanding received. Pt complaint of anxiety new orders given. [place] [id number] Note* Perioperative Nursing Note - Tamiko Guy RN - 04/16/2024 10:19 AM EST PRE-PROCEDURE ROUNDING COMPLETE. [address] [id number] Note* Perioperative Nursing Note - Tamiko Guy RN - 04/16/2024 10:19 AM EST PRE-PROCEDURE ROUNDING COMPLETE. 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); Spondylolisthesis, lumbar region (M43.16) Postprocedure Diagnosis: no change Staff: Staff Role Ulises Schilling MD Radiologist Giovanni Garcia, RT (R) [employer] Win Hackett [employer]er Oliva Graff, services mgr Nurse Description of procedure: fluoroscopically guided lumbar puncture for lumbar CT myelogram Estimated Blood Loss: Minimal Medications Medications (Filter: Administrations occurring from 2204 to 2204 on 04/16/24) As of 04/16/242203 None Specimens No specimens collected Findings: thecal sac accessed at the L3-L4 level Plan: routine postop care Complications: None Anesthesia: local See detailed result report with images in PACS. The patient tolerated the procedure well without incident or complication and is in stable condition. 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); Spondylolisthesis, lumbar region (M43.16) Postprocedure Diagnosis: no change Staff: Staff Role Ulises Schilling MD Radiologist Giovanni Garcia, (R) [employer] Electrical [employer]er Win Hackett [employer] Electrical Designer Oliva Graff, services mgr Nurse Description of procedure: fluoroscopically guided lumbar puncture for lumbar CT myelogram Estimated Blood Loss: Minimal Medications Medications (Filter: Administrations occurring from 2203 to 2203 on 04/16/24) As of 04/16/242203 None Specimens No specimens collected Findings: thecal sac accessed at the L3-L4 level Plan: routine postop care Complications: None Anesthesia: local See detailed result report with images in PACS. The patient tolerated the procedure well without incident or complication and is in stable condition. Ulises Schilling MD Interventional Radiology Pager: [place] Phone: 1(846) 266-961311-06-2024 [facility]10-28-2024 Note * Care Coordination - Alexandra Louise RN - 04/07/2024 10:44 AM EDT Left message with return number given. Reviewed arrival time at 0800 am to [facility] on 04/16/24, it is ok to have a light breakfast, and take medications other than those we discuss. There are several medications that cannot be taken for 48 hours prior to the myelogram and 24 hoursafter the procedure. Please call me to review your medication list to make sure that you are not taking any of the contraindicated medications for this procedure to be completed. You will need a family member or friend to drive you home after the procedure is completed. May notuse public transportation unless accompanied by a family member or friend. Directions given for Same Day Surgery which is located on the first floor. Follow signs around the hospital to Main Entrance which is located at [address] onto [address] from [facility]. You may use [employer]. Each patient to receive one validation ticket for [employer]. [facility] [id number] Miscellaneous Notes* Care Coordination - Alexandra Louise RN - 04/07/2024 10:44 AM EDT Left message with return number given. Reviewed arrival time at 0800 am to [facility] on 04/16/24, it is ok to have a light breakfast, and take medications other than those we discuss. There are several medications that cannot be taken for 48 hours prior to the myelogram and 24 hoursafter the procedure. Please call me to review your medication list to make sure that you are not taking any of the contraindicated medications for this procedure to be completed. You will need a family member or friend to drive you home after the procedure is completed. May notuse public transportation unless accompanied by a family member or friend. Directions given for Same Day Surgery which is located on the first floor. Follow signs around the hospital to Main Entrance which is located at [address] [facility] [address] [facility] onto [address] from [facility]. You may use [employer]. Each patient to receive one validation ticket for [employer]. documented in this [facility]10-28-2024 Telephone encounter Note* Telephone Encounter - Meron Borja MA - 04/07/2024 8:55 AM EDT Called pt and relayed message. Pt verbalized understanding and had no questions or concerns. [facility]10-28-2024 Miscellaneous Notes* Telephone Encounter - Meron Borja MA - 04/07/2024 8:55 AM EDT Called pt and relayed message. Pt verbalized understanding and had no questions or concerns. * Telephone Encounter - Meron Borja MA - 04/07/2024 8:54 AM EDT ----- Message from Verenice Roca MD sent at 04/05/2024 2:53 PM EDT ----- No acute findings on abd x ray documented in this encounterL[facility]10-28-2024 Telephone encounter Note * Telephone Encounter - Meron Borja MA - 04/07/2024 8:54 AM EDT ----- Message from Verenice Roca MD sent at 04/05/2024 2:53 PM EDT ----- No acute findings on abd x ray [facility]10-28-2024 Telephone encounter Note* Telephone Encounter - Meron Borja MA - 04/07/2024 8:54 AM EDT ERROR [facility]10-28-2024 Miscellaneous Notes* Telephone Encounter - Meron Borja MA - 04/07/2024 8:54 AM EDT ERROR documented in this encounterLake[facility]10-22-2024 History of Present illness Narrative* Efe Fuentes RT(R) - 04/01/2024 2:45 PM EDT Radiology Service Progress Note PATIENT NAME: Kathryn Tamez DATE OF SERVICE: April 01, 2024 TIME: 2:57 PM PATIENT IDENTITY VERIFICATION COMPLETED USING TWO (2) IDENTIFIERS: Name and Date of confirmedby patient verbally. FALL SCREENING: Has the patient had 2 falls in the last year or 1 fall with injury or currently using an Ambulatory Assistive Device (Walker, Cane, Wheelchair, Crutches, etc.)? No PATIENT GENDER DATA: Female. status: : No status: N/A PATIENT RELEVANT IMPLANT DATA REVIEWED: Not Applicable PATIENT PRESENTS WITH AN IMPLANTABLE OR ATTACHED JUNIOR PROJECT COORDINATOR: No RADIOLOGY DEPARTMENT: General X-ray: Exam(s) Completed: Chest X-Ray Abdomen X-Ray: Abdomen with Upright PERIPHERAL IV DATA: Not applicable SIGNED BY: RT Murali(R) April 01, 2024 2:57 PM documented in this encounterLake[facility]10-22-2024 NoteHNO ID: [id number] Author: EFE FUENTES RT(Ramiro) Service: Radiology Author Type: Technologist Type: Progress Notes Filed: 04/01/2024 14:58 Note Text: Radiology Service Progress Note PATIENT NAME: Kathryn Tamez DATE OF SERVICE: April 01, 2024 TIME: 2:57 PM PATIENT IDENTITY VERIFICATION COMPLETED USING TWO (2) IDENTIFIERS: Name and Date of confirmed by patient verbally. FALL SCREENING: Has the patient had 2 falls in the last year or 1 fall with injury or currently using an Ambulatory Assistive Device (Walker, Cane, Wheelchair, Crutches, etc.)? No PATIENT GENDER DATA: Female. status: : No status: N/A PATIENT RELEVANT IMPLANT DATA REVIEWED: Not Applicable PATIENT PRESENTS WITH AN IMPLANTABLE OR ATTACHED JUNIOR PROJECT COORDINATOR: No RADIOLOGY DEPARTMENT: General X-ray: Exam(s) Completed: Chest X-Ray Abdomen X-Ray: Abdomen with Upright PERIPHERAL IV DATA: Not applicable SIGNED BY: RT Murali(Ramiro) April 01, 2024 2:57 [facility]10-22-2024 NoteHNO ID: [id number] Author: VERENICE ROCA MD Service: ? Author Type: Physician Type: Progress Notes Filed: 04/01/2024 12:22 Note Text: Visit Date: April 01, 2024 Ms.Marjorie Edith Tamez Date of : 1940 MRN/E #: [id number] Chief Complaint: Patient presents with: Abdominal Pain: 2 solid bowel movements yesterday Gas: Bloating, pain Diarrhea: 3 straight days last week History of Present Illness Kathryn Tamez is a 83 year old female. Has been having some GI symptoms for probably over a year 2. Over the past couple of months has gotten worse. She says get bouts of loose stools and started taking Imodium. She she has increased her Imodium to 4 tablets at a time and takes it most days of the week. Usually she takes it 1 time a day but sometimes 2 or more times a day. He has diarrhea she has some liquid but with chunks of stool in and I told her that it is just loose bowel movements and she did not take Imodium and should not take that much Imodium. In between she seems to get constipated and bloated right now she is bloated last bowel movement was yesterday was a normal bowel movement. Time she takes the Imodium just to prevent her from having a loose bowel movement if she goes somewhere. Explained to her that she can cause more GI problems getting constipated them behind to get in some loose stools. She has a lot of bloating a lot of mild abdominal tenderness throughout. The x-ray of her abdomen. And see what that shows have her stop the Imodium. Have her try align as a probiotic and increasing the fiber in her diet to see if that gets her GI tract regulated. If symptoms get severe go to the ER but no more Imodium. Told her she is overdosing on Imodium and that may be triggering a lot of her problems of bloating and everything. PAST MEDICAL HISTORY Diagnosis Date Acquired hypothyroidism Acute gastritis Adjustment disorder with depressed mood Allergic rhinitis Alopecia Arthritis left knee replaced 3 times Atrophic vaginitis Basal cell carcinoma of nasolabial groove Chronic pain Chronic pelvic pain in female Constipation COPD (chronic obstructive pulmonary disease) (HCC) Depression Dysuria Epigastric pain Essential hypertension External ear conductive hearing loss Female stress incontinence Fibromyalgia Functional diarrhea Functional disorder of bladder Generalized abdominal pain H/O goiter s/p thyroidectomy Headache Hip pain History of fall History of kidney problems renal cell carcinoma Hyperkalemia Hyperlipidemia Impacted cerumen Incomplete emptying of bladder Incontinence of feces Increased frequency of urination Jaw pain Joint pain Leukocytosis Lumbar back pain Medication monitoring encounter Migraine with aura Mitral valve prolapse Muscle pain Muscle spasms of neck and/or neck Muscle weakness Must strain to pass urine Nausea and vomiting Neck pain Neoplasm of brain (HCC) Nocturia Obesity Osteoporosis Pain in lower limb Pain in wrist Painful urging to urinate Periumbilical pain Primary fibromyalgia syndrome Dr. Clay Primary malignant neoplasm of kidney (HCC) Refractory migraine with aura Restless legs Sleep deprivation Spasm of back muscles Temporomandibular joint disorder Tobacco dependence syndrome Tobacco use quit smoking in 11-15 Urinary incontinence, mixed Urinary tract infectious disease Viral gastroenteritis PAST SURGICAL HISTORY Procedure Laterality Date ANKLE SURGERY HX Right 2013 ankle ARTHRP KNE CONDYLEANDPLATU MEDIALANDLAT COMPARTMENTS Left X3 CHOLECYSTECTOMY COLONOSCOPY 08/05/2018 Dr. Guan (repeat in 10 years) HAND SURGERY HX Right 04/2022 KIDNEY SURGERY HX Left 2004 Removed- renal cell CA LEG SURGERY HX x6 PAST SURGICAL HISTORY OF 06/26/2015 Temporary Implant placed right hip for bladder control PAST SURGICAL HISTORY OF 07/02/2015 Permanent implant placed right hip for bladder control PAST SURGICAL HISTORY OF Left Hip fracture PAST SURGICAL HISTORY OF Left Broken Femur PAST SURGICAL HISTORY OF Right 07/26/2023 rt ring finger release THYROID SURGERY HX 2004 partial TOTAL ABDOMINAL HYSTERECT W/WO RMVL TUBE OVARY BSO Social History Tobacco Use Smoking status: Former Current packs/day: 0.00 Types: Cigarettes Start date: 08/18/1958 Quit date: 08/18/2018 Years since quittin.6 Smokeless tobacco: Never Tobacco comments: One pack of cigarettes every 3 weeks Vaping Use Vaping status: Never Used Substance Use Topics Alcohol use: No Comment: Rarely Drug use: No Family History Reviewed Including Cardiac Diseases, Psychiatric Diseases, AND Substance Abuse Problem: Cancer Relation: Father Age of Onset: (Not Specified) Problem: Hypertension Relation: Sister Age of Onset: (Not Specified) Problem: Stroke Relation: Sister Age of Onset: (Not Specified) Problem: (more content not included)...[facility]10-22-2024 History of Present illness Narrative* Verenice Roca MD - 04/01/2024 10:22 AM EDT Visit Date: April 01, 2024 Ms.Marjorie Edith Tamez Date of : 1940 MRN/E #: [id number] Chief Complaint: Patient presents with: Abdominal Pain: 2 solid bowel movements yesterday Gas: Bloating, pain Diarrhea: 3 straight days last week History of Present Illness Kathryn Tamez is a 83 year old female. Has been having some GI symptoms for probably over a year 2. Over the past couple of months has gotten worse. She says get bouts of loose stools and started taking Imodium. She she has increased her Imodium to 4 tablets at a time and takes it most days of the week. Usually she takes it 1 time a daybut sometimes 2 or more times a day. He has diarrhea she has some liquid but with chunks of stool in and I told her that it is just loose bowel movements and she did not take Imodium and should not take that much Imodium. In between she seems to get constipated and bloated right now she is bloated last bowel movement was yesterday was a normal bowel movement. Time she takes the Imodium just to pre vent her from having a loose bowel movement if she goes somewhere. Explained to her that she can cause more GI problems getting constipated them behind to get in some loose stools. She has a lot of bloating a lot of mild abdominal tenderness throughout. The x-ray of her abdomen. And see what that shows have her stop the Imodium. Have her try align as a probiotic and increasing the fiber in her diet to see if that gets her GI tract regulated. If symptoms get severe go to the ER but no more Imodium. Told her she is overdosing on Imodium and that may be triggering a lot of her problems of bloating and everything. PAST MEDICAL HISTORY Diagnosis Date Acquired hypothyroidism Acute gastritis Adjustment disorder with depressed mood Allergic rhinitis Alopecia Arthritis left knee replaced 3 times Atrophic vaginitis Basal cell carcinoma of nasolabial groove Chronic pain Chronic pelvic pain in female Constipation COPD (chronic obstructive pulmonary disease) (HCC) Depression Dysuria Epigastric pain Essential hypertension External ear conductive hearing loss Female stress incontinence Fibromyalgia Functional diarrhea Functional disorder of bladder Generalized abdominal pain H/O goiter s/p thyroidectomy Headache Hip pain History of fall History of kidney problems renal cell carcinoma Hyperkalemia Hyperlipidemia Impacted cerumen Incomplete emptying of bladder Incontinence of feces Increased frequency of urination Jaw pain Joint pain Leukocytosis Lumbar back pain Medication monitoring encounter Migraine with aura Mitral valve prolapse Muscle pain Muscle spasms of neck and/or neck Muscle weakness Must strain to pass urine Nausea and vomiting Neck pain Neoplasm of brain (HCC) Nocturia Obesity Osteoporosis Pain in lower limb Pain in wrist Painful urging to urinate Periumbilical pain Primary fibromyalgia syndrome Dr. Clay Primary malignant neoplasm of kidney (HCC) Refractory migraine with aura Restless legs Sleep deprivation Spasm of back muscles Temporomandibular joint disorder Tobacco dependence syndrome Tobacco use quit smoking in 11-15 Urinary incontinence, mixed Urinary tract infectious disease Viral gastroenteritis PAST SURGICAL HISTORY Procedure Laterality Date ANKLE SURGERY HX Right 2013 ankle ARTHRP KNE CONDYLE&PLATU MEDIAL&LAT COMPARTMENTS Left X3 CHOLECYSTECTOMY COLONOSCOPY 08/05/2018 Dr. Guan (repeat in 10 years) HAND SURGERY HX Right 04/2022 KIDNEY SURGERY HX Left 2003 Removed- renal cell CA LEG SURGERY HX x6 PAST SURGICAL HISTORY OF 06/26/2015 Temporary Implant placed right hip for bladder control PAST SURGICAL HISTORY OF 07/02/2015 Permanent implant placed right hip for bladder control PAST SURGICAL HISTORY OF Left Hip fracture PAST SURGICAL HISTORY OF Left Broken Femur PAST SURGICAL HISTORY OF Right 07/26/2023 rt ring finger release THYROID SURGERY HX 2003 partial TOTAL ABDOMINAL HYSTERECT W/WO RMVL TUBE OVARY BSO Social History Tobacco Use Smoking status: Former Current packs/day: 0.00 Types: Cigarettes Start date: 08/18/1958 Quit date: 08/18/2018 Years since quittin.6 Smokeless tobacco: Never Tobacco comments: One pack of cigarettes every 3 weeks Vaping Use Vaping status: Never Used Substance Use Topics Alcohol use: No Comment: Rarely Drug use: No Family History Reviewed Including Cardiac Diseases, Psychiatric Diseases, & Substance Abuse Problem: Cancer Relation: Father Age of Onset: (Not Specified) Problem: Hypertension Relation: Sister Age of Onset: (Not Specified) Problem: Stroke Relation: Sister Age of Onset: (Not Specified) Problem: Coronary Artery Disease Relation: Sister Age of Onset: (Not Specified) Problem: Diabetes Relation: Sister Age of Onset: (Not Specified) Problem: Leukemia Relation: Sister Age of Onset: (Not Specified) Problem: Colon Cancer Relation: No Family History Age of Onset: (Not Specified) ALLERGIES No Known Allergies Current Outpatient Medications Medication Sig levothyroxine (SYNTHROID) 88 mcg tablet take one tablet by mouth daily hydrOXYzine HCl (ATARAX) 10 mg tablet TAKE ONE TABLET BY MOUTH EVERY DAY AT BEDTIME NEEDED FOR ANXIETY sertraline (ZOLOFT) 100 mg tablet take two tablets by mouth once daily SUMAtriptan (IMITREX) 50 mg tablet Take 1 tablet (50 mg) by mouth as needed (at onset of headache. May repeat after 2 hours.). colestipol (COLESTID) 1 gram tablet Take 1 tablet by mouth two times a day. chlorzoxazone (PARAFON FORTE DSC) 500 mg tablet Take 1 tablet by mouth four times a day as needed. dicyclomine (BENTYL) 10 mg capsule Take 1 capsule by mouth three times daily as needed (for abdominal pain). denosumab (PROLIA) 60 mg/mL Inject 1 mL subcutaneously once every 6 months. gabapentin (NEURONTIN) 300 mg capsule Take 300 mg by mouth two times a day. Pain MGMT No current facility-administered medications for this visit. Review of Systems Review of Systems Constitutional: Negative for chills, diaphoresis, fever, malaise/fatigue and weight loss. HENT: Negative for congestion, ear discharge, ear pain, hearing loss, nosebleeds, sinus pain, sore throat and tinnitus. Eyes: Negative for blurred vision, discharge and redness. Respiratory: Negative for cough, hemoptysis, sputum production, shortness of breath, wheezing and stridor. Cardiovascular: Negative for chest pain, palpitations, orthopnea, claudication, leg swelling and PND. Gastrointestinal: Negative for abdominal pain, blood in stool, constipation, diarrhea (had loose stools off and on), heartburn, melena, nausea and vomiting. Genitourinary: Negative for dysuria, frequency and urgency. Musculoskeletal: Negative for back pain, falls, joint pain, myalgias and neck pain. Skin: Negative for itching and rash. Neurological: Negative for dizziness, tingling, tremors and headaches. Psychiatric/Behavioral: Negative for depression, hallucinations, memory loss, substance abuse and suicidal ideas. The patient is not nervous/anxious and does not have insomnia. BP 120/68 Pulse 72 Temp (Src) 96.9 (Temporal) Wt 109 lb (49.4kg) SpO2 96% Physical Exam Physical Exam Vitals reviewed. Constitutional: General: She is not in acute distress. Appearance: Normal appearance. She is not diaphoretic. HENT: Head: Normocephalic and atraumatic. Right Ear: External ear normal. There is no impacted cerumen. Left Ear: External ear normal. There is no impacted cerumen. Nose: Nose normal. No congestion or rhinorrhea. Eyes: General: No scleral icterus. Right eye: No discharge. Left eye: No discharge. Conjunctiva/sclera: Conjunctivae normal. Pupils: Pupils are equal, round, and reactive to light. Neck: Thyroid: No thyromegaly. Vascular: No carotid bruit. Trachea: No tracheal deviation. Cardiovascular: Rate and Rhythm: Normal rate and regular rhythm. Heart sounds: Normal heart sounds. No murmur heard. No friction rub. No gallop. Pulmonary: Effort: Pulmonary effort is normal. No respiratory distress. Breath sounds: Normal breath sounds. No stridor. No wheezing or rales. Chest: Chest wall: No tenderness. Abdominal: General: Bowel sounds are normal. There is no distension. Palpations: Abdomen is soft. Abdomen is not rigid. There is no mass. Tenderness: There is no abdominal tenderness. There is no guarding or rebound. Musculoskeletal: General: No swelling or tenderness. Normal range of motion. Cervical back: Normal range of motion and neck supple. No rigidity or tenderness. Lymphadenopathy: Cervical: No cervical adenopathy. Skin: General: Skin is warm and dry. Coloration: Skin is not jaundiced or pale. Findings: No erythema or rash. Neurological: General: No focal deficit present. Mental Status: She is alert and oriented to person, place, and time. Cranial Nerves: No cranial nerve deficit. Motor: No abnormal muscle tone. Coordination: Coordination normal. Deep Tendon Reflexes: Reflexes normal. Psychiatric: Mood and Affect: Mood and affect normal. Behavior: Behavior normal. Thought Content: Thought content normal. Cognition and Memory: Memory normal. Judgment: Judgment normal. ASSESSMENT/PLAN: 1. Generalized abdominal pain - ICD9: 789.07, ICD10: R10.84 - Begin treatment with Pepcid 20 mg BID - D/c immodium Align OTC Increase fiber in the diet 2. Continuous overuse of medication - ICD9: 305.91, ICD10: Z91.148 Using Imodium taking 4 tablets at a time taking most days of the week. Sometimes takes it twice a day or more. Discontinue the Imodium. Plan is in #1 Verenice Roca MD Discussed above plan with patient. Pt agreeable with above plan. [facility] Telephone encounter Note * Telephone Encounter - Shanna Brooks LPN - 03/17/2024 8:16 AM EDT Patient/Patient's Pharmacy is requesting the following refill. Patient's last appointment: 05/29/23. Next appointment: none . Requested Prescriptions Pending Prescriptions Disp Refills levothyroxine (SYNTHROID) 88 mcg tablet [Pharmacy Med Name: Levothyroxine Sodium Oral Tablet 88 MCG] 90 tablet 0 Sig: take one tablet by mouth daily Patient Phone numbers: [phone] (home) Request is for script(s) to be escript to pharmacy. Shanna Brooks LPN [facility]10-[facility] Miscellaneous Notes* Telephone Encounter - Shanna Brooks LPN - 03/17/2024 8:16 AM EDT Patient/Patient's Pharmacy is requesting the following refill. Patient's last appointment: 05/29/23. Next appointment: none . Requested Prescriptions Pending Prescriptions Disp Refills levothyroxine (SYNTHROID) 88 mcg tablet [Pharmacy Med Name: Levothyroxine Sodium Oral Tablet 88 MCG] 90 tablet 0 Sig: take one tablet by mouth daily Patient Phone numbers: [phone] (home) Request is for script(s) to be escript to pharmacy. Shanna Brooks LPN documented in this encounterL[facility]10-[facility] Telephone encounter Note * Telephone Encounter - Shanna Brooks LPN - 03/17/2024 8:09 AM EDT Patient/Patient's Pharmacy is requesting the following refill. Patient's last appointment: 05/29/23 Next appointment: none . Requested Prescriptions Pending Prescriptions Disp Refills hydrOXYzine HCl (ATARAX) 10 mg tablet [Pharmacy Med Name: hydrOXYzine HCl Oral Tablet 10 MG] 90 tablet 1 Sig: TAKE ONE TABLET BY MOUTH EVERY DAY AT BEDTIME NEEDED FOR ANXIETY Patient Phone numbers: [phone] (home) Request is for script(s) to be escript to pharmacy. Shanna Brooks LPN [facility]10[facility] Miscellaneous Notes* Telephone Encounter - Shanna Brooks LPN - 03/17/2024 8:09 AM EDT Patient/Patient's Pharmacy is requesting the following refill. Patient's last appointment: 05/29/23 Next appointment: none . Requested Prescriptions Pending Prescriptions Disp Refills hydrOXYzine HCl (ATARAX) 10 mg tablet [Pharmacy Med Name: hydrOXYzine HCl Oral Tablet 10 MG] 90 tablet 1 Sig: TAKE ONE TABLET BY MOUTH EVERY DAY AT BEDTIME NEEDED FOR ANXIETY Patient Phone numbers: [phone] (home) Request is for script(s) to be escript to pharmacy. Shanna Brooks LPN documented in this encounterLake[facility]09-06-2024 NoteHNO ID: [id number] Author: MELVIN DIAS LPN Service: ? Author Type: LICENSED NURSE Type: Progress Notes Filed: 02/15/2024 09:24 Note Text: Two Injections containing 1cc lidocaine and 1cc Celestone drawn up per physician order and given to [facility] 02-15-2024 History of Present illness Narrative* Melvin Dias LPN - 02/15/2024 9:12 AM EDT Two Injections containing 1cc lidocaine and 1cc Celestone drawn up per physician order and given toAmish Lynn LPN * Bharati Dumont Jr., MD - 02/15/2024 6:21 AM EDTAssociated Order(s): Small Joint Arthro/Inj: bilateral long MCP Post-Procedure Diagnose(s): Arthritis of finger of left hand; Arthritis of finger of right hand 02/15/2024 :1940 Kathryn Tamez HISTORY OF CHIEF COMPLAINT: Kathryn is seeing me as a follow up patient today. She is status post centralization extensor tendons right middle and ring fingers on 08/16/2023. She complains of bilateral hand pain and stiffness. She has pain at the right middle finger MCP joint. She also complains of left middle finger pain at the MCP joint. She denies any numbness or tingling, and otherwise has no c omplaints. PAST MEDICAL HISTORY No date: Acquired hypothyroidism No date: Acute gastritis No date: Adjustment disorder with depressed mood No date: Allergic rhinitis No date: Alopecia No date: Arthritis Comment: left knee replaced 3 times No date: Atrophic vaginitis No date: Basal cell carcinoma of nasolabial groove No date: Chronic pain No date: Chronic pelvic pain in female No date: Constipation No date: COPD (chronic obstructive pulmonary disease) ([facility]) No date: Depression No date: Dysuria No date: Epigastric pain No date: Essential hypertension No date: External ear conductive hearing loss No date: Female stress incontinence No date: Fibromyalgia No date: Functional diarrhea No date: Functional disorder of bladder No date: Generalized abdominal pain No date: H/O goiter Comment: s/p thyroidectomy No date: Headache No date: Hip pain No date: History of fall No date: History of kidney problems Comment: renal cell carcinoma No date: Hyperkalemia No date: Hyperlipidemia No date: Impacted cerumen No date: Incomplete emptying of bladder No date: Incontinence of feces No date: Increased frequency of urination No date: Jaw pain No date: Joint pain No date: Leukocytosis No date: Lumbar back pain No date: Medication monitoring encounter No date: Migraine with aura No date: Mitral valve prolapse No date: Muscle pain No date: Muscle spasms of neck Comment: and/or neck No date: Muscle weakness No date: Must strain to pass urine No date: Nausea and vomiting No date: Neck pain No date: Neoplasm of brain ([facility]) No date: Nocturia No date: Obesity No date: Osteoporosis No date: Pain in lower limb No date: Pain in wrist No date: Painful urging to urinate No date: Periumbilical pain No date: Primary fibromyalgia syndrome Comment: Dr. Clay No date: Primary malignant neoplasm of kidney ([facility]) No date: Refractory migraine with aura No date: Restless legs No date: Sleep deprivation No date: Spasm of back muscles No date: Temporomandibular joint disorder No date: Tobacco dependence syndrome No date: Tobacco use Comment: quit smoking in 04-25 No date: Urinary incontinence, mixed No date: Urinary tract infectious disease No date: Viral gastroenteritis PAST SURGICAL HISTORY 2013: ANKLE SURGERY HX; Right Comment: ankle No date: ARTHRP KNE CONDYLE&PLATU MEDIAL&LAT COMPARTMENTS; Left Comment: X3 No date: CHOLECYSTECTOMY 08/05/2018: COLONOSCOPY Comment: Dr. Guan (repeat in 10 years) No date: HAND SURGERY HX; Right Comment: 04/2022 2004: KIDNEY SURGERY HX; Left Comment: Removed- renal cell CA No date: LEG SURGERY HX Comment: x6 06/26/2015: PAST SURGICAL HISTORY OF Comment: Temporary Implant placed right hip for bladder control 07/02/2015: PAST SURGICAL HISTORY OF Comment: Permanent implant placed right hip for bladder control No date: PAST SURGICAL HISTORY OF; Left Comment: Hip fracture No date: PAST SURGICAL HISTORY OF; Left Comment: Broken Femur 07/26/2023: PAST SURGICAL HISTORY OF; Right Comment: rt ring finger release 2003: THYROID SURGERY HX Comment: partial No date: TOTAL ABDOMINAL HYSTERECT W/WO RMVL TUBE OVARY Comment: BSO Social History Tobacco Use Smoking status: Former Current packs/day: 0.00 Types: Cigarettes Start date: 08/18/1958 Quit date: 08/18/2018 Years since quittin.4 Smokeless tobacco: Never Tobacco comments: One pack of cigarettes every 3 weeks Vaping Use Vaping status: Never Used Substance Use Topics Alcohol use: No Comment: Rarely Drug use: No Medications: Current Outpatient Medications Medication Sig Dispense Refill hydrOXYzine HCl (ATARAX) 10 mg tablet TAKE ONE TABLET BY MOUTH EVERY DAY AT BEDTIME NEEDED FOR ANXIETY 90 tablet 0 sertraline (ZOLOFT) 100 mg tablet take two tablets by mouth once daily 180 tablet 0 levothyroxine (SYNTHROID) 88 mcg tablet take one tablet by mouth once daily 90 tablet 0 SUMAtriptan (IMITREX) 50 mg tablet Take 1 tablet (50 mg) by mouth as needed (at onset of headache. May repeat after 2 hours.). 9 tablet 1 colestipol (COLESTID) 1 gram tablet Take 1 tablet by mouth two times a day. 180 tablet 0 chlorzoxazone (PARAFON FORTE DSC) 500 mg tablet Take 1 tablet by mouth four times a day as needed. (Patient not taking: Reported on 02/01/2024) 30 tablet 0 dicyclomine (BENTYL) 10 mg capsule Take 1 capsule by mouth three times daily as needed (for abdominal pain). 60 capsule 1 denosumab (PROLIA) 60 mg/mL Inject 1 mL subcutaneously once every 6 months. 1 mL 2 gabapentin (NEURONTIN) 300 mg capsule Take 300 mg by mouth two times a day. Pain MGMT No current facility-administered medications for this visit. ALLERGIES No Known Allergies There were no vitals taken for this visit. PHYSICAL EXAMINATION: General: she is a well developed, well nourished female Psyche: she is alert and oriented and cooperative to our examination Skin: Skin condition is healthy without rashes or erythema. Cadiovascular: There is a palpable radial pulse and brisk cap refill distally. Neck: Supple with no JVD Lymph: There is no palpable epitrochlear Pulmonary: she has non labored breathing. There is no evidence of cyanosis. There is no clubbing ofhis fingernails. she has no pursed lips. Neuro: she is alert and oriented x3. There are no focal neurologic deficits. See sensation exam below. Head: Normocephalic and atraumatic Musculoskeletal: There is mild swelling over dorsal aspect of the middle finger MCP joint. There are no skin lacerations or abrasions. There are no Heberden's or Tiffanie's nodes. There is no boutonniere or swan-neck deformity of the fingers. There is no ulnar drift of the fingers. There is no intrinsic muscular atrophy. There is a negative shoulder sign over the thumb CMC joint. There is no dorsal subluxation of the ulnar head. She is very tender to palpation over the bilateral middle finger MCP joints. There is still ulnar deviation of the right middle finger at the MCP joint. ASSESSMENT: 1.Arthritis of finger of left hand 2.Arthritis of finger of right hand PLAN: I did discuss splinting, and injection, vs surgical intervention. The patient wants to proceed with steroid injections. I did offer a steroid injection in bilateral middle finger MCP joints. I explained the risks, benefits, and potential complications of injection. Patient understands that it may take 3-5 days before experiencing resolution of symptoms and agrees with the plan to proceed. All of the patients questions were answered to her satisfaction. I reviewed diagnosis with patient verbally. We discussed her treatment options in depth and established a course of treatment suited to her. I will see her back as needed. Small Joint Arthro/Inj: bilateral long MCP Informed Consent [place] Protocol A moment to CARE was completed. SIGN IN Personnel directly involved with the procedure wore the appropriate PPE. Patient/Surrogate Stated/Verified: Patient name, Date of , Relevant allergies and Intended procedure TIME OUT Relevant labs, photos, and/or imaging studies have been reviewed. Correct side/site marked and visible. Medications required for procedure verified. No implant(s) inserted. 02/15/2024 9:23 AM The procedure site was prepped in the usual sterile fashion. Medications (Right): 6 mg betamethasone acetate-betamethasone sodium phosphate 6 mg/mL Medications (Left): 6 mg betamethasone acetate-betamethasone sodium phosphate 6 mg/mL Anesthetics (Right): 1 mL lidocaine (PF) 10 mg/mL (1 %) Anesthetics (Left): 1 mL lidocaine (PF) 10 mg/mL (1 %) Outcome: tolerated well, no immediate complications Post-injection instructions were reviewed with the patient and the patient voiced understanding of these instructions. SIGN OUT All instruments, equipment, possible retained foreign bodies accounted for. Scribe Attestation: By signing my name below, I, Abena Mock MA, attest that this documentation has been prepared under the direction and in the presence of Bharati Dumont Jr., MD. Electronically Signed: Abena Mock MA, Scribe. February 15, 2024 9:09 AM. Clinician Attestation Statement: The information in this document, created by the biomedical photographer for me, accurately reflects the services I personally performed and the decisions made by me. I have reviewed and approved this document for accuracy. Bharati Dumont MD Please note: This note has been produced using speech recognition software and may contain errors related to that system including grammar, punctuation, spelling, gender and words and phrases that may be inappropriate. documented in this encounterL[facility]09-06-2024 NoteHNO ID: [id number] Author: BHARATI DUMONT JR, MD Service: ? Author Type: Physician Type: Progress Notes Filed: 02/15/2024 09:24 Note Text: 02/15/2024 :1940 Kathryn Tamez HISTORY OF CHIEF COMPLAINT: Kathryn is seeing me as a follow up patient today. She is status post centralization extensor tendons right middle and ring fingers on 08/16/2023. She complains of bilateral hand pain and stiffness. She has pain at the right middle finger MCP joint. She also complains of left middle finger pain at the MCP joint. She denies any numbness or tingling, and otherwise has no complaints. PAST MEDICAL HISTORY No date: Acquired hypothyroidism No date: Acute gastritis No date: Adjustment disorder with depressed mood No date: Allergic rhinitis No date: Alopecia No date: Arthritis Comment: left knee replaced 3 times No date: Atrophic vaginitis No date: Basal cell carcinoma of nasolabial groove No date: Chronic pain No date: Chronic pelvic pain in female No date: Constipation No date: COPD (chronic obstructive pulmonary disease) ([facility]) No date: Depression No date: Dysuria No date: Epigastric pain No date: Essential hypertension No date: External ear conductive hearing loss No date: Female stress incontinence No date: Fibromyalgia No date: Functional diarrhea No date: Functional disorder of bladder No date: Generalized abdominal pain No date: H/O goiter Comment: s/p thyroidectomy No date: Headache No date: Hip pain No date: History of fall No date: History of kidney problems Comment: renal cell carcinoma No date: Hyperkalemia No date: Hyperlipidemia No date: Impacted cerumen No date: Incomplete emptying of bladder No date: Incontinence of feces No date: Increased frequency of urination No date: Jaw pain No date: Joint pain No date: Leukocytosis No date: Lumbar back pain No date: Medication monitoring encounter No date: Migraine with aura No date: Mitral valve prolapse No date: Muscle pain No date: Muscle spasms of neck Comment: and/or neck No date: Muscle weakness No date: Must strain to pass urine No date: Nausea and vomiting No date: Neck pain No date: Neoplasm of brain ([facility]) No date: Nocturia No date: Obesity No date: Osteoporosis No date: Pain in lower limb No date: Pain in wrist No date: Painful urging to urinate No date: Periumbilical pain No date: Primary fibromyalgia syndrome Comment: Dr. Clay No date: Primary malignant neoplasm of kidney ([facility]) No date: Refractory migraine with aura No date: Restless legs No date: Sleep deprivation No date: Spasm of back muscles No date: Temporomandibular joint disorder No date: Tobacco dependence syndrome No date: Tobacco use Comment: quit smoking in 04-25 No date: Urinary incontinence, mixed No date: Urinary tract infectious disease No date: Viral gastroenteritis PAST SURGICAL HISTORY 2013: ANKLE SURGERY HX; Right Comment: ankle No date: ARTHRP KNE CONDYLEANDPLATU MEDIALANDLAT COMPARTMENTS; Left Comment: X3 No date: CHOLECYSTECTOMY 08/05/2018: COLONOSCOPY Comment: Dr. Guan (repeat in 10 years) No date: HAND SURGERY HX; Right Comment: 04/2022 2004: KIDNEY SURGERY HX; Left Comment: Removed- renal cell CA No date: LEG SURGERY HX Comment: x6 06/26/2015: PAST SURGICAL HISTORY OF Comment: Temporary Implant placed right hip for bladder control 07/02/2015: PAST SURGICAL HISTORY OF Comment: Permanent implant placed right hip for bladder control No date: PAST SURGICAL HISTORY OF; Left Comment: Hip fracture No date: PAST SURGICAL HISTORY OF; Left Comment: Broken Femur 07/26/2023: PAST SURGICAL HISTORY OF; Right Comment: rt ring finger release 2003: THYROID SURGERY HX Comment: partial No date: TOTAL ABDOMINAL HYSTERECT W/WO RMVL TUBE OVARY Comment: BSO Social History Tobacco Use Smoking status: Former Current packs/day: 0.00 Types: Cigarettes Start date: 08/18/1958 Quit date: 08/18/2018 Years since quittin.4 Smokeless tobacco: Never Tobacco comments: One pack of cigarettes every 3 weeks Vaping Use Vaping status: Never Used Substance Use Topics Alcohol use: No Comment: Rarely Drug use: No Medications: Current Outpatient Medications Medication Sig Dispense Refill hydrOXYzine HCl (ATARAX) 10 mg tablet TAKE ONE TABLET BY MOUTH EVERY DAY AT BEDTIME NEEDED FOR ANXIETY 90 tablet 0 sertraline (ZOLOFT) 100 mg tablet take two tablets by mouth once daily 180 tablet 0 levothyroxine (SYNTHROID) 88 mcg tablet take one tablet by mouth once daily 90 tablet 0 SUMAtriptan (IMITREX) 50 mg tablet Take 1 tablet (50 mg) by mouth as needed (at onset of headache. May repeat after 2 hours.). 9 tablet 1 colestipol (COLESTID) 1 gram tablet Take 1 tablet by mouth two times a day. 180 tablet 0 chlorzoxazone (PARAFON FORTE DSC) 500 mg tablet Take 1 tablet by mouth four times a day as needed. (Patient not t (more content not included)...[facility]08-23-2024 Instructions* Patient Instructions* Lyndon Miranda APRN.[employer] - 02/01/2024 10:52 AM EDT ASSESSMENT/PLAN: 1. Acute pain of left knee - ICD9: 719.46, ICD10: M25.562 (primary diagnosis) - XR KNEE GENERAL 4V AP BOTH/PA BOTH/LAT/MERC LEFT RESULT: Status post constrained LEFT total knee arthroplasty and patellectomy in satisfactory alignment and position. No periprosthetic lucency or fracture. IMPRESSION: LEFT total knee arthroplasty without apparent complication. Contamination Consultant: [facility]IGAIL Transcribe Date/Time: Feb 01 2024 10:24A Dictated by : NORMAN MONTOYA DO 2. Left ankle injury, initial encounter - ICD9: 959.7, ICD10: S99.912A - XR ANKLE GENERAL 3V AP/LAT/OBL LEFT RESULT: Generalized osteopenia. No acute fracture or dislocation. Mild talonavicular joint space narrowing. Ankle mortise is maintained. IMPRESSION: No acute osseous abnormality Contamination Consultant: [facility] Transcribe Date/Time: Feb 01 2024 10:43A Dictated by : TABITHA TATE MD - ALEXANDREA wrap applied to left ankle. - RICE therapy as directed. - Follow-up with your PCP in 3-5 days if symptoms have not improved or sooner if symptoms worsen - Discussed red flags and need for immediate medical evaluation if any occur. - Discussed supportive care treatment with fluids, rest and analgesia. - Discussed expected course of illness Lyndon Miranda APRN.[employer] R[employer] The general care of your injury includes the following: Resting, Icing, Compressing and Elevating the injured area. Remember this as RICE. REST: Limit the use of the injured body part. ICE: By applying ice to the affected area, swelling and pain can be reduced. Place some ice cubes in a re-sealable (Ziploc) bag and add some water. Put a thin washcloth between the bag and your skin.Apply the ice bag to the area for at least 20 minutes. Do this at least 4 times per day. Using the ice for longer times and more frequently is OK. NEVER APPLY ICE DIRECTLY TO THE SKIN. COMPRESS: Compression means to apply pressure around the injured area such as with a splint, cast or an alexandrea bandage. Compression decreases swelling and improves comfort. Compression should be tight enough to relieve swelling but not so tight as to decrease circulation. Increasing pain, numbness, tingling, or change in skin color, are all signs of decreased circulation. ELEVATE: Elevate the injured part. For example, elevate your foot by placing it on a chair while sitting, or propping it up on pillows when lying down. documented in this encounterL[facility]08-23-[facility]24 History of Present illness Narrative* Oliva Ribeiro RT(R) - 02/01/2024 9:50 AM EDT Radiology Service Progress Note PATIENT NAME: Kathryn Tamez DATE OF SERVICE: February 01, 2024 TIME: 9:59 AM PATIENT IDENTITY VERIFICATION COMPLETED USING TWO (2) IDENTIFIERS: Name and Date of confirmedby patient verbally. FALL SCREENING: Has the patient had 2 falls in the last year or 1 fall with injury or currently using an Ambulatory Assistive Device (Walker, Cane, Wheelchair, Crutches, etc.)? No PATIENT GENDER DATA: Female. status: : No status: NO. PATIENT RELEVANT IMPLANT DATA REVIEWED: Not Applicable PATIENT PRESENTS WITH AN IMPLANTABLE OR ATTACHED JUNIOR PROJECT COORDINATOR: No RADIOLOGY DEPARTMENT: General X-ray: Exam(s) Completed: Lower Extremity X- Ray(s): Knee, AP / Lat / Tunne / Merchant Left and Wt. Bearing and Ankle, Left and Wt. Bearing PERIPHERAL IV DATA: Not applicable SIGNED BY: RT Melody(R) February 01, 2024 9:59 AM documented in this encounterLakehealth [facility]08-23-2024 NoteHNO ID: [id number] Author: OLIVA RIBEIRO RT(R) Service: Radiology Author Type: Technologist Type: Progress Notes Filed: 02/01/2024 10:17 Note Text: Radiology Service Progress Note PATIENT NAME: Kathryn Tamez DATE OF SERVICE: February 01, 2024 TIME: 9:59 AM PATIENT IDENTITY VERIFICATION COMPLETED USING TWO (2) IDENTIFIERS: Name and Date of confirmed by patient verbally. FALL SCREENING: Has the patient had 2 falls in the last year or 1 fall with injury or currently using an Ambulatory Assistive Device (Walker, Cane, Wheelchair, Crutches, etc.)? No PATIENT GENDER DATA: Female. status: : No status: NO. PATIENT RELEVANT IMPLANT DATA REVIEWED: Not Applicable PATIENT PRESENTS WITH AN IMPLANTABLE OR ATTACHED JUNIOR PROJECT COORDINATOR: No RADIOLOGY DEPARTMENT: General X-ray: Exam(s) Completed: Lower Extremity X-Ray(s): Knee, AP / Lat / Tunne / Merchant Left and Wt. Bearing and Ankle, Left and Wt. Bearing PERIPHERAL IV DATA: Not applicable SIGNED BY: RT Melody(R) February 01, 2024 9:59 [facility]08-23-2024 NoteHNO ID: [id number] Author: LYNDON MIRANDA APRN.[employer] Service: ? Author Type: Nurse Practitioner Type: Progress Notes Filed: 02/01/2024 10:52 Note Text: Subjective Pain (foot) Pertinent negatives include no fever. Kathryn Tamez is a 83 year old female who presents with left ankle injury and left knee pain. She stepped on a rock and rolled her ankle. Since then has had pain and swelling in left ankle and pain in left knee. She has been keeping her ankle elevated which has helped the swelling go down. She rates her pain 7/10. She has not taken any medication for pain. Review of Systems Constitutional: Negative for chills and fever. Musculoskeletal: Positive for joint pain. Negative for falls. Skin: Negative for rash. BP 129/73 Pulse 66 Temp 36.2 ?C (97.2 ?F) Resp 20 Wt 54 kg (119 lb 0.8 oz) SpO2 97% BMI 23.25 kg/m? PAST MEDICAL HISTORY No date: Acquired hypothyroidism No date: Acute gastritis No date: Adjustment disorder with depressed mood No date: Allergic rhinitis No date: Alopecia No date: Arthritis Comment: left knee replaced 3 times No date: Atrophic vaginitis No date: Basal cell carcinoma of nasolabial groove No date: Chronic pain No date: Chronic pelvic pain in female No date: Constipation No date: COPD (chronic obstructive pulmonary disease) ([facility]) No date: Depression No date: Dysuria No date: Epigastric pain No date: Essential hypertension No date: External ear conductive hearing loss No date: Female stress incontinence No date: Fibromyalgia No date: Functional diarrhea No date: Functional disorder of bladder No date: Generalized abdominal pain No date: H/O goiter Comment: s/p thyroidectomy No date: Headache No date: Hip pain No date: History of fall No date: History of kidney problems Comment: renal cell carcinoma No date: Hyperkalemia No date: Hyperlipidemia No date: Impacted cerumen No date: Incomplete emptying of bladder No date: Incontinence of feces No date: Increased frequency of urination No date: Jaw pain No date: Joint pain No date: Leukocytosis No date: Lumbar back pain No date: Medication monitoring encounter No date: Migraine with aura No date: Mitral valve prolapse No date: Muscle pain No date: Muscle spasms of neck Comment: and/or neck No date: Muscle weakness No date: Must strain to pass urine No date: Nausea and vomiting No date: Neck pain No date: Neoplasm of brain ([facility]) No date: Nocturia No date: Obesity No date: Osteoporosis No date: Pain in lower limb No date: Pain in wrist No date: Painful urging to urinate No date: Periumbilical pain No date: Primary fibromyalgia syndrome Comment: Dr. Clay No date: Primary malignant neoplasm of kidney ([facility]) No date: Refractory migraine with aura No date: Restless legs No date: Sleep deprivation No date: Spasm of back muscles No date: Temporomandibular joint disorder No date: Tobacco dependence syndrome No date: Tobacco use Comment: quit smoking in 04-25 No date: Urinary incontinence, mixed No date: Urinary tract infectious disease No date: Viral gastroenteritis PAST SURGICAL HISTORY 2013: ANKLE SURGERY HX; Right Comment: ankle No date: ARTHRP KNE CONDYLEANDPLATU MEDIALANDLAT COMPARTMENTS; Left Comment: X3 No date: CHOLECYSTECTOMY 08/05/2018: COLONOSCOPY Comment: Dr. Guan (repeat in 10 years) No date: HAND SURGERY HX; Right Comment: 04/2022 2004: KIDNEY SURGERY HX; Left Comment: Removed- renal cell CA No date: LEG SURGERY HX Comment: x6 06/26/2015: PAST SURGICAL HISTORY OF Comment: Temporary Implant placed right hip for bladder control 07/02/2015: PAST SURGICAL HISTORY OF Comment: Permanent implant placed right hip for bladder control No date: PAST SURGICAL HISTORY OF; Left Comment: Hip fracture No date: PAST SURGICAL HISTORY OF; Left Comment: Broken Femur 07/26/2023: PAST SURGICAL HISTORY OF; Right Comment: rt ring finger release 2004: THYROID SURGERY HX Comment: partial No date: TOTAL ABDOMINAL HYSTERECT W/WO RMVL TUBE OVARY Comment: BSO ALLERGIES Patient has no known allergies. MEDICATIONS hydrOXYzine HCl (ATARAX) 10 mg tablet TAKE ONE TABLET BY MOUTH EVERY DAY AT BEDTIME NEEDED FOR ANXIETY sertraline (ZOLOFT) 100 mg tablet take two tablets by mouth once daily levothyroxine (SYNTHROID) 88 mcg tablet take one tablet by mouth once daily SUMAtriptan (IMITREX) 50 mg tablet Take 1 tablet (50 mg) by mouth as needed (at onset of headache. May repeat after 2 hours.). dicyclomine (BENTYL) 10 mg capsule Take 1 capsule by mouth three times daily as needed (for abdominal pain). denosumab (PROLIA) 60 mg/mL Inject 1 mL subcutaneously once every 6 months. gabapentin (NEURONTIN) 300 mg capsule Take 300 mg by mouth two times a day. Pain MGMT colestipol (COLESTID) 1 gram tablet Take 1 tablet by mouth two times a day. chlorzoxazone (PARAFON FORTE DSC) 500 (more content not included)...[facility]08-23-2024 History of Present illness Narrative* Lyndon Miranda APRN.[employer] - 02/01/2024 9:27 AM EDT Images from the original note were not included. Subjective Pain (foot) Pertinent negatives include no fever. Kathryn Tamez is a 83 year old female who presents with left ankle injury and left knee pain. She stepped on a rock and rolled her ankle. Since then has had pain and swelling in left ankle and pain in left knee. She has been keeping her ankle elevated which has helped the swelling go down. She rates her pain 7/10. She has not taken any medication for pain. Review of Systems Constitutional: Negative for chills and fever. Musculoskeletal: Positive for joint pain. Negative for falls. Skin: Negative for rash. BP 129/73 Pulse 66 Temp 36.2 C (97.2 F) Resp 20 Wt 54 kg (119 lb 0.8 oz) SpO2 97% BMI 23.25 kg/m PAST MEDICAL HISTORY No date: Acquired hypothyroidism No date: Acute gastritis No date: Adjustment disorder with depressed mood No date: Allergic rhinitis No date: Alopecia No date: Arthritis Comment: left knee replaced 3 times No date: Atrophic vaginitis No date: Basal cell carcinoma of nasolabial groove No date: Chronic pain No date: Chronic pelvic pain in female No date: Constipation No date: COPD (chronic obstructive pulmonary disease) ([facility]) No date: Depression No date: Dysuria No date: Epigastric pain No date: Essential hypertension No date: External ear conductive hearing loss No date: Female stress incontinence No date: Fibromyalgia No date: Functional diarrhea No date: Functional disorder of bladder No date: Generalized abdominal pain No date: H/O goiter Comment: s/p thyroidectomy No date: Headache No date: Hip pain No date: History of fall No date: History of kidney problems Comment: renal cell carcinoma No date: Hyperkalemia No date: Hyperlipidemia No date: Impacted cerumen No date: Incomplete emptying of bladder No date: Incontinence of feces No date: Increased frequency of urination No date: Jaw pain No date: Joint pain No date: Leukocytosis No date: Lumbar back pain No date: Medication monitoring encounter No date: Migraine with aura No date: Mitral valve prolapse No date: Muscle pain No date: Muscle spasms of neck Comment: and/or neck No date: Muscle weakness No date: Must strain to pass urine No date: Nausea and vomiting No date: Neck pain No date: Neoplasm of brain ([facility]) No date: Nocturia No date: Obesity No date: Osteoporosis No date: Pain in lower limb No date: Pain in wrist No date: Painful urging to urinate No date: Periumbilical pain No date: Primary fibromyalgia syndrome Comment: Dr. Clay No date: Primary malignant neoplasm of kidney ([facility]) No date: Refractory migraine with aura No date: Restless legs No date: Sleep deprivation No date: Spasm of back muscles No date: Temporomandibular joint disorder No date: Tobacco dependence syndrome No date: Tobacco use Comment: quit smoking in 04-25 No date: Urinary incontinence, mixed No date: Urinary tract infectious disease No date: Viral gastroenteritis PAST SURGICAL HISTORY 2013: ANKLE SURGERY HX; Right Comment: ankle No date: ARTHRP KNE CONDYLE&PLATU MEDIAL&LAT COMPARTMENTS; Left Comment: X3 No date: CHOLECYSTECTOMY 08/05/2018: COLONOSCOPY Comment: Dr. Guan (repeat in 10 years) No date: HAND SURGERY HX; Right Comment: 04/2022 2004: KIDNEY SURGERY HX; Left Comment: Removed- renal cell CA No date: LEG SURGERY HX Comment: x6 06/26/2015: PAST SURGICAL HISTORY OF Comment: Temporary Implant placed right hip for bladder control 07/02/2015: PAST SURGICAL HISTORY OF Comment: Permanent implant placed right hip for bladder control No date: PAST SURGICAL HISTORY OF; Left Comment: Hip fracture No date: PAST SURGICAL HISTORY OF; Left Comment: Broken Femur 07/26/2023: PAST SURGICAL HISTORY OF; Right Comment: rt ring finger release 2004: THYROID SURGERY HX Comment: partial No date: TOTAL ABDOMINAL HYSTERECT W/WO RMVL TUBE OVARY Comment: BSO ALLERGIES Patient has no known allergies. MEDICATIONS hydrOXYzine HCl (ATARAX) 10 mg tablet TAKE ONE TABLET BY MOUTH EVERY DAY AT BEDTIME NEEDED FOR ANXIETY sertraline (ZOLOFT) 100 mg tablet take two tablets by mouth once daily levothyroxine (SYNTHROID) 88 mcg tablet take one tablet by mouth once daily SUMAtriptan (IMITREX) 50 mg tablet Take 1 tablet (50 mg) by mouth as needed (at onset of headache. May repeat after 2 hours.). dicyclomine (BENTYL) 10 mg capsule Take 1 capsule by mouth three times daily as needed (for abdominal pain). denosumab (PROLIA) 60 mg/mL Inject 1 mL subcutaneously once every 6 months. gabapentin (NEURONTIN) 300 mg capsule Take 300 mg by mouth two times a day. Pain MGMT colestipol (COLESTID) 1 gram tablet Take 1 tablet by mouth two times a day. chlorzoxazone (PARAFON FORTE DSC) 500 mg tablet Take 1 tablet by mouth four times a day as needed. (Patient not taking: Reported on 02/01/2024) FAMILY HISTORY Problem Relation Age of Onset Cancer Father Hypertension Sister Stroke Sister Coronary Artery Disease Sister Diabetes Sister Leukemia Sister Colon Cancer No Family History Social History Tobacco Use Smoking status: Former Current packs/day: 0.00 Types: Cigarettes Start date: 08/18/1958 Quit date: 08/18/2018 Years since quittin.4 Smokeless tobacco: Never Tobacco comments: One pack of cigarettes every 3 weeks Vaping Use Vaping status: Never Used Substance Use Topics Alcohol use: No Comment: Rarely Drug use: No Objective Physical Exam Vitals and nursing note reviewed. Constitutional: Appearance: Normal appearance. Musculoskeletal: General: Swelling, tenderness and signs of injury present. No deformity. Left knee: No swelling, deformity, erythema, ecchymosis, bony tenderness or crepitus. Normal range of motion. Tenderness present. Left ankle: Swelling and ecchymosis present. No deformity. Tenderness present over the lateral malleolus. No medial malleolus tenderness. Decreased range of motion. Left Achilles Tendon: Normal. No tenderness or defects. Left foot: Normal. Legs: Feet: Skin: General: Skin is warm and dry. Findings: Bruising present. No erythema or rash. Neurological: Mental Status: She is alert. ASSESSMENT/PLAN: 1. Acute pain of left knee - ICD9: 719.46, ICD10: M25.562 (primary diagnosis) - XR KNEE GENERAL 4V AP BOTH/PA BOTH/LAT/MERC LEFT RESULT: Status post constrained LEFT total knee arthroplasty and patellectomy in satisfactory alignment and position. No periprosthetic lucency or fracture. IMPRESSION: LEFT total knee arthroplasty without apparent complication. Contamination Consultant: ABIGAIL Transcribe Date/Time: Feb 01 2024 10:24A Dictated by : NORMAN MONTOYA DO 2. Left ankle injury, initial encounter - ICD9: 959.7, ICD10: S99.912A - XR ANKLE GENERAL 3V AP/LAT/OBL LEFT RESULT: Generalized osteopenia. No acute fracture or dislocation. Mild talonavicular joint space narrowing. Ankle mortise is maintained. IMPRESSION: No acute osseous abnormality Contamination Consultant: ABIGAIL Transcribe Date/Time: Feb 01 2024 10:43A Dictated by : TABITHA TATE MD - ALEXANDREA wrap applied to left ankle. - RICE therapy as directed. - Follow-up with your PCP in 3-5 days if symptoms have not improved or sooner if symptoms worsen - Discussed red flags and need for immediate medical evaluation if any occur. - Discussed supportive care treatment with fluids, rest and analgesia. - Discussed expected course of illness Lyndon Miranda APRN.[employer] [facility] Telephone encounter Note * Telephone Encounter - Trent Rossi MA - 12/12/2023 12:56 PM EDT Pharmacy faxed requesting the following refill Refill(s) Requested: Requested Prescriptions Pending Prescriptions Disp Refills hydrOXYzine HCl (ATARAX) 10 mg tablet [Pharmacy Med Name: hydrOXYzine HCl Oral Tablet 10 MG] 90 tablet 0 Sig: TAKE ONE TABLET BY MOUTH EVERY DAY AT BEDTIME NEEDED FOR ANXIETY ALLERGIES No Known Allergies (home) [phone] (cell) Last Office Visit Date: 05/29/2023 Last [facility] Visit: Visit date not found Future Appointment: Visit date not found The patients preferred pharmacy has been captured for this encounter? yes Request is for script(s) to be escript to pharmacy. Trent Rossi MA [facility]07-03-2024 Miscellaneous Notes* Telephone Encounter - Trent Rossi MA - 12/12/2023 12:56 PM EDT Pharmacy faxed requesting the following refill Refill(s) Requested: Requested Prescriptions Pending Prescriptions Disp Refills hydrOXYzine HCl (ATARAX) 10 mg tablet [Pharmacy Med Name: hydrOXYzine HCl Oral Tablet 10 MG] 90 tablet 0 Sig: TAKE ONE TABLET BY MOUTH EVERY DAY AT BEDTIME NEEDED FOR ANXIETY ALLERGIES No Known Allergies (home) [phone] (cell) Last Office Visit Date: 05/29/2023 Last [facility] Visit: Visit date not found Future Appointment: Visit date not found The patients preferred pharmacy has been captured for this encounter? yes Request is for script(s) to be escript to pharmacy. Trent Rossi MA documented in this encounterL[facility]05-31-[facility] History of Present illness Narrative* Bharati Dumont Jr., MD - 11/09/2023 7:15 AM EDT Patient presents with: Right Hand - Established Patient, Follow Up, Pain: Electrical ping feeling PROCEDURE CENTRALIZATION EXTENSOR TENDONS RIGHT MIDDLE AND RING FINGERS (Right) 08/16/2023 HISTORY OF PRESENT ILLNESS Kathryn Tamez presents for post operative follow up 12 weeks from surgery. She is having pain in her fingers today. Current Concerns: pain, swelling Pain control:Well controlled Currently taking pain medication:No Fever, chills or other signs of infection: None PHYSICAL EXAMINATION No erythema, cellulitis or drainage Incision lines are intact, no drainage noted. Scars are maturing nicely ROM: near full Sensation:Normal sensation Brisk cap refill IMAGING No imaging obtained. 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 Pt education provided on lifting restrictions Patient was instructed to call the office with any questions and/or concerns Scribe Attestation: By signing my name below, I, Abena Mock MA, attest that this documentation has been prepared under the direction and in the presence of Bharati Dumont Jr., MD. Electronically Signed: Abena Mokc MA, Scribe. November 09, 2023 9:52 AM. Clinician Attestation Statement: The information in this document, created by the biomedical photographer for me, accurately reflects the services I personally performed and the decisions made by me. I have reviewed and approved this document for accuracy. Bharati Dumont MD Please note: This note has been produced using speech recognition software and may contain errors related to that system including grammar, punctuation, spelling, gender and words and phrases that may be inappropriate. documented in this encounterL[facility]05-08-[facility] History of Present illness Narrative* Emma Saucedo, OT/L - 10/17/2023 11:18 AM EDT Images from the original note were not included. Episode Visit Count: 7 Therapist That Will Accept/Oversee The Plan Of Care: Emma Saucedo MS, OT/L, CHT Start of Care Date: 08/21/23 Onset Date: 08/20/22 Plan of Care Certification Date: 08/21/23 Next Certification Due Date: 11/19/23 Patient Identified by Name and Date of : Yes REHABILITATION AND SPORTS THERAPY OCCUPATIONAL THERAPY PROGRESS REPORT PLAN OF CARE UPDATE: Assessment: Kathryn Tamez demonstrates significant improvement in AROM of the R hand. She has progressed toward goals. Patient continues to present with impairments in overall function, range of motion, strength, and tissue tenderness that interfere with gripping, pinching, twisting, pulling, pushing, carrying . Current prognosis is Good due to: current objective clinical presentation . She will benefit from continued skilled therapy services to meet the updated goals for this plan of care as noted below. PLAN FOR NEXT VISIT: Begin weaning pt from orthosis; initiate strengthening exercises as tolerated by pt Goal Medeiros A = Achieved PA = Partial Achievement NA = Not Achieved NT = Not Tested Goals updated 09/19/23; 10/17/23: Goals for Episode of Care created on 08/21/23 through 11/19/23 Patient will report a good understanding of diagnosis and OT recommendations for progression of program. A and ongoing 09/19/23; A and ongoing 10/17/23 Patient will demonstrate independence with ongoing home recommendations/exercise program throughout therapy plan of care. PA and ongoing 09/19/23; A and ongoing 10/17/23 Patient will report a decrease in pain in Right hand to 3/10 with prior functional tasks. PA and ongoing 09/19/23; PA and ongoing 10/17/23 Patient will independently demonstrate correct application of CUSTOM orthosis and verbalize understanding of proper wear/care. A 09/19/23 Splint discharged by doctor. Patient will report a good understanding of edema control, scar / wound management throughout therapy plan of care to promote non-adherent / non-tender soft tissue. A and ongoing 09/19/23; A 10/17/23 Patient will report a good understanding of the use of pain reducing modalities to help manage discomfort and promote healing. A and ongoing 09/19/23; A 10/17/23 Patient will independently demonstrate good joint protection/body mechanics/postural control techniques during prior functional tasks. A 09/19/23; A and ongoing 10/17/23 Patient Goals: Return to functional activities using both hands Patient Goals: Return to functional activities using both hands Planned Interventions, Frequency, and Duration: 1x/week, 8 weeks Total Number of Visits Planned: 8 Planned Treatment Interventions: Custom orthosis fabrication, Therapeutic activities (31599), Therapeutic exercise (49609), Manual therapy (43389), Self- mcfp management (69675), Fluidotherapy (60209) PLAN FOR NEXT VISIT: Begin weaning pt from orthosis; initiate strengthening exercises as tolerated by pt SUBJECTIVE: 7wks 5 days post centralization of extensor tendons in R hand Pt complains primarily of pain in the palm of the R hand. She states that when she is driving or mowing the lawn she has a lot of pain with pressure on her palm. Functional Limitations: gripping, pinching, twisting, pulling, pushing, carrying Pain: Pain Pain Level: 6 (pt states that pain is mostly in the palm of the hand) Pain Location: Hand - Right Description: Aching, Sore Frequency: Intermittent Post Treatment Pain Post Treatment Pain Level: No Change PROMIS Scales 10/17/2023 09/19/2023 08/21/2023 Higher is Better Phys Func - Score 40 (mild dysfunction) 39 (moderate dysfunction) 36 (moderate dysfunction) Phys Func - Percentile 16 14 8 Self-Eff Symptom - Score 42 (Average) 42 (Average) 32 (Low) Self-Eff Symptom - Percentile 21 21 4 T-scores: mean of general population = 50. 5 points is clinically meaningfully difference Percentiles provide an indication of how the patient's score ranks in relation to the general population. Higher percentile rankings indicate better function/quality of life. 50th percentile is the average of the general population and indicates half of respondents had a worse score. OBJECTIVE MEASURES WITH LEVEL OF FUNCTION: Hand Skin / Wound: Scar Scar: Tender Edema Location: R hand Edema Description: Mild (palm of hand) Wrist AROM: WFL Right Hand AROM: WFL Thumb AROM: WFL Strength: (testing not indicated) Sensation: Denies tingling or numbness Dexterity/Coordination: Observed to be functional UE AROM Right Hand AROM: WFL Thumb AROM: WFL Hand AROM R Index Finger MP Extension: 0 Degrees R Index Finger MP Flexion: 95 Degrees R Index Finger PIP Extension : 0 Degrees R Index Finger PIP Flexion: 100 Degrees R Index Finger DIP Extension : 0 Degrees R Index Finger DIP Flexion: 57 Degrees Right Index Finger Total Active Movement: 252 R Middle Finger MP Extension : 0 Degrees R Middle Finger MP Flexion : 94 Degrees R Middle Finger PIP Extension: 0 Degrees R Middle Finger PIP Flexion : 105 Degrees R Middle Finger DIP Extension : 0 Degrees R Middle Finger DIP Flexion : 65 Degrees Right Middle Finger Total Active Movement: 264 R Ring Finger MP Extension : 0 Degrees R Ring Finger MP Flexion : 86 Degrees R Ring Finger PIP Extension: 0 Degrees R Ring Finger PIP Flexion : 102 Degrees R Ring Finger DIP Extension: 0 Degrees R Ring Finger DIP Flexion : 65 Degrees Right Ring Finger Total Active Movement: 253 R Little Finger MP Extension : 0 Degrees R Little Finger MP Flexion : 87 Degrees R Little Finger PIP Extension : 0 Degrees R Little Finger PIP Flexion : 98 Degrees R Little Finger DIP Extension : 0 Degrees R Little Finger DIP Flexion : 48 Degrees Right Little Finger Total Active Movement: 233 TREATMENT: Therapeutic Exercise: 1: Pt performed AROM finger flexion/extension; performed 2 sets of 10 in therapy and reports compliance at home 2: Pt performed MP flexion/extension with IP joints in extension; performed 2 sets of 10 in therapyand reports compliance at home 3: Fine motor tasks performed; pt reports compliance with HEP of light functional tasks Skilled Intervention: Reviewed and educated patient on additions/changes for home exercise program as above (*). Manual Therapy: 1: Scar mobilization provided to pt 2: Desensitization exercises reviewed with pt; desensitization with vibration and textured materials performed Skilled Intervention: Manual skills to improve joint mobility, ROM, and decrease pain. Utilized anatomy knowledge of the therapist, and assessment of patient's response to intervention. Billing Therapeutic Exercise Treatment Minutes: 39 Manual Therapy Treatment Minutes: 20 Skilled Treatment Time Minutes (timed and untimed codes): 59 Total Session Time (minutes): 59 Session Start Time : 1115 Session Stop Time : 1214 Emma Saucedo MS, OT/Naun, CHT documented in this encounterL[facility]04-16-2024 History of Present illness Narrative* Anupama Frye S/OT - 09/25/2023 1:45 PM EDT Episode Visit Count: 6 Therapist That Will Accept/Oversee The Plan Of Care: JASON Dasilva Start of Care Date: 08/21/23 Onset Date: 08/20/22 Plan of Care Certification Date: 08/21/23 Next Certification Due Date: 11/19/23 Patient Identified by Name and Date of : Yes REHABILITATION AND SPORTS THERAPY OCCUPATIONAL THERAPY TREATMENT NOTE ASSESSMENT: Kathryn Tamez tolerated the session with no issues. She demonstrated difficulty with R hand ROM. The patient will continue to benefit from ongoing skilled occupational therapy to continue with post-operative protocol. Current Frequency: 1x/week Duration: 8 weeks Total Number of Visits Planned: 8 Planned Treatment Interventions: Custom orthosis fabrication, Therapeutic activities (88872), Therapeutic exercise (37194), Manual therapy (99803), Self- mcfp management (87410), Fluidotherapy (76991) PLAN FOR NEXT VISIT: Adjust orthosis for comfort; progress AROM per protocol SUBJECTIVE: 6 wks post centralization of extensor tendons in R hand Pt claims that she is taking it easy and is compliant in performing her exercises. Functional Limitations: gripping, pinching, twisting, pulling, pushing, carrying Pain: Pain Pain Level: 4 Pain Location: Hand - Right Description: Aching Frequency: Intermittent Post Treatment Pain Post Treatment Pain Level: No Change OBJECTIVE MEASURES WITH LEVEL OF FUNCTION: Hand Skin / Wound: Scar Scar: Tender, Mild adherance Edema Location: R hand Edema Description: Mild Wrist AROM: WFL Right Hand AROM: All Digits Thumb AROM: WFL Strength: (testing not indicated) Sensation: Denies tingling or numbness Dexterity/Coordination: Observed to be functional (fine motor skills improving) UE AROM Right Hand AROM: All Digits Thumb AROM: WFL Hand AROM R Index Finger MP Extension: 0 Degrees R Index Finger MP Flexion: 67 Degrees R Index Finger PIP Extension : 0 Degrees R Index Finger PIP Flexion: 89 Degrees R Index Finger DIP Extension : 0 Degrees R Index Finger DIP Flexion: 55 Degrees Right Index Finger Total Active Movement: 211 R Middle Finger MP Extension : -11 Degrees R Middle Finger MP Flexion : 81 Degrees R Middle Finger PIP Extension: 0 Degrees R Middle Finger PIP Flexion : 86 Degrees R Middle Finger DIP Extension : 0 Degrees R Middle Finger DIP Flexion : 45 Degrees Right Middle Finger Total Active Movement: 201 R Ring Finger MP Extension : 0 Degrees R Ring Finger MP Flexion : 77 Degrees R Ring Finger PIP Extension: 0 Degrees R Ring Finger PIP Flexion : 90 Degrees R Ring Finger DIP Extension: 0 Degrees R Ring Finger DIP Flexion : 50 Degrees Right Ring Finger Total Active Movement: 217 R Little Finger MP Extension : 0 Degrees R Little Finger MP Flexion : 70 Degrees R Little Finger PIP Extension : 0 Degrees R Little Finger PIP Flexion : 83 Degrees R Little Finger DIP Extension : 0 Degrees R Little Finger DIP Flexion : 40 Degrees Right Little Finger Total Active Movement: 193 TREATMENT: Therapeutic Exercise: 1: Pt performed AROM finger flexion/extension; performed 2 sets of 10 in therapy and reports compliance at home 2: Pt performed MP flexion/extension with IP joints in extension; performed 2 sets of 10 in therapyand reports compliance at home 3: Instructed pt in light resistive grasping activity; pt picked up sponge with thumb and each finger x10; pt provided with sponges and instructed to perform at home 4: Pt strung/unstrung beads of various shapes using L hand tip pinch x15 5: Pt twisted bolt onto screw using L hand x5 Skilled Intervention: Patient was educated in proper exercise technique and purpose for exercises. Skilled judgment was used in selection of appropriate interventions. Manual Therapy: 1: Pt provided with scar massage and retrograde massage to R wrist/hand Skilled Intervention: Manual skills to improve joint mobility, ROM, and decrease pain. Utilized anatomy knowledge of the therapist, and assessment of patient's response to intervention. Self-Fdc Management: 1: Reviewed/educated on POC and diagnosis Skilled Intervention: Reviewed patient specific diagnosis in relation to activities of daily living/home management. Billing Therapeutic Exercise Treatment Minutes: 19 Manual Therapy Treatment Minutes: 10 Self-Care/Home Management Treatment Minutes: 10 Skilled Treatment Time Minutes (timed and untimed codes): 39 Total Session Time (minutes): 39 Session Start Time : 1306 Session Stop Time : 1345 JASON Dasilva Supervising therapist was present and guided the care of the patient for the entire session on thisdate. All documentation was reviewed and agreed upon. Emma Saucedo MS, OT/L, CHT documented in this encounterL[facility] History of Present illness Narrative* Emma Saucedo OT/Naun - 09/19/2023 2:23 PM EDT Images from the original note were not included. Episode Visit Count: 5 Therapist That Will Accept/Oversee The Plan Of Care: JASON Dasilva Start of Care Date: 08/21/23 Onset Date: 08/20/22 Plan of Care Certification Date: 08/21/23 Next Certification Due Date: 11/19/23 Patient Identified by Name and Date of : Yes REHABILITATION AND SPORTS THERAPY OCCUPATIONAL THERAPY PROGRESS REPORT PLAN OF CARE UPDATE: Assessment: Kathryn Tamez demonstrates significant improvement in mobility and functional use of hand . She has progressed toward goals. Patient continues to present with impairments in overall function, range of motion, strength, and tissue tenderness that interfere with gripping, pinching,twisting, pulling, pushing, carrying . Current prognosis is Good due to: current objective clinicalpresentation . She will benefit from continued skilled therapy services to meet the updated goals for this plan of care as noted below. PLAN FOR NEXT VISIT: Adjust orthosis for comfort; progress AROM per protocol Goal Medeiros A = Achieved PA = Partial Achievement NA = Not Achieved NT = Not Tested Goals updated 09/19/23: Goals for Episode of Care created on 08/21/23 through 11/19/23 Patient will report a good understanding of diagnosis and OT recommendations for progression of program. A and ongoing 09/19/23 Patient will demonstrate independence with ongoing home recommendations/exercise program throughout therapy plan of care. PA and ongoing 09/19/23 Patient will report a decrease in pain in Right hand to 3/10 with prior functional tasks. PA and ongoing 09/19/23 Patient will independently demonstrate correct application of CUSTOM orthosis and verbalize understanding of proper wear/care. A 09/19/23 Splint discharged by doctor. Patient will report a good understanding of edema control, scar / wound management throughout therapy plan of care to promote non-adherent / non-tender soft tissue. A and ongoing 09/19/23 Patient will report a good understanding of the use of pain reducing modalities to help manage discomfort and promote healing. A and ongoing 09/19/23 Patient will independently demonstrate good joint protection/body mechanics/postural control techniques during prior functional tasks. A 09/19/23 Patient Goals: Return to functional activities using both hands Patient Goals: Return to functional activities using both hands Planned Interventions, Frequency, and Duration: 1x/week, 8 weeks Total Number of Visits Planned: 8 Planned Treatment Interventions: Custom orthosis fabrication, Therapeutic activities (15290), Therapeutic exercise (65510), Manual therapy (57242), Self- mcfp management (82722), Fluidotherapy (51815) PLAN FOR NEXT VISIT: Adjust orthosis for comfort; progress AROM per protocol SUBJECTIVE: 5 wks post centralization of extensor tendons in R hand Pt states that her splint has been discharged by her doctor. Pt is to lightly use hand. Functional Limitations: gripping, pinching, twisting, pulling, pushing, carrying Pain: Pain Pain Level: 4 Pain Location: Hand - Right Description: Aching Frequency: Intermittent Post Treatment Pain Post Treatment Pain Level: No Change PROMIS Scales 09/19/2023 08/21/2023 Higher is Better Phys Func - Score 39 (moderate dysfunction) 36 (moderate dysfunction) Phys Func - Percentile 14 8 Self-Eff Symptom - Score 42 (Average) 32 (Low) Self-Eff Symptom - Percentile 21 4 T-scores: mean of general population = 50. 5 points is clinically meaningfully difference Percentiles provide an indication of how the patient's score ranks in relation to the general population. Higher percentile rankings indicate better function/quality of life. 50th percentile is the average of the general population and indicates half of respondents had a worse score. OBJECTIVE MEASURES WITH LEVEL OF FUNCTION: Hand Skin / Wound: Scar Scar: Tender, Mild adherance Edema Location: R hand Edema Description: Mild Wrist AROM: WFL Right Hand AROM: All Digits Thumb AROM: WFL Strength: (testing not indicated) Sensation: Denies tingling or numbness Dexterity/Coordination: Observed to be functional (fine motor skills improving) UE AROM Right Hand AROM: All Digits Thumb AROM: WFL Hand AROM R Index Finger MP Extension: 0 Degrees R Index Finger MP Flexion: 80 Degrees R Index Finger PIP Extension : 0 Degrees R Index Finger PIP Flexion: 92 Degrees R Index Finger DIP Extension : 0 Degrees R Index Finger DIP Flexion: 48 Degrees Right Index Finger Total Active Movement: 220 R Middle Finger MP Extension : -26 Degrees R Middle Finger MP Flexion : 80 Degrees R Middle Finger PIP Extension: 0 Degrees R Middle Finger PIP Flexion : 84 Degrees R Middle Finger DIP Extension : 0 Degrees R Middle Finger DIP Flexion : 45 Degrees Right Middle Finger Total Active Movement: 183 R Ring Finger MP Extension : 0 Degrees R Ring Finger MP Flexion : 75 Degrees R Ring Finger PIP Extension: 0 Degrees R Ring Finger PIP Flexion : 96 Degrees R Ring Finger DIP Extension: 0 Degrees R Ring Finger DIP Flexion : 49 Degrees Right Ring Finger Total Active Movement: 220 R Little Finger MP Extension : 0 Degrees R Little Finger MP Flexion : 84 Degrees R Little Finger PIP Extension : 0 Degrees R Little Finger PIP Flexion : 91 Degrees R Little Finger DIP Extension : 0 Degrees R Little Finger DIP Flexion : 39 Degrees Right Little Finger Total Active Movement: 214 TREATMENT: Therapeutic Exercise: 1: AROM finger flexion/extension 2: MP flexion/extension with IP joints in extension Skilled Intervention: Reviewed and educated patient on additions/changes for home exercise program as above (*). Self-Fdc Management: 1: Reviewed pain/edema mgmt 2: Reviewed scar massage and desensitization Skilled Intervention: Educated the patient regarding recommendations and provided written instruction to facilitate compliance. Billing Therapeutic Exercise Treatment Minutes: 25 Self-Care/Home Management Treatment Minutes: 15 Skilled Treatment Time Minutes (timed and untimed codes): 40 Total Session Time (minutes): 40 Session Start Time : 1410 Session Stop Time : 1450 Emma Saucedo MS, OT/L, CHT documented in this encounterL[facility]04-10-[facility] History of Present illness Narrative* Bharati Dumont Jr., MD - 09/19/2023 6:44 AM EDT Patient presents with: Right Hand - Established Patient, Follow Up, Post Op, Pain PROCEDURE CENTRALIZATION EXTENSOR TENDONS RIGHT MIDDLE AND RING FINGERS (Right) 08/16/2023 HISTORY OF PRESENT ILLNESS Kathryn Tamez presents for post operative follow up 5 weeks from surgery. She is doing well today. She is wearing her splint. Current Concerns: None Pain control:Well controlled Currently taking pain medication:No Fever, chills or other signs of infection: None PHYSICAL EXAMINATION No erythema, cellulitis or drainage Incision lines are intact, no drainage noted. Scars are maturing nicely ROM: near full Sensation:Normal sensation Brisk cap refill IMAGING No imaging obtained. 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 I will see her back in 6 weeks. Pt education provided on lifting restrictions Patient was instructed to call the office with any questions and/or concerns Scribe Attestation: By signing my name below, I, Abena Mock MA, attest that this documentation has been prepared under the direction and in the presence of Bharati Dumont Jr., MD. Electronically Signed: Abena Mock MA, Scribe. September 19, 2023 1:53 PM. Clinician Attestation Statement: The information in this document, created by the biomedical photographer for me, accurately reflects the services I personally performed and the decisions made by me. I have reviewed and approved this document for accuracy. Bharati Dumont MD Please note: This note has been produced using speech recognition software and may contain errors related to that system including grammar, punctuation, spelling, gender and words and phrases that may be inappropriate. documented in this encounterL[facility]04-03-[facility] History of Present illness Narrative* Anupama Frye S/OT - 09/12/2023 3:46 PM EDT Episode Visit Count: 4 Therapist That Will Accept/Oversee The Plan Of Care: JASON Dasilva Start of Care Date: 08/21/23 Onset Date: 08/20/22 Plan of Care Certification Date: 08/21/23 Next Certification Due Date: 11/19/23 Patient Identified by Name and Date of : Yes REHABILITATION AND SPORTS THERAPY OCCUPATIONAL THERAPY TREATMENT NOTE ASSESSMENT: Kathryn Tamez tolerated the session with no issues. She demonstrated difficulty with R hand ROM. The patient will continue to benefit from ongoing skilled occupational therapy to continue with post-operative protocol. Current Frequency: 1x/week Duration: 8 weeks Total Number of Visits Planned: 8 Planned Treatment Interventions: Custom orthosis fabrication, Therapeutic activities (75289), Therapeutic exercise (10415), Manual therapy (29700), Self- mcfp management (64069), Fluidotherapy (99510) PLAN FOR NEXT VISIT: Adjust orthosis for comfort; progress AROM per protocol SUBJECTIVE: 4 wks post centralization of extensor tendons in R hand Pt shared that the dynamic splint has caused some discomfort while performing her exercises. She states she has been compliant with her HEP. Functional Limitations: gripping, pinching, twisting, pulling, pushing, carrying Pain: Pain Pain Level: 4 Pain Location: Hand - Right Description: Aching, Sore Frequency: Intermittent Post Treatment Pain Post Treatment Pain Level: No Change OBJECTIVE MEASURES WITH LEVEL OF FUNCTION: Hand Skin / Wound: Scar Scar: Tender, Mild adherance Edema Location: R hand Edema Description: Mild Wrist AROM: Right Limitation Right Hand AROM: All Digits, DPC Measurement Thumb AROM: WFL Strength: (testing not indicated) Sensation: Denies tingling or numbness Dexterity/Coordination: Not Tested UE AROM Right Hand AROM: All Digits, DPC Measurement Thumb AROM: WFL TREATMENT: Therapeutic Exercise: 1: Reviewed AROM finger flexion/extension; pt performed in therapy and reports compliance with HEP;pt instructed to focus on keeping fingers straight/aligned during exercise Skilled Intervention: Patient was educated in proper exercise technique and purpose for exercises. Skilled judgment was used in selection of appropriate interventions. Manual Therapy: 1: Pt provided with scar massage; pt reports compliance at home Skilled Intervention: Manual skills to improve joint mobility, ROM, and decrease pain. Utilized anatomy knowledge of the therapist, and assessment of patient's response to intervention. Self-Fdc Management: 2: Pt instructed in how to don/doff dynamic splint. Pt practiced in therapy and reports understanding. Pt instructed that she can use dynamic splint during exercises if she wants but is not required to do so, if she keeps her finger alignment straight during exercise Skilled Intervention: Reviewed patient specific diagnosis in relation to activities of daily living/home management. Activity progression based on professional judgement. Billing Therapeutic Exercise Treatment Minutes: 20 Manual Therapy Treatment Minutes: 11 Self-Care/Home Management Treatment Minutes: 20 Skilled Treatment Time Minutes (timed and untimed codes): 51 Total Session Time (minutes): 51 Session Start Time : 1538 Session Stop Time : 1629 JASON Dasilva Supervising therapist was present and guided the care of the patient for the entire session on thisdate. All documentation was reviewed and agreed upon. Emma Saucedo MS, OT/L, CHT documented in this encounterLake[facility]03-20-20[facility] History of Present illness Narrative* Emma Saucedo OT/L - 08/29/2023 11:21 AM EDT Episode Visit Count: 2 Therapist That Will Accept/Oversee The Plan Of Care: JASON Dasilva Start of Care Date: 08/21/23 Onset Date: 08/20/22 Plan of Care Certification Date: 08/21/23 Next Certification Due Date: 11/19/23 Patient Identified by Name and Date of : Yes REHABILITATION AND SPORTS THERAPY OCCUPATIONAL THERAPY TREATMENT NOTE ASSESSMENT: Kathryn Tamez tolerated the session with expected soreness. She demonstrated improvements in AROM and management of pain/edema symptoms. The patient will continue to benefit from ongoing skilled occupational therapy to progress toward set goals. Current Frequency: 1x/week Duration: 8 weeks Total Number of Visits Planned: 8 Planned Treatment Interventions: Custom orthosis fabrication, Therapeutic activities (90945), Therapeutic exercise (72819), Manual therapy (37000), Self- mcfp management (81964), Fluidotherapy (86099) PLAN FOR NEXT VISIT: Adjust orthosis for comfort; progress AROM per protocol SUBJECTIVE: 2 wks post centralization of extensor tendons in R hand Pt reports compliance with splint wear and with AROM of digits as instructed in therapy. Functional Limitations: gripping, pinching, twisting, pulling, pushing, carrying Pain: Pain Pain Level: 7 Pain Location: Hand - Right Description: Aching Frequency: Intermittent Post Treatment Pain Post Treatment Pain Level: No Change OBJECTIVE MEASURES WITH LEVEL OF FUNCTION: Hand Skin / Wound: Sutures Sutures: absorbable Edema Location: R hand Edema Description: Mild Wrist AROM: Right Limitation Right Hand AROM: All Digits, DPC Measurement Thumb AROM: WFL Strength: (testing not indicated) Sensation: Denies tingling or numbness Dexterity/Coordination: Not Tested UE AROM R Forearm Supination: 60 Degrees R Forearm Pronation: 75 Degrees R Wrist Extension: 25 Degrees R Wrist Flexion: 30 Degrees Right Hand AROM: All Digits, DPC Measurement Thumb AROM: WFL Hand AROM R Index Finger MP Extension: -20 Degrees R Index Finger MP Flexion: 65 Degrees R Middle Finger MP Extension : -18 Degrees R Middle Finger MP Flexion : 60 Degrees R Ring Finger MP Extension : -5 Degrees R Ring Finger MP Flexion : 57 Degrees R Little Finger MP Extension : 0 Degrees R Little Finger MP Flexion : 60 Degrees TREATMENT: Therapeutic Exercise: 1: Measurements taken and recorded 2: AROM PIP and DIP joints with splint on; pt encouraged to fully extend digits as much as possible Skilled Intervention: Reviewed and educated patient on additions/changes for home exercise program as above (*). Manual Therapy: 1: Patient instructed in gentle scar mobilization; pt practiced in therapy and agrees to incorporate into her HEP 2: Pt provided with compression sleeve for pain/edema mgmt Skilled Intervention: Manual skills to improve joint mobility, ROM, and decrease pain. Utilized anatomy knowledge of the therapist, and assessment of patient's response to intervention. Self-Fdc Management: 3: Reviewed pain/edema management; pt to elevate RUE to aid in decreasing swelling 4: Pt instructed in R hand AROM flex/ext of PIP/DIP joints while hand is in orthosis; pt instructedto perform at home every hour for 10 min 5: Reviewed wearing schedule and movement precautions; pt to wear orthosis at all times with the exception of hygiene. No use of hand without orthosis in place. Skilled Intervention: Activity progression based on professional judgement. Reviewed and educated patient on additions/changes for home program as noted above with an (*). Billing Therapeutic Exercise Treatment Minutes: 20 Manual Therapy Treatment Minutes: 6 Self-Care/Home Management Treatment Minutes: 10 Skilled Treatment Time Minutes (timed and untimed codes): 36 Total Session Time (minutes): 36 Session Start Time : 1120 Session Stop Time : 1156 Emma Saucedo MS, OT/L, CHT documented in this encounterLake[facility]03-20-[facility] History of Present illness Narrative* Bharati Dumont Jr., MD - 08/29/2023 6:20 AM EDT Patient presents with: Right Index Finger - Established Patient, Follow Up, Pain PROCEDURE CENTRALIZATION EXTENSOR TENDONS RIGHT MIDDLE AND RING FINGERS (Right) 08/16/2023 HISTORY OF PRESENT ILLNESS Kathryn Tamez presents for post operative follow up 2 weeks from surgery. She is doing well today. She is wearing her splint. Current Concerns: fit of splint, left wrist pain. Pain control:Well controlled Currently taking pain medication: Yes Fever, chills or other signs of infection: None PHYSICAL EXAMINATION No erythema, cellulitis or drainage Incision lines are intact, no drainage noted. Scars are maturing nicely ROM: He has near full motion of the finger. Sensation:Normal sensation Brisk cap refill IMAGING No imaging obtained. 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 today to have her splint adjusted. We will give her a brace for her left wrist. I will see her back in 3 weeks. Pt education provided on lifting restrictions Patient was instructed to call the office with any questions and/or concerns Scribe Attestation: By signing my name below, I, Abena Mock MA, attest that this documentation has been prepared under the direction and in the presence of Bharati Dumont Jr., MD. Electronically Signed: Abena Mock MA, Scribe. August 29, 2023 10:25 AM. Clinician Attestation Statement: The information in this document, created by the biomedical photographer for me, accurately reflects the services I personally performed and the decisions made by me. I have reviewed and approved this document for accuracy. Bharati Dumont MD Please note: This note has been produced using speech recognition software and may contain errors related to that system including grammar, punctuation, spelling, gender and words and phrases that may be inappropriate. documented in this encounterLakehealth [facility]03-12-2024 History of Present illness Narrative* Anupama Frye, S/OT - 08/21/2023 1:05 PM EDT Images from the original note were not included. Episode Visit Count: 1 Therapist That Will Accept/Oversee The Plan Of Care: Gaurav Dasilva/OT Start of Care Date: 08/21/23 Onset Date: 08/20/22 Plan of Care Certification Date: 08/21/23 Next Certification Due Date: 11/19/23 Patient Identified by Name and Date of : Yes [facility] REHABILITATION AND SPORTS THERAPY OCCUPATIONAL THERAPY EVALUATION PLAN OF CARE: Assessment: Kathryn Tamez presents with diagnosis of centralization of extensor tendons in the R hand that interferes with gripping, pinching, twisting, pulling, pushing, carrying . She presents with impairments in overall function. PROMIS (Patient-Reported Outcomes Measurement Information System) scores were reviewed and identified as within normal limits. Prognosis for therapy is Good due to: current objective clinical presentation . She will benefit from skilled therapy services to meet the goals established for this plan of care as noted below. Goals for Episode of Care created on 08/21/23 through 11/19/23 Patient will report a good understanding of diagnosis and OT recommendations for progression of program. Patient will demonstrate independence with ongoing home recommendations/exercise program throughouttherapy plan of care. Patient will report a decrease in pain in Right hand to 3/10 with prior functional tasks. Patient will independently demonstrate correct application of CUSTOM orthosis and verbalize understanding of proper wear/care. Patient will report a good understanding of edema control, scar / wound management throughout therapy plan of care to promote non-adherent / non-tender soft tissue. Patient will report a good understanding of the use of pain reducing modalities to help manage discomfort and promote healing. Patient will independently demonstrate good joint protection/body mechanics/postural control techniques during prior functional tasks. Patient Goals: Return to functional activities using both hands Planned Interventions, Frequency, and Duration: Current Frequency: 1x/week Duration: 8 weeks Total Number of Visits Planned: 8 Planned Treatment Interventions: Custom orthosis fabrication, Therapeutic activities (37448), Therapeutic exercise (94122), Manual therapy (58316), Self- mcfp management (48678), Fluidotherapy (67547) PLAN FOR NEXT VISIT:Assess/adjust splint and start AROM of fingers while in splint Patient demonstrates good understanding of plan of care and treatment. The above goals and plan of care were discussed and agreed upon by patient/family. SUBJECTIVE: Pt is 5 days post op centralization of extensor tendons in R hand Functional Limitations: gripping, pinching, twisting, pulling, pushing, carrying Prior Level of Function: Independent without limitations Patient Goals: Return to functional activities using both hands Intake Information: Prescription present Previous Treatment: Injections , Steroids , Antibiotics Falls Interview: No positive findings with falls interview Relevant History Past Relevant Medical Conditions: Arthritis Past Relevant Surgical Conditions: (A1 flory release in R hand RF, MF, and LF) Right or Left Handed: Right Employment: Retired Home Environment Patient Lives With: Self/Alone Assistance Available: PRN (Daughter stops by frequently) Pain: Pain Pain Level: 7 Pain Location: Hand - Right Description: Sharp Frequency: Continuous Post Treatment Pain Post Treatment Pain Level: No Change PROMIS Scales 08/21/2023 Higher is Better Phys Func - Score 36 (moderate dysfunction) Phys Func - Percentile 8 Self-Eff Symptom - Score 32 (Low) Self-Eff Symptom - Percentile 4 T-scores: mean of general population = 50. 5 points is clinically meaningfully difference Percentiles provide an indication of how the patient's score ranks in relation to the general population. Higher percentile rankings indicate better function/quality of life. 50th percentile is the average of the general population and indicates half of respondents had a worse score. OBJECTIVE MEASURES WITH LEVEL OF FUNCTION: Hand Skin / Wound: Sutures Sutures: absorbable, Steri-strips Edema Location: R hand Edema Description: Mild Sensation: Reports tingling or numbness Education: Education Learning Preferences: Explanation, Printed Materials, Demonstration, Performance Barriers: None Learning/educational needs: Lifestyle changes, Home exercise program, Plan of Care, Brace Fit, BodyMechanics, Safety Education Provided: Yes, see treatment interventions for education provided Education Provided To: Patient (Daughter was also present for education/explanation of care) Education Mode/Type: Demonstration, Explanation/Discussion, Literature/Printed Materials, Performance Response to Education/Teach Back: States/Identifies TREATMENT: OT Treatment Interventions : Custom Orthosis/Splint Fabrication, Self-Fdc Management Evaluation Self-Fdc Management: 1: Removed surgical dressings and educated pt on diagnosis and purpose of custom orthosis 2: Pt instructed in donning/doffing orthosis; pt and daughter reciprocated instructions 3: Pt edcuated on pain/edema management; pt to elevate RUE to aid in decreasing swelling 4: Pt instructed in R hand AROM flex/ext of PIP/DIP joints while hand is in orthosis; pt instructedto perform at home every hour for 10 min 5: Educated pt on wear schedule and movement precautions; pt to wear orthosis every hour of the dayexcept to wash hand in sink and to avoid movement of MP joints Skilled Intervention: Skilled judgment in the selection of proper modification for activity of daily living/home management based on clinical presentation, deficits, and needs. Reviewed patient specific diagnosis in relation to activities of daily living/home management. Activity progression based on professional judgement. Custom orthosis: L 3906 WHO w/out joints (wrist, clam shell, radial/ulnar wrist gutter) Custom orthosis to provide immobilization, protection and support of MP joints of R hand to promotehealing. Patient was instructed in care of orthosis and wearing schedule multimedia artist except when washing hands. Skilled Intervention: Clinical knowledge and skills required for custom orthotic fabrication and wearing schedule Patient/caregiver was educated in correct method for donning/doffing orthosis as well as wear and care of orthosis. Billing * Evaluation Low Complexity: 1 Unit Self-Care/Home Management Treatment Minutes: 25 * L 3808 WHFO w/out joints (long opponens, thumb spica, intrinsic gutter, resting, anti-spasticity,EXOS, dorsal block) Quantity: 1 Fabrication time for custom splint (minutes): 25 Skilled Treatment Time Minutes (timed and untimed codes): 55 Total Session Time (minutes): 55 Session Start Time : 1300 Session Stop Time : 1355 Gaurav Dasilva/OT Supervising therapist was present and guided the care of the patient for the entire session on thisdate. All documentation was reviewed and agreed upon. Emma Sauceod MS, OT/L, CHT documented in this encounterLake[facility]02-28-[facility] History of Present illness Narrative* Bharati Dumont Jr., MD - 08/08/2023 6:42 AM EST Patient presents with: Right Ring Finger - Post Op, Pain PROCEDURE A1 FLORY RELEASE RIGHT RING AND SMALL TRIGGER FINGERS (Right) 07/26/2023 HISTORY OF PRESENT ILLNESS Kathryn Tamez presents for post operative follow up 2 weeks from surgery. She is doing well today. Current Concerns: None Pain control:Well controlled Currently taking pain medication:No Fever, chills or other signs of infection: None PHYSICAL EXAMINATION No erythema, cellulitis or drainage Incision lines are intact, no drainage noted. Scars are maturing nicely ROM: Near full Sensation:Normal sensation Brisk cap refill IMAGING No imaging obtained. ASSESSMENT AND PLAN: Trigger little finger of right hand (primary encounter diagnosis) Trigger ring finger of right hand Arthritis of right hand Pt education provided on lifting restrictions Patient was instructed to call the office with any questions and/or concerns I did offer Centralization extensor tendons right middle and ring fingers. I have explained the risks, benefits and potential complications of the Surgery. Patient understands these risks and agrees to proceed. We will schedule this at our earliest mutual convenience. Call the office with any questions or concerns. Scribe Attestation: By signing my name below, I, Abena Mock MA, attest that this documentation has been prepared under the direction and in the presence of Bharati Dumont Jr., MD. Electronically Signed: Abena Mock MA, Scribe. August 08, 2023 10:31 AM. Clinician Attestation Statement: The information in this document, created by the biomedical photographer for me, accurately reflects the services I personally performed and the decisions made by me. I have reviewed and approved this document for accuracy. Bharati Dumont MD Please note: This note has been produced using speech recognition software and may contain errors related to that system including grammar, punctuation, spelling, gender and words and phrases that may be inappropriate. documented in this encounterL[facility]11-08-2023 Miscellaneous Notes* Telephone Encounter - Milly Mercado - 04/18/2023 8:42 AM EST No Show Documentation Kathryn Tamez no showed for an appointment on 04/17/2023 with Leonardo Lyles APRN.CNP at 10:40AM. She was scheduled for 4 week routine office visit for fatigue and labs. I called and spoke with the patient regarding her missed appointment. Kathryn stated the reason that she missed her appointment was because forgot about appointment . Resources discussed/offered to patient: patient said she will call to reschedule No show determined to be fault of patient: Yes This is the patients second no show in the last 12 months. Patient was rescheduled for N/A. Letter mailed : Yes Is this the Third or Fourth No Show? No Milly Mercado April 18, 2023 8:43 AM documented in this encounterLake[facility]10-10-2023 Miscellaneous Notes* Telephone Encounter - Gisela Cedeno - 03/20/2023 10:13 AM EDT Consult to: ophthalmology PPG confirmation number: [id number] Notes plugged in by: TB documented in this encounterLakehealth [facility]09-08-2023 Miscellaneous Notes* Telephone Encounter - Maren Lobato MA - 02/16/2023 3:30 PM EDT Pharmacy faxed requesting the following refill Refill(s) Requested: Requested Prescriptions Pending Prescriptions Disp Refills levothyroxine (SYNTHROID) 88 mcg tablet 90 tablet 1 Sig: Take 1 tablet by mouth once daily. ALLERGIES No Known Allergies (home) [phone] (cell) Last Office Visit Date: 05/26/2022 Last Distance Health Visit: 06/19/2022 Future Appointment: Visit date not found The patients preferred pharmacy has been captured for this encounter? yes Request is for script(s) to be escript to pharmacy. Maren Lobato MA documented in this encounterLakehealth [facility]09-06-2023 Miscellaneous Notes* Telephone Encounter - Leonardo Lyles APRN.CNP - 02/14/2023 8:39 AM EDT Due for OV, please schedule. Leonardo Lyles APRN.MIKAEL * Telephone Encounter - Geraldine Gonzales MA - 02/13/2023 3:30 PM EDT Pharmacy called requesting the following refill Refill(s) Requested: Requested Prescriptions Pending Prescriptions Disp Refills hydrOXYzine HCl (ATARAX) 10 mg tablet [Pharmacy Med Name: hydrOXYzine HCl Oral Tablet 10 MG] 90 tablet 0 Sig: TAKE ONE TABLET BY MOUTH AT BEDTIME NEEDED FOR ANXIETY sertraline (ZOLOFT) 100 mg tablet [Pharmacy Med Name: Sertraline HCl Oral Tablet 100 MG] 180 tablet0 Sig: TAKE TWO TABLETS BY MOUTH ONCE DAILY ALLERGIES No Known Allergies (home) [phone] (cell) Last Office Visit Date: 05/26/2022 Last [facility] Visit: 06/19/2022 Future Appointment: Visit date not found The patients preferred pharmacy has been captured for this encounter? yes Request is for script(s) to be escript to pharmacy. Geraldine Gonzales MA documented in this encounterLake[facility]07-12-2023 History of Present illness Narrative* Lin Box LPN - 12/20/2022 10:31 AM EDT Prepared injection per Dr. Dumont's order and handed to him. Lin Box LPN * Bharati Dumont Jr., MD - 12/20/2022 7:16 AM EDTAssociated Order(s): Additional Injections: R carpal tunnel Post-Procedure Diagnose(s): Carpal tunnel syndrome of right wrist 12/20/2022 :1940 Kathryn Tamez HISTORY OF CHIEF COMPLAINT: Kathryn is seeing me as a follow up patient today. She complains of right hand/wrist pain after a fall. She did not get much relief from the Medrol Dose Chucky. She returns today to check her progress. She underwent an A1 flory release of her right middle finger on 05/16/2022, followed by and I& D on 06/08/2022 and 07/14/2022. PAST MEDICAL HISTORY Diagnosis Date Acquired hypothyroidism Acute gastritis Adjustment disorder with depressed mood Allergic rhinitis Alopecia Arthritis left knee replaced 3 times Atrophic vaginitis Basal cell carcinoma of nasolabial groove Chronic pain Chronic pelvic pain in female Constipation COPD (chronic obstructive pulmonary disease) (HCC) Depression Dysuria Epigastric pain Essential hypertension External ear conductive hearing loss Female stress incontinence Fibromyalgia Functional diarrhea Functional disorder of bladder Generalized abdominal pain H/O goiter s/p thyroidectomy Headache Hip pain History of fall History of kidney problems renal cell carcinoma Hyperkalemia Hyperlipidemia Impacted cerumen Incomplete emptying of bladder Incontinence of feces Increased frequency of urination Jaw pain Joint pain Leukocytosis Lumbar back pain Medication monitoring encounter Migraine with aura Mitral valve prolapse Muscle pain Muscle spasms of neck and/or neck Muscle weakness Must strain to pass urine Nausea and vomiting Neck pain Neoplasm of brain (HCC) Nocturia Obesity Osteoporosis Pain in lower limb Pain in wrist Painful urging to urinate Periumbilical pain Primary fibromyalgia syndrome Dr. Clay Primary malignant neoplasm of kidney (HCC) Refractory migraine with aura Restless legs Sleep deprivation Spasm of back muscles Temporomandibular joint disorder Tobacco dependence syndrome Tobacco use quit smoking in - Urinary incontinence, mixed Urinary tract infectious disease Viral gastroenteritis PAST SURGICAL HISTORY Procedure Laterality Date ANKLE SURGERY HX Right 2012 ankle ARTHRP KNE CONDYLE&PLATU MEDIAL&LAT COMPARTMENTS Left X3 CHOLECYSTECTOMY COLONOSCOPY 08/05/2018 Dr. Guan (repeat in 10 years) HAND SURGERY HX Right 04/2022 KIDNEY SURGERY HX Left 2003 Removed- renal cell CA LEG SURGERY HX x6 PAST SURGICAL HISTORY OF 06/26/2015 Temporary Implant placed right hip for bladder control PAST SURGICAL HISTORY OF 07/02/2015 Permanent implant placed right hip for bladder control PAST SURGICAL HISTORY OF Left Hip fracture PAST SURGICAL HISTORY OF Left Broken Femur THYROID SURGERY HX 2003 partial TOTAL ABDOMINAL HYSTERECT W/WO RMVL TUBE OVARY BSO Social History Tobacco Use Smoking status: Former Years: 60.00 Types: Cigarettes Quit date: 08/18/2018 Years since quittin.3 Smokeless tobacco: Never Tobacco comments: One pack of cigarettes every 3 weeks Vaping Use Vaping Use: Never used Substance Use Topics Alcohol use: No Comment: Rarely Drug use: No Medications: Current Outpatient Medications Medication Sig Dispense Refill hydrOXYzine HCl (ATARAX) 10 mg tablet TAKE ONE TABLET BY MOUTH AT BEDTIME NEEDED FOR ANXIETY 90 tablet 0 sertraline (ZOLOFT) 100 mg tablet TAKE TWO TABLETS BY MOUTH once DAILY 180 tablet 0 methylPREDNISolone (MEDROL, CHUCKY,) 4 mg Dose-Pack 6 day therapy as Instructed per package 1 tablet 0 methylPREDNISolone (MEDROL, CHUCKY,) 4 mg Dose-Pack 6 day therapy as Instructed per package 1 tablet 1 levothyroxine (SYNTHROID) 88 mcg tablet take 1 tablet by mouth once daily 90 tablet 1 colestipol (COLESTID) 1 gram tablet Take 1 tablet by mouth twice daily. 60 tablet 2 dicyclomine (BENTYL) 10 mg capsule Take 1 capsule by mouth three times daily as needed (for abdominal pain). 60 capsule 1 midodrine (PROAMATINE) 2.5 mg tablet Take 1 tablet by mouth twice daily for 7 days. Hold for SBP>140. 14 tablet 0 SUMAtriptan (IMITREX) 50 mg tablet Take 1 tablet by mouth as needed (at onset of headache. May repeat after 2 hours.). 9 tablet 1 denosumab (PROLIA) 60 mg/mL Inject 1 mL subcutaneously once every 6 months. 1 mL 2 gabapentin (NEURONTIN) 300 mg capsule Take 300 mg by mouth twice daily. Pain MGMT No current facility-administered medications for this visit. ALLERGIES No Known Allergies There were no vitals taken for this visit. PHYSICAL EXAMINATION: General: she is a well developed, well nourished female Psyche: she is alert and oriented and cooperative to our examination Skin: Skin condition is healthy without rashes or erythema. Cadiovascular: There is a palpable radial pulse and brisk cap refill distally. Neck: Supple with no JVD Lymph: There is no palpable epitrochlear Pulmonary: she has non labored breathing. There is no evidence of cyanosis. There is no clubbing ofhis fingernails. she has no pursed lips. Neuro: she is alert and oriented x3. There are no focal neurologic deficits. See sensation exam below. Head: Normocephalic and atraumatic Musculoskeletal: There is no swelling or ecchymosis. There are no skin lacerations or abrasions. There are no Heberden's or Tiffanie's nodes. There is no boutonniere or swan-neck deformity of the fingers. There is no ulnar drift of the fingers. There is no intrinsic muscular atrophy. There is a negative shoulder sign over the thumb CMC joint. There is no dorsal subluxation of the ulnar head. Has tenderness on the volar forearm over the flexor tendons proximal to the wrist flexion crease. She isalso tender in the palm of the hand. She has no active triggering. She has a positive Tinel's sign over the median nerve at the wrist. Sensation is intact to light touch distally. ASSESSMENT: 1. Injury of triangular fibrocartilage complex (TFCC) of right wrist, subsequent encounter 2. Right hand pain 3.Carpal tunnel syndrome of right wrist PLAN: I did offer a steroid injection in her right carpal tunnel. Explained the risks, benefits andpotential complications of the injection. She understands these risks and agrees to proceed. I willsee her back in 2 weeks time. All of the patients questions were answered to her satisfaction. I reviewed diagnosis with patient verbally. We discussed her treatment options in depth and established a course of treatment suited to her. Additional Injections: R carpal tunnel for carpal tunnel syndrome Informed Consent [place] Protocol SIGN IN Personnel directly involved with the procedure wore the appropriate PPE. Patient/Surrogate Stated/Verified: Patient name, Date of , Relevant allergies and Intended procedure TIME OUT Relevant labs, photos, and/or imaging studies have been reviewed. Correct side/site marked and visible. Medications required for procedure verified. No implant(s) inserted. 12/20/2022 8:41 AM The procedure site was prepped in the usual sterile fashion. Medications: 12 mg betamethasone acetate-betamethasone sodium phosphate 6 mg/mL Anesthetics: 2 mL lidocaine (PF) 10 mg/mL (1 %) Outcome: tolerated well, no immediate complications Post-injection instructions were reviewed with the patient and the patient voiced understanding of these instructions. SIGN OUT All instruments, equipment, possible retained foreign bodies accounted for. Scribe Attestation: By signing my name below, I, Abena Mock MA, attest that this documentation has been prepared under the direction and in the presence of Bharati Dumont Jr., MD. Electronically Signed: Abena Mock MA, Scribe. December 20, 2022 10:30 AM. Clinician Attestation Statement: The information in this document, created by the biomedical photographer for me, accurately reflects the services I personally performed and the decisions made by me. I have reviewed and approved this document for accuracy. Bharati Dumont MD Please note: This note has been produced using speech recognition software and may contain errors related to that system including grammar, punctuation, spelling, gender and words and phrases that may be inappropriate. documented in this encounterLakehealth [facility]06-16-2023 History of Present illness Narrative* Britany Hodges PA-C - 11/24/2022 6:53 AM EDT Images from the original note were not included. 11/24/2022 :1940 Kathryn Terryannalise HISTORY OF CHIEF COMPLAINT: Kathryn is seeing me as a follow up patient today. She complains of right hand/wrist pain after a fall. Dr. Dumont put her on a medrol dose chucky and a gave her a removable wrsit brace at her last visit. She states she is still having aching pain. Admits to pain and swelling most prominently into right volar and ulnar aspects of her wrist. She localizes the most painful area to the ulnar aspect of her right wrist. She returns today to check her progress. She underwent an A1 flory release of her right middle finger on 05/16/2022, followed by and I& D on 06/08/2022 and 07/14/2022. She admits to falling 4 times recently. She denies any change in medication or dizziness that she has experienced prior to falling. She does not have a good explanation for it. States she has an appointment with her primary care provider regarding this and 1 to 2 weeks. Also admits that she is having right shoulder pain today, and is scheduled to see her shoulder specialist later this afternoon. PAIN EVALUATION 11/24/2022 1036 Pain Level: 5 Pain Location: -- rt hand Description: Aching Duration Amount of Time: 3 Duration Units: Weeks Frequency: Intermittent Intervention/Comfort measure: Relaxation;Reposition PAST MEDICAL HISTORY Diagnosis Date Acquired hypothyroidism Acute gastritis Adjustment disorder with depressed mood Allergic rhinitis Alopecia Arthritis left knee replaced 3 times Atrophic vaginitis Basal cell carcinoma of nasolabial groove Chronic pain Chronic pelvic pain in female Constipation COPD (chronic obstructive pulmonary disease) (HCC) Depression Dysuria Epigastric pain Essential hypertension External ear conductive hearing loss Female stress incontinence Fibromyalgia Functional diarrhea Functional disorder of bladder Generalized abdominal pain H/O goiter s/p thyroidectomy Headache Hip pain History of fall History of kidney problems renal cell carcinoma Hyperkalemia Hyperlipidemia Impacted cerumen Incomplete emptying of bladder Incontinence of feces Increased frequency of urination Jaw pain Joint pain Leukocytosis Lumbar back pain Medication monitoring encounter Migraine with aura Mitral valve prolapse Muscle pain Muscle spasms of neck and/or neck Muscle weakness Must strain to pass urine Nausea and vomiting Neck pain Neoplasm of brain (HCC) Nocturia Obesity Osteoporosis Pain in lower limb Pain in wrist Painful urging to urinate Periumbilical pain Primary fibromyalgia syndrome Dr. Clay Primary malignant neoplasm of kidney (HCC) Refractory migraine with aura Restless legs Sleep deprivation Spasm of back muscles Temporomandibular joint disorder Tobacco dependence syndrome Tobacco use quit smoking in - Urinary incontinence, mixed Urinary tract infectious disease Viral gastroenteritis PAST SURGICAL HISTORY Procedure Laterality Date ANKLE SURGERY HX Right 2012 ankle ARTHRP KNE CONDYLE&PLATU MEDIAL&LAT COMPARTMENTS Left X3 CHOLECYSTECTOMY COLONOSCOPY 08/05/2018 Dr. Guan (repeat in 10 years) HAND SURGERY HX Right 04/2022 KIDNEY SURGERY HX Left 2003 Removed- renal cell CA LEG SURGERY HX x6 PAST SURGICAL HISTORY OF 06/26/2015 Temporary Implant placed right hip for bladder control PAST SURGICAL HISTORY OF 07/02/2015 Permanent implant placed right hip for bladder control PAST SURGICAL HISTORY OF Left Hip fracture PAST SURGICAL HISTORY OF Left Broken Femur THYROID SURGERY HX 2004 partial TOTAL ABDOMINAL HYSTERECT W/WO RMVL TUBE OVARY BSO Social History Tobacco Use Smoking status: Former Years: 60.00 Types: Cigarettes Quit date: 08/18/2018 Years since quittin.2 Smokeless tobacco: Never Tobacco comments: One pack of cigarettes every 3 weeks Vaping Use Vaping Use: Never used Substance Use Topics Alcohol use: No Comment: Rarely Drug use: No Medications: Current Outpatient Medications Medication Sig Dispense Refill hydrOXYzine HCl (ATARAX) 10 mg tablet TAKE ONE TABLET BY MOUTH AT BEDTIME NEEDED FOR ANXIETY 90 tablet 0 sertraline (ZOLOFT) 100 mg tablet TAKE TWO TABLETS BY MOUTH once DAILY 180 tablet 0 methylPREDNISolone (MEDROL, CHUCKY,) 4 mg Dose-Pack 6 day therapy as Instructed per package 1 tablet 0 methylPREDNISolone (MEDROL, CHUCKY,) 4 mg Dose-Pack 6 day therapy as Instructed per package 1 tablet 1 levothyroxine (SYNTHROID) 88 mcg tablet take 1 tablet by mouth once daily 90 tablet 1 colestipol (COLESTID) 1 gram tablet Take 1 tablet by mouth twice daily. 60 tablet 2 dicyclomine (BENTYL) 10 mg capsule Take 1 capsule by mouth three times daily as needed (for abdominal pain). 60 capsule 1 midodrine (PROAMATINE) 2.5 mg tablet Take 1 tablet by mouth twice daily for 7 days. Hold for SBP>140. 14 tablet 0 SUMAtriptan (IMITREX) 50 mg tablet Take 1 tablet by mouth as needed (at onset of headache. May repeat after 2 hours.). 9 tablet 1 denosumab (PROLIA) 60 mg/mL Inject 1 mL subcutaneously once every 6 months. 1 mL 2 gabapentin (NEURONTIN) 300 mg capsule Take 300 mg by mouth twice daily. Pain MGMT No current facility-administered medications for this visit. ALLERGIES No Known Allergies There were no vitals taken for this visit. PHYSICAL EXAMINATION: General: she is a well developed, well nourished female Psyche: she is alert and oriented and cooperative to our examination Skin: Skin condition is healthy without rashes or erythema. Cadiovascular: There is a palpable radial pulse and brisk cap refill distally. Neck: Supple with no JVD Lymph: There is no palpable epitrochlear Pulmonary: she has non labored breathing. There is no evidence of cyanosis. There is no clubbing ofhis fingernails. she has no pursed lips. Neuro: she is alert and oriented x3. There are no focal neurologic deficits. See sensation exam below. Head: Normocephalic and atraumatic Musculoskeletal: There is + mild swelling noted to the volar and ulnar aspects of right wrist. No erythema, cellulitis/streaking, open wounds, or purulent drainage. There is a well-healed surgical scar noted to right palm. No ecchymosis. There are no skin lacerations or abrasions. There is no boutonniere or swan-neck deformity of the fingers. There is no ulnar drift of the fingers. There is no intrinsic muscular atrophy. There is no dorsal subluxation of the ulnar head. + Significant tendernesson palpation of right ulnar aspect of wrist and foveal area. TTP noted to ulnar aspect of right fifth metacarpal shaft. TTP noted to volar aspect of right wrist. TTP noted along the incision site of right middle finger flexor tendon course. TTP noted to radial aspect of wrist, along APL/EPB tendons, and radial styloid. Decreased active range of motion of right wrist due to pain. Pain is most prominent with ulnar and radial deviation of wrist. + Foveal sign. + Pain with median nerve compression test at wrist. Negative Tinel's. Negative Phalen's test at wrist Imaging: X-rays of right hand taken today's 11/24/2022 Radiographic evaluation: No obvious fracture or dislocation is noted. + Degenerative changes noted to right index and middle finger MCP joints with some mild volar subluxation, interphalangeal joints, and right thumb CMC joint. No soft tissue gas. No discernible mass noted. Bone density appears decreased for age of patient. + bone demineralization. ASSESSMENT: 1. 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 Right hand pain - ICD9: 729.5, ICD10: M79.641 - XR HAND GENERAL 3V PA/LAT/OBL RIGHT - WHFO, RIGID W/O JOINTS PLAN: All of the patients questions were answered to her satisfaction. I reviewed diagnosis with patient verbally. We discussed her treatment options in depth and established a course of treatment suited to her. -Dispensed thumb lacer brace today for patient to wear at all times except for hygiene purposes forthe next 3 to 4 weeks -No heavy lifting, pushing, or pulling with right hand or wrist -Ice/elevate as needed -Patient is unable to take NSAIDs due to only having 1 kidney -May take Tylenol as needed -We may consider TFCC injection at next visit if symptoms fail to improve. Follow-up in 3 to 4 weeks -Patient instructed to call office with questions or concerns Please note: This note has been produced using speech recognition software and may contain errors related to that system including grammar, punctuation, spelling, gender and words and phrases that may be inappropriate. Britany MCCLELLAN PA-C [facility] documented in this encounterLakehealth [facility]point [facility] Center06-05-2023 Miscellaneous Notes* Telephone Encounter - Maren Lobato MA - 11/13/2022 10:44 AM EDT Pharmacy faxed requesting the following refill Refill(s) Requested: Requested Prescriptions Pending Prescriptions Disp Refills hydrOXYzine HCl (ATARAX) 10 mg tablet [Pharmacy Med Name: hydrOXYzine HCl Oral Tablet 10 MG] 90 tablet 0 Sig: TAKE ONE TABLET BY MOUTH AT BEDTIME NEEDED FOR ANXIETY ALLERGIES No Known Allergies (home) [phone] (cell) Last Office Visit Date: 05/26/2022 Last [facility] Visit: 06/19/2022 Future Appointment: 11/13/2022 The patients preferred pharmacy has been captured for this encounter? yes Request is for script(s) to be escript to pharmacy. Maren Lobato MA documented in this encounterLakehealth [facility]point [facility] Center06-05-2023 Miscellaneous Notes* Telephone Encounter - Maren Lobato MA - 11/13/2022 10:40 AM EDT Pharmacy faxed requesting the following refill Refill(s) Requested: Requested Prescriptions Pending Prescriptions Disp Refills sertraline (ZOLOFT) 100 mg tablet [Pharmacy Med Name: Sertraline HCl Oral Tablet 100 MG] 180 tablet0 Sig: TAKE TWO TABLETS BY MOUTH once DAILY ALLERGIES No Known Allergies (home) [phone] (cell) Last Office Visit Date: 05/26/2022 Last [facility] Visit: 06/19/2022 Future Appointment: Visit date not found The patients preferred pharmacy has been captured for this encounter? yes Request is for script(s) to be escript to pharmacy. Maren Lobato MA documented in this encounterLakehealth [facility]point Medical Center04-05-2023 History of Present illness Narrative* Bharati Dumont Jr., MD - 09/13/2022 6:55 AM EDT Patient presents with: Right Hand - Established Patient, Follow Up, Pain, Post Op PROCEDURE Incision and drainage flexor tendon sheath right hand 07/14/22 RELEASE TRIGGER FINGER (Right) middle finger 05/16/2022 INCISION & DRAINAGE OF ABSCESS EXTREMITY UPPER, SIMPLE OR SINGLE (INCISION AND DRAINAGE R HAND WOUND) (Right) 06/08/2022 HISTORY OF PRESENT ILLNESS Kathryn Tamez presents for post operative follow up 9 weeks from surgery. Current Concerns: Her hand is tender, and it hurts when she drives or pushes herself out of a chair Pain control:Controlled Currently taking pain medication:Yes: Fever, chills or other signs of infection: None PHYSICAL EXAMINATION No erythema, cellulitis or drainage Incision lines are intact, no drainage noted. Scars are maturing nicely ROM: near full Sensation:Normal sensation Brisk cap refill IMAGING No imaging obtained. ASSESSMENT AND PLAN: Trigger middle finger of right hand (primary encounter diagnosis) Abscess of right middle finger I will give her a Medrol Dosepak. She will follow up as needed. Pt education provided on lifting restrictions Patient was instructed to call the office with any questions and/or concerns Scribe Attestation: By signing my name below, I, Abena Mock MA, attest that this documentation has been prepared under the direction and in the presence of Bharati Dumont Jr., MD. Electronically Signed: Abena Mock MA, R[place]. September 13, 2022 10:02 AM. Clinician Attestation Statement: The information in this document, created by the biomedical photographer for me, accurately reflects the services I personally performed and the decisions made by me. I have reviewed and approved this document for accuracy. Bharati Dumont MD Please note: This note has been produced using speech recognition software and may contain errors related to that system including grammar, punctuation, spelling, gender and words and phrases that may be inappropriate. documented in this encounterLakehealth [facility]point [facility] Center03-07-2023 Miscellaneous Notes* Telephone Encounter - Maren Lobato MA - 08/15/2022 1:43 PM EST Pharmacy faxed requesting the following refill Refill(s) Requested: Requested Prescriptions Pending Prescriptions Disp Refills sertraline (ZOLOFT) 100 mg tablet [Pharmacy Med Name: Sertraline HCl Oral Tablet 100 MG] 180 tablet0 Sig: TAKE TWO TABLETS BY MOUTH ONCE DAILY ALLERGIES No Known Allergies (home) [phone] (cell) Last Office Visit Date: 05/26/2022 Last [facility] Visit: 06/19/2022 Future Appointment: Visit date not found The patients preferred pharmacy has been captured for this encounter? yes Request is for script(s) to be escript to pharmacy. Maren Lobato MA documented in this encounterLakehealth [facility]point [facility] Center03-07-2023 Miscellaneous Notes* Telephone Encounter - Maren Lobato MA - 08/15/2022 9:03 AM EST Pharmacy faxed requesting the following refill Refill(s) Requested: Requested Prescriptions Pending Prescriptions Disp Refills levothyroxine (SYNTHROID) 88 mcg tablet [Pharmacy Med Name: Levothyroxine Sodium Oral Tablet 88 MCG] 90 tablet 1 Sig: take 1 tablet by mouth once daily ALLERGIES No Known Allergies (home) [phone] (cell) Last Office Visit Date: 05/26/2022 Last [facility] Visit: 06/19/2022 Future Appointment: Visit date not found The patients preferred pharmacy has been captured for this encounter? yes Request is for script(s) to be escript to pharmacy. Maren Lobato MA documented in this encounterLakehealth [facility]point Medical Center03-03-2023 Miscellaneous Notes* Addendum Note - Yumiko Zapien DO - 08/11/2022 11:00 AM ESTAddended by: YUMIKO ZAPIEN on: 08/11/2022 11:00 AM Modules accepted: Orders * Addendum Note - Iona Navarrete MA - 08/11/2022 10:56 AM ESTAddended by: IONA NAVARRETE on: 08/11/2022 10:56 AM Modules accepted: Orders * Telephone Encounter - Iona Navarrete MA - 08/11/2022 10:56 AM EST Patient called requesting the following refill Refill(s) Requested: Requested Prescriptions Pending Prescriptions Disp Refills sertraline (ZOLOFT) 100 mg tablet 180 tablet 0 Sig: Take 2 tablets by mouth once daily. ALLERGIES No Known Allergies (home) [phone] (cell) Last Office Visit Date: 05/26/2022 Last [facility] Visit: 06/19/2022 Future Appointment: Visit date not found The patients preferred pharmacy has been captured for this encounter? yes Request is for script(s) to be escript to pharmacy. Iona Navarrete MA * Telephone Encounter - Milly Jess - 08/11/2022 10:49 AM EST Patient called stating that she needs refills of: Hydroxizine 10MG Levothyroxine 88MG Sertraline Hydrochlorathiazide 100MG e- [facility] [id number] - [place] [address] [id number] [facility] - [phone] 162 (home) Milly Mercado August 11, 2022 10:52 AM documented in this encounterLakehealth [facility]point [facility] Center02-27-2023 Miscellaneous Notes* Telephone Encounter - Mary Jane Jaime Ma - 08/07/2022 9:52 AM EST Images from the original note were not included. Eloisa Kessler PA-C 08/04/2022 2:30 PM EST Reviewed. Will start pt on Colestid (sent into pharmacy,please let her know tab is relatively large, if concerned for dysphagia let me know and we can try Questran as alternative). Will check Celiac serology to ensure this is not potential cause, schedule colonoscopy. Eloisa Kessler PA-C Tried to contact pt on Sunday- Left message to return call. Tried to contact pt again- left a detailed message regarding medication and to go for labs and contact the office to schedule Colonoscopy. Mary Jane Jaime Ma documented in this encounterLakehealth [facility]point [facility] Center02-22-2023 History of Present illness Narrative* Bharati Dumont Jr., MD - 08/02/2022 7:05 AM EST No chief complaint on file. PROCEDURE Incision and drainage flexor tendon sheath right hand 07/14/22 RELEASE TRIGGER FINGER (Right) middle finger 05/16/2022 INCISION & DRAINAGE OF ABSCESS EXTREMITY UPPER, SIMPLE OR SINGLE (INCISION AND DRAINAGE R HAND WOUND) (Right) 06/08/2022 HISTORY OF PRESENT ILLNESS Kathryn Tamez presents for post operative follow up nearly 3 weeks from surgery. She is doing well today. She has not had any drainage. She has finished all antibiotics. Current Concerns: None Pain control:Well controlled Currently taking pain medication:No Fever, chills or other signs of infection: None PHYSICAL EXAMINATION No erythema, cellulitis or drainage Incision lines are intact, no drainage noted. Scars are maturing nicely ROM: Not tested Sensation:Normal sensation Brisk cap refill IMAGING No imaging obtained. ASSESSMENT AND PLAN: Trigger middle finger of right hand (primary encounter diagnosis) Abscess of right middle finger I will send her to O.T. today for some basic range of motion exercises. She will follow up in 6-8 weeks. Pt education provided on lifting restrictions Patient was instructed to call the office with any questions and/or concerns Scribe Attestation: By signing my name below, I, Abena Mock MA, attest that this documentation has been prepared under the direction and in the presence of Bharati Dumont Jr., MD. Electronically Signed: Abena oMck MA, Scribe. August 02, 2022 10:48 AM. Clinician Attestation Statement: The information in this document, created by the biomedical photographer for me, accurately reflects the services I personally performed and the decisions made by me. I have reviewed and approved this document for accuracy. Bharati Dumont MD Please note: This note has been produced using speech recognition software and may contain errors related to that system including grammar, punctuation, spelling, gender and words and phrases that may be inappropriate. documented in this encounterLakehealth [facility]point [facility] Center02-13-2023 History of Present illness Narrative* Britany Hodges PA-C - 07/24/2022 2:26 PM EST Images from the original note were not included. ORTHOPAEDIC OFFICE NOTE Patient presents with: Right Hand - Post Op Post Op: R hand Postop Visit: 1st POV, Post op day 10 SURGEON Bharati Dumont MD PROCEDURE Incision and drainage flexor tendon sheath right hand PROCEDURE DATE: 07/14/22 HISTORY OF PRESENT ILLNESS Kathryn Tamez presents for post operative follow up 10 days from surgery. Patient states sheis doing okay today. Admits her pain has improved from what it was previously. States she has finished all of her antibiotics. States she has some swelling in her middle finger. No other complaints at this time. Current Concerns: motion Pain control:somewhat controlled Currently taking pain medication: No Resting, icing, and elevating: Yes Fever, chills, purulent drainage, or other signs of infection: No Nausea, vomiting, SOB, chest pain, or calf pain: No PAIN EVALUATION 07/24/2022 1314 Pain Level: 6 Pain Location: -- rt hand Description: Aching Duration Amount of Time: -- 11 Duration Units: Days Frequency: Continuous Intervention/Comfort measure: Medication;Reposition;Relaxation PHYSICAL EXAMINATION of RIGHT HAND: Incision lines are intact, no drainage noted. Scars are maturing nicely and Sutures intact, will resorb. Edema noted to right middle finger finger. No erythema, cellulitis or drainage ROM: Decreased active range of motion due to pain and swelling, as to be expected. Unable to make fist. Sensation:Normal sensation Brisk cap refill, +2 radial pulse palpated IMAGING No new imaging obtained at today's visit. ASSESSMENT AND PLAN 1. Postoperative state - ICD9: V45.89, ICD10: Z98.890 Pt education provided on postop protocol. -Patient is doing well today. I am pleased with her healing progress. -Every other suture was removed in office today without difficulty. Patient tolerated this well. -Instructed patient to continue working on gentle range of motion of fingers. -No heavy lifting, pushing, or pulling with right hand. -Ice and elevate as needed -NSAIDs/Tylenol as needed Follow up in 1-2 weeks - Patient instructed to call office with questions or concerns. This note was generated via [employer] voice dictation and may contain errors related to that system such as spelling, grammar, punctuation, gender, words, and phrases that may be inappropriate. All reasonable efforts were made to correct dictation errors, however, they still may occur given the software used. Britany Hodges PA-C documented in this encounterLakehealth [facility]point [facility] Center02-07-2023 History of Present illness Narrative* Gemma Telles MA - 07/18/2022 11:37 AM EST TRANSITION CARE MANAGEMENT (TCM) INITIAL CONTACT Landscaping Manager Outreach Provider Action/FYI: Initial attempt- Left message for patient to return call. Next outreach attempt due 07/19/22.Gemma Telles MA documented in this encounterLakehealth Tripoint Medical Center02-03-2023 Miscellaneous Notes* Telephone Encounter - Soledad Diop - 07/14/2022 11:30 AM EST ----- Message from Ulises Dalton sent at 07/13/2022 2:07 PM EST ----- Regarding: Orthopedics / Open Hand: Pain / Post Op Within 90 Day Period Subject Line Format: Orthopedics / [Provider Name or Open & Body Part] / [Issue] Patient has been identified by name and Date of (Y/N): yes Patient: Kathryn Tamez Date of : 1940 Previous Provider Seen: neema Body Part(s) Identified: right hand Diagnosis/Reason For Visit: no Reason for the call/escalation: post op If reason for call/escalation is discharge from ED/ER or Hospital, which facility was the patient seen at: no Was an appointment scheduled (Y/N): no Person calling if other than patient: no Return call to if other than patient: no Best contact number: [phone] Thank you, Ulises Dalton July 13, 2022 2:08 PM documented in this encounterLakehealth [facility]point Medical Center01-25-2023 History of Present illness Narrative* Bharati Dumont Jr., MD - 07/05/2022 7:08 AM EST Patient presents with: Right Hand - Post Op PROCEDURE RELEASE TRIGGER FINGER (Right) middle finger 05/16/2022 INCISION & DRAINAGE OF ABSCESS EXTREMITY UPPER, SIMPLE OR SINGLE (INCISION AND DRAINAGE R HAND WOUND) (Right) 06/08/2022 HISTORY OF PRESENT ILLNESS Kathryn Tamez presents for post operative follow up 7 weeks from surgery. She continues to have pain and drainage from her wound. She has a burning sensation. Current Concerns: See above Pain control: Controlled Currently taking pain medication:Yes: [place] Fever, chills or other signs of infection: Patient has clear drainage from her wound PHYSICAL EXAMINATION No erythema, cellulitis but there is clear drainage There is a small opening of her wound. ROM: Not tested Sensation:Normal sensation Brisk cap refill IMAGING No imaging obtained. ASSESSMENT AND PLAN: Trigger middle finger of right hand (primary encounter diagnosis) I am concerned that she may have a fungal infection. I will give her Diflucan and Augmentin. She will follow up in 2 weeks. Pt education provided on lifting restrictions Patient was instructed to call the office with any questions and/or concerns Scribe Attestation: By signing my name below, I, Abena Mock MA, attest that this documentation has been prepared under the direction and in the presence of Bharati Dumont Jr., MD. Electronically Signed: Abena Mock MA, Scribe. July 05, 2022 1:55 PM. Clinician Attestation Statement: The information in this document, created by the biomedical photographer for me, accurately reflects the services I personally performed and the decisions made by me. I have reviewed and approved this document for accuracy. Bharati Dumont MD Please note: This note has been produced using speech recognition software and may contain errors related to that system including grammar, punctuation, spelling, gender and words and phrases that may be inappropriate. documented in this encounterLakehealth [facility]point Medical Center01-18-2023 History of Present illness Narrative* Bharati Dumont Jr., MD - 06/28/2022 6:36 AM EST Patient presents with: Right Hand - Post Op PROCEDURE RELEASE TRIGGER FINGER (Right) middle finger 05/16/2022 INCISION & DRAINAGE OF ABSCESS EXTREMITY UPPER, SIMPLE OR SINGLE (INCISION AND DRAINAGE R HAND WOUND) (Right) 06/08/2022 HISTORY OF PRESENT ILLNESS Kathryn Tamez presents for post operative follow up 6 weeks from surgery. She states today is the first day she has not had any drainage. She states she is having a lot of pain, and her finger is very stiff. Current Concerns: See above. Pain control:Controlled Currently taking pain medication:Yes: Tylenol Fever, chills or other signs of infection: None PHYSICAL EXAMINATION No erythema, cellulitis or drainage Incision lines are intact, no drainage noted. Scars are maturing nicely ROM: Not tested Sensation:Normal sensation Brisk cap refill IMAGING No imaging obtained. ASSESSMENT AND PLAN: Trigger middle finger of right hand (primary encounter diagnosis) Work on gentle range of motion. She will follow up in one week. Pt education provided on lifting restrictions Patient was instructed to call the office with any questions and/or concerns Scribe Attestation: By signing my name below, I, Abena Mock MA, attest that this documentation has been prepared under the direction and in the presence of Bharati Dumont Jr., MD. Electronically Signed: Abena Mock MA, Scribe. June 28, 2022 9:04 AM. Clinician Attestation Statement: The information in this document, created by the biomedical photographer for me, accurately reflects the services I personally performed and the decisions made by me. I have reviewed and approved this document for accuracy. Bharati Dumont MD Please note: This note has been produced using speech recognition software and may contain errors related to that system including grammar, punctuation, spelling, gender and words and phrases that may be inappropriate. documented in this encounterLakehealth [facility]point [facility] Center01-11-2023 History of Present illness Narrative* Bharati Dumont Jr., MD - 06/21/2022 6:46 AM EST Patient presents with: Right Hand - Follow Up PROCEDURE RELEASE TRIGGER FINGER (Right) middle finger 05/16/2022 INCISION & DRAINAGE OF ABSCESS EXTREMITY UPPER, SIMPLE OR SINGLE (INCISION AND DRAINAGE R HAND WOUND) (Right) 06/08/2022 HISTORY OF PRESENT ILLNESS Kathryn Tamez presents for post operative follow up 5 weeks from surgery. She complains of pain, and difficulty picking things up. Current Concerns: See above Pain control:Controlled Currently taking pain medication: yes, Tylenol Fever, chills or other signs of infection: None PHYSICAL EXAMINATION No erythema, cellulitis or drainage Incision lines are intact, no drainage noted. Scars are maturing nicely ROM: Not tested Sensation:Normal sensation Brisk cap refill IMAGING No imaging obtained. ASSESSMENT AND PLAN: Trigger middle finger of right hand (primary encounter diagnosis) It is OK to get wound wet in the shower, but do not soak. Finish antibiotics. She will follow up in2 weeks. Pt education provided on lifting restrictions Patient was instructed to call the office with any questions and/or concerns Scribe Attestation: By signing my name below, I, Abena Mock MA, attest that this documentation has been prepared under the direction and in the presence of Bharati Dumont Jr., MD. Electronically Signed: Abena Mock MA, Scribe. June 21, 2022 1:12 PM. Clinician Attestation Statement: The information in this document, created by the biomedical photographer for me, accurately reflects the services I personally performed and the decisions made by me. I have reviewed and approved this document for accuracy. Bharati Dumont MD Please note: This note has been produced using speech recognition software and may contain errors related to that system including grammar, punctuation, spelling, gender and words and phrases that may be inappropriate. documented in this encounterLakehealth Tripoint Medical Center01-09-2023 History of Present illness Narrative* Leonardo Lyles APRN.[facility] - 06/19/2022 5:24 PM EST [facility] [place] TELEMEDICINE VISIT Leonardo Lyles APRN.[facility] Visit Date: June 19, 2022 Name: Ms.Marjorie Edith Tamez Date of : 1940 MRN/E #: [id number] This Team Access Model visit is a phone encounter. It required patient-provider interaction for themedical decision making as documented below. Audio only was used for evaluation of this patient. Location of patient: [place] The patient gives verbal permission to perform this assessment and treatment using the above onlineapplication. The patient has been correctly identified, confirming name and date of . Chief Complaint Patient presents with: Follow Up History of present illness Kathryn Tamez is a 81 year old female presents for follow-up for diarrhea. She ended up going to the ER since her last visit with me for abdominal pain. She states she has felt more tired thanusual recently. She does does have a visit scheduled for seeing a GI specialist next month. States she currently does not have any diarrhea. She was in the ER recently for abdominal pain. While in the ER she was found have a UTI did finish Keflex as ordered. We did review her recent lab work and her elevated white blood cell count is resolved. Stool samples were not completed. She also recently had hand surgery for nonhealing hand wound and is currently on clindamycin. She is seeing the hand doctor in a few days. She has been drinking a lot of fluids. Review of Systems Constitutional: Positive for malaise/fatigue. Negative for chills and fever. Respiratory: Negative for shortness of breath. Cardiovascular: Negative for chest pain. Neurological: Negative for dizziness and headaches. (also see details under HPI) ALLERGIES No Known Allergies PAST MEDICAL HISTORY Diagnosis Date Acquired hypothyroidism Acute gastritis Adjustment disorder with depressed mood Allergic rhinitis Alopecia Arthritis left knee replaced 3 times Atrophic vaginitis Basal cell carcinoma of nasolabial groove Chronic pain Chronic pelvic pain in female Constipation COPD (chronic obstructive pulmonary disease) (HCC) Depression Dysuria Epigastric pain Essential hypertension External ear conductive hearing loss Female stress incontinence Fibromyalgia Functional diarrhea Functional disorder of bladder Generalized abdominal pain H/O goiter s/p thyroidectomy Headache Hip pain History of fall History of kidney problems renal cell carcinoma Hyperkalemia Hyperlipidemia Impacted cerumen Incomplete emptying of bladder Incontinence of feces Increased frequency of urination Jaw pain Joint pain Leukocytosis Lumbar back pain Medication monitoring encounter Migraine with aura Mitral valve prolapse Muscle pain Muscle spasms of neck and/or neck Muscle weakness Must strain to pass urine Nausea and vomiting Neck pain Neoplasm of brain (HCC) Nocturia Obesity Osteoporosis Pain in lower limb Pain in wrist Painful urging to urinate Periumbilical pain Primary fibromyalgia syndrome Dr. Clay Primary malignant neoplasm of kidney (HCC) Refractory migraine with aura Restless legs Sleep deprivation Spasm of back muscles Temporomandibular joint disorder Tobacco dependence syndrome Tobacco use quit smoking in - Urinary incontinence, mixed Urinary tract infectious disease Viral gastroenteritis PAST SURGICAL HISTORY Procedure Laterality Date ANKLE SURGERY HX Right 2012 ankle ARTHRP KNE CONDYLE&PLATU MEDIAL&LAT COMPARTMENTS Left X3 CHOLECYSTECTOMY COLONOSCOPY 08/05/2018 Dr. Guan (repeat in 10 years) HAND SURGERY HX Right 04/2022 KIDNEY SURGERY HX Left 2003 Removed- renal cell CA LEG SURGERY HX x6 PAST SURGICAL HISTORY OF 06/26/2015 Temporary Implant placed right hip for bladder control PAST SURGICAL HISTORY OF 07/02/2015 Permanent implant placed right hip for bladder control PAST SURGICAL HISTORY OF Left Hip fracture PAST SURGICAL HISTORY OF Left Broken Femur THYROID SURGERY HX 2004 partial TOTAL ABDOMINAL HYSTERECT W/WO RMVL TUBE OVARY BSO Social History Tobacco Use Smoking status: Former Years: 60.00 Types: Cigarettes Quit date: 08/18/2018 Years since quittin.8 Smokeless tobacco: Never Tobacco comments: One pack of cigarettes every 3 weeks Vaping Use Vaping Use: Never used Substance Use Topics Alcohol use: No Comment: Rarely Drug use: No FAMILY HISTORY Problem Relation Age of Onset Cancer Father Hypertension Sister Stroke Sister Coronary Artery Disease Sister Diabetes Sister Leukemia Sister I have confirmed and edited as necessary, the chief complaint and PFSH, some of which was obtained by others. There were no vitals taken for this visit. Last 3 Encounter BP Readings: Date: BP: 06/08/2022 117/60 06/07/2022 103/49 05/26/2022 122/70 Last 3 Encounter Wt Readings: Date: Wt: 06/14/2022 112 lb (50.8 kg) 06/07/2022 116 lb (52.6 kg) 06/07/2022 115 lb (52.2 kg) Video Exam: (if completed, performed via video enabled technology) No exam performed ASSESSMENT/PLAN: 1. Diarrhea, unspecified type - ICD9: 787.91, ICD10: R19.7 (primary diagnosis) -No current diarrhea, does have plan for GI follow-up next month 2. Abdominal pain, unspecified abdominal location - ICD9: 789.00, ICD10: R10.9 -On and off pain, follow-up with GI as scheduled 3. Postoperative state - ICD9: V45.89, ICD10: Z98.890 -Finish antibiotics from Ortho 4. Fatigue, unspecified type - ICD9: 780.79, ICD10: R53.83 -Discussed her recent UTI, diarrhea, hand infection likely causing her to feel tired than usual andwe discussed she should start to feel better slowly as she convalesces. We did discuss if she continues to feel fatigued following resolution of current symptoms to follow-up Leonardo Lyles, [employer] Total time in direct patient contact = 9 min. Greater than 50% of the time was spent in counseling and/or coordination of care. Return if symptoms worsen or fail to improve. Orders and refills placed today: No orders found for this visit on 06/19/22. There are no Patient Instructions on file for this visit. Discussed the above with the patient using shared decision making. The patient is in agreement with the diagnostic and treatment plans. [facility] in this [facility] History of Present illness Narrative* Britany Hodges PA-C - 06/14/2022 10:23 AM EST Images from the original note were not included. ORTHOPAEDIC OFFICE NOTE Patient presents with: Right Hand - Post Op, Pain, Swelling Postop Visit: 1st POV, Post op day 6 SURGEON Bharati Dumont MD PROCEDURE INCISION & DRAINAGE OF ABSCESS EXTREMITY UPPER, SIMPLE OR SINGLE (INCISION AND DRAINAGE R HAND WOUND) (Right) PROCEDURE DATE: 06/08/22 HISTORY OF PRESENT ILLNESS Kathryn Tamez presents for post operative follow up 6 days from surgery. Patient admits to still having pain, tenderness, and difficulty with range of motion of right middle finger. She admitsto taking Bactrim as instructed. Admits to still experiencing nausea but the Zofran has been helping. Denies any drainage, fever, or chills. States she is still planning to see a GI specialist for her diarrhea issues. She states that she has had diarrhea issues for a long time, prior to evening having surgery or starting any antibiotics. Denies antibiotics worsening diarrhea symptoms. Current Concerns: pain, poor healing Pain control:somewhat controlled Currently taking pain medication: Yes: [place] from pain management Resting, icing, and elevating: Yes Fever, chills, purulent drainage, or other signs of infection: No Nausea, vomiting, SOB, chest pain, or calf pain: Yes: Nausea PAIN EVALUATION 06/14/2022 1018 Pain Level: 4 Pain Location: -- RIGHT HAND Description: Sharp Frequency: Intermittent Intervention/Comfort measure: Reposition;Relaxation;Positioning;Medication PHYSICAL EXAMINATION of RIGHT HAND: Incision lines are intact, no drainage noted. Scars are maturing nicely and Sutures are intact. Will remain until next post op visit. Mild edema of right middle finger. No erythema, cellulitis or drainage +Tenderness on palpation of right middle finger and surrounding incision site. ROM: Decreased due to pain and swelling. Unable to make fist. Sensation:Normal sensation Brisk cap refill, +2 radial pulse palpated REVIEW OF STUDIES: Component Latest Ref Rng & Units 06/08/2022 06/08/2022 06/08/2022 10:32 AM 10:32 AM 10:32 AM WOUND CULTURE Few Staphylococcus aureus (A) Few skin triston Smear Result Few Gram positive cocci (A) Few Polymorphonuclear leukocytes (A) Many Red Blood Cells (A) ASSESSMENT AND PLAN 1. Postoperative state - ICD9: V45.89, ICD10: Z98.890 (primary diagnosis) - ONDANSETRON HCL 8 MG TABLET - CLINDAMYCIN HCL 300 MG CAPSULE 2. Nausea - ICD9: 787.02, ICD10: R11.0 - ONDANSETRON HCL 8 MG TABLET Pt education provided on postop protocol. -Patient is doing better today. I am pleased with her healing progress. -Patient's wound culture grew staph aureus, so I would like her to discontinue Bactrim and start taking clindamycin for 10 days. -Refilled Zofran for an additional 10 days to with her nausea -Discussed appropriate wound care. Patient is not having any drainage from incision site today, so she may leave this open and uncovered. -Instructed patient to continue working on range of motion of fingers. -Ice and elevate as needed -NSAIDs/Tylenol as needed Follow up in 1 week for wound check and suture removal - Patient instructed to call office with questions or concerns. This note was generated via [employer] voice dictation and may contain errors related to that system such as spelling, grammar, punctuation, gender, words, and phrases that may be inappropriate. All reasonable efforts were made to correct dictation errors, however, they still may occur given the software used. Britany Hodges PA-C documented in this encounterL[facility]12-23-2022 Miscellaneous Notes* Telephone Encounter - Thu Young LPN - 06/02/2022 4:23 PM EST LM for pt to call office * Telephone Encounter - Leonardo Lyles APRN.[employer] - 06/02/2022 4:06 PM EST Can you please inquire if the patient is having any urinary symptoms such as dysuria, hematuria, frequency, urgency, flank pain, back pain or suprapubic pain? Their urine is suspicious for a UTI. Leonardo Lyles APRN.MIKAEL documented in this encounterLake[facility]12-23-2022 History of Present illness Narrative* Bharati Dumont Jr., MD - 06/02/2022 7:30 AM EST Patient presents with: Right Hand - Post Op, Follow Up PROCEDURE RELEASE TRIGGER FINGER (Right) middle finger 05/16/2022 HISTORY OF PRESENT ILLNESS Kathryn Tamez presents for post operative follow up 2 weeks from surgery. She is having a lot of pain in her right hand. She also have stiffness and swelling in her right finger Current Concerns: See above. Pain control: Currently taking pain medication:Yes: Fever, chills or other signs of infection: None PHYSICAL EXAMINATION Slight drainage Incision lines are intact ROM: Not tested Sensation:Normal sensation Brisk cap refill IMAGING No imaging obtained. ASSESSMENT AND PLAN: Trigger middle finger of right hand (primary encounter diagnosis) She will follow up in 4 days. If her infection has not improved by next week she may need a debridement and irrigation of her wound. We will place her on Augmentin and see her back on Sunday next week. Pt education provided on lifting restrictions Patient was instructed to call the office with any questions and/or concerns Scribe Attestation: By signing my name below, I, Abena Mock MA, attest that this documentation has been prepared under the direction and in the presence of Bharati Dumont Jr., MD. Electronically Signed: Abena Mock MA, Scribe. June 02, 2022 10:55 AM. Clinician Attestation Statement: The information in this document, created by the biomedical photographer for me, accurately reflects the services I personally performed and the decisions made by me. I have reviewed and approved this document for accuracy. Bharati Dumont MD Please note: This note has been produced using speech recognition software and may contain errors related to that system including grammar, punctuation, spelling, gender and words and phrases that may be inappropriate. documented in this [facility]12-21-2022 Miscellaneous Notes* Telephone Encounter - Milly Mercado - 05/31/2022 11:20 AM EST No Show Documentation Kathryn Tamez no showed for an appointment on 05/31/2022 with Leonardo Lyles APRN.CNP at 10:20AM. She was scheduled for Follow Up. I called and spoke with the patient regarding her missed appointment. Kathryn stated the reason that she missed her appointment was because forgot about appointment . Resources discussed/offered to patient: call to reschedule No show determined to be fault of patient: Yes This is the patients second no show in the last 12 months. Patient was rescheduled for N/A. Letter mailed : Yes Is this the Third or Fourth No Show? No Milly Mercado May 31, 2022 11:21 AM documented [facility] this [facility]12-21-2022 Miscellaneous Notes* Telephone Encounter - Leonardo Lyles APRN.CNP - 05/31/2022 10:57 AM EST I did call the listed number with no answer. Voicemail left. Patient called again with no answer. Please bhavesh as no-show/reschedule. Leonardo Lyles APRN.CNP documented in this [facility]12-16-2022 Miscellaneous Notes* Telephone Encounter - Gisela Cedeno - 05/26/2022 12:01 PM EST Consult to: gastro PPG confirmation number: [id number] Notes plugged in by: TB documented in this [facility]12-16-2022 History of Present illness Narrative* Leonardo Lyles APRN.[employer] - 05/26/2022 11:34 AM EST Visit Date: May 26, 2022 Patient Name: Ms.Marjorie Edith Tamez Date of : 1940 MRN/E #: [id number] Chief Complaint Patient presents with: Diarrhea Hearing Problem: Bilateral Nursing Intake: There are no exam notes on file for this visit. History of present illness Kathryn Tamez is a 81 year old female presents for concerns for diarrhea and hearing loss. She is concerned she has excessive wax in the ears causing some hearing loss. We did review that her ears were cleaned of wax. Due to her diarrhea she wants to postponed consult to audiology at this time. She is complains of diarrhea for the past 2 months. She had similar symptoms in April of last year that caused hospitalization. She states fortunate this time she has no nausea so she is able to stay better hydrated than when she was hospitalized. She was diagnosed with astrovirus at her last hospital stay for these symptoms. She states her last colonoscopy was in the hospital. She states diarrhea happen multiple times throughout the day. Typically she takes Imodium at least 16 mg daily. She states she will have incontinence with this diarrhea and has had to throw a lot of her close. She states she will be shopping and suddenly she will have diarrhea. Denies any bloody stools. Occasionally has some mild generalized abdominal pain once every 2 or 3 days. No significant diet changes but states greasy food does seem to worsen her symptoms. No increase stress in life. I have confirmed and edited as necessary, the PFSH and ROS obtained by others. PAIN EVALUATION No data found in the last 1 encounters. ALLERGIES No Known Allergies PAST MEDICAL HISTORY Diagnosis Date Acquired hypothyroidism Acute gastritis Adjustment disorder with depressed mood Allergic rhinitis Alopecia Arthritis left knee replaced 3 times Atrophic vaginitis Basal cell carcinoma of nasolabial groove Chronic pain Chronic pelvic pain in female Constipation COPD (chronic obstructive pulmonary disease) (HCC) Depression Dysuria Epigastric pain Essential hypertension External ear conductive hearing loss Female stress incontinence Fibromyalgia Functional diarrhea Functional disorder of bladder Generalized abdominal pain H/O goiter s/p thyroidectomy Headache Hip pain History of fall History of kidney problems renal cell carcinoma Hyperkalemia Hyperlipidemia Impacted cerumen Incomplete emptying of bladder Incontinence of feces Increased frequency of urination Jaw pain Joint pain Leukocytosis Lumbar back pain Medication monitoring encounter Migraine with aura Mitral valve prolapse Muscle pain Muscle spasms of neck and/or neck Muscle weakness Must strain to pass urine Nausea and vomiting Neck pain Neoplasm of brain (HCC) Nocturia Obesity Osteoporosis Pain in lower limb Pain in wrist Painful urging to urinate Periumbilical pain Primary fibromyalgia syndrome Dr. Clay Primary malignant neoplasm of kidney (HCC) Refractory migraine with aura Restless legs Sleep deprivation Spasm of back muscles Temporomandibular joint disorder Tobacco dependence syndrome Tobacco use quit smoking in - Urinary incontinence, mixed Urinary tract infectious disease Viral gastroenteritis PAST SURGICAL HISTORY Procedure Laterality Date ANKLE SURGERY HX Right 2012 ankle ARTHRP KNE CONDYLE&PLATU MEDIAL&LAT COMPARTMENTS Left X3 CHOLECYSTECTOMY COLONOSCOPY 08/05/2018 Dr. Guan (repeat in 10 years) HAND SURGERY HX Right 04/2022 KIDNEY SURGERY HX Left 2003 Removed- renal cell CA LEG SURGERY HX x6 PAST SURGICAL HISTORY OF 06/26/2015 Temporary Implant placed right hip for bladder control PAST SURGICAL HISTORY OF 07/02/2015 Permanent implant placed right hip for bladder control PAST SURGICAL HISTORY OF Left Hip fracture PAST SURGICAL HISTORY OF Left Broken Femur THYROID SURGERY HX 2004 partial TOTAL ABDOMINAL HYSTERECT W/WO RMVL TUBE OVARY BSO Social History Tobacco Use Smoking status: Former Years: 60.00 Types: Cigarettes Quit date: 08/18/2018 Years since quittin.7 Smokeless tobacco: Never Tobacco comments: One pack of cigarettes every 3 weeks Vaping Use Vaping Use: Never used Substance Use Topics Alcohol use: No Comment: Rarely Drug use: No FAMILY HISTORY Problem Relation Age of Onset Cancer Father Hypertension Sister Stroke Sister Coronary Artery Disease Sister Diabetes Sister Leukemia Sister Review of Systems Constitutional: Negative for chills and fever. Respiratory: Negative for shortness of breath. Cardiovascular: Negative for chest pain. Neurological: Negative for dizziness and headaches. BP 122/70 Pulse 70 Wt 115 lb (52.2kg) SpO2 95% Last 3 Encounter BP Readings: Date: BP: 05/26/2022 122/70 05/10/2022 133/69 10/07/2021 126/74 Last 3 Encounter Wt Readings: Date: Wt: 05/26/2022 115 lb (52.2 kg) 05/24/2022 111 lb (50.3 kg) 05/10/2022 111 lb (50.3 kg) Physical Exam Vitals and nursing note reviewed. Constitutional: General: She is not in acute distress. Appearance: Normal appearance. She is not diaphoretic. Comments: Patient does not appear ill. Appears well-hydrated. HENT: Head: Normocephalic. Cardiovascular: Rate and Rhythm: Normal rate and regular rhythm. Heart sounds: Normal heart sounds. Pulmonary: Effort: Pulmonary effort is normal. Breath sounds: Normal breath sounds. Abdominal: General: Bowel sounds are normal. Palpations: Abdomen is soft. Tenderness: There is generalized abdominal tenderness (mild). There is no guarding or rebound. Negative signs include Dunham's sign. Comments: Abdominal appears slightly bloated but is soft Skin: General: Skin is warm and dry. Neurological: Mental Status: She is alert and oriented to person, place, and time. Gait: Gait is intact. Psychiatric: Attention and Perception: Attention normal. Mood and Affect: Affect normal. Speech: Speech normal. ASSESSMENT/PLAN: 1. Diarrhea, unspecified type - ICD9: 787.91, ICD10: R19.7 (primary diagnosis) -Concern for infectious etiology given her history of this, will check stool samples -Trial Metamucil and increasing fiber in diet, try to avoid skipping meals -Discussed importance of staying well-hydrated and to replace electrolytes, Pedialyte would be a good option -Can trial Pepto-Bismol instead of Imodium to see if this helps otherwise continue Imodium PRN - CRYPTOSPORIDIUM AND GIARDIA ANTIGENS BY EIA - STOOL CULTURE/EIA - C. DIFFICILE PCR - CONSULT TO GASTROENTEROLOGY-I will place a consult to GI due to repetitive symptoms - CBC - COMP METABOLIC PANEL - AMYLASE BLD - LIPASE BLD 2. Abdominal pain, unspecified abdominal location - ICD9: 789.00, ICD10: R10.9 -see #1 - AMYLASE BLD - LIPASE BLD 3. Screening for diabetes mellitus - ICD9: V77.1, ICD10: Z13.1 - URINALYSIS WITH MICROSCOPIC, REFLEX CULTURE 4. Hyperlipidemia, mixed - ICD9: 272.2, ICD10: E78.2 - to be determined upon return of lab results - Encouraged following a low fat, low cholesterol diet. - Discussed the benefits of regular aerobic exercise and weight loss. - LIPID PANEL BASIC 5. Hypothyroidism, acquired - ICD9: 244.9, ICD10: E03.9 - TSH BLD 6. Bilateral hearing loss, unspecified hearing loss type - ICD9: 389.9, ICD10: H91.93 -2D audiology consult once diarrhea resolves Leonardo Lyles APRN.[employer] Return in about 5 days (around 05/31/2022). Discussed above plan with patient. Pt agreeable with above plan. Please note: This note has been produced using speech recognition software and may contain errors related to that system including grammar, punctuation, spelling, gender and words and phrases that may be inappropriate. documented in this encounterL[facility]12-15-2022 Miscellaneous Notes* Telephone Encounter - Maren Lobato MA - 05/25/2022 1:45 PM EST Pended to pcp Maren Lobato MA * Telephone Encounter - Tsering Leal - 05/25/2022 1:29 PM EST Patient stopped in office and ask if leonardo would please refill her medication for: Hydroxyzine HCL 10mg, wants it sent to the [facility] in [place].. patient has appointment 05/26/2022. documented in this encounterLake[facility]12-15-2022 Miscellaneous Notes* Telephone Encounter - Maren Lobato MA - 05/25/2022 1:44 PM EST Patient called requesting the following refill Refill(s) Requested: Requested Prescriptions Pending Prescriptions Disp Refills hydrOXYzine HCl (ATARAX) 10 mg tablet 90 tablet 1 Sig: Take 1 tablet by mouth at bedtime as needed for anxiety. ALLERGIES No Known Allergies (home) [phone] (cell) Last Office Visit Date: 10/07/2021 Last Distance Health Visit: Visit date not found Future Appointment: 05/26/2022 The patients preferred pharmacy has been captured for this encounter? yes Request is for script(s) to be escript to pharmacy. Maren Lobato MA documented in this encounterL[facility]12-14-2022 History of Present illness Narrative* Bharati Dumont Jr., MD - 05/24/2022 2:08 PM EST Patient presents with: Right Hand - Follow Up PROCEDURE RELEASE TRIGGER FINGER (Right) middle finger 05/16/2022 HISTORY OF PRESENT ILLNESS Kathryn Tamez presents for post operative follow up 8 days from surgery. Current Concerns: She is concerned about an infection at her incision site. Pain control: Well-controlled Currently taking pain medication:No Fever, chills or other signs of infection: She has drainage from her wound. PHYSICAL EXAMINATION There is no obvious erythema but she does have small open wound with serous drainage. ROM: Near full Sensation:Normal sensation Brisk cap refill IMAGING No imaging obtained. ASSESSMENT AND PLAN: Trigger middle finger of left hand (primary encounter diagnosis) I will put her on doxycycline today. She will follow up in one week. Pt education provided on lifting restrictions Patient was instructed to call the office with any questions and/or concerns Scribe Attestation: By signing my name below, I, Abena Mock MA, attest that this documentation has been prepared under the direction and in the presence of Bharati Dumont Jr., MD. Electronically Signed: Abena Mock MA, Scribe. May 24, 2022 2:11 PM. Clinician Attestation Statement: The information in this document, created by the biomedical photographer for me, accurately reflects the services I personally performed and the decisions made by me. I have reviewed and approved this document for accuracy. Bharati Dumont MD Please note: This note has been produced using speech recognition software and may contain errors related to that system including grammar, punctuation, spelling, gender and words and phrases that may be inappropriate. documented in this encounterLake[facility]11-30-2022 History of Present illness Narrative* Bharati Dumont Jr., MD - 05/10/2022 6:22 AM EST TRIGGER FINGER 05/10/2022 : 1940 HISTORY OF CHIEF COMPLAINT: Kathryn Tamez is a 81 year old female who is seeing me today fortriggering of finger. COMPLAINTS: Triggering of fingers: Right middle finger DURATION: 2-6 months CHARACTER: Intermittent SEVERITY: Moderate TIMING: During day, Other repetitive activities, and Worse with activity DAILY ACTIVITIES: moderately PREVIOUS TREATMENT: Injection PAST MEDICAL HISTORY Diagnosis Date Acquired hypothyroidism Acute gastritis Adjustment disorder with depressed mood Allergic rhinitis Alopecia Arthritis left knee replaced 3 times Atrophic vaginitis Basal cell carcinoma of nasolabial groove Chronic pain Chronic pelvic pain in female Constipation COPD (chronic obstructive pulmonary disease) (HCC) Depression Dysuria Epigastric pain Essential hypertension External ear conductive hearing loss Female stress incontinence Fibromyalgia Functional diarrhea Functional disorder of bladder Generalized abdominal pain H/O goiter s/p thyroidectomy Headache Hip pain History of fall History of kidney problems renal cell carcinoma Hyperkalemia Hyperlipidemia Impacted cerumen Incomplete emptying of bladder Incontinence of feces Increased frequency of urination Jaw pain Joint pain Leukocytosis Lumbar back pain Medication monitoring encounter Migraine with aura Mitral valve prolapse Muscle pain Muscle spasms of neck and/or neck Muscle weakness Must strain to pass urine Nausea and vomiting Neck pain Neoplasm of brain (HCC) Nocturia Obesity Osteoporosis Pain in lower limb Pain in wrist Painful urging to urinate Periumbilical pain Primary fibromyalgia syndrome Dr. Clay Primary malignant neoplasm of kidney (HCC) Refractory migraine with aura Restless legs Sleep deprivation Spasm of back muscles Temporomandibular joint disorder Tobacco dependence syndrome Tobacco use quit smoking in 04-25 Urinary incontinence, mixed Urinary tract infectious disease Viral gastroenteritis PAST SURGICAL HISTORY Procedure Laterality Date ANKLE SURGERY HX Right 2013 ankle ARTHRP KNE CONDYLE&PLATU MEDIAL&LAT COMPARTMENTS Left X3 CHOLECYSTECTOMY COLONOSCOPY 08/05/2018 Dr. Guan (repeat in 10 years) KIDNEY SURGERY HX Left 2003 Removed- renal cell CA LEG SURGERY HX x6 PAST SURGICAL HISTORY OF 06/26/15 Temporary Implant placed right hip for bladder control PAST SURGICAL HISTORY OF 07/02/15 Permanent implant placed right hip for bladder control PAST SURGICAL HISTORY OF Left Hip fracture PAST SURGICAL HISTORY OF Left Broken Femur THYROID SURGERY HX 2004 partial TOTAL ABDOMINAL HYSTERECT W/WO RMVL TUBE OVARY BSO Social History Tobacco Use Smoking status: Former Types: Cigarettes Quit date: 08/18/2018 Years since quittin.7 Smokeless tobacco: Never Tobacco comments: One pack of cigarettes every 3 weeks Vaping Use Vaping Use: Never used Substance Use Topics Alcohol use: No Comment: Rarely Drug use: No Medications: Current Outpatient Medications Medication Sig Dispense Refill sertraline (ZOLOFT) 100 mg tablet take 2 tablets by mouth once daily 180 tablet 0 hydrOXYzine HCl (ATARAX) 10 mg tablet Take 1 tablet by mouth at bedtime as needed for anxiety. 90 tablet 1 benzonatate (TESSALON PERLES) 100 mg capsule Take 1 capsule by mouth three times daily as needed for cough. 30 capsule 0 SUMAtriptan (IMITREX) 50 mg tablet Take 1 tablet by mouth as needed (at onset of headache. May repeat after 2 hours.). 9 tablet 1 cetirizine (ZYRTEC) 10 mg tablet Take 1 tablet by mouth once daily. 30 tablet 1 levothyroxine (SYNTHROID) 88 mcg tablet Take 1 tablet by mouth once daily. 90 tablet 1 denosumab (PROLIA) 60 mg/mL Inject 1 mL subcutaneously once every 6 months. 1 mL 2 tiZANidine (ZANAFLEX) 4 mg tablet Take 1 tablet by mouth at bedtime as needed. (Patient not taking:Reported on 09/02/2021 ) 20 tablet 0 HYDROcodone-Acetaminophen (NORCO) 7.5-325 mg per tablet Take 1 tablet by mouth twice daily. gabapentin (NEURONTIN) 300 mg capsule Take 300 mg by mouth twice daily. Pain MGMT No current facility-administered medications for this visit. ALLERGIES No Known Allergies VITALS: There were no vitals taken for this visit. PHYSICAL EXAMINATION: General: No acute distress Psyche: she is alert and oriented and cooperative to our examination Skin: Skin condition is healthy without rashes or erythema. Cadiovascular: she has palpable radial pulse and brisk capillary refill distally. Neck: Supple with no JVD Lymph: There is no palpable epitrochlear or axillary lymphadenopathy Pulmonary: she has non labored breathing. There is no evidence of cyanosis. There is no clubbing ofher fingernails. she has no pursed lips. Neuro: she is alert and oriented x3. There are no focal neurologic deficits. Head: Normocephalic and atraumatic Musculoskeletal: Hand: ROM: Full Atrophy: No Echymosis: No Triggering with Flexion- Extension: YES Hypertrophy of A1 flory: YES Synovitis: No Tenderness on palpation: YES Swelling: No Plan: I did offer the patient a A1 flory release right middle finger. I have explained the risks, benefits and potential complications of the Surgery. Patient understands these risks and agrees to proceed. We will schedule this at our earliest mutual convenience. Call the office with any questions or concerns. Assessment: 1.Trigger middle finger of left hand 2.Trigger middle finger of right hand Scribe Attestation: By signing my name below, I, Abena Mock MA, attest that this documentation has been prepared under the direction and in the presence of Bharati Dumont Jr., MD Electronically Signed: Abena Mock MA, Scribe. May 10, 2022 8:25 AM. Clinician Attestation Statement: The information in this document, created by the biomedical photographer for me, accurately reflects the services I personally performed and the decisions made by me. I have reviewed and approved this document for accuracy. Bharati Dumont MD Medical Decision Making: Problems: Moderate: 2+ stable chronic illnesses Risk: Moderate: Decision on minor surgery w/ risk factors Medical Decision Making Level: 4 - Moderate Please note: This note has been produced using speech recognition software and may contain errors related to that system including grammar, punctuation, spelling, gender and words and phrases that may be inappropriate. documented in this encounterLake[facility]11-17-2022 Miscellaneous Notes* Telephone Encounter - Iona Navarrete MA - 04/27/2022 9:19 AM EST Pharmacy faxed requesting the following refill Refill(s) Requested: Requested Prescriptions Pending Prescriptions Disp Refills sertraline (ZOLOFT) 100 mg tablet [Pharmacy Med Name: Sertraline HCl Oral Tablet 100 MG] 180 tablet0 Sig: take 2 tablets by mouth once daily ALLERGIES No Known Allergies (home) [phone] (cell) Last Office Visit Date: 10/07/2021 Last [facility] Health Visit: Visit date not found Future Appointment: Visit date not found The patients preferred pharmacy has been captured for this encounter? yes Request is for script(s) to be escript to pharmacy. Iona Navarrete MA documented in this encounterLakehealth [facility]10-26-2022 History of Present illness Narrative* Lydia Pelaez LPN - 04/05/2022 10:26 AM EDT Prepared injection x2 per Dr. Dumont's order and handed to him. * Bharati Dumont Jr., MD - 04/04/2022 3:40 PM EDTAssociated Order(s): Additional Injections: bilateral long A1 Post-Procedure Diagnose(s): Trigger middle finger of left hand; Trigger middle finger of right hand TRIGGER FINGER 04/04/2022 : 1940 HISTORY OF CHIEF COMPLAINT: Kathryn Tamez is a 81 year old female who is seeing me today fortriggering of finger. COMPLAINTS: Triggering of fingers: Bilateral middle finger DURATION: 2-6 months CHARACTER: Intermittent SEVERITY: Mild TIMING: During day DAILY ACTIVITIES: mildly PREVIOUS TREATMENT: None PAST MEDICAL HISTORY Diagnosis Date Acquired hypothyroidism Acute gastritis Adjustment disorder with depressed mood Allergic rhinitis Alopecia Arthritis left knee replaced 3 times Atrophic vaginitis Basal cell carcinoma of nasolabial groove Chronic pain Chronic pelvic pain in female Constipation COPD (chronic obstructive pulmonary disease) (HCC) Depression Dysuria Epigastric pain Essential hypertension External ear conductive hearing loss Female stress incontinence Fibromyalgia Functional diarrhea Functional disorder of bladder Generalized abdominal pain H/O goiter s/p thyroidectomy Headache Hip pain History of fall History of kidney problems renal cell carcinoma Hyperkalemia Hyperlipidemia Impacted cerumen Incomplete emptying of bladder Incontinence of feces Increased frequency of urination Jaw pain Joint pain Leukocytosis Lumbar back pain Medication monitoring encounter Migraine with aura Mitral valve prolapse Muscle pain Muscle spasms of neck and/or neck Muscle weakness Must strain to pass urine Nausea and vomiting Neck pain Neoplasm of brain (HCC) Nocturia Obesity Osteoporosis Pain in lower limb Pain in wrist Painful urging to urinate Periumbilical pain Primary fibromyalgia syndrome Dr. Clay Primary malignant neoplasm of kidney (HCC) Refractory migraine with aura Restless legs Sleep deprivation Spasm of back muscles Temporomandibular joint disorder Tobacco dependence syndrome Tobacco use quit smoking in 11-15 Urinary incontinence, mixed Urinary tract infectious disease Viral gastroenteritis PAST SURGICAL HISTORY Procedure Laterality Date ANKLE SURGERY HX Right 2012 ankle ARTHRP KNE CONDYLE&PLATU MEDIAL&LAT COMPARTMENTS Left X3 CHOLECYSTECTOMY COLONOSCOPY 08/05/2018 Dr. Guan (repeat in 10 years) KIDNEY SURGERY HX Left 2003 Removed- renal cell CA LEG SURGERY HX x6 PAST SURGICAL HISTORY OF 06/26/15 Temporary Implant placed right hip for bladder control PAST SURGICAL HISTORY OF 07/02/15 Permanent implant placed right hip for bladder control PAST SURGICAL HISTORY OF Left Hip fracture PAST SURGICAL HISTORY OF Left Broken Femur THYROID SURGERY HX 2003 partial TOTAL ABDOMINAL HYSTERECT W/WO RMVL TUBE OVARY BSO Social History Tobacco Use Smoking status: Former Types: Cigarettes Quit date: 08/18/2018 Years since quittin.6 Smokeless tobacco: Never Tobacco comments: One pack of cigarettes every 3 weeks Vaping Use Vaping Use: Never used Substance Use Topics Alcohol use: No Comment: Rarely Drug use: No Medications: Current Outpatient Medications Medication Sig Dispense Refill hydrOXYzine HCl (ATARAX) 10 mg tablet Take 1 tablet by mouth at bedtime as needed for anxiety. 90 tablet 1 benzonatate (TESSALON PERLES) 100 mg capsule Take 1 capsule by mouth three times daily as needed for cough. 30 capsule 0 SUMAtriptan (IMITREX) 50 mg tablet Take 1 tablet by mouth as needed (at onset of headache. May repeat after 2 hours.). 9 tablet 1 cetirizine (ZYRTEC) 10 mg tablet Take 1 tablet by mouth once daily. 30 tablet 1 levothyroxine (SYNTHROID) 88 mcg tablet Take 1 tablet by mouth once daily. 90 tablet 1 sertraline (ZOLOFT) 100 mg tablet Take 2 tablets by mouth once daily. 180 tablet 1 denosumab (PROLIA) 60 mg/mL Inject 1 mL subcutaneously once every 6 months. 1 mL 2 tiZANidine (ZANAFLEX) 4 mg tablet Take 1 tablet by mouth at bedtime as needed. (Patient not taking:Reported on 09/02/2021 ) 20 tablet 0 HYDROcodone-Acetaminophen (NORCO) 7.5-325 mg per tablet Take 1 tablet by mouth twice daily. gabapentin (NEURONTIN) 300 mg capsule Take 300 mg by mouth twice daily. Pain MGMT No current facility-administered medications for this visit. ALLERGIES No Known Allergies VITALS: There were no vitals taken for this visit. PHYSICAL EXAMINATION: General: No acute distress Psyche: she is alert and oriented and cooperative to our examination Skin: Skin condition is healthy without rashes or erythema. Cadiovascular: she has palpable radial pulse and brisk capillary refill distally. Neck: Supple with no JVD Lymph: There is no palpable epitrochlear or axillary lymphadenopathy Pulmonary: she has non labored breathing. There is no evidence of cyanosis. There is no clubbing ofher fingernails. she has no pursed lips. Neuro: she is alert and oriented x3. There are no focal neurologic deficits. Head: Normocephalic and atraumatic Musculoskeletal: Hand: ROM: Full Atrophy: No Echymosis: No Triggering with Flexion- Extension: YES Hypertrophy of A1 flory: YES Synovitis: No Tenderness on palpation: YES Swelling: No Plan: I did offer the patient a steroid injection of the Bilateral middle finger . I explained the risks,benefits, and potental complications of injection. Patient understands that it may take 3-5 days before experiencing resolution of symptoms and agrees with the plan to proceed. Assessment: 1. Bilateral middle trigger finger Additional Injections: bilateral long A1 for trigger finger Informed Consent [place] Protocol A moment to CARE was completed. SIGN IN Personnel directly involved with the procedure wore the appropriate PPE. Patient/Surrogate Stated/Verified: Patient name, Date of , Relevant allergies and Intended procedure TIME OUT Relevant labs, photos, and/or imaging studies have been reviewed. Correct side/site marked and visible. Medications required for procedure verified. No implant(s) inserted. 04/07/2022 10:32 AM The procedure site was prepped in the usual sterile fashion. Medications (Right): 40 mg triamcinolone acetonide 40 mg/mL Medications (Left): 40 mg triamcinolone acetonide 40 mg/mL Anesthetics (Right): 1 mL lidocaine (PF) 10 mg/mL (1 %) Anesthetics (Left): 1 mL lidocaine (PF) 10 mg/mL (1 %) Outcome: tolerated well, no immediate complications Post-injection instructions were reviewed with the patient and the patient voiced understanding of these instructions. SIGN OUT No specimen collected. All instruments, equipment, possible retained foreign bodies accounted for. Post-procedure follow-up management communicated and Plan of Care Visit completed when applicable, bilateral Medical Decision Making: Problems: Moderate: 2+ stable chronic illnesses Risk: Low: Low risk from testing/treatment Medical Decision Making Level: 3 - Low Please note: This note has been produced using speech recognition software and may contain errors related to that system including grammar, punctuation, spelling, gender and words and phrases that may be inappropriate. documented in this encounterLake[facility]07-21-2022 Miscellaneous Notes* Telephone Encounter - Tsering Leal - 12/29/2021 11:08 AM EDT No Show Documentation Kathryn Tamez no showed for an appointment on 12/29/2021 with Leonardo Lyles APRN.CNP at 9:20am. She was scheduled for wellness . I called and spoke with the patient regarding her missed appointment. Kathryn stated the reason that she missed her appointment was because forgot about appointment . Resources discussed/offered to patient: reschedule No show determined to be fault of patient: Yes This is the patients first no show in the last 12 months. Patient was rescheduled for 02/14/2022. Letter mailed : No Is this the Third or Fourth No Show? No Tsering Leal December 29, 2021 11:08 AM documented in this encounterLakehealth [facility] Center06-16-2022 Miscellaneous Notes* Telephone Encounter - Maren Lobato MA - 11/24/2021 1:36 PM EDT Patient notified Maren Lobato MA * Telephone Encounter - Leonardo Lyles APRN.CNP - 11/24/2021 11:22 AM EDT Due to fall and resultant injury and worsening pain, she should report to the ER for evaluation Leonardo Lyles APRN.CNP * Telephone Encounter - Reyna Biggs LPN - 11/24/2021 10:12 AM EDT Per below, patient fell, hitting his chest and injuring (L) side and it is getting more painful. Reyna Biggs LPN November 24, 2021 10:13 AM * Telephone Encounter - Reyna Biggs LPN - 11/24/2021 10:11 AM EDT ----- Message from Julia Haq sent at 11/24/2021 10:00 AM EDT ----- Regarding: Medicine/[place]/Fell 3 weeks ago, hit chest on left hand side, more painful Subject Line Format: Medicine / [Provider Name] / [Issue] Patient has been identified by name and Date of (Y/N): Y Patient: Kathryn Tamez Date of : 1940 Provider for this encounter: Leonardo Lyles APRN.CNP Reason for the call/escalation: Patient ell 3 weeks ago, hit chest on left hand side,getting more painful. 4cq denied scheduling. Was Patient Referred to [facility]/Seek Emergency Treatment (Y/N): NA Did Patient Agree (Y/N): NA Was An Attempt Made To Transfer The Patient To The Office (Y/N): NA Were You Able To Reach Someone At The Office (Y/N): NA If Yes - Patient Was Transferred To (Caregivers Name): NA If No - Which [facility] Leadership Machine Repairer Did You Speak With Regarding This Patient: NA Was an appointment scheduled (Y/N): N-4cq denied Reason patient was requesting visit (RFV/signs and symptoms/diagnosis) : Pain from fall Person calling if other than patient: patient Return call to if other than patient: patimichel Best contact number: [phone] Thank you, Julia Haq November 24, 2021 10:01 AM documented in this encounterLakehealth [facility]06-14-2022 Miscellaneous Notes* Telephone Encounter - Maren Lobato MA - 11/22/2021 12:33 PM EDT Patient called in stating she is out of the little white pill that she takes at bedtime She has her zoloft, synthroid Only medication I am seeing at bedtime is tizanidine( reported not taking on 08/31/2021) Patient threw her bottle away and also called her pharmacy describing this pill. They were not ableto help her Maren Lobato MA documented in this encounterLakehealth [facility]05-02-2022 Miscellaneous Notes* Telephone Encounter - Geraldine Gonzales MA - 10/10/2021 2:05 PM EDT Left detailed msg on patient identified voicemail. Geraldine Gonzales MA * Telephone Encounter - Leonardo Lyles APRN.CNP - 10/10/2021 1:57 PM EDT I did send her a note via Wikkit LLChart that her chest x-ray was negative. Please thank her for the update. Leonardo Lyles APRN.CNP * Telephone Encounter - Evita Bhardwaj MA - 10/10/2021 1:20 PM EDT Patient called and left a voicemail stating that she was having some problems and is going to the Emergency room. Called patient back and spoke with patient's daughter (Hyun). Patient's daughter stated that she was taking her mom to [facility] because she can't move her neck, and she is also have some shoulder pain. Patient daughter stated she wanted you to be informed of what was going on. Patient's daughter (Hyun) also wanted to know what the results of her moms x- ray showed. Please advise .Evita Bhardwaj MA documented in this encounterLakehealth [facility]point [facility] Center05-02-2022 Hospital Discharge instructions* Instructions* Nallely Fisher DO - 10/10/2021 You have been prescribed different medications to help with your neck plain please take this for symptomatic relief. As discussed you will need to follow-up with orthopedics you are already established with an orthopedic doctor please follow-up with them soon as possible further management of your symptoms return to the ED if you develop numbness tingling dizziness or if any other concerning symptoms arise. documented in this [facility] Work Phone: 1(145) 630-223004-29-2022 History of Present illness Narrative* Leonardo Lyles APRN.[employer] - 10/07/2021 9:43 AM EDT Visit Date: October 07, 2021 Patient Name: Ms.Marjorie Edith Tamez Date of : 1940 MRN/E #: [id number] Chief Complaint Patient presents with: Follow Up Cough Nursing Intake: There are no exam notes on file for this visit. History of present illness Kathryn Tamez is a 81 year old female here for ongoing cough for at least a month. She states she was treated for bronchitis about a month ago unfortunately her cough is still been ongoing. She states the cough is frequent throughout the day, strong cough, trouble getting breath when coughing. States his cough is keeping her up at night. She rarely coughs up clear phlegm. Mild runny nose and some sinus pain with symptoms as well. Otherwise denies any bowel changes, shortness of breath, fever, chills, sore throat, ear pain, wheezing, headaches. OTC cough drops and cough syrup along with NyQuil are helpful. I have confirmed and edited as necessary, the PFSH and ROS obtained by others. PAIN EVALUATION No data found in the last 1 encounters. ALLERGIES No Known Allergies PAST MEDICAL HISTORY Diagnosis Date Acquired hypothyroidism Acute gastritis Adjustment disorder with depressed mood Allergic rhinitis Alopecia Arthritis left knee replaced 3 times Atrophic vaginitis Basal cell carcinoma of nasolabial groove Chronic pain Chronic pelvic pain in female Constipation COPD (chronic obstructive pulmonary disease) (HCC) Depression Dysuria Epigastric pain Essential hypertension External ear conductive hearing loss Female stress incontinence Fibromyalgia Functional diarrhea Functional disorder of bladder Generalized abdominal pain H/O goiter s/p thyroidectomy Headache Hip pain History of fall History of kidney problems renal cell carcinoma Hyperkalemia Hyperlipidemia Impacted cerumen Incomplete emptying of bladder Incontinence of feces Increased frequency of urination Jaw pain Joint pain Leukocytosis Lumbar back pain Medication monitoring encounter Migraine with aura Mitral valve prolapse Muscle pain Muscle spasms of neck and/or neck Muscle weakness Must strain to pass urine Nausea and vomiting Neck pain Neoplasm of brain (HCC) Nocturia Obesity Osteoporosis Pain in lower limb Pain in wrist Painful urging to urinate Periumbilical pain Primary fibromyalgia syndrome Dr. Clay Primary malignant neoplasm of kidney (HCC) Refractory migraine with aura Restless legs Sleep deprivation Spasm of back muscles Temporomandibular joint disorder Tobacco dependence syndrome Tobacco use quit smoking in -15 Urinary incontinence, mixed Urinary tract infectious disease Viral gastroenteritis PAST SURGICAL HISTORY Procedure Laterality Date ANKLE SURGERY HX Right 2013 ankle ARTHRP KNE CONDYLE&PLATU MEDIAL&LAT COMPARTMENTS Left X3 CHOLECYSTECTOMY COLONOSCOPY 08/05/2018 Dr. Guan (repeat in 10 years) KIDNEY SURGERY HX Left 2003 Removed- renal cell CA LEG SURGERY HX x6 PAST SURGICAL HISTORY OF 06/26/15 Temporary Implant placed right hip for bladder control PAST SURGICAL HISTORY OF 07/02/15 Permanent implant placed right hip for bladder control PAST SURGICAL HISTORY OF Left Hip fracture PAST SURGICAL HISTORY OF Left Broken Femur THYROID SURGERY HX 2004 partial TOTAL ABDOMINAL HYSTERECT W/WO RMVL TUBE OVARY BSO Social History Tobacco Use Smoking status: Former Smoker Types: Cigarettes Quit date: 08/18/2018 Years since quittin.1 Smokeless tobacco: Never Used Tobacco comment: One pack of cigarettes every 3 weeks Vaping Use Vaping Use: Never used Substance Use Topics Alcohol use: No Comment: Rarely Drug use: No FAMILY HISTORY Problem Relation Age of Onset Cancer Father Hypertension Sister Stroke Sister Coronary Artery Disease Sister Diabetes Sister Leukemia Sister Review of Systems Constitutional: Negative for chills and fever. Respiratory: Positive for cough and sputum production. Negative for hemoptysis, shortness of breathand wheezing. Cardiovascular: Negative for chest pain. Neurological: Negative for dizziness and headaches. BP 126/74 Pulse 82 Wt 112 lb (50.8kg) SpO2 98% Last 3 Encounter BP Readings: Date: BP: 10/07/2021 126/74 09/02/2021 130/70 07/08/2021 118/70 Last 3 Encounter Wt Readings: Date: Wt: 10/07/2021 112 lb (50.8 kg) 09/02/2021 113 lb 9.6 oz (51.5 kg) 07/08/2021 111 lb (50.3 kg) Physical Exam Vitals and nursing note reviewed. Constitutional: General: She is not in acute distress. Appearance: She is not diaphoretic. Cardiovascular: Rate and Rhythm: Normal rate and regular rhythm. Heart sounds: Normal heart sounds. Pulmonary: Effort: Pulmonary effort is normal. Breath sounds: Normal breath sounds. Comments: Strong dry cough noted throughout exam Skin: General: Skin is warm and dry. Neurological: Mental Status: She is alert and oriented to person, place, and time. Gait: Gait is intact. Psychiatric: Mood and Affect: Affect normal. ASSESSMENT/PLAN: 1. Acute bronchitis, unspecified organism - ICD9: 466.0, ICD10: J20.9 -Due to ongoing symptoms, will start augmentin - BENZONATATE 100 MG CAPSULE - XR CHEST 2V FRONTAL/LAT - AMOXICILLIN 875 MG-POTASSIUM CLAVULANATE 125 MG TABLET - Continue supportive care with plenty of fluids and rest along with OTC medications for symptoms -Consider steroids if symptoms do not improve next week Leonardo Lyles APRN.[employer] B[employer]ER [employer]E Return in about 10 weeks (around 12/16/2021) for 40 Min Wellness Exam. Discussed above plan with patient. Pt agreeable with above plan. Please note: This note has been produced using speech recognition software and may contain errors related to that system including grammar, punctuation, spelling, gender and words and phrases that may be inappropriate. documented in this encounterLakehealth [facility]point [facility] Center11-30-2021 NoteHospitalist Discharge Summary Kathryn Tamez : 1940 Admit date: 05/07/2021 Discharge date: 05/10/2021 Admitting Physician: Rocky Avery MD Primary Care Physician: Leonardo Lyles, [facility] Discharge Diagnoses: 1. Syncope-?-patient reports?she does not recall the fall itself, and had a similar episode several years ago 2. Fall 3. GERD 4. Depression 5. Anxiety 6. Hypothyroidism 7. Migraine headache ? Hospital Course: Improved. Kathryn is a 80 y.o. female with past medical history below who presents with chief complaint listed above. Patient presented to ED following an episode of falling. Patient has given different reports of the episode throughout her stay in ED, including passing out And falling, or bring unable to catch herself and falling. She reported to this COMMUNITY ORGANIZATION AIDE that she does not remember the actual fall, only her family member yelling at her afterwards that she fell. Patient was admitted for further evaluation Had IV hydration She has a h/o migraine headache and takes imitrex at home -added imitrex carotid duplex negative Echo negative Activity with PT/OT Today patient is doing okay denied any complaint. She is walking around with no dizziness. She will be discharged in stable condition ? ADULT DIET; Regular; Low Fat/Low Chol/High Fiber/JULIETA Vitals: BP (!) 114/49 Pulse 64 Temp 97.9 ?F (36.6 ?C) (Temporal) Resp 16 Ht 5' (1.524 m) Wt 106 lb (48.1 kg) SpO2 97% BMI 20.70 kg/m? Pulse Ox: SpO2 Av.8 % Min: 93 % Max: 97 % Supplemental O2: General appearance: alert and cooperative with exam Lungs: clear to auscultation bilaterally Heart: regular rate and rhythm, S1, S2 normal, no murmur, click, rub or gallop Abdomen: soft, non-tender; bowel sounds normal; no masses, no organomegaly Extremities: extremities normal, atraumatic, no cyanosis or edema Neurologic: No obvious focal neurologic deficits. Recent Labs 05/07/21185605/09/21416 WBC 6.7 6.7 HGB 11.7 11.0* PLT 216 192 Recent Labs 05/07/21185605/09/21416 NA 140 139 K 4.3 3.9 CL 106 107 CO2 28 26 BUN 14 8* CREATININE 0.75 0.75 GLUCOSE 100 97 Recent Labs 05/09/21416 AST 22 ALT 13 BILITOT 0.4 ALKPHOS 56 No results found for: TRIG, HDL, LDLCALC, CHOL No results found for: PHART, PO2ART, [id number] No results for input(s): INR in the last 72 hours. No results for input(s): DDIMER in the last 72 hours. No components found for: HGBA1C Lab Results Component Value Date TSH 12.423 04/21/2021 Urine Culture: Results for orders placed or performed during the hospital encounter of 04/21/21 Culture, Urine Specimen: Urine urine Result Value Ref Range Urine Culture, Routine Escherichia coli (A) Urine Culture, Routine >100,000 CFU/ml Susceptibility Escherichia coli - BACTERIAL SUSCEPTIBILITY PANEL BY FARRAH ampicillin <=2 Sensitive ug/mL ceFAZolin <=4 Sensitive ug/mL cefTRIAXone <=1 Sensitive ug/mL cefepime <=1 Sensitive ug/mL aztreonam <=1 Sensitive ug/mL amoxicillin-clavulanate <=2 Sensitive ug/mL ampicillin-sulbactam <=2 Sensitive ug/mL piperacillin-tazobactam <=4 Sensitive ug/mL meropenem <=0.25 Sensitive ug/mL ciprofloxacin <=0.25 Sensitive ug/mL trimethoprim-sulfamethoxazole <=20 Sensitive ug/mL nitrofurantoin <=16 Sensitive ug/mL gentamicin <=1 Sensitive ug/mL amikacin <=2 Sensitive ug/mL Significant Diagnostic Studies: ECHO Complete 2D W Doppler W Color Result Date: 05/09/2021 TRANSTHORACIC ECHOCARDIOGRAM PATIENT: Dashawn, STUDY DATE: 05/09/2021 Kathryn Sharma : 1940 AGE: 80 HT/WT: 152.4 cm (60 48.1 kg (105.8 in) lb) GENDER: F BP: 112 / 53 LOCATION: [facility] PATIENT Observation main STATUS: *ORDERING PHYSICIAN: * Kay Ivey *READING PHYSICIAN: * Olivier, *GUEST SERVICE HOST: * Theresa Olivo [facility] [[email or web address]] INDICATIONS: Syncope. CONCLUSIONS SUMMARY: 1. Left ventricle: The cavity size is normal. Wall thickness is mildly increased. Systolic function is normal by the biplane method of disks. The estimated ejection fraction is 64%. There are no regional wall motion abnormalities. 2. Right ventricle: The cavity size is normal. Systolic function is normal. 3. Tricuspid valve: There is mild, 1+ regurgitation. 4. Technically difficult study. STUDY DATA: Complete transthoracic echocardiogram. Procedure: Image quality was adequate. M-mode, complete 2D, complete spectral Doppler, and color flow Doppler images were acquired and archived for permanent storage and are available for subsequent review. Study status: Routine. Patient status: Observation. (more content not included)...[facility]11-30-2021 Hospital course Narrative* Juliano Gonzalez MD - 05/10/2021 10:16 AM EST Hospitalist Discharge Summary Kathryn Tamez : 1940 Admit date: 05/07/2021 Discharge date: 05/10/2021 Admitting Physician: Rocky Avery MD Primary Care Physician: Leonardo Lyles APRN - [facility] Discharge Diagnoses: 1. Syncope- -patient reports she does not recall the fall itself, and had a similar episode severalyears ago 2. Fall 3. GERD 4. Depression 5. Anxiety 6. Hypothyroidism 7. Migraine headache Hospital Course: Improved. Kathryn is a 80 y.o. female with past medical history below who presents with chief complaint listed above. Patient presented to ED following an episode of falling. Patient has given different reports of the episode throughout her stay in ED, including passing out And falling, or bring unable tocatch herself and falling. She reported to this COMMUNITY ORGANIZATION AIDE that she does not remember the actual fall, onlyher family member yelling at her afterwards that she fell. Patient was admitted for further evaluation Had IV hydration She has a h/o migraine headache and takes imitrex at home -added imitrex carotid duplex negative Echo negative Activity with PT/OT Today patient is doing okay denied any complaint. She is walking around with no dizziness. She willbe discharged in stable condition ADULT DIET; Regular; Low Fat/Low Chol/High Fiber/JULIETA Vitals: BP (!) 114/49 Pulse 64 Temp 97.9 F (36.6 C) (Temporal) Resp 16 Ht 5' (1.524 m) Wt106 lb (48.1 kg) SpO2 97% BMI 20.70 kg/m Pulse Ox: SpO2 Av.8 % Min: 93 % Max: 97 % Supplemental O2: General appearance: alert and cooperative with exam Lungs: clear to auscultation bilaterally Heart: regular rate and rhythm, S1, S2 normal, no murmur, click, rub or gallop Abdomen: soft, non-tender; bowel sounds normal; no masses, no organomegaly Extremities: extremities normal, atraumatic, no cyanosis or edema Neurologic: No obvious focal neurologic deficits. Recent Labs 05/07/21185605/09/21416 WBC 6.7 6.7 HGB 11.7 11.0* PLT 216 192 Recent Labs 05/07/21185605/09/21416 NA 140 139 K 4.3 3.9 CL 106 107 CO2 28 26 BUN 14 8* CREATININE 0.75 0.75 GLUCOSE 100 97 Recent Labs 05/09/21416 AST 22 ALT 13 BILITOT 0.4 ALKPHOS 56 No results found for: TRIG, HDL, LDLCALC, CHOL No results found for: PHART, PO2ART, [id number] No results for input(s): INR in the last 72 hours. No results for input(s): DDIMER in the last 72 hours. No components found for: HGBA1C Lab Results Component Value Date TSH 12.423 04/21/2021 Urine Culture: Results for orders placed or performed during the hospital encounter of 04/21/21 Culture, Urine Specimen: Urine urine Result Value Ref Range Urine Culture, Routine Escherichia coli (A) Urine Culture, Routine >100,000 CFU/ml Susceptibility Escherichia coli - BACTERIAL SUSCEPTIBILITY PANEL BY FARRAH ampicillin <=2 Sensitive ug/mL ceFAZolin <=4 Sensitive ug/mL cefTRIAXone <=1 Sensitive ug/mL cefepime <=1 Sensitive ug/mL aztreonam <=1 Sensitive ug/mL amoxicillin-clavulanate <=2 Sensitive ug/mL ampicillin-sulbactam <=2 Sensitive ug/mL piperacillin-tazobactam <=4 Sensitive ug/mL meropenem <=0.25 Sensitive ug/mL ciprofloxacin <=0.25 Sensitive ug/mL trimethoprim-sulfamethoxazole <=20 Sensitive ug/mL nitrofurantoin <=16 Sensitive ug/mL gentamicin <=1 Sensitive ug/mL amikacin <=2 Sensitive ug/mL Significant Diagnostic Studies: ECHO Complete 2D W Doppler W Color Result Date: 05/09/2021 TRANSTHORACIC ECHOCARDIOGRAM PATIENT: Dashawn, STUDY DATE: 05/09/2021 Kathryn Sharma : 1940 AGE: 80 HT/WT: 152.4 cm (60 48.1 kg (105.8 in) lb) GENDER: F BP: 112 / 53 LOCATION: [facility] PATIENT Observation main STATUS: *ORDERINGPHYSICIAN: * Kay Ivey *READING PHYSICIAN: * Olivier, *GUEST SERVICE HOST: * Theresa Bhandari INDICATIONS: Syncope. CONCLUSIONS SUMMARY: 1. Left ventricle: The cavity size is normal. Wall thickness is mildly increased. Systolic function is normal by the biplane method of disks. The estimated ejection fraction is 64%. There are no regional wall motion abnormalities. 2. Right ventricle: The cavity size is normal. Systolic function is normal. 3. Tricuspid valve: There is mild, 1+ regurgitation. 4. Technically difficult study. STUDY DATA: Complete transthoracic echocardiogram. Procedure: Image quality was adequate. M-mode, complete 2D, complete spectral Doppler, andcolor flow Doppler images were acquired and archived for permanent storage and are available for subsequent review. Study status: Routine. Patient status: Observation. FINDINGS LEFT VENTRICLE: The cavity size is normal. Wall thickness is mildly increased. Systolic function is normal by the biplane method of disks. The estimated ejection fraction is 64%. There are no regional wall motion abnormalities. Left ventricular diastolic function parameters are normal. RIGHT VENTRICLE: The cavity size is normal. Systolic function is normal. Right ventricular systolic pressure is within the normal range. VENTRICULAR SEPTUM: There is no evidence of a ventricular septal defect. LEFT ATRIUM: The atrium is normal in size. RIGHT ATRIUM: The atrium is normal in size. ATRIAL SEPTUM: Color Doppler shows no shunt. MITRAL VALVE: Structurally normal valve. Doppler: There is no regurgitation. The peak diastolic gradient is 2 mm Hg. AORTIC VALVE: Structurally normal valve. Trileaflet. Doppler: There is no regurgitation. Dimensionless index: 1. The valve area by the velocity-time integral method is 2.9 cm^2. The valve area index by the velocity-time integral method is 2 cm^2/m^2. The mean systolic gradient is 3 mm Hg. The peak systolic gradient is 5 mm Hg. The peak systolic velocity is 1.2 m/sec. TRICUSPID VALVE: Structurally normal valve. Doppler: There is mild, 1+ regurgitation. PULMONIC VALVE: Structurally normal valve. Doppler: There is trivial, less than 1+ regurgitation. AORTA: The aorta is normal. PULMONARY ARTERY: Mainpulmonary artery: Normal. PERICARDIUM: Prominent epicardial fat is present. There is no pericardialeffusion. SYSTEMIC VEINS: Inferior vena cava: The vessel is normal. The IVC collapses by greater than 50% with inspiration. Hepatic veins: The flow pattern is normal. Measurements Value Reference Aortic root ID 3.0 cm <3.7 Aortic root ID, STJ, ED 2.3 cm 2.0 - 3.2 Aortic root ID/bsa, STJ, ED 1.6 cm/m^2 1.1 - 1.9 Value Reference Ascending aorta ID 2.9 cm 1.9 - 3.5 Ascending aorta ID/bsa, A-P 2.0 cm/m^2 1.0 - 2.2 Ascending aorta ID, A-P, S 2.9 cm Ascending aorta ID/bsa, A-P, S 2.0 cm/m^2 IVC Value Ref erence ID 1.5 cm Left ventricle Value Reference LV ID, ED 4.6 cm 3.8 - 5.2 LV ID, ES 2.9cm 2.2 - 3.5 LV ID/bsa, ED (H) 3.2 cm/m^2 2.3 - 3.1 LV ID/bsa, ES 2.0 cm/m^2 1.3 - 2.1 LV PW thickness, ED (H) 1.1 cm 0.6 - 0.9 LV PW/LV ID ratio, ED 0.23 LV wall mass (H) 193 g 66 - 150 LV wall mass/bsa (H) 135 g/m^2 44 - 88 Stroke volume/bsa, 1-p A2C 21.9 ml/m^2 LV end-diastolic volume, 1-p A4C 54 ml 48 - 140 LV end-systolic volume, 1-p A4C 20 ml 12 - 60 LV end-diastolic volume, 2-p 51 ml 46 - 106 LV end-systolic volume, 2-p 18 ml 14 - 42 LV ejection fraction, 2-p 64 % 54 - 74 LV E/e', lateral 9.1 LV E/e', medial 9.9 LV E/e', average 9.5 Ventricular septum Value Reference IVS thickness, ED (H) 1.2 cm 0.6 - 0.9 LVOT Value Reference LVOT ID, A-P 1.9 cm LVOT mean velocity, S 0.7 m/sec LVOT peak gradient, S 5 mm Hg Stroke volume (SV), LVOT DP 66 ml Stroke index (SV/bsa), LVOT DP 46 ml/m^2 Aortic valve Value Reference Aortic valve peak velocity, S 1.2 m/sec Aortic valve mean velocity, S 0.8 m/sec Aortic mean gradient, S 3 mm Hg Aortic peak gradient, S 5 mm Hg DI 1 Aortic valve area, VTI 2.9 cm^2 Aortic valve area/bsa, VTI 2 cm^2/m^2 Left atrium Value Reference LA volume/bsa, ES, 2-p 27 ml/m^2 16 - 34 Mitral valve Value Reference Mitral E-wave peak velocity 0.8 m/sec Mitral A-wave peak velocity 1 m/sec Mitral deceleration time 164 ms Mitral peak gradient, D 2 mm Hg Mitral E/A ratio, peak 0.8 Tricuspid valve Value Reference Tricuspid regurgpeak velocity 2.7 m/sec <=2.8 Tricuspid peak RV-RA gradient 28 mm Hg Right atrium Value Reference RA area, ES, A4C 14 cm^2 10 - 18 Systemic veins Value Reference Estimated RAP 3 mm Hg Right ventricle Value Reference RV ID, minor axis, ED, A4C base 3.3 cm 2.5 - 4.1 RV ID, minor axis, ED, A4C mid 2.1 cm 1.9 - 3.5 TAPSE, 2D 2.3 cm 1.7 - 3.1 RV pressure, S, DP 31 mm Hg RV s', lateral (H) 20.3 cm/sec 6.0 - 13.4 Legend: (L) and (H) bhavesh values outside specified reference range. Electronically signed by Pallavi Aguayo 05/09/2021 10:10 Prior Signatures: XR KNEE LEFT (3 VIEWS) Result Date: 05/07/2021 Patient Name: KATHRYN TAMEZ I Diagnostic Radiology ACCESSION EXAM DATE/TIME PROCEDURE ORDERING PROVIDER [id number] 05/07/2021 20:27 EST CR Knee 3 Views [id number] -YOUSIF GALLO CPT code 23123 Reason For Exam (CR Knee 3 Views Left) knee swelling s/p fall Report LEFT KNEE: CLINICAL INDICATION: Swelling after fall. TECHNIQUE: AP, lateral and tunnel COMPARISON: 06/25/2014 FINDINGS: There is no evidence for fracture or subluxation. Redemonstration of postsurgical changes in the left knee with longstem femoral and tibial components. There is no joint effusion. No bone lesion is identified. There is no other soft tissue abnormality. Report Dictated on --- Final --- Dictated: 05/07/2021 8:24 pm Dictating Physician: MD LOPEZ NICHOLAS Signed Date and Time: 05/07/2021 8:24 pm Signed by: MD LOPEZ NICHOLAS Transcribed Date and Time: 05/07/2021 8:24 CT Head WO Contrast Result Date: 05/07/2021 Patient Name: KATHRYN TAMEZ I Computed Tomography ACCESSIONEXAM DATE/TIME PROCEDURE ORDERING PROVIDER [id number] 05/07/2021 19:[address] Head or Brain w/o [id number] -MCCARTY, Contrast JOSH CPT code 48864 Reason For Exam (CT Head or Brain w/o Contrast) Fall Report CLINICAL INDICATION: Fall COMPARISON: None Technique: Unenhanced [address] images were obtained from skull base to vertex. Images were reformatted in coronal and sagittal projections.Findings: Ventricles: Appropriate in size for the patient's age. Brain Parenchyma There is no CT evidence of an acute intracranial hemorrhage, territorial infarction, midline shift, mass effect, or extra-axial collection. The hernandez-white differentiation remains preserved and the basal cisterns are patent. Bones: The osseous structures are unremarkable without evidence of a fracture. The paranasal sinuses and mastoid air cells remain well aerated. IMPRESSION: No acute intracranial trauma Report Dictated on --- Final --- Dictated: 05/07/2021 7:37 pm Dictating Physician: MD ROSADO YUN ROBERT Signed Date and Time: 05/07/2021 7:41 pm Signed by: MD ROSADO YUN ROBERT Transcribed Date and Time: 05/07/2021 7:37 CT Cervical Spine WO Contrast Result Date: 05/07/2021 Patient Name: KATHRYN TAMEZ I Computed Tomography ACCESSIONEXAM DATE/TIME PROCEDURE ORDERING PROVIDER [id number] 05/07/2021 19:[address] Spine Cervical w/[id number] Nicholas MENDOZA CPT code 77333 Reason For Exam (CT Spine Cervical w/o Contrast)Fall Report CT CERVICAL SPINE: CLINICAL INDICATION: Trauma, pain TECHNIQUE: Transaxial sequence through the cervical spine. Coronal and sagittal reconstructions included. Three dimensional volume rendered and maximum intensity projection reconstruction was performed concurrently with independent workstation software by the radiologist to better visualize the osseous structures in various orientations. COMPARISON: None FINDINGS: Cervical vertebrae, disc spaces and joints: No fracture, subluxation or other malalignment. There are multilevel degenerative changes including facet joint and uncovertebral joint hypertrophy and degenerative endplate changes with disc space narrowing. No bone lesion identified. Spinal canal: Posterior disc osteophyte complexes are present at C4- C5, C5-C6 and C6-C7No bony encroachment upon the cervical spinal canal. Soft tissues: The left thyroid lobe is either markedly atrophic or absent. Other: Mild biapical emphysematous changes and biapical scarring. IMPRESSION: 1. No acute abnormality identified throughout the cervical spine. 2. Multilevel cervical spondylosis. 3. Biapical emphysematous changes and biapical scarring. Report Dictated on --- Final --- Dictated: 05/07/2021 7:41 pm Dictating Physician: MD LOPEZ NICHOLASSigned Date and Time: 05/07/2021 7:47 pm Signed by: MD LOPEZ NICHOLAS Transcribed Date and Time:05/07/2021 7:41 XR CHEST PORTABLE Result Date: 05/07/2021 Patient Name: KATHRYN TAMEZ I [facility]#: [id number] Diagnostic Radiology ACCESSION EXAM DATE/TIME PROCEDURE ORDERING PROVIDER [id number] 05/07/2021 18:54 EST CR Chest Portable [id number] JOSH MENDOZA CPT code 11063 Reason For Exam (CR Chest Portable) Syncope Report CHEST: CLINICAL INDICATION: Syncope TECHNIQUE: AP portable chest COMPARISON: 08/03/2018 FINDINGS: Support devices: None The cardiomediastinal silhouette appears unchanged from the prior exam. There are coarse interstitial markings likely related to chronic pulmonary disease. No consolidation or pulmonary edema. There is no sizable pleural effusion. The osseous structures are unremarkable. IMPRESSION: Coarse interstitial markings likely related to chronic pulmonary disease. No consolidation or pulmonary edema. Report Dictated on --- Final --- Dictated: 05/07/2021 6:41 pm Dictating Physician: MD LOPEZ NICHOLAS Signed Date and Time: 05/07/2021 6:53 pm Signed by: MD LOPEZ NICHOLAS Transcribed Date and Time: 05/07/2021 6:43 VL CAROTID BILATERAL Result Date: 05/09/2021 [facility] Carotid Duplex Report Patient Dashawn, : 1940 Study 05/08/2021 Name: Kathryn Sharma (80yrs) Date: Patient [id number] Age: 80 Account: [id number] ID: Gender: F Loc: 1449 BP: Ordering Physician: Kay Ivey [place] Coordinator: Karma Gold RVT Interpreting Physician: Amandeep Beasley MD Location: [facility] Indications: Dizziness. Conclusions 1. Normal antegrade flow involving the left vertebral artery. 2. Normal antegrade flow involving the right vertebral artery. 3. Mild carotid disease present with less than 50% stenosis involving the right internal carotid artery. 4. Mild carotid disease present with less than 50% stenosis involving the left internal carotid artery. History: Risk factors: Former tobacco use. Study data: Complete carotid duplex study. Grayscale 2D imaging, color Doppler imaging, and spectral Doppler analysis. Location: Vascular laboratory. Procedur e: A vascular evaluation was performed with the patient in the supine position. Images were obtained using a Catglobe E9 vascular ultrasound machine. Findings Carotid/vertebral arteries: Right common carotid: The vessel is tortuous. The distal vessel has heterogeneous plaque. Right internal carotid: The vessel is tortuous. The proximal vessel has heterogeneous plaque. Right external carotid: The vessel is normal; it has no evidence of disease. Right vertebral: The arterial flow direction is antegrade. Left vertebral: The arterial flow direction is antegrade. Left common carotid: The distal vessel has heterogeneous plaque. Left internal carotid: The vessel is tortuous. The proximal vessel has heterogeneous plaque. Leftexternal carotid: The proximal vessel has heterogeneous plaque. Arterial flow: + + + + +Location +PSV(cm/sec)+EDV(cm/sec)+ + + + + +R CCA , prox +50 +13 + +------ --------+ + + +R CCA , mid +56 +17 + + + + + +R CCA , distal+48 +17 + + + + + +R ICA , prox +70 +27 + + ---+ + + +R ICA , mid +77 +27 + + + + + +R ICA, distal+60 +23 + + + + + +R ECA +65 +8 + + + + + +R vertebral +105 +22 + + + + + +R subclavian +75 +0 + + + + + +L CCA , prox +66 +15 + + + + + +L CCA , mid +62 +19 + + + + + +L CCA , distal+69 +24 + + + + + +L ICA , prox +58 +22 + + + + + +L ICA , mid +77 +28 + + + + + +L ICA , distal+65 +23 + +----- ---------+ + + +L ECA +48 +0 + + + + + +L vertebral +66 +24 + + + + + +L subclavian +81 +8 + + + + + Velocity ratios: + +-----+-----+ + +R PSV+L PSV+ +-------- +-----+-----+ +Max ICA / Mid CCA Ratio+1.38 +1.24 + + +-----+-----+ Prepared and electronically signed by Amandeep Beasley MD 05/09/2021 08:22 CT Abdomen Pelvis W Contrast Result Date: 04/21/2021 Patient Name: KATHRYN TAMEZ I Computed Tomography ACCESSIONEXAM DATE/TIME PROCEDURE ORDERING PROVIDER [id number] 04/21/2021 04:[address] Abdomen/Pelvis w/ IV [id number] -NESHEIMGRAYSONIN Contrast (IV Onl CPT code 22424 Q9967 Reason For Exam (CT Abdomen/Pelvis w/ IV Contrast (IV Onl) nausea, vomiting, diarrhea, lower abdominal pain Report CT ABDOMEN AND PELVIS WITH CONTRAST CLINICAL INDICATION: Nausea, vomiting, diarrhea and lower abdominal pain. TECHNIQUE:Multi-axial 3mm sections through the abdomen and pelvis following 75 mL of Isoview contrast media. No oral contrast was administered. Coronal and sagittal reconstructions were reviewed. COMPARISON: . FINDINGS: Lung bases: Normal. Liver: Normal size and contours. No focal lesion. Biliary tree: Cholecystectomy. Mild intra and extrahepatic biliary dilatation is likely secondary to postcholecystectomy state, unchanged from prior exam. Spleen: Normal. Adrenals: Normal. Pancreas: Normal. Kidneys: Right kidney is normal in size and enhances normally. 1.5 cm right mid renal cortical cyst, unchanged. Left kidney is surgically absent. Free air or fluid: None. Mesenteric/retroperitoneal: No adenopathy or inflammation. Aorta: Atherosclerotic calcific aortic and iliac artery changes. Bowel: The appendix is not visualized and no pericecal inflammatory changes are evident.. No dilatation is noted. Abdominal wall: No ventral hernia is evident. Computed Tomography Report Pelvic organs/viscera: No mass identified. Inguinal lymphadenopathy: None. Osseous structures: Levo convexity lumbar spine. Lumbar degenerative spondylosis. Remote healed fracture deformity of left femoral neck fracture with ghost like linear tracts in femoral neck from prior hardware. Right-sided sacral stimulator leadis identified. IMPRESSION: No acute abdominal or pelvic findings to explain symptoms. Prior left nephrectomy. No residual mass or recurrent disease. 1.5 cm right inferior renal cortical cysts. Report Dictated on --- Final --- Dictated: 04/21/2021 5:10 am Dictating Physician: URVASHI GIRALDO DO, I Signed Date and Time: 04/21/2021 5:16 am Signed by: JOSH GIRALDO DO Transcribed Date and Time: 04/21/2021 5:10 Discharge Medications: @DISCHARGEMEDSLIST(<NOROUTINE> error)@ Consults: Disposition: Patient discharged in stable condition. Greater than 30 minutes spent discharging the patient and coming up with patient discharge plan. Follow up with JESSICA Peterson CNP in 1-2 weeks. Signed: Juliano Gonzalez MD, 05/10/2021, 10:16 AM documented [facility] this [facility] Work Phone: [phone]) 717-370711-29-2021 History of Present illness Narrative* Juliano Gonzalez MD - 05/09/2021 12:12 PM EST Hospitalist Progress Note 05/09/2021 12:12 PM Subjective: Admit Date: 05/07/2021 PCP: JESSICA Peterson CNP Interval History: No overnight issues. ADULT DIET; Regular; Low Fat/Low Chol/High Fiber/JULIETA No intake/output data recorded. Patient Vitals for the past 96 hrs (Last 3 readings): Weight 05/07/21 1716 106 lb (48.1 kg) Medications: sodium chloride sodium chloride 75 mL/hr at 05/08/21 1701 SUMAtriptan 50 mg Oral Once sodium chloride flush 5-40 mL IntraVENous 2 times per day enoxaparin 40 mg SubCUTAneous Daily gabapentin 300 mg Oral BID levothyroxine 88 mcg Oral Daily pantoprazole 40 mg Oral QAM AC sertraline 50 mg Oral Daily sodium chloride flush 3 mL IntraVENous Q8H Recent Labs 05/07/21185605/09/21 041 WBC 6.7 6.7 HGB 11.7 11.0* PLT 216 192 Recent Labs 05/07/21185605/09/217 NA 140 139 K 4.3 3.9 CL 106 107 CO2 28 26 BUN 14 8* CREATININE 0.75 0.75 GLUCOSE 100 97 Recent Labs 05/09/21416 AST 22 ALT 13 BILITOT 0.4 ALKPHOS 56 No results found for: TRIG, HDL, LDLCALC, CHOL No results found for: PHART, PO2ART, [id number] No results for input(s): INR in the last 72 hours. Recent Labs 05/07/211856 TROPONINI <0.012 No results for input(s): DDIMER in the last 72 hours. No components found for: HGBA1C Lab Results Component Value Date TSH 12.423 04/21/2021 Urine Culture: Results for orders placed or performed during the hospital encounter of 04/21/21 Culture, Urine Specimen: Urine urine Result Value Ref Range Urine Culture, Routine Escherichia coli (A) Urine Culture, Routine >100,000 CFU/ml Susceptibility Escherichia coli - BACTERIAL SUSCEPTIBILITY PANEL BY FARRAH ampicillin <=2 Sensitive ug/mL ceFAZolin <=4 Sensitive ug/mL cefTRIAXone <=1 Sensitive ug/mL cefepime <=1 Sensitive ug/mL aztreonam <=1 Sensitive ug/mL amoxicillin-clavulanate <=2 Sensitive ug/mL ampicillin-sulbactam <=2 Sensitive ug/mL piperacillin-tazobactam <=4 Sensitive ug/mL meropenem <=0.25 Sensitive ug/mL ciprofloxacin <=0.25 Sensitive ug/mL trimethoprim-sulfamethoxazole <=20 Sensitive ug/mL nitrofurantoin <=16 Sensitive ug/mL gentamicin <=1 Sensitive ug/mL amikacin <=2 Sensitive ug/mL Objective: Vitals: BP (!) 112/53 Pulse 67 Temp 97.5 F (36.4 C) (Temporal) Resp 20 Ht 5' (1.524 m) Wt106 lb (48.1 kg) SpO2 90% BMI 20.70 kg/m Pulse Ox: SpO2 Av % Min: 90 % Max: 93 % Supplemental O2: General appearance: alert and cooperative with exam Lungs: clear to auscultation bilaterally Heart: regular rate and rhythm, S1, S2 normal, no murmur, click, rub or gallop Abdomen: soft, non-tender; bowel sounds normal; no masses, no organomegaly Extremities: extremities normal, atraumatic, no cyanosis or edema Neurologic: No obvious focal neurologic deficits. Assessment 1. Syncope- -patient reports she does not recall the fall itself, and had a similar episode severalyears ago 2. Fall 3. GERD 4. Depression 5. Anxiety 6. Hypothyroidism 7. Migraine headache PLAN: Pt stated she is feeling dizzy today with headache She has a h/o migraine headache and takes imitrex at home -added imitrex carotid duplex negative Echo negative Activity with PT/OT Will re-evaluate later this evening -discharge planning later today or tomorrow morning. Juliano Gonzalez MD, MD [facility] Hospitalist * Alannah Williamson DTR - 05/09/2021 11:28 AM EST Nutrition rescreen completed. Chart reviewed. Patient to be monitored and followed by the diet medical equipment technician. Dietitian available upon request. * Sánchez Iyer PT - 05/09/2021 10:09 AM EST Physical Therapy Facility/Department: [facility] SUR[facility] Initial Assessment NAME: Kathryn Tamez : 1940 Date of Service: 05/09/2021 Discharge Recommendations: Home with assist PRN, Home with Home health PT PT Equipment Recommendations Equipment Needed: No (pt owns necessary DME) Assessment Body structures, Functions, Activity limitations: Decreased functional mobility ; Decreased ROM; Decreased strength; Decreased posture; Increased pain; Decreased balance; Decreased endurance Assessment: Pt with headache at rest which throbs once she becomes upright. Pt states she does not understand reason for fall. 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 Today, pt grossly supv with bed mobility and transfers and CGA with gait (slow). Mobility is sufficiently safefor homegoing, but PT would recommend home health to improve functionality (pt states she is unsureif she feels she needs assist at home and notes dtr will be very helpful). Prognosis: Good Decision Making: Medium Complexity PT Education: Goals; PT Role; Plan of Care REQUIRES PT FOLLOW UP: Yes Activity Tolerance Activity Tolerance: Patient limited by pain; Patient limited by endurance; Treatment limited secondary to medical complications (free text) Patient Diagnosis(es): The encounter diagnosis was Fall, initial encounter. has a past medical history of Back pain, Depression, Gastritis, GERD (gastroesophageal reflux disease), and Hypothyroid. has a past surgical history that includes Hysterectomy (2003); Cholecystectomy (1980); Kidney surgery (Right); back surgery (2018); Total ankle arthroplasty (Right); Thyroidectomy, partial; joint replacement (Left); Kidney removal (Left); Endoscopy, colon, diagnostic (07/2018); and Colonoscopy (07/2018). Restrictions Restrictions/Precautions Restrictions/Precautions: Fall Risk, General Precautions Required Braces or Orthoses?: No Vision/Hearing Vision: Within Functional Limits Hearing: Within functional limits Subjective General Chart Reviewed: Yes Patient assessed for rehabilitation services?: Yes Family / Caregiver Present: No Diagnosis: s/p fall, syncope Follows Commands: Within Functional Limits General Comment Comments: IV Subjective Subjective: Pt comments she was just admitted two weeks ago for 7 days, but did not expound. Pt states she does not recall fall--she was standing in doorway and next she knew she was on floor. Has steady headache currently that throbs once she sits up. She notes some baseline difficulty with mobility due to several surgeries on LLE. Pain Screening Patient Currently in Pain: Yes Pain Assessment Pain Assessment: 0-10 Pain Level: (7/10 in supine, 9/10 once upright) Pain Type: Acute pain Pain Location: Head Vital Signs Patient Currently in Pain: Yes Orientation Orientation Overall Orientation Status: Within Normal Limits Social/Functional History Social/Functional History Lives With: Other (comment) (cousin Vikki) Type of Home: House Home Layout: Two level, Bed/Bath upstairs Home Access: Level entry Bathroom Shower/Tub: Tub/Shower unit Bathroom Toilet: Standard Bathroom Equipment: Grab bars in shower, Shower chair Bathroom Accessibility: Accessible Home Equipment: Cane, Rolling walker, Wheelchair-manual Receives Help From: Family ADL Assistance: Independent Homemaking Assistance: (min) Homemaking Responsibilities: No Ambulation Assistance: Independent Transfer Assistance: Independent 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: Yes Mode of Transportation: Car Education: unknown Occupation: Retired Type of occupation: n/a Leisure & Hobbies: n/a IADL Comments: 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 Was able to perform shopping. Pt notes both dtr and earlier this year. Notes dtr lives nearby and can help with household ADLs as needed. (Comments cousin is there, but doesn't help in self-care ADLs) Additional Comments: n/a Cognition Cognition Cognition Comment: grossly WFL-conversation germane. Pt made comment with some frustration I'm notsure of anything right now (when asked about safely managing at home) Objective Observation/Palpation Posture: Fair Observation: appearance that LLE is shorter in length compared to R--pt agrees. Pt resting in approx 30 deg PF L, but also 25 on R. Scar: L ankle dorsal, extensive surgical scar L knee AROM RLE (degrees) RLE AROM: WFL AROM LLE (degrees) LLE General AROM: L DF to 5 deg, SLR with some difficulty but able to achieve 25 deg. Hip ABD/ ADD WFL AROM RUE (degrees) RUE AROM : WFL AROM LUE (degrees) LUE AROM : WFL Strength Other Other: hip flex R 4/5, L 3/5; knee extn R 5/5, L 4/5, DF R 4/5, L 3+/5; Hip ABD 3+/5 ruddy Motor Control Gross Motor?: WFL Sensation Overall Sensation Status: (pt comments some baseline decrease--notes today has no worsening numbness in LEs) Bed mobility Supine to Sit: Supervision Sit to Supine: Independent Transfers Sit to Stand: Stand by assistance Stand to sit: Stand by assistance Comment: biggest concern is that pt has increased throbbing in head with stance Ambulation Ambulation?: Yes Ambulation 1 Surface: level tile Device: (IV pole (PT offered FWW)) Assistance: Contact guard assistance Distance: 76' Comments: gait speed slow (approx 15'/min). Pt expresses some fatigue. Pt notes normally it takes alittle while for LLE to get going after she stands. Step length approx 8 Stairs/Curb Stairs?: No Balance Posture: Fair Sitting - Static: Good Sitting - Dynamic: Good; - Standing - Static: Fair Standing - Dynamic: Fair Plan Plan Times per week: 3-5 Plan weeks: 2 Current Treatment Recommendations: Balance Training, Functional Mobility Training, Stair training, Gait Training, Endurance Training Safety Devices Type of devices: Left in bed, Call light within reach AM-PAC Score [facility] Inpatient Mobility Raw Score : 21 (05/09/21950) AM-[facility] Inpatient T-Scale Score : 50.25 (05/09/21950) Mobility Inpatient CMS 0-100% Score: 28.97 (05/09/21950) Mobility Inpatient CMS G-Code Modifier : CJ (05/09/21950) Goals Short term goals Time Frame for Short term goals: 2 weeks Short term goal 1: Bed mobility indep Short term goal 2: Sit to stand indep/ modif indep Short term goal 3: Amb 100', w/ or w/o device, supv, gait speed of 25'/min or greater Short term goal 4: 12 stairs, rail, supv Short term goal 5: DGI >=18/24 if no device, 16/24 if device Patient Goals Patient goals : mostly to have head feel better Therapy Time Individual Concurrent Group Co-treatment Time In 925 Time Out 0949 Minutes 23 Patient s Physical Therapy Plan of Care supervision is transferred to [facility] Rehab Department Physical Therapist. PT wore N95 mask, goggles, and gloves throughout entire session with patient. Plan to be activated only if patient is admitted or for assessing discharge needs. Sánchez Iyer PT * Fei Aparicio DO - 05/08/2021 10:58 AM EST Images from the original note were not included. Physician Progress Note 05/08/2021 12:58 PM Name: Kathryn Tamez Day: 0 Admit Date: 05/07/2021 4:15 PM PCP: JESSICA Peterson CNP Code Status: DNR-CCA Assessment and Plan: Active Problems/ diagnosis: IMPRESSION: 1. Syncope- -patient reports she does not recall the fall itself, and had a similar episode severalyears ago 2. Fall 3. GERD 4. Depression 5. Anxiety 6. Hypothyroidism PLAN: - no recurrence of the syncope, tele monitor. -labs benign -trauma imaging negative -echo pending -bilateral carotid US pending -resume IVF -PT/OT -am labs, replace lytes prn -vitals per routine -home meds as ordered -DVT prophylaxis: []? Lovenox []? Heparin []? SCDs [x]? Encourage ambulation After 7 PM, please contact [facility] hospitalist ignition specialist if needed Dispo-pending carotid ultrasound, echocardiogram Subjective: no new events. Denies new symptoms. Physical Examination: Vitals: BP (!) 91/50 Pulse 64 Temp 97.2 F (36.2 C) (Temporal) Resp 16 Ht 5' (1.524 m) Wt 106 lb (48.1 kg) SpO2 95% BMI 20.70 kg/m Temp (24hrs), Av.6 F (36.4 C), Min:96.9 F (36.1 C), Max:98.6 F (37 C) General appearance: alert, cooperative and no distress Mental Status: oriented to person, place and time and normal affect Lungs: clear to auscultation bilaterally, normal effort Heart: regular rate and rhythm, no murmur Abdomen: soft, nontender, nondistended, bowel sounds present, no masses Extremities: no edema, redness, tenderness in the calves Skin: no gross lesions, rashes Data: Labs: Recent Labs 05/07/21 1857 WBC 6.7 HGB 11.7 PLT 216 Recent Labs 05/07/21 1857 NA 140 K 4.3 CL 106 CO2 28 BUN 14 CREATININE 0.75 GLUCOSE 100 No results for input(s): AST, ALT, ALB, BILITOT, ALKPHOS in the last 72 hours. Current Facility-Administered Medications Medication Dose Route Frequency Provider Last Rate Last Admin sodium chloride flush 0.9 % injection 5-40 mL 5-40 mL IntraVENous 2 times per day JESSICA Wilks CNP sodium chloride flush 0.9 % injection 5-40 mL 5-40 mL IntraVENous PRN Kay Ivey APRN - MIKAEL 0.9 % sodium chloride infusion 25 mL IntraVENous PRN JESSICA Wilks CNP enoxaparin (LOVENOX) injection 40 mg 40 mg SubCUTAneous Daily Kay Ivey APRN - [employer] 40 mg at 05/08/21 0722 ondansetron (ZOFRAN-ODT) disintegrating tablet 4 mg 4 mg Oral Q8H PRN JESSICA Wilks CNP Or ondansetron (ZOFRAN) injection 4 mg 4 mg IntraVENous Q6H PRN JESSICA Wilks CNP polyethylene glycol (GLYCOLAX) packet 17 g 17 g Oral Daily PRN JESSICA Wilks CNP acetaminophen (TYLENOL) tablet 650 mg 650 mg Oral Q6H PRN Kay Ivey APRN - [employer] 650 mg at 05/08/21 0100 Or acetaminophen (TYLENOL) suppository 650 mg 650 mg Rectal Q6H PRN JESSICA Wilks CNP perflutren lipid microspheres (DEFINITY) injection 1.65 mg 1.5 mL IntraVENous ONCE PRN JESSICA Wilks CNP sodium chloride flush 0.9 % injection 5-40 mL 5-40 mL IntraVENous PRN JESSICA Wilks CNP diphenhydrAMINE (BENADRYL) injection 25 mg 25 mg IntraMUSCular Once PRN JESSICA Wilks CNP EPINEPHrine PF 1 MG/ML injection 0.3 mg 0.3 mg IntraMUSCular Once PRN JESSICA Wilks CNP 0.9 % sodium chloride infusion IntraVENous Continuous JESSICA Wilks CNP 75 mL/hr at 05/08/21 0116 New Bag at 05/08/21 0116 gabapentin (NEURONTIN) capsule 300 mg 300 mg Oral BID Rocky Avery MD 300 mg at 05/08/21 0722 levothyroxine (SYNTHROID) tablet 88 mcg 88 mcg Oral Daily Rocky Avery MD 88 mcg at 05/08/21 0545 pantoprazole (PROTONIX) tablet 40 mg 40 mg Oral QAM AC Rocky Avery MD 40 mg at 05/08/21 0545 sertraline (ZOLOFT) tablet 50 mg 50 mg Oral Daily Rocky Avery MD 50 mg at 05/08/21 0722 sodium chloride flush 0.9 % injection 3 mL 3 mL IntraVENous Q8H MAXINE Chaidez 3 mL at 05/08/21 0859 oxyCODONE (ROXICODONE) immediate release tablet 5 mg 5 mg Oral Q4H PRN JESSICA Wilks CNP Or oxyCODONE (ROXICODONE) immediate release tablet 10 mg 10 mg Oral Q4H PRN JESSICA Wilks CNP 10 mg at 05/08/21 1136 Additional work up or/and treatment plan may be added today or then after based on clinical progression. I am managing a portion of pt care. Some medical issues are handled by other specialists. Additional work up and treatment should be done in out pt setting by pt PCP and other out pt providers. In addition to examining and evaluating pt, I spent additional time explaining care, normaland abnormal findings, and treatment plan. All of pt questions were answered. Counseling, diet and educationwere provided. Case will be discussed with nursing staff when appropriate. Family will be updated if and when appropriate. [facility] this [facility] Work Phone: 1(711) 487-308111-16-2021 NoteHospitalist Discharge Summary Kathryn Tamez : 1940 Admit date: 04/21/2021 Discharge date: 04/26/2021 Admitting Physician: Faina Edge MD Primary Care Physician: JESSICA Peterson CNP Discharge Diagnoses: Active Problems: ??Diarrhea Resolved Problems: ??* No resolved hospital problems. * ? ? #diarrhea 2/2 astrovirus infection - IVF, supportive care, contact precautions - immodium prn ? #hypokalemia: replace and recheck ? #hypothyroidism - resume synthroid ? Hospital Course: Improved. Kathryn is a 80 y.o. female with past medical history of hypothyroidism, depression, GERD and gastritis who presents with chief complaint persistent diarrhea that started on Sunday prior to admission. It was associated with nausea but no vomiting, nonbloody diarrhea on Sunday. The diarrhea occurs every few minutes and is associated with mild abdominal pain #diarrhea 2/2 astrovirus infection - IVF, supportive care, contact precautions - immodium prn ? #hypokalemia: replace and recheck ? #hypothyroidism - resume synthroid 04/25: Diarrhea slowing down. Rectal tube removed. Cont gentle iV hydration. Encourage PO intake. Cont supportive management. Replace lytes as needed increase activity as tolerated, PT/OT ? 05/06: Today pt is doing better. Diarrhea resolved. Eating ok. Will be discharged home in stable condition. ADULT DIET; Regular ADULT ORAL NUTRITION SUPPLEMENT; Dinner; Standard High Calorie/High Protein Oral Supplement Vitals: BP (!) 116/52 Pulse 58 Temp 97.3 ?F (36.3 ?C) (Temporal) Resp 17 Ht 5' 1 (1.549 m) Wt 107 lb (48.5 kg) SpO2 94% BMI 20.22 kg/m? Pulse Ox: SpO2 Av.5 % Min: 94 % Max: 95 % Supplemental O2: General appearance: alert and cooperative with exam Lungs: clear to auscultation bilaterally Heart: regular rate and rhythm, S1, S2 normal, no murmur, click, rub or gallop Abdomen: soft, non-tender; bowel sounds normal; no masses, no organomegaly Extremities: extremities normal, atraumatic, no cyanosis or edema Neurologic: No obvious focal neurologic deficits. No results for input(s): WBC, HGB, PLT in the last 72 hours. Recent Labs 04/24/21 0237 04/26/21 0408 NA 138 142 K 3.6 3.2* CL 112* 110* CO2 20* 28 BUN 4* 5* CREATININE 0.61 0.56 GLUCOSE 98 92 No results for input(s): AST, ALT, ALB, BILITOT, ALKPHOS in the last 72 hours. No results found for: TRIG, HDL, LDLCALC, CHOL No results found for: PHART, PO2ART, [id number] No results for input(s): INR in the last 72 hours. No results for input(s): DDIMER in the last 72 hours. No components found for: HGBA1C Lab Results Component Value Date TSH 12.423 04/21/2021 Urine Culture: Results for orders placed or performed during the hospital encounter of 04/21/21 Culture, Urine Specimen: Urine urine Result Value Ref Range Urine Culture, Routine Escherichia coli (A) Urine Culture, Routine >100,000 CFU/ml Susceptibility Escherichia coli - BACTERIAL SUSCEPTIBILITY PANEL BY FARRAH ampicillin <=2 Sensitive ug/mL ceFAZolin <=4 Sensitive ug/mL cefTRIAXone <=1 Sensitive ug/mL cefepime <=1 Sensitive ug/mL aztreonam <=1 Sensitive ug/mL amoxicillin-clavulanate <=2 Sensitive ug/mL ampicillin-sulbactam <=2 Sensitive ug/mL piperacillin-tazobactam <=4 Sensitive ug/mL meropenem <=0.25 Sensitive ug/mL ciprofloxacin <=0.25 Sensitive ug/mL trimethoprim-sulfamethoxazole <=20 Sensitive ug/mL nitrofurantoin <=16 Sensitive ug/mL gentamicin <=1 Sensitive ug/mL amikacin <=2 Sensitive ug/mL Significant Diagnostic Studies: CT Abdomen Pelvis W Contrast Result Date: 04/21/2021 Patient Name: KATHRYN TAMEZ I Computed Tomography ACCESSION EXAM DATE/TIME PROCEDURE ORDERING PROVIDER [id number] 04/21/2021 04:[address] Abdomen/Pelvis w/ IV [id number] -DEJON TRIPP Contrast (IV Onl CPT code 07729 Q9967 Reason For Exam (CT Abdomen/Pelvis w/ IV Contrast (IV Onl) nausea, vomiting, diarrhea, lower abdominal pain Report CT ABDOMEN AND PELVIS WITH CONTRAST CLINICAL INDICATION: Nausea, vomiting, diarrheaand lower abdominal pain. TECHNIQUE: Multi-axial 3mm sections through the abdomen and pelvis following 75 mL of Isoview contrast media. No oral contrast was administered. Coronal and sagittal reconstructions were reviewed. COMPARISON: 08/03/2018. FINDINGS: Lung bases: Normal. Liver: Normal size and contours. No focal lesion. Biliary tree: Cholecystectomy. Mild intra and extrahepatic biliary dilatation is likely secondary to postcholecystectomy state, unchanged from prior exam. Spleen: Normal. Adrenals: Normal. Pancreas: Normal. Kidneys: Right kidney is normal in size and enhances normally. 1.5 cm right mid renal cortical cyst, unchanged. Left kidney is surgically absent. Free air or fluid: None. Mesenteric/retroperitoneal: No adenopathy or inflammation. Aorta: Atherosclerotic calcific aortic and (more content not included)...[facility]11-16-2021 Hospital course Narrative* Juliano Gonzalez MD - 04/26/2021 10:44 AM EST Hospitalist Discharge Summary Kathryn Tamez : 1940 Admit date: 04/21/2021 Discharge date: 04/26/2021 Admitting Physician: Faina Edge MD Primary Care Physician: Leonardo Lyles APRN - [employer] Discharge Diagnoses: Active Problems: Diarrhea Resolved Problems: * No resolved hospital problems. * #diarrhea 2/2 astrovirus infection - IVF, supportive care, contact precautions - immodium prn #hypokalemia: replace and recheck #hypothyroidism - resume synthroid Hospital Course: Improved. Kathryn is a 80 y.o. female with past medical history of hypothyroidism, depression, GERD and gastritis who presents with chief complaint persistent diarrhea that started on Sunday prior to admission. It was associated with nausea but no vomiting, nonbloody diarrhea on Sunday. The diarrhea occurs every few minutes and is associated with mild abdominal pain #diarrhea 2/2 astrovirus infection - IVF, supportive care, contact precautions - immodium prn #hypokalemia: replace and recheck #hypothyroidism - resume synthroid 04/25: Diarrhea slowing down. Rectal tube removed. Cont gentle iV hydration. Encourage PO intake. Cont supportive management. Replace lytes as needed increase activity as tolerated, PT/OT 05/06: Today pt is doing better. Diarrhea resolved. Eating ok. Will be discharged home in stable condition. ADULT DIET; Regular ADULT ORAL NUTRITION SUPPLEMENT; Dinner; Standard High Calorie/High Protein Oral Supplement Vitals: BP (!) 116/52 Pulse 58 Temp 97.3 F (36.3 C) (Temporal) Resp 17 Ht 5' 1 (1.549 m) Wt 107 lb (48.5 kg) SpO2 94% BMI 20.22 kg/m Pulse Ox: SpO2 Av.5 % Min: 94 % Max: 95 % Supplemental O2: General appearance: alert and cooperative with exam Lungs: clear to auscultation bilaterally Heart: regular rate and rhythm, S1, S2 normal, no murmur, click, rub or gallop Abdomen: soft, non-tender; bowel sounds normal; no masses, no organomegaly Extremities: extremities normal, atraumatic, no cyanosis or edema Neurologic: No obvious focal neurologic deficits. No results for input(s): WBC, HGB, PLT in the last 72 hours. Recent Labs 04/24/21 0237 04/26/21 0408 NA 138 142 K 3.6 3.2* CL 112* 110* CO2 20* 28 BUN 4* 5* CREATININE 0.61 0.56 GLUCOSE 98 92 No results for input(s): AST, ALT, ALB, BILITOT, ALKPHOS in the last 72 hours. No results found for: TRIG, HDL, LDLCALC, CHOL No results found for: PHART, PO2ART, [id number] No results for input(s): INR in the last 72 hours. No results for input(s): DDIMER in the last 72 hours. No components found for: HGBA1C Lab Results Component Value Date TSH 12.423 04/21/2021 Urine Culture: Results for orders placed or performed during the hospital encounter of 04/21/21 Culture, Urine Specimen: Urine urine Result Value Ref Range Urine Culture, Routine Escherichia coli (A) Urine Culture, Routine >100,000 CFU/ml Susceptibility Escherichia coli - BACTERIAL SUSCEPTIBILITY PANEL BY FARRAH ampicillin <=2 Sensitive ug/mL ceFAZolin <=4 Sensitive ug/mL cefTRIAXone <=1 Sensitive ug/mL cefepime <=1 Sensitive ug/mL aztreonam <=1 Sensitive ug/mL amoxicillin-clavulanate <=2 Sensitive ug/mL ampicillin-sulbactam <=2 Sensitive ug/mL piperacillin-tazobactam <=4 Sensitive ug/mL meropenem <=0.25 Sensitive ug/mL ciprofloxacin <=0.25 Sensitive ug/mL trimethoprim-sulfamethoxazole <=20 Sensitive ug/mL nitrofurantoin <=16 Sensitive ug/mL gentamicin <=1 Sensitive ug/mL amikacin <=2 Sensitive ug/mL Significant Diagnostic Studies: CT Abdomen Pelvis W Contrast Result Date: 04/21/2021 Patient [id number] Computed Tomography ACCESSIONEXAM DATE/TIME PROCEDURE ORDERING PROVIDER [id number] 04/21/2021 04:[address] Abdomen/Pelvis w/ IV [id number] -GRAYSON TRIPPIN Contrast (IV Onl CPT code 64708 Q9967 Reason For Exam (CT Abdomen/Pelvis w/ IV Contrast (IV Onl) nausea, vomiting, diarrhea, lower abdominal pain Report CT ABDOMEN AND PELVIS WITH CONTRAST CLINICAL INDICATION: Nausea, vomiting, diarrhea and lower abdominal pain. TECHNIQUE:Multi-axial 3mm sections through the abdomen and pelvis following 75 mL of Isoview contrast media. No oral contrast was administered. Coronal and sagittal reconstructions were reviewed. COMPARISON: . FINDINGS: Lung bases: Normal. Liver: Normal size and contours. No focal lesion. Biliary tree: Cholecystectomy. Mild intra and extrahepatic biliary dilatation is likely secondary to postcholecystectomy state, unchanged from prior exam. Spleen: Normal. Adrenals: Normal. Pancreas: Normal. Kidneys: Right kidney is normal in size and enhances normally. 1.5 cm right mid renal cortical cyst, unchanged. Left kidney is surgically absent. Free air or fluid: None. Mesenteric/retroperitoneal: No adenopathy or inflammation. Aorta: Atherosclerotic calcific aortic and iliac artery changes. Bowel: The appendix is not visualized and no pericecal inflammatory changes are evident.. No dilatation is noted. Abdominal wall: No ventral hernia is evident. Computed Tomography Report Pelvic organs/viscera: No mass identified. Inguinal lymphadenopathy: None. Osseous structures: Levo convexity lumbar spine. Lumbar degenerative spondylosis. Remote healed fracture deformity of left femoral neck fracture with ghost like linear tracts in femoral neck from prior hardware. Right-sided sacral stimulator leadis identified. IMPRESSION: No acute abdominal or pelvic findings to explain symptoms. Prior left nephrectomy. No residual mass or recurrent disease. 1.5 cm right inferior renal cortical cysts. Report Dictated on --- Final --- Dictated: 04/21/2021 5:10 am Dictating Physician: URVASHI GIRALDO DO, I Signed Date and Time: 04/21/2021 5:16 am Signed by: JOSH GIRALDO DO Transcribed Date and Time: 04/21/2021 5:10 Discharge Medications: @DISCHARGEMEDSLIST(<NOROUTINE> error)@ Consults: Disposition: Patient discharged in stable condition. Greater than 30 minutes spent discharging the patient and coming up with patient discharge plan. Follow up with JESSICA Peterson CNP in 1-2 weeks. Signed: Juliano Gonzalez MD, 04/26/2021, 10:44 AM documented in this [facility] Work Phone: 1(751) 898-603611-15-2021 History of Present illness Narrative* Nga Cedeno - 04/25/2021 1:42 PM EST Physical Therapy Facility/Department: [facility] Initial Assessment NAME: Kathryn Tamez : 1940 Date of Service: 04/25/2021 Discharge Recommendations: Continue to assess pending progress, Home with assist PRN (facility based therapy) PT Equipment Recommendations Equipment Needed: No Assessment Body structures, Functions, Activity limitations: Decreased functional mobility ; Decreased strength; Decreased balance; Decreased endurance Assessment: Pt presents with above listed impairments status post gastroenteritis. Supervision for bed mobility and transfers. Attempted to ambulate with no AD, required min assist for balance and deviated path. Improved gait with FWW, however remained slighty unsteady with control steps, distance l imited by nausea. Currently recommend facility based therapy, pt can progress to home with improvedbalance and functional mobility. Prognosis: Good Decision Making: Medium Complexity Activity Tolerance Activity Tolerance: Patient limited by fatigue; Patient limited by endurance; Other (limited by nausea) Patient Diagnosis(es): The primary encounter diagnosis was Nausea and vomiting, intractability of vomiting not specified, unspecified vomiting type. Diagnoses of Diarrhea, unspecified type and Generalized abdominal pain were also pertinent to this visit. has a past medical history of Back pain, Depression, Gastritis, GERD (gastroesophageal reflux disease), and Hypothyroid. has a past surgical history that includes Hysterectomy (2003); Cholecystectomy (1980); Kidney surgery (Right); back surgery (2018); Total ankle arthroplasty (Right); Thyroidectomy, partial; joint replacement (Left); Kidney removal (Left); Endoscopy, colon, diagnostic (07/2018); and Colonoscopy (07/2018). Restrictions Restrictions/Precautions Restrictions/Precautions: Contact Precautions, Isolation, Fall Risk Vision/Hearing Subjective General Patient assessed for rehabilitation services?: Yes Family / Caregiver Present: No Diagnosis: Gastroenteritis, Diarrhea Follows Commands: Within Functional Limits Subjective Subjective: Pt in bed and agreeable to therapy Pain Screening Patient Currently in Pain: Denies Vital Signs Patient Currently in Pain: Denies Orientation Orientation Overall Orientation Status: Within Normal Limits Social/Functional History Social/Functional History Lives With: Family Type of Home: House Home Layout: Two level, 1/2 bath on main level, Bed/Bath upstairs Bathroom Shower/Tub: Tub/Shower unit, Shower chair with back Bathroom Toilet: Standard Bathroom Equipment: Grab bars in shower, Shower chair Bathroom Accessibility: Accessible Home Equipment: Rolling walker Receives Help From: (NA) ADL Assistance: Independent Homemaking Assistance: Independent Homemaking Responsibilities: Yes Ambulation Assistance: Independent Transfer Assistance: Independent 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: Yes Mode of Transportation: Car Cognition Objective AROM RLE (degrees) RLE AROM: WNL AROM LLE (degrees) LLE AROM : WFL LLE General AROM: Decresed ROM in L hip and knee due to previous surgery Strength RLE Strength RLE: WFL Comment: Grossly 4/5 Strength LLE Strength LLE: WFL Comment: Grossly 4/5 Sensation Overall Sensation Status: WNL Bed mobility Supine to Sit: Supervision Sit to Supine: Supervision Scooting: Supervision Transfers Sit to Stand: Supervision Stand to sit: Supervision Ambulation Ambulation?: Yes More Ambulation?: Yes Ambulation 1 Surface: level tile Device: No Device; Hand-Held Assist Assistance: Contact guard assistance; Minimal assistance Gait Deviations: Slow Renetta; Decreased step length; Decreased step height; Deviated path; Staggers Distance: 5 ft Comments: Pt attempted to ambulated without AD, significant unsteadiness and staggering, required hand held assist and UE support from wall, devaited to the L, slight LOB requiring min assist Ambulation 2 Surface - 2: level tile Device 2: Rolling Walker Assistance 2: Stand by assistance; Contact guard assistance Gait Deviations: Slow Renetta; Decreased step length; Decreased step height Distance: 30 ft Comments: Gait and balance improved with AD, remained slightly unsteady within walker requiring CGA. Pt reported increasing nausea with increased ambulated, distance limited due to nausea, recovered when returned to supine Stairs/Curb Stairs?: No Balance Posture: Good Sitting - Static: Good Sitting - Dynamic: Good Standing - Static: Fair; + Standing - Dynamic: Fair; - Comments: BUE support in standing for balance Plan Plan Times per week: 3-5 Plan weeks: 2 Current Treatment Recommendations: Strengthening, Balance Training, Endurance Training, Transfer Training, Gait Training, Functional Mobility Training, Safety Education & Training Safety Devices Type of devices: All fall risk precautions in place, Bed alarm in place, Call light within reach, Gait belt, Left in bed AM-PAC Score AM-PAC Inpatient Mobility Raw Score : 18 (04/25/211340) AM-PAC Inpatient T-Scale Score : 43.63 (04/25/211340) Mobility Inpatient CMS 0-100% Score: 46.58 (04/25/211340) Mobility Inpatient CMS G-Code Modifier : CK (04/25/211340) Goals Short term goals Time Frame for Short term goals: 2 wks Short term goal 1: Bed mobility independent Short term goal 2: Transfers independent Short term goal 3: Ambulate 50 ft LRD supervision Short term goal 4: Complete 5 stairs supervision Patient Goals Patient goals : To go home Therapy Time Individual Concurrent Group Co-treatment Time In 1249 Time Out 1304 Minutes 15 SPT wore mask, eyewear, gown and gloves during pt interaction. BINA Christine * Juliano Gonzalez MD - 04/25/2021 8:39 AM EST Hospitalist Progress Note 04/25/2021 8:39 AM Subjective: Admit Date: 04/21/2021 PCP: Leonardo Lyles APRN - [facility] Interval History: No overnight issues. ADULT DIET; Regular ADULT ORAL NUTRITION SUPPLEMENT; Dinner; Standard High Calorie/High Protein Oral Supplement No intake/output data recorded. Patient Vitals for the past 96 hrs (Last 3 readings): Weight 04/24/21 0600 107 lb (48.5 kg) 04/23/21 0445 107 lb 1.6 oz (48.6 kg) 04/22/21 0614 105 lb 9.6 oz (47.9 kg) Medications: sodium chloride sodium chloride 75 mL/hr at 04/24/211957 sodium chloride flush 3 mL IntraVENous Q8H sodium chloride flush 5-40 mL IntraVENous 2 times per day enoxaparin 40 mg SubCUTAneous Daily levothyroxine 88 mcg Oral Daily pantoprazole 40 mg Oral QAM AC sertraline 50 mg Oral Daily Vitamin D 1,000 Units Oral Daily No results for input(s): WBC, HGB, PLT in the last 72 hours. Recent Labs 04/23/21 0016 04/24/21 0237 NA -- 138 K 3.4* 3.6 CL -- 112* CO2 -- 20* BUN -- 4* CREATININE -- 0.61 GLUCOSE -- 98 No results for input(s): AST, ALT, ALB, BILITOT, ALKPHOS in the last 72 hours. No results found for: TRIG, HDL, LDLCALC, CHOL No results found for: PHART, PO2ART, QXC3EVH No results for input(s): INR in the last 72 hours. No results for input(s): CKTOTAL, CKMB, TROPONINI in the last 72 hours. No results for input(s): DDIMER in the last 72 hours. No components found for: HGBA1C Lab Results Component Value Date TSH 12.423 04/21/2021 Urine Culture: Results for orders placed or performed during the hospital encounter of 04/21/21 Culture, Urine Specimen: Urine urine Result Value Ref Range Urine Culture, Routine Escherichia coli (A) Urine Culture, Routine >100,000 CFU/ml Susceptibility Escherichia coli - BACTERIAL SUSCEPTIBILITY PANEL BY FARRAH ampicillin <=2 Sensitive ug/mL ceFAZolin <=4 Sensitive ug/mL cefTRIAXone <=1 Sensitive ug/mL cefepime <=1 Sensitive ug/mL aztreonam <=1 Sensitive ug/mL amoxicillin-clavulanate <=2 Sensitive ug/mL ampicillin-sulbactam <=2 Sensitive ug/mL piperacillin-tazobactam <=4 Sensitive ug/mL meropenem <=0.25 Sensitive ug/mL ciprofloxacin <=0.25 Sensitive ug/mL trimethoprim-sulfamethoxazole <=20 Sensitive ug/mL nitrofurantoin <=16 Sensitive ug/mL gentamicin <=1 Sensitive ug/mL amikacin <=2 Sensitive ug/mL Objective: Vitals: BP 121/62 Pulse 68 Temp 97.6 F (36.4 C) (Temporal) Resp 18 Ht 5' 1 (1.549 m) Wt 107 lb (48.5 kg) SpO2 97% BMI 20.22 kg/m Pulse Ox: SpO2 Av % Min: 97 % Max: 97 % Supplemental O2: General appearance: alert and cooperative with exam Lungs: clear to auscultation bilaterally Heart: regular rate and rhythm, S1, S2 normal, no murmur, click, rub or gallop Abdomen: soft, non-tender; bowel sounds normal; no masses, no organomegaly Extremities: extremities normal, atraumatic, no cyanosis or edema Neurologic: No obvious focal neurologic deficits. Assessment Active Problems: Diarrhea Resolved Problems: * No resolved hospital problems. * #diarrhea 2/2 astrovirus infection - IVF, supportive care, contact precautions - immodium prn #hypokalemia: replace and recheck #hypothyroidism - resume synthroid DVT PPx: lovenox Dispo: home pending clinical improvement Plan: 04/25: Diarrhea slowing down. Rectal tube removed. Cont gentle iV hydration. Encourage PO intake. Cont supportive management. Replace lytes as needed increase activity as tolerated, PT/OT Juliano Gonzalez MD, MD [facility] Hospitalist * Griffin Cottrell MD - 04/24/2021 4:04 PM EST Images from the original note were not included. Hospitalist Progress Note 04/24/2021 4:04 PM Subjective: Admit Date: 04/21/2021 PCP: Leonardo Lyles, [employer] Interval History: continues to have nausea and frequent BMs. Nausea persists. No overnight issues. ADULT DIET; Regular ADULT ORAL NUTRITION SUPPLEMENT; Dinner; Standard High Calorie/High Protein Oral Supplement Patient Vitals for the past 96 hrs (Last 3 readings): Weight 04/24/21 0600 107 lb (48.5 kg) 04/23/21 0445 107 lb 1.6 oz (48.6 kg) 04/22/21 0614 105 lb 9.6 oz (47.9 kg) Medications: sodium chloride sodium chloride 75 mL/hr at 04/22/21 1036 sodium chloride flush 3 mL IntraVENous Q8H sodium chloride flush 5-40 mL IntraVENous 2 times per day enoxaparin 40 mg SubCUTAneous Daily levothyroxine 88 mcg Oral Daily pantoprazole 40 mg Oral QAM AC sertraline 50 mg Oral Daily Vitamin D 1,000 Units Oral Daily Recent Labs 04/22/21 030 WBC 8.3 HGB 12.5 PLT 167 Recent Labs 04/22/21 0303 04/23/21 0016 04/24/21 0237 NA 139 -- 138 K 3.1* 3.4* 3.6 CL 112* -- 112* CO2 16* -- 20* BUN 11 -- 4* CREATININE 0.73 -- 0.61 GLUCOSE 77 -- 98 Recent Labs 04/22/21302 AST 24 ALT 11 BILITOT 0.5 ALKPHOS 66 No results found for: TRIG, HDL, LDLCALC, CHOL No results for input(s): INR in the last 72 hours. No results for input(s): CKTOTAL, CKMB, TROPONINI in the last 72 hours. Objective: Vitals: BP (!) 117/58 Pulse 59 Temp 98.4 F (36.9 C) (Temporal) Resp 16 Ht 5' 1 (1.549 m) Wt 107 lb (48.5 kg) SpO2 98% BMI 20.22 kg/m Pulse Ox: SpO2 Av.5 % Min: 97 % Max: 98 % Supplemental O2: PHYSICAL EXAM: GENERAL: Patient is a well-developed, well-nourished female in no acute distress, alert and oriented x3, appropriate and pleasant conversation. HEAD: Normocephalic, atraumatic. EYES: Pupils equal, round and reactive to light and accommodation, extraocular movements intact. ENT: Moist mucous membranes. No erythema is noted. NECK: Supple. No masses. No lymphadenopathy. CARDIOVASCULAR: Regular rate and rhythm, s1,2 no murmur PULMONARY: Lungs are clear to auscultation bilaterally. ABDOMEN: Soft, nontender, nondistended. Positive bowel sounds. MUSCULOSKELETAL: Strength 5/5 bilaterally in all extremities. Pulses 2+ NEUROLOGIC: Cranial nerves II through XII grossly intact. No focal deficits are noted. DATA: CBC: Recent Labs 04/22/21302 WBC 8.3 RBC 4.40 HGB 12.5 HCT 38.5 MCV 87.5 RDW 14.3 PLT 167 BMP: Recent Labs 04/22/21 0303 04/23/21 0016 04/24/21 0237 NA 139 -- 138 K 3.1* 3.4* 3.6 CL 112* -- 112* CO2 16* -- 20* BUN 11 -- 4* CREATININE 0.73 -- 0.61 GLUCOSE 77 -- 98 CALCIUM 8.4 -- 8.1* ANIONGAP 11 -- 6 LIVER PROFILE: Recent Labs 04/22/21 0303 AST 24 ALT 11 BILITOT 0.5 ALKPHOS 66 LABALBU 4.0 PROT 6.5 PT/INR: No results for input(s): PROTIME, INR in the last 72 hours. CARDIAC ENZYMES: No results for input(s): TROPONINI in the last 72 hours. Procalcitonin: Lab Results Component Value Date PROCAL <0.10 08/05/2018 Urine Culture: Results for orders placed or performed during the hospital encounter of 04/21/21 Culture, Urine Specimen: Urine urine Result Value Ref Range Urine Culture, Routine Escherichia coli (A) Urine Culture, Routine >100,000 CFU/ml Susceptibility Escherichia coli - BACTERIAL SUSCEPTIBILITY PANEL BY FARRAH ampicillin <=2 Sensitive ug/mL ceFAZolin <=4 Sensitive ug/mL cefTRIAXone <=1 Sensitive ug/mL cefepime <=1 Sensitive ug/mL aztreonam <=1 Sensitive ug/mL amoxicillin-clavulanate <=2 Sensitive ug/mL ampicillin-sulbactam <=2 Sensitive ug/mL piperacillin-tazobactam <=4 Sensitive ug/mL meropenem <=0.25 Sensitive ug/mL ciprofloxacin <=0.25 Sensitive ug/mL trimethoprim-sulfamethoxazole <=20 Sensitive ug/mL nitrofurantoin <=16 Sensitive ug/mL gentamicin <=1 Sensitive ug/mL amikacin <=2 Sensitive ug/mL I reviewed: [x] laboratory results [x] radiographic results At the time of today's encounter. Pt was advised of the results. Assessment Active Problems: Diarrhea Resolved Problems: * No resolved hospital problems. * #diarrhea 2/2 astrovirus infection - IVF, supportive care, contact precautions - immodium prn #hypokalemia: replace and recheck #hypothyroidism - resume synthroid DVT PPx: lovenox Dispo: home pending clinical improvement See orders, continue POC Advance Directive: DNR-CCA PPE was worn for the duration of the encounter including but not limited to a N95. Griffin Cottrell MD, [facility] * Griffin Cottrell MD - 04/23/2021 9:21 AM EST Images from the original note were not included. Hospitalist Progress Note 04/23/2021 9:21 AM Subjective: Admit Date: 04/21/2021 PCP: Leonardo Lyles, [employer] Interval History: continues to have nausea and frequent BMs. Had episode of emesis last night, contsupportive care, replace K. No overnight issues. ADULT DIET; Regular ADULT ORAL NUTRITION SUPPLEMENT; Dinner; Standard High Calorie/High Protein Oral Supplement Date 04/23/21 0000 - 04/23/21 2359 Shift 0069-1602 [id number] 7854-1616 24 Hour Total INTAKE Shift Total(mL/kg) OUTPUT Stool(mL/kg) 600(12.4) 600(12.4) Shift Total(mL/kg) 600(12.4) 600(12.4) Weight (kg) 48.6 48.6 48.6 48.6 Patient Vitals for the past 96 hrs (Last 3 readings): Weight 04/23/21 0445 107 lb 1.6 oz (48.6 kg) 04/22/21 0614 105 lb 9.6 oz (47.9 kg) 04/21/21 0149 110 lb (49.9 kg) Medications: sodium chloride sodium chloride 75 mL/hr at 04/22/21 1036 potassium chloride 40 mEq Oral BID sodium chloride flush 3 mL IntraVENous Q8H sodium chloride flush 5-40 mL IntraVENous 2 times per day enoxaparin 40 mg SubCUTAneous Daily levothyroxine 88 mcg Oral Daily pantoprazole 40 mg Oral QAM AC sertraline 50 mg Oral Daily Vitamin D 1,000 Units Oral Daily Recent Labs 04/21/21 0248 04/22/21 0303 WBC 7.3 8.3 HGB 13.0 12.5 PLT 165 167 Recent Labs 04/21/2124704/22/213 04/23/21 0016 NA 139 139 -- K 3.7 3.1* 3.4* CL 106 112* -- CO2 22 16* -- BUN 18 11 -- CREATININE 0.82 0.73 -- GLUCOSE 109* 77 -- Recent Labs 04/22/21302 AST 24 ALT 11 BILITOT 0.5 ALKPHOS 66 No results found for: TRIG, HDL, LDLCALC, CHOL No results for input(s): INR in the last 72 hours. Recent Labs 04/21/21247 TROPONINI <0.012 Objective: Vitals: BP (!) 120/59 Pulse 65 Temp 98.4 F (36.9 C) (Temporal) Resp 17 Ht 5' 1 (1.549 m) Wt 107 lb 1.6 oz (48.6 kg) SpO2 97% BMI 20.24 kg/m Pulse Ox: SpO2 Av.5 % Min: 94 % Max: 97 % Supplemental O2: PHYSICAL EXAM: GENERAL: Patient is a well-developed, well-nourished female in no acute distress, alert and oriented x3, appropriate and pleasant conversation. HEAD: Normocephalic, atraumatic. EYES: Pupils equal, round and reactive to light and accommodation, extraocular movements intact. ENT: Moist mucous membranes. No erythema is noted. NECK: Supple. No masses. No lymphadenopathy. CARDIOVASCULAR: Regular rate and rhythm, s1,2 no murmur PULMONARY: Lungs are clear to auscultation bilaterally. ABDOMEN: Soft, nontender, nondistended. Positive bowel sounds. MUSCULOSKELETAL: Strength 5/5 bilaterally in all extremities. Pulses 2+ NEUROLOGIC: Cranial nerves II through XII grossly intact. No focal deficits are noted. DATA: CBC: Recent Labs 04/21/2124704/22/21302 WBC 7.3 8.3 RBC 4.53 4.40 HGB 13.0 12.5 HCT 39.2 38.5 MCV 86.5 87.5 RDW 14.3 14.3 PLT 165 167 BMP: Recent Labs 04/21/2124704/22/2130204/23/21 0016 NA 139 139 -- K 3.7 3.1* 3.4* CL 106 112* -- CO2 22 16* -- BUN 18 11 -- CREATININE 0.82 0.73 -- GLUCOSE 109* 77 -- CALCIUM 8.9 8.4 -- ANIONGAP 11 11 -- LIVER PROFILE: Recent Labs 04/22/21 0303 AST 24 ALT 11 BILITOT 0.5 ALKPHOS 66 LABALBU 4.0 PROT 6.5 PT/INR: No results for input(s): PROTIME, INR in the last 72 hours. CARDIAC ENZYMES: Recent Labs 04/21/21 0248 TROPONINI <0.012 Procalcitonin: Lab Results Component Value Date PROCAL <0.10 08/05/2018 Urine Culture: Results for orders placed or performed during the hospital encounter of 04/21/21 Culture, Urine Specimen: Urine urine Result Value Ref Range Urine Culture, Routine Escherichia coli (A) Urine Culture, Routine >100,000 CFU/ml I reviewed: [x] laboratory results [x] radiographic results At the time of today's encounter. Pt was advised of the results. Assessment Active Problems: Diarrhea Resolved Problems: * No resolved hospital problems. 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 Griffin Cottrell MD, [facility] Hospitalist * Rosi oBx MS, RD, LD - 04/22/2021 3:38 PM EST Comprehensive Nutrition Assessment Type and Reason for Visit: Initial, Positive Nutrition Screen Nutrition Recommendations/Plan: 1. Continue current diet. 2. Per MNT protocol, initiate ONS Ensure Plus once daily to provide 350 kcals and 13g protein. 3. Please document % meal intakes under I/O flowsheet. 4. Monitor nutrition status, intakes, wt trends, labs, and fluid balance. RD will continue to follow. Nutrition Assessment: Pt admitted w/ diarrhea; GI panel +astrovirus. CT A/P w/ no acute findings. Pt care at time of RD assessment, no answer w/ attempt to call into room. Malnutrition Assessment: Malnutrition Status: Insufficient data Context: Acute Illness Estimated Daily Nutrient Needs: Energy (kcal): 6367-9208; Weight Used for Energy Requirements: Current Protein (g): 48-58; Weight Used for Protein Requirements: Current Fluid (ml/day): per MD; Method Used for Fluid Requirements: 1 ml/kcal Nutrition Related Findings: +BS, diarrhea. No edema. Wing 18. Wounds: None Current Nutrition Therapies: ADULT DIET; Regular Anthropometric Measures: Height: 5' 1 (154.9 cm) Current Body Weight: 105 lb (47.6 kg) (04/22) Usual Body Weight: 112 lb (50.8 kg) (per [facility] 08/19) [place] Body Weight: 105 lbs; % [place] Body Weight 100 % BMI: 19.8 Adjusted Body Weight: ; No Adjustment BMI Categories: Underweight (BMI less than 22) age over 65 Nutrition Diagnosis: Predicted inadequate energy intake related to altered GI function as evidenced by diarrhea Nutrition Interventions: Food and/or Nutrient Delivery: Continue Current Diet, Start Oral Nutrition Supplement Nutrition Education/Counseling: No recommendation at this time Coordination of Nutrition Care: Continue to monitor while inpatient Goals: pt to consume >50% of meals and ONS Nutrition Monitoring and Evaluation: Behavioral-Environmental Outcomes: None Identified Food/Nutrient Intake Outcomes: Diet Advancement/Tolerance, Food and Nutrient Intake, Supplement Intake Physical Signs/Symptoms Outcomes: Biochemical Data, GI Status, Diarrhea, Fluid Status or Edema, Nutrition Focused Physical Findings, Skin, Weight Discharge Planning: Too soon to determine Contact: [id number] * Griffin Cottrell MD - 04/22/2021 10:52 AM EST Images from the original note were not included. Hospitalist Progress Note 04/22/2021 10:52 AM Subjective: Admit Date: 04/21/2021 PCP: Leonardo Lyles, [employer] Interval History: continues to have nausea and frequent BMs. Discussed results of stool studies, cont supportive care, replace K. No overnight issues. ADULT DIET; Regular Date 04/22/21 0000 - 04/22/21 2359 Shift [id number] 5739-3200 2318-5640 24 Hour Total INTAKE Shift Total(mL/kg) OUTPUT Stool(mL/kg) 750(15.7) 750(15.7) Shift Total(mL/kg) 750(15.7) 750(15.7) Weight (kg) 47.9 47.9 47.9 47.9 Patient Vitals for the past 96 hrs (Last 3 readings): Weight 04/22/21 0614 105 lb 9.6 oz (47.9 kg) 04/21/21 0149 110 lb (49.9 kg) Medications: sodium chloride sodium chloride 75 mL/hr at 04/22/21 1036 sodium chloride flush 3 mL IntraVENous Q8H sodium chloride flush 5-40 mL IntraVENous 2 times per day enoxaparin 40 mg SubCUTAneous Daily HYDROcodone-acetaminophen 1 tablet Oral BID levothyroxine 88 mcg Oral Daily pantoprazole 40 mg Oral QAM AC sertraline 50 mg Oral Daily Vitamin D 1,000 Units Oral Daily Recent Labs 04/21/21 0248 04/22/21 0303 WBC 7.3 8.3 HGB 13.0 12.5 PLT 165 167 Recent Labs 04/21/218 04/22/21 0303 NA 139 139 K 3.7 3.1* CL 106 112* CO2 22 16* BUN 18 11 CREATININE 0.82 0.73 GLUCOSE 109* 77 Recent Labs 04/22/21 0303 AST 24 ALT 11 BILITOT 0.5 ALKPHOS 66 No results found for: TRIG, HDL, LDLCALC, CHOL No results for input(s): INR in the last 72 hours. Recent Labs 04/21/21247 TROPONINI <0.012 Objective: Vitals: BP 122/60 Pulse 64 Temp 97.5 F (36.4 C) (Temporal) Resp 14 Ht 5' 1 (1.549 m) Wt 105 lb 9.6 oz (47.9 kg) SpO2 95% BMI 19.95 kg/m Pulse Ox: SpO2 Av % Min: 92 % Max: 97 % Supplemental O2: PHYSICAL EXAM: GENERAL: Patient is a well-developed, well-nourished female in no acute distress, alert and oriented x3, appropriate and pleasant conversation. HEAD: Normocephalic, atraumatic. EYES: Pupils equal, round and reactive to light and accommodation, extraocular movements intact. ENT: Moist mucous membranes. No erythema is noted. NECK: Supple. No masses. No lymphadenopathy. CARDIOVASCULAR: Regular rate and rhythm, s1,2 no murmur PULMONARY: Lungs are clear to auscultation bilaterally. ABDOMEN: Soft, nontender, nondistended. Positive bowel sounds. MUSCULOSKELETAL: Strength 5/5 bilaterally in all extremities. Pulses 2+ NEUROLOGIC: Cranial nerves II through XII grossly intact. No focal deficits are noted. DATA: CBC: Recent Labs 04/21/218 04/22/21302 WBC 7.3 8.3 RBC 4.53 4.40 HGB 13.0 12.5 HCT 39.2 38.5 MCV 86.5 87.5 RDW 14.3 14.3 PLT 165 167 BMP: Recent Labs 04/21/2124704/22/21302 NA 139 139 K 3.7 3.1* CL 106 112* CO2 22 16* BUN 18 11 CREATININE 0.82 0.73 GLUCOSE 109* 77 CALCIUM 8.9 8.4 ANIONGAP 11 11 LIVER PROFILE: Recent Labs 04/22/21302 AST 24 ALT 11 BILITOT 0.5 ALKPHOS 66 LABALBU 4.0 PROT 6.5 PT/INR: No results for input(s): PROTIME, INR in the last 72 hours. CARDIAC ENZYMES: Recent Labs 04/21/21247 TROPONINI <0.012 Procalcitonin: Lab Results Component Value Date PROCAL <0.10 08/05/2018 Urine Culture: Results for orders placed or performed during the hospital encounter of 04/21/21 Culture, Urine Specimen: Urine urine Result Value Ref Range Urine Culture, Routine Gram-negative bacillus (A) Urine Culture, Routine >100,000 CFU/ml I reviewed: [x] laboratory results [x] radiographic results At the time of today's encounter. Pt was advised of the results. Assessment Active Problems: Diarrhea Resolved Problems: * No resolved hospital problems. 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 Griffin Cottrell MD, [facility] Hospitalist documented [facility] encounter[facility] Work Phone: [phone] History of Past illness Narrative* Problem Noted Date Resolved Date Frequency of urination 01/25/2016 9 Fecal incontinence 01/25/2016 06/24/2018 MVP (mitral valve prolapse) 09/10/20150 12/2018 Urinary frequency 09/10/2015 06/24/2018 Overview: with incontinence, s/p Interstim 1-16 documented as of this encounter (statuses as of 10/07/2021) [place] [id number] History of Past illness Narrative* Problem Noted Date Resolved Date Frequency of urination 01/25/2016 9 Fecal incontinence 01/25/2016 06/24/2018 MVP (mitral valve prolapse) 09/10/20150 12/2018 Urinary frequency 09/10/2015 06/24/2018 Overview: with incontinence, s/p Interstim 1-16 documented as of this encounter (statuses as of 10/08/2021) [facility]-16-2016 History of Past illness Narrative* Problem Noted Date Resolved Date Frequency of urination 01/25/2016 9 Fecal incontinence 01/25/2016 06/24/2018 MVP (mitral valve prolapse) 09/10/20150 12/2018 Urinary frequency 09/10/2015 06/24/2018 Overview: with incontinence, s/p Interstim 1-16 documented as of this encounter (statuses as of 10/10/2021) [place] [id number] History of Past illness Narrative* Problem Noted Date Resolved Date Frequency of urination 01/25/2016 9 Fecal incontinence 01/25/2016 06/24/2018 MVP (mitral valve prolapse) 09/10/20150 12/2018 Urinary frequency 09/10/2015 06/24/2018 Overview: with incontinence, s/p Interstim 1-16 documented as of this encounter (statuses as of 11/16/2021) [facility]08-16-2016 History of Past illness Narrative* Problem Noted Date Resolved Date Frequency of urination 01/25/2016 9 Fecal incontinence 01/25/2016 06/24/2018 MVP (mitral valve prolapse) 09/10/20150 12/2018 Urinary frequency 09/10/2015 06/24/2018 Overview: with incontinence, s/p Interstim 1-16 documented as of this encounter (statuses as of 11/22/2021) [facility]08-16-2016 History of Past illness Narrative* Problem Noted Date Resolved Date Frequency of urination 01/25/2016 9 Fecal incontinence 01/25/2016 06/24/2018 MVP (mitral valve prolapse) 09/10/201512/2018 Urinary frequency 09/10/2015 06/24/2018 Overview: with incontinence, s/p Interstim 1-16 documented as of this encounter (statuses as of 11/24/2021) [facility]16-2016 History of Past illness Narrative* Problem Noted Date Resolved Date Frequency of urination 01/25/2016 9 Fecal incontinence 01/25/2016 06/24/2018 MVP (mitral valve prolapse) 09/10/201512/2018 Urinary frequency 09/10/2015 06/24/2018 Overview: with incontinence, s/p Interstim 1-16 documented as of this encounter (statuses as of 12/29/2021) [facility]16[facility]2016 History of Past illness Narrative* Problem Noted Date Resolved Date Frequency of urination 01/25/2016 9 Fecal incontinence 01/25/2016 06/24/2018 MVP (mitral valve prolapse) 09/10/20150 12/2018 Urinary frequency 09/10/2015 06/24/2018 Overview: with incontinence, s/p Interstim 1-16 documented as of this encounter (statuses as of 04/07/2022) [address]16-2016 History of Past illness Narrative* Problem Noted Date Resolved Date Frequency of urination 01/25/2016 9 Fecal incontinence 01/25/2016 06/24/2018 MVP (mitral valve prolapse) 09/10/20150 12/2018 Urinary frequency 09/10/2015 06/24/2018 Overview: with incontinence, s/p Interstim 1-16 documented as of this encounter (statuses as of 04/27/2022) [facility]16[facility]2016 History of Past illness Narrative* Problem Noted Date Resolved Date Frequency of urination 01/25/2016 9 Fecal incontinence 01/25/2016 06/24/2018 MVP (mitral valve prolapse) 09/10/20150 12/2018 Urinary frequency 09/10/2015 06/24/2018 Overview: with incontinence, s/p Interstim 1-16 documented as of this encounter (statuses as of 05/10/2022) [facility]16[facility]2016 History of Past illness Narrative* Problem Noted Date Resolved Date Frequency of urination 01/25/2016 9 Fecal incontinence 01/25/2016 06/24/2018 MVP (mitral valve prolapse) 09/10/20150 12/2018 Urinary frequency 09/10/2015 06/24/2018 Overview: with incontinence, s/p Interstim 1-16 documented as of this encounter (statuses as of 05/10/2022) [facility]16[facility]2016 History of Past illness Narrative* Problem Noted Date Resolved Date Frequency of urination 01/25/2016 9 Fecal incontinence 01/25/2016 06/24/2018 MVP (mitral valve prolapse) 09/10/2015 020 12/2018 Urinary frequency 09/10/2015 06/24/2018 Overview: with incontinence, s/p Interstim 1-16 documented as of this encounter (statuses as of 05/25/2022) [facility]16[facility]2016 History of Past illness Narrative* Problem Noted Date Resolved Date Frequency of urination 01/25/2016 9 Fecal incontinence 01/25/2016 06/24/2018 MVP (mitral valve prolapse) 09/10/20150 12/2018 Urinary frequency 09/10/2015 06/24/2018 Overview: with incontinence, s/p Interstim 1-16 documented as of this encounter (statuses as of 05/25/2022) [facility]16[facility]2016 History of Past illness Narrative* Problem Noted Date Resolved Date Frequency of urination 01/25/2016 9 Fecal incontinence 01/25/2016 06/24/2018 MVP (mitral valve prolapse) 09/10/20150 12/2018 Urinary frequency 09/10/2015 06/24/2018 Overview: with incontinence, s/p Interstim 1-16 documented as of this encounter (statuses as of 05/26/2022) [facility]16[facility]2016 History of Past illness Narrative* Problem Noted Date Resolved Date Frequency of urination 01/25/2016 9 Fecal incontinence 01/25/2016 06/24/2018 MVP (mitral valve prolapse) 09/10/20150 12/2018 Urinary frequency 09/10/2015 06/24/2018 Overview: with incontinence, s/p Interstim 1-16 documented as of this encounter (statuses as of 05/26/2022) [facility]16[facility]2016 History of Past illness Narrative* Problem Noted Date Resolved Date Frequency of urination 01/25/2016 9 Fecal incontinence 01/25/2016 06/24/2018 MVP (mitral valve prolapse) 09/10/20150 12/2018 Urinary frequency 09/10/2015 06/24/2018 Overview: with incontinence, s/p Interstim 1-16 documented as of this encounter (statuses as of 05/31/2022) [facility]16[facility]2016 History of Past illness Narrative* Problem Noted Date Resolved Date Frequency of urination 01/25/2016 9 Fecal incontinence 01/25/2016 06/24/2018 MVP (mitral valve prolapse) 09/10/20150 12/2018 Urinary frequency 09/10/2015 06/24/2018 Overview: with incontinence, s/p Interstim 1-16 documented as of this encounter (statuses as of 06/04/2022) [address]16-2016 History of Past illness Narrative* Problem Noted Date Resolved Date Frequency of urination 01/25/2016 9 Fecal incontinence 01/25/2016 06/24/2018 MVP (mitral valve prolapse) 09/10/20150 12/2018 Urinary frequency 09/10/2015 06/24/2018 Overview: with incontinence, s/p Interstim 1-16 documented as of this encounter (statuses as of 06/04/2022) [address]16-2016 History of Past illness Narrative* Problem Noted Date Resolved Date Frequency of urination 01/25/2016 9 Fecal incontinence 01/25/2016 06/24/2018 MVP (mitral valve prolapse) 09/10/20150 12/2018 Urinary frequency 09/10/2015 06/24/2018 Overview: with incontinence, s/p Interstim 1-16 documented as of this encounter (statuses as of 06/13/2022) [facility]16[facility]2016 History of Past illness Narrative* Problem Noted Date Resolved Date Frequency of urination 01/25/2016 9 Fecal incontinence 01/25/2016 06/24/2018 MVP (mitral valve prolapse) 09/10/20150 12/2018 Urinary frequency 09/10/2015 06/24/2018 Overview: with incontinence, s/p Interstim 1-16 documented as of this encounter (statuses as of 06/13/2022) [address]16-2016 History of Past illness Narrative* Problem Noted Date Resolved Date Frequency of urination 01/25/2016 9 Fecal incontinence 01/25/2016 06/24/2018 MVP (mitral valve prolapse) 09/10/20150 12/2018 Urinary frequency 09/10/2015 06/24/2018 Overview: with incontinence, s/p Interstim 1-16 documented as of this encounter (statuses as of 06/15/2022) [facility]16[facility]2016 History of Past illness Narrative* Problem Noted Date Resolved Date Frequency of urination 01/25/2016 9 Fecal incontinence 01/25/2016 06/24/2018 MVP (mitral valve prolapse) 09/10/2015 020 12/2018 Urinary frequency 09/10/2015 06/24/2018 Overview: with incontinence, s/p Interstim 1-16 documented as of this encounter (statuses as of 06/20/2022) [address]16-2016 History of Past illness Narrative* Problem Noted Date Resolved Date Frequency of urination 01/25/2016 9 Fecal incontinence 01/25/2016 06/24/2018 MVP (mitral valve prolapse) 09/10/20150 12/2018 Urinary frequency 09/10/2015 06/24/2018 Overview: with incontinence, s/p Interstim 1-16 documented as of this encounter (statuses as of 06/21/2022) [address]16-2016 History of Past illness Narrative* Problem Noted Date Resolved Date Frequency of urination 01/25/2016 9 Fecal incontinence 01/25/2016 06/24/2018 MVP (mitral valve prolapse) 09/10/201512/2018 Urinary frequency 09/10/2015 06/24/2018 Overview: with incontinence, s/p Interstim 1-16 documented as of this encounter (statuses as of 06/28/2022) [facility]16[facility]2016 History of Past illness Narrative* Problem Noted Date Resolved Date Frequency of urination 01/25/2016 9 Fecal incontinence 01/25/2016 06/24/2018 MVP (mitral valve prolapse) 09/10/20150 12/2018 Urinary frequency 09/10/2015 06/24/2018 Overview: with incontinence, s/p Interstim 1-16 documented as of this encounter (statuses as of 07/05/2022) [address]16-2016 History of Past illness Narrative* Problem Noted Date Resolved Date Frequency of urination 01/25/2016 9 Fecal incontinence 01/25/2016 06/24/2018 MVP (mitral valve prolapse) 09/10/20150 12/2018 Urinary frequency 09/10/2015 06/24/2018 Overview: with incontinence, s/p Interstim 1-16 documented as of this encounter (statuses as of 07/14/2022) [facility]16-2016 History of Past illness Narrative* Problem Noted Date Resolved Date Frequency of urination 01/25/2016 9 Fecal incontinence 01/25/2016 06/24/2018 MVP (mitral valve prolapse) 09/10/20150 12/2018 Urinary frequency 09/10/2015 06/24/2018 Overview: with incontinence, s/p Interstim 1-16 documented as of this encounter (statuses as of 07/17/2022) [facility]08[facility]16-2016 History of Past illness Narrative* Problem Noted Date Resolved Date Frequency of urination 01/25/2016 9 Fecal incontinence 01/25/2016 06/24/2018 MVP (mitral valve prolapse) 09/10/20150 12/2018 Urinary frequency 09/10/2015 06/24/2018 Overview: with incontinence, s/p Interstim 1-16 documented as of this encounter (statuses as of 07/18/2022) [facility]08[facility]16-2016 History of Past illness Narrative* Problem Noted Date Resolved Date Frequency of urination 01/25/2016 9 Fecal incontinence 01/25/2016 06/24/2018 MVP (mitral valve prolapse) 09/10/20150 12/2018 Urinary frequency 09/10/2015 06/24/2018 Overview: with incontinence, s/p Interstim 1-16 documented as of this encounter (statuses as of 07/25/2022) [facility]16[facility]2016 History of Past illness Narrative* Problem Noted Date Resolved Date Frequency of urination 01/25/2016 9 Fecal incontinence 01/25/2016 06/24/2018 MVP (mitral valve prolapse) 09/10/2015 020 12/2018 Urinary frequency 09/10/2015 06/24/2018 Overview: with incontinence, s/p Interstim 1-16 documented as of this encounter (statuses as of 08/07/2022) [facility]08[facility]16-2016 History of Past illness Narrative* Problem Noted Date Resolved Date Frequency of urination 01/25/2016 9 Fecal incontinence 01/25/2016 06/24/2018 MVP (mitral valve prolapse) 09/10/2015 020 12/2018 Urinary frequency 09/10/2015 06/24/2018 Overview: with incontinence, s/p Interstim 1-16 documented as of this encounter (statuses as of 08/11/2022) [facility]08[facility]16-2016 History of Past illness Narrative* Problem Noted Date Resolved Date Frequency of urination 01/25/2016 9 Fecal incontinence 01/25/2016 06/24/2018 MVP (mitral valve prolapse) 09/10/20150 12/2018 Urinary frequency 09/10/2015 06/24/2018 Overview: with incontinence, s/p Interstim 1-16 documented as of this encounter (statuses as of 08/15/2022) [facility]08[facility]16-2016 History of Past illness Narrative* Problem Noted Date Resolved Date Frequency of urination 01/25/2016 9 Fecal incontinence 01/25/2016 06/24/2018 MVP (mitral valve prolapse) 09/10/20150 12/2018 Urinary frequency 09/10/2015 06/24/2018 Overview: with incontinence, s/p Interstim 1-16 documented as of this encounter (statuses as of 08/15/2022) [facility]16[facility]2016 History of Past illness Narrative* Problem Noted Date Resolved Date Frequency of urination 01/25/2016 9 Fecal incontinence 01/25/2016 06/24/2018 MVP (mitral valve prolapse) 09/10/20150 12/2018 Urinary frequency 09/10/2015 06/24/2018 Overview: with incontinence, s/p Interstim 1-16 documented as of this encounter (statuses as of 08/16/2022) [facility]16[facility]2016 History of Past illness Narrative* Problem Noted Date Resolved Date Frequency of urination 01/25/2016 9 Fecal incontinence 01/25/2016 06/24/2018 MVP (mitral valve prolapse) 09/10/2015 020 12/2018 Urinary frequency 09/10/2015 06/24/2018 Overview: with incontinence, s/p Interstim 1-16 documented as of this encounter (statuses as of 09/13/2022) [facility]16[facility]2016 History of Past illness Narrative* Problem Noted Date Resolved Date Frequency of urination 01/25/2016 9 Fecal incontinence 01/25/2016 06/24/2018 MVP (mitral valve prolapse) 09/10/20150 12/2018 Urinary frequency 09/10/2015 06/24/2018 Overview: with incontinence, s/p Interstim 1-16 documented as of this encounter (statuses as of 11/14/2022) [facility]16[facility]2016 History of Past illness Narrative* Problem Noted Date Resolved Date Frequency of urination 01/25/2016 9 Fecal incontinence 01/25/2016 06/24/2018 MVP (mitral valve prolapse) 09/10/20150 12/2018 Urinary frequency 09/10/2015 06/24/2018 Overview: with incontinence, s/p Interstim 1-16 documented as of this encounter (statuses as of 11/14/2022) [facility]16[facility]2016 History of Past illness Narrative* Problem Noted Date Resolved Date Frequency of urination 01/25/2016 9 Fecal incontinence 01/25/2016 06/24/2018 MVP (mitral valve prolapse) 09/10/2015 02/0 12/2018 Urinary frequency 09/10/2015 06/24/2018 Overview: with incontinence, s/p Interstim 1-16 documented as of this encounter (statuses as of 11/24/2022) [address]16-2016 History of Past illness Narrative* Problem Noted Date Diagnosed Date Resolved Date Frequency of urination 01/25/201606/24 Fecal incontinence 01/25/2016 9 MVP (mitral valve prolapse) 09/10/2015 07/18/2018 Urinary frequency 09/10/2015 06/24/2018 Overview: with incontinence, s/p Interstim 1-16 documented as of this encounter (statuses as of 12/22/2022) [facility]2016 History of Past illness Narrative* Problem Noted Date Diagnosed Date Resolved Date Frequency of urination 01/25/201606/24 Fecal incontinence 01/25/2016 9 MVP (mitral valve prolapse) 09/10/2015 07/18/2018 Urinary frequency 09/10/2015 06/24/2018 Overview: with incontinence, s/p Interstim 1-16 documented as of this encounter (statuses as of 02/14/2023) [facility]2016 History of Past illness Narrative* Problem Noted Date Diagnosed Date Resolved Date Frequency of urination 01/25/201606/24 Fecal incontinence 01/25/2016 9 MVP (mitral valve prolapse) 09/10/2015 07/18/2018 Urinary frequency 09/10/2015 06/24/2018 Overview: with incontinence, s/p Interstim 1-16 documented as of this encounter (statuses as of 02/17/2023) [facility]2016 History of Past illness Narrative* Problem Noted Date Diagnosed Date Resolved Date Frequency of urination 01/25/201606/24 Fecal incontinence 01/25/2016 9 MVP (mitral valve prolapse) 09/10/2015 07/18/2018 Urinary frequency 09/10/2015 06/24/2018 Overview: with incontinence, s/p Interstim 1-16 documented as of this encounter (statuses as of 03/20/2023) [address]16-2016 History of Past illness Narrative* Problem Noted Date Diagnosed Date Resolved Date Frequency of urination 01/25/201606/24 Fecal incontinence 01/25/2016 9 MVP (mitral valve prolapse) 09/10/2015 07/18/2018 Urinary frequency 09/10/2015 06/24/2018 Overview: with incontinence, s/p Interstim 1-16 documented as of this encounter (statuses as of 04/18/2023) [address]16-2016 History of Past illness Narrative* Problem Noted Date Diagnosed Date Resolved Date Frequency of urination 01/25/201606/24 Fecal incontinence 01/25/2016 9 MVP (mitral valve prolapse) 09/10/2015 07/18/2018 Urinary frequency 09/10/2015 06/24/2018 Overview: with incontinence, s/p Interstim 1-16 documented as of this encounter (statuses as of 08/08/2023) [address]16-2016 History of Past illness Narrative* Problem Noted Date Diagnosed Date Resolved Date Frequency of urination 01/25/201606/24 Fecal incontinence 01/25/2016 9 MVP (mitral valve prolapse) 09/10/2015 07/18/2018 Urinary frequency 09/10/2015 06/24/2018 Overview: with incontinence, s/p Interstim 1-16 documented as of this encounter (statuses as of 08/09/2023) [address]16-2016 History of Past illness Narrative* Problem Noted Date Diagnosed Date Resolved Date Frequency of urination 01/25/201606/24 Fecal incontinence 01/25/2016 9 MVP (mitral valve prolapse) 09/10/2015 07/18/2018 Urinary frequency 09/10/2015 06/24/2018 Overview: with incontinence, s/p Interstim 1-16 documented as of this encounter (statuses as of 08/22/2023) [address]16-2016 History of Past illness Narrative* Problem Noted Date Diagnosed Date Resolved Date Frequency of urination 01/25/201606/24 Fecal incontinence 01/25/2016 9 MVP (mitral valve prolapse) 09/10/2015 07/18/2018 Urinary frequency 09/10/2015 06/24/2018 Overview: with incontinence, s/p Interstim 1-16 documented as of this encounter (statuses as of 08/29/2023) [facility] History of Past illness Narrative* Problem Noted Date Diagnosed Date Resolved Date Frequency of urination 01/25/201606/24 Fecal incontinence 01/25/2016 9 MVP (mitral valve prolapse) 09/10/2015 07/18/2018 Urinary frequency 09/10/2015 06/24/2018 Overview: with incontinence, s/p Interstim 1-16 documented as of this encounter (statuses as of 09/13/2023) [facility] History of Past illness Narrative* Problem Noted Date Diagnosed Date Resolved Date Frequency of urination 01/25/201606/24 Fecal incontinence 01/25/2016 9 MVP (mitral valve prolapse) 09/10/2015 07/18/2018 Urinary frequency 09/10/2015 06/24/2018 Overview: with incontinence, s/p Interstim 1-16 documented as of this encounter (statuses as of 09/13/2023) [facility] History of Past illness Narrative* Problem Noted Date Diagnosed Date Resolved Date Frequency of urination 01/25/201606/24 Fecal incontinence 01/25/2016 9 MVP (mitral valve prolapse) 09/10/2015 07/18/2018 Urinary frequency 09/10/2015 06/24/2018 Overview: with incontinence, s/p Interstim 1-16 documented as of this encounter (statuses as of 09/20/2023) [facility]16[facility] History of Past illness Narrative* Problem Noted Date Diagnosed Date Resolved Date Frequency of urination 01/25/201606/24 Fecal incontinence 01/25/2016 9 MVP (mitral valve prolapse) 09/10/2015 07/18/2018 Urinary frequency 09/10/2015 06/24/2018 Overview: with incontinence, s/p Interstim 1-16 documented as of this encounter (statuses as of 09/20/2023) [facility]16[facility]2016 History of Past illness Narrative* Problem Noted Date Diagnosed Date Resolved Date Frequency of urination 01/25/201606/24 Fecal incontinence 01/25/2016 9 MVP (mitral valve prolapse) 09/10/2015 07/18/2018 Urinary frequency 09/10/2015 06/24/2018 Overview: with incontinence, s/p Interstim 1-16 documented as of this encounter (statuses as of 09/26/2023) [facility] Dorian Ballard [facility] Note Date/Time November 30, 2024 1:20 pm [facility] Medical Records Department [address] [place] [address] Emergency Department Summary 11/30/24 MR#: [id number] Acct: [id number] Name: KATHRYN TAMEZ I Rep #:[id number] : 1940 84 From: Dorian Ballard MD PCP: OUT OF TOWN DOCTOR Status:REG ER Location: ED HPI History of Present Illness Chief Complaint: Back Detail of Chief Complaint: Atraumatic neck pain Informant: patient Onset/Context/Timing Onset: Days Context: Sudden Onset Timing: Continuous Quality: Sharp pain Location: Posterior neck Current Severity: Mild Maximum Severity: Severe Worsened by: Any type of movement Relieved by: Nothing Associated Symptoms Associated Symptoms: No radicular pain, no paresthesia, no weakness in her upperextremities Narrative Narrative: Patient is an 84-year-old woman. She presents from home by ambulance because ofsevere pain. Her daughter called the ambulance. She has taken [id number] and applied heat with no benefit. She denies direct or indirect trauma. She denies fall asleep on the sofa or chair. She denies radicular pain. She states she had some tingling in all her fingers yesterday. She did not have that before. She denies headache. She denies visual, ocular auditory symptoms. She denies cardiac or respiratory symptoms. She denies any new symptoms in her legs. She had fusion of the lumbar spine by Dr. El Jo at [facility]. She denies fever, chills night sweats. Denies weight gain or weight loss. She denies any recent dental procedures. Prior similar symptoms: No Recent Illness/Hospitalization: Yes PFSH PFSH Home Medications ?Medication ?Instructions ?Recorded ?Last Taken ?Type hydroxyzine HCl 10 mg tablet 10 mg PO QHS 11/30/24 Unk nown History sertraline 100 mg tablet 200 mg PO DAILY 11/30/24 Unk nown History sumatriptan succinate 50 mg tablet mg PO 11/30/24 Unkn own History Allergy/AdvReac Type Severity Reaction Status Date / Time No Known Allergies Allergy Verified 11/30/24 10:25 Social History (Updated 11/30/24 @ 10:[address] Dorian Ballard MD) household members: family Smoking Status: Never smoker ROS ROS ED Constitutional Constitutional ED: Denies chills, fever(s), subjective, sweats or weight loss Eyes Eyes: Denies blurry vision or change in vision ENT ENT ED: Denies ear pain, rhinorrhea or sore throat Cardiovascular Cardiovascular: Denies chest pain, palpitations or racing heartbeat Respiratory/Chest Respiratory/Chest: Denies cough, dyspnea or dyspnea on exertion Gastrointestinal Gastrointestinal: Denies abdominal pain, nausea or vomiting Genitourinary Genitourinary ED: Denies dysuria, hematuria or urinary frequency Musculoskeletal Musculoskeletal: Reports neck pain; Denies arthralgias, back pain or myalgias Integumentary Denies rash Neurologic Neurologic: Denies paresthesias or weakness Hematologic/Lymphatic Hematologic/Lymphatic: Reports systems reviewed and no addt'l complaints, exceptas documented EXAM Physical Exam Const Vital Signs: 11/30/24 10:24 11/30/24 13:18 Temperature 98 F 98.1 F Temperature Source Temporal Pulse Rate 84 70 Respiratory Rate 14 14 Blood Pressure 135/61 H 113/66 Blood Pressure Mean 85 81 Pulse Ox 94 93 Oxygen Delivery Method Room Air Positive well nourished and well developed Constitutional Narrative: Patient appears uncomfortable. She is a thin woman. General Appearance ED: well developed; Negative for cyanotic, diaphoretic, NAD or pallor HEENT Reports moist mucous membranes HEENT Narrative: Head is atraumatic and normocephalic. Ears are normal. TMs normal. Nares are patent. Posterior pharynx is normal. trauma and tenderness Eyes PERRL and EOMs intact bilaterally General Eye ED: Negative for pale conjunctiva or scleral icterus Neck no lymphadenopathy, No supple and no JVD Neck Narrative: Patient has limited range of motion i.e. flexion, extension rotation right or left. She has predominantly Ilir lateral posterior cervical spine tenderness. There is no posterior cervical lymphadenopathy. There are no dermatologic lesions noted. Resp normal respiratory effort and clear to auscultation bilaterally Cardio regular rate, regular rhythm, S1 normal heart sound, S2 normal heart sound and no murmurs GI normal to inspection, nondistended, normoactive bowel sounds, non-tender, non-distended and no masses; Negative for hepatosplenomegaly Back/Spine Cervical Spine: cervical spine tenderness Cervical Spine Tenderness Details: C2,C3, C4, C5, C6 and C7 Thoracic Spine / Upper Back: Negative for thoracic spinal tenderness Lumbar Spine / Lower Back: Negative for lumbar spinal tenderness Extremity Extremity Narrative: Patient has significant surgical scar right knee. There is no clubbing or cyanosis of the upper or lower extremities. Patient has palpable distal pulses upper and lower extremity. Neuro oriented x3, CN's II-XII intact bilaterally and no sensory deficits noted Neuro Narrative: DTR are 3-4+ bicep, brachialis and tricep and 1+ at the patella and ankle. There is no abnormal sensation see 5 through T1 dermatome right or left upper extremity. Sensorium / Orientation: alert Motor Exam: strength 5/5 throughout Skin no rashes or lesions noted, no wounds and skin turgor normal General Skin Exam: Negative for elasticity normal, jaundice or pallor MDM MDM MDM Narrative Medical decision making narrative: Patient with atraumatic neck pain without radicular pain or sensory deficit. Her reflexes are hyperreflexic. Will start with x-ray. She was medicated with morphine for her pain. There are no prior records available Lab Data Attestation: I reviewed the patient's lab results. Lab results narrative: White count is slightly elevated. Patient does have anemia with normal indices. BMP has a normal BUN and creatinine however estimated creatinine clearance calculated is 37.5 with an estimated GFR of 80. Glucose slightly evaded at 112. Labs: Laboratory Results - last 24 hr 11/30/24 10:49 WBC 12.4 H RBC 3.31 L Hgb 9.0 L Hct 28.3 L MCV 85.5 MCH 27.2 MCHC 31.8 L RDW Std Deviation 45.6 H RDW Coeff of David 14.6 Plt Count 334 MPV 10.4 Sodium 141 Potassium 4.1 Chloride 102 Carbon Dioxide 27.9 Anion Gap 11 BUN 10 Creatinine 0.74 Estim Creat Clear Calc 37.60 L Est GFR (MDRD) Non-Af 80 BUN/Creatinine Ratio 14.0 Glucose 112 H Calcium 8.6 Radiography Chest X-Ray - ED: Read by ED Physician (5 view x-ray of the neck reveals some minimal degenerative changes. No significant narrowing of the cervical foramensright or left.) Diagnostic Testing: Clinical Impression(s) from Imaging Studies Cervical Spine X-Ray 11/30/24 11:00 IMPRESSION: Moderate cervical degenerative changes. Slight leftward offset of the dens of the axis, likely due to patient positioning. If continued clinical concern, CT C-spine could be obtained for further evaluation. Reading Location: [id number] Management Discussion w/another healthcare provider: Hospitalist (Spoke to Dr. Larkin. Clarification guarding patient's paresthesia, observation with consult to OT PT and case management) Treatment and Re-Evaluation :: There is states they were able to get patient off. She did ambulate with walker. She ambulated slowly. Concern by her nurse, Renata, is that daughter is not able to lift her so that she is able to walk. Comments:: The social service liaison informed that her insurance requires a 3-day hospital stay. She just had qualified for 3-day hospital stay. She recommend observation status with OP and PT evaluation and case management to work with her insurance company for placement at nursing facility based on her age and risk for fall. Discharge Plan Dx/Rx/DC Orders Clinical Impression: Acute cervical myofascial strain, Difficulty in walking, Adult failure to thrive, Chronic anemia, Elevated blood-pressure reading without diagnosis of hypertension Disposition Disposition: Acute Care Hospital [facility] What to do if you have Problems For any increased pain, shortness of breath, bleeding, nausea or vomiting, chestpain, or any unexpected problems, contact your Primary Care Provider. Call [facility] ([phone]) or report to the closest Emergency Room. Call 911 if necessary. 11/30/24 1320 <Electronically signed by Dorian Ballard MD> Cosigner Signature (if applicable): CC: ~ Signed [facility] Work Phone: Discharge summary Author Iván Larkin [facility] Note Date/Time December 01, 2024 4:02 pm [facility] Medical Records Department [address] [place] [address] Transfer to [facility] MR#: [id number] Acct: [id number] Name: KATHRYN TAMEZ I Rep #:[id number] : 1940 84 From: Iván Larkin DO PCP: OUT OF TOWN DOCTOR Status:ADM STEVAN Certification of patient admission REQUIRED AT TIME OF ADMISSION. I CERTIFY THAT POST-HOSPITAL ECF SERVICES ARE REQUIRED TO BE GIVEN ON AN IN-PATIENT BASIS BECAUSE OF THE ABOVE NAMED PATIENT'S NEED FOR HALFWAY CARE ON A CONTINUING BASIS FOR THE CONDITION(S) FOR WHICH HE/SHE WAS RECEIVING IN-PATIENT HOSPITAL SERVICES PRIOR TO HIS/HER TRANSFER TO THE F. 12/01/24 1602<Electronically signed by Iván Larkin DO> Diet Diet Order/Speech Therapy: INPATIENT Hospital Diet / Speech Therapy Order(s) 11/30/24 13:54 Diet: Regular - General Food consistency:: Regular Liquid Consistency:: Regular/Thin Routine Orders/Code Status Code Status: Full Code DC O2, CPAP, BIPAP needs Home O2 Discharge instructions: No Wound(s) left arm: Wound Type: Abrasion Therapies Physical Therapy: Eval and Treat Occupational Therapy: Eval and Treat Problem/Diagnosis (1) Adult failure to thrive: Status: Acute Code(s): R62.7 - Adult failure to thrive Plan: Secondary recent back surgery and not being able to engage in therapy due to recent illness and then just not getting reestablished. PT OT evaluate and treat Case management to assist with disposition Anticipate the patient will require longterm facility when she is ready for discharge. (2) Acute cervical myofascial strain: Status: Acute Code(s): S16.1XXA - Strain of muscle, fascia and tendon at neck level, initial encounter Plan: Atraumatic. I suspect it is probably due to some position she may have slept in. There is no trauma so I do not feel the issue with her dens is concerning at allas she has full range of motion. Neck pain seems to be more muscular Will schedule acetaminophen, add as needed ketorolac and a Lidoderm patch. Improving. Plan Recent back surgery: Incision appears to be clean and intact. Follow-up with Dr. Morrison as outpatient. VTE prophylaxis with enoxaparin CODE STATUS: Addressed with the patient. Patient wishes to be full code Allergies/Procedures Done in Hospital Allergies No Known Allergies Allergy (Verified 11/30/24 10:25) Type of Care/Length of Stay Estimated LOS: Convalescent Care Less Than 30 days Type of Care Needed: Skilled Rehab Potential: Good Prognosis: Good Additional Orders/Day of Discharge Day of Discharge: 12/01/24 Discharge Plan Admission Admit Date/Time: 11/30/24 13:18 Primary Reason for Your Visit: debility. neck strain. Attending Provider: Iván Larkin Primary Care Provider: Dwayne Snyder,Out of Discharge Orders/Prescriptions Prescriptions: New acetaminophen 500 mg Tablet 1,000 mg PO Q8 Qty: 0 0RF lidocaine 5 % Adhesive Patch,Medicated 1 patch topical DAILY Qty: 0 0RF Protocol: *Topical Application Instructions APPLICATION INSTRUCTIONS: to neck Continued sertraline 100 mg tablet 200 mg PO DAILY sumatriptan succinate 50 mg tablet 50 mg PO .COMPLEX Rx Instructions: 50 mg orally AT ONSET OF HANKS; hydroxyzine HCl 10 mg tablet 10 mg PO QHS levothyroxine 88 mcg tablet 88 mcg PO DAILY gabapentin 300 mg capsule 300 mg PO BID oxycodone 10 mg tablet 10 mg PO Q4H PRN (Reason: pain) 3 Days Qty: 12 0RF Referrals / Follow Up: Dwayne Snyder,Out of [Primary Care Provider] - Disposition Disposition (needs filled in before D/C Order can be placed): Alf Facility 12/01/24 1602 <Electronically signed by Iván Larkin DO> Cosigner Signature (if applicable): CC: ~ [facility] Work Phone: Discharge summary Author Iván Larkin [facility] Note Date/Time December 01, 2024 4:04 pm [facility] Medical Records Department [address] [place] [address] Discharge Summary 12/01/24 1602 MR#: [id number] Acct: [id number] Name: KATHRYN TAMEZ I Rep #:[id number] : 1940 84 From: Iván Larkin DO PCP: OUT OF TOWN DOCTOR Status:ADM STEVAN [id number] Date of Admission: 11/30/24 Primary Care Physician: Out of Town Doctor Reason For Visit: FAILURE TO THRIVE Diagnosis Discharge Diagnosis (1) Adult failure to thrive: Status: Acute Code(s): R62.7 - Adult failure to thrive Plan: Secondary recent back surgery and not being able to engage in therapy due to recent illness and then just not getting reestablished. PT OT evaluate and treat Case management to assist with disposition Anticipate the patient will require longterm facility when she is ready for discharge. (2) Acute cervical myofascial strain: Status: Acute Code(s): S16.1XXA - Strain of muscle, fascia and tendon at neck level, initial encounter Plan: Atraumatic. I suspect it is probably due to some position she may have slept in. There is no trauma so I do not feel the issue with her dens is concerning at allas she has full range of motion. Neck pain seems to be more muscular Will schedule acetaminophen, add as needed ketorolac and a Lidoderm patch. Improving. Plan Recent back surgery: Incision appears to be clean and intact. Follow-up with Dr. Morrison as outpatient. VTE prophylaxis with enoxaparin CODE STATUS: Addressed with the patient. Patient wishes to be full code Medications at Discharge Home Medications gabapentin 300 mg capsule 300 mg PO BID 11/30/24 hydroxyzine HCl 10 mg tablet 10 mg PO QHS 11/30/24 levothyroxine 88 mcg tablet 88 mcg PO DAILY 11/30/24 sertraline 100 mg tablet 200 mg PO DAILY 11/30/24 sumatriptan succinate 50 mg tablet 50 mg PO .COMPLEX 11/30/24 acetaminophen 500 mg tablet 1,000 mg (2 x 500 mg) PO Q8 #0 tabs 12/01/24 lidocaine 5 % topical patch 1 patch topical DAILY #0 ea 12/01/24 oxycodone 10 mg tablet 10 mg PO Q4H PRN pain 3 days #12 tabs 12/01/24 Hospital Course Operations None Procedures None Summary of Care Provided Minutes Spent on Discharge: 32 Hospital Course: This is an 84-year-old female presents with weakness. 3 weeks prior had had back surgery and was doing well but then became sick and then was not seen during therapy and then had not gotten reestablished with therapy just continue to get weaker and weaker. Complicating this she developed severe neck pain thatwas atraumatic. Neck pain was musculoskeletal and. Patient was brought in paincontrol was initiated and patient felt better. Patient was evaluated and was deemed appropriate for the transitional care unit and patient will be dischargedthere today. Weight / BMI Weight Weight: 53.5 kg Body Mass Index (BMI) 23.0 ABG / Lab / Microbiology Data 12/01/24 14:24 12/01/24 14:24 Laboratory: Laboratory Results - last 24 hr 12/01/24 14:24: WBC 10.8, RBC 3.36 L, Hgb 9.2 L, Hct 29.5 L, MCV 87.8, MCH 27.4,MCHC 31.2 L, RDW Std Deviation 47.7 H, RDW Coeff of David 14.7 H, Plt Count 321, MPV 10.7, Immature Gran % (Auto) 1.300 H, Neut % (Auto) 60.5, Lymph % (Auto) 17.7 L, [place] % (Auto) 20.0 H, Eos % (Auto) 0.2, Baso % (Auto) 0.3, Absolute Neuts (auto) 6.6, Absolute Lymphs (auto) 1.92, Nucleated RBC % 0, Sodium 142, Potassium 3.9, Chloride 103, Carbon Dioxide 27.7, Anion Gap 12, BUN 21 H, Creatinine 1.04, Estim Creat Clear Calc 28.92 L, Est GFR (MDRD) Non-Af 53 L, BUN/Creatinine Ratio 20.4 H, Glucose 108 H, Calcium 8.6 D/C Instructions Discharge Diet: No restrictions DC O2, CPAP, BIPAP Needs Home O2 Discharge instructions: No Meaningful Use Info Meaningful Use Meaningful Use Diagnoses (Choose all that apply): None applicable Ischemic Stroke Statin Dosing Therapy Reference: STATIN DOSE THERAPY REFERENCE: * Patients > 75 years receive moderate or high dose statin therapy. * Patients 75 years or YOUNGER should receive HIGH intensity statin dose unless contraindicated. You will be required to document reason for non-treatment if statin daily dose does not meet guidelines. HIGH DOSE STATIN THERAPY DAILY Atorvastatin > than or = to 40 mg Rosuvastatin > than or = to 20 mg Amlodipine + Atorvastatin > than or = to 2.5/40 mg Ezetimibe + Simvastatin 10/80 mg Simvastatin 80mg Discharge Plan Admission Admit Date/Time: 11/30/24 13:18 Primary Reason for Your Visit: debility. neck strain. Attending Provider: Iván Larkin Primary Care Provider: Dwayne Snyder,Out of Discharge Orders/Prescriptions Prescriptions: New acetaminophen 500 mg Tablet 1,000 mg PO Q8 Qty: 0 0RF lidocaine 5 % Adhesive Patch,Medicated 1 patch topical DAILY Qty: 0 0RF Protocol: *Topical Application Instructions APPLICATION INSTRUCTIONS: to neck Continued sertraline 100 mg tablet 200 mg PO DAILY sumatriptan succinate 50 mg tablet 50 mg PO .COMPLEX Rx Instructions: 50 mg orally AT ONSET OF HANKS; hydroxyzine HCl 10 mg tablet 10 mg PO QHS levothyroxine 88 mcg tablet 88 mcg PO DAILY gabapentin 300 mg capsule 300 mg PO BID oxycodone 10 mg tablet 10 mg PO Q4H PRN (Reason: pain) 3 Days Qty: 12 0RF Referrals / Follow Up: Dwayne Snyder,Out of [Primary Care Provider] - Disposition Disposition (needs filled in before D/C Order can be placed): Alf Facility Charges/Coding Visit Charges Inpatient E&M: 14371 Disch Hosp >30min 12/01/24 1604 <Electronically signed by Iván Larkin DO> Cosigner Signature (if applicable): CC: Dr. Iván Larkin DO~ Signed [facility] Work Phone: Evaluation note* Diagnosis Nausea and vomiting, intractability of vomiting not specified, unspecified vomiting type- Primary Diarrhea, unspecified type Generalized abdominal pain Abdominal pain, generalized documented in this encounter [facility] Work Phone: Evaluation note* Diagnosis Fall, initial encounter- Primary Fall at home, initial encounter documented in this encounter [facility] Work Phone: Evaluation noteThere may be information available, but it has not been provided by the sender.[facility] Work Phone: Evaluation note* Diagnosis Acute bronchitis, unspecified organism- Primary [facility] Acute bronchitis, unspecified organism [facility] Diagnosis Neck pain- Primary Cervicalgia documented in this encounter [facility] Work Phone: Evaluation note* Diagnosis Trigger middle finger of left hand- Primary Trigger finger (acquired) Trigger middle finger of right hand Trigger finger (acquired) [facility] Diagnosis Adjustment disorder with mixed anxiety and depressed mood [facility] Diagnosis Trigger middle finger of left hand- Primary Trigger finger (acquired) Trigger middle finger of right hand Trigger finger (acquired) Trigger middle finger of right hand Trigger finger (acquired) [facility] Diagnosis Trigger middle finger of right hand- Primary Trigger finger (acquired) Trigger middle finger of right hand [facility]igger [facility] (acquired) [facility] Adjustment disorder with mixed anxiety and depressed mood [facility] Diagnosis Diarrhea, unspecified type- Primary Abdominal pain, unspecified abdominal location Screening for diabetes mellitus Hyperlipidemia, mixed Mixed hyperlipidemia Hypothyroidism, acquired Unspecified hypothyroidism Bilateral hearing loss, unspecified hearing loss type Severe malnutrition (HCC) Nutritional marasmus [facility] Diagnosis Trigger middle finger of right hand- Primary Trigger finger (acquired) [facility] Diagnosis Trigger middle finger of left hand- Primary Trigger finger (acquired) [facility] Diagnosis Trigger middle finger of right hand- Primary Trigger finger (acquired) Postoperative infection, unspecified type, subsequent encounter [facility] Diagnosis Postoperative state- Primary Other postprocedural status Nausea Nausea alone [facility] Diagnosis Diarrhea, unspecified type- Primary Abdominal pain, unspecified abdominal location Postoperative state Other postprocedural status Fatigue, unspecified type [facility] Diagnosis Trigger middle finger of right hand- Primary Trigger [facility] (acquired) [facility] Trigger middle finger of right hand- Primary Trigger finger (acquired) [facility] Diagnosis Trigger middle finger of right hand- Primary Trigger finger (acquired) [facility] Diagnosis Postoperative state- Primary Other postprocedural status [facility] Diagnosis Adjustment disorder with mixed anxiety and depressed mood [facility] Diagnosis Postsurgical hypothyroidism [facility] Diagnosis Adjustment disorder with mixed anxiety and depressed mood [facility] Diagnosis Trigger middle finger of right hand- Primary Trigger finger (acquired) Abscess of right middle finger [facility] Diagnosis Trigger middle finger of right hand- Primary Trigger finger (acquired) Abscess of right middle finger [facility]* Diagnosis Adjustment disorder with mixed anxiety and depressed mood [facility] Diagnosis Injury of triangular fibrocartilage complex (TFCC) of right wrist, initial encounter- Primary Right hand pain Pain in limb [facility] Diagnosis Injury of triangular fibrocartilage complex (TFCC) of right wrist, subsequent encounter- Primary Right hand pain Pain in limb Carpal tunnel syndrome of right wrist Carpal tunnel syndrome [facility]* Diagnosis Adjustment disorder with mixed anxiety and depressed mood [facility]* Diagnosis Postsurgical hypothyroidism [facility] Diagnosis Trigger little finger of right hand- Primary Trigger finger (acquired) Trigger ring finger of right hand Trigger finger (acquired) Arthritis of right hand Unspecified arthropathy, hand Trigger little finger of right hand Trigger finger (acquired) Trigger finger, right ring finger [facility] Diagnosis Trigger little finger of right hand- Primary Trigger finger (acquired) Trigger finger, right ring finger Trigger little finger of right hand Trigger finger (acquired) Trigger finger, right ring finger [facility]* Diagnosis Right hand pain- Primary Pain in limb [facility] Diagnosis Right hand pain- Primary Pain in limb Stiffness of joint Stiffness of joint, not elsewhere classified, unspecified site [facility] Diagnosis Right hand pain- Primary Pain in limb [facility] Diagnosis Adjustment disorder with mixed anxiety and depressed mood Postsurgical hypothyroidism [facility] Diagnosis Right hand pain- Primary Pain in limb Stiffness of joint Stiffness of joint, not elsewhere classified, unspecified site [facility] Diagnosis 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, right- Primary [facility] Diagnosis Right hand pain- Primary Pain in limb Stiffness of joint Stiffness of joint, not elsewhere classified, unspecified site [facility] Diagnosis 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, right- Primary Pain in left wrist Pain in joint, forearm [facility] Diagnosis 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, right- Primary [facility] Diagnosis Acute pain of left knee- Primary Left ankle injury, initial encounter Acute pain of left knee Left ankle injury, initial encounter [facility] Diagnosis Acute pain of left knee Left ankle injury, initial encounter [facility] Diagnosis Arthritis of finger of left hand- Primary Arthritis of finger of right hand [facility]* Diagnosis Adjustment disorder with mixed anxiety and depressed mood [facility] Diagnosis Postsurgical hypothyroidism [facility]* Diagnosis Generalized abdominal pain- Primary Abdominal pain, generalized Continuous overuse of medication Other, mixed, or unspecified nondependent drug abuse, continuous [facility]* Diagnosis Generalized abdominal pain Abdominal pain, generalized [facility]* Diagnosis Other spondylosis with radiculopathy, lumbosacral region Spondylolisthesis, lumbar region Other specified postprocedural states documented in this encounter [facility] note* Diagnosis Generalized abdominal pain Abdominal pain, generalized [facility]* Diagnosis Adjustment disorder with mixed anxiety and depressed mood documented in this encounter [facility] note* Diagnosis Generalized abdominal pain Abdominal pain, generalized documented in this encounter [facility] note* Diagnosis Other spondylosis with radiculopathy, lumbosacral region- Primary Spondylolisthesis, lumbar region Other specified postprocedural states Other spondylosis with radiculopathy, lumbosacral region Spondylolisthesis, lumbar region Other specified postprocedural states documented in this encounter [facility] note* Diagnosis Urinary tract infection without hematuria, site unspecified- Primary documented in this encounter [facility] note* Diagnosis Lumbar radiculopathy- Primary Thoracic or lumbosacral neuritis or radiculitis, unspecified Preoperative clearance Preoperative examination, unspecified documented in this encounter [facility] note* Diagnosis Inability to walk- Primary Difficulty in walking Chronic midline low back pain without sciatica Inability to walk Difficulty in walking Anorexia Myalgia Unspecified myalgia and myositis Dehydration Chronic diarrhea Diarrhea Pneumonia due to infectious organism, unspecified laterality, unspecified part of lung Leukocytosis, unspecified type Severe sepsis (HCC) Fall, initial encounter documented in this encounter [facility] note* Diagnosis Encounter for examination following treatment at hospital- Primary Anemia, unspecified type Hypokalemia Hypopotassemia Adjustment disorder with mixed anxiety and depressed mood Postsurgical hypothyroidism Generalized abdominal pain Abdominal pain, generalized Hypothyroidism, acquired Unspecified hypothyroidism Hyperlipidemia, mixed Mixed hyperlipidemia documented in this encounter [facility] note* Diagnosis Preop examination- Primary Preoperative examination, unspecified documented in this encounter [facility] note* Diagnosis Recurrent UTI (urinary tract infection)- Primary Urinary tract infection, site not specified documented in this encounter [facility] note* Diagnosis Recurrent UTI (urinary tract infection)- Primary Urinary tract infection, site not specified documented in this encounter [facility] note* Diagnosis Abnormal urinalysis- Primary Other nonspecific finding on examination of urine Recurrent UTI (urinary tract infection) Urinary tract infection, site not specified documented in this encounter [facility] note* Diagnosis Recurrent UTI (urinary tract infection)- Primary Urinary tract infection, site not specified Abnormal urinalysis Other nonspecific finding on examination of urine documented in this encounter [facility] note* Diagnosis Recurrent UTI (urinary tract infection)- Primary Urinary tract infection, site not specified [facility] Diagnosis Preop examination- Primary Preoperative examination, unspecified Postsurgical hypothyroidism Adjustment disorder with mixed anxiety and depressed mood Migraine without status migrainosus, not intractable, unspecified migraine type documented in this encounter [facility] note* Diagnosis Trigger middle finger of left hand- Primary Trigger finger (acquired) Trigger ring finger of left hand Trigger finger (acquired) documented in this encounter [facility] note* Diagnosis Colitis due to Clostridioides difficile- Primary Colitis due to Clostridioides difficile Acute pulmonary edema (HCC) Unspecified acute edema of lung Moderate malnutrition (CMS/HCC) (HCC) [facility]* Diagnosis Onset Date Resolution Status Admit Date Acute cervical myofascial strain acu te November 30, 2024 1:18pm Adult failure to thrive acute J une 2024 1:18pm Difficulty in walking acute Antonino e 2024 1:18pm Elevated blood-pressure read ing without diagnosis of hypertension acute November 30, 2024 1:18pm Chronic anemia chronic November 30, 2024 1:18pm [facility] Work Phone: Hospital Discharge instructions* Attachments The following attachments cannot be sent through Care Everywhere. * Myelography (Malawian) [facility]ructionsNo information available. [facility] Work Phone: Reason for referral (narrative)* Diagnostic Procedure Only (Routine) - Pending Review Specialty Diagnoses / Procedures Referred By Gema reyes Referred To Contact XR IMAGING Diagnoses Right hand pain Injury of triangular fibrocartilage complex (TFCC) of right wrist, initial encounter Procedures XR HAND GENERAL 3V PA/LAT/OBL RIGHT RADEX HAND MINIMUM 3 VIEWS Britany Hodges PA-C [address] [facility] [address] [place] [address] Xr Imaging Referral ID Status Reason Start Date Expiration Date Visits Requested Visits Authorized [id number] Pending Review Auto-Generat ed Referral 11/24/2022 12/24/2023 1 1 [facility] for referral (narrative)* Diagnostic Procedure Only (Urgent) - Closed Specialty Diagnoses / Procedures Referred By Contac t Referred To Contact XR IMAGING Diagnoses Left ankle injury, initial encounter Procedures XR ANKLE GENERAL 3V AP/LAT/OBL LEFT RADEX ANKLE COMPLETE MINIMUM 3 VIEWS Lyndon Miranda APRN.[employer] [place] [address] [place] [address] Referral ID Status Reason Start Date Expiration Date V isits Requested Visits Authorized [id number] Closed Auto-Generate d Referral 02/01/2024 03/02/2025 1 1 * Diagnostic Procedure Only (Urgent) - Closed Specialty Diagnoses / Procedures Referred By Contac t Referred To Contact XR IMAGING Diagnoses Acute pain of left knee Procedures XR KNEE GENERAL 4V AP BOTH/PA BOTH/LAT/MERC LEFT RADIOLOGIC EXAM KNEE COMPLETE 4/MORE VIEWS Lyndon Miranda APRN.[employer] [address] [place] [address] [place] [address] Referral ID Status Reason Start Date Expiration Date V isits Requested Visits Authorized [id number] Closed Auto-Generate d Referral 02/01/2024 03/02/2025 1 1 [facility] for referral (narrative)* Diagnostic Procedure Only (Urgent) - Closed Specialty Diagnoses / Procedures Referred By Contac t Referred To Contact XR IMAGING Diagnoses Left ankle injury, initial encounter Procedures XR ANKLE GENERAL 3V AP/LAT/OBL LEFT RADEX ANKLE COMPLETE MINIMUM 3 VIEWS Lyndon Miranda APRN.[employer] [address] [place] [address] [place] [address] Referral ID Status Reason Start Date Expiration Date V isits Requested Visits Authorized [id number] Closed Auto-Generate d Referral 02/01/2024 03/02/2025 1 1 * Diagnostic Procedure Only (Urgent) - Closed Specialty Diagnoses / Procedures Referred By Contac t Referred To Contact XR IMAGING Diagnoses Acute pain of left knee Procedures XR KNEE GENERAL 4V AP BOTH/PA BOTH/LAT/MERC LEFT RADIOLOGIC EXAM KNEE COMPLETE 4/MORE VIEWS Lyndon Miranda, JESSICA.[employer] [address] [place] [address] [place] [address] Referral ID Status Reason Start Date Expiration Date V isits Requested Visits Authorized [id number] Closed Auto-Generate d Referral 02/01/2024 03/02/2025 1 1 [facility] for referral (narrative)* Diagnostic Procedure Only (Routine) - Closed Specialty Diagnoses / Procedures Referred By Contac t Referred To Contact XR IMAGING Diagnoses Generalized abdominal pain Procedures XR ACUTE ABD SERIES 3V (2V ABD/1V CXR) RADIOLOGIC EXAM COMPLETE ACUTE ABDOMEN SERIES Verenice Roca MD [address] [place] [address] [place] [address] Referral ID Status Reason Start Date Expiration Date V isits Requested Visits Authorized [id number] Closed Auto-Generate d Referral 04/01/2024 05/01/2025 1 1 [facility] for referral (narrative)* Diagnostic Procedure Only (Routine) - Closed Specialty Diagnoses / Procedures Referred By Contac t Referred To Contact XR IMAGING Diagnoses Generalized abdominal pain Procedures XR ACUTE ABD SERIES 3V (2V ABD/1V CXR) RADIOLOGIC EXAM COMPLETE ACUTE ABDOMEN SERIES Verenice Roca MD [address] [place] [address] [place] [address] Referral ID Status Reason Start Date Expiration Date V isits Requested Visits Authorized [id number] Closed Auto-Generate d Referral 04/01/2024 05/01/2025 1 1 [facility] for referral (narrative)No reason for referral information availableWTriHealth [facility] N[facility]* Diagnostic Procedure Only (Urgent) - Closed Specialty Diagnoses / Procedures Referred By Contac t Referred To Contact XR IMAGING Diagnoses Left ankle injury, initial encounter Procedures XR ANKLE GENERAL 3V AP/LAT/OBL LEFT RADEX ANKLE COMPLETE MINIMUM 3 VIEWS Lyndon Miranda, [employer] [address] [place] [address] [place] [address] Referral ID Status Reason Start Date Expiration Date V isits Requested Visits Authorized [id number] Closed Auto-Generate d Referral 02/01/2024 03/02/2025 1 1 [facility] for visit Narrative* Diagnostic Procedure Only (Routine) - Closed Specialty Diagnoses / Procedures Referred By Contac t Referred To Contact XR IMAGING Diagnoses Generalized abdominal pain Procedures XR ACUTE ABD SERIES 3V (2V ABD/1V CXR) RADIOLOGIC EXAM COMPLETE ACUTE ABDOMEN SERIES Verenice Roca MD [address] [place] [address] [place] [address] Referral ID Status Reason Start Date Expiration Date V isits Requested Visits Authorized [id number] Closed Auto-Generate d Referral 04/01/2024 05/01/2025 1 1 [facility] for visit Narrative* Imaging (Routine) - Closed Specialty Diagnoses / Procedures Referred By Contac t Referred To Contact Radiology Diagnoses Other spondylosis with radiculopathy, lumbosacral region Spondylolisthesis, lumbar region Other specified postprocedural states Procedures IR myelography lumbosacral SI Cali Morrison MD [address] [place] [address] Phone: tel: fax: Referral ID Status Reason Start Date Expiration Date Visits Re quested Visits Authorized [id number] Closed 03/31/2024 03/31/2025 2 2 [facility] for visit Narrative* Imaging (Routine) - Closed Specialty Diagnoses / Procedures Referred By Contac t Referred To Contact Radiology Diagnoses Other spondylosis with radiculopathy, lumbosacral region Spondylolisthesis, lumbar region Other specified postprocedural states Procedures IR myelography lumbosacral SI Cali Morrison MD [address] [place] [address] Phone: tel: fax: Referral ID Status Reason Start Date Expiration Date Visits Re quested Visits Authorized [id number] Closed 03/31/2024 03/31/2025 2 2 [facility] N[facility]* Auth/Cert (Routine) Specialty Diagnoses / Procedures Referred By Contac t Referred To Contact Diagnoses Colitis due to Clostridioides difficile C Diff Colitis Procedures 0 Sherry Pruitt MD [address] [place] [address] Phone: tel: fax: [facility] PCU [address] [place] [phone] Phone: tel: Referral ID Status Reason Start Date Expiration Date Visits Re quested Visits Authorized [id number] 1 1 [facility] Discharge Instructions * Instructions* Renata Guerrier PA - 08/19/2020 Please take the pain medication that I prescribed. If your pain does not improve, please follow-up with the orthopedic surgeon that I listed. There is a possibility you tore a muscle. * Attachments The following attachments cannot be sent through Care Everywhere. * Shoulder Arthritis: Exercises (Malawian) documented in this encounter* Instructions* Renata Guerrier PA - 08/19/2020 Please take the pain medication that I prescribed. If your pain does not improve, please follow-up with the orthopedic surgeon that I listed. There is a possibility you tore a muscle. 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 ACP-Advance Directive ACP-Power of Oiler Helper Latest Code Status on File Code Status Date Activated Date Inactivated Comments Full Code 08/04/2018 12:41 PM 08/06/2018 5:09 PM Full Code 08/04/2018 12:10 PM 08/04/2018 12:41 PM Full Code 08/03/2018 11:36 PM 08/04/2018 12:07 PM Documents on File Type Date Recorded 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 ACP-Advance Directive ACP-Power of Oiler Helper Latest Code Status on File Code Status Date Activated Date Inactivated Comments Full Code 08/04/2018 12:41 PM 08/06/2018 5:09 PM Full Code 08/04/2018 12:10 PM 08/04/2018 12:41 PM Full Code 08/03/2018 11:36 PM 08/04/2018 12:07 PM Latest Code Status on File Code Status Date Activated Date Inactivated Comments DNR-CCA 04/21/2021 9:29 AM Full Code 08/04/2018 12:41 PM 08/06/2018 5:09 PM Latest Code Status on File Code Status Date Activated Date Inactivated Comments DNR-CCA 05/08/2021 12:58 AM DNR-CCA 04/21/2021 9:29 AM 04/26/2021 5:49 PM Latest Code Status on File Code Status Date Activated Date Inactivated Comments DNR-CCA 05/08/2021 12:58 AM 05/10/2021 3:38 PM Latest Code Status on File Code Status Date Activated Date Inactivated Comments Full Code 07/17/2022 8:32 AM Full Code Order Discussed With: Patient Latest Code Status on File Code Status Date Activated Date Inactivated Comments Full Code 07/17/2022 8:32 AM 07/17/2022 8:11 PM Latest Code Status on File Code Status Date Activated Date Inactivated Comments Full Code 07/17/2022 8:32 AM 07/17/2022 8:11 PM Latest Code Status on File Code Status Date Activated Date Inactivated Comments Full Code 07/17/2022 8:32 AM 07/17/2022 8:11 PM Question Answer Comments Full Code Order Discussed With: Patient Date Activated Date Inactivated Comments 07/17/2022 8:32 AM 07/17/2022 8:11 PM Question Answer Comments Full Code Order Discussed With: Patient Date Activated Date Inactivated Comments 07/17/2022 8:32 AM 07/17/2022 8:11 PM Question Answer Comments Full Code Order Discussed With: Patient Date Activated Date Inactivated Comments 07/18/2024 6:02 PM 07/24/2024 3:09 PM Date Activated Date Inactivated Comments 11/07/2024 9:21 PM 11/18/2024 2:40 PM Date Activated Date Inactivated Comments 07/18/2024 6:02 PM 07/24/2024 3:09 PM Advance Directive Response Recorded Date/ Time Do you have a Healthcare Power of Oiler Helper? No November 30, 2024 10:33am Advance Directive Response Recorded Date/ Time Do you have a Healthcare Power of Oiler Helper? Yes November 30, 2024 1:54pm Name of Medical Power of Oiler Helper Hyun Purcell November 30, 2024 1:54pm Reason for Referral Status Reason Specialty Diagnoses / Procedures Referred By Contact Referred To Contact Open Specialty Services Required Orthopedic Surgery: Hand Surgery / Orthopedic Surgery Diagnoses Strain of right shoulder, initial encounter Renata Guerrier, MAXINE [address] [place] [address] [address] [address] [address] [facility] [address] [place] [address] Scheduling Instructions [facility] Orthopedics Hand/Wrist Upper Extremities - [place] [address] [facility], [address] [place] [address] Specialty Diagnoses / Procedures Referred By Contac t Referred To Contact Gastroenterology Diagnoses Diarrhea, unspecified type Procedures CONSULT TO GASTROENTEROLOGY OFFICE/OUTPATIENT [facility] 60-74 MINUTES Leonardo Lyles P, [employer] [address] [place] [address] Referral ID Status Reason Start Date Expiration Date Visits Requested Visits Authorized [id number] Pending Review PCP Requested Referral 2 05/26/2023 1 1 Summary Purpose Family History No Family History Records FoundThere may be information available, but it has not been provided by the sender.No Family History Records FoundNo Family History Records FoundNo Family History Records FoundNo Family History Records FoundNo Family History Records FoundNo Family History Records FoundNo Family History Records Found Chief Complaint Chief Complaint Description Start Date right shoulder post Right sh oulder arthroscopic rotator cuff repair subacromial decompression and distal clavicle excision on 11/25/2020 Preliminary chief co mplaint data, not yet signed by the author as of Medications Administered Section Inactive Administered Medications - up to 3 most recent administrations Medication Order MAR Action Action Date Dose Rate Site lidocaine (PF) 10 mg/mL (1 %) 1 mL injection (XYLOCAINE) 1 mL, Injection - FOR ORTHO USE ONLY, ONE TIME INJECTION, 1 dose, Starting on Sun04/07/22 at 1032, Until Sun04/07/22 at 1032 Given 04/07/2022 10:32 AM EDT 1 mL Hand, Left lidocaine (PF) 10 mg/mL (1 %) 1 mL injection (XYLOCAINE) 1 mL, Injection - FOR ORTHO USE ONLY, ONE TIME INJECTION, 1 dose, Starting on Sun04/07/22 at 1032, Until Sun04/07/22 at 1032 Given 04/07/2022 10:32 AM EDT 1 mL Hand, Right triamcinolone acetonide 40 mg injection (KeNALog 40) 40 mg, Injection - FOR ORTHO USE ONLY, ONE TIME INJECTION, 1 dose, Starting on Sun04/07/22 at 1032, Until Sun04/07/22 at 1032 Given 04/07/2022 10:32 AM EDT 40 mg Hand, Left triamcinolone acetonide 40 mg injection (KeNALog 40) 40 mg, Injection - FOR ORTHO USE ONLY, ONE TIME INJECTION, 1 dose, Starting on Sun04/07/22 at 1032, Until Sun04/07/22 at 1032 Given 04/07/2022 10:32 AM EDT 40 mg Hand, Right Inactive Administered Medications - up to 3 most recent administrations Medication Order MAR Action Action Date Dose Rate Site betamethasone acetate-betamethasone sodium phosphate 12 mg injection (CELESTONE) 12 mg, Injection - FOR ORTHO USE ONLY, ONE TIME INJECTION, 1 dose, Starting on Sun12/20/22 at 0841, Until Sun12/20/22 at 0841 Given 12/20/2022 8:41 AM EDT 12 mg Hand, Right lidocaine (PF) 10 mg/mL (1 %) 2 mL injection (XYLOCAINE) 2 mL, Injection - FOR ORTHO USE ONLY, ONE TIME INJECTION, 1 dose, Starting on Sun12/20/22 at 0841, Until Sun12/20/22 at 0841 Given 12/20/2022 8:41 AM EDT 2 mL Hand, Right Health Concerns Infection Onset Date Last Indicated Resolved Time COVID-19 Rule-Out 07/14/2022 07/14/2022 07/14/2022 6:53 AM EST COVID-19 Rule-Out 07/14/2022 07/14/2022 07/14/2022 8:55 AM EST Chief Complaint and Reason for Visit Chief Complaint Admit Date FAILURE TO THRIVE November 30, 2024 1:18 pm Reason for Visit Admit Date Acute cervical myofascial strain November 302024 1:18pm Adult failure to thrive November 30, 2024 1:18pm Difficulty in walking November 30, 2024 1: 18pm Elevated blood-pressure read ing without diagnosis of hypertension November 30, 2024 1:18pm Chronic anemia November 30, 2024 1:18 pm Chief Complaint Admit Date FAILURE TO THRIVE November 30, 2024 1:18 pm FAILURE TO THRIVE November 30, 2024 3:41 pm FAILURE TO THRIVE December 01, 2024 7:40 am Additional Source Comments Reason for Visit (unrecogniz ed section and content) Reason Comments OT Progress Note Specialty Diagnoses / Procedures Referred By Contclarice t Referred To Contact Occupational Therapy / OCCUPATIONAL THERAPY Diagnoses post op hand Procedures NEW OT HAND Ermiaszinger, Bharati Schroeder Jr., MD [address] [facility] [address] [place] [address] Emma Saucedo, OT/L [address] [place] [address] Referral ID Status Reason Start Date Expiration Date V isits Requested Visits Authorized [id number] Authorized 08/10/2023 06/10/2024 99 99 Reason Comments Occupational Therapy Reason Comments Arm Injury pt fell off ladder t his afternoon, landed on her right side, hit her head and injured right arm and shoulder. no LOC Reason Comments Arm Injury pt fell off ladder t his afternoon, landed on her right side, hit her head and injured right arm and shoulder. no LOC Reason Comments Abdominal Pain pt brought in by 34 by squad for [place]/D since Sunday. pt in pain management and was changed from oral vicodin to buprenorphine 5mcg/hr patch. per rivas, there is concern that she is misusing the pain patches and replacing them too soon Nausea Emesis Reason Comments Fall Reason For Visit Description Start Date Postop - subsequent visit Preliminary reason f or visit data, not yet signed by the author as of right shoulder post Right sh oulder arthroscopic rotator cuff repair subacromial decompression and distal clavicle excision on 11/25/2020 Reason Comments Follow Up Cough Reason Comments Neck Pain pt c/o neck pain rad iating into head since yesterday. pt denies fall or trauma. Reason Comments Patient Question Reason Comments Missed Appointment #1 no show , no daniel er spoke with patient, rescheduled Reason Comments New Pain Reason Comments Refill Request Reason Comments Follow Up Reason Comments Medication Request Reason Onset Date Comments Refill Request 05/25/2022 Reason Comments Referral Request gastro Reason Comments Diarrhea Hearing Problem Bilateral Reason Comments Appointment Reason Comments Missed Appointment #2 No Show #1 Letter Reason Comments Post Op Follow Up Reason Comments Results Reason Comments Post Op Pain Swelling Reason Comments Post Op Reason Comments Patient Update Patient was a Direct -Admit per WDL Reason Onset Date Comments Refill Request 07/17/2022 Reason Onset Date Comments Transition Of Care 07/18/2022 [facility] Main- D/ C 07/17/22 Reason Comments Post Op Post Op R hand Reason Comments Orders Reason Onset Date Comments Rx Refills Refill Request 08/11/2022 Reason Comments Established Patient Follow Up Pain Post Op Reason Comments Established Patient Pain Reason Comments Established Patient Pain Reason Onset Date Comments Refill Request 02/16/2023 Reason Comments Referral Request Ophthalmology Reason Comments Missed Appointment #2 No Show #2 Letter Reason Comments Post Op Pain Reason Comments OT EVAL Reason Comments Established Patient Follow Up Post Op Pain Reason Comments Established Patient Follow Up Pain Reason Comments Established Patient Electrical ping fe eling Follow Up Electrical ping fe eling Pain Electrical ping fe eling Reason Comments Pain (foot) Left ankle injury, w as walking and fell off balance from a rock and rolled ankle and fell, pain from knee down, swelling and bruising on ankle x 2 days Reason Comments Abdominal Pain 2 solid bowel moveme nts yesterday Gas Bloating, pain Diarrhea 3 straight days last week Reason Comments Erroneous encounter-disregard Reason Comments Pre-Op Visit Reason Comments Weakness, Gen Back Pain Pt arrived by EMS fr om home due to weakness / back pain. Report states ' pt is from home and complain of weakness / back pain / urine retention/ headache'. Upon assessment pt is a&ox msps intact - sob + pain -n/v - dizziness + weakness . Urinary Retention Specialty Diagnoses / Procedures Referred By Contac t Referred To Contact Diagnoses Anorexia Dehydration Myalgia Chronic diarrhea Inability to walk Fall, initial encounter Severe sepsis (HCC) Leukocytosis, unspecified type Chronic midline low back pain without sciatica Pneumonia due to infectious organism, unspecified laterality, unspecified part of lung Procedures - Radha Kitchen MD [address] [place] [address] Phone: tel: fax: [facility] [address] [place] [phone] Phone: tel: Referral ID Status Reason Start Date Expiration Date Visits Re quested Visits Authorized [id number] 1 1 Reason Comments Hospital F/U Reason Comments Clerical Pre-Operative Cleara nce Reason Comments Patient Update UTI Reason Comments Orders Urine Analosis Reason Comments UTI Reason Comments Clerical Reason Comments Pre-Op Visit Pt is here for Surge ry for her back.Marcelina Sheriff 2024 1:20 PM Reason Comments Opened In Error Reason Comments Orders Home health aid and social work Reason Comments Patient Update update Reason Comments Patient Update PT update Ordered Prescriptions (unrec ognized section and content) Prescription Sig Dispensed Refills Start Date End Da te acetaminophen (TYLENOL) 500 MG tablet Take 2 tablets by mouth 4 times daily as needed for Pain 20 tablet 0 08/19/2020 08/24/2020 lidocaine 4 % external patch Place 1 patch onto the skin daily 30 patch 0 08/19/2020 09/18/2020 Prescription Sig Dispensed Refills Start Date End Da te acetaminophen (TYLENOL) 500 MG tablet Take 2 tablets by mouth 4 times daily as needed for Pain 20 tablet 0 08/19/2020 08/24/2020 lidocaine 4 % external patch Place 1 patch onto the skin daily 30 patch 0 08/19/2020 09/18/2020 Prescription Sig Dispensed Refills Start Date End Da te lidocaine (LIDODERM) 5 % Place 1 patch onto the skin daily for 10 days 12 hours on, 12 hours off. 10 patch 0 10/10/2021 10/20/2021 cyclobenzaprine (FLEXERIL) 5 MG tablet Take 1 tablet by mouth daily as needed for Muscle spasms 5 tablet 0 10/10/2021 10/15/2021 meloxicam (MOBIC) 15 MG tablet Take 1 tablet by mouth daily 30 tablet 0 10/10/2021 INFORMATION SOURCE (unrecogn ized section and content) DATE CREATED AUTHOR 11/23/2020 [facility] DATE CREATED AUTHOR AUTHOR'S ORGANIZ ATION 10/12/2021 [facility] DATE CREATED AUTHOR AUTHOR'S ORGANIZ ATION 10/14/2021 [facility] DATE CREATED AUTHOR AUTHOR'S ORGANIZ ATION 10/01/2024 [facility] DATE CREATED AUTHOR AUTHOR'S ORGANIZ ATION 11/18/2024 [facility] DATE CREATED AUTHOR AUTHOR'S ORGANIZ ATION 12/02/2024 [facility] DATE CREATED AUTHOR AUTHOR'S ORGANIZ ATION 12/04/2024 [facility] DATE CREATED AUTHOR AUTHOR'S ORGANIZ ATION 12/05/2024 [facility] Scheduled Active and Recently Administ ered Medications (unrecognized section and content) Medication Order 04/24/2021 04/25/2021 04/26/2021 enoxaparin (LOVENOX) injection 40 mg 40 mg, SubCUTAneous, DAILY, First dose on Tiara 04/21/21 at 0930 0908 (Given - Provider: Kiel Santos RN) 0957 (Given - Provider: Eliza Townsend, MUKESH) 0842 (Given - Provider: Alondra Tabor RN) levothyroxine (SYNTHROID) tablet 88 mcg 88 mcg, Oral, DAILY, First dose on Sun04/22/21 at 0700, Tube feeding (TF) interaction, obtain physician order to manage, recommend holding TF for 30 minutes before and after dose. 0641 (Given - Provider: Quin Douglas RN) 0557 (Given - Provider: Jeaneth Galeano RN) 0617 (Given - Provider: Jeaneth Galeano RN) pantoprazole (PROTONIX) tablet 40 mg 40 mg, Oral, DAILY BEFORE BREAKFAST, First dose on Sun04/22/21 at 0700, Do not crush or break. 0640 (Given - Provider: Quin Douglas RN) 0557 (Given - Provider: Jeaneth Galeano RN) 0617 (Given - Provider: Jeaneth Galeano RN) potassium chloride (KLOR-CON M) extended release tablet 40 mEq (COMPLETED) 40 mEq, Oral, ONCE, On Sun04/26/21 at 0900, For 1 dose, Do not crush or break. 1303 (Given - Provider: Maki Clements RN) sertraline (ZOLOFT) tablet 50 mg 50 mg, Oral, DAILY, First dose on Sun04/21/21 at 2100 0908 (Given - Provider: Kiel Santos RN) 0957 (Given - Provider: Eliza Townsend RN) 0900 (Due) sodium chloride flush 0.9 % injection 3 mL(Linked Group 1) 3 mL, IntraVENous, EVERY 8 HOURS, First dose on Sun04/21/21 at 0145, Flush line with 3-5 mL 0140 (Not Given - Provider: Quin Douglsa RN - Reason: Other - Comment: ivf infusing)0836 (Not Given - Provider: Kiel Santos RN - Reason: Other)1637 (Not Given - Provider: Kiel Santos RN - Reason: Other) 0201 (Not Given - Provider: Jeaneth Galeano RN - Reason: IV Fluid Infusing)0956 (Given - Provider: Eliza Townsend RN)1644 (Not Given - Provider: Eliza Townsend RN - Reason: IV Fluid Infusing) 0100 (Not Given - Provider: Jeaenth Galeano RN - Reason: IV Fluid Infusing)0951 (Not Given - Provider: Alondra Tabor RN - Reason: IV Fluid Infusing)1745 (Due) sodium chloride flush 0.9 % injection 5-40 mL 5-40 mL, IntraVENous, EVERY 12 HOURS SCHEDULED (2 times per day), First dose on Sun04/21/21 at 0930, For Line Patency: Peripheral IV = 5 mL; Midline or Central Line = 10 mL/lumen. If following IV push medication, administer flush at same rate as the IV push. Flush volume is determined by type of infusion therapy being given. For non-viscous solutions use: Peripheral IV = 5 mL Midline or Central Line = 10 mL/lumen For viscous solutions (i.e. blood components, parenteral nutrition, contrast media, or after obtaining blood sample) use: Peripheral IV = 10 mL Midline or Central Line = 20 mL/lumen 0836 (Not Given - Provider: Kiel Santos RN - Reason: IV Fluid Infusing)1958 (Not Given - Provider: Jeaneth Galeano RN - Reason: IV Fluid Infusing) 0958 (Not Given - Provider: Eliza Townsend RN - Reason: IV Fluid Infusing)2015 (Given - Provider: Jeaneth Galeano RN) 0951 (Not Given - Provider: Alondra Tabor RN - Reason: IV Fluid Infusing)2100 (Due) vitamin D (CHOLECALCIFEROL) tablet 1,000 Units 1,000 Units, Oral, DAILY, First dose on [place] 04/21/21 at 2100 0908 (Given - Provider: Kiel Santos RN) 0957 (Given - Provider: Eliza Townsend, MUKESH) 0842 (Given - Provider: Alondra Tabor, MUKESH) Continuous Medication Order 04/24/2021 04/25/2021 04/26/2021 0.9 % sodium chloride infusion IntraVENous, at 75 mL/hr, CONTINUOUS, Starting on [place] 04/21/21 at 1345 1958 (New Bag - Provider: Jeaneth Galeano RN) 1003 (New Bag - Provider: Eliza Townsend RN)2318 (New Bag - Provider: Jeaneth Galeano, MUKESH) PRN Medication Order 04/24/2021 04/25/2021 04/26/2021 0.9 % sodium chloride infusion 25 mL, IntraVENous, at 100 mL/hr, PRN, If patient receiving piggyback infusions without ordered maintenance IV fluids or with frequent/long duration piggyback infusions, Starting on [place] 04/21/21 at 0926, Administer at the same rate as the piggyback being infused. acetaminophen (TYLENOL) suppository 650 mg(Linked Group 2) 650 mg, Rectal, EVERY 6 HOURS PRN, Pain Mild (1-3), Fever, For temp greater than 100.4 F (38 C), Starting on [place] 04/21/21 at 0926, Administer if oral route cannot be used. acetaminophen (TYLENOL) tablet 650 mg(Linked Group 2) 650 mg, Oral, EVERY 6 HOURS PRN, Pain Mild (1-3), Fever, For temp greater than 100.4 F (38 C), Starting on [place] 04/21/21 at 0926, Maximum dose of acetaminophen is 4000 mg from all sources in 24 hours. HYDROcodone-acetaminophe n (NORCO) 5-325 MG per tablet 1 tablet 1 tablet, Oral, EVERY 6 HOURS PRN, Pain Moderate (4-6), Pain Severe (7-10), Starting on Sun04/22/21 at 1100, Maximum dose of acetaminophen is 4000 mg from all sources in 24 hours. 0241 (Given - Provider: Quin Douglas RN)1305 (Given - Provider: Briseyda Underwood RN)2000 (Given - Provider: Jenaeth Galeano, MUKESH) 0233 (Given - Provider: Jeaneth Galeano, MUKESH)0957 (Given - Provider: Eliza Townsend, MUKESH)1644 (Given - Provider: Eliza Townsend, MUKESH)2318 (Given - Provider: Jeaneth Galeano, MUKESH) 0617 (Given - Provider: Jeaneth Galeano, MUKESH)1157 (Given - Provider: Alondra Tabor RN) loperamide (IMODIUM) capsule 2 mg 2 mg, Oral, 4 TIMES DAILY PRN, Diarrhea, Starting on Sun04/24/21 at 1149, After each loose stool. ondansetron (ZOFRAN) injection 4 mg(Linked Group 3) 4 mg, IntraVENous, EVERY 6 HOURS PRN, Nausea, Vomiting, Starting on [place] 04/21/21 at 0926, Administer if oral route cannot be used. 1305 (Given - Provider: Briseyda Underwood RN) ondansetron (ZOFRAN-ODT) disintegrating tablet 4 mg(Linked Group 3) 4 mg, Oral, EVERY 8 HOURS PRN, Nausea, Vomiting, Starting on [place] 04/21/21 at 0926 1305 (See Alternative - Provider: Briseyda M Underwood, RN) polyethylene glycol (GLYCOLAX) packet 17 g 17 g, Oral, DAILY PRN, Constipation, Starting on Sun04/21/21 at 0926, First line therapy for constipation potassium chloride 10 mEq/100 mL IVPB (Peripheral Line) 10 mEq, IntraVENous, at 100 mL/hr, PRN, Potassium Replacement, Starting on Sun04/22/21 at 1058, K Lab Replacement Action 3.1-3.5 10 mEq IVPB x 4 doses (40 mEq Total) 2.7-3.0 10 mEq IVPB x 6 doses (60 mEq Total) < 2.7 CALL PHYSICIAN and 10 mEq IVPB x 6 doses (60 mEq Total) Infuse at 10 mEq/hr. Repeat Potassium lab 1 hour after final administration. Not for use in patients with CrCl less than 30 mL/min. sodium chloride flush 0.9 % injection 5-40 mL 5-40 mL, IntraVENous, PRN, Line Care, After every IV line use, Starting on Sun04/21/21 at 0926, For Line Patency: Peripheral IV = 5 mL; Midline or Central Line = 10 mL/lumen. If following IV push medication, administer flush at same rate as the IV push. Flush volume is determined by type of infusion therapy being given. For non-viscous solutions use: Peripheral IV = 5 mL Midline or Central Line = 10 mL/lumen For viscous solutions (i.e. blood components, parenteral nutrition, contrast media, or after obtaining blood sample) use: Peripheral IV = 10 mL Midline or Central Line = 20 mL/lumen Linked Groups Order Group 1: Saline lock IV (COMPLETED) Routine, CONTINUOUS, Starting on Sun04/21/21 at 0145, Until Specified And sodium chloride flush 0.9 % injection 3 mLJump to med 3 mL, IntraVENous, EVERY 8 HOURS, First dose on Sun04/21/21 at 0145
Flush line with 3-5 mL
Group 2: acetaminophen (TYLENOL) tablet 650 mgJump to med 650 mg, Oral, EVERY 6 HOURS PRN, Pain Mild (1-3), Fever, For temp greater than 100.4 F (38 C), Starting on Sun04/21/21 at 0926
Maximum dose of acetaminophen is 4000 mg from all sources in 24 hours.
Or acetaminophen (TYLENOL) suppository 650 mgJump to med 650 mg, Rectal, EVERY 6 HOURS PRN, Pain Mild (1-3), Fever, For temp greater than 100.4 F (38 C), Starting on [place] 04/21/21 at 0926
Administer if oral route cannot be used.
Group 3: ondansetron (ZOFRAN-ODT) disintegrating tablet 4 mgJump to med 4 mg, Oral, EVERY 8 HOURS PRN, Nausea, Vomiting, Starting on [place] 04/21/21 at 0926 Or ondansetron (ZOFRAN) injection 4 mgJump to med 4 mg, IntraVENous, EVERY 6 HOURS PRN, Nausea, Vomiting, Starting on [place] 04/21/21 at 0926
Administer if oral route cannot be used.
Scheduled Medication Order 05/08/2021 05/09/2021 05/10/2021 enoxaparin (LOVENOX) injection 40 mg 40 mg, SubCUTAneous, DAILY, First dose on 05/08/21 at 0900 0722 (Given - Provider: Aurora Alcantar RN) 1007 (Given - Provider: Dara Hopson RN) 0830 (Given - Provider: Dara Hopson RN) gabapentin (NEURONTIN) capsule 300 mg 300 mg, Oral, 2 TIMES DAILY, First dose on 05/08/21 at 0230 0212 (Not Given - Provider: Kiesha Herron RN - Reason: Patient took at home)0722 (Given - Provider: Aurora Alcantar RN)210 (Given - Provider: Hanny Alvarez RN) 1007 (Given - Provider: Dara Hopson RN)195 (Given - Provider: Cleo Stewart RN) 0830 (Given - Provider: Dara Hopson RN)2100 (Due) levothyroxine (SYNTHROID) tablet 88 mcg 88 mcg, Oral, DAILY, First dose on 05/08/21 at 0700, Tube feeding (TF) interaction, obtain physician order to manage, recommend holding TF for 30 minutes before and after dose. 0545 (Given - Provider: Kiesha Herron RN) 0609 (Given - Provider: Hanny Alvarez RN) 0830 (Given - Provider: Dara Hopson RN) pantoprazole (PROTONIX) tablet 40 mg 40 mg, Oral, DAILY BEFORE BREAKFAST, First dose on 05/08/21 at 0700, Do not crush or break. 0545 (Given - Provider: Kiesha Herron RN) 0609 (Given - Provider: Hanny Alvarez, MUKESH) 0532 (Given - Provider: Cleo Stewart, MUKESH) sertraline (ZOLOFT) tablet 50 mg 50 mg, Oral, DAILY, First dose on 05/08/21 at 0900 0722 (Given - Provider: Aurora Alcantar RN) 1007 (Given - Provider: Dara Hopson RN) 0830 (Given - Provider: Dara Hopson RN) sodium chloride flush 0.9 % injection 3 mL(Linked Group 1) 3 mL, IntraVENous, EVERY 8 HOURS, First dose on 05/07/21 at 1745, Flush line with 3-5 mL 0109 (Given - Provider: Kiesha Herron RN)0126 (Given - Provider: Kiesha Herron RN)0859 (Given - Provider: Aurora Alcantar RN)1540 (Given - Provider: Mulu Marinelli RN) 0120 (Not Given - Provider: Hanny Alvarez RN - Reason: IV Fluid Infusing)0945 (Due)1937 (Not Given - Provider: Cleo Stewart RN - Reason: Other) 0125 (Not Given - Provider: Cleo Stewart RN - Reason: Other)1221 (Not Given - Provider: Gaston Howell RN - Reason: Other)1745 (Due) sodium chloride flush 0.9 % injection 5-40 mL 5-40 mL, IntraVENous, EVERY 12 HOURS SCHEDULED (2 times per day), First dose on 05/08/21 at 0900, For Line Patency: Peripheral IV = 5 mL; Midline or Central Line = 10 mL/lumen. If following IV push medication, administer flush at same rate as the IV push. Flush volume is determined by type of infusion therapy being given. For non-viscous solutions use: Peripheral IV = 5 mL Midline or Central Line = 10 mL/lumen For viscous solutions (i.e. blood components, parenteral nutrition, contrast media, or after obtaining blood sample) use: Peripheral IV = 10 mL Midline or Central Line = 20 mL/lumen 0859 (Not Given - Provider: Aurora Alcantar RN - Reason: Other - Comment: duplicate order)2108 (Not Given - Provider: Hanny Alvarez RN - Reason: IV Fluid Infusing) 1012 (Given - Provider: Dara Hopson RN)1937 (Not Given - Provider: Cleo Stewart RN - Reason: Other) 0831 (Given - Provider: Dara Hopson RN)2100 (Due) SUMAtriptan (IMITREX) tablet 50 mg (COMPLETED) 50 mg, Oral, ONCE, On 05/09/21 at 1230, For 1 dose 1637 (Given - Provider: Dara Hopson RN) Continuous Medication Order 05/08/2021 05/09/2021 05/10/2021 0.9 % sodium chloride infusion IntraVENous, at 75 mL/hr, CONTINUOUS, Starting on 05/08/21 at 0115 0116 (New Bag - Provider: Kiesha Herron RN)1701 (New Bag - Provider: Mulu Marinelli RN) 1211 (Stopped - Provider: Dara Hopson RN) PRN Medication Order 05/08/2021 05/09/2021 05/10/2021 0.9 % sodium chloride infusion 25 mL, IntraVENous, at 100 mL/hr, PRN, If patient receiving piggyback infusions without ordered maintenance IV fluids or with frequent/long duration piggyback infusions, Starting on 05/08/21 at 0058, Administer at the same rate as the piggyback being infused. acetaminophen (TYLENOL) suppository 650 mg(Linked Group 2) 650 mg, Rectal, EVERY 6 HOURS PRN, Pain Mild (1-3), Fever, For temp greater than 100.4 F (38 C), Starting on 05/08/21 at 0058, Administer if oral route cannot be used. 0100 (See Alternative - Provider: Kiesha Herron RN) acetaminophen (TYLENOL) tablet 650 mg(Linked Group 2) 650 mg, Oral, EVERY 6 HOURS PRN, Pain Mild (1-3), Fever, For temp greater than 100.4 F (38 C), Starting on 05/08/21 at 0058, Maximum dose of acetaminophen is 4000 mg from all sources in 24 hours. 0100 (Given - Provider: Kiesha Herron RN - Comment: pt not due for oxycodone yet -- will receive at 0200) cyclobenzaprine (FLEXERIL) tablet 5 mg 5 mg, Oral, 3 TIMES DAILY PRN, Muscle spasms, Starting on 05/09/21 at 1211 ondansetron (ZOFRAN) injection 4 mg(Linked Group 3) 4 mg, IntraVENous, EVERY 6 HOURS PRN, Nausea, Vomiting, Starting on 05/08/21 at 0058, Administer if oral route cannot be used. ondansetron (ZOFRAN-ODT) disintegrating tablet 4 mg(Linked Group 3) 4 mg, Oral, EVERY 8 HOURS PRN, Nausea, Vomiting, Starting on 05/08/21 at 0058 oxyCODONE (ROXICODONE) immediate release tablet 10 mg(Linked Group 4) 10 mg, Oral, EVERY 4 HOURS PRN, Pain Severe (7-10), Starting on 05/07/21 at 2147 0203 (Given - Provider: Kiesha Herron RN)0722 (Given - Provider: Aurora Alcantar RN)1136 (Given - Provider: Aurora Alcantar, MUKESH)1538 (Given - Provider: Mulu Marinelli RN)2109 (Given - Provider: Hanny Alvarez RN) 0145 (Given - Provider: Hanny Alvarez, MUKESH)0609 (Given - Provider: Hanny Alvarez, MUKESH)1006 (Given - Provider: Dara Hopson RN)1421 (Given - Provider: Dara Hopson RN)1958 (Given - Provider: Cleo Stewart RN) 0032 (Given - Provider: Cleo Stewart, MUKESH)0531 (Given - Provider: Cleo Stewart RN)1105 (Given - Provider: Gaston Howell RN) oxyCODONE (ROXICODONE) immediate release tablet 5 mg(Linked Group 4) 5 mg, Oral, EVERY 4 HOURS PRN, Pain Moderate (4-6), Starting on 05/07/21 at 2147 0203 (See Alternative - Provider: Kiesha Herron RN)0722 (See Alternative - Provider: Aurora Alcantar, RN)1136 (See Alternative - Provider: Aurora Alcantar, RN)1538 (See Alternative - Provider: Mulu Marinelli, RN)2109 (See Alternative - Provider: Hanny Alvarez, RN) 0145 (See Alternative - Provider: Hanny Alvarez, RN)0609 (See Alternative - Provider: Hanny Alvarez, RN)1006 (See Alternative - Provider: Dara Hopson, RN)1421 (See Alternative - Provider: Dara Hopson, RN)1958 (See Alternative - Provider: Cleo Stewart, MUKESH) 0032 (See Alternative - Provider: Cleo Stewart, RN)0531 (See Alternative - Provider: Cleo Stewart, MUKESH)1105 (See Alternative - Provider: Gaston Howell RN) perflutren lipid microspheres (DEFINITY) injection 1.65 mg 1.65 mg (1.5 mL), IntraVENous, IMG ONCE PRN, Other, Suboptimal Echo Image, Starting on 05/08/21 at 0058, For 72 hours, Administer up to 1.65 mg via slow IVP for suboptimal echocardiogram enhancement. May administer as concentrated dose or diluted in 8.5 mL of 0.9% sodium chloride for a total volume of 10 mL. May administer as divided doses to reach optimal image enhancement. polyethylene glycol (GLYCOLAX) packet 17 g 17 g, Oral, DAILY PRN, Constipation, Starting on 05/08/21 at 0058, First line therapy for constipation sodium chloride flush 0.9 % injection 5-40 mL 5-40 mL, IntraVENous, PRN, Line Care, After every IV line use, Starting on 05/08/21 at 0058, For Line Patency: Peripheral IV = 5 mL; Midline or Central Line = 10 mL/lumen. If following IV push medication, administer flush at same rate as the IV push. Flush volume is determined by type of infusion therapy being given. For non-viscous solutions use: Peripheral IV = 5 mL Midline or Central Line = 10 mL/lumen For viscous solutions (i.e. blood components, parenteral nutrition, contrast media, or after obtaining blood sample) use: Peripheral IV = 10 mL Midline or Central Line = 20 mL/lumen sodium chloride flush 0.9 % injection 5-40 mL 5-40 mL, IntraVENous, PRN, Line Care, Per Borough Coordinator Request, Starting on 11/28/21 at 0058, For 72 hours, May use order for Line Care after every IV line use and Agitated Saline Bubble Study. Administration for Bubble Study per trap operator request for only. Remove 1 mL 0.9% sodium chloride from 10 mL syringe for creating agitated saline. If following IV push medication, administer flush at same rate as the IV push. Flush volume is determined by type of infusion therapy being given. , For non-viscous solutions use: Peripheral IV = 5 mL Midline or Central Line = 10 mL/lumen For viscous solutions (i.e. blood components, parenteral nutrition, contrast media, or after obtaining blood sample) use: Peripheral IV = 10 mL Midline or Central Line = 20 mL/lumen Linked Groups Order Group 1: Saline lock IV (COMPLETED) Routine, CONTINUOUS, Starting on 05/07/21 at 1745, Until Specified And sodium chloride flush 0.9 % injection 3 mLJump to med 3 mL, IntraVENous, EVERY 8 HOURS, First dose on 05/07/21 at 1745
Flush line with 3-5 mL
Group 2: acetaminophen (TYLENOL) tablet 650 mgJump to med 650 mg, Oral, EVERY 6 HOURS PRN, Pain Mild (1-3), Fever, For temp greater than 100.4 F (38 C), Starting on 05/08/21 at 0058
Maximum dose of acetaminophen is 4000 mg from all sources in 24 hours.
Or acetaminophen (TYLENOL) suppository 650 mgJump to med 650 mg, Rectal, EVERY 6 HOURS PRN, Pain Mild (1-3), Fever, For temp greater than 100.4 F (38 C), Starting on 05/08/21 at 0058
Administer if oral route cannot be used.
Group 3: ondansetron (ZOFRAN-ODT) disintegrating tablet 4 mgJump to med 4 mg, Oral, EVERY 8 HOURS PRN, Nausea, Vomiting, Starting on 05/08/21 at 0058 Or ondansetron (ZOFRAN) injection 4 mgJump to med 4 mg, IntraVENous, EVERY 6 HOURS PRN, Nausea, Vomiting, Starting on 05/08/21 at 0058
Administer if oral route cannot be used.
Group 4: oxyCODONE (ROXICODONE) immediate release tablet 5 mgJump to med 5 mg, Oral, EVERY 4 HOURS PRN, Pain Moderate (4-6), Starting on 05/07/21 at 2147 Or oxyCODONE (ROXICODONE) immediate release tablet 10 mgJump to med 10 mg, Oral, EVERY 4 HOURS PRN, Pain Severe (7-10), Starting on 05/07/21 at 2147 Scheduled Medication Order 10/08/2021 10/09/2021 10/10/2021 ketorolac (TORADOL) injection 9.9 mg (COMPLETED) Ketorolac is contraindicated in patients with advanced renal impairment and in patients at risk of renal failure due to volume depletion. For 65 years of age and older OR weight less than 50 kg, use 15 mg IV every 6 hours; MAX dose: 60 mg/day. Dose greater than 30 mg must be administered via intramuscular route. Do not administer for more than 5 days., 9.9 mg (rounded from 10 mg), IntraVENous, ONCE, 1 dose, On Sun10/10/21 at 1530 1543 (Given - Provid er: Melody Wood RN) morphine sulfate (PF) injection 4 mg (COMPLETED) 4 mg, IntraVENous, ONCE, 1 dose, On Sun10/10/21 at 1530, If oral and IV narcotics ordered, use oral first and only use IV if oral is ineffective or cannot take oral. Do Not give oral and IV within 1 hour of each other unless specifically ordered. 1536 (Given - Provid er: Melody Wood RN) ondansetron (ZOFRAN) injection 4 mg (COMPLETED) 4 mg, IntraVENous, ONCE, 1 dose, On Sun10/10/21 at 1530 1537 (Given - Provid er: Melody Wood RN) Scheduled Medication Order 07/22/2024 07/23/2024 07/24/2024 enoxaparin (Lovenox) syringe 30 mg 30 mg, SubCUTAneous, Every 24 hours scheduled (Daily), First dose on Sun07/18/24 at 1805, Renal dosing, Indication of Use: Prophylaxis-DVT/PE, Indications: Prophylaxis of Venous Thromboembolism 0802 (Given - Provider: Kavitha Lovett RN) 0820 (Given - Provider: Ayse Junior LPN) 0812 (Given - Provider: Ayse Junior LPN) famotidine (Pepcid) tablet 20 mg 20 mg, Oral, Daily, First dose on Sun07/18/24 at 1800 0802 (Given - Provider: Kavitha Lovett RN) 0820 (Given - Provider: Ayse Junior LPN) 08 (Given - Provider: Ayse Junior LPN) gabapentin (Neurontin) capsule 300 mg 300 mg, Oral, 2 times daily, First dose on Sun07/18/24 at 2100 0802 (Given - Provider: Kavitha Lovett RN)2009 (Given - Provider: Salena Miller RN) 819 (Given - Provider: Ayse Junior LPN)2047 (Given - Provider: Deborah Balbuena RN) 08 (Given - Provider: Ayse Junior LPN) levothyroxine (Synthroid, Levoxyl) tablet 88 mcg 88 mcg, Oral, Every 24 hours, First dose on Sun07/18/24 at 1800, Tube feeding (TF) interaction, obtain physician order to manage, recommend holding TF for 30 minutes before and after dose. 1750 (Given - Provider: Kavitha Lovett RN) 1705 (Given - Provider: Ayse Junior LPN) potassium chloride (Klor-Con) packet 40 mEq (COMPLETED) 40 mEq, Oral, Once, On Sun07/22/24 at 0930, For 1 dose, Dissolve each packet in 4 ounces of water = 5 mEq per 1 oz fluid. 1015 (Given - Provider: Kavitha Lovett RN) potassium chloride (Klor-Con) packet 40 mEq (COMPLETED) 40 mEq, Oral, Once, On Sun07/23/24 at 0015, For 1 dose, Dissolve each packet in 4 ounces of water = 5 mEq per 1 oz fluid., Indications: Hypokalemia 0033 (Given - Provider: Salena Miller, MUKESH) potassium chloride (Klor-Con) packet 40 mEq (COMPLETED) 40 mEq, Oral, 2 times daily with meals, First dose (after last reorder) on Sun07/23/24 at 0800, For 2 doses, Dissolve each packet in 4 ounces of water = 5 mEq per 1 oz fluid. 0820 (Given - Provider: Ayse Junior LPN)1705 (Given - Provider: Ayse Junior LPN) potassium chloride (Klor-Con) packet 40 mEq 40 mEq, Oral, 2 times daily with meals, First dose (after last reorder) on [place] 07/24/24 at 0900, For 2 doses, Dissolve each packet in 4 ounces of water = 5 mEq per 1 oz fluid. 0917 (Given - Provider: Ayse Junior LPN) sertraline (Zoloft) tablet 200 mg 200 mg, Oral, Daily, First dose on Sun07/18/24 at 1800 0802 (Given - Provider: Kavitha Lovett RN) 0820 (Given - Provider: Ayse Junior LPN) 0812 (Given - Provider: Ayse Junior LPN) sodium chloride 0.9% (NS) flush 10 mL 10 mL, IntraVENous, Every 12 hours scheduled (2 times per day), First dose on Sun07/18/24 at 2100 0803 (Given - Provider: Kavitha Lovett RN)2009 (Not Given - Provider: Salena Miller RN - Reason: IV Fluids Infusing) 0900 (Not Given - Provider: Ayse Junior LPN - Reason: Loss of IV access)2100 (Not Given - Provider: Deborah Balbuena RN - Reason: Loss of IV access) 0900 (Not Given - Provider: Ayse Junior LPN - Reason: Loss of IV access) vancomycin (VANCOCIN) oral solution 125 mg 125 mg, Oral, Every 6 hours scheduled (4 times per day), First dose on Sun07/20/24 at 1630, For 10 days, Suspected Indication (Select all that apply): Infectious Diarrhea 0000 (Given - Provider: Salena Miller RN - Comment: no bar code on med sent from pharmacy)0652 (Given - Provider: Salena Miller RN)1226 (Given - Provider: Kavitha Lovett RN)1750 (Given - Provider: Kavitha Lovett RN) 0034 (Given - Provider: Salena Miller RN)0616 (Given - Provider: Salena Miller RN)1226 (Given - Provider: Ayse Junior LPN)1705 (Given - Provider: Ayse Junior LPN) 0023 (Given - Provider: Deborah Balbuena RN)0525 (Given - Provider: Deborah Balbuena RN)1157 (Given - Provider: Ayse Junior LPN) Continuous Medication Order 07/22/2024 07/23/2024 07/24/2024 sodium chloride 0.9 % infusion (CANCELED) 75 mL/hr, IntraVENous, Continuous, Starting on Sun07/18/24 at 1805, Maintenance IV fluid order, if a bolus IV fluid order is present, begin this order after the bolus is complete. 0036 (New Bag - Provider: Salena Miller RN)0736 (New Bag - Provider: Kavitha Lovett RN)1227 (New Bag - Provider: Kavitha Lovett RN)1753 (New Bag - Provider: Kavitha Lovett RN)2158 (New Bag - Provider: Salena Miller RN) 2045 (Stopped - Provider: Deborah Balbuena RN) PRN Medication Order 07/22/2024 07/23/2024 07/24/2024 acetaminophen (Tylenol) suppository 650 mg(Linked Group 1) 650 mg, Rectal, Every 6 hours PRN, mild pain (1-3), fever, For temp greater than 100.4 F (38 C), Starting on Sun07/18/24 at 1759, Administer if oral route cannot be used. Maximum dose of acetaminophen is 4000 mg from all sources in 24 hours. acetaminophen (Tylenol) tablet 650 mg(Linked Group 1) 650 mg, Oral, Every 6 hours PRN, mild pain (1-3), fever, For temp greater than 100.4 F (38 C), Starting on Sun07/18/24 at 1759, Maximum dose of acetaminophen is 4000 mg from all sources in 24 hours. HYDROcodone-acetaminophen ([place]) 5-325 MG per tablet 2 tablet 2 tablet, Oral, Every 6 hours PRN, severe pain (7-10), moderate pain (4-6), Starting on Sun07/18/24 at 1820, Maximum dose of acetaminophen is 4000 mg from all sources in 24 hours. 0256 (Given - Provider: Salena Miller RN)1015 (Given - Provider: Kavitha Lovett RN)1750 (Given - Provider: Kavitha Lovett RN) 0033 (Given - Provider: Salena Miller RN)0632 (Given - Provider: Salena Miller RN)1421 (Given - Provider: Ayse Junior LPN)2048 (Given - Provider: Deborah Balbuena RN) 0811 (Given - Provider: Ayse Junior LPN) hydrOXYzine HCl (Atarax) tablet 10 mg 10 mg, Oral, Every 6 hours PRN, anxiety, Starting on Sun07/18/24 at 1758 melatonin tablet 3 mg 3 mg, Oral, Nightly PRN, sleep, Starting on Sun07/22/24 at 0104 0108 (Given - Provider: Salena Miller RN) 0033 (Given - Provider: Salena Miller RN)2048 (Given - Provider: Deborah Balbuena RN) methocarbamol (Robaxin) tablet 500 mg 500 mg, Oral, Every 8 hours PRN, muscle spasms, Starting on Sun07/21/24 at 1551 0053 (Given - Provider: Salena Miller RN)1015 (Given - Provider: Kavitha Lovett RN)1750 (Given - Provider: Kavitha Lovett RN) naloxone (Narcan) injection 0.4 mg 0.4 mg, IntraVENous, Every 5 min PRN, opioid reversal, respiratory depression, Starting on Sun07/18/24 at 1822, +++ For RR <10, pinpoint pupils, over sedation for opioid reversal - MUST notify ignition specialist provider immediately after first dose, may give IM or SQ if no IV access +++ ondansetron (Zofran) injection 4 mg(Linked Group 2) 4 mg, IntraVENous, Every 6 hours PRN, nausea, vomiting, Starting on Sun07/18/24 at 1759, 1st Line. Give IV if patient is unable to take orally. If inadequate response within 60 minutes, proceed to next-line agent or contact provider if no further options ordered. ondansetron ODT (Zofran-ODT) disintegrating tablet 4 mg(Linked Group 2) 4 mg, Oral, Every 8 hours PRN, nausea, vomiting, Starting on Sun07/18/24 at 1759, 1st Line. If inadequate response within 60 minutes, proceed to next-line agent or contact provider if no further options ordered. Patient should allow tablet to dissolve on tongue. Do not remove from blister pack until just before administering. polyethylene glycol (PEG) 3350 (Miralax) packet 17 g 17 g, Oral, Daily PRN, constipation, Starting on Sun07/18/24 at 175, 1st line for treatment of constipation - give scheduled if no bowel movement in past 24 hours. sodium chloride 0.9 % infusion 5-250 mL/hr, IntraVENous, PRN, if patient receiving piggyback infusions and maintenance fluids are not ordered OR KVO fluids to protect IV site / prevent frequent line interruptions/ long duration, Starting on Sun07/18/24 at 1759, For piggyback infusion, administer at same rate as piggyback for a total of 25 mL. Enter 25 mL into dose field and piggyback rate into rate field of order. If piggyback is infusing at a rate less than 100 mL/hr, enter 25 mL into dose field and 100 mL/hr into rate field of order. For KVO fluids, enter rate of 20 mL/hr or less into rate field of order. sodium chloride 0.9% (NS) flush 10 mL 10 mL, IntraVENous, PRN, line care, Starting on Sun07/18/24 at 1759, After every IV line use SUMAtriptan (Imitrex) tablet 100 mg 100 mg, Oral, Once PRN, migraine, Starting on Sun07/18/24 at 1758, May repeat dose once in 2 hours if no relief. Do not exceed 2 doses in 24 hours. Linked Groups Order Group 1: acetaminophen (Tylenol) tablet 650 mgJump to med 650 mg, Oral, Every 6 hours PRN, mild pain (1-3), fever, For temp greater than 100.4 F (38 C), Starting on Sun07/18/24 at 1759, Maximum dose of acetaminophen is 4000 mg from all sources in 24 hours. Or acetaminophen (Tylenol) suppository 650 mgJump to med 650 mg, Rectal, Every 6 hours PRN, mild pain (1-3), fever, For temp greater than 100.4 F (38 C), Starting on Sun07/18/24 at 1759, Administer if oral route cannot be used. Maximum dose of acetaminophen is 4000 mg from all sources in 24 hours. Group 2: ondansetron ODT (Zofran-ODT) disintegrating tablet 4 mgJump to med 4 mg, Oral, Every 8 hours PRN, nausea, vomiting, Starting on Sun07/18/24 at 1759, 1st Line. If inadequate response within 60 minutes, proceed to next-line agent or contact provider if no further options ordered. Patient should allow tablet to dissolve on tongue. Do not remove from blister pack until just before administering. Or ondansetron (Zofran) injection 4 mgJump to med 4 mg, IntraVENous, Every 6 hours PRN, nausea, vomiting, Starting on Sun07/18/24 at 1759, 1st Line. Give IV if patient is unable to take orally. If inadequate response within 60 minutes, proceed to next-line agent or contact provider if no further options ordered. Scheduled Medication Order 11/16/2024 11/17/2024 11/18/2024 fidaxomicin (Dificid) tablet 200 mg (COMPLETED) 200 mg, Oral, 2 times daily, First dose on 11/07/24 at 2130, For 10 days, Suspected Indication (Select all that apply): Intra-Abdominal Infection 0902 (Given - Provider: Alisson Murillo RN)2137 (Given - Provider: Keren Jenkins, MUKESH) 0941 (Given - Provider: Mika Gunter, MUKESH) furosemide (Lasix) injection 20 mg 20 mg, IntraVENous, 2 times daily, First dose on 11/08/24 at 2145, On hold since 11/09/2024 at 1009 until manually unheld 0900 (Dose Auto Held - Provider: Zoltan Lauren DO)2100 (Dose Auto Held - Provider: Zoltan Lauren DO) 0900 (Dose Auto Held)2100 (Dose Auto Held) 0900 (Dose Auto Held)1430 (Unheld by provider - Provider: Automatic Discharge Provider) gabapentin (Neurontin) capsule 300 mg 300 mg, Oral, 2 times daily, First dose on Sun11/07/24 at 2200, hold for lethargy, confusion 0902 (Given - Provider: Alisson Murillo RN)213 (Given - Provider: Keren Jenkins, RN) 0941 (Given - Provider: Mika Gunter, RN)2016 (Given - Provider: Brit Cedeno, RN) 09 (Given - Provider: Matteo Klein, MUKESH) levothyroxine (Synthroid, Levoxyl) tablet 88 mcg 88 mcg, Oral, Every 24 hours, First dose on 11/08/24 at 0600, Tube feeding (TF) interaction, obtain physician order to manage, recommend holding TF for 30 minutes before and after dose. 0524 (Given - Provider: Cheri Simon RN) 0624 (Given - Provider: Keren Jenkins, RN) 0426 (Given - Provider: Brit Cedeno, MUKESH) sertraline (Zoloft) tablet 200 mg 200 mg, Oral, Daily, First dose on 11/08/24 at 0800 0902 (Given - Provider: Alisson Murillo RN) 0942 (Given - Provider: Mika Gunter, MUKESH) 09 (Given - Provider: Matteo Klein, MUKESH) sodium chloride 0.9% (NS) flush 10 mL 10 mL, IntraVENous, Every 12 hours scheduled (2 times per day), First dose on Sun11/07/24 at 2130 0903 (Given - Provider: Alisson Murillo RN)213 (Given - Provider: Keren Jenkins RN) 0942 (Given - Provider: Mika Gunter, MUKESH)2016 (Given - Provider: Brit Cedeno, RN) 1011 (Given - Provider: Matteo Klein, MUKESH) PRN Medication Order 11/16/2024 11/17/2024 11/18/2024 acetaminophen (Tylenol) suppository 650 mg(Linked Group 1) 650 mg, Rectal, Every 6 hours PRN, mild pain (1-3), fever, For temp greater than 100.4 F (38 C), Starting on Sun11/07/24 at 2120, Administer if oral route cannot be used. Maximum dose of acetaminophen is 4000 mg from all sources in 24 hours. acetaminophen (Tylenol) tablet 650 mg(Linked Group 1) 650 mg, Oral, Every 6 hours PRN, mild pain (1-3), fever, For temp greater than 100.4 F (38 C), Starting on Sun11/07/24 at 2120, Maximum dose of acetaminophen is 4000 mg from all sources in 24 hours. albuterol (2.5 MG/3ML) 0.083% nebulizer solution 2.5 mg 2.5 mg, Nebulization, Every 2 hour PRN, wheezing, Starting on Sun11/07/24 at 2229, Initiate RT Bronchodilator Protocol: HYDROcodone-acetaminophe n ([place]) 5-325 MG per tablet 1 tablet(Linked Group 2) 1 tablet, Oral, Every 4 hours PRN, moderate pain (4-6), Starting on Sun11/07/24 at 2154, Maximum dose of acetaminophen is 4000 mg from all sources in 24 hours. 0902 (See Alternative - Provider: Alisson Murillo RN)1646 (See Alternative - Provider: Alisson Murillo RN)2137 (See Alternative - Provider: Keren Jenkins RN) 0335 (See Alternative - Provider: Keren Jenkins RN)0941 (Given - Provider: Mika Gunter RN)1353 (See Alternative - Provider: Mika Gunter RN)2156 (See Alternative - Provider: Brit Cedeno RN) 0426 (See Alternative - Provider: Brit Cedeno RN)0929 (See Alternative - Provider: Matteo Klein RN) HYDROcodone-acetaminophe n ([place]) 5-325 MG per tablet 2 tablet(Linked Group 2) 2 tablet, Oral, Every 4 hours PRN, severe pain (7-10), Starting on Sun11/07/24 at 2154, Maximum dose of acetaminophen is 4000 mg from all sources in 24 hours. 0902 (Given - Provider: Alisson Murillo RN)1646 (Given - Provider: Alisson Murillo RN)2137 (Given - Provider: Keren Jenkins RN) 0335 (Given - Provider: Keren Jenkins, RN)0941 (See Alternative - Provider: Mika Gunter RN)1353 (Given - Provider: Mika Gunter, RN)2156 (Given - Provider: Brit Cedeno, RN) 0426 (Given - Provider: Brit Cedeno RN)0929 (Given - Provider: Matteo Klein RN) hydrOXYzine HCl (Atarax) tablet 10 mg 10 mg, Oral, Every 6 hours PRN, anxiety, Starting on Sun11/07/24 at 2153 naloxone (Narcan) injection 0.4 mg 0.4 mg, IntraVENous, Every 5 min PRN, opioid reversal, respiratory depression, Starting on Sun11/07/24 at 2157, +++ For RR <10, pinpoint pupils, over sedation for opioid reversal - MUST notify ignition specialist provider immediately after first dose, may give IM or SQ if no IV access +++ ondansetron (Zofran) injection 4 mg(Linked Group 3) 4 mg, IntraVENous, Every 6 hours PRN, nausea, vomiting, Starting on Sun11/07/24 at 2120, 1st Line. Give IV if patient is unable to take orally. If inadequate response within 60 minutes, proceed to next-line agent or contact provider if no further options ordered. ondansetron ODT (Zofran-ODT) disintegrating tablet 4 mg(Linked Group 3) 4 mg, Oral, Every 8 hours PRN, nausea, vomiting, Starting on Sun11/07/24 at 2120, 1st Line. If inadequate response within 60 minutes, proceed to next-line agent or contact provider if no further options ordered. Patient should allow tablet to dissolve on tongue. Do not remove from blister pack until just before administering. sodium chloride 0.9 % infusion 5-250 mL/hr, IntraVENous, PRN, if patient receiving piggyback infusions and maintenance fluids are not ordered OR KVO fluids to protect IV site / prevent frequent line interruptions/ long duration, Starting on Sun11/07/24 at 2120, For piggyback infusion, administer at same rate as piggyback for a total of 25 mL. Enter 25 mL into dose field and piggyback rate into rate field of order. If piggyback is infusing at a rate less than 100 mL/hr, enter 25 mL into dose field and 100 mL/hr into rate field of order. For KVO fluids, enter rate of 20 mL/hr or less into rate field of order. sodium chloride 0.9% (NS) flush 10 mL 10 mL, IntraVENous, PRN, line care, Starting on Sun11/07/24 at 0, After every IV line use Linked Groups Order Group 1: acetaminophen (Tylenol) tablet 650 mgJump to med 650 mg, Oral, Every 6 hours PRN, mild pain (1-3), fever, For temp greater than 100.4 F (38 C), Starting on Sun11/07/24 at 0, Maximum dose of acetaminophen is 4000 mg from all sources in 24 hours. Or acetaminophen (Tylenol) suppository 650 mgJump to med 650 mg, Rectal, Every 6 hours PRN, mild pain (1-3), fever, For temp greater than 100.4 F (38 C), Starting on Sun11/07/24 at 0, Administer if oral route cannot be used. Maximum dose of acetaminophen is 4000 mg from all sources in 24 hours. Group 2: HYDROcodone-acetaminophen ([place]) 5-325 MG per tablet 1 tabletJump to med 1 tablet, Oral, Every 4 hours PRN, moderate pain (4-6), Starting on Sun11/07/24 at 2154, Maximum dose of acetaminophen is 4000 mg from all sources in 24 hours. Or HYDROcodone-acetaminophen ([place]) 5-325 MG per tablet 2 tabletJump to med 2 tablet, Oral, Every 4 hours PRN, severe pain (7-10), Starting on Sun11/07/24 at 2154, Maximum dose of acetaminophen is 4000 mg from all sources in 24 hours. Group 3: ondansetron ODT (Zofran-ODT) disintegrating tablet 4 mgJump to med 4 mg, Oral, Every 8 hours PRN, nausea, vomiting, Starting on Sun11/07/24 at 0, 1st Line. If inadequate response within 60 minutes, proceed to next-line agent or contact provider if no further options ordered. Patient should allow tablet to dissolve on tongue. Do not remove from blister pack until just before administering. Or ondansetron (Zofran) injection 4 mgJump to med 4 mg, IntraVENous, Every 6 hours PRN, nausea, vomiting, Starting on Sun11/07/24 at 2120, 1st Line. Give IV if patient is unable to take orally. If inadequate response within 60 minutes, proceed to next-line agent or contact provider if no further options ordered. Care Teams (unrecognized sec tion and content) Team Status: Active Member Role Status Dates Out of [facility] Doctor Primary Care Provider Active Team Status: Inactive Member Role Status Dates Dr. Dorian Ballard MD Emergency Provider Active Sta rt: November 30, 2024 End: December 01, 2024 Out [facility] Doctor Primary Care Provider Active Start: November 30, 2024 End: December 01, 2024 Dr. Iván Larkin DO Admit Provider Active Star t: November 30, 2024 End: December 01, 2024 Dr. Iván Larkin DO Attending Provider Active Start: November 30, 2024 End: December 01, 2024 Team Status: Active Member Role Status Dates Dr. Dorian Ballard MD Emergency Provider Active Sta rt: November 30, 2024 Out [facility] Primary Care Provider Active Start: November 30, 2024 Dr. Iván Larkin DO Admit Provider Active Star t: November 30, 2024 Dr. Iván Larkin DO Attending Provider Active Start: November 30, 2024 Dr. Iván Larkin DO Other Provider Active Star t: November 30, 2024 Team Status: Active Member Role Status Dates Dr. Dorian Ballard MD Emergency Provider Active Sta rt: December 01, 2024 Out [facility] Doctor Primary Care Provider Active Start: December 01, 2024 Dr. Iván Larkin DO Admit Provider Active Star t: December 01, 2024 Dr. Iván Larkin DO Attending Provider Active Start: December 01, 2024 Dr. Iván Larkin DO Other Provider Active Star t: December 01, 2024 Machine Repairer Relationship Specialty Start Date End Date Leonardo Lyles APRN - [employer] [address] [place] [address] PCP - General Nurse Practitioner 08/23/20 Machine Repairer Relationship Specialty Start Date End Date Leonardo Lyles APRN - [employer] [address] [place] [address] PCP - General Nurse Practitioner 08/23/20 Machine Repairer Relationship Specialty Start Date End Date Leonardo Lyles, [employer] [address] [place] [address] PCP - General Family Practice 02/02/20 Machine Repairer Relationship Specialty Start Date End Date Leonardo Lyles, [employer] [address] [place] [address] PCP - General Family Practice 02/02/20 Machine Repairer Relationship Specialty Start Date End Date Leonardo Lyles, [employer] - [employer] [address] [place] [address] PCP - General Nurse Practitioner 08/23/20 Machine Repairer Relationship Specialty Start Date End Date Leonardo Lyles, [employer] [address] [place] [address] PCP - General Family Practice 02/02/20 Machine Repairer Relationship Specialty Start Date End Date Leonardo Lyles, [employer] [address] [place] [address] PCP - General Family Practice 02/02/20 Machine Repairer Relationship Specialty Start Date End Date Leonardo Lyles, [employer] [address] [place] [address] PCP - General Family Practice 02/02/20 Machine Repairer Relationship Specialty Start Date End Date Leonardo Lyles, [employer] [address] [place] [address] PCP - General Family Practice 02/02/20 Machine Repairer Relationship Specialty Start Date End Date Leonardo Lyles, [employer] [address] [place] [address] PCP - General Family Medicine 02/02/20 Machine Repairer Relationship Specialty Start Date End Date Leonardo Lyles, [employer] [address] [place] [place] [address] PCP - General Family Medicine 02/02/20 Machine Repairer Relationship Specialty Start Date End Date Leonardo Lyles, [employer] [address] [place] [address] PCP - General Family Medicine 02/02/20 Machine Repairer Relationship Specialty Start Date End Date Leonardo Lyles, [employer] [address] [place] [place] [address] PCP - General Family Medicine 02/02/20 Machine Repairer Relationship Specialty Start Date End Date Leonardo Lyles, [employer] [address] [place] [address] PCP - General Family Medicine 02/02/20 Machine Repairer Relationship Specialty Start Date End Date Leonardo Lyles, [employer] [address] [place] [place] [address] PCP - General Family Medicine 02/02/20 Machine Repairer Relationship Specialty Start Date End Date Leonardo Lyles, [employer] [address] [place] [address] PCP - General Family Medicine 02/02/20 Machine Repairer Relationship Specialty Start Date End Date Leonardo Lyles, [employer] [address] [place] [place] [address] PCP - General Family Medicine 02/02/20 Machine Repairer Relationship Specialty Start Date End Date Leonardo Lyles, [employer] [address] [place] [address] PCP - General Family Medicine 02/02/20 Machine Repairer Relationship Specialty Start Date End Date Leonardo Lyles, [employer] [address] [place] [address] PCP - General Family Medicine 02/02/20 Machine Repairer Relationship Specialty Start Date End Date Leonardo Lyles, [employer] [address] [place] [address] PCP - General Family Medicine 02/02/20 Machine Repairer Relationship Specialty Start Date End Date Leonardo Lyles, [employer] [address] [place] [id number] PCP - General Family Medicine 02/02/20 Machine Repairer Relationship Specialty Start Date End Date Leonardo Lyles, [employer] [address] [place] [address] PCP - General Family Medicine 02/02/20 Machine Repairer Relationship Specialty Start Date End Date Leonardo Lyles, [employer] [address] [place] [id number] PCP - General Family Medicine 02/02/20 Machine Repairer Relationship Specialty Start Date End Date Leonardo Lyles, [employer] [address] [place] [address] PCP - General Family Medicine 02/02/20 Machine Repairer Relationship Specialty Start Date End Date Leonardo Lyles, [employer] [address] [place] [address] PCP - General Family Medicine 02/02/20 Machine Repairer Relationship Specialty Start Date End Date Leonardo Lyles, [employer] [address] [place] [address] PCP - General Family Medicine 02/02/20 Machine Repairer Relationship Specialty Start Date End Date Farage, Leonardo P, [employer] [address] [place] [address] PCP - General Family Medicine 02/02/20 Machine Repairer Relationship Specialty Start Date End Date Farage, Leonardo P, [employer] [address] [place] [address] PCP - General Family Medicine 02/02/20 Machine Repairer Relationship Specialty Start Date End Date Farage, Leonardo P, [employer] [address] [place] [address] PCP - General Family Medicine 02/02/20 Machine Repairer Relationship Specialty Start Date End Date Farage, Leonardo P, [employer] [address] [place] [address] PCP - General Family Medicine 02/02/20 Machine Repairer Relationship Specialty Start Date End Date Farage, Leonardo P, [employer] [address] [place] [address] PCP - General Family Medicine 02/02/20 Machine Repairer Relationship Specialty Start Date End Date Farage, Leonardo P, [employer] [address] [place] [address] PCP - General Family Medicine 02/02/20 Machine Repairer Relationship Specialty Start Date End Date Farage, Leonardo P, [employer] [address] [place] [address] PCP - General Family Medicine 02/02/20 Machine Repairer Relationship Specialty Start Date End Date Farage, Leonardo P, [employer] [address] [place] [address] PCP - General Family Medicine 02/02/20 Machine Repairer Relationship Specialty Start Date End Date Farage, Leonardo P, [employer] [address] [place] [address] PCP - General Family Medicine 02/02/20 Machine Repairer Relationship Specialty Start Date End Date Farage, Leonardo P, [employer] [address] [place] [address] PCP - General Family Medicine 02/02/20 Machine Repairer Relationship Specialty Start Date End Date Farage, Leonardo P, [employer] [address] [place] [address] PCP - General Family Medicine 02/02/20 Machine Repairer Relationship Specialty Start Date End Date Farage, Leonardo P, [employer] [address] [place] [address] PCP - General Family Medicine 02/02/20 Machine Repairer Relationship Specialty Start Date End Date Farage, Leonardo P, [employer] [address] [place] [address] PCP - General Family Medicine 02/02/20 Machine Repairer Relationship Specialty Start Date End Date Farage, Leonardo P, [employer] [address] [place] [address] PCP - General Family Medicine 02/02/20 Machine Repairer Relationship Specialty Start Date End Date Leonardo Lyles APRN.[employer] [address] [place] [address] PCP - General Family Medicine 02/02/20 Machine Repairer Relationship Specialty Start Date End Date Leonardo Lyles [address] [place] [address] PCP - General 08/23/20 Machine Repairer Relationship Specialty Start Date End Date Leonardo Lyles [address] [place] [address] PCP - General 08/23/20 Machine Repairer Relationship Specialty Start Date End Date Leonardo Lyles [address] [place], [place] [id number] PCP - General 08/23/20 Machine Repairer Relationship Specialty Start Date End Date Leonardo Lyles [address] [place], [place] [address] PCP - General 08/23/20 Machine Repairer Relationship Specialty Start Date End Date Leonardo Lyles [address] [place], [place] [id number] PCP - General 08/23/20 Machine Repairer Relationship Specialty Start Date End Date Leonardo Lyles, JESSICA.[employer] [address] [place], [place] [address] PCP - General Family Medicine 02/02/20 Machine Repairer Relationship Specialty Start Date End Date Farage, Leonardo P, [employer] [address] [place], [place] [address] PCP - General Family Medicine 02/02/20 Machine Repairer Relationship Specialty Start Date End Date Farage, Leonardo P, [employer] [address] [place] [address] PCP - General Family Medicine 02/02/20 Machine Repairer Relationship Specialty Start Date End Date Farage, Leonardo P, [employer] [address] [place] [address] PCP - General Family Medicine 02/02/20 Machine Repairer Relationship Specialty Start Date End Date Farage, Leonardo P, [employer] [address] [place] [address] PCP - General Family Medicine 02/02/20 Machine Repairer Relationship Specialty Start Date End Date Farage, Leonardo P, [employer] [address] [place] [address] PCP - General Family Medicine 02/02/20 Machine Repairer Relationship Specialty Start Date End Date Farage, Leonardo P, [employer] [address] [place] [address] PCP - General Family Medicine 02/02/20 Machine Repairer Relationship Specialty Start Date End Date Farage, Leonardo P, [employer] [address] [place] [address] PCP - General Family Medicine 02/02/20 Machine Repairer Relationship Specialty Start Date End Date Leonardo Lyles, [employer] [address] [place], [place] [address] PCP - General Family Medicine 02/02/20 Machine Repairer Relationship Specialty Start Date End Date Leonardo Lyles, [employer] [address] [place], [place] [address] PCP - General Family Medicine 02/02/20 Machine Repairer Relationship Specialty Start Date End Date Leonardo Lyles, [employer] [address] [place] [address] PCP - General Family Medicine 02/02/20 Machine Repairer Relationship Specialty Start Date End Date Leonardo Lyles [address] [place] [address] PCP - General Nurse Practitioner 11/07/24 Cali Morrison MD [address] [place] [address] [phone] Orthopedic Surgery 11/07/24 Machine Repairer Relationship Specialty Start Date End Date Leonardo Lyles, [employer] [address] [place] [address] PCP - General Family Medicine 02/02/20 Mercedes Tovar, RN Primary Care Feed Grinder 11/19/24 Machine Repairer Relationship Specialty Start Date End Date Leonardo Lyles, [employer] [address] [place], [place] [address] PCP - General Family Medicine 02/02/20 Mercedes Tovar RN Primary Care Feed Grinder 11/19/24 Team Status: Active Member Role Status Dates Dr. Dorian Ballard MD Emergency Provider Active Sta rt: November 30, 2024 Out of Town Doctor Primary Care Provider Active Start: November 30, 2024 Dr. Iván Larkin DO Admit Provider Active Star t: November 30, 2024 Dr. Iván Larkin , DO Attending Provider Active Start: November 30, 2024 Machine Repairer Relationship Specialty Start Date End Date Leonardo Lyles, [employer] [address] [place] [address] PCP - General Family Medicine 02/02/20 Mercedes Tovar RN Primary Care Feed Grinder 11/19/24 Source Comments (unrecognize d section and content) In the event this informatio n is protected by the Federal Confidentiality of Alcohol and Drug Abuse Patient Records regulations: The Federal rules restrict any use of the information to criminally investigate or prosecute any alcohol or drug abuse patient.[facility] CenterIn the event this information is protected by the Federal Confidentiality of Alcohol and Drug Abuse Patient Records regulations: The Federal rules restrict any use of the information to criminally investigate or prosecute any alcohol or drug abuse patient.[facility] CenterIn the event this information is protected by the Federal Confidentiality of Alcohol and Drug Abuse Patient Records regulations: The Federal rules restrict any use of the information to criminally investigate or prosecute any alcohol or drug abuse patient.[facility] CenterIn the event this information is protected by the Federal Confidentiality of Alcohol and Drug Abuse Patient Records regulations: The Federal rules restrict any use of the information to criminally investigate or prosecute any alcohol or drug abuse patient.[facility] CenterIn the event this information is protected by the Federal Confidentiality of Alcohol and Drug Abuse Patient Records regulations: The Federal rules restrict any use of the information to criminally investigate or prosecute any alcohol or drug abuse patient.[facility] CenterIn the event this information is protected by the Federal Confidentiality of Alcohol and Drug Abuse Patient Records regulations: The Federal rules restrict any use of the information to criminally investigate or prosecute any alcohol or drug abuse patient.[facility] CenterIn the event this information is protected by the Federal Confidentiality of Alcohol and Drug Abuse Patient Records regulations: The Federal rules restrict any use of the information to criminally investigate or prosecute any alcohol or drug abuse patient.[facility] CenterIn the event this information is protected by the Federal Confidentiality of Alcohol and Drug Abuse Patient Records regulations: The Federal rules restrict any use of the information to criminally investigate or prosecute any alcohol or drug abuse patient.[facility] CenterIn the event this information is protected by the Federal Confidentiality of Alcohol and Drug Abuse Patient Records regulations: The Federal rules restrict any use of the information to criminally investigate or prosecute any alcohol or drug abuse patient.[facility] CenterIn the event this information is protected by the Federal Confidentiality of Alcohol and Drug Abuse Patient Records regulations: The Federal rules restrict any use of the information to criminally investigate or prosecute any alcohol or drug abuse patient.[facility] CenterIn the event this information is protected by the Federal Confidentiality of Alcohol and Drug Abuse Patient Records regulations: The Federal rules restrict any use of the information to criminally investigate or prosecute any alcohol or drug abuse patient.[facility] CenterIn the event this information is protected by the Federal Confidentiality of Alcohol and Drug Abuse Patient Records regulations: The Federal rules restrict any use of the information to criminally investigate or prosecute any alcohol or drug abuse patient.[facility] CenterIn the event this information is protected by the Federal Confidentiality of Alcohol and Drug Abuse Patient Records regulations: The Federal rules restrict any use of the information to criminally investigate or prosecute any alcohol or drug abuse patient.[facility] CenterIn the event this information is protected by the Federal Confidentiality of Alcohol and Drug Abuse Patient Records regulations: The Federal rules restrict any use of the information to criminally investigate or prosecute any alcohol or drug abuse patient.[facility] CenterIn the event this information is protected by the Federal Confidentiality of Alcohol and Drug Abuse Patient Records regulations: The Federal rules restrict any use of the information to criminally investigate or prosecute any alcohol or drug abuse patient.[facility] CenterIn the event this information is protected by the Federal Confidentiality of Alcohol and Drug Abuse Patient Records regulations: The Federal rules restrict any use of the information to criminally investigate or prosecute any alcohol or drug abuse patient.[facility] CenterIn the event this information is protected by the Federal Confidentiality of Alcohol and Drug Abuse Patient Records regulations: The Federal rules restrict any use of the information to criminally investigate or prosecute any alcohol or drug abuse patient.[facility] CenterIn the event this information is protected by the Federal Confidentiality of Alcohol and Drug Abuse Patient Records regulations: The Federal rules restrict any use of the information to criminally investigate or prosecute any alcohol or drug abuse patient.[facility] CenterIn the event this information is protected by the Federal Confidentiality of Alcohol and Drug Abuse Patient Records regulations: The Federal rules restrict any use of the information to criminally investigate or prosecute any alcohol or drug abuse patient.[facility] CenterIn the event this information is protected by the Federal Confidentiality of Alcohol and Drug Abuse Patient Records regulations: The Federal rules restrict any use of the information to criminally investigate or prosecute any alcohol or drug abuse patient.[facility] CenterIn the event this information is protected by the Federal Confidentiality of Alcohol and Drug Abuse Patient Records regulations: The Federal rules restrict any use of the information to criminally investigate or prosecute any alcohol or drug abuse patient.[facility] CenterIn the event this information is protected by the Federal Confidentiality of Alcohol and Drug Abuse Patient Records regulations: The Federal rules restrict any use of the information to criminally investigate or prosecute any alcohol or drug abuse patient.[facility] CenterIn the event this information is protected by the Federal Confidentiality of Alcohol and Drug Abuse Patient Records regulations: The Federal rules restrict any use of the information to criminally investigate or prosecute any alcohol or drug abuse patient.[facility] CenterIn the event this information is protected by the Federal Confidentiality of Alcohol and Drug Abuse Patient Records regulations: The Federal rules restrict any use of the information to criminally investigate or prosecute any alcohol or drug abuse patient.[facility] CenterIn the event this information is protected by the Federal Confidentiality of Alcohol and Drug Abuse Patient Records regulations: The Federal rules restrict any use of the information to criminally investigate or prosecute any alcohol or drug abuse patient.[facility] CenterIn the event this information is protected by the Federal Confidentiality of Alcohol and Drug Abuse Patient Records regulations: The Federal rules restrict any use of the information to criminally investigate or prosecute any alcohol or drug abuse patient.[facility] CenterIn the event this information is protected by the Federal Confidentiality of Alcohol and Drug Abuse Patient Records regulations: The Federal rules restrict any use of the information to criminally investigate or prosecute any alcohol or drug abuse patient.[facility] CenterIn the event this information is protected by the Federal Confidentiality of Alcohol and Drug Abuse Patient Records regulations: The Federal rules restrict any use of the information to criminally investigate or prosecute any alcohol or drug abuse patient.[facility] CenterIn the event this information is protected by the Federal Confidentiality of Alcohol and Drug Abuse Patient Records regulations: The Federal rules restrict any use of the information to criminally investigate or prosecute any alcohol or drug abuse patient.[facility] CenterIn the event this information is protected by the Federal Confidentiality of Alcohol and Drug Abuse Patient Records regulations: The Federal rules restrict any use of the information to criminally investigate or prosecute any alcohol or drug abuse patient.[facility] CenterIn the event this information is protected by the Federal Confidentiality of Alcohol and Drug Abuse Patient Records regulations: The Federal rules restrict any use of the information to criminally investigate or prosecute any alcohol or drug abuse patient.[facility] CenterIn the event this information is protected by the Federal Confidentiality of Alcohol and Drug Abuse Patient Records regulations: The Federal rules restrict any use of the information to criminally investigate or prosecute any alcohol or drug abuse patient.[facility] CenterIn the event this information is protected by the Federal Confidentiality of Alcohol and Drug Abuse Patient Records regulations: The Federal rules restrict any use of the information to criminally investigate or prosecute any alcohol or drug abuse patient.[facility] CenterIn the event this information is protected by the Federal Confidentiality of Alcohol and Drug Abuse Patient Records regulations: The Federal rules restrict any use of the information to criminally investigate or prosecute any alcohol or drug abuse patient.[facility] CenterIn the event this information is protected by the Federal Confidentiality of Alcohol and Drug Abuse Patient Records regulations: The Federal rules restrict any use of the information to criminally investigate or prosecute any alcohol or drug abuse patient.[facility] CenterIn the event this information is protected by the Federal Confidentiality of Alcohol and Drug Abuse Patient Records regulations: The Federal rules restrict any use of the information to criminally investigate or prosecute any alcohol or drug abuse patient.[facility] CenterIn the event this information is protected by the Federal Confidentiality of Alcohol and Drug Abuse Patient Records regulations: The Federal rules restrict any use of the information to criminally investigate or prosecute any alcohol or drug abuse patient.[facility] CenterIn the event this information is protected by the Federal Confidentiality of Alcohol and Drug Abuse Patient Records regulations: The Federal rules restrict any use of the information to criminally investigate or prosecute any alcohol or drug abuse patient.[facility] CenterIn the event this information is protected by the Federal Confidentiality of Alcohol and Drug Abuse Patient Records regulations: The Federal rules restrict any use of the information to criminally investigate or prosecute any alcohol or drug abuse patient.[facility] CenterIn the event this information is protected by the Federal Confidentiality of Alcohol and Drug Abuse Patient Records regulations: The Federal rules restrict any use of the information to criminally investigate or prosecute any alcohol or drug abuse patient.[facility] CenterIn the event this information is protected by the Federal Confidentiality of Alcohol and Drug Abuse Patient Records regulations: The Federal rules restrict any use of the information to criminally investigate or prosecute any alcohol or drug abuse patient.[facility] CenterIn the event this information is protected by the Federal Confidentiality of Alcohol and Drug Abuse Patient Records regulations: The Federal rules restrict any use of the information to criminally investigate or prosecute any alcohol or drug abuse patient.[facility] CenterIn the event this information is protected by the Federal Confidentiality of Alcohol and Drug Abuse Patient Records regulations: The Federal rules restrict any use of the information to criminally investigate or prosecute any alcohol or drug abuse patient.[facility] CenterIn the event this information is protected by the Federal Confidentiality of Alcohol and Drug Abuse Patient Records regulations: The Federal rules restrict any use of the information to criminally investigate or prosecute any alcohol or drug abuse patient.[facility] CenterIn the event this information is protected by the Federal Confidentiality of Alcohol and Drug Abuse Patient Records regulations: The Federal rules restrict any use of the information to criminally investigate or prosecute any alcohol or drug abuse patient.[facility] CenterIn the event this information is protected by the Federal Confidentiality of Alcohol and Drug Abuse Patient Records regulations: The Federal rules restrict any use of the information to criminally investigate or prosecute any alcohol or drug abuse patient.[facility] CenterIn the event this information is protected by the Federal Confidentiality of Alcohol and Drug Abuse Patient Records regulations: The Federal rules restrict any use of the information to criminally investigate or prosecute any alcohol or drug abuse patient.[facility] CenterIn the event this information is protected by the Federal Confidentiality of Alcohol and Drug Abuse Patient Records regulations: The Federal rules restrict any use of the information to criminally investigate or prosecute any alcohol or drug abuse patient.[facility] CenterIn the event this information is protected by the Federal Confidentiality of Alcohol and Drug Abuse Patient Records regulations: The Federal rules restrict any use of the information to criminally investigate or prosecute any alcohol or drug abuse patient.[facility] the event this information is protected by the Federal Confidentiality of Alcohol and Drug Abuse Patient Records regulations: The Federal rules restrict any use of the information to criminally investigate or prosecute any alcohol or drug abuse patient.[facility] CenterIn the event this information is protected by the Federal Confidentiality of Alcohol and Drug Abuse Patient Records regulations: The Federal rules restrict any use of the information to criminally investigate or prosecute any alcohol or drug abuse patient.[facility] CenterIn the event this information is protected by the Federal Confidentiality of Alcohol and Drug Abuse Patient Records regulations: The Federal rules restrict any use of the information to criminally investigate or prosecute any alcohol or drug abuse patient.[facility] CenterIn the event this information is protected by the Federal Confidentiality of Alcohol and Drug Abuse Patient Records regulations: The Federal rules restrict any use of the information to criminally investigate or prosecute any alcohol or drug abuse patient.[facility] CenterIn the event this information is protected by the Federal Confidentiality of Alcohol and Drug Abuse Patient Records regulations: The Federal rules restrict any use of the information to criminally investigate or prosecute any alcohol or drug abuse patient.[facility] CenterIn the event this information is protected by the Federal Confidentiality of Alcohol and Drug Abuse Patient Records regulations: The Federal rules restrict any use of the information to criminally investigate or prosecute any alcohol or drug abuse patient.[facility] CenterIn the event this information is protected by the Federal Confidentiality of Alcohol and Drug Abuse Patient Records regulations: The Federal rules restrict any use of the information to criminally investigate or prosecute any alcohol or drug abuse patient.[facility] CenterIn the event this information is protected by the Federal Confidentiality of Alcohol and Drug Abuse Patient Records regulations: The Federal rules restrict any use of the information to criminally investigate or prosecute any alcohol or drug abuse patient.[facility] CenterIn the event this information is protected by the Federal Confidentiality of Alcohol and Drug Abuse Patient Records regulations: The Federal rules restrict any use of the information to criminally investigate or prosecute any alcohol or drug abuse patient.[facility] CenterIn the event this information is protected by the Federal Confidentiality of Alcohol and Drug Abuse Patient Records regulations: The Federal rules restrict any use of the information to criminally investigate or prosecute any alcohol or drug abuse patient.[facility] CenterIn the event this information is protected by the Federal Confidentiality of Alcohol and Drug Abuse Patient Records regulations: The Federal rules restrict any use of the information to criminally investigate or prosecute any alcohol or drug abuse patient.[facility] CenterIn the event this information is protected by the Federal Confidentiality of Alcohol and Drug Abuse Patient Records regulations: The Federal rules restrict any use of the information to criminally investigate or prosecute any alcohol or drug abuse patient.[facility] CenterIn the event this information is protected by the Federal Confidentiality of Alcohol and Drug Abuse Patient Records regulations: The Federal rules restrict any use of the information to criminally investigate or prosecute any alcohol or drug abuse patient.[facility] CenterIn the event this information is protected by the Federal Confidentiality of Alcohol and Drug Abuse Patient Records regulations: The Federal rules restrict any use of the information to criminally investigate or prosecute any alcohol or drug abuse patient.[facility] CenterIn the event this information is protected by the Federal Confidentiality of Alcohol and Drug Abuse Patient Records regulations: The Federal rules restrict any use of the information to criminally investigate or prosecute any alcohol or drug abuse patient.[facility] CenterIn the event this information is protected by the Federal Confidentiality of Alcohol and Drug Abuse Patient Records regulations: The Federal rules restrict any use of the information to criminally investigate or prosecute any alcohol or drug abuse patient.[facility] CenterIn the event this information is protected by the Federal Confidentiality of Alcohol and Drug Abuse Patient Records regulations: The Federal rules restrict any use of the information to criminally investigate or prosecute any alcohol or drug abuse patient.[facility] CenterIn the event this information is protected by the Federal Confidentiality of Alcohol and Drug Abuse Patient Records regulations: The Federal rules restrict any use of the information to criminally investigate or prosecute any alcohol or drug abuse patient.[facility] CenterIn the event this information is protected by the Federal Confidentiality of Alcohol and Drug Abuse Patient Records regulations: The Federal rules restrict any use of the information to criminally investigate or prosecute any alcohol or drug abuse patient.[facility] CenterIn the event this information is protected by the Federal Confidentiality of Alcohol and Drug Abuse Patient Records regulations: The Federal rules restrict any use of the information to criminally investigate or prosecute any alcohol or drug abuse patient.[facility] CenterIn the event this information is protected by the Federal Confidentiality of Alcohol and Drug Abuse Patient Records regulations: The Federal rules restrict any use of the information to criminally investigate or prosecute any alcohol or drug abuse patient.[facility] CenterIn the event this information is protected by the Federal Confidentiality of Alcohol and Drug Abuse Patient Records regulations: The Federal rules restrict any use of the information to criminally investigate or prosecute any alcohol or drug abuse patient.[facility] CenterIn the event this information is protected by the Federal Confidentiality of Alcohol and Drug Abuse Patient Records regulations: The Federal rules restrict any use of the information to criminally investigate or prosecute any alcohol or drug abuse patient.[facility] CenterIn the event this information is protected by the Federal Confidentiality of Alcohol and Drug Abuse Patient Records regulations: The Federal rules restrict any use of the information to criminally investigate or prosecute any alcohol or drug abuse patient.[facility] CenterIn the event this information is protected by the Federal Confidentiality of Alcohol and Drug Abuse Patient Records regulations: The Federal rules restrict any use of the information to criminally investigate or prosecute any alcohol or drug abuse patient.[facility] CenterIn the event this information is protected by the Federal Confidentiality of Alcohol and Drug Abuse Patient Records regulations: The Federal rules restrict any use of the information to criminally investigate or prosecute any alcohol or drug abuse patient.[facility] CenterIn the event this information is protected by the Federal Confidentiality of Alcohol and Drug Abuse Patient Records regulations: The Federal rules restrict any use of the information to criminally investigate or prosecute any alcohol or drug abuse patient.[facility] CenterIn the event this information is protected by the Federal Confidentiality of Alcohol and Drug Abuse Patient Records regulations: The Federal rules restrict any use of the information to criminally investigate or prosecute any alcohol or drug abuse patient.[facility] CenterIn the event this information is protected by the Federal Confidentiality of Alcohol and Drug Abuse Patient Records regulations: The Federal rules restrict any use of the information to criminally investigate or prosecute any alcohol or drug abuse patient.[facility] CenterIn the event this information is protected by the Federal Confidentiality of Alcohol and Drug Abuse Patient Records regulations: The Federal rules restrict any use of the information to criminally investigate or prosecute any alcohol or drug abuse patient.[facility] CenterIn the event this information is protected by the Federal Confidentiality of Alcohol and Drug Abuse Patient Records regulations: The Federal rules restrict any use of the information to criminally investigate or prosecute any alcohol or drug abuse patient.[facility] CenterIn the event this information is protected by the Federal Confidentiality of Alcohol and Drug Abuse Patient Records regulations: The Federal rules restrict any use of the information to criminally investigate or prosecute any alcohol or drug abuse patient.[facility] CenterIn the event this information is protected by the Federal Confidentiality of Alcohol and Drug Abuse Patient Records regulations: The Federal rules restrict any use of the information to criminally investigate or prosecute any alcohol or drug abuse patient.[facility] CenterIn the event this information is protected by the Federal Confidentiality of Alcohol and Drug Abuse Patient Records regulations: The Federal rules restrict any use of the information to criminally investigate or prosecute any alcohol or drug abuse patient.[facility] CenterIn the event this information is protected by the Federal Confidentiality of Alcohol and Drug Abuse Patient Records regulations: The Federal rules restrict any use of the information to criminally investigate or prosecute any alcohol or drug abuse patient.[facility] CenterIn the event this information is protected by the Federal Confidentiality of Alcohol and Drug Abuse Patient Records regulations: The Federal rules restrict any use of the information to criminally investigate or prosecute any alcohol or drug abuse patient.[facility] CenterIn the event this information is protected by the Federal Confidentiality of Alcohol and Drug Abuse Patient Records regulations: The Federal rules restrict any use of the information to criminally investigate or prosecute any alcohol or drug abuse patient.[facility] CenterIn the event this information is protected by the Federal Confidentiality of Alcohol and Drug Abuse Patient Records regulations: The Federal rules restrict any use of the information to criminally investigate or prosecute any alcohol or drug abuse patient.[facility] CenterIn the event this information is protected by the Federal Confidentiality of Alcohol and Drug Abuse Patient Records regulations: The Federal rules restrict any use of the information to criminally investigate or prosecute any alcohol or drug abuse patient.[facility] CenterIn the event this information is protected by the Federal Confidentiality of Alcohol and Drug Abuse Patient Records regulations: The Federal rules restrict any use of the information to criminally investigate or prosecute any alcohol or drug abuse patient.[facility] CenterIn the event this information is protected by the Federal Confidentiality of Alcohol and Drug Abuse Patient Records regulations: The Federal rules restrict any use of the information to criminally investigate or prosecute any alcohol or drug abuse patient.[facility] CenterIn the event this information is protected by the Federal Confidentiality of Alcohol and Drug Abuse Patient Records regulations: The Federal rules restrict any use of the information to criminally investigate or prosecute any alcohol or drug abuse patient.[facility] Goals (unrecognized section and content) Goals may be documented in a n alternate sectionGoals may be documented in an alternate section FOR RECORDS PERTAINING TO PATIENTS WHO ARE OR HAVE BEEN ENROLLED IN A CHEMICAL DEPENDENCY/SUBSTANCEABUSE PROGRAM, SOME INFORMATION MAY BE OMITTED. This clinical summary was aggregated from multiple sources. Caution should be exercised in using it in the provision of clinical care. This summary normalizes information from multiple sources, and as a consequence, information in this document may materially change the coding, format and clinical context of patient data. In addition, data may be omitted in some cases. CLINICAL DECISIONS SHOULD BE BASED ON THE PRIMARY CLINICAL RECORDS. [employer] [facility]. provides no warranty or guarantee of the accuracy or completeness of information in this document.
== END | disposition home or self-care (01) ==
LOC: CT 20:34
PROVIDERS: Visit Provider Family Medicine Geriatric Medicine
DX: S09.90XA Unspecified injury of head, initial encounter (principal); W19.XXXA Unspecified fall, initial encounter
CPT/HCPCS: 70450

== ENCOUNTER → 2024-12-18 | Outpatient (CLI) | payer MEDICARE, SELFPAY ==
[2024-12-18 16:21] LABS: Hematocrit 30.9 % (37-47); Hemoglobin 9.6 g/dL (12.0-15.0); Immature Granulocytes Count 0.240 X10^3/uL (0.0-0.0); Mean Corp Hgb Conc 31.1 g/dL (32-36); Mean Corpuscular Volume 87.0 fL (81-99); Mean Platelet Vol. 11.5 fl (6.2-12.0); NRBC Flagged by Analyzer 0 % (0-5); POSITIVE DIFFERENTIAL YES; Platelet Count 291 K/mm3 (150-450); RBC Distribution Width CV 16.3 % (11.6-14.6); RBC Distribution Width SD 52.1 fl (35.1-43.9); Red Blood Count 3.55 M/mm3 (4.2-5.4); White Blood Count 14.9 K/mm3 (4.4-11.0)
[2024-12-18 16:54] LABS: Differential Indicated SCAN CRITERIA MET
[2024-12-18 17:30] LABS: AST(SGOT) 13 U/L (<=31); Alanine Aminotransfer ALT/SGPT 10 U/L (<=34); Albumin, Serum 3.8 g/dL (3.4-4.8); Alkaline Phosphatase 115 U/L (35-104); Anion Gap 11 (5-15); BUN 16 mg/dL (4-19); BUN/Creat Ratio 18.1 RATIO (10-20); Calcium,Total 9.0 mg/dL (7.6-11.0); Carbon Dioxide 25.7 mmol/L (21.0-32.0); Chloride 105 mmol/L (98-108); Cholesterol 156 mg/dL (<=200); Globulin 3.1 g/dL (2.2-4.2); Glucose 95 mg/dL (70-99); Hepatitis C Antibody Nonreactive (Nonreactive); Low Density Lipoprotein Calc. 73 mg/dL; Potassium 4.5 mmol/L (3.3-5.1); Triglycerides 200 mg/dL; Very Low Density Lipoprotein 40 mg/dL (5-40); Vitamin D,25 Hydroxy 29.2 ng/mL (30-100); cholesterol:hdl ratio screen 3.64
[2024-12-18 18:54] LABS: Neutrophil-Segmented 43 % (47-70); Total Cells Counted 100 (MANUAL DIFF)
[2024-12-18 19:17] LABS: Scan Smear per Review Criteria MANUAL DIFF
== END | disposition home or self-care (01) ==
LOC: POLAB3 15:40
PROVIDERS: PCP Family Medicine Geriatric Medicine; Visit Provider Family Medicine Geriatric Medicine
DX: F33.42 Major depressive disorder, recurrent, in full remission (principal); D64.9 Anemia, unspecified; E03.9 Hypothyroidism, unspecified; E55.9 Vitamin D deficiency, unspecified; Z13.89 Encounter for screening for other disorder
CPT/HCPCS: 36415; 80053; 80061; 82306; 84443; 85025; 86803

== ENCOUNTER → 2024-12-25 | Outpatient (CLI) | payer MEDICARE, SELFPAY | END | disposition home or self-care (01) | LOC: LABSPEC 11:12 | PROVIDERS: PCP Family Medicine Geriatric Medicine; Visit Provider Family Medicine Geriatric Medicine | DX: D64.9 Anemia, unspecified (principal) | CPT/HCPCS: 82274 ==

== ENCOUNTER → 2025-01-05 | Outpatient (CLI) | payer MEDICARE, SELFPAY ==
--- NOTE | 2025-01-05 19:13 | CT_ITS ---
PROCEDURE: SPINE CERVICAL WITHOUT CONTRAS 01/05/2025 REASON FOR EXAM: NECK PAIN One-month history of neck pain. TECHNIQUE: SPINE CERVICAL WITHOUT CONTRAS Coronal and Sagittal reconstruction series were provided. One or more dose reduction techniques were used (e.g., Automated exposure control, adjustment of the mA and/or kV according to patient size, use of iterative reconstruction technique. RADIATION DOSE SUMMARY: CTDlvol: 11.98 mGy DLP: 205.68 mGycm COMPARISON: Prior radiographs dated November 30, 2024. FINDINGS: Alignment: Normal alignment. Vertebrae: Vertebral heights are well-maintained. Soft Tissues: Unremarkable. Other: Increased markings at the lung apices more pronounced on the right side suggestive of scarring. C1-2: Degenerative changes of the atlantal axial joint. C2-3: Facet joint osteoarthritis. This is more pronounced on the right side. No significant stenosis seen. C3-4: Mild degree of disc space narrowing. Facet joint osteoarthritis and hypertrophy. No significant stenosis seen. C4-5: Mild degree of disc space narrowing. Facet joint osteoarthritis and hypertrophy. Uncovertebral arthrosis. Mild degree of bilateral neural foraminal stenosis. C5-6: Moderate degree of disc space narrowing. Facet joint osteoarthritis and hypertrophy. Uncovertebral arthrosis. Bilateral neural foraminal stenosis. C6-7: Moderate degree of disc space narrowing. Facet joint osteoarthritis. Uncovertebral arthrosis. Mild degree of bilateral neural foraminal stenosis. C7-T1: Unremarkable CT/Spine Cervical without Contras IMPRESSION: DEGENERATIVE CHANGES OF THE CERVICAL SPINE. NO EVIDENCE OF SIGNIFICANT OSSEOUS CENTRAL CANAL OR NEURAL FORAMINAL STENOSIS. Reading Location: [facility]
== END | disposition home or self-care (01) ==
LOC: CT 19:09
PROVIDERS: PCP Family Medicine Geriatric Medicine; Referring Provider Family Medicine Geriatric Medicine; Visit Provider Family Medicine Geriatric Medicine
DX: M54.2 Cervicalgia (principal)
CPT/HCPCS: 72125

== ENCOUNTER → 2025-01-06 | Outpatient (CLI) | payer MEDICARE, SELFPAY ==
[2025-01-06 15:02] LABS: Barbiturate Urine NEGATIVE (< 200 ng/mL); Benzodiazepine Urine NEGATIVE (< 200 ng/mL); PCP Urine NEGATIVE (< 25 ng/mL); THC Urine NEGATIVE (< 50 ng/mL)
== END | disposition home or self-care (01) ==
LOC: LAB 12:34
PROVIDERS: PCP Family Medicine Geriatric Medicine; Referring Provider Anesthesiology Pain Medicine; Visit Provider Anesthesiology Pain Medicine
DX: F11.20 Opioid dependence, uncomplicated (principal)
CPT/HCPCS: 80307

== ENCOUNTER → 2025-02-06 | Outpatient (CLI) | payer MEDICARE, SELFPAY ==
--- NOTE | 2025-02-05 13:11 | ST.MBS ---
Modified Barium Swallow Patient Information Study Date: 02/06/25 Study Time: 09:30 Direct Billable Minutes: 103 Total Minutes procedure & reportin Diagnosis: Dysphagia R13.10 Referring Physician: Ramana Tsai Chi Reason for Referral: Objectively assess swallow function, assess risk for aspiration, and determine recommendations for least restrictive diet textures and compensatory strategies to improve safety of swallow. Medical History: Recent stay on TCU after hospitalization for failure to thrive, intractable neck pain, and recent lumbar spine surgery followed by TCU admission for debility. She participated in speech therapy from 12/03/2024-12/12/2024 for cognitive-communication impairment. Pt was referred for ST following her stay on TCU. Pt confided in ST about swallowing difficulty, and her [employer] referred her for this MBSS. Patient reports swallowing difficulty for a little less than year. She reports sensation of pharyngeal retention w/ foods and drinks, some coughing w/ po intake, occ regurgitation. She will eat most foods, but meats she has to cut into very small bites. Her swallowing difficulty is frequent and occurs w/ most meals. ~3-4 years ago she had a choking episode w/ salad 1X and w/ cantaloupe 1X, stating she inhaled while eating them. She did not require the Heimlich either time, but had much coughing and labored breathing. Pt denied hx of GI diagnoses, but PMH does show chronic GERD and gastroenteritis. She follows w/ Dr. Abdalla for management of anemia. She reports hx of PNA 2X this year. Medical History (Updated 01/02/25 @ 17:[address] 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 Pain in right hip Infection due to Norovirus species Vitamin D deficiency Severe malnutrition Gastroenteritis and colitis, viral Stress incontinence in female Bursitis of hip, right Postsurgical hypothyroidism Adjustment disorder with mixed anxiety and depressed mood Anxiety associated with depression Spinal stenosis of lumbar region Thyrotoxicosis Osteopenia of multiple sites Atrophy of vagina Major depressive disorder Low back pain Urgency of urination Myalgia Osteoporosis of lumbar spine Migraines Chronic GERD without esophagitis GERD (gastroesophageal reflux disease) Hysterectomy planned Colonoscopy planned Surgical History (Updated 12/13/24 @ 00:01 by Juanjose Oliveria) History of arthroplasty of right ankle History of thyroidectomy, total History of nephrectomy, right History of total hip replacement Hx of esophagogastroduodenoscopy Hx of cholecystectomy History of back surgery Current Diet Ordered: Regular (meats bite size) / Thin Mental Status: WNL Respiratory Status: Oxygenating on Room Air Penetration-Aspiration Scale Penetration-Aspiration Scale: OBJECTIVE ASSESSMENT OF SWALLOW FUNCTION (QUANTITATIVE ? PER TRIAL): PENETRATION / ASPIRATION SCALE (CHO): 1 = does not enter airway 2 = enters airway/above vocal folds/ejected 3 = enters airway/above vocal folds/not ejected 4 = enters airway/contacts vocal folds/ejected 5 = enters airway/contacts vocal folds/not ejected 6 = enters airway/below vocal folds/ejected 7 = enters airway/below vocal folds/not ejected despite effort 8 = enters airway/below vocal folds/no effort VIDEOFLOROSCOPIC SCALE SCORE (CHO): Grade I = aspiration of material that has penetrated into the laryngeal vestibule, intact cough reflex Grade II = aspiration < 10 % of the bolus, intact cough reflex Grade III = aspiration of < 10 % of the bolus, reduced cough reflex or aspiration of > 10 % of the bolus, intact cough reflex Grade IV = aspiration of > 10 % of the bolus, reduced cough reflex Penetration-Aspiration Scale Score Thin Liquid via teaspoon: Result: 2= enter airway/above vocal folds/ejected Thin Liquid via teaspoon Trial 2: Result: 1= does not enter airway Thin Liquid via small single sip: cup: Result: 5= enters airways/contacts vocal folds/not ejected Thin Liquid via small single sip: cup Effortful swallow: Result: 1= does not enter airway Robinhood Thick Liquid via small single sip: cup: Result: 1= does not enter airway Pudding via teaspoon: Result: 1= does not enter airway Comment: Post prandial aspiration of residues on vocal folds from previous penetrated trial; however, reflexive cough cleared the trachea of contrast. Trace residue remained on the vocal folds. Esophageal screen - Retention of pudding throughout the esophagus. Thin Liquid via small single sip: cup Effortful swallow Trial 2: Result: 2= enter airway/above vocal folds/ejected Comment: Cued cough and re-swallow to clear the vocal folds of penetrated barium from previous trials. Esophageal screen - Liquid wash somewhat cleared pudding retention. Thin Liquid via small single sip: cup Effortful swallow Trial 3: Result: 1= does not enter airway Comment: Esophageal screen - Second liquid wash did not further clear pudding retention. 1/2 Cookie: Result: 1= does not enter airway Comment: Esophageal screen - Retention of cookie throughout the esophagus. Thin Liquid via single sip: straw Effortful swallow: Result: 3= enters airways/above vocal folds/not ejected Comment: Penetrated barium progressed to the vocal folds prior to swallowing the next trial. Esophageal screen - Liquid wash somewhat cleared cookie retention. Thin Liquid via small single sip: cup Effortful swallow Trial 4: Result: 2= enter airway/above vocal folds/ejected Comment: Esophageal screen - Second liquid wash did not further clear cookie retention. Barium tablet in pudding: Result: 1= does not enter airway Comment: Barium tablet did not clear the oral cavity Barium tablet w/ thin water via single cup sip and effortful swallow: Result: 1= does not enter airway Comment: Esophageal screen - Complete clearance of barium tablet. Continued residues in the esophagus from earlier trials. Oral Phase Labial Seal: Interlabial escape, no progression to anterior lip Tongue Control During Bolus Hold: Escape to lateral buccal cavity/floor of mouth Bolus Preparation/Mastication: Timely and efficient chewing and mashing Bolus Transport/Lingual Motion: Slowed tongue motion Oral Residue: Majority of bolus remaining Pharyngeal Phase Initiation of Pharyngeal Swallow: Bolus head in pyriforms Soft Palate Elevation: Trace column of contrast/air between soft palate and pharyngeal wall Laryngeal Elevation: Partial superior movement thyroid cart/partial apprx aryt-epig petiole Anterior Hyoid Excursion: Partial anterior movement Epiglottic Movement: Partial inversion Laryngeal Vestibule Closure at Height of Swallow: Incomplete; narrow column of air/contrast in laryngeal vestibule Pharyngeal Stripping Wave: Present - diminished Pharyngoesophageal Segment Opening: Complete distension and complete duration; no obstruction of flow Tongue Base Retraction: Narrow column of contrast between tongue base & post. pharyngeal wall Pharyngeal Residue: Collection of residue within or on pharyngeal structures Esophageal Phase Esophageal Clearance: Esophageal retention w/ retrograde flow below pharyngoesophageal seg. Diagnosis/Impression Diagnosis: Moderate oropharyngeal dysphagia R13.12; Esophageal dysphagia R13.14 MBS Impressions: The oral phase is primarily marked by... -Piecemeal deglutition of cookie. Pt admitted to being hesitant to swallow when [employer] encouraged her to swallow larger amounts at a time to clear cookie from the oral cavity. -Slowed tongue motion for A-P transport. -Liquid required for oral clearance of barium tablet. No oral clearance when trialed in pudding. The pharyngeal phase is primarily marked by... -Decreased pharyngeal motility due to decreased TB retraction and pharyngeal stripping wave w/ mild pharyngeal residue of cookie. -Decreased airway closure during the swallow due to decreased anterior hyoid excursion, decreased laryngeal elevation, and partial epiglottic inversion. -Deep laryngeal penetration of thin liquids via cup and thin liquids via straw w/ effortful swallow that did not fully eject. Post prandial aspiration of these liquid residues 1X, which were somewhat ejected w/ reflexive cough. Use of effortful swallow and no straws was most beneficial to decrease risk for aspiration w/ liquids. The esophageal phase is primarily marked by... -Retention of pudding and cookie throughout the esophagus, which somewhat cleared w/ one liquid wash. Additional liquid wash did not effectively clear the boluses through the LES. Recommendations Diet: Regular Textures (Meats cut into small bites, moisten dry textures) and Thin Liquids Comment: Frequent oral care Meds whole w/ water, 1 sip at a time, HARD SWALLOWS If sensation of retention despite use of liquid washes, please hold meal and resume at a later time Compensatory Strategies: Small Bites, Small Sips (HARD SWALLOWS EACH SIP), No Straws, Slow Rate (Sips 1 at a time), Alternate bites/solids and sips/liquids (1-2 sips after each bite) and Sitting upright (During and 60min after po intake) Recommend Repeat Modified Barium Swallow: TBD Need for Skilled Speech Therapy Services: Yes Comment: -Train the patient in strategies to decrease risk for aspiration and reflux aspiration. -Ongoing assessment of diet tolerance. -Train the patient in oropharyngeal exercises to improve TB retraction, pharyngeal motility, and airway closure (Kylie, effortful, CTAR, Kem). 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 Abdalla) Education Completed: 1. Described result of evaluation., 2. Pt understands evaluation & agrees with goals and treatment plan. and 7. Pt requires further education on strategies & risks. Status Active ST Patient: Active Contact Information [facility] Speech Therapy:: Alexandra Osman M.A. [facility] Speech-Language Pathologist [facility] [address] [place] [address] [email or web address] [phone]
== END | disposition home or self-care (01) ==
LOC: RAD 09:26
PROVIDERS: PCP Family Medicine Geriatric Medicine; Referring Provider Family Medicine Geriatric Medicine; Visit Provider Family Medicine Geriatric Medicine
DX: R13.10 Dysphagia, unspecified (principal)
CPT/HCPCS: 74230; 92611

== ENCOUNTER → 2025-05-12 | Outpatient (CLI) | payer MEDICARE, SELFPAY ==
--- NOTE | 2025-05-12 12:11 | RAD_ITS ---
PROCEDURE: LUMBAR SPINE 2 OR 3 VIEWS 05/12/2025 REASON FOR EXAM: LUMBAR RADICULOPATHY TECHNIQUE: Procedure Code: RADSPLL Modality: DX Procedure: LUMBAR SPINE 2 OR 3 VIEWS COMPARISON: December 03, 2024 FINDINGS: There is a stimulator on the right with a wire at the right sacrum. Surgical clips are present. Laminectomy changes are present. Hardware is noted in the lumbar spine from L2-5 which appears intact. There is grade 1 spondylolisthesis at L3-4, 0.6 cm. There is grade 1 spondylolisthesis at L4-5, 0.5 cm. There is loss of disc height which is most severe at L5-S1. Osteopenia is noted. There is no visible atherosclerosis. RAD/Lumbar Spine 2 or 3 Views IMPRESSION: Hardware is noted in the lumbar spine from L2-5 which appears intact. There is grade 1 spondylolisthesis at L3-4, 0.6 cm. There is grade 1 spondylol isthesis at L4-5, 0.5 cm. There is loss of disc height which is most severe at L5-S1. Reading Location: [facility]
== END | disposition home or self-care (01) ==
LOC: RAD 11:53
PROVIDERS: PCP Family Medicine Geriatric Medicine; Referring Provider Anesthesiology; Visit Provider Anesthesiology
DX: M54.16 Radiculopathy, lumbar region (principal)
CPT/HCPCS: 72100

== ENCOUNTER → 2025-05-18 | Outpatient (CLI) | payer MEDICARE, SELFPAY | END | disposition home or self-care (01) | LOC: POLAB3 13:38 | PROVIDERS: PCP Family Medicine Geriatric Medicine; Visit Provider Family Medicine Geriatric Medicine | DX: R06.2 Wheezing (principal) | CPT/HCPCS: 87631 ==